=== PATIENT | female | born 1945 | race Caucasian/White ===

== ENCOUNTER → 2020-02-29 13:24 | Outpatient (BNV) | payer MEDICARE, SELFPAY | PROVIDERS: PCP Internal Medicine; Visit Provider Internal Medicine | DX: D64.9 Anemia, unspecified (principal); C50.411 Malignant neoplasm of upper-outer quadrant of right female breast; R79.89 Other specified abnormal findings of blood chemistry | CPT/HCPCS: 99212; 99213; 99214; 99215; 99442; G2211 ==

== ENCOUNTER 2020-03-08 16:06 | Outpatient (REF) | payer MEDICARE, SELFPAY ==
--- NOTE | 2020-03-08 | MM_ITS ---
EXAMINATION: MM SCREENING DIGITAL BREAST TOMOSYNTHESIS, BILATERAL CLINICAL INFORMATION: Screening. Asymptomatic. The lifetime risk of breast cancer based on the Tyrer-Cuzick Model is 6%. COMPARISON: Mammography: 01/09/2019, 01/07/2018, 12/25/2016, 07/01/2014 TECHNIQUE: Digital breast tomosynthesis is performed in both the craniocaudal and mediolateral oblique views along with computer-aided detection (CAD). Synthesized 2D images are generated from the tomosynthesis. FINDINGS: There are scattered areas of fibroglandular density (ACR BI-RADS breast composition Category b). Parenchymal pattern is similar to prior studies. There is no interval mass or architectural abnormality. Right retroareolar duct ectasia is stable from prior studies. There is no developing density. Scattered benign round predominantly dermal calcifications are again noted. The axilla and skin contours are unremarkable. MM/MM tomosynthesis screening BI IMPRESSION: No significant changes from prior studies. ASSESSMENT: BI-RADS 2: Benign RECOMMENDATION: Routine annual mammography screening. This patient's information was entered into a reminder system with a target due date for their next mammogram.
== END 2020-03-08 16:07 | disposition home or self-care (01) ==
LOC: HO.MAMMO 16:06
PROVIDERS: Visit Provider Internal Medicine
DX: Z12.31 Encounter for screening mammogram for malignant neoplasm of breast (principal)
CPT/HCPCS: 77063; 77067

== ENCOUNTER → 2020-04-12 13:32 | Outpatient (BNVA) | payer MEDICARE, SELFPAY | PROVIDERS: PCP Internal Medicine; Visit Provider Orthopaedic Surgery | DX: M75.42 Impingement syndrome of left shoulder (principal) | CPT/HCPCS: 20610; 99212; J1040 ==

== ENCOUNTER → 2020-04-26 13:09 | Outpatient (BNVA) | payer MEDICARE, SELFPAY | PROVIDERS: Visit Provider Orthopaedic Surgery | DX: M70.61 Trochanteric bursitis, right hip (principal) | CPT/HCPCS: 99212 ==

== ENCOUNTER 2020-05-26 15:00 | Outpatient (RCR) | payer MEDICARE, SELFPAY ==
--- NOTE | 2020-05-05 14:44 | MHC.PT.EP ---
[facility] [place] Office [place] Office [place] Office [address] Ute Lemons [address] [phone] F: [phone] F: [phone] F: [phone] F: [phone] Physical Therapy Plan of Care Date of Evaluation: 05/05/20 Date of Surgery: Diagnosis: This is a 74 yo female presenting to skilled PT with a script for trochanteric bursitis R hip. Assessment: This is a 74 yo female presenting to skilled PT with a script for trochanteric bursitis R hip. This patient is being seen [place] [facility] [place] for about 6 months. She has had R sided hip pain that travels down the lateral aspect of the leg into the lateral aspect of the calf on occasion. Pain is worse in the AM/getting out of the bed, lying on the R side, and transfers out of sitting after extended periods of time. Her pain is described as constant and achy. The patient reports that the MD dx'd her with bursitis and would like PT to try iontophoresis. If pain does not resolve they will try an injection. She is I in ADLs but has to use a straight cane now for ambulation and stability. Assessment reveals pain that ranges 2-6/10 with prolonged positioning. She demos slight impairments in lumbar ROM, decreased hip MMT (not due to pain), very tender along ITB and demos tight tissue at lateral hip. She is functionally limited with normal ambulation, transfers and lying on the R. She is a good candidate for skilled PT 2x/wk for 5wks. Frequency and Duration: The patient will be seen 2x/wk for 5wks Short Term Goals: I in HEP Patient's symptoms will centralize Will report/tolerate lying on her R side without pain at night Prison Goals: Demo WFL hip ROM and strength without pain Demo proper squatting techniques Report no pain with functional tasks including walking and stairs Improve LEFs by 10 points Will be able to ambulate without relying on cane Treatment Plan: Modalities to reduce pain, spasms and effusion. Manual therapy to restore motion and function. Therapeutic exercise to improve strength and flexibility. Neuromuscular re-education for posture and balance. Therapeutic activities to return to functional activities of daily living. Electronically signed by: Doreen Villasenor PT Please sign and return to therapist. Thank you for your referral.
--- NOTE | 2020-10-17 12:27 | MHC.PT.DC ---
[facility] [place] Office [place] Office [place] Office [address] Ute Lemons [address] [phone] F: [phone] F: [phone] F: [phone] F: [phone] Physical Therapy Discharge Report Diagnosis: This is a 74 yo female presenting to skilled PT with a script for trochanteric bursitis R hip. Date of Surgery: Date of Evaluation: 05/05/20 Date of Discharge: 10/17/20 Treatments to Date: 6 Cancellations to Date: 0 No Shows to Date: 0 Discharge Status: Improved Function Independent with HEP Patient Elected to Stop Recommend MD Follow-up Discharge Summary: We discussed how therapy has been helping and how she is feeling in general. She feels about 25% better but continues to have similar symptoms at times based on last tx note. I educated her that we will trial 2 more sessions and then refer back to MD for further evaluation and she is in agreement however patient did not return for further tx. DC to HEP Electronically signed by: Doreen Villasenor PT Please sign and return to therapist. Thank you for your referral.
== END 2020-10-17 12:28 | disposition home or self-care (01) ==
LOC: HO.PTCHIC 15:00
PROVIDERS: PCP Internal Medicine; Visit Provider Orthopaedic Surgery
DX: M70.61 Trochanteric bursitis, right hip (principal)
CPT/HCPCS: 97033; 97110; 97140; 97162

== ENCOUNTER → 2020-09-29 14:36 | Outpatient (BNVA) | payer MEDICARE, SELFPAY | PROVIDERS: PCP Internal Medicine; Visit Provider Internal Medicine Cardiovascular Disease | DX: R06.02 Shortness of breath (principal); I50.20 Unspecified systolic (congestive) heart failure; I42.9 Cardiomyopathy, unspecified; I10 Essential (primary) hypertension; Z79.899 Other long term (current) drug therapy | CPT/HCPCS: 93005; 99212 ==

== ENCOUNTER → 2020-10-11 12:52 | Outpatient (REF) | payer MEDICARE, SELFPAY ==
--- NOTE | 2020-10-11 12:55 | CA_ITS ---
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 The visually estimated ejection fraction is between 55-60%. - No obvious valvular pathology seen on this study. - Small pericardial effusion seen, most prominent posterior to the left ventricle. Findings Left Ventricle Normal left ventricular cavity size. There is normal left ventricular wall thickness. The left ventricular systolic function is normal. The visually estimated ejection fraction is between 55-60%. E/E prime ratio is >15, consistent with elevated filling pressures. Evidence suggests grade I (mild) diastolic dysfunction. Right Ventricle Normal right ventricular cavity size and systolic function. Atria Both atria are normal in size. Aortic Valve There is a normal trileaflet aortic valve. There is mild calcification of the aortic valve. There is no aortic valve stenosis. There is mild aortic valve regurgitation. Mitral Valve The mitral valve appears normal. There is trace mitral valve regurgitation. There is no mitral valve stenosis. Pulmonic Valve The pulmonic valve was not well visualized. Tricuspid Valve Normal tricuspid valve structure. There is trace tricuspid valve regurgitation. The pulmonary artery systolic pressure is normal. Great Vessels The asc aorta and aortic arch are normal in size. Venous The inferior vena cava is normal in size and collapses greater than 50% with inspiration. Pericardium/Pleural There are no definitive echocardiographic findings of tamponade physiology. Small pericardial effusion seen, most prominent posterior to the left ventricle. Prior Study Comparison Changes noted compared to prior study dated: 03/03/2019. LVEF improved. Pericardial effusion not previously described. Recommendations, Care & Conclusions No obvious valvular pathology seen on this study. Measurements M-Mode Liner Measurements Normals - Women/Men AOV Cusps: 1.70 1.5-2.6 cm/m2 2D Linear Measurements IVSd: 0.89 0.6-0.9/0.6-1.0 cm LVIDd: 5.12 3.9-5.3/4.2-5.9 cm LVIDd Index: 3.26 2.4-3.2/2.2-3.1 cm/m2 LVIDs: 4.18 2.0-3.6 cm LVPWd: 0.69 0.7-1.1 cm Ao Root: 3.40 2.1-3.5 cm LA Diam: 3.50 2.7-3.8/3.0-4.0 cm LAIDs Index: 2.23 1.5-2.3 cm/m2 LV Mass: 173.49 67-162/88-224 g LV Mass Index: 110.50 43-95/49-115 g/m2 LVOT Diam: 2.00 3.0+(-)1.3 cm 2D Systolic Function EF 4C: 56.80 >55% EF 2C: 57.40 >55% Mitral Valve MV Pk E: 0.63 MV PK A: 0.95 MV Decel Time: 336.00 E/A: 0.70 E'Lateral: 4.35 E'Medial: 3.92 E/E' Med: 16.10 E/E' Lat: 14.50 PHT: 99.00 MVA PHT: 2.22 Decel Kimble: 1.87 Aortic Valve AoV Pk Dex: 1.89 AoV Mn Dex: 1.39 AoV VTI: 0.42 AoV Pk Grad: 14.00 Aov Mn Grad: 8.00 LUCAS Cont.VTI: 1.34 AI Pk Dex: 4.85 AI Kimble: 2.32 LVOT LVOT Pk Dex: 0.87 LVOT Mn Dex: 0.58 LVOT VTI: 0.18 LVOT Pk Grad: 3.00 LVOT Mn Grad: 2.00 LVOT Diam: 2.00 LVOT Area: 3.14 Diastolic Function MV Pk E: 0.63 MV Pk A: 0.95 E/A: 0.70 E'Medial: 3.92 E/E' Med: 16.10 E' Laterial: 4.35 E/E' Lat: 14.50 Tricuspid Valve RA Press: 3.00 Great Vessels Aorta Ao Root-2D: 3.40 2.0-3.7 cm Ao Asc: 3.70 2.1-3.4 cm Ao Arch: 2.70 Pulmonary Valve PV Pk Dex: 1.06 Peak PV Grad: 4.00 Updated in Other Vendor System with Status of Final Alexander Matias MD electronically signed on 10/12/2020 8:15:42 AM with status of Final
== END ==
LOC: HO.CARD 12:52
PROVIDERS: Visit Provider Nurse Practitioner Family
DX: I42.9 Cardiomyopathy, unspecified (principal); R06.02 Shortness of breath
CPT/HCPCS: 93306

== ENCOUNTER → 2020-10-12 10:48 | Outpatient (BNVA) | payer MEDICARE, SELFPAY | PROVIDERS: Visit Provider Orthopaedic Surgery | DX: M70.61 Trochanteric bursitis, right hip (principal); M25.551 Pain in right hip; I11.0 Hypertensive heart disease with heart failure; I50.20 Unspecified systolic (congestive) heart failure; E11.65 Type 2 diabetes mellitus with hyperglycemia; E20.9 Hypoparathyroidism, unspecified; E89.0 Postprocedural hypothyroidism; Z90.49 Acquired absence of other specified parts of digestive tract; Z88.8 Allergy status to other drugs, medicaments and biological substances | CPT/HCPCS: 20610; 99212; J1040 ==

== ENCOUNTER → 2020-10-18 13:45 | Outpatient (BNVA) | payer MEDICARE, SELFPAY | PROVIDERS: PCP Internal Medicine; Visit Provider Nurse Practitioner Family | DX: Z13.89 Encounter for screening for other disorder (principal) | CPT/HCPCS: Q3014 ==

== ENCOUNTER 2021-01-24 15:33 | Emergency (ER) | payer MEDICARE, SELFPAY ==
--- NOTE | 2021-01-24 09:07 | ECG_ITS ---
Test Reason : WEAKNESS Blood Pressure : / mmHG Vent. Rate : 085 BPM Atrial Rate : 085 BPM P-R Int : 168 ms QRS Dur : 100 ms QT Int : 408 ms P-R-T Axes : -03 -18 124 degrees QTc Int : 485 ms Normal sinus rhythm Cannot rule out Anterior infarct , age undetermined ST & T wave abnormality, consider lateral ischemia Abnormal ECG When compared with ECG of 24-SEP-2017 11:31, Minimal criteria for Anterior infarct are now Present T wave inversion more evident in Lateral leads Referred By: Ysabel Tobias Electronically Signed By:NIRALI MO
[2021-01-24 15:55] VITALS: BP 124/52; PULSE 86; RESP 22; TEMP 37.5; O2SAT 94; BMI 24.5
[2021-01-24 16:06] VITALS: BP 124/52; PULSE 86; RESP 22; TEMP 37.5; O2SAT 93
--- NOTE | 2021-01-24 16:07 | ED_ITS ---
HPI - General Adult General Chief complaint: General Medical Stated complaint: fever Time Seen by Provider: 01/24/21 15:55 Source: patient Mode of arrival: ambulatory Limitations: no limitations History of Present Illness HPI narrative: 75-year-old female with history of hereditary spherocytosis and anemia requiring blood transfusion, cardiomyopathy with heart failure with reduced EF, hypertension who presents to the ER from Heme-Onc office with nausea vomiting and fever after she was transfused a unit of packed red blood cells. She reports that her lifetime she has gotten about 15 units of blood. The last unit of blood she got was back in April 2020. She never had an adverse reaction to transfusion in the past. She was getting ready to be discharged when she suddenly felt nauseous and vomited. She was noted to have a fever 101.5. She felt unwell and daughter reports she was pale. Tylenol and brought to the emergency room for further evaluation.. On arrival to the ER patient is feeling much better. Her temperature is 99 degrees. She is asking to eat and drink. She denies shortness of breath or chest pains. No rash or facial swelling. MD complaint: Vomiting and fever after blood transfusion. Onset (ago): minute(s) Radiation: non-radiation Severity: moderate Pain Consistency: intermittent Relieving factors: medication Exacerbating factors: none Associated symptoms: denies other symptoms Treatments prior to arrival: other (tylenol) Related Data Home Medications Medication Instructions Recorded Confirmed aspirin 81 mg tablet,delayed 81 mg PO DAILY 02/29/20 01/17/21 release cholecalciferol (vitamin D3) 50 50 mcg PO DAILY 02/29/20 01/17/21 mcg (2,000 unit) tablet (Vitamin D3) cyanocobalamin (vitamin B-12) 5,000 mcg PO BEDTIME 02/29/20 01/17/21 5,000 mcg disintegrating tablet folic acid 1 mg tablet 1 mg PO DAILY 02/29/20 01/17/21 levothyroxine 100 mcg tablet 100 mcg PO DAILY 02/29/20 01/17/21 vitamin E 400 unit tablet 450 mg PO DAILY 02/29/20 01/17/21 allopurinol 300 mg tablet 300 mg PO DAILY 09/29/20 01/17/21 carvedilol 6.25 mg tablet 6.25 mg PO BID 09/29/20 01/17/21 furosemide 20 mg tablet 20 mg PO DAILY tab 09/29/20 01/17/21 gabapentin 100 mg capsule 100 mg PO BID 09/29/20 01/17/21 lisinopril 10 mg tablet 10 mg PO DAILY 09/29/20 01/17/21 metformin 500 mg tablet 500 mg PO BID 09/29/20 01/17/21 rosuvastatin 20 mg tablet 20 mg PO BEDTIME 09/29/20 01/17/21 Allergies Allergy/AdvReac Type Severity Reaction Status Date / Time esomeprazole [From NEXIUM] Allergy Intermediate CHEST PAIN Verified 01/17/21 11:25 omeprazole [From PRILOSEC] Allergy Intermediate CHEST PAIN Verified 01/17/21 11:25 Review of Systems Review of Systems: Constitutional: + Fever, No Chills ENT/Mouth: No sore throat, No Rhinorrhea, No Swallowing Difficulty Cardiovascular: No Chest Pain, No SOB, No Orthopnea, No Edema Respiratory: No Cough, No Sputum, No Wheezing, No dyspnea Gastrointestinal: + Nausea, + Vomiting, No Diarrhea, No abdominal Pain, No Hematochezia, No Melena Genitourinary: No Dysuria, No Urinary Frequency, No Hematuria Musculoskeletal: No joint pain, No Myalgias Skin: No Skin Lesions, No rash Neuro: No Weakness, No Numbness, No Dizziness, No Headache Psych: No Anxiety/Panic, No Depression Heme/Lymph: No Bruising, No Lymphadenopathy PMFSH Past Medical History Medical History Cardiomyopathy Chronic anemia Diverticulosis GERD (gastroesophageal reflux disease) HFrEF (heart failure with reduced ejection fraction) HTN (hypertension) Hyperglycemia Hypoparathyroidism Irritable bowel syndrome Nephrolithiasis Normal colonoscopy Papillary thyroid carcinoma Polymyalgia rheumatica Pulmonary emboli Type 2 diabetes mellitus Surgical History H/O endoscopy H/O total thyroidectomy History of cholecystectomy Family History Family History Sister CHF (congestive heart failure) Daughter Breast cancer Son Kidney stones Social History Social History Alcohol intake: former Patient Tobacco Use Status: Former Tobacco user Cigarette Packs Per Day: 1 Advance Directives: No Advance Directives Information Provided: No Current occupation: Right Handed Physical Exam Vital Signs: Vital Signs: Last Vital Signs Temp 99.5 F 01/24/21 16:06 Pulse 86 01/24/21 16:06 Resp 22 H 01/24/21 16:06 BP 124/52 L 01/24/21 16:06 Pulse Ox 93 01/24/21 16:06 Body Mass Index 24.5 Appearance: Alert. Oriented X3. No acute distress. Eyes: Pupils equal, round and reactive to light. ENT: Pharynx normal. Neck: Normal inspection. Neck supple. CVS: Normal heart rate and rhythm. Pulses normal. Respiratory: No respiratory distress. Breath sounds normal. Abdomen: Soft and nontender. +BS x4 Skin: Skin warm and dry. Normal skin color. Normal skin turgor. No rashes. Extremities: No lower extremity edema. Neuro: Oriented X 3. No motor deficit. No sensory deficit. Course Course Course Narrative: 75-year-old female patient of Dr. Tse's with history of hereditary spherocytosis requiring intermittent blood transfusion who presents to the ER today with a transfusion reaction. She developed fever, nausea, vomi ting after her transfusion. She was treated with Tylenol. She is feeling much better. Will check basic lab workup and monitor. She is eating ice chips at this time and feels much better. Reevaluation(s) Reevaluation #1: H&H trended upward slightly after her blood transfusion. Her potassium level was noted to be low at 2.7 she has no U-waves are bradycardia on EKG. She has no further vomiting. Will replace with 60 mEq of oral potassium. 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 She was informed of the results and will follow-up with him tomorrow. They may want a repeat blood work tomorrow orat some point this week. Stable for discharge home. Case discussed with Dr. Yao. Medical Decision Making Lab Data Result diagrams: 01/24/21 16:27 01/24/21 16:27 Labs: Lab Results 01/24/21 01/24/21 01/24/21 Range/Units 16:19 16:27 16:27 WBC 5.1 (4.8-10.8) X10*3/uL RBC 2.62 L (4.20-5.50) X10*6/uL Hgb 9.1 L (12.0-16.0) g/dl Hct 25.9 L (37-47) % MCV 98.9 H (80-98) fL MCH 34.7 H (27.0-33.0) pg MCHC 35.1 H (31.0-35.0) g/dl RDW 13.5 (11.0-16.0) % Plt Count 130 L D (160-400) X10*3/uL MPV 8.9 L (9.4-12.3) fL Immature Gran % (Auto) 0.4 (0.0-0.4) % Neut % (Auto) 89.4 H (45-73) % Lymph % (Auto) 4.7 L (20-40) % [place] % (Auto) 4.1 (2-11) % Eos % (Auto) 1.4 (0-4) % Baso % (Auto) 0.0 (0-2) % Lymph # (Auto) 0.2 L (1.2-4.9) X10*3/uL [place] # (Auto) 0.2 (0.1-1.2) X10*3/uL Eos # (Auto) 0.1 (0.0-0.4) X10*3/uL Baso # (Auto) 0.0 (0.0-0.2) X10*3/uL Abs Immat Gran (auto) 0.02 (0.00-0.03) X10*3/uL Absolute Neuts (auto) 4.6 (2.0-8.3) X10*3/uL Absolute Nucleated RBC 0.000 (0.0-0.012) X10*3/uL Nucleated RBC % (auto) 0.0 (0.0-0.2) /100WBC Sodium 143 (135-145) mmol/L Potassium 2.7 L D (3.3-5.1) mmol/L Chloride 103 (96-108) mmol/L Carbon Dioxide 29 (22-29) mmol/L Anion Gap 14 (12-20) BUN 28 H (9-16) mg/dL Creatinine 1.39 (0.5-1.4) mg/dL Estim Creat Clear Calc 29.2 Estimated GFR 37 Random Glucose 184 H (60-115) mg/dL Calcium 9.2 (8.4-10.2) mg/dL Magnesium 1.6 (1.6-2.6) mg/dL Total Bilirubin 4.2 H (0.0-1.0) mg/dL Direct Bilirubin 0.6 H (0.0-0.5) mg/dL AST 17 (5-31) U/L ALT 14 (0-31) U/L Alkaline Phosphatase 45 (39-117) U/L Total Protein 6.3 L (6.5-8.0) g/dL Albumin 4.0 (3.5-5.0) g/dL COVID-19 (AD) Negative (Negative) COVID-19 Clin Com See Note Discharge Plan Discharge Clinical Impression: Acute hypokalemia Transfusion reaction Qualifiers: Encounter type: initial encounter Qualified Code(s): T80.92XA - Unspecified transfusion reaction, initial encounter Patient Disposition: Home, Self-Care Instructions: Hypokalemia (ED), Blood Transfusion Reactions (ED) Additional Instructions: Your potassium level was low at 2.7 today. You were given 60 mEq potassium replacement today which should bring your level back up to normal. Share this information with your Pattern Chain Builder tomorrow, they may want to repeat your electrolytes. If you develop recurrent vomiting, fevers, abdominal pain or any other concerning symptom come back to the ER for further evaluation. Prescriptions: No Action aspirin [Aspir-81] 81 mg Tablet,Delayed Release (Dr/Ec) 81 mg PO DAILY RF: 0 levothyroxine 100 mcg tablet 100 mcg PO DAILY RF: 0 vitamin E 400 unit Tablet 450 mg PO DAILY RF: 0 folic acid 1 mg Tablet 1 mg PO DAILY RF: 0 cholecalciferol (vitamin D3) [Vitamin D3] 50 mcg (2,000 unit) Tablet 50 mcg PO DAILY RF: 0 cyanocobalamin (vitamin B-12) 5,000 mcg Tablet,Disintegrating 5,000 mcg PO BEDTIME RF: 0 carvedilol 6.25 mg tablet 6.25 mg PO BID RF: 0 rosuvastatin 20 mg tablet 20 mg PO BEDTIME RF: 0 metformin 500 mg tablet 500 mg PO BID RF: 0 lisinopril 10 mg tablet 10 mg PO DAILY RF: 0 gabapentin 100 mg capsule 100 mg PO BID RF: 0 allopurinol 300 mg tablet 300 mg PO DAILY RF: 0 furosemide 20 mg tablet 20 mg PO DAILY RF: 0
[2021-01-24 16:31] LABS: MANUAL DIFF FLAG NO
[2021-01-24 16:34] LABS: Eosinophils Absolute Auto 0.1 X10*3/uL (0.0-0.4); Eosinophils Percent Auto 1.4 % (0-4); Hematocrit 25.9 % (37-47); Hemoglobin 9.1 g/dl (12.0-16.0); Imm Gran Abs Auto 0.02 X10*3/uL (0.00-0.03); Imm Gran Pct Auto 0.4 % (0.0-0.4); Lymphocytes Absolute Auto 0.2 X10*3/uL (1.2-4.9); Lymphocytes Percent Auto 4.7 % (20-40); Mean Corpuscular HGB Conc 35.1 g/dl (31.0-35.0); Mean Corpuscular Hemoglobin 34.7 pg (27.0-33.0); Mean Corpuscular Volume 98.9 fL (80-98); Mean Platelet Volume 8.9 fL (9.4-12.3); Monocytes Absolute Auto 0.2 X10*3/uL (0.1-1.2); Monocytes Percent Auto 4.1 % (2-11); Neutrophils Absolute Auto 4.6 X10*3/uL (2.0-8.3); Neutrophils Percent Auto 89.4 % (45-73); Platelet Count 130 X10*3/uL (160-400); Red Blood Count 2.62 X10*6/uL (4.20-5.50); Red Cell Distribution Width 13.5 % (11.0-16.0); White Blood Count 5.1 X10*3/uL (4.8-10.8)
[2021-01-24 16:51] LABS: COVID-19 Test Negative (Negative)
[2021-01-24 17:07] LABS: Alanine Aminotransferase 14 U/L (0-31); Alkaline Phosphatase 45 U/L (39-117); Anion Gap 14 (12-20); Aspartate Amino Transferase 17 U/L (5-31); Bilirubin Direct 0.6 mg/dL (0.0-0.5); Bilirubin Total 4.2 mg/dL (0.0-1.0); Blood Urea Nitrogen 28 mg/dL (9-16); Calcium 9.2 mg/dL (8.4-10.2); Carbon Dioxide 29 mmol/L (22-29); Chloride 103 mmol/L (96-108); Creatinine Clr Calc Pharmacy 29.2; Estimated Glomerular Filt Rate 37; Glucose Random 184 mg/dL (60-115); Magnesium 1.6 mg/dL (1.6-2.6); Potassium 2.7 mmol/L (3.3-5.1); Sodium 143 mmol/L (135-145); Total Protein 6.3 g/dL (6.5-8.0)
[2021-01-24] MEDS: Potassium Chloride ER 20 MEQ TAB.ER.PRT 60 MEQ PO (17:31)
== END 2021-01-24 17:44 | disposition home or self-care (01) ==
PROVIDERS: Physician Assistant; Emergency Provider Emergency Medicine
DX: E23.2 Diabetes insipidus (principal); R50.9 Fever, unspecified; R07.9 Chest pain, unspecified; R11.10 Vomiting, unspecified; Z20.822 Contact with and (suspected) exposure to COVID-19; Z79.899 Other long term (current) drug therapy; Z87.891 Personal history of nicotine dependence
CPT/HCPCS: 36415; 80048; 80076; 83735; 85025; 87635; 93005; 99283

== ENCOUNTER → 2021-01-25 10:49 | Outpatient (BNVA) | payer MEDICARE, SELFPAY | PROVIDERS: PCP Internal Medicine; Visit Provider Nurse Practitioner Family | DX: I50.20 Unspecified systolic (congestive) heart failure (principal); I42.9 Cardiomyopathy, unspecified; I10 Essential (primary) hypertension; R06.02 Shortness of breath | CPT/HCPCS: 99212 ==

== ENCOUNTER 2021-02-07 10:48 | Outpatient (REF) | payer MEDICARE, SELFPAY ==
[2021-02-07 12:06] LABS: Estimated Average Glucose 123 mg/dL; Hemoglobin A1c % 5.9 %
[2021-02-07 12:13] LABS: Anion Gap 14 (12-20); Blood Urea Nitrogen 23 mg/dL (9-16); Calcium 9.6 mg/dL (8.4-10.2); Carbon Dioxide 27 mmol/L (22-29); Chloride 104 mmol/L (96-108); Estimated Glomerular Filt Rate 34; Glucose Random 111 mg/dL (60-115); Sodium 141 mmol/L (135-145)
[2021-02-07 12:14] LABS: Alanine Aminotransferase 29 U/L (0-31); Albumin Level 4.2 g/dL (3.5-5.0); Alkaline Phosphatase 51 U/L (39-117); Anion Gap 14 (12-20); Aspartate Amino Transferase 23 U/L (5-31); Bilirubin Total 1.4 mg/dL (0.0-1.0); Blood Urea Nitrogen 23 mg/dL (9-16); Calcium 9.6 mg/dL (8.4-10.2); Carbon Dioxide 28 mmol/L (22-29); Chloride 104 mmol/L (96-108); Cholesterol 109 mg/dL; Estimated Glomerular Filt Rate 34; Glucose Fasting 110 mg/dL (60-99); HDL Cholesterol 27 mg/dL; Iron 113 mcg/dL (30-160); LDL Cholesterol Calculated 22 mg/dl; Percent Iron Saturation 36 % (15-50); Potassium 3.8 mmol/L (3.3-5.1); Sodium 142 mmol/L (135-145); Total Iron Binding Capacity 315 mcg/dL (228-428); Total Protein 6.8 g/dL (6.5-8.0); Triglycerides 300 mg/dL; Unsaturated Iron Binding 202 ug/dL; Uric Acid 4.2 mg/dL (2.4-5.7)
[2021-02-07 12:16] LABS: B Type Natriuretic Peptide 102 pg/mL (<100)
[2021-02-07 12:36] LABS: Ferritin 685 ng/mL (10-250); Thyroid Stimulating Hormone 0.67 uIU/mL (0.32-4.0); Vitamin D 25-OH Total 40.5 ng/mL (>30)
[2021-02-07 12:50] LABS: Folate > 20.0 ng/mL (> or = 4.0); Vitamin B12 1480 pg/mL (200-900)
[2021-02-07 14:14] LABS: Appearance Urine CLOUDY; Color Urine YELLOW; Glucose Urine UA NEG (NEG); Leukocyte Esterase Urine 2+ (NEG); Nitrite Urine NEG (NEG); Urine Blood 1+ (NEG); Urine Ketones NEG (NEG); Urine Protein 2+ MG/DL (NEG-TRACE)
[2021-02-07 14:23] LABS: WBC Urine TNTC /HPF (0-4)
[2021-02-07 14:24] LABS: Bacteria Urine 3+ /LPF; Squamous Epithelial Cell Urine 3+ /LPF
[2021-02-07 14:35] LABS: Creatinine Urine 116.91 mg/dL; Microalbum/Creatinine Ratio Ur 419.9 ug/mg cr
== END 2021-02-07 10:49 | disposition home or self-care (01) ==
LOC: HO.HMGCLDS 10:48
PROVIDERS: PCP Internal Medicine; Visit Provider Nurse Practitioner Family
DX: E11.29 Type 2 diabetes mellitus with other diabetic kidney complication (principal); D50.0 Iron deficiency anemia secondary to blood loss (chronic); E89.0 Postprocedural hypothyroidism; I11.0 Hypertensive heart disease with heart failure; I50.22 Chronic systolic (congestive) heart failure; I25.10 Atherosclerotic heart disease of native coronary artery without angina pectoris; M10.072 Idiopathic gout, left ankle and foot
CPT/HCPCS: 36415; 80048; 80053; 80061; 81001; 82043; 82306; 82607; 82728; 82746; 83036; 83540; 83880; 84443; 84550

== ENCOUNTER 2021-04-27 11:49 | Outpatient (REF) | payer MEDICARE, SELFPAY ==
--- NOTE | ~2021-04-27 | MM_ITS ---
EXAMINATION: MM SCREENING DIGITAL BREAST TOMOSYNTHESIS, BILATERAL CLINICAL INFORMATION: Screening. Asymptomatic. The lifetime risk of breast cancer based on the Tyrer-Cuzick Model is 5.6%. COMPARISON: Mammography: March 08, 2020 and studies going back to June 10, 2013 TECHNIQUE: Digital breast tomosynthesis is performed in both the craniocaudal and mediolateral oblique views along with computer-aided detection (CAD). Synthesized 2D images are generated from the tomosynthesis. FINDINGS: There are scattered areas of fibroglandular density (ACR BI-RADS breast composition Category b). There are no significant masses, abnormal calcifications, or other abnormalities. MM/MM tomosynthesis screening BI IMPRESSION: There are no significant changes from prior study. ASSESSMENT: BI-RADS 1: Negative RECOMMENDATION: Routine annual mammography screening. This patient's information was entered into a reminder system with a target due date for their next mammogram.
== END 2021-04-27 11:50 | disposition home or self-care (01) ==
LOC: HO.MAMMO 11:49
PROVIDERS: Visit Provider Internal Medicine
DX: Z12.31 Encounter for screening mammogram for malignant neoplasm of breast (principal)
CPT/HCPCS: 77063; 77067

== ENCOUNTER → 2021-05-09 12:19 | Outpatient (BNVA) | payer MEDICARE, SELFPAY | PROVIDERS: PCP Internal Medicine; Visit Provider Internal Medicine Cardiovascular Disease | DX: I50.20 Unspecified systolic (congestive) heart failure (principal); Z79.899 Other long term (current) drug therapy; Z86.79 Personal history of other diseases of the circulatory system | CPT/HCPCS: 99212 ==

== ENCOUNTER 2021-10-05 11:59 | Outpatient (REF) | payer MEDICARE, SELFPAY ==
[2021-10-05 13:44] LABS: MANUAL DIFF FLAG NO
[2021-10-05 14:03] LABS: Basophils Percent Auto 0.8 % (0-2); Eosinophils Absolute Auto 0.3 X10*3/uL (0.0-0.4); Eosinophils Percent Auto 5.9 % (0-4); Hematocrit 24.1 % (37.0-47.0); Hemoglobin 7.9 g/dl (12.0-16.0); Imm Gran Abs Auto 0.01 X10*3/uL (0.00-0.03); Imm Gran Pct Auto 0.2 % (0.0-0.4); Lymphocytes Absolute Auto 1.5 X10*3/uL (1.2-4.9); Lymphocytes Percent Auto 29.3 % (20-40); Mean Corpuscular HGB Conc 32.8 g/dl (31.0-35.0); Mean Corpuscular Hemoglobin 34.6 pg (27.0-33.0); Mean Corpuscular Volume 105.7 fL (80.0-98.0); Mean Platelet Volume 9.4 fL (9.4-12.3); Monocytes Absolute Auto 0.7 X10*3/uL (0.1-1.2); Monocytes Percent Auto 12.5 % (2-11); Neutrophils Absolute Auto 2.7 x10*3/uL (2.0-8.3); Neutrophils Percent Auto 51.3 % (45-73); Platelet Count 211 X10*3/uL (160-400); Red Blood Count 2.28 X10*6/uL (4.20-5.50); Red Cell Distribution Width 13.3 % (11.0-16.0); White Blood Count 5.2 X10*3/uL (4.8-10.8)
[2021-10-05 14:08] LABS: Estimated Average Glucose 131 mg/dL; Hemoglobin A1c % 6.2 %
[2021-10-05 14:17] LABS: Alanine Aminotransferase 19 U/L (0-31); Albumin Level 4.1 g/dL (3.5-5.0); Alkaline Phosphatase 47 U/L (39-117); Anion Gap 15 (12-20); Aspartate Amino Transferase 17 U/L (5-31); Blood Urea Nitrogen 24 mg/dL (9-16); Calcium 9.4 mg/dL (8.4-10.2); Carbon Dioxide 29 mmol/L (22-29); Chloride 102 mmol/L (96-108); Estimated Glomerular Filt Rate 39; Glucose Fasting 109 mg/dL (60-99); Sodium 142 mmol/L (135-145); Total Protein 6.8 g/dL (6.5-8.0)
[2021-10-05 14:37] LABS: Thyroid Stimulating Hormone 0.31 uIU/mL (0.32-4.0)
== END 2021-10-05 12:00 | disposition home or self-care (01) ==
LOC: HO.HMGCLDS 11:59
PROVIDERS: PCP Internal Medicine; Visit Provider Internal Medicine
DX: E11.29 Type 2 diabetes mellitus with other diabetic kidney complication (principal); D50.0 Iron deficiency anemia secondary to blood loss (chronic); E89.0 Postprocedural hypothyroidism; I25.10 Atherosclerotic heart disease of native coronary artery without angina pectoris; I50.22 Chronic systolic (congestive) heart failure; M10.072 Idiopathic gout, left ankle and foot
CPT/HCPCS: 36415; 80053; 83036; 84443; 85025

== ENCOUNTER → 2021-11-09 12:33 | Outpatient (BNVA) | payer MEDICARE, SELFPAY | PROVIDERS: PCP Internal Medicine; Referring Provider Internal Medicine; Visit Provider Nurse Practitioner Family | DX: I11.0 Hypertensive heart disease with heart failure (principal); I50.20 Unspecified systolic (congestive) heart failure; D64.9 Anemia, unspecified; Z86.79 Personal history of other diseases of the circulatory system | CPT/HCPCS: 99212 ==

== ENCOUNTER 2022-05-03 11:48 | Outpatient (REF) | payer MEDICARE, SELFPAY ==
--- NOTE | ~2022-05-03 | MM_ITS ---
EXAMINATION: MM SCREENING DIGITAL BREAST TOMOSYNTHESIS, BILATERAL CLINICAL INFORMATION: Screening. Asymptomatic. The lifetime risk of breast cancer based on the Tyrer-Cuzick Model is 5.2%. COMPARISON: Mammography: April 27, 2021 and studies dating back to July 01, 2014 TECHNIQUE: Digital breast tomosynthesis is performed in both the craniocaudal and mediolateral oblique views along with computer-aided detection (CAD). Synthesized 2D images are generated from the tomosynthesis. FINDINGS: There are scattered areas of fibroglandular density (ACR BI-RADS breast composition Category b). There are no significant masses, abnormal calcifications, or other abnormalities. MM/MM tomosynthesis screening BI IMPRESSION: No significant changes ASSESSMENT: BI-RADS 1: Negative RECOMMENDATION: Routine annual mammography screening. This patient's information was entered into a reminder system with a target due date for their next mammogram.
== END 2022-05-03 11:49 | disposition home or self-care (01) ==
LOC: HO.MAMMO 11:48
PROVIDERS: PCP Internal Medicine; Visit Provider Internal Medicine
DX: Z12.31 Encounter for screening mammogram for malignant neoplasm of breast (principal)
CPT/HCPCS: 77063; 77067

== ENCOUNTER → 2022-05-23 11:25 | Outpatient (BNVA) | payer MEDICARE, SELFPAY | PROVIDERS: PCP Internal Medicine; Referring Provider Internal Medicine; Visit Provider Internal Medicine Cardiovascular Disease | DX: R06.02 Shortness of breath (principal); I50.20 Unspecified systolic (congestive) heart failure | CPT/HCPCS: 93005; 99212 ==

== ENCOUNTER → 2022-06-12 12:52 | Outpatient (REF) | payer MEDICARE, SELFPAY ==
--- NOTE | 2022-06-12 12:55 | CA_ITS ---
Transthoracic Echocardiogram Patient (Last, First, Middle): Tonia Hernandez, Gender: Female Date of : 1945 Age: 76 Procedure Date: 06/12/2022 Procedure Type: Transthoracic Echocardiogram Location: OP Height: 154.94 cm Weight: 58.06 kg BSA: 1.56 m2 Heart Rate: 62 bpm BP: 106 / 54 mmHg Predatory Animal Exterminator: SB Referring MD: Helio Comer MD Symptoms: I50.20 - Unspecified systolic (congestive) heart failure Study Quality: Adequate ECG Rhythm: Sinus Conclusions: - The left ventricular systolic function is mildly decreased. The calculated ejection fraction is 43% by biplane method. - There is mild calcification of the aortic valve. - There is a small loculated pericardial effusion overlying the left ventricle. Findings Left Ventricle Normal left ventricular cavity size. The left ventricular systolic function is mildly decreased. The calculated ejection fraction is 43% by biplane method. There is mild global hypokinesis. E/E prime ratio is between 8 and 15 consistent with indeterminate filling pressures. Evidence suggests grade I (mild) diastolic dysfunction. There is mild septal asymmetric hypertrophy. LV peak GLS -9.9%. Right Ventricle Normal right ventricular cavity size. There is mildly decreased right ventricular systolic function. Atria The left atrium is moderately dilated. The right atrium is normal in size. Aortic Valve There is a normal trileaflet aortic valve. There is mild calcification of the aortic valve. There is no aortic valve stenosis. There is mild aortic valve regurgitation. Mitral Valve There is no mitral valve regurgitation. There is no mitral valve stenosis. Mild thickening/calcification of leaflets. Pulmonic Valve There is trace pulmonic valve regurgitation. Tricuspid Valve There is trace tricuspid valve regurgitation. There is no evidence of pulmonary hypertension. Great Vessels The asc aorta is normal in size. Venous The inferior vena cava is normal in size and collapses greater than 50% with inspiration. Pericardium/Pleural There is a small loculated pericardial effusion overlying the left ventricle. Prior Study Comparison Changes noted compared to prior study dated: 10/11/2020. Decrease in LVEF, but similar to older studies. Measurements 2D Linear Measurements IVSd: 1.07 0.6-0.9/0.6-1.0 cm LVIDd: 4.91 3.9-5.3/4.2-5.9 cm LVIDd Index: 3.15 2.4-3.2/2.2-3.1 cm/m2 LVIDs: 4.06 2.0-3.6 cm LVPWd: 0.77 0.7-1.1 cm LA Diam: 4.50 2.7-3.8/3.0-4.0 cm LAIDs Index: 2.88 1.5-2.3 cm/m2 LV Mass: 196.32 67-162/88-224 g LV Mass Index: 125.84 43-95/49-115 g/m2 LVOT Diam: 2.20 3.0+(-)1.3 cm 2D Systolic Function EF 4C: 43.70 >55% EF 2C: 39.30 >55% EF BiP: 42.60 >55% Mitral Valve MV Pk E: 0.51 MV PK A: 0.81 MV Decel Time: 240.00 E/A: 0.60 E'Lateral: 5.00 E'Medial: 3.26 E/E' Med: 15.60 E/E' Lat: 10.20 PHT: 70.00 MVA PHT: 3.14 Decel [place]: 2.12 Aortic Valve AoV Pk Dex: 1.48 AoV Mn Dex: 1.00 AoV VTI: 0.27 AoV Pk Grad: 9.00 Aov Mn Grad: 5.00 LUCAS Cont.VTI: 2.34 AI Pk Dex: 4.15 AI [place]: 1.63 LVOT LVOT Pk Dex: 0.81 LVOT Mn Dex: 0.56 LVOT VTI: 0.17 LVOT Pk Grad: 3.00 LVOT Mn Grad: 2.00 LVOT Diam: 2.20 LVOT Area: 3.80 Diastolic Function MV Pk E: 0.51 MV Pk A: 0.81 E/A: 0.60 E'Medial: 3.26 E/E' Med: 15.60 E' Laterial: 5.00 E/E' Lat: 10.20 Right Ventricle TAPSE (mm): 15.10 TVS' Dex: 9.00 Tricuspid Valve TR Pk Dex: 1.81 TR Pk Grad: 13.00 RA Press: 3.00 RVSP: 16.00 Great Vessels Aorta Sinus of Valsalva: 3.50 2.0-3.5 cm Ao Asc: 3.90 2.1-3.4 cm Ao Arch: 2.70 Ao Desc: 2.30 Pulmonary Valve PV Pk Dex: 0.97 Peak PV Grad: 4.00 Updated in Other Vendor System with Status of Final Alexander Matias MD electronically signed on 06/13/2022 12:05:15 PM with status of Final
== END ==
LOC: HO.CARD 12:52
PROVIDERS: PCP Internal Medicine; Visit Provider Internal Medicine Cardiovascular Disease
DX: I50.20 Unspecified systolic (congestive) heart failure (principal)
CPT/HCPCS: 93306; 93356

== ENCOUNTER → 2022-06-14 09:51 | Outpatient (REF) | payer MEDICARE, SELFPAY ==
--- NOTE | ~2022-06-14 | NM_ITS ---
Lexiscan Myocardial perfusion study Indication: Congestive heart failure, assess for coronary disease and ischemia Technique: The patient was brought in for a Lexiscan perfusion study on 06/14/2022 and was injected 0.4 mg of Lexiscan intravenously. Within a minute of this injection 25 mCi of sestamibi was given intravenously. Images were obtained using the SPECT gamma camera interlaced with the gating device. Images were obtained in supine position. Resting perfusion study was performed on 06/20/2022. Patient was administered 25 mCi of sestamibi intravenously at rest. Images were then obtained in supine position. Total DLP 100mGy-cm. Images were processed with the software and compared side to side in short axis, horizontal long axis and vertical long axis views. Findings: Raw acquisition reviewed. Both arms by the patient's side during stress. The stress perfusion study showed there is diminished tracer uptake in the apical anterior wall, adjacent apex, apical inferolateral wall, apical septum. There is some improvement with CT attenuation correction but the defects don't resolve completely. The gated study shows normal LV systolic function with calculated LVEF of 58%. LV cavity is normal in size. The gated study shows normal wall thickening and contraction of segments. Resting study shows minimally reduced tracer uptake in the distal part of anterior wall. There is slight worsening with CT attenuation correction and hence most likely artifactual. Gating at rest reveals normal wall motion with ejection fraction at 55%. The findings are consistent with mild to moderate reversible defects in the apical part of anterior septum, anterior wall, apex, adjacent lateral/inferolateral wall. NM/NM michael perf SPECT rest & str Impression: 1. Myocardial perfusion imaging study shows mild to moderate intensity reversible defects in the apical part of anterior septum, anterior wall, apex, adjacent lateral/inferolateral wall. Could be related to ischemia. Less likely artifactual. 2. Gated LVEF is 58% during stress and 55% during rest. 3. Transient ischemic dilatation not present. EKG component of the test reported separately.
--- NOTE | 2022-06-14 09:54 | CA_ITS ---
Acquisition Time: 2022-06-14 10:13:38 Total Exercise Time: 00:02:00 Test Indications: SOB Medications: Protocol: LEXISCAN Max HR: 075 BPM 51% of Pred: 145 BPM Max BP: 100/046 mmHG Max Work Load: 1.0 METS Pharmacological stress test using Lexiscan,while sitting. Aminophyline 50 mg used to reverse sx of weakness, dizziness,. Pt's BP went down to 78 systoloc Fluids IV given BP up to 98/44. Occ. isolated PVC's, Nuclear images to follow. Test reviewed with Dr. Comer Referred By: Helio Comer Overread By: Hilda Caro NP
== END ==
LOC: HO.CARD 09:51
PROVIDERS: PCP Internal Medicine; Visit Provider Internal Medicine Cardiovascular Disease
DX: R06.02 Shortness of breath (principal)
CPT/HCPCS: 78452; 93017; A9500; J0280; J2785

== ENCOUNTER 2022-06-26 14:00 | Outpatient (RCR) | payer MEDICARE, SELFPAY ==
[2022-05-02 15:05] VITALS: BP 105/75
--- NOTE | 2022-05-02 16:20 | MHC.PT.EP ---
[facility] [place] Office [place] Office [place] Office [address] Ute Lemons [address] [phone] F: [phone] F: [phone] F: [phone] F: [phone] Physical Therapy Plan of Care Date of Evaluation: Date of Surgery: Diagnosis: B LE Peripheral Neuropathy Assessment: Pt is a 76 y/o female referred to PT for eval ant treat of B peripheral neuropathy resulting in decreased tolerance for walking, standing, negotiating stairs and curbs, performing HH chores and squatting activities secondary to decreased B LE strength, moderate increased B LE tissue tension, gait abnormality, neuropathy of B LEs and pain. Pt is deemed an appropriate candidate to receive skilled PT services to address their physical impairments in order to improve their functional ability. Frequency and Duration: The patient will be seen 2 x/ wk x 5 wks. Short Term Goals: Initiate HEP. Improve baseline pain to 1-5/10, initial 2-8/10. Clean Up Worker Goals: I with home program. Improve B knee extension MMT by at least 1/2 MMT grade: initial: R 4+/5, L 4/5 Improve Dynamic gait index assessment by at least 3 points in order to demonstrate improvement in ambulatory safety. Pt will be able to maintain staggered stance balance unsupported x 20 sec; initial: unable to maintain. Treatment Plan: Modalities to reduce pain, spasms and effusion. Manual therapy to restore motion and function. Therapeutic exercise to improve strength and flexibility. Neuromuscular re-education for posture and balance. Therapeutic activities to return to functional activities of daily living. Electronically signed by: Yair Kaiser PT Please sign and return to therapist. Thank you for your referral.
--- NOTE | 2022-06-26 19:07 | MHC.PT.DC ---
[facility] [place] [facility] [place] [facility] [place] [facility] [address] [place]te Lemons [address] [phone] F: [phone] F: [phone] F: [phone] F: [phone] Physical Therapy Discharge Report Diagnosis: B LE Peripheral Neuropathy Date of Surgery: Date of Evaluation: 05/02/22 Date of Discharge: 06/26/22 Treatments to Date: 9 Cancellations to Date: No Shows to Date: Discharge Status: Improved Function Independent with HEP Discharge Summary: Tonia has been an active participant in her therapy in the clinic with inconsistent home program compliance. She is I with her program and is improved of her LE strength and balance though her neuropathy continues to provide a challenge for her balance. Electronically signed by: Yair Kaiser PT. Please sign and return to therapist. Thank you for your referral.
== END 2022-06-26 19:08 | disposition home or self-care (01) ==
LOC: HO.PTCHIC 14:00
PROVIDERS: PCP Internal Medicine; Visit Provider Psychiatry & Neurology Neurology
DX: G62.9 Polyneuropathy, unspecified (principal)
CPT/HCPCS: 97110; 97112; 97162; 97530

== ENCOUNTER 2022-09-20 12:16 | Outpatient (REF) | payer MEDICARE, SELFPAY ==
--- NOTE | ~2022-09-20 | XR_ITS ---
EXAMINATION: XR PELVIS CLINICAL INFORMATION: Hip pain COMPARISON: None available. TECHNIQUE: AP view of the pelvis. FINDINGS: There is normal symmetry of bilateral hip joints without any bony erosive changes, loose bodies are seen enthesophytes. The SI joints are stable. There is mild tilting of the pelvis of the left fifth likely dextroscoliosis of lumbar spine. No fracture or subluxation seen. XR/XR pelvis 1-2V IMPRESSION: 1. Unremarkable AP pelvis exam. 2. There is mild tilting of the pelvis to left side with likely dextroscoliosis of lumbar spine.
== END 2022-09-20 12:17 | disposition home or self-care (01) ==
LOC: HO.HOSX 12:16
PROVIDERS: Visit Provider Orthopaedic Surgery
DX: M70.61 Trochanteric bursitis, right hip (principal); M47.816 Spondylosis without myelopathy or radiculopathy, lumbar region; M70.62 Trochanteric bursitis, left hip; E11.9 Type 2 diabetes mellitus without complications
CPT/HCPCS: 20610; 72170; 99212; J1100

== ENCOUNTER 2022-09-26 14:09 | Outpatient (REF) | payer MEDICARE, SELFPAY ==
[2022-09-26 16:33] LABS: MANUAL DIFF FLAG NO
[2022-09-26 17:48] LABS: Basophils Percent Auto 0.4 % (0-2); Eosinophils Absolute Auto 0.3 X10*3/uL (0.0-0.4); Eosinophils Percent Auto 3.7 % (0-4); Hematocrit 22.2 % (37.0-47.0); Hemoglobin 7.4 g/dl (12.0-16.0); Imm Gran Abs Auto 0.03 X10*3/uL (0.00-0.03); Imm Gran Pct Auto 0.4 % (0.0-0.4); Lymphocytes Absolute Auto 1.4 X10*3/uL (1.2-4.9); Lymphocytes Percent Auto 19.6 % (20-40); Mean Corpuscular HGB Conc 33.3 g/dl (31.0-35.0); Mean Corpuscular Hemoglobin 36.3 pg (27.0-33.0); Mean Corpuscular Volume 108.8 fL (80.0-98.0); Mean Platelet Volume 9.8 fL (9.4-12.3); Monocytes Absolute Auto 0.8 X10*3/uL (0.1-1.2); Monocytes Percent Auto 10.9 % (2-11); Neutrophils Absolute Auto 4.8 x10*3/uL (2.0-8.3); Platelet Count 207 X10*3/uL (160-400); Red Blood Count 2.04 X10*6/uL (4.20-5.50); Red Cell Distribution Width 13.6 % (11.0-16.0); White Blood Count 7.3 X10*3/uL (4.8-10.8)
[2022-09-26 17:50] LABS: Appearance Urine Cloudy; Color Urine Yellow; Glucose Urine UA Negative (Negative); Leukocyte Esterase Urine Moderate (2+) (Negative); Nitrite Urine Negative (Negative); PH 5.5 (5.0-9.0); UMIC TRIGGER UA YES; Urine Blood Trace (Negative); Urine Ketones Negative (Negative); Urine Protein 100 (2+) mg/dL (Neg-Trace)
[2022-09-26 17:57] LABS: Microalbum/Creatinine Ratio Ur 236.6 ug/mg cr
[2022-09-26 18:01] LABS: Bacteria Urine 4+ (None Seen); RBC Urine 0-2 /HPF (0-2); Squamous Epithelial Cell Urine 0-2 /HPF (0-2); WBC Urine >50 /HPF (0-5)
[2022-09-26 18:33] LABS: Alanine Aminotransferase 37 U/L (0-31); Albumin Level 4.1 g/dL (3.5-5.0); Alkaline Phosphatase 46 U/L (39-117); Anion Gap 15 (12-20); Aspartate Amino Transferase 22 U/L (5-31); Bilirubin Total 1.1 mg/dL (0.0-1.0); Blood Urea Nitrogen 30 mg/dL (9-16); Calcium 9.5 mg/dL (8.4-10.2); Carbon Dioxide 28 mmol/L (22-29); Chloride 104 mmol/L (96-108); Estimated Glomerular Filt Rate 24; Glucose Random 186 mg/dL (60-115); Potassium 3.6 mmol/L (3.3-5.1); Sodium 143 mmol/L (135-145); Thyroid Stimulating Hormone 2.82 uIU/mL (0.32-4.0); Total Protein 6.8 g/dL (6.5-8.0)
[2022-09-26 18:53] LABS: Uric Acid 3.6 mg/dL (2.4-5.7)
[2022-09-27 05:19] LABS: Estimated Average Glucose 128 mg/dL; Hemoglobin A1c % 6.1 %
== END 2022-09-26 14:10 | disposition home or self-care (01) ==
LOC: HO.HMGCLDS 14:09
PROVIDERS: PCP Internal Medicine; Visit Provider Internal Medicine
DX: E11.29 Type 2 diabetes mellitus with other diabetic kidney complication (principal); D50.0 Iron deficiency anemia secondary to blood loss (chronic); E89.0 Postprocedural hypothyroidism; M10.072 Idiopathic gout, left ankle and foot; I25.10 Atherosclerotic heart disease of native coronary artery without angina pectoris; I50.22 Chronic systolic (congestive) heart failure; N28.9 Disorder of kidney and ureter, unspecified
CPT/HCPCS: 36415; 80053; 81001; 82043; 83036; 84443; 84550; 85025; 87086; 87088; 87186

== ENCOUNTER → 2022-10-11 12:22 | Outpatient (BNVA) | payer MEDICARE, SELFPAY | PROVIDERS: PCP Internal Medicine; Visit Provider Orthopaedic Surgery | DX: M70.72 Other bursitis of hip, left hip (principal); M70.71 Other bursitis of hip, right hip; M35.3 Polymyalgia rheumatica; E11.9 Type 2 diabetes mellitus without complications | CPT/HCPCS: 20610; 99212; J1100 ==

== ENCOUNTER 2022-11-20 13:26 | Outpatient (AMB) | payer MEDICARE, SELFPAY ==
[2022-11-20 13:28] VITALS: BP 102/66; PULSE 69; BMI 26.0
--- NOTE | 2022-11-20 13:28 | MHC.OFFVIS ---
Intake Vital Signs 11/20/22 13:28 Height 5 ft 1 in Weight 137 lb 9.095 oz BMI 26.0 BP 102/66 Blood Pressure Location Lt brachial Position Sitting Pulse 69 Pulse Source Pulse Oximeter Intake Visit Reasons: 6 mth f/ up after testing Intake Note: 6 month follow up after testing. Degreaser Required: No Accompanied by: Self / Same As Patient Allergies esomeprazole [From NEXIUM] Allergy (Intermediate, Verified 11/20/22 13:30) CHEST PAIN omeprazole [From PRILOSEC] Allergy (Intermediate, Verified 11/20/22 13:30) CHEST PAIN Medication List - Last Reconciled 11/20/22 by Helio Comer MD allopurinol 300 mg PO DAILY aspirin 81 mg PO DAILY carvedilol 6.25 mg PO BID cholecalciferol (vitamin D3) (Vitamin D3) 50 mcg PO DAILY cranberry 500 mg PO DAILY cyanocobalamin (vitamin B-12) 5,000 mcg PO BEDTIME d-mannose (AZO D-Mannose) 500 mg PO DAILY folic acid 1 mg PO DAILY furosemide 20 mg PO DAILY gabapentin 100 mg PO DAILY isosorbide mononitrate ER 30 mg PO DAILY levothyroxine 100 mcg PO DAILY lisinopril (Zestril) 5 mg PO DAILY metformin 500 mg PO BID rosuvastatin 20 mg PO BEDTIME vitamin E 450 mg PO DAILY HPI HPI Comments History of Present Illness Details Tonia comes for follow-up. She has been doing well. She continues to remain active and denies any worsening symptoms of heart failure. Denies any worsening shortness of breath, orthopnea, PND, leg edema. Patient takes a diuretic regimen on a daily basis. Renal function is improved. No lightheadedness, syncope. No exertional chest pain. [facility] Medical History Cardiomyopathy Chronic anemia Diverticulosis GERD (gastroesophageal reflux disease) HFrEF (heart failure with reduced ejection fraction) HTN (hypertension) Hyperglycemia Hypoparathyroidism Irritable bowel syndrome Nephrolithiasis Normal colonoscopy Papillary thyroid carcinoma Polymyalgia rheumatica Pulmonary emboli Type 2 diabetes mellitus Surgical History H/O endoscopy H/O total thyroidectomy History of cholecystectomy Family History Sister CHF (congestive heart failure) Daughter Breast cancer Son Kidney stones Social History Household Members: Family Housing: House Alcohol intake: never Patient Tobacco Use Status: Former Tobacco user Quit Date: 1979 Years Smoked: 30 +/- Current occupational status: retired Current occupation: Right Handed Review of Systems Const Denies weakness ENT Denies dizziness Card Denies chest pain, Denies chest pain with activity, Denies syncope, Denies rapid heart rate, Denies pedal edema, Denies edema, Denies leg edema, Denies lightheadedness, Denies palpitations, Denies dyspnea, Denies dyspnea on exertion and Denies orthopnea Resp Denies cough, Denies dyspnea and Denies dyspnea on exertion GI Denies hematochezia and Denies change in stool character Musc Denies abnormal gait, Denies muscle cramps, Denies muscle weakness, Denies numbness, Denies radiating pain into limb and Denies tingling Neuro Denies abnormal gait, Denies dizziness, Denies syncope, Denies numbness, Denies tingling and Denies weakness Endo Denies palpitations Physical Exam Vital Signs: Last Vital Signs Pulse 69 11/20/22 13:28 BP 102/66 11/20/22 13:28 BMI result Body Mass Index 26.0 Const General: cooperative, healthy appearing, comfortable and no acute distress Orientation/consciousness: patient oriented x3 Neck Neck: Yes normal visual inspection and Yes no JVD Resp Effort & Inspection: normal respiratory effort Auscultation: clear to auscultation bilaterally, no crackles, no rales, no rhonchi and no wheezes Cardio Rate: regular rate Rhythm: regular rhythm Heart sounds: S1 normal heart sound present, S2 normal heart sound present, no gallops, no murmurs and no rubs Neuro General: patient oriented x3 Extrem General: Yes normal to inspection, No no pedal edema and No calf tenderness Psych Appearance: grossly normal Mental Status: mental status grossly normal Speech and movement: Normal speech and movement present Assessment & Plan Assessment & Plan (1) HFrEF (heart failure with reduced ejection fraction): Code(s): I50.20 - Unspecified systolic (congestive) heart failure Plan: Heart failure with reduced ejection fraction, clinically euvolemic and well compensated. Continue current low-dose Lasix therapy. Given her reduced LV ejection fraction with transition her from lisinopril to Entresto therapy although will require in between valsartan therapy. Will start on valsartan 40 mg b.i.d.. Advised to monitor blood pressure at home. Follow-up blood work in 1 month's time. If blood pressure is above 100 systolic and renal function stable will switch her to Entresto therapy. Continue carvedilol therapy. Management of heart failure were discussed. Daily weight monitoring avoidance of salt loading was discussed. Continue current Lasix therapy. Will follow up in the clinic in 6 months time, sooner p.r.n.. Thank you for allowing me to partake in her care Orders: Orders Basic Metabolic Panel 1 Month I50.20 - Unspecified systolic (congestive) heart failure B Type Natriuretic Peptide 1 Month I50.20 - Unspecified systolic (congestive) heart failure Medications: New valsartan 40 mg PO BID 60 tabs 2RF Coding Level of Care Code Est Pt Level 4 (37655) Diagnoses HFrEF (heart failure with reduced ejection fraction) I50.20
== END 2022-11-20 13:47 | disposition home or self-care (01) ==
PROVIDERS: Visit Provider Internal Medicine Cardiovascular Disease
DX: I50.20 Unspecified systolic (congestive) heart failure (principal)
CPT/HCPCS: 99214

== ENCOUNTER → 2022-11-20 13:26 | Outpatient (BNVA) | payer MEDICARE, SELFPAY | PROVIDERS: Visit Provider Internal Medicine Cardiovascular Disease | DX: I50.20 Unspecified systolic (congestive) heart failure (principal) | CPT/HCPCS: 99212 ==

== ENCOUNTER 2023-05-09 11:54 | Outpatient (REF) | payer MEDICARE, SELFPAY ==
--- NOTE | ~2023-05-09 | MM_ITS ---
EXAMINATION: MM SCREENING DIGITAL BREAST TOMOSYNTHESIS, BILATERAL CLINICAL INFORMATION: Screening. Asymptomatic. COMPARISON: Mammography: This study is compared with prior exams dating back to 2017. TECHNIQUE: Digital breast tomosynthesis is performed in both the craniocaudal and mediolateral oblique views along with computer-aided detection (CAD). Synthesized 2D images are generated from the tomosynthesis. FINDINGS: There are scattered areas of fibroglandular density (ACR BI-RADS breast composition Category b). There is a focal asymmetry in the upper outer quadrant of the right breast. There is centrally located, fine calcifications within it. Additional mammographic and targeted sonographic evaluation is advised. In the left breast, no are no significant masses, abnormal calcifications, or other abnormalities. MM/MM tomosynthesis screening BI IMPRESSION: Right breast asymmetry with associated calcifications warrant additional mammographic and targeted sonographic evaluation. This should include diagnostic spot compression imaging as well as 2 separate magnification images. No mammographic signs of malignancy left breast. ASSESSMENT: BI-RADS BI-RADS 0 - Incomplete: Needs additional Imaging. RECOMMENDATION: 1. Additional views of the right breast 2. Targeted ultrasound if warranted after review of the additional views. 3. Radiology department staff will contact the patient for additional imaging. Additional Imaging required This examination should not preclude the clinical evaluation of a suspicious palpable abnormality. This patient's information was entered into a reminder system with a target due date for their next mammogram.
== END 2023-05-09 11:55 | disposition home or self-care (01) ==
LOC: HO.MAMMO 11:54
PROVIDERS: PCP Internal Medicine; Visit Provider Internal Medicine
DX: Z12.31 Encounter for screening mammogram for malignant neoplasm of breast (principal)
CPT/HCPCS: 77063; 77067

== ENCOUNTER → 2023-05-09 12:00 | Outpatient (BNV) | payer MEDICARE, SELFPAY | PROVIDERS: PCP Internal Medicine; Visit Provider Radiology Diagnostic Radiology | DX: Z12.31 Encounter for screening mammogram for malignant neoplasm of breast (principal) | CPT/HCPCS: 77063; 77067 ==

== ENCOUNTER 2023-05-23 12:47 | Outpatient (AMB) | payer MEDICARE, SELFPAY ==
[2023-05-23 12:58] VITALS: BP 114/62; PULSE 68; BMI 25.0
--- NOTE | 2023-05-23 12:58 | MHC.OFFVIS ---
Intake Vital Signs 05/23/23 12:58 Height 5 ft 1 in Weight 132 lb 4.438 oz BMI 25.0 BP 114/62 Blood Pressure Location Lt brachial Position Sitting Pulse 68 Pulse Source Pulse Oximeter Intake Visit Reasons: 6 mth Transformer Assembly Supervisor Required: No Allergies esomeprazole [From NEXIUM] Allergy (Intermediate, Verified 05/23/23 13:01) CHEST PAIN omeprazole [From PRILOSEC] Allergy (Intermediate, Verified 05/23/23 13:01) CHEST PAIN Medication List - Last Reconciled 05/23/23 by Lia Doshi, ACOUSTIC WARFARE ANALYST-C allopurinol 300 mg PO DAILY aspirin 81 mg PO DAILY carvedilol 6.25 mg PO BID cholecalciferol (vitamin D3) (Vitamin D3) 50 mcg PO DAILY cranberry 500 mg PO DAILY cyanocobalamin (vitamin B-12) 5,000 mcg PO BEDTIME d-mannose (AZO D-Mannose) 500 mg PO DAILY folic acid 1 mg PO DAILY furosemide 20 mg PO DAILY gabapentin 100 mg PO DAILY isosorbide mononitrate ER 30 mg PO DAILY levothyroxine 100 mcg PO DAILY metformin 500 mg PO BID rosuvastatin 20 mg PO BEDTIME valsartan 40 mg PO BID 90 days vitamin E 450 mg PO DAILY HPI 6 mth HPI Details Tonia is a 77-year-old female past medical history of hypertension, diabetes, chronic kidney disease, heart failure with reduced EF, nonischemic cardiomyopathy who presents for follow-up. Today she reports she had surgery in February for prolapsed cervix. She tells me her recovery lasted at least 10 weeks. She still has some residual weakness. She did have syncope event and anemia with hemoglobin as low as 6 and received blood transfusions. She does follow with hematology for her is chronic anemia. She had no known cardiac complications during her surgery. She denies any chest discomfort at rest or with activity. She ambulates slowly with a walker. No shortness of breath, palpitations, lightheadedness, presyncope, syncope, falls, PND, orthopnea or edema. Taking meds as directed. [facility] Medical History History of blood transfusion (~02/01/23) HFrEF (heart failure with reduced ejection fraction) Cardiomyopathy Normal colonoscopy Type 2 diabetes mellitus Diverticulosis Irritable bowel syndrome Pulmonary emboli GERD (gastroesophageal reflux disease) Nephrolithiasis Hypoparathyroidism Papillary thyroid carcinoma HTN (hypertension) Polymyalgia rheumatica Hyperglycemia Chronic anemia Surgical History H/O endoscopy History of cholecystectomy H/O total thyroidectomy Family History Sister CHF (congestive heart failure) Daughter Breast cancer Son Kidney stones Social History Household Members: Family Housing: House Alcohol intake: never Patient Tobacco Use Status: Former Tobacco user Quit Date: 1979 Smoked: 30 +/- Current occupational status: retired Current occupation: Right Handed Review of Systems Const All systems reviewed & are unremarkable except as noted in HPI and below Reports fatigue Card Denies chest pain, Denies chest pain at rest, Denies chest pain with activity, Denies dyspnea, Denies dyspnea on exertion and Denies orthopnea Resp Denies dyspnea and Denies dyspnea on exertion Musc Details: general weakness Neuro Reports no additional complaints Endo Reports fatigue Physical Exam Vital Signs: Last Vital Signs Pulse 68 05/23/23 12:58 BP 114/62 05/23/23 12:58 BMI result Body Mass Index 25.0 Const General: cooperative, healthy appearing, comfortable and no acute distress Orientation/consciousness: patient oriented x3 Neck Neck: Yes normal visual inspection and Yes no JVD Resp Effort & Inspection: normal respiratory effort Auscultation: clear to auscultation bilaterally, no crackles, no rales, no rhonchi and no wheezes Cardio Jugular venous distension: no JVD Rate: regular rate Rhythm: regular rhythm Heart sounds: S1 normal heart sound present, S2 normal heart sound present, no gallops, no murmurs and no rubs Peripheral pulses: Peripheral pulses 2+ throughout GI Inspection: Yes normal to inspection Skin General skin exam: no rashes or lesions noted Neuro General: patient oriented x3 Extrem General: Yes normal to inspection, No no pedal edema and No calf tenderness Psych Appearance: grossly normal Mental Status: mental status grossly normal Speech and movement: Normal speech and movement present Assessment & Plan Assessment & Plan (1) HFrEF (heart failure with reduced ejection fraction): Code(s): I50.20 - Unspecified systolic (congestive) heart failure Plan: History of heart failure with reduced EF. Last echocardiogram in our system 06/12/2022 showing EF 43%, mild calcification of the aortic valve, small effusion over the LV. She has had no recent hospitalizations for decompensated heart failure. She did have varnish blender surgery in February without any reported cardiac complications. She does not recall having any issues with breathing or fluid buildup. She does have known chronic kidney disease with last creatinine 1.5 to. She continues on Lasix 20 mg daily. Signs and symptoms of heart failure reviewed with her. Low-salt diet discussed. Labs and system for updated CBC and CMP. Cardiology follow-up 6 months, sooner if needed. (2) History of cardiomyopathy: Code(s): Z86.79 - Personal history of other diseases of the circulatory system Plan: Nonischemic cardiomyopathy. Last EF 43% 1 year ago. A nuclear stress test done 06/20/2022 showed [id number] reversible defect in the apical part of the anterior septum, anterior wall, apex, adjacent lateral and inferior lateral wall, which could be related to ischemia, less likely artifact. At that time isosorbide was added. No reports of anginal sounding symptoms. No signs of fluid all overload on examination. Will continue on current med management including valsartan and carvedilol for neurohormonal modulation. Continue isosorbide for possible ischemia. Continue Lasix. She is also on aspirin and statin. Updating lipids. Will update echo prior to her next visit. (3) HTN (hypertension): Code(s): I10 - Essential (primary) hypertension Plan: Well controlled at present. No med change made (4) Anemia: Code(s): D64.9 - Anemia, unspecified Plan: Follows with Dr. Tse. Last labs in our system 03/06/2023 with hematocrit 21.8. She denies any known active bleeding. Repeat labs are pending Plan Time spent on chart review, documentation, interview and assessment Orders: Orders Lipid Panel 05/23/23 E78.5 - Hyperlipidemia, unspecified Comprehensive Met. Panel 05/23/23 I50.20 - Unspecified systolic (congestive) heart failure CA echo transthoracic complete 5 Months Z86.79 - Personal history of other diseases of the circulatory system Coding Level of Care Code Est Pt Level 4 (56190) Diagnoses HFrEF (heart failure with reduced ejection fraction) I50.20 History of cardiomyopathy Z86.79 HTN (hypertension) I10 Anemia D64.9 Time Spent (min) 28
== END 2023-05-23 13:23 | disposition home or self-care (01) ==
PROVIDERS: PCP Internal Medicine; Visit Provider Internal Medicine Cardiovascular Disease
DX: I50.20 Unspecified systolic (congestive) heart failure (principal); Z86.79 Personal history of other diseases of the circulatory system; I10 Essential (primary) hypertension; D64.9 Anemia, unspecified
CPT/HCPCS: 99214

== ENCOUNTER → 2023-05-23 12:47 | Outpatient (BNVA) | payer MEDICARE, SELFPAY | PROVIDERS: PCP Internal Medicine; Visit Provider Internal Medicine Cardiovascular Disease | DX: I11.0 Hypertensive heart disease with heart failure (principal); I50.20 Unspecified systolic (congestive) heart failure; D64.9 Anemia, unspecified; Z86.79 Personal history of other diseases of the circulatory system | CPT/HCPCS: 99212 ==

== ENCOUNTER 2023-05-29 14:18 | Outpatient (REF) | payer MEDICARE, SELFPAY ==
--- NOTE | ~2023-05-29 | MM_ITS ---
EXAMINATION: MM DIAGNOSTIC DIGITAL BREAST TOMOSYNTHESIS, RIGHT US BREAST LIMITED, RIGHT MAMMOGRAPHY: CLINICAL INFORMATION: Diagnostic exam for focal asymmetry upper outer quadrant right breast seen on screening exam, with possible internal calcifications. COMPARISON: Mammography: 05/09/2023, 05/03/2022, 04/27/2021, 03/08/2020, 01/09/2019, and dating back to 2013. TECHNIQUE: Digital right breast tomosynthesis is performed in the following views: 2-D spot magnification right CC and ML views, 3-D spot compression right CC and MLO views, and targeted ultrasound to follow. FINDINGS: There are scattered areas of fibroglandular density (ACR BI-RADS breast composition Category b). Spot compression and magnification views demonstrate a mildly spiculated irregular mass in the upper outer right breast, middle one third, with internal fine calcifications. This measures approximately 1.3 cm. This finding is suspicious and will be evaluated with ultrasound. There is a stable oval density abutting the lateral right nipple, known to represent duct ectasia. This is benign and unchanged. ULTRASOUND: CLINICAL INFORMATION: Evaluate slightly irregular spiculated mass upper outer quadrant right breast middle one third. COMPARISON: None TECHNIQUE: Targeted sonographic evaluation was performed using a high frequency linear transducer. The upper outer quadrant of the right breast was targeted. Selected archived documentation. FINDINGS: RIGHT BREAST: Ultrasound demonstrates an irregular mass in the 10:00 axis of the right breast, 4 cm from the nipple, with microlobulated contours, internal color Doppler flow, and no definite posterior features. There are internal fine specular calcifications within this mass. The abnormality measures approximately 1.3 x 0.9 x 0.8 cm, and abuts the pectoralis fascia without definite invasion. No definite abnormal right axillary lymph nodes were evident. No additional abnormal findings within the right breast. MM/MM tomosynthesis added views R IMPRESSION: Suspicious 1.3 cm microlobulated mass with internal fine calcifications at the 10:00 axis of the right breast. Recommend ultrasound-guided biopsy for further characterization. Findings and recommendations were discussed with the patient in detail. No evidence of abnormal right axillary lymph nodes. OVERALL ASSESSMENT: Mammography: BI-RADS 4 - Suspicious finding Ultrasound: BI-RADS 4 - Suspicious finding RECOMMENDATION: Biopsy recommended
== END 2023-05-29 14:19 | disposition home or self-care (01) ==
LOC: HO.MAMMO 14:18
PROVIDERS: PCP Internal Medicine; Visit Provider Internal Medicine
DX: R92.1 Mammographic calcification found on diagnostic imaging of breast (principal); N64.89 Other specified disorders of breast
CPT/HCPCS: 76642; 77061; 77065

== ENCOUNTER → 2023-05-29 14:30 | Outpatient (BNV) | payer MEDICARE, SELFPAY | PROVIDERS: PCP Internal Medicine; Visit Provider Radiology Diagnostic Radiology | DX: R92.8 Other abnormal and inconclusive findings on diagnostic imaging of breast (principal) | CPT/HCPCS: 76642; 77065; G0279 ==

== ENCOUNTER 2023-06-17 | Outpatient (REF) | payer MEDICARE, SELFPAY | END 2023-06-17 00:01 | disposition home or self-care (01) | LOC: HO.MAMMO | PROVIDERS: PCP Internal Medicine; Visit Provider Surgery | DX: N63.10 Unspecified lump in the right breast, unspecified quadrant (principal); Z79.899 Other long term (current) drug therapy | CPT/HCPCS: 19100; 99202 ==

== ENCOUNTER 2023-06-17 08:16 | Outpatient (AMB) | payer MEDICARE, SELFPAY ==
--- NOTE | 2023-06-17 08:28 | MHC.OFFVIS ---
Intake Intake Visit Reasons: U/S bx RT brst 10 o'clock mass Intake Note: Patient referred by PCP Dr. Avina for US guided Rt breast @ 10 o'clock. Patient c/o: lump painful on and off. Denies itch, oozing. Patient bx cancelled as doctor diagnosed w/covid. 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 Required: No Accompanied by: Daughter Allergies esomeprazole [From NEXIUM] Allergy (Intermediate, Verified 06/17/23 08:29) CHEST PAIN omeprazole [From PRILOSEC] Allergy (Intermediate, Verified 06/17/23 08:29) CHEST PAIN Medication List - Last Reconciled 06/17/23 by Jose Carvalho MD allopurinol 300 mg PO DAILY aspirin 81 mg PO DAILY carvedilol 6.25 mg PO BID cholecalciferol (vitamin D3) (Vitamin D3) 50 mcg PO DAILY cranberry 500 mg PO DAILY cyanocobalamin (vitamin B-12) 5,000 mcg PO BEDTIME d-mannose (AZO D-Mannose) 500 mg PO DAILY folic acid 1 mg PO DAILY furosemide 20 mg PO DAILY gabapentin 100 mg PO DAILY isosorbide mononitrate ER 30 mg PO DAILY levothyroxine 100 mcg PO DAILY metformin 500 mg PO BID rosuvastatin 20 mg PO BEDTIME valsartan 40 mg PO BID 90 days vitamin E 450 mg PO DAILY HPI HPI Comments History of Present Illness Details Patient presents with her daughter. Approximate 2 weeks ago she noticed a right upper outer quadrant breast mass. She has never had such pathology before. She does do occasional self-breast exams. She denies any other breast symptoms. No discharge, no other skin changes. Contralateral left breast asymptomatic. Family history noncontributory. Patient's weight, energy, appetite are all stable. Chart was reviewed patient evaluated [facility] Medical History (Updated 06/17/23 @ 08:32 by HIPOLITO Hogue) Cervix prolapsed into vagina History of blood transfusion (~02/01/23) HFrEF (heart failure with reduced ejection fraction) Cardiomyopathy Normal colonoscopy Type 2 diabetes mellitus Diverticulosis Irritable bowel syndrome Pulmonary emboli GERD (gastroesophageal reflux disease) Nephrolithiasis Hypoparathyroidism Papillary thyroid carcinoma HTN (hypertension) Polymyalgia rheumatica Hyperglycemia Chronic anemia Surgical History (Updated 06/17/23 @ 09:10 by Jose Carvalho MD) Breast mass, right H/O endoscopy History of cholecystectomy H/O total thyroidectomy Family History Sister CHF (congestive heart failure) Daughter Breast cancer Son Kidney stones Social History Household Members: Family Housing: House Alcohol intake: never Patient Tobacco Use Status: Former Tobacco user Quit Date: 1979 Years Smoked: 30 +/- Current occupational status: retired Current occupation: Right Handed Physical Exam Neck Other: Patient had no cervical periclavicular or axillary adenopathy bilaterally. Chest Other: Left breast no obvious mass, discharge, adenopathy, or skin changes. Right breast upper outer quadrant approximately 2 x 2 cm mass, firm, mildly tender. No overlying skin changes. No breast discharge. GI Other: Abdomen soft, benign. Right subcostal scar from years ago open gallbladder surgery Office Procedures Biopsy- Core needle Risks, benefits, alternatives of procedure reviewed the patient included but not limited to bleeding, infection, non diagnosis, numbness, pain, scarring the patient was to proceed. After appropriate positioning, patient underwent Betadine prep uneventful core biopsy of several passes with 18 gauge needle. Good tissue sampling was obtained and sent to pathology and appropriate receptacle. Patient tolerated procedure well. Assessment & Plan Assessment & Plan (1) Breast mass, right: Code(s): N63.10 - Unspecified lump in the right breast, unspecified quadrant Plan Patient was originally scheduled to have ultrasound-guided core biopsy. Unfortunately the radiologist is home with [facility] and is unclear when he will return. Because patient was very anxious at this biopsy, patient underwent core biopsy in the office with good tissue samples obtained. Patient and daughter have been given local instructions, and will see me as directed or p.r.n.. This included avoiding strenuous activities, ice to wound, Motrin analgesia and no strenuous activities. Orders: Orders Biopsy - Core needle Today N63.10 - Unspecified lump in the right breast, unspecified quadrant Coding Level of Care Code New Pt Level 5 (54604) Diagnoses Breast mass, right N63.10
== END 2023-06-17 09:07 | disposition home or self-care (01) ==
PROVIDERS: PCP Internal Medicine; Visit Provider Surgery
DX: N63.10 Unspecified lump in the right breast, unspecified quadrant (principal)
CPT/HCPCS: 19100; 99204

== ENCOUNTER 2023-06-17 08:45 | Outpatient (REF) | payer MEDICARE, SELFPAY | END 2023-06-17 08:46 | disposition home or self-care (01) | LOC: HO.LNP 08:45 | PROVIDERS: Visit Provider Surgery | DX: N63.10 Unspecified lump in the right breast, unspecified quadrant (principal) | CPT/HCPCS: 88305; 88341; 88342; 88360 ==

== ENCOUNTER 2023-06-26 11:35 | Outpatient (AMB) | payer MEDICARE, SELFPAY ==
[2023-06-26 11:40] VITALS: BP 150/66; PULSE 72
--- NOTE | 2023-06-26 11:40 | MHC.OFFVIS ---
Intake Vital Signs 06/26/23 11:40 Weight 133 lb BP 150/66 H Blood Pressure Location Rt brachial Position Sitting Pulse 72 Intake Visit Reasons: RT brst mass, s/p core biopsy results Intake Note: Patient here to discuss Rt breast core bx on 06-17-23. Patient c/o: pain, tenderness. Bit Gatherer Required: No Accompanied by: Daughter Allergies esomeprazole [From NEXIUM] Allergy (Intermediate, Verified 06/26/23 11:40) CHEST PAIN omeprazole [From PRILOSEC] Allergy (Intermediate, Verified 06/26/23 11:40) CHEST PAIN HPI HPI Comments History of Present Illness Details Patient presents with her daughter for follow-up. Core biopsy is consistent with a breast cancer. Furthe studies including hormone and HER2 were unavailable from specimen. Exam is status quo. [facility] Medical History Cervix prolapsed into vagina History of blood transfusion (~02/01/23) HFrEF (heart failure with reduced ejection fraction) Cardiomyopathy Normal colonoscopy Type 2 diabetes mellitus Diverticulosis Irritable bowel syndrome Pulmonary emboli GERD (gastroesophageal reflux disease) Nephrolithiasis Hypoparathyroidism Papillary thyroid carcinoma HTN (hypertension) Polymyalgia rheumatica Hyperglycemia Chronic anemia Surgical History Breast mass, right H/O endoscopy History of cholecystectomy H/O total thyroidectomy Family History Sister CHF (congestive heart failure) Daughter Breast cancer Son Kidney stones Social History Household Members: Family Housing: House Alcohol intake: never Patient Tobacco Use Status: Former Tobacco user Quit Date: 1979 Smoked: 30 +/- Current occupational status: retired Current occupation: Right Handed Physical Exam Vital Signs: Last Vital Signs Pulse 72 06/26/23 11:40 BP 150/66 H 06/26/23 11:40 Chest Other: Chest breath sounds bilaterally, HS 1 and 2. 10 o'clock position right breast approximate 1.2 cm mass. No periclavicular, axillary or cervical adenopathy demonstrated Contralateral left side negative. Assessment & Plan Assessment & Plan (1) Breast mass, right: Code(s): N63.10 - Unspecified lump in the right breast, unspecified quadrant (2) Breast cancer, right: Code(s): C50.911 - Malignant neoplasm of unspecified site of right female breast Plan I had a lengthy discussion with the patient her daughter regarding further interventions. Because the patient has a small/T1 lesion (1.3 cm), she is an ideal candidate for lumpectomy. She does not require any kind of neoadjuvant therapy before surgery. Mastectomy would be overkill for her surgery unless the patient strongly wished to have this, which she does not. The reason she had the in office fine-needle biopsy was because the radiologist was on vacation and then subsequently became ill and was not available for the next few weeks time. At the same sitting, patient will undergo sentinel lymph node sampling. With the final specimen taken, further pathologic staging including homeless status and HER2 status along with other immunohistochemical workup along with nose would be evaluated for a final diagnosis. Having a repeat biopsy , which the patient does not want, would not change her therapy regarding hormone or HER2 status surgically. The information can be obtained as noted above postoperatively and direct further therapy. Also we discussed the patient will require post lumpectomy radiation therapy once her incision was fully healed. Patient has a history of anemia which is treated with periodic transfusion secondary to her myeloma. Risks, benefits, alternatives of the procedure were extensively reviewed with the patient her daughter , which include but not limited to bleeding, infection, numbness, pain, scarring and they wished to proceed with lumpectomy and sentinel lymph node biopsy. We will obtain baseline pre-admission labs to see if she requires any transfusion ,which the patient states she received periodically. Patient also would like to undergo MAC anesthesia because she has a reaction to general anesthesia. I think her situation is good for MAC as well. In the interim, I spoke with Dr. Andrea as well as with Dr. Tse. Addendum to plan above is patient is to have a core biopsy by breast radiology and plan is then otherwise as noted above. Coding Level of Care Code Est Pt Level 5 (14259) Diagnoses Breast mass, right N63.10 Breast cancer, right C50.911
== END 2023-06-26 12:20 | disposition home or self-care (01) ==
PROVIDERS: PCP Internal Medicine; Visit Provider Surgery
DX: C50.411 Malignant neoplasm of upper-outer quadrant of right female breast (principal)
CPT/HCPCS: 99215

== ENCOUNTER → 2023-06-26 11:35 | Outpatient (BNVA) | payer MEDICARE, SELFPAY | PROVIDERS: PCP Internal Medicine; Visit Provider Surgery | DX: C50.411 Malignant neoplasm of upper-outer quadrant of right female breast (principal) | CPT/HCPCS: 99212 ==

== ENCOUNTER 2023-07-01 09:53 | Outpatient (REF) | payer MEDICARE, SELFPAY ==
--- NOTE | ~2023-07-01 | MM_ITS ---
PROCEDURE: US GUIDED BREAST BIOPSY, RIGHT CLINICAL INFORMATION: 10:00 axis irregular hypoechoic mass right breast, recommended for biopsy. Recent blind attempt in surgeon's office essentially nondiagnostic. Repeat biopsy with image guidance. COMPARISON: 05/29/2023, and 05/09/2023. PROCEDURAL DETAILS: The details of the procedure, as well as the risks, benefits, and alternatives to the procedure were explained to the patient in detail and all of her questions were answered, after which written informed consent was obtained. Site and side were confirmed. Prior to the procedure, sonography revealed a mixed echogenicity predominantly hypoechoic irregular mass in the 10:00 axis of the right breast, 5 cm from the nipple, with internal vascularity, measuring approximately 1.3 x 0.9 x 0.8 cm. A time-out was performed, the lesion intended for biopsy was targeted, and the skin of the right breast was then marked, prepped and draped in the usual sterile fashion. Using sonographic guidance, sterile technique, and 1% lidocaine without epinephrine for local anesthesia, 3 core biopsies were obtained through the targeted area with a 14G spring loaded [employer] core biopsy device. There was real-time confirmation of appropriate needle passage. Sampling was documented. At the completion of tissue sampling, a single open coil metallic clip was deposited at the biopsy site. There was no evidence of immediate complication. No abnormal right axillary lymph nodes were noted on prior ultrasound. SPECIMEN: 3 well formed core samples were obtained. DIGITAL POST-PROCEDURE MAMMOGRAPHY: Breast density: The tissue contains scattered areas of fibroglandular density. BI-RADS version 5, category B. There are no new mammographic findings demonstrated. The postprocedure 2-view direct digital mammogram reveals satisfactory and accurate positioning of the biopsy clip. No hematoma present. The patient tolerated the procedure well and, after assuring adequate hemostasis, was discharged in good condition after reviewing postbiopsy breast care instructions. Final pathology results are pending. MM/MM tomosynthesis diagnostic RT IMPRESSION: 1. No immediate complication from ultrasound-guided percutaneous biopsy right breast 10:00 mass. 2. Ultrasound was used to localize and guide marker clip placement. 3. The 2-view direct digital postprocedure mammogram reveals accurate and satisfactory positioning of the biopsy clip. 4. Although the mass abuts the pectoralis fascia, no definite invasion was seen, and on biopsy, lidocaine infiltration underneath the mass encountered no resistance in lifting it from the pectoralis fascia. 5. Final pathology results are pending. A separate report with final recommendations will be issued once these results are made available.
[2023-07-01] MEDS: Lidocaine HCl 1 % 20 ML VIAL 5 ML SUBCUT (11:10)
[2023-07-01] MEDS: Sodium Bicarbonate 8.4% 50 MEQ/50 ML VIAL SUBCUT (11:11)
== END 2023-07-01 09:54 | disposition home or self-care (01) ==
LOC: HO.MAMMO 09:53
PROVIDERS: Absent Provider Surgery; PCP Internal Medicine; Visit Provider Internal Medicine
DX: N63.11 Unspecified lump in the right breast, upper outer quadrant (principal); N64.59 Other signs and symptoms in breast
CPT/HCPCS: 19083; 77061; 77065; 88305; 88341; 88342; 88360; A4648; C1894

== ENCOUNTER → 2023-07-01 10:00 | Outpatient (BNV) | payer MEDICARE, SELFPAY | PROVIDERS: Absent Provider Surgery; PCP Internal Medicine; Visit Provider Radiology Diagnostic Radiology | DX: D05.11 Intraductal carcinoma in situ of right breast (principal) | CPT/HCPCS: 19083; 77065 ==

== ENCOUNTER 2023-08-09 10:29 | Inpatient (IN) | payer MEDICARE, SELFPAY ==
[2023-08-09] VITALS (9 sets, daily range): BP systolic 96–146; BP diastolic 59–95; PULSE 65–89; RESP 14–26; TEMP 36.6–36.8; O2SAT 88–97; BMI 24.2
--- NOTE | ~2023-08-09 | XR_ITS ---
EXAMINATION: XR CHEST CLINICAL INFORMATION: Difficulty breathing since last night. COMPARISON: 09/23/2017 TECHNIQUE: 2 views of the chest were obtained. FINDINGS: Cardiac silhouette remains enlarged. Aorta is calcified. Central vasculature appears prominent and there is visualization of the right minor fissure. Left costophrenic angle blunting. Basilar atelectasis. No consolidations. Bones are demineralized. XR/XR chest 2V IMPRESSION: Suspect mild central vascular congestion and tiny left pleural effusion. Basilar atelectasis.
--- NOTE | 2023-08-09 07:00 | CA_ITS ---
Transthoracic Echocardiogram Patient (Last, First, Middle): Tonia Hernandez Ray Gender: Female Date of : 1945 Age: 77 Procedure Date: 08/09/2023 Procedure Type: Transthoracic Echocardiogram Location: [facility] [place] Height: 154.94 cm Weight: 58.06 kg BSA: 1.56 m2 Heart Rate: bpm BP: 146 / 76 mmHg Manager Benefit: Referring MD: Carmine NOEL Symptoms: CHF Study Quality: Good ECG Rhythm: Sinus with extra beats Conclusions: - The left ventricular systolic function is severely decreased. The calculated ejection fraction is 30% by biplane method. - Evidence suggests grade III (severe) diastolic dysfunction. - The basal inferior and basal inferolateral segments are akinetic. - The left atrium is severely dilated. - There is severe mitral valve regurgitation. - There is mild aortic valve regurgitation. - Mild pulmonary hypertension is present. Findings Left Ventricle Normal left ventricular cavity size. There is mildly increased left ventricular wall thickness. The left ventricular systolic function is severely decreased. The calculated ejection fraction is 30% by biplane method. There is severe global hypokinesis. Evidence suggests grade III (severe) diastolic dysfunction. Wall Motion Rest Echo Findings The basal inferior and basal inferolateral segments are akinetic. Atria The left atrium is severely dilated. The right atrium is normal in size. Aortic Valve The aortic valve was not well visualized. There is a normal trileaflet aortic valve. There is mild calcification of the aortic valve. There is no aortic valve stenosis. There is mild aortic valve regurgitation. Mitral Valve The posterior mitral leaflet has restricted mobility. There is severe mitral valve regurgitation. There is no mitral valve stenosis. Pulmonic Valve The pulmonic valve is likely normal. Tricuspid Valve There is trace tricuspid valve regurgitation. Mild pulmonary hypertension is present. Great Vessels The asc aorta is normal in size. Venous The inferior vena cava is normal in size and collapses greater than 50% with inspiration. Pericardium/Pleural There is a small loculated pericardial effusion overlying the left ventricle. Prior Study Comparison Changes noted compared to prior study dated: 06/12/2022. LVEF lower; see comments on mitral regurgitation. Measurements 2D Linear Measurements IVSd: 1.14 0.6-0.9/0.6-1.0 cm LVIDd: 5.41 3.9-5.3/4.2-5.9 cm LVIDd Index: 3.47 2.4-3.2/2.2-3.1 cm/m2 LVIDs: 4.68 2.0-3.6 cm LVPWd: 1.03 0.7-1.1 cm Ao Root: 3.50 2.1-3.5 cm LA Diam: 5.00 2.7-3.8/3.0-4.0 cm LAIDs Index: 3.21 1.5-2.3 cm/m2 LV Mass: 288.27 67-162/88-224 g LV Mass Index: 184.79 43-95/49-115 g/m2 LVOT Diam: 2.10 3.0+(-)1.3 cm 2D Systolic Function EF 4C: 27.80 >55% EF 2C: 37.30 >55% EF BiP: 30.40 >55% Mitral Valve MV Pk E: 1.29 MV PK A: 0.57 MV Decel Time: 173.00 E/A: 2.30 E'Lateral: 7.62 E'Medial: 5.87 E/E' Med: 22.00 E/E' Lat: 16.90 PHT: 51.00 MVA PHT: 4.31 Decel Hamilton: 7.44 MR Vol - PW Dopp: 48.98 MR VTI: 1.58 MR ERO: 31.00 MR Alias Dex: 0.33 MR RAD: 0.90 Aortic Valve AoV Pk Dex: 1.70 AoV Mn Dex: 1.17 AoV VTI: 0.32 AoV Pk Grad: 12.00 Aov Mn Grad: 6.00 LUCAS Cont.VTI: 1.66 AI Pk Dex: 4.45 AI Hamilton: 4.47 LVOT LVOT Pk Dex: 0.85 LVOT Mn Dex: 0.59 LVOT VTI: 0.15 LVOT Pk Grad: 3.00 LVOT Mn Grad: 2.00 LVOT Diam: 2.10 LVOT Area: 3.46 Diastolic Function MV Pk E: 1.29 MV Pk A: 0.57 E/A: 2.30 E'Medial: 5.87 E/E' Med: 22.00 E' Laterial: 7.62 E/E' Lat: 16.90 Right Ventricle TAPSE (mm): 21.00 TVS' Dex: 11.00 Tricuspid Valve TR Pk Dex: 2.98 TR Pk Grad: 36.00 RA Press: 3.00 RVSP: 39.00 Great Vessels Aorta Ao Root-2D: 3.50 2.0-3.7 cm Ao Asc: 3.80 2.1-3.4 cm Pulmonary Valve PV Pk Dex: 0.99 Peak PV Grad: 4.00 Updated in Other Vendor System with Status of Final Alexander Matias MD electronically signed on 08/10/2023 2:02:01 PM with status of Final
--- NOTE | 2023-08-09 10:51 | ECG_ITS ---
Test Reason : sob Blood Pressure : / mmHG Vent. Rate : 081 BPM Atrial Rate : 081 BPM P-R Int : 172 ms QRS Dur : 096 ms QT Int : 420 ms P-R-T Axes : 097 -17 049 degrees QTc Int : 488 ms Normal sinus rhythm slight QTc prolongation Nonspecific ST and T wave abnormality When compared with ECG of 24-JAN-2021 16:07, No significant changes seen Referred By: Narcisa Patricia Electronically Signed By:CATARINO GÓMEZ
--- NOTE | 2023-08-09 10:52 | ED_ITS ---
HPI - SOB/Dyspnea General Chief Complaint: Upper Respiratory Symptoms Stated Complaint: Diff Breathing Time Seen by Provider: 08/09/23 10:40 Source: patient and family Mode of arrival: wheelchair Limitations: no limitations History of Present Illness HPI Narrative: 77 yo female with history of breast cancer s/p resection, hypothyroidism, nonischemic cardiomyopathy with last EF 43% with no history of hospitalization for CHF on lasix 20mg, DM, HLD, HTN,CKD, anemia here with complaints of SOB since yesterday. Has chronic cough. Not productive. No fevers, chills, weight gain, leg swelling or pain, abdominal pain, vomiting, diarrhea, chest pain. No recent travel or sick contact Related Data Home Medications ?Medication ?Instructions ?Recorded ?Confirmed aspirin 81 mg tablet,delayed 81 mg PO DAILY 02/29/20 08/09/23 release cholecalciferol (vitamin D3) 50 50 mcg PO DAILY 02/29/20 08/09/23 mcg (2,000 unit) tablet (Vitamin D3) cyanocobalamin (vitamin B-12) 5,000 mcg PO BEDTIME 02/29/20 08/09/23 5,000 mcg disintegrating tablet folic acid 1 mg tablet 1 mg PO DAILY 02/29/20 08/09/23 levothyroxine 100 mcg tablet 100 mcg PO DAILY 02/29/20 08/09/23 vitamin E 400 unit tablet 450 mg PO DAILY 02/29/20 08/09/23 allopurinol 300 mg tablet 300 mg PO DAILY 09/29/20 08/09/23 carvedilol 6.25 mg tablet 6.25 mg PO BID 09/29/20 08/09/23 furosemide 20 mg tablet 20 mg PO DAILY 09/29/20 08/09/23 metformin 500 mg tablet 500 mg PO BID 09/29/20 08/09/23 rosuvastatin 20 mg tablet 20 mg PO BEDTIME 09/29/20 08/09/23 gabapentin 100 mg capsule 100 mg PO BID 05/23/22 08/09/23 cranberry 500 mg capsule 500 mg PO DAILY 11/20/22 08/09/23 d-mannose 500 mg capsule (AZO 500 mg PO DAILY 11/20/22 08/09/23 D-Mannose) Previous Rx's ?Medication ?Instructions ?Recorded isosorbide mononitrate 30 mg 30 mg PO DAILY 90 days #90 tabs 06/20/23 tablet,extended release 24 hr valsartan 40 mg tablet 40 mg PO BID 90 days #180 tabs 06/20/23 Allergies Allergy/AdvReac Type Severity Reaction Status Date / Time esomeprazole [From NEXIUM] Allergy Intermediate CHEST PAIN Verified 08/09/23 10:33 omeprazole [From PRILOSEC] Allergy Intermediate CHEST PAIN Verified 08/09/23 10:33 Review of Systems 2 Review of Systems: Yes all other systems are reviewed and are negative Constitutional: Constitutional: Reports no additional constitutional complaints, Denies body ache(s), Denies chills, Denies fever(s), Denies headache(s) and Denies weakness Eyes: Eyes: Reports no additional eye complaints and Denies change in vision ENT: Reports system reviewed and no additional complaints, except as documented, Denies dizziness, Denies headache(s), Denies nasal congestion, Denies nasal discharge and Denies neck pain Cardiovascular: Cardiovascular: Reports no additional cardiovascular complaints, Denies chest pain, Denies leg edema and Reports dyspnea Respiratory: Respiratory: Reports no additional respiratory complaints, Denies cough and Reports dyspnea Gastrointestinal: Gastrointestinal: Reports no additional gastrointestinal complaints, Denies abdominal pain, Denies diarrhea, Denies nausea and Denies vomiting Genitourinary: Genitourinary: Reports no additional female genitourinary complaints and Denies urinary incontinence Musculoskeletal: Musculoskeletal: Reports no additional musculoskeletal complaints, Denies back pain, Denies arthralgias, Denies joint swelling, Denies neck pain, Denies numbness and Denies tingling Integumentary/Breasts: Skin/Breast: Reports system reviewed and no additional complaints, except as docu and Denies rash Neurologic: Reports system reviewed and no additional complaints, except as documented, Denies Abnormal speech present, Denies dizziness, Denies headache(s), Denies numbness, Denies tingling and Denies weakness [facility] Past Medical History Attestation statement: The following information was validated with the patient. Source: old records reviewed and nursing notes reviewed Medical History Cervix prolapsed into vagina History of blood transfusion (~02/01/23) HFrEF (heart failure with reduced ejection fraction) Cardiomyopathy Normal colonoscopy Type 2 diabetes mellitus Diverticulosis Irritable bowel syndrome Pulmonary emboli GERD (gastroesophageal reflux disease) Nephrolithiasis Hypoparathyroidism Papillary thyroid carcinoma HTN (hypertension) Polymyalgia rheumatica Hyperglycemia Chronic anemia Surgical History Breast mass, right H/O endoscopy History of cholecystectomy H/O total thyroidectomy Family History Family History Sister CHF (congestive heart failure) Daughter Breast cancer Son Kidney stones Social History Social History Household Members: Family Housing: House Alcohol intake: never Patient Tobacco Use Status: Former Tobacco user Quit Date: 1979 Smoked: 30 +/- Smoked in Last 30 Days: No Use of substances other than those prescribed or required for medical reasons: No Advance Directives: No Advance Directives Information Provided: Yes Current occupational status: retired Current occupation: Right Handed Physical Exam 2 Vital Signs: Vital Signs: Last Vital Signs Temp 98.2 F 08/09/23 13:41 Pulse 80 08/09/23 13:41 Resp 14 08/09/23 13:41 BP 146/76 H 08/09/23 13:41 Pulse Ox 97 08/09/23 13:41 O2 Del Method Room Air 08/09/23 13:41 Oxygen Flow Rate 2 08/09/23 11:53 BMI result Body Mass Index 24.2 Const: General: cooperative, healthy appearing, comfortable and no acute distress Orientation/consciousness: patient oriented x3 Limitations: no limitations HEENT: Head: Yes normal to inspection Ears: hearing grossly normal bilaterally General nose exam: Normal external nose present Face and sinus: Yes normal facial exam Mouth: Normal oral and palatal mucosa present Throat: Yes posterior oropharynx normal Eyes: General: appearance normal, both eyes and all related structures P upils: Equal, round and reactive pupils present Neck: Neck: Yes normal visual inspection Chest: Chest palpation & inspection: normal inspection of the chest Resp: Other: Tachypnea Auscultation: clear to auscultation bilaterally Cardio: Rate: regular rate Rhythm: regular rhythm Peripheral pulses: P eripheral pulses 2+ throughout GI: Inspection: Yes normal to inspection Palpation (GI): Soft to palpation and nontender Auscultation: normal bowel sounds Back/Spine/Pelvis: Thoracic/Lumbar Spine: thoracic and lumbar spine normal to inspection Skin: General skin exam: no rashes or lesions noted Neuro: General: patient oriented x3, no focal motor deficits and normal sensation to monofilament Cranial nerves: Yes Equal, round and reactive pupils present Cognition (Neuro): normal cognition Speech: No Abnormal speech present Gait exam (Neuro): Normal gait present Motor exam (neuro): 5/5 motor strength present throughout Extrem: General: Yes normal to inspection, Yes no pedal edema and Yes no calf tenderness Course Course Course Narrative: 1215-room air saturation 88%. BNP is 1926. Baseline around 100. Patient will receive 40 mg of IV Lasix and will be admitted to the hospitalist service. Medications Administered Discontinued Medications Generic Name Dose Route Start Last Admin Trade Name Freq PRN Reason Stop Dose Admin Furosemide 40 mg 08/09/23 11:57 08/09/23 12:31 Furosemide 40 Mg/4 Ml Vial IVPUSH 08/09/23 11:58 40 mg STAT STA Administration Protocol Medical Decision Making Medical Decision Making [facility] Narrative: 77 yo female with history of breast cancer s/p resection, hypothyroidism, nonischemic cardiomyopathy with last EF 43% with no history of hospitalization for CHF on lasix 20mg, DM, HLD, HTN,CKD, anemia here with complaints of SOB since yesterday. Has chronic cough. Not productive. No fevers, chills, weight gain, leg swelling or pain, abdominal pain, vomiting, diarrhea, chest pain. No recent travel or sick contact On exam patient has tachypnea with clear lung sounds. Her vitals are stable with room air saturation around 92-93%. Will need labs, EKG, chest x-ray, viral testing. Differential Diagnosis Differential Diagnoses: The differential diagnosis associated with the presentation includes PE, URI, CHF, ACS Admission/Observation Consideration of admission/observation: Escalation of care including admission/observation considered Hypoxia with elevated BNP in the setting of history of CHF. Will need admission for further management Consult Healthcare Provider Management of the patient was discussed with: Hospitalist Lab Data [facility] Lab Attestation statement: I reviewed the patient's lab results. 08/09/23 11:13 08/09/23 11:13 Labs: Lab Results 08/09/23 08/09/23 Range/Units 11:13 11:14 WBC 11.6 H (4.8-10.8) X10*3/uL RBC 2.55 L (4.20-5.50) X10*6/uL Hgb 8.8 L (12.0-16.0) g/dl Hct 25.8 L (37.0-47.0) % MCV 101.2 H (80.0-98.0) fL MCH 34.5 H (27.0-33.0) pg MCHC 34.1 (31.0-35.0) g/dl RDW 16.2 H (11.0-16.0) % Plt Count 165 (160-400) X10*3/uL MPV 9.3 L (9.4-12.3) fL Immature Gran % (Auto) 0.3 (0.0-0.4) % Neut % (Auto) 80.6 H (45-73) % Lymph % (Auto) 8.7 L (20-40) % [place] % (Auto) 9.0 (2-11) % Eos % (Auto) 1.1 (0-4) % Baso % (Auto) 0.3 (0-2) % Lymph # (Auto) 1.0 L (1.2-4.9) X10*3/uL [place] # (Auto) 1.1 (0.1-1.2) X10*3/uL Eos # (Auto) 0.1 (0.0-0.4) X10*3/uL Baso # (Auto) 0.0 (0.0-0.2) X10*3/uL Abs Immat Gran (auto) 0.04 H (0.00-0.03) X10*3/uL Absolute Neuts (auto) 9.4 H (2.0-8.3) x10*3/uL Absolute Nucleated RBC 0.000 (0.0-0.012) X10*3/uL Nucleated RBC % (auto) 0.0 (0.0-0.2) /100WBC PT 13.4 H (11.1-13.3) SEC INR 1.1 (0.9-1.1) Sodium 144 (135-145) mmol/L Potassium 3.4 D (3.3-5.1) mmol/L Chloride 107 (96-108) mmol/L Carbon Dioxide 29 (22-29) mmol/L Anion Gap 11 L (12-20) BUN 22 H (9-16) mg/dL Creatinine 1.41 H (0.5-1.4) mg/dL Estim Creat Clear Calc 27.8 Estimated GFR 36 Random Glucose 147 H (60-115) mg/dL Lactic Acid 1.4 (0.5-2.0) mmol/L Calcium 9.2 (8.4-10.2) mg/dL Total Bilirubin 1.6 H (0.0-1.0) mg/dL Direct Bilirubin 0.5 (0.0-0.5) mg/dL AST 19 (5-31) U/L ALT 41 H (0-31) U/L Alkaline Phosphatase 60 (39-117) U/L Troponin I High Sens 24.5 H (<3.5-17.0) ng/L B-Natriuretic Peptide 1926 H (<100) pg/mL Total Protein 7.0 (6.5-8.0) g/dL Albumin 3.9 (3.5-5.0) g/dL Influenza Type A (PCR) NEGATIVE (Negative) Influenza Type B (PCR) NEGATIVE (Negative) RSV RNA Qual (PCR) NEGATIVE (Negative) SARS-CoV-2 RNA (RT-PCR) NEGATIVE (Negative) Independent Interpretation I performed an independent interpretation of an: EKG and Plain X-Ray Interpretation: I independently reviewed the chest x-ray and agree with the radiology report I independently reviewed the EKG which shows normal sinus rhythm with a rate 81, normal KS, normal QRS, normal QT Radiology Impression Discussion of test interpretation with radiology: I have reviewed the radiologist's reading. Radiologist Impression: [place] [id number] XRay Report Signed Patient: Tonia Hernandez MR#: [id number] : 1945 Acct:[id number] Age/Sex: 77 / F ADM Date: 08/09/23 Loc: .ED Attending Dr: Ordering Physician: Narcisa Swift NP Date of Service: 08/09/23 Procedure(s): XR chest 2V Accession Number(s): [id number] cc: John Avina DO; Narcisa Swift NP~ EXAMINATION: XR CHEST CLINICAL INFORMATION: Difficulty breathing since last night. COMPARISON: 09/23/2017 TECHNIQUE: 2 views of the chest were obtained. FINDINGS: Cardiac silhouette remains enlarged. Aorta is calcified. Central vasculature appears prominent and there is visualization of the right minor fissure. Left costophrenic angle blunting. Basilar atelectasis. No consolidations. Bones are demineralized. XR/XR chest 2V IMPRESSION: Suspect mild central vascular congestion and tiny left pleural effusion. Basilar atelectasis. Independent Historian Clinical information obtained from an independent historian. History obtained from or confirmed by: Friend Critical Care Time Critical Care Time Critical Care Time: Yes Total Critical Care Time: 60 Attestation: Acute decompensated congestive heart failure with hypoxia requiring admission with hospitalist consultation Discharge Plan Discharge Clinical Impression: CHF (congestive heart failure), Hypoxia Patient Disposition: Admitted As Inpatient
[2023-08-09 11:22] LABS: MANUAL DIFF FLAG NO
[2023-08-09 11:30] LABS: Basophils Percent Auto 0.3 % (0-2); Eosinophils Absolute Auto 0.1 X10*3/uL (0.0-0.4); Eosinophils Percent Auto 1.1 % (0-4); Hematocrit 25.8 % (37.0-47.0); Hemoglobin 8.8 g/dl (12.0-16.0); Imm Gran Abs Auto 0.04 X10*3/uL (0.00-0.03); Imm Gran Pct Auto 0.3 % (0.0-0.4); Lymphocytes Percent Auto 8.7 % (20-40); Mean Corpuscular HGB Conc 34.1 g/dl (31.0-35.0); Mean Corpuscular Hemoglobin 34.5 pg (27.0-33.0); Mean Corpuscular Volume 101.2 fL (80.0-98.0); Mean Platelet Volume 9.3 fL (9.4-12.3); Monocytes Absolute Auto 1.1 X10*3/uL (0.1-1.2); Neutrophils Absolute Auto 9.4 x10*3/uL (2.0-8.3); Neutrophils Percent Auto 80.6 % (45-73); Platelet Count 165 X10*3/uL (160-400); Red Blood Count 2.55 X10*6/uL (4.20-5.50); Red Cell Distribution Width 16.2 % (11.0-16.0); White Blood Count 11.6 X10*3/uL (4.8-10.8)
[2023-08-09 11:38] LABS: INTERNATIONAL NORM RATIO 1.1 (0.9-1.1); Prothrombin Time 13.4 SEC (11.1-13.3)
[2023-08-09 11:41] LABS: Lactic Acid 1.4 mmol/L (0.5-2.0)
[2023-08-09 11:47] LABS: Alanine Aminotransferase 41 U/L (0-31); Albumin Level 3.9 g/dL (3.5-5.0); Alkaline Phosphatase 60 U/L (39-117); Anion Gap 11 (12-20); Aspartate Amino Transferase 19 U/L (5-31); Bilirubin Direct 0.5 mg/dL (0.0-0.5); Bilirubin Total 1.6 mg/dL (0.0-1.0); Blood Urea Nitrogen 22 mg/dL (9-16); Calcium 9.2 mg/dL (8.4-10.2); Carbon Dioxide 29 mmol/L (22-29); Chloride 107 mmol/L (96-108); Creatinine Clr Calc Pharmacy 27.8; Estimated Glomerular Filt Rate 36; Glucose Random 147 mg/dL (60-115); Potassium 3.4 mmol/L (3.3-5.1); Sodium 144 mmol/L (135-145)
[2023-08-09 11:51] LABS: B Type Natriuretic Peptide 1926 pg/mL (<100)
[2023-08-09 11:54] LABS: Troponin-I High Sensitivity 24.5 ng/L (<3.5-17.0)
[2023-08-09 12:06] LABS: Influenza A PCR NEGATIVE (Negative); Influenza B PCR NEGATIVE (Negative); Resp Syncy Virus RNA Qual PCR NEGATIVE (Negative); SARS COV2 PCR INHOUSE NEGATIVE (Negative)
--- NOTE | 2023-08-09 12:29 | P.HPHOSP_ITS ---
History of Present Illness Date of Service: 08/09/23 Attending physician on admission: Elton Cleveland Chief Complaint: SOB Pt is a 77-year-old female with a PMH significant for HFrEF (LV 43% on 06/12/22),?HTN, HLD, chronic macrocytic anemia (diagnosed at 21 years of age), right breast cancer s/p lumpectomy, hfc-suwyfvl-nocghzpia diabetes type 2, CKD 3, and gout who presents to the ED for evaluation of SOB, WIGGINS, and nonproductive cough. Patient states she is experienced some shortness of breath for the past 1-2 weeks, however symptoms increased dramatically after lunch yesterday. Patient initially thought that her breathing would improve, but symptoms persisted today so she came to the ED for further evaluation. Denies fever, chills, nausea, vomiting, abdominal pain. No lower leg edema. Denies chest pain/pressure or palpitations. Patient reports he has been compliant with her home Lasix and states she has not been hospitalized for a CHF exacerbation before. Denies ever experiencing similar symptoms 4. No history of COPD, asthma, or home O2 use. In the ED pt was afebrile, with BP initially elevated at 140 5/95, but then soft at 96/59, and hypoxic at 88% on RA. Labs were significant for leukocytosis of 11.6, H&H 8.8/25.8, creatinine 1.41, bilirubin 1.6, ALT 41, initial troponin 24.5, and BNP 1926. CXR showed mild central vascular congestion and left pleural effusion with bibasilar atelectasis. EKG demonstrated normal sinus rhythm without evidence of significant ST elevations or depressions. Pt was treated with furosemide 40 mg IV. Pt will be admitted to the hospital for treatment further evaluation of acute hypoxic respiratory failure in the setting of CHF exacerbation. Review of Systems 2 Review of Systems: SOB, WIGGINS Nonproductive cough Denies lower leg edema No chest pain/pressure, palpitations Denies fever, chills, nausea, vomiting, abdominal pain [facility] Medical History Cervix prolapsed into vagina History of blood transfusion (~02/01/23) HFrEF (heart failure with reduced ejection fraction) Cardiomyopathy Normal colonoscopy Type 2 diabetes mellitus Diverticulosis Irritable bowel syndrome Pulmonary emboli GERD (gastroesophageal reflux disease) Nephrolithiasis Hypoparathyroidism Papillary thyroid carcinoma HTN (hypertension) Polymyalgia rheumatica Hyperglycemia Chronic anemia Family History Sister CHF (congestive heart failure) Daughter Breast cancer Son Kidney stones Surgical History Breast mass, right H/O endoscopy History of cholecystectomy H/O total thyroidectomy Social History Household Members: Family Housing: House Alcohol intake: never Patient Tobacco Use Status: Former Tobacco user Quit Date: 1979 Smoked: 30 +/- Smoked in Last 30 Days: No Use of substances other than those prescribed or required for medical reasons: No Advance Directives: No Advance Directives Information Provided: Yes Current occupational status: retired 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 Allergies Allergy/AdvReac Type Severity Reaction Status Date / Time esomeprazole [From NEXIUM] Allergy Intermediate CHEST PAIN Verified 08/09/23 10:33 omeprazole [From PRILOSEC] Allergy Intermediate CHEST PAIN Verified 08/09/23 10:33 Home Medications ?Medication ?Instructions ?Recorded ?Confirmed ?Last Taken ?Type aspirin 81 mg tablet,delayed 81 mg PO DAILY 02/29/20 08/09/23 08/08/23 History release cholecalciferol (vitamin D3) 50 50 mcg PO DAILY 02/29/20 08/09/23 08/08/23 History mcg (2,000 unit) tablet (Vitamin D3) cyanocobalamin (vitamin B-12) 5,000 mcg PO BEDTIME 02/29/20 08/09/23 08/08/23 History 5,000 mcg disintegrating tablet folic acid 1 mg tablet 1 mg PO DAILY 02/29/20 08/09/23 08/08/23 History levothyroxine 100 mcg tablet 100 mcg PO DAILY 02/29/20 08/09/23 08/08/23 History vitamin E 400 unit tablet 450 mg PO DAILY 02/29/20 08/09/23 08/08/23 History allopurinol 300 mg tablet 300 mg PO DAILY 09/29/20 08/09/23 08/08/23 History carvedilol 6.25 mg tablet 6.25 mg PO BID 09/29/20 08/09/2324 History furosemide 20 mg tablet 20 mg PO DAILY 09/29/20 08/09/23 08/08/23 History metformin 500 mg tablet 500 mg PO BID 09/29/20 08/09/23 08/08/23 History rosuvastatin 20 mg tablet 20 mg PO BEDTIME 09/29/20 08/09/23 08/08/23 History gabapentin 100 mg capsule 100 mg PO BID 05/23/22 08/09/23 08/08/23 History cranberry 500 mg capsule 500 mg PO DAILY 11/20/22 08/09/23 08/08/23 History d-mannose 500 mg capsule (AZO 500 mg PO DAILY 11/20/22 08/09/23 08/08/23 History D-Mannose) Physical Exam 2 Vital Signs and Narrative: Vital Signs: Last Vital Signs Temp 98 F 08/09/23 10:31 Pulse 65 08/09/23 12:08 Resp 16 08/09/23 12:08 BP 96/59 L 08/09/23 12:08 Pulse Ox 88 L 08/09/23 12:10 O2 Del Method Room Air 08/09/23 12:10 Oxygen Flow Rate 2 08/09/23 11:53 BMI result Body Mass Index 24.2 Constitutional: Alert, in no acute distress. Mental Status: Oriented to person, place and time. Eyes: Pupils are equal, round, and reactive to light. Ear, Nose, and Throat: Oropharynx clear, mucous membranes moist. Ears and nose without deformities. Trachea midline. Respiratory: Clear to auscultation bilaterally. No wheezing, rales, or rhonchi. Cardiovascular: S1, S2 regular. No murmurs, rubs, or gallops. Gastrointestinal: Abdomen soft, non-tender, non-distended. Normal bowel sounds. Neurologic: Cranial nerves II-XII are grossly intact bilaterally. No focal neurological deficits. Moves all extremities spontaneously. Skin: Warm, dry. Extremities: No edema. Psychiatric: Normal mood and affect. Results Labs 08/09/23 11:13 08/09/23 11:13 Labs: Laboratory Results - last 24 hr 08/09/23 08/09/23 11:13 11:14 MCV 101.2 H MCH 34.5 H MCHC 34.1 RDW 16.2 H Plt Count 165 MPV 9.3 L Immature Gran % (Auto) 0.3 Neut % (Auto) 80.6 H Lymph % (Auto) 8.7 L [place] % (Auto) 9.0 Eos % (Auto) 1.1 Baso % (Auto) 0.3 Lymph # (Auto) 1.0 L [place] # (Auto) 1.1 Eos # (Auto) 0.1 Baso # (Auto) 0.0 Abs Immat Gran (auto) 0.04 H Absolute Neuts (auto) 9.4 H Absolute Nucleated RBC 0.000 Nucleated RBC % (auto) 0.0 PT 13.4 H INR 1.1 Anion Gap 11 L Estim Creat Clear Calc 27.8 Estimated GFR 36 Random Glucose 147 H Lactic Acid 1.4 Calcium 9.2 Total Bilirubin 1.6 H Direct Bilirubin 0.5 AST 19 ALT 41 H Alkaline Phosphatase 60 Troponin I High Sens 24.5 H B-Natriuretic Peptide 1926 H Total Protein 7.0 Albumin 3.9 Influenza Type A (PCR) NEGATIVE Influenza Type B (PCR) NEGATIVE RSV RNA Qual (PCR) NEGATIVE SARS-CoV-2 RNA (RT-PCR) NEGATIVE Imaging Radiologist's Impressions: Impressions Chest X-Ray 08/09/23 11:47 IMPRESSION: Suspect mild central vascular congestion and tiny left pleural effusion. Basilar atelectasis. Assessment and Plan (1) Hypoxia: Status: Acute (2) CHF (congestive heart failure): Status: Acute Plan Pt is a 77-year-old female with a PMH significant for HFrEF (LV 43% on 06/12/22),?HTN, HLD, chronic macrocytic anemia (diagnosed at 21 years of age), right breast cancer s/p lumpectomy, nsa-praiqbp-zefnlhnni diabetes type 2, CKD 3, and gout who presents to the ED for evaluation of SOB, WIGGINS, and nonproductive cough. Pt will be admitted to the hospital for treatment further evaluation of acute hypoxic respiratory failure in the setting of CHF exacerbation. Acute hypoxic respiratory in the setting of acute decompensated HFrEF exacerbation Patient with increased SOB, dyspnea, CXR with evidence of vascular congestion and pleural effusions, elevated BNP; no edema Unclear etiology: pt states compliant with home meds, no hx of alcohol or drug use, no recent illness, no known arrhythmia Patient given 40 mg Lasix IV in ED Will treat with Lasix 40 mg IV b.i.d. s Continue carvedilol and isosorbide mononitrate, hold home furosemide Follow lytes, mag, I/O Low-salt diet Will get echocardiogram Cardiology consult Monitor on telemetry Elevated troponin Initial troponin elevated 24.5 Patient asymptomatic; EKG without ischemic changes Likely type 2 in the setting of increased demand Check repeat troponin Tim-bykvtfv-kuuoyftcr type 2 diabetes with neuropathy Hold metformin Sliding-scale insulin, diabetic diet Continue gabapentin Hypothyroidism Continue levothyroxine HTN Continue home meds HLD Continue statin Gout Continue allopurinol Full Code Attending:?Dr. Cleveland DVT Prophylaxis: Lovenox Pt will require a hospitalization of at least two nights for treatment of?acute hypoxic respiratory failure in the setting of CHF exacerbation. Patient will require hospitalization for administration of IV diuretics and supplemental oxygen, close monitoring electrolytes and cardiac function, and specialist consultation with Cardiology. Quality Stroke Does the patient have a stroke diagnosis?: No VTE Prior VTE?: No VTE Risk Level:: Medical - moderate - high VTE Device Contraindication: Treatment Not Indicated VTE Drug Contraindication: N/A - Med Ordered
[2023-08-09] MEDS: Furosemide 40 MG/4 ML VIAL IVPUSH (12:31)
--- NOTE | 2023-08-09 13:07 | PHA.MEDREC ---
Addendum entered by Shavonne Stahl RPh 08/09/23 16:24: Patient now reporting only taking gabapentin 1 tablet at bedtime instead of BID Original Note: Pharmacy Consult ? Medication Reconciliation Pharmacy has completed the medication reconciliation.
--- NOTE | 2023-08-09 15:17 | PC.NURSE ---
PT HAD BEDSIDE ECHOCCARDIOGRAM DONE.
[2023-08-09] MEDS: Enoxaparin Sodium 30 MG/0.3 ML SYRINGE SUBCUT (16:18)
[2023-08-09] MEDS: Isosorbide Mononitrate 30 MG TAB.ER.24H PO (16:19)
[2023-08-09 18:36] LABS: Glucose, Whole Blood 116 mg/dL (60-115)
[2023-08-09] MEDS: Furosemide 40 MG TABLET PO (18:41)
[2023-08-09 20:37] LABS: Glucose, Whole Blood 215 mg/dL (60-115)
[2023-08-09] MEDS: Insulin Lispro 100 UNIT/ML 3 ML VIAL SUBCUT (20:49)
[2023-08-09] MEDS: Cyanocobalamin (Vitamin B-12) 1,000 MCG TABLET 5000 MCG PO (20:49)
[2023-08-09] MEDS: Atorvastatin Calcium 80 MG TABLET PO (20:49)
[2023-08-09] MEDS: Valsartan 40 MG TABLET PO (20:51)
[2023-08-09] MEDS: carvediloL 6.25 MG TABLET PO (20:51)
[2023-08-09] MEDS: Gabapentin 100 MG CAPSULE PO (20:52)
--- NOTE | 2023-08-09 22:20 | PC.NURSE ---
Pt up to bedside commode with 1 assist
--- NOTE | 2023-08-09 22:25 | MHC.CM.PN ---
IMM 08/08. Given original and copy to medical records. CM met with admitted patient with bed assignment pending. HCP reviewed, completed and signed. Copies given. Uploaded into [employer] and [facility]. HCP/daughter Katy Bethea ([phone]). Son lives with patient. Has a cane. No services. PCP and address verified. [employer] assessment completed. Pt has fuel assistance. Gets monthly additional food from [employer] (community food assistance). Pt has no other [employer] needs. Pt continues to drive. D/C plan: Home without services. Family will transport home. CM to follow for any discharge needs.
[2023-08-10] VITALS (10 sets, daily range): BP systolic 105–158; BP diastolic 51–75; PULSE 62–73; RESP 14–21; TEMP 36.2–36.8; O2SAT 92–98
[2023-08-10] MEDS: 0.9 % Sodium Chloride Flush 3 ML SYRINGE IVFLUSH ×4 (00:45→20:32)
[2023-08-10 05:43] LABS: Hematocrit 24.9 % (37.0-47.0); Hemoglobin 8.3 g/dl (12.0-16.0); Mean Corpuscular HGB Conc 33.3 g/dl (31.0-35.0); Mean Corpuscular Hemoglobin 34.7 pg (27.0-33.0); Mean Corpuscular Volume 104.2 fL (80.0-98.0); Mean Platelet Volume 9.6 fL (9.4-12.3); Platelet Count 145 X10*3/uL (160-400); Red Blood Count 2.39 X10*6/uL (4.20-5.50); Red Cell Distribution Width 16.3 % (11.0-16.0); White Blood Count 8.1 X10*3/uL (4.8-10.8)
[2023-08-10] MEDS: Levothyroxine Sodium 100 MCG TABLET PO (05:59)
[2023-08-10 06:00] LABS: Anion Gap 12 (12-20); Blood Urea Nitrogen 24 mg/dL (9-16); Calcium 8.9 mg/dL (8.4-10.2); Carbon Dioxide 31 mmol/L (22-29); Chloride 104 mmol/L (96-108); Creatinine Clr Calc Pharmacy 26.9; Estimated Glomerular Filt Rate 35; Glucose Random 122 mg/dL (60-115); Potassium 3.4 mmol/L (3.3-5.1); Sodium 144 mmol/L (135-145)
[2023-08-10 07:58] LABS: Glucose, Whole Blood 115 mg/dL (60-115)
[2023-08-10] MEDS: Isosorbide Mononitrate 30 MG TAB.ER.24H PO (08:12)
[2023-08-10] MEDS: Folic Acid 1 MG TABLET PO (08:13)
[2023-08-10] MEDS: Valsartan 40 MG TABLET PO ×2 (08:13→20:32)
[2023-08-10] MEDS: carvediloL 6.25 MG TABLET PO ×2 (08:13→20:31)
[2023-08-10] MEDS: Cholecalciferol (Vitamin D3) 25 MCG TABLET 50 MCG PO (08:13)
[2023-08-10] MEDS: allopurinoL 300 MG TABLET PO (08:13)
[2023-08-10] MEDS: Furosemide 40 MG TABLET PO (08:13)
[2023-08-10] MEDS: Aspirin Enteric Coated 81 MG TABLET.DR PO (08:14)
--- NOTE | 2023-08-10 10:27 | PM.CNCAR ---
History of Present Illness History of Present Illness Date of Service: 08/10/23 Chief complaint: CHF exacerbation Narrative: This is a cardiology consultation regarding congestive heart failure. Patient is generally seen by Dr. Comer. Last appointment was on November of last year. At that time, diagnosed with heart failure with reduced ejection fraction. She was euvolemic/compensated. She is on reasonable guideline based medical therapy including carvedilol, valsartan among others. She states that for the last few days, she has been feeling short of breath. However, it increased over the last day or so and then led to the hospitalization. Currently, receiving IV diuretics. She states that she is somewhat better but mainly in bed and hence she can not say for sure if she truly improved or not. No other complaints like chest pains. Review of Systems Review of Systems: Yes all other systems are reviewed and are negative Constitutional: Constitutional: Reports as per HPI and Reports no additional constitutional complaints Eyes: Eyes: Reports as per HPI and Denies no additional eye complaints ENT: Denies system reviewed and no additional complaints, except as documented and Reports as per HPI Cardiovascular: Cardiovascular: Reports as per HPI, Reports no additional cardiovascular complaints, Denies acrocyanosis, Denies cool extremities, Denies chest pain, Denies leg edema, Denies lightheadedness, Denies palpitations and Reports dyspnea Respiratory: Respiratory: Reports as per HPI, Denies no additional respiratory complaints and Reports dyspnea Gastrointestinal: Gastrointestinal: Reports as per HPI and Denies no additional gastrointestinal complaints Genitourinary: Genitourinary: Reports as per HPI Musculoskeletal: Musculoskeletal: Reports no additional musculoskeletal complaints and Reports as per HPI Integumentary/Breasts: Skin/Breast: Reports system reviewed and no additional complaints, except as docu Neurologic: Reports system reviewed and no additional complaints, except as documented and Reports as per HPI Psychiatric: Psychiatric: Reports no additional psychiatric complaints and Reports as per HPI Endocrine: Endocrine: Reports no additional endocrine complaints, Reports as per HPI and Denies palpitations Hematologic/Lymphatic: Hematologic/Lymphatic: Reports no additional hematologic/lymphatic complaints and Reports as per HPI Allergic/Immunologic: Allergic/Immunologic: Reports no additional allergic/immunologic complaints and Reports as per HPI PMFSH Past Medical History Medical History Cervix prolapsed into vagina History of blood transfusion (~02/01/23) HFrEF (heart failure with reduced ejection fraction) Cardiomyopathy Normal colonoscopy Type 2 diabetes mellitus Diverticulosis Irritable bowel syndrome Pulmonary emboli GERD (gastroesophageal reflux disease) Nephrolithiasis Hypoparathyroidism Papillary thyroid carcinoma HTN (hypertension) Polymyalgia rheumatica Hyperglycemia Chronic anemia Family History Family History Sister CHF (congestive heart failure) Daughter Breast cancer Son Kidney stones Surgical History Surgical History Breast mass, right H/O endoscopy History of cholecystectomy H/O total thyroidectomy Social History Social History Household Members: Children Household Members Other:: son Housing: House Do you presently have visiting nurse or other home services: No Alcohol intake: never Patient Tobacco Use Status: Former Tobacco user Quit Date: 1979 Smoked: 30 +/- Smoked in Last 30 Days: No Use of substances other than those prescribed or required for medical reasons: No Have you been hit, kicked, punched, or otherwise hurt by someone within the past year? 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 Allergies Allergy/AdvReac Type Severity Reaction Status Date / Time esomeprazole [From NEXIUM] Allergy Intermediate CHEST PAIN Verified 08/09/23 10:33 omeprazole [From PRILOSEC] Allergy Intermediate CHEST PAIN Verified 08/09/23 10:33 Active Medications: Current Medications Acetaminophen (Acetaminophen 325 Mg Tablet) 650 mg PO Q6H PRN PRN Reason: Pain, Mild (Pain Scale 1-3) Allopurinol (Allopurinol 300 Mg Tablet) 300 mg PO DAILY [place] Last Admin: 08/10/23 08:13 Dose: 300 mg Aspirin (Aspirin Enteric Coated 81 Mg Tablet.Dr) 81 mg PO DAILY [place] Last Admin: 08/10/23 08:14 Dose: 81 mg Atorvastatin Calcium (Atorvastatin Calcium 80 Mg Tablet) 80 mg PO BEDTIME [facility] Last Admin: 08/09/23 20:49 Dose: 80 mg Benzonatate (Benzonatate 100 Mg Capsule) 100 mg PO TID PRN PRN Reason: Cough Carvedilol (Carvedilol 6.25 Mg Tablet) 6.25 mg PO BID [facility]; Protocol Last Admin: 08/10/23 08:13 Dose: 6.25 mg Cyanocobalamin (Cyanocobalamin (Vitamin B-12) 1,000 Mcg Tablet) 5,000 mcg PO BEDTIME [facility] Last Admin: 08/09/23 20:49 Dose: 5,000 mcg Docusate Sodium (Docusate Sodium 100 Mg Capsule) 100 mg PO DAILY PRN PRN Reason: Constipation Enoxaparin Sodium (Enoxaparin Sodium 30 Mg/0.3 Ml Syringe) 30 mg SUBCUT Q24H [facility] Last Admin: 08/09/23 16:18 Dose: 30 mg Folic Acid (Folic Acid 1 Mg Tablet) 1 mg PO DAILY [facility] Last Admin: 08/10/23 08:13 Dose: 1 mg Furosemide (Furosemide 40 Mg Tablet) 40 mg PO BID@0900,1800 [facility]; Protocol Last Admin: 08/10/23 08:13 Dose: 40 mg Gabapentin (Gabapentin 100 Mg Capsule) 100 mg PO BEDTIME [facility] Last Admin: 08/09/23 20:52 Dose: 100 mg Glucose (Glucose Gel 15 Gm Gel..Gram.) 15 gm PO Q15M PRN; Protocol PRN Reason: per Hypoglycemia Standing Ord. Dextrose (D10) 250 mls @ 750 mls/hr IV Q15M PRN; Protocol PRN Reason: per Hypoglycemia Standing Ord. Insulin Human Lispro (Insulin Lispro 100 Unit/Ml 3 Ml Vial) 0 unit SUBCUT QIDACHS [facility]; Protocol Last Admin: 08/10/23 08:05 Dose: Not Given Isosorbide Mononitrate (Isosorbide Mononitrate 30 Mg Tab.Er.24h) 30 mg PO DAILY [facility]; Protocol Last Admin: 08/10/23 08:12 Dose: 30 mg Levothyroxine Sodium (Levothyroxine Sodium 100 Mcg Tablet) 100 mcg PO DAILY@0600 [facility] Last Admin: 08/10/23 05:59 Dose: 100 mcg Melatonin (Melatonin 3 Mg Tablet) 6 mg PO BEDTIME PRN PRN Reason: Insomnia Ondansetron HCl (Ondansetron Hcl 4 Mg/2 Ml Vial) 4 mg IVPUSH Q8H PRN PRN Reason: Nausea and Vomiting Sodium Chloride (0.9 % Sodium Chloride Flush 3 Ml Syringe) 3 ml IVFLUSH QSHIFT [facility] Last Admin: 08/10/23 08:16 Dose: 3 ml Valsartan (Valsartan 40 Mg Tablet) 40 mg PO BID [facility]; Protocol Last Admin: 08/10/23 08:13 Dose: 40 mg Vitamin D (Cholecalciferol (Vitamin D3) 25 Mcg Tablet) 50 mcg PO DAILY [facility] Last Admin: 08/10/23 08:13 Dose: 50 mcg Home Medications ?Medication ?Instructions ?Recorded ?Confirmed ?Last Taken ?Type aspirin 81 mg tablet,delayed 81 mg PO DAILY 02/29/20 08/09/23 08/08/23 History release cholecalciferol (vitamin D3) 50 50 mcg PO DAILY 02/29/20 08/09/23 08/08/23 History mcg (2,000 unit) tablet (Vitamin D3) cyanocobalamin (vitamin B-12) 5,000 mcg PO BEDTIME 02/29/20 08/09/23 08/08/23 History 5,000 mcg disintegrating tablet folic acid 1 mg tablet 1 mg PO DAILY 02/29/20 08/09/23 08/08/23 History levothyroxine 100 mcg tablet 100 mcg PO DAILY 02/29/20 08/09/23 08/08/23 History vitamin E 400 unit tablet 450 mg PO DAILY 02/29/20 08/09/23 08/08/23 History allopurinol 300 mg tablet 300 mg PO DAILY 09/29/20 08/09/23 08/08/23 History carvedilol 6.25 mg tablet 6.25 mg PO BID 09/29/20 08/09/23 08/08/23 History furosemide 20 mg tablet 20 mg PO DAILY 09/29/20 08/09/23 08/08/23 History metformin 500 mg tablet 500 mg PO BID 09/29/20 08/09/23 08/08/23 History rosuvastatin 20 mg tablet 20 mg PO BEDTIME 09/29/20 08/09/23 08/08/23 History gabapentin 100 mg capsule 100 mg PO BID 05/23/22 08/09/23 08/08/23 History cranberry 500 mg capsule 500 mg PO DAILY 11/20/22 08/09/23 08/08/23 History d-mannose 500 mg capsule (AZO 500 mg PO DAILY 11/20/22 08/09/23 08/08/23 History D-Mannose) Physical Exam Vital Signs: Vital Signs: Last Vital Signs Temp 97.6 F 08/10/23 07:53 Pulse 67 08/10/23 07:53 Resp 20 08/10/23 07:53 BP 120/58 L 08/10/23 08:13 Pulse Ox 97 08/10/23 07:53 O2 Del Method Nasal Cannula 08/10/23 07:53 O2 Flow Rate 3 08/10/23 07:53 Oxygen Flow Rate 2 08/09/23 11:53 BMI result Body Mass Index 24.2 Const: General: comfortable and no acute distress Orientation/consciousness: patient oriented x3 HEENT: Other: Unremarkable Head: Yes normal to inspection Neck: Neck: Yes normal visual inspection Chest: Chest palpation & inspection: normal inspection of the chest Resp: Auscultation: clear to auscultation bilaterally Cardio: Palpation: normal PMI Heart sounds: S1 normal heart sound present, S2 normal heart sound present, no gallops, no murmurs and no rubs GI: Palpation (GI): Soft to palpation Back/Spine/Pelvis: Other: unremarkable Skin: General skin exam: no rashes or lesions noted Neuro: General: patient oriented x3 Extrem: General: Yes normal to inspection Psych: Mental Status: mental status grossly normal Objective Labs and Meds 08/10/23 05:23 08/10/23 05:23 Lab results: Laboratory Results - last 24 hr 08/09/23 08/09/23 08/09/23 11:13 11:14 15:20 WBC 11.6 H RBC 2.55 L Hgb 8.8 L Hct 25.8 L MCV 101.2 H MCH 34.5 H MCHC 34.1 RDW 16.2 H Plt Count 165 MPV 9.3 L Immature Gran % (Auto) 0.3 Neut % (Auto) 80.6 H Lymph % (Auto) 8.7 L [place] % (Auto) 9.0 Eos % (Auto) 1.1 Baso % (Auto) 0.3 Lymph # (Auto) 1.0 L [place] # (Auto) 1.1 Eos # (Auto) 0.1 Baso # (Auto) 0.0 Abs Immat Gran (auto) 0.04 H Absolute Neuts (auto) 9.4 H Absolute Nucleated RBC 0.000 Nucleated RBC % (auto) 0.0 PT 13.4 H INR 1.1 Sodium 144 Potassium 3.4 D Chloride 107 Carbon Dioxide 29 Anion Gap 11 L BUN 22 H Creatinine 1.41 H Estim Creat Clear Calc 27.8 Estimated GFR 36 POC Glucose Random Glucose 147 H Lactic Acid 1.4 Calcium 9.2 Magnesium Total Bilirubin 1.6 H Direct Bilirubin 0.5 AST 19 ALT 41 H Alkaline Phosphatase 60 Troponin I High Sens 24.5 H 31.0 H B-Natriuretic Peptide 1926 H Total Protein 7.0 Albumin 3.9 Influenza Type A (PCR) NEGATIVE Influenza Type B (PCR) NEGATIVE RSV RNA Qual (PCR) NEGATIVE SARS-CoV-2 RNA (RT-PCR) NEGATIVE 08/09/23 08/09/23 08/10/23 18:32 20:34 05:23 WBC 8.1 RBC 2.39 L Hgb 8.3 L Hct 24.9 L MCV 104.2 H MCH 34.7 H MCHC 33.3 RDW 16.3 H Plt Count 145 L MPV 9.6 Immature Gran % (Auto) Neut % (Auto) Lymph % (Auto) [place] % (Auto) Eos % (Auto) Baso % (Auto) Lymph # (Auto) [place] # (Auto) Eos # (Auto) Baso # (Auto) Abs Immat Gran (auto) Absolute Neuts (auto) Absolute Nucleated RBC 0.000 Nucleated RBC % (auto) 0.0 PT INR Sodium 144 Potassium 3.4 Chloride 104 Carbon Dioxide 31 H Anion Gap 12 BUN 24 H Creatinine 1.46 H Estim Creat Clear Calc 26.9 Estimated GFR 35 POC Glucose 116 H 215 H Random Glucose 122 H Lactic Acid Calcium 8.9 Magnesium 2.0 Total Bilirubin Direct Bilirubin AST ALT Alkaline Phosphatase Troponin I High Sens B-Natriuretic Peptide Total Protein Albumin Influenza Type A (PCR) Influenza Type B (PCR) RSV RNA Qual (PCR) SARS-CoV-2 RNA (RT-PCR) 08/10/23 07:49 WBC RBC Hgb Hct MCV MCH MCHC RDW Plt Count MPV Immature Gran % (Auto) Neut % (Auto) Lymph % (Auto) [place] % (Auto) Eos % (Auto) Baso % (Auto) Lymph # (Auto) [place] # (Auto) Eos # (Auto) Baso # (Auto) Abs Immat Gran (auto) Absolute Neuts (auto) Absolute Nucleated RBC Nucleated RBC % (auto) PT INR Sodium Potassium Chloride Carbon Dioxide Anion Gap BUN Creatinine Estim Creat Clear Calc Estimated GFR POC Glucose 115 Random Glucose Lactic Acid Calcium Magnesium Total Bilirubin Direct Bilirubin AST ALT Alkaline Phosphatase Troponin I High Sens B-Natriuretic Peptide Total Protein Albumin Influenza Type A (PCR) Influenza Type B (PCR) RSV RNA Qual (PCR) SARS-CoV-2 RNA (RT-PCR) ECG Interpretation: EKG shows underlying sinus rhythm at 81/Min; nonspecific ST-T changes and slight prolongation of corrected QT at 480 milliseconds. Imaging Radiologist's impression: Impressions Chest X-Ray 08/09/23 11:47 IMPRESSION: Suspect mild central vascular congestion and tiny left pleural effusion. Basilar atelectasis. Assessment and Plan (1) Acute on chronic systolic and diastolic heart failure, NYHA class 3: Status: Acute Plan Last echocardiogram 2022 with LVEF of 43%. Mild diastolic dysfunction. Peak global longitudinal strain was diminished at that time at -9.9%. Mild aortic valve calcification with a small pericardial effusion over the left ventricle. Repeat echocardiogram performed this admission will need to be reviewed. Clinically, she does not seem to be overly volume overloaded but she might have been when she 1st presented. With regard to labs, cardiac BNP is 1926. Previous cardiac BNP we have on record from 2020 that shows BNP of 102. Hence there is a big change from a last reading although that was many years ago. Borderline troponins. Slight renal insufficiency but it is chronic. Also with chronic anemia. Chest x-ray with mild central vascular congestion/tiny left pleural effusion. Basilar atelectasis. Input output data does not seem to be accurate. Overall, suspect acute on chronic congestive heart failure. May continue IV diuretics for another day or so. We will review the echocardiogram. If insurance approves and affordable, then probably use Entresto instead of valsartan. Add Jardiance. Continue carvedilol. Her anemia might have also been a contributing factor but that seems chronic and she goes to Hematology for that. Will follow-up with you. Procedures Date of Service Date of Service: 08/10/23
[2023-08-10 11:20] LABS: Glucose, Whole Blood 183 mg/dL (60-115)
[2023-08-10] MEDS: Insulin Lispro 100 UNIT/ML 3 ML VIAL SUBCUT ×2 (11:34→20:32)
[2023-08-10] MEDS: Enoxaparin Sodium 30 MG/0.3 ML SYRINGE SUBCUT (14:34)
--- NOTE | 2023-08-10 14:44 | P.PNIM_ITS ---
Subjective Subjective Date of Service: 08/10/23 Interval History: Breathing markedly improved since admission. Still with O2 requirement Review of Systems Denies chest pain Admit to shortness of breath with movement Denies nausea vomiting diarrhea Denies fever chills Physical Exam 2 Vital Signs: Vital Signs: Last Vital Signs Temp 97.1 F 08/10/23 11:03 Pulse 62 08/10/23 11:03 Resp 20 08/10/23 11:03 BP 105/51 L 08/10/23 11:03 Pulse Ox 97 08/10/23 11:03 O2 Del Method Nasal Cannula 08/10/23 11:03 O2 Flow Rate 3 08/10/23 11:03 Oxygen Flow Rate 2 08/09/23 11:53 BMI result Body Mass Index 24.2 Const: Other: Awake alert no acute issues Resp: Other: Diminished at bases with faint crackles Cardio: Other: No S4; positive S1-S2; no S3 murmurs rubs or gallops GI: Other: Soft nontender nondistended normoactive bowel sounds Extrem: Other: No edema bilaterally Objective Data Active Medications Acetaminophen (Acetaminophen 325 Mg Tablet) 650 mg PO Q6H PRN PRN Reason: Pain, Mild (Pain Scale 1-3) Allopurinol (Allopurinol 300 Mg Tablet) 300 mg PO DAILY [facility] Last Admin: 08/10/23 08:13 Dose: 300 mg Documented By: CHERRY Aspirin (Aspirin Enteric Coated 81 Mg Tablet.) 81 mg PO DAILY [facility] Last Admin: 08/10/23 08:14 Dose: 81 mg Documented By: CHERRY Atorvastatin Calcium (Atorvastatin Calcium 80 Mg Tablet) 80 mg PO BEDTIME [facility] Last Admin: 08/09/23 20:49 Dose: 80 mg Documented By: BRYAN Benzonatate (Benzonatate 100 Mg Capsule) 100 mg PO TID PRN PRN Reason: Cough Carvedilol (Carvedilol 6.25 Mg Tablet) 6.25 mg PO BID [facility]; Protocol Last Admin: 08/10/23 08:13 Dose: 6.25 mg Documented By: CHERRY Cyanocobalamin (Cyanocobalamin (Vitamin B-12) 1,000 Mcg Tablet) 5,000 mcg PO BEDTIME [facility] Last Admin: 08/09/23 20:49 Dose: 5,000 mcg Documented By: BRYAN Docusate Sodium (Docusate Sodium 100 Mg Capsule) 100 mg PO DAILY PRN PRN Reason: Constipation Empagliflozin (Empagliflozin 10 Mg Tablet) 10 mg PO DAILY [facility] Enoxaparin Sodium (Enoxaparin Sodium 30 Mg/0.3 Ml Syringe) 30 mg SUBCUT Q24H [facility] Last Admin: 08/10/23 14:34 Dose: 30 mg Documented By: CHERRY Folic Acid (Folic Acid 1 Mg Tablet) 1 mg PO DAILY [facility] Last Admin: 08/10/23 08:13 Dose: 1 mg Documented By: CHERRY Furosemide (Furosemide 40 Mg/4 Ml Vial) 40 mg IVPUSH BID@0900,1800 [facility]; Protocol Gabapentin (Gabapentin 100 Mg Capsule) 100 mg PO BEDTIME [facility] Last Admin: 08/09/23 20:52 Dose: 100 mg Documented By: BRYAN Glucose (Glucose Gel 15 Gm Gel..Gram.) 15 gm PO Q15M PRN; Protocol PRN Reason: per Hypoglycemia Standing Ord. Dextrose (D10) 250 mls @ 750 mls/hr IV Q15M PRN; Protocol PRN Reason: per Hypoglycemia Standing Ord. Insulin Human Lispro (Insulin Lispro 100 Unit/Ml 3 Ml Vial) 0 unit SUBCUT QIDACHS [facility]; Protocol Last Admin: 08/10/23 11:34 Dose: 2 unit Documented By: CHERRY Isosorbide Mononitrate (Isosorbide Mononitrate 30 Mg Tab.Er.24h) 30 mg PO DAILY [facility]; Protocol Last Admin: 08/10/23 08:12 Dose: 30 mg Documented By: CHERRY Levothyroxine Sodium (Levothyroxine Sodium 100 Mcg Tablet) 100 mcg PO DAILY@0600 [facility] Last Admin: 08/10/23 05:59 Dose: 100 mcg Documented By: ANTOIC Melatonin (Melatonin 3 Mg Tablet) 6 mg PO BEDTIME PRN PRN Reason: Insomnia Ondansetron HCl (Ondansetron Hcl 4 Mg/2 Ml Vial) 4 mg IVPUSH Q8H PRN PRN Reason: Nausea and Vomiting Sodium Chloride (0.9 % Sodium Chloride Flush 3 Ml Syringe) 3 ml IVFLUSH QSHIFT [facility] Last Admin: 08/10/23 14:36 Dose: 3 ml Documented By: CHERRY Valsartan (Valsartan 40 Mg Tablet) 40 mg PO BID [facility]; Protocol Last Admin: 08/10/23 08:13 Dose: 40 mg Documented By: CHERRY Vitamin D (Cholecalciferol (Vitamin D3) 25 Mcg Tablet) 50 mcg PO DAILY [facility] Last Admin: 08/10/23 08:13 Dose: 50 mcg Documented By: CHERRY Labs 08/10/23 05:23 08/10/23 05:23 Labs: Laboratory Results - last 24 hr 08/09/23 08/09/23 08/09/23 15:20 18:32 20:34 MCV MCH MCHC RDW Plt Count MPV Absolute Nucleated RBC Nucleated RBC % (auto) Anion Gap Estim Creat Clear Calc Estimated GFR POC Glucose 116 H 215 H Random Glucose Calcium Magnesium Troponin I High Sens 31.0 H 08/10/23 08/10/23 08/10/23 05:23 07:49 11:16 MCV 104.2 H MCH 34.7 H MCHC 33.3 RDW 16.3 H Plt Count 145 L MPV 9.6 Absolute Nucleated RBC 0.000 Nucleated RBC % (auto) 0.0 Anion Gap 12 Estim Creat Clear Calc 26.9 Estimated GFR 35 POC Glucose 115 183 H Random Glucose 122 H Calcium 8.9 Magnesium 2.0 Troponin I High Sens Microbiology Microbiology Results: Microbiology 08/09/23 11:59 Blood Culture - Preliminary Blood - Venous No growth after 24 hours. 08/09/23 11:14 Blood Culture - Preliminary Blood - Venous No growth after 24 hours. Assessment and Plan (1) Acute on chronic systolic and diastolic heart failure, NYHA class 3: Status: Acute (2) Diabetes mellitus: Status: Acute Plan Pt is a 77-year-old female with a PMH significant for HFrEF (LV 43% on 06/12/22),?HTN, HLD, chronic macrocytic anemia (diagnosed at 21 years of age), right breast cancer s/p lumpectomy, [id number] diabetes type 2, CKD 3, and gout who presents to the ED for evaluation of SOB, WIGGINS, and nonproductive cough. Pt will be admitted to the hospital for treatment further evaluation of acute hypoxic respiratory failure in the setting of CHF exacerbation. 1.Acute hypoxic respiratory in the setting of acute decompensated HFrEF exacerbation -40 mg IV BID -add Jardiance 10 mg daily -continue carvedilol/isosorbide mononitrate, -follow renal and divalents -cardiology following 2.[id number] type 2 diabetes with neuropathy -acceptable control current therapies -lispro correctional scale -adjust as indicated 3.Hypothyroidism -continue levothyroxine 4.HTN -acceptable control on current therapies -adjust as indicated Continue home meds Full Code Lovenox Patient will require ongoing hospitalization for IV diuresis to treat acute heart failure Quality Stroke Does the patient have a stroke diagnosis?: No VTE Prior VTE?: No VTE Risk Level:: Medical - moderate - high VTE Device Contraindication: Treatment Not Indicated VTE Drug Contraindication: N/A - Med Ordered
[2023-08-10 15:55] LABS: Glucose, Whole Blood 94 mg/dL (60-115)
[2023-08-10] MEDS: metFORMIN HCl 500 MG TABLET PO (16:47)
[2023-08-10] MEDS: Furosemide 40 MG/4 ML VIAL IVPUSH (16:47)
[2023-08-10 20:05] LABS: Glucose, Whole Blood 196 mg/dL (60-115)
[2023-08-10] MEDS: Atorvastatin Calcium 80 MG TABLET PO (20:31)
[2023-08-10] MEDS: Gabapentin 100 MG CAPSULE PO (20:31)
[2023-08-10] MEDS: Cyanocobalamin (Vitamin B-12) 1,000 MCG TABLET 5000 MCG PO (20:31)
[2023-08-11] VITALS: BP 119/57; PULSE 61; RESP 16; TEMP 37.1; O2SAT 98
[2023-08-11 03:56] VITALS: BP 122/58; PULSE 56; RESP 16; TEMP 36.2; O2SAT 99
[2023-08-11] MEDS: Levothyroxine Sodium 100 MCG TABLET PO (05:43)
[2023-08-11 07:05] LABS: MANUAL DIFF FLAG NO
[2023-08-11 07:07] VITALS: BP 117/56; PULSE 60; RESP 20; TEMP 36.8; O2SAT 99
[2023-08-11 07:12] LABS: Basophils Percent Auto 0.3 % (0-2); Eosinophils Absolute Auto 0.2 X10*3/uL (0.0-0.4); Eosinophils Percent Auto 3.6 % (0-4); Hematocrit 23.9 % (37.0-47.0); Imm Gran Abs Auto 0.03 X10*3/uL (0.00-0.03); Imm Gran Pct Auto 0.5 % (0.0-0.4); Lymphocytes Absolute Auto 1.7 X10*3/uL (1.2-4.9); Lymphocytes Percent Auto 26.9 % (20-40); Mean Corpuscular HGB Conc 33.5 g/dl (31.0-35.0); Mean Corpuscular Hemoglobin 34.2 pg (27.0-33.0); Mean Corpuscular Volume 102.1 fL (80.0-98.0); Mean Platelet Volume 9.5 fL (9.4-12.3); Monocytes Absolute Auto 0.7 X10*3/uL (0.1-1.2); Monocytes Percent Auto 11.4 % (2-11); Neutrophils Absolute Auto 3.7 x10*3/uL (2.0-8.3); Neutrophils Percent Auto 57.3 % (45-73); Platelet Count 148 X10*3/uL (160-400); Red Blood Count 2.34 X10*6/uL (4.20-5.50); Red Cell Distribution Width 16.3 % (11.0-16.0); White Blood Count 6.5 X10*3/uL (4.8-10.8)
[2023-08-11 07:29] LABS: Glucose, Whole Blood 120 mg/dL (60-115)
[2023-08-11 07:35] LABS: Anion Gap 13 (12-20); Blood Urea Nitrogen 34 mg/dL (9-16); Calcium 8.8 mg/dL (8.4-10.2); Carbon Dioxide 27 mmol/L (22-29); Chloride 105 mmol/L (96-108); Estimated Glomerular Filt Rate 29; Glucose Random 117 mg/dL (60-115); Magnesium 2.2 mg/dL (1.6-2.6); Potassium 3.2 mmol/L (3.3-5.1); Sodium 142 mmol/L (135-145)
[2023-08-11] MEDS: Furosemide 40 MG/4 ML VIAL IVPUSH (07:35)
[2023-08-11] MEDS: Folic Acid 1 MG TABLET PO (07:35)
[2023-08-11] MEDS: Cholecalciferol (Vitamin D3) 25 MCG TABLET 50 MCG PO (07:35)
[2023-08-11] MEDS: Aspirin Enteric Coated 81 MG TABLET.DR PO (07:36)
[2023-08-11] MEDS: allopurinoL 300 MG TABLET PO (07:36)
[2023-08-11] MEDS: Isosorbide Mononitrate 30 MG TAB.ER.24H PO (07:36)
[2023-08-11] MEDS: Valsartan 40 MG TABLET PO (07:36)
[2023-08-11] MEDS: carvediloL 6.25 MG TABLET PO (07:36)
[2023-08-11] MEDS: metFORMIN HCl 500 MG TABLET PO (07:36)
[2023-08-11] MEDS: 0.9 % Sodium Chloride Flush 3 ML SYRINGE IVFLUSH (07:36)
--- NOTE | 2023-08-11 10:00 | PM.PNCARD ---
Subjective Subjective Date of Service: 08/11/23 Interval history: She states she feels fine. No more short of breath. Would like to get discharged. Review of Systems Review of Systems Yes all other systems are reviewed and are negative Constitutional: Reports as per HPI and Reports no additional constitutional complaints Eyes: Reports as per HPI and Denies no additional eye complaints Denies system reviewed and no additional complaints, except as documented and Reports as per HPI Cardiovascular: Reports as per HPI, Reports no additional cardiovascular complaints, Denies acrocyanosis, Denies cool extremities, Denies chest pain, Denies leg edema, Denies lightheadedness, Denies palpitations and Denies dyspnea Respiratory: Reports as per HPI, Denies no additional respiratory complaints and Denies dyspnea Gastrointestinal: Reports as per HPI and Denies no additional gastrointestinal complaints Genitourinary: Reports as per HPI Musculoskeletal: Reports no additional musculoskeletal complaints and Reports as per HPI Skin/Breast: Reports system reviewed and no additional complaints, except as docu Reports system reviewed and no additional complaints, except as documented and Reports as per HPI Psychiatric: Reports no additional psychiatric complaints and Reports as per HPI Endocrine: Reports no additional endocrine complaints, Reports as per HPI and Denies palpitations Hematologic/Lymphatic: Reports no additional hematologic/lymphatic complaints and Reports as per HPI Allergic/Immunologic: Reports no additional allergic/immunologic complaints and Reports as per HPI Physical Exam Vital Signs: Last Vital Signs Temp 98.3 F 08/11/23 07:07 Pulse 60 08/11/23 07:07 Resp 20 08/11/23 07:07 BP 117/56 L 08/11/23 07:07 Pulse Ox 99 08/11/23 07:07 O2 Del Method Nasal Cannula 08/11/23 07:07 O2 Flow Rate 3 08/11/23 07:07 Oxygen Flow Rate 2 08/09/23 11:53 BMI result Body Mass Index 24.2 Const General: comfortable and no acute distress Orientation/consciousness: patient oriented x3 HEENT Other: Unremarkable Head: Yes normal to inspection Neck Neck: Yes normal visual inspection Chest Chest palpation & inspection: normal inspection of the chest Resp Auscultation: clear to auscultation bilaterally Cardio Palpation: normal PMI Heart sounds: S1 normal heart sound present, S2 normal heart sound present, no gallops, no murmurs and no rubs GI Palpation (GI): Soft to palpation Back/Spine/Pelvis Other: unremarkable Skin General skin exam: no rashes or lesions noted Neuro General: patient oriented x3 Extrem General: Yes normal to inspection Psych Mental Status: mental status grossly normal Objective Labs and Meds 08/11/23 06:35 08/11/23 06:35 Lab results: Laboratory Results - last 24 hr 08/10/23 08/10/23 08/10/23 11:16 15:38 20:01 WBC RBC Hgb Hct MCV MCH MCHC RDW Plt Count MPV Immature Gran % (Auto) Neut % (Auto) Lymph % (Auto) Robertson % (Auto) Eos % (Auto) Baso % (Auto) Lymph # (Auto) Robertson # (Auto) Eos # (Auto) Baso # (Auto) Abs Immat Gran (auto) Absolute Neuts (auto) Absolute Nucleated RBC Nucleated RBC % (auto) Sodium Potassium Chloride Carbon Dioxide Anion Gap BUN Creatinine Estim Creat Clear Calc Estimated GFR POC Glucose 183 H 94 196 H Random Glucose Calcium Magnesium 08/11/23 08/11/23 06:35 07:11 WBC 6.5 RBC 2.34 L Hgb 8.0 L Hct 23.9 L MCV 102.1 H MCH 34.2 H MCHC 33.5 RDW 16.3 H Plt Count 148 L MPV 9.5 Immature Gran % (Auto) 0.5 H Neut % (Auto) 57.3 Lymph % (Auto) 26.9 Robertson % (Auto) 11.4 H Eos % (Auto) 3.6 Baso % (Auto) 0.3 Lymph # (Auto) 1.7 Robertson # (Auto) 0.7 Eos # (Auto) 0.2 Baso # (Auto) 0.0 Abs Immat Gran (auto) 0.03 Absolute Neuts (auto) 3.7 Absolute Nucleated RBC 0.000 Nucleated RBC % (auto) 0.0 Sodium 142 Potassium 3.2 L Chloride 105 Carbon Dioxide 27 Anion Gap 13 BUN 34 H Creatinine 1.70 H Estim Creat Clear Calc 23.0 Estimated GFR 29 POC Glucose 120 H Random Glucose 117 H Calcium 8.8 Magnesium 2.2 Progress Note: A&P Assessment and plan (1) Acute on chronic systolic and diastolic heart failure, NYHA class 3: Status: Acute Plan Last echocardiogram 2022 with LVEF of 43%. Mild diastolic dysfunction. Peak global longitudinal strain was diminished at that time at -9.9%. Mild aortic valve calcification with a small pericardial effusion over the left ventricle. In the repeat echocardiogram this admission, LVEF is 30% with advanced diastolic dysfunction. Basal inferior/inferolateral ortiz appear akinetic. Left atrium severely dilated. There was also severe mitral regurgitation. With regard to labs, cardiac BNP is 1926. Previous cardiac BNP we have on record from 2020 that shows BNP of 102. Hence there is a big change from a last reading although that was many years ago. Borderline troponins. Slight renal insufficiency but it is chronic. Also with chronic anemia. Chest x-ray with mild central vascular congestion/tiny left pleural effusion. Basilar atelectasis. Overall, suspected acute on chronic systolic and diastolic congestive heart failure. Mitral regurgitation is also new. Clinically, she seems euvolemic. Per Dr. Enriquez, patient/family would like to leave meds without much of changes. Advised Jardiance but they prefer not to have it. Otherwise, oral diuretics. Patient states that she feels fine and would like to go home. Will arrange follow-up as an outpatient for further care. Discussed with Dr. Enriquez. Time Spent With Patient Time: Total time managing care of this patient today ____ minutes. Progress Note: Quality Stroke Does the patient have a stroke diagnosis?: No Procedures Date of Service Date of Service: 08/11/23
--- NOTE | 2023-08-11 11:19 | P.DS_ITS ---
DS: Providers Provider Date of Service: 08/11/23 Date of admission: 08/09/23 13:35 Date of discharge: 08/11/23 Primary care physician: John Avina DO Consults: 08/09/23 13:40 Consult to Cardiology Routine Consulting Provider: [facility] Cardiovascular Services Reason for consultation: CHF exacerbation DS: Diagnosis Discharge Diagnosis (1) Acute on chronic systolic and diastolic heart failure, NYHA class 3: Status: Acute (2) Diabetes mellitus: Status: Acute (3) HTN (hypertension): Status: Acute DS: Summary Hospital Course Hospital Course: 77-year-old female with a PMH significant for HFrEF (LV 43% on 06/12/22),?HTN, HLD, chronic macrocytic anemia (diagnosed at 21 years of age), right breast cancer s/p lumpectomy, [id number] diabetes type 2, CKD 3, and gout who presents to the ED for evaluation of SOB, WIGGINS, and nonproductive cough. Patient states she is experienced some shortness of breath for the past 1-2 weeks, however symptoms increased dramatically after lunch yesterday. Patient initially thought that her breathing would improve, but symptoms persisted today so she came to the ED for further evaluation. Denies fever, chills, nausea, vomiting, abdominal pain. No lower leg edema. Denies chest pain/pressure or palpitations. Patient reports he has been compliant with her home Lasix and states she has not been hospitalized for a CHF exacerbation before. Denies ever experiencing similar symptoms 4. No history of COPD, asthma, or home O2 use. In the ED pt was afebrile, with BP initially elevated at 140 5/95, but then soft at 96/59, and hypoxic at 88% on RA. Labs were significant for leukocytosis of 11.6, H&H 8.8/25.8, creatinine 1.41, bilirubin 1.6, ALT 41, initial troponin 24.5, and BNP 1926. CXR showed mild central vascular congestion and left pleural effusion with bibasilar atelectasis. EKG demonstrated normal sinus rhythm without evidence of significant ST elevations or depressions. Pt was treated with furosemide 40 mg IV. Pt will be admitted to the hospital for treatment further evaluation of acute hypoxic respiratory failure in the setting of CHF exacerbation. Hospital Course Patient admitted to telemetry where monitor failed to demonstrate any tachyarrhythmias. She was seen in consultation by Cardiology; repeat 2D echo revealed an left ventricular ejection fraction of 30% at this time. She was aggressively diuresed with IV Lasix twice daily and responded well to therapies. Her metformin was ultimately held given her worsening creatinine in the backdrop of aggressive diuresis. Cardiology recommended Jardiance however both patient and daughter have reservations about starting this medicine without talking to PCP. At this point in time she is medically acceptable to returned to home on all her previous medicines with the exception of metformin. This can be restarted at Dr. Bryson Wood's discretion based on forthcoming labs and his experience with the patient. She be discharged home and will ask VNA services to follow her in the immediate post hospitalization. Time Attestation Discharge Coordination Time (in mins): 35 Quality: Safe Use of Opioids Does Pt have an Active Cancer Diagnosis on the Problem List?: No Quality: Stroke Does the patient have a stroke diagnosis?: No Physical Exam Vital Signs: Vital Signs: Last Vital Signs Temp 98.3 F 08/11/23 07:07 Pulse 60 08/11/23 07:07 Resp 20 08/11/23 07:07 BP 117/56 L 08/11/23 07:07 Pulse Ox 99 08/11/23 07:07 O2 Del Method Nasal Cannula 08/11/23 07:07 O2 Flow Rate 3 08/11/23 07:07 Oxygen Flow Rate 2 08/09/23 11:53 BMI result Body Mass Index 24.2 Const: Other: Awake alert no acute issues Resp: Other: Diminished at bases with faint crackles Cardio: Other: No S4; positive S1-S2; no S3 murmurs rubs or gallops GI: Other: Soft nontender nondistended normoactive bowel sounds Extrem: Other: No edema bilaterally DS: Data Data Completed and Pending Labs on day of discharge: Laboratory Results - last 24 hr 08/10/23 08/10/23 08/10/23 11:16 15:38 20:01 WBC RBC Hgb Hct MCV MCH MCHC RDW Plt Count MPV Immature Gran % (Auto) Neut % (Auto) Lymph % (Auto) [place] % (Auto) Eos % (Auto) Baso % (Auto) Lymph # (Auto) [place] # (Auto) Eos # (Auto) Baso # (Auto) Abs Immat Gran (auto) Absolute Neuts (auto) Absolute Nucleated RBC Nucleated RBC % (auto) Sodium Potassium Chloride Carbon Dioxide Anion Gap BUN Creatinine Estim Creat Clear Calc Estimated GFR POC Glucose 183 H 94 196 H Random Glucose Calcium Magnesium 08/11/23 08/11/23 06:35 07:11 WBC 6.5 RBC 2.34 L Hgb 8.0 L Hct 23.9 L MCV 102.1 H MCH 34.2 H MCHC 33.5 RDW 16.3 H Plt Count 148 L MPV 9.5 Immature Gran % (Auto) 0.5 H Neut % (Auto) 57.3 Lymph % (Auto) 26.9 Clinton % (Auto) 11.4 H Eos % (Auto) 3.6 Baso % (Auto) 0.3 Lymph # (Auto) 1.7 [place] # (Auto) 0.7 Eos # (Auto) 0.2 Baso # (Auto) 0.0 Abs Immat Gran (auto) 0.03 Absolute Neuts (auto) 3.7 Absolute Nucleated RBC 0.000 Nucleated RBC % (auto) 0.0 Sodium 142 Potassium 3.2 L Chloride 105 Carbon Dioxide 27 Anion Gap 13 BUN 34 H Creatinine 1.70 H Estim Creat Clear Calc 23.0 Estimated GFR 29 POC Glucose 120 H Random Glucose 117 H Calcium 8.8 Magnesium 2.2 Preliminary micro results at discharge 08/09/23 11:59 Blood Culture - Preliminary Blood - Venous No growth after 24 hours. 08/09/23 11:14 Blood Culture - Preliminary Blood - Venous No growth after 24 hours. Discharge Plan Discharge Anticipated Discharge Date/Time: 08/11/23 11:15 Patient Disposition: Home Health Service Discharge Diagnosis: Acute on chronic diastolic CHF Referrals: John Avina DO [Primary Care Provider] - 1 Week Discharge Medications: Continued isosorbide mononitrate 30 mg tablet extended release 24 hr 30 mg PO DAILY 90 Days Qty: 90 3RF valsartan 40 mg tablet 40 mg PO BID 90 Days Qty: 180 3RF aspirin 81 mg Tablet,Delayed Release (Dr/Ec) 81 mg PO DAILY levothyroxine 100 mcg tablet 100 mcg PO DAILY vitamin E 400 unit Tablet 450 mg PO DAILY folic acid 1 mg Tablet 1 mg PO DAILY cholecalciferol (vitamin D3) [Vitamin D3] 50 mcg (2,000 unit) Tablet 50 mcg PO DAILY cyanocobalamin (vitamin B-12) 5,000 mcg Tablet,Disintegrating 5,000 mcg PO BEDTIME carvedilol 6.25 mg tablet 6.25 mg PO BID rosuvastatin 20 mg tablet 20 mg PO BEDTIME allopurinol 300 mg tablet 300 mg PO DAILY furosemide 20 mg tablet 20 mg PO DAILY gabapentin 100 mg capsule 100 mg PO BID AZO D-Mannose 500 mg capsule 500 mg PO DAILY cranberry 500 mg capsule 500 mg PO DAILY Rx Instructions: administer with meals Discontinued metformin 500 mg tablet 500 mg PO BID Discharge Orders: Discharge Order (Routine); Ordered 08/11/23 Ordered By: Garry Enriquez Diet: Advance to usual diet Activity on Discharge: As tolerated Stand Alone Forms: Patient Portal Discharge page Print Language: [place] Care Plan Goals: Resume all medicines as taken prior to the hospital with the exception of metformin. Follow-up with Dr. Avina and he can decide when to restart metformin based on your labs Health Concerns: Follow-up with Dr. Comer in office. They will call you to book a follow-up Plan of Treatment: Cardiology recommended Jardiance however you can discuss this with Dr. Avina based on co-pay and side effects as we discussed Assessment: See discharge summary
[2023-08-11 11:21] VITALS: BP 135/63; PULSE 66; RESP 20; TEMP 36.2; O2SAT 95
--- NOTE | 2023-08-11 11:24 | W.MHC.F2F ---
Service Date Service Date: 08/11/23 Encounter Date of encounter: 08/11/23 Encounter: Acute hospitalization Reasons for Services Signs and symptoms assessed: Signs and symptoms of congestive heart failure including lung sounds and respiratory rate and sats Reason for intermediate: medication management, teach disease management and other (Monitoring lung sounds in O2 saturation) Homebound: Leaving the home is medically contraindicated at this time without the asist of a device and/or another person due th the listed conditions above and below. Reason homebound: unsteady gait / fall risk and unable to drive Certification: Based on the above findings, I certify that this patient is confined to the home and needs intermittent intermediate care, physical therapy and/or speech therapy, or continues to need occupational therapy. The patient is under my care, and I have initiated the establishment of the plan of care. The patient will be followed by a physician who will periodically review the plan of care. Time Spent With Patient Time: Total time managing care of this patient today ____ minutes.
--- NOTE | 2023-08-11 11:27 | MHC.CM.PN ---
Patient has been medically cleared for dc to home/with services.A referral was made to [facility], who has been made aware of today's dc. Last IMM addressed on 08/09/2023.
[2023-08-11 11:40] LABS: Glucose, Whole Blood 151 mg/dL (60-115)
== END 2023-08-11 12:11 | disposition home or self-care (01) | DRG 291 ==
LOC: HO.ED 12:18 → HO.EDOVER 13:46 → HO.IMC 17:07 → HO.EDOVER 17:35 → HO.IMC 08-10 05:18
PROVIDERS: Family Medicine; Nurse Practitioner Family; Admitting Provider Student in an Organized Health Care Education/Training Program; Emergency Provider Emergency Medicine; PCP Internal Medicine; Visit Provider Hospitalist
DX: I13.0 Hypertensive heart and chronic kidney disease with heart failure and stage 1 through stage 4 chronic kidney disease, or unspecified chronic kidney disease (principal); I50.33 Acute on chronic diastolic (congestive) heart failure; J96.01 Acute respiratory failure with hypoxia; I70.0 Atherosclerosis of aorta; I34.0 Nonrheumatic mitral (valve) insufficiency; N18.30 Chronic kidney disease, stage 3 unspecified; E89.0 Postprocedural hypothyroidism; D63.1 Anemia in chronic kidney disease; E11.40 Type 2 diabetes mellitus with diabetic neuropathy, unspecified; E11.22 Type 2 diabetes mellitus with diabetic chronic kidney disease; M35.3 Polymyalgia rheumatica; Z20.822 Contact with and (suspected) exposure to COVID-19; Z85.850 Personal history of malignant neoplasm of thyroid; Z87.891 Personal history of nicotine dependence; Z79.82 Long term (current) use of aspirin; Z79.890 Hormone replacement therapy; Z79.899 Other long term (current) drug therapy
CPT/HCPCS: 0241U; 36415; 71046; 80048; 80076; 82947; 83605; 83735; 83880; 84484; 85025; 85027; 85610; 87040; 93005; 93306; 99285; J1650; J1940; Q9957

== ENCOUNTER → 2023-08-09 10:51 | Outpatient (BNV) | payer MEDICARE, SELFPAY | PROVIDERS: Admitting Provider Student in an Organized Health Care Education/Training Program; Emergency Provider Emergency Medicine; PCP Internal Medicine; Visit Provider Internal Medicine | DX: R06.02 Shortness of breath (principal) | CPT/HCPCS: 93010; 93306 ==

== ENCOUNTER → 2023-08-09 13:35 | Outpatient (BNV) | payer MEDICARE, SELFPAY | PROVIDERS: Admitting Provider Student in an Organized Health Care Education/Training Program; Emergency Provider Emergency Medicine; PCP Internal Medicine; Visit Provider Internal Medicine | DX: I50.43 Acute on chronic combined systolic (congestive) and diastolic (congestive) heart failure (principal) | CPT/HCPCS: 99223; 99233 ==

== ENCOUNTER → 2023-08-09 13:35 | Outpatient (BNV) | payer MEDICARE, SELFPAY | PROVIDERS: Admitting Provider Student in an Organized Health Care Education/Training Program; Emergency Provider Emergency Medicine; PCP Internal Medicine; Visit Provider Hospitalist | DX: I50.9 Heart failure, unspecified (principal); J96.01 Acute respiratory failure with hypoxia | CPT/HCPCS: 99223; 99232; 99239; G0180 ==

== ENCOUNTER 2023-08-15 11:21 | Outpatient (REF) | payer MEDICARE, SELFPAY ==
[2023-08-15 13:30] LABS: MANUAL DIFF FLAG NO
[2023-08-15 13:52] LABS: Basophils Percent Auto 0.5 % (0-2); Eosinophils Absolute Auto 0.2 X10*3/uL (0.0-0.4); Eosinophils Percent Auto 3.9 % (0-4); Hematocrit 27.1 % (37.0-47.0); Hemoglobin 8.8 g/dl (12.0-16.0); Imm Gran Abs Auto 0.02 X10*3/uL (0.00-0.03); Imm Gran Pct Auto 0.4 % (0.0-0.4); Lymphocytes Absolute Auto 1.1 X10*3/uL (1.2-4.9); Lymphocytes Percent Auto 19.9 % (20-40); Mean Corpuscular HGB Conc 32.5 g/dl (31.0-35.0); Mean Corpuscular Hemoglobin 34.5 pg (27.0-33.0); Mean Corpuscular Volume 106.3 fL (80.0-98.0); Mean Platelet Volume 9.6 fL (9.4-12.3); Monocytes Absolute Auto 0.6 X10*3/uL (0.1-1.2); Monocytes Percent Auto 10.7 % (2-11); Neutrophils Absolute Auto 3.6 x10*3/uL (2.0-8.3); Neutrophils Percent Auto 64.6 % (45-73); Platelet Count 190 X10*3/uL (160-400); Red Blood Count 2.55 X10*6/uL (4.20-5.50); Red Cell Distribution Width 15.9 % (11.0-16.0); White Blood Count 5.6 X10*3/uL (4.8-10.8)
[2023-08-15 13:59] LABS: Appearance Urine Cloudy; Color Urine Yellow; Glucose Urine UA Negative (Negative); Leukocyte Esterase Urine Moderate (2+) (Negative); Nitrite Urine Positive (Negative); PH 5.5 (5.0-9.0); UMIC TRIGGER UA YES; Urine Blood Negative (Negative); Urine Ketones Negative (Negative); Urine Protein 30 (1+) mg/dL (Neg-Trace)
[2023-08-15 14:00] LABS: Alanine Aminotransferase 37 U/L (0-31); Albumin Level 3.9 g/dL (3.5-5.0); Alkaline Phosphatase 59 U/L (39-117); Anion Gap 13 (12-20); Aspartate Amino Transferase 25 U/L (5-31); Bilirubin Direct 0.3 mg/dL (0.0-0.5); Bilirubin Total 0.6 mg/dL (0.0-1.0); Blood Urea Nitrogen 26 mg/dL (9-16); Calcium 9.1 mg/dL (8.4-10.2); Carbon Dioxide 29 mmol/L (22-29); Chloride 106 mmol/L (96-108); Estimated Glomerular Filt Rate 36; Glucose Random 174 mg/dL (60-115); Potassium 3.6 mmol/L (3.3-5.1); Sodium 144 mmol/L (135-145); Total Protein 7.2 g/dL (6.5-8.0)
[2023-08-15 14:01] LABS: Bacteria Urine 4+ (None Seen); RBC Urine 0-2 /HPF (0-2); WBC Urine >50 /HPF (0-5)
[2023-08-15 14:09] LABS: B Type Natriuretic Peptide 765 pg/mL (<100)
[2023-08-15 14:20] LABS: TSH reflex Free T4 3.45 uIU/mL (0.32-4.0)
== END 2023-08-15 11:22 | disposition home or self-care (01) ==
LOC: HO.HMGCLDS 11:21
PROVIDERS: PCP Internal Medicine; Visit Provider Internal Medicine
DX: I50.22 Chronic systolic (congestive) heart failure (principal); I25.10 Atherosclerotic heart disease of native coronary artery without angina pectoris; E89.0 Postprocedural hypothyroidism; E11.29 Type 2 diabetes mellitus with other diabetic kidney complication; D50.0 Iron deficiency anemia secondary to blood loss (chronic); N28.9 Disorder of kidney and ureter, unspecified; M10.072 Idiopathic gout, left ankle and foot
CPT/HCPCS: 36415; 80048; 80076; 81001; 83880; 84443; 85025

== ENCOUNTER 2023-08-20 12:58 | Outpatient (AMB) | payer MEDICARE, SELFPAY ==
[2023-08-20 13:01] VITALS: BP 120/72; PULSE 61; BMI 25.6
--- NOTE | 2023-08-20 13:01 | A.OFFVIS_ITS ---
Vital Signs 08/20/23 13:01 Height 5 ft 1 in Weight 135 lb 5.821 oz BMI 25.6 BP 120/72 Blood Pressure Location Lt brachial Position Sitting Pulse 61 Pulse Source Pulse Oximeter Intake Visit Reasons: follow-up [facility] [place] [facility] [employer] Supervisor Required: No Allergies esomeprazole [From NEXIUM] Allergy (Intermediate, Verified 08/20/23 13:03) CHEST PAIN omeprazole [From PRILOSEC] Allergy (Intermediate, Verified 08/20/23 13:03) CHEST PAIN Medication List - Last Reconciled 08/20/23 by Lia Doshi NP-C allopurinol 300 mg PO DAILY aspirin 81 mg PO DAILY carvedilol 6.25 mg PO BID cholecalciferol (vitamin D3) (Vitamin D3) 50 mcg PO DAILY cranberry 500 mg PO DAILY cyanocobalamin (vitamin B-12) 5,000 mcg PO BEDTIME d-mannose (AZO D-Mannose) 500 mg PO DAILY folic acid 1 mg PO DAILY furosemide 20 mg PO DAILY gabapentin 100 mg PO BID isosorbide mononitrate ER 30 mg PO DAILY 90 days levothyroxine 100 mcg PO DAILY rosuvastatin 20 mg PO BEDTIME valsartan 40 mg PO BID 90 days vitamin E 450 mg PO DAILY HPI HPI follow-up [facility] [place] : Details: Tonia is a 77-year-old female past medical history of hypertension, diabetes, chronic kidney disease, heart failure with reduced EF, nonischemic cardiomyopathy who was recently admitted to [facility] with decompensated heart failure. She was treated with IV Lasix and sent home on her usual dose of Lasix 20 mg daily. She was found to have a further reduction in her EF and severe mitral regurgitation. Today she presents for follow-up. Today she reports she has been doing okay since her hospital discharge. She states her breathing is back to its baseline. She sleeps with 2 pillows which is her norm. She has not having any cough, PND, edema. No chest discomfort at rest or with activity. No heart palpitations, lightheadedness, presyncope, syncope, falls. She has known chronic anemia but denies any signs of. She follows with hematology. She recently underwent a breast lumpectomy and tells me that the results came out good. [facility] Medical History CHF (congestive heart failure) Diabetes mellitus Cervix prolapsed into vagina History of blood transfusion (~02/01/23) HFrEF (heart failure with reduced ejection fraction) Cardiomyopathy Normal colonoscopy Type 2 diabetes mellitus Diverticulosis Irritable bowel syndrome Pulmonary emboli GERD (gastroesophageal reflux disease) Nephrolithiasis Hypoparathyroidism Papillary thyroid carcinoma HTN (hypertension) Polymyalgia rheumatica Hyperglycemia Chronic anemia Surgical History Breast mass, right H/O endoscopy History of cholecystectomy H/O total thyroidectomy Family History Sister CHF (congestive heart failure) Daughter Breast cancer Son Kidney stones Social History Household Members: Children Household Members Other:: son Housing: House Do you presently have visiting nurse or other home services: No Alcohol intake: never Patient Tobacco Use Status: Former Tobacco user Quit Date: 1979 Smoked: 30 +/- Current occupational status: retired Current occupation: Right Handed Review of Systems Const All systems reviewed & are unremarkable except as noted in HPI and below ENT Denies dizziness Card Denies chest pain, Denies chest pain at rest, Denies chest pain with activity, Denies rapid heart rate, Denies pedal edema, Denies edema, Denies leg edema, Denies lightheadedness, Denies palpitations, Reports dyspnea, Reports dyspnea on exertion and Denies orthopnea Resp Denies cough, Reports dyspnea and Reports dyspnea on exertion GI Denies hematochezia and Denies change in stool character Musc Denies abnormal gait, Denies limited range of motion, Denies muscle cramps, Denies muscle weakness, Denies numbness, Denies radiating pain into limb, Denies stiffness and Denies tingling Neuro Denies abnormal gait, Denies dizziness, Denies numbness and Denies tingling Endo Denies palpitations Physical Exam Vital Signs: Last Vital Signs Pulse 61 08/20/23 13:01 BP 120/72 08/20/23 13:01 BMI result Body Mass Index 25.6 Const General: cooperative, healthy appearing, comfortable and no acute distress Orientation/consciousness: patient oriented x3 Neck Neck: Yes normal visual inspection and Yes no JVD Resp Effort & Inspection: normal respiratory effort Auscultation: clear to auscultation bilaterally, no rales, no rhonchi and no wheezes Cardio Jugular venous distension: no JVD Rate: regular rate Rhythm: regular rhythm Heart sounds: S1 normal heart sound present, S2 normal heart sound present and no rubs Neuro General: patient oriented x3 Extrem General: Yes normal to inspection and No no pedal edema Psych Appearance: grossly normal Mental Status: mental status grossly normal Speech and movement: Normal speech and movement present Assessment & Plan Assessment & Plan (1) HFrEF (heart failure with reduced ejection fraction): Code(s): I50.20 - Unspecified systolic (congestive) heart failure Category: Medical Plan: History of heart failure with reduced EF. Last echocardiogram in our system 06/12/2022 showing EF 43%, mild calcification of the aortic valve, small effusion over the LV, mild thickening/calcification of the mitral valve leaflets, no regurgitation. She had been on Lasix 20 mg daily. She was admitted to [facility] recently with shortness of breath. She had findings consistent with decompensated heart failure. Echocardiogram showed EF 30%, grade 3 diastolic dysfunction, basal inferior and basal inferior lateral segments akinetic, left atrium severely dilated, severe mitral valve regurgitation, mild AR. She was diuresed and sent home on her usual Lasix 20 mg daily. Audience was recommended however patient declined. Previously Entresto was ordered however she was not able to afford the co-pay. She has been on valsartan and carvedilol. Reviewed with Dr. Comer. Will plan for diagnostic cardiac catheterization, PCI if warranted. Reason for the procedure, potential findings and risks including bleeding, infection, CHRISTIANO, [place], stroke reviewed with her in detail. She is agreeable to proceed. She plans to discuss with her daughter as well. Will order preprocedure labs including CBC, BMP, PT/INR. Cardiology follow-up 2 weeks post cath. On follow-up will need to discuss plan for mitral regurgitation evaluation. LUCI has been recommended. Patient informed that if her breathing worsens she is to increase her Lasix to 40 mg daily. Signs and symptoms of heart failure reviewed with her. Emergency care if needed for symptoms. (2) History of cardiomyopathy: Code(s): Z86.79 - Personal history of other diseases of the circulatory system Category: Medical Plan: History cardiomyopathy, previously thought to be nonischemic. Last EF 43% 1 year ago. A nuclear stress test done 06/20/2022 showed [id number] reversible defect in the apical part of the anterior septum, anterior wall, ape x, adjacent lateral and inferior lateral wall, which could be related to ischemia, less likely artifact. At that time isosorbide was added. No reports of anginal sounding symptoms. Echocardiogram done on recent heart failure admission as above with further reduction in EF and regional wall motion abnormality. Will need cardiac catheterization for further evaluation. Today she appears euvolemic. Will continue on current med management including valsartan and carvedilol for neurohormonal modulation. Continue isosorbide for possible ischemia. Jardiance was recommended and she declined. Continue Lasix. She is also on aspirin and statin. (3) HTN (hypertension): Code(s): I10 - Essential (primary) hypertension Category: Medical Plan: Well controlled at present. No med change made (4) Anemia: Code(s): D64.9 - Anemia, unspecified Category: Medical Plan: Follows with Dr. Tse. Last labs in our system 08/15/2023 shows hematocrit 27.1 She denies any known active bleeding. Will be updating labs prior to her cardiac catheterization Plan Time spent on chart review, documentation, interview and assessment Orders: Orders Basic Metabolic Panel Today I50.20 - Unspecified systolic (congestive) heart failure, Z86.79 - Personal history of other diseases of the circulatory system Prothrombin Time INR Today I50.20 - Unspecified systolic (congestive) heart failure Cardiac Cath LT w PCI Today I50.20 - Unspecified systolic (congestive) heart failure, R06.02 - Shortness of breath, Z86.79 - Personal history of other diseases of the circulatory system Complete Blood Count Auto Diff Today I50.20 - Unspecified systolic (congestive) heart failure Coding Level of Care Code Est Pt Level 4 (14598) Diagnoses HFrEF (heart failure with reduced ejection fraction) I50.20 History of cardiomyopathy Z86.79 HTN (hypertension) I10 Anemia D64.9 Time Spent (min) 36
== END 2023-08-20 13:44 | disposition home or self-care (01) ==
PROVIDERS: PCP Internal Medicine; Visit Provider Nurse Practitioner Family
DX: I50.20 Unspecified systolic (congestive) heart failure (principal); Z86.79 Personal history of other diseases of the circulatory system; I10 Essential (primary) hypertension; D64.9 Anemia, unspecified
CPT/HCPCS: 99214

== ENCOUNTER → 2023-08-20 12:58 | Outpatient (BNVA) | payer MEDICARE, SELFPAY | PROVIDERS: PCP Internal Medicine; Visit Provider Nurse Practitioner Family | DX: I11.0 Hypertensive heart disease with heart failure (principal); I50.20 Unspecified systolic (congestive) heart failure; D64.9 Anemia, unspecified; Z86.79 Personal history of other diseases of the circulatory system | CPT/HCPCS: 99212 ==

== ENCOUNTER 2023-08-29 13:20 | Outpatient (REF) | payer MEDICARE, SELFPAY ==
--- NOTE | ~2023-08-29 | MM_ITS ---
EXAMINATION: BONE DENSITOMETRY CLINICAL INDICATION: Postmenopausal bone loss. COMPARISON: Baseline BD dated 08/06/2013. TECHNIQUE: Using a [employer] DXA System (software version: 13.1) manufactured by [employer], dual-energy x-ray absorptiometry was performed of the lumbar spine and left hip. The images are of good technical quality. Summary results are attached. FINDINGS: LEFT FEMUR, NECK: Current: BMD 0.666 g/cm2, Z-score -0.5, T-score -2.7, osteoporosis. Baseline: BMD 0.798 g/cm2. LEFT FEMUR, TOTAL: Current: BMD 0.726 g/cm2, Z-score -0.3, T-score -2.2, osteopenia, 19.1% decrease from baseline (<5% change is not significant). Baseline: BMD 0.897 g/cm2. AP SPINE L1-L2 (excluding L3 and L4): The data of L1-L4 has been changed to exclude the L3 and L4 vertebral bodies, because degenerative sclerosis at these levels may cause overestimation of lumbar spine density. Current: BMD 1.319 g/cm2, Z-score 3.3, T-score 1.3, normal, 2.4% increase from baseline (<5% change is not significant). Baseline: BMD 1.288 g/cm2. IDENTIFIED RISK FACTORS: Menopause, renal, rheumatoid arthritis. HISTORY OF FRACTURE: None listed. MEDICATIONS: Calcium, vitamin D. MM/XR DEXA axial skeleton IMPRESSION: 1. DIAGNOSIS: Osteoporosis based on the lowest T-score value of -2.7 in the femoral neck applying World Health Organization criteria. 2. 10-YEAR FRACTURE RISK PREDICTION, FRAX: According to the guidelines, FRAX calculation should only be performed on patients in the osteopenia bone density category. Therefore, FRAX was not performed on this patient.? 3. Treatment Recommendations: NOF guidelines recommend consideration for treatment in postmenopausal women and men age 50 and older presenting with the following: -A hip or vertebral (clinical or morphometric) fracture. -T-score less than or equal to -2.5 at the femoral neck or spine after appropriate evaluation to exclude secondary causes. -Low bone mass at the hip or spine and a 10-year fracture probability by FRAX of greater than or equal to 3% for hip fracture or greater than or equal to 20% for major osteoporotic fracture based on the [place] adapted WHO algorithm. 4. Other Recommendations: All treatment decisions require clinical judgment and consideration of individual patient factors, including patient preferences, comorbidities, previous drug use, risk factors not captured in the FRAX model (e.g. frailty, falls, vitamin D deficiency, increased bone turnover, interval significant decline in bone density) and possible under or overestimation of fracture risk by FRAX. Additional medical evaluation for secondary cause of low bone mineral density may be appropriate. FUTURE SCAN RECOMMENDATION: People with diagnosed cases of osteoporosis or at high risk for fracture should have regular bone mineral density tests. For patients eligible for Medicare, routine testing is allowed once every 2 years. The testing frequency can be increased to one year for patients who have rapidly progressing disease, those who are receiving or discontinuing medical therapy to restore bone mass, or have additional risk factors.
== END 2023-08-29 13:21 | disposition home or self-care (01) ==
LOC: HO.MAMMO 13:20
PROVIDERS: PCP Internal Medicine; Visit Provider Internal Medicine
DX: Z13.820 Encounter for screening for osteoporosis (principal); Z78.0 Asymptomatic menopausal state; C50.911 Malignant neoplasm of unspecified site of right female breast
CPT/HCPCS: 77080

== ENCOUNTER 2023-09-11 12:45 | Outpatient (REF) | payer MEDICARE, SELFPAY ==
[2023-09-11 13:04] LABS: MANUAL DIFF FLAG NO
[2023-09-11 14:02] LABS: Basophils Percent Auto 0.4 % (0-2); Eosinophils Absolute Auto 0.2 X10*3/uL (0.0-0.4); Eosinophils Percent Auto 3.8 % (0-4); Hematocrit 21.7 % (37.0-47.0); Hemoglobin 7.3 g/dl (12.0-16.0); Imm Gran Abs Auto 0.01 X10*3/uL (0.00-0.03); Imm Gran Pct Auto 0.2 % (0.0-0.4); Lymphocytes Absolute Auto 1.1 X10*3/uL (1.2-4.9); Lymphocytes Percent Auto 21.2 % (20-40); Mean Corpuscular HGB Conc 33.6 g/dl (31.0-35.0); Mean Corpuscular Hemoglobin 35.8 pg (27.0-33.0); Mean Corpuscular Volume 106.4 fL (80.0-98.0); Mean Platelet Volume 10.1 fL (9.4-12.3); Monocytes Absolute Auto 0.5 X10*3/uL (0.1-1.2); Monocytes Percent Auto 10.2 % (2-11); Neutrophils Absolute Auto 3.2 x10*3/uL (2.0-8.3); Neutrophils Percent Auto 64.2 % (45-73); Platelet Count 158 X10*3/uL (160-400); Red Blood Count 2.04 X10*6/uL (4.20-5.50); Red Cell Distribution Width 14.6 % (11.0-16.0)
[2023-09-11 14:37] LABS: Anion Gap 15 (12-20); Blood Urea Nitrogen 37 mg/dL (9-16); Calcium 9.4 mg/dL (8.4-10.2); Carbon Dioxide 22 mmol/L (22-29); Chloride 111 mmol/L (96-108); Estimated Glomerular Filt Rate 30; Glucose Random 167 mg/dL (60-115); Potassium 3.8 mmol/L (3.3-5.1); Sodium 144 mmol/L (135-145)
== END 2023-09-11 12:46 | disposition home or self-care (01) ==
LOC: HO.LAB 12:45
PROVIDERS: PCP Internal Medicine; Visit Provider Nurse Practitioner Family
DX: I50.20 Unspecified systolic (congestive) heart failure (principal); Z86.79 Personal history of other diseases of the circulatory system
CPT/HCPCS: 36415; 80048; 85025; 85610

== ENCOUNTER → 2023-09-19 23:59 | Outpatient (BNV) | payer MEDICARE, SELFPAY | PROVIDERS: PCP Internal Medicine; Visit Provider Internal Medicine Cardiovascular Disease | DX: I42.9 Cardiomyopathy, unspecified (principal); I50.20 Unspecified systolic (congestive) heart failure; I25.10 Atherosclerotic heart disease of native coronary artery without angina pectoris | CPT/HCPCS: 92928; 93458; 99152 ==

== ENCOUNTER 2023-09-22 15:11 | Inpatient (IN) | payer MEDICARE, SELFPAY ==
[2023-09-22] VITALS (7 sets, daily range): BP systolic 82–129; BP diastolic 46–68; PULSE 60–80; RESP 16–18; TEMP 36.6–36.9; O2SAT 94–96; BMI 26.2
--- NOTE | ~2023-09-22 | XR_ITS ---
EXAMINATION: XR CHEST CLINICAL INFORMATION: Dizziness and weakness. COMPARISON: Chest radiographs dated 08/09/2023. TECHNIQUE: Frontal and lateral views of the chest were obtained. FINDINGS: There is stable cardiomegaly. There is atherosclerotic calcification of the aortic knob. Lung volumes are diminished, with crowding of bronchovascular and pulmonary parenchymal markings. No infiltrate, effusion or pneumothorax is seen. There is no acute osseous abnormality. There is multi-level thoracic and upper lumbar spondylosis. XR/XR chest 2V IMPRESSION: Lung volumes are diminished. No focal infiltrate or congestive heart failure is seen. There is stable cardiomegaly.
--- NOTE | 2023-09-22 15:49 | PC.NURSE ---
pt is alert and oriented, skin pwd, respirations even and unlabored, ls clear, pt reports having a bowel movement at [facility] and started to feel extremely weak/lightheaded/ unable to pick her own head up which is all resolved at this point, denies pain/dizziness, ns on the monitor
--- NOTE | 2023-09-22 15:50 | ECG_ITS ---
Test Reason : weak, dizzy Blood Pressure : / mmHG Vent. Rate : 059 BPM Atrial Rate : 059 BPM P-R Int : 176 ms QRS Dur : 094 ms QT Int : 448 ms P-R-T Axes : -12 -21 016 degrees QTc Int : 443 ms Sinus bradycardia with sinus arrhythmia Nonspecific ST and T wave abnormality Abnormal ECG When compared with ECG of 09-AUG-2023 10:57, QT has shortened Referred By: Rachael Cleary Electronically Signed By:LINDSAY TAVAREZ MD
--- NOTE | 2023-09-22 15:51 | ED_ITS ---
HPI - General Adult General Chief complaint: Weakness Stated complaint: WEAK,DIZZY,RECENT HEART SURGERY SATURDAY PER EMS Time Seen by Provider: 09/22/23 15:49 Source: patient, EMS and RN notes reviewed Mode of arrival: EMS Limitations: no limitations History of Present Illness ED Provider: Kim Cleary NP HPI narrative: Patient is a 78-year-old female with history of T2DM, CHFrEF, nonischemia cardiomyopathy, PE, HTN, chronic macrocytic anemia, recent cardiac cath on 09/18 with stent placed to RCA presenting to the emergency department after episode of weakness and near syncope prior to arrival. States that her son stopped at [employer] to get an ice cream cone and she went in to use the bathroom. By the time she walked from the car to the door she became weak and lightheaded. Son assisted her to the bathroom where she states she sat on the toilet for some time, at one point was too weak to lift her head. Reports that her blood pressure was low for EMS. She does note that at her recent cath, she had significant bleeding from right groin for which significant pressure was required in order to stop. Denies any hematochezia or melena. Denies any recent nausea or vomiting. Denies any cough or dyspnea. Denies fevers. Denies any urinary symptoms. MD complaint: Weakness, lightheaded Onset (ago): hour(s) Associated symptoms: diaphoresis Treatments prior to arrival: none Related Data Home Medications ?Medication ?Instructions ?Recorded ?Confirmed aspirin 81 mg tablet,delayed 81 mg PO DAILY 02/29/20 08/21/23 release cholecalciferol (vitamin D3) 50 50 mcg PO DAILY 02/29/20 08/21/23 mcg (2,000 unit) tablet (Vitamin D3) cyanocobalamin (vitamin B-12) 5,000 mcg PO BEDTIME 02/29/20 08/21/23 5,000 mcg disintegrating tablet folic acid 1 mg tablet 1 mg PO DAILY 02/29/20 08/21/23 levothyroxine 100 mcg tablet 100 mcg PO DAILY 02/29/20 08/21/23 vitamin E 400 unit tablet 450 mg PO DAILY 02/29/20 08/21/23 allopurinol 300 mg tablet 300 mg PO DAILY 09/29/20 08/21/23 carvedilol 6.25 mg tablet 6.25 mg PO BID 09/29/20 08/21/23 furosemide 20 mg tablet 20 mg PO DAILY 09/29/20 08/21/23 rosuvastatin 20 mg tablet 20 mg PO BEDTIME 09/29/20 08/21/23 gabapentin 100 mg capsule 100 mg PO BID 05/23/22 08/21/23 cranberry 500 mg capsule 500 mg PO DAILY 11/20/22 08/21/23 d-mannose 500 mg capsule (AZO 500 mg PO DAILY 11/20/22 08/21/23 D-Mannose) Previous Rx's ?Medication ?Instructions ?Recorded isosorbide mononitrate 30 mg 30 mg PO DAILY 90 days #90 tabs 06/20/23 tablet,extended release 24 hr valsartan 40 mg tablet 40 mg PO BID 90 days #180 tabs 06/20/23 exemestane 25 mg tablet 25 mg PO DAILY #90 tabs 09/13/23 Allergies Allergy/AdvReac Type Severity Reaction Status Date / Time esomeprazole [From NEXIUM] Allergy Intermediate CHEST PAIN Verified 09/22/23 15:46 omeprazole [From PRILOSEC] Allergy Intermediate CHEST PAIN Verified 09/22/23 15:46 diphenhydramine Allergy Dizziness Verified 09/22/23 15:46 [From Benadryl] Review of Systems 2 Review of Systems: As per HPI. Yes all other systems are reviewed and are negative Constitutional: Constitutional: Reports as per HPI [facility] Past Medical History Medical History CHF (congestive heart failure) Diabetes mellitus Cervix prolapsed into vagina History of blood transfusion (~02/01/23) HFrEF (heart failure with reduced ejection fraction) Cardiomyopathy Normal colonoscopy Type 2 diabetes mellitus Diverticulosis Irritable bowel syndrome Pulmonary emboli GERD (gastroesophageal reflux disease) Nephrolithiasis Hypoparathyroidism Papillary thyroid carcinoma HTN (hypertension) Polymyalgia rheumatica Hyperglycemia Chronic anemia Surgical History Breast mass, right H/O endoscopy History of cholecystectomy H/O total thyroidectomy Family History Family History Sister CHF (congestive heart failure) Daughter Breast cancer Son Kidney stones Social History Social History Household Members: Children Household Members Other:: son Housing: House Do you presently have visiting nurse or other home services: No Alcohol intake: never Patient Tobacco Use Status: Former Tobacco user Years Smoked: 30 +/- Smoked in Last 30 Days: No Use of substances other than those prescribed or required for medical reasons: No Advance Directives: No Advance Directives Information Provided: No Do you have a plan to hurt others: No Plan Current occupational status: retired Current occupation: Right Handed Physical Exam ED Vital Signs: Vital Signs - 24 hr 09/22/23 15:44 09/22/23 17:20 09/22/23 19:36 Temperature 98 F 97.9 F 97.9 F Pulse Rate 66 74 78 Respiratory Rate 18 18 18 Blood Pressure 105/46 L 125/56 L 125/64 Pulse Oximetry 95 96 Oxygen Delivery Method Room Air Room Air 09/22/23 19:51 Temperature 98.0 F Pulse Rate 80 Respiratory Rate Blood Pressure 129/61 Pulse Oximetry Oxygen Delivery Method BMI result Body Mass Index 26.2 Vital signs have been reviewed and appear to be correct. Blood pressure low. Heart rate normal. Respiratory rate normal. Temperature normal. Oxygen saturation normal. Const General: cooperative, healthy appearing and no acute distress Orientation/consciousness: oriented to person, oriented to place, oriented to time and patient oriented x3 Limitations: no limitations HENMT Head: Yes normocephalic and Yes atraumatic Ears: external ears normal General nose exam: Normal external nose present Face and sinus: Yes face symmetric Mouth: oropharynx normal and moist mucous membranes Throat: Yes uvula midline Eyes Pupils: Equal, round and reactive pupils present Neck Neck: Yes normal visual inspection and Yes supple Resp Effort & Inspection: normal respiratory effort and able to speak in complete sentences Auscultation: clear to auscultation bilaterally Cardio Rate: regular rate Rhythm: regular rhythm Heart sounds: S1 normal heart sound present and S2 normal heart sound present GI Palpation (GI): Soft to palpation and nontender Auscultation: normoactive bowel sounds General: Yes no CVA tenderness Back/Spine/Pelvis Back: no CVA tenderness Skin General skin exam: elasticity normal, turgor normal and pallor Full body images: 2 1. healing ecchymosis, no fluctuance Neuro General: oriented to person, oriented to place, oriented to time, patient oriented x3, moves all extremities, no focal motor deficits and CN's II-XI intact bilaterally Cranial nerves: Yes Equal, round and reactive pupils present Cognition (Neuro): normal cognition Extrem General: Yes full ROM, Yes no pedal edema and Yes no calf tenderness Psych Mental Status: mental status grossly normal Affect: normal affect Thought process: Normal thought process present Medical Decision Making Medical Decision Making [facility] Narrative: Patient is a 78-year-old female with history of T2DM, CHFrEF, nonischemia cardiomyopathy, PE, HTN, chronic macrocytic anemia, recent cardiac cath on 09/18 with stent placed to RCA presenting to the emergency department after episode of weakness and near syncope prior to arrival. On exam patient is awake, A+Ox3, BP slightly low, VS otherwise WNL, afebrile, normal neurological exam without focal deficits, physical exam findings as above. Given reported symptoms and physical exam findings, initial differential includes ACS, anemia, electrolyte abnormality. Labs notable for H&H of 6.4/19.1, troponin of 425.7, elevated BUN/cr. Discussed case with Dr. Hackett who recommends holding off on IV fluids at this time given history of CHF. X-ray notable for stable cardiomegaly, no infiltrates or CHF. My interpretation is in agreement with the radiologist's interpretation. Spoke with Dr. Matias who recommends admission, does not want any of her regular medications adjusted at this time. Agrees with treatment of 2 units [address]BCs. Discussed with Dr. De Leon who accepts admission to medicine. Differential Diagnosis Differential Diagnoses: The differential diagnosis associated with the presentation includes As per [facility] Admission/Observation Consideration of admission/observation: Escalation of care including admission/observation considered Consult Healthcare Provider Management of the patient was discussed with: Hospitalist and [employer] Engineer (Dr. Matias) Lab Data [facility] Lab Attestation statement: I reviewed the patient's lab results. as per [facility] 09/22/23 16:23 09/22/23 16:23 Labs: Lab Results 09/22/23 09/22/23 09/22/23 Range/Units 16:23 16:25 17:27 WBC 7.6 (4.8-10.8) X10*3/uL RBC 1.80 L (4.20-5.50) X10*6/uL Hgb 6.4 L* (12.0-16.0) g/dl Hct 19.1 L* (37.0-47.0) % MCV 106.1 H (80.0-98.0) fL MCH 35.6 H (27.0-33.0) pg MCHC 33.5 (31.0-35.0) g/dl RDW 14.2 (11.0-16.0) % Plt Count 144 L (160-400) X10*3/uL MPV 9.4 (9.4-12.3) fL Immature Gran % (Auto) 0.3 (0.0-0.4) % Neut % (Auto) 76.2 H (45-73) % Lymph % (Auto) 11.8 L (20-40) % [place] % (Auto) 9.0 (2-11) % Eos % (Auto) 2.4 (0-4) % Baso % (Auto) 0.3 (0-2) % Lymph # (Auto) 0.9 L (1.2-4.9) X10*3/uL [place] # (Auto) 0.7 (0.1-1.2) X10*3/uL Eos # (Auto) 0.2 (0.0-0.4) X10*3/uL Baso # (Auto) 0.0 (0.0-0.2) X10*3/uL Abs Immat Gran (auto) 0.02 (0.00-0.03) X10*3/uL Absolute Neuts (auto) 5.8 (2.0-8.3) x10*3/uL Absolute Nucleated RBC 0.000 (0.0-0.012) X10*3/uL Nucleated RBC % (auto) 0.0 (0.0-0.2) /100WBC PT 12.6 (11.1-13.3) SEC INR 1.0 (0.9-1.1) Sodium 141 (135-145) mmol/L Potassium 4.0 (3.3-5.1) mmol/L Chloride 105 (96-108) mmol/L Carbon Dioxide 21 L (22-29) mmol/L Anion Gap 19 (12-20) BUN 55 H (9-16) mg/dL Creatinine 2.85 H (0.5-1.4) mg/dL Estim Creat Clear Calc 14.0 Estimated GFR 16 Random Glucose 172 H (60-115) mg/dL Calcium 8.7 D (8.4-10.2) mg/dL Magnesium 2.2 (1.6-2.6) mg/dL Total Bilirubin 0.8 (0.0-1.0) mg/dL AST 17 (5-31) U/L ALT 17 (0-31) U/L Alkaline Phosphatase 58 (39-117) U/L Troponin I High Sens 425.7 H* D (<3.5-17.0) ng/L B-Natriuretic Peptide 770 H (<100) pg/mL Total Protein 6.6 (6.5-8.0) g/dL Albumin 3.7 (3.5-5.0) g/dL Urine Color Urine Appearance Urine pH (5.0-9.0) Ur Specific [place] (1.005-1.025) Urine Protein (Neg-Trace) mg/dL Urine Glucose (UA) (Negative) mg/dL Urine Ketones (Negative) mg/dL Urine Blood (Negative) Urine Nitrite (Negative) Ur Leukocyte Esterase (Negative) Urine RBC (0-2) /HPF Urine WBC (0-5) /HPF Ur Squamous Epith Cells (0-2) /HPF Urine Bacteria (None Seen) Hyaline Casts (0-2) /LPF Influenza Type A (PCR) NEGATIVE (Negative) Influenza Type B (PCR) NEGATIVE (Negative) RSV RNA Qual (PCR) NEGATIVE (Negative) SARS-CoV-2 RNA (RT-PCR) NEGATIVE (Negative) Blood Type B Positive Antibody Screen NEGATIVE Crossmatch See Detail 09/22/23 Range/Units 18:17 WBC (4.8-10.8) X10*3/uL RBC (4.20-5.50) X10*6/uL Hgb (12.0-16.0) g/dl Hct (37.0-47.0) % MCV (80.0-98.0) fL MCH (27.0-33.0) pg MCHC (31.0-35.0) g/dl RDW (11.0-16.0) % Plt Count (160-400) X10*3/uL MPV (9.4-12.3) fL Immature Gran % (Auto) (0.0-0.4) % Neut % (Auto) (45-73) % Lymph % (Auto) (20-40) % [place] % (Auto) (2-11) % Eos % (Auto) (0-4) % Baso % (Auto) (0-2) % Lymph # (Auto) (1.2-4.9) X10*3/uL [place] # (Auto) (0.1-1.2) X10*3/uL Eos # (Auto) (0.0-0.4) X10*3/uL Baso # (Auto) (0.0-0.2) X10*3/uL Abs Immat Gran (auto) (0.00-0.03) X10*3/uL Absolute Neuts (auto) (2.0-8.3) x10*3/uL Absolute Nucleated RBC (0.0-0.012) X10*3/uL Nucleated RBC % (auto) (0.0-0.2) /100WBC PT (11.1-13.3) SEC INR (0.9-1.1) Sodium (135-145) mmol/L Potassium (3.3-5.1) mmol/L Chloride (96-108) mmol/L Carbon Dioxide (22-29) mmol/L Anion Gap (12-20) BUN (9-16) mg/dL Creatinine (0.5-1.4) mg/dL Estim Creat Clear Calc Estimated GFR Random Glucose (60-115) mg/dL Calcium (8.4-10.2) mg/dL Magnesium (1.6-2.6) mg/dL Total Bilirubin (0.0-1.0) mg/dL AST (5-31) U/L ALT (0-31) U/L Alkaline Phosphatase (39-117) U/L Troponin I High Sens (<3.5-17.0) ng/L B-Natriuretic Peptide (<100) pg/mL Total Protein (6.5-8.0) g/dL Albumin (3.5-5.0) g/dL Urine Color Yellow Urine Appearance Cloudy Urine pH 5.5 (5.0-9.0) Ur Specific [place] 1.010 (1.005-1.025) Urine Protein 30 (1+) H (Neg-Trace) mg/dL Urine Glucose (UA) Negative (Negative) mg/dL Urine Ketones Negative (Negative) mg/dL Urine Blood Negative (Negative) Urine Nitrite Negative (Negative) Ur Leukocyte Esterase Large (3+) H (Negative) Urine RBC 0-2 (0-2) /HPF Urine WBC >50 H (0-5) /HPF Ur Squamous Epith Cells 3-5 (0-2) /HPF Urine Bacteria 4+ (None Seen) Hyaline Casts 6-10 (0-2) /LPF Influenza Type A (PCR) (Negative) Influenza Type B (PCR) (Negative) RSV RNA Qual (PCR) (Negative) SARS-CoV-2 RNA (RT-PCR) (Negative) Blood Type Antibody Screen Crossmatch Independent Interpretation I performed an independent interpretation of an: EKG (sinus bradycardia with sinus arrhythmia, rate 59bpm, normal [place] interval and QTc) and Plain X-Ray Interpretation: No infiltrates or CHF noted on CXR, stable cardiomegaly. Radiology Impression Discussion of test interpretation with radiology: I have reviewed the radiologist's reading. Radiologist Impression: XR/XR chest 2V IMPRESSION: Lung volumes are diminished. No focal infiltrate or congestive heart failure is seen. There is stable cardiomegaly. External Record Review External record reviewed: Inpatient record, Office record and Outpatient record Critical Care Time Critical Care Time Critical Care Time: Yes Total Critical Care Time: 49 Attestation: I have personally provided critical care time exclusive of time spent on separately billable procedures. Time includes review of lab data, radiology results, discussion with consultants, and monitoring for potential decompensation. Intervention performed as documented. Discharge Plan Discharge Clinical Impression: Anemia, Elevated troponin, Near syncope Patient Disposition: Admitted As Inpatient Print Language: Persian
[2023-09-22 16:32] LABS: MANUAL DIFF FLAG NO
[2023-09-22 16:33] LABS: Basophils Percent Auto 0.3 % (0-2); Eosinophils Absolute Auto 0.2 X10*3/uL (0.0-0.4); Eosinophils Percent Auto 2.4 % (0-4); Imm Gran Abs Auto 0.02 X10*3/uL (0.00-0.03); Imm Gran Pct Auto 0.3 % (0.0-0.4); Lymphocytes Absolute Auto 0.9 X10*3/uL (1.2-4.9); Lymphocytes Percent Auto 11.8 % (20-40); Mean Corpuscular HGB Conc 33.5 g/dl (31.0-35.0); Mean Corpuscular Hemoglobin 35.6 pg (27.0-33.0); Mean Corpuscular Volume 106.1 fL (80.0-98.0); Mean Platelet Volume 9.4 fL (9.4-12.3); Monocytes Absolute Auto 0.7 X10*3/uL (0.1-1.2); Neutrophils Absolute Auto 5.8 x10*3/uL (2.0-8.3); Neutrophils Percent Auto 76.2 % (45-73); Platelet Count 144 X10*3/uL (160-400); Red Cell Distribution Width 14.2 % (11.0-16.0); White Blood Count 7.6 X10*3/uL (4.8-10.8)
[2023-09-22 16:37] LABS: Hematocrit 19.1 % (37.0-47.0)
[2023-09-22 16:39] LABS: Hemoglobin 6.4 g/dl (12.0-16.0)
[2023-09-22 16:43] LABS: Prothrombin Time 12.6 SEC (11.1-13.3)
[2023-09-22 17:10] LABS: Alanine Aminotransferase 17 U/L (0-31); Albumin Level 3.7 g/dL (3.5-5.0); Alkaline Phosphatase 58 U/L (39-117); Anion Gap 19 (12-20); Aspartate Amino Transferase 17 U/L (5-31); Bilirubin Total 0.8 mg/dL (0.0-1.0); Blood Urea Nitrogen 55 mg/dL (9-16); Calcium 8.7 mg/dL (8.4-10.2); Carbon Dioxide 21 mmol/L (22-29); Chloride 105 mmol/L (96-108); Estimated Glomerular Filt Rate 16; Glucose Random 172 mg/dL (60-115); Magnesium 2.2 mg/dL (1.6-2.6); Sodium 141 mmol/L (135-145); Total Protein 6.6 g/dL (6.5-8.0)
[2023-09-22 17:16] LABS: B Type Natriuretic Peptide 770 pg/mL (<100)
--- NOTE | 2023-09-22 17:25 | PC.NURSE ---
pt reports that she needs lasix before her blood transfusion because of her heart, provider aware of this and consent signed and in the chart pt is resting comfortably and vs stable
[2023-09-22 17:43] LABS: Influenza A PCR NEGATIVE (Negative); Influenza B PCR NEGATIVE (Negative); Resp Syncy Virus RNA Qual PCR NEGATIVE (Negative); SARS COV2 PCR INHOUSE NEGATIVE (Negative)
[2023-09-22 18:27] LABS: Appearance Urine Cloudy; Color Urine Yellow; Glucose Urine UA Negative (Negative); Leukocyte Esterase Urine Large (3+) (Negative); Nitrite Urine Negative (Negative); PH 5.5 (5.0-9.0); UMIC TRIGGER UACC YES; Urine Blood Negative (Negative); Urine Ketones Negative (Negative); Urine Protein 30 (1+) mg/dL (Neg-Trace)
[2023-09-22 18:45] LABS: Bacteria Urine 4+ (None Seen); RBC Urine 0-2 /HPF (0-2); UACC Culture Trigger YES; WBC Urine >50 /HPF (0-5)
--- NOTE | 2023-09-22 18:45 | PC.NURSE ---
pt does have some old bruising on the right inner arm
--- NOTE | 2023-09-22 19:20 | PC.NURSE ---
Assumed care of pt. Pt lying on stretcher no acute distress. preparing for RBC administration, noting pt is TACO risk
--- NOTE | 2023-09-22 19:47 | PC.NURSE ---
Initial RBC started at 1936, pt asymptomatic. Continuing to monitor.
[2023-09-22 20:13] LABS: Troponin-I High Sensitivity 425.7 ng/L (<3.5-17.0)
[2023-09-22 22:07] LABS: Troponin-I High Sensitivity 344.6 ng/L (<3.5-17.0)
--- NOTE | 2023-09-22 22:47 | P.HPHOSP_ITS ---
History of Present Illness Date of Service: 09/22/23 Attending physician on admission: Viktoria Pereira Chief Complaint: Dizziness Tonia Hernandez is a 78 years old woman with past medical history significant for sideroblastic anemia followed by Hematology wiring no transfusions, systolic and diastolic congestive heart failure, type 2 diabetes mellitus papillary thyroid CA status post surgery and radioactive treatment, essential hypertension, polymyalgia rheumatica and GERD was brought to the emergency department via EMS after she had sudden onset of dizziness, sweating and generalized weakness upon sitting down to use the toilet while she was in [facility]. She denied any associated headache, palpitations, shortness of breath, chest pain, abdominal pain, nausea, vomiting or diarrhea. She denied black or bloody stools. In the ED, she was found stable vital signs. Blood workup was remarkable for significant anemia, hemoglobin 6.4 and hematocrit 19.1 (on 09/11/23 it was 7.3 and 21.7, respectively). Creatinine is elevated at 2.85 (prior 1.67). There are no significant electrolyte imbalances. Viral testing is negative for COVID- 19, RSV and influenza. CXR showed no evidence of infiltrate or congestive heart failure. ED tx: Two units of PRBCs ordered (first unit was just started). Review of Systems 2 Review of Systems: All 12 systems were reviewed and normal except as noted in HPI. [facility] Medical History CHF (congestive heart failure) Diabetes mellitus Cervix prolapsed into vagina History of blood transfusion (~02/01/23) HFrEF (heart failure with reduced ejection fraction) Cardiomyopathy Normal colonoscopy Type 2 diabetes mellitus Diverticulosis Irritable bowel syndrome Pulmonary emboli GERD (gastroesophageal reflux disease) Nephrolithiasis Hypoparathyroidism Papillary thyroid carcinoma HTN (hypertension) Polymyalgia rheumatica Hyperglycemia Chronic anemia Family History Sister CHF (congestive heart failure) Daughter Breast cancer Son Kidney stones Surgical History Breast mass, right H/O endoscopy History of cholecystectomy H/O total thyroidectomy Social History Household Members: Children Household Members Other:: son Housing: House Do you presently have visiting nurse or other home services: No Alcohol intake: never Patient Tobacco Use Status: Former Tobacco user Years Smoked: 30 +/- Smoked in Last 30 Days: No Use of substances other than those prescribed or required for medical reasons: No Advance Directives: No Advance Directives Information Provided: No Do you have a plan to hurt others: No Plan Current occupational status: retired 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 Allergies Allergy/AdvReac Type Severity Reaction Status Date / Time esomeprazole [From NEXIUM] Allergy Intermediate CHEST PAIN Verified 09/22/23 15:46 omeprazole [From PRILOSEC] Allergy Intermediate CHEST PAIN Verified 09/22/23 15:46 diphenhydramine Allergy Dizziness Verified 09/22/23 15:46 [From Benadryl] Active Medications: Current Medications Acetaminophen (Acetaminophen 325 Mg Tablet) 975 mg PO Q6H PRN PRN Reason: mild pain, headache or fever Pantoprazole Sodium (Pantoprazole Sodium 40 Mg/10 Ml Vial) 40 mg IVPUSH Q24H [facility] Sodium Chloride (0.9 % Sodium Chloride Flush 3 Ml Syringe) 3 ml IVFLUSH QSHIFT [facility] Home Medications ?Medication ?Instructions ?Recorded ?Confirmed ?Last Taken ?Type aspirin 81 mg tablet,delayed 81 mg PO DAILY 02/29/20 08/21/23 08/08/23 History release cholecalciferol (vitamin D3) 50 50 mcg PO DAILY 02/29/20 08/21/23 08/08/23 History mcg (2,000 unit) tablet (Vitamin D3) cyanocobalamin (vitamin B-12) 5,000 mcg PO BEDTIME 02/29/20 08/21/23 08/08/23 History 5,000 mcg disintegrating tablet folic acid 1 mg tablet 1 mg PO DAILY 02/29/20 08/21/23 08/08/23 History levothyroxine 100 mcg tablet 100 mcg PO DAILY 02/29/20 08/21/23 08/08/23 History vitamin E 400 unit tablet 450 mg PO DAILY 02/29/20 08/21/23 08/08/23 History allopurinol 300 mg tablet 300 mg PO DAILY 09/29/20 08/21/23 08/08/23 History carvedilol 6.25 mg tablet 6.25 mg PO BID 09/29/20 08/21/23 08/08/23 History furosemide 20 mg tablet 20 mg PO DAILY 09/29/20 08/21/23 08/08/23 History rosuvastatin 20 mg tablet 20 mg PO BEDTIME 09/29/20 08/21/23 08/08/23 History gabapentin 100 mg capsule 100 mg PO BID 05/23/22 08/21/23 08/08/23 History cranberry 500 mg capsule 500 mg PO DAILY 11/20/22 08/21/23 08/08/23 History d-mannose 500 mg capsule (AZO 500 mg PO DAILY 11/20/22 08/21/23 08/08/23 History D-Mannose) Physical Exam 2 Vital Signs and Narrative: Vital Signs: Last Vital Signs Temp 98.0 F 09/22/23 19:51 Pulse 80 09/22/23 19:51 Resp 18 09/22/23 19:36 BP 129/61 09/22/23 19:51 Pulse Ox 96 09/22/23 17:20 O2 Del Method Room Air 09/22/23 17:20 BMI result Body Mass Index 26.2 Constitutional - Awake and Alert, No apparent distress HEENT - Pupils equally round. Heart - S1S2, RRR, No edema Respiratory - Normal lung expansion, Normal respiratory effort, No respiratory distress, CTA bilaterally Gastrointestinal - NT / ND; +BS; No rebound or guarding. No flank or periumbilical hematomas noted. - No CVA tenderness. Right groin and vulvar region with ecchymosis. No vaginal bleeding noted. Extremities - no calf tenderness bilaterally, no swelling Musculoskeletal - Normal inspection, normal ROM. Skin - Warm/Dry. Pallor. Neurological - Alert & oriented x3. No focal weakness grossly noted. Psychological - Appropriate affect Results Labs 09/22/23 16:23 09/22/23 16:23 Labs: Laboratory Results - last 24 hr 09/22/23 09/22/23 09/22/23 16:23 16:25 17:27 MCV 106.1 H MCH 35.6 H MCHC 33.5 RDW 14.2 Plt Count 144 L MPV 9.4 Immature Gran % (Auto) 0.3 Neut % (Auto) 76.2 H Lymph % (Auto) 11.8 L [place] % (Auto) 9.0 Eos % (Auto) 2.4 Baso % (Auto) 0.3 Lymph # (Auto) 0.9 L [place] # (Auto) 0.7 Eos # (Auto) 0.2 Baso # (Auto) 0.0 Abs Immat Gran (auto) 0.02 Absolute Neuts (auto) 5.8 Absolute Nucleated RBC 0.000 Nucleated RBC % (auto) 0.0 PT 12.6 INR 1.0 Anion Gap 19 Estim Creat Clear Calc 14.0 Estimated GFR 16 Random Glucose 172 H Calcium 8.7 D Magnesium 2.2 Total Bilirubin 0.8 AST 17 ALT 17 Alkaline Phosphatase 58 Troponin I High Sens 425.7 H* D B-Natriuretic Peptide 770 H Total Protein 6.6 Albumin 3.7 Urine Color Urine Appearance Urine pH Ur Specific [place] Urine Protein Urine Glucose (UA) Urine Ketones Urine Blood Urine Nitrite Ur Leukocyte Esterase Urine RBC Urine WBC Ur Squamous Epith Cells Urine Bacteria Hyaline Casts Influenza Type A (PCR) NEGATIVE Influenza Type B (PCR) NEGATIVE RSV RNA Qual (PCR) NEGATIVE SARS-CoV-2 RNA (RT-PCR) NEGATIVE Blood Type B Positive Antibody Screen NEGATIVE Crossmatch See Detail 09/22/23 09/22/23 18:17 21:15 MCV MCH MCHC RDW Plt Count MPV Immature Gran % (Auto) Neut % (Auto) Lymph % (Auto) [place] % (Auto) Eos % (Auto) Baso % (Auto) Lymph # (Auto) [place] # (Auto) Eos # (Auto) Baso # (Auto) Abs Immat Gran (auto) Absolute Neuts (auto) Absolute Nucleated RBC Nucleated RBC % (auto) PT INR Anion Gap Estim Creat Clear Calc Estimated GFR Random Glucose Calcium Magnesium Total Bilirubin AST ALT Alkaline Phosphatase Troponin I High Sens 344.6 H* B-Natriuretic Peptide Total Protein Albumin Urine Color Yellow Urine Appearance Cloudy Urine pH 5.5 Ur Specific [place] 1.010 Urine Protein 30 (1+) H Urine Glucose (UA) Negative Urine Ketones Negative Urine Blood Negative Urine Nitrite Negative Ur Leukocyte Esterase Large (3+) H Urine RBC 0-2 Urine WBC >50 H Ur Squamous Epith Cells 3-5 Urine Bacteria 4+ Hyaline Casts 6-10 Influenza Type A (PCR) Influenza Type B (PCR) RSV RNA Qual (PCR) SARS-CoV-2 RNA (RT-PCR) Blood Type Antibody Screen Crossmatch Imaging Radiologist's Impressions: Impressions Chest X-Ray 09/22/23 16:14 IMPRESSION: Lung volumes are diminished. No focal infiltrate or congestive heart failure is seen. There is stable cardiomegaly. Assessment and Plan (1) Acute blood loss anemia: Status: Acute (2) TED (acute kidney injury): Status: Acute (3) Elevated troponin: Status: Acute Plan Tonia Hernandez is a 78 y/o woman admitted with: * Acute on chronic anemia, symptomatc. Likely secondary to recent procedure s/p cardiac cath (July 19). Admit to hospitalist service. PRBC transfusion to keep Hgb > 8.0 (underlying cardiac disease). * Dizziness likely secondary to above. Fall precautions. * Acute on chronic kidney disease. Secondary to acute blood loss anemia/hypoperfusion. Less likely contrast-induced. * Chronic systolic and diastolic congestive heart failure. Not in acute exacerbation. * Urinary tract infection. Start therapy with ceftriaxone 1 g IV daily. UC obtained -will follow results. * Coronary artery disease. Recent cardiac catheterization showed mid RCA 95% stenosis, proximal to mid circumflex has 70% stenosis without significant LAD disease. s/p GREG mid RCA and medical tx for circumflex stenosis. She was recommended to take BP has been 81 mg p.o. indefinitely and to continue Brilinta 90 mg p.o. b.i.d. (she got a prescription for Plavix on July 19) for at least 12 months. * Elevated troponin, trending down. 425.5 --> 344.6. [employer] on-call, Dr. Matias, contacted by ED, recommended no adjustment of any of her regular medications and agrees with PRBC transfusions. * Elevated BNP. At baseline. No symptoms congestive heart failure. CXR negative. * Essential hypertension. Hold carvedilol and isosorbide for now. Patient possibly have orthostatic hypotension due to blood loss. * Hyperlipidemia. Continue statin. * Gout. Continue allopurinol. * Type 2 diabetes mellitus. Hold metformin due to CKD. BG checks before meals and bedtime. Insulin sliding scale. Diabetic diet. * Neuropathy. Hold gabapentin due to acute on chronic anemia. * History of papillary thyroid CA s/p surgery radioactive iodine therapy. On levothyroxine? * GERD. PPI. Med reconciliation by pharmacy is still pending. Code status: Full DVT prophylaxis: SCDs Patient will need hospitalization for at least 2 midnights for acute anemia treatment with blood transfusions and continue vital signs monitoring. Quality Stroke Does the patient have a stroke diagnosis?: No VTE Prior VTE?: No VTE Risk Level:: Medical - moderate - high VTE Device Contraindication: N/A - Device Ordered VTE Drug Contraindication: Treatment Not Indicated
[2023-09-23] VITALS (9 sets, daily range): BP systolic 129–160; BP diastolic 58–82; PULSE 67–79; RESP 16–24; TEMP 36.4–36.8; O2SAT 92–96
--- NOTE | 2023-09-23 00:52 | PC.NURSE ---
Second unit RBC started at 0033 with initial vitals recorded, repeat vitals documented at 0049. D/T TAR lock issue, transfusion initiated appears as 004, initial start was 0033.
--- NOTE | 2023-09-23 03:44 | PC.NURSE ---
Transfusions running at 75/hr due to TACO risk, running for full 4 hours.
[2023-09-23] MEDS: cefTRIAXone sodium 1 GM in 0.9 % Sodium Chloride 50 ML IV (05:11)
[2023-09-23] MEDS: Pantoprazole Sodium 40 MG/10 ML VIAL IVPUSH (05:11)
[2023-09-23 05:14] LABS: Alanine Aminotransferase 16 U/L (0-31); Albumin Level 3.6 g/dL (3.5-5.0); Alkaline Phosphatase 55 U/L (39-117); Anion Gap 21 (12-20); Aspartate Amino Transferase 19 U/L (5-31); Bilirubin Total 1.2 mg/dL (0.0-1.0); Blood Urea Nitrogen 53 mg/dL (9-16); Calcium 8.6 mg/dL (8.4-10.2); Carbon Dioxide 19 mmol/L (22-29); Chloride 106 mmol/L (96-108); Creatinine Clr Calc Pharmacy 13.3; Estimated Glomerular Filt Rate 15; Glucose Random 106 mg/dL (60-115); Potassium 3.8 mmol/L (3.3-5.1); Sodium 142 mmol/L (135-145); Total Protein 6.6 g/dL (6.5-8.0)
--- NOTE | 2023-09-23 05:15 | PC.NURSE ---
Abx initial dosing changed d/t RBC administration in process at time of initial dose. Pantoprozole given after RBC as well.
[2023-09-23 07:10] LABS: Glucose, Whole Blood 120 mg/dL (60-115)
[2023-09-23 09:26] LABS: Hematocrit 27.4 % (37.0-47.0); Hemoglobin 9.7 g/dl (12.0-16.0); Mean Corpuscular HGB Conc 35.4 g/dl (31.0-35.0); Mean Corpuscular Volume 98.9 fL (80.0-98.0); Mean Platelet Volume 9.4 fL (9.4-12.3); Platelet Count 153 X10*3/uL (160-400); Red Blood Count 2.77 X10*6/uL (4.20-5.50); Red Cell Distribution Width 16.4 % (11.0-16.0); White Blood Count 7.8 X10*3/uL (4.8-10.8)
[2023-09-23] MEDS: 0.9 % Sodium Chloride Flush 3 ML SYRINGE IVFLUSH ×2 (09:41→18:26)
--- NOTE | 2023-09-23 11:32 | PHA.MEDREC ---
Pharmacy Consult ? Medication Reconciliation Pharmacy has completed the medication reconciliation. spoke with patient to confirm medications, she had a medication list from home. She only takes 1 gabapentin cap at bedtime, she takes levothyroxine everyday except for sundays and wednesdays (she did not have today), she takes 2 tablets of the metformin at once and she confirmed they are now the extended release tablets. She reports she did not start Aromasin yet (instructed to start after her procedure). She reports she last took her medications yesterday morning.
--- NOTE | 2023-09-23 12:02 | MHC.CM.PN ---
PT REPORTS SHE LIVES WITH HER SON AND IS INDEPENDENT WITH CARE SHE HAS A CANE FOR DME AND NO SERVICES HCP ON FILE NAMING HER DAUGHTER, KOJO, HER AGENT, PT CONFIRMS THIS IS ACCURATE PCP: NIRALI WARREN IMM DELIVERED DCP: HOME NO SERVICES VIA PRIVATE TRANSPORT
--- NOTE | 2023-09-23 12:45 | HO.PM.IMPN ---
Subjective Subjective Date of Service: 09/23/23 Physical Exam Vital Signs: Vital Signs: Last Vital Signs Temp 98.1 F 09/23/23 10:52 Pulse 75 09/23/23 10:52 Resp 18 09/23/23 10:52 BP 150/67 H 09/23/23 10:52 Pulse Ox 92 09/23/23 10:52 O2 Del Method Room Air 09/23/23 10:52 BMI result Body Mass Index 26.2 Objective Data Active Medications Acetaminophen (Acetaminophen 325 Mg Tablet) 975 mg PO Q6H PRN PRN Reason: mild pain, headache or fever Glucose (Glucose Gel 15 Gm Gel..Gram.) 15 gm PO Q15M PRN; Protocol PRN Reason: per Hypoglycemia Standing Ord. Dextrose (D10) 250 mls @ 750 mls/hr IV Q15M PRN; Protocol PRN Reason: per Hypoglycemia Standing Ord. Ceftriaxone Sodium 1 gm/ (Sodium Chloride) 50 mls @ 100 mls/hr IV Q24H [facility] Last Infusion: 09/23/23 05:44 Dose: Infused Documented By: CAROLINA Insulin Human Lispro (Insulin Lispro 100 Unit/Ml 3 Ml Vial) 0 unit SUBCUT QIDACHS [facility]; Protocol Last Admin: 09/23/23 08:02 Dose: Not Given Documented By: JUNIOR Non-Admin Reason: No Insulin Coverage Pantoprazole Sodium (Pantoprazole Sodium 40 Mg/10 Ml Vial) 40 mg IVPUSH Q24H [facility] Last Admin: 09/23/23 05:11 Dose: 40 mg Documented By: CAROLINA Sodium Chloride (0.9 % Sodium Chloride Flush 3 Ml Syringe) 3 ml IVFLUSH QSHIFT [facility] Last Admin: 09/23/23 09:41 Dose: 3 ml Documented By: JUNIOR Labs 09/23/23 09:08 09/23/23 04:51 Labs: Laboratory Results - last 24 hr 09/22/23 09/22/23 09/22/23 16:23 16:25 17:27 MCV 106.1 H MCH 35.6 H MCHC 33.5 RDW 14.2 Plt Count 144 L MPV 9.4 Immature Gran % (Auto) 0.3 Neut % (Auto) 76.2 H Lymph % (Auto) 11.8 L [place] % (Auto) 9.0 Eos % (Auto) 2.4 Baso % (Auto) 0.3 Lymph # (Auto) 0.9 L [place] # (Auto) 0.7 Eos # (Auto) 0.2 Baso # (Auto) 0.0 Abs Immat Gran (auto) 0.02 Absolute Neuts (auto) 5.8 Absolute Nucleated RBC 0.000 Nucleated RBC % (auto) 0.0 PT 12.6 INR 1.0 Anion Gap 19 Estim Creat Clear Calc 14.0 Estimated GFR 16 POC Glucose Random Glucose 172 H Calcium 8.7 D Magnesium 2.2 Total Bilirubin 0.8 AST 17 ALT 17 Alkaline Phosphatase 58 Troponin I High Sens 425.7 H* D B-Natriuretic Peptide 770 H Total Protein 6.6 Albumin 3.7 Urine Color Urine Appearance Urine pH Ur Specific [place] Urine Protein Urine Glucose (UA) Urine Ketones Urine Blood Urine Nitrite Ur Leukocyte Esterase Urine RBC Urine WBC Ur Squamous Epith Cells Urine Bacteria Hyaline Casts Influenza Type A (PCR) NEGATIVE Influenza Type B (PCR) NEGATIVE RSV RNA Qual (PCR) NEGATIVE SARS-CoV-2 RNA (RT-PCR) NEGATIVE Blood Type B Positive Antibody Screen NEGATIVE Crossmatch See Detail 09/22/23 09/22/23 09/23/23 18:17 21:15 04:51 MCV MCH MCHC RDW Plt Count MPV Immature Gran % (Auto) Neut % (Auto) Lymph % (Auto) [place] % (Auto) Eos % (Auto) Baso % (Auto) Lymph # (Auto) [place] # (Auto) Eos # (Auto) Baso # (Auto) Abs Immat Gran (auto) Absolute Neuts (auto) Absolute Nucleated RBC Nucleated RBC % (auto) PT INR Anion Gap 21 H Estim Creat Clear Calc 13.3 Estimated GFR 15 POC Glucose Random Glucose 106 Calcium 8.6 Magnesium Total Bilirubin 1.2 H AST 19 ALT 16 Alkaline Phosphatase 55 Troponin I High Sens 344.6 H* B-Natriuretic Peptide Total Protein 6.6 Albumin 3.6 Urine Color Yellow Urine Appearance Cloudy Urine pH 5.5 Ur Specific [place] 1.010 Urine Protein 30 (1+) H Urine Glucose (UA) Negative Urine Ketones Negative Urine Blood Negative Urine Nitrite Negative Ur Leukocyte Esterase Large (3+) H Urine RBC 0-2 Urine WBC >50 H Ur Squamous Epith Cells 3-5 Urine Bacteria 4+ Hyaline Casts 6-10 Influenza Type A (PCR) Influenza Type B (PCR) RSV RNA Qual (PCR) SARS-CoV-2 RNA (RT-PCR) Blood Type Antibody Screen Crossmatch 09/23/23 09/23/23 07:07 09:08 MCV 98.9 H D MCH 35.0 H MCHC 35.4 H RDW 16.4 H Plt Count 153 L MPV 9.4 Immature Gran % (Auto) Neut % (Auto) Lymph % (Auto) [place] % (Auto) Eos % (Auto) Baso % (Auto) Lymph # (Auto) [place] # (Auto) Eos # (Auto) Baso # (Auto) Abs Immat Gran (auto) Absolute Neuts (auto) Absolute Nucleated RBC 0.000 Nucleated RBC % (auto) 0.0 PT INR Anion Gap Estim Creat Clear Calc Estimated GFR POC Glucose 120 H Random Glucose Calcium Magnesium Total Bilirubin AST ALT Alkaline Phosphatase Troponin I High Sens B-Natriuretic Peptide Total Protein Albumin Urine Color Urine Appearance Urine pH Ur Specific [place] Urine Protein Urine Glucose (UA) Urine Ketones Urine Blood Urine Nitrite Ur Leukocyte Esterase Urine RBC Urine WBC Ur Squamous Epith Cells Urine Bacteria Hyaline Casts Influenza Type A (PCR) Influenza Type B (PCR) RSV RNA Qual (PCR) SARS-CoV-2 RNA (RT-PCR) Blood Type Antibody Screen Crossmatch Microbiology Microbiology Results: Microbiology 09/22/23 18:17 Urine Culture - Preliminary Urine clean catch - Urine trimble top Culture in progress. Assessment and Plan (1) TED (acute kidney injury): Status: Acute (2) Acute blood loss anemia: Status: Acute Plan Tonia Hernandez is a 78 y/o woman admitted with: Acute on chronic anemia, symptomatic with weakness and dizziness Likely secondary to recent procedure s/p cardiac cath (July 19). s/p 2 units of PRBC transfusion to keep Hgb > 8.0, now stable GI consult pending Dizziness likely secondary to above. Fall precautions. Acute on chronic kidney disease. Secondary to acute blood loss anemia/hypoperfusion. Less likely contrast-induced. Chronic systolic and diastolic congestive heart failure. Not in acute exacerbation. continue lasix Urinary tract infection. Start therapy with ceftriaxone 1 g IV daily. UC obtained -will follow results. Coronary artery disease. Recent cardiac catheterization showed mid RCA 95% stenosis, proximal to mid circumflex has 70% stenosis without significant LAD disease. s/p GREG mid RCA and medical tx for circumflex stenosis. hold Brilinta 90 mg p.o. b.i.d, asa (she got a prescription for Plavix on July 19) for at least 12 months. Elevated troponin trending down. 425.5 --> 344.6. Dr. Matias, contacted by ED, recommended no adjustment of any of her regular medications and agrees with PRBC transfusions. Elevated BNP. At baseline. No symptoms congestive heart failure. CXR negative. Essential hypertension. Hold carvedilol and isosorbide for now. Patient possibly have orthostatic hypotension due to blood loss. Hyperlipidemia. Continue statin. Gout. Continue allopurinol. Type 2 diabetes mellitus. Hold metformin due to CKD. BG checks before meals and bedtime. Insulin sliding scale. Diabetic diet. Neuropathy. Hold gabapentin due to acute on chronic anemia. History of papillary thyroid CA s/p surgery radioactive iodine therapy. levothyroxine GERD. PPI. Code status: Full Attending Dr. [place] DVT prophylaxis: SCDs continue hospital stay for acute anemia treatment with blood transfusions and continue vital signs monitoring. Quality Stroke Does the patient have a stroke diagnosis?: No VTE Prior VTE?: No VTE Risk Level:: Medical - moderate - high VTE Device Contraindication: N/A - Device Ordered VTE Drug Contraindication: Treatment Not Indicated
[2023-09-23] MEDS: Furosemide 20 MG TABLET PO (13:03)
[2023-09-23] MEDS: Isosorbide Mononitrate 30 MG TAB.ER.24H PO (13:03)
[2023-09-23 13:42] LABS: Glucose, Whole Blood 138 mg/dL (60-115)
[2023-09-23] MEDS: Valsartan 40 MG TABLET PO ×2 (15:56→22:58)
--- NOTE | 2023-09-23 17:50 | PM.EVENT ---
Event Note Date of Service: 09/23/23 Event Note: GI Consult-History from patient and her daughter, as well as from her RN and EMR. Imp: 78 yo female with chronic anemia and renal insufficiency presenting with increased weakness and SOB due to a worsening anemia from her baseline after a cardiac cath on 09/19/2023. She reports a Hgb of 7.3 at that time on 09/18. She has been on chronic aspirin but Plavix was added to her regimen after the cath. She does not use any chronic NSAIDs. She denies any new nor significant GI symptoms, and does not have any evidence nor any obvious signs of GI bleeding. She has been noted to have worsening renal insufficiency as of this admission.She did have negative colonoscopies with me in 2007 and 2018. She denies any significant family history of GI malignancy. She does feel better after her transfusions here. Diff dx: Acute on chronic anemia in association with her baseline hematologic disorder, renal insufficiency, and recent cardiac cath procedure. I do not think she has any active GI bleeding nor GI process. Rec: Supportive care. Transfuse as needed. Diet as tolerated. I will add a daily H2-wolf given her need for aspirin and Plavix, and her reported allergy to Prilosec/omeprazole. I do not think she needs any type of GI w/u at this time given her clinical history. She will need Renal and Cardiology follow up, as well as her usual Hematology follow up. D/W patient and daughter in detail. They are comfortable with this plan. Please call me if I can be of any further assistance. Thanks Time Spent With Patient Time: Total time managing care of this patient today ____ minutes.
[2023-09-23 18:13] LABS: Glucose, Whole Blood 180 mg/dL (60-115)
[2023-09-23] MEDS: Insulin Lispro 100 UNIT/ML 3 ML VIAL SUBCUT (18:27)
[2023-09-23 22:02] LABS: Glucose, Whole Blood 130 mg/dL (60-115)
[2023-09-23] MEDS: Famotidine 20 MG TABLET 40 MG PO (22:19)
[2023-09-23] MEDS: Cyanocobalamin (Vitamin B-12) 1,000 MCG TABLET 5000 MCG PO (22:19)
[2023-09-23] MEDS: Gabapentin 100 MG CAPSULE PO (22:20)
[2023-09-23] MEDS: allopurinoL 300 MG TABLET PO (22:58)
[2023-09-24] MEDS: 0.9 % Sodium Chloride Flush 3 ML SYRINGE IVFLUSH ×2 (00:18→08:42)
[2023-09-24 01:10] VITALS: BMI 25.1
[2023-09-24 01:36] VITALS: BP 151/66; PULSE 67; RESP 20; TEMP 36.5; O2SAT 95
[2023-09-24 04:00] VITALS: BP 115/56; PULSE 64; RESP 18; TEMP 36.4; O2SAT 95
--- NOTE | 2023-09-24 04:08 | CONS_ITS ---
DATE OF SERVICE: 09/23/2023 REASON FOR CONSULTATION: Anemia. HISTORY OF PRESENT ILLNESS: This has been obtained from the patient, her daughter, and the medical record. The patient is a 78-year-old female admitted to the hospital with progressive weakness and short of breath with an associated hemoglobin of 6.4. She has had a longstanding history of anemia in relation to a hematologic disorder followed by Dr. Tse. She had a hemoglobin of 7.3 on September 10, and 8.3 on August 20. She describes that she does receive intermittent transfusions. Up until recently, she had been on 81 mg aspirin daily. However on September 18, she underwent a cardiac catheterization with the placement of at least 1 coronary artery stent. Subsequent to that, she has been on Plavix for the past few days. She does not use any NSAIDs, tobacco, nor significant alcohol. She describes that she had a hemoglobin of 7.3 either on the day of her catheterization on September 18 or the day afterwards before being discharged. Over the past 3 or 4 days at home, she describes progressive weakness and finally coming to the ER where she was found to have a hemoglobin down to 6.4. She denies any new GI symptoms and specifically denies any history of heartburn, dysphagia, anorexia, nausea, vomiting, change in bowel habits, melena, nor hematochezia. She does have fairly chronic loose bowel movements each morning, but this responded well to Imodium. She had a colonoscopy with ca in 2018 that was negative for any underlying inflammatory bowel disease, microscopic colitis, or polyps. She also had a negative colonoscopy in 2007. Since admission here, she did receive 2 units of blood and definitely feels much better. Her hemoglobin was up to 9.7 this morning. She has been tolerating her diet. She has not had any new GI symptoms here and again there has been no evidence of any GI bleeding. MEDICATIONS: At home included allopurinol, ascorbic acid, aspirin calcium carbonate, carvedilol, vitamin D, clopidogrel, vitamin B12, folic acid, furosemide, gabapentin, isosorbide, levothyroxine, metformin, rosuvastatin, valsartan. Her medications here in the hospital include acetaminophen, vitamin C, calcium carbonate, IV ceftriaxone, clopidogrel, folic acid, furosemide, gabapentin, insulin, isosorbide, levothyroxine, IV pantoprazole, and valsartan. PAST MEDICAL HISTORY: History of breast cancer with recent lumpectomy and biopsy. Recent placement of coronary artery stent on September 18. She has diabetes, thyroid cancer status post surgery; congestive heart failure, polymyalgia rheumatica, hypertension, gastroesophageal reflux, chronic anemia followed by Dr. Tse and requiring transfusions periodically; history of pulmonary embolus, kidney stones. She denies any history of CO or stroke. SOCIAL HISTORY: She lives with her son. She does not smoke or drink. FAMILY HISTORY: Noncontributory for any first-degree relatives with GI malignancy. She describes a grandmother having had colon cancer. REVIEW OF SYSTEMS: CONSTITUTIONAL: She has been feeling weak at home. However, her appetite has been good. SKIN: No rash. No pruritus. CARDIAC: No chest pain. PULMONARY: No coughing nor hemoptysis. GI: As above. URINARY: No dysuria. No hematuria. PHYSICAL EXAMINATION: GENERAL: The patient is a pleasant, pale, alert female, in no distress. SKIN: Warm and dry. Anicteric sclerae. NECK: Supple. CHEST: Clear. CARDIAC: Normal S1, S2. ABDOMEN: Soft, nondistended, nontender. EXTREMITIES: Without edema. IMPRESSION: The patient appears to have a significant chronic anemia in relation to her hematologic disorder. She has been receiving periodic transfusions on that basis alone. She now presents with more of a significant drop in her hemoglobin on a relatively acute basis, but without any reported nor clinical evidence of gastrointestinal bleeding. She is not having any new nor chronic GI complaints. I suspect her anemia currently is in relation to her chronic hematologic disorder as well as some renal insufficiency. The somewhat worsening anemia could be in relation to the recent cardiac cath procedure and initiation of Plavix. Again, I do not think she has any active gastrointestinal bleeding nor any GI process that would account for this. At this point, I would continue supportive care and transfuse her as needed. I would allow her to have her diet as tolerated. I do not think she needs any type of endoscopic workup at this time given the clinical history. I shall add a daily H2 wolf given her need for daily aspirin and Plavix, her anemia, and chronic renal failure all of which can predispose an increased risk of gastritis and blood loss. I will have her stop her PPI given her reported allergy and otherwise lack of symptoms that would require that at this time. We did review that she will need Renal and Cardiology followup, as well as Hematology followup. However, at this point, I explained to her and her daughter that I do not think she needs any endoscopic workup from my standpoint. This has all been discussed with the patient and her daughter in detail. They are comfortable with the plan. Thank you for the consultation. MD MARIO Campbell/BARBARA / [phone] [email or web address]
[2023-09-24] MEDS: Levothyroxine Sodium 100 MCG TABLET PO (05:27)
[2023-09-24] MEDS: cefTRIAXone sodium 1 GM in 0.9 % Sodium Chloride 50 ML IV (05:27)
[2023-09-24 07:31] LABS: Hematocrit 27.9 % (37.0-47.0); Hemoglobin 9.6 g/dl (12.0-16.0); Mean Corpuscular HGB Conc 34.4 g/dl (31.0-35.0); Mean Corpuscular Hemoglobin 33.6 pg (27.0-33.0); Mean Corpuscular Volume 97.6 fL (80.0-98.0); Mean Platelet Volume 9.1 fL (9.4-12.3); Platelet Count 146 X10*3/uL (160-400); Red Blood Count 2.86 X10*6/uL (4.20-5.50); White Blood Count 7.1 X10*3/uL (4.8-10.8)
[2023-09-24 07:40] LABS: Glucose, Whole Blood 111 mg/dL (60-115)
[2023-09-24 07:49] VITALS: BP 149/71; PULSE 68; RESP 20; TEMP 36.5; O2SAT 92
[2023-09-24 07:49] LABS: Anion Gap 17 (12-20); Blood Urea Nitrogen 52 mg/dL (9-16); Calcium 9.3 mg/dL (8.4-10.2); Carbon Dioxide 22 mmol/L (22-29); Chloride 108 mmol/L (96-108); Creatinine Clr Calc Pharmacy 15.5; Estimated Glomerular Filt Rate 18; Glucose Fasting 111 mg/dL (60-99); Potassium 3.4 mmol/L (3.3-5.1); Sodium 144 mmol/L (135-145)
[2023-09-24 08:41] VITALS: BP 149/71
[2023-09-24] MEDS: Valsartan 40 MG TABLET PO (08:41)
[2023-09-24] MEDS: Furosemide 20 MG TABLET PO (08:41)
[2023-09-24] MEDS: Folic Acid 1 MG TABLET PO (08:41)
[2023-09-24 08:42] VITALS: BP 149/71
[2023-09-24] MEDS: Clopidogrel Bisulfate 75 MG TABLET PO (08:42)
[2023-09-24] MEDS: Ascorbic Acid 500 MG TABLET PO (08:42)
[2023-09-24] MEDS: Isosorbide Mononitrate 30 MG TAB.ER.24H PO (08:42)
[2023-09-24] MEDS: Cholecalciferol (Vitamin D3) 25 MCG TABLET 50 MCG PO (08:42)
--- NOTE | 2023-09-24 09:44 | P.CDIM_ITS ---
PROVIDER RESPONSE TEXT: To clarify, the appropriate diagnosis supported by the clinical indicators: Acute renal failure (with type, appropriate) on Chronic Kidney Disease (CKD): 3 QUERY TEXT: PHYSICIAN'S DOCUMENTATION REQUEST Date of Query: 09/24/2023 07:56 AM EDT Patient Name: Tonia Hernandez Admit Date: 09/23/2023 Dear Kimberly Dalton, A review of the medical record indicates additional documentation may be needed. Please review below and update the documentation accordingly. Clinical Indicators: Progress note: Acute on chronic kidney disease Secondary to acute blood loss anemia/hypoperfusion Less likely contrast-induced Please clarify which of the following accurately represents the specifics to the noted CKD: Acute renal failure (with type, appropriate) on Chronic Kidney Disease (CKD) Stage 1, 2, 3a, 3b, 4 CKD, please provide stage Other (explain) Clinically unable to determine (explain) Thank you, Belle Lund, CCS, CDIS Use of terms such as suspected, likely, concern for, or probable (associated with a specific diagnosi s that is being evaluated, monitored, or treated as if it exists) are acceptable and can be coded in the inpatient se tting, when documented at the time of discharge. Please use your independent medical judgment in providing your response. THIS QUERY IS PART OF THE PERMANENT MEDICAL RECORD
--- NOTE | 2023-09-24 10:17 | P.DS_ITS ---
DS: Providers Provider Date of Service: 09/24/23 Date of admission: 09/22/23 22:41 Primary care physician: John Avina DO Consults: 09/23/23 12:54 Consult to Gastroenterology Routine Consulting Provider: John Solomon Reason for consultation: anemia. GI bleed 09/24/23 07:17 Consult to Cardiology Routine Consulting Provider: [facility] Reason for consultation: GI bleed, recent cath 09/24/23 09:59 Consult to Nephrology Routine Consulting Provider: [facility] Reason for consultation: ted in ckd DS: Diagnosis Discharge Diagnosis (1) TED (acute kidney injury): Status: Acute (2) Acute blood loss anemia: Status: Acute DS: Summary Hospital Course Hospital Course: HP as per admitting provider. 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. She denied any associated headache, palpitations, shortness of breath, chest pain, abdominal pain, nausea, vomiting or diarrhea. She denied black or bloody stools. In the ED, she was found stable vital signs. Blood workup was remarkable for significant anemia, hemoglobin 6.4 and hematocrit 19.1 (on 09/11/23 it was 7.3 and 21.7, respectively). Creatinine is elevated at 2.85 (prior 1.67). There are no significant electrolyte imbalances. Viral testing is negative for COVID-19, RSV and influenza. CXR showed no evidence of infiltrate or congestive heart failure. ED tx: Two units of PRBCs ordered (first unit was just started). 78-year-old woman treated for acute on chronic anemia. She was symptomatic with weakness and dizziness. She received a total of 2 units of packed red blood cells. She was seen and evaluated by Gastroenterology who thinks that this acute anemia and secondary to her chronic anemia, kidney disease and possibly some correlation with a cardiac catheterization as patient was started on Plavix. She did not require an endoscopy or colonoscopy and she can follow up with Gastroenterology outpatient if needed. Her dizziness and weakness did resolved with a stabilization in her H&H. Her acute on chronic kidney disease with likely secondary to acute blood loss and hypoperfusion, less likely contrast induced from the cardiac catheterization. She was noted to have a urinary tract infection, previous E coli. Patient treated with IV ceftriaxone, will continue Ceftin outpatient. History of heart failure with reduced ejection fraction. No exacerbation during hospitalization. Continue Lasix History of coronary artery disease with recent cardiac catheterization. Status post drug-eluting stent to RCA and medical treatment for circumflex stenosis. The patient is to continue aspirin and Plavix she reports she is not taking the Brilinta. Isosorbide and valsartan have also been stopped as per Cardiology Noted elevated troponin. Likely secondary to recent cardiac catheterization Hypertension. Continue home medications Hyperlipidemia. Continue statin Gout. Continue allopurinol Diabetes mellitus type 2. Continue home medications Neuropathy. Continue gabapentin GERD. PPI stopped by GI, started on famotidine Time Attestation Discharge Coordination Time (in mins): 40 Quality: Safe Use of Opioids Does Pt have an Active Cancer Diagnosis on the Problem List?: No Quality: Stroke Does the patient have a stroke diagnosis?: No Physical Exam Vital Signs: Vital Signs: Last Vital Signs Temp 97.7 F 09/24/23 07:49 Pulse 68 09/24/23 07:49 Resp 20 09/24/23 07:49 BP 149/71 H 09/24/23 08:42 Pulse Ox 92 09/24/23 07:49 O2 Del Method Room Air 09/24/23 07:49 BMI result Body Mass Index 25.1 Appearing in no acute distress head is normocephalic atraumatic eyes pupils are PERRLA sclera is anicteric mouth throat mucous membranes are intact and moist neck is supple no lymphadenopathy, no JVD noted lung sounds are clear to auscultation heart regular rate rhythm, clear S1, S2 positive bowel sounds, abdomen is soft, nontender neuro patient is alert x3, no focal deficits DS: Data Data Completed and Pending Labs on day of discharge: Laboratory Results - last 24 hr 09/23/23 09/23/23 09/23/23 13:38 18:09 21:59 WBC RBC Hgb Hct MCV MCH MCHC RDW Plt Count MPV Absolute Nucleated RBC Nucleated RBC % (auto) Sodium Potassium Chloride Carbon Dioxide Anion Gap BUN Creatinine Estim Creat Clear Calc Estimated GFR POC Glucose 138 H 180 H 130 H Fasting Glucose Calcium 09/24/23 09/24/23 07:24 07:29 WBC 7.1 RBC 2.86 L Hgb 9.6 L Hct 27.9 L MCV 97.6 MCH 33.6 H MCHC 34.4 RDW 16.0 Plt Count 146 L MPV 9.1 L Absolute Nucleated RBC 0.000 Nucleated RBC % (auto) 0.0 Sodium 144 Potassium 3.4 Chloride 108 Carbon Dioxide 22 Anion Gap 17 BUN 52 H Creatinine 2.53 H Estim Creat Clear Calc 15.5 Estimated GFR 18 POC Glucose 111 Fasting Glucose 111 H Calcium 9.3 D Preliminary micro results at discharge 09/22/23 18:17 Urine Culture - Preliminary Urine clean catch - Urine trimble top Gram negative leo Discharge Plan Discharge Anticipated Discharge Date/Time: 09/24/23 09:59 Patient Disposition: Home, Self-Care Discharge Diagnosis: Acute on chronic anemia Dizziness Acute on chronic kidney disease Referrals: John Avina DO [Primary Care Provider] - 1 Week Discharge Medications: Continued aspirin 81 mg Tablet,Delayed Release (Dr/Ec) 81 mg PO DAILY [facility] 100 [facility]cg tablet [facility]: skips sundays and wednesdays vitamin E 400 unit Tablet 450 mg PO DAILY folic acid 1 mg Tablet 1 mg PO DAILY cholecalciferol (vitamin D3) [Vitamin D3] 50 mcg (2,000 unit) Tablet 50 mcg PO DAILY cyanocobalamin (vitamin B-12) 5,000 mcg Tablet,Disintegrating 5,000 mcg PO BEDTIME carvedilol 6.25 mg tablet 6.25 mg PO BID rosuvastatin 20 mg tablet 20 mg PO BEDTIME allopurinol 300 mg tablet 300 mg PO DAILY furosemide 20 mg tablet 20 mg PO DAILY gabapentin 100 mg capsule 100 mg PO BEDTIME clopidogrel 75 mg tablet 75 mg PO DAILY calcium carbonate [Calcium 600] 600 mg calcium (1,500 mg) Tablet 600 mg PO 3XW ascorbic acid (vitamin C) [Vitamin C] 500 mg Tablet 500 mg PO DAILY metformin 500 mg tablet extended release 24 hr 1,000 mg PO DAILY AZO D-Mannose 500 mg capsule 500 mg PO DAILY cranberry 500 mg capsule 500 mg PO DAILY Rx Instructions: administer with meals Discontinued isosorbide mononitrate 30 mg tablet extended release 24 hr 30 mg PO DAILY 90 Days Qty: 90 3RF valsartan 40 mg tablet 40 mg PO BID 90 Days Qty: 180 3RF Discharge Orders: Discharge Order (Routine); Ordered 09/24/23 Ordered By: Kimberly Dalton Diet: Advance to usual diet Activity on Discharge: As tolerated Stand Alone Forms: Patient Portal Discharge page Print Language: Djiboutian Other Ambulatory Orders: Basic Metabolic Panel (Routine) Timeframe: 3 Days Facility: [facility] - Location: Laboratory Ordered By: Kimberly Dalton Care Plan Goals: Monitor for any further signs of bleeding or increased weakness or fatigue isosorbide and valsartan have been stopped Health Concerns: Acute on chronic anemia Dizziness Acute on chronic kidney disease Plan of Treatment: Follow-up with primary care provider as needed Assessment: See discharge summary
--- NOTE | 2023-09-24 10:52 | P.CONCA_ITS ---
History of Present Illness History of Present Illness Date of Service: 09/24/23 Requesting physician: Kimberly Dalton Consult reason: troponin elevation and other (Anemia, recent PCI) Chief complaint: Acute on chronic anemia Narrative: I was consulted to see Tonia as she came in with lightheadedness and dizziness and low blood pressure. She was noted to have severe anemia with hemoglobin in the 6 and was subsequently transfused 2 units and hemoglobin is up to 9. She is feeling well. She denies any bleeding issues. Was noted to have acute kidney injury. She on September 18 underwent a cardiac catheterization due to declining LV EF and congestive heart failure at which time she was noted to have severe RCA stenosis for which she underwent drug-eluting stent. She also has moderately severe circumflex lesion at 70% which was left to be treated medically. She is on dual antiplatelet therapy with Plavix and aspirin. She was admitted because of severe anemia and low blood pressure with near-syncope and acute kidney injury. Noted to have elevated troponins which are flat. She denies any chest pain. She wants to go home. She denies any heart failure symptoms. Denies any chest pain. Today the blood pressure is on the higher side. Review of Systems 2 Constitutional: Constitutional: Reports fatigue Eyes: Eyes: Reports no additional eye complaints Cardiovascular: Cardiovascular: Denies chest pain, Denies leg edema, Reports lightheadedness, Denies Loss of Consciousness, Denies dyspnea and Denies dyspnea on exertion Respiratory: Respiratory: Reports no additional respiratory complaints, Denies dyspnea and Denies dyspnea on exertion Gastrointestinal: Gastrointestinal: Reports no additional gastrointestinal complaints Musculoskeletal: Musculoskeletal: Reports no additional musculoskeletal complaints Neurologic: Reports system reviewed and no additional complaints, except as documented Psychiatric: Psychiatric: Reports no additional psychiatric complaints Endocrine: Endocrine: Reports fatigue Hematologic/Lymphatic: Hematologic/Lymphatic: Reports no additional hematologic/lymphatic complaints [facility] Past Medical History Medical History (Updated 09/24/23 @ 11:02 by Helio Comer MD) CAD (coronary artery disease) CHF (congestive heart failure) Diabetes mellitus Cervix prolapsed into vagina History of blood transfusion (~02/01/23) HFrEF (heart failure with reduced ejection fraction) Cardiomyopathy Normal colonoscopy Type 2 diabetes mellitus Diverticulosis Irritable bowel syndrome Pulmonary emboli GERD (gastroesophageal reflux disease) Nephrolithiasis Hypoparathyroidism Papillary thyroid carcinoma HTN (hypertension) Polymyalgia rheumatica Hyperglycemia Chronic anemia Family History Family History Sister CHF (congestive heart failure) Daughter Breast cancer Son Kidney stones Surgical History Surgical History (Updated 09/24/23 @ 11:02 by Helio Comer MD) Stented coronary artery Breast mass, right H/O endoscopy History of cholecystectomy H/O total thyroidectomy Social History Social History Household Members: Children Household Members Other:: son Housing: House Do you presently have visiting nurse or other home services: No Alcohol intake: never Patient Tobacco Use Status: Former Tobacco user Years Smoked: 30 +/- service: No Current occupational status: retired 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 Allergies Allergy/AdvReac Type Severity Reaction Status Date / Time esomeprazole [From NEXIUM] Allergy Intermediate CHEST PAIN Verified 09/22/23 15:46 omeprazole [From PRILOSEC] Allergy Intermediate CHEST PAIN Verified 09/22/23 15:46 diphenhydramine Allergy Dizziness Verified 09/22/23 15:46 [From Benadryl] Active Medications: Current Medications Acetaminophen (Acetaminophen 325 Mg Tablet) 975 mg PO Q6H PRN PRN Reason: mild pain, headache or fever Ascorbic Acid (Ascorbic Acid 500 Mg Tablet) 500 mg PO DAILY COUNTS INCLUDE 234 BEDS AT THE [facility] Last Admin: 09/24/23 08:42 Dose: 500 mg Calcium Carbonate (Calcium Carbonate 500 Mg Tablet) 500 mg PO MoWeFr COUNTS INCLUDE 234 BEDS AT THE [facility] Last Admin: 09/23/23 15:56 Dose: 500 mg Clopidogrel Bisulfate (Clopidogrel Bisulfate 75 Mg Tablet) 75 mg PO DAILY COUNTS INCLUDE 234 BEDS AT THE [facility] Last Admin: 09/24/23 08:42 Dose: 75 mg Cyanocobalamin (Cyanocobalamin (Vitamin B-12) 1,000 Mcg Tablet) 5,000 mcg PO BEDTIME [place] Last Admin: 09/23/23 22:19 Dose: 5,000 mcg Famotidine (Famotidine 20 Mg Tablet) 40 mg PO BEDTIME [place] Last Admin: 09/23/23 22:19 Dose: 40 mg Folic Acid (Folic Acid 1 Mg Tablet) 1 mg PO DAILY [place] Last Admin: 09/24/23 08:41 Dose: 1 mg Furosemide (Furosemide 20 Mg Tablet) 20 mg PO DAILY COUNTS INCLUDE 234 BEDS AT THE [facility]; Protocol Last Admin: 09/24/23 08:41 Dose: 20 mg Gabapentin (Gabapentin 100 Mg Capsule) 100 mg PO BEDTIME COUNTS INCLUDE 234 BEDS AT THE [facility] Last Admin: 09/23/23 22:20 Dose: 100 mg Glucose (Glucose Gel 15 Gm Gel..Gram.) 15 gm PO Q15M PRN; Protocol PRN Reason: per Hypoglycemia Standing Ord. Dextrose (D10) 250 mls @ 750 mls/hr IV Q15M PRN; Protocol PRN Reason: per Hypoglycemia Standing Ord. Ceftriaxone Sodium 1 gm/ (Sodium Chloride) 50 mls @ 100 mls/hr IV Q24H COUNTS INCLUDE 234 BEDS AT THE [facility] Last Infusion: 09/24/23 06:05 Dose: Infused Insulin Human Lispro (Insulin Lispro 100 Unit/Ml 3 Ml Vial) 0 unit SUBCUT QIDACHS COUNTS INCLUDE 234 BEDS AT THE [facility]; Protocol Last Admin: 09/24/23 08:00 Dose: Not Given Isosorbide Mononitrate (Isosorbide Mononitrate 30 Mg Tab.Er.24h) 30 mg PO DAILY COUNTS INCLUDE 234 BEDS AT THE [facility]; Protocol Last Admin: 09/24/23 08:42 Dose: 30 mg Levothyroxine Sodium (Levothyroxine Sodium 100 Mcg Tablet) 100 mcg PO MoTuThFrSa@0600 COUNTS INCLUDE 234 BEDS AT THE [facility] Last Admin: 09/24/23 05:27 Dose: 100 mcg Sodium Chloride (0.9 % Sodium Chloride Flush 3 Ml Syringe) 3 ml IVFLUSH QSHIFT COUNTS INCLUDE 234 BEDS AT THE [facility] Last Admin: 09/24/23 08:42 Dose: 3 ml Valsartan (Valsartan 40 Mg Tablet) 40 mg PO BID COUNTS INCLUDE 234 BEDS AT THE [facility]; Protocol Last Admin: 09/24/23 08:41 Dose: 40 mg Vitamin D (Cholecalciferol (Vitamin D3) 25 Mcg Tablet) 50 mcg PO DAILY COUNTS INCLUDE 234 BEDS AT THE [facility] Last Admin: 09/24/23 08:42 Dose: 50 mcg Home Medications ?Medication ?Instructions ?Recorded ?Confirmed ?Last Taken ?Type aspirin 81 mg tablet,delayed 81 mg PO DAILY 02/29/20 09/23/23 08/08/23 History release cholecalciferol (vitamin D3) 50 50 mcg PO DAILY 02/29/20 09/23/23 08/08/23 History mcg (2,000 unit) tablet (Vitamin D3) cyanocobalamin (vitamin B-12) 5,000 mcg PO BEDTIME 02/29/20 09/23/23 08/08/23 History 5,000 mcg disintegrating tablet folic acid 1 mg tablet 1 mg PO DAILY 02/29/20 09/23/23 08/08/23 History levothyroxine 100 mcg tablet 100 mcg PO MOTUTHFRSA 02/29/20 09/23/23 08/08/23 History vitamin E 400 unit tablet 450 mg PO DAILY 02/29/20 09/23/23 08/08/23 History allopurinol 300 mg tablet 300 mg PO DAILY 09/29/20 09/23/23 08/08/23 History carvedilol 6.25 mg tablet 6.25 mg PO BID 09/29/20 09/23/23 08/08/23 History furosemide 20 mg tablet 20 mg PO DAILY 09/29/20 09/23/23 08/08/23 History rosuvastatin 20 mg tablet 20 mg PO BEDTIME 09/29/20 09/23/23 08/08/23 History gabapentin 100 mg capsule 100 mg PO BEDTIME 05/23/22 09/23/23 08/08/23 History cranberry 500 mg capsule 500 mg PO DAILY 11/20/22 09/23/23 08/08/23 History d-mannose 500 mg capsule (AZO 500 mg PO DAILY 11/20/22 09/23/23 08/08/23 History D-Mannose) ascorbic acid (vitamin C) 500 mg 500 mg PO DAILY 09/23/23 09/23/23 Unknown History tablet (Vitamin C) calcium carbonate (Calcium 600) 600 mg PO 3XW 09/23/23 09/23/23 Unknown History clopidogrel 75 mg tablet 75 mg PO DAILY 09/23/23 09/23/23 Unknown History metformin 500 mg tablet,extended 1,000 mg PO DAILY 09/23/23 09/23/23 Unknown History release 24 hr Physical Exam 2 Vital Signs: Vital Signs: Last Vital Signs Temp 97.7 F 09/24/23 07:49 Pulse 68 09/24/23 07:49 Resp 20 09/24/23 07:49 BP 149/71 H 09/24/23 08:42 Pulse Ox 92 09/24/23 07:49 O2 Del Method Room Air 09/24/23 07:49 BMI result Body Mass Index 25.1 Const: General: cooperative, comfortable, no acute distress, alert, awake and Physically active Nutritional Appearance: average body habitus O rientation/consciousness: patient oriented x3 HEENT: Head: Yes normocephalic and Yes atraumatic Neck: Neck: Yes trachea midline, Yes supple and Yes no JVD Resp: Effort & Inspection: normal respiratory effort Auscultation: clear to auscultation bilaterally Cardio: Jugular venous distension: no JVD Rate: regular rate Rhythm: r egular rhythm Heart sounds: S1 normal heart sound present, S2 normal heart sound present, no click, no gallops and Murmur heart sound present systolic GI: Auscultation: normal bowel sounds Skin: General skin exam: no rashes or lesions noted Neuro: General: patient oriented x3 and no focal motor deficits Extrem: General: Yes no clubbing, cyanosis or edema Psych: Appearance: grossly normal Objective Labs and Meds 09/24/23 07:24 09/24/23 07:24 Lab results: Laboratory Results - last 24 hr 09/23/23 09/23/23 09/23/23 13:38 18:09 21:59 WBC RBC Hgb Hct MCV MCH MCHC RDW Plt Count MPV Absolute Nucleated RBC Nucleated RBC % (auto) Sodium Potassium Chloride Carbon Dioxide Anion Gap BUN Creatinine Estim Creat Clear Calc Estimated GFR POC Glucose 138 H 180 H 130 H Fasting Glucose Calcium 09/24/23 09/24/23 07:24 07:29 WBC 7.1 RBC 2.86 L Hgb 9.6 L Hct 27.9 L MCV 97.6 MCH 33.6 H MCHC 34.4 RDW 16.0 Plt Count 146 L MPV 9.1 L Absolute Nucleated RBC 0.000 Nucleated RBC % (auto) 0.0 Sodium 144 Potassium 3.4 Chloride 108 Carbon Dioxide 22 Anion Gap 17 BUN 52 H Creatinine 2.53 H Estim Creat Clear Calc 15.5 Estimated GFR 18 POC Glucose 111 Fasting Glucose 111 H Calcium 9.3 D Assessment and Plan (1) CAD (coronary artery disease): Status: Acute CAD with recent PCI to the RCA territory without any obvious signs of acute bleeding. She has had prior history of chronic anemia requiring blood transfusion. This is going to be clinically difficult scenario and was discussed with her. Will need to closely watch her hematocrit and workup in etiology. For now as there is no active bleeding would restart her dual antiplatelet therapy. Continue high-intensity statin therapy. Continue carvedilol therapy for blood pressure control. Would hold off on valsartan, see below as well as isosorbide. (2) HFrEF (heart failure with reduced ejection fraction): Status: Acute Heart failure with reduced ejection fraction with last LV ejection fraction of 30% with inferior wall motion abnormality. She recently underwent coronary revascularization expect her LV systolic function to improve. Will follow-up echocardiogram in 6 weeks time. Also hope that she has improvement in her mitral regurgitation. Will continue to monitor clinically. No signs of heart failure today. Given her acute kidney injury hold off on valsartan. Resume carvedilol therapy. Also hold off on Lasix therapy for today but resume starting in a day or 2. Heart failure management discussed. Daily weight monitoring avoidance of salt loading. Follow-up renal function in 1 week along with CBC and if her renal function has trended to baseline will resume valsartan therapy. Will follow up in the clinic after echocardiogram. Thank you for allowing me to partake in her care Procedures Date of Service Date of Service: 09/24/23
[2023-09-24 11:41] LABS: Glucose, Whole Blood 172 mg/dL (60-115)
[2023-09-24 11:46] VITALS: BP 152/72; PULSE 59; RESP 20; TEMP 36.4; O2SAT 94
--- NOTE | 2023-09-24 12:35 | MHC.CM.PN ---
Patient has been medically cleared for dc to home today, self care. Last IMM was addressed yesterday.
== END 2023-09-24 12:59 | disposition home or self-care (01) | DRG 812 ==
LOC: HO.ED 20:42 → HO.EDOVER 23:00 → HO.IMC 09-23 23:45
PROVIDERS: Internal Medicine; Registered Nurse Emergency; Admitting Provider Internal Medicine; Emergency Provider Emergency Medicine; PCP Internal Medicine; Visit Provider Nurse Practitioner Acute Care
DX: D62 Acute posthemorrhagic anemia (principal); I50.42 Chronic combined systolic (congestive) and diastolic (congestive) heart failure; N17.9 Acute kidney failure, unspecified; I13.0 Hypertensive heart and chronic kidney disease with heart failure and stage 1 through stage 4 chronic kidney disease, or unspecified chronic kidney disease; I25.10 Atherosclerotic heart disease of native coronary artery without angina pectoris; M35.3 Polymyalgia rheumatica; N18.30 Chronic kidney disease, stage 3 unspecified; E11.22 Type 2 diabetes mellitus with diabetic chronic kidney disease; B96.1 Klebsiella pneumoniae [K. pneumoniae] as the cause of diseases classified elsewhere; E78.5 Hyperlipidemia, unspecified; I34.0 Nonrheumatic mitral (valve) insufficiency; M10.9 Gout, unspecified; K21.9 Gastro-esophageal reflux disease without esophagitis; D64.3 Other sideroblastic anemias; E11.40 Type 2 diabetes mellitus with diabetic neuropathy, unspecified; E89.0 Postprocedural hypothyroidism; Z20.822 Contact with and (suspected) exposure to COVID-19; Z87.891 Personal history of nicotine dependence; Z85.850 Personal history of malignant neoplasm of thyroid; Z79.02 Long term (current) use of antithrombotics/antiplatelets; Z79.82 Long term (current) use of aspirin; Z79.84 Long term (current) use of oral hypoglycemic drugs; Z79.890 Hormone replacement therapy; Z79.899 Other long term (current) drug therapy
CPT/HCPCS: 0241U; 36415; 71046; 80048; 80053; 81001; 82947; 83735; 83880; 84484; 85025; 85027; 85610; 86850; 86900; 86901; 86923; 87086; 87088; 87186; 93005; 99285; C9113; J0696; P9016

== ENCOUNTER → 2023-09-22 15:50 | Outpatient (BNV) | payer MEDICARE, SELFPAY | PROVIDERS: Admitting Provider Internal Medicine; Emergency Provider Emergency Medicine; PCP Internal Medicine; Visit Provider Internal Medicine Cardiovascular Disease | DX: R00.1 Bradycardia, unspecified (principal); R94.31 Abnormal electrocardiogram [ECG] [EKG] | CPT/HCPCS: 93010 ==

== ENCOUNTER → 2023-09-22 22:41 | Outpatient (BNV) | payer MEDICARE, SELFPAY | PROVIDERS: Admitting Provider Internal Medicine; Emergency Provider Emergency Medicine; PCP Internal Medicine; Visit Provider Internal Medicine Cardiovascular Disease | DX: I25.10 Atherosclerotic heart disease of native coronary artery without angina pectoris (principal); I50.20 Unspecified systolic (congestive) heart failure | CPT/HCPCS: 99222 ==

== ENCOUNTER → 2023-09-22 22:41 | Outpatient (BNV) | payer MEDICARE, SELFPAY | PROVIDERS: Admitting Provider Internal Medicine; Emergency Provider Emergency Medicine; PCP Internal Medicine; Visit Provider Internal Medicine | DX: N17.9 Acute kidney failure, unspecified (principal); D62 Acute posthemorrhagic anemia | CPT/HCPCS: 99223; 99232; 99239 ==

== ENCOUNTER 2023-09-30 14:24 | Outpatient (REF) | payer MEDICARE, SELFPAY ==
[2023-09-30 16:13] LABS: Hematocrit 28.9 % (37.0-47.0); Hemoglobin 9.9 g/dl (12.0-16.0); Mean Corpuscular HGB Conc 34.3 g/dl (31.0-35.0); Mean Corpuscular Hemoglobin 34.3 pg (27.0-33.0); Mean Platelet Volume 9.4 fL (9.4-12.3); Platelet Count 205 X10*3/uL (160-400); Red Blood Count 2.89 X10*6/uL (4.20-5.50); Red Cell Distribution Width 16.7 % (11.0-16.0)
[2023-09-30 16:15] LABS: Anion Gap 12 (12-20); Blood Urea Nitrogen 27 mg/dL (9-16); Calcium 9.9 mg/dL (8.4-10.2); Carbon Dioxide 28 mmol/L (22-29); Chloride 104 mmol/L (96-108); Estimated Glomerular Filt Rate 28; Glucose Random 221 mg/dL (60-115); Sodium 140 mmol/L (135-145)
== END 2023-09-30 14:25 | disposition home or self-care (01) ==
LOC: HO.HMGCLDS 14:24
PROVIDERS: Nurse Practitioner Acute Care; PCP Internal Medicine; Visit Provider Internal Medicine Cardiovascular Disease
DX: N17.9 Acute kidney failure, unspecified (principal); I25.10 Atherosclerotic heart disease of native coronary artery without angina pectoris; R55 Syncope and collapse; E78.5 Hyperlipidemia, unspecified
CPT/HCPCS: 36415; 80048; 85027

== ENCOUNTER 2023-10-03 14:52 | Outpatient (AMB) | payer MEDICARE, SELFPAY ==
[2023-10-03 14:54] VITALS: BP 132/70; PULSE 69; BMI 24.5
--- NOTE | 2023-10-03 14:54 | A.OFFVIS_ITS ---
Vital Signs 10/03/23 14:54 Height 5 ft 1 in Weight 129 lb 10.109 oz BMI 24.5 BP 132/70 Blood Pressure Location Lt brachial Position Sitting Pulse 69 Pulse Source Pulse Oximeter Intake Visit Reasons: Follow up post cardiac cath Dry Chain Worker Required: No Allergies esomeprazole [From NEXIUM] Allergy (Intermediate, Verified 10/03/23 14:57) CHEST PAIN omeprazole [From PRILOSEC] Allergy (Intermediate, Verified 10/03/23 14:57) CHEST PAIN diphenhydramine [From Benadryl] Allergy (Verified 10/03/23 14:57) Dizziness Medication List - Last Reconciled 10/03/23 by JIMMY Correa allopurinol 300 mg PO DAILY ascorbic acid (vitamin C) (Vitamin C) 500 mg PO DAILY aspirin 81 mg PO DAILY calcium carbonate (Calcium 600) 600 mg PO 3XW carvedilol 6.25 mg PO BID cholecalciferol (vitamin D3) (Vitamin D3) 50 mcg PO DAILY clopidogrel 75 mg PO DAILY cranberry 500 mg PO DAILY cyanocobalamin (vitamin B-12) 5,000 mcg PO BEDTIME d-mannose (AZO D-Mannose) 500 mg PO DAILY exemestane 25 mg PO DAILY folic acid 1 mg PO DAILY furosemide 20 mg PO DAILY gabapentin 100 mg PO BEDTIME levothyroxine 100 mcg PO MOTUTHFRSA metformin ER 1,000 mg PO DAILY rosuvastatin 20 mg PO BEDTIME vitamin E 450 mg PO DAILY HPI HPI Follow up post cardiac cath: Details: Tonia is a 78-year-old female past medical history of hypertension, diabetes, chronic kidney disease, heart failure with reduced EF, nonischemic cardiomyopathy who was recently admitted to [facility] with decompensated heart failure. She was treated with IV Lasix and sent home on her usual dose of Lasix 20 mg daily. She was found to have a further reduction in her EF and severe mitral regurgitation. She then underwent cardiac catheterization and now presents for follow-up.. Today she reports that her shortness of breath has improved since recent cardiac catheterization and coronary stenting. She sleeps with 2 pillows which is her norm. She has not having any cough, PND, edema. No chest discomfort at rest or with activity. No heart palpitations, lightheadedness, presyncope, syncope, falls. She has known chronic anemia but denies any signs of bleeding. She follows with hematology. Right femoral catheterization site feeling good. Does only light physical activities. [facility] Medical History CAD (coronary artery disease) CHF (congestive heart failure) Cervix prolapsed into vagina History of blood transfusion (~02/01/23) Diabetes mellitus HFrEF (heart failure with reduced ejection fraction) Cardiomyopathy Normal colonoscopy Type 2 diabetes mellitus Diverticulosis Irritable bowel syndrome Pulmonary emboli GERD (gastroesophageal reflux disease) Nephrolithiasis Hypoparathyroidism Papillary thyroid carcinoma HTN (hypertension) Polymyalgia rheumatica Hyperglycemia Chronic anemia Anemia Surgical History (Updated 10/03/23 @ 17:45 by Lia Doshi NP-C) Stented coronary artery Breast mass, right H/O endoscopy History of cholecystectomy H/O total thyroidectomy Family History Sister CHF (congestive heart failure) Daughter Breast cancer Son Kidney stones Social History Household Members: Children Household Members Other:: son Housing: House Do you presently have visiting nurse or other home services: No Alcohol intake: never Patient Tobacco Use Status: Former Tobacco user Years Smoked: 30 +/- service: No Current occupational status: retired Current occupation: Right Handed Review of Systems Const All systems reviewed & are unremarkable except as noted in HPI and below ENT Denies dizziness Card Denies chest pain, Denies chest pain at rest, Denies chest pain with activity, Denies rapid heart rate, Denies pedal edema, Denies edema, Denies leg edema, Denies lightheadedness, Denies palpitations, Reports dyspnea, Reports dyspnea on exertion and Denies orthopnea Resp Denies cough, Reports dyspnea and Reports dyspnea on exertion GI Denies hematochezia and Denies change in stool character Musc Denies abnormal gait, Denies limited range of motion, Denies muscle cramps, Denies muscle weakness, Denies numbness, Denies radiating pain into limb, Denies stiffness and Denies tingling Neuro Denies abnormal gait, Denies dizziness, Denies numbness and Denies tingling Endo Denies palpitations Physical Exam Vital Signs: Last Vital Signs Pulse 69 10/03/23 14:54 BP 132/70 10/03/23 14:54 BMI result Body Mass Index 24.5 Const General: cooperative, healthy appearing, comfortable and no acute distress Orientation/consciousness: patient oriented x3 Neck Neck: Yes normal visual inspection and Yes no JVD Resp Effort & Inspection: normal respiratory effort Auscultation: clear to auscultation bilaterally, no rales, no rhonchi and no wheezes Cardio Jugular venous distension: no JVD Rate: regular rate Rhythm: regular rhythm Heart sounds: S1 normal heart sound present, S2 normal heart sound present, no murmurs and no rubs Neuro General: patient oriented x3 Extrem General: Yes normal to inspection, No no pedal edema and No calf tenderness Psych Appearance: grossly normal Mental Status: mental status grossly normal Speech and movement: Normal speech and movement present Assessment & Plan Assessment & Plan (1) HFrEF (heart failure with reduced ejection fraction): Code(s): I50.20 - Unspecified systolic (congestive) heart failure Category: Medical Plan: History of heart failure with reduced EF. She was admitted to [facility] recently with shortness of breath, decompensated heart failure. Echocardiogram showed EF 30%, grade 3 diastolic dysfunction, basal inferior and basal inferior lateral segments akinetic, left atrium severely dilated, severe mitral valve regurgitation, mild AR. She was diuresed and sent home on her usual Lasix 20 mg daily. She underwent a cardiac catheterization to further evaluate reduced EF. Catheterization showed mid RCA 95% stenosis, GREG placed. Also residual disease in the mid left circumflex and mild in the mid LAD. She had been feeling some shortness of breath with activity prior to the procedure but tells me now that her breathing is better. She has no chest discomfort, PND, orthopnea or edema. She does not appear fluid overloaded on exam. Will have her continue on Lasix. Previously Entresto was ordered however she was not able to afford the co-pay. She has been on valsartan and carvedilol. Valsartan recently stopped, likely due to TED/ CKD. Continue meds for CAD including aspirin indefinitely, Plavix uninterrupted for at least 1 year. Continue rosuvastatin. Signs and symptoms of heart failure and angina reviewed with her. She has an upcoming echocardiogram. This will evaluate her mitral valve. LUCI is being considered as well for further evaluation. Cardiology follow-up in 1 month, sooner if needed. (2) History of cardiomyopathy: Code(s): Z86.79 - Personal history of other diseases of the circulatory system Category: Medical Plan: History cardiomyopathy, previously thought to be nonischemic. EF 43% 1 year ago. A nuclear stress test done 06/20/2022 showed [id number] reversible defect in the apical part of the anterior septum, anterior wall, apex, adjacent lateral and inferior lateral wall, which could be related to ischemia, less likely artifact. At that time isosorbide was added. No reports of anginal sounding symptoms. Echocardiogram done on recent heart failure admission as above with further reduction in EF and regional wall motion abnormality. Cardiac catheterization as above. Repeat echo is pending. (3) HTN (hypertension): Code(s): I10 - Essential (primary) hypertension Category: Medical Plan: Well controlled at present. No med change made. She is currently off valsartan. Her creatinine had been recently elevated as high as 3. Plan to recheck blood pressure next visit. May need further med titration versus alternate antihypertensive. (4) Anemia: Code(s): D64.9 - Anemia, unspecified Category: Medical Plan: Follows with Dr. Tse. Last labs in our system 08/15/2023 shows hematocrit 27.1 She denies any known active bleeding. (5) Stented coronary artery: Comment: 09/19/2023, drug-eluting stent to critical RCA stenosis at 95% for ischemic cardiomyopathy Code(s): Z95.5 - Presence of coronary angioplasty implant and graft Category: Medical Plan: Right femoral catheterization site well healed, easily palpable femoral pulse. (6) CAD (coronary artery disease): Comment: Cardiac catheterization, August 2023 showed critical RCA stenosis 95%, status post drug-eluting stent, 70% circumflex stenosis Code(s): I25.10 - Atherosclerotic heart disease of [place] coronary artery without angina pectoris Category: Medical Plan: Recent cardiac catheterization showing significant RCA stenosis, GREG was placed, residual mid left circumflex 70% stenosis and mid LAD 30-40% stenosis. No reports of anginal sounding symptoms. Will start in cardiac rehab. Continue aspirin indefinitely. Continue Plavix uninterrupted for 1 year. Continue carvedilol. Plan Time spent on chart review, documentation, interview and assessment Orders: Orders Cardiac Rehab 10/03/23 Z95.5 - Presence of coronary angioplasty implant and gr aft Coding Level of Care Code Est Pt Level 4 (65599) Diagnoses HFrEF (heart failure with reduced ejection fraction) I50.20 History of cardiomyopathy Z86.79 HTN (hypertension) I10 Anemia D64.9 Stented coronary artery Z95.5 CAD (coronary artery disease) I25.10 Time Spent (min) 30
== END 2023-10-03 15:43 | disposition home or self-care (01) ==
PROVIDERS: PCP Internal Medicine; Visit Provider Nurse Practitioner Family
DX: I50.20 Unspecified systolic (congestive) heart failure (principal); Z86.79 Personal history of other diseases of the circulatory system; I10 Essential (primary) hypertension; D64.9 Anemia, unspecified; Z95.5 Presence of coronary angioplasty implant and graft; I25.10 Atherosclerotic heart disease of native coronary artery without angina pectoris
CPT/HCPCS: 99214

== ENCOUNTER → 2023-10-03 14:52 | Outpatient (BNVA) | payer MEDICARE, SELFPAY | PROVIDERS: PCP Internal Medicine; Visit Provider Nurse Practitioner Family | DX: I11.0 Hypertensive heart disease with heart failure (principal); I50.20 Unspecified systolic (congestive) heart failure; I25.10 Atherosclerotic heart disease of native coronary artery without angina pectoris; D64.9 Anemia, unspecified; Z95.5 Presence of coronary angioplasty implant and graft; Z86.79 Personal history of other diseases of the circulatory system | CPT/HCPCS: 99212 ==

== ENCOUNTER → 2023-10-22 12:47 | Outpatient (REF) | payer MEDICARE, SELFPAY ==
--- NOTE | 2023-10-22 12:50 | CA_ITS ---
Transthoracic Echocardiogram Patient (Last, First, Middle): Tonia Hernandez Ray Gender: Female Date of : 1945 Age: 78 Procedure Date: 10/22/2023 Procedure Type: Transthoracic Echocardiogram Location: OP Height: 154.94 cm Weight: 57.61 kg BSA: 1.56 m2 Heart Rate: bpm BP: 102 / 58 mmHg Break And Load Operator: TO Referring MD: Lia Doshi GRINDER MACHINE SETTERMaikel Symptoms: Z86.79 - Personal history of other diseases of the circulatory system Study Quality: Fair ECG Rhythm: Sinus Conclusions: - The left ventricular systolic function is moderately decreased. The calculated ejection fraction is 40% by biplane method. - The basal inferior, mid inferior, basal inferoseptal, and basal inferolateral segments are akinetic. - There is mild mitral valve regurgitation. Findings Procedure Information The study quality is limited by the patients inability to tolerate the test. Left Ventricle Normal left ventricular cavity size. There is normal left ventricular wall thickness. The left ventricular systolic function is moderately decreased. The calculated ejection fraction is 40% by biplane method. There is evidence of regional wall motion abnormalities. Evidence suggests grade I (mild) diastolic dysfunction. Wall Motion Rest Echo Findings The basal inferior, mid inferior, basal inferoseptal, and basal inferolateral segments are akinetic. Right Ventricle Normal right ventricular cavity size. There is mildly decreased right ventricular systolic function. Atria The left atrium is moderately dilated. The right atrium is normal in size. Aortic Valve There is a normal trileaflet aortic valve. There is mild calcification of the aortic valve. There is no aortic valve stenosis. There is mild aortic valve regurgitation. Mitral Valve The mitral valve appears normal. There is mild mitral valve regurgitation. There is no mitral valve stenosis. Pulmonic Valve There is trace pulmonic valve regurgitation. Tricuspid Valve Normal tricuspid valve structure. There is trace tricuspid valve regurgitation. There is no evidence of pulmonary hypertension. Great Vessels There is mild dilatation of the ascending aorta measuring 3.90 cm. Venous The inferior vena cava is normal in size and collapses greater than 50% with inspiration. Pericardium/Pleural There is a small loculated pericardial effusion overlying the left ventricle. Prior Study Comparison Changes noted compared to prior study dated: 08/09/2023. Improved LVEF, diastolic function, mitral regurgitation. Measurements 2D Linear Measurements IVSd: 0.89 0.6-0.9/0.6-1.0 cm LVIDd: 5.32 3.9-5.3/4.2-5.9 cm LVIDd Index: 3.41 2.4-3.2/2.2-3.1 cm/m2 LVIDs: 4.60 2.0-3.6 cm LVPWd: 0.88 0.7-1.1 cm LA Diam: 4.20 2.7-3.8/3.0-4.0 cm LAIDs Index: 2.69 1.5-2.3 cm/m2 LV Mass: 214.07 67-162/88-224 g LV Mass Index: 137.22 43-95/49-115 g/m2 LVOT Diam: 2.10 3.0+(-)1.3 cm 2D Systolic Function EF 4C: 36.20 >55% EF 2C: 39.60 >55% EF BiP: 39.60 >55% Mitral Valve MV Pk E: 0.38 MV PK A: 0.66 MV Decel Time: 288.00 E/A: 0.60 E'Lateral: 4.13 E'Medial: 2.39 E/E' Med: 15.90 E/E' Lat: 9.20 PHT: 84.00 MVA PHT: 2.62 Decel Fajardo: 1.33 Aortic Valve AoV Pk Dex: 1.64 AoV Mn Dex: 1.17 AoV VTI: 0.31 AoV Pk Grad: 11.00 Aov Mn Grad: 6.00 LUCAS Cont.VTI: 2.01 AI Pk Dex: 4.48 AI Fajardo: 2.17 LVOT LVOT Pk Dex: 0.88 LVOT Mn Dex: 0.61 LVOT VTI: 0.18 LVOT Pk Grad: 3.00 LVOT Mn Grad: 2.00 LVOT Diam: 2.10 LVOT Area: 3.46 Diastolic Function MV Pk E: 0.38 MV Pk A: 0.66 E/A: 0.60 E'Medial: 2.39 E/E' Med: 15.90 E' Laterial: 4.13 E/E' Lat: 9.20 Right Ventricle TAPSE (mm): 15.70 TVS' Dex: 7.62 Tricuspid Valve RA Press: 3.00 Great Vessels Aorta Sinus of Valsalva: 3.87 2.0-3.[address] [place]: 2.86 1.7-3.4 cm Ao Asc: 3.90 2.1-3.4 cm Ao Arch: 3.00 Updated in Other Vendor System with Status of Final Alexander Matias MD electronically signed on 10/24/2023 11:54:50 AM with status of Final
== END ==
LOC: HO.CARD 12:47
PROVIDERS: PCP Internal Medicine; Visit Provider Nurse Practitioner Family
DX: Z86.79 Personal history of other diseases of the circulatory system (principal)
CPT/HCPCS: 93306

== ENCOUNTER → 2023-10-22 12:50 | Outpatient (BNV) | payer MEDICARE, SELFPAY | PROVIDERS: PCP Internal Medicine; Visit Provider Internal Medicine | DX: I34.0 Nonrheumatic mitral (valve) insufficiency (principal); I35.1 Nonrheumatic aortic (valve) insufficiency | CPT/HCPCS: 93306 ==

== ENCOUNTER 2023-11-12 14:40 | Outpatient (AMB) | payer MEDICARE, SELFPAY ==
--- NOTE | 2023-11-12 14:42 | MHC.OFFVIS ---
Vital Signs 11/12/23 14:43 Height 5 ft 1 in Weight 130 lb 15.273 oz BMI 24.7 BP 134/70 Blood Pressure Location Lt brachial Position Sitting Pulse 60 Pulse Source Pulse Oximeter Intake Visit Reasons: 1m follow up Triage Assistant Required: No Allergies esomeprazole [From NEXIUM] Allergy (Intermediate, Verified 11/12/23 14:45) CHEST PAIN omeprazole [From PRILOSEC] Allergy (Intermediate, Verified 11/12/23 14:45) CHEST PAIN diphenhydramine [From Benadryl] Allergy (Verified 11/12/23 14:45) Dizziness Medication List - Last Reconciled 11/12/23 by JIMMY Correa allopurinol 300 mg PO DAILY ascorbic acid (vitamin C) (Vitamin C) 500 mg PO DAILY aspirin 81 mg PO DAILY calcium carbonate (Calcium 600) 600 mg PO 3XW carvedilol 6.25 mg PO BID cholecalciferol (vitamin D3) (Vitamin D3) 50 mcg PO DAILY clopidogrel 75 mg PO DAILY cranberry 500 mg PO DAILY cyanocobalamin (vitamin B-12) 5,000 mcg PO BEDTIME d-mannose (AZO D-Mannose) 500 mg PO DAILY exemestane 25 mg PO DAILY folic acid 1 mg PO DAILY furosemide 20 mg PO DAILY gabapentin 100 mg PO BEDTIME levothyroxine 100 mcg PO MOTUTHFRSA metformin ER 1,000 mg PO DAILY rosuvastatin 20 mg PO BEDTIME vitamin E 450 mg PO DAILY HPI HPI 1m follow up: Details: Tonia is a 78-year-old female past medical history of hypertension, diabetes, chronic kidney disease, heart failure with reduced EF, nonischemic cardiomyopathy who was recently admitted to [facility] with decompensated heart failure. She was treated with IV Lasix and sent home on her usual dose of Lasix 20 mg daily. She was found to have a further reduction in her EF and severe mitral regurgitation. She underwent outpatient cardiac catheterization, was found to have RCA stenosis and a stent was placed. She then underwent a repeat echocardiogram and now presents for follow-up. Today she reports that she continues to have some shortness of breath at times. She was woken during the night last night with feeling short of breath. She is having no cough, or sign of illness. She sleeps with 2 pillows which is her norm. She has not had any recent edema. No chest discomfort at rest or with activity. No heart palpitations, lightheadedness, presyncope, syncope, falls. She has known chronic anemia but denies any signs of bleeding. She follows with hematology. Does only light physical activities. Has not been called yet by cardiac rehab. [facility] Medical History CAD (coronary artery disease) CHF (congestive heart failure) Cervix prolapsed into vagina History of blood transfusion (~02/01/23) Diabetes mellitus HFrEF (heart failure with reduced ejection fraction) Cardiomyopathy Normal colonoscopy Type 2 diabetes mellitus Diverticulosis Irritable bowel syndrome Pulmonary emboli GERD (gastroesophageal reflux disease) Nephrolithiasis Hypoparathyroidism Papillary thyroid carcinoma HTN (hypertension) Polymyalgia rheumatica Hyperglycemia Chronic anemia Anemia Surgical History Stented coronary artery Breast mass, right H/O endoscopy History of cholecystectomy H/O total thyroidectomy Family History Sister CHF (congestive heart failure) Daughter Breast cancer Son Kidney stones Social History Household Members: Children Household Members Other:: son Housing: House Do you presently have visiting nurse or other home services: No Alcohol intake: never Patient Tobacco Use Status: Former Tobacco user Years Smoked: 30 +/- service: No Current occupational status: retired Current occupation: Right Handed Review of Systems Const All systems reviewed & are unremarkable except as noted in HPI and below ENT Denies dizziness Card Denies chest pain, Denies chest pain at rest, Denies chest pain with activity, Denies rapid heart rate, Denies pedal edema, Denies edema, Denies leg edema, Denies lightheadedness, Denies palpitations, Reports dyspnea, Denies dyspnea on exertion and Denies orthopnea Resp Denies cough, Reports dyspnea and Denies dyspnea on exertion GI Denies hematochezia and Denies change in stool character Musc Denies abnormal gait, Denies limited range of motion, Denies muscle cramps, Denies muscle weakness, Denies numbness, Denies radiating pain into limb, Denies stiffness and Denies tingling Neuro Denies abnormal gait, Denies dizziness, Denies numbness and Denies tingling Endo Denies palpitations Physical Exam Vital Signs: Last Vital Signs Pulse 60 11/12/23 14:43 BP 134/70 11/12/23 14:43 BMI result Body Mass Index 24.7 Const General: cooperative, healthy appearing, comfortable and no acute distress Orientation/consciousness: patient oriented x3 Neck Neck: Yes normal visual inspection and Yes no JVD Resp Effort & Inspection: normal respiratory effort Auscultation: clear to auscultation bilaterally, no crackles, no rales, no rhonchi and no wheezes Cardio Jugular venous distension: no JVD Rate: regular rate Rhythm: regular rhythm Heart sounds: S1 normal heart sound present, S2 normal heart sound present, no murmurs and no rubs Neuro General: patient oriented x3 Extrem General: Yes normal to inspection and No no pedal edema Psych Appearance: grossly normal Mental Status: mental status grossly normal Speech and movement: Normal speech and movement present Assessment & Plan Assessment & Plan (1) HFrEF (heart failure with reduced ejection fraction): Code(s): I50.20 - Unspecified systolic (congestive) heart failure Category: Medical Plan: History of heart failure with reduced EF. She was admitted to [facility] recently with shortness of breath, decompensated heart failure. Echocardiogram showed EF 30%, grade 3 diastolic dysfunction, basal inferior and basal inferior lateral segments akinetic, left atrium severely dilated, severe mitral valve regurgitation, mild AR. ( prior EF was 43%). She was diuresed and sent home on her usual Lasix 20 mg daily. She underwent a cardiac catheterization to further evaluate reduced EF. Catheterization showed mid RCA 95% stenosis, GREG placed. Also residual disease in the mid left circumflex and mild in the mid LAD. Echocardiogram done 10/22/2023 showed EF 40%, grade 1 diastolic dysfunction and mild MR, same wall motion abnormality. Since her catheterization procedure she has had some shortness of breath at times. She describes shortness of breath that woke her from sleep during the night. On exam today she does not appear fluid overloaded. No rales noted on exam, no edema. Her weight has been stable. Signs and symptoms of heart failure reviewed with her. Instructed to take an additional dose of Lasix as needed for increased shortness of breath. Continue carvedilol for neurohormonal modulation. She had been on valsartan which was previously stopped due to TED/ CKD. Labs done on 10/30/2023 showed creatinine 2.05 which is similar to prior. (2) History of cardiomyopathy: Code(s): Z86.79 - Personal history of other diseases of the circulatory system Category: Medical Plan: History cardiomyopathy, previously thought to be nonischemic. EF 43% 1 year ago. A nuclear stress test done 06/20/2022 showed [id number] reversible defect in the apical part of the anterior septum, anterior wall, apex, adjacent lateral and inferior lateral wall, which could be related to ischemia, less likely artifact. Echocardiogram done on recent heart failure admission as above with further reduction in EF and regional wall motion abnormality. Cardiac catheterization as above. (3) HTN (hypertension): Code(s): I10 - Essential (primary) hypertension Category: Medical Plan: Well controlled at present. No med change made. She is currently off valsartan. Her creatinine had been recently elevated as high as 3, now down to 2.05. With her CKD will keep her off Tunde/Arb. Will continue to monitor blood pressure and if further medications are needed will consider hydralazine. (4) Anemia: Code(s): D64.9 - Anemia, unspecified Category: Medical Plan: Follows with Dr. Tse. Last labs in our system 10/30/2023 shows hematocrit 24.3 She denies any known active bleeding. (5) Stented coronary artery: Comment: 09/19/2023, drug-eluting stent to critical RCA stenosis at 95% for ischemic cardiomyopathy Code(s): Z95.5 - Presence of coronary angioplasty implant and graft Category: Medical Plan: As above (6) CAD (coronary artery disease): Comment: Cardiac catheterization, August 2023 showed critical RCA stenosis 95%, status post drug-eluting stent, 70% circumflex stenosis Code(s): I25.10 - Atherosclerotic heart disease of [place] coronary artery without angina pectoris Category: Medical Plan: Recent cardiac catheterization showing significant RCA stenosis, GREG was placed, residual mid left circumflex 70% stenosis and mid LAD 30-40% stenosis. No reports of anginal sounding symptoms. Cardiac rehab ordered last visit. She tells me she has not been called by them as of yet. Will send a message to our lining stamper. Continue aspirin indefinitely. Continue Plavix uninterrupted for 1 year. Continue carvedilol. (7) Mitral regurgitation: Code(s): I34.0 - Nonrheumatic mitral (valve) insufficiency Category: Medical Plan: Echocardiogram done 08/09/2023 showed severe mitral regurgitation. A repeat echocardiogram done 10/22/2023 shows mild mitral regurgitation. No plan for LUCI at this time. Plan Time spent on chart review, documentation, interview and assessment Coding Level of Care Code Est Pt Level 4 (81621) Diagnoses HFrEF (heart failure with reduced ejection fraction) I50.20 History of cardiomyopathy Z86.79 HTN (hypertension) I10 Anemia D64.9 Stented coronary artery Z95.5 CAD (coronary artery disease) I25.10 Mitral regurgitation I34.0 Time Spent (min) 28
[2023-11-12 14:43] VITALS: BP 134/70; PULSE 60; BMI 24.7
== END 2023-11-12 15:30 | disposition home or self-care (01) ==
PROVIDERS: PCP Internal Medicine; Visit Provider Nurse Practitioner Family
DX: I50.20 Unspecified systolic (congestive) heart failure (principal); Z86.79 Personal history of other diseases of the circulatory system; I10 Essential (primary) hypertension; D64.9 Anemia, unspecified; Z95.5 Presence of coronary angioplasty implant and graft; I25.10 Atherosclerotic heart disease of native coronary artery without angina pectoris; I34.0 Nonrheumatic mitral (valve) insufficiency
CPT/HCPCS: 99214

== ENCOUNTER → 2023-11-12 14:40 | Outpatient (BNVA) | payer MEDICARE, SELFPAY | PROVIDERS: PCP Internal Medicine; Visit Provider Nurse Practitioner Family | DX: I11.0 Hypertensive heart disease with heart failure (principal); I50.20 Unspecified systolic (congestive) heart failure; D64.9 Anemia, unspecified; I25.10 Atherosclerotic heart disease of native coronary artery without angina pectoris; I34.0 Nonrheumatic mitral (valve) insufficiency; Z86.79 Personal history of other diseases of the circulatory system; Z79.02 Long term (current) use of antithrombotics/antiplatelets; Z79.82 Long term (current) use of aspirin; Z79.899 Other long term (current) drug therapy; Z95.5 Presence of coronary angioplasty implant and graft | CPT/HCPCS: 99212 ==

== ENCOUNTER 2023-11-19 10:53 | Day surgery (SDC) | payer MEDICARE, SELFPAY ==
--- NOTE | ~2023-11-19 | CT_ITS ---
History: Anemia Procedures performed: 1. CT-guided bone marrow aspiration and core biopsy sample of ileum Physician: Emily Alfredo MD Anesthesia: IV moderate sedation with intravenous fentanyl and Versed was administered under my supervision with continuous physiologic monitoring for a total of 30 minutes. 8 mL of 1% lidocaine was administered for local anesthesia. Specimen: Single core specimen of left ilium; 20 mL bone marrow aspirate. Drain: None Estimated blood loss: Minimal Complications: None Procedure in detail: Informed and written consent was obtained. Patient was positioned prone on the CT examination table. Preliminary CT scan showed an appropriate site for access to the left ilium. The overlying skin was prepped and draped. 1% lidocaine was injected subcutaneously and extended to the periosteum. A small incision was made in the skin with a #11 blade. The 13-gauge needle of the ModiFace device was drilled beyond the proximal cortex into the left ilium. A 20 mL aspirate of marrow was then obtained. Further drilling was then performed deeper into the left ilium and the needle was subsequently removed. A core was placed in formalin and determined to be adequate. A sterile dressing was applied. Summary: Successful CT-guided bone marrow aspiration and core biopsy sample of the ileum.
[2023-11-19 11:44] VITALS: BMI 24.6
[2023-11-19 12:07] VITALS: BP 142/51; PULSE 65; RESP 18; TEMP 36.7; O2SAT 96
[2023-11-19 12:09] LABS: Glucose, Whole Blood 104 mg/dL (60-115)
--- NOTE | 2023-11-19 12:24 | PC.NURSE ---
report given to mart rivear rn at this time.
--- NOTE | 2023-11-19 12:52 | MHC.SHP ---
Pre-Procedural Eval Section A - 24 Hr Update-Section A only Date of Service: 11/19/23 Section B - Complete if H&P > 30 days Chief Complaint: BONE MARROW, ANEMIA Details of Present Illness: 78 y/o female with anemia. Hematology requests a bone marrow biopsy Relevant Family History (Specify if Yes): No Relevant Social History: None Present Medications: see Short Stay Collaborative assessment Medical History: Significant History History of Previous Operations: Relevant previous surgery/procedure and date(s) (prior bone marrow biopsies) Allergies: Allergies Allergy/AdvReac Type Severity Reaction Status Date / Time esomeprazole [From NEXIUM] Allergy Intermediate CHEST PAIN Verified 11/19/23 11:34 omeprazole [From PRILOSEC] Allergy Intermediate CHEST PAIN Verified 11/19/23 11:34 diphenhydramine Allergy Dizziness Verified 11/19/23 11:34 [From Benadryl] Review of Systems Sugical H&P ROS: Negative: Constitution, Cardiovascular and Respiratory Exam Surgical H&P Exam: Normal: Heart, Normal: Lungs, Normal: Skin and Normal: Neurological Plan 78 y/o female with anemia. Bone marrow biopsy Time Spent With Patient Time: Total time managing care of this patient today ____ minutes.
[2023-11-19 14:00] VITALS: BP 121/63; PULSE 62; RESP 18; TEMP 36.1; O2SAT 96
[2023-11-19 14:15] VITALS: BP 123/61; PULSE 65; RESP 16; O2SAT 97
[2023-11-19 14:15] LABS: Bone Marrow SEE SEPARATE REPORT
[2023-11-19 14:30] VITALS: BP 134/68; PULSE 64; RESP 18; O2SAT 98
[2023-11-19 14:45] VITALS: BP 141/51; PULSE 69; RESP 16; O2SAT 97
[2023-11-19 15:00] VITALS: BP 136/60; PULSE 73; RESP 16; TEMP 36.1; O2SAT 97
== END 2023-11-19 15:09 | disposition home or self-care (01) ==
PROVIDERS: Pathology Anatomic Pathology & Clinical Pathology; Radiology Vascular & Interventional Radiology; PCP Internal Medicine; Visit Provider Internal Medicine
PROC: (CPT 38221; principal; 2023-11-19 13:00)
DX: D64.9 Anemia, unspecified (principal)
CPT/HCPCS: 36415; 38222; 81455; 82947; 88184; 88185; 88237; 88264; 88305; 88311; 88313; 99152; J0665; J2250; J2310; J3010

== ENCOUNTER → 2023-11-19 12:08 | Outpatient (BNV) | payer MEDICARE, SELFPAY | PROVIDERS: PCP Internal Medicine; Visit Provider Radiology Vascular & Interventional Radiology | DX: D64.9 Anemia, unspecified (principal) | CPT/HCPCS: 38222; 77012; 99152 ==

== ENCOUNTER 2023-11-22 12:22 | Outpatient (REF) | payer MEDICARE, SELFPAY ==
[2023-11-22 13:00] LABS: MANUAL DIFF FLAG NO
[2023-11-22 13:03] LABS: Basophils Percent Auto 0.2 % (0-2); Eosinophils Absolute Auto 0.1 X10*3/uL (0.0-0.4); Eosinophils Percent Auto 1.1 % (0-4); Hematocrit 21.5 % (37.0-47.0); Hemoglobin 7.4 g/dl (12.0-16.0); Imm Gran Abs Auto 0.04 X10*3/uL (0.00-0.03); Imm Gran Pct Auto 0.4 % (0.0-0.4); Lymphocytes Absolute Auto 0.9 X10*3/uL (1.2-4.9); Mean Corpuscular HGB Conc 34.4 g/dl (31.0-35.0); Mean Corpuscular Hemoglobin 36.5 pg (27.0-33.0); Mean Corpuscular Volume 105.9 fL (80.0-98.0); Monocytes Absolute Auto 1.3 X10*3/uL (0.1-1.2); Monocytes Percent Auto 12.5 % (2-11); Neutrophils Percent Auto 76.8 % (45-73); Platelet Count 162 X10*3/uL (160-400); Red Blood Count 2.03 X10*6/uL (4.20-5.50); Red Cell Distribution Width 14.7 % (11.0-16.0); White Blood Count 10.4 X10*3/uL (4.8-10.8)
[2023-11-22 13:17] LABS: Alanine Aminotransferase 53 U/L (0-31); Alkaline Phosphatase 62 U/L (39-117); Anion Gap 13 (12-20); Aspartate Amino Transferase 29 U/L (5-31); Blood Urea Nitrogen 29 mg/dL (9-16); Calcium 9.6 mg/dL (8.4-10.2); Carbon Dioxide 27 mmol/L (22-29); Chloride 106 mmol/L (96-108); Estimated Glomerular Filt Rate 31; Glucose Random 133 mg/dL (60-115); Potassium 3.7 mmol/L (3.3-5.1); Sodium 142 mmol/L (135-145); Total Protein 7.2 g/dL (6.5-8.0)
== END 2023-11-22 12:23 | disposition home or self-care (01) ==
LOC: HO.LAB 12:22
PROVIDERS: PCP Internal Medicine; Visit Provider Internal Medicine
DX: C50.911 Malignant neoplasm of unspecified site of right female breast (principal)
CPT/HCPCS: 36415; 80053; 85025

== ENCOUNTER 2023-12-13 09:42 | Inpatient (IN) | payer MEDICARE, SELFPAY ==
--- NOTE | ~2023-12-13 | XR_ITS ---
EXAMINATION: XR CHEST CLINICAL INFORMATION: Shortness of breath COMPARISON: None available. TECHNIQUE: PA and lateral views of the chest were obtained. FINDINGS: No significant abnormality is noted involving the heart, lungs, mediastinum, bony thorax or soft tissues. FINDINGS: HEART & VASCULARITY: There are mild cardiomegaly and normal pulmonary vascularity. LUNGS: Horizontal linear atelectasis is seen in the right lower lobe just beneath the right minor fissure. Patchy and hazy infiltrates are seen in bilateral lower lobes with peribronchial distribution, most prominent in bilateral posterior basal segments. No pneumothorax is seen. BONES: Bony skeleton is intact. XR/XR chest 2V IMPRESSION: 1. Interval development of Bilateral lower lobe infiltrates, compatible with pneumonia. 2. Unchanged Mild cardiomegaly without radiographic signs of congestive heart failure. Electronically signed by: Ilene Buchanan MD 12/13/2023 12:09 PM EDT
--- NOTE | ~2023-12-13 | CT_ITS ---
EXAMINATION: CT ANGIOGRAM OF THE CHEST WITH AND WITHOUT CONTRAST (CT PULMONARY ANGIOGRAM FOR PE) CLINICAL INFORMATION: SOB, hx breast CA, PEs COMPARISON: None available. TECHNIQUE: Prior to contrast administration, noncontrast localization images were obtained. Subsequently, multidetector volumetric imaging was performed from the thoracic inlet to below the diaphragms following the administration of 65 mL Omnipaque 350 intravenous contrast. No contrast reaction reported Sagittal, coronal, and MIP oblique sagittal reformatted images were obtained on the CT workstation, uploaded to PACS, and reviewed. This CT examination was performed using dose optimization techniques as appropriate, variously including the following: *Automated exposure control *Adjustment of mA and/or kV according to patient size (this includes techniques or standardized protocols for targeted exams where dose is matched to indication/reason for exam; i.e. extremities or head) *Use of iterative reconstruction technique Total exam dose-length product 238 mGy-cm FINDINGS: QUALITY OF STUDY/CONTRAST BOLUS: Satisfactory. PULMONARY ARTERIES: No pulmonary emboli. THORACIC AORTA: No aneurysm. Scattered atherosclerotic wall calcifications are present. LUNG: No focal consolidation, nodules or masses. PLEURA: Trace bilateral pleural effusions MEDIASTINUM: Heart is mildly enlarged with dilation of the left atrium and left ventricle. No pericardial effusion. No hilar or mediastinal lymphadenopathy. No evidence of septal bowing or right heart strain. CORONARY ARTERY CALCIFICATION: Moderate CHEST WALL/AXILLA: No axillary or internal mammary lymphadenopathy. OSSEOUS STRUCTURES: No acute or suspicious osseous abnormality. UPPER ABDOMEN: Unremarkable. No reflux of contrast into the hepatic veins to suggest elevated right heart pressures. CT/CT angio chest PE protocol IMPRESSION: 1. No evidence of pulmonary embolism. 2. Trace bilateral pleural effusions. 3. Mild cardiomegaly with dilation of the left atrium and left ventricle. VTE: negative. Electronically signed by: Luis Foster MD 12/13/2023 04:05 PM EDT
[2023-12-13 09:52] VITALS: BP 157/94; PULSE 82; RESP 20; TEMP 36.6; O2SAT 96; BMI 24.0
[2023-12-13 10:07] LABS: MANUAL DIFF FLAG NO
[2023-12-13 10:09] LABS: Basophils Percent Auto 0.3 % (0-2); Eosinophils Absolute Auto 0.1 X10*3/uL (0.0-0.4); Eosinophils Percent Auto 1.5 % (0-4); Hematocrit 28.6 % (37.0-47.0); Hemoglobin 9.9 g/dl (12.0-16.0); Imm Gran Abs Auto 0.03 X10*3/uL (0.00-0.03); Imm Gran Pct Auto 0.3 % (0.0-0.4); Lymphocytes Absolute Auto 0.8 X10*3/uL (1.2-4.9); Lymphocytes Percent Auto 8.6 % (20-40); Mean Corpuscular HGB Conc 34.6 g/dl (31.0-35.0); Mean Corpuscular Hemoglobin 35.5 pg (27.0-33.0); Mean Corpuscular Volume 102.5 fL (80.0-98.0); Mean Platelet Volume 8.8 fL (9.4-12.3); Monocytes Absolute Auto 1.1 X10*3/uL (0.1-1.2); Monocytes Percent Auto 11.8 % (2-11); Neutrophils Percent Auto 77.5 % (45-73); Platelet Count 150 X10*3/uL (160-400); Red Blood Count 2.79 X10*6/uL (4.20-5.50); Red Cell Distribution Width 15.1 % (11.0-16.0); White Blood Count 9.1 X10*3/uL (4.8-10.8)
[2023-12-13 10:24] LABS: Alanine Aminotransferase 40 U/L (0-31); Albumin Level 4.2 g/dL (3.5-5.0); Alkaline Phosphatase 66 U/L (39-117); Anion Gap 15 (12-20); Aspartate Amino Transferase 18 U/L (5-31); Bilirubin Total 1.8 mg/dL (0.0-1.0); Blood Urea Nitrogen 21 mg/dL (9-16); Calcium 9.6 mg/dL (8.4-10.2); Carbon Dioxide 28 mmol/L (22-29); Chloride 106 mmol/L (96-108); Creatinine Clr Calc Pharmacy 24.3; Estimated Glomerular Filt Rate 32; Glucose Random 134 mg/dL (60-115); Potassium 3.8 mmol/L (3.3-5.1); Sodium 145 mmol/L (135-145); Total Protein 7.5 g/dL (6.5-8.0)
[2023-12-13 12:20] LABS: Influenza A PCR NEGATIVE (Negative); Influenza B PCR NEGATIVE (Negative); Resp Syncy Virus RNA Qual PCR NEGATIVE (Negative); SARS COV2 PCR INHOUSE NEGATIVE (Negative)
--- NOTE | 2023-12-13 12:40 | ECG_ITS ---
Test Reason : SOB Blood Pressure : / mmHG Vent. Rate : 085 BPM Atrial Rate : 085 BPM P-R Int : 170 ms QRS Dur : 096 ms QT Int : 404 ms P-R-T Axes : -03 -15 066 degrees QTc Int : 480 ms Normal sinus rhythm Nonspecific ST and T wave abnormality Abnormal ECG When compared with ECG of 22-SEP-2023 15:59, No significant change was found Referred By: Beth Hackett Electronically Signed By:NIRALI MO
--- NOTE | 2023-12-13 12:48 | ED_ITS ---
HPI - SOB/Dyspnea General Chief Complaint: Dyspnea Stated Complaint: diff breathing sent in by Dr Hill Time Seen by Provider: 12/13/23 12:26 Source: patient Mode of arrival: ambulatory Limitations: no limitations History of Present Illness ED Provider: Dr. Beth Hackett HPI Narrative: patient comes to the emergency room complaining of shortness of breath for 3 days. Patient states that 3 days ago, she received on Epogen injection, yesterday she received a blood transfusion for her chronic anemia/hereditary spherocytosis. Patient states that for the last few days, she has been feeling very weak and short of breath. Patient denies any chest pain. Denies coughing, no fever chills to her knowledge. Related Data Home Medications ?Medication ?Instructions ?Recorded ?Confirmed aspirin 81 mg tablet,delayed 81 mg PO DAILY 02/29/20 11/19/23 release cholecalciferol (vitamin D3) 50 50 mcg PO DAILY 02/29/20 11/19/23 mcg (2,000 unit) tablet (Vitamin D3) cyanocobalamin (vitamin B-12) 5,000 mcg PO BEDTIME 02/29/20 11/19/23 5,000 mcg disintegrating tablet folic acid 1 mg tablet 1 mg PO DAILY 02/29/20 11/19/23 levothyroxine 100 mcg tablet 100 mcg PO MOTUTHFRSA 02/29/20 11/19/23 vitamin E 400 unit tablet 450 mg PO DAILY 02/29/20 11/19/23 allopurinol 300 mg tablet 300 mg PO DAILY 09/29/20 11/19/23 carvedilol 6.25 mg tablet 6.25 mg PO BID 09/29/20 11/19/23 furosemide 20 mg tablet 20 mg PO DAILY 09/29/20 11/19/23 rosuvastatin 20 mg tablet 20 mg PO BEDTIME 09/29/20 11/19/23 gabapentin 100 mg capsule 100 mg PO BEDTIME 05/23/22 11/19/23 cranberry 500 mg capsule 500 mg PO DAILY 11/20/22 11/19/23 d-mannose 500 mg capsule (AZO 500 mg PO DAILY 11/20/22 11/19/23 D-Mannose) ascorbic acid (vitamin C) 500 mg 500 mg PO DAILY 09/23/23 11/19/23 tablet (Vitamin C) calcium carbonate (Calcium 600) 600 mg PO 3XW 09/23/23 11/19/23 clopidogrel 75 mg tablet 75 mg PO DAILY 09/23/23 11/19/23 metformin 500 mg tablet,extended 1,000 mg PO DAILY 09/23/23 11/19/23 release 24 hr exemestane 25 mg tablet 25 mg PO DAILY 10/03/23 11/19/23 Allergies Allergy/AdvReac Type Severity Reaction Status Date / Time esomeprazole [From NEXIUM] Allergy Intermediate CHEST PAIN Verified 12/13/23 09:52 omeprazole [From PRILOSEC] Allergy Intermediate CHEST PAIN Verified 12/13/23 09:52 diphenhydramine Allergy Dizziness Verified 12/13/23 09:52 [From Benadryl] Review of Systems 2 Review of Systems: Constitutional : No Weight loss, No Fever, No Chills, No Night Sweats, No Fatigue, No Malaise ENT/Mouth : No Hearing loss, No Ear Pain, No Nasal Congestion, No Sinus Pain, No Hoarseness, No sore throat, No Rhinorrhea, No Swallowing Difficulty Eyes: No Eye Pain, No Swelling, No Redness, No Foreign Body, No Discharge, No Vision Changes Cardiovascular : No Chest Pain, complaining of shortness of breath with exertion and at rest, no lower extremity edema Respiratory : Denies cough or wheezing, complaining of shortness of breath which gets much worse with exertion Gastrointestinal : No Nausea, No Vomiting, No Diarrhea, No Constipation, No abdominal Pain, No Hematochezia, No Melena Genitourinary : no irregular bleeding, No Dysuria, No Urinary Frequency, No Hematuria, No Urinary Incontinence, No Urgency, No Flank Pain, No Urinary Flow Changes, No Hesitancy Musculoskeletal : No joint pain, No Myalgias, No Joint Swelling Skin : No Skin Lesions, No rash Neuro : No Weakness, No Numbness, No Paresthesias, No Loss of Consciousness, No Dizziness, No Headache Psych : No Anxiety/Panic, No Depression, No SI/HI/AH/VH, No Social Issues, Heme/Lymph: No Bruising, No Bleeding,No Lymphadenopathy Endocrine : No Polyuria, No Polydipsia, No Temperature Intolerance REPLACED BY [facility] Past Medical History Medical History CAD (coronary artery disease) CHF (congestive heart failure) Cervix prolapsed into vagina History of blood transfusion (~02/01/23) Diabetes mellitus HFrEF (heart failure with reduced ejection fraction) Cardiomyopathy Normal colonoscopy Type 2 diabetes mellitus Diverticulosis Irritable bowel syndrome Pulmonary emboli GERD (gastroesophageal reflux disease) Nephrolithiasis Hypoparathyroidism Papillary thyroid carcinoma HTN (hypertension) Polymyalgia rheumatica Hyperglycemia Chronic anemia Anemia Surgical History Stented coronary artery Breast mass, right H/O endoscopy History of cholecystectomy H/O total thyroidectomy Family History Family History Sister CHF (congestive heart failure) Daughter Breast cancer Son Kidney stones Social History Social History Household Members: Children Household Members Other:: son Housing: House Do you presently have visiting nurse or other home services: No Alcohol intake: never Patient Tobacco Use Status: Former Tobacco user Years Smoked: 30 +/- Smoked in Last 30 Days: No Use of substances other than those prescribed or required for medical reasons: No Advance Directives: No Advance Directives Information Provided: Yes Do you have a plan to hurt others: No Plan service: No Current occupational status: retired Current occupation: Right Handed Physical Exam 2 Vital Signs: Vital Signs: Last Vital Signs Temp 98.3 F 12/13/23 14:38 Pulse 100 12/13/23 14:38 Resp 16 12/13/23 14:38 BP 136/90 H 12/13/23 14:38 Pulse Ox 94 12/13/23 14:38 O2 Del Method Nasal Cannula 12/13/23 14:38 O2 Flow Rate 2 12/13/23 14:38 BMI result Body Mass Index 24.0 Const: Other: Appearance: Alert. Oriented X3. No acute distress. Eyes: Pupils equal, round and reactive to light. ENT: Pharynx normal. Neck: Normal inspection. Neck supple. No lymph nodes noted. No crepitus CVS: Normal heart rate and rhythm. Pulses normal. Normal S1 and S2 Respiratory: No respiratory distress. Breath sounds normal. No Wheezing. No rales . On room air, with minimal exertion such as sitting up from bed, patient becomes significantly tachypneic, oxygen saturation drops to the high 70s low 80s. When patient sits back down, her oxygen quickly improves to the low 90s. Abdomen: Soft and nontender. No rigidity. No distention. Skin: Skin warm and dry. Normal skin color. Normal skin turgor. Extremities: No lower extremity edema. No Lacerations. No Rash Neuro: Oriented X 3. No motor deficit. No sensory deficit. Moving all extremities. No slurred speech. CN 2 through 12 grossly intact Psych: calm, cooperative, normal affect Course Course Course Narrative: - of patient's labs and imaging pending Medications Administered Discontinued Medications Generic Name Dose Route Start Last Admin Trade Name Eli PRN Reason Stop Dose Admin Sodium Chloride 1,000 mls @ 999 mls/hr 12/13/23 12:46 12/13/23 15:17 Ns IVCONT 12/13/23 13:46 Infused .Q1H1M ONE Infusion Ceftriaxone Sodium 1 gm/ 50 mls @ 100 mls/hr 12/13/23 12:46 12/13/23 14:36 Sodium Chloride IV 12/13/23 13:15 Infused ONCE ONE Infusion Azithromycin 500 mg/ Sodium 250 mls @ 125 mls/hr 12/13/23 12:46 12/13/23 14:07 Chloride IV 12/13/23 14:45 125 mls/hr ONCE ONE Administration Iohexol 100 ml 12/13/23 13:51 12/13/23 13:51 Iohexol 350 Mg/Ml 100 Ml Infus..Btl IV 12/13/23 13:52 65 ml ONCE ONE Administration Medical Decision Making Medical Decision Making MDM Narrative: - physical exam, it was noted that the when patient sits up, patient's oxygen saturation significantly drops with minimal exertion to the high 70s. Patient is now on 2 L nasal cannula, saturating 94%. Patient states that with the nasal cannula she breathe more comfortably. Patient is not oxygen dependent. - My interpretation of x-rays, questionable bilateral lower infiltrates. Per Radiology report, bilateral lower lobe pneumonia - my interpretation of labs: Patient's white blood cell count 9.1, creatinine 1.58 which is at baseline for the patient. Serology for COVID, RSV and influenza negative. - patient had a blood transfusion yesterday. Patient's oxygen saturation does drop quite a bit. However, on chest x-ray there is no evidence of pulmonary edema. Patient does not have fever. At this time, PE and pneumonia suspected - CHF less likely, TRALI not suspected - Lactic acid pending, no episodes of hypotension, no fever, sepsis is not suspected - some of patient's labs and imaging pending. I discussed with the patient that once the workup is completed, she will need to be admitted. Patient agrees with plan my interpretation of CTA: No obvious pulmonary embolism, No signs of pneumonia - I discussed the patient with Dr. Espana, patient being admitted - I discussed the patient with Dr. Espana, patient being admitted by the hospitalist service Differential Diagnosis Differential Diagnoses: The differential diagnosis associated with the presentation includes ( as above) Admission/Observation Consideration of admission/observation: Escalation of care including admission/observation considered Consult Healthcare Provider Management of the patient was discussed with: Hospitalist Lab Data MDM Lab Attestation statement: I reviewed the patient's lab results. 12/13/23 10:02 12/13/23 10:02 Labs: Lab Results 12/13/23 12/13/23 12/13/23 Range/Units 10:02 13:09 13:15 WBC 9.1 (4.8-10.8) X10*3/uL RBC 2.79 L D (4.20-5.50) X10*6/uL Hgb 9.9 L D (12.0-16.0) g/dl Hct 28.6 L D (37.0-47.0) % MCV 102.5 H D (80.0-98.0) fL MCH 35.5 H (27.0-33.0) pg MCHC 34.6 (31.0-35.0) g/dl RDW 15.1 (11.0-16.0) % Plt Count 150 L (160-400) X10*3/uL MPV 8.8 L (9.4-12.3) fL Immature Gran % (Auto) 0.3 (0.0-0.4) % Neut % (Auto) 77.5 H (45-73) % Lymph % (Auto) 8.6 L (20-40) % Gulf % (Auto) 11.8 H (2-11) % Eos % (Auto) 1.5 (0-4) % Baso % (Auto) 0.3 (0-2) % Lymph # (Auto) 0.8 L (1.2-4.9) X10*3/uL Gulf # (Auto) 1.1 (0.1-1.2) X10*3/uL Eos # (Auto) 0.1 (0.0-0.4) X10*3/uL Baso # (Auto) 0.0 (0.0-0.2) X10*3/uL Abs Immat Gran (auto) 0.03 (0.00-0.03) X10*3/uL Absolute Neuts (auto) 7.0 (2.0-8.3) x10*3/uL Absolute Nucleated RBC 0.000 (0.0-0.012) X10*3/uL Nucleated RBC % (auto) 0.0 (0.0-0.2) /100WBC PT 12.8 (11.1-13.3) SEC INR 1.1 (0.9-1.1) APTT 30.0 (26.0-36.8) SEC VBG pH 7.48 H (7.32-7.43) VBG pCO2 35 mmHg VBG pO2 94 mmHg VBG HCO3 26 (22-26) mmol/L VBG O2 Saturation 99.0 % VBG Base Excess 3.2 mmol/L Sodium 145 (135-145) mmol/L Potassium 3.8 (3.3-5.1) mmol/L Chloride 106 (96-108) mmol/L Carbon Dioxide 28 (22-29) mmol/L Anion Gap 15 (12-20) BUN 21 H (9-16) mg/dL Creatinine 1.58 H (0.5-1.4) mg/dL Estim Creat Clear Calc 24.3 Estimated GFR 32 Random Glucose 134 H (60-115) mg/dL Lactic Acid 1.6 (0.5-2.0) mmol/L Calcium 9.6 (8.4-10.2) mg/dL Total Bilirubin 1.8 H (0.0-1.0) mg/dL AST 18 (5-31) U/L ALT 40 H (0-31) U/L Alkaline Phosphatase 66 (39-117) U/L Troponin I High Sens 32.7 H D (<3.5-17.0) ng/L Total Protein 7.5 (6.5-8.0) g/dL Albumin 4.2 (3.5-5.0) g/dL Influenza Type A (PCR) NEGATIVE (Negative) Influenza Type B (PCR) NEGATIVE (Negative) RSV RNA Qual (PCR) NEGATIVE (Negative) SARS-CoV-2 RNA (RT-PCR) NEGATIVE (Negative) Independent Interpretation I performed an independent interpretation of an: Plain X-Ray and CT Scan Radiology Impression Discussion of test interpretation with radiology: I have reviewed the radiologist's reading. Radiologist Impression: 1. Interval development of Bilateral lower lobe infiltrates, compatible with pneumonia. 2. Unchanged Mild cardiomegaly without radiographic signs of congestive heart failure. FINDINGS: QUALITY OF STUDY/CONTRAST BOLUS: Satisfactory. PULMONARY ARTERIES: No pulmonary emboli. THORACIC AORTA: No aneurysm. Scattered atherosclerotic wall calcifications are present. LUNG: No focal consolidation, nodules or masses. PLEURA: Trace bilateral pleural effusions MEDIASTINUM: Heart is mildly enlarged with dilation of the left atrium and left ventricle. No pericardial effusion. No hilar or mediastinal lymphadenopathy. No evidence of septal bowing or right heart strain. CORONARY ARTERY CALCIFICATION: Moderate CHEST WALL/AXILLA: No axillary or internal mammary lymphadenopathy. OSSEOUS STRUCTURES: No acute or suspicious osseous abnormality. UPPER ABDOMEN: Unremarkable. No reflux of contrast into the hepatic veins to suggest elevated right heart pressures. CT/CT angio chest PE protocol IMPRESSION: 1. No evidence of pulmonary embolism. 2. Trace bilateral pleural effusions. 3. Mild cardiomegaly with dilation of the left atrium and left ventricle. VTE: negative. Critical Care Time Critical Care Time Critical Care Time: Yes Total Critical Care Time: 75 Attestation: I have personally provided critical care time. Time includes review of lab data, radiology results, discussion with consultants, and monitoring for potential decompensation. Intervention performed as documented. Discharge Plan Discharge Clinical Impression: Pneumonia Patient Disposition: Admitted As Inpatient Prescriptions: No Action aspirin 81 mg Tablet,Delayed Release (Dr/Ec) 81 mg PO DAILY levothyroxine 100 mcg tablet [facility] Instructions: skips sundays and wednesdays vitamin E 400 unit Tablet 450 mg PO DAILY folic acid 1 mg Tablet 1 mg PO DAILY cholecalciferol (vitamin D3) [Vitamin D3] 50 mcg (2,000 unit) Tablet 50 mcg PO DAILY cyanocobalamin (vitamin B-12) 5,000 mcg Tablet,Disintegrating 5,000 mcg PO BEDTIME carvedilol 6.25 mg tablet 6.25 mg PO BID rosuvastatin 20 mg tablet 20 mg PO BEDTIME allopurinol 300 mg tablet 300 mg PO DAILY furosemide 20 mg tablet 20 mg PO DAILY gabapentin 100 mg capsule 100 mg PO BEDTIME clopidogrel 75 mg tablet 75 mg PO DAILY calcium carbonate [Calcium 600] 600 mg calcium (1,500 mg) Tablet 600 mg PO 3XW ascorbic acid (vitamin C) [Vitamin C] 500 mg Tablet 500 mg PO DAILY metformin 500 mg tablet extended release 24 hr 1,000 mg PO DAILY AZO D-Mannose 500 mg capsule 500 mg PO DAILY cranberry 500 mg capsule 500 mg PO DAILY Rx Instructions: administer with meals exemestane 25 mg tablet 25 mg PO DAILY Rx Instructions: must administer after a meal Print Language: Uzbek
[2023-12-13 13:22] LABS: VBG Base Excess 3.2 mmol/L; VBG HCO3 26 mmol/L (22-26); VBG pCO2 35 mmHg; VBG pH 7.48 (7.32-7.43); VBG pO2 94 mmHg
[2023-12-13 13:26] LABS: INTERNATIONAL NORM RATIO 1.1 (0.9-1.1); Prothrombin Time 12.8 SEC (11.1-13.3)
[2023-12-13 13:29] LABS: Lactic Acid 1.6 mmol/L (0.5-2.0)
[2023-12-13 13:40] LABS: Troponin-I High Sensitivity 32.7 ng/L (<3.5-17.0)
[2023-12-13] MEDS: iohexoL 350 MG/ML 100 ML INFUS..BTL IV (13:51)
[2023-12-13] MEDS: 0.9 % Sodium Chloride 1,000 ML 999 ML IVCONT (14:06)
[2023-12-13] MEDS: cefTRIAXone sodium 1 GM in 0.9 % Sodium Chloride 50 ML IV (14:07)
[2023-12-13] MEDS: Azithromycin 500 MG in 0.9 % Sodium Chloride 250 ML 125 MG IV (14:07)
[2023-12-13 14:21] LABS: Venous Blood Gas Refer to POC result
[2023-12-13 14:38] VITALS: BP 136/90; PULSE 100; RESP 16; TEMP 36.8; O2SAT 94
--- NOTE | 2023-12-13 17:11 | PHA.MEDREC ---
Addendum entered by Elvira Sandoval RPh 12/13/23 17:17: Reviewed by [facility] Original Note: Pharmacy Consult ? Medication Reconciliation Pharmacy has completed the medication reconciliation. Confirmed medications with patient. Patient confirmed her Levothyroxine 100mcg tab MOTUTHFRSA and she said she took it this morning 12/13/23. Patient also confirmed her Clopidogrel 75mg tab and she stated she takes it once daily and she took that along with the rest of her medications yesterday 12/12/23.
[2023-12-13 18:10] VITALS: BP 153/92; PULSE 102; RESP 16; TEMP 36.8; O2SAT 92
--- NOTE | 2023-12-13 20:08 | P.HPHOSP_ITS ---
History of Present Illness Date of Service: 12/13/23 Attending physician on admission: Andrés Beyer Chief Complaint: SOB Pt is a 78-year-old female with a PMH significant for?HFrEF (LV 40% on 10/22/23),?HTN, HLD, chronic macrocytic anemia (diagnosed at 21 years of age), right breast cancer s/p lumpectomy, seo-wvmoeiq-aaqjgskdd diabetes type 2, CKD 3, and gout who presents to the ED with?shortness of breath x3 days. Patient reports she received her 1st Epogen infection on Saturday of this week and since then has felt pain throughout her body. Reports her bones and muscles have been in ?excruciating pain. Also was transfused yesterday for chronic macrocytic anemia. Patient reports that for the past 3 days has been experiencing increased shortness of breath and dyspnea upon exertion. Denies fever, chills. No cough. This morning when she woke she could barely breathe and not get out of bed, which prompted her visit to the ED. is not on home O2 and reports she normally ambulates without assistance, though occasionally will use a cane. No chest pain/pressure. Denies nausea, vomiting, abdominal pain. No change to bowel or bladder habits. In the ED pt was tachycardic up to 102, hypertensive up to 153/92, and desatting into the 80s on RA, currently satting at 92% on 3L NC. Labs were significant for stable macrocytic anemia of 9.9/28.6 (around baseline), BUN 21, creatinine 1.58 (around baseline), bilirubin 1.8, ALT 40, and initial troponin 32.7. Tested negative for flu, RSV, COVID. CXR showed interval development of bilateral lower lobe infiltrates suggestive of pneumonia. Also showed unchanged mild cardiomegaly without radiographic signs of CHF. CTA of chest found no evidence of pulmonary embolism, but showed trace bilateral pleural effusions with mild cardiomegaly and dilation of left atrium and left ventricle. ?Did not find any focal consolidations within the lungs. EKG demonstrated normal sinus rhythm with nonspecific ST and T-wave abnormality. Pt was treated with IVF, ceftriaxone, and azithromycin. Pt will be admitted to the hospital for treatment and further evaluation of acute hypoxic respiratory failure in the setting of CHF exacerbation. Review of Systems 2 Review of Systems: Shortness of breath, WIGGINS Denies cough No fever, chills Denies chest pain/pressure, palpitations No abdominal pain [facility] Medical History CAD (coronary artery disease) CHF (congestive heart failure) Cervix prolapsed into vagina History of blood transfusion (~02/01/23) Diabetes mellitus HFrEF (heart failure with reduced ejection fraction) Cardiomyopathy Normal colonoscopy Type 2 diabetes mellitus Diverticulosis Irritable bowel syndrome Pulmonary emboli GERD (gastroesophageal reflux disease) Nephrolithiasis Hypoparathyroidism Papillary thyroid carcinoma HTN (hypertension) Polymyalgia rheumatica Hyperglycemia Chronic anemia Anemia Family History Sister CHF (congestive heart failure) Daughter Breast cancer Son Kidney stones Surgical History Stented coronary artery Breast mass, right H/O endoscopy History of cholecystectomy H/O total thyroidectomy Social History Household Members: Children Household Members Other:: son Housing: House Do you presently have visiting nurse or other home services: No Alcohol intake: never Patient Tobacco Use Status: Former Tobacco user Years Smoked: 30 +/- Smoked in Last 30 Days: No Use of substances other than those prescribed or required for medical reasons: No Advance Directives: No Advance Directives Information Provided: Yes Do you have a plan to hurt others: No Plan service: No Current occupational status: retired 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 Allergies Allergy/AdvReac Type Severity Reaction Status Date / Time esomeprazole [From NEXIUM] Allergy Intermediate CHEST PAIN Verified 12/13/23 09:52 omeprazole [From PRILOSEC] Allergy Intermediate CHEST PAIN Verified 12/13/23 09:52 diphenhydramine Allergy Dizziness Verified 12/13/23 09:52 [From Benadryl] Active Medications: Current Medications Acetaminophen (Acetaminophen 325 Mg Tablet) 650 mg PO Q6H PRN PRN Reason: Pain, Mild (Pain Scale 1-3), fever or headache Calcium Carbonate (Calcium Carbonate 750 Mg Tab.Chew) 750 mg PO Q4H PRN PRN Reason: Heartburn Enoxaparin Sodium (Enoxaparin Sodium 30 Mg/0.3 Ml Syringe) 30 mg SUBCUT Q24H [facility] Glucose (Glucose Gel 15 Gm Gel..Gram.) 15 gm PO Q15M PRN; Protocol PRN Reason: per Hypoglycemia Standing Ord. Dextrose (D10) 250 mls @ 750 mls/hr IV Q15M PRN; Protocol PRN Reason: per Hypoglycemia Standing Ord. Insulin Human Lispro (Insulin Lispro 100 Unit/Ml 3 Ml Vial) 0 unit SUBCUT QIDACHS [facility]; Protocol Magnesium Hydroxide (Milk Of Magnesia 30 Ml Oral.Susp) 30 ml PO DAILY PRN PRN Reason: Constipation Melatonin (Melatonin 3 Mg Tablet) 6 mg PO BEDTIME PRN PRN Reason: Insomnia Ondansetron HCl (Ondansetron Hcl 4 Mg/2 Ml Vial) 4 mg IVPUSH Q8H PRN PRN Reason: Nausea and Vomiting Sodium Chloride (0.9 % Sodium Chloride Flush 3 Ml Syringe) [facility] Medications ?Medication ?Instructions ?Recorded ?Confirmed ?Last Taken ?Type aspirin 81 mg tablet,delayed 81 mg PO DAILY 02/29/20 12/13/23 12/12/23 History release cholecalciferol (vitamin D3) 50 50 mcg PO DAILY 02/29/20 12/13/23 12/12/23 History mcg (2,000 unit) tablet (Vitamin D3) cyanocobalamin (vitamin B-12) 5,000 mcg PO DAILY 02/29/20 12/13/23 12/12/23 History 5,000 mcg disintegrating tablet folic acid 1 mg tablet 1 mg PO DAILY 02/29/20 12/13/23 12/12/23 History levothyroxine 100 mcg tablet 100 mcg PO MOTUTHFRSA@0600 02/29/20 12/13/23 12/13/23 History vitamin E 400 unit tablet 450 mg PO DAILY 02/29/20 12/13/23 12/12/23 History allopurinol 300 mg tablet 300 mg PO DAILY 09/29/20 12/13/23 12/12/23 History carvedilol 6.25 mg tablet 6.25 mg PO BID 09/29/20 12/13/23 12/12/23 History furosemide 20 mg tablet 20 mg PO DAILY 09/29/20 12/13/23 12/12/23 History rosuvastatin 20 mg tablet 20 mg PO DAILY 0612/13/23 12/12/23 History gabapentin 100 mg capsule 100 mg PO DAILY 05/23/22 12/13/23 12/12/23 History cranberry 500 mg capsule 500 mg PO DAILY 11/20/22 12/13/23 12/12/23 History d-mannose 500 mg capsule (AZO 500 mg PO DAILY 11/20/22 12/13/23 12/12/23 History D-Mannose) ascorbic acid (vitamin C) 500 mg 500 mg PO DAILY 09/23/23 12/13/23 12/12/23 History tablet (Vitamin C) calcium carbonate (Calcium 600) 600 mg PO DAILY 09/23/23 12/13/23 12/12/23 History clopidogrel 75 mg tablet 75 mg PO DAILY 09/23/23 12/13/23 12/12/23 History metformin 500 mg tablet,extended 1,000 mg PO DAILY 09/23/23 12/13/23 12/12/23 History release 24 hr exemestane 25 mg tablet 25 mg PO DAILY 10/03/23 12/13/23 12/12/23 History Physical Exam 2 Vital Signs and Narrative: Vital Signs: Last Vital Signs Temp 98.3 F 12/13/23 18:10 Pulse 102 H 12/13/23 18:10 Resp 16 12/13/23 18:10 BP 153/92 H 12/13/23 18:10 Pulse Ox 92 12/13/23 18:10 O2 Del Method Nasal Cannula 12/13/23 18:10 O2 Flow Rate 3 12/13/23 18:10 BMI result Body Mass Index 24.0 General: AOx4, no acute distress Resp: CTA bilaterally. No wheezes, rales, or rhonchi. CVS: S1, S2, regular rhythm, tachycardic GI: +BS, NT, no distention Skin: Warm, dry Neuro: Cranial nerves II-XII grossly intact bilaterally. Motor grossly intact bilaterally Extremities: No edema Psych: Appropriate affect Results Labs 12/13/23 10:02 12/13/23 10:02 Labs: Laboratory Results - last 24 hr 12/13/23 12/13/23 12/13/23 10:02 13:09 13:15 MCV 102.5 H D MCH 35.5 H MCHC 34.6 RDW 15.1 Plt Count 150 L MPV 8.8 L Immature Gran % (Auto) 0.3 Neut % (Auto) 77.5 H Lymph % (Auto) 8.6 L [place] % (Auto) 11.8 H Eos % (Auto) 1.5 Baso % (Auto) 0.3 Lymph # (Auto) 0.8 L [place] # (Auto) 1.1 Eos # (Auto) 0.1 Baso # (Auto) 0.0 Abs Immat Gran (auto) 0.03 Absolute Neuts (auto) 7.0 Absolute Nucleated RBC 0.000 Nucleated RBC % (auto) 0.0 PT 12.8 INR 1.1 APTT 30.0 VBG pH 7.48 H VBG pCO2 35 VBG pO2 94 VBG HCO3 26 VBG O2 Saturation 99.0 VBG Base Excess 3.2 Anion Gap 15 Estim Creat Clear Calc 24.3 Estimated GFR 32 Random Glucose 134 H Lactic Acid 1.6 Calcium 9.6 Total Bilirubin 1.8 H AST 18 ALT 40 H Alkaline Phosphatase 66 Troponin I High Sens 32.7 H D Total Protein 7.5 Albumin 4.2 Influenza Type A (PCR) NEGATIVE Influenza Type B (PCR) NEGATIVE RSV RNA Qual (PCR) NEGATIVE SARS-CoV-2 RNA (RT-PCR) NEGATIVE Imaging Radiologist's Impressions: Impressions Chest X-Ray 12/13/23 10:00 IMPRESSION: 1. Interval development of Bilateral lower lobe infiltrates, compatible with pneumonia. 2. Unchanged Mild cardiomegaly without radiographic signs of congestive heart failure. Electronically signed by: Ilene Buchanan MD 12/13/2023 12:09 PM EDT RP Chest CTA 12/13/23 12:45 IMPRESSION: 1. No evidence of pulmonary embolism. 2. Trace bilateral pleural effusions. 3. Mild cardiomegaly with dilation of the left atrium and left ventricle. VTE: negative. Electronically signed by: Luis Foster MD 12/13/2023 04:05 PM EDT RP Assessment and Plan (1) Acute exacerbation of CHF (congestive heart failure): Status: Acute Plan Pt is a 78-year-old female with a PMH significant for?HFrEF (LV 40% on 10/22/23),?HTN, HLD, chronic macrocytic anemia (diagnosed at 21 years of age), right breast cancer s/p lumpectomy, yow-zxnsivr-zxckepjny diabetes type 2, CKD 3, and gout who presents to the ED with?shortness of breath x3 days. Pt will be admitted to the hospital for treatment and further evaluation of acute hypoxic respiratory failure in the setting of CHF exacerbation. Acute hypoxic respiratory failure in the setting of acute HFrEF decompensation Patient with increased SOB, CTA showing bilateral pleural effusions No fever, cough, CTA with out evidence of focal consolidations Patient desatting into the 80s on RA, not on home O2, currently satting at 92% on 3L NC Will give Lasix 40mg IV x1 dose, then 20mg IV daily Follow lytes, Mag, I/O Daily weights, Titrate supplemental O2 with goal of 90-92, wean as tolerated CAD Recent cardiac catheterization showed mid RCA 95% stenosis, proximal to mid circumflex has 70% stenosis without significant LAD disease s/p GREG mid RCA and medical tx for circumflex stenosis Continue aspirin, Brilinta Elevated troponin Initial troponin 32.7, decreased from 344.6 on 09/22/2023 Likely type 2 in the setting of increased demand Will check 2nd troponin HTN Continue carvedilol HLD Continue statin Hx of breast cancer Continue exemestane Htu-quakgch-ifvnqufwb type 2 diabetes Hold metformin Sliding-scale insulin Gout Continue allopurinol Hx of papillary thyroid cancer S/P surgery radioactive iodine therapy Continue levothyroxine GERD Continue PPI Full Code Attending:?Dr. Beyer DVT Prophylaxis: Lovenox Pt will require a hospitalization of at least two nights for treatment of?acute hypoxic respiratory failure in the setting of acute CHF exacerbation that will require IV diuresing, close monitoring of labs and cardiac function, and administration of supplemental oxygen. Quality Stroke Does the patient have a stroke diagnosis?: No VTE Prior VTE?: No VTE Risk Level:: Medical - moderate - high VTE Device Contraindication: Treatment Not Indicated VTE Drug Contraindication: N/A - Med Ordered
[2023-12-13 21:44] LABS: Glucose, Whole Blood 220 mg/dL (60-115)
[2023-12-13] MEDS: Enoxaparin Sodium 30 MG/0.3 ML SYRINGE SUBCUT (21:51)
[2023-12-13] MEDS: Insulin Lispro 100 UNIT/ML 3 ML VIAL SUBCUT (21:51)
[2023-12-13] MEDS: Furosemide 40 MG/4 ML VIAL IVPUSH (21:51)
[2023-12-13] MEDS: carvediloL 6.25 MG TABLET PO (21:51)
[2023-12-13 21:52] LABS: B Type Natriuretic Peptide 3549 pg/mL (<100)
--- NOTE | 2023-12-13 22:12 | MHC.EDTECH ---
Patti put in place for Pt. Call cuenca within reach.
[2023-12-14] VITALS (9 sets, daily range): BP systolic 127–155; BP diastolic 68–80; PULSE 73–92; RESP 16–18; TEMP 36.4–36.9; O2SAT 93–98; BMI 26.0
--- NOTE | 2023-12-14 00:11 | MHC.EDTECH ---
Pt purewick initially not suctioning, so Pt was found to be wet. Pt up to commode to urinate, and given mesh underwear and pad. Pt able to get herself back into bed. Suction properly functioning at this time, and new purewick placed. Pt vital signs taken, call cuenca within reach.
[2023-12-14 05:11] LABS: MANUAL DIFF FLAG NO
[2023-12-14 05:19] LABS: Basophils Percent Auto 0.4 % (0-2); Eosinophils Absolute Auto 0.1 X10*3/uL (0.0-0.4); Eosinophils Percent Auto 0.8 % (0-4); Hematocrit 23.9 % (37.0-47.0); Hemoglobin 7.9 g/dl (12.0-16.0); Imm Gran Abs Auto 0.04 X10*3/uL (0.00-0.03); Imm Gran Pct Auto 0.5 % (0.0-0.4); Lymphocytes Absolute Auto 0.8 X10*3/uL (1.2-4.9); Lymphocytes Percent Auto 9.7 % (20-40); Mean Corpuscular HGB Conc 33.1 g/dl (31.0-35.0); Mean Corpuscular Hemoglobin 34.5 pg (27.0-33.0); Mean Corpuscular Volume 104.4 fL (80.0-98.0); Mean Platelet Volume 9.8 fL (9.4-12.3); Monocytes Percent Auto 11.2 % (2-11); Neutrophils Absolute Auto 6.6 x10*3/uL (2.0-8.3); Neutrophils Percent Auto 77.4 % (45-73); Platelet Count 132 X10*3/uL (160-400); Red Blood Count 2.29 X10*6/uL (4.20-5.50); White Blood Count 8.5 X10*3/uL (4.8-10.8)
[2023-12-14 05:39] LABS: Anion Gap 15 (12-20); Blood Urea Nitrogen 22 mg/dL (9-16); Calcium 8.9 mg/dL (8.4-10.2); Carbon Dioxide 26 mmol/L (22-29); Chloride 107 mmol/L (96-108); Creatinine Clr Calc Pharmacy 25.6; Estimated Glomerular Filt Rate 34; Glucose Random 136 mg/dL (60-115); Potassium 3.7 mmol/L (3.3-5.1); Sodium 144 mmol/L (135-145)
[2023-12-14] MEDS: Levothyroxine Sodium 100 MCG TABLET PO (06:21)
[2023-12-14 08:13] LABS: Glucose, Whole Blood 125 mg/dL (60-115)
[2023-12-14] MEDS: 0.9 % Sodium Chloride Flush 3 ML SYRINGE IVFLUSH ×3 (08:17→20:56)
[2023-12-14] MEDS: Cyanocobalamin (Vitamin B-12) 1,000 MCG TABLET 5000 MCG PO (08:18)
[2023-12-14] MEDS: carvediloL 6.25 MG TABLET PO ×2 (08:20→20:53)
[2023-12-14] MEDS: Folic Acid 1 MG TABLET PO (08:20)
[2023-12-14] MEDS: Clopidogrel Bisulfate 75 MG TABLET PO (08:21)
[2023-12-14] MEDS: allopurinoL 300 MG TABLET PO (08:21)
[2023-12-14] MEDS: Ascorbic Acid 500 MG TABLET PO (08:22)
[2023-12-14] MEDS: Furosemide 20 MG/2 ML VIAL IVPUSH (08:23)
[2023-12-14] MEDS: Atorvastatin Calcium 80 MG TABLET PO (08:34)
--- NOTE | 2023-12-14 09:32 | PC.NURSE ---
Pt refused Gabapentin and Aspirin, she states she takes them at bedtime. This RN reached out to MD Torres about if ok to retime meds to bedtime.
[2023-12-14 12:02] LABS: Glucose, Whole Blood 131 mg/dL (60-115)
--- NOTE | 2023-12-14 14:08 | P.PNIM_ITS ---
Subjective Subjective Date of Service: 12/14/23 Interval History: dyspnea improving no chest pain Review of Systems Review of Systems: Yes all other systems are reviewed and are negative Physical Exam 2 Vital Signs: Vital Signs: Last Vital Signs Temp 98.0 F 12/14/23 12:39 Pulse 79 12/14/23 12:39 Resp 18 12/14/23 12:39 BP 138/72 12/14/23 12:39 Pulse Ox 93 12/14/23 12:39 O2 Del Method Nasal Cannula 12/14/23 12:39 O2 Flow Rate 2 12/14/23 12:39 BMI result Body Mass Index 26.0 Gen: in no acute distress HEENT: sclera anicteric, moist mucus membranes Neck: supple, JVD present Lungs: diminished bilaterally Heart: regular rate and rhythm, no murmurs Abd: soft, non-tender, non-distended Ext: no edema Skin: warm/well-perfused Neuro: alert and oriented x3, no focal findings Psych: appropriate affect Objective Data Active Medications Acetaminophen (Acetaminophen 325 Mg Tablet) 650 mg PO Q6H PRN PRN Reason: Pain, Mild (Pain Scale 1-3), fever or headache Allopurinol (Allopurinol 300 Mg Tablet) 300 mg PO DAILY [facility] Last Admin: 12/14/23 08:21 Dose: 300 mg Documented By: GABRIEL Ascorbic Acid (Ascorbic Acid 500 Mg Tablet) 500 mg PO DAILY [facility] Last Admin: 12/14/23 08:22 Dose: 500 mg Documented By: GABRIEL Aspirin (Aspirin Enteric Coated 81 Mg Tablet.) 81 mg PO BEDTIME [facility] Atorvastatin Calcium (Atorvastatin Calcium 80 Mg Tablet) 80 mg PO DAILY [facility] Last Admin: 12/14/23 08:34 Dose: 80 mg Documented By: GABRIEL Calcium Carbonate (Calcium Carbonate 750 Mg Tab.Chew) 750 mg PO Q4H PRN PRN Reason: Heartburn Carvedilol (Carvedilol 6.25 Mg Tablet) 6.25 mg PO BID [facility]; Protocol Last Admin: 12/14/23 08:20 Dose: 6.25 mg Documented By: GABRIEL Clopidogrel Bisulfate (Clopidogrel Bisulfate 75 Mg Tablet) 75 mg PO DAILY [facility] Last Admin: 12/14/23 08:21 Dose: 75 mg Documented By: GABRIEL Cyanocobalamin (Cyanocobalamin (Vitamin B-12) 1,000 Mcg Tablet) 5,000 mcg PO DAILY [facility] Last Admin: 12/14/23 08:18 Dose: 5,000 mcg Documented By: GABRIEL Enoxaparin Sodium (Enoxaparin Sodium 30 Mg/0.3 Ml Syringe) 30 mg SUBCUT Q24H [facility] Last Admin: 12/13/23 21:51 Dose: 30 mg Documented By: ISHMAEL Folic Acid (Folic Acid 1 Mg Tablet) 1 mg PO DAILY [facility] Last Admin: 12/14/23 08:20 Dose: 1 mg Documented By: GABRIEL Furosemide (Furosemide 20 Mg/2 Ml Vial) 20 mg IVPUSH DAILY [facility]; Protocol Last Admin: 12/14/23 08:23 Dose: 20 mg Documented By: GABRIEL Gabapentin (Gabapentin 100 Mg Capsule) 100 mg PO BEDTIME [facility] Glucose (Glucose Gel 15 Gm Gel..Gram.) 15 gm PO Q15M PRN; Protocol PRN Reason: per Hypoglycemia Standing Ord. Dextrose (D10) 250 mls @ 750 mls/hr IV Q15M PRN; Protocol PRN Reason: per Hypoglycemia Standing Ord. Insulin Human Lispro (Insulin Lispro 100 Unit/Ml 3 Ml Vial) 0 unit SUBCUT QIDACHS [facility]; Protocol Last Admin: 12/14/23 12:08 Dose: Not Given Documented By: SILVIA Non-Admin Reason: No Insulin Coverage Levothyroxine Sodium (Levothyroxine Sodium 100 Mcg Tablet) 100 mcg PO MOTUTHFRSA@0600 [facility] Last Admin: 12/14/23 06:21 Dose: 100 mcg Documented By: ALLYSON Magnesium Hydroxide (Milk Of Magnesia 30 Ml Oral.Susp) 30 ml PO DAILY PRN PRN Reason: Constipation Melatonin (Melatonin 3 Mg Tablet) 6 mg PO BEDTIME PRN PRN Reason: Insomnia Non-Formulary Medication (Exemestane) 25 mg PO DAILY [facility] Ondansetron HCl (Ondansetron Hcl 4 Mg/2 Ml Vial) 4 mg IVPUSH Q8H PRN PRN Reason: Nausea and Vomiting Sodium Chloride (0.9 % Sodium Chloride Flush 3 Ml Syringe) 3 ml IVFLUSH QSHIFT [facility] Last Admin: 12/14/23 08:17 Dose: 3 ml Documented By: GABRIEL Labs 12/14/23 04:55 12/14/23 04:55 Labs: Laboratory Results - last 24 hr 12/13/23 12/13/23 12/14/23 21:27 21:38 04:55 MCV 104.4 H MCH 34.5 H MCHC 33.1 RDW 15.0 Plt Count 132 L MPV 9.8 Immature Gran % (Auto) 0.5 H Neut % (Auto) 77.4 H Lymph % (Auto) 9.7 L [place] % (Auto) 11.2 H Eos % (Auto) 0.8 Baso % (Auto) 0.4 Lymph # (Auto) 0.8 L [place] # (Auto) 1.0 Eos # (Auto) 0.1 Baso # (Auto) 0.0 Abs Immat Gran (auto) 0.04 H Absolute Neuts (auto) 6.6 Absolute Nucleated RBC 0.000 Nucleated RBC % (auto) 0.0 Anion Gap 15 Estim Creat Clear Calc 25.6 Estimated GFR 34 POC Glucose 220 H Random Glucose 136 H Calcium 8.9 D Troponin I High Sens 39.0 H B-Natriuretic Peptide 3549 H 12/14/23 12/14/23 08:08 11:55 MCV MCH MCHC RDW Plt Count MPV Immature Gran % (Auto) Neut % (Auto) Lymph % (Auto) [place] % (Auto) Eos % (Auto) Baso % (Auto) Lymph # (Auto) [place] # (Auto) Eos # (Auto) Baso # (Auto) Abs Immat Gran (auto) Absolute Neuts (auto) Absolute Nucleated RBC Nucleated RBC % (auto) Anion Gap Estim Creat Clear Calc Estimated GFR POC Glucose 125 H 131 H Random Glucose Calcium Troponin I High Sens B-Natriuretic Peptide Assessment and Plan (1) Acute exacerbation of CHF (congestive heart failure): Status: Acute Plan d2 78yo F with HFrEF [40% 10/22/23], HTN, HLD, chronic macrocytic anemia, R breast CA s/p lumpectomy, DM2, CKD3, gout presenting with dyspnea x 3d, found to be hypoxic from CHF exacerbation AHRF due to acute/chronic HFrEF - continue IV diuresis, monitor lytes/I+O/weight/BNP, wean off O2 - continue carvedilol CAD s/p GREG mid-RCA [also has LCX 70% stenosis] - continue DAPT [ASA + clopidogrel], atorvastatin, b-wolf as above chronic macrocytic anemia - continue B12, recheck H+H in AM, T+S hx breast CA - continue exemesante DM2 - hold MTF, give killian-dose lispro gout - allopurinol iatrogenic hypothyroidism s/p WARREN for papillary thyroid CA - LT4 GERD - PPI VTE ppx - LMWH dispo - TBD In my clinical judgment, the patient requires continued inpatient hospitalization for the following reasons: IV diuresis Total time managing care of this patient today: 35 minutes. Quality Stroke Does the patient have a stroke diagnosis?: No VTE Prior VTE?: No VTE Risk Level:: Medical - moderate - high VTE Device Contraindication: Treatment Not Indicated VTE Drug Contraindication: N/A - Med Ordered
[2023-12-14 16:05] LABS: Glucose, Whole Blood 222 mg/dL (60-115)
[2023-12-14] MEDS: Insulin Lispro 100 UNIT/ML 3 ML VIAL SUBCUT (16:27)
[2023-12-14 20:31] LABS: Glucose, Whole Blood 151 mg/dL (60-115)
[2023-12-14] MEDS: Gabapentin 100 MG CAPSULE PO (20:53)
[2023-12-14] MEDS: Enoxaparin Sodium 30 MG/0.3 ML SYRINGE SUBCUT (20:53)
[2023-12-14] MEDS: Aspirin Enteric Coated 81 MG TABLET.DR PO (20:53)
[2023-12-14] MEDS: Calcium Carbonate 750 MG TAB.CHEW PO (22:05)
[2023-12-15] MEDS: Calcium Carbonate 750 MG TAB.CHEW PO (03:57)
[2023-12-15 04:00] VITALS: BP 140/67; PULSE 75; RESP 18; TEMP 36.8; O2SAT 96
[2023-12-15 07:09] VITALS: BP 143/72; PULSE 79; RESP 14; TEMP 36.1; O2SAT 94
[2023-12-15 07:37] LABS: Anion Gap 16 (12-20); Blood Urea Nitrogen 30 mg/dL (9-16); Calcium 9.1 mg/dL (8.4-10.2); Carbon Dioxide 24 mmol/L (22-29); Chloride 106 mmol/L (96-108); Creatinine Clr Calc Pharmacy 21.5; Estimated Glomerular Filt Rate 26; Glucose Random 116 mg/dL (60-115); Magnesium 2.1 mg/dL (1.6-2.6); Potassium 3.4 mmol/L (3.3-5.1); Sodium 143 mmol/L (135-145)
[2023-12-15 07:42] LABS: Glucose, Whole Blood 109 mg/dL (60-115)
[2023-12-15 07:46] LABS: B Type Natriuretic Peptide 3311 pg/mL (<100)
[2023-12-15] MEDS: Furosemide 20 MG/2 ML VIAL IVPUSH ×2 (07:55→16:40)
[2023-12-15] MEDS: 0.9 % Sodium Chloride Flush 3 ML SYRINGE IVFLUSH ×2 (07:56→16:41)
[2023-12-15] MEDS: carvediloL 6.25 MG TABLET PO ×2 (07:56→20:05)
[2023-12-15] MEDS: Cyanocobalamin (Vitamin B-12) 1,000 MCG TABLET 5000 MCG PO (07:56)
[2023-12-15] MEDS: Clopidogrel Bisulfate 75 MG TABLET PO (07:56)
[2023-12-15] MEDS: allopurinoL 300 MG TABLET PO (07:56)
[2023-12-15] MEDS: Folic Acid 1 MG TABLET PO (07:56)
[2023-12-15] MEDS: Atorvastatin Calcium 80 MG TABLET PO (07:56)
[2023-12-15] MEDS: Ascorbic Acid 500 MG TABLET PO (07:56)
[2023-12-15 07:59] LABS: Hematocrit 23.2 % (37.0-47.0); Hemoglobin 7.8 g/dl (12.0-16.0); Mean Corpuscular HGB Conc 33.6 g/dl (31.0-35.0); Mean Corpuscular Hemoglobin 35.3 pg (27.0-33.0); Mean Platelet Volume 10.1 fL (9.4-12.3); Platelet Count 139 X10*3/uL (160-400); Red Blood Count 2.21 X10*6/uL (4.20-5.50); Red Cell Distribution Width 14.6 % (11.0-16.0); White Blood Count 7.1 X10*3/uL (4.8-10.8)
[2023-12-15 08:05] VITALS: O2SAT 93
--- NOTE | 2023-12-15 10:06 | MHC.CM.PN ---
pt lives with her son they have no servies she has her own ride home when dcd dc home home with family
--- NOTE | 2023-12-15 10:48 | P.PNIM_ITS ---
Subjective Subjective Date of Service: 12/15/23 Interval History: weaned off O2 but still a little tachypneic no chest pain overall improved Review of Systems Review of Systems: Yes all other systems are reviewed and are negative Physical Exam 2 Vital Signs: Vital Signs: Last Vital Signs Temp 97 F 12/15/23 07:09 Pulse 79 12/15/23 07:09 Resp 14 12/15/23 07:09 BP 143/72 H 12/15/23 07:09 Pulse Ox 93 12/15/23 08:05 O2 Del Method Room Air 12/15/23 08:05 O2 Flow Rate 1 12/15/23 07:09 BMI result Body Mass Index 26.0 Gen: in no acute distress HEENT: sclera anicteric, moist mucus membranes Neck: supple Lungs: diminished bilaterally Heart: regular rate and rhythm, no murmurs Abd: soft, non-tender, non-distended Ext: no edema Skin: warm/well-perfused Neuro: alert and oriented x3, no focal findings Psych: appropriate affect Objective Data Active Medications Acetaminophen (Acetaminophen 325 Mg Tablet) 650 mg PO Q6H PRN PRN Reason: Pain, Mild (Pain Scale 1-3), fever or headache Allopurinol (Allopurinol 300 Mg Tablet) 300 mg PO DAILY [facility] Last Admin: 12/15/23 07:56 Dose: 300 mg Documented By: SILVIA Ascorbic Acid (Ascorbic Acid 500 Mg Tablet) 500 mg PO DAILY [facility] Last Admin: 12/15/23 07:56 Dose: 500 mg Documented By: SILVIA Aspirin (Aspirin Enteric Coated 81 Mg Tablet.Dr) 81 mg PO BEDTIME [facility] Last Admin: 12/14/23 20:53 Dose: 81 mg Documented By: ELY Atorvastatin Calcium (Atorvastatin Calcium 80 Mg Tablet) 80 mg PO DAILY [facility] Last Admin: 12/15/23 07:56 Dose: 80 mg Documented By: SILVIA Calcium Carbonate (Calcium Carbonate 750 Mg Tab.Chew) 750 mg PO Q4H PRN PRN Reason: Heartburn Last Admin: 12/15/23 03:57 Dose: 750 mg Documented By: ELY Carvedilol (Carvedilol 6.25 Mg Tablet) 6.25 mg PO BID [facility]; Protocol Last Admin: 12/15/23 07:56 Dose: 6.25 mg Documented By: SILVIA Clopidogrel Bisulfate (Clopidogrel Bisulfate 75 Mg Tablet) 75 mg PO DAILY [facility] Last Admin: 12/15/23 07:56 Dose: 75 mg Documented By: SILVIA Cyanocobalamin (Cyanocobalamin (Vitamin B-12) 1,000 Mcg Tablet) 5,000 mcg PO DAILY [facility] Last Admin: 12/15/23 07:56 Dose: 5,000 mcg Documented By: SILVIA Enoxaparin Sodium (Enoxaparin Sodium 30 Mg/0.3 Ml Syringe) 30 mg SUBCUT Q24H [facility] Last Admin: 12/14/23 20:53 Dose: 30 mg Documented By: ELY Folic Acid (Folic Acid 1 Mg Tablet) 1 mg PO DAILY [facility] Last Admin: 12/15/23 07:56 Dose: 1 mg Documented By: SILVIA Furosemide (Furosemide 20 Mg/2 Ml Vial) 20 mg IVPUSH BID@0900,1800 [facility]; Protocol Last Admin: 12/15/23 08:36 Dose: Not Given Documented By: SILVIA Non-Admin Reason: Previously Administered Gabapentin (Gabapentin 100 Mg Capsule) 100 mg PO BEDTIME [facility] Last Admin: 12/14/23 20:53 Dose: 100 mg Documented By: ELY Glucose (Glucose Gel 15 Gm Gel..Gram.) 15 gm PO Q15M PRN; Protocol PRN Reason: per Hypoglycemia Standing Ord. Dextrose (D10) 250 mls @ 750 mls/hr IV Q15M PRN; Protocol PRN Reason: per Hypoglycemia Standing Ord. Insulin Human Lispro (Insulin Lispro 100 Unit/Ml 3 Ml Vial) 0 unit SUBCUT QIDACHS [facility]; Protocol Last Admin: 12/15/23 07:43 Dose: Not Given Documented By: SILVIA Non-Admin Reason: No Insulin Coverage Levothyroxine Sodium (Levothyroxine Sodium 100 Mcg Tablet) 100 mcg PO MOTUTHFRSA@0600 [facility] Last Admin: 12/14/23 06:21 Dose: 100 mcg Documented By: ALLYSON Magnesium Hydroxide (Milk Of Magnesia 30 Ml Oral.Susp) 30 ml PO DAILY PRN PRN Reason: Constipation Melatonin (Melatonin 3 Mg Tablet) 6 mg PO BEDTIME PRN PRN Reason: Insomnia Non-Formulary Medication (Exemestane) 25 mg PO DAILY [facility] Ondansetron HCl (Ondansetron Hcl 4 Mg/2 Ml Vial) 4 mg IVPUSH Q8H PRN PRN Reason: Nausea and Vomiting Sodium Chloride (0.9 % Sodium Chloride Flush 3 Ml Syringe) 3 ml IVFLUSH QSHIFT [facility] Last Admin: 12/15/23 07:56 Dose: 3 ml Documented By: SILVIA Labs 12/15/23 07:22 12/15/23 06:25 Labs: Laboratory Results - last 24 hr 12/14/23 12/14/23 12/14/23 11:55 15:59 20:21 MCV MCH MCHC RDW Plt Count MPV Absolute Nucleated RBC Nucleated RBC % (auto) Anion Gap Estim Creat Clear Calc Estimated GFR POC Glucose 131 H 222 H 151 H Random Glucose Calcium Magnesium B-Natriuretic Peptide Blood Type Antibody Screen 12/15/23 12/15/23 12/15/23 06:25 07:16 07:22 MCV 105.0 H MCH 35.3 H MCHC 33.6 RDW 14.6 Plt Count 139 L MPV 10.1 Absolute Nucleated RBC 0.000 Nucleated RBC % (auto) 0.0 Anion Gap 16 Estim Creat Clear Calc 21.5 Estimated GFR 26 POC Glucose 109 Random Glucose 116 H Calcium 9.1 Magnesium 2.1 B-Natriuretic Peptide 3311 H Blood Type B Positive Antibody Screen NEGATIVE Microbiology Microbiology Results: Microbiology 12/13/23 13:41 Blood Culture - Preliminary Blood - Venous No growth after 24 hours. 12/13/23 13:09 Blood Culture - Preliminary Blood - Venous No growth after 24 hours. Assessment and Plan (1) Acute exacerbation of CHF (congestive heart failure): Status: Acute Plan d3 78yo F with HFrEF [40% 10/22/23], HTN, HLD, chronic macrocytic anemia, R breast CA s/p lumpectomy, DM2, CKD3, gout presenting with dyspnea x 3d, found to be hypoxic from CHF exacerbation AHRF due to acute/chronic HFrEF - continue IV diuresis 20 mg furosemide bid for 1 more day, monitor lytes/I+O/weight/BNP; weaned off O2 - continue carvedilol CAD s/p GREG mid-RCA [also has LCX 70% stenosis] - continue DAPT [ASA + clopidogrel], atorvastatin, b-wolf as above chronic macrocytic anemia - continue B12, recheck H+H in AM [baseline around 7-8], T+S active hx breast CA - continue exemesante DM2 - hold MTF, give killian-dose lispro gout - allopurinol 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 Quality Stroke Does the patient have a stroke diagnosis?: No VTE Prior VTE?: No VTE Risk Level:: Medical - moderate - high VTE Device Contraindication: Treatment Not Indicated VTE Drug Contraindication: N/A - Med Ordered
[2023-12-15 11:25] LABS: Glucose, Whole Blood 144 mg/dL (60-115)
[2023-12-15 15:39] VITALS: BP 136/76; PULSE 70; RESP 18; TEMP 36.7; O2SAT 97
[2023-12-15 16:19] LABS: Glucose, Whole Blood 172 mg/dL (60-115)
[2023-12-15] MEDS: Insulin Lispro 100 UNIT/ML 3 ML VIAL SUBCUT ×2 (16:40→20:06)
[2023-12-15 18:15] VITALS: O2SAT 87
[2023-12-15 19:23] VITALS: BP 162/83; PULSE 95; RESP 18; TEMP 36.3; O2SAT 96
[2023-12-15 19:55] LABS: Glucose, Whole Blood 205 mg/dL (60-115)
[2023-12-15] MEDS: Gabapentin 100 MG CAPSULE PO (20:05)
[2023-12-15] MEDS: Aspirin Enteric Coated 81 MG TABLET.DR PO (20:06)
[2023-12-15] MEDS: Enoxaparin Sodium 30 MG/0.3 ML SYRINGE SUBCUT (20:07)
[2023-12-16] MEDS: 0.9 % Sodium Chloride Flush 3 ML SYRINGE IVFLUSH ×4 (00:44→20:23)
[2023-12-16 04:00] VITALS: BP 141/71; PULSE 71; RESP 20; TEMP 36.3; O2SAT 97
[2023-12-16] MEDS: Levothyroxine Sodium 100 MCG TABLET PO (05:29)
[2023-12-16 06:49] VITALS: BP 144/77; PULSE 79; RESP 17; TEMP 36.9; O2SAT 93
[2023-12-16 06:50] LABS: Hemoglobin 8.2 g/dl (12.0-16.0); Mean Corpuscular HGB Conc 34.2 g/dl (31.0-35.0); Mean Corpuscular Volume 105.3 fL (80.0-98.0); Mean Platelet Volume 10.4 fL (9.4-12.3); Platelet Count 147 X10*3/uL (160-400); Red Blood Count 2.28 X10*6/uL (4.20-5.50); Red Cell Distribution Width 14.5 % (11.0-16.0)
[2023-12-16 07:02] LABS: B Type Natriuretic Peptide 3595 pg/mL (<100)
[2023-12-16 07:05] LABS: Anion Gap 15 (12-20); Blood Urea Nitrogen 35 mg/dL (9-16); Calcium 8.9 mg/dL (8.4-10.2); Carbon Dioxide 25 mmol/L (22-29); Chloride 105 mmol/L (96-108); Creatinine Clr Calc Pharmacy 20.7; Estimated Glomerular Filt Rate 25; Glucose Random 110 mg/dL (60-115); Magnesium 2.3 mg/dL (1.6-2.6); Potassium 3.3 mmol/L (3.3-5.1); Sodium 142 mmol/L (135-145)
[2023-12-16 07:09] LABS: Glucose, Whole Blood 116 mg/dL (60-115)
[2023-12-16] MEDS: Cyanocobalamin (Vitamin B-12) 1,000 MCG TABLET 5000 MCG PO (08:00)
[2023-12-16] MEDS: Ascorbic Acid 500 MG TABLET PO (08:00)
[2023-12-16 08:01] VITALS: BP 144/77; PULSE 79
[2023-12-16] MEDS: carvediloL 6.25 MG TABLET PO ×2 (08:01→20:18)
[2023-12-16] MEDS: allopurinoL 300 MG TABLET PO (08:01)
[2023-12-16] MEDS: Atorvastatin Calcium 80 MG TABLET PO (08:01)
[2023-12-16] MEDS: Clopidogrel Bisulfate 75 MG TABLET PO (08:01)
[2023-12-16] MEDS: Folic Acid 1 MG TABLET PO (08:01)
[2023-12-16 11:18] LABS: Glucose, Whole Blood 210 mg/dL (60-115)
[2023-12-16] MEDS: Insulin Lispro 100 UNIT/ML 3 ML VIAL SUBCUT ×2 (11:44→16:54)
--- NOTE | 2023-12-16 12:17 | P.PNIM_ITS ---
Subjective Subjective Date of Service: 12/16/23 Interval History: seen and examined feels better than yesterday, but still sob Review of Systems Negative except HPI/interval history. Physical Exam 2 Vital Signs: Vital Signs: Last Vital Signs Temp 98.5 F 12/16/23 06:49 Pulse 79 12/16/23 08:01 Resp 17 12/16/23 06:49 BP 144/77 H 12/16/23 08:01 Pulse Ox 93 12/16/23 06:49 O2 Del Method Nasal Cannula 12/16/23 06:49 O2 Flow Rate 2 12/16/23 06:49 BMI result Body Mass Index 26.0 Const: Other: General - no acute distress, appears comfortable Cardiovascular - regular rate and rhythm, S1-S2 Lungs - rales R base > L base Abdomen - soft, nontender, no rebound or guarding Extremities - minimal edema Neuro - awake and alert, no focal deficits Objective Data Active Medications Acetaminophen (Acetaminophen 325 Mg Tablet) 650 mg PO Q6H PRN PRN Reason: Pain, Mild (Pain Scale 1-3), fever or headache Allopurinol (Allopurinol 300 Mg Tablet) 300 mg PO DAILY [facility] Last Admin: 12/16/23 08:01 Dose: 300 mg Documented By: KENIA Ascorbic Acid (Ascorbic Acid 500 Mg Tablet) 500 mg PO DAILY [facility] Last Admin: 12/16/23 08:00 Dose: 500 mg Documented By: KENIA Aspirin (Aspirin Enteric Coated 81 Mg Tablet.) 81 mg PO BEDTIME [facility] Last Admin: 12/15/23 20:06 Dose: 81 mg Documented By: SILVIA Atorvastatin Calcium (Atorvastatin Calcium 80 Mg Tablet) 80 mg PO DAILY [facility] Last Admin: 12/16/23 08:01 Dose: 80 mg Documented By: KENIA Calcium Carbonate (Calcium Carbonate 750 Mg Tab.Chew) 750 mg PO Q4H PRN PRN Reason: Heartburn Last Admin: 12/15/23 03:57 Dose: 750 mg Documented By: ELY Carvedilol (Carvedilol 6.25 Mg Tablet) 6.25 mg PO BID [facility]; Protocol Last Admin: 12/16/23 08:01 Dose: 6.25 mg Documented By: KENIA Clopidogrel Bisulfate (Clopidogrel Bisulfate 75 Mg Tablet) 75 mg PO DAILY [facility] Last Admin: 12/16/23 08:01 Dose: 75 mg Documented By: KENIA Cyanocobalamin (Cyanocobalamin (Vitamin B-12) 1,000 Mcg Tablet) 5,000 mcg PO DAILY [facility] Last Admin: 12/16/23 08:00 Dose: 5,000 mcg Documented By: KENIA Enoxaparin Sodium (Enoxaparin Sodium 30 Mg/0.3 Ml Syringe) 30 mg SUBCUT Q24H [facility] Last Admin: 12/15/23 20:07 Dose: 30 mg Documented By: SILVIA Folic Acid (Folic Acid 1 Mg Tablet) 1 mg PO DAILY [facility] Last Admin: 12/16/23 08:01 Dose: 1 mg Documented By: KENIA Furosemide (Furosemide 20 Mg/2 Ml Vial) 20 mg IVPUSH BID@0900,1800 [facility]; Protocol Last Admin: 12/15/23 16:40 Dose: 20 mg Documented By: SILVIA Gabapentin (Gabapentin 100 Mg Capsule) 100 mg PO BEDTIME [facility] Last Admin: 12/15/23 20:05 Dose: 100 mg Documented By: SILVIA Glucose (Glucose Gel 15 Gm Gel..Gram.) 15 gm PO Q15M PRN; Protocol PRN Reason: per Hypoglycemia Standing Ord. Dextrose (D10) 250 mls @ 750 mls/hr IV Q15M PRN; Protocol PRN Reason: per Hypoglycemia Standing Ord. Insulin Human Lispro (Insulin Lispro 100 Unit/Ml 3 Ml Vial) 0 unit SUBCUT QIDACHS [facility]; Protocol Last Admin: 12/16/23 11:44 Dose: 4 unit Documented By: KENIA Levothyroxine Sodium (Levothyroxine Sodium 100 Mcg Tablet) 100 mcg PO MOTUTHFRSA@0600 [facility] Last Admin: 12/16/23 05:29 Dose: 100 mcg Documented By: ODALIS Magnesium Hydroxide (Milk Of Magnesia 30 Ml Oral.Susp) 30 ml PO DAILY PRN PRN Reason: Constipation Melatonin (Melatonin 3 Mg Tablet) 6 mg PO BEDTIME PRN PRN Reason: Insomnia Non-Formulary Medication (Exemestane) 25 mg PO DAILY [facility] Ondansetron HCl (Ondansetron Hcl 4 Mg/2 Ml Vial) 4 mg IVPUSH Q8H PRN PRN Reason: Nausea and Vomiting Sodium Chloride (0.9 % Sodium Chloride Flush 3 Ml Syringe) 3 ml IVFLUSH QSHIFT [facility] Last Admin: 12/16/23 08:00 Dose: 3 ml Documented By: KENIA Labs 12/16/23 05:45 12/16/23 05:45 Labs: Laboratory Results - last 24 hr 12/15/23 12/15/23 12/16/23 16:14 19:50 05:45 MCV 105.3 H MCH 36.0 H MCHC 34.2 RDW 14.5 Plt Count 147 L MPV 10.4 Absolute Nucleated RBC 0.000 Nucleated RBC % (auto) 0.0 Anion Gap 15 Estim Creat Clear Calc 20.7 Estimated GFR 25 POC Glucose 172 H 205 H Random Glucose 110 Calcium 8.9 Magnesium 2.3 B-Natriuretic Peptide 3595 H 12/16/23 12/16/23 07:04 11:08 MCV MCH MCHC RDW Plt Count MPV Absolute Nucleated RBC Nucleated RBC % (auto) Anion Gap Estim Creat Clear Calc Estimated GFR POC Glucose 116 H 210 H Random Glucose Calcium Magnesium B-Natriuretic Peptide Microbiology Microbiology Results: Microbiology 12/13/23 13:41 Blood Culture - Preliminary Blood - Venous No growth after 48 hours. 12/13/23 13:09 Blood Culture - Preliminary Blood - Venous No growth after 48 hours. Assessment and Plan (1) Acute exacerbation of CHF (congestive heart failure): Status: Acute Plan d3 78yo F with HFrEF [40% 10/22/23], HTN, HLD, chronic macrocytic anemia, R breast CA s/p lumpectomy, DM2, CKD3, gout presenting with dyspnea x 3d, found to be hypoxic from CHF exacerbation AHRF due to acute/chronic HFrEF was on iv lasix 20mg bid since admit -- SCr now rising x 2 days in a row will hold off diuretics today (clincally still looks like some volume overload and bnp still significant overloaded) will ask cardiology for input CAD s/p GREG mid-RCA [also has LCX 70% stenosis] - continue DAPT [ASA + clopidogrel], atorvastatin, b-wolf as above chronic macrocytic anemia - continue B12, recheck H+H in AM [baseline around 7-8], T+S active hx breast CA - continue exemesante DM2 - hold MTF, give killian-dose lispro gout - allopurinol 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 Quality Stroke Does the patient have a stroke diagnosis?: No VTE Prior VTE?: No VTE Risk Level:: Medical - moderate - high VTE Device Contraindication: Treatment Not Indicated VTE Drug Contraindication: N/A - Med Ordered
[2023-12-16 12:42] VITALS: O2SAT 98
--- NOTE | 2023-12-16 13:57 | MHC.CM.PN ---
Per MD patient not medically cleared for dc. May require new VNA for SN medication/disease teaching. Referral sent to NA per request. CM will continue to follow.
[2023-12-16 15:36] VITALS: BP 137/82; PULSE 85; RESP 18; TEMP 36.2; O2SAT 94
[2023-12-16 16:07] LABS: Glucose, Whole Blood 242 mg/dL (60-115)
[2023-12-16 19:15] VITALS: BP 141/67; PULSE 91; RESP 20; TEMP 36.2; O2SAT 93
[2023-12-16 20:17] LABS: Glucose, Whole Blood 150 mg/dL (60-115)
[2023-12-16] MEDS: Aspirin Enteric Coated 81 MG TABLET.DR PO (20:18)
[2023-12-16] MEDS: Gabapentin 100 MG CAPSULE PO (20:18)
[2023-12-16] MEDS: Enoxaparin Sodium 30 MG/0.3 ML SYRINGE SUBCUT (20:19)
[2023-12-17] VITALS (11 sets, daily range): BP systolic 124–163; BP diastolic 60–83; PULSE 63–84; RESP 14–20; TEMP 36.1–37.5; O2SAT 94–97
[2023-12-17] MEDS: Levothyroxine Sodium 100 MCG TABLET PO (05:29)
[2023-12-17 06:53] LABS: Anion Gap 17 (12-20); Blood Urea Nitrogen 41 mg/dL (9-16); Carbon Dioxide 24 mmol/L (22-29); Chloride 105 mmol/L (96-108); Creatinine Clr Calc Pharmacy 20.1; Estimated Glomerular Filt Rate 24; Glucose Random 130 mg/dL (60-115); Potassium 3.6 mmol/L (3.3-5.1); Sodium 142 mmol/L (135-145)
--- NOTE | 2023-12-17 07:00 | CA_ITS ---
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 Mildly dilated left ventricle with severe LV systolic dysfunction LVEF of 20 25% with grade 3 diastolic dysfunction 2. At least moderately dilated left atrium 3. Moderate to severe mitral regurgitation due to annular dilatation as well as restricted posterior leaflet 4. Mildly dilated ascending aorta 5. Small pericardial effusion Findings Left Ventricle Mildly increased left ventricular cavity size. There is normal left ventricular wall thickness. The left ventricular systolic function is severely decreased. The visually estimated ejection fraction is between 20 25%. Spectral Doppler is indicative of a restrictive filling pattern. E/E prime ratio is >15, consistent with elevated filling pressures. Evidence suggests grade III (severe) diastolic dysfunction. Right Ventricle Mildly increased right ventricular cavity size. There is mildly decreased right ventricular systolic function. Atria The left atrium is moderately dilated. There is no evidence of interatrial shunt. The right atrium is likely dilated. Aortic Valve Normal aortic valve structure and function. There is no aortic valve stenosis. There is mild aortic valve regurgitation. Mitral Valve There is mild anterior and posterior mitral leaflet thickening. The posterior mitral leaflet has restricted mobility. There is moderate to severe mitral valve regurgitation. There is no mitral valve stenosis. Pulmonic Valve The pulmonic valve is likely normal. There is mild pulmonic valve regurgitation. Tricuspid Valve Normal tricuspid valve structure. Tricuspid regurgitation envelope is inadequate for calculation of right ventricular systolic pressure. Mildly elevated right atrial pressure. Great Vessels The pulmonary artery was not well visualized. There is mild dilatation of the ascending aorta measuring 3.80 cm. Venous The inferior vena cava is normal in size and collapses less than 50% with inspiration. Pericardium/Pleural There is a small circumferential pericardial effusion. Prior Study Comparison Significant changes compared to prior study dated: 12/17/2023. LV systolic function significantly reduced. Mitral regurgitation is worse. Measurements 2D Linear Measurements IVSd: 0.74 0.6-0.9/0.6-1.0 cm LVIDd: 5.60 3.9-5.3/4.2-5.9 cm LVIDd Index: 3.48 2.4-3.2/2.2-3.1 cm/m2 LVIDs: 5.05 2.0-3.6 cm LVPWd: 0.82 0.7-1.1 cm LA Diam: 5.00 2.7-3.8/3.0-4.0 cm LAIDs Index: 3.11 1.5-2.3 cm/m2 LV Mass: 199.42 67-162/88-224 g LV Mass Index: 123.87 43-95/49-115 g/m2 LVOT Diam: 2.20 3.0+(-)1.3 cm 2D Systolic Function EF 4C: 21.70 >55% EF 2C: 28.70 >55% EF BiP: 25.70 >55% Mitral Valve MV Pk E: 1.19 MV PK A: 0.42 MV Decel Time: 149.00 E/A: 2.80 PHT: 44.00 MVA PHT: 5.00 Decel Wake: 7.97 MR Vol - PW Dopp: 37.17 MR VTI: 1.77 MR ERO: 21.00 MR Alias Dex: 0.39 MR RAD: 0.70 Aortic Valve AoV Pk Dex: 1.10 AoV Pk Grad: 5.00 LUCAS: 2.19 AI Pk Dex: 4.47 AI Wake: 3.41 LVOT LVOT Pk Dex: 0.70 LVOT Mn Dex: 0.48 LVOT VTI: 0.12 LVOT Pk Grad: 2.00 LVOT Mn Grad: 1.00 LVOT Diam: 2.20 LVOT Area: 3.80 Diastolic Function MV Pk E: 1.19 MV Pk A: 0.42 E/A: 2.80 Right Ventricle TAPSE (mm): 15.80 TVS' Dex: 8.93 Tricuspid Valve RA Press: 8.00 Great Vessels Aorta Sinus of Valsalva: 3.30 2.0-3.5 cm Ao Asc: 3.80 2.1-3.4 cm Pulmonary Valve PV Pk Dex: 0.75 Peak PV Grad: 2.00 Updated in Other Vendor System with Status of Final Helio Comer MD electronically signed on 12/17/2023 2:40:36 PM with status of Final
[2023-12-17 07:13] LABS: Glucose, Whole Blood 146 mg/dL (60-115)
[2023-12-17] MEDS: Folic Acid 1 MG TABLET PO (08:38)
[2023-12-17] MEDS: Ascorbic Acid 500 MG TABLET PO (08:38)
[2023-12-17] MEDS: allopurinoL 300 MG TABLET PO (08:38)
[2023-12-17] MEDS: Clopidogrel Bisulfate 75 MG TABLET PO (08:38)
[2023-12-17] MEDS: Cyanocobalamin (Vitamin B-12) 1,000 MCG TABLET 5000 MCG PO (08:38)
[2023-12-17] MEDS: 0.9 % Sodium Chloride Flush 3 ML SYRINGE IVFLUSH ×2 (08:39→21:03)
[2023-12-17] MEDS: Atorvastatin Calcium 80 MG TABLET PO (08:39)
[2023-12-17] MEDS: carvediloL 6.25 MG TABLET PO ×2 (08:39→21:01)
[2023-12-17 09:37] LABS: Hematocrit 27.4 % (37.0-47.0); Hemoglobin 9.3 g/dl (12.0-16.0); Mean Corpuscular HGB Conc 33.9 g/dl (31.0-35.0); Mean Corpuscular Hemoglobin 35.6 pg (27.0-33.0); Mean Platelet Volume 9.8 fL (9.4-12.3); Platelet Count 195 X10*3/uL (160-400); Red Blood Count 2.61 X10*6/uL (4.20-5.50); Red Cell Distribution Width 14.6 % (11.0-16.0); White Blood Count 9.1 X10*3/uL (4.8-10.8)
--- NOTE | 2023-12-17 10:10 | PM.CNCAR ---
History of Present Illness History of Present Illness Date of Service: 12/17/23 Requesting physician: Elton Cleveland Consult reason: congestive heart failure Chief complaint: Dyspnea Narrative: I was consulted to see Tonia in cardiology consultation today for management of congestive heart failure. Patient 78 year female with prior history of CAD status post RCA stenting recently, cardiomyopathy initially nonischemic but has remained with now wall motion abnormality along with moderate LV systolic dysfunction with LVEF of 40% with in the past severe mitral regurgitation but after stenting has improved to mild mitral regurgitation. Patient present hospital after receiving a blood transfusion on Saturday not able to breathe. She was then started on diuretic therapy and seems to have not had good adequate response unless the output chart is not well chart it. Patient subsequently had rising creatinine was felt that she was over diuresed but remains significantly short of breath. Her admission BNP is 3595 which is significantly elevated compared to baseline BNP of about 700. Hematocrit has remained in the 24 range. Yesterday with diuretic was held because of elevated creatinine and this morning she says she was very short of breath. She says she was not able to lay in bed without using oxygen at nighttime. No significant leg swelling or abdominal distension. Denies chest pain. No arrhythmias. Creatinine up to 1.9 Review of Systems Constitutional: Constitutional: Reports weakness Eyes: Eyes: Reports no additional eye complaints Cardiovascular: Cardiovascular: Denies Abdominal Distension, Denies chest pain, Denies leg edema, Denies lightheadedness, Denies Loss of Consciousness, Denies palpitations, Reports dyspnea, Reports dyspnea on exertion and Reports orthopnea Respiratory: Respiratory: Denies cough, Reports dyspnea, Reports dyspnea on exertion and Denies wheezing Gastrointestinal: Gastrointestinal: Reports no additional gastrointestinal complaints Genitourinary: Genitourinary: Reports no additional female genitourinary complaints Neurologic: Reports system reviewed and no additional complaints, except as documented and Reports weakness Psychiatric: Psychiatric: Reports no additional psychiatric complaints Endocrine: Endocrine: Denies palpitations Allergic/Immunologic: Allergic/Immunologic: Denies wheezing [facility] Past Medical History Medical History CAD (coronary artery disease) CHF (congestive heart failure) Cervix prolapsed into vagina History of blood transfusion (~02/01/23) Diabetes mellitus HFrEF (heart failure with reduced ejection fraction) Cardiomyopathy Normal colonoscopy Type 2 diabetes mellitus Diverticulosis Irritable bowel syndrome Pulmonary emboli GERD (gastroesophageal reflux disease) Nephrolithiasis Hypoparathyroidism Papillary thyroid carcinoma HTN (hypertension) Polymyalgia rheumatica Hyperglycemia Chronic anemia Anemia Family History Family History Sister CHF (congestive heart failure) Daughter Breast cancer Son Kidney stones Surgical History Surgical History Stented coronary artery Breast mass, right H/O endoscopy History of cholecystectomy H/O total thyroidectomy Social History Social History Household Members: Family Household Members Other:: son Housing: House Do you presently have visiting nurse or other home services: No Alcohol intake: never Patient Tobacco Use Status: Never used Tobacco Years Smoked: 30 +/- e-Cigarette/Vaping Use: Never Used Second Hand Smoke Exposure: No service: No Current occupational status: retired 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 Allergies Allergy/AdvReac Type Severity Reaction Status Date / Time esomeprazole [From NEXIUM] Allergy Intermediate CHEST PAIN Verified 12/13/23 09:52 omeprazole [From PRILOSEC] Allergy Intermediate CHEST PAIN Verified 12/13/23 09:52 diphenhydramine Allergy Dizziness Verified 12/13/23 09:52 [From Benadryl] Active Medications: Current Medications Acetaminophen (Acetaminophen 325 Mg Tablet) 650 mg PO Q6H PRN PRN Reason: Pain, Mild (Pain Scale 1-3), fever or headache Allopurinol (Allopurinol 300 Mg Tablet) 300 mg PO DAILY [facility] Last Admin: 12/17/23 08:38 Dose: 300 mg Ascorbic Acid (Ascorbic Acid 500 Mg Tablet) 500 mg PO DAILY [facility] Last Admin: 12/17/23 08:38 Dose: 500 mg Aspirin (Aspirin Enteric Coated 81 Mg Tablet.Dr) 81 mg PO BEDTIME [facility] Last Admin: 12/16/23 20:18 Dose: 81 mg Atorvastatin Calcium (Atorvastatin Calcium 80 Mg Tablet) 80 mg PO DAILY [facility] Last Admin: 12/17/23 08:39 Dose: 80 mg Calcium Carbonate (Calcium Carbonate 750 Mg Tab.Chew) 750 mg PO Q4H PRN PRN Reason: Heartburn Last Admin: 12/15/23 03:57 Dose: 750 mg Carvedilol (Carvedilol 6.25 Mg Tablet) 6.25 mg PO BID [facility]; Protocol Last Admin: 12/17/23 08:39 Dose: 6.25 mg Clopidogrel Bisulfate (Clopidogrel Bisulfate 75 Mg Tablet) 75 mg PO DAILY [facility] Last Admin: 12/17/23 08:38 Dose: 75 mg Cyanocobalamin (Cyanocobalamin (Vitamin B-12) 1,000 Mcg Tablet) 5,000 mcg PO DAILY [facility] Last Admin: 12/17/23 08:38 Dose: 5,000 mcg Enoxaparin Sodium (Enoxaparin Sodium 30 Mg/0.3 Ml Syringe) 30 mg SUBCUT Q24H [facility] Last Admin: 12/16/23 20:19 Dose: 30 mg Folic Acid (Folic Acid 1 Mg Tablet) 1 mg PO DAILY [facility] Last Admin: 12/17/23 08:38 Dose: 1 mg Gabapentin (Gabapentin 100 Mg Capsule) 100 mg PO BEDTIME [facility] Last Admin: 12/16/23 20:18 Dose: 100 mg Glucose (Glucose Gel 15 Gm Gel..Gram.) 15 gm PO Q15M PRN; Protocol PRN Reason: per Hypoglycemia Standing Ord. Dextrose (D10) 250 mls @ 750 mls/hr IV Q15M PRN; Protocol PRN Reason: per Hypoglycemia Standing Ord. Furosemide 200 mg/ Sodium (Chloride) 100 mls @ 2.5 mls/hr IVCONT .Q24H [facility] Insulin Human Lispro (Insulin Lispro 100 Unit/Ml 3 Ml Vial) 0 unit SUBCUT QIDACHS [facility]; Protocol Last Admin: 12/17/23 07:14 Dose: Not Given Levothyroxine Sodium (Levothyroxine Sodium 100 Mcg Tablet) 100 mcg PO MOTUTHFRSA@0600 [facility] Last Admin: 12/17/23 05:29 Dose: 100 mcg Magnesium Hydroxide (Milk Of Magnesia 30 Ml Oral.Susp) 30 ml PO DAILY PRN PRN Reason: Constipation Melatonin (Melatonin 3 Mg Tablet) 6 mg PO BEDTIME PRN PRN Reason: Insomnia Non-Formulary Medication (Exemestane) 25 mg PO DAILY [facility] Ondansetron HCl (Ondansetron Hcl 4 Mg/2 Ml Vial) 4 mg IVPUSH Q8H PRN PRN Reason: Nausea and Vomiting Sodium Chloride (0.9 % Sodium Chloride Flush 3 Ml Syringe) 3 ml IVFLUSH QSHIFT [facility] Last Admin: 12/17/23 08:39 Dose: 3 ml Home Medications ?Medication ?Instructions ?Recorded ?Confirmed ?Last Taken ?Type aspirin 81 mg tablet,delayed 81 mg PO DAILY 02/29/20 12/13/23 12/12/23 History release cholecalciferol (vitamin D3) 50 50 mcg PO DAILY 02/29/20 12/13/23 12/12/23 History mcg (2,000 unit) tablet (Vitamin D3) cyanocobalamin (vitamin B-12) 5,000 mcg PO DAILY 02/29/20 12/13/23 12/12/23 History 5,000 mcg disintegrating tablet folic acid 1 mg tablet 1 mg PO DAILY 02/29/20 12/13/23 12/12/23 History levothyroxine 100 mcg tablet 100 mcg PO MOTUTHFRSA@0600 02/29/20 12/13/23 12/13/23 History vitamin E 400 unit tablet 450 mg PO DAILY 02/29/20 12/13/23 12/12/23 History allopurinol 300 mg tablet 300 mg PO DAILY 09/29/20 12/13/23 12/12/23 History carvedilol 6.25 mg tablet 6.25 mg PO BID 09/29/20 12/13/23 12/12/23 History furosemide 20 mg tablet 20 mg PO DAILY 09/29/20 12/13/23 12/12/23 History rosuvastatin 20 mg tablet 20 mg PO DAILY 09/29/20 12/13/23 12/12/23 History gabapentin 100 mg capsule 100 mg PO DAILY 05/23/22 12/13/23 12/12/23 History cranberry 500 mg capsule 500 mg PO DAILY 11/20/22 12/13/23 12/12/23 History d-mannose 500 mg capsule (AZO 500 mg PO DAILY 11/20/22 12/13/23 12/12/23 History D-Mannose) ascorbic acid (vitamin C) 500 mg 500 mg PO DAILY 09/23/23 12/13/23 12/12/23 History tablet (Vitamin C) calcium carbonate (Calcium 600) 600 mg PO DAILY 09/23/23 12/13/23 12/12/23 History clopidogrel 75 mg tablet 75 mg PO DAILY 09/23/23 12/13/23 12/12/23 History metformin 500 mg tablet,extended 1,000 mg PO DAILY 09/23/23 12/13/23 12/12/23 History release 24 hr exemestane 25 mg tablet 25 mg PO DAILY 10/03/23 12/13/23 12/12/23 History Physical Exam Vital Signs: Vital Signs: Last Vital Signs Temp 97.5 F 12/17/23 07:24 Pulse 84 12/17/23 08:39 Resp 16 12/17/23 07:24 BP 141/72 H 12/17/23 08:39 Pulse Ox 97 12/17/23 08:47 O2 Del Method Room Air 12/17/23 08:47 O2 Flow Rate 1.5 12/17/23 07:24 BMI result Body Mass Index 26.0 Const: General: cooperative, alert, awake and in distress mild and respiratory Nutritional Appearance: thin Orientation/consciousness: patient oriented x3 HEENT: Head: Yes normocephalic and Yes atraumatic Neck: Neck: Yes trachea midline, Yes supple and Yes JVD Resp: Effort & Inspection: normal respiratory effort Auscultation: crackles bilateral at the base Cardio: Jugular venous distension: JVD Palpation: normal PMI Rate: regular rate Rhythm: regular rhythm Heart sounds: S1 normal heart sound present, S2 normal heart sound present, no click, no gallops and no murmurs GI: Auscultation: normal bowel sounds Skin: General skin exam: no rashes or lesions noted and ecchymosis Neuro: General: patient oriented x3 and no focal motor deficits Extrem: General: Yes no clubbing, cyanosis or edema Objective Labs and Meds 12/17/23 09:24 12/17/23 05:33 Lab results: Laboratory Results - last 24 hr 12/16/23 12/16/23 12/16/23 11:08 15:58 20:11 WBC RBC Hgb Hct MCV MCH MCHC RDW Plt Count MPV Absolute Nucleated RBC Nucleated RBC % (auto) Sodium Potassium Chloride Carbon Dioxide Anion Gap BUN Creatinine Estim Creat Clear Calc Estimated GFR POC Glucose 210 H 242 H 150 H Random Glucose Calcium 12/17/23 12/17/23 12/17/23 05:33 07:07 09:24 WBC 9.1 RBC 2.61 L Hgb 9.3 L Hct 27.4 L MCV 105.0 H MCH 35.6 H MCHC 33.9 RDW 14.6 Plt Count 195 D MPV 9.8 Absolute Nucleated RBC 0.000 Nucleated RBC % (auto) 0.0 Sodium 142 Potassium 3.6 Chloride 105 Carbon Dioxide 24 Anion Gap 17 BUN 41 H Creatinine 1.98 H Estim Creat Clear Calc 20.1 Estimated GFR 24 POC Glucose 146 H Random Glucose 130 H Calcium 9.0 Assessment and Plan (1) Acute exacerbation of CHF (congestive heart failure): Status: Acute Acute congestive heart failure in this elderly woman of unclear etiology. She remains significantly short of breath. Question worsening mitral regurgitation. Will repeat another echocardiogram. Meanwhile creatinine is rising BNP significantly elevated all findings suggestive of worsening heart failure syndrome. I would start on diuretic therapy with Lasix drip at 5 mg an hour. Strict intake and output chart needs to be pursued. Add hydralazine 10 mg b.i.d. to her regimen for afterload reduction. Continue monitor renal function electrolytes closely. Continue carvedilol therapy. Continue aspirin and Plavix therapy. Further treatment based on the finding of echocardiogram as well as response to therapy. Would also transfuse her to hematocrit of 30. Will follow with you Procedures Date of Service Date of Service: 12/17/23
[2023-12-17 11:03] LABS: Glucose, Whole Blood 144 mg/dL (60-115)
[2023-12-17] MEDS: Furosemide 200 MG in 0.9 % Sodium Chloride 80 ML IVCONT (11:12)
--- NOTE | 2023-12-17 11:17 | HO.PM.IMPN ---
Subjective Subjective Date of Service: 12/17/23 Interval History: seen and examined still sob and unable to lay supine Review of Systems Negative except HPI/interval history. Physical Exam Vital Signs: Vital Signs: Last Vital Signs Temp 97.2 F 12/17/23 11:04 Pulse 81 12/17/23 11:04 Resp 16 12/17/23 11:04 BP 138/72 12/17/23 11:12 Pulse Ox 95 12/17/23 11:04 O2 Del Method Room Air 12/17/23 11:04 O2 Flow Rate 1.5 12/17/23 07:24 BMI result Body Mass Index 26.0 Const: Other: General - no acute distress, appears comfortable Cardiovascular - regular rate and rhythm, S1-S2; +JVD Lungs - rales R base > L base Abdomen - soft, nontender, no rebound or guarding Extremities - minimal edema Neuro - awake and alert, no focal deficits Objective Data Active Medications Acetaminophen (Acetaminophen 325 Mg Tablet) 650 mg PO Q6H PRN PRN Reason: Pain, Mild (Pain Scale 1-3), fever or headache Allopurinol (Allopurinol 300 Mg Tablet) 300 mg PO DAILY [facility] Last Admin: 12/17/23 08:38 Dose: 300 mg Documented By: KENIA Ascorbic Acid (Ascorbic Acid 500 Mg Tablet) 500 mg PO DAILY [facility] Last Admin: 12/17/23 08:38 Dose: 500 mg Documented By: KENIA Aspirin (Aspirin Enteric Coated 81 Mg Tablet.) 81 mg PO BEDTIME [facility] Last Admin: 12/16/23 20:18 Dose: 81 mg Documented By: DOMINGUEZ Atorvastatin Calcium (Atorvastatin Calcium 80 Mg Tablet) 80 mg PO DAILY [facility] Last Admin: 12/17/23 08:39 Dose: 80 mg Documented By: KENIA Calcium Carbonate (Calcium Carbonate 750 Mg Tab.Chew) 750 mg PO Q4H PRN PRN Reason: Heartburn Last Admin: 12/15/23 03:57 Dose: 750 mg Documented By: ELY Carvedilol (Carvedilol 6.25 Mg Tablet) 6.25 mg PO BID [facility]; Protocol Last Admin: 12/17/23 08:39 Dose: 6.25 mg Documented By: KENIA Clopidogrel Bisulfate (Clopidogrel Bisulfate 75 Mg Tablet) 75 mg PO DAILY [facility] Last Admin: 12/17/23 08:38 Dose: 75 mg Documented By: KENIA Cyanocobalamin (Cyanocobalamin (Vitamin B-12) 1,000 Mcg Tablet) 5,000 mcg PO DAILY [facility] Last Admin: 12/17/23 08:38 Dose: 5,000 mcg Documented By: KENIA Enoxaparin Sodium (Enoxaparin Sodium 30 Mg/0.3 Ml Syringe) 30 mg SUBCUT Q24H [facility] Last Admin: 12/16/23 20:19 Dose: 30 mg Documented By: DOMINGUEZ Folic Acid (Folic Acid 1 Mg Tablet) 1 mg PO DAILY [facility] Last Admin: 12/17/23 08:38 Dose: 1 mg Documented By: KENIA Gabapentin (Gabapentin 100 Mg Capsule) 100 mg PO BEDTIME [facility] Last Admin: 12/16/23 20:18 Dose: 100 mg Documented By: DOMINGUEZ Glucose (Glucose Gel 15 Gm Gel..Gram.) 15 gm PO Q15M PRN; Protocol PRN Reason: per Hypoglycemia Standing Ord. Dextrose (D10) 250 mls @ 750 mls/hr IV Q15M PRN; Protocol PRN Reason: per Hypoglycemia Standing Ord. Furosemide 200 mg/ Sodium (Chloride) 100 mls @ 2.5 mls/hr IVCONT .Q24H [facility] Last Admin: 12/17/23 11:12 Dose: 5 mg/hr, 2.5 mls/hr Documented By: KENIA Insulin Human Lispro (Insulin Lispro 100 Unit/Ml 3 Ml Vial) 0 unit SUBCUT QIDACHS [facility]; Protocol Last Admin: 12/17/23 11:04 Dose: Not Given Documented By: KENIA Non-Admin Reason: No Insulin Coverage Levothyroxine Sodium (Levothyroxine Sodium 100 Mcg Tablet) 100 mcg PO MOTUTHFRSA@0600 [facility] Last Admin: 12/17/23 05:29 Dose: 100 mcg Documented By: DOMINGUEZ Magnesium Hydroxide (Milk Of Magnesia 30 Ml Oral.Susp) 30 ml PO DAILY PRN PRN Reason: Constipation Melatonin (Melatonin 3 Mg Tablet) 6 mg PO BEDTIME PRN PRN Reason: Insomnia Non-Formulary Medication (Exemestane) 25 mg PO DAILY [facility] Ondansetron HCl (Ondansetron Hcl 4 Mg/2 Ml Vial) 4 mg IVPUSH Q8H PRN PRN Reason: Nausea and Vomiting Sodium Chloride (0.9 % Sodium Chloride Flush 3 Ml Syringe) 3 ml IVFLUSH QSHIFT [facility] Last Admin: 12/17/23 08:39 Dose: 3 ml Documented By: KENIA Labs 12/17/23 09:24 12/17/23 05:33 Labs: Laboratory Results - last 24 hr 12/16/23 12/16/23 12/16/23 11:08 15:58 20:11 MCV MCH MCHC RDW Plt Count MPV Absolute Nucleated RBC Nucleated RBC % (auto) Anion Gap Estim Creat Clear Calc Estimated GFR POC Glucose 210 H 242 H 150 H Random Glucose Calcium 12/17/23 12/17/23 12/17/23 05:33 07:07 09:24 MCV 105.0 H MCH 35.6 H MCHC 33.9 RDW 14.6 Plt Count 195 D MPV 9.8 Absolute Nucleated RBC 0.000 Nucleated RBC % (auto) 0.0 Anion Gap 17 Estim Creat Clear Calc 20.1 Estimated GFR 24 POC Glucose 146 H Random Glucose 130 H Calcium 9.0 12/17/23 10:54 MCV MCH MCHC RDW Plt Count MPV Absolute Nucleated RBC Nucleated RBC % (auto) Anion Gap Estim Creat Clear Calc Estimated GFR POC Glucose 144 H Random Glucose Calcium Assessment and Plan (1) Acute exacerbation of CHF (congestive heart failure): Status: Acute Plan d3 78yo F with HFrEF [40% 10/22/23], HTN, HLD, chronic macrocytic anemia, R breast CA s/p lumpectomy, DM2, CKD3, gout presenting with dyspnea x 3d, found to be hypoxic from CHF exacerbation AHRF due to acute/chronic HFrEF was on iv lasix 20mg bid since admit -- SCr now rising x 3 days cardiology consulted -- recs appreciated: will commence IV lasix (K 3.6 but suspect will drop on IV lasix drip, will give 20mg po), move to telemetry, hydralazine 10mg BID added; Crit improved from 24 to 27 today, wlll hold off prbc today and check h/h daily CAD s/p GREG mid-RCA [also has LCX 70% stenosis] - continue DAPT [ASA + clopidogrel], atorvastatin, coreg chronic macrocytic anemia h/h stable, slight improvement hx breast CA - continue exemesante (if pt able to bring from home) DM2 - hold MTF, give killian-dose lispro gout - allopurinol iatrogenic hypothyroidism s/p WARREN for papillary thyroid CA - LT4 GERD - PPI VTE ppx - LMWH dispo - PT eval done -- outpatient PT; may need repeat eval prior to d/c In my clinical judgment, the patient requires continued inpatient hospitalization for the following reasons: CHF/TED; IV lasix drip initiated Total time managing care of this patient today: 35 minutes. Quality Stroke Does the patient have a stroke diagnosis?: No VTE Prior VTE?: No VTE Risk Level:: Medical - moderate - high VTE Device Contraindication: Treatment Not Indicated VTE Drug Contraindication: N/A - Med Ordered
[2023-12-17] MEDS: hydrALAZINE HCl 10 MG TABLET PO ×2 (11:48→21:01)
[2023-12-17 16:21] LABS: Glucose, Whole Blood 202 mg/dL (60-115)
[2023-12-17] MEDS: Insulin Lispro 100 UNIT/ML 3 ML VIAL SUBCUT ×2 (17:16→21:03)
[2023-12-17 20:40] LABS: Glucose, Whole Blood 179 mg/dL (60-115)
[2023-12-17] MEDS: Aspirin Enteric Coated 81 MG TABLET.DR PO (21:01)
[2023-12-17] MEDS: Enoxaparin Sodium 30 MG/0.3 ML SYRINGE SUBCUT (21:02)
[2023-12-17] MEDS: Gabapentin 100 MG CAPSULE PO (21:03)
[2023-12-18] VITALS (9 sets, daily range): BP systolic 115–145; BP diastolic 58–85; PULSE 63–80; RESP 14–20; TEMP 36.4–37.1; O2SAT 94–99
[2023-12-18 07:19] LABS: Hematocrit 22.7 % (37.0-47.0); Hemoglobin 7.8 g/dl (12.0-16.0); Mean Corpuscular HGB Conc 34.4 g/dl (31.0-35.0); Mean Corpuscular Hemoglobin 35.3 pg (27.0-33.0); Mean Corpuscular Volume 102.7 fL (80.0-98.0); Mean Platelet Volume 10.1 fL (9.4-12.3); Platelet Count 169 X10*3/uL (160-400); Red Blood Count 2.21 X10*6/uL (4.20-5.50); Red Cell Distribution Width 14.5 % (11.0-16.0); White Blood Count 6.1 X10*3/uL (4.8-10.8)
[2023-12-18 07:23] LABS: Anion Gap 16 (12-20); Blood Urea Nitrogen 45 mg/dL (9-16); Calcium 8.8 mg/dL (8.4-10.2); Carbon Dioxide 26 mmol/L (22-29); Chloride 106 mmol/L (96-108); Creatinine Clr Calc Pharmacy 22.4; Estimated Glomerular Filt Rate 28; Glucose Random 102 mg/dL (60-115); Magnesium 2.3 mg/dL (1.6-2.6); Potassium 3.2 mmol/L (3.3-5.1); Sodium 145 mmol/L (135-145)
[2023-12-18 07:33] LABS: Glucose, Whole Blood 110 mg/dL (60-115)
[2023-12-18] MEDS: Furosemide 200 MG in 0.9 % Sodium Chloride 80 ML IVCONT (08:37)
[2023-12-18] MEDS: 0.9 % Sodium Chloride Flush 3 ML SYRINGE IVFLUSH ×2 (08:41→16:32)
[2023-12-18] MEDS: Atorvastatin Calcium 80 MG TABLET PO (08:42)
[2023-12-18] MEDS: carvediloL 6.25 MG TABLET PO ×2 (08:42→21:03)
[2023-12-18] MEDS: Folic Acid 1 MG TABLET PO (08:42)
[2023-12-18] MEDS: Cyanocobalamin (Vitamin B-12) 1,000 MCG TABLET 5000 MCG PO (08:42)
[2023-12-18] MEDS: Ascorbic Acid 500 MG TABLET PO (08:42)
[2023-12-18] MEDS: allopurinoL 300 MG TABLET PO (08:42)
[2023-12-18] MEDS: Clopidogrel Bisulfate 75 MG TABLET PO (08:42)
[2023-12-18] MEDS: hydrALAZINE HCl 10 MG TABLET PO (08:43)
[2023-12-18] MEDS: Potassium Chloride ER 20 MEQ TAB.ER.PRT PO (08:49)
--- NOTE | 2023-12-18 10:20 | MHC.CM.PN ---
Per ROUNDS discussion, Patient is not yet medically cleared for dc (Lasix Drip); PT is recommending Outpatient Services and CM will continue to follow.
--- NOTE | 2023-12-18 10:52 | PM.PNCARD ---
Subjective Subjective Date of Service: 12/18/23 Principal diagnosis: CHF Interval history: Patient says she is feeling better although she has only diuresed about-500 cc. She says she has much improved in terms of able to breathe better. She still has orthopnea. Still has significant shortness of breath. Echocardiogram shows worsening LV ejection fraction worsening mitral regurgitation. She denies any chest pain. Creatinine is improved marginally. Review of Systems Constitutional: Reports no additional constitutional complaints Cardiovascular: Denies Abdominal Distension, Denies chest pain, Denies leg edema, Denies lightheadedness, Denies Loss of Consciousness, Denies palpitations, Reports dyspnea on exertion and Reports orthopnea Respiratory: Reports no additional respiratory complaints and Reports dyspnea on exertion Reports system reviewed and no additional complaints, except as documented Endocrine: Denies palpitations Physical Exam Vital Signs: Last Vital Signs Temp 97.5 F 12/18/23 07:19 Pulse 76 12/18/23 07:19 Resp 16 12/18/23 07:19 BP 144/85 H 12/18/23 07:19 Pulse Ox 94 12/18/23 07:19 O2 Del Method Nasal Cannula 12/18/23 07:19 O2 Flow Rate 2 12/18/23 07:19 BMI result Body Mass Index 26.0 Const General: cooperative, alert, awake and in distress mild and respiratory Nutritional Appearance: thin Orientation/consciousness: patient oriented x3 HEENT Head: Yes normocephalic and Yes atraumatic Neck Neck: Yes trachea midline, Yes supple and Yes JVD Resp Effort & Inspection: normal respiratory effort Auscultation: crackles bilateral at the base Cardio Jugular venous distension: JVD Palpation: normal PMI Rate: regular rate Rhythm: regular rhythm Heart sounds: S1 normal heart sound present, S2 normal heart sound present, no click, no gallops and no murmurs GI Auscultation: normal bowel sounds Skin General skin exam: no rashes or lesions noted and ecchymosis Neuro General: patient oriented x3 and no focal motor deficits Extrem General: Yes no clubbing, cyanosis or edema Objective Labs and Meds 12/18/23 06:40 12/18/23 06:40 Lab results: Laboratory Results - last 24 hr 12/17/23 12/17/23 12/17/23 10:54 16:13 19:49 WBC RBC Hgb Hct MCV MCH MCHC RDW Plt Count MPV Absolute Nucleated RBC Nucleated RBC % (auto) Sodium Potassium Chloride Carbon Dioxide Anion Gap BUN Creatinine Estim Creat Clear Calc Estimated GFR POC Glucose 144 H 202 H 179 H Random Glucose Calcium Magnesium Blood Type Antibody Screen 12/18/23 12/18/23 12/18/23 06:40 07:25 08:41 WBC 6.1 RBC 2.21 L Hgb 7.8 L Hct 22.7 L MCV 102.7 H MCH 35.3 H MCHC 34.4 RDW 14.5 Plt Count 169 MPV 10.1 Absolute Nucleated RBC 0.000 Nucleated RBC % (auto) 0.0 Sodium 145 Potassium 3.2 L Chloride 106 Carbon Dioxide 26 Anion Gap 16 BUN 45 H Creatinine 1.78 H Estim Creat Clear Calc 22.4 Estimated GFR 28 POC Glucose 110 Random Glucose 102 Calcium 8.8 Magnesium 2.3 Blood Type B Positive Antibody Screen NEGATIVE Progress Note: A&P Assessment and plan (1) Acute exacerbation of CHF (congestive heart failure): Status: Acute Assessment and Plan: Acute decompensated congestive heart failure with worsening LV systolic function as well as worsening mitral regurgitation which is concerning. However she has responded diuretic therapy but diuresis is not robust. Her symptoms have improved and creatinine is going in the right direction. Will continue IV diuresis but boost with metolazone 2.5 mg daily. Strict intake and output chart needs to be pursued. Continue to monitor BNP and BNP tomorrow. Replace electrolytes as needed. Maximize hydralazine therapy to 25 mg b.i.d.. Add Jardiance 10 mg to her regimen. Will continue follow closely. Continue carvedilol therapy. May require cardiac catheterization again to evaluate for hemodynamics as well as progressive CAD which is less likely although will need to be ruled out. Would wait and do it as outpatient once her renal function has stabilized. May also benefit from CardioMEMS. Transfused to hematocrit to 30. Will follow with you Time Spent With Patient Time: Total time managing care of this patient today ____ minutes. Progress Note: Quality Stroke Does the patient have a stroke diagnosis?: No Procedures Date of Service Date of Service: 12/18/23
[2023-12-18 11:11] LABS: Glucose, Whole Blood 270 mg/dL (60-115)
--- NOTE | 2023-12-18 12:05 | MHC.CM.PN ---
Patient is active with [facility]. CM will follow.
[2023-12-18] MEDS: metOLazone 2.5 MG TABLET PO (12:08)
[2023-12-18] MEDS: Insulin Lispro 100 UNIT/ML 3 ML VIAL SUBCUT ×2 (12:09→21:05)
[2023-12-18] MEDS: diphenhydrAMINE HCL 25 MG CAPSULE PO (12:09)
[2023-12-18] MEDS: Acetaminophen 325 MG TABLET 650 MG PO (12:09)
--- NOTE | 2023-12-18 14:30 | HO.PM.IMPN ---
Subjective Subjective Date of Service: 12/18/23 Interval History: dyspnea improved but still has significant orthopnea; no chest pain and no edema Review of Systems Review of Systems: Yes all other systems are reviewed and are negative Physical Exam Vital Signs: Vital Signs: Last Vital Signs Temp 97.8 F 12/18/23 13:18 Pulse 80 12/18/23 13:18 Resp 18 12/18/23 13:18 BP 124/58 L 12/18/23 13:18 Pulse Ox 97 12/18/23 11:37 O2 Del Method Nasal Cannula 12/18/23 11:37 O2 Flow Rate 2 12/18/23 11:37 BMI result Body Mass Index 26.0 Gen: in no acute distress HEENT: sclera anicteric, moist mucus membranes Neck: supple, JVD present Lungs: bibasilar inspiratory crackles Heart: regular rate and rhythm, no murmurs Abd: soft, non-tender, non-distended Ext: no edema Skin: warm/well-perfused Neuro: alert and oriented x3, no focal findings Psych: appropriate affect Objective Data Active Medications Acetaminophen (Acetaminophen 325 Mg Tablet) 650 mg PO Q6H PRN PRN Reason: Pain, Mild (Pain Scale 1-3), fever or headache Last Admin: 12/18/23 12:09 Dose: 650 mg Documented By: ELENA Allopurinol (Allopurinol 300 Mg Tablet) 300 mg PO DAILY [facility] Last Admin: 12/18/23 08:42 Dose: 300 mg Documented By: ELENA Ascorbic Acid (Ascorbic Acid 500 Mg Tablet) 500 mg PO DAILY [facility] Last Admin: 12/18/23 08:42 Dose: 500 mg Documented By: ELENA Aspirin (Aspirin Enteric Coated 81 Mg Tablet.) 81 mg PO BEDTIME [facility] Last Admin: 12/17/23 21:01 Dose: 81 mg Documented By: NICOLA Atorvastatin Calcium (Atorvastatin Calcium 80 Mg Tablet) 80 mg PO DAILY [facility] Last Admin: 12/18/23 08:42 Dose: 80 mg Documented By: ELENA Calcium Carbonate (Calcium Carbonate 750 Mg Tab.Chew) 750 mg PO Q4H PRN PRN Reason: Heartburn Last Admin: 12/15/23 03:57 Dose: 750 mg Documented By: ELY Carvedilol (Carvedilol 6.25 Mg Tablet) 6.25 mg PO BID [facility]; Protocol Last Admin: 12/18/23 08:42 Dose: 6.25 mg Documented By: ELENA Clopidogrel Bisulfate (Clopidogrel Bisulfate 75 Mg Tablet) 75 mg PO DAILY [facility] Last Admin: 12/18/23 08:42 Dose: 75 mg Documented By: ELENA Cyanocobalamin (Cyanocobalamin (Vitamin B-12) 1,000 Mcg Tablet) 5,000 mcg PO DAILY [facility] Last Admin: 12/18/23 08:42 Dose: 5,000 mcg Documented By: ELENA Enoxaparin Sodium (Enoxaparin Sodium 30 Mg/0.3 Ml Syringe) 30 mg SUBCUT Q24H [facility] Last Admin: 12/17/23 21:02 Dose: 30 mg Documented By: NICOLA Folic Acid (Folic Acid 1 Mg Tablet) 1 mg PO DAILY [facility] Last Admin: 12/18/23 08:42 Dose: 1 mg Documented By: ELENA Gabapentin (Gabapentin 100 Mg Capsule) 100 mg PO BEDTIME [facility] Last Admin: 12/17/23 21:03 Dose: 100 mg Documented By: NICOLA Glucose (Glucose Gel 15 Gm Gel..Gram.) 15 gm PO Q15M PRN; Protocol PRN Reason: per Hypoglycemia Standing Ord. Hydralazine HCl (Hydralazine Hcl 25 Mg Tablet) 25 mg PO BID [facility]; Protocol Dextrose (D10) 250 mls @ 750 mls/hr IV Q15M PRN; Protocol PRN Reason: per Hypoglycemia Standing Ord. Furosemide 200 mg/ Sodium (Chloride) 100 mls @ 2.5 mls/hr IVCONT .Q24H [facility] Last Admin: 12/18/23 08:37 Dose: 5 mg/hr, 2.5 mls/hr Documented By: ELENA Insulin Human Lispro (Insulin Lispro 100 Unit/Ml 3 Ml Vial) 0 unit SUBCUT QIDACHS [facility]; Protocol Last Admin: 12/18/23 12:09 Dose: 6 unit Documented By: ELENA Levothyroxine Sodium (Levothyroxine Sodium 100 Mcg Tablet) 100 mcg PO MOTUTHFRSA@0600 [facility] Last Admin: 12/17/23 05:29 Dose: 100 mcg Documented By: DOMINGUEZ Magnesium Hydroxide (Milk Of Magnesia 30 Ml Oral.Susp) 30 ml PO DAILY PRN PRN Reason: Constipation Melatonin (Melatonin 3 Mg Tablet) 6 mg PO BEDTIME PRN PRN Reason: Insomnia Non-Formulary Medication (Exemestane) 25 mg PO DAILY [facility] Ondansetron HCl (Ondansetron Hcl 4 Mg/2 Ml Vial) 4 mg IVPUSH Q8H PRN PRN Reason: Nausea and Vomiting Potassium Chloride (Potassium Chloride Er 20 Meq Tab.Er.Prt) 20 meq PO DAILY [facility] Last Admin: 12/18/23 08:49 Dose: 20 meq Documented By: ELENA Sodium Chloride (0.9 % Sodium Chloride Flush 3 Ml Syringe) 3 ml IVFLUSH QSHIFT [facility] Last Admin: 12/18/23 08:41 Dose: 3 ml Documented By: ELENA Labs 12/18/23 06:40 12/18/23 06:40 Labs: Laboratory Results - last 24 hr 12/17/23 12/17/23 12/18/23 16:13 19:49 06:40 MCV 102.7 H MCH 35.3 H MCHC 34.4 RDW 14.5 Plt Count 169 MPV 10.1 Absolute Nucleated RBC 0.000 Nucleated RBC % (auto) 0.0 Anion Gap 16 Estim Creat Clear Calc 22.4 Estimated GFR 28 POC Glucose 202 H 179 H Random Glucose 102 Calcium 8.8 Magnesium 2.3 Blood Type Antibody Screen Crossmatch 12/18/23 12/18/23 12/18/23 07:25 08:41 11:01 MCV MCH MCHC RDW Plt Count MPV Absolute Nucleated RBC Nucleated RBC % (auto) Anion Gap Estim Creat Clear Calc Estimated GFR POC Glucose 110 270 H Random Glucose Calcium Magnesium Blood Type B Positive Antibody Screen NEGATIVE Crossmatch See Detail Assessment and Plan (1) Acute exacerbation of CHF (congestive heart failure): Status: Acute Plan d6 78yo F with HFrEF [40% 10/22/23], HTN, HLD, chronic macrocytic anemia, R breast CA s/p lumpectomy, DM2, CKD3, gout presenting with dyspnea x 3d, found to be hypoxic from CHF exacerbation with worsening EF + severe MR AHRF due to acute/chronic HFrEF severe MR - TTE 12/16: 1. Mildly dilated left ventricle with severe LV systolic dysfunction LVEF of 20 25% with grade 3 diastolic dysfunction 2. At least moderately dilated left atrium 3. Moderate to severe mitral regurgitation due to annular dilatation as well as restricted posterior leaflet 4. Mildly dilated ascending aorta 5. Small pericardial effusion - Cardiology following - continue furosemide drip and monitor BNP/lytes/I+O; give 1-time dose of metolazone 2.5 mg daily - add empagliflozin - continue carvedilol, increase hydralazine - outpt CardioMEMS and cardiac cath TED/CKD3 - improving with diuresis, suggestive of cardiorenal syndrome chronic macrocytic anemia - transfuse 1u pRBCs slowly, recheck H+H in am, continue B12 supplementation and check B12/folate levels + FOBT hypoK - PO repletion, recheck in AM CAD s/p GREG mid-RCA [also has LCX 70% stenosis] - continue DAPT [ASA + clopidogrel], atorvastatin, carvedilol HTN - carvedilol, increase hydralazine hx breast CA - continue exemesante (if pt able to bring from home) DM2 - hold MTF, give killian-dose lispro gout - allopurinol 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 Quality Stroke Does the patient have a stroke diagnosis?: No VTE Prior VTE?: No VTE Risk Level:: Medical - moderate - high VTE Device Contraindication: Treatment Not Indicated VTE Drug Contraindication: N/A - Med Ordered
[2023-12-18 16:21] LABS: Glucose, Whole Blood 146 mg/dL (60-115)
[2023-12-18] MEDS: Empagliflozin 10 MG TABLET PO (16:32)
[2023-12-18 20:50] LABS: Glucose, Whole Blood 184 mg/dL (60-115)
[2023-12-18] MEDS: hydrALAZINE HCl 25 MG TABLET PO (21:02)
[2023-12-18] MEDS: Enoxaparin Sodium 30 MG/0.3 ML SYRINGE SUBCUT (21:03)
[2023-12-18] MEDS: Aspirin Enteric Coated 81 MG TABLET.DR PO (21:03)
[2023-12-18] MEDS: Gabapentin 100 MG CAPSULE PO (21:04)
[2023-12-19] VITALS (10 sets, daily range): BP systolic 121–169; BP diastolic 65–89; PULSE 54–75; RESP 16–20; TEMP 36.1–36.9; O2SAT 92–99
[2023-12-19 06:14] LABS: Hematocrit 30.6 % (37.0-47.0); Hemoglobin 10.7 g/dl (12.0-16.0); Mean Corpuscular Hemoglobin 35.3 pg (27.0-33.0); Mean Platelet Volume 9.4 fL (9.4-12.3); Platelet Count 177 X10*3/uL (160-400); Red Blood Count 3.03 X10*6/uL (4.20-5.50); Red Cell Distribution Width 14.4 % (11.0-16.0); White Blood Count 7.3 X10*3/uL (4.8-10.8)
[2023-12-19] MEDS: Levothyroxine Sodium 100 MCG TABLET PO (06:20)
[2023-12-19 06:36] LABS: Anion Gap 19 (12-20); Blood Urea Nitrogen 50 mg/dL (9-16); Calcium 9.8 mg/dL (8.4-10.2); Carbon Dioxide 27 mmol/L (22-29); Chloride 101 mmol/L (96-108); Creatinine Clr Calc Pharmacy 19.9; Estimated Glomerular Filt Rate 24; Glucose Random 152 mg/dL (60-115); Magnesium 2.2 mg/dL (1.6-2.6); Potassium 3.2 mmol/L (3.3-5.1); Sodium 144 mmol/L (135-145)
[2023-12-19 07:11] LABS: Glucose, Whole Blood 138 mg/dL (60-115)
[2023-12-19 07:16] LABS: Folate 17.5 ng/mL (> or = 4.0); Vitamin B12 > 2000 pg/mL (200-900)
[2023-12-19] MEDS: Clopidogrel Bisulfate 75 MG TABLET PO (08:50)
[2023-12-19] MEDS: hydrALAZINE HCl 25 MG TABLET PO ×2 (08:50→20:32)
[2023-12-19] MEDS: Ascorbic Acid 500 MG TABLET PO (08:50)
[2023-12-19] MEDS: Atorvastatin Calcium 80 MG TABLET PO (08:50)
[2023-12-19] MEDS: Empagliflozin 10 MG TABLET PO (08:50)
[2023-12-19] MEDS: Potassium Chloride ER 20 MEQ TAB.ER.PRT 40 MEQ PO (08:50)
[2023-12-19] MEDS: carvediloL 6.25 MG TABLET PO ×2 (08:50→20:33)
[2023-12-19] MEDS: allopurinoL 300 MG TABLET PO (08:51)
[2023-12-19] MEDS: Folic Acid 1 MG TABLET PO (08:51)
[2023-12-19] MEDS: 0.9 % Sodium Chloride Flush 3 ML SYRINGE IVFLUSH ×3 (08:52→20:34)
--- NOTE | 2023-12-19 09:40 | P.PNCA_ITS ---
Subjective Subjective Date of Service: 12/19/23 Principal diagnosis: CHF Interval history: Patient feeling a lot better compared to 2 days ago. Did receive her metolazone. Overall I was 2800 cc although negative balance only recorded as- 500 cc. She says she has been diuresing a lot overnight. Her creatinine has bumped to 2. Denies any chest pain. Review of Systems Constitutional: Reports weakness Cardiovascular: Denies Abdominal Distension, Denies chest pain, Denies leg edema, Denies lightheadedness, Denies Loss of Consciousness and Reports dyspnea on exertion Respiratory: Reports dyspnea on exertion Genitourinary: Reports no additional female genitourinary complaints Reports system reviewed and no additional complaints, except as documented and Reports weakness Physical Exam Vital Signs: Last Vital Signs Temp 97.0 F 12/19/23 07:24 Pulse 54 12/19/23 07:24 Resp 18 12/19/23 07:24 BP 137/80 12/19/23 07:24 Pulse Ox 97 12/19/23 09:37 O2 Del Method Room Air 12/19/23 09:37 O2 Flow Rate 2 12/19/23 07:24 BMI result Body Mass Index 26.0 Const General: cooperative, comfortable, no acute distress, alert and awake Nutritional Appearance: thin Orientation/consciousness: patient oriented x3 Neck Neck: Yes trachea midline, Yes supple and Yes no JVD Resp Effort & Inspection: normal respiratory effort Auscultation: clear to auscultation bilaterally Cardio Palpation: abnormal PMI displaced PMI Rate: regular rate Rhythm: regular rhythm Heart sounds: S1 normal heart sound present, S2 normal heart sound present, no click, no gallops and Murmur heart sound present GI Auscultation: normal bowel sounds Skin General skin exam: no rashes or lesions noted Neuro General: patient oriented x3 and no focal motor deficits Objective Labs and Meds 12/19/23 06:02 12/19/23 06:02 Lab results: Laboratory Results - last 24 hr 12/18/23 12/18/23 12/18/23 08:41 11:01 16:15 WBC RBC Hgb Hct MCV MCH MCHC RDW Plt Count MPV Absolute Nucleated RBC Nucleated RBC % (auto) Sodium Potassium Chloride Carbon Dioxide Anion Gap BUN Creatinine Estim Creat Clear Calc Estimated GFR POC Glucose 270 H 146 H Random Glucose Calcium Magnesium Vitamin B12 Folate Blood Type B Positive Antibody Screen NEGATIVE Crossmatch See Detail 12/18/23 12/19/23 12/19/23 20:36 06:02 07:01 WBC 7.3 RBC 3.03 L D Hgb 10.7 L D Hct 30.6 L D MCV 101.0 H MCH 35.3 H MCHC 35.0 RDW 14.4 Plt Count 177 MPV 9.4 Absolute Nucleated RBC 0.000 Nucleated RBC % (auto) 0.0 Sodium 144 Potassium 3.2 L Chloride 101 Carbon Dioxide 27 Anion Gap 19 BUN 50 H Creatinine 2.00 H Estim Creat Clear Calc 19.9 Estimated GFR 24 POC Glucose 184 H 138 H Random Glucose 152 H Calcium 9.8 D Magnesium 2.2 Vitamin B12 > 2000 H Folate 17.5 Blood Type Antibody Screen Crossmatch Progress Note: A&P Assessment and plan (1) Acute exacerbation of CHF (congestive heart failure): Status: Acute Assessment and Plan: Acute congestive heart failure in this elderly woman with worsened LV ejection fraction by echocardiogram in worsening mitral regurgitation. Unclear etiology. Ischemic etiology is likely. Will need ischemic workup as an outpatient including hemodynamic evaluation although given her unstable renal function will hold off and performed as an outpatient. Meanwhile continue vasodilators therapy with hydralazine. Her creatinine has bumped up and clinically heart failure syndrome seems to have significantly improved. At this point time would switch her to p.o. Bumex 2 mg daily. Heart failure education was provided. Her hematocrit has improved with transfusion. Will need to closely monitor this as an outpatient and transfuse as needed. She was also started on Jardiance therapy although she says that this was very expensive for in the past, will have case management well. Oxygen desaturation study today and physical therapy consult to prepare for discharge for tomorrow. Check BNP today Will follow with you Time Spent With Patient Time: Total time managing care of this patient today ____ minutes. Progress Note: Quality Stroke Does the patient have a stroke diagnosis?: No Procedures Date of Service Date of Service: 12/19/23
[2023-12-19 11:14] LABS: Glucose, Whole Blood 165 mg/dL (60-115)
[2023-12-19] MEDS: Insulin Lispro 100 UNIT/ML 3 ML VIAL SUBCUT ×2 (12:02→16:59)
[2023-12-19] MEDS: Cyanocobalamin (Vitamin B-12) 1,000 MCG TABLET 5000 MCG PO (12:02)
[2023-12-19] MEDS: Furosemide 200 MG in 0.9 % Sodium Chloride 80 ML IVCONT (12:30)
--- NOTE | 2023-12-19 13:09 | P.PNIM_ITS ---
Subjective Subjective Date of Service: 12/19/23 Interval History: tolerated transfusion dyspnea/orthopnea much improved Review of Systems Review of Systems: Yes all other systems are reviewed and are negative Physical Exam 2 Vital Signs: Vital Signs: Last Vital Signs Temp 97.0 F 12/19/23 11:26 Pulse 75 12/19/23 11:26 Resp 20 12/19/23 11:26 BP 123/73 12/19/23 11:26 Pulse Ox 98 12/19/23 11:26 O2 Del Method Room Air 12/19/23 11:26 O2 Flow Rate 2 12/19/23 07:24 BMI result Body Mass Index 26.0 Gen: in no acute distress HEENT: sclera anicteric, moist mucus membranes Neck: supple, no JVD Lungs: diminished Heart: regular rate and rhythm, no murmurs Abd: soft, non-tender, non-distended Ext: no edema Skin: warm/well-perfused Neuro: alert and oriented x3, no focal findings Psych: appropriate affect Objective Data Active Medications Acetaminophen (Acetaminophen 325 Mg Tablet) 650 mg PO Q6H PRN PRN Reason: Pain, Mild (Pain Scale 1-3), fever or headache Last Admin: 12/18/23 12:09 Dose: 650 mg Documented By: ELENA Allopurinol (Allopurinol 300 Mg Tablet) 300 mg PO DAILY [facility] Last Admin: 12/19/23 08:51 Dose: 300 mg Documented By: ELENA Ascorbic Acid (Ascorbic Acid 500 Mg Tablet) 500 mg PO DAILY [facility] Last Admin: 12/19/23 08:50 Dose: 500 mg Documented By: ELENA Aspirin (Aspirin Enteric Coated 81 Mg Tablet.) 81 mg PO BEDTIME [facility] Last Admin: 12/18/23 21:03 Dose: 81 mg Documented By: JOAN Atorvastatin Calcium (Atorvastatin Calcium 80 Mg Tablet) 80 mg PO DAILY [facility] Last Admin: 12/19/23 08:50 Dose: 80 mg Documented By: ELENA Calcium Carbonate (Calcium Carbonate 750 Mg Tab.Chew) 750 mg PO Q4H PRN PRN Reason: Heartburn Last Admin: 12/15/23 03:57 Dose: 750 mg Documented By: ELY Carvedilol (Carvedilol 6.25 Mg Tablet) 6.25 mg PO BID [facility]; Protocol Last Admin: 12/19/23 08:50 Dose: 6.25 mg Documented By: ELENA Clopidogrel Bisulfate (Clopidogrel Bisulfate 75 Mg Tablet) 75 mg PO DAILY [facility] Last Admin: 12/19/23 08:50 Dose: 75 mg Documented By: ELENA Cyanocobalamin (Cyanocobalamin (Vitamin B-12) 1,000 Mcg Tablet) 5,000 mcg PO DAILY [facility] Last Admin: 12/19/23 12:02 Dose: 5,000 mcg Documented By: ELENA Empagliflozin (Empagliflozin 10 Mg Tablet) 10 mg PO DAILY [facility] Last Admin: 12/19/23 08:50 Dose: 10 mg Documented By: ELENA Enoxaparin Sodium (Enoxaparin Sodium 30 Mg/0.3 Ml Syringe) 30 mg SUBCUT Q24H [facility] Last Admin: 12/18/23 21:03 Dose: 30 mg Documented By: JOAN Folic Acid (Folic Acid 1 Mg Tablet) 1 mg PO DAILY [facility] Last Admin: 12/19/23 08:51 Dose: 1 mg Documented By: ELENA Gabapentin (Gabapentin 100 Mg Capsule) 100 mg PO BEDTIME [facility] Last Admin: 12/18/23 21:04 Dose: 100 mg Documented By: JOAN Glucose (Glucose Gel 15 Gm Gel..Gram.) 15 gm PO Q15M PRN; Protocol PRN Reason: per Hypoglycemia Standing Ord. Hydralazine HCl (Hydralazine Hcl 25 Mg Tablet) 25 mg PO BID [facility]; Protocol Last Admin: 12/19/23 08:50 Dose: 25 mg Documented By: ELENA Dextrose (D10) 250 mls @ 750 mls/hr IV Q15M PRN; Protocol PRN Reason: per Hypoglycemia Standing Ord. Furosemide 200 mg/ Sodium (Chloride) 100 mls @ 2.5 mls/hr IVCONT .Q24H [facility] Last Admin: 12/19/23 12:30 Dose: 5 mg/hr, 2.5 mls/hr Documented By: ELENA Insulin Human Lispro (Insulin Lispro 100 Unit/Ml 3 Ml Vial) 0 unit SUBCUT QIDACHS [facility]; Protocol Last Admin: 12/19/23 12:02 Dose: 2 unit Documented By: ELENA Levothyroxine Sodium (Levothyroxine Sodium 100 Mcg Tablet) 100 mcg PO MOTUTHFRSA@0600 [facility] Last Admin: 12/19/23 06:20 Dose: 100 mcg Documented By: JOAN Magnesium Hydroxide (Milk Of Magnesia 30 Ml Oral.Susp) 30 ml PO DAILY PRN PRN Reason: Constipation Melatonin (Melatonin 3 Mg Tablet) 6 mg PO BEDTIME PRN PRN Reason: Insomnia Pt Own (Exemestane (25 Mg Tablet)) 25 mg PO DAILY [facility] Last Admin: 12/19/23 09:00 Dose: 25 mg Documented By: ELENA Ondansetron HCl (Ondansetron Hcl 4 Mg/2 Ml Vial) 4 mg IVPUSH Q8H PRN PRN Reason: Nausea and Vomiting Potassium Chloride (Potassium Chloride Er 20 Meq Tab.Er.Prt) 40 meq PO DAILY [facility] Last Admin: 12/19/23 08:50 Dose: 40 meq Documented By: ELENA Sodium Chloride (0.9 % Sodium Chloride Flush 3 Ml Syringe) 3 ml IVFLUSH QSHIFT [facility] Last Admin: 12/19/23 08:52 Dose: 3 ml Documented By: ELENA Labs 12/19/23 06:02 12/19/23 06:02 Labs: Laboratory Results - last 24 hr 12/18/23 12/18/23 12/18/23 08:41 16:15 20:36 MCV MCH MCHC RDW Plt Count MPV Absolute Nucleated RBC Nucleated RBC % (auto) Anion Gap Estim Creat Clear Calc Estimated GFR POC Glucose 146 H 184 H Random Glucose Calcium Magnesium Vitamin B12 Folate Crossmatch See Detail 12/19/23 12/19/23 12/19/23 06:02 07:01 10:59 MCV 101.0 H MCH 35.3 H MCHC 35.0 RDW 14.4 Plt Count 177 MPV 9.4 Absolute Nucleated RBC 0.000 Nucleated RBC % (auto) 0.0 Anion Gap 19 Estim Creat Clear Calc 19.9 Estimated GFR 24 POC Glucose 138 H 165 H Random Glucose 152 H Calcium 9.8 D Magnesium 2.2 Vitamin B12 > 2000 H Folate 17.5 Crossmatch Microbiology Microbiology Results: Microbiology 12/13/23 13:41 Blood Culture - Final Blood - Venous No growth after 5 days. 12/13/23 13:09 Blood Culture - Final Blood - Venous No growth after 5 days. Assessment and Plan (1) Acute exacerbation of CHF (congestive heart failure): Status: Acute Plan d7 78yo F with HFrEF [40% 10/22/23], HTN, HLD, chronic macrocytic anemia, R breast CA s/p lumpectomy, DM2, CKD3, gout presenting with dyspnea x 3d, found to be hypoxic from CHF exacerbation with worsening EF + severe MR AHRF due to acute/chronic HFrEF severe MR - TTE 12/16: 1. Mildly dilated left ventricle with severe LV systolic dysfunction LVEF of 20 25% with grade 3 diastolic dysfunction 2. At least moderately dilated left atrium 3. Moderate to severe mitral regurgitation due to annular dilatation as well as restricted posterior leaflet 4. Mildly dilated ascending aorta 5. Small pericardial effusion - Cardiology following - appears euvolemic now; will stop furosemide drip [also got metolazone yesterday]; recheck lytes + BNP in AM - added empagliflozin, check cost - continue carvedilol, increased hydralazine - outpt CardioMEMS and cardiac cath TED/CKD3 - cardiorenal vs prerenal; recheck BMP in AM chronic macrocytic anemia - transfused 1u pRBCs 12/17 with appropriate response in H+H hypoK - increase PO maintenance dose CAD s/p GREG mid-RCA [also has LCX 70% stenosis] - continue DAPT [ASA + clopidogrel], atorvastatin, carvedilol HTN - carvedilol, increased hydralazine hx breast CA - continue exemestane DM2 - hold MTF, give killian-dose lispro gout - allopurinol 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 Quality Stroke Does the patient have a stroke diagnosis?: No VTE Prior VTE?: No VTE Risk Level:: Medical - moderate - high VTE Device Contraindication: Treatment Not Indicated VTE Drug Contraindication: N/A - Med Ordered
[2023-12-19] MEDS: Bumetanide 1 MG TABLET 2 MG PO (13:43)
[2023-12-19 15:55] LABS: Glucose, Whole Blood 260 mg/dL (60-115)
[2023-12-19] MEDS: Gabapentin 100 MG CAPSULE PO (20:32)
[2023-12-19] MEDS: Enoxaparin Sodium 30 MG/0.3 ML SYRINGE SUBCUT (20:33)
[2023-12-19] MEDS: Aspirin Enteric Coated 81 MG TABLET.DR PO (20:33)
[2023-12-19 20:39] LABS: Glucose, Whole Blood 151 mg/dL (60-115)
[2023-12-20] VITALS (7 sets, daily range): BP systolic 113–145; BP diastolic 65–90; PULSE 60–92; RESP 16–20; TEMP 36.3–37.1; O2SAT 92–97
[2023-12-20] MEDS: Levothyroxine Sodium 100 MCG TABLET PO (06:17)
[2023-12-20 07:29] LABS: Glucose, Whole Blood 159 mg/dL (60-115)
[2023-12-20 07:52] LABS: Anion Gap 20 (12-20); Blood Urea Nitrogen 60 mg/dL (9-16); Calcium 10.4 mg/dL (8.4-10.2); Carbon Dioxide 27 mmol/L (22-29); Chloride 98 mmol/L (96-108); Creatinine Clr Calc Pharmacy 17.5; Estimated Glomerular Filt Rate 21; Glucose Random 161 mg/dL (60-115); Magnesium 2.6 mg/dL (1.6-2.6); Potassium 3.5 mmol/L (3.3-5.1); Sodium 141 mmol/L (135-145)
[2023-12-20 07:57] LABS: B Type Natriuretic Peptide 1290 pg/mL (<100)
[2023-12-20] MEDS: Ascorbic Acid 500 MG TABLET PO (08:31)
[2023-12-20] MEDS: Cyanocobalamin (Vitamin B-12) 1,000 MCG TABLET 5000 MCG PO (08:31)
[2023-12-20] MEDS: hydrALAZINE HCl 25 MG TABLET PO ×2 (08:31→20:31)
[2023-12-20] MEDS: allopurinoL 300 MG TABLET PO (08:31)
[2023-12-20] MEDS: Empagliflozin 10 MG TABLET PO (08:31)
[2023-12-20] MEDS: Atorvastatin Calcium 80 MG TABLET PO (08:31)
[2023-12-20] MEDS: Folic Acid 1 MG TABLET PO (08:32)
[2023-12-20] MEDS: 0.9 % Sodium Chloride Flush 3 ML SYRINGE IVFLUSH ×2 (08:32→16:51)
[2023-12-20] MEDS: carvediloL 6.25 MG TABLET PO ×2 (08:32→20:31)
[2023-12-20] MEDS: Potassium Chloride ER 20 MEQ TAB.ER.PRT 40 MEQ PO (08:32)
[2023-12-20] MEDS: Clopidogrel Bisulfate 75 MG TABLET PO (08:32)
[2023-12-20] MEDS: Insulin Lispro 100 UNIT/ML 3 ML VIAL SUBCUT ×3 (08:33→16:50)
[2023-12-20 10:54] LABS: Glucose, Whole Blood 298 mg/dL (60-115)
--- NOTE | 2023-12-20 11:06 | PM.PNCARD ---
Subjective Subjective Date of Service: 12/20/23 Principal diagnosis: CHF Interval history: Patient is breathing a lot better but overnight was noted to have low oxygen was put on overnight oximetry. No worsening shortness of breath with exertion. Appears clinically much stable. Creatinine has gone up to 2.2. Bumex was held today. Getting all other medications. Blood pressure is stable. Review of Systems Constitutional: Reports weakness Cardiovascular: Reports no additional cardiovascular complaints Respiratory: Reports other (Low oxygen at nighttime) Reports system reviewed and no additional complaints, except as documented and Reports weakness Physical Exam Vital Signs: Last Vital Signs Temp 97.3 F 12/20/23 07:15 Pulse 67 12/20/23 07:15 Resp 20 12/20/23 07:15 BP 130/65 12/20/23 07:15 Pulse Ox 97 12/20/23 07:15 O2 Del Method Nasal Cannula 12/20/23 07:15 O2 Flow Rate 2 12/20/23 07:15 BMI result Body Mass Index 26.0 Const General: cooperative, comfortable, no acute distress, alert and awake Nutritional Appearance: thin Orientation/consciousness: patient oriented x3 Neck Neck: Yes trachea midline, Yes supple and Yes no JVD Resp Effort & Inspection: normal respiratory effort Auscultation: clear to auscultation bilaterally Cardio Palpation: abnormal PMI displaced PMI Rate: regular rate Rhythm: regular rhythm Heart sounds: S1 normal heart sound present, S2 normal heart sound present, no click, no gallops and Murmur heart sound present GI Auscultation: normal bowel sounds Skin General skin exam: no rashes or lesions noted Neuro General: patient oriented x3 and no focal motor deficits Objective Labs and Meds 12/19/23 06:02 12/20/23 07:03 Lab results: Laboratory Results - last 24 hr 12/19/23 12/19/23 12/19/23 10:59 15:46 20:34 Sodium Potassium Chloride Carbon Dioxide Anion Gap BUN Creatinine Estim Creat Clear Calc Estimated GFR POC Glucose 165 H 260 H 151 H Random Glucose Calcium Magnesium B-Natriuretic Peptide 12/20/23 12/20/23 12/20/23 07:03 07:21 10:50 Sodium 141 Potassium 3.5 Chloride 98 Carbon Dioxide 27 Anion Gap 20 BUN 60 H Creatinine 2.27 H Estim Creat Clear Calc 17.5 Estimated GFR 21 POC Glucose 159 H 298 H Random Glucose 161 H Calcium 10.4 H D Magnesium 2.6 B-Natriuretic Peptide 1290 H Progress Note: A&P Assessment and plan (1) Acute exacerbation of CHF (congestive heart failure): Status: Acute Assessment and Plan: Acute decompensated congestive heart failure with worsening LV systolic function of unclear etiology as well as worsening mitral regurgitation. Overall prognosis guarded. She has multiple comorbidities including myelodysplasia with recurrent anemia, chronic kidney disease, CAD as well as frailty that increase her risk for future morbidity mortality including recurrent hospitalization. For now continue neurohormonal modulation with carvedilol therapy. Can not use Entresto therapy given her worsening renal function. Continue hydralazine for afterload reduction. Continue Bumex can be held today but resumed tomorrow. Will follow-up lab work next week. Discussed with her about management of heart failure. Continue maintain hematocrit over 30 and this needs to be closely followed by Hematology. Blood pressure is well optimized. Heart failure management discussed. Overnight low oxygen level may suggest pulmonary insufficiency, unclear etiology. May need further workup as outpatient. Will follow-up as outpatient in 7-10 days. Thank you for allowing me to partake in his care Time Spent With Patient Time: Total time managing care of this patient today ____ minutes. Progress Note: Quality Stroke Does the patient have a stroke diagnosis?: No Procedures Date of Service Date of Service: 12/20/23
--- NOTE | 2023-12-20 11:47 | PC.RT ---
Rt completed home O2 eval. Pt SATs >92% on RA at rest and with ambulation. Pt stated that her O2 dropped last night and nursing had to put her on O2, this was confirmed with both nurse and tech. Provider notified that nocturnal O2 is a different test and diagnosis than current home O2 eval and pt will require further testing for a nocturnal O2 order.
--- NOTE | 2023-12-20 13:59 | P.PNIM_ITS ---
Subjective Subjective Date of Service: 12/20/23 Interval History: feels better though desaturated overnight SCr up Review of Systems Review of Systems: Yes all other systems are reviewed and are negative Physical Exam 2 Vital Signs: Vital Signs: Last Vital Signs Temp 98.0 F 12/20/23 11:13 Pulse 65 12/20/23 13:47 Resp 20 12/20/23 11:13 BP 145/70 H 12/20/23 13:47 Pulse Ox 93 12/20/23 13:47 O2 Del Method Nasal Cannula 12/20/23 11:13 O2 Flow Rate 2 12/20/23 11:13 BMI result Body Mass Index 26.0 Gen: in no acute distress HEENT: sclera anicteric, moist mucus membranes Neck: supple, no JVD Lungs: diminished Heart: regular rate and rhythm, no murmurs Abd: soft, non-tender, non-distended Ext: no edema Skin: warm/well-perfused Neuro: alert and oriented x3, no focal findings Psych: appropriate affect Objective Data Active Medications Acetaminophen (Acetaminophen 325 Mg Tablet) 650 mg PO Q6H PRN PRN Reason: Pain, Mild (Pain Scale 1-3), fever or headache Last Admin: 12/18/23 12:09 Dose: 650 mg Documented By: ELENA Allopurinol (Allopurinol 300 Mg Tablet) 300 mg PO DAILY [facility] Last Admin: 12/20/23 08:31 Dose: 300 mg Documented By: BENTLEY Ascorbic Acid (Ascorbic Acid 500 Mg Tablet) 500 mg PO DAILY [facility] Last Admin: 12/20/23 08:31 Dose: 500 mg Documented By: BENTLEY Aspirin (Aspirin Enteric Coated 81 Mg Tablet.) 81 mg PO BEDTIME [facility] Last Admin: 12/19/23 20:33 Dose: 81 mg Documented By: JOAN Atorvastatin Calcium (Atorvastatin Calcium 80 Mg Tablet) 80 mg PO DAILY [facility] Last Admin: 12/20/23 08:31 Dose: 80 mg Documented By: BENTLEY Bumetanide (Bumetanide 1 Mg Tablet) 2 mg PO DAILY [facility]; Protocol Last Admin: 12/19/23 13:43 Dose: 2 mg Documented By: ELENA Calcium Carbonate (Calcium Carbonate 750 Mg Tab.Chew) 750 mg PO Q4H PRN PRN Reason: Heartburn Last Admin: 12/15/23 03:57 Dose: 750 mg Documented By: ELY Carvedilol (Carvedilol 6.25 Mg Tablet) 6.25 mg PO BID [facility]; Protocol Last Admin: 12/20/23 08:32 Dose: 6.25 mg Documented By: BENTLEY Clopidogrel Bisulfate (Clopidogrel Bisulfate 75 Mg Tablet) 75 mg PO DAILY [facility] Last Admin: 12/20/23 08:32 Dose: 75 mg Documented By: BENTLEY Cyanocobalamin (Cyanocobalamin (Vitamin B-12) 1,000 Mcg Tablet) 5,000 mcg PO DAILY [facility] Last Admin: 12/20/23 08:31 Dose: 5,000 mcg Documented By: BENTLEY Empagliflozin (Empagliflozin 10 Mg Tablet) 10 mg PO DAILY [facility] Last Admin: 12/20/23 08:31 Dose: 10 mg Documented By: BENTLEY Enoxaparin Sodium (Enoxaparin Sodium 30 Mg/0.3 Ml Syringe) 30 mg SUBCUT Q24H [facility] Last Admin: 12/19/23 20:33 Dose: 30 mg Documented By: JOAN Folic Acid (Folic Acid 1 Mg Tablet) 1 mg PO DAILY [facility] Last Admin: 12/20/23 08:32 Dose: 1 mg Documented By: BENTLEY Gabapentin (Gabapentin 100 Mg Capsule) 100 mg PO BEDTIME [facility] Last Admin: 12/19/23 20:32 Dose: 100 mg Documented By: JOAN Glucose (Glucose Gel 15 Gm Gel..Gram.) 15 gm PO Q15M PRN; Protocol PRN Reason: per Hypoglycemia Standing Ord. Hydralazine HCl (Hydralazine Hcl 25 Mg Tablet) 25 mg PO BID [facility]; Protocol Last Admin: 12/20/23 08:31 Dose: 25 mg Documented By: BENTLEY Dextrose (D10) 250 mls @ 750 mls/hr IV Q15M PRN; Protocol PRN Reason: per Hypoglycemia Standing Ord. Insulin Human Lispro (Insulin Lispro 100 Unit/Ml 3 Ml Vial) 0 unit SUBCUT QIDACHS [facility]; Protocol Last Admin: 12/20/23 11:57 Dose: 6 unit Documented By: BENTLYE Levothyroxine Sodium (Levothyroxine Sodium 100 Mcg Tablet) 100 mcg PO MOTUTHFRSA@0600 [facility] Last Admin: 12/20/23 06:17 Dose: 100 mcg Documented By: JOAN Magnesium Hydroxide (Milk Of Magnesia 30 Ml Oral.Susp) 30 ml PO DAILY PRN PRN Reason: Constipation Melatonin (Melatonin 3 Mg Tablet) 6 mg PO BEDTIME PRN PRN Reason: Insomnia Pt Own (Exemestane (25 Mg Tablet)) 25 mg PO DAILY [facility] Last Admin: 12/20/23 08:34 Dose: 25 mg Documented By: BENTLEY Ondansetron HCl (Ondansetron Hcl 4 Mg/2 Ml Vial) 4 mg IVPUSH Q8H PRN PRN Reason: Nausea and Vomiting Potassium Chloride (Potassium Chloride Er 20 Meq Tab.Er.Prt) 40 meq PO DAILY [facility] Last Admin: 12/20/23 08:32 Dose: 40 meq Documented By: BENTLEY Sodium Chloride (0.9 % Sodium Chloride Flush 3 Ml Syringe) 3 ml IVFLUSH QSHIFT [facility] Last Admin: 12/20/23 08:32 Dose: 3 ml Documented By: BENTLEY Labs 12/19/23 06:02 12/20/23 07:03 Labs: Laboratory Results - last 24 hr 12/19/23 12/19/23 12/20/23 15:46 20:34 07:03 Anion Gap 20 Estim Creat Clear Calc 17.5 Estimated GFR 21 POC Glucose 260 H 151 H Random Glucose 161 H Calcium 10.4 H D Magnesium 2.6 B-Natriuretic Peptide 1290 H 12/20/23 12/20/23 07:21 10:50 Anion Gap Estim Creat Clear Calc Estimated GFR POC Glucose 159 H 298 H Random Glucose Calcium Magnesium B-Natriuretic Peptide Assessment and Plan (1) Acute exacerbation of CHF (congestive heart failure): Status: Acute Plan d8 78yo F with HFrEF [40% 10/22/23], HTN, HLD, chronic macrocytic anemia, R breast CA s/p lumpectomy, DM2, CKD3, gout presenting with dyspnea x 3d, found to be hypoxic from CHF exacerbation with worsening EF[now 20%] + severe MR AHRF due to acute/chronic HFrEF severe MR - TTE 12/16: 1. Mildly dilated left ventricle with severe LV systolic dysfunction LVEF of 20 25% with grade 3 diastolic dysfunction 2. At least moderately dilated left atrium 3. Moderate to severe mitral regurgitation due to annular dilatation as well as restricted posterior leaflet 4. Mildly dilated ascending aorta 5. Small pericardial effusion - Cardiology following and will follow as outpatient- needs ischemic workup and possibly CardioMEMS - transitioned from furosemide drip to PO bumetanide 2 mg daily yesterday; will hold today due to TED - added empagliflozin but will not be able to afford as outpt - continue carvedilol, increased hydralazine TED/CKD3 - likely prerenal now; will hold bumetanide and recheck BMP tomorrow and again on 12/24/23 as outpt nocturnal hypoxemia - overnight oximetry test chronic macrocytic anemia - transfused 1u pRBCs 12/17 with appropriate response in H+H hypoK - on PO maintenance CAD s/p GREG mid-RCA [also has LCX 70% stenosis] - continue DAPT [ASA + clopidogrel], atorvastatin, carvedilol HTN - carvedilol, increased hydralazine hx breast CA - continue exemestane DM2 - hold MTF, give killian-dose lispro gout - allopurinol 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 Quality Stroke Does the patient have a stroke diagnosis?: No VTE Prior VTE?: No VTE Risk Level:: Medical - moderate - high VTE Device Contraindication: Treatment Not Indicated VTE Drug Contraindication: N/A - Med Ordered
--- NOTE | 2023-12-20 14:23 | MHC.CM.PN ---
EMR REVIEWED, PT NOW W/NOCTURNAL HYPOXEMIA AND TED, NO PLAN FOR DC AT THIS TIME, [facility] REPORTING PT IS NOT ACTIVE HOWEVER ARE FOLLOWING, CM WILL CONT TO FOLLOW DC NEEDS.
[2023-12-20 16:29] LABS: Glucose, Whole Blood 304 mg/dL (60-115)
[2023-12-20 20:07] LABS: Glucose, Whole Blood 130 mg/dL (60-115)
[2023-12-20] MEDS: Enoxaparin Sodium 30 MG/0.3 ML SYRINGE SUBCUT (20:31)
[2023-12-20] MEDS: Aspirin Enteric Coated 81 MG TABLET.DR PO (20:32)
[2023-12-20] MEDS: Gabapentin 100 MG CAPSULE PO (20:32)
--- NOTE | 2023-12-20 23:10 | PC.RT ---
Addendum entered by Buck Dennis 12/21/23 04:44: Sleep study end @ 444 Original Note: Sleep study start @ 2310; pt on RA sat 91%. RN aware
[2023-12-21] VITALS: BP 100/57; PULSE 74; RESP 20; TEMP 36.3; O2SAT 97
[2023-12-21 04:00] VITALS: BP 105/61; PULSE 80; RESP 20; TEMP 36.1; O2SAT 97
[2023-12-21 05:12] LABS: ABG Base Excess 5.2 mmol/L; ABG HCO3 28 mmol/L (22-26); ABG pCO2 38 mmHg (32-45); ABG pH 7.48 (7.35-7.45); ABG pO2 58 mmHg (83-108)
[2023-12-21 05:14] LABS: ABG Refer to POC result
[2023-12-21] MEDS: Levothyroxine Sodium 100 MCG TABLET PO (06:18)
[2023-12-21 06:51] LABS: Anion Gap 19 (12-20); Blood Urea Nitrogen 70 mg/dL (9-16); Calcium 9.9 mg/dL (8.4-10.2); Carbon Dioxide 25 mmol/L (22-29); Chloride 99 mmol/L (96-108); Creatinine Clr Calc Pharmacy 16.1; Estimated Glomerular Filt Rate 19; Glucose Random 192 mg/dL (60-115); Potassium 3.9 mmol/L (3.3-5.1); Sodium 139 mmol/L (135-145)
[2023-12-21 07:55] VITALS: BP 117/69; PULSE 65; RESP 18; TEMP 36.7; O2SAT 98
[2023-12-21 08:13] LABS: Glucose, Whole Blood 170 mg/dL (60-115)
[2023-12-21] MEDS: Clopidogrel Bisulfate 75 MG TABLET PO (08:41)
[2023-12-21] MEDS: Potassium Chloride ER 20 MEQ TAB.ER.PRT 40 MEQ PO (08:41)
[2023-12-21] MEDS: Ascorbic Acid 500 MG TABLET PO (08:41)
[2023-12-21] MEDS: carvediloL 6.25 MG TABLET PO (08:41)
[2023-12-21] MEDS: Atorvastatin Calcium 80 MG TABLET PO (08:41)
[2023-12-21] MEDS: Cyanocobalamin (Vitamin B-12) 1,000 MCG TABLET 5000 MCG PO (08:41)
[2023-12-21] MEDS: 0.9 % Sodium Chloride Flush 3 ML SYRINGE IVFLUSH ×2 (08:42)
[2023-12-21] MEDS: hydrALAZINE HCl 25 MG TABLET PO (08:42)
[2023-12-21] MEDS: Empagliflozin 10 MG TABLET PO (08:42)
[2023-12-21] MEDS: Folic Acid 1 MG TABLET PO (08:42)
[2023-12-21] MEDS: allopurinoL 300 MG TABLET PO (08:42)
[2023-12-21] MEDS: Insulin Lispro 100 UNIT/ML 3 ML VIAL SUBCUT ×2 (08:42→11:29)
[2023-12-21 11:11] LABS: Glucose, Whole Blood 233 mg/dL (60-115)
[2023-12-21 11:32] VITALS: BP 110/61; PULSE 74; RESP 20; TEMP 36.5; O2SAT 96
--- NOTE | 2023-12-21 11:50 | P.DS_ITS ---
DS: Providers Provider Date of Service: 12/21/23 Date of admission: 12/13/23 19:33 Primary care physician: John Avina DO Consults: 12/16/23 12:17 Consult to Cardiology Routine Consulting Provider: [facility] Reason for consultation: CHF -- guidance on diuretic therapy DS: Diagnosis Discharge Diagnosis (1) Acute exacerbation of CHF (congestive heart failure): Status: Acute DS: Summary Hospital Course Hospital Course: History and physical as per admitting provider. Pt is a 78-year-old female with a PMH significant for?HFrEF (LV 40% on 10/22/23),?HTN, HLD, chronic macrocytic anemia (diagnosed at 21 years of age), right breast cancer s/p lumpectomy, [id number] diabetes type 2, CKD 3, and gout who presents to the ED with?shortness of breath x3 days. Patient reports she received her 1st Epogen infection on Saturday of this week and since then has felt pain throughout her body. Reports her bones and muscles have been in ?excruciating pain. Also was transfused yesterday for chronic macrocytic anemia. Patient reports that for the past 3 days has been experiencing increased shortness of breath and dyspnea upon exertion. Denies fever, chills. No cough. This morning when she woke she could barely breathe and not get out of bed, which prompted her visit to the ED. is not on home O2 and reports she normally ambulates without assistance, though occasionally will use a cane. No chest pain/pressure. Denies nausea, vomiting, abdominal pain. No change to bowel or bladder habits.In the ED pt was tachycardic up to 102, hypertensive up to 153/92, and desatting into the 80s on RA, currently satting at 92% on 3L NC. Labs were significant for stable macrocytic anemia of 9.9/28.6 (around baseline), BUN 21, creatinine 1.58 (around baseline), bilirubin 1.8, ALT 40, and initial troponin 32.7. Tested negative for flu, RSV, COVID. CXR showed interval development of bilateral lower lobe infiltrates suggestive of pneumonia. Also showed unchanged mild cardiomegaly without radiographic signs of CHF. CTA of chest found no evidence of pulmonary embolism, but showed trace bilateral pleural effusions with mild cardiomegaly and dilation of left atrium and left ventricle. ?Did not find any focal consolidations within the lungs. EKG demonstrated normal sinus rhythm with nonspecific ST and T-wave abnormality. Pt was treated with IVF, ceftriaxone, and azithromycin. Pt will be admitted to the hospital for treatment and further evaluation of acute hypoxic respiratory failure in the setting of CHF exacerbation. 78-year-old woman treated for acute hypoxic respiratory failure secondary to acute on chronic heart failure with reduced ejection fraction. Initially treated with IV Lasix drip for approximately 48 hours then transition to Bumex 2 mg daily however patient developed worsening TED and Bumex was held yesterday. Creatinine today 2.48, discussed with Nephrology, okay to discharge home for follow-up labs next week. Patient was also be seeing Cardiology next week for follow-up labs as well and ischemic workup and possibly CardioMEMS. At this time she should hold her Bumex until she gets the labs unless she feels short of breath. Jardiance was added however patient reports that she will not be able to afford it and this will be discontinued at discharge. She will continue carvedilol and hydralazine. Regarding the TED on CKD stage 3 this is likely prerenal secondary to diuretics and likely from contraction alkalosis. Diuretics on hold at this time until repeat labs done. She was also noted to have nocturnal hypoxemia and overnight oximetry test did show that she will require oxygen at nighttime, discussed with respiratory therapy who assistance setting this up. Chronic microcytic anemia. Transfuse 1 unit of packed red blood cells with appropriate rise in H&H Coronary artery disease history. Continue aspirin, Plavix, statin and beta- wolf Hypertension. Continue beta-wolf and hydralazine Diabetes mellitus type 2. Continue metformin Gout. Continue allopurinol Hypothyroidism. Continue levothyroxine GERD. Continue PPI Time Attestation Discharge Coordination Time (in mins): 35 Quality: Safe Use of Opioids Does Pt have an Active Cancer Diagnosis on the Problem List?: No Quality: Stroke Does the patient have a stroke diagnosis?: No Physical Exam Vital Signs: Vital Signs: Last Vital Signs Temp 97.7 F 12/21/23 11:32 Pulse 74 12/21/23 11:32 Resp 20 12/21/23 11:32 BP 110/61 12/21/23 11:32 Pulse Ox 96 12/21/23 11:32 O2 Del Method Room Air 12/21/23 11:32 O2 Flow Rate 2 08/30/24 11:13 BMI result Body Mass Index 26.0 Appearing in no acute distress head is normocephalic atraumatic eyes pupils are PERRLA sclera is anicteric mouth throat mucous membranes are intact and moist neck is supple no lymphadenopathy, no JVD noted lung sounds are clear to auscultation heart regular rate rhythm, clear S1, S2 positive bowel sounds, abdomen is soft, nontender neuro patient is alert x3, no focal deficits DS: Data Data Completed and Pending Completed studies during hospitalization [Text1]: Procedures Transfusion of Nonautologous Red Blood Cells into Peripheral Vein, Percutaneous Approach (09/22/23) Labs on day of discharge: Laboratory Results - last 24 hr 12/20/23 12/20/23 12/21/23 15:57 20:02 05:02 Hold Purple Top O2 Saturation 87.0 ABG pH at Pt Temp 7.48 H ABG pCO2 at Pt Temp 38 ABG pO2 at Pt Temp 58 L ABG HCO3 28 H ABG Base Excess (Actual) 5.2 Sodium Potassium Chloride Carbon Dioxide Anion Gap BUN Creatinine Estim Creat Clear Calc Estimated GFR POC Glucose 304 H 130 H Random Glucose Calcium 12/21/23 12/21/23 12/21/23 06:12 08:07 11:08 Hold Purple Top SEE NOTE O2 Saturation ABG pH at Pt Temp ABG pCO2 at Pt Temp ABG pO2 at Pt Temp ABG HCO3 ABG Base Excess (Actual) Sodium 139 Potassium 3.9 Chloride 99 Carbon Dioxide 25 Anion Gap 19 BUN 70 H Creatinine 2.48 H Estim Creat Clear Calc 16.1 Estimated GFR 19 POC Glucose 170 H 233 H Random Glucose 192 H Calcium 9.9 Discharge Plan Discharge Anticipated Discharge Date/Time: 12/21/23 11:46 Patient Disposition: Home Health Service Discharge Diagnosis: Heart failure with reduced ejection fraction TED on CKD stage 3 Nocturnal hypoxemia Referrals: Jan LEE [Outside] - 1 Week John Avina DO [Primary Care Provider] - 1 Week Discharge Medications: New hydralazine 25 mg Tablet 25 mg PO BID Qty: 60 0RF Protocol: Hold for SBP< HOLD for SBP < : 90 bumetanide 1 mg Tablet 2 mg PO DAILY Qty: 60 0RF Protocol: Hold for SBP< HOLD for SBP < : 90 Continued aspirin 81 mg Tablet,Delayed Release (Dr/Ec) 81 mg PO DAILY levothyroxine 100 mcg tablet 100 mcg PO MAYELA@0600 Rx Instructions: skips sundays and wednesdays vitamin E 400 unit Tablet 450 mg PO DAILY folic acid 1 mg Tablet 1 mg PO DAILY cholecalciferol (vitamin D3) [Vitamin D3] 50 mcg (2,000 unit) Tablet 50 mcg PO DAILY cyanocobalamin (vitamin B-12) 5,000 mcg Tablet,Disintegrating 5,000 mcg PO DAILY carvedilol 6.25 mg tablet 6.25 mg PO BID rosuvastatin 20 mg tablet 20 mg PO DAILY allopurinol 300 mg tablet 300 mg PO DAILY furosemide 20 mg tablet 20 mg PO DAILY gabapentin 100 mg capsule 100 mg PO DAILY clopidogrel 75 mg tablet 75 mg PO DAILY calcium carbonate [Calcium 600] 600 mg calcium (1,500 mg) Tablet 600 mg PO DAILY ascorbic acid (vitamin C) [Vitamin C] 500 mg Tablet 500 mg PO DAILY metformin 500 mg tablet extended release 24 hr 1,000 mg PO DAILY AZO D-Mannose 500 mg capsule 500 mg PO DAILY cranberry 500 mg capsule 500 mg PO DAILY Rx Instructions: administer with meals exemestane 25 mg tablet 25 mg PO DAILY Rx Instructions: must administer after a meal Discharge Orders: Discharge Order (Routine); Ordered 12/21/23 Ordered By: Kimberly Dalton Diet: Advance to usual diet Activity on Discharge: As tolerated Stand Alone Forms: Patient Portal Discharge page Print Language: Citizen Of [place] Care Plan Goals: Check labs on Saturday including BMP Hold Bumex until you check your labs on Saturday, unless you start to develop shortness of breath You will be started on oxygen for nighttime use Health Concerns: Heart failure with reduced ejection fraction TED on CKD stage 3 Nocturnal hypoxemia Plan of Treatment: Follow up with Cardiology for next scheduled appointment Follow up with Nephrology Take all medications as prescribed Assessment: See discharge summary Patient Instructions: Empagliflozin (By mouth), Heart Failure (GEN)
--- NOTE | 2023-12-21 11:58 | MHC.CM.PN ---
Patient has been medically cleared for dc to home today, with services. Patient is not active with [facility] and she has chosen [facility], who has been made aware of today's dc. IMM addressed with Patient at bedside; original was given to her and a copy has been placed on the chart.
--- NOTE | 2023-12-24 11:43 | P.F2F_ITS ---
Encounter Date of encounter: 12/21/23 Reasons for Services Signs and symptoms assessed: Heart failure with reduced ejection fraction TED Reason for shelter: CV/CP assess and/or care Homebound: Leaving the home is medically contraindicated at this time without the asist of a device and/or another person due th the listed conditions above and below. Reason homebound: unsteady gait / fall risk Certification: Based on the above findings, I certify that this patient is confined to the home and needs intermittent shelter care, physical therapy and/or speech therapy, or continues to need occupational therapy. The patient is under my care, and I have initiated the establishment of the plan of care. The patient will be followed by a physician who will periodically review the plan of care. Time Spent With Patient Time: Total time managing care of this patient today ____ minutes.
== END 2023-12-21 13:53 | disposition home health service (06) | DRG 291 ==
LOC: HO.ED 16:20 → HO.EDOVER 19:38 → HO.S3 12-14 10:24 → HO.IMC 12-17 12:45
PROVIDERS: Family Medicine; Student in an Organized Health Care Education/Training Program; Admitting Provider Student in an Organized Health Care Education/Training Program; Emergency Provider Emergency Medicine; PCP Internal Medicine; Visit Provider Nurse Practitioner Acute Care
DX: I13.0 Hypertensive heart and chronic kidney disease with heart failure and stage 1 through stage 4 chronic kidney disease, or unspecified chronic kidney disease (principal); I50.23 Acute on chronic systolic (congestive) heart failure; J96.01 Acute respiratory failure with hypoxia; N17.9 Acute kidney failure, unspecified; D58.0 Hereditary spherocytosis; D53.9 Nutritional anemia, unspecified; N18.30 Chronic kidney disease, stage 3 unspecified; C50.919 Malignant neoplasm of unspecified site of unspecified female breast; K21.9 Gastro-esophageal reflux disease without esophagitis; M10.9 Gout, unspecified; E11.22 Type 2 diabetes mellitus with diabetic chronic kidney disease; E89.0 Postprocedural hypothyroidism; E87.6 Hypokalemia; T50.2X5A Adverse effect of carbonic-anhydrase inhibitors, benzothiadiazides and other diuretics, initial encounter; I34.0 Nonrheumatic mitral (valve) insufficiency; M35.3 Polymyalgia rheumatica; I25.10 Atherosclerotic heart disease of native coronary artery without angina pectoris; Z20.822 Contact with and (suspected) exposure to COVID-19; Z95.5 Presence of coronary angioplasty implant and graft; Z85.850 Personal history of malignant neoplasm of thyroid; Z79.82 Long term (current) use of aspirin; Z79.84 Long term (current) use of oral hypoglycemic drugs; Z79.811 Long term (current) use of aromatase inhibitors; Z79.890 Hormone replacement therapy; Z79.899 Other long term (current) drug therapy
CPT/HCPCS: 0241U; 36415; 36600; 71046; 71275; 80048; 80053; 82607; 82746; 82803; 82947; 83605; 83735; 83880; 84484; 85025; 85027; 85610; 85730; 86850; 86900; 86901; 86923; 87040; 93005; 93306; 94762; 97161; 99285; J0456; J0696; J1650; J1940; P9016; Q9957; Q9967

== ENCOUNTER 2023-12-13 19:33 | Outpatient (BNV) | payer MEDICARE, SELFPAY | END 2023-12-17 07:00 | PROVIDERS: Admitting Provider Student in an Organized Health Care Education/Training Program; Emergency Provider Emergency Medicine; PCP Internal Medicine; Visit Provider Internal Medicine Cardiovascular Disease | DX: I50.30 Unspecified diastolic (congestive) heart failure (principal); I34.0 Nonrheumatic mitral (valve) insufficiency; I35.1 Nonrheumatic aortic (valve) insufficiency; I37.1 Nonrheumatic pulmonary valve insufficiency | CPT/HCPCS: 93306 ==

== ENCOUNTER → 2023-12-13 19:33 | Outpatient (BNV) | payer MEDICARE, SELFPAY | PROVIDERS: Admitting Provider Student in an Organized Health Care Education/Training Program; Emergency Provider Emergency Medicine; PCP Internal Medicine; Visit Provider Internal Medicine Cardiovascular Disease | DX: I50.9 Heart failure, unspecified (principal) | CPT/HCPCS: 99222; 99233 ==

== ENCOUNTER → 2023-12-13 19:33 | Outpatient (BNV) | payer MEDICARE, SELFPAY | PROVIDERS: Admitting Provider Student in an Organized Health Care Education/Training Program; Emergency Provider Emergency Medicine; PCP Internal Medicine; Visit Provider Student in an Organized Health Care Education/Training Program | DX: I50.9 Heart failure, unspecified (principal) | CPT/HCPCS: 99223; 99232; 99233; 99239; G0180 ==

== ENCOUNTER 2023-12-24 14:44 | Outpatient (REF) | payer MEDICARE, SELFPAY ==
[2023-12-24 16:26] LABS: B Type Natriuretic Peptide 325 pg/mL (<100)
[2023-12-24 17:06] LABS: Alanine Aminotransferase 77 U/L (0-31); Albumin Level 4.1 g/dL (3.5-5.0); Alkaline Phosphatase 81 U/L (39-117); Anion Gap 19 (12-20); Aspartate Amino Transferase 42 U/L (5-31); Bilirubin Total 0.7 mg/dL (0.0-1.0); Blood Urea Nitrogen 76 mg/dL (9-16); Calcium 10.2 mg/dL (8.4-10.2); Carbon Dioxide 25 mmol/L (22-29); Chloride 98 mmol/L (96-108); Cholesterol 86 mg/dL (<200); Estimated Glomerular Filt Rate 15; Glucose Random 228 mg/dL (60-115); HDL Cholesterol 27 mg/dL (>40); LDL Cholesterol Calculated 29 mg/dL (<100); Potassium 4.3 mmol/L (3.3-5.1); Sodium 138 mmol/L (135-145); Total Protein 7.9 g/dL (6.5-8.0); Triglycerides 154 mg/dL (<150)
== END 2023-12-24 14:45 | disposition home or self-care (01) ==
LOC: HO.LAB 14:44
PROVIDERS: Nurse Practitioner Family; PCP Internal Medicine; Visit Provider Internal Medicine Cardiovascular Disease
DX: I50.20 Unspecified systolic (congestive) heart failure (principal); E78.5 Hyperlipidemia, unspecified; I25.10 Atherosclerotic heart disease of native coronary artery without angina pectoris; Z95.5 Presence of coronary angioplasty implant and graft; I34.0 Nonrheumatic mitral (valve) insufficiency; I50.9 Heart failure, unspecified
CPT/HCPCS: 36415; 80053; 80061; 83880

== ENCOUNTER 2023-12-30 12:39 | Outpatient (REF) | payer MEDICARE, SELFPAY ==
[2023-12-30 14:18] LABS: B Type Natriuretic Peptide 538 pg/mL (<100)
[2023-12-30 14:26] LABS: Anion Gap 18 (12-20); Blood Urea Nitrogen 54 mg/dL (9-16); Calcium 10.6 mg/dL (8.4-10.2); Carbon Dioxide 28 mmol/L (22-29); Chloride 101 mmol/L (96-108); Estimated Glomerular Filt Rate 19; Glucose Random 151 mg/dL (60-115); Potassium 4.5 mmol/L (3.3-5.1); Sodium 142 mmol/L (135-145)
== END 2023-12-30 12:40 | disposition home or self-care (01) ==
LOC: HO.LAB 12:39
PROVIDERS: PCP Internal Medicine; Referring Provider Nurse Practitioner Family; Visit Provider Internal Medicine Cardiovascular Disease
DX: I50.9 Heart failure, unspecified (principal); I50.20 Unspecified systolic (congestive) heart failure; I25.10 Atherosclerotic heart disease of native coronary artery without angina pectoris; Z95.5 Presence of coronary angioplasty implant and graft; I34.0 Nonrheumatic mitral (valve) insufficiency
CPT/HCPCS: 36415; 80048; 83880

== ENCOUNTER 2024-01-14 14:24 | Outpatient (AMB) | payer MEDICARE, SELFPAY ==
--- NOTE | 2024-01-14 15:23 | MHC.OFFVIS ---
Vital Signs 01/14/24 15:24 Height 5 ft 1 in Weight 128 lb 4.944 oz BMI 24.2 BP 132/60 Blood Pressure Location Lt brachial Position Sitting Pulse 77 Pulse Source Pulse Oximeter Intake Visit Reasons: f/u Party Chief Required: No Allergies esomeprazole [From NEXIUM] Allergy (Intermediate, Verified 01/14/24 15:27) CHEST PAIN omeprazole [From PRILOSEC] Allergy (Intermediate, Verified 01/14/24 15:27) CHEST PAIN diphenhydramine [From Benadryl] Allergy (Verified 01/14/24 15:27) Dizziness Medication List - Last Reconciled 01/14/24 by JIMMY Correa allopurinol 300 mg PO DAILY ascorbic acid (vitamin C) (Vitamin C) 500 mg PO DAILY aspirin 81 mg PO DAILY bumetanide 2 mg See Protocol PO DAILY calcium carbonate (Calcium 600) 600 mg PO DAILY carvedilol 6.25 mg PO BID cholecalciferol (vitamin D3) (Vitamin D3) 50 mcg PO DAILY clopidogrel 75 mg PO DAILY cranberry 500 mg PO DAILY cyanocobalamin (vitamin B-12) 5,000 mcg PO DAILY d-mannose (AZO D-Mannose) 500 mg PO DAILY exemestane 25 mg PO DAILY folic acid 1 mg PO DAILY gabapentin 100 mg PO DAILY hydralazine 25 mg See Protocol PO BID levothyroxine 100 mcg PO MOTUTHFRSA@0600 metformin ER 1,000 mg PO DAILY rosuvastatin 20 mg PO DAILY vitamin E 450 mg PO DAILY HPI HPI f/u: Details: Tonia is a 78-year-old female past medical history of hypertension, diabetes, chronic kidney disease, heart failure with reduced EF, nonischemic cardiomyopathy, mitral regurgitation, CAD with newer RCA stent, who was recently admitted to [facility] with decompensated heart failure. She was treated with IV Lasix and sent home with Bumex. Today she reports that her breathing is back to baseline. She reports her breathing is comfortable with activity. No PND, orthopnea or edema. She sleeps with 2 pillows which is her norm. No chest discomfort at rest or with activity. No heart palpitations, lightheadedness, presyncope, syncope, falls. She has known chronic anemia but denies any signs of bleeding. She follows with hematology. Does only light physical activities. She has a visiting nurse at home and has been getting home physical therapy. FORMERLY [facility], [facility] Medical History CAD (coronary artery disease) CHF (congestive heart failure) Cervix prolapsed into vagina History of blood transfusion (~02/01/23) Diabetes mellitus HFrEF (heart failure with reduced ejection fraction) Cardiomyopathy Normal colonoscopy Type 2 diabetes mellitus Diverticulosis Irritable bowel syndrome Pulmonary emboli GERD (gastroesophageal reflux disease) Nephrolithiasis Hypoparathyroidism Papillary thyroid carcinoma HTN (hypertension) Polymyalgia rheumatica Hyperglycemia Chronic anemia Anemia Surgical History Stented coronary artery Breast mass, right H/O endoscopy History of cholecystectomy H/O total thyroidectomy Family History Sister CHF (congestive heart failure) Daughter Breast cancer Son Kidney stones Social History Household Members: Family Household Members Other:: son Housing: House Do you presently have visiting nurse or other home services: No Alcohol intake: never Comment: Pt refuses fall risk protocol/ precautions- ambulates with steady gait Patient Tobacco Use Status: Never used Tobacco Years Smoked: 30 +/- e-Cigarette/Vaping Use: Never Used Second Hand Smoke Exposure: No service: No Current occupational status: retired Current occupation: Right Handed Review of Systems Const All systems reviewed & are unremarkable except as noted in HPI and below ENT Denies dizziness Card Denies chest pain, Denies chest pain at rest, Denies chest pain with activity, Denies rapid heart rate, Denies pedal edema, Denies edema, Denies leg edema, Denies lightheadedness, Denies palpitations, Denies dyspnea, Denies dyspnea on exertion and Denies orthopnea Resp Denies cough, Denies dyspnea and Denies dyspnea on exertion GI Denies hematochezia and Denies change in stool character Musc Reports abnormal gait (ambulates slow with cane), Denies limited range of motion, Denies muscle cramps, Reports muscle weakness, Denies numbness, Denies radiating pain into limb, Denies stiffness and Denies tingling Neuro Reports abnormal gait (ambulates slow with cane), Denies dizziness, Denies numbness and Denies tingling Endo Denies palpitations Physical Exam Vital Signs: Last Vital Signs Pulse 77 01/14/24 15:24 BP 132/60 01/14/24 15:24 BMI result Body Mass Index 24.2 Const General: cooperative, healthy appearing, comfortable and no acute distress Orientation/consciousness: patient oriented x3 Neck Neck: Yes normal visual inspection Resp Effort & Inspection: normal respiratory effort Auscultation: clear to auscultation bilaterally, no rales, no rhonchi and no wheezes Cardio Jugular venous distension: no JVD Rate: regular rate Rhythm: regular rhythm Heart sounds: S1 normal heart sound present, S2 normal heart sound present, no murmurs and no rubs Neuro General: patient oriented x3 Extrem General: Yes normal to inspection and No no pedal edema Psych Appearance: grossly normal Mental Status: mental status grossly normal Speech and movement: Normal speech and movement present Assessment & Plan Assessment & Plan (1) HFrEF (heart failure with reduced ejection fraction): Code(s): I50.20 - Unspecified systolic (congestive) heart failure Category: Medical Plan: History of heart failure with reduced EF. She was admitted to [facility] recently in September and again in November with shortness of breath, decompensated heart failure. On her last admission she was diuresed with IV Lasix and discharged on Bumex. She was also started on hydralazine. Today she reports that her breathing is at its baseline. She does not appear fluid overloaded on examination. Signs and symptoms of heart failure reviewed with her. Instructed to take an additional dose of Bumex as needed for increased shortness of breath. Continue carvedilol for neurohormonal modulation. Continue hydralazine. Blood pressure currently controlled. She had been on valsartan which was previously stopped due to TED/ CKD. Labs done on 10/30/2023 showed creatinine 2.44 which is improved from a high of 3.03. She does have repeat lab orders in place. Reminded of this. (2) History of cardiomyopathy: Code(s): Z86.79 - Personal history of other diseases of the circulatory system Category: Medical Plan: History cardiomyopathy, previously thought to be nonischemic. EF 43% 1 year ago. A nuclear stress test done 06/20/2022 showed [id number] reversible defect in the apical part of the anterior septum, anterior wall, apex, adjacent lateral and inferior lateral wall, which could be related to ischemia, less likely artifact. Echocardiogram 08/09/2023 showed EF 30%, grade 3 diastolic dysfunction, basal inferior and basal inferior lateral segments akinetic, left atrium severely dilated, severe mitral valve regurgitation, mild AR. ( prior EF was 43%). In August, She underwent a cardiac catheterization to further evaluate reduced EF. Catheterization showed mid RCA 95% stenosis, GREG placed. Also residual disease in the mid left circumflex and mild in the mid LAD. Echocardiogram done 10/22/2023 showed EF 40%, grade 1 diastolic dysfunction and mild MR, same wall motion abnormality. Repeat echo 12/17/2023 showed EF 20-25%, moderate to severe MR. EF remains down inspite of revascularization. Hydralazine added recently. On carvedilol. Will check limited echo in 3 mo, to recheck EF and see if ICD is indicated. (3) HTN (hypertension): Code(s): I10 - Essential (primary) hypertension Category: Medical Plan: Well controlled at present. No med change made. Continue carvedilol and hydralazine. She is currently off valsartan. With her CKD will keep her off Tunde/Arb. Will continue to monitor blood pressure and if needed hydralazine dose can be further titrated. (4) Anemia: Code(s): D64.9 - Anemia, unspecified Category: Medical Plan: Follows with Dr. Tse. Last labs in our system 12/31/2023 shows hematocrit 33.3, which is very good for her. She denies any known active bleeding. (5) Stented coronary artery: Comment: 09/19/2023, drug-eluting stent to critical RCA stenosis at 95% for ischemic cardiomyopathy Code(s): Z95.5 - Presence of coronary angioplasty implant and graft Category: Surgical Plan: As above (6) CAD (coronary artery disease): Comment: Cardiac catheterization, August 2023 showed critical RCA stenosis 95%, status post drug-eluting stent, 70% circumflex stenosis Code(s): I25.10 - Atherosclerotic heart disease of [place] coronary artery without angina pectoris Category: Medical Plan: Recent cardiac catheterization showing significant RCA stenosis, GREG was placed, residual mid left circumflex 70% stenosis and mid LAD 30-40% stenosis. No reports of anginal sounding symptoms. She currently has a physical therapist at home and visiting nurse. Continue aspirin indefinitely. Continue Plavix uninterrupted for 1 year from stent placement. Continue carvedilol. (7) Mitral regurgitation: Code(s): I34.0 - Nonrheumatic mitral (valve) insufficiency Category: Medical Plan: Echocardiogram done 08/09/2023 showed severe mitral regurgitation. A repeat echocardiogram done 10/22/2023 shows mild mitral regurgitation. A repeat echo in November shows moderate to severe MR. No plan for LUCI at this time. (8) Hospital discharge follow-up: Code(s): Z09 - Encounter for follow-up examination after completed treatment for conditions other than malignant neoplasm Category: Medical Plan: As above Plan Time spent on chart review, documentation, interview and assessment Orders: Orders CA Echo Limited 04/07/24 I34.0 - Nonrheumatic mitral (valve) insufficiency, Z86.79 - Personal history of other diseases of the circulatory system Medications: Changed From hydralazine 25 mg See Protocol PO BID 60 tabs 0RF To hydralazine 25 mg See Protocol PO BID 90 days 180 tabs 3RF From bumetanide 2 mg See Protocol PO DAILY 60 tabs 0RF To bumetanide 2 mg See Protocol PO DAILY 90 days 180 tabs 3RF Coding Level of Care Code Est Pt Level 4 (68555) Diagnoses HFrEF (heart failure with reduced ejection fraction) I50.20 History of cardiomyopathy Z86.79 HTN (hypertension) I10 Anemia D64.9 Stented coronary artery Z95.5 CAD (coronary artery disease) I25.10 Mitral regurgitation I34.0 Hospital discharge follow-up Z09 Time Spent (min) 36
[2024-01-14 15:24] VITALS: BP 132/60; PULSE 77; BMI 24.2
== END 2024-01-14 16:07 | disposition home or self-care (01) ==
PROVIDERS: PCP Internal Medicine; Visit Provider Nurse Practitioner Family
DX: I50.20 Unspecified systolic (congestive) heart failure (principal); Z86.79 Personal history of other diseases of the circulatory system; I10 Essential (primary) hypertension; D64.9 Anemia, unspecified; Z95.5 Presence of coronary angioplasty implant and graft; I25.10 Atherosclerotic heart disease of native coronary artery without angina pectoris; I34.0 Nonrheumatic mitral (valve) insufficiency; Z09 Encounter for follow-up examination after completed treatment for conditions other than malignant neoplasm
CPT/HCPCS: 99214

== ENCOUNTER → 2024-01-14 14:24 | Outpatient (BNVA) | payer MEDICARE, SELFPAY | PROVIDERS: PCP Internal Medicine; Visit Provider Nurse Practitioner Family | DX: Z09 Encounter for follow-up examination after completed treatment for conditions other than malignant neoplasm (principal); I11.0 Hypertensive heart disease with heart failure; I50.20 Unspecified systolic (congestive) heart failure; I25.10 Atherosclerotic heart disease of native coronary artery without angina pectoris; I34.0 Nonrheumatic mitral (valve) insufficiency; D64.9 Anemia, unspecified; Z95.5 Presence of coronary angioplasty implant and graft; Z86.79 Personal history of other diseases of the circulatory system | CPT/HCPCS: 99212 ==

== ENCOUNTER 2024-01-29 10:10 | Outpatient (REF) | payer MEDICARE, SELFPAY ==
[2024-01-29 13:29] LABS: MANUAL DIFF FLAG NO
[2024-01-29 13:55] LABS: Basophils Percent Auto 0.6 % (0-2); Eosinophils Absolute Auto 0.2 X10*3/uL (0.0-0.4); Eosinophils Percent Auto 4.1 % (0-4); Hematocrit 27.9 % (37.0-47.0); Hemoglobin 8.9 g/dl (12.0-16.0); Imm Gran Abs Auto 0.02 X10*3/uL (0.00-0.03); Imm Gran Pct Auto 0.4 % (0.0-0.4); Lymphocytes Absolute Auto 1.2 X10*3/uL (1.2-4.9); Lymphocytes Percent Auto 22.8 % (20-40); Mean Corpuscular HGB Conc 31.9 g/dl (31.0-35.0); Mean Corpuscular Hemoglobin 34.6 pg (27.0-33.0); Mean Corpuscular Volume 108.6 fL (80.0-98.0); Mean Platelet Volume 9.9 fL (9.4-12.3); Monocytes Absolute Auto 0.5 X10*3/uL (0.1-1.2); Monocytes Percent Auto 9.5 % (2-11); Neutrophils Absolute Auto 3.4 x10*3/uL (2.0-8.3); Neutrophils Percent Auto 62.6 % (45-73); Platelet Count 198 X10*3/uL (160-400); Red Blood Count 2.57 X10*6/uL (4.20-5.50); Red Cell Distribution Width 13.9 % (11.0-16.0); White Blood Count 5.4 X10*3/uL (4.8-10.8)
[2024-01-29 14:10] LABS: B Type Natriuretic Peptide 1518 pg/mL (<100)
[2024-01-29 14:13] LABS: Anion Gap 12 (12-20); Blood Urea Nitrogen 27 mg/dL (9-16); Calcium 9.2 mg/dL (8.4-10.2); Carbon Dioxide 27 mmol/L (22-29); Chloride 110 mmol/L (96-108); Estimated Glomerular Filt Rate 30; Glucose Random 114 mg/dL (60-115); Potassium 3.7 mmol/L (3.3-5.1); Sodium 145 mmol/L (135-145)
== END 2024-01-29 10:11 | disposition home or self-care (01) ==
LOC: HO.HMGCLDS 10:10
PROVIDERS: PCP Internal Medicine; Visit Provider Internal Medicine
DX: I50.22 Chronic systolic (congestive) heart failure (principal); I25.10 Atherosclerotic heart disease of native coronary artery without angina pectoris; M10.072 Idiopathic gout, left ankle and foot; E89.0 Postprocedural hypothyroidism; N28.9 Disorder of kidney and ureter, unspecified; E11.29 Type 2 diabetes mellitus with other diabetic kidney complication; C50.911 Malignant neoplasm of unspecified site of right female breast; D50.0 Iron deficiency anemia secondary to blood loss (chronic)
CPT/HCPCS: 36415; 80048; 83880; 85025

== ENCOUNTER → 2024-04-07 12:48 | Outpatient (REF) | payer MEDICARE, SELFPAY ==
--- OUTSIDE RECORDS SUMMARY | 2024-04-07 12:51 | XMS_ITS ---
Author Organization John Avina DO, [facility] Address [address], [place] [id number] Care Team Providers Care Layout Mechanic Name Role Phone Fabrice John Primary Care Provider REASON FOR VISIT Refill and Message MEDICATIONS Medication SIG (Take, Route, Fr equency, Duration) Notes Start Date End Date Status FreeStyle Lancets - as directed Subcutan eous Once a day for 90 days 12/31/2023 Active Encounters Encounter Location Date Provider Diagnosis [facility] [address], [place] [id number] 02/28/2024 John Avina Type 2 diabetes mellitus with other diabetic kidney complication E11.29 ASSESSMENTS Encounter Date Diagnosis Assessment Notes Treatment Notes Treatment Clinical Notes 02/28/2024 Type 2 diabetes mellitus with other diabetic kidney complication (ICD-10 - E11.29) PLAN OF TREATMENT Medication Medication Name Sig Start Date Stop Date Notes FreeStyle Lancets - as directed Subcutan eous Once a day for 90 days 12/31/2023
--- OUTSIDE RECORDS SUMMARY | 2024-04-07 12:52 | XMS_ITS ---
[facility] Address [address] [place], [place] [id number] Care Team Providers Care Cellular Plastics Cutter Name Role Phone John Avina Primary Care Provider [phone] REASON FOR VISIT Message Encounters Encounter Location Date Provider Diagnosis John Avina DO, FACP [address] [place] [id number] 02/11/2024 John Avina PLAN OF TREATMENT No Information
--- OUTSIDE RECORDS SUMMARY | 2024-04-07 12:52 | XMS_ITS ---
Author Organization John Avina DO, [facility] Address [address], [place] [id number] Care Team Providers Care Avionics Systems Repairer Name Role Phone FabriceJohn Primary Care Provider [phone] REASON FOR VISIT Refill MEDICATIONS Medication SIG (Take, Route, Fr equency, Duration) Notes Start Date End Date Status FreeStyle Lancets - as directed Subcutan eous Once a day for 90 days 12/31/2023 Active Encounters Encounter Location Date Provider Diagnosis [facility] [address], [place] [phone] 02/14/2024 John Avina Type 2 diabetes mellitus with other diabetic kidney complication E11.29 ASSESSMENTS Encounter Date Diagnosis Assessment Notes Treatment Notes Treatment Clinical Notes 02/14/2024 Type 2 diabetes mellitus with other diabetic kidney complication (ICD-10 - E11.29) PLAN OF TREATMENT Medication Medication Name Sig Start Date Stop Date Notes FreeStyle Lancets - as directed Subcutan eous Once a day for 90 days 12/31/2023
--- OUTSIDE RECORDS SUMMARY | 2024-04-07 12:53 | XMS_ITS ---
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 Generated for Printi ng/Famalachig/eTransmitting on:?04/07/2024 12:52 PM EST
--- OUTSIDE RECORDS SUMMARY | 2024-04-07 12:53 | XMS_ITS ---
Author Organization [facility] symone [place] Address [address] [place] [address] Care Team Providers Care Phlebotomy Instructor Name Role Phone John Avina MD Primary Care Provider Unavail able Raf Pink Unavailable [phone] Allergies Allergen (clinical drug ingredient) Drug/Non Drug Allergy documented on EMR Reaction Allergy Type Onset Date Status esomeprazole Nexium Unknown Drug Allergy Acti ve PredniSONE Unknown Drug Allergy Active omeprazole Prilosec Unknown Drug Allergy Active REASON FOR VISIT Painful nail(s) aggrevated by shoes causing difficulty standing/walking, Painful Toe(s) Medications Medication SIG (Take, Route, Frequency, Duration) Notes Start Date End Date Status Vitamin E Unknown Lisinopril Unknown Klor-Con 10 Unknown Vitamin B-12 1000 MCG 1 tablet Orally Once a day Unknown Iron Unknown hydroCHLOROthiazide Unknown Levoxyl 50mcg Unknow n CeleBREX Unknown Folic Acid Not-Takin g Calcium Unknown Allopurinol 300 MG as directed Orally O nce a day Active Gemfibrozil Not-Taki ng metFORMIN HCl 500 MG 1 tablet with a niels l Orally Once a day for 30 day(s) Active Carvedilol 6.25 MG 1 tablet with food O rally Twice a day for 30 day(s) Active Gabapentin 300 MG 1 capsule Orally Onc e a day Active Furosemide Active Valsartan 40 MG as directed Orally T wice a day Active Rosuvastatin Calcium Active Social History Tobacco use other than smoking: Question Answer Notes Are you an other tobacco user? No Problems Problem Type SNOMED Code ICD Code Onset Dates Problem Status W/U Status Risk Notes Problem [id number] Tinea unguium (B35.1) Active confirmed Vital Signs Height 5 ft 1 in in 03/19/2023 Weight 126 lbs 03/19/2023 BMI 23.8 kg/m2 03/19/2023 Procedures Procedure Date Ordered Date Performed Result Body Sit e [id number]-LMIRRJK NAIL, 1-5 03/19/2023 N/A Encounters Encounter Location Date Provider Diagnosis [facility] [address] [place] [address] 03/19/2023 Raf Pink Tinea unguium B35.1 ; Pain in left toe(s) M79.675 ; Other hammer toe(s) (acquired), right foot M20.41 ; Arthritis of joint of lesser toe, right M19.071 ; Other hammer toe(s) (acquired), left foot M20.42 ; Arthritis of joint of lesser toe, left M19.072 and Subluxation of metatarsophalangeal joint of toe, initial encounter S93.149A Assessments Encounter Date Diagnosis (ICD Code) Assessment Notes Treatment Notes Treatment Clinical Notes Section Notes 03/19/2023 Tinea unguium (ICD-1 0 - B35.1) 03/19/2023 Pain in left toe(s) (ICD-10 - M79.675) 03/19/2023 Other hammer toe(s) (acquired), right foot (ICD-10 - M20.41) 03/19/2023 Arthritis of joint o f lesser toe, right (ICD-10 - M19.071) 03/19/2023 Other hammer toe(s) (acquired), left foot (ICD-10 - M20.42) 03/19/2023 Arthritis of joint o f lesser toe, left (ICD-10 - M19.072) 03/19/2023 Subluxation of metatarsophalangeal joint of toe, initial encounter (ICD-10 - S93.149A) Plan Of Treatment Pending Test Test Name Order Date 41205-[id number] NAIL, 1-5 03/19/2023 Next Appt Details Follow Up: prn, Reason: Procedure Notes * Category Sub-Category Detail Notes Debride Nails 1-5 Procedure: Nail debrideme nt performed extensively to reduce/remove overall nail length and girth, subungual debris, and necrotic tissue, by manual and electrical means with use of a nail nipper and/or dremel, to more viable healthy nail plate or bed tissue 1-5. Silver nitrate used for any petechial bleeding as necessary. Patient chooses, no pharmaceutical tx (01548) Progress Notes * Tonia HERNANDEZ RDOB:1945 (77 yo F)Acc No.[id number]:03/19/2023 Progress Notes Patient:?Tonia Hernandez R Provider:?Raf Pink DPM :1945???Age:77 Y???Sex:Female D ate:03/19/2023 Address:[address] [place] [address] [place], [id number] Pcp:John Avina MD Subjective: * Chief Complaints: * ???Painful nail(s) aggrevate d by shoes causing difficulty standing/walkingPainful Toe(s) * HPI: ???Painful Nails:?Pt States Last PCP Visit:?Date:?01/04/2022 ???Toe pain:?Nature:?tenderness.?Location:?B/L feet.?Duration:?several years.?Aggrevated by:?shoes, any pressure.?Treatments:?change in shoes , rest.? * ROS:?General/Constitutional:?Nausea?denies.?Vomiting?denies.?Hunger Thirst?denies.?Loss appetite?denies.?Chills?denies.?Fatigue?denies.?Fever?denies.?Night Sweats?denies.?Unexplained weight loss?denies.?Ophthalmologic:?Blurred vision?denies.?Red eye?denies.?HEENTM:?Dentures?denies.?Dizziness?denies.?Glasses/contacts?denies.?Retinopathy?de nies.?Blurred/double vision?denies.?TMJ?denies.?Discharge/drainage?denies.?Implants?denies.?Hard of hearing denies.?Difficulty chewing/swallowing/speaking?denies.?Nose bleeds?denies.?Sore mouth?denies.?Swollen glands?denies.?Respiratory:?On Oxygen?denies.?Pneumonia/pleurisy?denies.?Bronchitis?denies.?Emphysema?denies.?C oughing?denies.?Cough blood?denies.?Shortness of breath?denies.?Wheezing?denies.?Cardiovascular:?Pacemaker?denies.?MVP?denies.?WPW?denies.?CHF?denies.?Heart attack?denies.?Septal defect?denies.?Rapid beat?denies.?Chest pain ?denies.?Atrial Fib.?denies.?Murmur/Palpitations?denies.?Gastrointestinal:?Hemorrhoids?denies.?Stomach/Abdominal pain?denies.?Dark blood stool?denies.?Irritable bowel ?denies.?Constipation?denies.?Diarrhea?denies.?Vomiting?denies.?Hematology:?Swelling?denies.?Bruising?denies.?Bleeding problem?denies.?Genitourinary:?Blood urine?denies.?Frequent/Painfu/urination/bladder control?denies.?Kidney stones?denies.?Infection (UTI)?denies.?Nephropathy?denies.?Musculoskeletal:?Hammertoes?admits.?Bunions?denies.?Scoliosis/kyphosis?denies.?Muscle cramps / walking?denies.?Generalized aches and pains?denies.?Weakness?denies.?Integ.:?Ro?denies.?Scars?denies.?Corns/calluses?denies.?Ingrown nails?denies.?Painful nails?admits.?Rashes?denies.?Neurologic:?Difficulty sleeping?denies.?Bipolar?denies.?Brain disorder?denies.?Balance trouble?denies.?Confusion?denies.?Fainting/blackouts?denies.?Headache?denies.?Tr emors?denies.? * Medical History:? * Surgical History:?gall bladd er 1968kidney stones 1984thyroid 1970, 2006, 2007, 2008 * Hospitalization/Major Diagno stic Procedure:?Denies Past Hospitalization * Family History:?Mother: dece ased, arthritis, diagnosed with Family history of arthritis, Unspecified heart disease.?Father: , diagnosed with Diabetic - NIDDM, Other malignant neoplasm of unspecified site.?Maternal Grand Mother: diabetes, cancer.?Siblings: heart attack, high blood pressure, foot problems, stroke, diagnosed with Unspecified cerebral artery occlusion with cerebral infarction.?Paternal Grand Father: diagnosed with Diabetic - NIDDM.? * Social History:?Tobacco Use:?Tobacco Use/Smoking?Are you a:: former smoker , Additional Findings: Tobacco Non-User: Current non-smoker.?Tobacco use other than smoking?Are you an other tobacco user??No ???Drugs/Alcohol:?Drugs?Have you used drugs other than those for medical reasons in the past 12 months? No.?Alcohol Screen?Did you have a drink containing alcohol in the past year?: No, Points: 0, Interpretation: Negative.?Miscellaneous:?Caffeine: yes, 1-2 cups per day. ?Children: yes. ?Exercise: yes, gym. ?Marital status: . ?Occupation: retired. * Medications:?TakingFurosemid e Valsartan 40 MG Tablet as directed Orally Twice a dayRosuvastatin Calcium metFORMIN HCl 500 MG Tablet 1 tablet with a meal Orally Once a dayCarvedilol 6.25 MG Tablet 1 tablet with food Orally Twice a dayGabapentin 300 MG Capsule 1 capsule Orally Once a dayAllopurinol 300 MG Tablet as directed Orally Once a dayTaking Furosemide Taking Valsartan 40 MG Tablet as directed Orally Twice a dayTaking Rosuvastatin Calcium Taking metFORMIN HCl 500 MG Tablet 1 tablet with a meal Orally Once a dayTaking Carvedilol 6.25 MG Tablet 1 tablet with food Orally Twice a dayTaking Gabapentin 300 MG Capsule 1 capsule Orally Once a dayTaking Allopurinol 300 MG Tablet as directed Orally Once a dayNot-Taking/PRNGemfibrozil Folic Acid Not-Taking/PRN Gemfibrozil Not-Taking/PRN Folic Acid UnknownCalcium hydroCHLOROthiazide Levoxyl 50mcg CeleBREX Lisinopril Klor-Con 10 Vitamin B-12 1000 MCG Tablet 1 tablet Orally Once a dayIron Vitamin E Medication List reviewed and reconciled with the patientUnknown Calcium Unknown hydroCHLOROthiazide Unknown Levoxyl 50mcg Unknown CeleBREX Unknown Lisinopril Unknown Klor-Con 10 Unknown Vitamin B-12 1000 MCG Tablet 1 tablet Orally Once a dayUnknown Iron Unknown Vitamin E Medication List reviewed and reconciled with the patient * Allergies:?NexiumPrilosecPre dniSONEyrichard[Allergies Verified] Objective: * Vitals:?Ht: 5 ft 1 in, Wt:12 6, BMI: 23.8, Shoe size:6.5, BS:not taken, Wt-k.15 kg. * Examination: ???Nails: ?NAILS are:?Elongated, overgrown, dystrophic, lytic, greater than 3mm thick, discolored and friable with crumbly malodorous subungual debris, with pain on palpation , TA , T1 , T2.?Orthopedic: ?MUSCLE STRENGTH:?5/5 all groups in a symmetrical fashion , B/L.?DIGITAL DEFORMITIES:?Digital contracture, PIPJ, 2-5 B/L, incompl-reducible with WB, or to push-up test, no over, nor underlapping , MPJ Contracture/Dorsal subluxation , 2-5 B/L , incompl-reducible with WB or to push-up test.?FOOTWEAR:? shoe gear properties exacerbate patients foot/toe deformity.?Dermatologic: ?SKIN FINDINGS:?Skin exam reveals normal texture, elasticity, and turgor. There are no masses. The interspaces are clear.?Vascular: ?DP PULSES:?2/4, B/L.?PT PULSES:?2/4, B/L.?CAPILLARY FILL TIME:?immediate, all digits, B/L.?SKIN TEMPERTURE GRADIENT OF THE LOWER EXTERMITIES:?warm to cool, proximal to distal, B/L.?HAIR GROWTH/TEXTURE/ELASTICITY/TURGOR:?normal, B/L.?PIGMENTATION:?normal, B/L.?EDEMA:?absent, B/L.?Neurological: ?SENSORY:?Neurological exam reveals intact sensorium, pain sensation normal, vibration sensation intact, pinprick sensation is normal in the lower extremities, Pt denies, anesthesia, burning, paresthesia, tingling, B/L.?General Examination: ?GENERAL APPEARANCE:?Reveals a pleasant, alert, well-nourished, well- developed, well hydrated individual, who demonstrates proper attention to hygiene/body habitus, and is in no acute distress, Pt serves as own?historian for office visit today.?ORIENTED:?person, place, and time.? Assessment: * Assessment: 1.?Tinea unguium - B35.1?2.? Pain in left toe(s) - M79.675?3.?Other hammer toe(s) (acquired), right foot - M20.41?4.?Arthritis of joint of lesser toe, right - M19.071?5.?Other hammer toe(s) (acquired), left foot - M20.42?6.?Arthritis of joint of lesser toe, left - M19.072?7.?Subluxation of metatarsophalangeal joint of toe, initial encounter - S93.149A? Plan: * Treatment: * Procedures:?Debride Nails 1-5:?Procedure:?Nail debridement performed extensively to reduce/remove overall nail length and girth, subungual debris, and necrotic tissue, by manual and electrical means with use of a nail nipper and/or dremel, to more viable healthy nail plate or bed tissue 1-5. Silver nitrate used for any petechial bleeding as necessary. Patient chooses, no pharmaceutical tx ([id number]).? * Procedure Codes:?99433 WILL HALL, 1-5 * Preventive Medicine:? ??Counseling:?Discussion:?-03: Office or other outpatient visit for the evaluation and management of a new patient, which required a medically appropriate history and/or examination and LOW level of DECISION MAKING for: 1 STABLE ACUTE UNCOMPLICATED PROBLEM, 2 OR MORE MINOR PROBLEMS, OR 1 STABLE CHRONIC PROBLEM, THAT POSE(S) A LOW RISK FOR MORBIDITY/MORTALITY. The visit on the day of the encounter encompassed interpreting the data and educating the patient as to the nature of their condition, treatment options available according to their individual PMH, meds, allergies, and overall health/living conditions, as well as any potential risks or complications that may occur from a failure to adhere to, and participate in, the recommended course of therapy. The discussion included a complete verbal, and/or written explanation of the examination results, any x-rays taken, the proposed diagnosis, and outline of the treatment plan. A schedule for future care needs was also explained. The patient verbalized an understanding of the instructions at this time and agreed to be an active participant in their treatment. If the patient should think of any questions or concerns after the visit, I have encouraged the patient to call the office.?Digital Surgery:?Digital surgery was discussed with the patient, including the risks of surgery(below), vs not having surgery (persistent pain, deformity, risk for skin ulceration/infection, loss of toe), the potential surg complications, the anesthesia, and the usual post-op course. No guarentees were given. We discussed the potential procedure complications including, but not limited to: pain, swelling, bleeding, scarring, numbness, infection, delayed/non healing, floppy/unstable/shorthened toe, recurrence, failure of the procedure, overcorrection leading to plantarflexed/downward positioned toe, recurrence, need for further surgery, as well as the possibility for loss of the toe itself. We discussed the use of local anesthesia, and the usual post-op course for healing. No guarentees were given. The patient verbally indicated a full understanding of the above conversation, and any other of their questions were answered to their satisfaction. Alternatives to the procedure were also discussed, including conservative care. Pt defers any surgery.?Digital Treatment:?I explained to the patient the possible etiologies of Hammertoes, including genetics/foot type/shoegear/activity level/exercise routine and the risks/benefits of all the different treatment options for pain including: No treatment at all, Rest, Ice, New/supportive/wider/deeper Shoegear, Digital Padding/Strapping/Taping/Bracing/Gel protective sleeves, Foot/Ankle AFO Bracing, Stretching exercises, Deep Tissue Massage, Arch support/shoe inserts with splay metatarsal padding, and Custom orthoses. I insisted that any digital devices be removed daily and not worn overnight for safety. The patient is to carefully examine the toes daily for any skin irritation while using any splinting or padding device. The advantages and disadvantages of each option were discussed and the patients questions re: shoegear, padding, custom vs prefabricated inserts, activity level, and consistency in home treatment regimens for optimal success were answered to their verbally confirmed satisfaction.?Shoe Gear Counseling:?The patient and I reviewed the types of shoes they should be wearing. My recommendation included obtaining a well-fitted shoe with a good supportive, non-foldable nor twistable sole, plenty of toe/room for the forefoot, and proper arch support. Based on todays examination, I recommended the patient look for new shoes, by having their feet professionally measured. We discussed that generally the best time of the day for a shoe fitting is the afternoon. Different shoes types and brands to best match the patients occupation and vocation were discussed. Specific brand selection will be up to the patient, their individual foot condition/deformities, and fit. The patient and I reviewed the standard new shoe break in period by wearing them for a few hours a day while checking for redness or sores as wear time is increased. The patient verbally confirmed to understanding the information discussed.? * Follow Up:?prn * Images: * Sign off status: Completed true * Provider:?Raf Pink DPM Date:?2022 Generated for Med ballesteros/Caryl/Perfecto on:?04/07/2024 12:52 PM EST History and Physical Notes * HPI (History of Present Illness) Category Sub-Category Detail Notes Category Not es Toe pain Nature: tenderness Location: B/L feet Duration: several years Aggravated by: shoes, any pressure Treatments: change in shoes , re st Painful Nails Pt States Last PCP Visit: Date:: 01/04/2022 Examination Category Sub-Category Detail Notes Category Not es Neurological SENSORY: Neurological exa m reveals intact sensorium, pain sensation normal, vibration sensation intact, pinprick sensation is normal in the lower extremities, Pt denies, anesthesia, burning, paresthesia, tingling, B/L Dermatologic SKIN FINDINGS: Skin exam reveal s normal texture, elasticity, and turgor. There are no masses. The interspaces are clear Orthopedic FOOTWEAR: shoe gear proper ties exacerbate patients foot/toe deformity DIGITAL DEFORMITIES: Digital contracture , PIPJ, 2-5 B/L, incompl-reducible with WB, or to push-up test, no over, nor underlapping , MPJ Contracture/Dorsal subluxation , 2-5 B/L , incompl-reducible with WB or to push-up test MUSCLE STRENGTH: 5/5 all groups in a symmetrical fashion , B/L General Examination GENERAL APPEARANCE: Reveals a pleasant, alert, well- nourished, well-developed, well hydrated individual, who demonstrates proper attention to hygiene/body habitus, and is in no acute distress, Pt serves as own historian for office visit today ORIENTED: person, place, and t lore Vascular DP PULSES(B): 2/4, B/L PT PULSES(B): 2/4, B/L CAPILLARY FILL TIME: immediate, all digi ts, B/L TEMPERTURE GRADIENT(C): warm to cool, pr oximal to distal, B/L TROPHIC CONDITION-TEXTURE/ELASTICITY/TURGOR/HAIR GROWTH(B): normal, B/L EDEMA(C): absent, B/L PIGMENTATION: normal, B/L Nails NAILS are: Elongated, overg rown, dystrophic, lytic, greater than 3mm thick, discolored and friable with crumbly malodorous subungual debris, with pain on palpation , TA , T1 , T2
--- OUTSIDE RECORDS SUMMARY | 2024-04-07 12:53 | XMS_ITS | Patient Health Record ---
Author Organization John Avina DO, FACP Address [address], [place] [id number] Care Team Providers Care Technician Preventative Medicine Name Role Phone John Avina Primary Care Provider ALLERGIES Allergen (clinical drug ingredient) Drug/Non Drug Allergy documented on EMR Reaction Allergy Type Onset Date Status omeprazole Prilosec heart palpitations Drug Allergy Active esomeprazole Nexium heart palpitations Drug Allergy Active RESULTS Component Value Reference Range Notes MM tomosynthesis screening B I Reviewed date:05/21/2023 02:09:26 PM Interpretation:Incomplete Performing Lab: Notes/Report: [address] [place] [address] Mammography Report Signed Patient: Tonia Hernandez MR#: [id number] 227 : 1945 Acct:[id number] Age/Sex: 77 / F ADM Date: 05/09/23 Loc: HO.MAMMO Attending Dr: John Avina DO Ordering Physician: John Avina DO Results: 0Incom plete: Needs Additional Imaging Evaluation Date of Service: 05/09/23 Follow Up: Additional Imagi ng Procedure(s): MM tomosynthesis screening BI Accession Number(s): [id number] cc: John Avina DO EXAMINATION: MM SCREENING DIGITAL BREAST TOMOSYNTHESIS, BILATERAL CLINICAL INFORMATION: Screening. Asymptomatic. COMPARISON: Mammography: This study is compared with prior exams dating back to 2017. TECHNIQUE: Digital breast tomosynthesis is performed in both the craniocaudal and mediolateral oblique views along with computer-aided detection (CAD). Synthesized 2D images are generated from the tomosynthesis. FINDINGS: There are scattered areas of fibroglandular density (ACR BI-RADS breast composition Category b). There is a focal asymmetry in the upper outer quadrant of the right breast. There is centrally located, fine calcifications within it. Additional mammographic and targeted sonographic evaluation is advised. In the left breast, no are no significant masses, abnormal calcifications, or other abnormalities. MM/MM tomosynthesis screening BI IMPRESSION: Right breast asymmetry with associated calcifications warrant additional mammographic and targeted sonographic evaluation. This should include diagnostic spot compression imaging as well as 2 separate magnification images. No mammographic signs of malignancy left breast. ASSESSMENT: BI-RADS BI-RADS 0 - Incomplete: Needs additional Imaging. RECOMMENDATION: 1. Additional views of the right breast 2. Targeted ultrasound if warranted after review of the additional views. 3. Radiology department staff will contact the patient for additional imaging. Additional Imaging required This examination should not preclude the clinical evaluation of a suspicious palpable abnormality. This patient's information was entered into a reminder system with a target due date for their next mammogram. Dictated By: Leann Mclean MD Signed By: <Electronically signed by Leann Mclean MD in OV> 05/21/23 1244 DD/ 1230 TD/TT: Aeronautical Engineering Technologist: Complete Blood Count Auto Di ff Reviewed date:05/30/2023 12:31:43 PM Interpretation:Abnormal Performing Lab:[facility], [address] [place] [phone] Notes/Report: White Blood Count 6.1 4.8-10.8 X10*3/uL Red Blood Count 1.92 4.20-5.50 X10*6/uL Hemoglobin 7.0 12.0-16.0 g/dl Results of HGB called to and read back by MARY on 05/29/23 at 1702 by LISA. Hematocrit 20.9 37.0-47.0 % Results of HCT called to and read back by MARY on 05/29/23 at 1703 by LISA. Mean Corpuscular Volume 108.9 80.0-98.0 fL Mean Corpuscular Hemoglobin 36.5 27.0-33.0 pg Mean Corpuscular HGB Conc 33.5 31.0-35.0 g/dl Red Cell Distribution Width 13.8 11.0-16.0 % Platelet Count 175 160-400 X10*3/uL Mean Platelet Volume 9.7 9.4-12.3 fL Neutrophils Percent Auto 60.2 45-73 % Imm Gran Pct Auto 0.3 0.0-0.4 % Lymphocytes Percent Auto 25.3 20-40 % Monocytes Percent Auto 9.6 2-11 % Eosinophils Percent Auto 4.1 0-4 % Basophils Percent Auto 0.5 0-2 % NRBC Pct Auto 0.0 0.0-0.2 /100WBC Neutrophils Absolute Auto 3.7 2.0-8.3 x10*3/u L Imm Gran Abs Auto 0.02 0.00-0.03 X10*3/uL Lymphocytes Absolute Auto 1.6 1.2-4.9 X10*3/u L Monocytes Absolute Auto 0.6 0.1-1.2 X10*3/uL Eosinophils Absolute Auto 0.3 0.0-0.4 X10*3/u L Basophils Absolute Auto 0.0 0.0-0.2 X10*3/uL NRBC Abs Auto 0.000 0.0-0.012 X10*3/uL Pathologist Review - CBC Reviewed date:05/30/2023 12:31:43 PM Interpretation:See note Performing Lab:[facility], [address] [place] [phone] Notes/Report: Pathologist Review - CBC SEE NOTE Normochromic macrocytic anemia; scattered ovalocytes are seen. - Josse Howard M.D. Pathology Comprehensive Met. Panel Reviewed date:05/30/2023 12:31:43 PM Interpretation:Abnormal Performing Lab:[facility], [address] [place] [phone] Notes/Report: Sodium 144 135-145 mmol/L Potassium 4.3 3.3-5.1 mmol/L Chloride 106 96-108 mmol/L Carbon Dioxide 28 22-29 mmol/L Anion Gap 14 12-20 Blood Urea Nitrogen 24 9-16 mg/dL Creatinine 1.56 0.5-1.4 mg/dL Creatinine Clr Calc Pharmacy 25.7 Provided height and weight: 154.94 cm, 60.9 kg. eGFR (calculated from the MDRD study equation) and eCrCl (calculated from the Cockcroft-Gault equation) are based on different parameters and may not yield comparable results. If eCrCl result is absurd, please check patient's height/weight. Estimated Glomerular Filt Rate 32 NOTE: For -[place]inid[place] individuals, multiply the result by 1.210. Chronic Kidney Disease: Estimated GFR < 60 mL/min/1.73m2 Severe Kidney Disease: Estimated GFR < 15 mL/min/1.73m2 Glucose Random 96 60-115 mg/dL Calcium 9.6 8.4-10.2 mg/dL Bilirubin Total 0.8 0.0-1.0 mg/dL Aspartate Amino Transferase 16 5-31 U/L Alanine Aminotransferase 35 0-31 U/L Total Protein 7.2 6.5-8.0 g/dL Albumin Level 4.1 3.5-5.0 g/dL Alkaline Phosphatase 58 39-117 U/L Ferritin Reviewed date:05/30/2023 12:31:43 PM Interpretation:Abnormal Performing Lab:[address] [phone] Notes/Report: Ferritin 1469 10-250 ng/mL Lactate Dehydrogenase Reviewed date:05/30/2023 12:31:43 PM Interpretation:Normal Performing Lab:[address] [address] Notes/Report: Lactate Dehydrogenase 145 122-220 U/L Vitamin B12 and Folate Reviewed date:05/30/2023 12:31:43 PM Interpretation:Normal Performing Lab:[address] [address] Notes/Report: Vitamin B12 > 2000 200-900 pg/mL NORMAL 200-900 PG/ML INDETERMINATE 160-199 PG/ML DEFICIENT < 160 PG/ML Folate > 20.0 > or = 4.0 ng/mL Reference Values: > or = 4.0 ng/mL < 4.0 ng/mL suggests folate deficiency Methotrexate, aminopterin and folinic acid (leucovorin) are chemotherapeutic agents whose molecular structures are similar to folate; therefore, the Behavioral Intervention Specialist folate assay cannot be used for patients using these drugs. Type and Screen Reviewed date:05/30/2023 12:31:43 PM Interpretation:B Positive Performing Lab:[address], [place] [address] Notes/Report: Results at Issue Units as of 05/31/23 0956 ... Test View Group: Most Recent HGB HCT Results No results available. Results at Issue Units as of 05/31/23 1208 ... Test View Group: Most Recent HGB HCT Results No results available. Hgb 7-9 gm No Blood Type BP Antibody Screen NEGATIVE Red Blood Cells Reviewed date:05/31/2023 03:17:51 PM Interpretation:Transfused Performing Lab:[facility], [address] [place] [phone] Notes/Report: Red Blood Cells [id number] BN Red Blood Cells TRANSFUSED 05/31/23 0953 Red Blood Cells [id number] BP RC Red Blood Cells TRANSFUSED 05/31/23 1205 MM tomosynthesis added views R Reviewed date:05/30/2023 12:47:30 PM Interpretation:Suspicious finding Performing Lab: Notes/Report: [facility] [address] [place] [address] Mammography Report Signed Patient: Tonia Hernandez MR#: [id number] 227 : 1945 Acct:[id number] Age/Sex: 77 / F ADM Date: 05/29/23 Loc: BETTYO Attending Dr: John Avina DO Ordering Physician: John Avina DO Results: 4Suspi cious Finding Date of Service: 05/29/23 Follow Up: Biopsy Recommend ed Procedure(s): MM tomosynthesis added views R Accession Number(s): [id number] cc: John Avina DO EXAMINATION: MM DIAGNOSTIC DIGITAL BREAST TOMOSYNTHESIS, RIGHT US BREAST LIMITED, RIGHT MAMMOGRAPHY: CLINICAL INFORMATION: Diagnostic exam for focal asymmetry upper outer quadrant right breast seen on screening exam, with possible internal calcifications. COMPARISON: Mammography: 05/09/2023, 05/03/2022, 04/27/2021, 03/08/2020, 01/09/2019, and dating back to 2013. TECHNIQUE: Digital right breast tomosynthesis is performed in the following views: 2-D spot magnification right CC and ML views, 3-D spot compression right CC and MLO views, and targeted ultrasound to follow. FINDINGS: There are scattered areas of fibroglandular density (ACR BI-RADS breast composition Category b). Spot compression and magnification views demonstrate a mildly spiculated irregular mass in the upper outer right breast, middle one third, with internal fine calcifications. This measures approximately 1.3 cm. This finding is suspicious and will be evaluated with ultrasound. There is a stable oval density abutting the lateral right nipple, known to represent duct ectasia. This is benign and unchanged. ULTRASOUND: CLINICAL INFORMATION: Evaluate slightly irregular spiculated mass upper outer quadrant right breast middle one third. COMPARISON: None TECHNIQUE: Targeted sonographic evaluation was performed using a high frequency linear transducer. The upper outer quadrant of the right breast was targeted. Selected archived documentation. FINDINGS: RIGHT BREAST: Ultrasound demonstrates an irregular mass in the 10:00 axis of the right breast, 4 cm from the nipple, with microlobulated contours, internal color Doppler flow, and no definite posterior features. There are internal fine specular calcifications within this mass. The abnormality measures approximately 1.3 x 0.9 x 0.8 cm, and abuts the pectoralis fascia without definite invasion. No definite abnormal right axillary lymph nodes were evident. No additional abnormal findings within the right breast. MM/MM tomosynthesis added views R IMPRESSION: Suspicious 1.3 cm microlobulated mass with internal fine calcifications at the 10:00 axis of the right breast. Recommend ultrasound-guided biopsy for further characterization. Findings and recommendations were discussed with the patient in detail. No evidence of abnormal right axillary lymph nodes. OVERALL ASSESSMENT: Mammography: BI-RADS 4 - Suspicious finding Ultrasound: BI-RADS 4 - Suspicious finding RECOMMENDATION: Biopsy recommended Dictated By: Olivier Bains MD Signed By: <Electronically signed by Olivier Bains MD in OV> 05/29/23 1709 DD/ 1515 TD/TT: Aeronautical Engineering Technologist: US breast RT limited mamm on ly Reviewed date:05/30/2023 01:03:48 PM Interpretation:Suspicious finding Performing Lab: Notes/Report: [facility] [address] [place] [address] Ultrasound Report Signed Patient: Tonia Hernandez MR#: [id number] 227 : 1945 Acct:[id number] Age/Sex: 77 / F ADM Date: 05/29/23 Loc: HO.MAMMO Attending Dr: John Avina DO Ordering Physician: John Avina DO Date of Service: 05/29/23 Procedure(s): US breast RT limited mamm only Accession Number(s): [id number] cc: John Avina DO EXAMINATION: MM DIAGNOSTIC DIGITAL BREAST TOMOSYNTHESIS, RIGHT US BREAST LIMITED, RIGHT MAMMOGRAPHY: CLINICAL INFORMATION: Diagnostic exam for focal asymmetry upper outer quadrant right breast seen on screening exam, with possible internal calcifications. COMPARISON: Mammography: 05/09/2023, 05/03/2022, 04/27/2021, 03/08/2020, 01/09/2019, and dating back to 2013. TECHNIQUE: Digital right breast tomosynthesis is performed in the following views: 2-D spot magnification right CC and ML views, 3-D spot compression right CC and MLO views, and targeted ultrasound to follow. FINDINGS: There are scattered areas of fibroglandular density (ACR BI-RADS breast composition Category b). Spot compression and magnification views demonstrate a mildly spiculated irregular mass in the upper outer right breast, middle one third, with internal fine calcifications. This measures approximately 1.3 cm. This finding is suspicious and will be evaluated with ultrasound. There is a stable oval density abutting the lateral right nipple, known to represent duct ectasia. This is benign and unchanged. ULTRASOUND: CLINICAL INFORMATION: Evaluate slightly irregular spiculated mass upper outer quadrant right breast middle one third. COMPARISON: None TECHNIQUE: Targeted sonographic evaluation was performed using a high frequency linear transducer. The upper outer quadrant of the right breast was targeted. Selected archived documentation. FINDINGS: RIGHT BREAST: Ultrasound demonstrates an irregular mass in the 10:00 axis of the right breast, 4 cm from the nipple, with microlobulated contours, internal color Doppler flow, and no definite posterior features. There are internal fine specular calcifications within this mass. The abnormality measures approximately 1.3 x 0.9 x 0.8 cm, and abuts the pectoralis fascia without definite invasion. No definite abnormal right axillary lymph nodes were evident. No additional abnormal findings within the right breast. US/US breast RT limited mamm only IMPRESSION: Suspicious 1.3 cm microlobulated mass with internal fine calcifications at the 10:00 axis of the right breast. Recommend ultrasound-guided biopsy for further characterization. Findings and recommendations were discussed with the patient in detail. No evidence of abnormal right axillary lymph nodes. OVERALL ASSESSMENT: Mammography: BI-RADS 4 - Suspicious finding Ultrasound: BI-RADS 4 - Suspicious finding RECOMMENDATION: Biopsy recommended Dictated By: Olivier Bains MD Signed By: <Electronically signed by Olivier Bains MD in OV> 05/29/23 1709 DD/ 1515 TD/TT: Aeronautical Engineering Technologist: Pathology Reviewed date:07/04/2023 04:18:17 PM Interpretation:Abnormal Performing Lab:[facility], [address] [place] [phone] Notes/Report: MM tomosynthesis diagnostic RT Reviewed date:07/12/2023 11:59:47 AM Interpretation:Abnormal Performing Lab: Notes/Report: [facility] [address] [place] [address] Mammography Report Signed with Corey Patient: Tonia Hernandez MR#: [id number] 227 : 1945 Acct:[id number] Age/Sex: 77 / F ADM Date: 07/01/23 Loc: MONIQUE Attending Dr: Juliann Tse MD Ordering Physician: Juliann Tse MD Results: 1Negati ve Date of Service: 07/01/23 Follow Up: 1 Year From Orig inal Mammogram Procedure(s): MM tomosynthesis diagnostic RT Accession Number(s): [id number] cc: Juliann Tse MD; John Avina DO ADDENDUM ADDENDUM: Pathology results: Right breast 10:00 mass, ultrasound-guided biopsy: -Invasive cribriform carcinoma, grade 1, with perineural invasion and microcalcifications. -Tumor size: Largest linear diameter: 10 mm. -Estrogen receptor: Positive. -Progesterone receptor positive. -HER-2: Low -Ki-67: Low -Smooth muscle mild syncope 63 are negative, confirming invasive carcinoma. Please see pathology report for comprehensive information regarding the specimen. Pathology results are considered concordant with imaging expectations. Results are communicated to Dr. Bains and Dr. Tse by secure text via Dr. Chapa on 07/02/2023 at 12:04 PM RECOMMENDATIONS: Surgical and oncological management. Addendum Dictated By: Olivier Bains MD Addendum Signed By: <Electronically signed by Olivier Bains MD in OV> 07/12/23903 Addendum Cosigned By: DD/ /15/1108 TD/TT: / PROCEDURE: US GUIDED BREAST BIOPSY, RIGHT CLINICAL INFORMATION: 10:00 axis irregular hypoechoic mass right breast, recommended for biopsy. Recent blind attempt in surgeon's office essentially nondiagnostic. Repeat biopsy with image guidance. COMPARISON: 05/29/2023, and 05/09/2023. PROCEDURAL DETAILS: The details of the procedure, as well as the risks, benefits, and alternatives to the procedure were explained to the patient in detail and all of her questions were answered, after which written informed consent was obtained. Site and side were confirmed. Prior to the procedure, sonography revealed a mixed echogenicity predominantly hypoechoic irregular mass in the 10:00 axis of the right breast, 5 cm from the nipple, with internal vascularity, measuring approximately 1.3 x 0.9 x 0.8 cm. A time-out was performed, the lesion intended for biopsy was targeted, and the skin of the right breast was then marked, prepped and draped in the usual sterile fashion. Using sonographic guidance, sterile technique, and 1% lidocaine without epinephrine for local anesthesia, 3 core biopsies were obtained through the targeted area with a 14G spring loaded Monsciergeera core biopsy device. There was real-time confirmation of appropriate needle passage. Sampling was documented. At the completion of tissue sampling, a single open coil metallic clip was deposited at the biopsy site. There was no evidence of immediate complication. No abnormal right axillary lymph nodes were noted on prior ultrasound. SPECIMEN: 3 well formed core samples were obtained. DIGITAL POST-PROCEDURE MAMMOGRAPHY: Breast density: The tissue contains scattered areas of fibroglandular density. BI-RADS version 5, category B. There are no new mammographic findings demonstrated. The postprocedure 2-view direct digital mammogram reveals satisfactory and accurate positioning of the biopsy clip. No hematoma present. The patient tolerated the procedure well and, after assuring adequate hemostasis, was discharged in good condition after reviewing postbiopsy breast care instructions. Final pathology results are pending. MM/MM tomosynthesis diagnostic RT IMPRESSION: 1. No immediate complication from ultrasound-guided percutaneous biopsy right breast 10:00 mass. 2. Ultrasound was used to localize and guide marker clip placement. 3. The 2-view direct digital postprocedure mammogram reveals accurate and satisfactory positioning of the biopsy clip. 4. Although the mass abuts the pectoralis fascia, no definite invasion was seen, and on biopsy, lidocaine infiltration underneath the mass encountered no resistance in lifting it from the pectoralis fascia. 5. Final pathology results are pending. A separate report with final recommendations will be issued once these results are made available. Dictated By: Olivier Bains MD Signed By: <Electronically signed by Olivier Bains MD in OV> 07/01/23 1137 DD/ 1108 TD/TT: Aeronautical Engineering Technologist: US breast ndl core biopsy RT Reviewed date:07/12/2023 11:59:04 AM Interpretation:Abnormal Performing Lab: Notes/Report: [facility] [address] [place] [address] Ultrasound Report Signed with Corey Patient: Tonia Hernandez MR#: [id number] 227 : 1945 Acct:[id number] Age/Sex: 77 / F ADM Date: 07/01/23 Loc: HO.MAMMO Attending Dr: Juliann Tse MD Ordering Physician: Juliann Tse MD Date of Service: 07/01/23 Procedure(s): US breast ndl core biopsy RT Accession Number(s): [id number] cc: Juliann Tse MD; John Avina DO ADDENDUM ADDENDUM: Pathology results: Right breast 10:00 mass, ultrasound-guided biopsy: -Invasive cribriform carcinoma, grade 1, with perineural invasion and microcalcifications. -Tumor size: Largest linear diameter: 10 mm. -Estrogen receptor: Positive. -Progesterone receptor positive. -HER-2: Low -Ki-67: Low -Smooth muscle mild syncope 63 are negative, confirming invasive carcinoma. Please see pathology report for comprehensive information regarding the specimen. Pathology results are considered concordant with imaging expectations. Results are communicated to Dr. Bains and Dr. Tse by secure text via Dr. Chapa on 07/02/2023 at 12:04 PM RECOMMENDATIONS: Surgical and oncological management. Addendum Dictated By: Olivier Bains MD Addendum Signed By: <Electronically signed by Olivier Bains MD in OV> 07/12/23903 Addendum Cosigned By: DD/ /15/1000 TD/TT: / PROCEDURE: US GUIDED BREAST BIOPSY, RIGHT CLINICAL INFORMATION: 10:00 axis irregular hypoechoic mass right breast, recommended for biopsy. Recent blind attempt in surgeon's office essentially nondiagnostic. Repeat biopsy with image guidance. COMPARISON: 05/29/2023, and 05/09/2023. PROCEDURAL DETAILS: The details of the procedure, as well as the risks, benefits, and alternatives to the procedure were explained to the patient in detail and all of her questions were answered, after which written informed consent was obtained. Site and side were confirmed. Prior to the procedure, sonography revealed a mixed echogenicity predominantly hypoechoic irregular mass in the 10:00 axis of the right breast, 5 cm from the nipple, with internal vascularity, measuring approximately 1.3 x 0.9 x 0.8 cm. A time-out was performed, the lesion intended for biopsy was targeted, and the skin of the right breast was then marked, prepped and draped in the usual sterile fashion. Using sonographic guidance, sterile technique, and 1% lidocaine without epinephrine for local anesthesia, 3 core biopsies were obtained through the targeted area with a 14G spring loaded Monsciergeera core biopsy device. There was real-time confirmation of appropriate needle passage. Sampling was documented. At the completion of tissue sampling, a single open coil metallic clip was deposited at the biopsy site. There was no evidence of immediate complication. No abnormal right axillary lymph nodes were noted on prior ultrasound. SPECIMEN: 3 well formed core samples were obtained. DIGITAL POST-PROCEDURE MAMMOGRAPHY: Breast density: The tissue contains scattered areas of fibroglandular density. BI-RADS version 5, category B. There are no new mammographic findings demonstrated. The postprocedure 2-view direct digital mammogram reveals satisfactory and accurate positioning of the biopsy clip. No hematoma present. The patient tolerated the procedure well and, after assuring adequate hemostasis, was discharged in good condition after reviewing postbiopsy breast care instructions. Final pathology results are pending. US/US breast ndl core biopsy RT IMPRESSION: 1. No immediate complication from ultrasound-guided percutaneous biopsy right breast 10:00 mass. 2. Ultrasound was used to localize and guide marker clip placement. 3. The 2-view direct digital postprocedure mammogram reveals accurate and satisfactory positioning of the biopsy clip. 4. Although the mass abuts the pectoralis fascia, no definite invasion was seen, and on biopsy, lidocaine infiltration underneath the mass encountered no resistance in lifting it from the pectoralis fascia. 5. Final pathology results are pending. A separate report with final recommendations will be issued once these results are made available. Dictated By: Olivier Bains MD Signed By: <Electronically signed by Olivier Bains MD in OV> 07/01/23 1137 DD/ 1108 TD/TT: Aeronautical Engineering Technologist: Complete Blood Count Auto Di ff Reviewed date:07/23/2023 01:43:56 PM Interpretation:Abnormal Performing Lab:[facility], [address] [place] [phone] Notes/Report: White Blood Count 7.7 4.8-10.8 X10*3/uL Red Blood Count 2.34 4.20-5.50 X10*6/uL Hemoglobin 8.3 12.0-16.0 g/dl Hematocrit 24.3 37.0-47.0 % Mean Corpuscular Volume 103.8 80.0-98.0 fL Mean Corpuscular Hemoglobin 35.5 27.0-33.0 pg Mean Corpuscular HGB Conc 34.2 31.0-35.0 g/dl Red Cell Distribution Width 15.3 11.0-16.0 % Platelet Count 175 160-400 X10*3/uL Mean Platelet Volume 9.2 9.4-12.3 fL Neutrophils Percent Auto 63.4 45-73 % Imm Gran Pct Auto 0.4 0.0-0.4 % Lymphocytes Percent Auto 23.2 20-40 % Monocytes Percent Auto 9.9 2-11 % Eosinophils Percent Auto 2.6 0-4 % Basophils Percent Auto 0.5 0-2 % NRBC Pct Auto 0.0 0.0-0.2 /100WBC Neutrophils Absolute Auto 4.9 2.0-8.3 x10*3/u L Imm Gran Abs Auto 0.03 0.00-0.03 X10*3/uL Lymphocytes Absolute Auto 1.8 1.2-4.9 X10*3/u L Monocytes Absolute Auto 0.8 0.1-1.2 X10*3/uL Eosinophils Absolute Auto 0.2 0.0-0.4 X10*3/u L Basophils Absolute Auto 0.0 0.0-0.2 X10*3/uL NRBC Abs Auto 0.000 0.0-0.012 X10*3/uL Type and Screen Reviewed date:07/23/2023 02:51:16 PM Interpretation:B Positive Performing Lab:[facility], [address] [place] [phone] Notes/Report: WITNESSED BY ARELIS Results at Issue Units as of 07/24/23 1018 ... Test View Group: Most Recent HGB HCT Results LABORATORY Date Time Test Result Flag Normal Range 07/23/23 1309 HGB 8.3 L 12.0-16.0 g/dl 07/23/23 1309 HCT 24.3 L 37.0-47.0 % Results at Issue Units as of 07/24/23 1253 ... Test View Group: Most Recent HGB HCT Results LABORATORY Date Time Test Result Flag Normal Range 07/23/23 1309 HGB 8.3 L 12.0-16.0 g/dl 07/23/23 1309 HCT 24.3 L 37.0-47.0 % Hgb 7-9 gm No Blood Type BP Antibody Screen NEGATIVE Red Blood Cells Reviewed date:07/24/2023 01:10:16 PM Interpretation:Transfused Performing Lab:[facility], [address] [place] [phone] Notes/Report: Red Blood Cells [id number] BP RC Red Blood Cells TRANSFUSED 07/24/23 1018 Red Blood Cells [id number] BP RC Red Blood Cells TRANSFUSED 07/24/23 1252 Complete Blood Count Auto Di ff Reviewed date:08/09/2023 11:50:52 AM Interpretation:Abnormal Performing Lab:[facility], [address] [place] [phone] Notes/Report: White Blood Count 11.6 4.8-10.8 X10*3/uL Red Blood Count 2.55 4.20-5.50 X10*6/uL Hemoglobin 8.8 12.0-16.0 g/dl Hematocrit 25.8 37.0-47.0 % Mean Corpuscular Volume 101.2 80.0-98.0 fL Mean Corpuscular Hemoglobin 34.5 27.0-33.0 pg Mean Corpuscular HGB Conc 34.1 31.0-35.0 g/dl Red Cell Distribution Width 16.2 11.0-16.0 % Platelet Count 165 160-400 X10*3/uL Mean Platelet Volume 9.3 9.4-12.3 fL Neutrophils Percent Auto 80.6 45-73 % Imm Gran Pct Auto 0.3 0.0-0.4 % Lymphocytes Percent Auto 8.7 20-40 % Monocytes Percent Auto 9.0 2-11 % Eosinophils Percent Auto 1.1 0-4 % Basophils Percent Auto 0.3 0-2 % NRBC Pct Auto 0.0 0.0-0.2 /100WBC Neutrophils Absolute Auto 9.4 2.0-8.3 x10*3/u L Imm Gran Abs Auto 0.04 0.00-0.03 X10*3/uL Lymphocytes Absolute Auto 1.0 1.2-4.9 X10*3/u L Monocytes Absolute Auto 1.1 0.1-1.2 X10*3/uL Eosinophils Absolute Auto 0.1 0.0-0.4 X10*3/u L Basophils Absolute Auto 0.0 0.0-0.2 X10*3/uL NRBC Abs Auto 0.000 0.0-0.012 X10*3/uL Prothrombin Time INR Reviewed date:08/09/2023 11:50:52 AM Interpretation:Abnormal Performing Lab:[address] [phone] Notes/Report: Prothrombin Time 13.4 11.1-13.3 SEC INTERNATIONAL NORM RATIO 1.1 0.9-1.1 INTERNATIONAL NORMALIZED RATIO (INR) REFERENCE RANGES Reference Range For patients not on anticoagulant therapy: 0.9 - 1.1 INR ranges for oral anticoagulant therapy: For prevention and treatment of venous thrombosis and pulmonary embolism: 2.0 - 3.0 For acute myocardial infarction with aspirin therapy: 2.0 - 3.0 For acute myocardial infarction without aspirin therapy: 3.0 - 4.0 For patients with mechanical prosthetic heart valves: 2.5 - 3.5 Liver Panel Reviewed date:08/09/2023 11:51:59 AM Interpretation:Abnormal Performing Lab:[facility], [address] [place] [phone] Notes/Report: Bilirubin Total 1.6 0.0-1.0 mg/dL Bilirubin Direct 0.5 0.0-0.5 mg/dL Aspartate Amino Transferase 19 5-31 U/L Alanine Aminotransferase 41 0-31 U/L Total Protein 7.0 6.5-8.0 g/dL Albumin Level 3.9 3.5-5.0 g/dL Alkaline Phosphatase 60 39-117 U/L Basic Metabolic Panel Reviewed date:08/09/2023 11:51:59 AM Interpretation:Abnormal Performing Lab:[facility], [address] [place] [phone] Notes/Report: Sodium 144 135-145 mmol/L Potassium 3.4 3.3-5.1 mmol/L Chloride 107 96-108 mmol/L Carbon Dioxide 29 22-29 mmol/L Anion Gap 11 12-20 Blood Urea Nitrogen 22 9-16 mg/dL Creatinine 1.41 0.5-1.4 mg/dL Creatinine Clr Calc Pharmacy 27.8 Provided height and weight: 154.94 cm, 58.06 kg. eGFR (calculated from the MDRD study equation) and eCrCl (calculated from the Cockcroft-Gault equation) are based on different parameters and may not yield comparable results. If eCrCl result is absurd, please check patient's height/weight. Estimated Glomerular Filt Rate 36 NOTE: For -Trinidadian individuals, multiply the result by 1.210. Chronic Kidney Disease: Estimated GFR < 60 mL/min/1.73m2 Severe Kidney Disease: Estimated GFR < 15 mL/min/1.73m2 Glucose Random 147 60-115 mg/dL Calcium 9.2 8.4-10.2 mg/dL Lactic Acid Reviewed date:08/09/2023 11:50:52 AM Interpretation:Normal Performing Lab:[facility], [address] [place] [phone] Notes/Report: Lactic Acid 1.4 0.5-2.0 mmol/L Troponin-I High Sensitivity Reviewed date:08/09/2023 12:41:37 PM Interpretation:Abnormal Performing Lab:[facility], [address] [place] [phone] Notes/Report: Troponin-I High Sensitivity 24.5 <3.5-17.0 ng/L The Live high sensitivity Troponin-I results should be used in conjunction with other diagnostic information such as ECG, clinical observations and information, and patient symptoms to aid in the diagnosis of [place]. B Type Natriuretic Peptide Reviewed date:08/09/2023 12:43:19 PM Interpretation:Abnormal Performing Lab:[facility], [address] [place] [phone] Notes/Report: B Type Natriuretic Peptide 1926 <100 pg/mL For those patients who are being treated with Natrecor (nesiritide, recombinant BNP), BNP testing should be performed at least two hours post treatment in order to ensure that only endogenous levels of BNP are detected. Glucose, Whole Blood Reviewed date:08/10/2023 11:22:55 AM Interpretation:Abnormal Performing Lab:[facility], [address] [place] [phone] Notes/Report: Glucose, Whole Blood 116 60-115 mg/dL METER # : [id number] Blood Culture (First) Reviewed date:08/14/2023 01:39:00 PM Interpretation:Negative Performing Lab:[facility], [address] [place] [phone] Notes/Report: Blood Culture (First) No growth after 5 days. Blood Culture (Second) Reviewed date:08/14/2023 02:29:22 PM Interpretation:Negative Performing Lab:[facility], [address] [place] [phone] Notes/Report: Blood Culture (Second) No growth after 5 days. SARS-CoV2/FLU/RSV Reviewed date:08/09/2023 12:45:37 PM Interpretation:Negative Performing Lab:[facility], [address] [place] [phone] Notes/Report: Influenza A PCR NEGATIVE Negative Influenza B PCR NEGATIVE Negative Resp Syncy Virus RNA Qual PCR NEGATIVE Negative SARS COV2 PCR INHOUSE NEGATIVE Negative All test results must be correlated with clinical findings. Negative results do not preclude SARS-CoV2, influenza A virus, influenza B virus and/or RSV infection and should not be used as the sole basis for treatment or other patient management decisions. Negative results must be combined with clinical observations, patient history, and epidemiological information. This test has not been evaluated for monitoring treatment of infection. This test has been authorized by the FDA under an Emergency Use Authorization (EUA) for use by authorized laboratories. Testing performed on the [employer] GeneXpert utilizing real-time RT-PCR. All SARS CoV2 and positive influenza A/B results are reported to [facility]. XR chest 2V Reviewed date:08/09/2023 12:46:36 PM Interpretation:Abnormal Performing Lab: Notes/Report: [address] [place] [address] XRay Report Signed Patient: Tonia Hernandez MR#: [id number] : 1945 Acct:[id number] Age/Sex: 77 / F ADM Date: 08/09/23 Loc: HO.ED Attending Dr: Ordering Physician: Narcisa Swift NP Date of Service: 08/09/23 Procedure(s): XR chest 2V Accession Number(s): [id number] cc: John Avina DO; Narcisa Swift NP EXAMINATION: XR CHEST CLINICAL INFORMATION: Difficulty breathing since last night. COMPARISON: 09/23/2017 TECHNIQUE: 2 views of the chest were obtained. FINDINGS: Cardiac silhouette remains enlarged. Aorta is calcified. Central vasculature appears prominent and there is visualization of the right minor fissure. Left costophrenic angle blunting. Basilar atelectasis. No consolidations. Bones are demineralized. XR/XR chest 2V IMPRESSION: Suspect mild central vascular congestion and tiny left pleural effusion. Basilar atelectasis. Dictated By: Benita Ortiz MD Signed By: <Electronically signed by Benita Ortiz MD in OV> 08/09/23 1210 DD/ 1147 TD/TT: Aeronautical Engineering Technologist: Troponin-I High Sensitivity Reviewed date:08/10/2023 11:22:55 AM Interpretation:Abnormal Performing Lab:[facility], [address] [place] [phone] Notes/Report: Troponin-I High Sensitivity 31.0 <3.5-17.0 ng/L The Live high sensitivity Troponin-I results should be used in conjunction with other diagnostic information such as ECG, clinical observations and information, and patient symptoms to aid in the diagnosis of [place]. Glucose, Whole Blood Reviewed date:08/10/2023 11:22:55 AM Interpretation:Abnormal Performing Lab:[facility], [address] [place] [phone] Notes/Report: Glucose, Whole Blood 215 60-115 mg/dL METER # : [id number] Complete Blood Count no Diff Reviewed date:08/10/2023 11:22:55 AM Interpretation:Abnormal Performing Lab:[facility], [address] [place] [phone] Notes/Report: White Blood Count 8.1 4.8-10.8 X10*3/uL Red Blood Count 2.39 4.20-5.50 X10*6/uL Hemoglobin 8.3 12.0-16.0 g/dl Hematocrit 24.9 37.0-47.0 % Mean Corpuscular Volume 104.2 80.0-98.0 fL Mean Corpuscular Hemoglobin 34.7 27.0-33.0 pg Mean Corpuscular HGB Conc 33.3 31.0-35.0 g/dl Red Cell Distribution Width 16.3 11.0-16.0 % Platelet Count 145 160-400 X10*3/uL Mean Platelet Volume 9.6 9.4-12.3 fL NRBC Pct Auto 0.0 0.0-0.2 /100WBC NRBC Abs Auto 0.000 0.0-0.012 X10*3/uL Basic Metabolic Panel Reviewed date:08/10/2023 11:22:55 AM Interpretation:Abnormal Performing Lab:[facility], [address] [place] [phone] Notes/Report: Sodium 144 135-145 mmol/L Potassium 3.4 3.3-5.1 mmol/L Chloride 104 96-108 mmol/L Carbon Dioxide 31 22-29 mmol/L Anion Gap 12 12-20 Blood Urea Nitrogen 24 9-16 mg/dL Creatinine 1.46 0.5-1.4 mg/dL Creatinine Clr Calc Pharmacy 26.9 Provided height and weight: 154.94 cm, 58.06 kg. eGFR (calculated from the MDRD study equation) and eCrCl (calculated from the Cockcroft-Gault equation) are based on different parameters and may not yield comparable results. If eCrCl result is absurd, please check patient's height/weight. Estimated Glomerular Filt Rate 35 NOTE: For -Trinidadian individuals, multiply the result by 1.210. Chronic Kidney Disease: Estimated GFR < 60 mL/min/1.73m2 Severe Kidney Disease: Estimated GFR < 15 mL/min/1.73m2 Glucose Random 122 60-115 mg/dL Calcium 8.9 8.4-10.2 mg/dL Magnesium Reviewed date:08/10/2023 11:22:55 AM Interpretation:Normal Performing Lab:[facility], [address] [place] [phone] Notes/Report: Magnesium 2.0 1.6-2.6 mg/dL Glucose, Whole Blood Reviewed date:08/10/2023 11:22:55 AM Interpretation:Normal Performing Lab:[facility], [address] [place] [phone] Notes/Report: Glucose, Whole Blood 115 60-115 mg/dL METER # : [id number] Glucose, Whole Blood Reviewed date:08/10/2023 11:31:06 AM Interpretation:Abnormal Performing Lab:[facility], [address] [place] [phone] Notes/Report: Glucose, Whole Blood 183 60-115 mg/dL METER # : [id number] Glucose, Whole Blood Reviewed date:08/10/2023 04:15:52 PM Interpretation:Normal Performing Lab:[facility], [address] [place] [phone] Notes/Report: Glucose, Whole Blood 94 60-115 mg/dL METER # : [id number] Glucose, Whole Blood Reviewed date:08/11/2023 10:10:22 AM Interpretation:Abnormal Performing Lab:[facility], [address] [place] [phone] Notes/Report: Glucose, Whole Blood 196 60-115 mg/dL METER # : [id number] Complete Blood Count Auto Di ff Reviewed date:08/11/2023 10:10:22 AM Interpretation:Abnormal Performing Lab:[facility], [address] [place] [phone] Notes/Report: White Blood Count 6.5 4.8-10.8 X10*3/uL Red Blood Count 2.34 4.20-5.50 X10*6/uL Hemoglobin 8.0 12.0-16.0 g/dl Hematocrit 23.9 37.0-47.0 % Mean Corpuscular Volume 102.1 80.0-98.0 fL Mean Corpuscular Hemoglobin 34.2 27.0-33.0 pg Mean Corpuscular HGB Conc 33.5 31.0-35.0 g/dl Red Cell Distribution Width 16.3 11.0-16.0 % Platelet Count 148 160-400 X10*3/uL Mean Platelet Volume 9.5 9.4-12.3 fL Neutrophils Percent Auto 57.3 45-73 % Imm Gran Pct Auto 0.5 0.0-0.4 % Lymphocytes Percent Auto 26.9 20-40 % Monocytes Percent Auto 11.4 2-11 % Eosinophils Percent Auto 3.6 0-4 % Basophils Percent Auto 0.3 0-2 % NRBC Pct Auto 0.0 0.0-0.2 /100WBC Neutrophils Absolute Auto 3.7 2.0-8.3 x10*3/u L Imm Gran Abs Auto 0.03 0.00-0.03 X10*3/uL Lymphocytes Absolute Auto 1.7 1.2-4.9 X10*3/u L Monocytes Absolute Auto 0.7 0.1-1.2 X10*3/uL Eosinophils Absolute Auto 0.2 0.0-0.4 X10*3/u L Basophils Absolute Auto 0.0 0.0-0.2 X10*3/uL NRBC Abs Auto 0.000 0.0-0.012 X10*3/uL Basic Metabolic Panel Reviewed date:08/11/2023 10:10:22 AM Interpretation:Abnormal Performing Lab:[facility], [address] [place] [phone] Notes/Report: Sodium 142 135-145 mmol/L Potassium 3.2 3.3-5.1 mmol/L Chloride 105 96-108 mmol/L Carbon Dioxide 27 22-29 mmol/L Anion Gap 13 12-20 Blood Urea Nitrogen 34 9-16 mg/dL Creatinine 1.70 0.5-1.4 mg/dL Creatinine Clr Calc Pharmacy 23.0 Provided height and weight: 154.94 cm, 58.06 kg. eGFR (calculated from the MDRD study equation) and eCrCl (calculated from the Cockcroft-Gault equation) are based on different parameters and may not yield comparable results. If eCrCl result is absurd, please check patient's height/weight. Estimated Glomerular Filt Rate 29 NOTE: For -Trinidadian individuals, multiply the result by 1.210. Chronic Kidney Disease: Estimated GFR < 60 mL/min/1.73m2 Severe Kidney Disease: Estimated GFR < 15 mL/min/1.73m2 Glucose Random 117 60-115 mg/dL Calcium 8.8 8.4-10.2 mg/dL Magnesium Reviewed date:08/11/2023 10:10:22 AM Interpretation:Normal Performing Lab:[facility], [address] [place] [phone] Notes/Report: Magnesium 2.2 1.6-2.6 mg/dL Glucose, Whole Blood Reviewed date:08/11/2023 10:10:22 AM Interpretation:Abnormal Performing Lab:[facility], [address] [place] [phone] Notes/Report: Glucose, Whole Blood 120 60-115 mg/dL METER # : [id number] Glucose, Whole Blood Reviewed date:08/11/2023 04:07:23 PM Interpretation:Abnormal Performing Lab:[facility], [address] [place] [phone] Notes/Report: Glucose, Whole Blood 151 60-115 mg/dL METER # : [id number] Urinalysis and Microscopic Reviewed date:08/15/2023 08:56:05 PM Interpretation:Abnormal Performing Lab:[facility], [address] [place] [phone] Notes/Report: Color Urine Yellow Appearance Urine Cloudy PH 5.5 5.0-9.0 Glucose Urine UA Negative Negative mg/dL Urine Blood Negative Negative Specific [place] - Urine 1.010 1.005-1.025 Urine Protein 30 (1+) Neg-Trace mg/dL Urine Ketones Negative Negative mg/dL Nitrite Urine Positive Negative Leukocyte Esterase Urine Moderate (2+) Negative RBC Urine 0-2 0-2 /HPF WBC Urine >50 0-5 /HPF Squamous Epithelial Cell Urine 11-20 0-2 /HPF Bacteria Urine 4+ None Seen Hyaline Casts Urine 3-5 0-2 /LPF Liver Panel Reviewed date:08/15/2023 08:56:05 PM Interpretation:Abnormal Performing Lab:[facility], [address] [place] [phone] Notes/Report: Bilirubin Total 0.6 0.0-1.0 mg/dL Bilirubin Direct 0.3 0.0-0.5 mg/dL Aspartate Amino Transferase 25 5-31 U/L Alanine Aminotransferase 37 0-31 U/L Total Protein 7.2 6.5-8.0 g/dL Albumin Level 3.9 3.5-5.0 g/dL Alkaline Phosphatase 59 39-117 U/L Basic Metabolic Panel Reviewed date:08/15/2023 08:58:22 PM Interpretation:Abnormal Performing Lab:[facility], [address] [place] [phone] Notes/Report: Sodium 144 135-145 mmol/L Potassium 3.6 3.3-5.1 mmol/L Chloride 106 96-108 mmol/L Carbon Dioxide 29 22-29 mmol/L Anion Gap 13 12-20 Blood Urea Nitrogen 26 9-16 mg/dL Creatinine 1.42 0.5-1.4 mg/dL Estimated Glomerular Filt Rate 36 NOTE: For -Trinidadian individuals, multiply the result by 1.210. Chronic Kidney Disease: Estimated GFR < 60 mL/min/1.73m2 Severe Kidney Disease: Estimated GFR < 15 mL/min/1.73m2 Glucose Random 174 60-115 mg/dL Calcium 9.1 8.4-10.2 mg/dL TSH reflex Free T4 Reviewed date:08/15/2023 08:56:05 PM Interpretation:Normal Performing Lab:[facility], [address] [place] [phone] Notes/Report: TSH reflex Free T4 3.45 0.32-4.0 uIU/mL Complete Blood Count Auto Di ff Reviewed date:08/15/2023 08:56:05 PM Interpretation:Abnormal Performing Lab:[facility], [address] [place] [phone] Notes/Report: White Blood Count 5.6 4.8-10.8 X10*3/uL Red Blood Count 2.55 4.20-5.50 X10*6/uL Hemoglobin 8.8 12.0-16.0 g/dl Hematocrit 27.1 37.0-47.0 % Mean Corpuscular Volume 106.3 80.0-98.0 fL Mean Corpuscular Hemoglobin 34.5 27.0-33.0 pg Mean Corpuscular HGB Conc 32.5 31.0-35.0 g/dl Red Cell Distribution Width 15.9 11.0-16.0 % Platelet Count 190 160-400 X10*3/uL Mean Platelet Volume 9.6 9.4-12.3 fL Neutrophils Percent Auto 64.6 45-73 % Imm Gran Pct Auto 0.4 0.0-0.4 % Lymphocytes Percent Auto 19.9 20-40 % Monocytes Percent Auto 10.7 2-11 % Eosinophils Percent Auto 3.9 0-4 % Basophils Percent Auto 0.5 0-2 % NRBC Pct Auto 0.0 0.0-0.2 /100WBC Neutrophils Absolute Auto 3.6 2.0-8.3 x10*3/u L Imm Gran Abs Auto 0.02 0.00-0.03 X10*3/uL Lymphocytes Absolute Auto 1.1 1.2-4.9 X10*3/u L Monocytes Absolute Auto 0.6 0.1-1.2 X10*3/uL Eosinophils Absolute Auto 0.2 0.0-0.4 X10*3/u L Basophils Absolute Auto 0.0 0.0-0.2 X10*3/uL NRBC Abs Auto 0.000 0.0-0.012 X10*3/uL B Type Natriuretic Peptide Reviewed date:08/15/2023 08:56:19 PM Interpretation:Abnormal Performing Lab:[facility], [address] [place] [phone] Notes/Report: B Type Natriuretic Peptide 765 <100 pg/mL For those patients who are being treated with Natrecor (nesiritide, recombinant BNP), BNP testing should be performed at least two hours post treatment in order to ensure that only endogenous levels of BNP are detected. Complete Blood Count no Diff Reviewed date:08/21/2023 04:45:20 PM Interpretation:Abnormal Performing Lab:[facility], [address] [place] [phone] Notes/Report: White Blood Count 6.8 4.8-10.8 X10*3/uL Red Blood Count 2.33 4.20-5.50 X10*6/uL Hemoglobin 8.3 12.0-16.0 g/dl Hematocrit 24.6 37.0-47.0 % Mean Corpuscular Volume 105.6 80.0-98.0 fL Mean Corpuscular Hemoglobin 35.6 27.0-33.0 pg Mean Corpuscular HGB Conc 33.7 31.0-35.0 g/dl Red Cell Distribution Width 15.8 11.0-16.0 % Platelet Count 164 160-400 X10*3/uL Mean Platelet Volume 8.8 9.4-12.3 fL NRBC Pct Auto 0.0 0.0-0.2 /100WBC NRBC Abs Auto 0.000 0.0-0.012 X10*3/uL Type and Screen Reviewed date:08/21/2023 05:34:02 PM Interpretation:Negative Performing Lab:[facility], [address] [place] [phone] Notes/Report: Witnessed by [facility] Blood Type BP Antibody Screen NEGATIVE XR DEXA axial skeleton Reviewed date:08/31/2023 12:30:01 PM Interpretation:Abnormal Performing Lab: Notes/Report: [address] [place] [address] Mammography Report Signed Patient: Tonia Hernandez MR#: [id number] : 1945 Acct:[id number] Age/Sex: 77 / F ADM Date: 08/29/23 Loc: HO.MAMMO Attending Dr: Juliann Tse MD Ordering Physician: Juliann Tse MD Results: Date of Service: 08/29/23 Follow Up: Procedure(s): XR DEXA axial skeleton Accession Number(s): [id number] cc: Juliann Tse MD; John Avina DO EXAMINATION: BONE DENSITOMETRY CLINICAL INDICATION: Postmenopausal bone loss. COMPARISON: Baseline BD dated 08/06/2013. TECHNIQUE: Using a [employer] DXA System (software version: 13.1) manufactured by [employer], dual-energy x-ray absorptiometry was performed of the lumbar spine and left hip. The images are of good technical quality. Summary results are attached. FINDINGS: LEFT FEMUR, NECK: Current: BMD 0.666 g/cm2, Z-score -0.5, T-score -2.7, osteoporosis. Baseline: BMD 0.798 g/cm2. LEFT FEMUR, TOTAL: Current: BMD 0.726 g/cm2, Z-score -0.3, T-score -2.2, osteopenia, 19.1% decrease from baseline (<5% change is not significant). Baseline: BMD 0.897 g/cm2. AP SPINE L1-L2 (excluding L3 and L4): The data of L1-L4 has been changed to exclude the L3 and L4 vertebral bodies, because degenerative sclerosis at these levels may cause overestimation of lumbar spine density. Current: BMD 1.319 g/cm2, Z-score 3.3, T-score 1.3, normal, 2.4% increase from baseline (<5% change is not significant). Baseline: BMD 1.288 g/cm2. IDENTIFIED RISK FACTORS: Menopause, renal, rheumatoid arthritis. HISTORY OF FRACTURE: None listed. MEDICATIONS: Calcium, vitamin D. MM/XR DEXA axial skeleton IMPRESSION: 1. DIAGNOSIS: Osteoporosis based on the lowest T-score value of -2.7 in the femoral neck applying World Health Organization criteria. 2. 10-YEAR FRACTURE RISK PREDICTION, FRAX: According to the guidelines, FRAX calculation should only be performed on patients in the osteopenia bone density category. Therefore, FRAX was not performed on this patient.? 3. Treatment Recommendations: NOF guidelines recommend consideration for treatment in postmenopausal women and men age 50 and older presenting with the following: -A hip or vertebral (clinical or morphometric) fracture. -T-score less than or equal to -2.5 at the femoral neck or spine after appropriate evaluation to exclude secondary causes. -Low bone mass at the hip or spine and a 10-year fracture probability by FRAX of greater than or equal to 3% for hip fracture or greater than or equal to 20% for major osteoporotic fracture based on the [place] adapted WHO algorithm. 4. Other Recommendations: All treatment decisions require clinical judgment and consideration of individual patient factors, including patient preferences, comorbidities, previous drug use, risk factors not captured in the FRAX model (e.g. frailty, falls, vitamin D deficiency, increased bone turnover, interval significant decline in bone density) and possible under or overestimation of fracture risk by FRAX. Additional medical evaluation for secondary cause of low bone mineral density may be appropriate. FUTURE SCAN RECOMMENDATION: People with diagnosed cases of osteoporosis or at high risk for fracture should have regular bone mineral density tests. For patients eligible for Medicare, routine testing is allowed once every 2 years. The testing frequency can be increased to one year for patients who have rapidly progressing disease, those who are receiving or discontinuing medical therapy to restore bone mass, or have additional risk factors. Dictated By: Arnoldo Merino MD Signed By: <Electronically signed by Arnoldo Merino MD in OV> 08/30/23 0941 DD/ 1347 TD/TT: Aeronautical Engineering Technologist: MORENA Complete Blood Count Auto Di ff Reviewed date:09/11/2023 06:19:56 PM Interpretation:Abnormal Performing Lab:[facility], [address] [place] [phone] Notes/Report: White Blood Count 5.0 4.8-10.8 X10*3/uL Red Blood Count 2.04 4.20-5.50 X10*6/uL Hemoglobin 7.3 12.0-16.0 g/dl Hematocrit 21.7 37.0-47.0 % Mean Corpuscular Volume 106.4 80.0-98.0 fL Mean Corpuscular Hemoglobin 35.8 27.0-33.0 pg Mean Corpuscular HGB Conc 33.6 31.0-35.0 g/dl Red Cell Distribution Width 14.6 11.0-16.0 % Platelet Count 158 160-400 X10*3/uL Mean Platelet Volume 10.1 9.4-12.3 fL Neutrophils Percent Auto 64.2 45-73 % Imm Gran Pct Auto 0.2 0.0-0.4 % Lymphocytes Percent Auto 21.2 20-40 % Monocytes Percent Auto 10.2 2-11 % Eosinophils Percent Auto 3.8 0-4 % Basophils Percent Auto 0.4 0-2 % NRBC Pct Auto 0.0 0.0-0.2 /100WBC Neutrophils Absolute Auto 3.2 2.0-8.3 x10*3/u L Imm Gran Abs Auto 0.01 0.00-0.03 X10*3/uL Lymphocytes Absolute Auto 1.1 1.2-4.9 X10*3/u L Monocytes Absolute Auto 0.5 0.1-1.2 X10*3/uL Eosinophils Absolute Auto 0.2 0.0-0.4 X10*3/u L Basophils Absolute Auto 0.0 0.0-0.2 X10*3/uL NRBC Abs Auto 0.000 0.0-0.012 X10*3/uL Prothrombin Time INR Reviewed date:09/11/2023 06:19:56 PM Interpretation:Normal Performing Lab:[address] [phone] Notes/Report: Prothrombin Time 12.0 11.1-13.3 SEC INTERNATIONAL NORM RATIO 1.0 0.9-1.1 INTERNATIONAL NORMALIZED RATIO (INR) REFERENCE RANGES Reference Range For patients not on anticoagulant therapy: 0.9 - 1.1 INR ranges for oral anticoagulant therapy: For prevention and treatment of venous thrombosis and pulmonary embolism: 2.0 - 3.0 For acute myocardial infarction with aspirin therapy: 2.0 - 3.0 For acute myocardial infarction without aspirin therapy: 3.0 - 4.0 For patients with mechanical prosthetic heart valves: 2.5 - 3.5 Basic Metabolic Panel Reviewed date:09/11/2023 06:19:56 PM Interpretation:Abnormal Performing Lab:[address] [address] Notes/Report: Sodium 144 135-145 mmol/L Potassium 3.8 3.3-5.1 mmol/L Chloride 111 96-108 mmol/L Carbon Dioxide 22 22-29 mmol/L Anion Gap 15 12-20 Blood Urea Nitrogen 37 9-16 mg/dL Creatinine 1.67 0.5-1.4 mg/dL Estimated Glomerular Filt Rate 30 NOTE: For -Trinidadian individuals, multiply the result by 1.210. Chronic Kidney Disease: Estimated GFR < 60 mL/min/1.73m2 Severe Kidney Disease: Estimated GFR < 15 mL/min/1.73m2 Glucose Random 167 60-115 mg/dL Calcium 9.4 8.4-10.2 mg/dL Troponin-I High Sensitivity Reviewed date:09/23/2023 09:32:33 AM Interpretation:Abnormal Performing Lab:[address] [address] Notes/Report: Troponin-I High Sensitivity 344.6 <3.5-17.0 ng/L Critical value for test(TROP): Results called to and read back by: ROBYN Person calling: REGINA Date: 09/22/23 Time: 2206 The Live high sensitivity Troponin-I results should be used in conjunction with other diagnostic information such as ECG, clinical observations and information, and patient symptoms to aid in the diagnosis of [place]. Urine Culture Reviewed date:09/25/2023 09:50:47 AM Interpretation:Positive Performing Lab:[address] [address] Notes/Report: O:KLEPNE Klebsiella pneumoniae Urine Culture Quant Urine Culture > 100,000 cfu/mL Ampicillin >=32 Ceftriaxone <=0.25 Gentamicin <=1 Levofloxacin <=0.12 Nitrofurantoin 128 Trimethoprim/Sulfamethoxa zole <=20 UA ClnCatch+Micro w/rflx Cul t Reviewed date:09/23/2023 09:32:33 AM Interpretation:Abnormal Performing Lab:[address] [address] Notes/Report: [id number] Urine, Clean Catch Color Urine Yellow Appearance Urine Cloudy PH 5.5 5.0-9.0 Glucose Urine UA Negative Negative mg/dL Urine Blood Negative Negative Specific [place] - Urine 1.010 1.005-1.025 Urine Protein 30 (1+) Neg-Trace mg/dL Urine Ketones Negative Negative mg/dL Nitrite Urine Negative Negative Leukocyte Esterase Urine Large (3+) Negative RBC Urine 0-2 0-2 /HPF WBC Urine >50 0-5 /HPF Squamous Epithelial Cell Urine 3-5 0-2 /HPF Bacteria Urine 4+ None Seen Hyaline Casts Urine 6-10 0-2 /LPF Type and Screen Reviewed date:09/23/2023 09:32:33 AM Interpretation:Negative Performing Lab:[address] [address] Notes/Report: Results at Issue Units as of 09/22/23 1927 ... Test View Group: Most Recent HGB HCT Results LABORATORY Date Time Test Result Flag Normal Range 09/22/23 1623 HGB 6.4 *L 12.0-16.0 g/dl Results of called to and read back by GUSTAVO on 09/22/23 at 1638 by VICENTE. 09/22/23 1623 HCT 19.1 *L 37.0-47.0 % Results at Issue Units as of 09/23/23 0026 ... Test View Group: Most Recent HGB HCT Results LABORATORY Date Time Test Result Flag Normal Range 09/22/23 1623 HGB 6.4 *L 12.0-16.0 g/dl Results of HH called to and read back by GUSTAVO on 09/22/23 at 1638 by VICENTE. 09/22/23 1623 HCT 19.1 *L 37.0-47.0 % Hgb < 7 gm Yes Blood Type BP Antibody Screen NEGATIVE Red Blood Cells Reviewed date:09/23/2023 09:32:51 AM Interpretation:Transfused Performing Lab:[facility], [address] [place] [address] Notes/Report: Red Blood Cells [id number] BP RC Red Blood Cells TRANSFUSED 09/22/23 1922 Red Blood Cells [id number] BP RC Red Blood Cells TRANSFUSED 09/23/23 0023 XR chest 2V Reviewed date:09/23/2023 09:34:36 AM Interpretation:Abnormal Performing Lab: Notes/Report: [address] [address] XRay Report Signed Patient: Tonia Hernandez MR#: [id number] : 1945 Acct:[id number] Age/Sex: 78 / F ADM Date: 09/22/23 Loc: .ED Attending Dr: Ordering Physician: Rachael Cleary NP Date of Service: 09/22/23 Procedure(s): XR chest 2V Accession Number(s): [id number] cc: John Avina DO; Rachael Cleary NP EXAMINATION: XR CHEST CLINICAL INFORMATION: Dizziness and weakness. COMPARISON: Chest radiographs dated 08/09/2023. TECHNIQUE: Frontal and lateral views of the chest were obtained. FINDINGS: There is stable cardiomegaly. There is atherosclerotic calcification of the aortic knob. Lung volumes are diminished, with crowding of bronchovascular and pulmonary parenchymal markings. No infiltrate, effusion or pneumothorax is seen. There is no acute osseous abnormality. There is multi-level thoracic and upper lumbar spondylosis. XR/XR chest 2V IMPRESSION: Lung volumes are diminished. No focal infiltrate or congestive heart failure is seen. There is stable cardiomegaly. Dictated By: Glen Moreno MD Signed By: <Electronically signed by Glen Moreno MD in OV> 09/22/23 1703 DD/ 1614 TD/TT: Aeronautical Engineering Technologist: BRENDA Complete Blood Count no Diff Reviewed date:09/23/2023 09:32:33 AM Interpretation:Abnormal Performing Lab:[facility], [address] [place] [address] Notes/Report: White Blood Count 7.8 4.8-10.8 X10*3/uL Red Blood Count 2.77 4.20-5.50 X10*6/uL Hemoglobin 9.7 12.0-16.0 g/dl Hematocrit 27.4 37.0-47.0 % Mean Corpuscular Volume 98.9 80.0-98.0 fL Mean Corpuscular Hemoglobin 35.0 27.0-33.0 pg Mean Corpuscular HGB Conc 35.4 31.0-35.0 g/dl Red Cell Distribution Width 16.4 11.0-16.0 % Platelet Count 153 160-400 X10*3/uL Mean Platelet Volume 9.4 9.4-12.3 fL NRBC Pct Auto 0.0 0.0-0.2 /100WBC NRBC Abs Auto 0.000 0.0-0.012 X10*3/uL Comprehensive Met. Panel Reviewed date:09/23/2023 09:32:33 AM Interpretation:Abnormal Performing Lab:[address] [address] Notes/Report: Sodium 142 135-145 mmol/L Potassium 3.8 3.3-5.1 mmol/L Slight Hemoly sis Chloride 106 96-108 mmol/L Carbon Dioxide 19 22-29 mmol/L Anion Gap 21 12-20 Blood Urea Nitrogen 53 9-16 mg/dL Creatinine 3.01 0.5-1.4 mg/dL Creatinine Clr Calc Pharmacy 13.3 Provided height and weight: 154.94 cm, 63 kg. eGFR (calculated from the MDRD study equation) and eCrCl (calculated from the Cockcroft-Gault equation) are based on different parameters and may not yield comparable results. If eCrCl result is absurd, please check patient's height/weight. Estimated Glomerular Filt Rate 15 NOTE: For -Trinidadian individuals, multiply the result by 1.210. Chronic Kidney Disease: Estimated GFR < 60 mL/min/1.73m2 Severe Kidney Disease: Estimated GFR < 15 mL/min/1.73m2 Glucose Random 106 60-115 mg/dL Calcium 8.6 8.4-10.2 mg/dL Bilirubin Total 1.2 0.0-1.0 mg/dL Aspartate Amino Transferase 19 5-31 U/L Slight Hemolysis Alanine Aminotransferase 16 0-31 U/L Total Protein 6.6 6.5-8.0 g/dL Albumin Level 3.6 3.5-5.0 g/dL Alkaline Phosphatase 55 39-117 U/L Glucose, Whole Blood Reviewed date:09/23/2023 09:32:33 AM Interpretation:Abnormal Performing Lab:[address] [address] Notes/Report: Glucose, Whole Blood 120 60-115 mg/dL METER # : [id number] Glucose, Whole Blood Reviewed date:09/23/2023 07:28:16 PM Interpretation:Abnormal Performing Lab:[facility], [address] [place] [address] Notes/Report: Glucose, Whole Blood 138 60-115 mg/dL METER # : [id number] Glucose, Whole Blood Reviewed date:09/23/2023 07:29:16 PM Interpretation:Abnormal Performing Lab:[facility], [address] [place] [address] Notes/Report: Glucose, Whole Blood 180 60-115 mg/dL METER # : [id number] Glucose, Whole Blood Reviewed date:09/24/2023 10:33:14 AM Interpretation:Abnormal Performing Lab:[facility], [address] [place] [address] Notes/Report: Glucose, Whole Blood 130 60-115 mg/dL METER # : [id number] Complete Blood Count no Diff Reviewed date:09/24/2023 10:33:14 AM Interpretation:Abnormal Performing Lab:[facility], [address] [place] [address] Notes/Report: White Blood Count 7.1 4.8-10.8 X10*3/uL Red Blood Count 2.86 4.20-5.50 X10*6/uL Hemoglobin 9.6 12.0-16.0 g/dl Hematocrit 27.9 37.0-47.0 % Mean Corpuscular Volume 97.6 80.0-98.0 fL Mean Corpuscular Hemoglobin 33.6 27.0-33.0 pg Mean Corpuscular HGB Conc 34.4 31.0-35.0 g/dl Red Cell Distribution Width 16.0 11.0-16.0 % Platelet Count 146 160-400 X10*3/uL Mean Platelet Volume 9.1 9.4-12.3 fL NRBC Pct Auto 0.0 0.0-0.2 /100WBC NRBC Abs Auto 0.000 0.0-0.012 X10*3/uL Basic Metabolic Panel Fastin g Reviewed date:09/24/2023 10:33:14 AM Interpretation:Abnormal Performing Lab:[facility], [address] [place] [address] Notes/Report: Sodium 144 135-145 mmol/L Potassium 3.4 3.3-5.1 mmol/L Chloride 108 96-108 mmol/L Carbon Dioxide 22 22-29 mmol/L Anion Gap 17 12-20 Blood Urea Nitrogen 52 9-16 mg/dL Creatinine 2.53 0.5-1.4 mg/dL Creatinine Clr Calc Pharmacy 15.5 Provided height and weight: 154.94 cm, 60.2 kg. eGFR (calculated from the MDRD study equation) and eCrCl (calculated from the Cockcroft-Gault equation) are based on different parameters and may not yield comparable results. If eCrCl result is absurd, please check patient's height/weight. Estimated Glomerular Filt Rate 18 NOTE: For -Trinid[place] individuals, multiply the result by 1.210. Chronic Kidney Disease: Estimated GFR < 60 mL/min/1.73m2 Severe Kidney Disease: Estimated GFR < 15 mL/min/1.73m2 Glucose Fasting 111 60-99 mg/dL A fasting glucose from 100-125 mg/dl is considered impaired (pre-diabetes). Calcium 9.3 8.4-10.2 mg/dL Glucose, Whole Blood Reviewed date:09/24/2023 10:33:14 AM Interpretation:Normal Performing Lab:[facility], [address] [place] [address] Notes/Report: Glucose, Whole Blood 111 60-115 mg/dL METER # : [id number] Glucose, Whole Blood Reviewed date:09/24/2023 12:26:49 PM Interpretation:Abnormal Performing Lab:[facility], [address] [place] [address] Notes/Report: Glucose, Whole Blood 172 60-115 mg/dL METER # : [id number] Complete Blood Count no Diff Reviewed date:09/30/2023 04:55:56 PM Interpretation:Abnormal Performing Lab:[facility], [address] [place] [address] Notes/Report: White Blood Count 7.0 4.8-10.8 X10*3/uL Red Blood Count 2.89 4.20-5.50 X10*6/uL Hemoglobin 9.9 12.0-16.0 g/dl Hematocrit 28.9 37.0-47.0 % Mean Corpuscular Volume 100.0 80.0-98.0 fL Mean Corpuscular Hemoglobin 34.3 27.0-33.0 pg Mean Corpuscular HGB Conc 34.3 31.0-35.0 g/dl Red Cell Distribution Width 16.7 11.0-16.0 % Platelet Count 205 160-400 X10*3/uL Mean Platelet Volume 9.4 9.4-12.3 fL NRBC Pct Auto 0.0 0.0-0.2 /100WBC NRBC Abs Auto 0.000 0.0-0.012 X10*3/uL Basic Metabolic Panel Reviewed date:09/30/2023 04:56:15 PM Interpretation:Abnormal Performing Lab:[facility], [address] [place] [phone] Notes/Report: Sodium 140 135-145 mmol/L Potassium 4.0 3.3-5.1 mmol/L Chloride 104 96-108 mmol/L Carbon Dioxide 28 22-29 mmol/L Anion Gap 12 12-20 Blood Urea Nitrogen 27 9-16 mg/dL Creatinine 1.74 0.5-1.4 mg/dL Estimated Glomerular Filt Rate 28 NOTE: For -Trinidadian individuals, multiply the result by 1.210. Chronic Kidney Disease: Estimated GFR < 60 mL/min/1.73m2 Severe Kidney Disease: Estimated GFR < 15 mL/min/1.73m2 Glucose Random 221 60-115 mg/dL Calcium 9.9 8.4-10.2 mg/dL Complete Blood Count Auto Di ff Reviewed date:10/30/2023 03:16:20 PM Interpretation:Abnormal Performing Lab:[facility], [address] [place] [phone] Notes/Report: White Blood Count 6.7 4.8-10.8 X10*3/uL Red Blood Count 2.36 4.20-5.50 X10*6/uL Hemoglobin 8.2 12.0-16.0 g/dl Hematocrit 24.3 37.0-47.0 % Mean Corpuscular Volume 103.0 80.0-98.0 fL Mean Corpuscular Hemoglobin 34.7 27.0-33.0 pg Mean Corpuscular HGB Conc 33.7 31.0-35.0 g/dl Red Cell Distribution Width 16.2 11.0-16.0 % Platelet Count 162 160-400 X10*3/uL Mean Platelet Volume 8.9 9.4-12.3 fL Neutrophils Percent Auto 68.9 45-73 % Imm Gran Pct Auto 0.3 0.0-0.4 % Lymphocytes Percent Auto 16.7 20-40 % Monocytes Percent Auto 7.7 2-11 % Eosinophils Percent Auto 5.9 0-4 % Basophils Percent Auto 0.5 0-2 % NRBC Pct Auto 0.0 0.0-0.2 /100WBC Neutrophils Absolute Auto 4.6 2.0-8.3 x10*3/u L Imm Gran Abs Auto 0.02 0.00-0.03 X10*3/uL Lymphocytes Absolute Auto 1.1 1.2-4.9 X10*3/u L Monocytes Absolute Auto 0.5 0.1-1.2 X10*3/uL Eosinophils Absolute Auto 0.4 0.0-0.4 X10*3/u L Basophils Absolute Auto 0.0 0.0-0.2 X10*3/uL NRBC Abs Auto 0.000 0.0-0.012 X10*3/uL Comprehensive Met. Panel Reviewed date:10/30/2023 03:28:23 PM Interpretation:Abnormal Performing Lab:[facility], [address] [place] [address] Notes/Report: Sodium 145 135-145 mmol/L Potassium 4.2 3.3-5.1 mmol/L Chloride 106 96-108 mmol/L Carbon Dioxide 31 22-29 mmol/L Anion Gap 12 12-20 Blood Urea Nitrogen 24 9-16 mg/dL Creatinine 2.05 0.5-1.4 mg/dL Creatinine Clr Calc Pharmacy 19.0 Provided height and weight: 154.94 cm, 60 kg. eGFR (calculated from the MDRD study equation) and eCrCl (calculated from the Cockcroft-Gault equation) are based on different parameters and may not yield comparable results. If eCrCl result is absurd, please check patient's height/weight. Estimated Glomerular Filt Rate 23 NOTE: For -Trinid[place] individuals, multiply the result by 1.210. Chronic Kidney Disease: Estimated GFR < 60 mL/min/1.73m2 Severe Kidney Disease: Estimated GFR < 15 mL/min/1.73m2 Glucose Random 151 60-115 mg/dL Calcium 9.7 8.4-10.2 mg/dL Bilirubin Total 0.9 0.0-1.0 mg/dL Aspartate Amino Transferase 22 5-31 U/L Alanine Aminotransferase 31 0-31 U/L Total Protein 7.1 6.5-8.0 g/dL Albumin Level 4.1 3.5-5.0 g/dL Alkaline Phosphatase 64 39-117 U/L Vitamin D 25-OH Total Reviewed date:10/30/2023 04:02:48 PM Interpretation:Normal Performing Lab:[facility] [address] [address] Notes/Report: Vitamin D 25-OH Total 48.8 >30 ng/mL Health Based Reference Values* < 20 ng/mL Deficient 20-30 ng/mL Insufficient > 30 ng/mL Sufficient *Alvin VAZ. N Engl J Med. 2007;357:266-280 Care must be taken in interpreting Vitamin D results from different laboratories and methodologies. Published data demonstrated that results from patients undergoing hemodialysis may show a negative bias when tested with various automated 25-OH vitamin D assays when compared to LC-MS/MS. When testing samples from patients whose predominant form of Vitamin D is Vitamin D2, such as patients receiving Vitamin D2 supplementation, results that are subtherapeutic should be confirmed with another method such as LC-MS/MS. Leukemia/Lymph. [place]. Bone M ar Reviewed date:11/21/2023 01:03:36 PM Interpretation:See Note Performing Lab:[address] [address] Notes/Report: ANEMIA [id number] LEFT ILEUM LLE Interpretation See Note See repor t from [employer] in the EMR. Chromosome Anal. Bone Marrow Reviewed date:11/26/2023 09:20:46 AM Interpretation:See note Performing Lab:[facility], [address] [place] [phone] Notes/Report: LEFT ILEUM ANEMIA [id number] 1340 Chromosome Anal. Bone Marrow See note See report from [employer] in the EMR. Glucose, Whole Blood Reviewed date:11/19/2023 12:31:12 PM Interpretation:Normal Performing Lab:[facility], [address] [place] [phone] Notes/Report: Glucose, Whole Blood 104 60-115 mg/dL METER # : [id number] Pathology Reviewed date:01/31/2024 11:06:51 AM Interpretation:Abnormal Performing Lab:[address] [address] Notes/Report: [employer] Other Ref Reviewed date:11/28/2023 04:16:18 PM Interpretation:See note Performing Lab:[address] [address] Notes/Report: [employer]/NGS [facility] Myeloid Disorders [employer] Other Ref See Note See re port from [employer] in the EMR. CT biopsy aspirate bone maryellen ow Reviewed date:11/19/2023 02:57:54 PM Interpretation:Successful Performing Lab: Notes/Report: [address] [address] [address] Scan Report Signed Patient: Tonia Hernandez MR#: [id number] : 1945 Acct:[id number] Age/Sex: 78 / F ADM Date: 11/19/23 Loc: [facility] Attending Dr: Juliann Tse MD Ordering Physician: Juliann Tse MD Date of Service: 11/19/23 Procedure(s): CT biopsy asp core bone marrow Accession Number(s): [id number] cc: Juliann Tse MD; John Avina DO History: Anemia Procedures performed: 1. CT-guided bone marrow aspiration and core biopsy sample of ileum Physician: Emily Alfredo MD Anesthesia: IV moderate sedation with intravenous fentanyl and Versed was administered under my supervision with continuous physiologic monitoring for a total of 30 minutes. 8 mL of 1% lidocaine was administered for local anesthesia. Specimen: Single core specimen of left ilium; 20 mL bone marrow aspirate. Drain: None Estimated blood loss: Minimal Complications: None Procedure in detail: Informed and written consent was obtained. Patient was positioned prone on the CT examination table. Preliminary CT scan showed an appropriate site for access to the left ilium. The overlying skin was prepped and draped. 1% lidocaine was injected subcutaneously and extended to the periosteum. A small incision was made in the skin with a #11 blade. The 13-gauge needle of the [employer] device was drilled beyond the proximal cortex into the left ilium. A 20 mL aspirate of marrow was then obtained. Further drilling was then performed deeper into the left ilium and the needle was subsequently removed. A core was placed in formalin and determined to be adequate. A sterile dressing was applied. Summary: Successful CT-guided bone marrow aspiration and core biopsy sample of the ileum. Dictated By: Ortega Alfredo MD Signed By: <Electronically signed by Ortega Alfredo MD in OV> 11/19/23 1405 DD/ 1345 TD/TT: Aeronautical Engineering Technologist: Complete Blood Count Auto Di ff Reviewed date:11/22/2023 01:13:19 PM Interpretation:Abnormal Performing Lab:[facility], [address] [place] [address] Notes/Report: White Blood Count 10.4 4.8-10.8 X10*3/uL Red Blood Count 2.03 4.20-5.50 X10*6/uL Hemoglobin 7.4 12.0-16.0 g/dl Hematocrit 21.5 37.0-47.0 % Mean Corpuscular Volume 105.9 80.0-98.0 fL Mean Corpuscular Hemoglobin 36.5 27.0-33.0 pg Mean Corpuscular HGB Conc 34.4 31.0-35.0 g/dl Red Cell Distribution Width 14.7 11.0-16.0 % Platelet Count 162 160-400 X10*3/uL Mean Platelet Volume 9.0 9.4-12.3 fL Neutrophils Percent Auto 76.8 45-73 % Imm Gran Pct Auto 0.4 0.0-0.4 % Lymphocytes Percent Auto 9.0 20-40 % Monocytes Percent Auto 12.5 2-11 % Eosinophils Percent Auto 1.1 0-4 % Basophils Percent Auto 0.2 0-2 % NRBC Pct Auto 0.0 0.0-0.2 /100WBC Neutrophils Absolute Auto 8.0 2.0-8.3 x10*3/u L Imm Gran Abs Auto 0.04 0.00-0.03 X10*3/uL Lymphocytes Absolute Auto 0.9 1.2-4.9 X10*3/u L Monocytes Absolute Auto 1.3 0.1-1.2 X10*3/uL Eosinophils Absolute Auto 0.1 0.0-0.4 X10*3/u L Basophils Absolute Auto 0.0 0.0-0.2 X10*3/uL NRBC Abs Auto 0.000 0.0-0.012 X10*3/uL Comprehensive Met. Panel Reviewed date:11/22/2023 06:50:43 PM Interpretation:Abnormal Performing Lab:[facility], [address] [place] [phone] Notes/Report: Sodium 142 135-145 mmol/L Potassium 3.7 3.3-5.1 mmol/L Chloride 106 96-108 mmol/L Carbon Dioxide 27 22-29 mmol/L Anion Gap 13 12-20 Blood Urea Nitrogen 29 9-16 mg/dL Creatinine 1.63 0.5-1.4 mg/dL Estimated Glomerular Filt Rate 31 NOTE: For -Trinidadian individuals, multiply the result by 1.210. Chronic Kidney Disease: Estimated GFR < 60 mL/min/1.73m2 Severe Kidney Disease: Estimated GFR < 15 mL/min/1.73m2 Glucose Random 133 60-115 mg/dL Calcium 9.6 8.4-10.2 mg/dL Bilirubin Total 1.0 0.0-1.0 mg/dL Aspartate Amino Transferase 29 5-31 U/L Alanine Aminotransferase 53 0-31 U/L Total Protein 7.2 6.5-8.0 g/dL Albumin Level 4.0 3.5-5.0 g/dL Alkaline Phosphatase 62 39-117 U/L Type and Screen Reviewed date:11/22/2023 06:50:12 PM Interpretation:Negative Performing Lab:[facility], [address] [place] [address] Notes/Report: Witnessed by KAVIN Results at Issue Units as of 11/22/23 1425 ... Test View Group: Most Recent HGB HCT Results LABORATORY Date Time Test Result Flag Normal Range 11/22/23 1259 HGB 7.4 L 12.0-16.0 g/dl 11/22/23 1259 HCT 21.5 L 37.0-47.0 % Hgb 7-9 gm No Blood Type BP Antibody Screen NEGATIVE Red Blood Cells Reviewed date:11/22/2023 06:50:12 PM Interpretation:Transfused Performing Lab:[facility], [address] [place] [address] Notes/Report: Red Blood Cells [id number] BP RC Red Blood Cells TRANSFUSED 11/22/23 1424 Complete Blood Count Auto Di ff Reviewed date:12/04/2023 04:06:16 PM Interpretation:Abnormal Performing Lab:[facility], [address] [place] [address] Notes/Report: White Blood Count 6.7 4.8-10.8 X10*3/uL Red Blood Count 2.23 4.20-5.50 X10*6/uL Hemoglobin 8.0 12.0-16.0 g/dl Hematocrit 23.3 37.0-47.0 % Mean Corpuscular Volume 104.5 80.0-98.0 fL Mean Corpuscular Hemoglobin 35.9 27.0-33.0 pg Mean Corpuscular HGB Conc 34.3 31.0-35.0 g/dl Red Cell Distribution Width 14.9 11.0-16.0 % Platelet Count 193 160-400 X10*3/uL Mean Platelet Volume 9.2 9.4-12.3 fL Neutrophils Percent Auto 72.5 45-73 % Imm Gran Pct Auto 0.6 0.0-0.4 % Lymphocytes Percent Auto 16.5 20-40 % Monocytes Percent Auto 8.0 2-11 % Eosinophils Percent Auto 2.1 0-4 % Basophils Percent Auto 0.3 0-2 % NRBC Pct Auto 0.0 0.0-0.2 /100WBC Neutrophils Absolute Auto 4.9 2.0-8.3 x10*3/u L Imm Gran Abs Auto 0.04 0.00-0.03 X10*3/uL Lymphocytes Absolute Auto 1.1 1.2-4.9 X10*3/u L Monocytes Absolute Auto 0.5 0.1-1.2 X10*3/uL Eosinophils Absolute Auto 0.1 0.0-0.4 X10*3/u L Basophils Absolute Auto 0.0 0.0-0.2 X10*3/uL NRBC Abs Auto 0.000 0.0-0.012 X10*3/uL [employer] Other Ref Reviewed date:12/17/2023 09:40:11 AM Interpretation:See note Performing Lab:[facility], [address] [place] [address] Notes/Report: FAUSTINO COMPREHENSIVE - MYELOID DISORDERS [employer] Other Ref See Note See re port from [employer] in the EMR. Complete Blood Count Auto Di ff Reviewed date:12/10/2023 01:59:31 PM Interpretation:Abnormal Performing Lab:[facility], [address] [place] [address] Notes/Report: White Blood Count 5.8 4.8-10.8 X10*3/uL Red Blood Count 2.21 4.20-5.50 X10*6/uL Hemoglobin 7.7 12.0-16.0 g/dl Hematocrit 23.8 37.0-47.0 % Mean Corpuscular Volume 107.7 80.0-98.0 fL Mean Corpuscular Hemoglobin 34.8 27.0-33.0 pg Mean Corpuscular HGB Conc 32.4 31.0-35.0 g/dl Red Cell Distribution Width 14.9 11.0-16.0 % Platelet Count 152 160-400 X10*3/uL Mean Platelet Volume 9.2 9.4-12.3 fL Neutrophils Percent Auto 66.2 45-73 % Imm Gran Pct Auto 0.3 0.0-0.4 % Lymphocytes Percent Auto 20.0 20-40 % Monocytes Percent Auto 9.8 2-11 % Eosinophils Percent Auto 3.4 0-4 % Basophils Percent Auto 0.3 0-2 % NRBC Pct Auto 0.0 0.0-0.2 /100WBC Neutrophils Absolute Auto 3.9 2.0-8.3 x10*3/u L Imm Gran Abs Auto 0.02 0.00-0.03 X10*3/uL Lymphocytes Absolute Auto 1.2 1.2-4.9 X10*3/u L Monocytes Absolute Auto 0.6 0.1-1.2 X10*3/uL Eosinophils Absolute Auto 0.2 0.0-0.4 X10*3/u L Basophils Absolute Auto 0.0 0.0-0.2 X10*3/uL NRBC Abs Auto 0.000 0.0-0.012 X10*3/uL Comprehensive Met. Panel Reviewed date:12/10/2023 02:14:28 PM Interpretation:Abnormal Performing Lab:[facility], [address] [place] [phone] Notes/Report: Sodium 145 135-145 mmol/L Potassium 3.8 3.3-5.1 mmol/L Chloride 106 96-108 mmol/L Carbon Dioxide 29 22-29 mmol/L Anion Gap 14 12-20 Blood Urea Nitrogen 29 9-16 mg/dL Creatinine 1.74 0.5-1.4 mg/dL Creatinine Clr Calc Pharmacy 22.5 Provided height and weight: 154.94 cm, 60.2 kg. eGFR (calculated from the MDRD study equation) and eCrCl (calculated from the Cockcroft-Gault equation) are based on different parameters and may not yield comparable results. If eCrCl result is absurd, please check patient's height/weight. Estimated Glomerular Filt Rate 28 NOTE: For -[place] individuals, multiply the result by 1.210. Chronic Kidney Disease: Estimated GFR < 60 mL/min/1.73m2 Severe Kidney Disease: Estimated GFR < 15 mL/min/1.73m2 Glucose Random 199 60-115 mg/dL Calcium 9.6 8.4-10.2 mg/dL Bilirubin Total 0.9 0.0-1.0 mg/dL Aspartate Amino Transferase 41 5-31 U/L Alanine Aminotransferase 66 0-31 U/L Total Protein 6.9 6.5-8.0 g/dL Albumin Level 4.0 3.5-5.0 g/dL Alkaline Phosphatase 57 39-117 U/L Type and Screen Reviewed date:12/10/2023 02:27:13 PM Interpretation:Negative Performing Lab:[facility] [facility], [address] [place] [phone] Notes/Report: WITNESSED BY ASHER Results at Issue Units as of 12/12/23 1144 ... Test View Group: Most Recent HGB HCT Results No results available. Hgb 7-9 gm No Blood Type BP Antibody Screen NEGATIVE Red Blood Cells Reviewed date:12/12/2023 04:33:13 PM Interpretation:Transfused Performing Lab:[facility], [address] [place] [phone] Notes/Report: Red Blood Cells [id number] BP RC Red Blood Cells TRANSFUSED 12/12/23 1144 Complete Blood Count Auto Di ff Reviewed date:12/13/2023 11:58:29 AM Interpretation:Abnormal Performing Lab:[facility], [address] [place] [address] Notes/Report: White Blood Count 9.1 4.8-10.8 X10*3/uL Red Blood Count 2.79 4.20-5.50 X10*6/uL Hemoglobin 9.9 12.0-16.0 g/dl Hematocrit 28.6 37.0-47.0 % Mean Corpuscular Volume 102.5 80.0-98.0 fL Mean Corpuscular Hemoglobin 35.5 27.0-33.0 pg Mean Corpuscular HGB Conc 34.6 31.0-35.0 g/dl Red Cell Distribution Width 15.1 11.0-16.0 % Platelet Count 150 160-400 X10*3/uL Mean Platelet Volume 8.8 9.4-12.3 fL Neutrophils Percent Auto 77.5 45-73 % Imm Gran Pct Auto 0.3 0.0-0.4 % Lymphocytes Percent Auto 8.6 20-40 % Monocytes Percent Auto 11.8 2-11 % Eosinophils Percent Auto 1.5 0-4 % Basophils Percent Auto 0.3 0-2 % NRBC Pct Auto 0.0 0.0-0.2 /100WBC Neutrophils Absolute Auto 7.0 2.0-8.3 x10*3/u L Imm Gran Abs Auto 0.03 0.00-0.03 X10*3/uL Lymphocytes Absolute Auto 0.8 1.2-4.9 X10*3/u L Monocytes Absolute Auto 1.1 0.1-1.2 X10*3/uL Eosinophils Absolute Auto 0.1 0.0-0.4 X10*3/u L Basophils Absolute Auto 0.0 0.0-0.2 X10*3/uL NRBC Abs Auto 0.000 0.0-0.012 X10*3/uL Prothrombin Time INR Reviewed date:12/13/2023 04:15:42 PM Interpretation:Normal Performing Lab:[facility], [address] [place] [phone] Notes/Report: Prothrombin Time 12.8 11.1-13.3 SEC INTERNATIONAL NORM RATIO 1.1 0.9-1.1 INTERNATIONAL NORMALIZED RATIO (INR) REFERENCE RANGES Reference Range For patients not on anticoagulant therapy: 0.9 - 1.1 INR ranges for oral anticoagulant therapy: For prevention and treatment of venous thrombosis and pulmonary embolism: 2.0 - 3.0 For acute myocardial infarction with aspirin therapy: 2.0 - 3.0 For acute myocardial infarction without aspirin therapy: 3.0 - 4.0 For patients with mechanical prosthetic heart valves: 2.5 - 3.5 Partial Thromboplastin Time Reviewed date:12/13/2023 04:15:42 PM Interpretation:Normal Performing Lab:[facility], [address] [place] [phone] Notes/Report: Partial Thromboplastin Time 30.0 26.0-36.8 SEC For information regarding the monitoring of direct thrombin inhibitors, please refer to Pharmacy. Comprehensive Met. Panel Reviewed date:12/13/2023 12:00:00 PM Interpretation:Abnormal Performing Lab:[address] [address] Notes/Report: Sodium 145 135-145 mmol/L Potassium 3.8 3.3-5.1 mmol/L Chloride 106 96-108 mmol/L Carbon Dioxide 28 22-29 mmol/L Anion Gap 15 12-20 Blood Urea Nitrogen 21 9-16 mg/dL Creatinine 1.58 0.5-1.4 mg/dL Creatinine Clr Calc Pharmacy 24.3 Provided height and weight: 154.94 cm, 57.606 kg. eGFR (calculated from the MDRD study equation) and eCrCl (calculated from the Cockcroft-Gault equation) are based on different parameters and may not yield comparable results. If eCrCl result is absurd, please check patient's height/weight. Estimated Glomerular Filt Rate 32 NOTE: For -Trinidadian individuals, multiply the result by 1.210. Chronic Kidney Disease: Estimated GFR < 60 mL/min/1.73m2 Severe Kidney Disease: Estimated GFR < 15 mL/min/1.73m2 Glucose Random 134 60-115 mg/dL Calcium 9.6 8.4-10.2 mg/dL Bilirubin Total 1.8 0.0-1.0 mg/dL Aspartate Amino Transferase 18 5-31 U/L Alanine Aminotransferase 40 0-31 U/L Total Protein 7.5 6.5-8.0 g/dL Albumin Level 4.2 3.5-5.0 g/dL Alkaline Phosphatase 66 39-117 U/L Lactic Acid Reviewed date:12/13/2023 04:15:42 PM Interpretation:Normal Performing Lab:[facility], [address] [place] [phone] Notes/Report: Lactic Acid 1.6 0.5-2.0 mmol/L Troponin-I High Sensitivity Reviewed date:12/13/2023 04:15:42 PM Interpretation:Abnormal Performing Lab:[facility], [address] [place] [address] Notes/Report: Troponin-I High Sensitivity 32.7 <3.5-17.0 ng/L The Live high sensitivity Troponin-I results should be used in conjunction with other diagnostic information such as ECG, clinical observations and information, and patient symptoms to aid in the diagnosis of [place]. B Type Natriuretic Peptide Reviewed date:12/14/2023 01:25:35 PM Interpretation:Abnormal Performing Lab:[facility], [address] [place] [phone] Notes/Report: B Type Natriuretic Peptide 3549 <100 pg/mL For those patients who are being treated with Natrecor (nesiritide, recombinant BNP), BNP testing should be performed at least two hours post treatment in order to ensure that only endogenous levels of BNP are detected. Glucose, Whole Blood Reviewed date:12/14/2023 01:25:35 PM Interpretation:Abnormal Performing Lab:[facility], [address] [place] [phone] Notes/Report: Glucose, Whole Blood 220 60-115 mg/dL METER # : [id number] Blood Culture (First) Reviewed date:12/18/2023 03:26:49 PM Interpretation:Negative Performing Lab:[address] [address] Notes/Report: Blood Culture (First) No growth after 5 days. Blood Culture (Second) Reviewed date:12/18/2023 04:31:37 PM Interpretation:Negative Performing Lab:[address] [address] Notes/Report: Blood Culture (Second) No growth after 5 days. SARS-CoV2/FLU/RSV Reviewed date:12/13/2023 12:24:52 PM Interpretation:Negative Performing Lab:[address] [address] Notes/Report: Influenza A PCR NEGATIVE Negative Influenza B PCR NEGATIVE Negative Resp Syncy Virus RNA Qual PCR NEGATIVE Negative SARS COV2 PCR INHOUSE NEGATIVE Negative All test results must be correlated with clinical findings. Negative results do not preclude SARS-CoV2, influenza A virus, influenza B virus and/or RSV infection and should not be used as the sole basis for treatment or other patient management decisions. Negative results must be combined with clinical observations, patient history, and epidemiological information. This test has not been evaluated for monitoring treatment of infection. This test has been authorized by the FDA under an Emergency Use Authorization (EUA) for use by authorized laboratories. Testing performed on the [employer] GeneXpert utilizing real-time RT-PCR. All SARS CoV2 and positive influenza A/B results are reported to [facility]. Venous Blood Gases - POC Reviewed date:12/13/2023 04:15:42 PM Interpretation:Abnormal Performing Lab:[address] [address] Notes/Report: VBG pH 7.48 7.32-7.43 METER #: [id number] additional_comment: Cb touchel VBG pCO2 35 METER #: [id number] additional_comment: Cb touchel VBG pO2 94 METER #: [id number] additional_comment: Cb touchel VBG Base Excess 3.2 METER #: [id number] additional_comment: Cb touchel VBG HCO3 26 22-26 mmol/L METER #: [id number] additional_comment: Cb touchel VBG O2 % Saturation 99.0 METER #: [id number] additional_comment: Cb touchel CT angio chest PE protocol Reviewed date:12/14/2023 01:50:22 PM Interpretation:Abnormal Performing Lab: Notes/Report: [address] [address] [address] Scan Report Signed Patient: Tonia Hernandez MR#: [id number] 227 : 1945 Acct:[id number] Age/Sex: 78 / F ADM Date: 12/13/23 Loc: HO.ED Attending Dr: Ordering Physician: Beth Hackett MD Date of Service: 12/13/23 Procedure(s): CT angio chest PE protocol Accession Number(s): [id number] cc: John Avina DO; Beth Hackett MD EXAMINATION: CT ANGIOGRAM OF THE CHEST WITH AND WITHOUT CONTRAST (CT PULMONARY ANGIOGRAM FOR PE) CLINICAL INFORMATION: SOB, hx breast CA, PEs COMPARISON: None available. TECHNIQUE: Prior to contrast administration, noncontrast localization images were obtained. Subsequently, multidetector volumetric imaging was performed from the thoracic inlet to below the diaphragms following the administration of 65 mL Omnipaque 350 intravenous contrast. No contrast reaction reported Sagittal, coronal, and MIP oblique sagittal reformatted images were obtained on the CT workstation, uploaded to PACS, and reviewed. This CT examination was performed using dose optimization techniques as appropriate, variously including the following: *Automated exposure control *Adjustment of mA and/or kV according to patient size (this includes techniques or standardized protocols for targeted exams where dose is matched to indication/reason for exam; i.e. extremities or head) *Use of iterative reconstruction technique Total exam dose-length product 238 mGy-cm FINDINGS: QUALITY OF STUDY/CONTRAST BOLUS: Satisfactory. PULMONARY ARTERIES: No pulmonary emboli. THORACIC AORTA: No aneurysm. Scattered atherosclerotic wall calcifications are present. LUNG: No focal consolidation, nodules or masses. PLEURA: Trace bilateral pleural effusions MEDIASTINUM: Heart is mildly enlarged with dilation of the left atrium and left ventricle. No pericardial effusion. No hilar or mediastinal lymphadenopathy. No evidence of septal bowing or right heart strain. CORONARY ARTERY CALCIFICATION: Moderate CHEST WALL/AXILLA: No axillary or internal mammary lymphadenopathy. OSSEOUS STRUCTURES: No acute or suspicious osseous abnormality. UPPER ABDOMEN: Unremarkable. No reflux of contrast into the hepatic veins to suggest elevated right heart pressures. CT/CT angio chest PE protocol IMPRESSION: 1. No evidence of pulmonary embolism. 2. Trace bilateral pleural effusions. 3. Mild cardiomegaly with dilation of the left atrium and left ventricle. VTE: negative. Electronically signed by: Luis Foster MD 12/13/2023 04:05 PM EDT RP Dictated By: Luis Foster MD Signed By: <Electronically signed by Luis Foster MD in [place]> 12/13/23 1605 DD/ 1245 TD/TT: 12/13/23 1410 Aeronautical Engineering Technologist: XR chest 2V Reviewed date:12/13/2023 12:26:06 PM Interpretation:Abnormal Performing Lab: Notes/Report: [place] [address] XRay Report Signed Patient: Tonia Hernandez MR#: [id number] 227 : 1945 Acct:[id number] Age/Sex: 78 / F ADM Date: 12/13/23 Loc: .ED Attending Dr: Ordering Physician: Generic ED Physician Date of Service: 12/13/23 Procedure(s): XR chest 2V Accession Number(s): [id number] cc: John Avina DO; Generic ED Physician EXAMINATION: XR CHEST CLINICAL INFORMATION: Shortness of breath COMPARISON: None available. TECHNIQUE: PA and lateral views of the chest were obtained. FINDINGS: No significant abnormality is noted involving the heart, lungs, mediastinum, bony thorax or soft tissues. FINDINGS: HEART VASCULARITY: There are mild cardiomegaly and normal pulmonary vascularity. LUNGS: Horizontal linear atelectasis is seen in the right lower lobe just beneath the right minor fissure. Patchy and hazy infiltrates are seen in bilateral lower lobes with peribronchial distribution, most prominent in bilateral posterior basal segments. No pneumothorax is seen. BONES: Bony skeleton is intact. XR/XR chest 2V IMPRESSION: 1. Interval development of Bilateral lower lobe infiltrates, compatible with pneumonia. 2. Unchanged Mild cardiomegaly without radiographic signs of congestive heart failure. Electronically signed by: Ilene Buchanan MD 12/13/2023 12:09 PM EDT Dictated By: Ilene Buchanan Signed By: <Electronically signed by Ilene Buchanan in [place]> 12/13/23 1209 DD/ 1000 TD/TT: 12/13/23 1010 Aeronautical Engineering Technologist: Troponin-I High Sensitivity Reviewed date:12/14/2023 01:25:35 PM Interpretation:Abnormal Performing Lab:[facility], [address] [place] [phone] Notes/Report: Troponin-I High Sensitivity 39.0 <3.5-17.0 ng/L The Live high sensitivity Troponin-I results should be used in conjunction with other diagnostic information such as ECG, clinical observations and information, and patient symptoms to aid in the diagnosis of [place]. Complete Blood Count Auto Di ff Reviewed date:12/14/2023 01:25:35 PM Interpretation:Abnormal Performing Lab:[facility], [address] [place] [phone] Notes/Report: White Blood Count 8.5 4.8-10.8 X10*3/uL Red Blood Count 2.29 4.20-5.50 X10*6/uL Hemoglobin 7.9 12.0-16.0 g/dl Hematocrit 23.9 37.0-47.0 % Mean Corpuscular Volume 104.4 80.0-98.0 fL Mean Corpuscular Hemoglobin 34.5 27.0-33.0 pg Mean Corpuscular HGB Conc 33.1 31.0-35.0 g/dl Red Cell Distribution Width 15.0 11.0-16.0 % Platelet Count 132 160-400 X10*3/uL Mean Platelet Volume 9.8 9.4-12.3 fL Neutrophils Percent Auto 77.4 45-73 % Imm Gran Pct Auto 0.5 0.0-0.4 % Lymphocytes Percent Auto 9.7 20-40 % Monocytes Percent Auto 11.2 2-11 % Eosinophils Percent Auto 0.8 0-4 % Basophils Percent Auto 0.4 0-2 % NRBC Pct Auto 0.0 0.0-0.2 /100WBC Neutrophils Absolute Auto 6.6 2.0-8.3 x10*3/u L Imm Gran Abs Auto 0.04 0.00-0.03 X10*3/uL Lymphocytes Absolute Auto 0.8 1.2-4.9 X10*3/u L Monocytes Absolute Auto 1.0 0.1-1.2 X10*3/uL Eosinophils Absolute Auto 0.1 0.0-0.4 X10*3/u L Basophils Absolute Auto 0.0 0.0-0.2 X10*3/uL NRBC Abs Auto 0.000 0.0-0.012 X10*3/uL Basic Metabolic Panel Reviewed date:12/14/2023 01:25:35 PM Interpretation:Abnormal Performing Lab:[address] [address] Notes/Report: Sodium 144 135-145 mmol/L Potassium 3.7 3.3-5.1 mmol/L Chloride 107 96-108 mmol/L Carbon Dioxide 26 22-29 mmol/L Anion Gap 15 12-20 Blood Urea Nitrogen 22 9-16 mg/dL Creatinine 1.50 0.5-1.4 mg/dL Creatinine Clr Calc Pharmacy 25.6 Provided height and weight: 154.94 cm, 57.606 kg. eGFR (calculated from the MDRD study equation) and eCrCl (calculated from the Cockcroft-Gault equation) are based on different parameters and may not yield comparable results. If eCrCl result is absurd, please check patient's height/weight. Estimated Glomerular Filt Rate 34 NOTE: For -Trinidadian individuals, multiply the result by 1.210. Chronic Kidney Disease: Estimated GFR < 60 mL/min/1.73m2 Severe Kidney Disease: Estimated GFR < 15 mL/min/1.73m2 Glucose Random 136 60-115 mg/dL Calcium 8.9 8.4-10.2 mg/dL Glucose, Whole Blood Reviewed date:12/14/2023 01:25:35 PM Interpretation:Abnormal Performing Lab:[address] [address] Notes/Report: Glucose, Whole Blood 125 60-115 mg/dL METER # : [id number] Glucose, Whole Blood Reviewed date:12/14/2023 01:25:35 PM Interpretation:Abnormal Performing Lab:[facility], [address] [place] [phone] Notes/Report: Glucose, Whole Blood 131 60-115 mg/dL METER # : [id number] Glucose, Whole Blood Reviewed date:12/15/2023 03:07:30 PM Interpretation:Abnormal Performing Lab:[facility], [address] [place] [address] Notes/Report: Glucose, Whole Blood 222 60-115 mg/dL METER # : [id number] Glucose, Whole Blood Reviewed date:12/15/2023 03:07:30 PM Interpretation:Abnormal Performing Lab:[facility], [address] [place] [phone] Notes/Report: Glucose, Whole Blood 151 60-115 mg/dL METER # : [id number] Complete Blood Count no Diff Reviewed date:12/15/2023 03:07:47 PM Interpretation:Abnormal Performing Lab:[facility], [address] [place] [address] Notes/Report: White Blood Count 7.1 4.8-10.8 X10*3/uL Red Blood Count 2.21 4.20-5.50 X10*6/uL Hemoglobin 7.8 12.0-16.0 g/dl Hematocrit 23.2 37.0-47.0 % Mean Corpuscular Volume 105.0 80.0-98.0 fL Mean Corpuscular Hemoglobin 35.3 27.0-33.0 pg Mean Corpuscular HGB Conc 33.6 31.0-35.0 g/dl Red Cell Distribution Width 14.6 11.0-16.0 % Platelet Count 139 160-400 X10*3/uL Mean Platelet Volume 10.1 9.4-12.3 fL NRBC Pct Auto 0.0 0.0-0.2 /100WBC NRBC Abs Auto 0.000 0.0-0.012 X10*3/uL Basic Metabolic Panel Reviewed date:12/15/2023 03:07:30 PM Interpretation:Abnormal Performing Lab:[facility], [address] [place] [address] Notes/Report: Sodium 143 135-145 mmol/L Potassium 3.4 3.3-5.1 mmol/L Chloride 106 96-108 mmol/L Carbon Dioxide 24 22-29 mmol/L Anion Gap 16 12-20 Blood Urea Nitrogen 30 9-16 mg/dL Creatinine 1.85 0.5-1.4 mg/dL Creatinine Clr Calc Pharmacy 21.5 Provided height and weight: 154.94 cm, 62.4 kg. eGFR (calculated from the MDRD study equation) and eCrCl (calculated from the Cockcroft-Gault equation) are based on different parameters and may not yield comparable results. If eCrCl result is absurd, please check patient's height/weight. Estimated Glomerular Filt Rate 26 NOTE: For -Trinidadian individuals, multiply the result by 1.210. Chronic Kidney Disease: Estimated GFR < 60 mL/min/1.73m2 Severe Kidney Disease: Estimated GFR < 15 mL/min/1.73m2 Glucose Random 116 60-115 mg/dL Calcium 9.1 8.4-10.2 mg/dL Magnesium Reviewed date:12/15/2023 03:07:30 PM Interpretation:Normal Performing Lab:[address] [address] Notes/Report: Magnesium 2.1 1.6-2.6 mg/dL B Type Natriuretic Peptide Reviewed date:12/15/2023 03:08:01 PM Interpretation:Abnormal Performing Lab:[address] [address] Notes/Report: B Type Natriuretic Peptide 3311 <100 pg/mL For those patients who are being treated with Natrecor (nesiritide, recombinant BNP), BNP testing should be performed at least two hours post treatment in order to ensure that only endogenous levels of BNP are detected. Glucose, Whole Blood Reviewed date:12/15/2023 03:07:30 PM Interpretation:Normal Performing Lab:[address] [address] Notes/Report: Glucose, Whole Blood 109 60-115 mg/dL METER # : [id number] Type and Screen Reviewed date:12/15/2023 03:07:30 PM Interpretation:Negative Performing Lab:[address] [address] Notes/Report: To be recollected. Spec. scanning error. (tens) witnessed by MALU Blood Type BP Antibody Screen NEGATIVE Glucose, Whole Blood Reviewed date:12/15/2023 03:07:30 PM Interpretation:Abnormal Performing Lab:[facility], [address] [place] [address] Notes/Report: Glucose, Whole Blood 144 60-115 mg/dL METER # : [id number] Glucose, Whole Blood Reviewed date:12/15/2023 05:43:33 PM Interpretation:Abnormal Performing Lab:[facility], [address] [place] [address] Notes/Report: Glucose, Whole Blood 172 60-115 mg/dL METER # : [id number] Glucose, Whole Blood Reviewed date:12/15/2023 08:18:43 PM Interpretation:Abnormal Performing Lab:[facility], [address] [place] [address] Notes/Report: Glucose, Whole Blood 205 60-115 mg/dL METER # : [id number] Complete Blood Count no Diff Reviewed date:12/16/2023 01:57:55 PM Interpretation:Abnormal Performing Lab:[facility], [address] [place] [address] Notes/Report: White Blood Count 7.0 4.8-10.8 X10*3/uL Red Blood Count 2.28 4.20-5.50 X10*6/uL Hemoglobin 8.2 12.0-16.0 g/dl Hematocrit 24.0 37.0-47.0 % Mean Corpuscular Volume 105.3 80.0-98.0 fL Mean Corpuscular Hemoglobin 36.0 27.0-33.0 pg Mean Corpuscular HGB Conc 34.2 31.0-35.0 g/dl Red Cell Distribution Width 14.5 11.0-16.0 % Platelet Count 147 160-400 X10*3/uL Mean Platelet Volume 10.4 9.4-12.3 fL NRBC Pct Auto 0.0 0.0-0.2 /100WBC NRBC Abs Auto 0.000 0.0-0.012 X10*3/uL Basic Metabolic Panel Reviewed date:12/16/2023 01:57:55 PM Interpretation:Abnormal Performing Lab:[facility], [address] [place] [address] Notes/Report: Sodium 142 135-145 mmol/L Potassium 3.3 3.3-5.1 mmol/L Chloride 105 96-108 mmol/L Carbon Dioxide 25 22-29 mmol/L Anion Gap 15 12-20 Blood Urea Nitrogen 35 9-16 mg/dL Creatinine 1.93 0.5-1.4 mg/dL Creatinine Clr Calc Pharmacy 20.7 Provided height and weight: 154.94 cm, 62.4 kg. eGFR (calculated from the MDRD study equation) and eCrCl (calculated from the Cockcroft-Gault equation) are based on different parameters and may not yield comparable results. If eCrCl result is absurd, please check patient's height/weight. Estimated Glomerular Filt Rate 25 NOTE: For -Trinidadian individuals, multiply the result by 1.210. Chronic Kidney Disease: Estimated GFR < 60 mL/min/1.73m2 Severe Kidney Disease: Estimated GFR < 15 mL/min/1.73m2 Glucose Random 110 60-115 mg/dL Calcium 8.9 8.4-10.2 mg/dL Magnesium Reviewed date:12/16/2023 01:57:55 PM Interpretation:Normal Performing Lab:[facility], [address] [place] [phone] Notes/Report: Magnesium 2.3 1.6-2.6 mg/dL B Type Natriuretic Peptide Reviewed date:12/16/2023 01:57:55 PM Interpretation:Abnormal Performing Lab:[facility], [address] [place] [address] Notes/Report: B Type Natriuretic Peptide 3595 <100 pg/mL For those patients who are being treated with Natrecor (nesiritide, recombinant BNP), BNP testing should be performed at least two hours post treatment in order to ensure that only endogenous levels of BNP are detected. Glucose, Whole Blood Reviewed date:12/16/2023 01:57:55 PM Interpretation:Abnormal Performing Lab:[facility], [address] [place] [address] Notes/Report: Glucose, Whole Blood 116 60-115 mg/dL METER # : [id number] Glucose, Whole Blood Reviewed date:12/16/2023 01:57:55 PM Interpretation:Abnormal Performing Lab:[facility], [address] [place] [address] Notes/Report: Glucose, Whole Blood 210 60-115 mg/dL METER # : [id number] Glucose, Whole Blood Reviewed date:12/16/2023 04:51:03 PM Interpretation:Abnormal Performing Lab:[facility], [address] [place] [address] Notes/Report: Glucose, Whole Blood 242 60-115 mg/dL METER # : [id number] Glucose, Whole Blood Reviewed date:12/16/2023 10:52:45 PM Interpretation:Abnormal Performing Lab:[address] [address] Notes/Report: Glucose, Whole Blood 150 60-115 mg/dL METER # : [id number] Complete Blood Count no Diff Reviewed date:12/17/2023 10:02:19 AM Interpretation:Abnormal Performing Lab:[address] [address] Notes/Report: White Blood Count 9.1 4.8-10.8 X10*3/uL Red Blood Count 2.61 4.20-5.50 X10*6/uL Hemoglobin 9.3 12.0-16.0 g/dl Hematocrit 27.4 37.0-47.0 % Mean Corpuscular Volume 105.0 80.0-98.0 fL Mean Corpuscular Hemoglobin 35.6 27.0-33.0 pg Mean Corpuscular HGB Conc 33.9 31.0-35.0 g/dl Red Cell Distribution Width 14.6 11.0-16.0 % Platelet Count 195 160-400 X10*3/uL Mean Platelet Volume 9.8 9.4-12.3 fL NRBC Pct Auto 0.0 0.0-0.2 /100WBC NRBC Abs Auto 0.000 0.0-0.012 X10*3/uL Basic Metabolic Panel Reviewed date:12/17/2023 09:16:05 AM Interpretation:Abnormal Performing Lab:[facility], [address] [place] [address] Notes/Report: Sodium 142 135-145 mmol/L Potassium 3.6 3.3-5.1 mmol/L Chloride 105 96-108 mmol/L Carbon Dioxide 24 22-29 mmol/L Anion Gap 17 12-20 Blood Urea Nitrogen 41 9-16 mg/dL Creatinine 1.98 0.5-1.4 mg/dL Creatinine Clr Calc Pharmacy 20.1 Provided height and weight: 154.94 cm, 62.4 kg. eGFR (calculated from the MDRD study equation) and eCrCl (calculated from the Cockcroft-Gault equation) are based on different parameters and may not yield comparable results. If eCrCl result is absurd, please check patient's height/weight. Estimated Glomerular Filt Rate 24 NOTE: For -Trinidadian individuals, multiply the result by 1.210. Chronic Kidney Disease: Estimated GFR < 60 mL/min/1.73m2 Severe Kidney Disease: Estimated GFR < 15 mL/min/1.73m2 Glucose Random 130 60-115 mg/dL Calcium 9.0 8.4-10.2 mg/dL Glucose, Whole Blood Reviewed date:12/17/2023 09:15:22 AM Interpretation:Abnormal Performing Lab:[facility], [address] [place] [address] Notes/Report: Glucose, Whole Blood 146 60-115 mg/dL METER # : [id number] Glucose, Whole Blood Reviewed date:12/17/2023 11:28:41 AM Interpretation:Abnormal Performing Lab:[facility], [address] [place] [address] Notes/Report: Glucose, Whole Blood 144 60-115 mg/dL METER # : [id number] Glucose, Whole Blood Reviewed date:12/17/2023 04:25:49 PM Interpretation:Abnormal Performing Lab:[facility], [address] [place] [address] Notes/Report: Glucose, Whole Blood 202 60-115 mg/dL METER # : [id number] Glucose, Whole Blood Reviewed date:12/17/2023 10:28:13 PM Interpretation:Abnormal Performing Lab:[facility], [address] [place] [address] Notes/Report: Glucose, Whole Blood 179 60-115 mg/dL METER # : [id number] Complete Blood Count no Diff Reviewed date:12/18/2023 09:42:44 AM Interpretation:Abnormal Performing Lab:[address] [address] Notes/Report: White Blood Count 6.1 4.8-10.8 X10*3/uL Red Blood Count 2.21 4.20-5.50 X10*6/uL Hemoglobin 7.8 12.0-16.0 g/dl Hematocrit 22.7 37.0-47.0 % Mean Corpuscular Volume 102.7 80.0-98.0 fL Mean Corpuscular Hemoglobin 35.3 27.0-33.0 pg Mean Corpuscular HGB Conc 34.4 31.0-35.0 g/dl Red Cell Distribution Width 14.5 11.0-16.0 % Platelet Count 169 160-400 X10*3/uL Mean Platelet Volume 10.1 9.4-12.3 fL NRBC Pct Auto 0.0 0.0-0.2 /100WBC NRBC Abs Auto 0.000 0.0-0.012 X10*3/uL Basic Metabolic Panel Reviewed date:12/18/2023 09:42:44 AM Interpretation:Abnormal Performing Lab:[address] [address] Notes/Report: Sodium 145 135-145 mmol/L Potassium 3.2 3.3-5.1 mmol/L Chloride 106 96-108 mmol/L Carbon Dioxide 26 22-29 mmol/L Anion Gap 16 12-20 Blood Urea Nitrogen 45 9-16 mg/dL Creatinine 1.78 0.5-1.4 mg/dL Creatinine Clr Calc Pharmacy 22.4 Provided height and weight: 154.94 cm, 62.4 kg. eGFR (calculated from the MDRD study equation) and eCrCl (calculated from the Cockcroft-Gault equation) are based on different parameters and may not yield comparable results. If eCrCl result is absurd, please check patient's height/weight. Estimated Glomerular Filt Rate 28 NOTE: For -Trinidadian individuals, multiply the result by 1.210. Chronic Kidney Disease: Estimated GFR < 60 mL/min/1.73m2 Severe Kidney Disease: Estimated GFR < 15 mL/min/1.73m2 Glucose Random 102 60-115 mg/dL Calcium 8.8 8.4-10.2 mg/dL Magnesium Reviewed date:12/18/2023 09:42:44 AM Interpretation:Normal Performing Lab:[facility], [address] [place] [phone] Notes/Report: Magnesium 2.3 1.6-2.6 mg/dL Glucose, Whole Blood Reviewed date:12/18/2023 09:42:44 AM Interpretation:Normal Performing Lab:[facility], [address] [place] [phone] Notes/Report: Glucose, Whole Blood 110 60-115 mg/dL METER # : [id number] Type and Screen Reviewed date:12/18/2023 09:47:53 AM Interpretation:Negative Performing Lab:[facility], [address] [place] [phone] Notes/Report: Results at Issue Units as of 12/18/23 1250 ... Test View Group: Most Recent HGB HCT Results LABORATORY Date Time Test Result Flag Normal Range 12/18/23 0640 HGB 7.8 L 12.0-16.0 g/dl 12/18/23 0640 HCT 22.7 L 37.0-47.0 % Please give over 4 hours Hgb 7-9 gm Yes Blood Type BP Antibody Screen NEGATIVE Red Blood Cells Reviewed date:12/18/2023 01:30:07 PM Interpretation:Transfused Performing Lab:[facility], [address] [place] [phone] Notes/Report: Red Blood Cells [id number] RC Red Blood Cells TRANSFUSED 12/18/23 1249 Glucose, Whole Blood Reviewed date:12/18/2023 11:21:56 AM Interpretation:Abnormal Performing Lab:[address] [address] Notes/Report: Glucose, Whole Blood 270 60-115 mg/dL METER # : [id number] Glucose, Whole Blood Reviewed date:12/18/2023 04:31:16 PM Interpretation:Abnormal Performing Lab:[address] [address] Notes/Report: Glucose, Whole Blood 146 60-115 mg/dL METER # : [id number] Glucose, Whole Blood Reviewed date:12/19/2023 04:33:26 PM Interpretation:Abnormal Performing Lab:[address] [address] Notes/Report: Glucose, Whole Blood 184 60-115 mg/dL METER # : [id number] Complete Blood Count no Diff Reviewed date:12/19/2023 04:33:26 PM Interpretation:Abnormal Performing Lab:[address] [address] Notes/Report: White Blood Count 7.3 4.8-10.8 X10*3/uL Red Blood Count 3.03 4.20-5.50 X10*6/uL Hemoglobin 10.7 12.0-16.0 g/dl Hematocrit 30.6 37.0-47.0 % Mean Corpuscular Volume 101.0 80.0-98.0 fL Mean Corpuscular Hemoglobin 35.3 27.0-33.0 pg Mean Corpuscular HGB Conc 35.0 31.0-35.0 g/dl Red Cell Distribution Width 14.4 11.0-16.0 % Platelet Count 177 160-400 X10*3/uL Mean Platelet Volume 9.4 9.4-12.3 fL NRBC Pct Auto 0.0 0.0-0.2 /100WBC NRBC Abs Auto 0.000 0.0-0.012 X10*3/uL Basic Metabolic Panel Reviewed date:12/19/2023 04:33:26 PM Interpretation:Abnormal Performing Lab:[facility] [address] [address] Notes/Report: Sodium 144 135-145 mmol/L Potassium 3.2 3.3-5.1 mmol/L Chloride 101 96-108 mmol/L Carbon Dioxide 27 22-29 mmol/L Anion Gap 19 12-20 Blood Urea Nitrogen 50 9-16 mg/dL Creatinine 2.00 0.5-1.4 mg/dL Creatinine Clr Calc Pharmacy 19.9 Provided height and weight: 154.94 cm, 62.4 kg. eGFR (calculated from the MDRD study equation) and eCrCl (calculated from the Cockcroft-Gault equation) are based on different parameters and may not yield comparable results. If eCrCl result is absurd, please check patient's height/weight. Estimated Glomerular Filt Rate 24 NOTE: For -Trinidadian individuals, multiply the result by 1.210. Chronic Kidney Disease: Estimated GFR < 60 mL/min/1.73m2 Severe Kidney Disease: Estimated GFR < 15 mL/min/1.73m2 Glucose Random 152 60-115 mg/dL Calcium 9.8 8.4-10.2 mg/dL Magnesium Reviewed date:12/19/2023 04:33:26 PM Interpretation:Normal Performing Lab:[address] [address] Notes/Report: Magnesium 2.2 1.6-2.6 mg/dL Vitamin B12 and Folate Reviewed date:12/19/2023 04:33:26 PM Interpretation:Normal Performing Lab:[address] [address] Notes/Report: Vitamin B12 > 2000 200-900 pg/mL NORMAL 200-900 PG/ML INDETERMINATE 160-199 PG/ML DEFICIENT < 160 PG/ML Folate 17.5 > or = 4.0 ng/mL Reference Values: > or = 4.0 ng/mL < 4.0 ng/mL suggests folate deficiency Methotrexate, aminopterin and folinic acid (leucovorin) are chemotherapeutic agents whose molecular structures are similar to folate; therefore, the [facility] folate assay cannot be used for patients using these drugs. Glucose, Whole Blood Reviewed date:12/19/2023 04:33:26 PM Interpretation:Abnormal Performing Lab:[address] [address] Notes/Report: Glucose, Whole Blood 138 60-115 mg/dL METER # : [id number] Glucose, Whole Blood Reviewed date:12/19/2023 04:33:26 PM Interpretation:Abnormal Performing Lab:[facility], [address] [place] [phone] Notes/Report: Glucose, Whole Blood 165 60-115 mg/dL METER # : [id number] Glucose, Whole Blood Reviewed date:12/19/2023 04:33:26 PM Interpretation:Abnormal Performing Lab:[facility], [address] [place] [phone] Notes/Report: Glucose, Whole Blood 260 60-115 mg/dL METER # : [id number] Glucose, Whole Blood Reviewed date:12/19/2023 09:52:44 PM Interpretation:Abnormal Performing Lab:[facility], [address] [place] [phone] Notes/Report: Glucose, Whole Blood 151 60-115 mg/dL METER # : [id number] Basic Metabolic Panel Reviewed date:12/20/2023 09:04:56 AM Interpretation:Abnormal Performing Lab:[facility], [address] [place] [phone] Notes/Report: Sodium 141 135-145 mmol/L Potassium 3.5 3.3-5.1 mmol/L Chloride 98 96-108 mmol/L Carbon Dioxide 27 22-29 mmol/L Anion Gap 20 12-20 Blood Urea Nitrogen 60 9-16 mg/dL Creatinine 2.27 0.5-1.4 mg/dL Creatinine Clr Calc Pharmacy 17.5 Provided height and weight: 154.94 cm, 62.4 kg. eGFR (calculated from the MDRD study equation) and eCrCl (calculated from the Cockcroft-Gault equation) are based on different parameters and may not yield comparable results. If eCrCl result is absurd, please check patient's height/weight. Estimated Glomerular Filt Rate 21 NOTE: For -Trinid[place] individuals, multiply the result by 1.210. Chronic Kidney Disease: Estimated GFR < 60 mL/min/1.73m2 Severe Kidney Disease: Estimated GFR < 15 mL/min/1.73m2 Glucose Random 161 60-115 mg/dL Calcium 10.4 8.4-10.2 mg/dL Magnesium Reviewed date:12/20/2023 09:04:56 AM Interpretation:Normal Performing Lab:[facility], [address] [place] [address] Notes/Report: Magnesium 2.6 1.6-2.6 mg/dL B Type Natriuretic Peptide Reviewed date:12/20/2023 09:04:56 AM Interpretation:Abnormal Performing Lab:[facility], [address] [place] [phone] Notes/Report: B Type Natriuretic Peptide 1290 <100 pg/mL For those patients who are being treated with Natrecor (nesiritide, recombinant BNP), BNP testing should be performed at least two hours post treatment in order to ensure that only endogenous levels of BNP are detected. Glucose, Whole Blood Reviewed date:12/20/2023 09:04:56 AM Interpretation:Abnormal Performing Lab:[facility], [address] [place] [phone] Notes/Report: Glucose, Whole Blood 159 60-115 mg/dL METER # : [id number] Glucose, Whole Blood Reviewed date:12/20/2023 10:58:56 AM Interpretation:Abnormal Performing Lab:[facility], [address] [place] [phone] Notes/Report: Glucose, Whole Blood 298 60-115 mg/dL METER # : [id number] Glucose, Whole Blood Reviewed date:12/20/2023 04:34:24 PM Interpretation:Abnormal Performing Lab:[facility], [address] [place] [phone] Notes/Report: Glucose, Whole Blood 304 60-115 mg/dL METER # : [id number] Glucose, Whole Blood Reviewed date:12/21/2023 10:03:58 AM Interpretation:Abnormal Performing Lab:[facility], [address] [place] [phone] Notes/Report: Glucose, Whole Blood 130 60-115 mg/dL METER # : [id number] Hold Lav - Possible Hematolo gy Reviewed date:12/21/2023 10:04:37 AM Interpretation:Hold Performing Lab:[facility], [address] [place] [phone] Notes/Report: Hold Lav - Possible Hematology SEE NOTE Specimen will be held untested for 8 hours. Call Hematology if testing is desired. Basic Metabolic Panel Reviewed date:12/21/2023 10:03:58 AM Interpretation:Abnormal Performing Lab:[facility], [address] [place] [phone] Notes/Report: Sodium 139 135-145 mmol/L Potassium 3.9 3.3-5.1 mmol/L Chloride 99 96-108 mmol/L Carbon Dioxide 25 22-29 mmol/L Anion Gap 19 12-20 Blood Urea Nitrogen 70 9-16 mg/dL Creatinine 2.48 0.5-1.4 mg/dL Creatinine Clr Calc Pharmacy 16.1 Provided height and weight: 154.94 cm, 62.4 kg. eGFR (calculated from the MDRD study equation) and eCrCl (calculated from the Cockcroft-Gault equation) are based on different parameters and may not yield comparable results. If eCrCl result is absurd, please check patient's height/weight. Estimated Glomerular Filt Rate 19 NOTE: For -Trinidadian individuals, multiply the result by 1.210. Chronic Kidney Disease: Estimated GFR < 60 mL/min/1.73m2 Severe Kidney Disease: Estimated GFR < 15 mL/min/1.73m2 Glucose Random 192 60-115 mg/dL Calcium 9.9 8.4-10.2 mg/dL Glucose, Whole Blood Reviewed date:12/21/2023 10:03:58 AM Interpretation:Abnormal Performing Lab:[facility], [address] [place] [phone] Notes/Report: Glucose, Whole Blood 170 60-115 mg/dL METER # : [id number] Arterial Blood Gases - POC Reviewed date:12/21/2023 10:03:58 AM Interpretation:Abnormal Performing Lab:[facility], [address] [place] [phone] Notes/Report: ABG pH 7.48 7.35-7.45 METER #: [id number] additional_comment: Payam wan ctrbb byunj ABG pCO2 38 32-45 mmHg METER #: [id number] additional_comment: Payam womatildetaashley ctrbb byunj ABG pO2 58 83-108 mmHg METER #: [id number] additional_comment: Payam whitaker ABG Base Excess 5.2 METER #: [id number] additional_comment: Payam whitaker ABG HCO3 28 22-26 mmol/L METER #: [id number] additional_comment: Payam whitaker ABG O2 % Saturation 87.0 METER #: [id number] additional_comment: Payam whitaker Glucose, Whole Blood Reviewed date:12/22/2023 09:28:28 AM Interpretation:Abnormal Performing Lab:[facility], [address] [place] [phone] Notes/Report: Glucose, Whole Blood 233 60-115 mg/dL METER # : [id number] Comprehensive Met. Panel Reviewed date:12/24/2023 05:12:42 PM Interpretation:Abnormal Performing Lab:[facility], [address] [place] [phone] Notes/Report: Sodium 138 135-145 mmol/L Potassium 4.3 3.3-5.1 mmol/L Slight Hemoly sis Chloride 98 96-108 mmol/L Carbon Dioxide 25 22-29 mmol/L Anion Gap 19 12-20 Blood Urea Nitrogen 76 9-16 mg/dL Creatinine 3.03 0.5-1.4 mg/dL Estimated Glomerular Filt Rate 15 NOTE: For -Trinidadian individuals, multiply the result by 1.210. Chronic Kidney Disease: Estimated GFR < 60 mL/min/1.73m2 Severe Kidney Disease: Estimated GFR < 15 mL/min/1.73m2 Glucose Random 228 60-115 mg/dL Calcium 10.2 8.4-10.2 mg/dL Bilirubin Total 0.7 0.0-1.0 mg/dL Aspartate Amino Transferase 42 5-31 U/L Slight Hemolysis Alanine Aminotransferase 77 0-31 U/L Total Protein 7.9 6.5-8.0 g/dL Albumin Level 4.1 3.5-5.0 g/dL Alkaline Phosphatase 81 39-117 U/L B Type Natriuretic Peptide Reviewed date:12/24/2023 04:54:23 PM Interpretation:Abnormal Performing Lab:[facility], [address] [place] [phone] Notes/Report: B Type Natriuretic Peptide 325 <100 pg/mL For those patients who are being treated with Natrecor (nesiritide, recombinant BNP), BNP testing should be performed at least two hours post treatment in order to ensure that only endogenous levels of BNP are detected. Lipid Panel Reviewed date:12/24/2023 05:12:42 PM Interpretation:Abnormal Performing Lab:[address] [phone] Notes/Report: Triglycerides 154 <150 mg/dL Desirable Triglyceride: less than 150 mg/dL Borderline High Triglyceride 150-199 mg/dL High Triglyceride: 200-499 mg/dL Very High Triglyceride: greater than or equal to 5OO mg/dL Cholesterol 86 <200 mg/dL Desirable Cholesterol: less than 200 mg/dL Borderline High Cholesterol: 200-239 mg/dL High Cholesterol: greater than 239 mg/dL LDL Cholesterol Calculated 29 <100 mg/dL Desirable LDL: less than 100 mg/dL Near Optimal/Above Optimal LDL: 110-129 mg/dL Borderline High LDL: 130-159 mg/dL High LDL: 160-189 mg/dL Very High LDL: greater than or equal to 190 mg/dL HDL Cholesterol 27 >40 mg/dL Desirable HDL: greater than 40 mg/dL Note: This HDL assay may give artificially low results in patients with liver disease. Basic Metabolic Panel Reviewed date:12/30/2023 02:36:23 PM Interpretation:Abnormal Performing Lab:[address] [address] Notes/Report: Sodium 142 135-145 mmol/L Potassium 4.5 3.3-5.1 mmol/L Chloride 101 96-108 mmol/L Carbon Dioxide 28 22-29 mmol/L Anion Gap 18 12-20 Blood Urea Nitrogen 54 9-16 mg/dL Creatinine 2.44 0.5-1.4 mg/dL Estimated Glomerular Filt Rate 19 NOTE: For -Trinid[place] individuals, multiply the result by 1.210. Chronic Kidney Disease: Estimated GFR < 60 mL/min/1.73m2 Severe Kidney Disease: Estimated GFR < 15 mL/min/1.73m2 Glucose Random 151 60-115 mg/dL Calcium 10.6 8.4-10.2 mg/dL B Type Natriuretic Peptide Reviewed date:12/30/2023 02:24:35 PM Interpretation:Abnormal Performing Lab:[facility], [address] [place] [phone] Notes/Report: B Type Natriuretic Peptide 538 <100 pg/mL For those patients who are being treated with Natrecor (nesiritide, recombinant BNP), BNP testing should be performed at least two hours post treatment in order to ensure that only endogenous levels of BNP are detected. Complete Blood Count Auto Di ff Reviewed date:12/31/2023 02:25:25 PM Interpretation:Abnormal Performing Lab:[facility], [address] [place] [phone] Notes/Report: White Blood Count 7.9 4.8-10.8 X10*3/uL Red Blood Count 3.10 4.20-5.50 X10*6/uL Hemoglobin 11.2 12.0-16.0 g/dl Hematocrit 33.3 37.0-47.0 % Mean Corpuscular Volume 107.4 80.0-98.0 fL Mean Corpuscular Hemoglobin 36.1 27.0-33.0 pg Mean Corpuscular HGB Conc 33.6 31.0-35.0 g/dl Red Cell Distribution Width 14.6 11.0-16.0 % Platelet Count 211 160-400 X10*3/uL Mean Platelet Volume 9.4 9.4-12.3 fL Neutrophils Percent Auto 74.8 45-73 % Imm Gran Pct Auto 0.9 0.0-0.4 % Lymphocytes Percent Auto 12.9 20-40 % Monocytes Percent Auto 8.1 2-11 % Eosinophils Percent Auto 2.8 0-4 % Basophils Percent Auto 0.5 0-2 % NRBC Pct Auto 0.0 0.0-0.2 /100WBC Neutrophils Absolute Auto 5.9 2.0-8.3 x10*3/u L Imm Gran Abs Auto 0.07 0.00-0.03 X10*3/uL Lymphocytes Absolute Auto 1.0 1.2-4.9 X10*3/u L Monocytes Absolute Auto 0.6 0.1-1.2 X10*3/uL Eosinophils Absolute Auto 0.2 0.0-0.4 X10*3/u L Basophils Absolute Auto 0.0 0.0-0.2 X10*3/uL NRBC Abs Auto 0.000 0.0-0.012 X10*3/uL Type and Screen Reviewed date:12/31/2023 02:56:59 PM Interpretation:Negative Performing Lab:[facility], [address] [place] [address] Notes/Report: Witnessed by MIRIR Blood Type BP Antibody Screen NEGATIVE Complete Blood Count Auto Di ff Reviewed date:01/21/2024 01:59:16 PM Interpretation:Abnormal Performing Lab:[facility], [address] [place] [address] Notes/Report: White Blood Count 6.1 4.8-10.8 X10*3/uL Red Blood Count 2.59 4.20-5.50 X10*6/uL Hemoglobin 9.3 12.0-16.0 g/dl Hematocrit 27.5 37.0-47.0 % Mean Corpuscular Volume 106.2 80.0-98.0 fL Mean Corpuscular Hemoglobin 35.9 27.0-33.0 pg Mean Corpuscular HGB Conc 33.8 31.0-35.0 g/dl Red Cell Distribution Width 13.9 11.0-16.0 % Platelet Count 169 160-400 X10*3/uL Mean Platelet Volume 9.3 9.4-12.3 fL Neutrophils Percent Auto 73.7 45-73 % Imm Gran Pct Auto 0.3 0.0-0.4 % Lymphocytes Percent Auto 13.6 20-40 % Monocytes Percent Auto 7.9 2-11 % Eosinophils Percent Auto 3.8 0-4 % Basophils Percent Auto 0.7 0-2 % NRBC Pct Auto 0.0 0.0-0.2 /100WBC Neutrophils Absolute Auto 4.5 2.0-8.3 x10*3/u L Imm Gran Abs Auto 0.02 0.00-0.03 X10*3/uL Lymphocytes Absolute Auto 0.8 1.2-4.9 X10*3/u L Monocytes Absolute Auto 0.5 0.1-1.2 X10*3/uL Eosinophils Absolute Auto 0.2 0.0-0.4 X10*3/u L Basophils Absolute Auto 0.0 0.0-0.2 X10*3/uL NRBC Abs Auto 0.000 0.0-0.012 X10*3/uL Complete Blood Count Auto Di ff Reviewed date:01/29/2024 02:11:27 PM Interpretation:Abnormal Performing Lab:[address] [address] Notes/Report: White Blood Count 5.4 4.8-10.8 X10*3/uL Red Blood Count 2.57 4.20-5.50 X10*6/uL Hemoglobin 8.9 12.0-16.0 g/dl Hematocrit 27.9 37.0-47.0 % Mean Corpuscular Volume 108.6 80.0-98.0 fL Mean Corpuscular Hemoglobin 34.6 27.0-33.0 pg Mean Corpuscular HGB Conc 31.9 31.0-35.0 g/dl Red Cell Distribution Width 13.9 11.0-16.0 % Platelet Count 198 160-400 X10*3/uL Mean Platelet Volume 9.9 9.4-12.3 fL Neutrophils Percent Auto 62.6 45-73 % Imm Gran Pct Auto 0.4 0.0-0.4 % Lymphocytes Percent Auto 22.8 20-40 % Monocytes Percent Auto 9.5 2-11 % Eosinophils Percent Auto 4.1 0-4 % Basophils Percent Auto 0.6 0-2 % NRBC Pct Auto 0.0 0.0-0.2 /100WBC Neutrophils Absolute Auto 3.4 2.0-8.3 x10*3/u L Imm Gran Abs Auto 0.02 0.00-0.03 X10*3/uL Lymphocytes Absolute Auto 1.2 1.2-4.9 X10*3/u L Monocytes Absolute Auto 0.5 0.1-1.2 X10*3/uL Eosinophils Absolute Auto 0.2 0.0-0.4 X10*3/u L Basophils Absolute Auto 0.0 0.0-0.2 X10*3/uL NRBC Abs Auto 0.000 0.0-0.012 X10*3/uL Basic Metabolic Panel Reviewed date:01/29/2024 03:05:32 PM Interpretation:Abnormal Performing Lab:[facility], [address] [place] [phone] Notes/Report: Sodium 145 135-145 mmol/L Potassium 3.7 3.3-5.1 mmol/L Chloride 110 96-108 mmol/L Carbon Dioxide 27 22-29 mmol/L Anion Gap 12 12-20 Blood Urea Nitrogen 27 9-16 mg/dL Creatinine 1.65 0.5-1.4 mg/dL Estimated Glomerular Filt Rate 30 NOTE: For -Trinidadian individuals, multiply the result by 1.210. Chronic Kidney Disease: Estimated GFR < 60 mL/min/1.73m2 Severe Kidney Disease: Estimated GFR < 15 mL/min/1.73m2 Glucose Random 114 60-115 mg/dL Calcium 9.2 8.4-10.2 mg/dL B Type Natriuretic Peptide Reviewed date:01/29/2024 03:01:00 PM Interpretation:Abnormal Performing Lab:[facility], [address] [place] [phone] Notes/Report: B Type Natriuretic Peptide 1518 <100 pg/mL For those patients who are being treated with Natrecor (nesiritide, recombinant BNP), BNP testing should be performed at least two hours post treatment in order to ensure that only endogenous levels of BNP are detected. Complete Blood Count Auto Di ff Reviewed date:02/11/2024 02:28:10 PM Interpretation:Abnormal Performing Lab:[facility], [address] [place] [address] Notes/Report: White Blood Count 6.5 4.8-10.8 X10*3/uL Red Blood Count 2.12 4.20-5.50 X10*6/uL Hemoglobin 7.5 12.0-16.0 g/dl Hematocrit 23.1 37.0-47.0 % Mean Corpuscular Volume 109.0 80.0-98.0 fL Mean Corpuscular Hemoglobin 35.4 27.0-33.0 pg Mean Corpuscular HGB Conc 32.5 31.0-35.0 g/dl Red Cell Distribution Width 13.7 11.0-16.0 % Platelet Count 166 160-400 X10*3/uL Mean Platelet Volume 9.1 9.4-12.3 fL Neutrophils Percent Auto 73.1 45-73 % Imm Gran Pct Auto 0.3 0.0-0.4 % Lymphocytes Percent Auto 15.3 20-40 % Monocytes Percent Auto 9.0 2-11 % Eosinophils Percent Auto 1.8 0-4 % Basophils Percent Auto 0.5 0-2 % NRBC Pct Auto 0.0 0.0-0.2 /100WBC Neutrophils Absolute Auto 4.8 2.0-8.3 x10*3/u L Imm Gran Abs Auto 0.02 0.00-0.03 X10*3/uL Lymphocytes Absolute Auto 1.0 1.2-4.9 X10*3/u L Monocytes Absolute Auto 0.6 0.1-1.2 X10*3/uL Eosinophils Absolute Auto 0.1 0.0-0.4 X10*3/u L Basophils Absolute Auto 0.0 0.0-0.2 X10*3/uL NRBC Abs Auto 0.000 0.0-0.012 X10*3/uL Comprehensive Met. Panel Reviewed date:02/11/2024 03:31:41 PM Interpretation:Abnormal Performing Lab:[facility], [address] [place] [phone] Notes/Report: Sodium 143 135-145 mmol/L Potassium 4.0 3.3-5.1 mmol/L Chloride 103 96-108 mmol/L Carbon Dioxide 32 22-29 mmol/L Anion Gap 12 12-20 Blood Urea Nitrogen 36 9-16 mg/dL Creatinine 1.88 0.5-1.4 mg/dL Creatinine Clr Calc Pharmacy 20.8 Provided height and weight: 154.94 cm, 60.4 kg. eGFR (calculated from the MDRD study equation) and eCrCl (calculated from the Cockcroft-Gault equation) are based on different parameters and may not yield comparable results. If eCrCl result is absurd, please check patient's height/weight. Estimated Glomerular Filt Rate 26 NOTE: For -Trinidadian individuals, multiply the result by 1.210. Chronic Kidney Disease: Estimated GFR < 60 mL/min/1.73m2 Severe Kidney Disease: Estimated GFR < 15 mL/min/1.73m2 Glucose Random 192 60-115 mg/dL Calcium 9.3 8.4-10.2 mg/dL Bilirubin Total 0.7 0.0-1.0 mg/dL Aspartate Amino Transferase 28 5-31 U/L Alanine Aminotransferase 78 0-31 U/L Total Protein 6.7 6.5-8.0 g/dL Albumin Level 3.9 3.5-5.0 g/dL Alkaline Phosphatase 77 39-117 U/L Type and Screen Reviewed date:02/11/2024 03:31:41 PM Interpretation:Positive Performing Lab:[facility], [address] [place] [phone] Notes/Report: WITNESSED BY MIRIR Results at Issue Units as of 02/13/24 1026 ... Test View Group: Most Recent HGB HCT Results No results available. Hgb 7-9 gm No Blood Type BP Antibody Screen POSITIVE Red Blood Cells Reviewed date:02/13/2024 12:28:30 PM Interpretation:Transfused Performing Lab:[facility], [address] [place] [phone] Notes/Report: Red Blood Cells [id number] BP RC Red Blood Cells TRANSFUSED 02/13/24 1025 Antibody Identification Reviewed date:02/11/2024 04:06:27 PM Interpretation:Negative Performing Lab:[facility], [address] [place] [phone] Notes/Report: Antibody Identification NEG Complete Blood Count Auto Di ff Reviewed date:03/04/2024 03:31:03 PM Interpretation:Abnormal Performing Lab:[facility], [address] [place] [id number] Notes/Report: White Blood Count 6.5 4.8-10.8 X10*3/uL Red Blood Count 2.45 4.20-5.50 X10*6/uL Hemoglobin 8.7 12.0-16.0 g/dl Hematocrit 26.6 37.0-47.0 % Mean Corpuscular Volume 108.6 80.0-98.0 fL Mean Corpuscular Hemoglobin 35.5 27.0-33.0 pg Mean Corpuscular HGB Conc 32.7 31.0-35.0 g/dl Red Cell Distribution Width 14.7 11.0-16.0 % Platelet Count 163 160-400 X10*3/uL Mean Platelet Volume 9.5 9.4-12.3 fL Neutrophils Percent Auto 74.2 45-73 % Imm Gran Pct Auto 0.3 0.0-0.4 % Lymphocytes Percent Auto 13.7 20-40 % Monocytes Percent Auto 8.6 2-11 % Eosinophils Percent Auto 2.9 0-4 % Basophils Percent Auto 0.3 0-2 % NRBC Pct Auto 0.0 0.0-0.2 /100WBC Neutrophils Absolute Auto 4.8 2.0-8.3 x10*3/u L Imm Gran Abs Auto 0.02 0.00-0.03 X10*3/uL Lymphocytes Absolute Auto 0.9 1.2-4.9 X10*3/u L Monocytes Absolute Auto 0.6 0.1-1.2 X10*3/uL Eosinophils Absolute Auto 0.2 0.0-0.4 X10*3/u L Basophils Absolute Auto 0.0 0.0-0.2 X10*3/uL NRBC Abs Auto 0.000 0.0-0.012 X10*3/uL Comprehensive Met. Panel Reviewed date:03/04/2024 03:31:38 PM Interpretation:Abnormal Performing Lab:[facility], [address] [place] [id number] Notes/Report: Sodium 142 135-145 mmol/L Potassium 4.3 3.3-5.1 mmol/L Chloride 101 96-108 mmol/L Carbon Dioxide 30 22-29 mmol/L Anion Gap 15 12-20 Blood Urea Nitrogen 42 9-16 mg/dL Creatinine 2.13 0.5-1.4 mg/dL Creatinine Clr Calc Pharmacy 18.3 Provided height and weight: 154.94 cm, 59.6 kg. eGFR (calculated from the MDRD study equation) and eCrCl (calculated from the Cockcroft-Gault equation) are based on different parameters and may not yield comparable results. If eCrCl result is absurd, please check patient's height/weight. Estimated Glomerular Filt Rate 22 Chronic Kidney Disease: Estimated GFR < 60 mL/min/1.73m2 Severe Kidney Disease: Estimated GFR < 15 mL/min/1.73m2 Glucose Random 186 60-115 mg/dL Calcium 9.4 8.4-10.2 mg/dL Bilirubin Total 0.7 0.0-1.0 mg/dL Aspartate Amino Transferase 48 5-31 U/L Alanine Aminotransferase 159 0-31 U/L Total Protein 7.0 6.5-8.0 g/dL Albumin Level 3.9 3.5-5.0 g/dL Alkaline Phosphatase 83 39-117 U/L Type and Screen Reviewed date:03/04/2024 05:19:32 PM Interpretation:Negative Performing Lab:[facility], [address] [place] [phone] Notes/Report: Witnessed by TANESHA Blood Type BP Antibody Screen NEGATIVE Complete Blood Count Auto Di ff Reviewed date:03/25/2024 03:15:42 PM Interpretation:Abnormal Performing Lab:[facility], [address] [place] [phone] Notes/Report: White Blood Count 5.9 4.8-10.8 X10*3/uL Red Blood Count 2.33 4.20-5.50 X10*6/uL Hemoglobin 8.5 12.0-16.0 g/dl Hematocrit 25.4 37.0-47.0 % Mean Corpuscular Volume 109.0 80.0-98.0 fL Mean Corpuscular Hemoglobin 36.5 27.0-33.0 pg Mean Corpuscular HGB Conc 33.5 31.0-35.0 g/dl Red Cell Distribution Width 13.8 11.0-16.0 % Platelet Count 162 160-400 X10*3/uL Mean Platelet Volume 9.0 9.4-12.3 fL Neutrophils Percent Auto 67.8 45-73 % Imm Gran Pct Auto 0.2 0.0-0.4 % Lymphocytes Percent Auto 18.9 20-40 % Monocytes Percent Auto 10.6 2-11 % Eosinophils Percent Auto 2.2 0-4 % Basophils Percent Auto 0.3 0-2 % NRBC Pct Auto 0.0 0.0-0.2 /100WBC Neutrophils Absolute Auto 4.0 2.0-8.3 x10*3/u L Imm Gran Abs Auto 0.01 0.00-0.03 X10*3/uL Lymphocytes Absolute Auto 1.1 1.2-4.9 X10*3/u L Monocytes Absolute Auto 0.6 0.1-1.2 X10*3/uL Eosinophils Absolute Auto 0.1 0.0-0.4 X10*3/u L Basophils Absolute Auto 0.0 0.0-0.2 X10*3/uL NRBC Abs Auto 0.000 0.0-0.012 X10*3/uL Type and Screen Reviewed date:03/25/2024 03:47:47 PM Interpretation:Negative Performing Lab:[facility], [address] [place] [phone] Notes/Report: Witnessed by LATHANE Blood Type BP Antibody Screen NEGATIVE REASON FOR REFERRAL Reason Impaired renal funct ion Diagnosis 1 Disorder of kidney a nd ureter, unspecified (N28.9) Referral Organization John Martinez FACP Referring Provider First Name John Referring Provider Last Name Fabrice Referring Provider Speciality Internal edicine Referred Provider Mejia Soler Referred Provider Specialty Nephrology General Notes Rema Chapman 4 02:43:38 PM EDT > Referral faxed prior to scheduling Referral Priority Routine Referral Appointment Date 12/19/2023 Reason Neck pain Diagnosis 1 Neck pain (M54.2) Referral Organization John Martinez FACP Referring Provider First Name John Referring Provider Bebeto Name Fabrice Referring Provider Speciality Internal edicine Referred Provider Randolph Larios Referred Provider Specialty Physical Med icine and Rehabilitation General Notes Rema Chapman 4 10:07:38 AM EDT > Referral faxed prior to scheduling. Referral Priority Routine Referral Appointment Date 12/10/2023 Reason Right lower leg sore Diagnosis 1 Wound of right lower extremity, subsequent encounter (S81.801D) Referral Organization John Martinez FACP Referring Provider First Name John Referring Provider Bebeto Name Fabrice Ref[facility] Referred Provider [facility] Referred Provider Specialty Hyperbaric M edicine General Notes PageRema 4 10:36:29 AM EDT > Referral faxed and patient is aware they will contact her., Vivi Gupta 02/14/2024 09:50:16 AM EDT > patient anxious to be scheduled at the clinic. [facility] for clinic to call this office. Referral Priority Routine MEDICATIONS Medication SIG (Take, Route, Frequency, Duration) Notes Start Date End Date Status Levothyroxine Sodium 100 MCG 1 tablet in the morning on an empty stomach, 5 days a week Orally Once a day Active FreeStyle Lite Test - as directed In Vit ro Once a day Dx: E11.29 Active Rosuvastatin Calcium 20 MG 1 tablet Orally Once a day 08/13/2023 Active Allopurinol 300 MG 1 tablet Orally Once a day Active Exemestane 25 MG 1 tablet with a meal Orally Once a day Active Gabapentin 100 MG 2 capsules at bedtim e Orally Once a day Active Aspirin Adult Low Strength 81 MG 1 tablet Orally Once a day Active Vitamin B-12 5000 MCG 1 tablet Orally On ce a day Active hydrALAZINE HCl 25 MG 1 tablet with food Orally Twice a day Active Folic Acid 1 MG 1 tablet Orally Once a day Active Carvedilol 6.25 MG 1 tablet with food Orally Twice a day Active Vitamin D3 2000 UNIT 1 capsule Orally On ce a day Active FreeStyle Lancets - as directed Subcutaneous Once a day for 90 days 12/31/2023 Active Clopidogrel Bisulfate 75 MG 1 tablet Orally Once a day Active Vitamin E 450 MG (1000 UT) 1 capsule Orally Once a day Active Vitamin C 1000 MG 1 tablet Orally Once a day Active Imodium A-D 2 MG 1 tablet as needed Orally Once a day Active D-Mannose 500 MG 1 capsule Orally Onc e a day Active Cranberry 400 MG 1 capsule Orally Onc e a day Active Bumetanide 1 MG 1 tablet Orally Once a day for 30 day(s) 02/10/2024 Active IMMUNIZATIONS Vaccine Route Administration Date Status Comme nts Influenza High Dose IM Intramuscular 01/23/2019 Administer ed Influenza High Dose IM Intramuscular 02/09/2021 Administer ed COVID-19 Pfizer BioNTech Unknown 07/16/2020 Administere d COVID-19 Pfizer BioNTech Unknown 08/08/2020 Administere d Influenza High Dose Unknown 02/05/2018 Administered PPSV23 Unknown 02/16/2016 Administered Flu-aIIV4 Unknown 04/04/2022 Administered Influenza High Dose IM Intramuscular 01/08/2023 Administer ed SOCIAL HISTORY Tobacco Use: Social History Observation Description Date Details (start date - stop date) Former Smoker NA - NA Sex Assigned At : Social History Observation Description Sex Assigned At Unknown Tobacco Use/Smoking Question Answer Notes Patient is a former smoker How long has it been since y ou last smoked? > 10 years Additional Findings: Tobacco Non-User Fo rmer smoker, currently using no form of tobacco Alcohol Screen Question Answer Notes Did you have a drink containing alcohol in the p ast year? 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) Active confirmed 0489179924020 Problem Idiopathic gout involving toe of left foot, unspecified chronicity (M10.072) Active confirmed 69995714 Problem Postoperative hypothyroidism (E89.0) Active confirmed 06517140 Problem Constipation, unspecified constipation type (K59.00) Active confirmed Constipation (84986484) Problem Hyperglycemia (R73.9) Active confirmed 63887870 Problem Renal insufficiency (N28.9) Active confirmed 719103976 Problem Iron deficiency anemia due to chronic blood loss (D50.0) Active confirmed 766704210 Problem Type 2 diabetes mellitus with other diabetic kidney complication (E11.29) Active confirmed 97521000 Problem Cataract of left eye, unspecified cataract type (H26.9) Active confirmed 179534951 Problem Loss of balance (R26.89) Active confirmed 242647728 Problem Pessary maintenance (Z46.89) Active confirmed 124387333 Problem Malignant neoplasm of unspecified site of right female breast (C50.911) Active confirmed 656735373 Problem Estrogen receptor positive status [ER+] (Z17.0) Active confirmed 438997137 Problem Paresthesia of skin (R20.2) Active confirmed 83154432 Problem Hypoxemia (R09.02) Active confirmed Hyp oxemia (680261471) VITAL SIGNS Blood pressure diastolic 60 mm Hg 01/15/2024 Height 59.25 in 02/10/2024 Blood pressure systolic 104 mm Hg 01/15/2024 Weight 129 lbs 01/15/2024 BMI 25.83 kg/m2 01/15/2024 Encounters Encounter Location Date Provider Diagnosis John Avina DO, [facility] [address] [place], [place] [id number] 07/10/2023 John Avina Type 2 diabetes mellitus with other diabetic kidney complication E11.29 ; Chronic systolic congestive heart failure I50.22 ; Coronary artery disease involving creek coronary artery of creek heart without angina pectoris I25.10 ; Postoperative hypothyroidism E89.0 ; Idiopathic gout involving toe of left foot, unspecified chronicity M10.072 ; Iron deficiency anemia due to chronic blood loss D50.0 ; Malignant neoplasm of unspecified site of right female breast C50.911 and Estrogen receptor positive status [ER+] Z17.0 John Avina DO, [facility] [address] [place], [place] [id number] 01/07/2024 John Avina DO, [facility] [address] [place], [place] [id number] 09/17/2023 John Avina Coronary artery dise ase involving creek coronary artery of creek heart without angina pectoris I25.10 ; Chronic systolic congestive heart failure I50.22 ; Postoperative hypothyroidism E89.0 ; Idiopathic gout involving toe of left foot, unspecified chronicity M10.072 ; Type 2 diabetes mellitus with other diabetic kidney complication E11.29 and Iron deficiency anemia due to chronic blood loss D50.0 John Avina DO, [facility] [address] [place], [place] [id number] 11/19/2023 John Avina DO, [facility] [address] [place], [place] [id number] 10/01/2023 John Avina Coronary artery dise ase involving creek coronary artery of creek heart without angina pectoris I25.10 ; Chronic systolic congestive heart failure I50.22 ; Type 2 diabetes mellitus with other diabetic kidney complication E11.29 ; Iron deficiency anemia due to chronic blood loss D50.0 ; Postoperative hypothyroidism E89.0 and Idiopathic gout involving toe of left foot, unspecified chronicity M10.072 John Avina DO, [facility] [address] [place], [place] [id number] 10/29/2023 John Avina Coronary artery dise ase involving creek coronary artery of creek heart without angina pectoris I25.10 ; Chronic systolic congestive heart failure I50.22 ; Postoperative hypothyroidism E89.0 ; Type 2 diabetes mellitus with other diabetic kidney complication E11.29 ; Iron deficiency anemia due to chronic blood loss D50.0 and Idiopathic gout involving toe of left foot, unspecified chronicity M10.072 John Avina DO, [facility] [address] [place], [place] [id number] 01/15/2024 John Avina Chronic systolic congestive heart failure I50.22 ; Coronary artery disease involving creek coronary artery of creek heart without angina pectoris I25.10 ; Idiopathic gout involving toe of left foot, unspecified chronicity M10.072 ; Postoperative hypothyroidism E89.0 ; Renal insufficiency N28.9 ; Type 2 diabetes mellitus with other diabetic kidney complication E11.29 ; Malignant neoplasm of unspecified site of right female breast C50.911 and Iron deficiency anemia due to chronic blood loss D50.0 John Avina DO, [address] [id number] 05/21/2023 John Avina DO, [address] [id number] 05/30/2023 John Avina DO, [address] [id number] 07/15/2023 John Avina Chronic systolic congestive heart failure I50.22 and Type 2 diabetes mellitus with other diabetic kidney complication E11.29 John Avina DO, [address] [id number] 07/16/2023 John Avina Anesthesia of skin R20.0 and Paresthesia of skin R20.2 John Avina DO, [facility] [address] [place], [place] [id number] 08/12/2023 John Avina DO, [address] [id number] 08/13/2023 John Avina DO, [address] [id number] 08/14/2023 John Avina DO, [facility] [address] [place], [place] [id number] 08/20/2023 John Avina DO, [address] [id number] 08/20/2023 John Avina DO, [address] [id number] 08/21/2023 John Avina DO, FACP [address] [place], [place] [id number] 08/21/2023 John Avina DO, [facility] [address] [place], [place] [id number] 09/25/2023 John Avina DO, [facility] [address] [place], [place] [id number] 10/11/2023 John Avina DO, [facility] [address] [place], [place] [id number] 10/29/2023 John Avina Coronary artery dise ase involving creek coronary artery of creek heart without angina pectoris I25.10 John Avina DO, [facility] [address] [place], [place] [id number] 11/12/2023 John Avina Type 2 diabetes mellitus with other diabetic kidney complication E11.29 John Avina DO, [facility] [address] [place], [place] [id number] 11/18/2023 John Avina Type 2 diabetes mellitus with other diabetic kidney complication E11.29 John Avina DO, [facility] [address] [place], [place] [id number] 11/20/2023 John Avina DO, [facility] [address] [place], [place] [id number] 12/20/2023 John Avina DO, [facility] [address] [place], [place] [id number] 12/31/2023 John Avina DO, [facility] [address] [place], [place] [id number] 02/11/2024 John Avina DO, [address] [id number] 02/14/2024 John Avina Type 2 diabetes mellitus with other diabetic kidney complication E11.29 John Avina DO, [facility] [address] [place], [place] [id number] 02/28/2024 John Avina Type 2 diabetes mellitus with other diabetic kidney complication E11.29 John Avina DO, [facility] [address] [place], [place] [id number] 08/13/2023 John Avina Chronic systolic congestive heart failure I50.22 ; Coronary artery disease involving creek coronary artery of creek heart without angina pectoris I25.10 ; Postoperative hypothyroidism E89.0 ; Type 2 diabetes mellitus with other diabetic kidney complication E11.29 ; Iron deficiency anemia due to chronic blood loss D50.0 ; Renal insufficiency N28.9 and Idiopathic gout involving toe of left foot, unspecified chronicity M10.072 John Avina DO, [address] [id number] 02/10/2024 John Avina Chronic systolic congestive heart failure I50.22 ; Coronary artery disease involving creek coronary artery of creek heart without angina pectoris I25.10 ; Idiopathic gout involving toe of left foot, unspecified chronicity M10.072 ; Postoperative hypothyroidism E89.0 ; Type 2 diabetes mellitus with other diabetic kidney complication E11.29 ; Renal insufficiency N28.9 ; Iron deficiency anemia due to chronic blood loss D50.0 ; Malignant neoplasm of unspecified site of right female breast C50.911 ; Estrogen receptor positive status [ER+] Z17.0 and Housing insecurity Z59.819 ASSESSMENTS Encounter Date Diagnosis Assessment Notes Treatment Notes Treatment Clinical Notes 07/10/2023 Type 2 diabetes mellitus with other diabetic kidney complication (ICD-10 - E11.29) 07/10/2023 Chronic systolic congestive heart failure (ICD-10 - I50.22) Continue Rosuvastatin, 20 mg daily. Follow up with Cardiology 09/17/2023 Chronic systolic congestive heart failure (ICD-10 - I50.22) 09/17/2023 Coronary artery disease involving creek coronary artery of creek heart without angina pectoris (ICD-10 - I25.10) Cardiac catheterization is planned to be performed in 2 days 10/01/2023 Chronic systolic congestive heart failure (ICD-10 - I50.22) Follow up with Cardiology. Is seeing them in 2 days 10/01/2023 Coronary artery disease involving creek coronary artery of creek heart without angina pectoris (ICD-10 - I25.10) Follow up with Cardiology. Is seeing them in 2 days 10/29/2023 Chronic systolic congestive heart failure (ICD-10 - I50.22) 10/29/2023 Coronary artery disease involving creek coronary artery of creek heart without angina pectoris (ICD-10 - I25.10) 01/15/2024 Chronic systolic congestive heart failure (ICD-10 - I50.22) 01/15/2024 Coronary artery disease involving creek coronary artery of creek heart without angina pectoris (ICD-10 - I25.10) 07/15/2023 Chronic systolic congestive heart failure (ICD-10 - I50.22) 07/16/2023 Anesthesia of skin (ICD-10 - R20.0) 07/16/2023 Paresthesia of skin (ICD-10 - R20.2) 10/29/2023 Coronary artery disease involving creek coronary artery of creek heart without angina pectoris (ICD-10 - I25.10) 11/12/2023 Type 2 diabetes mellitus with other diabetic kidney complication (ICD-10 - E11.29) 11/18/2023 Type 2 diabetes mellitus with other diabetic kidney complication (ICD-10 - E11.29) 02/14/2024 Type 2 diabetes mellitus with other diabetic kidney complication (ICD-10 - E11.29) 02/28/2024 Type 2 diabetes mellitus with other diabetic kidney complication (ICD-10 - E11.29) 08/13/2023 Chronic systolic congestive heart failure (ICD-10 - I50.22) 08/13/2023 Coronary artery disease involving creek coronary artery of creek heart without angina pectoris (ICD-10 - I25.10) 02/10/2024 Chronic systolic congestive heart failure (ICD-10 - I50.22) 02/10/2024 Coronary artery disease involving creek coronary artery of creek heart without angina pectoris (ICD-10 - I25.10) 07/10/2023 Coronary artery disease involving creek coronary artery of creek heart without angina pectoris (ICD-10 - I25.10) Follow up with Cardiology 09/17/2023 Postoperative hypothyroidism (ICD-10 - E89.0) 10/01/2023 Type 2 diabetes mellitus with other diabetic kidney complication (ICD-10 - E11.29) 10/29/2023 Postoperative hypothyroidism (ICD-10 - E89.0) 01/15/2024 Idiopathic gout involving toe of left foot, unspecified chronicity (ICD-10 - M10.072) 07/15/2023 Type 2 diabetes mellitus with other diabetic kidney complication (ICD-10 - E11.29) 08/13/2023 Postoperative hypothyroidism (ICD-10 - E89.0) 02/10/2024 Idiopathic gout involving toe of left foot, unspecified chronicity (ICD-10 - M10.072) 07/10/2023 Postoperative hypothyroidism (ICD-10 - E89.0) 09/17/2023 Idiopathic gout involving toe of left foot, unspecified chronicity (ICD-10 - M10.072) 10/01/2023 Iron deficiency anemia due to chronic blood loss (ICD-10 - D50.0) 10/29/2023 Type 2 diabetes mellitus with other diabetic kidney complication (ICD-10 - E11.29) 01/15/2024 Postoperative hypothyroidism (ICD-10 - E89.0) 08/13/2023 Type 2 diabetes mellitus with other diabetic kidney complication (ICD-10 - E11.29) 02/10/2024 Postoperative hypothyroidism (ICD-10 - E89.0) 07/10/2023 Idiopathic gout involving toe of left foot, unspecified chronicity (ICD-10 - M10.072) 09/17/2023 Type 2 diabetes mellitus with other diabetic kidney complication (ICD-10 - E11.29) 10/01/2023 Postoperative hypothyroidism (ICD-10 - E89.0) 10/29/2023 Iron deficiency anemia due to chronic blood loss (ICD-10 - D50.0) 01/15/2024 Renal insufficiency (ICD-10 - N28.9) 08/13/2023 Iron deficiency anemia due to chronic blood loss (ICD-10 - D50.0) 02/10/2024 Type 2 diabetes mellitus with other diabetic kidney complication (ICD-10 - E11.29) 07/10/2023 Iron deficiency anemia due to chronic blood loss (ICD-10 - D50.0) Follow up with Hematology/Oncology 09/17/2023 Iron deficiency anemia due to chronic blood loss (ICD-10 - D50.0) 10/01/2023 Idiopathic gout involving toe of left foot, unspecified chronicity (ICD-10 - M10.072) 10/29/2023 Idiopathic gout involving toe of left foot, unspecified chronicity (ICD-10 - M10.072) 01/15/2024 Type 2 diabetes mellitus with other diabetic kidney complication (ICD-10 - E11.29) 08/13/2023 Renal insufficiency (ICD-10 - N28.9) 02/10/2024 Renal insufficiency (ICD-10 - N28.9) 07/10/2023 Malignant neoplasm of unspecified site of right female breast (ICD-10 - C50.911) To undergo lumpectomy. Will see Hematology/Oncology and Cardiology preoperatively 01/15/2024 Malignant neoplasm of unspecified site of right female breast (ICD-10 - C50.911) 08/13/2023 Idiopathic gout involving toe of left foot, unspecified chronicity (ICD-10 - M10.072) 02/10/2024 Iron deficiency anemia due to chronic blood loss (ICD-10 - D50.0) Follow up with Hematology; Dr. Tse 07/10/2023 Estrogen receptor positive status [ER+] (ICD-10 - Z17.0) To undergo lumpectomy. Will see Hematology/Oncology and Cardiology preoperatively 01/15/2024 Iron deficiency anemia due to chronic blood loss (ICD-10 - D50.0) 02/10/2024 Malignant neoplasm of unspecified site of right female breast (ICD-10 - C50.911) Continue Exemestane 02/10/2024 Estrogen receptor positive status [ER+] (ICD-10 - Z17.0) Continue vitamin D 02/10/2024 Housing insecurity (ICD-10 - Z59.819) Have NN reach out to Tonia to help with community based resources PLAN OF TREATMENT Pending Test Test Name Order Date BRAIN NATRIURETIC PEPTIDE (BNP) 02/10/20 CBC w DIFF 02/10/2024 CBC w DIFF 10/29/2023 LIPOPROTEIN FRACTIONATION (LIPID PANEL) 10/29/2023 LIPOPROTEIN FRACTIONATION (LIPID PANEL) 02/10/2024 PROFILE, FASTING 02/10/2024 PROFILE, FASTING 10/29/2023 TSH (THYROID STIMULATING HORMONE) 2023 TSH (THYROID STIMULATING HORMONE) 2023 VITAMIN D 25-OH TOTAL 02/10/2024 VITAMIN D 25-OH TOTAL 10/29/2023 Nerve Conduction Study 07/16/2023 Microalbumin, Random 07/10/2023 Hemoglobin A1c 07/10/2023 Hemoglobin A1c 02/10/2024 Insurance Providers Payer Name Payer Address Payer Phone Subscriber Number Group Number Insured Name Patient Relationship to Insured Coverage Start Date Coverage End Date MEDICARE [address] [place] [phone] [id number] Tonia Hernandez Self - patient is the insured MEDEX [address] [place] [address] [id number] Tonia Hernandez Self - patient is the insured MEDICAL (GENERAL) HISTORY Medical History History ICD Code thyroid cancer s/p thyroidectomy, with s econdary hypothyroidism cholelithiasis choledocholithiasis multiple myeloma anemia congestive heart failure cardiomyopathy coronary artery disease gout renal lithiasis neuropathy Hyperglycemia R73.9 Chronic systolic congestive heart failur e I50.22 Coronary artery disease invo lving creek coronary artery of creek heart without angina pectoris I25.10 Idiopathic gout involving toe of left fo ot, unspecified chronicity M10.072 Postoperative hypothyroidism E89.0 Renal insufficiency N28.9 Iron deficiency anemia due to chronic bl ood loss D50.0 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
--- OUTSIDE RECORDS SUMMARY | 2024-04-07 12:53 | XMS_ITS | Patient Health Record ---
Author Organization [facility] Address [address] [facility] [place] [address] Care Team Providers Care Field Sales Executive Name Role Phone John Avina MD Primary Care Provider Unavail able Raf Pink Unavailable [phone] Allergies Allergen (clinical drug ingredient) Drug/Non Drug Allergy documented on EMR Reaction Allergy Type Onset Date Status esomeprazole Nexium Unknown Drug Allergy Acti ve PredniSONE Unknown Drug Allergy Active omeprazole Prilosec Unknown Drug Allergy Active Reason For Referral No Information Medications Medication SIG (Take, Route, Frequency, Duration) Notes Start Date End Date Status hydroCHLOROthiazide Unknown Furosemide Active Levoxyl 50mcg Unknow n Valsartan 40 MG as directed Orally T wice a day Active CeleBREX Unknown Allopurinol 300 MG as directed Orally O nce a day Active Vitamin E Unknown Gemfibrozil Not-Taki ng Folic Acid Not-Takin g Calcium Unknown Rosuvastatin Calcium Active Lisinopril Unknown metFORMIN HCl 500 MG 1 tablet with a niels l Orally Once a day for 30 day(s) Active Klor-Con 10 Unknown Carvedilol 6.25 MG 1 tablet with food O rally Twice a day for 30 day(s) Active Vitamin B-12 1000 MCG 1 tablet Orally Once a day Unknown Gabapentin 300 MG 1 capsule Orally Onc e a day Active Iron Unknown Social History Tobacco use other than smoking: Question Answer Notes Are you an other tobacco user? No Problems Problem Type SNOMED Code ICD Code Onset Dates Problem Status W/U Status Risk Notes Problem 239143420 Tinea unguium (B35.1) Active confirmed Plan Of Treatment Pending Test Test Name Order Date X ray : Foot, left 3V 06/16/2012 [id number] NAIL, 1-5 07/28/2012 [id number] NAIL, 1-5 10/15/2012 [id number] NAIL, 1-5 06/16/2012 [id number] NAIL, 1-5 03/19/2023 [id number] Plate 03/09/2015 32373-Lspvlokj Plate 06/30/2015 43576-Mznbpyac Plate 09/29/2015 [id number] Plate 01/23/2016 [id number] Plate 04/26/2016 37161-Lbdfthqf Plate Each Additional Insurance Providers Payer Name Payer Address Payer Phone Subscriber Number Group Number Insured Name Patient Relationship to Insured Coverage Start Date Coverage End Date Medicare National Govt [employer] [address] [place] [address] [id number] Tonia Hernandez Self - patient is the insured [employer] Blue Shield [address] [place] [address] [id number] Tonia Hernandez Self - patient is the insured Medical (General) History Medical History History ICD Code anemia Arthritis broken bones cancer diverticulosis gall bladder problems high blood pressure poor circulation sciatica thyroid disorder measles chicken pox transfusions Numbness Gout Diabetic Heart disease covid-19 Surgical History Surgery Date(Month/Year) gall bladder 1968 kidney stones 1984 thyroid 1970, 2006, 2007, 20 08
--- OUTSIDE RECORDS SUMMARY | 2024-04-07 12:53 | XMS_ITS ---
Author Organization [facility] Address [address] [place] [address] Care Team Providers Care Photocopier Technician Name Role Phone Fabrice ALVAREZ, John Primary Care Provider Unavail able Raf Pink Unavailable [phone] Eyal Choe Unavailable [phone] REASON FOR VISIT misbooked Encounters Encounter Location Date Provider Diagnosis [facility] [address] [place] [address] 02/07/2023 Eyal Choe Plan Of Treatment No Information Progress Notes * Tonia HERNANDEZ RDOB:1945 (78 yo F)Acc No.[id number]:02/07/2023 Progress Notes Patient:Tonia KAPOOR Provider:?Eyal Choe DPM :1945???Age:77 Y???Sex:Female D ate:02/07/2023 Address:[address] [place] [phone] Pcp:John Avina MD Subjective: * Chief Complaints: * ???1. Misbooked. * Medical History:? Objective: * Vitals:? Assessment: Plan: * Treatment: * Images: * The named appointment provid er may or may not be the originator of this progress note, and it is not deemed complete until electronically signed by the appointment provider. Sign off status: Pending * Provider:?Eyal Choe DPM Date:? 023 Generated for Med ballesteros/Caryl/Hajasmitting on:?04/07/2024 12:52 PM EST
--- NOTE | 2024-04-07 14:44 | CA_ITS ---
Transthoracic Echocardiogram Patient (Last, First, Middle): Tonia Hernandez, Gender: Female Date of : 1945 Age: 78 Procedure Date: 04/07/2024 Procedure Type: Transthoracic Echocardiogram Location: OP Height: 154.94 cm Weight: 58.97 kg BSA: 1.57 m2 Heart Rate: 60 bpm BP: 108 / 68 mmHg Ethyl Blender: SB Referring MD: Lia Doshi CLINICAL REVIEW SPECIALISTMaikel Symptoms: Z86.79 - Personal history of other diseases of the circulatory system Study Quality: Adequate ECG Rhythm: Sinus Conclusions: - The left ventricular systolic function is moderately decreased. The visually estimated ejection fraction is between 35-40%. - The basal inferior and basal anterolateral segments are akinetic. - Evidence suggests grade II (moderate) diastolic dysfunction. - There is mild to moderate mitral valve regurgitation. Findings Left Ventricle Normal left ventricular cavity size. The left ventricular systolic function is moderately decreased. The visually estimated ejection fraction is between 35-40%. Evidence suggests grade II (moderate) diastolic dysfunction. There is mild septal asymmetric hypertrophy. Wall Motion Rest Echo Findings The basal inferior and basal anterolateral segments are akinetic. Right Ventricle Normal right ventricular cavity size. There is moderately decreased right ventricular systolic function. Atria The left atrium is severely dilated. The right atrium is normal in size. Aortic Valve There is a normal trileaflet aortic valve. There is mild calcification of the aortic valve. There is no aortic valve stenosis. There is mild aortic valve regurgitation. Mitral Valve The posterior mitral leaflet has restricted mobility. There is mild mitral annular calcification. There is mild to moderate mitral valve regurgitation. There is no mitral valve stenosis. Pulmonic Valve The pulmonic valve is likely normal. Tricuspid Valve There is no tricuspid valve regurgitation. Tricuspid regurgitation envelope is inadequate for calculation of right ventricular systolic pressure. Great Vessels The asc aorta and aortic arch are normal in size. Venous The inferior vena cava is normal in size and collapses greater than 50% with inspiration. Pericardium/Pleural There is a small loculated pericardial effusion overlying the left ventricle. Prior Study Comparison Changes noted compared to prior study dated: 12/17/2023. Mitral regurgitation less prominent. Measurements 2D Linear Measurements IVSd: 1.17 0.6-0.9/0.6-1.0 cm LVIDd: 5.38 3.9-5.3/4.2-5.9 cm LVIDd Index: 3.43 2.4-3.2/2.2-3.1 cm/m2 LVIDs: 5.09 2.0-3.6 cm LVPWd: 0.87 0.7-1.1 cm LA Diam: 4.60 2.7-3.8/3.0-4.0 cm LAIDs Index: 2.93 1.5-2.3 cm/m2 LV Mass: 263.08 67-162/88-224 g LV Mass Index: 167.57 43-95/49-115 g/m2 LVOT Diam: 2.00 3.0+(-)1.3 cm 2D Systolic Function EF 4C: 37.70 >55% EF 2C: 34.30 >55% EF BiP: 36.20 >55% Mitral Valve MV Pk E: 0.75 MV PK A: 0.67 MV Decel Time: 201.00 E/A: 1.10 E'Lateral: 3.26 E'Medial: 3.37 E/E' Med: 22.30 E/E' Lat: 23.00 PHT: 59.00 MVA PHT: 3.73 Decel Millard: 3.74 Aortic Valve AoV Pk Dex: 1.47 AoV Mn Dex: 1.13 AoV VTI: 0.32 AoV Pk Grad: 9.00 Aov Mn Grad: 6.00 LUCAS Cont.VTI: 1.82 AI Pk Dex: 4.56 AI VTI: 2.84 AI Millard: 2.48 AI Alias Dex: 0.40 AI RV - PISA: 14.00 ERO - PISA: 5.00 LVOT LVOT Pk Dex: 0.81 LVOT Mn Dex: 0.61 LVOT VTI: 0.19 LVOT Pk Grad: 3.00 LVOT Mn Grad: 2.00 LVOT Diam: 2.00 LVOT Area: 3.14 Diastolic Function MV Pk E: 0.75 MV Pk A: 0.67 E/A: 1.10 E'Medial: 3.37 E/E' Med: 22.30 E' Laterial: 3.26 E/E' Lat: 23.00 Right Ventricle TAPSE (mm): 10.70 TVS' Dex: 8.16 Tricuspid Valve RA Press: 3.00 Great Vessels Aorta Sinus of Valsalva: 3.30 2.0-3.5 cm Ao Asc: 3.70 2.1-3.4 cm Ao Arch: 2.80 Pulmonary Valve PV Pk Dex: 0.77 Peak PV Grad: 2.00 Updated in Other Vendor System with Status of Final Alexander Matias MD electronically signed on 04/08/2024 4:41:36 PM with status of Final
== END ==
LOC: HO.CARD 12:48
PROVIDERS: PCP Internal Medicine; Visit Provider Nurse Practitioner Family
DX: I25.10 Atherosclerotic heart disease of native coronary artery without angina pectoris (principal); Z95.5 Presence of coronary angioplasty implant and graft; Z86.79 Personal history of other diseases of the circulatory system
CPT/HCPCS: 93306

== ENCOUNTER → 2024-04-07 14:44 | Outpatient (BNV) | payer MEDICARE, SELFPAY | PROVIDERS: PCP Internal Medicine; Visit Provider Internal Medicine | DX: I35.1 Nonrheumatic aortic (valve) insufficiency (principal); I34.0 Nonrheumatic mitral (valve) insufficiency; I34.81 Nonrheumatic mitral (valve) annulus calcification; I42.2 Other hypertrophic cardiomyopathy; I35.8 Other nonrheumatic aortic valve disorders | CPT/HCPCS: 93306 ==

== ENCOUNTER 2024-04-23 13:28 | Outpatient (AMB) | payer MEDICARE, SELFPAY ==
--- NOTE | 2024-04-23 13:36 | MHC.OFFVIS ---
Vital Signs 04/23/24 13:37 Height 5 ft 1 in Weight 133 lb 2.547 oz BMI 25.2 BP 128/50 L Blood Pressure Location Lt brachial Position Sitting Pulse 59 Pulse Source Pulse Oximeter Intake Visit Reasons: 3 mth f/up Legal Transcriptionist Required: No Accompanied by: Self / Same As Patient Allergies esomeprazole [From NEXIUM] Allergy (Intermediate, Verified 02/11/24 13:56) CHEST PAIN omeprazole [From PRILOSEC] Allergy (Intermediate, Verified 02/11/24 13:56) CHEST PAIN diphenhydramine [From Benadryl] Allergy (Verified 02/11/24 13:56) Dizziness Medication List - Last Reconciled 04/23/24 by Helio Comer MD allopurinol 300 mg PO DAILY ascorbic acid (vitamin C) (Vitamin C) 500 mg PO DAILY aspirin 81 mg PO DAILY biotin 5 mg PO DAILY bumetanide 2 mg See Protocol PO DAILY 90 days calcium carbonate (Calcium 600) 600 mg PO DAILY carvedilol 6.25 mg PO BID cholecalciferol (vitamin D3) (Vitamin D3) 50 mcg PO DAILY clopidogrel 75 mg PO DAILY cranberry 500 mg PO DAILY cyanocobalamin (vitamin B-12) 5,000 mcg PO DAILY d-mannose (AZO D-Mannose) 500 mg PO DAILY exemestane 25 mg PO DAILY folic acid 1 mg PO DAILY gabapentin 100 mg PO DAILY hydralazine 25 mg See Protocol PO BID 90 days levothyroxine 100 mcg PO MOTUTHFRSA@0600 metformin ER 500 mg PO DAILY rosuvastatin 20 mg PO DAILY vitamin E 450 mg PO DAILY HPI Comments Details: Tonia comes for follow-up. Unfortunately she had an accidental fall 2 weeks ago and fell on her left side. Complaining of pain in the left thoracic lateral area along with the left upper posterior thoracic area. She said pain is worse with deep breathing. She has not had any x-ray done and says that it is not going to be much helpful. Denies any spine pain. Denies any heart failure symptoms. Denies any orthopnea, PND, leg edema. Weight has remained stable. Blood pressures remained stable. Denies any chest pain. Received blood transfusion last week for severe anemia. Her creatinine remains elevated in the 2 range. [facility] Medical History CAD (coronary artery disease) CHF (congestive heart failure) Cervix prolapsed into vagina History of blood transfusion (~02/01/23) Diabetes mellitus HFrEF (heart failure with reduced ejection fraction) Cardiomyopathy Normal colonoscopy Type 2 diabetes mellitus Diverticulosis Irritable bowel syndrome Pulmonary emboli GERD (gastroesophageal reflux disease) Nephrolithiasis Hypoparathyroidism Papillary thyroid carcinoma HTN (hypertension) Polymyalgia rheumatica Hyperglycemia Chronic anemia Anemia Surgical History (Updated 04/23/24 @ 14:03 by Helio Comer MD) Stented coronary artery Breast mass, right H/O endoscopy History of cholecystectomy H/O total thyroidectomy Family History Sister CHF (congestive heart failure) Daughter Breast cancer Son Kidney stones Social History Household Members: Family Household Members Other:: son Housing: House Do you presently have visiting nurse or other home services: No Alcohol intake: never Comment: Pt refuses fall risk protocol/ precautions- ambulates with steady gait Patient Tobacco Use Status: Never used Tobacco Years Smoked: 30 +/- e-Cigarette/Vaping Use: Never Used Second Hand Smoke Exposure: No service: No Current occupational status: retired Current occupation: Right Handed Review of Systems Const Denies chills, Denies fatigue, Denies fever(s), Denies weight gain and Denies weight loss ENT Denies dizziness Card Denies chest pain, Denies leg edema, Denies lightheadedness, Denies palpitations, Denies dyspnea on exertion, Denies orthopnea and Denies other Resp Denies cough and Denies dyspnea on exertion GI Denies hematochezia and Denies change in stool character Musc Denies abnormal gait, Denies muscle weakness, Denies numbness, Denies radiating pain into limb and Denies tingling Neuro Denies abnormal gait, Denies dizziness, Denies numbness and Denies tingling Endo Denies fatigue and Denies palpitations Physical Exam Vital Signs: Last Vital Signs Pulse 59 04/23/24 13:37 BP 128/50 L 04/23/24 13:37 BMI result Body Mass Index 25.2 Const General: cooperative, healthy appearing, comfortable and no acute distress Orientation/consciousness: patient oriented x3 Neck Neck: Yes normal visual inspection Resp Effort & Inspection: normal respiratory effort Auscultation: clear to auscultation bilaterally, no rales, no rhonchi and no wheezes Cardio Jugular venous distension: no JVD Rate: regular rate Rhythm: regular rhythm Heart sounds: S1 normal heart sound present, S2 normal heart sound present, no murmurs and no rubs Neuro General: patient oriented x3 Extrem General: Yes normal to inspection and No no pedal edema Psych Appearance: grossly normal Mental Status: mental status grossly normal Speech and movement: Normal speech and movement present Assessment & Plan Assessment & Plan (1) HFrEF (heart failure with reduced ejection fraction): Code(s): I50.20 - Unspecified systolic (congestive) heart failure Category: Medical Plan: Heart failure with reduced ejection fraction with moderate LV systolic dysfunction with LVEF of 35-40% with mild to moderate mitral regurgitation. This has improved. LV ejection fraction has improved. Clinically appears to be euvolemic and well compensated. She has multiple comorbidities including frailty, severe anemia related to myelodysplastic syndrome as well as chronic kidney disease and underlying coronary artery disease. She remains at risk for development of heart failure syndrome but has done well on current diuretic regimen. We discussed about heart failure management again. Daily weight monitoring avoidance of salt loading was discussed. She understands agrees. Additional diuretics as need be. Continue afterload reduction with Isordil as well as continue carvedilol for neurohormonal modulation. Continue to manage her anemia aggressively as per Hematology in require transfusion as need be. Please administer IV diuretics after he has transfusion. No indication for ICD therapy as her LV ejection fraction has improved. Will continue monitor annually by echocardiogram. (2) CAD (coronary artery disease): Comment: Cardiac catheterization, August 2023 showed critical RCA stenosis 95%, status post drug-eluting stent, 70% circumflex stenosis Code(s): I25.10 - Atherosclerotic heart disease of [place] coronary artery without angina pectoris Category: Medical Plan: CAD status post drug-eluting stent to RCA in August of 2023. Continue dual antiplatelet therapy for total of 1 year unless she develops a bleeding complication. Lifelong aspirin therapy beyond that. Continue aggressive risk factor modification. Blood pressure is currently well optimized. Continue high-intensity statin therapy. Target goal LDL less than 70 mg/dL. Consider discontinue metformin therapy and choosing an alternative given her renal dysfunction. Will follow up in the clinic in 3 months time, sooner p.r.n.. Thank you for allowing me to partake in his care Coding Level of Care Code Est Pt Level 4 (69428) Complex EM visit Add On G2211 Diagnoses HFrEF (heart failure with reduced ejection fraction) I50.20 CAD (coronary artery disease) I25.10
[2024-04-23 13:37] VITALS: BP 128/50; PULSE 59; BMI 25.2
--- OUTSIDE RECORDS SUMMARY | 2024-04-23 14:40 | XMS_ITS ---
Author Organization John Avina DO, [facility] Address [address] [place], [place] [id number] Care Team Providers Care Purse Framer Name Role Phone Fabrice John Primary Care Provider REASON FOR VISIT Refill MEDICATIONS Medication SIG (Take, Route, Fr equency, Duration) Notes Start Date End Date Status FreeStyle Lancets - as directed Subcutan eous Once a day for 90 days 12/31/2023 Active Encounters Encounter Location Date Provider Diagnosis [facility] [address] [place], [place] [phone] 02/14/2024 John Avina Type 2 diabetes mellitus [...]
--- OUTSIDE RECORDS SUMMARY | 2024-04-23 14:40 | XMS_ITS ---
Author Organization John Avina DO, [facility] Address [address] [place], [place] [id number] Care Team Providers Care Equal Opportunity Counselor Name Role Phone Fabrice John Primary Care Provider [phone] REASON FOR VISIT Refill and Message MEDICATIONS Medication SIG (Take, Route, Fr equency, Duration) Notes Start Date End Date Status FreeStyle Lancets - as directed Subcutan eous Once a day for 90 days 12/31/2023 Active Encounters Encounter Location Date Provider Diagnosis [facility] [address] [place], [place] [id number] 02/28/2024 John Avina Type 2 diabetes mellitus [...]
--- OUTSIDE RECORDS SUMMARY | 2024-04-23 14:41 | XMS_ITS ---
Author Organization [facility]ina DO, [facility] Address [address] [place], [place] [id number] Care Team Providers Care Tanker Truck Driver Name Role Phone John Avina Primary Care Provider [phone] REASON FOR VISIT Message Encounters Encounter Location Date Provider Diagnosis John Avina DO, F[facility] [address] [place] [phone] 02/11/2024 John Avina PLAN OF TREATMENT No Information
--- OUTSIDE RECORDS SUMMARY | 2024-04-23 14:42 | XMS_ITS ---
Author Organization [facility] Address [address] [place] [address] Care Team Providers Care County Tax Assessor Name Role Phone Fabrice ALVAREZ, Jhon Primary Care Provider Unavail able Raf Pink Unavailable [phone] Eyal Choe Unavailable [phone] REASON FOR VISIT misbooked Encounters Encounter Location Date Provider [facility] [address] [place] [address] 02/07/2023 Eyal Choe Plan Of Treatment No Information Progress Notes * Tonia HERNANDEZ RDOB:1945 (78 yo F)Acc No.[id number]:02/07/2023 Progress Notes Patient:Tonia KAPOOR Provider:?Eyal Choe DPM :1945???Age:77 Y???Sex:Female D ate:02/07/2023 Address:[address] [place] [phone] Pcp:John Avina MD Subjective: * Chief Complaints: [...] Choe DPM Date:? 023 Generated for Med ballesteros/Caryl/Deniseitting on:?04/23/2024 02:41 PM EST
--- OUTSIDE RECORDS SUMMARY | 2024-04-23 14:42 | XMS_ITS | Patient Health Record ---
Author Organization [facility] Address [address] [place] [address] Care Team Providers Care Jewelry Casting Model Maker Name Role Phone John Avina MD Primary Care Provider Unavail able Raf Pink Unavailable [phone] Allergies Allergen (clinical drug ingredient) Drug/Non Drug [...] Problem Status W/U Status Risk Notes Problem [id number] Tinea unguium (B35.1) Active confirmed Plan Of Treatment Pending Test Test Name Order Date X ray : Foot, left 3V 06/16/2012 [id number] NAIL, 1-5 07/28/2012 [id number] NAIL, 1-5 10/15/2012 [id number] NAIL, 1-5 06/16/2012 [id number] NAIL, 1-5 03/19/2023 [id number]-Yrmhxupv Plate 03/09/2015 46975-Jorebyfc Plate 06/30/2015 28550-Rjrwvflm Plate 09/29/2015 09356-Diyabvgk Plate 01/23/2016 23375-Mjzpyfgq Plate 04/26/2016 23130-Vkojbocj Plate Each Additional Insurance Providers Payer Name Payer Address Payer Phone Subscriber Number Group Number Insured Name Patient Relationship to Insured Coverage Start Date Coverage End Date Medicare National Govt [employer] [address] [facility] [place] [address] [id number] Tonia Hernandez Self - patient is the insured [employer] [address] [place] [address] [id number] Tonia Hernandez Self - patient is the [...]
--- OUTSIDE RECORDS SUMMARY | 2024-04-23 14:42 | XMS_ITS ---
Author Organization [facility] Address [address] [place] [address] Care Team Providers Care Tire Mounter Name Role Phone John Avina MD Primary Care Provider Unavail able Raf Pink Unavailable [phone] Allergies Allergen (clinical drug ingredient) Drug/Non Drug [...] Problem Status W/U Status Risk Notes Problem [id number] Tinea unguium (B35.1) Active confirmed Vital Signs Height 5 ft 1 in in 03/19/2023 Weight 126 lbs 03/19/2023 BMI 23.8 kg/m2 03/19/2023 Procedures Procedure Date Ordered Date Performed Result Body Sit e [id number] NAIL, 1-5 03/19/2023 N/A Encounters Encounter Location Date Provider Diagnosis [facility] [place] [address] [place] [address] 03/19/2023 Raf Pink Tinea unguium B35.1 ; [...] Treatment Pending Test Test Name Order Date [id number] NAIL, 1-5 03/19/2023 Next Appt Details Follow [...] as necessary. Patient chooses, no pharmaceutical tx (30984) Progress Notes * Tonia HERNANDEZ RDOB:1945 (77 yo F)Acc No.[id number]:03/19/2023 Progress Notes Patient:?Tonia Hernandez R Provider:?Raf Pink DPM :1945???Age:77 Y???Sex:Female D ate:03/19/2023 Address:[address] [place] [address] [place], [phone] Pcp:John Avina MD Subjective: * Chief Complaints: [...] as necessary. Patient chooses, no pharmaceutical tx (56312).? * Procedure Codes:?08657 WILL HALL, 1-5 * Preventive Medicine:? ??Counseling:?Discussion:?-03: [...] Pink DPM Date:?2022 Generated for Med ballesteros/Caryl/Perfecto on:?04/23/2024 09:02 AM EST History and Physical Notes * HPI [...] person, place, and t lore Vascular DP PULSES (B): 2/4, B/L PT PULSES (B): 2/4, B/L CAPILLARY FILL TIME: immediate, all digi ts, B/L TEMPERTURE GRADIENT (C): warm to cool, p roximal to distal, B/L TROPHIC CONDITION-TEXTURE/ELASTICITY/TURGOR/HAIR GROWTH (B): normal, B/L EDEMA (C): absent, B/L PIGMENTATION: normal, B/L Nails NAILS are: Elongated, overg rown, dystrophic, lytic, greater than 3mm thick, discolored and friable with crumbly malodorous subungual debris, with pain on palpation , TA , T1 , T2
--- OUTSIDE RECORDS SUMMARY | 2024-04-23 14:42 | XMS_ITS | Patient Health Record ---
Author Organization John Avina DO, FACP Address [address], [place] [id number] Care Team Providers Care Legislative Correspondent Name Role Phone John Avina Primary Care Provider [phone] ALLERGIES Allergen (clinical drug ingredient) Drug/Non Drug Allergy documented on EMR Reaction Allergy Type Onset Date Status omeprazole Prilosec heart palpitations Drug Allergy Active esomeprazole Nexium heart palpitations Drug Allergy Active RESULTS Component Value Reference Range Notes MM tomosynthesis screening B I Reviewed date:05/21/2023 02:09:26 PM Interpretation:Incomplete Performing Lab: Notes/Report: [address] [place] [address] Mammography Report Signed Patient: Tonia Hernandez MR#: [id number] 227 : 1945 Acct:[id number] Age/Sex: 77 / F ADM Date: 05/09/23 Loc: HO.MAMMO Attending Dr: John Avina DO Ordering Physician: John Avina DO Results: 0Incom plete: Needs Additional Imaging Evaluation Date of Service: 05/09/23 Follow Up: Additional Imagi ng Procedure(s): MM tomosynthesis screening BI Accession Number(s): [id number] cc: John Avina DO EXAMINATION: MM SCREENING [...] in OV> 05/21/23 1244 DD/ 1230 TD/TT: Auditor Medical Claims: Complete Blood Count Auto Di ff Reviewed date:05/30/2023 12:31:43 PM Interpretation:Abnormal Performing Lab:[facility], [address] [place] [phone] Notes/Report: White Blood Count 6.1 4.8-10.8 X10*3/uL [...] Reviewed date:05/30/2023 12:31:43 PM Interpretation:See note Performing Lab:[facility], [address] [place] [phone] Notes/Report: Pathologist Review - CBC SEE NOTE Normochromic macrocytic anemia; scattered ovalocytes are seen. - Joses Howard M.D. Pathology Comprehensive Met. Panel Reviewed date:05/30/2023 12:31:43 PM Interpretation:Abnormal Performing Lab:[facility], [address] [place] [phone] Notes/Report: Sodium 144 135-145 mmol/L Potassium 4.3 [...] Estimated Glomerular Filt Rate 32 NOTE: For -Libyan individuals, multiply the result by 1.210. Chronic [...] Ferritin Reviewed date:05/30/2023 12:31:43 PM Interpretation:Abnormal Performing Lab:[address] [address] Notes/Report: Ferritin 1469 10-250 ng/mL Lactate Dehydrogenase Reviewed date:05/30/2023 12:31:43 PM Interpretation:Normal Performing Lab:[address] [address] Notes/Report: Lactate Dehydrogenase 145 122-220 U/L Vitamin B12 and Folate Reviewed date:05/30/2023 12:31:43 PM Interpretation:Normal Performing Lab:[address] [address] Notes/Report: Vitamin B12 > 2000 200-900 pg/mL NORMAL 200-900 PG/ML INDETERMINATE 160-199 PG/ML DEFICIENT < 160 PG/ML Folate > 20.0 > or = 4.0 ng/mL Reference Values: > or = 4.0 ng/mL < 4.0 ng/mL suggests folate deficiency Methotrexate, aminopterin and folinic acid (leucovorin) are chemotherapeutic agents whose molecular structures are similar to folate; therefore, the [employer] folate assay cannot be used for patients using these drugs. Type and Screen Reviewed date:05/30/2023 12:31:43 PM Interpretation:B Positive Performing Lab:[address], [place] [address] Notes/Report: Results at Issue Units as of 05/31/23 0956 ... Test View Group: Most Recent HGB HCT Results No results available. Results at Issue Units as of 05/31/23 1208 ... Test View Group: Most Recent HGB HCT Results No results available. Hgb 7-9 gm No Blood Type BP Antibody Screen NEGATIVE Red Blood Cells Reviewed date:05/31/2023 03:17:51 PM Interpretation:Transfused Performing Lab:[facility], [address] [place] [phone] Notes/Report: Red Blood Cells [id number] BN Red Blood Cells TRANSFUSED 05/31/23 0953 Red Blood Cells [id number] BP RC Red Blood Cells TRANSFUSED 05/31/23 1205 MM tomosynthesis added views R Reviewed date:05/30/2023 12:47:30 PM Interpretation:Suspicious finding Performing Lab: Notes/Report: [facility] [address] [place] [address] Mammography Report Signed Patient: Tonia Hernandez MR#: [id number] 227 : 1945 Acct:[id number] Age/Sex: 77 / F ADM Date: 05/29/23 Loc: BETTYO Attending Dr: John Avina DO Ordering Physician: John Avina DO Results: 4Suspi cious Finding Date of Service: 05/29/23 Follow Up: Biopsy Recommend ed Procedure(s): MM tomosynthesis added views R Accession Number(s): [id number] cc: John Avina DO EXAMINATION: MM DIAGNOSTIC [...] in OV> 05/29/23 1709 DD/ 1515 TD/TT: Auditor Medical Claims: US breast RT limited mamm on ly Reviewed date:05/30/2023 01:03:48 PM Interpretation:Suspicious finding Performing Lab: Notes/Report: [facility] [address] [place] [address] Ultrasound Report Signed Patient: Tonia Hernandez MR#: [id number] 227 : 1945 Acct:[id number] Age/Sex: 77 / F ADM Date: 05/29/23 Loc: HO.MAMMO Attending Dr: John Avina DO Ordering Physician: John Avina DO Date of Service: 05/29/23 Procedure(s): US breast RT limited mamm only Accession Number(s): [id number] cc: John Avina DO EXAMINATION: MM DIAGNOSTIC [...] in OV> 05/29/23 1709 DD/ 1515 TD/TT: Auditor Medical Claims: Pathology Reviewed date:07/04/2023 04:18:17 PM Interpretation:Abnormal Performing Lab:[facility], [address] [place] [phone] Notes/Report: MM tomosynthesis diagnostic RT Reviewed date:07/12/2023 11:59:47 AM Interpretation:Abnormal Performing Lab: Notes/Report: [facility] [address] [place] [address] Mammography Report Signed with Corey Patient: Tonia Hernandez MR#: [id number] 227 : 1945 Acct:[id number] Age/Sex: 77 / F ADM Date: 07/01/23 Loc: MONIQUE Attending Dr: Juliann Tse MD Ordering Physician: Juliann Tse MD Results: 1Negati ve Date of Service: 07/01/23 Follow Up: 1 Year From Orig inal Mammogram Procedure(s): MM tomosynthesis diagnostic RT Accession Number(s): [id number] cc: Juliann Tse MD; John Avina DO [...] targeted area with a 14G spring loaded [employer] core biopsy device. There was real-time confirmation [...] in OV> 07/01/23 1137 DD/ 1108 TD/TT: Auditor Medical Claims: US breast ndl core biopsy RT Reviewed date:07/12/2023 11:59:04 AM Interpretation:Abnormal Performing Lab: Notes/Report: [facility] [address] [place] [address] Ultrasound Report Signed with Corey Patient: Tonia Hernandez MR#: [id number] 227 : 1945 Acct:[id number] Age/Sex: 77 / F ADM Date: 07/01/23 Loc: HO.MAMMO Attending Dr: Juliann Tse MD Ordering Physician: Juliann Tse MD Date of Service: 07/01/23 Procedure(s): US breast ndl core biopsy RT Accession Number(s): [id number] cc: Juliann Tse MD; John Avina DO [...] MD Addendum Signed By: <Electronically signed by Olviier Bains MD in OV> 07/12/23903 Addendum Cosigned [...] targeted area with a 14G spring loaded [employer] core biopsy device. There was real-time confirmation [...] in OV> 07/01/23 1137 DD/ 1108 TD/TT: Auditor Medical Claims: Complete Blood Count Auto Di ff Reviewed date:07/23/2023 01:43:56 PM Interpretation:Abnormal Performing Lab:[facility], [address] [place] [phone] Notes/Report: White Blood Count 7.7 4.8-10.8 X10*3/uL [...] Reviewed date:07/23/2023 02:51:16 PM Interpretation:B Positive Performing Lab:[facility], [address] [place] [phone] Notes/Report: WITNESSED BY ARELIS Results at Issue [...] Cells Reviewed date:07/24/2023 01:10:16 PM Interpretation:Transfused Performing Lab:[facility], [address] [place] [phone] Notes/Report: Red Blood Cells [id number] BP RC Red Blood Cells TRANSFUSED 07/24/23 1018 Red Blood Cells [id number] BP RC Red Blood Cells TRANSFUSED 07/24/23 1252 Complete Blood Count Auto Di ff Reviewed date:08/09/2023 11:50:52 AM Interpretation:Abnormal Performing Lab:[facility], [address] [place] [phone] Notes/Report: White Blood Count 11.6 4.8-10.8 X10*3/uL [...] INR Reviewed date:08/09/2023 11:50:52 AM Interpretation:Abnormal Performing Lab:[address] [address] Notes/Report: Prothrombin Time 13.4 11.1-13.3 SEC INTERNATIONAL [...] Panel Reviewed date:08/09/2023 11:51:59 AM Interpretation:Abnormal Performing Lab:[facility], [address] [place] [phone] Notes/Report: Bilirubin Total 1.6 0.0-1.0 mg/dL Bilirubin Direct 0.5 0.0-0.5 mg/dL Aspartate Amino Transferase 19 5-31 U/L Alanine Aminotransferase 41 0-31 U/L Total Protein 7.0 6.5-8.0 g/dL Albumin Level 3.9 3.5-5.0 g/dL Alkaline Phosphatase 60 39-117 U/L Basic Metabolic Panel Reviewed date:08/09/2023 11:51:59 AM Interpretation:Abnormal Performing Lab:[facility], [address] [place] [phone] Notes/Report: Sodium 144 135-145 mmol/L Potassium 3.4 [...] Estimated Glomerular Filt Rate 36 NOTE: For -Libyan individuals, multiply the result by 1.210. Chronic Kidney Disease: Estimated GFR < 60 mL/min/1.73m2 Severe Kidney Disease: Estimated GFR < 15 mL/min/1.73m2 Glucose Random 147 60-115 mg/dL Calcium 9.2 8.4-10.2 mg/dL Lactic Acid Reviewed date:08/09/2023 11:50:52 AM Interpretation:Normal Performing Lab:[facility], [address] [place] [phone] Notes/Report: Lactic Acid 1.4 0.5-2.0 mmol/L Troponin-I High Sensitivity Reviewed date:08/09/2023 12:41:37 PM Interpretation:Abnormal Performing Lab:[facility], [address] [place] [phone] Notes/Report: Troponin-I High Sensitivity 24.5 <3.5-17.0 ng/L The Live high sensitivity Troponin-I results should be used in conjunction with other diagnostic information such as ECG, clinical observations and information, and patient symptoms to aid in the diagnosis of ND. B Type Natriuretic Peptide Reviewed date:08/09/2023 12:43:19 PM Interpretation:Abnormal Performing Lab:[facility], [address] [place] [phone] Notes/Report: B Type Natriuretic Peptide 1926 <100 pg/mL For those patients who are being treated with Natrecor (nesiritide, recombinant BNP), BNP testing should be performed at least two hours post treatment in order to ensure that only endogenous levels of BNP are detected. Glucose, Whole Blood Reviewed date:08/10/2023 11:22:55 AM Interpretation:Abnormal Performing Lab:[facility], [address] [place] [phone] Notes/Report: Glucose, Whole Blood 116 60-115 mg/dL METER # : [id number] Blood Culture (First) Reviewed date:08/14/2023 01:39:00 PM Interpretation:Negative Performing Lab:[facility], [address] [place] [phone] Notes/Report: Blood Culture (First) No growth after 5 days. Blood Culture (Second) Reviewed date:08/14/2023 02:29:22 PM Interpretation:Negative Performing Lab:[facility], [address] [place] [phone] Notes/Report: Blood Culture (Second) No growth after 5 days. SARS-CoV2/FLU/RSV Reviewed date:08/09/2023 12:45:37 PM Interpretation:Negative Performing Lab:[facility], [address] [place] [phone] Notes/Report: Influenza A PCR NEGATIVE Negative Influenza [...] by authorized laboratories. Testing performed on the [employer] GeneXpert utilizing real-time RT-PCR. All SARS CoV2 and positive influenza A/B results are reported to [facility]. XR chest 2V Reviewed date:08/09/2023 12:46:36 PM Interpretation:Abnormal Performing Lab: Notes/Report: [address] [place] [address] XRay Report Signed Patient: Tonia Hernandez MR#: [id number] : 1945 Acct:[id number] Age/Sex: 77 / F ADM Date: 08/09/23 Loc: HO.ED Attending Dr: Ordering Physician: Narcisa Swift NP Date of Service: 08/09/23 Procedure(s): XR chest 2V Accession Number(s): [id number] cc: John Avina DO; Narcisa Swift NP [...] in OV> 08/09/23 1210 DD/ 1147 TD/TT: Auditor Medical Claims: Troponin-I High Sensitivity Reviewed date:08/10/2023 11:22:55 AM Interpretation:Abnormal Performing Lab:[facility], [address] [place] [phone] Notes/Report: Troponin-I High Sensitivity 31.0 <3.5-17.0 ng/L The Live high sensitivity Troponin-I results should be used in conjunction with other diagnostic information such as ECG, clinical observations and information, and patient symptoms to aid in the diagnosis of ND. Glucose, Whole Blood Reviewed date:08/10/2023 11:22:55 AM Interpretation:Abnormal Performing Lab:[facility], [address] [place] [phone] Notes/Report: Glucose, Whole Blood 215 60-115 mg/dL METER # : [id number] Complete Blood Count no Diff Reviewed date:08/10/2023 11:22:55 AM Interpretation:Abnormal Performing Lab:[facility], [address] [place] [phone] Notes/Report: White Blood Count 8.1 4.8-10.8 X10*3/uL [...] Panel Reviewed date:08/10/2023 11:22:55 AM Interpretation:Abnormal Performing Lab:[facility], [address] [place] [phone] Notes/Report: Sodium 144 135-145 mmol/L Potassium 3.4 [...] Estimated Glomerular Filt Rate 35 NOTE: For -Libyan individuals, multiply the result by 1.210. Chronic Kidney Disease: Estimated GFR < 60 mL/min/1.73m2 Severe Kidney Disease: Estimated GFR < 15 mL/min/1.73m2 Glucose Random 122 60-115 mg/dL Calcium 8.9 8.4-10.2 mg/dL Magnesium Reviewed date:08/10/2023 11:22:55 AM Interpretation:Normal Performing Lab:[facility], [address] [place] [phone] Notes/Report: Magnesium 2.0 1.6-2.6 mg/dL Glucose, Whole Blood Reviewed date:08/10/2023 11:22:55 AM Interpretation:Normal Performing Lab:[facility], [address] [place] [phone] Notes/Report: Glucose, Whole Blood 115 60-115 mg/dL METER # : [id number] Glucose, Whole Blood Reviewed date:08/10/2023 11:31:06 AM Interpretation:Abnormal Performing Lab:[facility], [address] [place] [phone] Notes/Report: Glucose, Whole Blood 183 60-115 mg/dL METER # : [id number] Glucose, Whole Blood Reviewed date:08/10/2023 04:15:52 PM Interpretation:Normal Performing Lab:[facility], [address] [place] [phone] Notes/Report: Glucose, Whole Blood 94 60-115 mg/dL METER # : [id number] Glucose, Whole Blood Reviewed date:08/11/2023 10:10:22 AM Interpretation:Abnormal Performing Lab:[facility], [address] [place] [phone] Notes/Report: Glucose, Whole Blood 196 60-115 mg/dL METER # : [id number] Complete Blood Count Auto Di ff Reviewed date:08/11/2023 10:10:22 AM Interpretation:Abnormal Performing Lab:[facility], [address] [place] [phone] Notes/Report: White Blood Count 6.5 4.8-10.8 X10*3/uL [...] Panel Reviewed date:08/11/2023 10:10:22 AM Interpretation:Abnormal Performing Lab:[facility], [address] [place] [phone] Notes/Report: Sodium 142 135-145 mmol/L Potassium 3.2 [...] Estimated Glomerular Filt Rate 29 NOTE: For -Libyan individuals, multiply the result by 1.210. Chronic Kidney Disease: Estimated GFR < 60 mL/min/1.73m2 Severe Kidney Disease: Estimated GFR < 15 mL/min/1.73m2 Glucose Random 117 60-115 mg/dL Calcium 8.8 8.4-10.2 mg/dL Magnesium Reviewed date:08/11/2023 10:10:22 AM Interpretation:Normal Performing Lab:[facility], [address] [place] [phone] Notes/Report: Magnesium 2.2 1.6-2.6 mg/dL Glucose, Whole Blood Reviewed date:08/11/2023 10:10:22 AM Interpretation:Abnormal Performing Lab:[facility], [address] [place] [phone] Notes/Report: Glucose, Whole Blood 120 60-115 mg/dL METER # : [id number] Glucose, Whole Blood Reviewed date:08/11/2023 04:07:23 PM Interpretation:Abnormal Performing Lab:[facility], [address] [place] [phone] Notes/Report: Glucose, Whole Blood 151 60-115 mg/dL METER # : [id number] Urinalysis and Microscopic Reviewed date:08/15/2023 08:56:05 PM Interpretation:Abnormal Performing Lab:[facility], [address] [place] [phone] Notes/Report: Color Urine Yellow Appearance Urine Cloudy PH 5.5 5.0-9.0 Glucose Urine UA Negative Negative mg/dL Urine Blood Negative Negative Specific [place] - Urine 1.010 1.005-1.025 Urine Protein 30 (1+) Neg-Trace mg/dL Urine Ketones Negative Negative mg/dL Nitrite Urine Positive Negative Leukocyte Esterase Urine Moderate (2+) Negative RBC Urine 0-2 0-2 /HPF WBC Urine >50 0-5 /HPF Squamous Epithelial Cell Urine 11-20 0-2 /HPF Bacteria Urine 4+ None Seen Hyaline Casts Urine 3-5 0-2 /LPF Liver Panel Reviewed date:08/15/2023 08:56:05 PM Interpretation:Abnormal Performing Lab:[facility], [address] [place] [phone] Notes/Report: Bilirubin Total 0.6 0.0-1.0 mg/dL Bilirubin Direct 0.3 0.0-0.5 mg/dL Aspartate Amino Transferase 25 5-31 U/L Alanine Aminotransferase 37 0-31 U/L Total Protein 7.2 6.5-8.0 g/dL Albumin Level 3.9 3.5-5.0 g/dL Alkaline Phosphatase 59 39-117 U/L Basic Metabolic Panel Reviewed date:08/15/2023 08:58:22 PM Interpretation:Abnormal Performing Lab:[facility], [address] [place] [phone] Notes/Report: Sodium 144 135-145 mmol/L Potassium 3.6 3.3-5.1 mmol/L Chloride 106 96-108 mmol/L Carbon Dioxide 29 22-29 mmol/L Anion Gap 13 12-20 Blood Urea Nitrogen 26 9-16 mg/dL Creatinine 1.42 0.5-1.4 mg/dL Estimated Glomerular Filt Rate 36 NOTE: For -Libyan individuals, multiply the result by 1.210. Chronic Kidney Disease: Estimated GFR < 60 mL/min/1.73m2 Severe Kidney Disease: Estimated GFR < 15 mL/min/1.73m2 Glucose Random 174 60-115 mg/dL Calcium 9.1 8.4-10.2 mg/dL TSH reflex Free T4 Reviewed date:08/15/2023 08:56:05 PM Interpretation:Normal Performing Lab:[facility], [address] [place] [phone] Notes/Report: TSH reflex Free T4 3.45 0.32-4.0 uIU/mL Complete Blood Count Auto Di ff Reviewed date:08/15/2023 08:56:05 PM Interpretation:Abnormal Performing Lab:[facility], [address] [place] [phone] Notes/Report: White Blood Count 5.6 4.8-10.8 X10*3/uL [...] Peptide Reviewed date:08/15/2023 08:56:19 PM Interpretation:Abnormal Performing Lab:[facility], [address] [place] [phone] Notes/Report: B Type Natriuretic Peptide 765 <100 pg/mL For those patients who are being treated with Natrecor (nesiritide, recombinant BNP), BNP testing should be performed at least two hours post treatment in order to ensure that only endogenous levels of BNP are detected. Complete Blood Count no Diff Reviewed date:08/21/2023 04:45:20 PM Interpretation:Abnormal Performing Lab:[facility], [address] [place] [phone] Notes/Report: White Blood Count 6.8 4.8-10.8 X10*3/uL [...] Screen Reviewed date:08/21/2023 05:34:02 PM Interpretation:Negative Performing Lab:[facility], [address] [place] [phone] Notes/Report: Witnessed by [facility] Blood Type BP Antibody Screen NEGATIVE XR DEXA axial skeleton Reviewed date:08/31/2023 12:30:01 PM Interpretation:Abnormal Performing Lab: Notes/Report: [address] [place] [address] Mammography Report Signed Patient: Tonia Hernandez MR#: [id number] : 1945 Acct:[id number] Age/Sex: 77 / F ADM Date: 08/29/23 Loc: HO.MAMMO Attending Dr: Juliann Tse MD Ordering Physician: Juliann Tse MD Results: Date of Service: 08/29/23 Follow Up: Procedure(s): XR DEXA axial skeleton Accession Number(s): [id number] cc: Juliann Tse MD; John Avina DO EXAMINATION: BONE DENSITOMETRY CLINICAL INDICATION: Postmenopausal bone loss. COMPARISON: Baseline BD dated 08/06/2013. TECHNIQUE: Using a [employer] DXA System (software version: 13.1) manufactured by [employer], dual-energy x-ray absorptiometry was performed of the [...] in OV> 08/30/23 0941 DD/ 1347 TD/TT: Auditor Medical Claims: MORENA Complete Blood Count Auto Di ff Reviewed date:09/11/2023 06:19:56 PM Interpretation:Abnormal Performing Lab:[facility], [address] [place] [phone] Notes/Report: White Blood Count 5.0 4.8-10.8 X10*3/uL [...] INR Reviewed date:09/11/2023 06:19:56 PM Interpretation:Normal Performing Lab:[address] [address] Notes/Report: Prothrombin Time 12.0 11.1-13.3 SEC INTERNATIONAL [...] Panel Reviewed date:09/11/2023 06:19:56 PM Interpretation:Abnormal Performing Lab:[address] [address] Notes/Report: Sodium 144 135-145 mmol/L Potassium 3.8 3.3-5.1 mmol/L Chloride 111 96-108 mmol/L Carbon Dioxide 22 22-29 mmol/L Anion Gap 15 12-20 Blood Urea Nitrogen 37 9-16 mg/dL Creatinine 1.67 0.5-1.4 mg/dL Estimated Glomerular Filt Rate 30 NOTE: For -Libyan individuals, multiply the result by 1.210. Chronic Kidney Disease: Estimated GFR < 60 mL/min/1.73m2 Severe Kidney Disease: Estimated GFR < 15 mL/min/1.73m2 Glucose Random 167 60-115 mg/dL Calcium 9.4 8.4-10.2 mg/dL Troponin-I High Sensitivity Reviewed date:09/23/2023 09:32:33 AM Interpretation:Abnormal Performing Lab:[address] [address] Notes/Report: Troponin-I High Sensitivity 344.6 <3.5-17.0 ng/L Critical value for test(TROP): Results called to and read back by: ROBYN Person calling: REGINA Date: 09/22/23 Time: 2206 The Ilve high sensitivity Troponin-I results should be used in conjunction with other diagnostic information such as ECG, clinical observations and information, and patient symptoms to aid in the diagnosis of ND. Urine Culture Reviewed date:09/25/2023 09:50:47 AM Interpretation:Positive Performing Lab:[address] [address] Notes/Report: O:KLEPNE Klebsiella pneumoniae Urine Culture Quant Urine Culture > 100,000 cfu/mL Ampicillin >=32 Ceftriaxone <=0.25 Gentamicin <=1 Levofloxacin <=0.12 Nitrofurantoin 128 Trimethoprim/Sulfamethoxa zole <=20 UA ClnCatch+Micro w/rflx Cul t Reviewed date:09/23/2023 09:32:33 AM Interpretation:Abnormal Performing Lab:[address] [address] Notes/Report: [id number] Urine, Clean Catch Color Urine Yellow Appearance Urine Cloudy PH 5.5 5.0-9.0 Glucose Urine UA Negative Negative mg/dL Urine Blood Negative Negative Specific [place] - Urine 1.010 1.005-1.025 Urine Protein 30 (1+) Neg-Trace mg/dL Urine Ketones Negative Negative mg/dL Nitrite Urine Negative Negative Leukocyte Esterase Urine Large (3+) Negative RBC Urine 0-2 0-2 /HPF WBC Urine >50 0-5 /HPF Squamous Epithelial Cell Urine 3-5 0-2 /HPF Bacteria Urine 4+ None Seen Hyaline Casts Urine 6-10 0-2 /LPF Type and Screen Reviewed date:09/23/2023 09:32:33 AM Interpretation:Negative Performing Lab:[address] [address] Notes/Report: Results at Issue Units as of [...] Cells Reviewed date:09/23/2023 09:32:51 AM Interpretation:Transfused Performing Lab:[facility], [address] [place] [phone] Notes/Report: Red Blood Cells [id number] BP RC Red Blood Cells TRANSFUSED 09/22/23 1922 Red Blood Cells [id number] BP RC Red Blood Cells TRANSFUSED 09/23/23 0023 XR chest 2V Reviewed date:09/23/2023 09:34:36 AM Interpretation:Abnormal Performing Lab: Notes/Report: [address] [address] XRay Report Signed Patient: Tonia Hernandez MR#: [id number] : 1945 Acct:[id number] Age/Sex: 78 / F ADM Date: 09/22/23 Loc: .ED Attending Dr: Ordering Physician: Rachael Cleary NP Date of Service: 09/22/23 Procedure(s): XR chest 2V Accession Number(s): [id number] cc: John Avina DO; Rachael Cleary NP [...] in OV> 09/22/23 1703 DD/ 1614 TD/TT: Auditor Medical Claims: BRENDA Complete Blood Count no Diff Reviewed date:09/23/2023 09:32:33 AM Interpretation:Abnormal Performing Lab:[facility], [address] [place] [phone] Notes/Report: White Blood Count 7.8 4.8-10.8 X10*3/uL [...] Panel Reviewed date:09/23/2023 09:32:33 AM Interpretation:Abnormal Performing Lab:[address] [address] Notes/Report: Sodium 142 135-145 mmol/L Potassium 3.8 [...] Estimated Glomerular Filt Rate 15 NOTE: For -Libyan individuals, multiply the result by 1.210. Chronic [...] Blood Reviewed date:09/23/2023 09:32:33 AM Interpretation:Abnormal Performing Lab:[address] [address] Notes/Report: Glucose, Whole Blood 120 60-115 mg/dL METER # : [id number] Glucose, Whole Blood Reviewed date:09/23/2023 07:28:16 PM Interpretation:Abnormal Performing Lab:[facility], [address] [place] [phone] Notes/Report: Glucose, Whole Blood 138 60-115 mg/dL METER # : [id number] Glucose, Whole Blood Reviewed date:09/23/2023 07:29:16 PM Interpretation:Abnormal Performing Lab:[facility], [address] [place] [address] Notes/Report: Glucose, Whole Blood 180 60-115 mg/dL METER # : [id number] Glucose, Whole Blood Reviewed date:09/24/2023 10:33:14 AM Interpretation:Abnormal Performing Lab:[facility], [address] [place] [address] Notes/Report: Glucose, Whole Blood 130 60-115 mg/dL METER # : [id number] Complete Blood Count no Diff Reviewed date:09/24/2023 10:33:14 AM Interpretation:Abnormal Performing Lab:[facility], [address] [place] [phone] Notes/Report: White Blood Count 7.1 4.8-10.8 X10*3/uL [...] g Reviewed date:09/24/2023 10:33:14 AM Interpretation:Abnormal Performing Lab:[facility], [address] [place] [phone] Notes/Report: Sodium 144 135-145 mmol/L Potassium 3.4 [...] Estimated Glomerular Filt Rate 18 NOTE: For -Libyan individuals, multiply the result by 1.210. Chronic Kidney Disease: Estimated GFR < 60 mL/min/1.73m2 Severe Kidney Disease: Estimated GFR < 15 mL/min/1.73m2 Glucose Fasting 111 60-99 mg/dL A fasting glucose from 100-125 mg/dl is considered impaired (pre-diabetes). Calcium 9.3 8.4-10.2 mg/dL Glucose, Whole Blood Reviewed date:09/24/2023 10:33:14 AM Interpretation:Normal Performing Lab:[facility], [address] [place] [phone] Notes/Report: Glucose, Whole Blood 111 60-115 mg/dL METER # : [id number] Glucose, Whole Blood Reviewed date:09/24/2023 12:26:49 PM Interpretation:Abnormal Performing Lab:[facility], [address] [place] [address] Notes/Report: Glucose, Whole Blood 172 60-115 mg/dL METER # : [id number] Complete Blood Count no Diff Reviewed date:09/30/2023 04:55:56 PM Interpretation:Abnormal Performing Lab:[facility], [address] [place] [phone] Notes/Report: White Blood Count 7.0 4.8-10.8 X10*3/uL [...] Panel Reviewed date:09/30/2023 04:56:15 PM Interpretation:Abnormal Performing Lab:[facility], [address] [place] [address] Notes/Report: Sodium 140 135-145 mmol/L Potassium 4.0 3.3-5.1 mmol/L Chloride 104 96-108 mmol/L Carbon Dioxide 28 22-29 mmol/L Anion Gap 12 12-20 Blood Urea Nitrogen 27 9-16 mg/dL Creatinine 1.74 0.5-1.4 mg/dL Estimated Glomerular Filt Rate 28 NOTE: For -Libyan individuals, multiply the result by 1.210. Chronic Kidney Disease: Estimated GFR < 60 mL/min/1.73m2 Severe Kidney Disease: Estimated GFR < 15 mL/min/1.73m2 Glucose Random 221 60-115 mg/dL Calcium 9.9 8.4-10.2 mg/dL Complete Blood Count Auto Di ff Reviewed date:10/30/2023 03:16:20 PM Interpretation:Abnormal Performing Lab:[facility], [address] [place] [phone] Notes/Report: White Blood Count 6.7 4.8-10.8 X10*3/uL [...] Panel Reviewed date:10/30/2023 03:28:23 PM Interpretation:Abnormal Performing Lab:[facility], [address] [place] [address] Notes/Report: Sodium 145 135-145 mmol/L Potassium 4.2 [...] Estimated Glomerular Filt Rate 23 NOTE: For -Libyan individuals, multiply the result by 1.210. Chronic [...] Reviewed date:10/30/2023 04:02:48 PM Interpretation:Normal Performing Lab:[place] [address] [address] Notes/Report: Vitamin D 25-OH Total 48.8 >30 [...] Reviewed date:11/21/2023 01:03:36 PM Interpretation:See Note Performing Lab:[address] [address] Notes/Report: ANEMIA [id number] LEFT ILEUM LLE Interpretation See Note See repor t from NPS in the EMR. Chromosome Anal. Bone Marrow Reviewed date:11/26/2023 09:20:46 AM Interpretation:See note Performing Lab:[facility], [address] [place] [phone] Notes/Report: LEFT ILEUM ANEMIA [id number] Chromosome Anal. Bone Marrow See note See report from NPS in the EMR. Glucose, Whole Blood Reviewed date:11/19/2023 12:31:12 PM Interpretation:Normal Performing Lab:[facility], [address] [place] [phone] Notes/Report: Glucose, Whole Blood 104 60-115 mg/dL METER # : [id number] Pathology Reviewed date:01/31/2024 11:06:51 AM Interpretation:Abnormal Performing Lab:[address] [address] Notes/Report: [employer] Other Ref Reviewed date:11/28/2023 04:16:18 PM Interpretation:See note Performing Lab:[address] [address] Notes/Report: NeoTYPE/NGS NeoComprehensive Myeloid Disorders [employer] Other Ref See Note See re port from [employer] in the EMR. CT biopsy aspirate bone maryellen ow Reviewed date:11/19/2023 02:57:54 PM Interpretation:Successful Performing Lab: Notes/Report: [address] [address] [address] Scan Report Signed Patient: Tonia Hernandez MR#: [id number] 227 : 1945 Acct:[id number] Age/Sex: 78 / F ADM Date: 11/19/23 Loc: [facility] Attending Dr: Juliann Tse MD Ordering Physician: Juliann Tse MD Date of Service: 11/19/23 Procedure(s): CT biopsy asp core bone marrow Accession Number(s): [id number] cc: Juliann Tse MD; John Avina DO History: Anemia Procedures performed: 1. CT-guided bone marrow aspiration and core biopsy sample of ileum Physician: Emily Alrfedo MD Anesthesia: IV moderate sedation with intravenous [...] #11 blade. The 13-gauge needle of the Quipper device was drilled beyond the proximal cortex [...] in OV> 11/19/23 1405 DD/ 1345 TD/TT: Auditor Medical Claims: Complete Blood Count Auto Di ff Reviewed date:11/22/2023 01:13:19 PM Interpretation:Abnormal Performing Lab:[facility], [address] [place] [phone] Notes/Report: White Blood Count 10.4 4.8-10.8 X10*3/uL [...] Panel Reviewed date:11/22/2023 06:50:43 PM Interpretation:Abnormal Performing Lab:[facility], [address] [place] [address] Notes/Report: Sodium 142 135-145 mmol/L Potassium 3.7 3.3-5.1 mmol/L Chloride 106 96-108 mmol/L Carbon Dioxide 27 22-29 mmol/L Anion Gap 13 12-20 Blood Urea Nitrogen 29 9-16 mg/dL Creatinine 1.63 0.5-1.4 mg/dL Estimated Glomerular Filt Rate 31 NOTE: For -Libyan individuals, multiply the result by 1.210. Chronic [...] Screen Reviewed date:11/22/2023 06:50:12 PM Interpretation:Negative Performing Lab:[facility], [address] [place] [address] Notes/Report: Witnessed by KAVIN Results at Issue Units as of 11/22/23 1425 ... Test View Group: Most Recent HGB HCT Results LABORATORY Date Time Test Result Flag Normal Range 11/22/23 1259 HGB 7.4 L 12.0-16.0 g/dl 11/22/23 1259 HCT 21.5 L 37.0-47.0 % Hgb 7-9 gm No Blood Type BP Antibody Screen NEGATIVE Red Blood Cells Reviewed date:11/22/2023 06:50:12 PM Interpretation:Transfused Performing Lab:[facility], [address] [place] [phone] Notes/Report: Red Blood Cells [id number] BP RC Red Blood Cells TRANSFUSED 11/22/23 1424 Complete Blood Count Auto Di ff Reviewed date:12/04/2023 04:06:16 PM Interpretation:Abnormal Performing Lab:[facility], [address] [place] [address] Notes/Report: White Blood Count 6.7 4.8-10.8 X10*3/uL [...] Reviewed date:12/17/2023 09:40:11 AM Interpretation:See note Performing Lab:[facility], [address] [place] [address] Notes/Report: FAUSTINO COMPREHENSIVE - MYELOID DISORDERS [employer] Other Ref See Note See re port from [employer] in the EMR. Complete Blood Count Auto Di ff Reviewed date:12/10/2023 01:59:31 PM Interpretation:Abnormal Performing Lab:[facility], [address] [place] [address] Notes/Report: White Blood Count 5.8 4.8-10.8 X10*3/uL [...] Panel Reviewed date:12/10/2023 02:14:28 PM Interpretation:Abnormal Performing Lab:[facility], [address] [place] [address] Notes/Report: Sodium 145 135-145 mmol/L Potassium 3.8 [...] Estimated Glomerular Filt Rate 28 NOTE: For -Libyan individuals, multiply the result by 1.210. Chronic [...] Screen Reviewed date:12/10/2023 02:27:13 PM Interpretation:Negative Performing Lab:[facility], [address] [place] [phone] Notes/Report: WITNESSED BY ASHER Results at Issue Units as of 12/12/23 1144 ... Test View Group: Most Recent HGB HCT Results No results available. Hgb 7-9 gm No Blood Type BP Antibody Screen NEGATIVE Red Blood Cells Reviewed date:12/12/2023 04:33:13 PM Interpretation:Transfused Performing Lab:[facility], [address] [place] [address] Notes/Report: Red Blood Cells [id number] BP RC Red Blood Cells TRANSFUSED 12/12/23 1144 Complete Blood Count Auto Di ff Reviewed date:12/13/2023 11:58:29 AM Interpretation:Abnormal Performing Lab:[facility], [address] [place] [address] Notes/Report: White Blood Count 9.1 4.8-10.8 X10*3/uL [...] INR Reviewed date:12/13/2023 04:15:42 PM Interpretation:Normal Performing Lab:[facility], [address] [place] [address] Notes/Report: Prothrombin Time 12.8 11.1-13.3 SEC [employer] [...] Time Reviewed date:12/13/2023 04:15:42 PM Interpretation:Normal Performing Lab:[facility], [address] [place] [address] Notes/Report: Partial Thromboplastin Time 30.0 26.0-36.8 SEC For information regarding the monitoring of direct thrombin inhibitors, please refer to Pharmacy. Comprehensive Met. Panel Reviewed date:12/13/2023 12:00:00 PM Interpretation:Abnormal Performing Lab:[address] [address] Notes/Report: Sodium 145 135-145 mmol/L Potassium 3.8 [...] Estimated Glomerular Filt Rate 32 NOTE: For -Libyan individuals, multiply the result by 1.210. Chronic [...] Acid Reviewed date:12/13/2023 04:15:42 PM Interpretation:Normal Performing Lab:[facility], [address] [place] [phone] Notes/Report: Lactic Acid 1.6 0.5-2.0 mmol/L Troponin-I High Sensitivity Reviewed date:12/13/2023 04:15:42 PM Interpretation:Abnormal Performing Lab:[facility], [address] [place] [address] Notes/Report: Troponin-I High Sensitivity 32.7 <3.5-17.0 ng/L The Live high sensitivity Troponin-I results should be used in conjunction with other diagnostic information such as ECG, clinical observations and information, and patient symptoms to aid in the diagnosis of ND. B Type Natriuretic Peptide Reviewed date:12/14/2023 01:25:35 PM Interpretation:Abnormal Performing Lab:[facility], [address] [place] [address] Notes/Report: B Type Natriuretic Peptide 3549 <100 pg/mL For those patients who are being treated with Natrecor (nesiritide, recombinant BNP), BNP testing should be performed at least two hours post treatment in order to ensure that only endogenous levels of BNP are detected. Glucose, Whole Blood Reviewed date:12/14/2023 01:25:35 PM Interpretation:Abnormal Performing Lab:[facility], [address] [place] [address] Notes/Report: Glucose, Whole Blood 220 60-115 mg/dL METER # : [id number] Blood Culture (First) Reviewed date:12/18/2023 03:26:49 PM Interpretation:Negative Performing Lab:[address] [address] Notes/Report: Blood Culture (First) No growth after 5 days. Blood Culture (Second) Reviewed date:12/18/2023 04:31:37 PM Interpretation:Negative Performing Lab:[address] [address] Notes/Report: Blood Culture (Second) No growth after 5 days. SARS-CoV2/FLU/RSV Reviewed date:12/13/2023 12:24:52 PM Interpretation:Negative Performing Lab:[address] [address] Notes/Report: Influenza A PCR NEGATIVE Negative Influenza [...] by authorized laboratories. Testing performed on the [employer] GeneXpert utilizing real-time RT-PCR. All SARS CoV2 and positive influenza A/B results are reported to [facility]. Venous Blood Gases - POC Reviewed date:12/13/2023 04:15:42 PM Interpretation:Abnormal Performing Lab:[address] [address] Notes/Report: VBG pH 7.48 7.32-7.43 METER #: [id number] additional_comment: Cb touchel VBG pCO2 35 METER #: [id number] additional_comment: Cb touchel VBG pO2 94 METER #: [id number] additional_comment: Cb touchel VBG Base Excess 3.2 METER #: [id number] additional_comment: Cb touchel VBG HCO3 26 22-26 mmol/L METER #: [id number] additional_comment: Cb touchel VBG O2 % Saturation 99.0 METER #: [id number] additional_comment: Cb touchel CT angio chest PE protocol Reviewed date:12/14/2023 01:50:22 PM Interpretation:Abnormal Performing Lab: Notes/Report: [address] [address] [address] Scan Report Signed Patient: Tonia Hernandez MR#: [id number] 227 : 1945 Acct:[id number] Age/Sex: 78 / F ADM Date: 12/13/23 Loc: [facility] Attending Dr: Ordering Physician: Beth Hackett MD Date of Service: 12/13/23 Procedure(s): CT angio chest PE protocol Accession Number(s): [id number] cc: John Avina DO; Beth Hackett MD [...] 12/13/23 1605 DD/ 1245 TD/TT: 12/13/23 1410 Auditor Medical Claims: XR chest 2V Reviewed date:12/13/2023 12:26:06 PM Interpretation:Abnormal Performing Lab: Notes/Report: [place] [address] XRay Report Signed Patient: Tonia Hernandez MR#: [id number] 227 : 1945 Acct:[id number] Age/Sex: 78 / F ADM Date: 12/13/23 Loc: .ED Attending Dr: Ordering Physician: Generic ED Physician Date of Service: 12/13/23 Procedure(s): XR chest 2V Accession Number(s): [id number] cc: John Avina DO; Generic ED Physician [...] 12/13/23 1209 DD/ 1000 TD/TT: 12/13/23 1010 Auditor Medical Claims: Troponin-I High Sensitivity Reviewed date:12/14/2023 01:25:35 PM Interpretation:Abnormal Performing Lab:[facility], [address] [place] [phone] Notes/Report: Troponin-I High Sensitivity 39.0 <3.5-17.0 ng/L The Live high sensitivity Troponin-I results should be used in conjunction with other diagnostic information such as ECG, clinical observations and information, and patient symptoms to aid in the diagnosis of ND. Complete Blood Count Auto Di ff Reviewed date:12/14/2023 01:25:35 PM Interpretation:Abnormal Performing Lab:[facility], [address] [place] [address] Notes/Report: White Blood Count 8.5 4.8-10.8 X10*3/uL [...] Panel Reviewed date:12/14/2023 01:25:35 PM Interpretation:Abnormal Performing Lab:[address] [address] Notes/Report: Sodium 144 135-145 mmol/L Potassium 3.7 [...] Estimated Glomerular Filt Rate 34 NOTE: For -Libyan individuals, multiply the result by 1.210. Chronic Kidney Disease: Estimated GFR < 60 mL/min/1.73m2 Severe Kidney Disease: Estimated GFR < 15 mL/min/1.73m2 Glucose Random 136 60-115 mg/dL Calcium 8.9 8.4-10.2 mg/dL Glucose, Whole Blood Reviewed date:12/14/2023 01:25:35 PM Interpretation:Abnormal Performing Lab:[address] [address] Notes/Report: Glucose, Whole Blood 125 60-115 mg/dL METER # : [id number] Glucose, Whole Blood Reviewed date:12/14/2023 01:25:35 PM Interpretation:Abnormal Performing Lab:[facility], [address] [place] [address] Notes/Report: Glucose, Whole Blood 131 60-115 mg/dL METER # : [id number] Glucose, Whole Blood Reviewed date:12/15/2023 03:07:30 PM Interpretation:Abnormal Performing Lab:[facility], [address] [place] [phone] Notes/Report: Glucose, Whole Blood 222 60-115 mg/dL METER # : [id number] Glucose, Whole Blood Reviewed date:12/15/2023 03:07:30 PM Interpretation:Abnormal Performing Lab:[facility], [address] [place] [address] Notes/Report: Glucose, Whole Blood 151 60-115 mg/dL METER # : [id number] Complete Blood Count no Diff Reviewed date:12/15/2023 03:07:47 PM Interpretation:Abnormal Performing Lab:[facility], [address] [place] [address] Notes/Report: White Blood Count 7.1 4.8-10.8 X10*3/uL [...] Panel Reviewed date:12/15/2023 03:07:30 PM Interpretation:Abnormal Performing Lab:[facility], [address] [place] [address] Notes/Report: Sodium 143 135-145 mmol/L Potassium 3.4 [...] Estimated Glomerular Filt Rate 26 NOTE: For -Libyan individuals, multiply the result by 1.210. Chronic Kidney Disease: Estimated GFR < 60 mL/min/1.73m2 Severe Kidney Disease: Estimated GFR < 15 mL/min/1.73m2 Glucose Random 116 60-115 mg/dL Calcium 9.1 8.4-10.2 mg/dL Magnesium Reviewed date:12/15/2023 03:07:30 PM Interpretation:Normal Performing Lab:[address] [address] Notes/Report: Magnesium 2.1 1.6-2.6 mg/dL B Type Natriuretic Peptide Reviewed date:12/15/2023 03:08:01 PM Interpretation:Abnormal Performing Lab:[address] [address] Notes/Report: B Type Natriuretic Peptide 3311 <100 pg/mL For those patients who are being treated with Natrecor (nesiritide, recombinant BNP), BNP testing should be performed at least two hours post treatment in order to ensure that only endogenous levels of BNP are detected. Glucose, Whole Blood Reviewed date:12/15/2023 03:07:30 PM Interpretation:Normal Performing Lab:[address] [address] Notes/Report: Glucose, Whole Blood 109 60-115 mg/dL METER # : [id number] Type and Screen Reviewed date:12/15/2023 03:07:30 PM Interpretation:Negative Performing Lab:[address] [address] Notes/Report: To be recollected. Spec. scanning error. (tens) witnessed by MALU Blood Type BP Antibody Screen NEGATIVE Glucose, Whole Blood Reviewed date:12/15/2023 03:07:30 PM Interpretation:Abnormal Performing Lab:[facility], [address] [place] [address] Notes/Report: Glucose, Whole Blood 144 60-115 mg/dL METER # : [id number] Glucose, Whole Blood Reviewed date:12/15/2023 05:43:33 PM Interpretation:Abnormal Performing Lab:[facility], [address] [place] [address] Notes/Report: Glucose, Whole Blood 172 60-115 mg/dL METER # : [id number] Glucose, Whole Blood Reviewed date:12/15/2023 08:18:43 PM Interpretation:Abnormal Performing Lab:[facility], [address] [place] [address] Notes/Report: Glucose, Whole Blood 205 60-115 mg/dL METER # : [id number] Complete Blood Count no Diff Reviewed date:12/16/2023 01:57:55 PM Interpretation:Abnormal Performing Lab:[facility], [address] [place] [address] Notes/Report: White Blood Count 7.0 4.8-10.8 X10*3/uL [...] Panel Reviewed date:12/16/2023 01:57:55 PM Interpretation:Abnormal Performing Lab:[facility], [address] [place] [address] Notes/Report: Sodium 142 135-145 mmol/L Potassium 3.3 [...] Estimated Glomerular Filt Rate 25 NOTE: For -Libyan individuals, multiply the result by 1.210. Chronic Kidney Disease: Estimated GFR < 60 mL/min/1.73m2 Severe Kidney Disease: Estimated GFR < 15 mL/min/1.73m2 Glucose Random 110 60-115 mg/dL Calcium 8.9 8.4-10.2 mg/dL Magnesium Reviewed date:12/16/2023 01:57:55 PM Interpretation:Normal Performing Lab:[facility], [address] [place] [address] Notes/Report: Magnesium 2.3 1.6-2.6 mg/dL B Type Natriuretic Peptide Reviewed date:12/16/2023 01:57:55 PM Interpretation:Abnormal Performing Lab:[facility], [address] [place] [address] Notes/Report: B Type Natriuretic Peptide 3595 <100 pg/mL For those patients who are being treated with Natrecor (nesiritide, recombinant BNP), BNP testing should be performed at least two hours post treatment in order to ensure that only endogenous levels of BNP are detected. Glucose, Whole Blood Reviewed date:12/16/2023 01:57:55 PM Interpretation:Abnormal Performing Lab:[facility], [address] [place] [address] Notes/Report: Glucose, Whole Blood 116 60-115 mg/dL METER # : [id number] Glucose, Whole Blood Reviewed date:12/16/2023 01:57:55 PM Interpretation:Abnormal Performing Lab:[facility], [address] [place] [address] Notes/Report: Glucose, Whole Blood 210 60-115 mg/dL METER # : [id number] Glucose, Whole Blood Reviewed date:12/16/2023 04:51:03 PM Interpretation:Abnormal Performing Lab:[facility], [address] [place] [address] Notes/Report: Glucose, Whole Blood 242 60-115 mg/dL METER # : [id number] Glucose, Whole Blood Reviewed date:12/16/2023 10:52:45 PM Interpretation:Abnormal Performing Lab:[address] [address] Notes/Report: Glucose, Whole Blood 150 60-115 mg/dL METER # : [id number] Complete Blood Count no Diff Reviewed date:12/17/2023 10:02:19 AM Interpretation:Abnormal Performing Lab:[address] [address] Notes/Report: White Blood Count 9.1 4.8-10.8 X10*3/uL [...] Panel Reviewed date:12/17/2023 09:16:05 AM Interpretation:Abnormal Performing Lab:[facility], [address] [place] [address] Notes/Report: Sodium 142 135-145 mmol/L Potassium 3.6 [...] Estimated Glomerular Filt Rate 24 NOTE: For -Libyan individuals, multiply the result by 1.210. Chronic Kidney Disease: Estimated GFR < 60 mL/min/1.73m2 Severe Kidney Disease: Estimated GFR < 15 mL/min/1.73m2 Glucose Random 130 60-115 mg/dL Calcium 9.0 8.4-10.2 mg/dL Glucose, Whole Blood Reviewed date:12/17/2023 09:15:22 AM Interpretation:Abnormal Performing Lab:[facility], [address] [place] [address] Notes/Report: Glucose, Whole Blood 146 60-115 mg/dL METER # : [id number] Glucose, Whole Blood Reviewed date:12/17/2023 11:28:41 AM Interpretation:Abnormal Performing Lab:[facility], [address] [place] [address] Notes/Report: Glucose, Whole Blood 144 60-115 mg/dL METER # : [id number] Glucose, Whole Blood Reviewed date:12/17/2023 04:25:49 PM Interpretation:Abnormal Performing Lab:[facility], [address] [place] [address] Notes/Report: Glucose, Whole Blood 202 60-115 mg/dL METER # : [id number] Glucose, Whole Blood Reviewed date:12/17/2023 10:28:13 PM Interpretation:Abnormal Performing Lab:[facility], [address] [place] [address] Notes/Report: Glucose, Whole Blood 179 60-115 mg/dL METER # : [id number] Complete Blood Count no Diff Reviewed date:12/18/2023 09:42:44 AM Interpretation:Abnormal Performing Lab:[address] [address] Notes/Report: White Blood Count 6.1 4.8-10.8 X10*3/uL [...] Panel Reviewed date:12/18/2023 09:42:44 AM Interpretation:Abnormal Performing Lab:[address] [address] Notes/Report: Sodium 145 135-145 mmol/L Potassium 3.2 [...] Estimated Glomerular Filt Rate 28 NOTE: For -Libyan individuals, multiply the result by 1.210. Chronic Kidney Disease: Estimated GFR < 60 mL/min/1.73m2 Severe Kidney Disease: Estimated GFR < 15 mL/min/1.73m2 Glucose Random 102 60-115 mg/dL Calcium 8.8 8.4-10.2 mg/dL Magnesium Reviewed date:12/18/2023 09:42:44 AM Interpretation:Normal Performing Lab:[facility], [address] [place] [address] Notes/Report: Magnesium 2.3 1.6-2.6 mg/dL Glucose, Whole Blood Reviewed date:12/18/2023 09:42:44 AM Interpretation:Normal Performing Lab:[facility], [address] [place] [address] Notes/Report: Glucose, Whole Blood 110 60-115 mg/dL METER # : [id number] Type and Screen Reviewed date:12/18/2023 09:47:53 AM Interpretation:Negative Performing Lab:[facility], [address] [place] [address] Notes/Report: Results at Issue Units as of [...] Cells Reviewed date:12/18/2023 01:30:07 PM Interpretation:Transfused Performing Lab:[facility], [address] [place] [address] Notes/Report: Red Blood Cells [id number] BN RC Red Blood Cells TRANSFUSED 12/18/23 1249 Glucose, Whole Blood Reviewed date:12/18/2023 11:21:56 AM Interpretation:Abnormal Performing Lab:[address] [address] Notes/Report: Glucose, Whole Blood 270 60-115 mg/dL METER # : [id number] Glucose, Whole Blood Reviewed date:12/18/2023 04:31:16 PM Interpretation:Abnormal Performing Lab:[address] [address] Notes/Report: Glucose, Whole Blood 146 60-115 mg/dL METER # : [id number] Glucose, Whole Blood Reviewed date:12/19/2023 04:33:26 PM Interpretation:Abnormal Performing Lab:[address] [address] Notes/Report: Glucose, Whole Blood 184 60-115 mg/dL METER # : [id number] Complete Blood Count no Diff Reviewed date:12/19/2023 04:33:26 PM Interpretation:Abnormal Performing Lab:[address] [address] Notes/Report: White Blood Count 7.3 4.8-10.8 X10*3/uL [...] date:12/19/2023 04:33:26 PM Interpretation:Abnormal Performing Lab:[facility] [address] [address] Notes/Report: Sodium 144 135-145 mmol/L Potassium 3.2 [...] Estimated Glomerular Filt Rate 24 NOTE: For -Libyan individuals, multiply the result by 1.210. Chronic Kidney Disease: Estimated GFR < 60 mL/min/1.73m2 Severe Kidney Disease: Estimated GFR < 15 mL/min/1.73m2 Glucose Random 152 60-115 mg/dL Calcium 9.8 8.4-10.2 mg/dL Magnesium Reviewed date:12/19/2023 04:33:26 PM Interpretation:Normal Performing Lab:[address] [address] Notes/Report: Magnesium 2.2 1.6-2.6 mg/dL Vitamin B12 and Folate Reviewed date:12/19/2023 04:33:26 PM Interpretation:Normal Performing Lab:[address] [address] Notes/Report: Vitamin B12 > 2000 200-900 pg/mL NORMAL 200-900 PG/ML INDETERMINATE 160-199 PG/ML DEFICIENT < 160 PG/ML Folate 17.5 > or = 4.0 ng/mL Reference Values: > or = 4.0 ng/mL < 4.0 ng/mL suggests folate deficiency Methotrexate, aminopterin and folinic acid (leucovorin) are chemotherapeutic agents whose molecular structures are similar to folate; therefore, the [employer] folate assay cannot be used for patients using these drugs. Glucose, Whole Blood Reviewed date:12/19/2023 04:33:26 PM Interpretation:Abnormal Performing Lab:[address] [address] Notes/Report: Glucose, Whole Blood 138 60-115 mg/dL METER # : [id number] Glucose, Whole Blood Reviewed date:12/19/2023 04:33:26 PM Interpretation:Abnormal Performing Lab:[facility], [address] [place] [phone] Notes/Report: Glucose, Whole Blood 165 60-115 mg/dL METER # : [id number] Glucose, Whole Blood Reviewed date:12/19/2023 04:33:26 PM Interpretation:Abnormal Performing Lab:[facility], [address] [place] [phone] Notes/Report: Glucose, Whole Blood 260 60-115 mg/dL METER # : [id number] Glucose, Whole Blood Reviewed date:12/19/2023 09:52:44 PM Interpretation:Abnormal Performing Lab:[facility], [address] [place] [phone] Notes/Report: Glucose, Whole Blood 151 60-115 mg/dL METER # : [id number] Basic Metabolic Panel Reviewed date:12/20/2023 09:04:56 AM Interpretation:Abnormal Performing Lab:[facility], [address] [place] [phone] Notes/Report: Sodium 141 135-145 mmol/L Potassium 3.5 [...] Estimated Glomerular Filt Rate 21 NOTE: For -Libyan individuals, multiply the result by 1.210. Chronic Kidney Disease: Estimated GFR < 60 mL/min/1.73m2 Severe Kidney Disease: Estimated GFR < 15 mL/min/1.73m2 Glucose Random 161 60-115 mg/dL Calcium 10.4 8.4-10.2 mg/dL Magnesium Reviewed date:12/20/2023 09:04:56 AM Interpretation:Normal Performing Lab:[facility], [address] [place] [phone] Notes/Report: Magnesium 2.6 1.6-2.6 mg/dL B Type Natriuretic Peptide Reviewed date:12/20/2023 09:04:56 AM Interpretation:Abnormal Performing Lab:[facility], [address] [place] [phone] Notes/Report: B Type Natriuretic Peptide 1290 <100 pg/mL For those patients who are being treated with Natrecor (nesiritide, recombinant BNP), BNP testing should be performed at least two hours post treatment in order to ensure that only endogenous levels of BNP are detected. Glucose, Whole Blood Reviewed date:12/20/2023 09:04:56 AM Interpretation:Abnormal Performing Lab:[facility], [address] [place] [phone] Notes/Report: Glucose, Whole Blood 159 60-115 mg/dL METER # : [id number] Glucose, Whole Blood Reviewed date:12/20/2023 10:58:56 AM Interpretation:Abnormal Performing Lab:[facility], [address] [place] [phone] Notes/Report: Glucose, Whole Blood 298 60-115 mg/dL METER # : [id number] Glucose, Whole Blood Reviewed date:12/20/2023 04:34:24 PM Interpretation:Abnormal Performing Lab:[facility], [address] [place] [phone] Notes/Report: Glucose, Whole Blood 304 60-115 mg/dL METER # : [id number] Glucose, Whole Blood Reviewed date:12/21/2023 10:03:58 AM Interpretation:Abnormal Performing Lab:[facility], [address] [place] [phone] Notes/Report: Glucose, Whole Blood 130 60-115 mg/dL METER # : [id number] Hold Lav - Possible Hematolo gy Reviewed date:12/21/2023 10:04:37 AM Interpretation:Hold Performing Lab:[facility], [address] [place] [phone] Notes/Report: Hold Lav - Possible Hematology SEE NOTE Specimen will be held untested for 8 hours. Call Hematology if testing is desired. Basic Metabolic Panel Reviewed date:12/21/2023 10:03:58 AM Interpretation:Abnormal Performing Lab:[facility], [address] [place] [phone] Notes/Report: Sodium 139 135-145 mmol/L Potassium 3.9 [...] Estimated Glomerular Filt Rate 19 NOTE: For -Libyan individuals, multiply the result by 1.210. Chronic Kidney Disease: Estimated GFR < 60 mL/min/1.73m2 Severe Kidney Disease: Estimated GFR < 15 mL/min/1.73m2 Glucose Random 192 60-115 mg/dL Calcium 9.9 8.4-10.2 mg/dL Glucose, Whole Blood Reviewed date:12/21/2023 10:03:58 AM Interpretation:Abnormal Performing Lab:[facility], [address] [place] [address] Notes/Report: Glucose, Whole Blood 170 60-115 mg/dL METER # : [id number] Arterial Blood Gases - POC Reviewed date:12/21/2023 10:03:58 AM Interpretation:Abnormal Performing Lab:[facility], [address] [place] [phone] Notes/Report: ABG pH 7.48 7.35-7.45 METER #: [id number] additional_comment: Payam wan ctrbb byunj ABG pCO2 38 32-45 mmHg METER #: [id number] additional_comment: Payam womatildetaashley ctrbb byunj ABG pO2 58 83-108 mmHg METER #: [id number] additional_comment: Payam whitaker ABG Base Excess 5.2 METER #: [id number] additional_comment: Payam whitaker ABG HCO3 28 22-26 mmol/L METER #: [id number] additional_comment: Payam whitaker ABG O2 % Saturation 87.0 METER #: [id number] additional_comment: Payam whitaker Glucose, Whole Blood Reviewed date:12/22/2023 09:28:28 AM Interpretation:Abnormal Performing Lab:[facility], [address] [place] [phone] Notes/Report: Glucose, Whole Blood 233 60-115 mg/dL METER # : [id number] Comprehensive Met. Panel Reviewed date:12/24/2023 05:12:42 PM Interpretation:Abnormal Performing Lab:[facility], [address] [place] [phone] Notes/Report: Sodium 138 135-145 mmol/L Potassium 4.3 3.3-5.1 mmol/L Slight Hemoly sis Chloride 98 96-108 mmol/L Carbon Dioxide 25 22-29 mmol/L Anion Gap 19 12-20 Blood Urea Nitrogen 76 9-16 mg/dL Creatinine 3.03 0.5-1.4 mg/dL Estimated Glomerular Filt Rate 15 NOTE: For -Libyan individuals, multiply the result by 1.210. Chronic [...] Peptide Reviewed date:12/24/2023 04:54:23 PM Interpretation:Abnormal Performing Lab:[facility], [address] [place] [phone] Notes/Report: B Type Natriuretic Peptide 325 <100 pg/mL For those patients who are being treated with Natrecor (nesiritide, recombinant BNP), BNP testing should be performed at least two hours post treatment in order to ensure that only endogenous levels of BNP are detected. Lipid Panel Reviewed date:12/24/2023 05:12:42 PM Interpretation:Abnormal Performing Lab:[address] [address] Notes/Report: Triglycerides 154 <150 mg/dL Desirable Triglyceride: [...] Panel Reviewed date:12/30/2023 02:36:23 PM Interpretation:Abnormal Performing Lab:[address] [address] Notes/Report: Sodium 142 135-145 mmol/L Potassium 4.5 3.3-5.1 mmol/L Chloride 101 96-108 mmol/L Carbon Dioxide 28 22-29 mmol/L Anion Gap 18 12-20 Blood Urea Nitrogen 54 9-16 mg/dL Creatinine 2.44 0.5-1.4 mg/dL Estimated Glomerular Filt Rate 19 NOTE: For -Libyan individuals, multiply the result by 1.210. Chronic Kidney Disease: Estimated GFR < 60 mL/min/1.73m2 Severe Kidney Disease: Estimated GFR < 15 mL/min/1.73m2 Glucose Random 151 60-115 mg/dL Calcium 10.6 8.4-10.2 mg/dL B Type Natriuretic Peptide Reviewed date:12/30/2023 02:24:35 PM Interpretation:Abnormal Performing Lab:[facility], [address] [place] [phone] Notes/Report: B Type Natriuretic Peptide 538 <100 pg/mL For those patients who are being treated with Natrecor (nesiritide, recombinant BNP), BNP testing should be performed at least two hours post treatment in order to ensure that only endogenous levels of BNP are detected. Complete Blood Count Auto Di ff Reviewed date:12/31/2023 02:25:25 PM Interpretation:Abnormal Performing Lab:[facility], [address] [place] [phone] Notes/Report: White Blood Count 7.9 4.8-10.8 X10*3/uL [...] Screen Reviewed date:12/31/2023 02:56:59 PM Interpretation:Negative Performing Lab:[facility], [address] [place] [address] Notes/Report: Witnessed by MIRIR Blood Type BP Antibody Screen NEGATIVE Complete Blood Count Auto Di ff Reviewed date:01/21/2024 01:59:16 PM Interpretation:Abnormal Performing Lab:[facility], [address] [place] [address] Notes/Report: White Blood Count 6.1 4.8-10.8 X10*3/uL [...] ff Reviewed date:01/29/2024 02:11:27 PM Interpretation:Abnormal Performing Lab:[address] [address] Notes/Report: White Blood Count 5.4 4.8-10.8 X10*3/uL [...] Panel Reviewed date:01/29/2024 03:05:32 PM Interpretation:Abnormal Performing Lab:[facility], [address] [place] [phone] Notes/Report: Sodium 145 135-145 mmol/L Potassium 3.7 3.3-5.1 mmol/L Chloride 110 96-108 mmol/L Carbon Dioxide 27 22-29 mmol/L Anion Gap 12 12-20 Blood Urea Nitrogen 27 9-16 mg/dL Creatinine 1.65 0.5-1.4 mg/dL Estimated Glomerular Filt Rate 30 NOTE: For -Libyan individuals, multiply the result by 1.210. Chronic Kidney Disease: Estimated GFR < 60 mL/min/1.73m2 Severe Kidney Disease: Estimated GFR < 15 mL/min/1.73m2 Glucose Random 114 60-115 mg/dL Calcium 9.2 8.4-10.2 mg/dL B Type Natriuretic Peptide Reviewed date:01/29/2024 03:01:00 PM Interpretation:Abnormal Performing Lab:[facility], [address] [place] [phone] Notes/Report: B Type Natriuretic Peptide 1518 <100 pg/mL For those patients who are being treated with Natrecor (nesiritide, recombinant BNP), BNP testing should be performed at least two hours post treatment in order to ensure that only endogenous levels of BNP are detected. Complete Blood Count Auto Di ff Reviewed date:02/11/2024 02:28:10 PM Interpretation:Abnormal Performing Lab:[facility], [address] [place] [phone] Notes/Report: White Blood Count 6.5 4.8-10.8 X10*3/uL [...] Panel Reviewed date:02/11/2024 03:31:41 PM Interpretation:Abnormal Performing Lab:[facility], [address] [place] [phone] Notes/Report: Sodium 143 135-145 mmol/L Potassium 4.0 [...] Estimated Glomerular Filt Rate 26 NOTE: For -Libyan individuals, multiply the result by 1.210. Chronic [...] Screen Reviewed date:02/11/2024 03:31:41 PM Interpretation:Positive Performing Lab:[facility], [address] [place] [phone] Notes/Report: WITNESSED BY MIRIR Results at Issue Units as of 02/13/24 1026 ... Test View Group: Most Recent HGB HCT Results No results available. Hgb 7-9 gm No Blood Type BP Antibody Screen POSITIVE Red Blood Cells Reviewed date:02/13/2024 12:28:30 PM Interpretation:Transfused Performing Lab:[facility], [address] [place] [phone] Notes/Report: Red Blood Cells [id number] BP RC Red Blood Cells TRANSFUSED 02/13/24 1025 Antibody Identification Reviewed date:02/11/2024 04:06:27 PM Interpretation:Negative Performing Lab:[facility], [address] [place] [phone] Notes/Report: Antibody Identification NEG Complete Blood Count Auto Di ff Reviewed date:03/04/2024 03:31:03 PM Interpretation:Abnormal Performing Lab:[facility], [address] [place] [phone] Notes/Report: White Blood Count 6.5 4.8-10.8 X10*3/uL [...] Panel Reviewed date:03/04/2024 03:31:38 PM Interpretation:Abnormal Performing Lab:[facility], [address] [place] [phone] Notes/Report: Sodium 142 135-145 mmol/L Potassium 4.3 [...] Screen Reviewed date:03/04/2024 05:19:32 PM Interpretation:Negative Performing Lab:[facility], [address] [place] [phone] Notes/Report: Witnessed by TANESHA Blood Type BP Antibody Screen NEGATIVE Complete Blood Count Auto Di ff Reviewed date:03/25/2024 03:15:42 PM Interpretation:Abnormal Performing Lab:[facility], [address] [place] [phone] Notes/Report: White Blood Count 5.9 4.8-10.8 X10*3/uL [...] Screen Reviewed date:03/25/2024 03:47:47 PM Interpretation:Negative Performing Lab:[facility], [address] [place] [phone] Notes/Report: Witnessed by LATHANE Blood Type BP Antibody Screen NEGATIVE Complete Blood Count Auto Di ff Reviewed date:04/13/2024 02:43:26 PM Interpretation:Abnormal Performing Lab:[facility], [address] [place] [phone] Notes/Report: White Blood Count 5.9 4.8-10.8 X10*3/uL Red Blood Count 2.24 4.20-5.50 X10*6/uL Hemoglobin 8.1 12.0-16.0 g/dl Hematocrit 23.9 37.0-47.0 % Mean Corpuscular Volume 106.7 80.0-98.0 fL Mean Corpuscular Hemoglobin 36.2 27.0-33.0 pg Mean Corpuscular HGB Conc 33.9 31.0-35.0 g/dl Red Cell Distribution Width 13.3 11.0-16.0 % Platelet Count 156 160-400 X10*3/uL Mean Platelet Volume 9.4 9.4-12.3 fL Neutrophils Percent Auto 69.3 45-73 % Imm Gran Pct Auto 0.5 0.0-0.4 % Lymphocytes Percent Auto 16.3 20-40 % Monocytes Percent Auto 10.7 2-11 % Eosinophils Percent Auto 2.5 0-4 % Basophils Percent Auto 0.7 0-2 % NRBC Pct Auto 0.0 0.0-0.2 /100WBC Neutrophils Absolute Auto 4.1 2.0-8.3 x10*3/u L Imm Gran Abs Auto 0.03 0.00-0.03 X10*3/uL Lymphocytes Absolute Auto 1.0 1.2-4.9 X10*3/u L Monocytes Absolute Auto 0.6 0.1-1.2 X10*3/uL Eosinophils Absolute Auto 0.2 0.0-0.4 X10*3/u L Basophils Absolute Auto 0.0 0.0-0.2 X10*3/uL NRBC Abs Auto 0.000 0.0-0.012 X10*3/uL Complete Blood Count Man Dif Reviewed date:04/13/2024 02:43:26 PM Interpretation:Abnormal Performing Lab:[facility], [address] [place] [phone] Notes/Report: Neutrophils Percent Manual 72 45-73 % Band Neutrophils Percent 0 3-5 % Lymphocytes Percent Manual 17 20-40 % Monocytes Percent Manual 4 2-11 % Eosinophils Percent Manual 4 0-4 % Basophils Percent Manual 3 0-2 % Neutrophils Absolute Manual 4.2 2.0-8.3 X10*3/uL Lymphocytes Absolute Manual 1.0 1.2-4.9 X10*3/uL Monocytes Absolute Manual 0.2 0.1-1.2 X10*3/u L Eosinophils Absolute Manual 0.2 0.0-0.4 X10*3/uL Basophils Abs Manual 0.2 0.0-0.2 X10*3/uL Platelet Estimate SLIGHTLY DECREASED NORMAL Platelet Morphology Comment NORM RBC Morphology NOTED Hypochromasia 1+ (5-14) Macrocytosis 2+ (15-30) Comprehensive Met. Panel Reviewed date:04/13/2024 02:43:47 PM Interpretation:Abnormal Performing Lab:[address] [phone] Notes/Report: Sodium 143 135-145 mmol/L Potassium 3.5 3.3-5.1 mmol/L Chloride 103 96-108 mmol/L Carbon Dioxide 30 22-29 mmol/L Anion Gap 14 12-20 Blood Urea Nitrogen 47 9-16 mg/dL Creatinine 2.08 0.5-1.4 mg/dL Creatinine Clr Calc Pharmacy 18.7 Provided height and weight: 154.94 cm, 59.6 kg. eGFR (calculated from the MDRD study equation) and eCrCl (calculated from the Cockcroft-Gault equation) are based on different parameters and may not yield comparable results. If eCrCl result is absurd, please check patient's height/weight. Estimated Glomerular Filt Rate 23 Chronic Kidney Disease: Estimated GFR < 60 mL/min/1.73m2 Severe Kidney Disease: Estimated GFR < 15 mL/min/1.73m2 Glucose Random 151 60-115 mg/dL Calcium 8.8 8.4-10.2 mg/dL Bilirubin Total 0.7 0.0-1.0 mg/dL Aspartate Amino Transferase 151 5-31 U/L Alanine Aminotransferase 232 0-31 U/L Total Protein 7.3 6.5-8.0 g/dL Albumin Level 4.2 3.5-5.0 g/dL Alkaline Phosphatase 85 39-117 U/L Type and Screen Reviewed date:04/13/2024 02:43:26 PM Interpretation:Negative Performing Lab:[address] [phone] Notes/Report: Blood Type BP Antibody Screen NEGATIVE Complete Blood Count Auto Di ff Reviewed date:04/20/2024 10:12:41 AM Interpretation:Abnormal Performing Lab:[address] [address] Notes/Report: White Blood Count 4.9 4.8-10.8 X10*3/uL Red Blood Count 2.13 4.20-5.50 X10*6/uL Hemoglobin 7.8 12.0-16.0 g/dl Hematocrit 23.1 37.0-47.0 % Mean Corpuscular Volume 108.5 80.0-98.0 fL Mean Corpuscular Hemoglobin 36.6 27.0-33.0 pg Mean Corpuscular HGB Conc 33.8 31.0-35.0 g/dl Red Cell Distribution Width 13.4 11.0-16.0 % Platelet Count 148 160-400 X10*3/uL Mean Platelet Volume 9.4 9.4-12.3 fL Neutrophils Percent Auto 65.3 45-73 % Imm Gran Pct Auto 0.4 0.0-0.4 % Lymphocytes Percent Auto 20.4 20-40 % Monocytes Percent Auto 10.2 2-11 % Eosinophils Percent Auto 3.3 0-4 % Basophils Percent Auto 0.4 0-2 % NRBC Pct Auto 0.0 0.0-0.2 /100WBC Neutrophils Absolute Auto 3.2 2.0-8.3 x10*3/u L Imm Gran Abs Auto 0.02 0.00-0.03 X10*3/uL Lymphocytes Absolute Auto 1.0 1.2-4.9 X10*3/u L Monocytes Absolute Auto 0.5 0.1-1.2 X10*3/uL Eosinophils Absolute Auto 0.2 0.0-0.4 X10*3/u L Basophils Absolute Auto 0.0 0.0-0.2 X10*3/uL NRBC Abs Auto 0.000 0.0-0.012 X10*3/uL Comprehensive Met. Panel Reviewed date:04/20/2024 10:12:09 AM Interpretation:Abnormal Performing Lab:[facility], [address] [place] [phone] Notes/Report: Sodium 144 135-145 mmol/L Potassium 3.9 3.3-5.1 mmol/L Chloride 106 96-108 mmol/L Carbon Dioxide 28 22-29 mmol/L Anion Gap 14 12-20 Blood Urea Nitrogen 45 9-16 mg/dL Creatinine 2.06 0.5-1.4 mg/dL Creatinine Clr Calc Pharmacy 19.1 Provided height and weight: 154.94 cm, 60.8 kg. eGFR (calculated from the MDRD study equation) and eCrCl (calculated from the Cockcroft-Gault equation) are based on different parameters and may not yield comparable results. If eCrCl result is absurd, please check patient's height/weight. Estimated Glomerular Filt Rate 23 Chronic Kidney Disease: Estimated GFR < 60 mL/min/1.73m2 Severe Kidney Disease: Estimated GFR < 15 mL/min/1.73m2 Glucose Random 124 60-115 mg/dL Calcium 8.7 8.4-10.2 mg/dL Bilirubin Total 0.7 0.0-1.0 mg/dL Aspartate Amino Transferase 113 5-31 U/L Alanine Aminotransferase 196 0-31 U/L Total Protein 7.1 6.5-8.0 g/dL Albumin Level 4.0 3.5-5.0 g/dL Alkaline Phosphatase 88 39-117 U/L Type and Screen Reviewed date:04/20/2024 11:44:28 AM Interpretation:Negative Performing Lab:[facility], [address] [place] [phone] Notes/Report: WITNESSED BY MIRIR Results at Issue Units as of 04/20/24 1111 ... Test View Group: Most Recent HGB HCT Results LABORATORY Date Time Test Result Flag Normal Range 04/20/2418 HGB 7.8 L 12.0-16.0 g/dl 04/20/24 0918 HCT 23.1 L 37.0-47.0 % Hgb 7-9 gm No Blood Type BP Antibody Screen NEGATIVE Red Blood Cells Reviewed date:04/20/2024 11:45:53 AM Interpretation:Transfused Performing Lab:[facility], [address] [place] [phone] Notes/Report: Red Blood Cells [id number] BP RC Red Blood Cells TRANSFUSED 04/20/24 1110 REASON FOR REFERRAL Reason Impaired renal funct ion Diagnosis 1 Disorder of kidney a nd ureter, unspecified (N28.9) Referral Organization John Martinez FACP Referring Provider First Name John Referring Provider Last Name Fabrice Referring Provider Speciality Internal M edicine Referred Provider Mejia Soler Referred Provider Specialty Nephrology General Notes Rema Chapman 4 02:43:38 PM EDT > Referral faxed prior to scheduling Referral Priority Routine Referral Appointment Date 12/19/2023 Reason Neck pain Diagnosis 1 Neck pain (M54.2) Referral Organization John Martinez FACP Referring Provider First Name John Referring Provider Last Name Fabrice Referring Provider Speciality Internal M edicine Referred Provider Randolph Larios Referred Provider Specialty Physical Med icine and Rehabilitation General Notes Page,Rema 4 10:07:38 AM EDT > Referral faxed prior to scheduling. Referral Priority Routine Referral Appointment Date 12/10/2023 Reason Right lower leg sore Diagnosis 1 Wound of right lower extremity, subsequent encounter (S81.801D) Referral Organization John Stephenson O, FACP Referring Provider First Name John Referring Provider Last Name Fabrice Referring Provider Speciality Internal M edicine Referred Provider C Wound Care, Clin ic Referred Provider Specialty Hyperbaric M edicine General Notes Page,Rema 4 10:36:29 AM EDT > Referral faxed and patient is aware they will contact her., Vivi Gupta 02/14/2024 09:50:16 AM EDT > patient anxious to be scheduled at the clinic. [facility] for clinic to call this office. 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) Active confirmed 62110168 Problem Postoperative hypothyroidism (E89.0) Active confirmed 51101702 Problem Constipation, unspecified constipation type (K59.00) Active confirmed Constipation (84754597) Problem Hyperglycemia (R73.9) Active confirmed 06865140 Problem Renal insufficiency (N28.9) Active confirmed 528144931 Problem Iron deficiency anemia due to chronic blood loss (D50.0) Active confirmed 652949591 Problem Type 2 diabetes mellitus with other diabetic kidney complication (E11.29) Active confirmed 27130434 Problem Cataract of left eye, unspecified cataract type (H26.9) Active confirmed 353440600 Problem Loss of balance (R26.89) Active confirmed 925757727 Problem Pessary maintenance (Z46.89) Active confirmed 610765810 Problem Malignant neoplasm of unspecified site of right female breast (C50.911) Active confirmed 437983922 Problem Estrogen receptor positive status [ER+] (Z17.0) Active confirmed 683437263 Problem Paresthesia of skin (R20.2) Active confirmed 45714121 Problem Hypoxemia (R09.02) Active confirmed Hyp oxemia (741585734) VITAL SIGNS Blood pressure diastolic 60 mm Hg 01/15/2024 Height 59.25 in 02/10/2024 Blood pressure systolic 104 mm Hg 01/15/2024 Weight 129 lbs 01/15/2024 BMI 25.83 kg/m2 01/15/2024 Encounters Encounter Location Date Provider Diagnosis John Avina DO, [facility] [address], [place] [phone] 07/10/2023 John Avina Type 2 diabetes mellitus with other diabetic kidney complication E11.29 ; Chronic systolic congestive heart failure I50.22 ; 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 I25.10 ; Postoperative hypothyroidism E89.0 ; Idiopathic gout involving toe of left foot, unspecified chronicity M10.072 ; Iron deficiency anemia due to chronic blood loss D50.0 ; Malignant neoplasm of unspecified site of right female breast C50.911 and Estrogen receptor positive status [ER+] Z17.0 John Avina DO, [facility] [address] [place] [phone] 01/07/2024 John Avina DO, [facility] [address], [place] [phone] 09/17/2023 John Avina Coronary artery dise ase involving iliamna coronary artery of iliamna heart without angina pectoris I25.10 ; Chronic systolic congestive heart failure I50.22 ; Postoperative hypothyroidism E89.0 ; Idiopathic gout involving toe of left foot, unspecified chronicity M10.072 ; Type 2 diabetes mellitus with other diabetic kidney complication E11.29 and Iron deficiency anemia due to chronic blood loss D50.0 John Avina DO, [facility] [address], [place] [id number] 11/19/2023 John Avina DO, [facility] [address], [place] [id number] 10/01/2023 John Avina Coronary artery dise ase involving iliamna coronary artery of iliamna heart without angina pectoris I25.10 ; Chronic systolic congestive heart failure I50.22 ; Type 2 diabetes mellitus with other diabetic kidney complication E11.29 ; Iron deficiency anemia due to chronic blood loss D50.0 ; Postoperative hypothyroidism E89.0 and Idiopathic gout involving toe of left foot, unspecified chronicity M10.072 John Avina DO, [facility] [address], [place] [id number] 10/29/2023 John Avina Coronary artery dise ase involving iliamna coronary artery of iliamna heart without angina pectoris I25.10 ; Chronic systolic congestive heart failure I50.22 ; Postoperative hypothyroidism E89.0 ; Type 2 diabetes mellitus with other diabetic kidney complication E11.29 ; Iron deficiency anemia due to chronic blood loss D50.0 and Idiopathic gout involving toe of left foot, unspecified chronicity M10.072 John Avina DO, [facility] [address], [place] [id number] 01/15/2024 John Avina Chronic systolic congestive heart failure I50.22 ; 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 I25.10 ; Idiopathic gout involving toe of left foot, unspecified chronicity M10.072 ; Postoperative hypothyroidism E89.0 ; Renal insufficiency N28.9 ; Type 2 diabetes mellitus with other diabetic kidney complication E11.29 ; Malignant neoplasm of unspecified site of right female breast C50.911 and Iron deficiency anemia due to chronic blood loss D50.0 John Avina DO, [facility] [address], [place] [id number] 05/21/2023 John Avina DO, [facility] [address], [place] [id number] 05/30/2023 John Avina DO, [facility] [address], [place] [id number] 07/15/2023 John Avina Chronic systolic congestive heart failure I50.22 and Type 2 diabetes mellitus with other diabetic kidney complication E11.29 John Avina DO, [facility] [address], [place] [id number] 07/16/2023 John Avina Anesthesia of skin R20.0 and Paresthesia of skin R20.2 John Avina DO [facility] [address], [place] [id number] 08/12/2023 John Avina DO, [facility] [address], [place] [id number] 08/13/2023 John Avina DO, [facility] [address], [place] [id number] 08/14/2023 John Avina DO, [facility] [address], [place] [id number] 08/20/2023 John Avina DO, [facility] [address], [place] [id number] 08/20/2023 John Avina DO, [facility] [address], [place] [id number] 08/21/2023 John Avnia DO, [address] [id number] 08/21/2023 John Avina DO, [address] [id number] 09/25/2023 John Avina DO, [address] [id number] 10/11/2023 John Avina DO, [address] [id number] 10/29/2023 John Avina Coronary artery dise ase involving iliamna coronary artery of iliamna heart without angina pectoris I25.10 John Avina DO, [facility] [address], [place] [id number] 11/12/2023 John Avina Type 2 diabetes mellitus with other diabetic kidney complication E11.29 John Avina DO, [facility] [address], [place] [id number] 11/18/2023 John Avina Type 2 diabetes mellitus with other diabetic kidney complication E11.29 John Avina DO, [facility] [address], [place] [id number] 11/20/2023 John Avina DO, [facility] [address], [place] [id number] 12/20/2023 John Avina DO, [address] [id number] 12/31/2023 John Avina DO, [facility] [address], [place] [id number] 02/11/2024 John Avina DO, [address] [id number] 02/14/2024 John Avina Type 2 diabetes mellitus with other diabetic kidney complication E11.29 John Avina DO, [facility] [address], [place] [id number] 02/28/2024 John Avina Type 2 diabetes mellitus with other diabetic kidney complication E11.29 John Avina DO, [facility] [address], [place] [id number] 08/13/2023 John Avina Chronic systolic congestive heart failure I50.22 ; 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 I25.10 ; Postoperative hypothyroidism E89.0 ; Type 2 diabetes mellitus with other diabetic kidney complication E11.29 ; Iron deficiency anemia due to chronic blood loss D50.0 ; Renal insufficiency N28.9 and Idiopathic gout involving toe of left foot, unspecified chronicity M10.072 John Avina DO, [facility] [address], [place] [id number] 02/10/2024 John Avina Chronic systolic congestive heart failure I50.22 ; 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 I25.10 ; Idiopathic [...] - I50.22) 09/17/2023 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 (ICD-10 - I25.10) Cardiac catheterization is planned to be performed in 2 days 10/01/2023 Chronic systolic congestive heart failure (ICD-10 - I50.22) Follow up with Cardiology. Is seeing them in 2 days 10/01/2023 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 (ICD-10 - I25.10) Follow up with Cardiology. Is seeing them in 2 days 10/29/2023 Chronic systolic congestive heart failure (ICD-10 - I50.22) 10/29/2023 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 (ICD-10 - I25.10) 01/15/2024 Chronic systolic congestive heart failure (ICD-10 - I50.22) 01/15/2024 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 (ICD-10 - I25.10) 07/15/2023 Chronic systolic congestive heart failure (ICD-10 - I50.22) 07/16/2023 Anesthesia of skin (ICD-10 - R20.0) 07/16/2023 Paresthesia of skin (ICD-10 - R20.2) 10/29/2023 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 (ICD-10 - I25.10) [...] - I50.22) 08/13/2023 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 (ICD-10 - I25.10) 02/10/2024 Chronic systolic congestive heart failure (ICD-10 - I50.22) 02/10/2024 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 (ICD-10 - I25.10) 07/10/2023 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 (ICD-10 - I25.10) [...] Date MEDICARE [address] [place] [phone] [id number] MaryTonia boston Self - patient is the insured MEDEX [address] [place] [address] [id number] Tonia Hernandez Self - patient is the insured MEDICAL (GENERAL) HISTORY Medical History History ICD Code thyroid cancer s/p thyroidectomy, with s econdary hypothyroidism cholelithiasis choledocholithiasis multiple myeloma anemia congestive heart failure cardiomyopathy coronary artery disease gout renal lithiasis neuropathy Hyperglycemia R73.9 Chronic systolic congestive heart failur e I50.22 Coronary artery disease invo lving iliamna coronary artery of iliamna heart without angina pectoris I25.10 Idiopathic gout involving toe of left fo ot, unspecified chronicity M10.072 Postoperative hypothyroidism E89.0 Renal insufficiency N28.9 Iron deficiency anemia due to chronic bl ood loss D50.0 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
--- OUTSIDE RECORDS SUMMARY | 2024-04-23 14:42 | XMS_ITS ---
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 Generated for Printi favian/Caryl/eTransmitting on:?04/23/2024 02:41 PM EST
== END 2024-04-23 14:01 | disposition home or self-care (01) ==
PROVIDERS: PCP Internal Medicine; Visit Provider Internal Medicine Cardiovascular Disease
DX: I50.20 Unspecified systolic (congestive) heart failure (principal); I25.10 Atherosclerotic heart disease of native coronary artery without angina pectoris
CPT/HCPCS: 99214; G2211

== ENCOUNTER → 2024-04-23 13:28 | Outpatient (BNVA) | payer MEDICARE, SELFPAY | PROVIDERS: PCP Internal Medicine; Visit Provider Internal Medicine Cardiovascular Disease | DX: I50.20 Unspecified systolic (congestive) heart failure (principal); I25.10 Atherosclerotic heart disease of native coronary artery without angina pectoris | CPT/HCPCS: 99212 ==

== ENCOUNTER 2024-05-05 12:57 | Outpatient (AMB) | payer MEDICARE, SELFPAY ==
--- NOTE | 2024-05-05 13:03 | A.OFFPC_ITS ---
Vital Signs 05/05/24 13:05 Height 5 ft 1 in Weight 133 lb BMI 25.1 BP 138/62 Blood Pressure Location Rt brachial Pulse 62 Pulse Oximetry (%) 99 Intake Visit Reasons: 3 month follow up Intake Note: Tonia is here for a 3 month follow up. Allergies esomeprazole [From NEXIUM] Allergy (Intermediate, Verified 05/05/24 13:31) CHEST PAIN omeprazole [From PRILOSEC] Allergy (Intermediate, Verified 05/05/24 13:31) CHEST PAIN diphenhydramine [From Benadryl] Allergy (Verified 05/05/24 13:31) Dizziness Medication List - Last Reconciled 05/05/24 by Paul Dickinson MD allopurinol 300 mg PO DAILY ascorbic acid (vitamin C) (Vitamin C) 500 mg PO DAILY aspirin 81 mg PO DAILY bumetanide 2 mg See Protocol PO DAILY 90 days calcium carbonate (Calcium 600) 600 mg PO DAILY carvedilol 6.25 mg PO BID cholecalciferol (vitamin D3) (Vitamin D3) 50 mcg PO DAILY clopidogrel 75 mg PO DAILY cranberry 500 mg PO DAILY cyanocobalamin (vitamin B-12) 5,000 mcg PO DAILY exemestane 25 mg PO DAILY folic acid 1 mg PO DAILY gabapentin 100 mg PO DAILY hydralazine 25 mg See Protocol PO BID 90 days levothyroxine 100 mcg PO MOTUTHFRSA@0600 rosuvastatin 20 mg PO DAILY vitamin E 450 mg PO DAILY [facility] Medical History CAD (coronary artery disease) CHF (congestive heart failure) Cervix prolapsed into vagina History of blood transfusion (~02/01/23) Diabetes mellitus HFrEF (heart failure with reduced ejection fraction) Cardiomyopathy Normal colonoscopy Type 2 diabetes mellitus Diverticulosis Irritable bowel syndrome Pulmonary emboli GERD (gastroesophageal reflux disease) Nephrolithiasis Hypoparathyroidism Papillary thyroid carcinoma HTN (hypertension) Polymyalgia rheumatica Hyperglycemia Chronic anemia Anemia Surgical History Stented coronary artery Breast mass, right H/O endoscopy History of cholecystectomy H/O total thyroidectomy Family History Sister CHF (congestive heart failure) Daughter Breast cancer Son Kidney stones Social History Household Members: Family Household Members Other:: son Housing: House Do you presently have visiting nurse or other home services: No Alcohol intake: never Comment: Pt refuses fall risk protocol/ precautions- ambulates with steady gait Patient Tobacco Use Status: Never used Tobacco Years Smoked: 30 +/- e-Cigarette/Vaping Use: Never Used Second Hand Smoke Exposure: No service: No Current occupational status: retired Current occupation: Right Handed Questionnaire Thrive Questionnaire Date Thrive assessed: 12/15/23 Physical exam (Primary Care) Vital Signs: Last Vital Signs Pulse 62 05/05/24 13:05 Pulse Ox 99 05/05/24 13:05 BMI result Body Mass Index 25.1 Tobacco/Smoking Status: Tobacco use Status Patient Tobacco Use Status Never used Tobacco 05/05/24 13:14 Tobacco use type 08/15/23 17:11 e-Cigarette/Vaping Use Never Used 05/05/24 13:14 Thrive Assessment: Date of Thrive Assessment Date Thrive assessed 12/15/23 05/05/24 13:14 Coding Level of Care Code New Pt Level 4 (81005) Complex EM visit Add On G2211 Diagnoses HTN (hypertension) I10 HFrEF (heart failure with reduced ejection fraction) I50.20 Mitral regurgitation I34.0 Myelodysplasia (myelodysplastic syndrome) D46.9 Breast cancer, right C50.911 Assessment & Plan Assessment & Plan (1) HTN (hypertension): Code(s): I10 - Essential (primary) hypertension Category: Medical Plan: BP is stable. Continue current medications. (2) HFrEF (heart failure with reduced ejection fraction): Code(s): I50.20 - Unspecified systolic (congestive) heart failure Category: Medical Plan: Patient sees Dr Ocasio. Note reviewed. Continue current medications. (3) Mitral regurgitation: Code(s): I34.0 - Nonrheumatic mitral (valve) insufficiency Category: Medical Plan: Condition is stable. (4) Myelodysplasia (myelodysplastic syndrome): Code(s): D46.9 - Myelodysplastic syndrome, unspecified Category: Medical Plan: Sees Dr Tse. Hgb is stable/ (5) Breast cancer, right: Code(s): C50.911 - Malignant neoplasm of unspecified site of right female breast Category: Medical Plan: Condition is stable. Plan History of Present Illness The patient is a 78-year-old female presenting for a six-month follow-up visit to evaluate her ongoing medical conditions. She has been diagnosed with myelodysplastic syndromes, which is currently stable, with her hemoglobin level at 9 g/dL as per the recent lab work conducted on April 20. She has a history of chronic kidney disease, with a creatinine level of 2 mg/dL, indicating some degree of renal impairment. Additionally, she reports persistent urinary incontinence requiring the continuous use of pads. There is no significant change in her liver enzyme levels, although they remain slightly elevated. She denies any significant concerns today and does not require medication refills, as her prescriptions have been managed. Social History - The patient resides in [place], living with her son. - She participates in activities such as cooking and grocery shopping. - She drives during the daytime but avoids night driving due to diminished eyesight. 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 Review of Systems - Genitourinary: Reports urinary incontinence, described as frequent leakage requiring constant pad use. Physical Exam General: Cooperative and healthy appearing Nutritional Appearance: Well nourished Orientation/consciousness: Patient oriented x3 Limitations: No limitations Head: Normal to inspection General: Appearance normal, both eyes and all related structures Neck: Normal visual inspection Chest: Normal palpation of entire chest wall Respiratory: Normal respiratory effort Neurology: Patient oriented x3 Results - Labs: Hemoglobin 9 g/dL, Creatinine 2 mg/dL, Slightly elevated liver enzymes. Plan - Monitor the stability of myelodysplastic syndrome and continue to assess hemoglobin levels regularly. - Manage chronic kidney disease with regular monitoring of creatinine levels and consider lifestyle modifications as needed. - Address urinary incontinence and consider discussing potential interventions or specialist referral in the future. - Monitor liver function tests and advise on any new symptoms that may arise. Patient was informed and verbally consented to the use of an ambient scribe for clinic note documentation during this visit. Discussion Notes During the visit, I reviewed the patient's stable myelodysplastic syndrome and the current lab findings indicating chronic kidney disease and slightly elevated liver enzymes. I explained the importance of regular monitoring and maintaining her current management plan. We discussed her urinary incontinence and acknowledged the necessity for constant pad use. There were no immediate concerns or new symptoms reported. Follow-up was planned for three months to reassess her conditions and ensure stability. Patient Instructions - Continue current medication regimen as prescribed. - Engage in safe driving habits, avoiding nighttime driving. - Maintain regular follow-up appointments as scheduled. - Report any new or worsening symptoms, especially concerning urinary incontinence, kidney function, or general well-being.
[2024-05-05 13:05] VITALS: BP 138/62; PULSE 62; O2SAT 99; BMI 25.1
--- OUTSIDE RECORDS SUMMARY | 2024-05-05 15:13 | XMS_ITS ---
Author Organization John Avina DO, FACP Address [address], [place] [id number] Care Team Providers Care Associate Entertainment Editor Name Role Phone John Avina Primary Care Provider REASON FOR VISIT 3 month f/u Encounters Encounter Location Date Provider Diagnosis John Avina DO, FACP [address] [place] [phone] 05/05/2024 John Avina PLAN OF TREATMENT No Information
--- OUTSIDE RECORDS SUMMARY | 2024-05-05 15:13 | XMS_ITS ---
Author Organization John Avina DO, [facility] Address [address] [place], [place] [id number] Care Team Providers Care Embedded Linux Developer Name Role Phone Fabrice John Primary Care Provider REASON FOR VISIT Refill and Message MEDICATIONS Medication SIG (Take, Route, Fr equency, Duration) Notes Start Date End Date Status FreeStyle Lancets - as directed Subcutan eous Once a day for 90 days 12/31/2023 Active Encounters Encounter Location Date Provider Diagnosis [facility] DO, [facility] [address] [place], [place] [phone] 02/28/2024 John Avina Type 2 diabetes mellitus [...]
--- OUTSIDE RECORDS SUMMARY | 2024-05-05 15:13 | XMS_ITS ---
Author Organization John Avina DO, [facility] Address [address] [place], [place] [id number] Care Team Providers Care Dinkey Driver Name Role Phone FabriceJohn Primary Care Provider REASON FOR VISIT Refill MEDICATIONS Medication SIG (Take, Route, Fr equency, Duration) Notes Start Date End Date Status FreeStyle Lancets - as directed Subcutan eous Once a day for 90 days 12/31/2023 Active Encounters Encounter Location Date Provider Diagnosis [facility], [facility] [address] [place], [place] [phone] 02/14/2024 John Avina Type 2 diabetes mellitus [...]
--- OUTSIDE RECORDS SUMMARY | 2024-05-05 15:15 | XMS_ITS ---
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 Generated for Printi favian/Famalachig/eTransmitting on:?05/05/2024 03:14 PM EST
--- OUTSIDE RECORDS SUMMARY | 2024-05-05 15:15 | XMS_ITS | Patient Health Record ---
Author Organization John Avina DO, FACP Address [address], [place] [id number] Care Team Providers Care Orchid Superintendent Name Role Phone John Avina Primary Care Provider ALLERGIES Allergen (clinical drug ingredient) Drug/Non Drug Allergy documented on EMR Reaction Allergy Type Onset Date Status omeprazole Prilosec heart palpitations Drug Allergy Active esomeprazole Nexium heart palpitations Drug Allergy Active RESULTS Component Value Reference Range Notes MM tomosynthesis screening B I Reviewed date:05/21/2023 02:09:26 PM Interpretation:Incomplete Performing Lab: Notes/Report: [address] [place] [address] Mammography Report Signed Patient: Tonia Hernandez MR#: [id number] 227 : 1945 Acct:[id number] Age/Sex: 77 / F ADM Date: 05/09/23 Loc: HO.MAMMO Attending Dr: John Avina DO Ordering Physician: John Avina DO Results: 0Incom plete: Needs Additional Imaging Evaluation Date of Service: 05/09/23 Follow Up: Additional Imagi ng Procedure(s): MM tomosynthesis screening BI Accession Number(s): [id number] cc: John Avina DO EXAMINATION: MM SCREENING [...] in OV> 05/21/23 1244 DD/ 1230 TD/TT: Diesel Engine Pipe Fitter: Complete Blood Count Auto Di ff Reviewed date:05/30/2023 12:31:43 PM Interpretation:Abnormal Performing Lab:[facility], [address] [place] [phone] Notes/Report: White Blood Count 6.1 4.8-10.8 X10*3/uL [...] Reviewed date:05/30/2023 12:31:43 PM Interpretation:See note Performing Lab:[facility], [address] [place] [phone] Notes/Report: Pathologist Review - CBC SEE NOTE Normochromic macrocytic anemia; scattered ovalocytes are seen. - Josse Howard M.D. Pathology Comprehensive Met. Panel Reviewed date:05/30/2023 12:31:43 PM Interpretation:Abnormal Performing Lab:[facility], [address] [place] [phone] Notes/Report: Sodium 144 135-145 mmol/L Potassium 4.3 [...] Estimated Glomerular Filt Rate 32 NOTE: For -[place] individuals, multiply the result by 1.210. Chronic [...] Ferritin Reviewed date:05/30/2023 12:31:43 PM Interpretation:Abnormal Performing Lab:[address] [address] Notes/Report: Ferritin 1469 10-250 ng/mL Lactate Dehydrogenase Reviewed date:05/30/2023 12:31:43 PM Interpretation:Normal Performing Lab:[address] [address] Notes/Report: Lactate Dehydrogenase 145 122-220 U/L Vitamin B12 and Folate Reviewed date:05/30/2023 12:31:43 PM Interpretation:Normal Performing Lab:[address] [address] Notes/Report: Vitamin B12 > 2000 200-900 pg/mL NORMAL 200-900 PG/ML INDETERMINATE 160-199 PG/ML DEFICIENT < 160 PG/ML Folate > 20.0 > or = 4.0 ng/mL Reference Values: > or = 4.0 ng/mL < 4.0 ng/mL suggests folate deficiency Methotrexate, aminopterin and folinic acid (leucovorin) are chemotherapeutic agents whose molecular structures are similar to folate; therefore, the Accounting Officer folate assay cannot be used for patients using these drugs. Type and Screen Reviewed date:05/30/2023 12:31:43 PM Interpretation:B Positive Performing Lab:[address], [place] [address] Notes/Report: Results at Issue Units as of 05/31/23 0956 ... Test View Group: Most Recent HGB HCT Results No results available. Results at Issue Units as of 05/31/23 1208 ... Test View Group: Most Recent HGB HCT Results No results available. Hgb 7-9 gm No Blood Type BP Antibody Screen NEGATIVE Red Blood Cells Reviewed date:05/31/2023 03:17:51 PM Interpretation:Transfused Performing Lab:[facility], [address] [place] [phone] Notes/Report: Red Blood Cells [id number] BN Red Blood Cells TRANSFUSED 05/31/23 0953 Red Blood Cells [id number] BP RC Red Blood Cells TRANSFUSED 05/31/23 1205 MM tomosynthesis added views R Reviewed date:05/30/2023 12:47:30 PM Interpretation:Suspicious finding Performing Lab: Notes/Report: [facility] [address] [place] [address] Mammography Report Signed Patient: Tonia Hernandez MR#: [id number] 227 : 1945 Acct:[id number] Age/Sex: 77 / F ADM Date: 05/29/23 Loc: BETTYO Attending Dr: John Avina DO Ordering Physician: John Avina DO Results: 4Suspi cious Finding Date of Service: 05/29/23 Follow Up: Biopsy Recommend ed Procedure(s): MM tomosynthesis added views R Accession Number(s): [id number] cc: John Avina DO EXAMINATION: MM DIAGNOSTIC [...] in OV> 05/29/23 1709 DD/ 1515 TD/TT: Diesel Engine Pipe Fitter: US breast RT limited mamm on ly Reviewed date:05/30/2023 01:03:48 PM Interpretation:Suspicious finding Performing Lab: Notes/Report: [facility] [address] [place] [address] Ultrasound Report Signed Patient: Tonia Hernandez MR#: [id number] 227 : 1945 Acct:[id number] Age/Sex: 77 / F ADM Date: 05/29/23 Loc: HO.MAMMO Attending Dr: John Avina DO Ordering Physician: John Avina DO Date of Service: 05/29/23 Procedure(s): US breast RT limited mamm only Accession Number(s): [id number] cc: John Avian DO EXAMINATION: MM DIAGNOSTIC DIGITAL BREAST TOMOSYNTHESIS, [...] in OV> 05/29/23 1709 DD/ 1515 TD/TT: Diesel Engine Pipe Fitter: Pathology Reviewed date:07/04/2023 04:18:17 PM Interpretation:Abnormal Performing Lab:[facility], [address] [place] [phone] Notes/Report: MM tomosynthesis diagnostic RT Reviewed date:07/12/2023 11:59:47 AM Interpretation:Abnormal Performing Lab: Notes/Report: [facility] [address] [place] [address] Mammography Report Signed with Corey Patient: Tonia Hernandez MR#: [id number] 227 : 1945 Acct:[id number] Age/Sex: 77 / F ADM Date: 07/01/23 Loc: MONIQUE Attending Dr: Juliann Tse MD Ordering Physician: Juliann Tse MD Results: 1Negati ve Date of Service: 07/01/23 Follow Up: 1 Year From Orig inal Mammogram Procedure(s): MM tomosynthesis diagnostic RT Accession Number(s): [id number] cc: Juliann Tse MD; John Avina DO [...] targeted area with a 14G spring loaded [place] [employer] core biopsy device. There was real-time confirmation [...] in OV> 07/01/23 1137 DD/ 1108 TD/TT: Diesel Engine Pipe Fitter: US breast ndl core biopsy RT Reviewed date:07/12/2023 11:59:04 AM Interpretation:Abnormal Performing Lab: Notes/Report: [facility] [address] [place] [address] Ultrasound Report Signed with Corey Patient: Tonia Hernandez MR#: [id number] 227 : 1945 Acct:[id number] Age/Sex: 77 / F ADM Date: 07/01/23 Loc: HO.MAMMO Attending Dr: Juliann Tse MD Ordering Physician: Juliann Tse MD Date of Service: 07/01/23 Procedure(s): US breast ndl core biopsy RT Accession Number(s): [id number] cc: Juliann Tse MD; John Avina DO [...] targeted area with a 14G spring loaded [place] [employer] core biopsy device. There was real-time confirmation [...] in OV> 07/01/23 1137 DD/ 1108 TD/TT: Diesel Engine Pipe Fitter: Complete Blood Count Auto Di ff Reviewed date:07/23/2023 01:43:56 PM Interpretation:Abnormal Performing Lab:[facility], [address] [place] [phone] Notes/Report: White Blood Count 7.7 4.8-10.8 X10*3/uL [...] Reviewed date:07/23/2023 02:51:16 PM Interpretation:B Positive Performing Lab:[facility], [address] [place] [phone] Notes/Report: WITNESSED BY ARELIS Results at Issue [...] Cells Reviewed date:07/24/2023 01:10:16 PM Interpretation:Transfused Performing Lab:[facility], [address] [place] [phone] Notes/Report: Red Blood Cells [id number] BP RC Red Blood Cells TRANSFUSED 07/24/23 1018 Red Blood Cells [id number] BP RC Red Blood Cells TRANSFUSED 07/24/23 1252 Complete Blood Count Auto Di ff Reviewed date:08/09/2023 11:50:52 AM Interpretation:Abnormal Performing Lab:[facility], [address] [place] [phone] Notes/Report: White Blood Count 11.6 4.8-10.8 X10*3/uL [...] INR Reviewed date:08/09/2023 11:50:52 AM Interpretation:Abnormal Performing Lab:[address] [phone] Notes/Report: Prothrombin Time 13.4 11.1-13.3 SEC INTERNATIONAL [...] Panel Reviewed date:08/09/2023 11:51:59 AM Interpretation:Abnormal Performing Lab:[facility], [address] [place] [phone] Notes/Report: Bilirubin Total 1.6 0.0-1.0 mg/dL Bilirubin Direct 0.5 0.0-0.5 mg/dL Aspartate Amino Transferase 19 5-31 U/L Alanine Aminotransferase 41 0-31 U/L Total Protein 7.0 6.5-8.0 g/dL Albumin Level 3.9 3.5-5.0 g/dL Alkaline Phosphatase 60 39-117 U/L Basic Metabolic Panel Reviewed date:08/09/2023 11:51:59 AM Interpretation:Abnormal Performing Lab:[facility], [address] [place] [phone] Notes/Report: Sodium 144 135-145 mmol/L Potassium 3.4 [...] Estimated Glomerular Filt Rate 36 NOTE: For -[place]anaian individuals, multiply the result by 1.210. Chronic Kidney Disease: Estimated GFR < 60 mL/min/1.73m2 Severe Kidney Disease: Estimated GFR < 15 mL/min/1.73m2 Glucose Random 147 60-115 mg/dL Calcium 9.2 8.4-10.2 mg/dL Lactic Acid Reviewed date:08/09/2023 11:50:52 AM Interpretation:Normal Performing Lab:[facility], [address] [place] [phone] Notes/Report: Lactic Acid 1.4 0.5-2.0 mmol/L Troponin-I High Sensitivity Reviewed date:08/09/2023 12:41:37 PM Interpretation:Abnormal Performing Lab:[facility], [address] [place] [phone] Notes/Report: Troponin-I High Sensitivity 24.5 <3.5-17.0 ng/L The Live high sensitivity Troponin-I results should be used in conjunction with other diagnostic information such as ECG, clinical observations and information, and patient symptoms to aid in the diagnosis of [place]. B Type Natriuretic Peptide Reviewed date:08/09/2023 12:43:19 PM Interpretation:Abnormal Performing Lab:[facility], [address] [place] [phone] Notes/Report: B Type Natriuretic Peptide 1926 <100 pg/mL For those patients who are being treated with Natrecor (nesiritide, recombinant BNP), BNP testing should be performed at least two hours post treatment in order to ensure that only endogenous levels of BNP are detected. Glucose, Whole Blood Reviewed date:08/10/2023 11:22:55 AM Interpretation:Abnormal Performing Lab:[facility], [address] [place] [phone] Notes/Report: Glucose, Whole Blood 116 60-115 mg/dL METER # : [id number] Blood Culture (First) Reviewed date:08/14/2023 01:39:00 PM Interpretation:Negative Performing Lab:[facility], [address] [place] [phone] Notes/Report: Blood Culture (First) No growth after 5 days. Blood Culture (Second) Reviewed date:08/14/2023 02:29:22 PM Interpretation:Negative Performing Lab:[facility], [address] [place] [phone] Notes/Report: Blood Culture (Second) No growth after 5 days. SARS-CoV2/FLU/RSV Reviewed date:08/09/2023 12:45:37 PM Interpretation:Negative Performing Lab:[facility], [address] [place] [phone] Notes/Report: Influenza A PCR NEGATIVE Negative Influenza [...] by authorized laboratories. Testing performed on the [employer] GeneXpert utilizing real-time RT-PCR. All SARS CoV2 and positive influenza A/B results are reported to [facility]. XR chest 2V Reviewed date:08/09/2023 12:46:36 PM Interpretation:Abnormal Performing Lab: Notes/Report: [address] [place] [address] XRay Report Signed Patient: Tonia Hernandez MR#: [id number] : 1945 Acct:[id number] Age/Sex: 77 / F ADM Date: 08/09/23 Loc: HO.ED Attending Dr: Ordering Physician: Narcisa Swift NP Date of Service: 08/09/23 Procedure(s): XR chest 2V Accession Number(s): [id number] cc: John Avina DO; Narcisa Swift NP [...] in OV> 08/09/23 1210 DD/ 1147 TD/TT: Diesel Engine Pipe Fitter: Troponin-I High Sensitivity Reviewed date:08/10/2023 11:22:55 AM Interpretation:Abnormal Performing Lab:[facility], [address] [place] [phone] Notes/Report: Troponin-I High Sensitivity 31.0 <3.5-17.0 ng/L The Live high sensitivity Troponin-I results should be used in conjunction with other diagnostic information such as ECG, clinical observations and information, and patient symptoms to aid in the diagnosis of [place]. Glucose, Whole Blood Reviewed date:08/10/2023 11:22:55 AM Interpretation:Abnormal Performing Lab:[facility], [address] [place] [phone] Notes/Report: Glucose, Whole Blood 215 60-115 mg/dL METER # : [id number] Complete Blood Count no Diff Reviewed date:08/10/2023 11:22:55 AM Interpretation:Abnormal Performing Lab:[facility], [address] [place] [phone] Notes/Report: White Blood Count 8.1 4.8-10.8 X10*3/uL [...] Panel Reviewed date:08/10/2023 11:22:55 AM Interpretation:Abnormal Performing Lab:[facility], [address] [place] [phone] Notes/Report: Sodium 144 135-145 mmol/L Potassium 3.4 [...] Estimated Glomerular Filt Rate 35 NOTE: For -Ghanaian individuals, multiply the result by 1.210. Chronic Kidney Disease: Estimated GFR < 60 mL/min/1.73m2 Severe Kidney Disease: Estimated GFR < 15 mL/min/1.73m2 Glucose Random 122 60-115 mg/dL Calcium 8.9 8.4-10.2 mg/dL Magnesium Reviewed date:08/10/2023 11:22:55 AM Interpretation:Normal Performing Lab:[facility], [address] [place] [phone] Notes/Report: Magnesium 2.0 1.6-2.6 mg/dL Glucose, Whole Blood Reviewed date:08/10/2023 11:22:55 AM Interpretation:Normal Performing Lab:[facility], [address] [place] [phone] Notes/Report: Glucose, Whole Blood 115 60-115 mg/dL METER # : [id number] Glucose, Whole Blood Reviewed date:08/10/2023 11:31:06 AM Interpretation:Abnormal Performing Lab:[facility], [address] [place] [phone] Notes/Report: Glucose, Whole Blood 183 60-115 mg/dL METER # : [id number] Glucose, Whole Blood Reviewed date:08/10/2023 04:15:52 PM Interpretation:Normal Performing Lab:[facility], [address] [place] [phone] Notes/Report: Glucose, Whole Blood 94 60-115 mg/dL METER # : [id number] Glucose, Whole Blood Reviewed date:08/11/2023 10:10:22 AM Interpretation:Abnormal Performing Lab:[facility], [address] [place] [phone] Notes/Report: Glucose, Whole Blood 196 60-115 mg/dL METER # : [id number] Complete Blood Count Auto Di ff Reviewed date:08/11/2023 10:10:22 AM Interpretation:Abnormal Performing Lab:[facility], [address] [place] [phone] Notes/Report: White Blood Count 6.5 4.8-10.8 X10*3/uL [...] Panel Reviewed date:08/11/2023 10:10:22 AM Interpretation:Abnormal Performing Lab:[facility], [address] [place] [phone] Notes/Report: Sodium 142 135-145 mmol/L Potassium 3.2 [...] Estimated Glomerular Filt Rate 29 NOTE: For -Ghanaian individuals, multiply the result by 1.210. Chronic Kidney Disease: Estimated GFR < 60 mL/min/1.73m2 Severe Kidney Disease: Estimated GFR < 15 mL/min/1.73m2 Glucose Random 117 60-115 mg/dL Calcium 8.8 8.4-10.2 mg/dL Magnesium Reviewed date:08/11/2023 10:10:22 AM Interpretation:Normal Performing Lab:[facility], [address] [place] [phone] Notes/Report: Magnesium 2.2 1.6-2.6 mg/dL Glucose, Whole Blood Reviewed date:08/11/2023 10:10:22 AM Interpretation:Abnormal Performing Lab:[facility], [address] [place] [phone] Notes/Report: Glucose, Whole Blood 120 60-115 mg/dL METER # : [id number] Glucose, Whole Blood Reviewed date:08/11/2023 04:07:23 PM Interpretation:Abnormal Performing Lab:[facility], [address] [place] [phone] Notes/Report: Glucose, Whole Blood 151 60-115 mg/dL METER # : [id number] Urinalysis and Microscopic Reviewed date:08/15/2023 08:56:05 PM Interpretation:Abnormal Performing Lab:[facility], [address] [place] [phone] Notes/Report: Color Urine Yellow Appearance Urine Cloudy PH 5.5 5.0-9.0 Glucose Urine UA Negative Negative mg/dL Urine Blood Negative Negative Specific [place] - Urine 1.010 1.005-1.025 Urine Protein 30 (1+) Neg-Trace mg/dL Urine Ketones Negative Negative mg/dL Nitrite Urine Positive Negative Leukocyte Esterase Urine Moderate (2+) Negative RBC Urine 0-2 0-2 /HPF WBC Urine >50 0-5 /HPF Squamous Epithelial Cell Urine 11-20 0-2 /HPF Bacteria Urine 4+ None Seen Hyaline Casts Urine 3-5 0-2 /LPF Liver Panel Reviewed date:08/15/2023 08:56:05 PM Interpretation:Abnormal Performing Lab:[facility], [address] [place] [phone] Notes/Report: Bilirubin Total 0.6 0.0-1.0 mg/dL Bilirubin Direct 0.3 0.0-0.5 mg/dL Aspartate Amino Transferase 25 5-31 U/L Alanine Aminotransferase 37 0-31 U/L Total Protein 7.2 6.5-8.0 g/dL Albumin Level 3.9 3.5-5.0 g/dL Alkaline Phosphatase 59 39-117 U/L Basic Metabolic Panel Reviewed date:08/15/2023 08:58:22 PM Interpretation:Abnormal Performing Lab:[facility], [address] [place] [phone] Notes/Report: Sodium 144 135-145 mmol/L Potassium 3.6 3.3-5.1 mmol/L Chloride 106 96-108 mmol/L Carbon Dioxide 29 22-29 mmol/L Anion Gap 13 12-20 Blood Urea Nitrogen 26 9-16 mg/dL Creatinine 1.42 0.5-1.4 mg/dL Estimated Glomerular Filt Rate 36 NOTE: For -[place]anaian individuals, multiply the result by 1.210. Chronic Kidney Disease: Estimated GFR < 60 mL/min/1.73m2 Severe Kidney Disease: Estimated GFR < 15 mL/min/1.73m2 Glucose Random 174 60-115 mg/dL Calcium 9.1 8.4-10.2 mg/dL TSH reflex Free T4 Reviewed date:08/15/2023 08:56:05 PM Interpretation:Normal Performing Lab:[facility], [address] [place] [phone] Notes/Report: TSH reflex Free T4 3.45 0.32-4.0 uIU/mL Complete Blood Count Auto Di ff Reviewed date:08/15/2023 08:56:05 PM Interpretation:Abnormal Performing Lab:[facility], [address] [place] [phone] Notes/Report: White Blood Count 5.6 4.8-10.8 X10*3/uL [...] Peptide Reviewed date:08/15/2023 08:56:19 PM Interpretation:Abnormal Performing Lab:[facility], [address] [place] [phone] Notes/Report: B Type Natriuretic Peptide 765 <100 pg/mL For those patients who are being treated with Natrecor (nesiritide, recombinant BNP), BNP testing should be performed at least two hours post treatment in order to ensure that only endogenous levels of BNP are detected. Complete Blood Count no Diff Reviewed date:08/21/2023 04:45:20 PM Interpretation:Abnormal Performing Lab:[facility], [address] [place] [phone] Notes/Report: White Blood Count 6.8 4.8-10.8 X10*3/uL [...] Screen Reviewed date:08/21/2023 05:34:02 PM Interpretation:Negative Performing Lab:[facility], [address] [place] [phone] Notes/Report: Witnessed by [facility] Blood Type BP Antibody Screen NEGATIVE XR DEXA axial skeleton Reviewed date:08/31/2023 12:30:01 PM Interpretation:Abnormal Performing Lab: Notes/Report: [address] [place] [address] Mammography Report Signed Patient: Tonia Hernandez MR#: [id number] : 1945 Acct:[id number] Age/Sex: 77 / F ADM Date: 08/29/23 Loc: HO.MAMMO Attending Dr: Juliann Tse MD Ordering Physician: Juliann Tse MD Results: Date of Service: 08/29/23 Follow Up: Procedure(s): XR DEXA axial skeleton Accession Number(s): [id number] cc: Juliann Tse MD; John Avina DO EXAMINATION: BONE DENSITOMETRY CLINICAL INDICATION: Postmenopausal bone loss. COMPARISON: Baseline BD dated 08/06/2013. TECHNIQUE: Using a tritrue DXA System (software version: 13.1) manufactured by [employer], dual-energy x-ray absorptiometry was performed of the [...] in OV> 08/30/23 0941 DD/ 1347 TD/TT: Diesel Engine Pipe Fitter: MORENA Complete Blood Count Auto Di ff Reviewed date:09/11/2023 06:19:56 PM Interpretation:Abnormal Performing Lab:[facility], [address] [place] [phone] Notes/Report: White Blood Count 5.0 4.8-10.8 X10*3/uL [...] INR Reviewed date:09/11/2023 06:19:56 PM Interpretation:Normal Performing Lab:[address] [phone] Notes/Report: Prothrombin Time 12.0 11.1-13.3 SEC INTERNATIONAL [...] Panel Reviewed date:09/11/2023 06:19:56 PM Interpretation:Abnormal Performing Lab:[address] [address] Notes/Report: Sodium 144 135-145 mmol/L Potassium 3.8 3.3-5.1 mmol/L Chloride 111 96-108 mmol/L Carbon Dioxide 22 22-29 mmol/L Anion Gap 15 12-20 Blood Urea Nitrogen 37 9-16 mg/dL Creatinine 1.67 0.5-1.4 mg/dL Estimated Glomerular Filt Rate 30 NOTE: For -[place]anaian individuals, multiply the result by 1.210. Chronic Kidney Disease: Estimated GFR < 60 mL/min/1.73m2 Severe Kidney Disease: Estimated GFR < 15 mL/min/1.73m2 Glucose Random 167 60-115 mg/dL Calcium 9.4 8.4-10.2 mg/dL Troponin-I High Sensitivity Reviewed date:09/23/2023 09:32:33 AM Interpretation:Abnormal Performing Lab:[address] [phone] Notes/Report: Troponin-I High Sensitivity 344.6 <3.5-17.0 ng/L Critical value for test(TROP): Results called to and read back by: ROBYN Person calling: REGINA Date: 09/22/23 Time: 2206 The Live high sensitivity Troponin-I results should be used in conjunction with other diagnostic information such as ECG, clinical observations and information, and patient symptoms to aid in the diagnosis of [place]. Urine Culture Reviewed date:09/25/2023 09:50:47 AM Interpretation:Positive Performing Lab:[address] [phone] Notes/Report: O:KLEPNE Klebsiella pneumoniae Urine Culture Quant Urine Culture > 100,000 cfu/mL Ampicillin >=32 Ceftriaxone <=0.25 Gentamicin <=1 Levofloxacin <=0.12 Nitrofurantoin 128 Trimethoprim/Sulfamethoxa zole <=20 UA ClnCatch+Micro w/rflx Cul t Reviewed date:09/23/2023 09:32:33 AM Interpretation:Abnormal Performing Lab:[address] [address] Notes/Report: [id number] Urine, Clean Catch Color Urine Yellow Appearance Urine Cloudy PH 5.5 5.0-9.0 Glucose Urine UA Negative Negative mg/dL Urine Blood Negative Negative Specific [place] - Urine 1.010 1.005-1.025 Urine Protein 30 (1+) Neg-Trace mg/dL Urine Ketones Negative Negative mg/dL Nitrite Urine Negative Negative Leukocyte Esterase Urine Large (3+) Negative RBC Urine 0-2 0-2 /HPF WBC Urine >50 0-5 /HPF Squamous Epithelial Cell Urine 3-5 0-2 /HPF Bacteria Urine 4+ None Seen Hyaline Casts Urine 6-10 0-2 /LPF Type and Screen Reviewed date:09/23/2023 09:32:33 AM Interpretation:Negative Performing Lab:[address] [phone] Notes/Report: Results at Issue Units as of [...] Cells Reviewed date:09/23/2023 09:32:51 AM Interpretation:Transfused Performing Lab:[facility], [address] [place] [phone] Notes/Report: Red Blood Cells [id number] BP RC Red Blood Cells TRANSFUSED 09/22/23 1922 Red Blood Cells [id number] BP RC Red Blood Cells TRANSFUSED 09/23/23 0023 XR chest 2V Reviewed date:09/23/2023 09:34:36 AM Interpretation:Abnormal Performing Lab: Notes/Report: [address] [address] XRay Report Signed Patient: Tonia Hernandez MR#: [id number] : 1945 Acct:[id number] Age/Sex: 78 / F ADM Date: 09/22/23 Loc: .ED Attending Dr: Ordering Physician: Rachael Cleary NP Date of Service: 09/22/23 Procedure(s): XR chest 2V Accession Number(s): [id number] cc: John Avina DO; Rachael Cleary NP [...] in OV> 09/22/23 1703 DD/ 1614 TD/TT: Diesel Engine Pipe Fitter: BRENDA Complete Blood Count no Diff Reviewed date:09/23/2023 09:32:33 AM Interpretation:Abnormal Performing Lab:[facility], [address] [place] [phone] Notes/Report: White Blood Count 7.8 4.8-10.8 X10*3/uL [...] Panel Reviewed date:09/23/2023 09:32:33 AM Interpretation:Abnormal Performing Lab:[address] [address] Notes/Report: Sodium 142 135-145 mmol/L Potassium 3.8 [...] Estimated Glomerular Filt Rate 15 NOTE: For -[place]ian individuals, multiply the result by 1.210. Chronic [...] Blood Reviewed date:09/23/2023 09:32:33 AM Interpretation:Abnormal Performing Lab:[address] [phone] Notes/Report: Glucose, Whole Blood 120 60-115 mg/dL METER # : [id number] Glucose, Whole Blood Reviewed date:09/23/2023 07:28:16 PM Interpretation:Abnormal Performing Lab:[facility], [address] [place] [phone] Notes/Report: Glucose, Whole Blood 138 60-115 mg/dL METER # : [id number] Glucose, Whole Blood Reviewed date:09/23/2023 07:29:16 PM Interpretation:Abnormal Performing Lab:[facility], [address] [place] [phone] Notes/Report: Glucose, Whole Blood 180 60-115 mg/dL METER # : [id number] Glucose, Whole Blood Reviewed date:09/24/2023 10:33:14 AM Interpretation:Abnormal Performing Lab:[facility], [address] [place] [phone] Notes/Report: Glucose, Whole Blood 130 60-115 mg/dL METER # : [id number] Complete Blood Count no Diff Reviewed date:09/24/2023 10:33:14 AM Interpretation:Abnormal Performing Lab:[facility], [address] [place] [phone] Notes/Report: White Blood Count 7.1 4.8-10.8 X10*3/uL [...] g Reviewed date:09/24/2023 10:33:14 AM Interpretation:Abnormal Performing Lab:[facility], [address] [place] [phone] Notes/Report: Sodium 144 135-145 mmol/L Potassium 3.4 [...] Estimated Glomerular Filt Rate 18 NOTE: For -[place] individuals, multiply the result by 1.210. Chronic Kidney Disease: Estimated GFR < 60 mL/min/1.73m2 Severe Kidney Disease: Estimated GFR < 15 mL/min/1.73m2 Glucose Fasting 111 60-99 mg/dL A fasting glucose from 100-125 mg/dl is considered impaired (pre-diabetes). Calcium 9.3 8.4-10.2 mg/dL Glucose, Whole Blood Reviewed date:09/24/2023 10:33:14 AM Interpretation:Normal Performing Lab:[facility], [address] [place] [phone] Notes/Report: Glucose, Whole Blood 111 60-115 mg/dL METER # : [id number] Glucose, Whole Blood Reviewed date:09/24/2023 12:26:49 PM Interpretation:Abnormal Performing Lab:[facility], [address] [place] [phone] Notes/Report: Glucose, Whole Blood 172 60-115 mg/dL METER # : [id number] Complete Blood Count no Diff Reviewed date:09/30/2023 04:55:56 PM Interpretation:Abnormal Performing Lab:[facility], [address] [place] [phone] Notes/Report: White Blood Count 7.0 4.8-10.8 X10*3/uL [...] Panel Reviewed date:09/30/2023 04:56:15 PM Interpretation:Abnormal Performing Lab:[facility], [address] [place] [phone] Notes/Report: Sodium 140 135-145 mmol/L Potassium 4.0 3.3-5.1 mmol/L Chloride 104 96-108 mmol/L Carbon Dioxide 28 22-29 mmol/L Anion Gap 12 12-20 Blood Urea Nitrogen 27 9-16 mg/dL Creatinine 1.74 0.5-1.4 mg/dL Estimated Glomerular Filt Rate 28 NOTE: For -[place] individuals, multiply the result by 1.210. Chronic Kidney Disease: Estimated GFR < 60 mL/min/1.73m2 Severe Kidney Disease: Estimated GFR < 15 mL/min/1.73m2 Glucose Random 221 60-115 mg/dL Calcium 9.9 8.4-10.2 mg/dL Complete Blood Count Auto Di ff Reviewed date:10/30/2023 03:16:20 PM Interpretation:Abnormal Performing Lab:[facility], [address] [place] [phone] Notes/Report: White Blood Count 6.7 4.8-10.8 X10*3/uL [...] Panel Reviewed date:10/30/2023 03:28:23 PM Interpretation:Abnormal Performing Lab:[facility], [address] [place] [address] Notes/Report: Sodium 145 135-145 mmol/L Potassium 4.2 [...] Estimated Glomerular Filt Rate 23 NOTE: For -[place] individuals, multiply the result by 1.210. Chronic [...] Reviewed date:10/30/2023 04:02:48 PM Interpretation:Normal Performing Lab:[facility] [address] [address] Notes/Report: Vitamin D 25-OH Total 48.8 >30 [...] Reviewed date:11/21/2023 01:03:36 PM Interpretation:See Note Performing Lab:[address] [address] Notes/Report: ANEMIA [id number] LEFT ILEUM LLE Interpretation See Note See repor t from [employer] in the EMR. Chromosome Anal. Bone Marrow Reviewed date:11/26/2023 09:20:46 AM Interpretation:See note Performing Lab:[facility], [address] [place] [phone] Notes/Report: LEFT ILEUM ANEMIA [id number] Chromosome Anal. Bone Marrow See note See report from [employer] in the EMR. Glucose, Whole Blood Reviewed date:11/19/2023 12:31:12 PM Interpretation:Normal Performing Lab:[facility], [address] [place] [phone] Notes/Report: Glucose, Whole Blood 104 60-115 mg/dL METER # : [id number] Pathology Reviewed date:01/31/2024 11:06:51 AM Interpretation:Abnormal Performing Lab:[address] [address] Notes/Report: [employer] Other Ref Reviewed date:11/28/2023 04:16:18 PM Interpretation:See note Performing Lab:[address] [address] Notes/Report: NeoTYPE/NGS Neo[facility]prehensive Myeloid Disorders [employer] Other Ref See Note See re port from [employer] in the EMR. CT biopsy aspirate bone maryellen ow Reviewed date:11/19/2023 02:57:54 PM Interpretation:Successful Performing Lab: Notes/Report: [address] [address] [address] Scan Report Signed Patient: Tonia Hernandez MR#: [id number] 227 : 1945 Acct:[id number] Age/Sex: 78 / F ADM Date: 11/19/23 Loc: [facility] Attending Dr: Juliann Tse MD Ordering Physician: Juliann Tse MD Date of Service: 11/19/23 Procedure(s): CT biopsy asp core bone marrow Accession Number(s): [id number] cc: Juliann Tse MD; John Avina DO [...] #11 blade. The 13-gauge needle of the Semanticator device was drilled beyond the proximal cortex [...] in OV> 11/19/23 1405 DD/ 1345 TD/TT: Diesel Engine Pipe Fitter: Complete Blood Count Auto Di ff Reviewed date:11/22/2023 01:13:19 PM Interpretation:Abnormal Performing Lab:[facility], [address] [place] [phone] Notes/Report: White Blood Count 10.4 4.8-10.8 X10*3/uL [...] Panel Reviewed date:11/22/2023 06:50:43 PM Interpretation:Abnormal Performing Lab:[facility], [address] [place] [phone] Notes/Report: Sodium 142 135-145 mmol/L Potassium 3.7 3.3-5.1 mmol/L Chloride 106 96-108 mmol/L Carbon Dioxide 27 22-29 mmol/L Anion Gap 13 12-20 Blood Urea Nitrogen 29 9-16 mg/dL Creatinine 1.63 0.5-1.4 mg/dL Estimated Glomerular Filt Rate 31 NOTE: For -[place]ian individuals, multiply the result by 1.210. Chronic [...] Screen Reviewed date:11/22/2023 06:50:12 PM Interpretation:Negative Performing Lab:[facility], [address] [place] [phone] Notes/Report: Witnessed by KAVIN Results at Issue Units as of 11/22/23 1425 ... Test View Group: Most Recent HGB HCT Results LABORATORY Date Time Test Result Flag Normal Range 11/22/23 1259 HGB 7.4 L 12.0-16.0 g/dl 11/22/23 1259 HCT 21.5 L 37.0-47.0 % Hgb 7-9 gm No Blood Type BP Antibody Screen NEGATIVE Red Blood Cells Reviewed date:11/22/2023 06:50:12 PM Interpretation:Transfused Performing Lab:[facility], [address] [place] [phone] Notes/Report: Red Blood Cells [id number] BP RC Red Blood Cells TRANSFUSED 11/22/23 1424 Complete Blood Count Auto Di ff Reviewed date:12/04/2023 04:06:16 PM Interpretation:Abnormal Performing Lab:[facility], [address] [place] [phone] Notes/Report: White Blood Count 6.7 4.8-10.8 X10*3/uL [...] Reviewed date:12/17/2023 09:40:11 AM Interpretation:See note Performing Lab:[facility], [address] [place] [address] Notes/Report: FAUSTINO COMPREHENSIVE - MYELOID DISORDERS [employer] Other Ref See Note See re port from [employer] in the EMR. Complete Blood Count Auto Di ff Reviewed date:12/10/2023 01:59:31 PM Interpretation:Abnormal Performing Lab:[facility], [address] [place] [address] Notes/Report: White Blood Count 5.8 4.8-10.8 X10*3/uL [...] Panel Reviewed date:12/10/2023 02:14:28 PM Interpretation:Abnormal Performing Lab:[facility], [address] [place] [phone] Notes/Report: Sodium 145 135-145 mmol/L Potassium 3.8 [...] Estimated Glomerular Filt Rate 28 NOTE: For -[place] individuals, multiply the result by 1.210. Chronic [...] Screen Reviewed date:12/10/2023 02:27:13 PM Interpretation:Negative Performing Lab:[facility], [address] [place] [phone] Notes/Report: WITNESSED BY ASHER Results at Issue Units as of 12/12/23 1144 ... Test View Group: Most Recent HGB HCT Results No results available. Hgb 7-9 gm No Blood Type BP Antibody Screen NEGATIVE Red Blood Cells Reviewed date:12/12/2023 04:33:13 PM Interpretation:Transfused Performing Lab:[facility], [address] [place] [phone] Notes/Report: Red Blood Cells [id number] BP RC Red Blood Cells TRANSFUSED 12/12/23 1144 Complete Blood Count Auto Di ff Reviewed date:12/13/2023 11:58:29 AM Interpretation:Abnormal Performing Lab:[facility], [address] [place] [phone] Notes/Report: White Blood Count 9.1 4.8-10.8 X10*3/uL [...] INR Reviewed date:12/13/2023 04:15:42 PM Interpretation:Normal Performing Lab:[facility], [address] [place] [phone] Notes/Report: Prothrombin Time 12.8 11.1-13.3 SEC [employer] [...] Time Reviewed date:12/13/2023 04:15:42 PM Interpretation:Normal Performing Lab:[facility], [address] [place] [phone] Notes/Report: Partial Thromboplastin Time 30.0 26.0-36.8 SEC For information regarding the monitoring of direct thrombin inhibitors, please refer to Pharmacy. Comprehensive Met. Panel Reviewed date:12/13/2023 12:00:00 PM Interpretation:Abnormal Performing Lab:[address] [address] Notes/Report: Sodium 145 135-145 mmol/L Potassium 3.8 [...] Estimated Glomerular Filt Rate 32 NOTE: For -[place] individuals, multiply the result by 1.210. Chronic [...] Acid Reviewed date:12/13/2023 04:15:42 PM Interpretation:Normal Performing Lab:[facility], [address] [place] [phone] Notes/Report: Lactic Acid 1.6 0.5-2.0 mmol/L Troponin-I High Sensitivity Reviewed date:12/13/2023 04:15:42 PM Interpretation:Abnormal Performing Lab:[facility], [address] [place] [phone] Notes/Report: Troponin-I High Sensitivity 32.7 <3.5-17.0 ng/L The Live high sensitivity Troponin-I results should be used in conjunction with other diagnostic information such as ECG, clinical observations and information, and patient symptoms to aid in the diagnosis of [place]. B Type Natriuretic Peptide Reviewed date:12/14/2023 01:25:35 PM Interpretation:Abnormal Performing Lab:[facility], [address] [place] [phone] Notes/Report: B Type Natriuretic Peptide 3549 <100 pg/mL For those patients who are being treated with Natrecor (nesiritide, recombinant BNP), BNP testing should be performed at least two hours post treatment in order to ensure that only endogenous levels of BNP are detected. Glucose, Whole Blood Reviewed date:12/14/2023 01:25:35 PM Interpretation:Abnormal Performing Lab:[facility], [address] [place] [phone] Notes/Report: Glucose, Whole Blood 220 60-115 mg/dL METER # : [id number] Blood Culture (First) Reviewed date:12/18/2023 03:26:49 PM Interpretation:Negative Performing Lab:[address] [address] Notes/Report: Blood Culture (First) No growth after 5 days. Blood Culture (Second) Reviewed date:12/18/2023 04:31:37 PM Interpretation:Negative Performing Lab:[address] [address] Notes/Report: Blood Culture (Second) No growth after 5 days. SARS-CoV2/FLU/RSV Reviewed date:12/13/2023 12:24:52 PM Interpretation:Negative Performing Lab:[address] [address] Notes/Report: Influenza A PCR NEGATIVE Negative Influenza [...] by authorized laboratories. Testing performed on the [employer] GeneXpert utilizing real-time RT-PCR. All SARS CoV2 and positive influenza A/B results are reported to [facility]. Venous Blood Gases - POC Reviewed date:12/13/2023 04:15:42 PM Interpretation:Abnormal Performing Lab:[address] [address] Notes/Report: VBG pH 7.48 7.32-7.43 METER #: [id number] additional_comment: Cb touchel VBG pCO2 35 METER #: [id number] additional_comment: Cb touchel VBG pO2 94 METER #: [id number] additional_comment: Cb touchel VBG Base Excess 3.2 METER #: [id number] additional_comment: Cb touchel VBG HCO3 26 22-26 mmol/L METER #: [id number] additional_comment: Cb touchel VBG O2 % Saturation 99.0 METER #: [id number] additional_comment: Cb touchel CT angio chest PE protocol Reviewed date:12/14/2023 01:50:22 PM Interpretation:Abnormal Performing Lab: Notes/Report: [address] [address] [address] Scan Report Signed Patient: Tonia Hernandez MR#: [id number] 227 : 1945 Acct:[id number] Age/Sex: 78 / F ADM Date: 12/13/23 Loc: [facility] Attending Dr: Ordering Physician: Beth Hackett MD Date of Service: 12/13/23 Procedure(s): CT angio chest PE protocol Accession Number(s): [id number] cc: John Avina DO; Beth Hackett MD [...] 12/13/23 1605 DD/ 1245 TD/TT: 12/13/23 1410 Diesel Engine Pipe Fitter: XR chest 2V Reviewed date:12/13/2023 12:26:06 PM Interpretation:Abnormal Performing Lab: Notes/Report: [place] [address] XRay Report Signed Patient: Tonia Hernandez MR#: [id number] 227 : 1945 Acct:[id number] Age/Sex: 78 / F ADM Date: 12/13/23 Loc: .ED Attending Dr: Ordering Physician: Generic ED Physician Date of Service: 12/13/23 Procedure(s): XR chest 2V Accession Number(s): [id number] cc: John Avina DO; Generic ED Physician [...] 12/13/23 1209 DD/ 1000 TD/TT: 12/13/23 1010 Diesel Engine Pipe Fitter: Troponin-I High Sensitivity Reviewed date:12/14/2023 01:25:35 PM Interpretation:Abnormal Performing Lab:[facility], [address] [place] [phone] Notes/Report: Troponin-I High Sensitivity 39.0 <3.5-17.0 ng/L The Live high sensitivity Troponin-I results should be used in conjunction with other diagnostic information such as ECG, clinical observations and information, and patient symptoms to aid in the diagnosis of KS. Complete Blood Count Auto Di ff Reviewed date:12/14/2023 01:25:35 PM Interpretation:Abnormal Performing Lab:[facility], [address] [place] [phone] Notes/Report: White Blood Count 8.5 4.8-10.8 X10*3/uL [...] Panel Reviewed date:12/14/2023 01:25:35 PM Interpretation:Abnormal Performing Lab:[address] [address] Notes/Report: Sodium 144 135-145 mmol/L Potassium 3.7 [...] Estimated Glomerular Filt Rate 34 NOTE: For -[place]ian individuals, multiply the result by 1.210. Chronic Kidney Disease: Estimated GFR < 60 mL/min/1.73m2 Severe Kidney Disease: Estimated GFR < 15 mL/min/1.73m2 Glucose Random 136 60-115 mg/dL Calcium 8.9 8.4-10.2 mg/dL Glucose, Whole Blood Reviewed date:12/14/2023 01:25:35 PM Interpretation:Abnormal Performing Lab:[address] [address] Notes/Report: Glucose, Whole Blood 125 60-115 mg/dL METER # : [id number] Glucose, Whole Blood Reviewed date:12/14/2023 01:25:35 PM Interpretation:Abnormal Performing Lab:[facility], [address] [place] [phone] Notes/Report: Glucose, Whole Blood 131 60-115 mg/dL METER # : [id number] Glucose, Whole Blood Reviewed date:12/15/2023 03:07:30 PM Interpretation:Abnormal Performing Lab:[facility], [address] [place] [phone] Notes/Report: Glucose, Whole Blood 222 60-115 mg/dL METER # : [id number] Glucose, Whole Blood Reviewed date:12/15/2023 03:07:30 PM Interpretation:Abnormal Performing Lab:[facility], [address] [place] [phone] Notes/Report: Glucose, Whole Blood 151 60-115 mg/dL METER # : [id number] Complete Blood Count no Diff Reviewed date:12/15/2023 03:07:47 PM Interpretation:Abnormal Performing Lab:[facility], [address] [place] [phone] Notes/Report: White Blood Count 7.1 4.8-10.8 X10*3/uL [...] Panel Reviewed date:12/15/2023 03:07:30 PM Interpretation:Abnormal Performing Lab:[facility], [address] [place] [address] Notes/Report: Sodium 143 135-145 mmol/L Potassium 3.4 [...] Estimated Glomerular Filt Rate 26 NOTE: For -[place]anaian individuals, multiply the result by 1.210. Chronic Kidney Disease: Estimated GFR < 60 mL/min/1.73m2 Severe Kidney Disease: Estimated GFR < 15 mL/min/1.73m2 Glucose Random 116 60-115 mg/dL Calcium 9.1 8.4-10.2 mg/dL Magnesium Reviewed date:12/15/2023 03:07:30 PM Interpretation:Normal Performing Lab:[address] [address] Notes/Report: Magnesium 2.1 1.6-2.6 mg/dL B Type Natriuretic Peptide Reviewed date:12/15/2023 03:08:01 PM Interpretation:Abnormal Performing Lab:[address] [address] Notes/Report: B Type Natriuretic Peptide 3311 <100 pg/mL For those patients who are being treated with Natrecor (nesiritide, recombinant BNP), BNP testing should be performed at least two hours post treatment in order to ensure that only endogenous levels of BNP are detected. Glucose, Whole Blood Reviewed date:12/15/2023 03:07:30 PM Interpretation:Normal Performing Lab:[address] [address] Notes/Report: Glucose, Whole Blood 109 60-115 mg/dL METER # : [id number] Type and Screen Reviewed date:12/15/2023 03:07:30 PM Interpretation:Negative Performing Lab:[address] [address] Notes/Report: To be recollected. Spec. scanning error. (tens) witnessed by MALU Blood Type BP Antibody Screen NEGATIVE Glucose, Whole Blood Reviewed date:12/15/2023 03:07:30 PM Interpretation:Abnormal Performing Lab:[facility], [address] [place] [address] Notes/Report: Glucose, Whole Blood 144 60-115 mg/dL METER # : [id number] Glucose, Whole Blood Reviewed date:12/15/2023 05:43:33 PM Interpretation:Abnormal Performing Lab:[facility], [address] [place] [phone] Notes/Report: Glucose, Whole Blood 172 60-115 mg/dL METER # : [id number] Glucose, Whole Blood Reviewed date:12/15/2023 08:18:43 PM Interpretation:Abnormal Performing Lab:[facility], [address] [place] [phone] Notes/Report: Glucose, Whole Blood 205 60-115 mg/dL METER # : [id number] Complete Blood Count no Diff Reviewed date:12/16/2023 01:57:55 PM Interpretation:Abnormal Performing Lab:[facility], [address] [place] [phone] Notes/Report: White Blood Count 7.0 4.8-10.8 X10*3/uL [...] Panel Reviewed date:12/16/2023 01:57:55 PM Interpretation:Abnormal Performing Lab:[facility], [address] [place] [phone] Notes/Report: Sodium 142 135-145 mmol/L Potassium 3.3 [...] Estimated Glomerular Filt Rate 25 NOTE: For -[place] individuals, multiply the result by 1.210. Chronic Kidney Disease: Estimated GFR < 60 mL/min/1.73m2 Severe Kidney Disease: Estimated GFR < 15 mL/min/1.73m2 Glucose Random 110 60-115 mg/dL Calcium 8.9 8.4-10.2 mg/dL Magnesium Reviewed date:12/16/2023 01:57:55 PM Interpretation:Normal Performing Lab:[facility], [address] [place] [phone] Notes/Report: Magnesium 2.3 1.6-2.6 mg/dL B Type Natriuretic Peptide Reviewed date:12/16/2023 01:57:55 PM Interpretation:Abnormal Performing Lab:[facility], [address] [place] [phone] Notes/Report: B Type Natriuretic Peptide 3595 <100 pg/mL For those patients who are being treated with Natrecor (nesiritide, recombinant BNP), BNP testing should be performed at least two hours post treatment in order to ensure that only endogenous levels of BNP are detected. Glucose, Whole Blood Reviewed date:12/16/2023 01:57:55 PM Interpretation:Abnormal Performing Lab:[facility], [address] [place] [phone] Notes/Report: Glucose, Whole Blood 116 60-115 mg/dL METER # : [id number] Glucose, Whole Blood Reviewed date:12/16/2023 01:57:55 PM Interpretation:Abnormal Performing Lab:[facility], [address] [place] [phone] Notes/Report: Glucose, Whole Blood 210 60-115 mg/dL METER # : [id number] Glucose, Whole Blood Reviewed date:12/16/2023 04:51:03 PM Interpretation:Abnormal Performing Lab:[facility], [address] [place] [phone] Notes/Report: Glucose, Whole Blood 242 60-115 mg/dL METER # : [id number] Glucose, Whole Blood Reviewed date:12/16/2023 10:52:45 PM Interpretation:Abnormal Performing Lab:[address] [address] Notes/Report: Glucose, Whole Blood 150 60-115 mg/dL METER # : [id number] Complete Blood Count no Diff Reviewed date:12/17/2023 10:02:19 AM Interpretation:Abnormal Performing Lab:[address] [address] Notes/Report: White Blood Count 9.1 4.8-10.8 X10*3/uL [...] Panel Reviewed date:12/17/2023 09:16:05 AM Interpretation:Abnormal Performing Lab:[facility], [address] [place] [phone] Notes/Report: Sodium 142 135-145 mmol/L Potassium 3.6 [...] Estimated Glomerular Filt Rate 24 NOTE: For -[place]ian individuals, multiply the result by 1.210. Chronic Kidney Disease: Estimated GFR < 60 mL/min/1.73m2 Severe Kidney Disease: Estimated GFR < 15 mL/min/1.73m2 Glucose Random 130 60-115 mg/dL Calcium 9.0 8.4-10.2 mg/dL Glucose, Whole Blood Reviewed date:12/17/2023 09:15:22 AM Interpretation:Abnormal Performing Lab:[facility], [address] [place] [phone] Notes/Report: Glucose, Whole Blood 146 60-115 mg/dL METER # : [id number] Glucose, Whole Blood Reviewed date:12/17/2023 11:28:41 AM Interpretation:Abnormal Performing Lab:[facility], [address] [place] [phone] Notes/Report: Glucose, Whole Blood 144 60-115 mg/dL METER # : [id number] Glucose, Whole Blood Reviewed date:12/17/2023 04:25:49 PM Interpretation:Abnormal Performing Lab:[facility], [address] [place] [phone] Notes/Report: Glucose, Whole Blood 202 60-115 mg/dL METER # : [id number] Glucose, Whole Blood Reviewed date:12/17/2023 10:28:13 PM Interpretation:Abnormal Performing Lab:[facility], [address] [place] [phone] Notes/Report: Glucose, Whole Blood 179 60-115 mg/dL METER # : [id number] Complete Blood Count no Diff Reviewed date:12/18/2023 09:42:44 AM Interpretation:Abnormal Performing Lab:[address] [address] Notes/Report: White Blood Count 6.1 4.8-10.8 X10*3/uL [...] Panel Reviewed date:12/18/2023 09:42:44 AM Interpretation:Abnormal Performing Lab:[address] [address] Notes/Report: Sodium 145 135-145 mmol/L Potassium 3.2 [...] Estimated Glomerular Filt Rate 28 NOTE: For -[place]ian individuals, multiply the result by 1.210. Chronic Kidney Disease: Estimated GFR < 60 mL/min/1.73m2 Severe Kidney Disease: Estimated GFR < 15 mL/min/1.73m2 Glucose Random 102 60-115 mg/dL Calcium 8.8 8.4-10.2 mg/dL Magnesium Reviewed date:12/18/2023 09:42:44 AM Interpretation:Normal Performing Lab:[facility], [address] [place] [phone] Notes/Report: Magnesium 2.3 1.6-2.6 mg/dL Glucose, Whole Blood Reviewed date:12/18/2023 09:42:44 AM Interpretation:Normal Performing Lab:[facility], [address] [place] [phone] Notes/Report: Glucose, Whole Blood 110 60-115 mg/dL METER # : [id number] Type and Screen Reviewed date:12/18/2023 09:47:53 AM Interpretation:Negative Performing Lab:[facility], [address] [place] [phone] Notes/Report: Results at Issue Units as of [...] Cells Reviewed date:12/18/2023 01:30:07 PM Interpretation:Transfused Performing Lab:[facility], [address] [place] [phone] Notes/Report: Red Blood Cells [id number] BN RC Red Blood Cells TRANSFUSED 12/18/23 1249 Glucose, Whole Blood Reviewed date:12/18/2023 11:21:56 AM Interpretation:Abnormal Performing Lab:[address] [address] Notes/Report: Glucose, Whole Blood 270 60-115 mg/dL METER # : [id number] Glucose, Whole Blood Reviewed date:12/18/2023 04:31:16 PM Interpretation:Abnormal Performing Lab:[address] [address] Notes/Report: Glucose, Whole Blood 146 60-115 mg/dL METER # : [id number] Glucose, Whole Blood Reviewed date:12/19/2023 04:33:26 PM Interpretation:Abnormal Performing Lab:[address] [address] Notes/Report: Glucose, Whole Blood 184 60-115 mg/dL METER # : [id number] Complete Blood Count no Diff Reviewed date:12/19/2023 04:33:26 PM Interpretation:Abnormal Performing Lab:[address] [address] Notes/Report: White Blood Count 7.3 4.8-10.8 X10*3/uL [...] 04:33:26 PM Interpretation:Abnormal Performing Lab:[facility] [address] [address] Notes/Report: Sodium 144 135-145 mmol/L Potassium 3.2 [...] Estimated Glomerular Filt Rate 24 NOTE: For -[place] individuals, multiply the result by 1.210. Chronic Kidney Disease: Estimated GFR < 60 mL/min/1.73m2 Severe Kidney Disease: Estimated GFR < 15 mL/min/1.73m2 Glucose Random 152 60-115 mg/dL Calcium 9.8 8.4-10.2 mg/dL Magnesium Reviewed date:12/19/2023 04:33:26 PM Interpretation:Normal Performing Lab:[address] [address] Notes/Report: Magnesium 2.2 1.6-2.6 mg/dL Vitamin B12 and Folate Reviewed date:12/19/2023 04:33:26 PM Interpretation:Normal Performing Lab:[address] [address] Notes/Report: Vitamin B12 > 2000 200-900 pg/mL NORMAL 200-900 PG/ML INDETERMINATE 160-199 PG/ML DEFICIENT < 160 PG/ML Folate 17.5 > or = 4.0 ng/mL Reference Values: > or = 4.0 ng/mL < 4.0 ng/mL suggests folate deficiency Methotrexate, aminopterin and folinic acid (leucovorin) are chemotherapeutic agents whose molecular structures are similar to folate; therefore, the Accounting Officer folate assay cannot be used for patients using these drugs. Glucose, Whole Blood Reviewed date:12/19/2023 04:33:26 PM Interpretation:Abnormal Performing Lab:[address] [address] Notes/Report: Glucose, Whole Blood 138 60-115 mg/dL METER # : [id number] Glucose, Whole Blood Reviewed date:12/19/2023 04:33:26 PM Interpretation:Abnormal Performing Lab:[facility], [address] [place] [phone] Notes/Report: Glucose, Whole Blood 165 60-115 mg/dL METER # : [id number] Glucose, Whole Blood Reviewed date:12/19/2023 04:33:26 PM Interpretation:Abnormal Performing Lab:[facility], [address] [place] [phone] Notes/Report: Glucose, Whole Blood 260 60-115 mg/dL METER # : [id number] Glucose, Whole Blood Reviewed date:12/19/2023 09:52:44 PM Interpretation:Abnormal Performing Lab:[facility], [address] [place] [phone] Notes/Report: Glucose, Whole Blood 151 60-115 mg/dL METER # : [id number] Basic Metabolic Panel Reviewed date:12/20/2023 09:04:56 AM Interpretation:Abnormal Performing Lab:[facility], [address] [place] [phone] Notes/Report: Sodium 141 135-145 mmol/L Potassium 3.5 [...] Estimated Glomerular Filt Rate 21 NOTE: For -[place] individuals, multiply the result by 1.210. Chronic Kidney Disease: Estimated GFR < 60 mL/min/1.73m2 Severe Kidney Disease: Estimated GFR < 15 mL/min/1.73m2 Glucose Random 161 60-115 mg/dL Calcium 10.4 8.4-10.2 mg/dL Magnesium Reviewed date:12/20/2023 09:04:56 AM Interpretation:Normal Performing Lab:[facility], [address] [place] [phone] Notes/Report: Magnesium 2.6 1.6-2.6 mg/dL B Type Natriuretic Peptide Reviewed date:12/20/2023 09:04:56 AM Interpretation:Abnormal Performing Lab:[facility], [address] [place] [phone] Notes/Report: B Type Natriuretic Peptide 1290 <100 pg/mL For those patients who are being treated with Natrecor (nesiritide, recombinant BNP), BNP testing should be performed at least two hours post treatment in order to ensure that only endogenous levels of BNP are detected. Glucose, Whole Blood Reviewed date:12/20/2023 09:04:56 AM Interpretation:Abnormal Performing Lab:[facility], [address] [place] [phone] Notes/Report: Glucose, Whole Blood 159 60-115 mg/dL METER # : [id number] Glucose, Whole Blood Reviewed date:12/20/2023 10:58:56 AM Interpretation:Abnormal Performing Lab:[facility], [address] [place] [phone] Notes/Report: Glucose, Whole Blood 298 60-115 mg/dL METER # : [id number] Glucose, Whole Blood Reviewed date:12/20/2023 04:34:24 PM Interpretation:Abnormal Performing Lab:[facility], [address] [place] [phone] Notes/Report: Glucose, Whole Blood 304 60-115 mg/dL METER # : [id number] Glucose, Whole Blood Reviewed date:12/21/2023 10:03:58 AM Interpretation:Abnormal Performing Lab:[facility], [address] [place] [phone] Notes/Report: Glucose, Whole Blood 130 60-115 mg/dL METER # : [id number] Hold Lav - Possible Hematolo gy Reviewed date:12/21/2023 10:04:37 AM Interpretation:Hold Performing Lab:[facility], [address] [place] [phone] Notes/Report: Hold Lav - Possible Hematology SEE NOTE Specimen will be held untested for 8 hours. Call Hematology if testing is desired. Basic Metabolic Panel Reviewed date:12/21/2023 10:03:58 AM Interpretation:Abnormal Performing Lab:[facility], [address] [place] [phone] Notes/Report: Sodium 139 135-145 mmol/L Potassium 3.9 [...] Estimated Glomerular Filt Rate 19 NOTE: For -[place] individuals, multiply the result by 1.210. Chronic Kidney Disease: Estimated GFR < 60 mL/min/1.73m2 Severe Kidney Disease: Estimated GFR < 15 mL/min/1.73m2 Glucose Random 192 60-115 mg/dL Calcium 9.9 8.4-10.2 mg/dL Glucose, Whole Blood Reviewed date:12/21/2023 10:03:58 AM Interpretation:Abnormal Performing Lab:[facility], [address] [place] [phone] Notes/Report: Glucose, Whole Blood 170 60-115 mg/dL METER # : [id number] Arterial Blood Gases - POC Reviewed date:12/21/2023 10:03:58 AM Interpretation:Abnormal Performing Lab:[facility], [address] [place] [phone] Notes/Report: ABG pH 7.48 7.35-7.45 METER #: [id number] additional_comment: Payam wan ctrbb byunj ABG pCO2 38 32-45 mmHg METER #: [id number] additional_comment: Payam womatildetaashley ctrbb byunj ABG pO2 58 83-108 mmHg METER #: [id number] additional_comment: Payam whitaker ABG Base Excess 5.2 METER #: [id number] additional_comment: Payam whitaker ABG HCO3 28 22-26 mmol/L METER #: [id number] additional_comment: Payam hwitaker ABG O2 % Saturation 87.0 METER #: [id number] additional_comment: Payam whitaker Glucose, Whole Blood Reviewed date:12/22/2023 09:28:28 AM Interpretation:Abnormal Performing Lab:[facility], [address] [place] [phone] Notes/Report: Glucose, Whole Blood 233 60-115 mg/dL METER # : [id number] Comprehensive Met. Panel Reviewed date:12/24/2023 05:12:42 PM Interpretation:Abnormal Performing Lab:[facility], [address] [place] [phone] Notes/Report: Sodium 138 135-145 mmol/L Potassium 4.3 3.3-5.1 mmol/L Slight Hemoly sis Chloride 98 96-108 mmol/L Carbon Dioxide 25 22-29 mmol/L Anion Gap 19 12-20 Blood Urea Nitrogen 76 9-16 mg/dL Creatinine 3.03 0.5-1.4 mg/dL Estimated Glomerular Filt Rate 15 NOTE: For -[place] individuals, multiply the result by 1.210. Chronic [...] Peptide Reviewed date:12/24/2023 04:54:23 PM Interpretation:Abnormal Performing Lab:[facility], [address] [place] [phone] Notes/Report: B Type Natriuretic Peptide 325 <100 pg/mL For those patients who are being treated with Natrecor (nesiritide, recombinant BNP), BNP testing should be performed at least two hours post treatment in order to ensure that only endogenous levels of BNP are detected. Lipid Panel Reviewed date:12/24/2023 05:12:42 PM Interpretation:Abnormal Performing Lab:[address] [phone] Notes/Report: Triglycerides 154 <150 mg/dL Desirable Triglyceride: [...] Panel Reviewed date:12/30/2023 02:36:23 PM Interpretation:Abnormal Performing Lab:[address] [phone] Notes/Report: Sodium 142 135-145 mmol/L Potassium 4.5 3.3-5.1 mmol/L Chloride 101 96-108 mmol/L Carbon Dioxide 28 22-29 mmol/L Anion Gap 18 12-20 Blood Urea Nitrogen 54 9-16 mg/dL Creatinine 2.44 0.5-1.4 mg/dL Estimated Glomerular Filt Rate 19 NOTE: For -[place] individuals, multiply the result by 1.210. Chronic Kidney Disease: Estimated GFR < 60 mL/min/1.73m2 Severe Kidney Disease: Estimated GFR < 15 mL/min/1.73m2 Glucose Random 151 60-115 mg/dL Calcium 10.6 8.4-10.2 mg/dL B Type Natriuretic Peptide Reviewed date:12/30/2023 02:24:35 PM Interpretation:Abnormal Performing Lab:[facility], [address] [place] [phone] Notes/Report: B Type Natriuretic Peptide 538 <100 pg/mL For those patients who are being treated with Natrecor (nesiritide, recombinant BNP), BNP testing should be performed at least two hours post treatment in order to ensure that only endogenous levels of BNP are detected. Complete Blood Count Auto Di ff Reviewed date:12/31/2023 02:25:25 PM Interpretation:Abnormal Performing Lab:[facility], [address] [place] [phone] Notes/Report: White Blood Count 7.9 4.8-10.8 X10*3/uL [...] Screen Reviewed date:12/31/2023 02:56:59 PM Interpretation:Negative Performing Lab:[facility], [address] [place] [address] Notes/Report: Witnessed by MIRIR Blood Type BP Antibody Screen NEGATIVE Complete Blood Count Auto Di ff Reviewed date:01/21/2024 01:59:16 PM Interpretation:Abnormal Performing Lab:[facility], [address] [place] [address] Notes/Report: White Blood Count 6.1 4.8-10.8 X10*3/uL [...] ff Reviewed date:01/29/2024 02:11:27 PM Interpretation:Abnormal Performing Lab:[address] [phone] Notes/Report: White Blood Count 5.4 4.8-10.8 X10*3/uL [...] Panel Reviewed date:01/29/2024 03:05:32 PM Interpretation:Abnormal Performing Lab:[facility], [address] [place] [phone] Notes/Report: Sodium 145 135-145 mmol/L Potassium 3.7 3.3-5.1 mmol/L Chloride 110 96-108 mmol/L Carbon Dioxide 27 22-29 mmol/L Anion Gap 12 12-20 Blood Urea Nitrogen 27 9-16 mg/dL Creatinine 1.65 0.5-1.4 mg/dL Estimated Glomerular Filt Rate 30 NOTE: For -[place] individuals, multiply the result by 1.210. Chronic Kidney Disease: Estimated GFR < 60 mL/min/1.73m2 Severe Kidney Disease: Estimated GFR < 15 mL/min/1.73m2 Glucose Random 114 60-115 mg/dL Calcium 9.2 8.4-10.2 mg/dL B Type Natriuretic Peptide Reviewed date:01/29/2024 03:01:00 PM Interpretation:Abnormal Performing Lab:[facility], [address] [place] [phone] Notes/Report: B Type Natriuretic Peptide 1518 <100 pg/mL For those patients who are being treated with Natrecor (nesiritide, recombinant BNP), BNP testing should be performed at least two hours post treatment in order to ensure that only endogenous levels of BNP are detected. Complete Blood Count Auto Di ff Reviewed date:02/11/2024 02:28:10 PM Interpretation:Abnormal Performing Lab:[facility], [address] [place] [phone] Notes/Report: White Blood Count 6.5 4.8-10.8 X10*3/uL [...] Panel Reviewed date:02/11/2024 03:31:41 PM Interpretation:Abnormal Performing Lab:[facility], [address] [place] [phone] Notes/Report: Sodium 143 135-145 mmol/L Potassium 4.0 [...] Estimated Glomerular Filt Rate 26 NOTE: For -[place] individuals, multiply the result by 1.210. Chronic [...] Screen Reviewed date:02/11/2024 03:31:41 PM Interpretation:Positive Performing Lab:[facility], [address] [place] [phone] Notes/Report: WITNESSED BY MIRIR Results at Issue Units as of 02/13/24 1026 ... Test View Group: Most Recent HGB HCT Results No results available. Hgb 7-9 gm No Blood Type BP Antibody Screen POSITIVE Red Blood Cells Reviewed date:02/13/2024 12:28:30 PM Interpretation:Transfused Performing Lab:[facility], [address] [place] [phone] Notes/Report: Red Blood Cells [id number] BP RC Red Blood Cells TRANSFUSED 02/13/24 1025 Antibody Identification Reviewed date:02/11/2024 04:06:27 PM Interpretation:Negative Performing Lab:[facility], [address] [place] [phone] Notes/Report: Antibody Identification NEG Complete Blood Count Auto Di ff Reviewed date:03/04/2024 03:31:03 PM Interpretation:Abnormal Performing Lab:[facility], [address] [place] [phone] Notes/Report: White Blood Count 6.5 4.8-10.8 X10*3/uL [...] Panel Reviewed date:03/04/2024 03:31:38 PM Interpretation:Abnormal Performing Lab:[facility], [address] [place] [phone] Notes/Report: Sodium 142 135-145 mmol/L Potassium 4.3 [...] Screen Reviewed date:03/04/2024 05:19:32 PM Interpretation:Negative Performing Lab:[facility], [address] [place] [phone] Notes/Report: Witnessed by TANESHA Blood Type BP Antibody Screen NEGATIVE Complete Blood Count Auto Di ff Reviewed date:03/25/2024 03:15:42 PM Interpretation:Abnormal Performing Lab:[facility], [address] [place] [phone] Notes/Report: White Blood Count 5.9 4.8-10.8 X10*3/uL [...] Screen Reviewed date:03/25/2024 03:47:47 PM Interpretation:Negative Performing Lab:[facility], [address] [place] [phone] Notes/Report: Witnessed by LATHANE Blood Type BP Antibody Screen NEGATIVE Complete Blood Count Auto Di ff Reviewed date:04/13/2024 02:43:26 PM Interpretation:Abnormal Performing Lab:[facility], [address] [place] [phone] Notes/Report: White Blood Count 5.9 4.8-10.8 X10*3/uL [...] Dif Reviewed date:04/13/2024 02:43:26 PM Interpretation:Abnormal Performing Lab:[facility], [address] [place] [phone] Notes/Report: Neutrophils Percent Manual 72 45-73 % [...] Panel Reviewed date:04/13/2024 02:43:47 PM Interpretation:Abnormal Performing Lab:[address] [phone] Notes/Report: Sodium 143 135-145 mmol/L Potassium 3.5 [...] Screen Reviewed date:04/13/2024 02:43:26 PM Interpretation:Negative Performing Lab:[address] [phone] Notes/Report: Blood Type BP Antibody Screen NEGATIVE Complete Blood Count Auto Di ff Reviewed date:04/20/2024 10:12:41 AM Interpretation:Abnormal Performing Lab:[address] [phone] Notes/Report: White Blood Count 4.9 4.8-10.8 X10*3/uL [...] Panel Reviewed date:04/20/2024 10:12:09 AM Interpretation:Abnormal Performing Lab:[facility], [address] [place] [phone] Notes/Report: Sodium 144 135-145 mmol/L Potassium 3.9 [...] Screen Reviewed date:04/20/2024 11:44:28 AM Interpretation:Negative Performing Lab:[facility], [address] [place] [phone] Notes/Report: WITNESSED BY MIRIR Results at Issue Units as of 04/20/24 1111 ... Test View Group: Most Recent HGB HCT Results LABORATORY Date Time Test Result Flag Normal Range 04/20/2418 HGB 7.8 L 12.0-16.0 g/dl 04/20/24 0918 HCT 23.1 L 37.0-47.0 % Hgb 7-9 gm No Blood Type BP Antibody Screen NEGATIVE Red Blood Cells Reviewed date:04/20/2024 11:45:53 AM Interpretation:Transfused Performing Lab:[facility], [address] [place] [phone] Notes/Report: Red Blood Cells [id number] BP RC Red Blood Cells TRANSFUSED 04/20/24 [...] anxious to be scheduled at the clinic. [facility] for clinic to call this office. 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) Active confirmed 2494329052995 Problem Idiopathic gout involving toe of left foot, unspecified chronicity (M10.072) Active confirmed 59732416 Problem Postoperative hypothyroidism (E89.0) Active confirmed 63269515 Problem Constipation, unspecified constipation type (K59.00) Active confirmed Constipation (03381348) Problem Hyperglycemia (R73.9) Active confirmed 58299431 Problem Renal insufficiency (N28.9) Active confirmed 682885078 Problem Iron deficiency anemia due to chronic blood loss (D50.0) Active confirmed 529072315 Problem Type 2 diabetes mellitus with other diabetic kidney complication (E11.29) Active confirmed 60978122 Problem Cataract of left eye, unspecified cataract type (H26.9) Active confirmed 805593641 Problem Loss of balance (R26.89) Active confirmed 691100649 Problem Pessary maintenance (Z46.89) Active confirmed 710902178 Problem Malignant neoplasm of unspecified site of right female breast (C50.911) Active confirmed 035218957 Problem Estrogen receptor positive status [ER+] (Z17.0) Active confirmed 421519340 Problem Paresthesia of skin (R20.2) Active confirmed 31641555 Problem Hypoxemia (R09.02) Active confirmed Hyp oxemia (762323464) VITAL SIGNS Blood pressure diastolic 60 mm Hg 01/15/2024 Height 59.25 in 02/10/2024 Blood pressure systolic 104 mm Hg 01/15/2024 Weight 129 lbs 01/15/2024 BMI 25.83 kg/m2 01/15/2024 Encounters Encounter Location Date Provider Diagnosis John Avina DO, [facility] [address], [place] [id number] 07/10/2023 John Avina Type 2 diabetes mellitus with other diabetic kidney complication E11.29 ; Chronic systolic congestive heart failure I50.22 ; Coronary artery disease involving stockbridge coronary artery of stockbridge heart without angina pectoris I25.10 ; Postoperative hypothyroidism E89.0 ; Idiopathic gout involving toe of left foot, unspecified chronicity M10.072 ; Iron deficiency anemia due to chronic blood loss D50.0 ; Malignant neoplasm of unspecified site of right female breast C50.911 and Estrogen receptor positive status [ER+] Z17.0 John Avina DO, [facility] [address], [place] [id number] 01/07/2024 John Avina DO, [facility] [address], [place] [id number] 09/17/2023 John Avina Coronary artery dise ase involving stockbridge coronary artery of stockbridge heart without angina pectoris I25.10 ; Chronic systolic congestive heart failure I50.22 ; Postoperative hypothyroidism E89.0 ; Idiopathic gout involving toe of left foot, unspecified chronicity M10.072 ; Type 2 diabetes mellitus with other diabetic kidney complication E11.29 and Iron deficiency anemia due to chronic blood loss D50.0 John Avina DO, [facility] [address], [place] [id number] 11/19/2023 John Avina DO, [facility] [address], [place] [id number] 10/01/2023 John Avina Coronary artery dise ase involving stockbridge coronary artery of stockbridge heart without angina pectoris I25.10 ; Chronic systolic congestive heart failure I50.22 ; Type 2 diabetes mellitus with other diabetic kidney complication E11.29 ; Iron deficiency anemia due to chronic blood loss D50.0 ; Postoperative hypothyroidism E89.0 and Idiopathic gout involving toe of left foot, unspecified chronicity M10.072 John Avina DO, [facility] [address], [place] [id number] 10/29/2023 John Avina Coronary artery dise ase involving stockbridge coronary artery of stockbridge heart without angina pectoris I25.10 ; Chronic systolic congestive heart failure I50.22 ; Postoperative hypothyroidism E89.0 ; Type 2 diabetes mellitus with other diabetic kidney complication E11.29 ; Iron deficiency anemia due to chronic blood loss D50.0 and Idiopathic gout involving toe of left foot, unspecified chronicity M10.072 John Avina DO, [facility] [address], [place] [id number] 01/15/2024 John Avina Chronic systolic congestive heart failure I50.22 ; Coronary artery disease involving stockbridge coronary artery of stockbridge heart without angina pectoris I25.10 ; Idiopathic gout involving toe of left foot, unspecified chronicity M10.072 ; Postoperative hypothyroidism E89.0 ; Renal insufficiency N28.9 ; Type 2 diabetes mellitus with other diabetic kidney complication E11.29 ; Malignant neoplasm of unspecified site of right female breast C50.911 and Iron deficiency anemia due to chronic blood loss D50.0 John Avina DO, [facility] [address], [place] [id number] 05/05/2024 John Avina DO, [facility] [address], [place] [id number] 05/21/2023 John Avina DO, [facility] [address], [place] [id number] 05/30/2023 John Avina DO, [facility] [address], [place] [id number] 07/15/2023 John Avina Chronic systolic congestive heart failure I50.22 and Type 2 diabetes mellitus with other diabetic kidney complication E11.29 John Avina DO, [facility] [address], [place] [id number] 07/16/2023 John Avina Anesthesia of skin R20.0 and Paresthesia of skin R20.2 John Avina DO, FACP [address], [place] [id number] 08/12/2023 John Avina DO, [facility] [address], [place] [id number] 08/13/2023 John Avina DO, [facility] [address], [place] [id number] 08/14/2023 John Avina DO, [facility] [address], [place] [id number] 08/20/2023 John Avina DO, [facility] [address], [place] [id number] 08/20/2023 John Avina DO, [facility] [address], [place] [id number] 08/21/2023 John Avina DO, [facility] [address], [place] [id number] 08/21/2023 John Avina DO, [address] [id number] 09/25/2023 John Avina DO, [facility] [address], [place] [id number] 10/11/2023 John Avina DO, [facility] [address], [place] [id number] 10/29/2023 John Avina Coronary artery dise ase involving stockbridge coronary artery of stockbridge heart without angina pectoris I25.10 John Avina DO, [facility] [address], [place] [id number] 11/12/2023 John Avina Type 2 diabetes mellitus with other diabetic kidney complication E11.29 John Avina DO, [facility] [address], [place] [id number] 11/18/2023 John Avina Type 2 diabetes mellitus with other diabetic kidney complication E11.29 John Avina DO, [facility] [address], [place] [id number] 11/20/2023 John Avina DO, [facility] [address], [place] [id number] 12/20/2023 John Avina DO, [facility] [address], [place] [id number] 12/31/2023 John Avina DO, [facility] [address], [place] [id number] 02/11/2024 John Avina DO, [facility] [address], [place] [id number] 02/14/2024 John Avina Type 2 diabetes mellitus with other diabetic kidney complication E11.29 John Avina DO, [facility] [address], [place] [id number] 02/28/2024 John Avina Type 2 diabetes mellitus with other diabetic kidney complication E11.29 John Avina DO, [facility] [address], [place] [id number] 08/13/2023 John Avina Chronic systolic congestive heart failure I50.22 ; Coronary artery disease involving stockbridge coronary artery of stockbridge heart without angina pectoris I25.10 ; Postoperative hypothyroidism E89.0 ; Type 2 diabetes mellitus with other diabetic kidney complication E11.29 ; Iron deficiency anemia due to chronic blood loss D50.0 ; Renal insufficiency N28.9 and Idiopathic gout involving toe of left foot, unspecified chronicity M10.072 John Avina DO, [facility] [address], [place] [id number] 02/10/2024 John Avina Chronic systolic congestive heart failure I50.22 ; Coronary artery disease involving stockbridge coronary artery of stockbridge heart without angina pectoris I25.10 ; Idiopathic [...] - I50.22) 09/17/2023 Coronary artery disease involving stockbridge coronary artery of stockbridge heart without angina pectoris (ICD-10 - I25.10) Cardiac catheterization is planned to be performed in 2 days 10/01/2023 Chronic systolic congestive heart failure (ICD-10 - I50.22) Follow up with Cardiology. Is seeing them in 2 days 10/01/2023 Coronary artery disease involving stockbridge coronary artery of stockbridge heart without angina pectoris (ICD-10 - I25.10) Follow up with Cardiology. Is seeing them in 2 days 10/29/2023 Chronic systolic congestive heart failure (ICD-10 - I50.22) 10/29/2023 Coronary artery disease involving stockbridge coronary artery of stockbridge heart without angina pectoris (ICD-10 - I25.10) 01/15/2024 Chronic systolic congestive heart failure (ICD-10 - I50.22) 01/15/2024 Coronary artery disease involving stockbridge coronary artery of stockbridge heart without angina pectoris (ICD-10 - I25.10) 07/15/2023 Chronic systolic congestive heart failure (ICD-10 - I50.22) 07/16/2023 Anesthesia of skin (ICD-10 - R20.0) 07/16/2023 Paresthesia of skin (ICD-10 - R20.2) 10/29/2023 Coronary artery disease involving stockbridge coronary artery of stockbridge heart without angina pectoris (ICD-10 - I25.10) [...] - I50.22) 08/13/2023 Coronary artery disease involving stockbridge coronary artery of stockbridge heart without angina pectoris (ICD-10 - I25.10) 02/10/2024 Chronic systolic congestive heart failure (ICD-10 - I50.22) 02/10/2024 Coronary artery disease involving stockbridge coronary artery of stockbridge heart without angina pectoris (ICD-10 - I25.10) 07/10/2023 Coronary artery disease involving stockbridge coronary artery of stockbridge heart without angina pectoris (ICD-10 - I25.10) [...] Date MEDICARE [address] [place] [phone] [id number] Tonia Hernandez Self - patient is the insured [employer] [address] [place] [address] [phone] [id number] Tonia Hernandez Self - patient is the insured MEDICAL (GENERAL) HISTORY Medical History History ICD Code thyroid cancer s/p thyroidectomy, with s econdary hypothyroidism cholelithiasis choledocholithiasis multiple myeloma anemia congestive heart failure cardiomyopathy coronary artery disease gout renal lithiasis neuropathy Hyperglycemia R73.9 Chronic systolic congestive heart failur e I50.22 Coronary artery disease invo lving stockbridge coronary artery of stockbridge heart without angina pectoris I25.10 Idiopathic gout involving toe of left fo ot, unspecified chronicity M10.072 Postoperative hypothyroidism E89.0 Renal insufficiency N28.9 Iron deficiency anemia due to chronic bl ood loss D50.0 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
--- OUTSIDE RECORDS SUMMARY | 2024-05-05 15:15 | XMS_ITS ---
Author Organization [facility] Address [address] [place] [address] Care Team Providers Care Brand Communications Manager Name Role Phone Fabrice ALVAREZ, John Primary Care Provider Unavail able Raf Pink Unavailable [phone] Eyal Choe Unavailable [phone] REASON FOR VISIT misbooked Encounters Encounter Location Date Provider Diagnosis [facility] [address] [place] [address] 02/07/2023 Eyal Choe Plan Of Treatment No Information Progress Notes * Tonia HERNANDEZ RDOB:1945 (78 yo F)Acc No.[id number]:02/07/2023 Progress Notes Patient:Tonia KAPOOR Provider:?Eyal Choe DPM :1945???Age:77 Y???Sex:Female D ate:02/07/2023 Address:[address] [place] [id number] Pcp:John Avina MD Subjective: * Chief Complaints: [...] DPM Date:? 023 Generated for Med ballesteros/Caryl/Deniseitting on:?05/05/2024 03:14 PM EST
--- OUTSIDE RECORDS SUMMARY | 2024-05-05 15:15 | XMS_ITS ---
Author Organization [facility] Address [address] [place] [address] Care Team Providers Care Plane Tableman Name Role Phone John Avina MD Primary Care Provider Unavail able Raf Pink Unavailable [phone] Allergies Allergen (clinical drug ingredient) Drug/Non Drug [...] Problem Status W/U Status Risk Notes Problem 215554221 Tinea unguium (B35.1) Active confirmed Vital Signs Height 5 ft 1 in in 03/19/2023 Weight 126 lbs 03/19/2023 BMI 23.8 kg/m2 03/19/2023 Procedures Procedure Date Ordered Date Performed Result Body Sit e [id number]-WHZHQLH NAIL, 1-5 03/19/2023 N/A Encounters Encounter Location Date Provider Diagnosis [facility] [address] [place] [address] 03/19/2023 Raf Pink Tinea unguium B35.1 ; [...] Treatment Pending Test Test Name Order Date [id number] NAIL, 1-5 03/19/2023 Next Appt Details Follow [...] as necessary. Patient chooses, no pharmaceutical tx (93311) Progress Notes * Tonia HERNANDEZ RDOB:1945 (77 yo F)Acc No.[id number]:03/19/2023 Progress Notes Patient:?Tonia Hernandez R Provider:?Raf Pink DPM :1945???Age:77 Y???Sex:Female D ate:03/19/2023 Address:[address] [place] [address] [place], [id number] Pcp:John Avina MD Subjective: * Chief Complaints: [...] as necessary. Patient chooses, no pharmaceutical tx (34814).? * Procedure Codes:?04408 WILL HALL, 1-5 * Preventive Medicine:? ??Counseling:?Discussion:?-03: [...] Pink DPM Date:?2022 Generated for Med ballesteros/Caryl/Perfecto on:?05/05/2024 03:14 PM EST History and Physical Notes * [...]
--- OUTSIDE RECORDS SUMMARY | 2024-05-05 15:15 | XMS_ITS | Patient Health Record ---
Author Organization [facility] Address [address] [facility] [place] [address] Care Team Providers Care Maintainability Engineer Name Role Phone John Avina MD Primary Care Provider Unavail able Raf Pink Unavailable [phone] Allergies Allergen (clinical drug ingredient) Drug/Non Drug [...] Problem Status W/U Status Risk Notes Problem [id number] Tinea unguium (B35.1) Active confirmed Plan Of Treatment Pending Test Test Name Order Date X ray : Foot, left 3V 06/16/2012 [id number] NAIL, 1-5 07/28/2012 34894-IYSOMHE NAIL, 1-5 10/15/2012 [id number] NAIL, 1-5 06/16/2012 31216-DCRHIBF NAIL, 1-5 03/19/2023 [id number]-Pqmflxmm Plate 03/09/2015 [id number]-Wxlcdyro Plate 06/30/2015 14114-Hxjvfsey Plate 09/29/2015 84092-Ypsuqxvj Plate 01/23/2016 00477-Dutbverc Plate 04/26/2016 29121-Bdkwtnpw Plate Each Additional Insurance Providers Payer Name Payer Address Payer Phone Subscriber Number Group Number Insured Name Patient Relationship to Insured Coverage Start Date Coverage End Date Medicare National Govt [employer] [address] [facility] [place] [address] [id number] Tonia Hernandez Self - patient is the insured [employer] [address] [place] [address] [id number] Tonia Hernandez Self - patient is the [...]
== END 2024-05-05 13:35 | disposition home or self-care (01) ==
LOC: HO.HMCSH 12:57
PROVIDERS: PCP Internal Medicine; Visit Provider Internal Medicine
DX: I10 Essential (primary) hypertension (principal); I50.20 Unspecified systolic (congestive) heart failure; I34.0 Nonrheumatic mitral (valve) insufficiency; D46.9 Myelodysplastic syndrome, unspecified; C50.911 Malignant neoplasm of unspecified site of right female breast

== ENCOUNTER → 2024-05-05 12:57 | Outpatient (BNVA) | payer MEDICARE, SELFPAY | PROVIDERS: PCP Internal Medicine; Visit Provider Internal Medicine | DX: I11.0 Hypertensive heart disease with heart failure (principal); I50.20 Unspecified systolic (congestive) heart failure; I34.0 Nonrheumatic mitral (valve) insufficiency; D46.9 Myelodysplastic syndrome, unspecified; C50.911 Malignant neoplasm of unspecified site of right female breast | CPT/HCPCS: 99202 ==

== ENCOUNTER 2024-06-26 12:42 | Inpatient (IN) | payer MEDICARE, SELFPAY ==
[2024-06-26] VITALS (7 sets, daily range): BP systolic 77–145; BP diastolic 43–76; PULSE 51–76; RESP 14–16; TEMP 36.4–37.2; O2SAT 93–97; BMI 22.7
--- NOTE | 2024-06-26 | ECG_ITS ---
Test Reason : near syncope Blood Pressure : */* mmHG Vent. Rate : 57 BPM Atrial Rate : 57 BPM P-R Int : 212 ms QRS Dur : 104 ms QT Int : 552 ms P-R-T Axes : 68 -22 5 degrees QTcB Int : 537 ms Sinus bradycardia with 1st degree A-V block Cannot rule out Anterior infarct (cited on or before 26-Jun-2024) Prolonged QT Abnormal ECG When compared with ECG of 26-Jun-2024 13:57, No significant change was found Referred By: Zaira Waddell Electronically Signed By: LINDSAY TAVAREZ MD
--- NOTE | ~2024-06-26 | CT_ITS ---
EXAMINATION: CT ABDOMEN AND PELVIS WITH CONTRAST CLINICAL INFORMATION: Abdominal pain COMPARISON: PET CT 02/09/2016 TECHNIQUE: Multidetector volumetric images were obtained from the superior aspect of the liver through the pubic symphysis following administration 85 mL of Omnipaque 350 intravenous contrast. Sagittal and coronal reformatted images were obtained on the technologist's workstation. Oral contrast: No This CT examination was performed using dose optimization techniques as appropriate, variously including the following: *Automated exposure control *Adjustment of mA and/or kV according to patient size (this includes techniques or standardized protocols for targeted exams where dose is matched to indication/reason for exam; i.e. extremities or head) *Use of iterative reconstruction technique DLP: 515 mGy/cm. FINDINGS: LUNG BASES: There is mild left basilar atelectatic changes. The heart size is normal. There is a small pericardial effusion seen. LIVER, GALLBLADDER, AND BILIARY TREE: The liver is normal in size, shape, and attenuation. No focal hepatic lesion or biliary ductal dilatation is present. The gallbladder is nonvisualized common hepatic duct measures 1.7 cm and common bile duct measures 8 mm. PANCREAS: There is a 1.1 cm cyst in the body of pancreas measuring 5 Hounsfield units. Rest the pancreas is unremarkable. The peripancreatic fat borders are preserved. SPLEEN: Unremarkable. ADRENAL GLANDS: Unremarkable. KIDNEYS AND URETERS: The kidneys are normal in size, shape, and attenuation. There is diffuse thinning of kidney cortical cysts from age. There is a large complex calcified wall cyst measuring 6.0 x 5.15 cm with adjacent smaller daughter cyst measuring 2 cm. No radiopaque calculi seen. There is bilateral perinephric stranding. No hydronephrosis seen. BLADDER: Unremarkable. GASTROINTESTINAL TRACT: There is moderate stool, gas and diverticuli seen throughout the entire colon consistent constipation. There is proximal ascending and colon dilation and pericolic fat stranding and fluid collection suggestive of colitis. Diverticulitis is considered less likely. The small bowel loops are normal caliber. Appendix is normal caliber. No free air or free fluid. ABDOMINAL WALL: No significant hernia is appreciated. LYMPH NODES: No abnormal size retroperitoneal lymph nodes seen. VASCULAR: Mild atherosclerotic changes of the abdominal aorta without aneurysmal dilatation. PELVIC VISCERA: The uterus is anteverted and appears unremarkable. OSSEOUS STRUCTURES: There is loss of disc height with vacuum disc phenomena and ventral spondylosis from L1-2 through L5-S1 disc levels. No visible acute fracture or lytic process seen. CT/CT abdomen pelvis w IV con IMPRESSION: Moderate to significant constipation with diffuse diverticulosis. There is fat stranding and pericolic fluid along the descending and sigmoid colon suggestive of colitis. Diverticulitis is considered less likely. No free air visualized.. No evidence of abscess. Bilateral renal cysts with a complex large 6 cm cyst mid to lower pole right kidney. No radiopaque calculi or hydronephrosis seen. 1.1 cm pancreatic cyst, new since last PET/CT skull exam 02/09/2016. Consider 6 month follow-up Fleischner guidelines were followed. Electronically signed by: Azam Hanley MD 06/26/2024 05:03 PM [facility]
--- NOTE | ~2024-06-26 | XR_ITS ---
EXAMINATION: XR CHEST CLINICAL INFORMATION: Near syncope COMPARISON: CT angiogram chest 12/13/2023 TECHNIQUE: 2 views of the chest were obtained. FINDINGS: The lungs are hypoexpanded but clear. Heart size enlarged. Pulmonary vascularity is normal. No gross bony abnormality seen. XR/XR chest 2V IMPRESSION: Hypoexpanded lungs without acute process. Electronically signed by: Azam Hanley MD 06/26/2024 03:50 PM [facility] [place]
--- NOTE | 2024-06-26 13:06 | ED.GENADULT ---
HPI - General Adult General Chief complaint: Syncope Stated complaint: WEAKNESS, HX OF ANEMIA PER EMS History of Present Illness ED Provider: Dr. Waddell HPI narrative: 78 y/o F patient; PMH chronic anemia/hereditary spherocytosis, hypothyroidism, CAD, HLD, HTN, HFrEF, T2DM, right breast cancer s/p lumpectomy, CKD presents from home reporting increased fatigue and generalized weakness. She states today she was straining to have a bowel movement when she had an episode of near loss of consciousness. She did not fall or have head strike. She endorses approx 3 days of constipation that significantly worsened today. She denies: chest pain, SOB, cough/congestion, nausea/vomiting, fever or chills. Global Mobility Specialist: Dr. Tse While in the emergency department she did have one episode of NBNB nausea/vomiting while straining to have bowel movement. She also declined to use bed snyder and continued to try to use commode having a second near loss of consciousness while in the emergency department. Related Data Home Medications ?Medication ?Instructions ?Recorded ?Confirmed aspirin 81 mg tablet,delayed 81 mg PO DAILY 02/29/20 05/05/24 release cholecalciferol (vitamin D3) 50 50 mcg PO DAILY 02/29/20 05/05/24 mcg (2,000 unit) tablet (Vitamin D3) cyanocobalamin (vitamin B-12) 5,000 mcg PO DAILY 02/29/20 05/05/24 5,000 mcg disintegrating tablet folic acid 1 mg tablet 1 mg PO DAILY 02/29/20 05/05/24 vitamin E 400 unit tablet 450 mg PO DAILY 02/29/20 05/05/24 cranberry 500 mg capsule 500 mg PO DAILY 11/20/22 05/05/24 ascorbic acid (vitamin C) 500 mg 500 mg PO DAILY 09/23/23 05/05/24 tablet (Vitamin C) calcium carbonate (Calcium 600) 600 mg PO DAILY 09/23/23 05/05/24 Previous Rx's ?Medication ?Instructions ?Recorded bumetanide 1 mg tablet 2 mg PO DAILY 90 days #180 tabs 01/14/24 hydralazine 25 mg tablet 25 mg PO BID 90 days #180 tabs 01/14/24 allopurinol 300 mg tablet 300 mg PO DAILY #90 tabs 04/28/24 clopidogrel 75 mg tablet 75 mg PO DAILY 90 days #90 tabs 05/05/24 carvedilol 6.25 mg tablet 6.25 mg PO BID 90 days #180 tabs 05/06/24 levothyroxine 100 mcg tablet 100 mcg PO DORISSA@0600 90 days 05/06/24 #65 tabs rosuvastatin 20 mg tablet 20 mg PO DAILY 90 days #90 tabs 05/06/24 Allergies Allergy/AdvReac Type Severity Reaction Status Date / Time esomeprazole [From NEXIUM] Allergy Intermediate CHEST PAIN Verified 06/26/24 13:25 omeprazole [From PRILOSEC] Allergy Intermediate CHEST PAIN Verified 06/26/24 13:25 diphenhydramine Allergy Dizziness Verified 06/26/24 13:25 [From Benadryl] Review of Systems Review of Systems: Yes all other systems are reviewed and are negative [facility] Past Medical History Attestation statement: The following information was validated with the patient. Source: old records reviewed Medical History CAD (coronary artery disease) CHF (congestive heart failure) Cervix prolapsed into vagina History of blood transfusion (~02/01/23) Diabetes mellitus HFrEF (heart failure with reduced ejection fraction) Cardiomyopathy Normal colonoscopy Type 2 diabetes mellitus Diverticulosis Irritable bowel syndrome Pulmonary emboli GERD (gastroesophageal reflux disease) Nephrolithiasis Hypoparathyroidism Papillary thyroid carcinoma HTN (hypertension) Polymyalgia rheumatica Hyperglycemia Chronic anemia Anemia Surgical History Stented coronary artery Breast mass, right H/O endoscopy History of cholecystectomy H/O total thyroidectomy Family History Family History Sister CHF (congestive heart failure) Daughter Breast cancer Son Kidney stones Social History Social History Household Members: Family Household Members Other:: son Housing: House Do you presently have visiting nurse or other home services: No Alcohol intake: never Comment: Pt refuses fall risk protocol/ precautions- ambulates with steady gait Patient Tobacco Use Status: Never used Tobacco Years Smoked: 30 +/- e-Cigarette/Vaping Use: Never Used Second Hand Smoke Exposure: No Advance Directives: Yes Advance Directives Information Provided: No Advance Directives on File: No Do you have a plan to hurt others: No Plan service: No Current occupational status: retired Current occupation: Right Handed Physical Exam ED Vital Signs: Vital Signs - 24 hr 06/26/24 13:38 06/26/24 14:16 06/26/24 15:15 Temperature 97.5 F 97.7 F Pulse Rate 65 51 53 Respiratory Rate 16 16 16 Blood Pressure 100/54 L 77/43 L 137/63 Pulse Oximetry 96 93 95 Oxygen Delivery Method Room Air Room Air Room Air BMI result Body Mass Index 22.7 Patient is afebrile and hemodynamically stable Const General: cooperative HENMT Head: Yes normal to inspection and Yes atraumatic Eyes General: appearance normal, both eyes and all related structures Pupils: Equal, round and reactive pupils present EOM: EOMs intact bilaterally Neck Neck: Yes normal visual inspection, Yes full ROM, Yes supple and No tender Chest Chest palpation & inspection: normal inspection of the chest and normal palpation of entire chest wall Resp Effort & Inspection: normal respiratory effort, able to speak in complete sentences, no cough and no respiratory distress Auscultation: clear to auscultation bilaterally Cardio Rate: regular rate Rhythm: regular rhythm Peripheral pulses: Peripheral pulses 2+ throughout GI Other: LLQ abdominal tenderness without rebound or guarding Auscultation: normal bowel sounds Back/Spine/Pelvis Back: No back tenderness Neuro Cranial nerves: Yes Equal, round and reactive pupils present Course Course Course Narrative: Patient is afebrile and hemodynamically stable. EKG obtained on patient's arrival and again following near syncopal episode in the emergency department. Initial EKG: NSR 60BPM with QTc 516 Repeat EKG: NSR 57BPM with IA 212, QTc 537 I provided empiric magnesium 2g IV and calcium gluconate 1g IV. Provided 500cc IVF, limited IVF due to known HFrEF. Patient taken emergently to the CT scanner. Labs reviewed. Leukocytosis 11.9 with left shift. Hgb 8.1, baseline. Cr 1.83. Troponin 15.4. Repeat ordered. BNP 1299 CXR with hypo-expanded lungs without focal consolidation. Reevaluation(s) Reevaluation #1: CT Abdomen/Pelvis with moderate to significant constipation with diffuse diverticuliosis. Fat stranding and pericolic fluid along the descending and sigmoid colon. Will start with Lactulose 20mg, Miralax, and Glycerin enema. 2nd troponin 13.5. I do think patient needs admission for extensive bowel regimen given the fact that she vasovagals when she uses the bathroom. Prior to receiving the bowel regimen medications, the patient started to have multiple episodes of diarrhea. Constipation medications were cancelled. Plan: Admit to hospitalist Condition: Stable Medications Administered Discontinued Medications Generic Name Dose Route Start Last Admin Trade Name Freq PRN Reason Stop Dose Admin Glycerin 1 supp 06/26/24 17:09 06/26/24 17:46 Glycerin Adult Supp.Rect IA 06/26/24 17:10 Not Given ONCE ONE Magnesium Sulfate 2 gm in 50 mls @ 150 mls/hr 06/26/24 14:26 06/26/24 14:56 Magnesium Sulfate/H2o IV 06/26/24 14:45 Infused ONCE ONE Infusion Calcium Gluconate 1 gm in 50 mls @ 200 mls/hr 06/26/24 14:26 06/26/24 14:56 Calcium Gluconate IV 06/26/24 14:40 Infused ONCE ONE Infusion Iohexol 100 ml 06/26/24 15:43 06/26/24 15:44 Iohexol 350 Mg/Ml 100 Ml Infus..Btl IV 06/26/24 15:44 85 ml ONCE ONE Administration Lactulose 20 gm 06/26/24 17:09 06/26/24 17:46 Lactulose 20 Gm/30 Ml Solution PO 06/26/24 17:10 Not Given ONCE ONE Polyethylene Glycol 17 gm 06/26/24 17:09 06/26/24 17:46 Polyethylene Glycol 3350 17 Gm Powd.Pack PO 06/26/24 17:10 Not Given ONCE ONE Medical Decision Making Lab Data 06/26/24 13:58 06/26/24 13:58 Labs: Lab Results 06/26/24 06/26/24 Range/Units 13:58 16:56 WBC 11.9 H (4.8-10.8) X10*3/uL RBC 2.21 L (4.20-5.50) X10*6/uL Hgb 8.1 L (12.0-16.0) g/dl Hct 24.0 L (37.0-47.0) % MCV 108.6 H (80.0-98.0) fL MCH 36.7 H (27.0-33.0) pg MCHC 33.8 (31.0-35.0) g/dl RDW 13.5 (11.0-16.0) % Plt Count 170 (160-400) X10*3/uL MPV 9.0 L (9.4-12.3) fL Immature Gran % (Auto) 0.6 H (0.0-0.4) % Neut % (Auto) 81.6 H (45-73) % Lymph % (Auto) 9.2 L (20-40) % [place] % (Auto) 6.3 (2-11) % Eos % (Auto) 1.9 (0-4) % Baso % (Auto) 0.4 (0-2) % Lymph # (Auto) 1.1 L (1.2-4.9) X10*3/uL [place] # (Auto) 0.8 (0.1-1.2) X10*3/uL Eos # (Auto) 0.2 (0.0-0.4) X10*3/uL Baso # (Auto) 0.1 (0.0-0.2) X10*3/uL Abs Immat Gran (auto) 0.07 H (0.00-0.03) X10*3/uL Absolute Neuts (auto) 9.7 H (2.0-8.3) x10*3/uL Absolute Nucleated RBC 0.000 (0.0-0.012) X10*3/uL Nucleated RBC % (auto) 0.0 (0.0-0.2) /100WBC Sodium 142 (135-145) mmol/L Potassium 3.8 (3.3-5.1) mmol/L Chloride 106 (96-108) mmol/L Carbon Dioxide 26 (22-29) mmol/L Anion Gap 14 (12-20) BUN 38 H (9-16) mg/dL Creatinine 1.83 H (0.5-1.4) mg/dL Estim Creat Clear Calc 19.4 Estimated GFR 27 Random Glucose 214 H (60-115) mg/dL Calcium 9.1 (8.4-10.2) mg/dL Total Bilirubin 0.7 (0.0-1.0) mg/dL Direct Bilirubin 0.2 (0.0-0.5) mg/dL AST 19 (5-31) U/L ALT 10 (0-31) U/L Alkaline Phosphatase 95 (39-117) U/L Troponin I High Sens 15.4 D 13.7 (<3.5-17.0) ng/L B-Natriuretic Peptide 1299 H (<100) pg/mL Total Protein 7.0 (6.5-8.0) g/dL Albumin 3.7 (3.5-5.0) g/dL Lipase 43 (8-78) U/L Influenza Type A (PCR) NEGATIVE (Negative) Influenza Type B (PCR) NEGATIVE (Negative) RSV RNA Qual (PCR) NEGATIVE (Negative) SARS-CoV-2 RNA (RT-PCR) NEGATIVE (Negative) Independent Interpretation I performed an independent interpretation of an: EKG Interpretation: NSR 60BPM without ischemic changes Radiology Impression Discussion of test interpretation with radiology: I have reviewed the radiologist's reading. Radiologist Impression: EXAMINATION: XR CHEST CLINICAL INFORMATION: Near syncope COMPARISON: CT angiogram chest 12/13/2023 TECHNIQUE: 2 views of the chest were obtained. FINDINGS: The lungs are hypoexpanded but clear. Heart size enlarged. Pulmonary vascularity is normal. No gross bony abnormality seen. XR/XR chest 2V IMPRESSION: Hypoexpanded lungs without acute process. Electronically signed by: Azam Hanley MD 06/26/2024 03:50 PM [facility] Report Number: [id number]: Total DLP = 515.00 mGy-cm EXAMINATION: CT ABDOMEN AND PELVIS WITH CONTRAST CLINICAL INFORMATION: Abdominal pain COMPARISON: PET CT 02/09/2016 TECHNIQUE: Multidetector volumetric images were obtained from the superior aspect of the liver through the pubic symphysis following administration 85 mL of Omnipaque 350 intravenous contrast. Sagittal and coronal reformatted images were obtained on the technologist's workstation. Oral contrast: No This CT examination was performed using dose optimization techniques as appropriate, variously including the following: *Automated exposure control *Adjustment of mA and/or kV according to patient size (this includes techniques or standardized protocols for targeted exams where dose is matched to indication/reason for exam; i.e. extremities or head) *Use of iterative reconstruction technique DLP: 515 mGy/cm. FINDINGS: LUNG BASES: There is mild left basilar atelectatic changes. The heart size is normal. There is a small pericardial effusion seen. LIVER, GALLBLADDER, AND BILIARY TREE: The liver is normal in size, shape, and attenuation. No focal hepatic lesion or biliary ductal dilatation is present. The gallbladder is nonvisualized common hepatic duct measures 1.7 cm and common bile duct measures 8 mm. PANCREAS: There is a 1.1 cm cyst in the body of pancreas measuring 5 Hounsfield units. Rest the pancreas is unremarkable. The peripancreatic fat borders are preserved. SPLEEN: Unremarkable. ADRENAL GLANDS: Unremarkable. KIDNEYS AND URETERS: The kidneys are normal in size, shape, and attenuation. There is diffuse thinning of kidney cortical cysts from age. There is a large complex calcified wall cyst measuring 6.0 x 5.15 cm with adjacent smaller daughter cyst measuring 2 cm. No radiopaque calculi seen. There is bilateral perinephric stranding. No hydronephrosis seen. BLADDER: Unremarkable. GASTROINTESTINAL TRACT: There is moderate stool, gas and diverticuli seen throughout the entire colon consistent constipation. There is proximal ascending and colon dilation and pericolic fat stranding and fluid collection suggestive of colitis. Diverticulitis is considered less likely. The small bowel loops are normal caliber. Appendix is normal caliber. No free air or free fluid. ABDOMINAL WALL: No significant hernia is appreciated. LYMPH NODES: No abnormal size retroperitoneal lymph nodes seen. VASCULAR: Mild atherosclerotic changes of the abdominal aorta without aneurysmal dilatation. PELVIC VISCERA: The uterus is anteverted and appears unremarkable. OSSEOUS STRUCTURES: There is loss of disc height with vacuum disc phenomena and ventral spondylosis from L1-2 through L5-S1 disc levels. No visible acute fracture or lytic process seen. CT/CT abdomen pelvis w IV con IMPRESSION: Moderate to significant constipation with diffuse diverticulosis. There is fat stranding and pericolic fluid along the descending and sigmoid colon suggestive of colitis. Diverticulitis is considered less likely. No free air visualized.. No evidence of abscess. Bilateral renal cysts with a complex large 6 cm cyst mid to lower pole right kidney. No radiopaque calculi or hydronephrosis seen. 1.1 cm pancreatic cyst, new since last PET/CT skull exam 02/09/2016. Consider 6 month follow-up Fleischner guidelines were followed. Electronically signed by: Azam Hanley MD 06/26/2024 05:03 PM EST Discharge Plan Discharge Clinical Impression: Constipation, Syncope Patient Disposition: Admitted As Inpatient Print Language: Faroese
--- NOTE | 2024-06-26 13:11 | ECG_ITS ---
Test Reason : screening Blood Pressure : */* mmHG Vent. Rate : 60 BPM Atrial Rate : 60 BPM P-R Int : 194 ms QRS Dur : 96 ms QT Int : 516 ms P-R-T Axes : 44 -22 10 degrees QTcB Int : 516 ms Normal sinus rhythm Cannot rule out Anterior infarct , age undetermined Abnormal ECG When compared with ECG of 13-Dec-2023 12:45, Nonspecific T wave abnormality now evident in Inferior leads Nonspecific T wave abnormality no longer evident in Lateral leads Referred By: Zaira Waddell Electronically Signed By: LINDSAY TAVAREZ MD
--- NOTE | 2024-06-26 14:00 | PC.NURSE ---
biba from home c/o near syncopal episode while trying to have a BM. pt reports being constipated x saturday. denies n/v/abd pain/fever/chills. family reports decreased responsiveness/diaphoretic upon arrival to house. hx anemia - follows w/ dr. mathis. upon ED arrival - a&ox4. vss and up to date. delay in care d/t pt continuously going to the bathroom/attempting to have a BM. unsuccessful x 5 times. pt eventually transitioned to 22H to bed 1. nsr on the line cleaner. 20gIV in the left AC via EMS - patent/intact. labs/ekg obtained by tech. pt currently reporting generalized nonradiating abd pain w/ associated nausea/vomiting. nonbloody. pt reports constipation x saturday. abd distention noted. commode placed bedside for assistance. pt currently on RA w/o difficulty. no sob/wob noted. respirations even/unlabored. plan of care ongoing.
[2024-06-26 14:03] LABS: MANUAL DIFF FLAG NO
[2024-06-26 14:06] LABS: Basophils Absolute Auto 0.1 X10*3/uL (0.0-0.2); Basophils Percent Auto 0.4 % (0-2); Eosinophils Absolute Auto 0.2 X10*3/uL (0.0-0.4); Eosinophils Percent Auto 1.9 % (0-4); Hemoglobin 8.1 g/dl (12.0-16.0); Imm Gran Abs Auto 0.07 X10*3/uL (0.00-0.03); Imm Gran Pct Auto 0.6 % (0.0-0.4); Lymphocytes Absolute Auto 1.1 X10*3/uL (1.2-4.9); Lymphocytes Percent Auto 9.2 % (20-40); Mean Corpuscular HGB Conc 33.8 g/dl (31.0-35.0); Mean Corpuscular Hemoglobin 36.7 pg (27.0-33.0); Mean Corpuscular Volume 108.6 fL (80.0-98.0); Monocytes Absolute Auto 0.8 X10*3/uL (0.1-1.2); Monocytes Percent Auto 6.3 % (2-11); Neutrophils Absolute Auto 9.7 x10*3/uL (2.0-8.3); Neutrophils Percent Auto 81.6 % (45-73); Platelet Count 170 X10*3/uL (160-400); Red Blood Count 2.21 X10*6/uL (4.20-5.50); Red Cell Distribution Width 13.5 % (11.0-16.0); White Blood Count 11.9 X10*3/uL (4.8-10.8)
[2024-06-26 14:19] LABS: Lipase 43 U/L (8-78)
[2024-06-26 14:22] LABS: Alanine Aminotransferase 10 U/L (0-31); Albumin Level 3.7 g/dL (3.5-5.0); Alkaline Phosphatase 95 U/L (39-117); Anion Gap 14 (12-20); Aspartate Amino Transferase 19 U/L (5-31); Bilirubin Direct 0.2 mg/dL (0.0-0.5); Bilirubin Total 0.7 mg/dL (0.0-1.0); Blood Urea Nitrogen 38 mg/dL (9-16); Calcium 9.1 mg/dL (8.4-10.2); Carbon Dioxide 26 mmol/L (22-29); Chloride 106 mmol/L (96-108); Creatinine Clr Calc Pharmacy 19.4; Estimated Glomerular Filt Rate 27; Glucose Random 214 mg/dL (60-115); Potassium 3.8 mmol/L (3.3-5.1); Sodium 142 mmol/L (135-145)
[2024-06-26 14:29] LABS: Troponin-I High Sensitivity 15.4 ng/L (<3.5-17.0)
[2024-06-26] MEDS: Magnesium Sulfate/H2O 2 GM/50 ML PIGGYBACK IV (14:34)
[2024-06-26] MEDS: Calcium Gluconate/NaCl,Iso-Osm 1 GM/50 ML PLAST..BAG IV (14:34)
--- NOTE | 2024-06-26 14:34 | PC.NURSE ---
this RN called to the room for assistance by family member. upon entering the room, pt noted to be on the commode seemingly lethargic. pt responsive to verbal stimuli. speaking w/ eyes closed. reporting feeling dizzy/lightheaded. pt noted to be bradycardic/hypotensive. pt assisted back into bed. repeat ekg obtained provided to . additional 20gIV in the right wrist - IVF/medication administered per provider order. effectiveness pending. pt remains on RA w/o difficulty. no sob/wob noted. respirations even/unlabored. daughter remains bedside. plan of care ongoing. call cuenca placed within reach.
[2024-06-26 14:40] LABS: B Type Natriuretic Peptide 1299 pg/mL (<100)
[2024-06-26 14:51] LABS: Influenza A PCR NEGATIVE (Negative); Influenza B PCR NEGATIVE (Negative); Resp Syncy Virus RNA Qual PCR NEGATIVE (Negative); SARS COV2 PCR INHOUSE NEGATIVE (Negative)
[2024-06-26] MEDS: iohexoL 350 MG/ML 100 ML INFUS..BTL IV (15:44)
--- OUTSIDE RECORDS SUMMARY | 2024-06-26 16:29 | XMS_ITS | Encounter Summary ---
Author Organization [facility] Address [address] [address] Phone Care Team Providers Care Manager Of School Name Role Phone John Avina DO Primary Care Provider Encounter Details Date Type Department Care Team (Late st Contact Info) Description 04/23/2024 Office Communication [facility] [address] [address] Mejia Soler MD [address] [address] Social History Tobacco Use Types Packs/Day Years Used Date Smoking Tobacco: Never Assessed Comments Unknown Sex and Gender Information Value Date Recorded Sex Assigned at Not on file Legal Sex Female 4:53 PM EST Gender Identity Not on file Sexual Orientation Not on file documented as of this encounter Miscellaneous Notes * Telephone Encounter - Mejia Soler MD - 04/23/2024 6:14 PM EST Be sure to fax muy note to Her PCP Fabrice Tse at [facility] --Heme/Onc And PVU Ask PVU fpr there last office notes and prior U/S and CT of kidneys documented in this encounter Plan of Treatment Upcoming Encounters Date Type Department Care Team (Late st Contact Info) Description 07/16/2024 2:15 PM EDT Office Visit [facility] [address] [place] [address] Mejia Soler MD [address] [address] documented as of this encounter Visit Diagnoses Not on filedocumented in this encounter Care Teams Manager Of School Relationship Specialty Start Date End Date John Avina DO [address] [place] [address] PCP - General Internal Medicine 10/23/23 documented as of this encounter
--- OUTSIDE RECORDS SUMMARY | 2024-06-26 16:29 | XMS_ITS | Encounter Summary ---
Author Organization [facility] Address [address] [place] [address] Care Team Providers Care Personnel Worker Name Role Phone John Avina DO Primary Care Provider [phone] Encounter Details Date Type Department Care Team (Late st Contact Info) Description 06/10/2024 Lab Requisition [facility] - Main Lab [address] [facility] [place] [address] Arianna Iraheta PA [address] [place], [place] [id number] Dysuria Social History Tobacco Use Types Packs/Day Years Used Date Smoking Tobacco: Never Assessed Comments Unknown Sex and Gender Information Value Date Recorded Sex Assigned at Not on file Legal Sex Female 6:11 PM EST Gender Identity Not on file Sexual Orientation Not on file documented as of this encounter Plan of Treatment Not on file documented as of this encounter Procedures Procedure Name Priority Date/Time Associated Diagnosis Comments CULTURE URINE Routine 06/10/2024 12:00 AM EST Dysuria documented in this encounter Results * (ABNORMAL) Culture urine (06/10/2024 12:00 AM EST) Culture, Urine >100,000 CFU/mL Klebsiella pneumoniae ssp pneumoniae(A) RIC 06/12/2024 11:01 AM EST [facility] Comment: This is an edited result. Previous organism was Gram negative bacilli on 06/11/2024 at 1338 EST. Urine Urine specimen obtained by clean catch procedure / Unknown 06/10/2024 06/10/2024 6:22 PM EST Narrative Organism Antibiotic Method Susceptibility Klebsiella pneumoniae ssp pneumoniae Amoxicillin/Clavulanate RIC <=2 ug/ml: Susceptible Klebsiella pneumoniae ssp pneumoniae Ampicillin/Sulbactam RIC 4 ug/ml: Susceptible Klebsiella pneumoniae ssp pneumoniae Piperacillin/Tazobactam RIC <=4 ug/ml: Susceptible Klebsiella pneumoniae ssp pneumoniae Cefazolin (Urine) RIC 2 ug/ml: Susceptible Klebsiella pneumoniae ssp pneumoniae Cefoxitin RIC <=4 ug/ml: Susceptible Klebsiella pneumoniae ssp pneumoniae Ceftazidime RIC <=0.5 ug/ml: Susceptible Klebsiella pneumoniae ssp pneumoniae Ceftriaxone RIC <=0.25 ug/ml: Susceptible Klebsiella pneumoniae ssp pneumoniae Cefepime RIC <=0.12 ug/ml: Susceptible Klebsiella pneumoniae ssp pneumoniae Meropenem RIC <=0.25 ug/ml: Susceptible Klebsiella pneumoniae ssp pneumoniae Amikacin RIC <=1 ug/ml: Susceptible Klebsiella pneumoniae ssp pneumoniae Gentamicin RIC <=1 ug/ml: Susceptible Klebsiella pneumoniae ssp pneumoniae Ciprofloxacin RIC <=0.06 ug/ml: Susceptible Klebsiella pneumoniae ssp pneumoniae Levofloxacin RIC <=0.12 ug/ml: Susceptible Klebsiella pneumoniae ssp pneumoniae Nitrofurantoin RIC 64 ug/ml: Intermediate Klebsiella pneumoniae ssp pneumoniae Trimethoprim/Sulfamethoxazo le RIC <=20 ug/ml: Susceptible us Arianna [facility] MICROBIOLOGY - GENERAL ORD ERABLES Final Result [facility] [address] [place] [address], documented in this encounter Visit Diagnoses Diagnosis Dysuria documented in this encounter Care Teams Personnel Worker Relationship Specialty Start Date End Date John Avina DO [address] [place] [phone] PCP - General Internal Medicine 06/10/24 documented as of this encounter
--- OUTSIDE RECORDS SUMMARY | 2024-06-26 16:29 | XMS_ITS ---
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 Generated for Printi favian/Vernong/eTransmitting on:?06/26/2024 04:29 PM EST
--- OUTSIDE RECORDS SUMMARY | 2024-06-26 16:29 | XMS_ITS | Patient Health Record ---
Author Organization [facility] Address [address] [place] [address] Care Team Providers Care Tool Operator Name Role Phone John Avina MD Primary Care Provider Unavail able Raf Pink Unavailable [phone] Allergies Allergen (clinical drug ingredient) Drug/Non Drug [...] Problem Status W/U Status Risk Notes Problem [id number] Tinea unguium (B35.1) Active confirmed Plan Of Treatment Pending Test Test Name Order Date X ray : Foot, left 3V 06/16/2012 [id number] NAIL, 1-5 07/28/2012 [id number] NAIL, 1-5 10/15/2012 [id number] NAIL, 1-5 06/16/2012 [id number] NAIL, 1-5 03/19/2023 [id number] Plate 03/09/2015 [id number] Plate 06/30/2015 [id number] Plate 09/29/2015 [id number] Plate 01/23/2016 [id number] Plate 04/26/2016 [id number] Plate Each Additional Insurance Providers Payer Name Payer Address Payer Phone Subscriber Number Group Number Insured Name Patient Relationship to Insured Coverage Start Date Coverage End Date Medicare National Govt [employer] [address] [facility] [address] [id number] Tonia Hernandez Self - patient is the insured [employer] [address] [place] [address] [id number] Tonia Hrenandez Self - patient is the insured Medical [...]
--- OUTSIDE RECORDS SUMMARY | 2024-06-26 16:30 | XMS_ITS ---
Author Organization [facility] Address [address] [place] [address] Care Team Providers Care Network Field Engineer Name Role Phone Fabrice ALVAREZ, John Primary Care Provider Unavail able Raf Pink Unavailable [phone] Eyal Choe Unavailable [phone] REASON FOR VISIT misbooked Encounters Encounter Location Date Provider Diagnosis [facility] [address] [place] [address] 02/07/2023 Eyal Choe Plan Of Treatment No Information Progress Notes * Tonia HERNANDEZ RDOB:1945 (78 yo F)Acc No.[id number]:02/07/2023 Progress Notes Patient:?Tonia HERNANDEZ Provider:?Eyal Choe DPM :1945???Age:77 Y???Sex:Female D ate:02/07/2023 Address:[address] [place] [id number] Pcp:John Avina MD Subjective: * Chief Complaints: [...] DPM Date:? 023 Generated for Med ballesteros/Caryl/Deniseitting on:?06/26/2024 04:30 PM EST
--- OUTSIDE RECORDS SUMMARY | 2024-06-26 16:30 | XMS_ITS | Continuity of Care Document ---
Author Organization [facility] Address [address] [facility] [place] [address]- Care Team Providers Care Manager Of Hospital Name Role Phone John Avina DO Primary Care Physician [phone] Encounter 06/10/24 - 06/17/24 [facility] [address], [address] [place], [place] [address] Attending Physician: Arianna Panchal Admitting Physician: Arianna Panchal Referring Physician: Arianna Panchal Encounter Type: OutPatient One Time Allergies, Adverse Reactions, Alerts Substance Criticality Severity Reaction Reaction Severity Status Benadryl 1 Active NexIUM heart palpitations A ctive PriLOSEC heart palpitations A ctive 1IV benadryl causes significant delirium. PO tablet okay per patient Medications allopurinol 300 mg oral tablet 300 mg, 1, tablet, By Mouth, Daily before lunch, # 30 tablet, Refills 0, Maintenance, 12/17/17 2:42:18 PM EDT Start Date: 12/17/17 Status: Ordered Quantity: 30.0 Unit: tablet Repeat number: 1 aspirin 81 mg oral tablet 1 tablet = 81 mg, By Mouth, Daily, # 30 tablet, 0 Refills, Maintenance, 04/17/18 2:46:07 PM EST, Tablet Start Date: 04/17/18 Status: Ordered Quantity: 30.0 Unit: tablet Repeat number: 1 Bumetanide Daily, 0 Refills, Maintenance, 01/31/24 11:45:00 AM EDT, Partial fill upon patient request if the prescription is for a schedule II opioid drug. Start Date: 01/31/24 Status: Ordered Repeat number: 1 Bumetanide Daily, 0 Refills, Maintenance, 01/31/24 11:46:00 AM EDT, Partial fill upon patient request if the prescription is for a schedule II opioid drug. Start Date: 01/31/24 Status: Ordered Repeat number: 1 calcium carbonate 600 mg oral tablet 1 tablet = 600 mg, By Mouth, Daily, 0 Refills, Maintenance, 01/20/18 6:43:30 AM EDT Start Date: 01/20/18 Status: Ordered Repeat number: 1 carvedilol 3.125 mg oral tablet 6.25 mg, 2, tablet, By Mouth, 2 times a day, # 60 tablet, Refills 0, Maintenance, 12/17/17 2:43:32 PM EDT Start Date: 12/17/17 Status: Ordered Quantity: 60.0 Unit: tablet Repeat number: 1 clopidogrel 75 mg oral tablet 75 mg, By Mouth, Daily, # 90 tablet, Refills 3, Tot. Refills 3, Maintenance, 09/19/23 4:28:00 PM EDT, Route to Pharmacy Electronically, [facility], Partial fill upon patient request if the prescription is for a schedule II opioid drug., 154, cm, 09/19/23 14:14:00 EDT, Height, 60.4, kg,09/19/23 14:14:00 EDT, Dry Weight Start Date: 09/19/23 Stop Date: 09/13/24 Status: Ordered Quantity: 90.0 Unit: tablet Repeat number: 4 Cranberry 0 Refills, Maintenance, 01/18/23 10:47:00 AM EDT, Partial fill upon patient request if the prescription is for a schedule II opioid drug. Start Date: 01/18/23 Status: Ordered Repeat number: 1 Crestor 20 mg oral tablet 1 tablet = 20 mg, By Mouth, Daily before lunch, # 30 tablet, 0 Refills, Maintenance, 08/14/18 1:09:58 PM EDT, Tablet Start Date: 08/14/18 Status: Ordered Quantity: 30.0 Unit: tablet Repeat number: 1 D-Manouse D-Manouse, 0 Refills, Maintenance, for uti prevention, 07/09/23 11:01:00 AM EDT Start Date: 07/09/23 Status: Ordered Repeat number: 1 folic acid 1 mg oral tablet 1 mg, 1, tablet, By Mouth, Daily, # 30 tablet, Refills 0, Maintenance, 12/17/17 2:43:56 PM EDT Start Date: 12/17/17 Status: Ordered Quantity: 30.0 Unit: tablet Repeat number: 1 furosemide 20 mg oral tablet 20 mg, 1, tablet, By Mouth, Daily in AM, Refills 0, Maintenance, 12/17/17 2:43:16 PM EDT Start Date: 12/17/17 Status: Ordered Repeat number: 1 gabapentin 300 mg oral capsule 300 mg, 1, capsule, By Mouth, Daily at bedtime, Refills 0, Maintenance, 03/26/18 8:49:45 AM EST Start Date: 03/26/18 Status: Ordered Repeat number: 1 hydrALAZINE 0 Refills, Maintenance, 01/31/24 11:46:00 AM EDT, Partial fill upon patient request if the prescription is for a schedule II opioid drug. Start Date: 01/31/24 Status: Ordered Repeat number: 1 Levoxyl 0.1 mg oral tablet 0.1 mg, 1, tablet, By Mouth, Daily, # 90 each, 2 Refills, Soft Stop Start Date: 09/02/08 Stop Date: 10/02/08 Status: Ordered Quantity: 90.0 Unit: each Repeat number: 3 Metformin = 500 mg, By Mouth, 2 times a day, 0 Refills, Maintenance, 01/18/23 10:46:00 AM EDT, Partial fill upon patient request if the prescription is for a schedule II opioid drug. Start Date: 01/18/23 Status: Ordered Repeat number: 1 ondansetron 4 mg oral tablet 1 tablet = 4 mg, By Mouth, Every 8 hours, PRN Nausea & Vomiting, # 10 tablet, 0 Refills, Maintenance, 02/08/23 1:27:00 PM EDT, Tablet, [facility]/pharm[facility] #[id number], Partial fill upon patient request if theprescription is for a schedule II opioid drug., 155, cm, 01/31/23 19:46:00 EDT, Height, 60.9, kg, 01/31/23 10:53:00 EDT, Dry Weight Start Date: 02/08/23 Status: Ordered Quantity: 10.0 Unit: tablet Repeat number: 1 oxyCODONE 5 mg oral tablet 5 mg, 1, tablet, By Mouth, Every 6 hours, PRN, # 10 tablet, Refills 0, Tot. Refills 0, Maintenance,as needed for pain, 02/15/23 1:25:00 PM EDT, Route to Pharmacy Electronically, [facility]/pharmacy #[id number], Partial fill upon patient request if the prescription is for a schedule II opioid drug., 155, cm, 01/31/23 19:46:00 EDT, Height, 60.9, kg, 01/31/23 10:53:00 EDT, Dry Weight Start Date: 02/15/23 Status: Ordered Quantity: 10.0 Unit: tablet Repeat number: 1 Plavix By Mouth, 0 Refills, Maintenance, 01/31/24 11:42:00 AM EDT, Partial fill upon patient request if the prescription is for a schedule II opioid drug. Start Date: 01/31/24 Status: Ordered Repeat number: 1 valsartan 40 mg oral tablet 40 mg, 1, tablet, By Mouth, 2 times a day, # 180 tablet, Refills 0, Maintenance, 01/30/23 9:33:00 AM EDT, Partial fill upon patient request if the prescription is for a schedule II opioid drug. Start Date: 01/30/23 Status: Ordered Quantity: 180.0 Unit: tablet Repeat number: 1 Vitamin B12 0 Refills, Maintenance, 02/04/23 7:41:00 PM EDT, Partial fill upon patient request if the prescription is for a schedule II opioid drug. Start Date: 02/04/23 Status: Ordered Repeat number: 1 Vitamin C By Mouth, Daily, 0 Refills, Maintenance, 01/18/23 10:47:00 AM EDT, Partial fill upon patient requestif the prescription is for a schedule II opioid drug. Start Date: 01/18/23 Status: Ordered Repeat number: 1 Vitamin D3 oral tablet 2 tablet = 800 International_Units, By Mouth, Daily, 0 Refills, Maintenance, 01/20/18 6:41:13 AM EDT Start Date: 01/20/18 Status: Ordered Repeat number: 1 vitamin E 100 iu oral capsule 1 capsule = 100 International_Units, By Mouth, Daily, # 100 capsule, 0 Refills, Maintenance, 01/31/23 10:50:00 AM EDT, Capsule, Partial fill upon patient request if the prescription is for a scheduleII opioid drug. Start Date: 01/31/23 Status: Ordered Quantity: 100.0 Unit: capsule Repeat number: 1 Problem List Condition Confirmation Course Effective Dates Status H ealth Status Informant Chronic anemia Confirmed Active CHF (congestive heart failure) Confirmed Active HTN (hypertension) Confirmed Active Hypothyroid Confirmed Active Nephrolithiasis Confirmed Active Breast cancer, right Confirmed 2023 Active Multiple myeloma Confirmed Active Results Radiology Reports * Exam Date Time Procedure Performing Provider Status 06/10/24 3:18 PM Kast Ramón Noonan my; Auth (Verified) Notes: (Kast) Reason For Exam: Calculus of kidney RESULT: [facility] [address] [place] [address], [id number]. INDICATION / CLINICAL QUESTION: Calculus of kidney Patient Age 78 years COMPARISON: None. FINDINGS: There are a few bilateral cysts and probable cysts the largest partially exophytic off the lower pole the right kidney measuring just over 5 cm in maximal dimension. Right kidney: 10.7 cm in length. No hydronephrosis, stone, scarring or mass. Normal parenchymal thickness and echotexture. Left kidney: 10.0 cm in length containing 3 under 5 mm bright reflectors questionable for tiny calculi. No hydronephrosis, scarring or mass. Normal parenchymal thickness and echotexture. IMPRESSION: There are a few small probable left-sided renal calculi not visualized on previous CT scan. WSN: [id number] Ordering Physician: Arianna Iraheta Dictated By: Kelvin Gauthier MD Dictated Date/Time: 06/10/24 3:26 pm Reviewed By: Kelvin Gauthier MD Signed By: Kelvin Gauthier MD Signed Date/Time: 06/10/24 3:26 pm Transcribed By: GABRIEL Transcribed Date/Time: 06/10/24 3:24 pm Social History Social History Type Response Smoking Status Former smoker entered on: 01/10/17 Sex Sex Representation Female (finding) Patient Care team information Care Team Personnel Name: Meredith Hammond Position: [facility] Onco RN Member Role: Primary Care Nurse Name: Taya Doshi RN Position: [facility] Rad RN Member Role: Primary Care Nurse Name: John Avina DO Position: Reference Physician Member Role: PCP Address: [address] [place] [address] [place] [address]- Telecom: Name: Kenyatta Be RN Position: S RN Member Role: Primary Care Nurse Name: Juliana Campos RN Position: [facility] Onco RN Member Role: Primary Care Nurse Name: Rachelle Woods RN Position: [facility] RN Member Role: Primary Care Nurse Name: Rema Jeffers RN Position: [facility] Onco RN Member Role: Primary Care Nurse Care Team Related Persons Name: KOJO KAPLAN Name: KOJO DODGE Name: JW LIU Insurance Providers Guarantor name: SAVANNAH [facility] [employer] [facility] Plan Information #: 2 Payer: MEDEX Member Number: [id number] Policy Number: NA Group Number: NA Health Plan Information #: 1 Payer: MEDICARE PART B OUTPT Member Number: [id number] Policy Number: NA Group Number: NA
--- OUTSIDE RECORDS SUMMARY | 2024-06-26 16:30 | XMS_ITS | Clinical Summary ---
Author Organization [facility] Address [address] [place] [address] Phone Care Team Providers Care Cuff Presser Name Role Phone John Avina DO Primary Care Provider [phone] Encounters Date Type Department Care Team Description 06/10/2024 Lab Requisition [facility] - Main Lab [address] [facility] [place] [address] Arianna Iraheta PA Dysuria from Last 3 Months Social History Tobacco Use Types Packs/Day Years Used Date Smoking Tobacco: Never Assessed Comments Unknown Sex and Gender Information Value Date Recorded Sex Assigned at Not on file Legal Sex Female 6:11 PM EST Gender Identity Not on file Sexual Orientation Not on file Plan of Treatment Health Maintenance Due Date Last Done Comments DTaP,Tdap,and Td Vaccines (1 - Tdap) 1965 Pneumococcal Vaccine: 50+ Ye ars (1 of 1 - PCV) 1996 Zoster Vaccines (1 of 2) 1996 RSV Immunization Patients 60 + Years Old (1 - 1-dose 75+ series) 2021 COVID-19 Vaccine ( - 2023-2 5 season) 2023 Influenza Vaccine (#1) 2023 Depression Screening 06/11/2024 Falls Risk Assessment 06/11/2024 Hepatitis C Screening 06/11/2024 Medicare Annual Wellness Visit 06/11/2024 Osteoporosis Screening (Bone Density Screening) 06/11/2024 Social Influencers of Health Screening 06/11/2024 HIB Vaccines Aged Out No longer eligi ble based on patient's age to complete this topic HPV Vaccines Aged Out No longer eligi ble based on patient's age to complete this topic Hepatitis A Vaccines Aged Out No long er eligible based on patient's age to complete this topic Hepatitis B Vaccines Aged Out No long er eligible based on patient's age to complete this topic IPV Vaccines Aged Out No longer eligi ble based on patient's age to complete this topic MMR Vaccines Aged Out No longer eligi ble based on patient's age to complete this topic Meningococcal ACWY Vaccine Aged Out N o longer eligible based on patient's age to complete this topic Meningococcal B Vacine Aged Out No lo nger eligible based on patient's age to complete this topic RSV Immunization Patients Un maggie 20 months Aged Out No longer eligible b ased on patient's age to complete this topic Varicella Vaccines Aged Out No longer eligible based on patient's age to complete this topic Procedures Procedure Name Priority Date/Time Associated Diagnosis Comments CULTURE URINE Routine 06/10/2024 12:00 AM EST Dysuria from Last 3 Months Results * (ABNORMAL) Culture urine (06/10/2024 12:00 AM EST) Culture, Urine >100,000 CFU/mL Klebsiella pneumoniae ssp pneumoniae(A) RIC 06/12/2024 11:01 AM EST [facility] Comment: This is an edited [...] MICROBIOLOGY - GENERAL ORD ERABLES Final Result [facility] [address] [place] [address], from Last 3 Months Insurance MEDICARE [facility] Care Teams Cuff Presser Relationship Specialty Start Date End Date John Avina DO [address] [place] [phone] PCP - General Internal Medicine 06/10/24
--- OUTSIDE RECORDS SUMMARY | 2024-06-26 16:30 | XMS_ITS | Clinical Summary ---
Author Organization [facility] Address [address] [place] [address] Phone Care Team Providers Care Cognos Developer Name Role Phone FabriceJohn solares Primary Care Provider Allergies Active Allergy Reactions Criticality Noted Date Comments Diphenhydramine 04/23/2024 IV benadryl causes significant delirium. PO tablet okay per patient Esomeprazole Other (see comments),Palpitations Low 05/25/2016 Other Reaction(s): heart palpitations Chest pain Omeprazole Other (see comments),Palpitations Low 05/25/2016 Other Reaction(s): heart palpitations Chest pain Prednisone Other (see comments) 05/25/2016 Listed in past medical records as an existing allergy, but patient reported 05/28/16 she believes she was administered Decadron recently without issue. Clarification/confirmati on needed re: same. Medications allopurinol (ZYLOPRIM) 300 MG tablet 1 (one) time each day 8 Active aspirin 81 MG chewable tablet Chew 81 mg in the morning. Active bumetanide (BUMEX) 1 MG tablet 4 Active carvedilol (COREG) 3.125 MG tablet Take 6.25 mg by mouth 8 Active carvedilol (COREG) 6.25 MG tablet 2 (two) times a day Active ciprofloxacin (CIPRO) 500 MG tablet Take 500 mg by mouth in the morning and 500 mg in the evening. TWICE A DAY FOR 7 DAYS. 4 Active clopidogrel (PLAVIX) 75 MG tablet Take 75 mg by mouth 4 09/14/19 25 Active folic acid (FOLVITE) 1 MG tablet Take 1 mg by mouth 8 Active gabapentin (NEURONTIN) 300 MG capsule 1 capsule 1 (one) time each day 8 Active hydrALAZINE 25 MG tablet 4 Active levothyroxine (SYNTHROID, LEVOTHROID) 75 MCG tablet Take 75 mcg by mouth every morning Active metFORMIN (GLUCOPHAGE) 500 MG tablet 1 (one) time each day Active Vitamin E 45 MG (100 UNIT) capsule Take 100 Int'l Units by mouth 3 Active rosuvastatin (CRESTOR) 20 MG tablet Rosuvastatin Calcium Active Active Problems Problem Noted Date Diagnosed Date Hypothyroidism 04/23/2024 Chronic kidney disease, stage 4 (severe) 025 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/23/2024 Myeloma kidney 04/23/2024 Hypertension 06/04/2016 Encounters Date Type Department Care Team Description 05/14/2024 Orders Only [facility] [address] [place] [address] Mejia Soler MD Chronic kidney disease, stage 4 (severe) (HCC); Type 2 diabetes mellitus with diabetic chronic kidney disease (HCC); Myeloma kidney (HCC) 04/23/2024 3:30 PM EST Office Visit [facility] [address] [place] [address] Mejia Soler MD Chronic kidney disease, stage 4 (severe) (HCC) (Primary Dx); Type 2 diabetes mellitus with diabetic chronic kidney disease (HCC); Myeloma kidney (HCC) 04/23/2024 Office Communication [facility] [address] [id number] Mejia Soler MD from Last 3 Months Social History Tobacco Use Types Packs/Day Years Used Date Smoking Tobacco: Never Assessed Comments Unknown Sex and Gender Information Value Date Recorded Sex Assigned at Not on file Legal Sex Female 4:53 PM EST Gender Identity Not on file Sexual Orientation Not on file Last Filed Vital Signs Vital Sign Reading Time Taken Comments Blood Pressure 120/70 04/23/2024 3:17 PM EST Pulse 65 04/23/2024 3:17 PM EST Temperature - - Respiratory Rate - - Oxygen Saturation 97% 04/23/2024 3:17 PM EST Inhaled Oxygen Concentration - - Weight 60.7 kg (133 lb 12.8 oz) 04/23/2024 3:17 PM EST Height - - Body Mass Index - - Plan of Treatment Upcoming Encounters Date Type Department Care Team (Late st Contact Info) Description 07/16/2024 2:15 PM EDT Office Visit [facility] [address] [place] [address] Mejia Soler MD [address] [facility] [address] [place] [address] Health Maintenance Due Date Last Done Comments Pneumococcal Vaccine: 65+ Ye ars (1 of 2 - PCV) 1952 Influenza Vaccine (#1) 2023 Diabetes: Hemoglobin A1C 04/23/2024 Diabetes: Ophthalmology Exam 04/23/2024 Diabetes: Pedal Pulse Checked 04/23/2024 Diabetes: Sensory Foot Exam 04/23/2024 Diabetes: Visual Foot Exam 04/23/2024 Hepatitis B Vaccine Aged Out No longe r eligible based on patient's age to complete this topic Insurance MEDICARE [facility] MEDICARE [facility] Care Teams Cognos Developer Relationship Specialty Start Date End Date John Avina DO [address] [place] [address] PCP - General Internal Medicine 10/23/23
[2024-06-26 17:26] LABS: Troponin-I High Sensitivity 13.7 ng/L (<3.5-17.0)
--- NOTE | 2024-06-26 17:51 | PM.IMHP ---
History of Present Illness Date of Service: 06/26/24 Attending physician on admission: Francisco Javier Lafleur Chief Complaint: Near syncope Pt is a 78-year-old female with a PMH significant for?microcytic anemia of unclear etiology, HFreEF 35-40%, CAD s/p stenting of RCA, breast cancer s/p lumpectomy 07/01/2023 on maintenance chemotherapy, hypothyroidism, HTN, and osteoporosis who presents to the ED for evaluation of presyncopal episode at home while on the toilet having a bowel movement. Pt with long hx of chronic diarrhea, has instead been constipated for the past few days with last bowel movement 2 days ago. Constipation significantly worsening today. Has had intermittent lower abdominal cramping and pain since last week. Pt lives with her son who found her on the?toilet this morning minimally responsive, confused, and diaphoretic after straining to have a bowel movement. Reports felt dizzy, lightheaded, and weak with no fall or head strike. Initially family thought presyncopal episode secondary to anemia, as pt has had similar symptoms in the past where she has required blood transfusions. Pt had a 2nd episode of syncope while on the commode in the ED. Nursing report found her unresponsive and slumped over on the commode. No fall or head strike. Vital signs at that time indicated hypotension of 77/43. A short time later pt began having significant episodes of diarrhea on her own without any medical or pharmacologic intervention. Had 1 episode of nausea and vomiting while in the ED today. No SOB or difficulty breathing. Denies chest pain/pressure, palpitations. Denies fever or chills. In the ED pt was hypotensive as low as 77/43 after syncopal episode, otherwise vitals stable and WNL. Labs were significant for leukocytosis of 11.9, otherwise grossly unremarkable and around baseline for pt. Stable macrocytic anemia of 8.1/24.0. No significant electrolyte abnormalities. Creatinine 1.83, around baseline. Renal function baseline. Troponins WNL and flat at 15.4 and 13.7. BNP chronically elevated around baseline. CXR showed no acute cardiopulmonary process. CT?of abdomen and pelvis with moderate to significant constipation with diffuse diverticulosis. 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 EKG demonstrated normal sinus rhythm of [address] elevations or depressions. Pt was treated with Mag sulfate and calcium gluconate. Pt will be admitted to the hospital under observation for treatment and further evaluation of syncopal episodes likely secondary to vasovagal syncope in the setting of acute colitis. Review of Systems Review of Systems: Negative except for that which is stated in the [facility] Medical History CAD (coronary artery disease) CHF (congestive heart failure) Cervix prolapsed into vagina History of blood transfusion (~02/01/23) Diabetes mellitus HFrEF (heart failure with reduced ejection fraction) Cardiomyopathy Normal colonoscopy Type 2 diabetes mellitus Diverticulosis Irritable bowel syndrome Pulmonary emboli GERD (gastroesophageal reflux disease) Nephrolithiasis Hypoparathyroidism Papillary thyroid carcinoma HTN (hypertension) Polymyalgia rheumatica Hyperglycemia Chronic anemia Anemia Family History Sister CHF (congestive heart failure) Daughter Breast cancer Son Kidney stones Surgical History Stented coronary artery Breast mass, right H/O endoscopy History of cholecystectomy H/O total thyroidectomy Social History Household Members: Family Household Members Other:: son Housing: House Do you presently have visiting nurse or other home services: No Alcohol intake: never Comment: Pt refuses fall risk protocol/ precautions- ambulates with steady gait Patient Tobacco Use Status: Never used Tobacco Years Smoked: 30 +/- Smoked in Last 30 Days: No e-Cigarette/Vaping Use: Never Used Second Hand Smoke Exposure: No Use of substances other than those prescribed or required for medical reasons: No Advance Directives: Yes Advance Directives Information Provided: No Advance Directives on File: No Do you have a plan to hurt others: No Plan service: No Current occupational status: retired 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 Allergies Allergy/AdvReac Type Severity Reaction Status Date / Time esomeprazole [From NEXIUM] Allergy Intermediate CHEST PAIN Verified 06/26/24 13:25 omeprazole [From PRILOSEC] Allergy Intermediate CHEST PAIN Verified 06/26/24 13:25 diphenhydramine Allergy Dizziness Verified 06/26/24 13:25 [From Benadryl] Home Medications ?Medication ?Instructions ?Recorded ?Confirmed ?Last Taken ?Type aspirin 81 mg tablet,delayed 81 mg PO DAILY 02/29/20 06/26/24 06/26/24 History release cholecalciferol (vitamin D3) 50 50 mcg PO DAILY 02/29/20 06/26/24 06/26/24 History mcg (2,000 unit) tablet (Vitamin D3) cyanocobalamin (vitamin B-12) 5,000 mcg PO DAILY 02/29/20 06/26/24 06/26/24 History 5,000 mcg disintegrating tablet folic acid 1 mg tablet 1 mg PO DAILY 02/29/20 06/26/24 06/26/24 History cranberry 500 mg capsule 500 mg PO DAILY 11/20/22 06/26/24 06/26/24 History ascorbic acid (vitamin C) 500 mg 500 mg PO DAILY 09/23/23 06/26/24 06/26/24 History tablet (Vitamin C) biotin 1 mg tablet 1 mg PO DAILY 06/26/24 06/26/24 06/26/24 History calcium carbonate (Calcium 600) 600 mg PO DAILY 06/26/24 06/26/24 06/26/24 History d-mannose 500 mg capsule (AZO 1,000 mg PO DAILY 06/26/24 06/26/24 06/26/24 History D-Mannose) exemestane 25 mg tablet 25 mg PO DAILY 06/26/24 06/26/24 Unknown History famotidine 20 mg tablet (Pepcid) 20 mg PO DAILY@0630 06/26/24 06/26/24 06/26/24 History gabapentin 100 mg capsule 100 mg PO BEDTIME 06/26/24 06/26/24 06/25/24 History hydralazine 25 mg tablet 25 mg PO BEDTIME 06/26/24 06/26/24 06/25/24 History vitamin E (dl, acetate) 450 mg 450 mg PO DAILY 06/26/24 06/26/24 06/26/24 History (1,000 unit) capsule Physical Exam Vital Signs and Narrative: Vital Signs: Last Vital Signs Temp 97.7 F 06/26/24 15:15 Pulse 53 06/26/24 15:15 Resp 16 06/26/24 15:15 BP 137/63 06/26/24 15:15 Pulse Ox 95 03/07/25 15:15 O2 Del Method Room Air 06/26/24 15:15 BMI result Body Mass Index 22.7 General: AOx3, no acute distress Resp: CTA bilaterally CVS: S1, S2, RRR GI: +BS, NT, no distention Skin: Warm, dry Neuro: Cranial nerves II-XII grossly intact bilaterally. Motor grossly intact bilaterally Extremities: No edema Psych: Appropriate affect Results Labs 06/27/24 05:51 06/27/24 05:51 Labs: Laboratory Results - last 24 hr 06/26/24 13:58 MCV 108.6 H MCH 36.7 H MCHC 33.8 RDW 13.5 Plt Count 170 MPV 9.0 L Immature Gran % (Auto) 0.6 H Neut % (Auto) 81.6 H Lymph % (Auto) 9.2 L [place] % (Auto) 6.3 Eos % (Auto) 1.9 Baso % (Auto) 0.4 Lymph # (Auto) 1.1 L [place] # (Auto) 0.8 Eos # (Auto) 0.2 Baso # (Auto) 0.1 Abs Immat Gran (auto) 0.07 H Absolute Neuts (auto) 9.7 H Absolute Nucleated RBC 0.000 Nucleated RBC % (auto) 0.0 Anion Gap 14 Estim Creat Clear Calc 19.4 Estimated GFR 27 Random Glucose 214 H Calcium 9.1 Total Bilirubin 0.7 Direct Bilirubin 0.2 AST 19 ALT 10 Alkaline Phosphatase 95 B-Natriuretic Peptide 1299 H Total Protein 7.0 Albumin 3.7 Lipase 43 Influenza Type A (PCR) NEGATIVE Influenza Type B (PCR) NEGATIVE RSV RNA Qual (PCR) NEGATIVE SARS-CoV-2 RNA (RT-PCR) NEGATIVE Imaging Radiologist's Impressions: Impressions Chest X-Ray 06/26/24 15:20 IMPRESSION: Hypoexpanded lungs without acute process. Electronically signed by: Azam Hanley MD 06/26/2024 03:50 PM [facility] [place] Abdomen/Pelvis CT 06/26/24 15:36 IMPRESSION: Moderate to significant constipation with diffuse diverticulosis. There is fat stranding and pericolic fluid along the descending and sigmoid colon suggestive of colitis. Diverticulitis is considered less likely. No free air visualized.. No evidence of abscess. Bilateral renal cysts with a complex large 6 cm cyst mid to lower pole right kidney. No radiopaque calculi or hydronephrosis seen. 1.1 cm pancreatic cyst, new since last PET/CT skull exam 02/09/2016. Consider 6 month follow-up Fleischner guidelines were followed. Electronically signed by: Azam Hanley MD 06/26/2024 05:03 PM EST Assessment and Plan (1) Syncope: Status: Acute Plan Pt is a 78-year-old female with a PMH significant for?microcytic anemia of unclear etiology, HFrEF 35-40%, CAD s/p stenting of RCA, breast cancer s/p lumpectomy 07/01/2023 on maintenance chemotherapy, hypothyroidism, HTN, and osteoporosis who presents to the ED for evaluation of presyncopal episode at home while on the toilet having a bowel movement. Pt will be admitted to the hospital under observation for treatment and further evaluation of syncopal episodes likely secondary to vasovagal syncope in the setting of acute colitis. Syncopal episodes Pt with two witnessed syncopal episodes while straining on the toilet Likely vasovagal; pt with recent constipation Will check orthostatics Monitor on telemetry Question of colitis Pt with multiple episodes of diarrhea while in the ED, some abd pain/cramping, N/V x1 CT with evidence of fat stranding and pericolic fluid suggestive of colitis Will empirically treat with ceftriaxone and metronidazole, started 06/26/2024 No sepsis: Negative for tachycardia, tachypnea, fever, and leukocytosis Will check C diff, stool studies Diet as tolerated Pancreatic cyst CT found new 1.1 cm pancreatic cyst Follow up in 6 months for repeat imaging CAD Continue aspirin, statin, Plavix HFrEF Not in acute exacerbation Continue carvedilol, bumetanide Hypothyroidism Continue levothyroxine Full Code Attending:?Dr. Lafleur DVT Prophylaxis: Lovenox Pt will be admitted to the hospital under observation for treatment and further evaluation of likely vasovagal syncope as well as acute colitis. Pt will require hospital level care for close monitoring of cardiac function as well as empiric IV antibiotics. Quality Stroke Does the patient have a stroke diagnosis?: No VTE Prior VTE?: No VTE Risk Level:: Medical - moderate - high VTE Device Contraindication: Treatment Not Indicated VTE Drug Contraindication: N/A - Med Ordered
[2024-06-26] MEDS: metroNIDAZOLE/NS 500 MG/100 ML PIGGYBACK 100 MG IV (19:40)
[2024-06-26] MEDS: Heparin Sodium,Porcine 5,000 UNIT/ML VIAL 5000 UNIT SUBCUT (19:41)
[2024-06-26] MEDS: cefTRIAXone sodium 1 GM VIAL IVPUSH (19:41)
--- NOTE | 2024-06-26 20:27 | PHA.MEDREC ---
Addendum entered by Roger Larios 06/26/24 20:47: reviewed Original Note: Pharmacy Consult ? Medication Reconciliation Pharmacy has completed the medication reconciliation. Spoke with patients family at bedside and they had a list the patient made from home. The patient had Exemestane 25mg tabs on her list but no claims and when I asked the patient she was able to confirm she gets it mail ordered from [facility]. The patient also confirmed she takes only 1 capsule of the Gabapentin 100mg caps at bedtime. The family confirmed the patient took her medications this morning.
[2024-06-26] MEDS: hydrALAZINE HCl 25 MG TABLET PO (21:30)
[2024-06-26] MEDS: Gabapentin 100 MG CAPSULE PO (21:31)
[2024-06-26 21:56] LABS: CDiff Gene PCR NEGATIVE (Negative)
[2024-06-27] VITALS (15 sets, daily range): BP systolic 81–152; BP diastolic 37–71; PULSE 68–85; RESP 16–18; TEMP 36.6–38.8; O2SAT 95–100
[2024-06-27] MEDS: 0.9 % Sodium Chloride Flush 3 ML SYRINGE IVFLUSH ×3 (03:48→16:27)
[2024-06-27] MEDS: metroNIDAZOLE/NS 500 MG/100 ML PIGGYBACK 100 MG IV ×3 (03:49→19:36)
[2024-06-27 06:11] LABS: Hematocrit 21.9 % (37.0-47.0); Hemoglobin 7.6 g/dl (12.0-16.0); Mean Corpuscular HGB Conc 34.7 g/dl (31.0-35.0); Mean Corpuscular Hemoglobin 37.1 pg (27.0-33.0); Mean Corpuscular Volume 106.8 fL (80.0-98.0); Mean Platelet Volume 9.1 fL (9.4-12.3); Platelet Count 147 X10*3/uL (160-400); Red Blood Count 2.05 X10*6/uL (4.20-5.50); Red Cell Distribution Width 13.4 % (11.0-16.0); White Blood Count 16.7 X10*3/uL (4.8-10.8)
[2024-06-27] MEDS: Heparin Sodium,Porcine 5,000 UNIT/ML VIAL 5000 UNIT SUBCUT (06:20)
[2024-06-27] MEDS: Levothyroxine Sodium 100 MCG TABLET PO (06:20)
[2024-06-27] MEDS: Famotidine 20 MG TABLET PO (06:20)
[2024-06-27 06:22] LABS: Anion Gap 14 (12-20); Blood Urea Nitrogen 43 mg/dL (9-16); Calcium 8.9 mg/dL (8.4-10.2); Carbon Dioxide 24 mmol/L (22-29); Chloride 107 mmol/L (96-108); Creatinine Clr Calc Pharmacy 18.3; Estimated Glomerular Filt Rate 25; Glucose Random 151 mg/dL (60-115); Potassium 3.4 mmol/L (3.3-5.1); Sodium 142 mmol/L (135-145)
[2024-06-27] MEDS: Aspirin Enteric Coated 81 MG TABLET.DR PO (07:53)
[2024-06-27] MEDS: Cyanocobalamin (Vitamin B-12) 1,000 MCG TABLET 5000 MCG PO (07:53)
[2024-06-27] MEDS: Bumetanide 1 MG TABLET 2 MG PO (07:54)
[2024-06-27] MEDS: Clopidogrel Bisulfate 75 MG TABLET PO (07:54)
[2024-06-27] MEDS: Ascorbic Acid 500 MG TABLET PO (07:54)
[2024-06-27] MEDS: Atorvastatin Calcium 80 MG TABLET PO (07:55)
[2024-06-27] MEDS: Folic Acid 1 MG TABLET PO (07:55)
[2024-06-27] MEDS: carvediloL 6.25 MG TABLET PO (07:55)
--- NOTE | 2024-06-27 09:11 | PC.NURSE ---
This Rn noted low BP, went into room to assess, pt is curled up in a ball in bed sleeping, this RN woke pt and she stated she is not dizzy just tired at this time. Cuff removed and repositioned, BP rechecked, remains lower than previous BP. Primary nurse alerted at this time.
[2024-06-27] MEDS: Vitamin E (Dl,Tocopheryl Acet) 180 MG (400 UNIT) CAPSULE 360 MG PO (09:12)
[2024-06-27] MEDS: Cholecalciferol (Vitamin D3) 25 MCG TABLET 50 MCG PO (09:12)
[2024-06-27] MEDS: allopurinoL 300 MG TABLET PO (09:12)
[2024-06-27 10:40] LABS: Adenovirus F 40/41 Not Detected (Not Detect.); Astrovirus Not Detected (Not Detect.); Campylobacter Not Detected (Not Detect.); Cryptosporidium Not Detected (Not Detect.); Cyclospora cayetanensis Not Detected (Not Detect.); E. coli EAEC Not Detected (Not Detect.); E. coli EPEC Not Detected (Not Detect.); E. coli ETEC Not Detected (Not Detect.); E. coli STEC Not Detected (Not Detect.); Entamoeba histolytica Not Detected (Not Detect.); Giardia lamblia Not Detected (Not Detect.); Norovirus GI/GII Not Detected (Not Detect.); Plesiomonas shigelloides Not Detected (Not Detect.); Rotavirus A Not Detected (Not Detect.); Salmonella Not Detected (Not Detect.); Sapovirus Not Detected (Not Detect.); Shigella sp./EIEC Not Detected (Not Detect.); Vibrio Not Detected (Not Detect.); Vibrio Cholerae Not Detected (Not Detect.); Yersinia enterocolitica Not Detected (Not Detect.)
--- NOTE | 2024-06-27 14:00 | P.PNIM_ITS ---
Subjective Subjective Date of Service: 06/27/24 Interval History: generalised weak Review of Systems Denies any abdominal pain or diarrhea or fever Feels generalized weak. Physical Exam 2 Vital Signs: Vital Signs: Last Vital Signs Temp 99.5 F 06/27/24 06:10 Pulse 80 06/27/24 11:24 Resp 16 06/27/24 09:16 BP 112/55 L 06/27/24 11:24 Pulse Ox 100 06/27/24 07:45 O2 Del Method Nasal Cannula 06/27/24 07:45 O2 Flow Rate 2 06/27/24 07:45 BMI result Body Mass Index 22.7 Appearance: Alert.? Oriented X3.? cvs: rrr, [id number]. res: clear to auscultation. abd: soft ,nt, bs present. ext pulses present , no cyanosis . neuro: axo3 , nonfocal. Objective Data Active Medications Acetaminophen (Acetaminophen 325 Mg Tablet) 650 mg PO Q6H PRN PRN Reason: Pain, Mild 1-3,fever,headache Allopurinol (Allopurinol 300 Mg Tablet) 300 mg PO DAILY [facility] Last Admin: 06/27/24 09:12 Dose: 300 mg Documented By: NI Ascorbic Acid (Ascorbic Acid 500 Mg Tablet) 500 mg PO DAILY [facility] Last Admin: 06/27/24 07:54 Dose: 500 mg Documented By: NI Aspirin (Aspirin Enteric Coated 81 Mg Tablet.) 81 mg PO DAILY [facility] Last Admin: 06/27/24 07:53 Dose: 81 mg Documented By: NI Atorvastatin Calcium (Atorvastatin Calcium 80 Mg Tablet) 80 mg PO DAILY [facility] Last Admin: 06/27/24 07:55 Dose: 80 mg Documented By: NI Calcium Carbonate (Calcium Carbonate 750 Mg Tab.Chew) 750 mg PO Q4H PRN PRN Reason: Heartburn Last Admin: 06/27/24 09:12 Dose: 750 mg Documented By: NI Carvedilol (Carvedilol 6.25 Mg Tablet) 6.25 mg PO BID [facility]; Protocol Last Admin: 06/27/24 07:55 Dose: 6.25 mg Documented By: NI Ceftriaxone Sodium (Ceftriaxone Sodium 1 Gm Vial) 1 gm IVPUSH Q24H [facility] Last Admin: 06/26/24 19:41 Dose: 1 gm Documented By: SHARAD Clopidogrel Bisulfate (Clopidogrel Bisulfate 75 Mg Tablet) 75 mg PO DAILY [facility] Last Admin: 06/27/24 07:54 Dose: 75 mg Documented By: NI Cyanocobalamin (Cyanocobalamin (Vitamin B-12) 1,000 Mcg Tablet) 5,000 mcg PO DAILY [facility] Last Admin: 06/27/24 07:53 Dose: 5,000 mcg Documented By: NI Famotidine (Famotidine 20 Mg Tablet) 20 mg PO DAILY@0630 [facility] Last Admin: 06/27/24 06:20 Dose: 20 mg Documented By: DEANDRE Folic Acid (Folic Acid 1 Mg Tablet) 1 mg PO DAILY [facility] Last Admin: 06/27/24 07:55 Dose: 1 mg Documented By: NI Gabapentin (Gabapentin 100 Mg Capsule) 100 mg PO BEDTIME [facility] Last Admin: 06/26/24 21:31 Dose: 100 mg Documented By: SHARAD Heparin Sodium (Porcine) (Heparin Sodium,Porcine 5,000 Unit/Ml Vial) 5,000 unit SUBCUT Q12H [facility] Last Admin: 06/27/24 06:20 Dose: 5,000 unit Documented By: DEANDRE Hydralazine HCl (Hydralazine Hcl 25 Mg Tablet) 25 mg PO BEDTIME [facility]; Protocol Last Admin: 06/26/24 21:30 Dose: 25 mg Documented By: SHARAD Metronidazole (Flagyl) 500 mg in 100 mls @ 100 mls/hr IV Q8H [facility] Last Infusion: 06/27/24 13:43 Dose: Infused Documented By: NI Levothyroxine Sodium (Levothyroxine Sodium 100 Mcg Tablet) 100 mcg PO MOTUTHFRSA@0600 [facility] Last Admin: 06/27/24 06:20 Dose: 100 mcg Documented By: DEANDRE Magnesium Hydroxide (Milk Of Magnesia 30 Ml Oral.Susp) 30 ml PO DAILY PRN PRN Reason: Constipation Melatonin (Melatonin 3 Mg Tablet) 6 mg PO BEDTIME PRN PRN Reason: Insomnia Non-Formulary Medication (Calcium Carbonate [Calcium 600]) 600 mg PO DAILY [facility] Last Admin: 06/27/24 09:23 Dose: 600 mg Documented By: NI Non-Formulary Medication (Exemestane) 25 mg PO DAILY [facility] Ondansetron HCl (Ondansetron Hcl 4 Mg/2 Ml Vial) 4 mg IVPUSH Q8H PRN PRN Reason: Nausea and Vomiting Sodium Chloride (0.9 % Sodium Chloride Flush 3 Ml Syringe) 3 ml IVFLUSH QSHIFT [facility] Last Admin: 06/27/24 07:58 Dose: 3 ml Documented By: NI Vitamin D (Cholecalciferol (Vitamin D3) 25 Mcg Tablet) 50 mcg PO DAILY [facility] Last Admin: 06/27/24 09:12 Dose: 50 mcg Documented By: NI Vitamin E (Vitamin E (Dl,Tocopheryl Acet) 180 Mg (400 Unit) Capsule) 360 mg PO DAILY [facility] Last Admin: 06/27/24 09:12 Dose: 360 mg Documented By: NI Labs 06/27/24 05:51 06/27/24 05:51 Labs: Laboratory Results - last 24 hr 06/26/24 06/26/24 06/27/24 13:58 20:48 05:51 MCV 108.6 H 106.8 H MCH 36.7 H 37.1 H MCHC 33.8 34.7 RDW 13.5 13.4 Plt Count 170 147 L MPV 9.0 L 9.1 L Immature Gran % (Auto) 0.6 H Neut % (Auto) 81.6 H Lymph % (Auto) 9.2 L [place] % (Auto) 6.3 Eos % (Auto) 1.9 Baso % (Auto) 0.4 Lymph # (Auto) 1.1 L [place] # (Auto) 0.8 Eos # (Auto) 0.2 Baso # (Auto) 0.1 Abs Immat Gran (auto) 0.07 H Absolute Neuts (auto) 9.7 H Absolute Nucleated RBC 0.000 0.000 Nucleated RBC % (auto) 0.0 0.0 Anion Gap 14 14 Estim Creat Clear Calc 19.4 18.3 Estimated GFR 27 25 Random Glucose 214 H 151 H Calcium 9.1 8.9 Total Bilirubin 0.7 Direct Bilirubin 0.2 AST 19 ALT 10 Alkaline Phosphatase 95 B-Natriuretic Peptide 1299 H Total Protein 7.0 Albumin 3.7 Lipase 43 Stl C. cayetanensis PCR Not Detected Stool Rotavirus A PCR Not Detected Stl Adenov F 40/41 PCR Not Detected Stool Astrovirus (PCR) Not Detected Stool Campylobacter PCR Not Detected Stool Cryptosporidium PCR Not Detected Stl Sh Tox Pr E STEC PCR Not Detected Stool E coli O157 PCR Not applicable Stl Enterotoxigenic E PCR Not Detected Stool EPEC (PCR) Not Detected Stool EAEC (PCR) Not Detected Stl E. histolytica PCR Not Detected Stool Giardia Lamblia PCR Not Detected Stl P. shigelloides PCR Not Detected Stool Salmonella PCR Not Detected Stool Sapovirus (PCR) Not Detected Stl Shigella/EIEC PCR Not Detected St Y.enterocolitica PCR Not Detected Stool Vibrio (PCR) Not Detected Stl Vibrio cholerae PCR Not Detected Stl Norovirus GI/GII PCR Not Detected C. difficile Tox B Gene NEGATIVE Influenza Type A (PCR) NEGATIVE Influenza Type B (PCR) NEGATIVE RSV RNA Qual (PCR) NEGATIVE SARS-CoV-2 RNA (RT-PCR) NEGATIVE Assessment and Plan (1) Syncope: Status: Acute Assessment and Plan: 78-year-old female with a PMH significant for?microcytic anemia of unclear etiology, HFrEF 35-40%, CAD s/p stenting of RCA, breast cancer s/p lumpectomy 07/01/2023 on maintenance chemotherapy, hypothyroidism, HTN, and osteoporosis who presents to the ED for evaluation of presyncopal episode at home while on the toilet having a bowel movement. Pt will be admitted to the hospital under observation for treatment and further evaluation of syncopal episodes likely secondary to vasovagal syncope in the setting of acute colitis. Syncopal episodes Pt with two witnessed syncopal episodes while straining on the toilet Likely vasovagal with pt with recent constipation,ekg seems similar orthostatics negative, telemetry seems fine still generlaised weak . colitis: Pt with multiple episodes of diarrhea while in the ED, some abd pain/cramping, N/V x1 CT with evidence of fat stranding and pericolic fluid suggestive of colitis Will empirically treat with ceftriaxone and metronidazole, started 06/26/2024 No sepsis: Negative for tachycardia, tachypnea, fever, and leukocytosis C diff, stool studies-negative Diet as tolerated Pancreatic cyst CT found new 1.1 cm pancreatic cyst Follow up in 6 months for repeat imaging CAD Continue aspirin, statin, Plavix HFrEF Not in acute exacerbation hold carvedilol, bumetanide due to bodelrine bp. Hypothyroidism Continue levothyroxine. ch microcytic anemia of unclear etiology: h/h somewhat down from baseline gets prn transfusion type and screen transfuse 1 prbc. generlaised weak .:added pt eval Full Code DVT Prophylaxis:hold heparin due to anemia. ongoing need -multiple issue -anemia , colitis ,generalised weak : need iv antibiotics Quality Stroke Does the patient have a stroke diagnosis?: No VTE Prior VTE?: No VTE Risk Level:: Medical - moderate - high VTE Device Contraindication: Treatment Not Indicated VTE Drug Contraindication: N/A - Med Ordered
--- NOTE | 2024-06-27 15:16 | MHC.CM.PN ---
PT REPORTS SHE LIVES AT HOME WITH HER SON AND IS INDEPENDENT WITH CARE SHE HAS A WALKER FOR DME AND NO HOME SERVICES COPY OF HCP REQUESTED PCP: ASHER LUICA OBSERVATION NOTICE DELIVERED DCP: HOME ? [facility]SP[facility]
[2024-06-27 17:27] LABS: VBG Base Excess 5.1 mmol/L; VBG HCO3 29 mmol/L (22-26); VBG pCO2 41 mmHg; VBG pH 7.45 (7.32-7.43); VBG pO2 144 mmHg
[2024-06-27 17:28] LABS: Venous Blood Gas Refer to POC result
--- NOTE | 2024-06-27 18:27 | PC.NURSE ---
Pt receiving one unit of blood at this time. Per Dr. Lafleur, Blood transfusion to be given over the course of 4 hours. Once transfusion complete, Lasix to be administered.
[2024-06-27] MEDS: cefTRIAXone sodium 1 GM VIAL IVPUSH (19:18)
--- NOTE | 2024-06-27 19:39 | PC.NURSE ---
assumed car for pt at this time.. pt alert and oriented to self place and time. son is bedside. pt has blood running at 100 ml/hr. changed pts bedsheets, armando pad, and gown. pt noted to have rectal temp of 101.9, provider Ana María aware, waiting new orders.
[2024-06-27] MEDS: Acetaminophen 1,000 MG/100 ML PIGGYBACK 400 MG IV (19:45)
--- NOTE | 2024-06-27 20:44 | P.EN_ITS ---
Event Note Date of Service: 06/27/24 Event Note: Notified by nursing that pt spiked a rectal fever of 101.9. Pt seen and evaluated where she had no acute medical complaints. Reported that she felt much better than earlier in the day. Denied shortness a, difficulty breathing, cough. No nausea, vomiting. No episodes of diarrhea today. Denied abdominal pain. However, it was noted pt was receiving blood transfusion at the time. Will stop blood transfusion and send blood for transfusion reaction workup. W ill also recheck COVID/flu/RSV. Time Spent With Patient Time: Total time managing care of this patient today ____ minutes.
[2024-06-27] MEDS: Furosemide 20 MG/2 ML VIAL IVPUSH (20:55)
[2024-06-27 22:49] LABS: Influenza A PCR NEGATIVE (Negative); Influenza B PCR NEGATIVE (Negative); Resp Syncy Virus RNA Qual PCR NEGATIVE (Negative); SARS COV2 PCR INHOUSE NEGATIVE (Negative)
[2024-06-28] MEDS: metroNIDAZOLE/NS 500 MG/100 ML PIGGYBACK 100 MG IV ×3 (01:20→18:30)
[2024-06-28 03:37] VITALS: BP 158/84; PULSE 74; RESP 18; TEMP 36.8; O2SAT 96
[2024-06-28] MEDS: Famotidine 20 MG TABLET PO (05:20)
[2024-06-28 07:10] VITALS: BP 152/74; PULSE 73; RESP 18; TEMP 37.3; O2SAT 97
[2024-06-28 08:59] LABS: Hematocrit 21.3 % (37.0-47.0); Hemoglobin 7.3 g/dl (12.0-16.0); Mean Corpuscular HGB Conc 34.3 g/dl (31.0-35.0); Mean Corpuscular Hemoglobin 35.1 pg (27.0-33.0); Mean Corpuscular Volume 102.4 fL (80.0-98.0); Mean Platelet Volume 9.7 fL (9.4-12.3); Platelet Count 121 X10*3/uL (160-400); Red Blood Count 2.08 X10*6/uL (4.20-5.50); Red Cell Distribution Width 16.7 % (11.0-16.0); White Blood Count 12.8 X10*3/uL (4.8-10.8)
[2024-06-28 09:21] LABS: Anion Gap 15 (12-20); Blood Urea Nitrogen 49 mg/dL (9-16); Calcium 7.8 mg/dL (8.4-10.2); Carbon Dioxide 24 mmol/L (22-29); Chloride 104 mmol/L (96-108); Estimated Glomerular Filt Rate 21; Glucose Random 93 mg/dL (60-115); Potassium 3.4 mmol/L (3.3-5.1); Sodium 140 mmol/L (135-145)
[2024-06-28] MEDS: Cholecalciferol (Vitamin D3) 25 MCG TABLET 50 MCG PO (10:07)
[2024-06-28] MEDS: Vitamin E (Dl,Tocopheryl Acet) 180 MG (400 UNIT) CAPSULE 360 MG PO (10:07)
[2024-06-28] MEDS: Clopidogrel Bisulfate 75 MG TABLET PO (10:07)
[2024-06-28] MEDS: 0.9 % Sodium Chloride Flush 3 ML SYRINGE IVFLUSH ×3 (10:07→21:23)
[2024-06-28] MEDS: Folic Acid 1 MG TABLET PO (10:08)
[2024-06-28] MEDS: Aspirin Enteric Coated 81 MG TABLET.DR PO (10:08)
[2024-06-28] MEDS: Atorvastatin Calcium 80 MG TABLET PO (10:08)
[2024-06-28] MEDS: allopurinoL 300 MG TABLET PO (10:08)
[2024-06-28] MEDS: Ascorbic Acid 500 MG TABLET PO (10:08)
[2024-06-28] MEDS: Cyanocobalamin (Vitamin B-12) 1,000 MCG TABLET 5000 MCG PO (10:17)
[2024-06-28 11:22] VITALS: BP 136/64; PULSE 79; RESP 18; TEMP 37.4; O2SAT 97
[2024-06-28 12:20] LABS: Urine Hemoglobin Negative
--- NOTE | 2024-06-28 15:14 | HO.PM.IMPN ---
Subjective Subjective Date of Service: 06/28/24 Interval History: anemia colitis Review of Systems abd pain improving no fevers Physical Exam Vital Signs: Vital Signs: Last Vital Signs Temp 99.4 F 06/28/24 11:22 Pulse 79 06/28/24 11:22 Resp 18 06/28/24 11:22 BP 136/64 06/28/24 11:22 Pulse Ox 97 06/28/24 11:22 O2 Del Method Nasal Cannula 06/28/24 11:22 O2 Flow Rate 2 06/28/24 11:22 BMI result Body Mass Index 22.7 Appearance: Alert.? Oriented X3.? cvs: rrr, [id number]. res: clear to auscultation. abd: soft ,minimum abd soarness, bs present. ext pulses present , no cyanosis . neuro: axo3 , nonfocal. Objective Data Active Medications Acetaminophen (Acetaminophen 325 Mg Tablet) 650 mg PO Q6H PRN PRN Reason: Pain, Mild 1-3,fever,headache Allopurinol (Allopurinol 300 Mg Tablet) 300 mg PO DAILY [facility] Last Admin: 06/28/24 10:08 Dose: 300 mg Documented By: TANIKA Ascorbic Acid (Ascorbic Acid 500 Mg Tablet) 500 mg PO DAILY [facility] Last Admin: 06/28/24 10:08 Dose: 500 mg Documented By: TANIKA Aspirin (Aspirin Enteric Coated 81 Mg Tablet.) 81 mg PO DAILY [facility] Last Admin: 06/28/24 10:08 Dose: 81 mg Documented By: TANIKA Atorvastatin Calcium (Atorvastatin Calcium 80 Mg Tablet) 80 mg PO DAILY [facility] Last Admin: 06/28/24 10:08 Dose: 80 mg Documented By: TANIKA Calcium Carbonate (Calcium Carbonate 750 Mg Tab.Chew) 750 mg PO Q4H PRN PRN Reason: Heartburn Carvedilol (Carvedilol 6.25 Mg Tablet) 6.25 mg PO BID [facility]; Protocol Last Admin: 06/27/24 07:55 Dose: 6.25 mg Documented By: NI Ceftriaxone Sodium (Ceftriaxone Sodium 1 Gm Vial) 1 gm IVPUSH Q24H [facility] Last Admin: 06/27/24 19:18 Dose: 1 gm Documented By: NIHARIKA Clopidogrel Bisulfate (Clopidogrel Bisulfate 75 Mg Tablet) 75 mg PO DAILY [facility] Last Admin: 06/28/24 10:07 Dose: 75 mg Documented By: TANIKA Cyanocobalamin (Cyanocobalamin (Vitamin B-12) 1,000 Mcg Tablet) 5,000 mcg PO DAILY [facility] Last Admin: 06/28/24 10:17 Dose: 5,000 mcg Documented By: TANIKA Famotidine (Famotidine 20 Mg Tablet) 20 mg PO DAILY@0630 [facility] Last Admin: 06/28/24 05:20 Dose: 20 mg Documented By: WANDER Folic Acid (Folic Acid 1 Mg Tablet) 1 mg PO DAILY [facility] Last Admin: 06/28/24 10:08 Dose: 1 mg Documented By: TANIKA Gabapentin (Gabapentin 100 Mg Capsule) 100 mg PO BEDTIME [facility] Last Admin: 06/26/24 21:31 Dose: 100 mg Documented By: SAHRAD Heparin Sodium (Porcine) (Heparin Sodium,Porcine 5,000 Unit/Ml Vial) 5,000 unit SUBCUT Q12H [facility] Last Admin: 06/27/24 06:20 Dose: 5,000 unit Documented By: DEANDRE Hydralazine HCl (Hydralazine Hcl 25 Mg Tablet) 25 mg PO BEDTIME [facility]; Protocol Last Admin: 06/27/24 21:56 Dose: Not Given Documented By: WANDER Non-Admin Reason: per PA Metronidazole (Flagyl) 500 mg in 100 mls @ 100 mls/hr IV Q8H [facility] Last Infusion: 06/28/24 11:24 Dose: Infused Documented By: TANIKA Levothyroxine Sodium (Levothyroxine Sodium 100 Mcg Tablet) 100 mcg PO MOTUTHFRSA@0600 [facility] Last Admin: 06/27/24 06:20 Dose: 100 mcg Documented By: DEANDRE Magnesium Hydroxide (Milk Of Magnesia 30 Ml Oral.Susp) 30 ml PO DAILY PRN PRN Reason: Constipation Melatonin (Melatonin 3 Mg Tablet) 6 mg PO BEDTIME PRN PRN Reason: Insomnia Non-Formulary Medication (Calcium Carbonate [Calcium 600]) 600 mg PO DAILY [facility] Last Admin: 06/27/24 09:23 Dose: 600 mg Documented By: NI Non-Formulary Medication (Exemestane) 25 mg PO DAILY [facility] Ondansetron HCl (Ondansetron Hcl 4 Mg/2 Ml Vial) 4 mg IVPUSH Q8H PRN PRN Reason: Nausea and Vomiting Sodium Chloride (0.9 % Sodium Chloride Flush 3 Ml Syringe) 3 ml IVFLUSH QSHIFT [facility] Last Admin: 06/28/24 10:07 Dose: 3 ml Documented By: TANIKA Vitamin D (Cholecalciferol (Vitamin D3) 25 Mcg Tablet) 50 mcg PO DAILY [facility] Last Admin: 06/28/24 10:07 Dose: 50 mcg Documented By: TANIKA Vitamin E (Vitamin E (Dl,Tocopheryl Acet) 180 Mg (400 Unit) Capsule) 360 mg PO DAILY [facility] Last Admin: 06/28/24 10:07 Dose: 360 mg Documented By: TANIKA Labs 06/28/24 08:25 06/28/24 08:26 Labs: Laboratory Results - last 24 hr 06/27/24 06/27/24 06/27/24 16:01 17:10 21:07 MCV MCH MCHC RDW Plt Count MPV Absolute Nucleated RBC Nucleated RBC % (auto) VBG pH 7.45 H VBG pCO2 41 VBG pO2 144 VBG HCO3 29 H VBG O2 Saturation TNP VBG Base Excess 5.1 Anion Gap Estim Creat Clear Calc Estimated GFR Random Glucose Calcium Urine Hemoglobin Influenza Type A (PCR) Influenza Type B (PCR) RSV RNA Qual (PCR) SARS-CoV-2 RNA (RT-PCR) Blood Type B Positive Antibody Screen NEGATIVE Crossmatch (AHG) See Detail Clerical Work Check No Error Found Hemolysis Bld Bag Check None in Pre and Post Icterus Blood Bag Check None in Pre and Post Pre-Trans Blood Type B POSITIVE Post-Trans Blood Type B Positive Post-Trans MICHAEL Poly NEGATIVE Post-Trans Add Testing No Post-Tx Rxn MICHAEL Result Not Reportable Pathologist Comment BBK 06/27/24 06/28/24 06/28/24 22:02 08:25 08:26 MCV 102.4 H MCH 35.1 H MCHC 34.3 RDW 16.7 H Plt Count 121 L MPV 9.7 Absolute Nucleated RBC 0.000 Nucleated RBC % (auto) 0.0 VBG pH VBG pCO2 VBG pO2 VBG HCO3 VBG O2 Saturation VBG Base Excess Anion Gap 15 Estim Creat Clear Calc 16.0 Estimated GFR 21 Random Glucose 93 Calcium 7.8 L D Urine Hemoglobin Influenza Type A (PCR) NEGATIVE Influenza Type B (PCR) NEGATIVE RSV RNA Qual (PCR) NEGATIVE SARS-CoV-2 RNA (RT-PCR) NEGATIVE Blood Type Antibody Screen Crossmatch (AHG) Clerical Work Check Hemolysis Bld Bag Check Icterus Blood Bag Check Pre-Trans Blood Type Post-Trans Blood Type Post-Trans MICHAEL Poly Post-Trans Add Testing Post-Tx Rxn MICHAEL Result Pathologist Comment KRISTEN 06/28/24 11:19 MCV MCH MCHC RDW Plt Count MPV Absolute Nucleated RBC Nucleated RBC % (auto) VBG pH VBG pCO2 VBG pO2 VBG HCO3 VBG O2 Saturation VBG Base Excess Anion Gap Estim Creat Clear Calc Estimated GFR Random Glucose Calcium Urine Hemoglobin Negative Influenza Type A (PCR) Influenza Type B (PCR) RSV RNA Qual (PCR) SARS-CoV-2 RNA (RT-PCR) Blood Type Antibody Screen Crossmatch (AHG) Clerical Work Check Hemolysis Bld Bag Check Icterus Blood Bag Check Pre-Trans Blood Type Post-Trans Blood Type Post-Trans MICHAEL Poly Post-Trans Add Testing Post-Tx Rxn MICHAEL Result Pathologist Comment KRISTEN Assessment and Plan (1) Syncope: Status: Acute Assessment and Plan: 78-year-old female with a PMH significant for?microcytic anemia of unclear etiology, HFrEF 35-40%, CAD s/p stenting of RCA, breast cancer s/p lumpectomy 07/01/2023 on maintenance chemotherapy, hypothyroidism, HTN, and osteoporosis who presents to the ED for evaluation of presyncopal episode at home while on the toilet having a bowel movement. Pt will be admitted to the hospital under observation for treatment and further evaluation of syncopal episodes likely secondary to vasovagal syncope in the setting of acute colitis. Syncopal episodes Pt with two witnessed syncopal episodes while straining on the toilet Likely vasovagal with pt with recent constipation,ekg seems similar orthostatics negative, telemetry seems fine still generlaised weak . 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 HFrEF:Not in acute exacerbation. hold carvedilol, bumetanide due to bodelrine bp. Hypothyroidism:Continue levothyroxine. ch microcytic anemia of unclear etiology: h/hslightly down ,mostly h/h is between 7-8 range hold asa/plavix h/h somewhat down from baseline tried 1 prbc :had febrile reaction,Notified by pathology that pt has a hx of febrile reactions to transfusions and that pt is okay to receive transfusions as necessary. No additional workup for transfusion reaction necessary. generlaised weak .: pt eval Full Code DVT Prophylaxis:hold heparin due to anemia.scd. ongoing need -multiple issue -anemia , colitis ,generalised weak : need iv antibiotics Quality Stroke Does the patient have a stroke diagnosis?: No VTE Prior VTE?: No VTE Risk Level:: Medical - moderate - high VTE Device Contraindication: Treatment Not Indicated VTE Drug Contraindication: N/A - Med Ordered
[2024-06-28 15:19] VITALS: BP 146/63; PULSE 73; RESP 18; TEMP 36.6; O2SAT 92
[2024-06-28] MEDS: cefTRIAXone sodium 1 GM VIAL IVPUSH (18:30)
[2024-06-28 19:59] VITALS: BP 167/74; PULSE 78; RESP 16; TEMP 37.1; O2SAT 95
[2024-06-28 21:22] VITALS: BP 154/65; PULSE 81
[2024-06-28] MEDS: hydrALAZINE HCl 25 MG TABLET PO (21:23)
[2024-06-28] MEDS: Acetaminophen 325 MG TABLET 650 MG PO (21:24)
[2024-06-29] VITALS (10 sets, daily range): BP systolic 129–162; BP diastolic 56–74; PULSE 63–91; RESP 16–20; TEMP 35.8–37.6; O2SAT 90–96
[2024-06-29] MEDS: metroNIDAZOLE/NS 500 MG/100 ML PIGGYBACK 100 MG IV ×3 (02:46→20:31)
[2024-06-29 06:06] LABS: Hemoglobin 7.2 g/dl (12.0-16.0)
[2024-06-29 06:11] LABS: Hematocrit 20.9 % (37.0-47.0)
[2024-06-29 06:19] LABS: Anion Gap 14 (12-20); Blood Urea Nitrogen 48 mg/dL (9-16); Calcium 7.9 mg/dL (8.4-10.2); Carbon Dioxide 24 mmol/L (22-29); Chloride 106 mmol/L (96-108); Creatinine Clr Calc Pharmacy 14.4; Estimated Glomerular Filt Rate 19; Glucose Random 101 mg/dL (60-115); Sodium 141 mmol/L (135-145)
[2024-06-29] MEDS: Famotidine 20 MG TABLET PO (06:21)
[2024-06-29] MEDS: Levothyroxine Sodium 100 MCG TABLET PO (06:21)
[2024-06-29] MEDS: allopurinoL 300 MG TABLET PO (07:50)
[2024-06-29] MEDS: Atorvastatin Calcium 80 MG TABLET PO (07:50)
[2024-06-29] MEDS: Cyanocobalamin (Vitamin B-12) 1,000 MCG TABLET 5000 MCG PO (07:50)
[2024-06-29] MEDS: Folic Acid 1 MG TABLET PO (07:50)
[2024-06-29] MEDS: Potassium Chloride Packet 20 MEQ PACKET PO (07:50)
[2024-06-29] MEDS: Ascorbic Acid 500 MG TABLET PO (07:50)
[2024-06-29] MEDS: Cholecalciferol (Vitamin D3) 25 MCG TABLET 50 MCG PO (07:50)
[2024-06-29] MEDS: Vitamin E (Dl,Tocopheryl Acet) 180 MG (400 UNIT) CAPSULE 360 MG PO (07:51)
[2024-06-29] MEDS: 0.9 % Sodium Chloride Flush 3 ML SYRINGE IVFLUSH ×2 (07:51→17:45)
--- NOTE | 2024-06-29 08:21 | P.CNHO_ITS ---
Subjective - Subjective Chief complaint: Near-syncope Patient: known to practice within the last 3 years Consult date: 06/29/24 Primary Care Provider: Paul Dickinson MD Manager Marketing Communications Utilized?: No - Slovenian Speaking HPI - Consult Narrative Reason for consult: Syncope/anemia Narrative: Tonia Hernandez is a 78 year old female well known to hematology service for longstanding anemia who has been admitted to the hospital for syncope, probably related to vasovagal episode. 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 She is currently receiving Luspatercept. Patient also was diagnosed with right-sided breast cancer in 07/10/2023 and she is on aromatase inhibitor therapy. Patient states that about 3 days prior to admission she developed some diarrhea. However on the day of admission she could not move her bowels and she was straining at stool when she experienced dizziness and lightheadedness. She experienced similar symptoms while on the commode in the ED. vital signs indicated hypotension with blood pressure of 77/43. Stable macrocytic anemia of 8.1/24.0. No significant electrolyte abnormalities. Creatinine 1.83, around baseline. Renal function baseline. Troponins WNL and flat at 15.4 and 13.7. BNP chronically elevated around baseline. CXR showed no acute cardiopulmonary process. CT?of abdomen and pelvis with moderate to significant constipation with diffuse diverticulosis. Also found fat stranding and pericolic fluid suggestive of colitis, as well as new 1.1 cm pancreatic cyst with recommendation for six- month follow up. EKG demonstrated normal sinus rhythm of [address] elevations or depressions. Pt was treated with Mag sulfate and calcium gluconate. She continues to feel tired. She denies any chest pain or shortness of breath. Her was at bedside. Review of Systems - Constitutional Reports fatigue, Reports lack of energy, Reports malaise [facility] Medical History: Medical History (Last Reviewed 06/26/24 @ 23:11 by BERT Lynch) Anemia CAD (coronary artery disease) Cardiomyopathy Cervix prolapsed into vagina CHF (congestive heart failure) Chronic anemia Diabetes mellitus Diverticulosis GERD (gastroesophageal reflux disease) HFrEF (heart failure with reduced ejection fraction) History of blood transfusion Onset Date: ~02/01/23 HTN (hypertension) Hyperglycemia Hypoparathyroidism Irritable bowel syndrome Nephrolithiasis Normal colonoscopy Papillary thyroid carcinoma Polymyalgia rheumatica Pulmonary emboli Type 2 diabetes mellitus Family History: Family History (Last Reviewed 06/26/24 @ 23:11 by BERT Lynch) Sister CHF (congestive heart failure) Daughter Breast cancer Son Kidney stones Surgical History: Surgical History (Last Reviewed 06/26/24 @ 23:11 by BERT Lynch) Breast mass, right H/O endoscopy H/O total thyroidectomy History of cholecystectomy Stented coronary artery Social History: Social History (Last Reviewed 06/26/24 @ 23:11 by BERT Lynch) Living Situation History: Household Members: Family Household Members Other:: son Housing: House Do you presently have visiting nurse or other home services: No Alcohol History Details: 1. How often do you have a drink containing alcohol?: a. Never AUDIT-C Alcohol total score: 0 Currently Displaying Signs/Symptoms of Alcohol Withdrawal: No Tobacco History: Patient Tobacco Use Status: Never used Tobacco Years Smoked: 30 +/- Smoked in Last 30 Days: No e-Cigarette/Vaping Use: Never Used Second Hand Smoke Exposure: No Substance Use History: Use of substances other than those prescribed or required for medical reasons : No Currently Displaying Signs/Symptoms of Drug Intoxication Withdrawal: No Domestic Abuse History: Have you been hit, kicked, punched, or otherwise hurt by someone within the past year? If so, by whom?: No Is there a partner from a previous relationship who is making you feel unsafe now?: No Are you made to feel afraid or neglected: No Advance Directives: Advance Directives: Yes Advance Directives Information Provided: No Advance Directives on File: No Advance Directives Date on File: 06/27/24 Homicidal Assessment: Do you have a plan to hurt others: No Plan Nutrition Assessment: Patient : No Occupation Assessmet: service: No Current occupational status: retired Current occupation: Right Handed Home Medications and Allergies Current Medications: Current Medications Acetaminophen (Acetaminophen 325 Mg Tablet) 650 mg PO Q6H PRN PRN Reason: Pain, Mild 1-3,fever,headache Last Admin: 06/28/24 21:24 Dose: 650 mg Allopurinol (Allopurinol 300 Mg Tablet) 300 mg PO DAILY [facility] Last Admin: 06/29/24 07:50 Dose: 300 mg Ascorbic Acid (Ascorbic Acid 500 Mg Tablet) 500 mg PO DAILY [facility] Last Admin: 06/29/24 07:50 Dose: 500 mg Aspirin (Aspirin Enteric Coated 81 Mg Tablet.) 81 mg PO DAILY [facility] Last Admin: 06/28/24 10:08 Dose: 81 mg Atorvastatin Calcium (Atorvastatin Calcium 80 Mg Tablet) 80 mg PO DAILY [facility] Last Admin: 06/29/24 07:50 Dose: 80 mg Calcium Carbonate (Calcium Carbonate 750 Mg Tab.Chew) 750 mg PO Q4H PRN PRN Reason: Heartburn Carvedilol (Carvedilol 6.25 Mg Tablet) 6.25 mg PO BID [facility]; Protocol Last Admin: 06/27/24 07:55 Dose: 6.25 mg Ceftriaxone Sodium (Ceftriaxone Sodium 1 Gm Vial) 1 gm IVPUSH Q24H [facility] Last Admin: 06/28/24 18:30 Dose: 1 gm Clopidogrel Bisulfate (Clopidogrel Bisulfate 75 Mg Tablet) 75 mg PO DAILY [facility] Last Admin: 06/28/24 10:07 Dose: 75 mg Cyanocobalamin (Cyanocobalamin (Vitamin B-12) 1,000 Mcg Tablet) 5,000 mcg PO DAILY [facility] Last Admin: 06/29/24 07:50 Dose: 5,000 mcg Famotidine (Famotidine 20 Mg Tablet) 20 mg PO DAILY@0630 [facility] Last Admin: 06/29/24 06:21 Dose: 20 mg Folic Acid (Folic Acid 1 Mg Tablet) 1 mg PO DAILY [facility] Last Admin: 06/29/24 07:50 Dose: 1 mg Gabapentin (Gabapentin 100 Mg Capsule) 100 mg PO BEDTIME [facility] Last Admin: 06/26/24 21:31 Dose: 100 mg Heparin Sodium (Porcine) (Heparin Sodium,Porcine 5,000 Unit/Ml Vial) 5,000 unit SUBCUT Q12H [facility] Last Admin: 06/27/24 06:20 Dose: 5,000 unit Hydralazine HCl (Hydralazine Hcl 25 Mg Tablet) 25 mg PO BEDTIME [facility]; Protocol Last Admin: 06/28/24 21:23 Dose: 25 mg Metronidazole (Flagyl) 500 mg in 100 mls @ 100 mls/hr IV Q8H [facility] Last Infusion: 06/29/24 03:46 Dose: Infused Levothyroxine Sodium (Levothyroxine Sodium 100 Mcg Tablet) 100 mcg PO MOTUTHFRSA@0600 [facility] Last Admin: 06/29/24 06:21 Dose: 100 mcg Magnesium Hydroxide (Milk Of Magnesia 30 Ml Oral.Susp) 30 ml PO DAILY PRN PRN Reason: Constipation Melatonin (Melatonin 3 Mg Tablet) 6 mg PO BEDTIME PRN PRN Reason: Insomnia Non-Formulary Medication (Calcium Carbonate [Calcium 600]) 600 mg PO DAILY [facility] Last Admin: 06/29/24 07:52 Dose: Not Given Non-Formulary Medication (Exemestane) 25 mg PO DAILY [facility] Ondansetron HCl (Ondansetron Hcl 4 Mg/2 Ml Vial) 4 mg IVPUSH Q8H PRN PRN Reason: Nausea and Vomiting Sodium Chloride (0.9 % Sodium Chloride Flush 3 Ml Syringe) 3 ml IVFLUSH QSHIFT [facility] Last Admin: 06/29/24 07:51 Dose: 3 ml Vitamin D (Cholecalciferol (Vitamin D3) 25 Mcg Tablet) 50 mcg PO DAILY [facility] Last Admin: 06/29/24 07:50 Dose: 50 mcg Vitamin E (Vitamin E (Dl,Tocopheryl Acet) 180 Mg (400 Unit) Capsule) 360 mg PO DAILY [facility] Last Admin: 06/29/24 07:51 Dose: 360 mg Home Medications ?Medication ?Instructions ?Recorded ?Confirmed ?Type aspirin 81 mg tablet,delayed 81 mg PO DAILY 02/29/20 06/26/24 History release cholecalciferol (vitamin D3) 50 50 mcg PO DAILY 02/29/20 06/26/24 History mcg (2,000 unit) tablet (Vitamin D3) cyanocobalamin (vitamin B-12) 5,000 mcg PO DAILY 02/29/20 06/26/24 History 5,000 mcg disintegrating tablet folic acid 1 mg tablet 1 mg PO DAILY 02/29/20 06/26/24 History cranberry 500 mg capsule 500 mg PO DAILY 11/20/22 06/26/24 History ascorbic acid (vitamin C) 500 mg 500 mg PO DAILY 09/23/23 06/26/24 History tablet (Vitamin C) biotin 1 mg tablet 1 mg PO DAILY 06/26/24 06/26/24 History calcium carbonate (Calcium 600) 600 mg PO DAILY 06/26/24 06/26/24 History d-mannose 500 mg capsule (AZO 1,000 mg PO DAILY 06/26/24 06/26/24 History D-Mannose) exemestane 25 mg tablet 25 mg PO DAILY 06/26/24 06/26/24 History famotidine 20 mg tablet (Pepcid) 20 mg PO DAILY@0630 06/26/24 06/26/24 History gabapentin 100 mg capsule 100 mg PO BEDTIME 06/26/24 06/26/24 History hydralazine 25 mg tablet 25 mg PO BEDTIME 06/26/24 06/26/24 History vitamin E (dl, acetate) 450 mg 450 mg PO DAILY 06/26/24 06/26/24 History (1,000 unit) capsule Allergies Allergy/AdvReac Type Severity Reaction Status Date / Time esomeprazole [From NEXIUM] Allergy Intermediate CHEST PAIN Verified 06/26/24 13:25 omeprazole [From PRILOSEC] Allergy Intermediate CHEST PAIN Verified 06/26/24 13:25 diphenhydramine Allergy Dizziness Verified 06/26/24 13:25 [From Benadryl] Physical Exam Vital signs: Vital Signs Temp 96.5 F L 06/29/24 08:00 Pulse 79 06/29/24 08:00 Resp 18 06/29/24 08:00 BP 131/59 L 06/29/24 08:00 Pulse Ox 94 06/29/24 08:00 O2 Del Method Nasal Cannula 06/29/24 04:00 O2 Flow Rate 2 06/29/24 04:00 Intake & Output 06/28/24 06/29/24 06/29/24 18:59 06:59 18:59 Intake Total 460 / 860 400 / 860 Output Total 500 / 700 200 / 700 Balance -40 / 160 200 / 160 Urine Output (Average ml/kg/hr) 0.77 0.31 Intake: Intake, Oral Amount 360 / 560 200 / 560 Intake, IV Amount 100 / 300 200 / 300 metroNIDAZOLE/NS 500 mg In 100 100 / 300 200 / 300 ml @ 100 mls/hr IV Q8H [facility] Rx#: [id number] Output: Output, Urine Amount 500 / 700 200 / 700 Other: Number of Unmeasured Voids 1 Number of Bowel Movements 2 Urine purewick Bedside Commode Urine Color Yellow Yellow Stool Bedside Commode Stool Amount Large Stool Color Brown Stool Consistency Loose Weight 54.431 kg - Constitutional Present: no acute distress, chronically ill appearing - Routine HEENT Exam Head: Present: normal inspection Eye: Present: conjunctivae pale - Routine Neck Exam Present: supple. Absent: lymphadenopathy - Routine Respiratory Exam Present: CTAB. Absent: accessory muscle use - Routine Cardiovascular Exam Cardiovascular: Present: RRR, S1, S2 - Routine Abdominal Exam Present: soft - Routine Extremities Exam Present: pulses intact - Routine Skin Exam Present: intact Hem/Onc Consult Result - Labs CBC & Chem 7: 06/29/24 06:00 06/29/24 06:00 Labs: Short CBC 06/28/24 06/29/24 Range/Units 08:25 06:00 WBC 12.8 H (4.8-10.8) X10*3/uL Hgb 7.3 L 7.2 L (12.0-16.0) g/dl Hct 21.3 L 20.9 L* (37.0-47.0) % Plt Count 121 L (160-400) X10*3/uL BMP 06/28/24 06/29/24 08:26 06:00 Sodium 140 141 Potassium 3.4 3.0 L Chloride 104 106 Carbon Dioxide 24 24 BUN 49 H 48 H Creatinine 2.22 H 2.47 H Calcium 7.8 L D 7.9 L Assessment and Plan Patient Active problem list reviewed?: Yes (1) Anemia Status: Chronic Assessment and plan: 1. This is a 78-year-old woman with macrocytic anemia diagnosed in 2017. She is currently admitted for near-syncope, probable vasovagal episode. She is being treated empirically for colitis based on findings on imaging and her symptoms. She has longstanding transfusion-dependent macrocytic anemia. Most recent bone marrow biopsy performed 11/19/2023-erythroid dominant marrow with this erythropoietic maturation. No increase in blasts. Increased storage iron. Findings raise possibility of MDS. Concurrent flow cytometry was negative. NGS profile was sent to [facility], test could not be performed because of insufficient nucleic acid in specimen. NGS panel for myeloid neoplasm Center [facility] on blood sample showed no alterations in CALR, FLT3, IDH1, IDH2, JAK2, MPL, NPM1 and TP53 mutations. She was started on Luspatercept on 12/10/2023. She receives intermittent blood transfusions. She did have a febrile reaction to blood transfusion 2 years ago, transfusion associated hemolytic workup was negative. She gets Tylenol and Benadryl as premedications and tolerates blood transfusions without any problems. It would be prudent to transfuse at least 1 unit PRBC today. She has had some worsening of her kidney function. This could be related to dehydration from ongoing diarrhea. Thank you for the consult, will follow with you. - Time Spent With Patient Time Spent with Patient (in minutes): 20
[2024-06-29 08:22] LABS: Magnesium 2.3 mg/dL (1.6-2.6)
--- NOTE | 2024-06-29 09:27 | MHC.CM.PN ---
Per UR/RN CM, Patient is being changed from OBSERVATION to INPATIENT; CM met with Patient at bedside and addressed IMM with her (original wads given to Patient and a copy has been placed on the chart).
--- NOTE | 2024-06-29 10:23 | MHC.CM.PN ---
Per ROUNDS discussion, Patient is not yet medically cleared for dc (Anemia/may require a transfusion, worsening Kidney function); Patient may benefit from a PT Eval to assist with disposition. CM will continue to follow.
--- NOTE | 2024-06-29 12:29 | PM.CNNEP ---
History of Present Illness Reason for Consult Consult date: 06/29/24 Chief Complaint Chief complaint: Syncope History of Present Illness Narrative: 78-year-old female with a history of CKD followed by Dr Soler admitted with acute colitis found to have worsening kidney function. The patient who has HFrEF 35-40% presents to the ED for evaluation of presyncopal episode at home while on the toilet having a bowel movement. She complains of diarrhea for 3 days and had 1 episode of vomiting. Review of Systems Review of Systems 10 points TOS negative except for pertinent in [facility] Past Medical History Medical History CAD (coronary artery disease) CHF (congestive heart failure) Cervix prolapsed into vagina History of blood transfusion (~02/01/23) Diabetes mellitus HFrEF (heart failure with reduced ejection fraction) Cardiomyopathy Normal colonoscopy Type 2 diabetes mellitus Diverticulosis Irritable bowel syndrome Pulmonary emboli GERD (gastroesophageal reflux disease) Nephrolithiasis Hypoparathyroidism Papillary thyroid carcinoma HTN (hypertension) Polymyalgia rheumatica Hyperglycemia Chronic anemia Anemia Family History Family History Sister CHF (congestive heart failure) Daughter Breast cancer Son Kidney stones Surgical History Surgical History Stented coronary artery Breast mass, right H/O endoscopy History of cholecystectomy H/O total thyroidectomy Social History Social History Household Members: Family Household Members Other:: son Housing: House Do you presently have visiting nurse or other home services: No Alcohol intake: never Comment: Pt refuses fall risk protocol/ precautions- ambulates with steady gait Patient Tobacco Use Status: Never used Tobacco Years Smoked: 30 +/- Smoked in Last 30 Days: No e-Cigarette/Vaping Use: Never Used Second Hand Smoke Exposure: No Use of substances other than those prescribed or required for medical reasons: No Currently Displaying Signs/Symptoms of Drug Intoxication Withdrawal: No Have you been hit, kicked, punched, or otherwise hurt by someone within the past year? 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 Allergies Allergy/AdvReac Type Severity Reaction Status Date / Time esomeprazole [From NEXIUM] Allergy Intermediate CHEST PAIN Verified 06/26/24 13:25 omeprazole [From PRILOSEC] Allergy Intermediate CHEST PAIN Verified 06/26/24 13:25 diphenhydramine Allergy Dizziness Verified 06/26/24 13:25 [From Benadryl] Active Medications: Current Medications Acetaminophen (Acetaminophen 325 Mg Tablet) 650 mg PO Q6H PRN PRN Reason: Pain, Mild 1-3,fever,headache Last Admin: 06/28/24 21:24 Dose: 650 mg Allopurinol (Allopurinol 300 Mg Tablet) 300 mg PO DAILY [facility] Last Admin: 06/29/24 07:50 Dose: 300 mg Ascorbic Acid (Ascorbic Acid 500 Mg Tablet) 500 mg PO DAILY [facility] Last Admin: 06/29/24 07:50 Dose: 500 mg Aspirin (Aspirin Enteric Coated 81 Mg Tablet.Dr) 81 mg PO DAILY [facility] Last Admin: 06/28/24 10:08 Dose: 81 mg Atorvastatin Calcium (Atorvastatin Calcium 80 Mg Tablet) 80 mg PO DAILY [facility] Last Admin: 06/29/24 07:50 Dose: 80 mg Calcium Carbonate (Calcium Carbonate 750 Mg Tab.Chew) 750 mg PO Q4H PRN PRN Reason: Heartburn Carvedilol (Carvedilol 6.25 Mg Tablet) 6.25 mg PO BID [facility]; Protocol Last Admin: 06/27/24 07:55 Dose: 6.25 mg Ceftriaxone Sodium (Ceftriaxone Sodium 1 Gm Vial) 1 gm IVPUSH Q24H [facility] Last Admin: 06/28/24 18:30 Dose: 1 gm Clopidogrel Bisulfate (Clopidogrel Bisulfate 75 Mg Tablet) 75 mg PO DAILY [facility] Last Admin: 06/28/24 10:07 Dose: 75 mg Cyanocobalamin (Cyanocobalamin (Vitamin B-12) 1,000 Mcg Tablet) 5,000 mcg PO DAILY [facility] Last Admin: 06/29/24 07:50 Dose: 5,000 mcg Famotidine (Famotidine 20 Mg Tablet) 20 mg PO DAILY@0630 [facility] Last Admin: 06/29/24 06:21 Dose: 20 mg Folic Acid (Folic Acid 1 Mg Tablet) 1 mg PO DAILY [facility] Last Admin: 06/29/24 07:50 Dose: 1 mg Gabapentin (Gabapentin 100 Mg Capsule) 100 mg PO BEDTIME [facility] Last Admin: 06/26/24 21:31 Dose: 100 mg Heparin Sodium (Porcine) (Heparin Sodium,Porcine 5,000 Unit/Ml Vial) 5,000 unit SUBCUT Q12H [facility] Last Admin: 06/27/24 06:20 Dose: 5,000 unit Hydralazine HCl (Hydralazine Hcl 25 Mg Tablet) 25 mg PO BEDTIME [facility]; Protocol Last Admin: 06/28/24 21:23 Dose: 25 mg Metronidazole (Flagyl) 500 mg in 100 mls @ 100 mls/hr IV Q8H [facility] Last Admin: 06/29/24 11:31 Dose: 100 mls/hr Levothyroxine Sodium (Levothyroxine Sodium 100 Mcg Tablet) 100 mcg PO MOTUTHFRSA@0600 [facility] Last Admin: 06/29/24 06:21 Dose: 100 mcg Magnesium Hydroxide (Milk Of Magnesia 30 Ml Oral.Susp) 30 ml PO DAILY PRN PRN Reason: Constipation Melatonin (Melatonin 3 Mg Tablet) 6 mg PO BEDTIME PRN PRN Reason: Insomnia Non-Formulary Medication (Exemestane) 25 mg PO DAILY [facility] Ondansetron HCl (Ondansetron Hcl 4 Mg/2 Ml Vial) 4 mg IVPUSH Q8H PRN PRN Reason: Nausea and Vomiting Sodium Chloride (0.9 % Sodium Chloride Flush 3 Ml Syringe) 3 ml IVFLUSH QSHIFT [facility] Last Admin: 06/29/24 07:51 Dose: 3 ml Vitamin D (Cholecalciferol (Vitamin D3) 25 Mcg Tablet) 50 mcg PO DAILY [facility] Last Admin: 06/29/24 07:50 Dose: 50 mcg Vitamin E (Vitamin E (Dl,Tocopheryl Acet) 180 Mg (400 Unit) Capsule) 360 mg PO DAILY [facility] Last Admin: 06/29/24 07:51 Dose: 360 mg Home Medications ?Medication ?Instructions ?Recorded ?Confirmed ?Last Taken ?Type aspirin 81 mg tablet,delayed 81 mg PO DAILY 02/29/20 06/26/24 06/26/24 History release cholecalciferol (vitamin D3) 50 50 mcg PO DAILY 02/29/20 06/26/24 06/26/24 History mcg (2,000 unit) tablet (Vitamin D3) cyanocobalamin (vitamin B-12) 5,000 mcg PO DAILY 02/29/20 06/26/24 06/26/24 History 5,000 mcg disintegrating tablet folic acid 1 mg tablet 1 mg PO DAILY 02/29/20 06/26/24 06/26/24 History cranberry 500 mg capsule 500 mg PO DAILY 11/20/22 06/26/24 06/26/24 History ascorbic acid (vitamin C) 500 mg 500 mg PO DAILY 09/23/23 06/26/24 06/26/24 History tablet (Vitamin C) biotin 1 mg tablet 1 mg PO DAILY 06/26/24 06/26/24 06/26/24 History calcium carbonate (Calcium 600) 600 mg PO DAILY 06/26/24 06/26/24 06/26/24 History d-mannose 500 mg capsule (AZO 1,000 mg PO DAILY 06/26/24 06/26/24 06/26/24 History D-Mannose) exemestane 25 mg tablet 25 mg PO DAILY 06/26/24 06/26/24 Unknown History famotidine 20 mg tablet (Pepcid) 20 mg PO DAILY@0630 06/26/24 06/26/24 06/26/24 History gabapentin 100 mg capsule 100 mg PO BEDTIME 06/26/24 06/26/24 06/25/24 History hydralazine 25 mg tablet 25 mg PO BEDTIME 06/26/24 06/26/24 06/25/24 History vitamin E (dl, acetate) 450 mg 450 mg PO DAILY 06/26/24 06/26/24 06/26/24 History (1,000 unit) capsule Physical Exam Vital Signs: Last Vital Signs Temp 96.5 F L 06/29/24 08:00 Pulse 79 06/29/24 08:00 Resp 18 06/29/24 08:00 BP 131/59 L 06/29/24 08:00 Pulse Ox 94 06/29/24 08:00 O2 Del Method Nasal Cannula 06/29/24 04:00 O2 Flow Rate 2 06/29/24 04:00 BMI result Body Mass Index 22.7 Const General: alert and awake HEENT Head: Yes normocephalic Neck Neck: Yes supple Resp Auscultation: clear to auscultation bilaterally Cardio Heart sounds: S1 normal heart sound present and S2 normal heart sound present GI Palpation (GI): Soft to palpation and nontender Extrem Right upper extremity: no edema Results Lab Results 06/29/24 06:00 06/29/24 06:00 Lab results: Chemistry 06/26/24 06/27/24 06/28/24 13:58 05:51 08:26 Sodium 142 142 140 Potassium 3.8 3.4 3.4 Carbon Dioxide 26 24 24 BUN 38 H 43 H 49 H Creatinine 1.83 H 1.94 H 2.22 H Calcium 9.1 8.9 7.8 L D 06/29/24 06:00 Sodium 141 Potassium 3.0 L Carbon Dioxide 24 BUN 48 H Creatinine 2.47 H Calcium 7.9 L Hematology 06/26/24 06/27/24 06/28/24 13:58 05:51 08:25 WBC 11.9 H 16.7 H 12.8 H Hgb 8.1 L 7.6 L 7.3 L Plt Count 170 147 L 121 L 06/29/24 06:00 WBC Hgb 7.2 L Plt Count Assessment and Plan (1) TED (acute kidney injury): Status: Resolved (2) Hypokalemia: Status: Acute (3) HFrEF (heart failure with reduced ejection fraction): Status: Acute (4) CKD (chronic kidney disease) stage 3, GFR 30-59 ml/min: Status: Acute Plan TED due to renal hypoperfusion at risk for acute tubular injury CT scan negative for obstruction known CKD baseline Scr ~ 1.5-2 mg/dl followed by Dr Soler h/o HFrEF LVEF 35-40% at dry weight REC [place] [facility]A no need for IVF for now replace K follow kidney function and electrolytes Procedures Date of Service Date of Service: 06/29/24
[2024-06-29 12:32] LABS: Iron 63 mcg/dL (30-160); Percent Iron Saturation 40 % (15-50); Total Iron Binding Capacity 156 mcg/dL (228-428); Unsaturated Iron Binding 93 ug/dL
[2024-06-29 13:39] LABS: Ferritin 3320 ng/mL (10-250)
[2024-06-29] MEDS: Acetaminophen 325 MG TABLET 650 MG PO ×2 (15:08→22:30)
[2024-06-29] MEDS: diphenhydrAMINE HCL 25 MG CAPSULE PO (15:08)
--- NOTE | 2024-06-29 16:37 | P.PNIM_ITS ---
Subjective Subjective Date of Service: 06/29/24 Interval History: anemia Review of Systems denies any new c/o -no chest pain or sob Physical Exam 2 Vital Signs: Vital Signs: Last Vital Signs Temp 99.0 F 06/29/24 14:18 Pulse 85 06/29/24 14:18 Resp 16 06/29/24 14:18 BP 138/58 L 06/29/24 14:18 Pulse Ox 90 L 06/29/24 12:00 O2 Del Method Nasal Cannula 06/29/24 12:00 O2 Flow Rate 2 06/29/24 12:00 BMI result Body Mass Index 22.7 Appearance: Alert.? Oriented .? cvs: rrr, [id number]. res: clear to auscultation. abd: soft ,nt, bs present. ext pulses present , no cyanosis . neuro: nonfocal. Objective Data Active Medications Acetaminophen (Acetaminophen 325 Mg Tablet) 650 mg PO Q6H PRN PRN Reason: Pain, Mild 1-3,fever,headache Last Admin: 06/28/24 21:24 Dose: 650 mg Documented By: JOHN Allopurinol (Allopurinol 300 Mg Tablet) 300 mg PO DAILY [facility] Last Admin: 06/29/24 07:50 Dose: 300 mg Documented By: CLARY Ascorbic Acid (Ascorbic Acid 500 Mg Tablet) 500 mg PO DAILY [facility] Last Admin: 06/29/24 07:50 Dose: 500 mg Documented By: CLARY Aspirin (Aspirin Enteric Coated 81 Mg Tablet.) 81 mg PO DAILY [facility] Last Admin: 06/28/24 10:08 Dose: 81 mg Documented By: TANIKA Atorvastatin Calcium (Atorvastatin Calcium 80 Mg Tablet) 80 mg PO DAILY [facility] Last Admin: 06/29/24 07:50 Dose: 80 mg Documented By: CLARY Calcium Carbonate (Calcium Carbonate 750 Mg Tab.Chew) 750 mg PO Q4H PRN PRN Reason: Heartburn Carvedilol (Carvedilol 6.25 Mg Tablet) 6.25 mg PO BID [facility]; Protocol Last Admin: 06/27/24 07:55 Dose: 6.25 mg Documented By: NI Ceftriaxone Sodium (Ceftriaxone Sodium 1 Gm Vial) 1 gm IVPUSH Q24H [facility] Last Admin: 06/28/24 18:30 Dose: 1 gm Documented By: TANIKA Clopidogrel Bisulfate (Clopidogrel Bisulfate 75 Mg Tablet) 75 mg PO DAILY [facility] Last Admin: 06/28/24 10:07 Dose: 75 mg Documented By: TANIKA Cyanocobalamin (Cyanocobalamin (Vitamin B-12) 1,000 Mcg Tablet) 5,000 mcg PO DAILY [facility] Last Admin: 06/29/24 07:50 Dose: 5,000 mcg Documented By: CLARY Famotidine (Famotidine 20 Mg Tablet) 20 mg PO DAILY@0630 [facility] Last Admin: 06/29/24 06:21 Dose: 20 mg Documented By: JOHN Folic Acid (Folic Acid 1 Mg Tablet) 1 mg PO DAILY [facility] Last Admin: 06/29/24 07:50 Dose: 1 mg Documented By: CLARY Gabapentin (Gabapentin 100 Mg Capsule) 100 mg PO BEDTIME [facility] Last Admin: 06/26/24 21:31 Dose: 100 mg Documented By: SHARAD Heparin Sodium (Porcine) (Heparin Sodium,Porcine 5,000 Unit/Ml Vial) 5,000 unit SUBCUT Q12H [facility] Last Admin: 06/27/24 06:20 Dose: 5,000 unit Documented By: DEANDRE Hydralazine HCl (Hydralazine Hcl 25 Mg Tablet) 25 mg PO BEDTIME [facility]; Protocol Last Admin: 06/28/24 21:23 Dose: 25 mg Documented By: JOHN Metronidazole (Flagyl) 500 mg in 100 mls @ 100 mls/hr IV Q8H [facility] Last Infusion: 06/29/24 12:37 Dose: Infused Documented By: CLARY Levothyroxine Sodium (Levothyroxine Sodium 100 Mcg Tablet) 100 mcg PO MOTUTHFRSA@0600 [facility] Last Admin: 06/29/24 06:21 Dose: 100 mcg Documented By: JOHN Magnesium Hydroxide (Milk Of Magnesia 30 Ml Oral.Susp) 30 ml PO DAILY PRN PRN Reason: Constipation Melatonin (Melatonin 3 Mg Tablet) 6 mg PO BEDTIME PRN PRN Reason: Insomnia Non-Formulary Medication (Exemestane) 25 mg PO DAILY [facility] Ondansetron HCl (Ondansetron Hcl 4 Mg/2 Ml Vial) 4 mg IVPUSH Q8H PRN PRN Reason: Nausea and Vomiting Sodium Chloride (0.9 % Sodium Chloride Flush 3 Ml Syringe) 3 ml IVFLUSH QSHIFT [facility] Last Admin: 06/29/24 07:51 Dose: 3 ml Documented By: CLARY Vitamin D (Cholecalciferol (Vitamin D3) 25 Mcg Tablet) 50 mcg PO DAILY [facility] Last Admin: 06/29/24 07:50 Dose: 50 mcg Documented By: CLARY Vitamin E (Vitamin E (Dl,Tocopheryl Acet) 180 Mg (400 Unit) Capsule) 360 mg PO DAILY [facility] Last Admin: 06/29/24 07:51 Dose: 360 mg Documented By: CLARY Labs 06/29/24 06:00 06/29/24 06:00 Labs: Laboratory Results - last 24 hr 06/27/24 06/29/24 16:01 06:00 Anion Gap 14 Estim Creat Clear Calc 14.4 Estimated GFR 19 Random Glucose 101 Calcium 7.9 L Magnesium 2.3 Iron 63 TIBC 156 L % Saturation 40 Unsat Iron Binding 93 Ferritin 3320 H Blood Type B Positive Antibody Screen NEGATIVE Crossmatch (AHG) See Detail Assessment and Plan (1) Syncope: Status: Acute Assessment and Plan: 78-year-old female with a PMH significant for?microcytic anemia of unclear etiology, HFrEF 35-40%, CAD s/p stenting of RCA, breast cancer s/p lumpectomy 07/01/2023 on maintenance chemotherapy, hypothyroidism, HTN, and osteoporosis who presents to the ED for evaluation of presyncopal episode at home while on the toilet having a bowel movement. Pt will be admitted to the hospital under observation for treatment and further evaluation of syncopal episodes likely secondary to vasovagal syncope in the setting of acute colitis. Syncopal episodes Pt with two witnessed syncopal episodes while straining on the toilet Likely vasovagal with pt with recent constipation,ekg seems similar orthostatics negative, telemetry seems fine cardiology eval for syncope and dapt . 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 HFrEF:Not in acute exacerbation. hold carvedilol, bumetanide due to bodelrine bp. Hypothyroidism:Continue levothyroxine. ch microcytic anemia of unclear etiology: h/h trending down to 7.2 hold asa/plavix h/h somewhat down from baseline tried 1 prbc on 06/27/24 :had febrile reaction,Notified by pathology that pt has a hx of febrile reactions to transfusions and that pt is okay to receive transfusions as necessary. No additional workup for transfusion reaction necessary. haem/oncology-added 1 prbc d/w cardiology-her troponin this admission negative, no cardiac symptoms, EKG seems similar to prior, hold antiplatelets for today. generlaised weak .: pt eval Full Code DVT Prophylaxis:hold heparin due to anemia.scd. ongoing need -multiple issue -anemia , colitis ,generalised weak : need iv antibiotics Quality Stroke Does the patient have a stroke diagnosis?: No VTE Prior VTE?: No VTE Risk Level:: Medical - moderate - high VTE Device Contraindication: Treatment Not Indicated VTE Drug Contraindication: N/A - Med Ordered
[2024-06-29] MEDS: cefTRIAXone sodium 1 GM VIAL IVPUSH (20:31)
[2024-06-29] MEDS: hydrALAZINE HCl 25 MG TABLET PO (22:29)
[2024-06-30] VITALS (7 sets, daily range): BP systolic 138–167; BP diastolic 63–87; PULSE 68–87; RESP 16–20; TEMP 36.4–37.2; O2SAT 92–97
--- NOTE | 2024-06-30 | ECG_ITS ---
Test Reason : qt check Blood Pressure : */* mmHG Vent. Rate : 86 BPM Atrial Rate : 86 BPM P-R Int : 222 ms QRS Dur : 104 ms QT Int : 408 ms P-R-T Axes : 106 -30 66 degrees QTcB Int : 488 ms Sinus rhythm with 1st degree A-V block with occasional Premature ventricular complexes Left axis deviation Nonspecific T wave abnormality Prolonged QT Abnormal ECG When compared with ECG of 26-Jun-2024 14:20, Premature ventricular complexes are now Present Vent. rate has increased by 29 bpm QT has shortened Referred By: Francisco Javier Lafleur Electronically Signed By: CATARINO GÓMEZ
[2024-06-30] MEDS: metroNIDAZOLE/NS 500 MG/100 ML PIGGYBACK 100 MG IV ×2 (04:00→09:46)
[2024-06-30] MEDS: Acetaminophen 325 MG TABLET 650 MG PO (05:16)
[2024-06-30] MEDS: Levothyroxine Sodium 100 MCG TABLET PO (05:18)
[2024-06-30] MEDS: Famotidine 20 MG TABLET PO (05:19)
[2024-06-30 05:32] LABS: OBS Int Ctl Valid YES; OBS1 POSITIVE (NEGATIVE)
[2024-06-30 06:24] LABS: Hematocrit 27.5 % (37.0-47.0); Hemoglobin 9.4 g/dl (12.0-16.0); Mean Corpuscular HGB Conc 34.2 g/dl (31.0-35.0); Mean Corpuscular Hemoglobin 34.4 pg (27.0-33.0); Mean Corpuscular Volume 100.7 fL (80.0-98.0); Mean Platelet Volume 10.3 fL (9.4-12.3); Platelet Count 154 X10*3/uL (160-400); Red Blood Count 2.73 X10*6/uL (4.20-5.50); White Blood Count 11.9 X10*3/uL (4.8-10.8)
--- NOTE | 2024-06-30 08:51 | PM.CNCAR ---
History of Present Illness History of Present Illness Date of Service: 06/30/24 Chief complaint: Syncope Narrative: This is a cardiology consultation regarding use of antiplatelet drugs. Per discussion with Dr. Lafleur, there is question of myelodysplasia and apparently patient has been anemic and requiring blood transfusions. In this setting, we have been asked to comment on requirement for dual antiplatelet therapy. Recent hemoglobin levels have been in the 7-8 range. Most recently 9.4. Currently, she is denying any cardiac symptoms like angina. At the time of admission, it seems that she had a presyncopal episode while on the toilet and having a bowel movement. Review of Systems Review of Systems: Yes all other systems are reviewed and are negative Constitutional: Constitutional: Reports as per HPI and Reports no additional constitutional complaints Eyes: Eyes: Reports as per HPI and Denies no additional eye complaints ENT: Denies system reviewed and no additional complaints, except as documented and Reports as per HPI Cardiovascular: Cardiovascular: Reports as per HPI, Reports no additional cardiovascular complaints, Denies acrocyanosis, Denies cool extremities, Denies chest pain, Denies leg edema, Denies lightheadedness, Denies palpitations and Denies dyspnea Respiratory: Respiratory: Reports as per HPI, Denies no additional respiratory complaints and Denies dyspnea Gastrointestinal: Gastrointestinal: Reports as per HPI and Denies no additional gastrointestinal complaints Genitourinary: Genitourinary: Reports as per HPI Musculoskeletal: Musculoskeletal: Reports no additional musculoskeletal complaints and Reports as per HPI Integumentary/Breasts: Skin/Breast: Reports system reviewed and no additional complaints, except as docu Neurologic: Reports system reviewed and no additional complaints, except as documented and Reports as per HPI Psychiatric: Psychiatric: Reports no additional psychiatric complaints and Reports as per HPI Endocrine: Endocrine: Reports no additional endocrine complaints, Reports as per HPI and Denies palpitations Hematologic/Lymphatic: Hematologic/Lymphatic: Reports no additional hematologic/lymphatic complaints and Reports as per HPI Allergic/Immunologic: Allergic/Immunologic: Reports no additional allergic/immunologic complaints and Reports as per HPI [facility], [facility] Past Medical History Medical History CAD (coronary artery disease) CHF (congestive heart failure) Cervix prolapsed into vagina History of blood transfusion (~02/01/23) Diabetes mellitus HFrEF (heart failure with reduced ejection fraction) Cardiomyopathy Normal colonoscopy Type 2 diabetes mellitus Diverticulosis Irritable bowel syndrome Pulmonary emboli GERD (gastroesophageal reflux disease) Nephrolithiasis Hypoparathyroidism Papillary thyroid carcinoma HTN (hypertension) Polymyalgia rheumatica Hyperglycemia Chronic anemia Anemia Family History Family History Sister CHF (congestive heart failure) Daughter Breast cancer Son Kidney stones Surgical History Surgical History Stented coronary artery Breast mass, right H/O endoscopy History of cholecystectomy H/O total thyroidectomy Social History Social History Household Members: Family Household Members Other:: son Housing: House Do you presently have visiting nurse or other home services: No Alcohol intake: never Comment: Pt refuses fall risk protocol/ precautions- ambulates with steady gait Patient Tobacco Use Status: Never used Tobacco Years Smoked: 30 +/- Smoked in Last 30 Days: No e-Cigarette/Vaping Use: Never Used Second Hand Smoke Exposure: No Use of substances other than those prescribed or required for medical reasons: No Currently Displaying Signs/Symptoms of Drug Intoxication Withdrawal: No Have you been hit, kicked, punched, or otherwise hurt by someone within the past year? 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 Allergies Allergy/AdvReac Type Severity Reaction Status Date / Time esomeprazole [From NEXIUM] Allergy Intermediate CHEST PAIN Verified 06/26/24 13:25 omeprazole [From PRILOSEC] Allergy Intermediate CHEST PAIN Verified 06/26/24 13:25 diphenhydramine Allergy Dizziness Verified 06/26/24 13:25 [From Benadryl] Active Medications: Current Medications Acetaminophen (Acetaminophen 325 Mg Tablet) 650 mg PO Q6H PRN PRN Reason: Pain, Mild 1-3,fever,headache Last Admin: 06/30/24 05:16 Dose: 650 mg Allopurinol (Allopurinol 300 Mg Tablet) 300 mg PO DAILY [facility] Last Admin: 06/29/24 07:50 Dose: 300 mg Ascorbic Acid (Ascorbic Acid 500 Mg Tablet) 500 mg PO DAILY [facility] Last Admin: 06/29/24 07:50 Dose: 500 mg Aspirin (Aspirin Enteric Coated 81 Mg Tablet.Dr) 81 mg PO DAILY [facility] Last Admin: 06/28/24 10:08 Dose: 81 mg Atorvastatin Calcium (Atorvastatin Calcium 80 Mg Tablet) 80 mg PO DAILY [facility] Last Admin: 06/29/24 07:50 Dose: 80 mg Calcium Carbonate (Calcium Carbonate 750 Mg Tab.Chew) 750 mg PO Q4H PRN PRN Reason: Heartburn Carvedilol (Carvedilol 6.25 Mg Tablet) 6.25 mg PO BID [facility]; Protocol Last Admin: 06/27/24 07:55 Dose: 6.25 mg Ceftriaxone Sodium (Ceftriaxone Sodium 1 Gm Vial) 1 gm IVPUSH Q24H [facility] Last Admin: 06/29/24 20:31 Dose: 1 gm Clopidogrel Bisulfate (Clopidogrel Bisulfate 75 Mg Tablet) 75 mg PO DAILY [facility] Last Admin: 06/28/24 10:07 Dose: 75 mg Cyanocobalamin (Cyanocobalamin (Vitamin B-12) 1,000 Mcg Tablet) 5,000 mcg PO DAILY [facility] Last Admin: 06/29/24 07:50 Dose: 5,000 mcg Famotidine (Famotidine 20 Mg Tablet) 20 mg PO DAILY@0630 [facility] Last Admin: 06/30/24 05:19 Dose: 20 mg Folic Acid (Folic Acid 1 Mg Tablet) 1 mg PO DAILY [facility] Last Admin: 06/29/24 07:50 Dose: 1 mg Gabapentin (Gabapentin 100 Mg Capsule) 100 mg PO BEDTIME [facility] Last Admin: 06/26/24 21:31 Dose: 100 mg Heparin Sodium (Porcine) (Heparin Sodium,Porcine 5,000 Unit/Ml Vial) 5,000 unit SUBCUT Q12H [facility] Last Admin: 06/27/24 06:20 Dose: 5,000 unit Hydralazine HCl (Hydralazine Hcl 25 Mg Tablet) 25 mg PO BEDTIME [facility]; Protocol Last Admin: 06/29/24 22:29 Dose: 25 mg Metronidazole (Flagyl) 500 mg in 100 mls @ 100 mls/hr IV Q8H [facility] Last Infusion: 06/30/24 05:00 Dose: Infused Levothyroxine Sodium (Levothyroxine Sodium 100 Mcg Tablet) 100 mcg PO MOTUTHFRSA@0600 [facility] Last Admin: 06/30/24 05:18 Dose: 100 mcg Magnesium Hydroxide (Milk Of Magnesia 30 Ml Oral.Susp) 30 ml PO DAILY PRN PRN Reason: Constipation Melatonin (Melatonin 3 Mg Tablet) 6 mg PO BEDTIME PRN PRN Reason: Insomnia Non-Formulary Medication (Exemestane) 25 mg PO DAILY [facility] Ondansetron HCl (Ondansetron Hcl 4 Mg/2 Ml Vial) 4 mg IVPUSH Q8H PRN PRN Reason: Nausea and Vomiting Sodium Chloride (0.9 % Sodium Chloride Flush 3 Ml Syringe) 3 ml IVFLUSH QSHIFT [facility] Last Admin: 06/30/24 00:00 Dose: 3 ml Vitamin D (Cholecalciferol (Vitamin D3) 25 Mcg Tablet) 50 mcg PO DAILY [facility] Last Admin: 06/29/24 07:50 Dose: 50 mcg Vitamin E (Vitamin E (Dl,Tocopheryl Acet) 180 Mg (400 Unit) Capsule) 360 mg PO DAILY [facility] Last Admin: 06/29/24 07:51 Dose: 360 mg Home Medications ?Medication ?Instructions ?Recorded ?Confirmed ?Last Taken ?Type aspirin 81 mg tablet,delayed 81 mg PO DAILY 02/29/20 06/26/24 06/26/24 History release cholecalciferol (vitamin D3) 50 50 mcg PO DAILY 02/29/20 06/26/24 06/26/24 History mcg (2,000 unit) tablet (Vitamin D3) cyanocobalamin (vitamin B-12) 5,000 mcg PO DAILY 02/29/20 06/26/24 06/26/24 History 5,000 mcg disintegrating tablet folic acid 1 mg tablet 1 mg PO DAILY 02/29/20 06/26/24 06/26/24 History cranberry 500 mg capsule 500 mg PO DAILY 11/20/22 06/26/24 06/26/24 History ascorbic acid (vitamin C) 500 mg 500 mg PO DAILY 09/23/23 06/26/24 06/26/24 History tablet (Vitamin C) biotin 1 mg tablet 1 mg PO DAILY 06/26/24 06/26/24 06/26/24 History calcium carbonate (Calcium 600) 600 mg PO DAILY 03/11/1306/26/24 06/26/24 History d-mannose 500 mg capsule (AZO 1,000 mg PO DAILY 06/26/24 06/26/24 06/26/24 History D-Mannose) exemestane 25 mg tablet 25 mg PO DAILY 06/26/24 06/26/24 Unknown History famotidine 20 mg tablet (Pepcid) 20 mg PO DAILY@0630 06/26/24 06/26/24 06/26/24 History gabapentin 100 mg capsule 100 mg PO BEDTIME 06/26/24 06/26/24 06/25/24 History hydralazine 25 mg tablet 25 mg PO BEDTIME 06/26/24 06/26/24 06/25/24 History vitamin E (dl, acetate) 450 mg 450 mg PO DAILY 06/26/24 06/26/24 06/26/24 History (1,000 unit) capsule Physical Exam Vital Signs: Vital Signs: Last Vital Signs Temp 98.2 F 06/30/24 07:11 Pulse 78 06/30/24 07:11 Resp 20 06/30/24 07:11 BP 138/71 06/30/24 07:11 Pulse Ox 92 06/30/24 07:11 O2 Del Method Room Air 06/30/24 07:11 O2 Flow Rate 2 06/30/24 03:50 BMI result Body Mass Index 22.7 Const: General: comfortable and no acute distress Orientation/consciousness: patient oriented x3 HEENT: Other: Unremarkable Head: Yes normal to inspection Neck: Neck: Yes normal visual inspection Chest: Chest palpation & inspection: normal inspection of the chest Resp: Auscultation: clear to auscultation bilaterally Cardio: Palpation: normal PMI Heart sounds: S1 normal heart sound present, S2 normal heart sound present, no gallops, no murmurs and no rubs GI: Palpation (GI): Soft to palpation Back/Spine/Pelvis: Other: unremarkable Skin: General skin exam: no rashes or lesions noted Neuro: General: patient oriented x3 Extrem: General: Yes normal to inspection Psych: Mental Status: mental status grossly normal Objective Labs and Meds 06/30/24 05:47 06/29/24 06:00 Lab results: Laboratory Results - last 24 hr 06/27/24 06/29/24 06/30/24 16:01 06:00 05:01 WBC RBC Hgb Hct MCV MCH MCHC RDW Plt Count MPV Absolute Nucleated RBC Nucleated RBC % (auto) Iron 63 TIBC 156 L % Saturation 40 Unsat Iron Binding 93 Ferritin 3320 H Stool Occult Blood POSITIVE Blood Type B Positive Antibody Screen NEGATIVE Crossmatch (AHG) See Detail 06/30/24 05:47 WBC 11.9 H RBC 2.73 L D Hgb 9.4 L D Hct 27.5 L D MCV 100.7 H MCH 34.4 H MCHC 34.2 RDW 18.0 H Plt Count 154 L D MPV 10.3 Absolute Nucleated RBC 0.000 Nucleated RBC % (auto) 0.0 Iron TIBC % Saturation Unsat Iron Binding Ferritin Stool Occult Blood Blood Type Antibody Screen Crossmatch (AHG) ECG Interpretation: EKG with sinus bradycardia at 57/Min; LA prolongation to 212 milliseconds; cannot exclude old anterior infarct; suggestion of QT prolongation Assessment and Plan (1) Anemia: Status: Chronic Cardiac catheterization data reviewed from 09/09/2023. At that time, drug-eluting stent to mid RCA. 70% residual circumflex stenosis, managed medically. On aspirin/Plavix. Due to concern for anemia, we can just stop one of the above. Either is acceptable. (2) Syncope: Status: Acute This happened in setting of straining for bowel movement. Per ER documentation as well as CT scan, constipation might be the etiology for this. No specific implications from cardiac. (3) Prolonged QT interval: Status: Acute QT prolongation in the initial EKG. Procedures Date of Service Date of Service: 06/30/24
[2024-06-30 09:08] LABS: Anion Gap 13 (12-20); Blood Urea Nitrogen 36 mg/dL (9-16); Calcium 7.5 mg/dL (8.4-10.2); Carbon Dioxide 22 mmol/L (22-29); Chloride 109 mmol/L (96-108); Creatinine Clr Calc Pharmacy 16.2; Estimated Glomerular Filt Rate 22; Glucose Random 111 mg/dL (60-115); Sodium 141 mmol/L (135-145)
[2024-06-30 09:12] LABS: Potassium 2.9 mmol/L (3.3-5.1)
[2024-06-30 09:34] LABS: Magnesium 2.3 mg/dL (1.6-2.6)
[2024-06-30 09:38] LABS: Folate 16.3 ng/mL (> or = 4.0); Vitamin B12 > 2000 pg/mL (200-900)
[2024-06-30] MEDS: Cholecalciferol (Vitamin D3) 25 MCG TABLET 50 MCG PO (09:45)
[2024-06-30] MEDS: allopurinoL 300 MG TABLET PO (09:45)
[2024-06-30] MEDS: 0.9 % Sodium Chloride Flush 3 ML SYRINGE IVFLUSH ×3 (09:45→16:45)
[2024-06-30] MEDS: Folic Acid 1 MG TABLET PO (09:46)
[2024-06-30] MEDS: Cyanocobalamin (Vitamin B-12) 1,000 MCG TABLET 5000 MCG PO (09:46)
[2024-06-30] MEDS: Potassium Chloride/H20 10 MEQ/100 ML PIGGYBACK 100 MEQ IV (09:46)
[2024-06-30] MEDS: Ascorbic Acid 500 MG TABLET PO (09:46)
[2024-06-30] MEDS: Atorvastatin Calcium 80 MG TABLET PO (09:46)
[2024-06-30] MEDS: Potassium Chloride ER 20 MEQ TAB.ER.PRT 40 MEQ PO (09:46)
--- NOTE | 2024-06-30 12:17 | HO.PM.IMPN ---
Subjective Subjective Date of Service: 06/30/24 Interval History: hypokalemia Review of Systems Abdominal pain improved Had 1 loose bowel movement Denies any chest pain or shortness of breath or any blood in the stool Physical Exam Vital Signs: Vital Signs: Last Vital Signs Temp 97.9 F 06/30/24 10:54 Pulse 73 06/30/24 10:54 Resp 20 06/30/24 10:54 BP 152/73 H 06/30/24 10:54 Pulse Ox 93 06/30/24 10:54 O2 Del Method Room Air 06/30/24 10:54 O2 Flow Rate 2 06/30/24 03:50 BMI result Body Mass Index 22.7 Appearance: Alert.? Oriented .? cvs: rrr, [id number]. res: clear to auscultation. abd: soft ,nt, bs present. ext pulses present , no cyanosis . neuro: nonfocal. Objective Data Active Medications Acetaminophen (Acetaminophen 325 Mg Tablet) 650 mg PO Q6H PRN PRN Reason: Pain, Mild 1-3,fever,headache Last Admin: 06/30/24 05:16 Dose: 650 mg Documented By: JOHN Allopurinol (Allopurinol 300 Mg Tablet) 300 mg PO DAILY [facility] Last Admin: 06/30/24 09:45 Dose: 300 mg Documented By: RENY Amoxicillin/Clavulanate Potassium (Amoxicillin/Potassium Clav 4,000 Mg/50 Ml Susp.Recon) 250 mg PO BID [facility] Ascorbic Acid (Ascorbic Acid 500 Mg Tablet) 500 mg PO DAILY [facility] Last Admin: 06/30/24 09:46 Dose: 500 mg Documented By: RENY Aspirin (Aspirin Enteric Coated 81 Mg Tablet.Dr) 81 mg PO DAILY [facility] Last Admin: 06/28/24 10:08 Dose: 81 mg Documented By: TANIKA Atorvastatin Calcium (Atorvastatin Calcium 80 Mg Tablet) 80 mg PO DAILY [facility] Last Admin: 06/30/24 09:46 Dose: 80 mg Documented By: RENY Calcium Carbonate (Calcium Carbonate 750 Mg Tab.Chew) 750 mg PO Q4H PRN PRN Reason: Heartburn Carvedilol (Carvedilol 6.25 Mg Tablet) 6.25 mg PO BID [facility]; Protocol Last Admin: 06/27/24 07:55 Dose: 6.25 mg Documented By: NI Clopidogrel Bisulfate (Clopidogrel Bisulfate 75 Mg Tablet) 75 mg PO DAILY [facility] Last Admin: 06/28/24 10:07 Dose: 75 mg Documented By: TANIKA Clopidogrel Bisulfate (Clopidogrel Bisulfate 75 Mg Tablet) 75 mg PO ONCE ONE Stop: 06/30/24 12:16 Cyanocobalamin (Cyanocobalamin (Vitamin B-12) 1,000 Mcg Tablet) 5,000 mcg PO DAILY [facility] Last Admin: 06/30/24 09:46 Dose: 5,000 mcg Documented By: RENY Famotidine (Famotidine 20 Mg Tablet) 20 mg PO DAILY@0630 [facility] Last Admin: 06/30/24 05:19 Dose: 20 mg Documented By: JOHN Folic Acid (Folic Acid 1 Mg Tablet) 1 mg PO DAILY [facility] Last Admin: 06/30/24 09:46 Dose: 1 mg Documented By: RENY Gabapentin (Gabapentin 100 Mg Capsule) 100 mg PO BEDTIME [facility] Last Admin: 06/26/24 21:31 Dose: 100 mg Documented By: SHARAD Heparin Sodium (Porcine) (Heparin Sodium,Porcine 5,000 Unit/Ml Vial) 5,000 unit SUBCUT Q12H [facility] Last Admin: 06/27/24 06:20 Dose: 5,000 unit Documented By: DEANDRE Hydralazine HCl (Hydralazine Hcl 25 Mg Tablet) 25 mg PO BEDTIME [facility]; Protocol Last Admin: 06/29/24 22:29 Dose: 25 mg Documented By: JOHN Levothyroxine Sodium (Levothyroxine Sodium 100 Mcg Tablet) 100 mcg PO MOTUTHFRSA@0600 [facility] Last Admin: 06/30/24 05:18 Dose: 100 mcg Documented By: JOHN Magnesium Hydroxide (Milk Of Magnesia 30 Ml Oral.Susp) 30 ml PO DAILY PRN PRN Reason: Constipation Melatonin (Melatonin 3 Mg Tablet) 6 mg PO BEDTIME PRN PRN Reason: Insomnia Non-Formulary Medication (Exemestane) 25 mg PO DAILY [facility] Ondansetron HCl (Ondansetron Hcl 4 Mg/2 Ml Vial) 4 mg IVPUSH Q8H PRN PRN Reason: Nausea and Vomiting Sodium Chloride (0.9 % Sodium Chloride Flush 3 Ml Syringe) 3 ml IVFLUSH QSHIFT [facility] Last Admin: 06/30/24 09:45 Dose: 3 ml Documented By: RENY Vitamin D (Cholecalciferol (Vitamin D3) 25 Mcg Tablet) 50 mcg PO DAILY [facility] Last Admin: 06/30/24 09:45 Dose: 50 mcg Documented By: RENY Vitamin E (Vitamin E (Dl,Tocopheryl Acet) 180 Mg (400 Unit) Capsule) 360 mg PO DAILY [facility] Last Admin: 06/30/24 10:15 Dose: Not Given Documented By: RENY Non-Admin Reason: Patient Refused Labs 06/30/24 05:47 06/30/24 08:12 Labs: Laboratory Results - last 24 hr 06/27/24 06/29/24 06/30/24 16:01 06:00 05:01 MCV MCH MCHC RDW Plt Count MPV Absolute Nucleated RBC Nucleated RBC % (auto) Anion Gap Estim Creat Clear Calc Estimated GFR Random Glucose Calcium Magnesium Iron 63 TIBC 156 L % Saturation 40 Unsat Iron Binding 93 Ferritin 3320 H Vitamin B12 Folate Stool Occult Blood POSITIVE Blood Type B Positive Antibody Screen NEGATIVE Crossmatch (AHG) See Detail 06/30/24 06/30/24 05:47 08:12 MCV 100.7 H MCH 34.4 H MCHC 34.2 RDW 18.0 H Plt Count 154 L D MPV 10.3 Absolute Nucleated RBC 0.000 Nucleated RBC % (auto) 0.0 Anion Gap 13 Estim Creat Clear Calc 16.2 Estimated GFR 22 Random Glucose 111 Calcium 7.5 L Magnesium 2.3 Iron TIBC % Saturation Unsat Iron Binding Ferritin Vitamin B12 > 2000 H Folate 16.3 Stool Occult Blood Blood Type Antibody Screen Crossmatch (AHG) Assessment and Plan (1) Prolonged QT interval: Status: Acute (2) CKD (chronic kidney disease) stage 3, GFR 30-59 ml/min: Status: Acute (3) Hypokalemia: Status: Acute Plan 78-year-old female with a PMH significant for?microcytic anemia of unclear etiology, HFrEF 35-40%, CAD s/p stenting of RCA, breast cancer s/p lumpectomy 07/01/2023 on maintenance chemotherapy, hypothyroidism, HTN, and osteoporosis who presents to the ED for evaluation of presyncopal episode at home while on the toilet having a bowel movement. Pt will be admitted to the hospital under observation for treatment and further evaluation of syncopal episodes likely secondary to vasovagal syncope in the setting of acute colitis. Syncopal episodes Pt with two witnessed syncopal episodes while straining on the toilet Likely vasovagal with pt with recent constipation,ekg seems similar orthostatics negative, telemetry seems fine cardiology eval for syncope and dapt - ekg qtc improvin ,also recaomended to continue plavix. colitis: Pt with multiple episodes of diarrhea while in the ED, some abd pain/cramping, N/V x1 CT with evidence of fat stranding and pericolic fluid suggestive of colitis treated ceftriaxone and metronidazole, started 06/26/2024, now swtched to po augmentin C diff, stool studies-negative Diet as tolerated. cristela on ckd: improving acute hypokalemia : added po potassium/iv potassium moniter bmp closely magnesium normal. Fluctuating fingersticks: Will check hemoglobin A1c. Continue cardiac diet until then. ch microcytic anemia of unclear etiology: s/p 1 prbc -h/h 9.4/27.5 tried 1 prbc on 06/27/24 :had febrile reaction,Notified by pathology that pt has a hx of febrile reactions to transfusions and that pt is okay to receive transfusions as necessary. No additional workup for transfusion reaction necessary. 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 HFrEF:Not in acute exacerbation. hold carvedilol, bumetanide due to bodelrine bp. Hypothyroidism:Continue levothyroxine. generlaised weak .: pt eval Full Code DVT Prophylaxis:hold heparin due to anemia.scd. ongoing need -multiple issue -anemia , colitis ,generalised weak : need iv antibiotics Quality Stroke Does the patient have a stroke diagnosis?: No VTE Prior VTE?: No VTE Risk Level:: Medical - moderate - high VTE Device Contraindication: Treatment Not Indicated VTE Drug Contraindication: N/A - Med Ordered
[2024-06-30 12:49] LABS: Estimated Average Glucose 108 mg/dL; Hemoglobin A1C 91.4073 umol/L; Hemoglobin A1c % 5.4 % (<6.0)
--- NOTE | 2024-06-30 13:07 | PM.HEMONCPN ---
Medical Summary - Medical Summary Date of Service: 06/30/24 Chief complaint: Diarrhea, fatigue Primary Care Provider: Paul Dickinson MD [employer] Utilized?: No - [facility] Speaking Interval History Interval history: Tonia Hernandez is a 78 year old female well known to hematology service for longstanding anemia who has been admitted to the hospital for syncope, probably related to vasovagal episode. 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 She is currently receiving Luspatercept. Patient also was diagnosed with right-sided breast cancer in 07/10/2023 and she is on aromatase inhibitor therapy. Patient states that about 3 days prior to admission she developed some diarrhea. However on the day of admission she could not move her bowels and she was straining at stool when she experienced dizziness and lightheadedness. She experienced similar symptoms while on the commode in the ED. vital signs indicated hypotension with blood pressure of 77/43. Stable macrocytic anemia of 8.1/24.0. No significant electrolyte abnormalities. Creatinine 1.83, around baseline. Renal function baseline. Troponins WNL and flat at 15.4 and 13.7. BNP chronically elevated around baseline. CXR showed no acute cardiopulmonary process. CT?of abdomen and pelvis with moderate to significant constipation with diffuse diverticulosis. 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 EKG demonstrated normal sinus rhythm of [address] elevations or depressions. Pt was treated with Mag sulfate and calcium gluconate. She continues to feel tired. She denies any chest pain or shortness of breath. She reports diarrhea and some crampy feeling in her lower abdomen. She thinks antibiotics are causing these symptoms. Review of Systems - Neurologic Reports no additional neurologic complaints, Reports as per [facility] Medical History: Medical History (Last Reviewed 06/26/24 @ 23:11 by BERT Lynch) Anemia CAD (coronary artery disease) Cardiomyopathy Cervix prolapsed into vagina CHF (congestive heart failure) Chronic anemia Diabetes mellitus Diverticulosis GERD (gastroesophageal reflux disease) HFrEF (heart failure with reduced ejection fraction) History of blood transfusion Onset Date: ~02/01/23 HTN (hypertension) Hyperglycemia Hypoparathyroidism Irritable bowel syndrome Nephrolithiasis Normal colonoscopy Papillary thyroid carcinoma Polymyalgia rheumatica Pulmonary emboli Type 2 diabetes mellitus Family History: Family History (Last Reviewed 06/26/24 @ 23:11 by BERT Lynch) Sister CHF (congestive heart failure) Daughter Breast cancer Son Kidney stones Surgical History: Surgical History (Last Reviewed 06/26/24 @ 23:11 by BERT Lynch) Breast mass, right H/O endoscopy H/O total thyroidectomy History of cholecystectomy Stented coronary artery Social History: Social History (Last Reviewed 06/26/24 @ 23:11 by BERT Lynch) Living Situation History: Household Members: Family Household Members Other:: son Housing: House Do you presently have visiting nurse or other home services: No Alcohol History Details: 1. How often do you have a drink containing alcohol?: a. Never AUDIT-C Alcohol total score: 0 Currently Displaying Signs/Symptoms of Alcohol Withdrawal: No Tobacco History: Patient Tobacco Use Status: Never used Tobacco Years Smoked: 30 +/- Smoked in Last 30 Days: No e-Cigarette/Vaping Use: Never Used Second Hand Smoke Exposure: No Substance Use History: Use of substances other than those prescribed or required for medical reasons: No Currently Displaying Signs/Symptoms of Drug Intoxication Withdrawal: No Domestic Abuse History: Have you been hit, kicked, punched, or otherwise hurt by someone within the past year? If so, by whom?: No Is there a partner from a previous relationship who is making you feel unsafe now?: No Are you made to feel afraid or neglected: No Advance Directives: Advance Directives: Yes Advance Directives Information Provided: No Advance Directives on File: No Advance Directives Date on File: 06/27/24 Homicidal Assessment: Do you have a plan to hurt others: No Plan Nutrition Assessment: Patient : No Occupation Assessmet: service: No Current occupational status: retired Current occupation: Right Handed Home Medications and Allergies Current Medications: Current Medications Acetaminophen (Acetaminophen 325 Mg Tablet) 650 mg PO Q6H PRN PRN Reason: Pain, Mild 1-3,fever,headache Last Admin: 06/30/24 05:16 Dose: 650 mg Allopurinol (Allopurinol 300 Mg Tablet) 300 mg PO DAILY [facility] Last Admin: 06/30/24 09:45 Dose: 300 mg Amoxicillin/Clavulanate Potassium (Amoxicillin/Potassium Clav 4,000 Mg/50 Ml Susp.Recon) 250 mg PO BID [facility] Ascorbic Acid (Ascorbic Acid 500 Mg Tablet) 500 mg PO DAILY [facility] Last Admin: 06/30/24 09:46 Dose: 500 mg Aspirin (Aspirin Enteric Coated 81 Mg Tablet.Dr) 81 mg PO DAILY [facility] Last Admin: 06/28/24 10:08 Dose: 81 mg Atorvastatin Calcium (Atorvastatin Calcium 80 Mg Tablet) 80 mg PO DAILY [facility] [place] Last Admin: 06/30/24 09:46 Dose: 80 mg Calcium Carbonate (Calcium Carbonate 750 Mg Tab.Chew) 750 mg PO Q4H PRN PRN Reason: Heartburn Carvedilol (Carvedilol 6.25 Mg Tablet) 6.25 mg PO BID [facility]; Protocol Last Admin: 06/27/24 07:55 Dose: 6.25 mg Clopidogrel Bisulfate (Clopidogrel Bisulfate 75 Mg Tablet) 75 mg PO DAILY [facility] [place] Last Admin: 06/28/24 10:07 Dose: 75 mg Cyanocobalamin (Cyanocobalamin (Vitamin B-12) 1,000 Mcg Tablet) 5,000 mcg PO DAILY [facility] [place] Last Admin: 06/30/24 09:46 Dose: 5,000 mcg Famotidine (Famotidine 20 Mg Tablet) 20 mg PO DAILY@0630 [facility] Last Admin: 06/30/24 05:19 Dose: 20 mg Folic Acid (Folic Acid 1 Mg Tablet) 1 mg PO DAILY [facility] Last Admin: 06/30/24 09:46 Dose: 1 mg Gabapentin (Gabapentin 100 Mg Capsule) 100 mg PO BEDTIME [facility] Last Admin: 06/26/24 21:31 Dose: 100 mg Heparin Sodium (Porcine) (Heparin Sodium,Porcine 5,000 Unit/Ml Vial) 5,000 unit SUBCUT Q12H [facility] Last Admin: 06/27/24 06:20 Dose: 5,000 unit Hydralazine HCl (Hydralazine Hcl 25 Mg Tablet) 25 mg PO BEDTIME [facility]; Protocol Last Admin: 06/29/24 22:29 Dose: 25 mg Levothyroxine Sodium (Levothyroxine Sodium 100 Mcg Tablet) 100 mcg PO MOTUTHFRSA@0600 [facility] Last Admin: 06/30/24 05:18 Dose: 100 mcg Magnesium Hydroxide (Milk Of Magnesia 30 Ml Oral.Susp) 30 ml PO DAILY PRN PRN Reason: Constipation Melatonin (Melatonin 3 Mg Tablet) 6 mg PO BEDTIME PRN PRN Reason: Insomnia Non-Formulary Medication (Exemestane) 25 mg PO DAILY [facility] [place] Ondansetron HCl (Ondansetron Hcl 4 Mg/2 Ml Vial) 4 mg IVPUSH Q8H PRN PRN Reason: Nausea and Vomiting Sodium Chloride (0.9 % Sodium Chloride Flush 3 Ml Syringe) 3 ml IVFLUSH QSHIFT [facility] [place] Last Admin: 06/30/24 09:45 Dose: 3 ml Vitamin D (Cholecalciferol (Vitamin D3) 25 Mcg Tablet) 50 mcg PO DAILY [facility] [place] Last Admin: 06/30/24 09:45 Dose: 50 mcg Vitamin E (Vitamin E (Dl,Tocopheryl Acet) 180 Mg (400 Unit) Capsule) 360 mg PO DAILY [facility] [place] Last Admin: 06/30/24 10:15 Dose: Not Given Home Medications ?Medication ?Instructions ?Recorded ?Confirmed ?Type aspirin 81 mg tablet,delayed 81 mg PO DAILY 02/29/20 06/26/24 History release cholecalciferol (vitamin D3) 50 50 mcg PO DAILY 02/29/20 06/26/24 History mcg (2,000 unit) tablet (Vitamin D3) cyanocobalamin (vitamin B-12) 5,000 mcg PO DAILY 02/29/20 06/26/24 History 5,000 mcg disintegrating tablet folic acid 1 mg tablet 1 mg PO DAILY 02/29/20 06/26/24 History cranberry 500 mg capsule 500 mg PO DAILY 11/20/22 06/26/24 History ascorbic acid (vitamin C) 500 mg 500 mg PO DAILY 09/23/23 06/26/24 History tablet (Vitamin C) biotin 1 mg tablet 1 mg PO DAILY 06/26/24 06/26/24 History calcium carbonate (Calcium 600) 600 mg PO DAILY 06/26/24 06/26/24 History d-mannose 500 mg capsule (AZO 1,000 mg PO DAILY 06/26/24 06/26/24 History D-Mannose) exemestane 25 mg tablet 25 mg PO DAILY 06/26/24 06/26/24 History famotidine 20 mg tablet (Pepcid) 20 mg PO DAILY@0630 06/26/24 06/26/24 History gabapentin 100 mg capsule 100 mg PO BEDTIME 06/26/24 06/26/24 History hydralazine 25 mg tablet 25 mg PO BEDTIME 06/26/24 06/26/24 History vitamin E (dl, acetate) 450 mg 450 mg PO DAILY 06/26/24 06/26/24 History (1,000 unit) capsule Allergies Allergy/AdvReac Type Severity Reaction Status Date / Time esomeprazole [From NEXIUM] Allergy Intermediate CHEST PAIN Verified 06/26/24 13:25 omeprazole [From PRILOSEC] Allergy Intermediate CHEST PAIN Verified 06/26/24 13:25 diphenhydramine Allergy Dizziness Verified 06/26/24 13:25 [From Benadryl] Exam Vital signs: Vital Signs Temp 97.9 F 06/30/24 10:54 Pulse 73 06/30/24 10:54 Resp 20 06/30/24 10:54 BP 152/73 H 06/30/24 10:54 Pulse Ox 93 06/30/24 10:54 O2 Del Method Room Air 06/30/24 10:54 O2 Flow Rate 2 06/30/24 03:50 Intake & Output 06/29/24 06/30/24 06/30/24 18:59 06:59 18:59 Intake Total 920 / 1120 200 / 1120 121.667 / 121.667 Output Total 200 / 500 300 / 500 Balance 720 / 620 -100 / 620 121.667 / 121.667 Urine Output (Average ml/kg/hr) 0.31 0.46 0.46 Intake: Intake, Oral Amount 540 / 540 Intake (Blood Product) Amount 280 / 280 Red Blood Cells (E0336) Unit 0 / 0 [id number] Red Blood Cells (E0336) Unit 280 / 280 [id number] Intake, IV Amount 100 / 300 200 / 300 121.667 / 121.667 Potassium Chloride/H20 10 meq 100 / 100 In 100 ml @ 100 mls/hr IV Q1H [facility] Rx#:[id number] metroNIDAZOLE/NS 500 mg In 100 100 / 300 200 / 300 21.667 / 21.667 ml @ 100 mls/hr IV Q8H [facility] Rx#: [id number] Output: Output, Urine Amount 200 / 500 300 / 500 Other: Breakfast % Eaten 50% Lunch % Eaten 50% Dinner % Eaten 50% Number of Incontinent Voids 1 Number of Unmeasured Voids 0 1 Number of Bowel Movements 0 1 Urine Bathroom Urine Color Tea Last Bowel Movement 06/29/24 06/30/24 Stool Incontinent Stool Amount Moderate Stool Color Brown Stool Consistency Mushy Weight 54.431 kg BMI result Body Mass Index 22.7 - Constitutional Present: no acute distress, chronically ill appearing - Routine HEENT Exam Head: Present: normal inspection - Routine Respiratory Exam Present: CTAB. Absent: accessory muscle use - Routine Cardiovascular Exam Cardiovascular: Present: RRR, S1, S2 - Routine Abdominal Exam Present: soft - Routine Extremities Exam Present: pulses intact - Routine Skin Exam Present: intact - Detailed Neurological Exam: Coma Scale Eye Opening: Spontaneous (4) Data - Labs CBC & Chem 7: 06/30/24 05:47 06/30/24 08:12 Labs: Laboratory Last Values WBC 11.9 X10*3/uL (4.8-10.8) H 06/30/24 05:47 RBC 2.73 X10*6/uL (4.20-5.50) L D 06/30/24 05:47 Hgb 9.4 g/dl (12.0-16.0) L D 06/30/24 05:47 Hct 27.5 % (37.0-47.0) L D 06/30/24 05:47 MCV 100.7 fL (80.0-98.0) H 06/30/24 05:47 MCH 34.4 pg (27.0-33.0) H 06/30/24 05:47 MCHC 34.2 g/dl (31.0-35.0) 06/30/24 05:47 RDW 18.0 % (11.0-16.0) H 06/30/24 05:47 Plt Count 154 X10*3/uL (160-400) L D 06/30/24 05:47 MPV 10.3 fL (9.4-12.3) 06/30/24 05:47 Immature Gran % (Auto) 0.6 % (0.0-0.4) H 06/26/24 13:58 Neut % (Auto) 81.6 % (45-73) H 06/26/24 13:58 Lymph % (Auto) 9.2 % (20-40) L 06/26/24 13:58 Taylor % (Auto) 6.3 % (2-11) 06/26/24 13:58 Eos % (Auto) 1.9 % (0-4) 06/26/24 13:58 Baso % (Auto) 0.4 % (0-2) 06/26/24 13:58 Lymph # (Auto) 1.1 X10*3/uL (1.2-4.9) L 06/26/24 13:58 Taylor # (Auto) 0.8 X10*3/uL (0.1-1.2) 06/26/24 13:58 Eos # (Auto) 0.2 X10*3/uL (0.0-0.4) 06/26/24 13:58 Baso # (Auto) 0.1 X10*3/uL (0.0-0.2) 06/26/24 13:58 Abs Immat Gran (auto) 0.07 X10*3/uL (0.00-0.03) H 06/26/24 13:58 Absolute Neuts (auto) 9.7 x10*3/uL (2.0-8.3) H 06/26/24 13:58 Absolute Nucleated RBC 0.000 X10*3/uL (0.0-0.012) 06/30/24 05:47 Nucleated RBC % (auto) 0.0 /100WBC (0.0-0.2) 06/30/24 05:47 VBG pH 7.45 (7.32-7.43) H 06/27/24 17:10 VBG pCO2 41 mmHg 06/27/24 17:10 VBG pO2 144 mmHg 06/27/24 17:10 VBG HCO3 29 mmol/L (22-26) H 06/27/24 17:10 VBG O2 Saturation TNP 06/27/24 17:10 VBG Base Excess 5.1 mmol/L 06/27/24 17:10 Sodium 141 mmol/L (135-145) 06/30/24 08:12 Potassium 2.9 mmol/L (3.3-5.1) L* 06/30/24 08:12 Chloride 109 mmol/L (96-108) H 06/30/24 08:12 Carbon Dioxide 22 mmol/L (22-29) 06/30/24 08:12 Anion Gap 13 (12-20) 06/30/24 08:12 BUN 36 mg/dL (9-16) H 06/30/24 08:12 Creatinine 2.19 mg/dL (0.5-1.4) H 06/30/24 08:12 Estim Creat Clear Calc 16.2 06/30/24 08:12 Estimated GFR 22 06/30/24 08:12 Random Glucose 111 mg/dL (60-115) 06/30/24 08:12 Estimat Average Glucose 108 mg/dL 06/30/24 05:47 Hemoglobin A1c % 5.4 % (<6.0) 06/30/24 05:47 Calcium 7.5 mg/dL (8.4-10.2) L 06/30/24 08:12 Magnesium 2.3 mg/dL (1.6-2.6) 06/30/24 08:12 Iron 63 mcg/dL (30-160) 06/29/24 06:00 TIBC 156 mcg/dL (228-428) L 06/29/24 06:00 % Saturation 40 % (15-50) 06/29/24 06:00 Unsat Iron Binding 93 ug/dL 06/29/24 06:00 Ferritin 3320 ng/mL (10-250) H 06/29/24 06:00 Total Bilirubin 0.7 mg/dL (0.0-1.0) 06/26/24 13:58 Direct Bilirubin 0.2 mg/dL (0.0-0.5) 06/26/24 13:58 AST 19 U/L (5-31) 06/26/24 13:58 ALT 10 U/L (0-31) 06/26/24 13:58 Alkaline Phosphatase 95 U/L (39-117) 06/26/24 13:58 Troponin I High Sens 13.7 ng/L (<3.5-17.0) 06/26/24 16:56 B-Natriuretic Peptide 1299 pg/mL (<100) H 06/26/24 13:58 Total Protein 7.0 g/dL (6.5-8.0) 06/26/24 13:58 Albumin 3.7 g/dL (3.5-5.0) 06/26/24 13:58 Lipase 43 U/L (8-78) 06/26/24 13:58 Vitamin B12 > 2000 pg/mL (200-900) H 06/30/24 08:12 Folate 16.3 ng/mL (> or = 4.0) 06/30/24 08:12 Urine Hemoglobin Negative 06/28/24 11:19 Stool Occult Blood POSITIVE (NEGATIVE) 06/30/24 05:01 Stl C. cayetanensis PCR Not Detected (Not Detect.) 06/26/24 20:48 Stool Rotavirus A PCR Not Detected (Not Detect.) 06/26/24 20:48 Stl Adenov F 40/41 PCR Not Detected (Not Detect.) 06/26/24 20:48 Stool Astrovirus (PCR) Not Detected (Not Detect.) 06/26/24 20:48 Stool Campylobacter PCR Not Detected (Not Detect.) 06/26/24 20:48 Stool Cryptosporidium PCR Not Detected (Not Detect.) 06/26/24 20:48 Stl Sh Tox Pr E STEC PCR Not Detected (Not Detect.) 06/26/24 20:48 Stool E coli O157 PCR Not applicable (Not Detect.) 06/26/24 20:48 Stl Enterotoxigenic E PCR Not Detected (Not Detect.) 06/26/24 20:48 Stool EPEC (PCR) Not Detected (Not Detect.) 06/26/24 20:48 Stool EAEC (PCR) Not Detected (Not Detect.) 06/26/24 20:48 Stl E. histolytica PCR Not Detected (Not Detect.) 06/26/24 20:48 Stool Giardia Lamblia PCR Not Detected (Not Detect.) 06/26/24 20:48 Stl P. shigelloides PCR Not Detected (Not Detect.) 06/26/24 20:48 Stool Salmonella PCR Not Detected (Not Detect.) 06/26/24 20:48 Stool Sapovirus (PCR) Not Detected (Not Detect.) 06/26/24 20:48 Stl Shigella/EIEC PCR Not Detected (Not Detect.) 06/26/24 20:48 St Y.enterocolitica PCR Not Detected (Not Detect.) 06/26/24 20:48 Stool Vibrio (PCR) Not Detected (Not Detect.) 06/26/24 20:48 Stl Vibrio cholerae PCR Not Detected (Not Detect.) 06/26/24 20:48 Stl Norovirus GI/GII PCR Not Detected (Not Detect.) 06/26/24 20:48 C. difficile Tox B Gene NEGATIVE (Negative) 06/26/24 20:48 Influenza Type A (PCR) NEGATIVE (Negative) 06/27/24 22:02 Influenza Type B (PCR) NEGATIVE (Negative) 06/27/24 22:02 RSV RNA Qual (PCR) NEGATIVE (Negative) 06/27/24 22:02 SARS-CoV-2 RNA (RT-PCR) NEGATIVE (Negative) 06/27/24 22:02 Blood Type B Positive 06/27/24 16:01 Antibody Screen NEGATIVE 06/27/24 16:01 Crossmatch (AHG) See Detail 06/27/24 16:01 Clerical Work Check No Error Found 06/27/24 21:07 Hemolysis Bld Bag Check None in Pre and Post 06/27/24 21:07 Icterus Blood Bag Check None in Pre and Post 06/27/24 21:07 Pre-Trans Blood Type B POSITIVE 06/27/24 21:07 Post-Trans Blood Type B Positive 06/27/24 21:07 Post-Trans MICHAEL Poly NEGATIVE 06/27/24 21:07 Post-Trans Add Testing No 06/27/24 21:07 Post-Tx Rxn MICHAEL Result Not Reportable 06/27/24 21:07 Pathologist Comment BBK 06/27/24 21:07 - Imaging Radiologist's impression: ITS Impressions Chest X-Ray 06/26/24 15:20 IMPRESSION: Hypoexpanded lungs without acute process. Electronically signed by: Azam Hanley MD 06/26/2024 03:50 PM EST RP Abdomen/Pelvis CT 06/26/24 15:36 IMPRESSION: Moderate to significant constipation with diffuse diverticulosis. There is fat stranding and pericolic fluid along the descending and sigmoid colon suggestive of colitis. Diverticulitis is considered less likely. No free air visualized.. No evidence of abscess. Bilateral renal cysts with a complex large 6 cm cyst mid to lower pole right kidney. No radiopaque calculi or hydronephrosis seen. 1.1 cm pancreatic cyst, new since last PET/CT skull exam 02/09/2016. Consider 6 month follow-up Fleischner guidelines were followed. Electronically signed by: Azam Hanley MD 06/26/2024 05:03 PM EST RP Assessment and Plan Patient Active problem list reviewed?: Yes (1) Anemia Status: Chronic Assessment and plan: 1. This is a 78-year-old woman with macrocytic anemia diagnosed in 2017. She is currently admitted for near-syncope, probable vasovagal episode. She is being treated empirically for colitis based on findings on imaging and her symptoms. She has longstanding transfusion-dependent macrocytic anemia. Most recent bone marrow biopsy performed 11/19/2023-erythroid dominant marrow with this erythropoietic maturation. No increase in blasts. Increased storage iron. Findings raise possibility of MDS. Concurrent flow cytometry was negative. NGS profile was sent to [facility], test could not be performed because of insufficient nucleic acid in specimen. NGS panel for myeloid neoplasm [facility] on blood sample showed no alterations in CALR, FLT3, IDH1, IDH2, JAK2, MPL, NPM1 and TP53 mutations. She was started on Luspatercept on 12/10/2023. She receives intermittent blood transfusions. She did have a febrile reaction to blood transfusion 2 years ago, transfusion associated hemolytic workup was negative. She gets Tylenol and Benadryl as premedications and tolerates blood transfusions without any problems. She thinks her diarrhea and abdominal symptoms have worsened with antibiotics. She was developed hypokalemia and renal insufficiency from ongoing fluid losses from diarrhea. Anemia has improved with blood transfusion. - Time Spent With Patient Time Spent with Patient (in minutes): 15
[2024-06-30] MEDS: Clopidogrel Bisulfate 75 MG TABLET PO (14:07)
[2024-06-30] MEDS: Dicyclomine HCl 10 MG CAPSULE PO (14:11)
[2024-06-30] MEDS: carvediloL 6.25 MG TABLET PO (20:10)
[2024-06-30] MEDS: hydrALAZINE HCl 25 MG TABLET PO (20:10)
--- NOTE | 2024-06-30 22:23 | CONS_ITS ---
DATE OF SERVICE: 06/30/2024 REFERRING PHYSICIAN: Dr. Lafleur REASON FOR CONSULTATION: Abdominal pain, anemia, and Hemoccult-positive stools. HISTORY OF PRESENT ILLNESS: The patient is a pleasant 78-year-old woman, who was admitted to the hospital after presenting to the emergency room on June 26 with near syncope at home while straining to have bowel movement. She was evaluated with laboratory studies and imaging and was found to be anemic with Hemoccult-positive stools. She has a history of chronic anemia and does require blood transfusions periodically. She has also been treated with aromatase inhibitor for breast cancer. In the emergency department, she was diagnosed with colitis after CT scan was obtained. Stool specimens have been negative for C diff and a GI panel was also negative. She did require transfusion of 1 unit of packed red blood cells for a hematocrit of 20.9, but has had no obvious GI bleeding. Because of her colitis, she was initially treated with antibiotics, although these have been discontinued. Her major complaint now is crampy lower abdominal pain. PAST MEDICAL HISTORY: 1. Coronary artery disease with history of stent placement and cardiomyopathy. 2. Congestive heart failure. 3. Longstanding anemia, possible myelodysplastic syndrome, treated with Luspatercept. 4. Hyperparathyroidism. 5. Irritable bowel syndrome. 6. Colonoscopy/negative for colitis including biopsies. 7. Diabetes mellitus type 2. 8. Nephrolithiasis. 9. Gastroesophageal reflux disease. CURRENT MEDICATIONS: Her current medication is extensive and is reviewed. ALLERGIES: MULTIPLE MEDICATION ALLERGIES ARE REVIEWED. FAMILY HISTORY: This is reviewed with the patient and is noncontributory. SOCIAL HISTORY: There is no current tobacco, alcohol, substance abuse. REVIEW OF SYSTEMS: SKIN: No pruritus. HEENT: Negative. CARDIOPULMONARY: She denies shortness of breath or chest pain. GASTROINTESTINAL: As above. GENITOURINARY: Negative. NEUROPSYCHIATRIC: Negative. PHYSICAL EXAMINATION: GENERAL: Shows a pleasant female, lying comfortably in bed, watching television. VITAL SIGNS: Stable. SKIN: Anicteric. HEENT: Shows no scleral icterus. NECK: Without lymphadenopathy or thyromegaly. LUNGS: Clear. HEART: Shows a regular rate and rhythm. S1, S2. No murmur. ABDOMEN: Soft without focal masses or tenderness. Bowel sounds are present. No organomegaly is noted. There is some mild discomfort to deep palpation over both lower quadrants. EXTREMITIES: Without edema. LABORATORY DATA AND IMAGING STUDIES: Reviewed. IMPRESSION: Severe abdominal pain. At this time, her stool testing has been negative for any etiology and her colitis may be related to having recently been on antibiotics for her urinary infection prior to admission. C diff testing has been negative and I think her antibiotics can be discontinued. I would recommend a trial of dicyclomine 10 mg 2 to 4 times daily for crampy abdominal pain and she should follow up as an outpatient for consideration of possible colonoscopy for evaluation of her Hemoccult-positive stools once her colitis has resolved. Thanks for asking me to see her. I will follow her in the hospital with you. MD MEY Nix/BARBARA / [id number] MTDD
[2024-07-01 03:22] VITALS: BP 136/63; PULSE 71; RESP 16; TEMP 36.7; O2SAT 97
[2024-07-01] MEDS: Famotidine 20 MG TABLET PO (06:37)
[2024-07-01 07:02] LABS: Anion Gap 11 (12-20); Blood Urea Nitrogen 28 mg/dL (9-16); Carbon Dioxide 23 mmol/L (22-29); Chloride 111 mmol/L (96-108); Creatinine Clr Calc Pharmacy 19.6; Estimated Glomerular Filt Rate 27; Glucose Random 93 mg/dL (60-115); Potassium 3.4 mmol/L (3.3-5.1); Sodium 142 mmol/L (135-145)
[2024-07-01 07:12] LABS: Hematocrit 26.6 % (37.0-47.0); Mean Corpuscular HGB Conc 33.8 g/dl (31.0-35.0); Mean Corpuscular Hemoglobin 34.2 pg (27.0-33.0); Mean Corpuscular Volume 101.1 fL (80.0-98.0); Mean Platelet Volume 10.2 fL (9.4-12.3); Platelet Count 158 X10*3/uL (160-400); Red Blood Count 2.63 X10*6/uL (4.20-5.50); Red Cell Distribution Width 17.5 % (11.0-16.0); White Blood Count 10.3 X10*3/uL (4.8-10.8)
[2024-07-01 07:13] VITALS: BP 152/74; PULSE 69; RESP 20; TEMP 37.1; O2SAT 98
[2024-07-01] MEDS: 0.9 % Sodium Chloride Flush 3 ML SYRINGE IVFLUSH ×2 (08:02)
[2024-07-01] MEDS: Cyanocobalamin (Vitamin B-12) 1,000 MCG TABLET 5000 MCG PO (08:02)
[2024-07-01] MEDS: Cholecalciferol (Vitamin D3) 25 MCG TABLET 50 MCG PO (08:02)
[2024-07-01] MEDS: carvediloL 6.25 MG TABLET PO (08:02)
[2024-07-01] MEDS: allopurinoL 300 MG TABLET PO (08:03)
[2024-07-01] MEDS: Folic Acid 1 MG TABLET PO (08:03)
[2024-07-01] MEDS: Ascorbic Acid 500 MG TABLET PO (08:03)
[2024-07-01] MEDS: Vitamin E (Dl,Tocopheryl Acet) 180 MG (400 UNIT) CAPSULE 360 MG PO (08:03)
[2024-07-01] MEDS: Clopidogrel Bisulfate 75 MG TABLET PO (08:03)
[2024-07-01] MEDS: Atorvastatin Calcium 80 MG TABLET PO (08:03)
[2024-07-01 11:04] VITALS: BP 153/74; PULSE 66; RESP 18; TEMP 37; O2SAT 92
--- NOTE | 2024-07-01 11:13 | PM.DS ---
DS: Providers Provider Date of Service: 07/01/24 Date of admission: 06/29/24 08:45 Date of discharge: 07/01/24 Primary care physician: Paul Dickinson MD Consults: 06/28/24 15:19 Consult to Hematology / Oncology Routine Consulting Provider: [facility]Hematology Reason for consultation: anemia Has provider been notified: No 06/29/24 08:13 Consult to Nephrology Routine Consulting Provider: [facility] Reason for consultation: TED on ckd,anemia Has provider been notified: No 06/29/24 12:51 Consult to Cardiology Routine Consulting Provider: [facility] Reason for consultation: syncope ,also cad with anemia -need for 2 antiplatelets Has provider been notified: No 06/30/24 07:29 Consult to Gastroenterology Routine Consulting Provider: John Solomon Reason for consultation: anemia macrocytic /fobt positive Has provider been notified: No DS: Diagnosis Discharge Diagnosis (1) Anemia: Status: Chronic DS: Summary Hospital Course Hospital Course: from initial hpi: 78-year-old female with a PMH significant for?microcytic anemia of unclear etiology, HFreEF 35-40%, CAD s/p stenting of RCA, breast cancer s/p lumpectomy 07/01/2023 on maintenance chemotherapy, hypothyroidism, HTN, and osteoporosis who presents to the ED for evaluation of presyncopal episode at home while on the toilet having a bowel movement. Pt with long hx of chronic diarrhea, has instead been constipated for the past few days with last bowel movement 2 days ago. Constipation significantly worsening today. Has had intermittent lower abdominal cramping and pain since last week. Pt lives with her son who found her on the?toilet this morning minimally responsive, confused, and diaphoretic after straining to have a bowel movement. Reports felt dizzy, lightheaded, and weak with no fall or head strike. Initially family thought presyncopal episode secondary to anemia, as pt has had similar symptoms in the past where she has required blood transfusions. Pt had a 2nd episode of syncope while on the commode in the ED. Nursing report found her unresponsive and slumped over on the commode. No fall or head strike. Vital signs at that time indicated hypotension of 77/43. A short time later pt began having significant episodes of diarrhea on her own without any medical or pharmacologic intervention. Had 1 episode of nausea and vomiting while in the ED today. No SOB or difficulty breathing. Denies chest pain/pressure, palpitations. Denies fever or chills. In the ED pt was hypotensive as low as 77/43 after syncopal episode, otherwise vitals stable and WNL. Labs were significant for leukocytosis of 11.9, otherwise grossly unremarkable and around baseline for pt. Stable macrocytic anemia of 8.1/24.0. No significant electrolyte abnormalities. Creatinine 1.83, around baseline. Renal function baseline. Troponins WNL and flat at 15.4 and 13.7. BNP chronically elevated around baseline. CXR showed no acute cardiopulmonary process. CT?of abdomen and pelvis with moderate to significant constipation with diffuse diverticulosis. 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 EKG demonstrated normal sinus rhythm of [address] elevations or depressions. Pt was treated with Mag sulfate and calcium gluconate. Pt will be admitted to the hospital under observation for treatment and further evaluation of syncopal episodes likely secondary to vasovagal syncope in the setting of acute colitis. hospital course: Patient was admitted for syncope. Likely this was related to vasovagal due to constipation as well as element of dehydration on Bumex. Telemetry was unremarkable. Orthostatics were negative. Patient had no further events. Initially treated for colitis, however was seen by Gastroenterology who felt this was unlikely colitis and recommended discontinuing antibiotics. Course was complicated by post constipation diarrhea which has since resolved. Stool studies were negative. For acute kidney injury on CKD 4 creatinine returned to baseline, was seen by Nephrology who recommended outpatient follow up, Bumex held for diarrhea and dehydration and can be restarted in a couple of days on discharge. 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 Noted to have pancreatic cyst 1.1 cm recommendations were for follow up imaging in 6 months. For coronary artery disease was seen by Cardiology recommended continuing Plavix and holding aspirin, continued on statin. For chronic systolic CHF will continue Bumex as mentioned, restart Coreg on discharge. For hypothyroid continue levothyroxine. For deconditioning was seen by physical therapy and patient ambulated well and will be discharged home. Time Attestation Discharge Coordination Time (in mins): 32 Quality: Safe Use of Opioids Does Pt have an Active Cancer Diagnosis on the Problem List?: No Quality: Stroke Does the patient have a stroke diagnosis?: No Physical Exam Vital Signs: Vital Signs: Last Vital Signs Temp 98.6 F 07/01/24 11:04 Pulse 66 07/01/24 11:04 Resp 18 07/01/24 11:04 BP 153/74 H 07/01/24 11:04 Pulse Ox 92 07/01/24 11:04 O2 Del Method Room Air 07/01/24 11:04 O2 Flow Rate 2 07/01/24 07:13 BMI result Body Mass Index 22.7 Appearance: Alert.? Oriented .? cvs: rrr, [id number]. res: clear to auscultation. abd: soft ,nt, bs present. ext pulses present , no cyanosis . neuro: nonfocal. DS: Data Data Completed and Pending Completed studies during hospitalization [Text1]: Procedures Transfusion of Nonautologous Red Blood Cells into Peripheral Vein, Percutaneous Approach (12/13/23) Labs on day of discharge: Laboratory Results - last 24 hr 06/30/24 07/01/24 05:47 05:56 WBC 10.3 RBC 2.63 L Hgb 9.0 L Hct 26.6 L MCV 101.1 H MCH 34.2 H MCHC 33.8 RDW 17.5 H Plt Count 158 L MPV 10.2 Absolute Nucleated RBC 0.000 Nucleated RBC % (auto) 0.0 Sodium 142 Potassium 3.4 Chloride 111 H Carbon Dioxide 23 Anion Gap 11 L BUN 28 H Creatinine 1.81 H Estim Creat Clear Calc 19.6 Estimated GFR 27 Random Glucose 93 Estimat Average Glucose 108 Hemoglobin A1c % 5.4 Calcium 8.0 L D Discharge Plan Discharge Anticipated Discharge Date/Time: 07/01/24 11:09 Patient Disposition: Home, Self-Care Discharge Diagnosis: anemia, syncope (presumed vasovagal) Referrals: Paul Dickinson MD [Primary Care Provider] - 1 Week Discharge Medications: New dicyclomine 10 mg Capsule 10 mg PO TIDAC PRN (Reason: Diarrhea) Qty: 30 0RF Continued allopurinol 300 mg tablet 300 mg PO DAILY Qty: 90 1RF clopidogrel 75 mg tablet 75 mg PO DAILY 90 Days Qty: 90 1RF carvedilol 6.25 mg tablet 6.25 mg PO BID 90 Days Qty: 180 1RF rosuvastatin 20 mg tablet 20 mg PO DAILY 90 Days Qty: 90 1RF levothyroxine 100 mcg tablet 100 mcg PO MOTUTHFRSA@0600 90 Days Qty: 65 1RF Rx Instructions: skips sundays and wednesdays folic acid 1 mg Tablet 1 mg PO DAILY cholecalciferol (vitamin D3) [Vitamin D3] 50 mcg (2,000 unit) Tablet 50 mcg PO DAILY cyanocobalamin (vitamin B-12) 5,000 mcg Tablet,Disintegrating 5,000 mcg PO DAILY ascorbic acid (vitamin C) [Vitamin C] 500 mg Tablet 500 mg PO DAILY calcium carbonate [Calcium 600] 600 mg calcium (1,500 mg) Tablet 600 mg PO DAILY famotidine [Pepcid] 20 mg Tablet 20 mg PO DAILY@0630 exemestane 25 mg Tablet 25 mg PO DAILY Rx Instructions: must administer after a meal biotin 1 mg Tablet 1 mg PO DAILY vitamin E (dl, acetate) 450 mg (1,000 unit) Capsule 450 mg PO DAILY AZO D-Mannose 500 mg Capsule 1,000 mg PO DAILY hydralazine 25 mg tablet 25 mg PO BEDTIME Protocol: Hold for SBP< HOLD for SBP < : 90 cranberry 500 mg capsule 500 mg PO DAILY Rx Instructions: administer with meals Held bumetanide 1 mg tablet 2 mg PO DAILY 90 Days Qty: 180 3RF Hold Instructions: Resume on 07/03/24. Protocol: Hold for SBP< HOLD for SBP < : 90 Discontinued aspirin 81 mg Tablet,Delayed Release (Dr/Ec) 81 mg PO DAILY gabapentin 100 mg capsule 100 mg PO BEDTIME Discharge Orders: Discharge Order (Routine); Ordered 07/01/24 Ordered By: Pranav Tolbert Diet: Advance to usual diet Activity on Discharge: As tolerated Stand Alone Forms: Patient Portal Discharge page Print Language: Hungarian Care Plan Goals: Recovery Health Concerns: Anemia, syncope Plan of Treatment: Stop aspirin, continue Plavix, follow up with Hematology, can restart Bumex in a couple of days Assessment: See above
--- NOTE | 2024-07-01 11:18 | MHC.CM.PN ---
Patient has been medically cleared for dc to home today, self care. Last IMM addressed on 06/29/2024.
== END 2024-07-01 13:06 | disposition home or self-care (01) | DRG 812 ==
LOC: HO.ED 17:33 → HO.EDOVER 18:54 → HO.IMC 06-27 19:35
PROVIDERS: Internal Medicine; Admitting Provider Student in an Organized Health Care Education/Training Program; Emergency Provider Emergency Medicine; PCP Internal Medicine; Visit Provider Internal Medicine
DX: D46.9 Myelodysplastic syndrome, unspecified (principal); K86.2 Cyst of pancreas; I50.22 Chronic systolic (congestive) heart failure; N17.9 Acute kidney failure, unspecified; N18.4 Chronic kidney disease, stage 4 (severe); I25.10 Atherosclerotic heart disease of native coronary artery without angina pectoris; K52.9 Noninfective gastroenteritis and colitis, unspecified; E89.2 Postprocedural hypoparathyroidism; D63.1 Anemia in chronic kidney disease; E86.0 Dehydration; C50.911 Malignant neoplasm of unspecified site of right female breast; D50.9 Iron deficiency anemia, unspecified; R55 Syncope and collapse; E87.6 Hypokalemia; Z95.5 Presence of coronary angioplasty implant and graft; Z20.822 Contact with and (suspected) exposure to COVID-19; Z79.02 Long term (current) use of antithrombotics/antiplatelets; Z79.811 Long term (current) use of aromatase inhibitors; Z79.890 Hormone replacement therapy; Z79.899 Other long term (current) drug therapy
CPT/HCPCS: 0241U; 36415; 71046; 74177; 80048; 80076; 82272; 82607; 82728; 82746; 82803; 83036; 83540; 83690; 83735; 83880; 84484; 85014; 85018; 85025; 85027; 86078; 86850; 86900; 86901; 86920; 86922; 87493; 87507; 93005; 97161; 99222; 99285; J0131; J0613; J0696; J1644; J1836; J1940; J3475; J3480; P9016; Q9967

== ENCOUNTER → 2024-06-26 13:11 | Outpatient (BNV) | payer MEDICARE, SELFPAY | PROVIDERS: Emergency Provider Emergency Medicine; PCP Internal Medicine; Visit Provider Internal Medicine Cardiovascular Disease | DX: R94.31 Abnormal electrocardiogram [ECG] [EKG] (principal); Z13.6 Encounter for screening for cardiovascular disorders; I44.0 Atrioventricular block, first degree; R00.1 Bradycardia, unspecified | CPT/HCPCS: 93010 ==

== ENCOUNTER → 2024-06-26 13:17 | Outpatient (BNV) | payer MEDICARE, SELFPAY | PROVIDERS: Emergency Provider Emergency Medicine; PCP Internal Medicine; Visit Provider Radiology Diagnostic Radiology | DX: K57.90 Diverticulosis of intestine, part unspecified, without perforation or abscess without bleeding (principal); N28.1 Cyst of kidney, acquired; J98.4 Other disorders of lung; K86.2 Cyst of pancreas; K59.09 Other constipation | CPT/HCPCS: 71046; 74177 ==

== ENCOUNTER → 2024-06-26 18:40 | Outpatient (BNV) | payer MEDICARE, SELFPAY | PROVIDERS: Admitting Provider Student in an Organized Health Care Education/Training Program; Emergency Provider Emergency Medicine; PCP Internal Medicine; Visit Provider Student in an Organized Health Care Education/Training Program | DX: R55 Syncope and collapse (principal) | CPT/HCPCS: 99222; 99231; 99232; 99239; 99499 ==

== ENCOUNTER 2024-06-29 08:45 | Outpatient (BNV) | payer MEDICARE, SELFPAY | END 2024-06-30 09:40 | PROVIDERS: Admitting Provider Student in an Organized Health Care Education/Training Program; Emergency Provider Emergency Medicine; PCP Internal Medicine; Visit Provider Internal Medicine | DX: I44.0 Atrioventricular block, first degree (principal); I49.3 Ventricular premature depolarization | CPT/HCPCS: 93010 ==

== ENCOUNTER → 2024-06-29 08:45 | Outpatient (BNV) | payer MEDICARE, SELFPAY | PROVIDERS: Admitting Provider Student in an Organized Health Care Education/Training Program; Emergency Provider Emergency Medicine; PCP Internal Medicine; Visit Provider Internal Medicine | DX: D64.9 Anemia, unspecified (principal) | CPT/HCPCS: 99222; 99231 ==

== ENCOUNTER → 2024-06-29 08:45 | Outpatient (BNV) | payer MEDICARE, SELFPAY | PROVIDERS: Admitting Provider Student in an Organized Health Care Education/Training Program; Emergency Provider Emergency Medicine; PCP Internal Medicine; Visit Provider Internal Medicine | DX: D64.9 Anemia, unspecified (principal); R55 Syncope and collapse; R94.31 Abnormal electrocardiogram [ECG] [EKG] | CPT/HCPCS: 99223 ==

== ENCOUNTER 2024-07-07 11:11 | Outpatient (AMB) | payer MEDICARE, SELFPAY ==
--- NOTE | 2024-07-07 11:28 | MHC.PC.OV ---
Vital Signs 07/07/24 11:42 Weight 134 lb BP 148/82 H Respiration 14 Pulse 88 Pulse Source Pulse Oximeter Temp 97.6 F Temp Source Temporal Artery Scan Pulse Oximetry (%) 96 Oxygen Delivery Method Room Air Intake Visit Reasons: f/u anemia Customer Account Coordinator Required: No Accompanied by: Self / Same As Patient Allergies esomeprazole [From NEXIUM] Allergy (Intermediate, Verified 07/14/24 06:26) CHEST PAIN omeprazole [From PRILOSEC] Allergy (Intermediate, Verified 07/14/24 06:26) CHEST PAIN diphenhydramine [From Benadryl] Allergy (Verified 07/14/24 06:26) Dizziness Medication List - Last Reconciled 07/14/24 by Paul Dickinson MD allopurinol 300 mg PO DAILY amoxicillin-pot clavulanate 875-125 mg 1 tab PO BID 10 days ascorbic acid (vitamin C) (Vitamin C) 500 mg PO DAILY biotin 1 mg PO DAILY bumetanide 2 mg See Protocol PO DAILY 90 days calcium carbonate (Calcium 600) 600 mg PO DAILY carvedilol 6.25 mg PO BID 90 days cholecalciferol (vitamin D3) (Vitamin D3) 50 mcg PO DAILY clopidogrel 75 mg PO DAILY 90 days cranberry 500 mg PO DAILY cyanocobalamin (vitamin B-12) 5,000 mcg PO DAILY d-mannose (AZO D-Mannose) 1,000 mg PO DAILY dicyclomine 10 mg PO TIDAC PRN diphenoxylate-atropine 2.5-0.025 mg (Lomotil) 1 tab PO BID PRN exemestane 25 mg PO DAILY folic acid 1 mg PO DAILY hydralazine 25 mg See Protocol PO BEDTIME levothyroxine 100 mcg PO MOTUTHFRSA@0600 90 days vitamin E (dl, acetate) 450 mg PO DAILY Tobacco use date assessed: 07/07/24 Fall risk assessment: No Falls in past year Last assessed Fall Risk: 07/07/24 Dental Screening Dental Screen Date: 07/07/24 Did you have a dental visit in the last 12 months?: Yes Did you have a dental problem in the last 6 months where you did not have access to dental care?: No HPI f/u anemia HPI Details 78 yr old female presents for a follow up visit. Tolerating the BP meds well. BP has been reasonably well controlled. Reporting no side effects and able to do all ADL's [facility] Medical History CAD (coronary artery disease) CHF (congestive heart failure) Cervix prolapsed into vagina History of blood transfusion (~02/01/23) Diabetes mellitus HFrEF (heart failure with reduced ejection fraction) Cardiomyopathy Normal colonoscopy Type 2 diabetes mellitus Diverticulosis Irritable bowel syndrome Pulmonary emboli GERD (gastroesophageal reflux disease) Nephrolithiasis Hypoparathyroidism Papillary thyroid carcinoma HTN (hypertension) Polymyalgia rheumatica Hyperglycemia Chronic anemia Anemia Surgical History Stented coronary artery Breast mass, right H/O endoscopy History of cholecystectomy H/O total thyroidectomy Family History Sister CHF (congestive heart failure) Daughter Breast cancer Son Kidney stones Social History Household Members: Family Household Members Other:: son Housing: House Do you presently have visiting nurse or other home services: No Alcohol intake: never Comment: Pt refuses fall risk protocol/ precautions- ambulates with steady gait Patient Tobacco Use Status: Never used Tobacco Years Smoked: 30 +/- e-Cigarette/Vaping Use: Never Used Second Hand Smoke Exposure: No Advance Directives Date on File: 06/27/24 service: No Current occupational status: retired Current occupation: Right Handed Cognitive needs: Yes (cane) Hearing needs: No Vision needs: Yes (reading glasses) Questionnaire PHQ-9 Over the last 2 weeks, how often have you been bothered by any of the following problems? 1. Little interest or pleasure in doing things: not at all 2. Feeling down, depressed, or hopeless: not at all 3. Trouble falling or staying asleep, or sleeping too much: not at all 4. Feeling tired or having little energy: not at all 5. Poor appetite or overeating: not at all 6. Feeling bad about yourself - or that you are a failure or have let yourself or your family down: not at all 7. Trouble concentrating on things, such as reading the newspaper or watching television: not at all 8. Moving or speaking so slowly that other people could have noticed. Or the opposite - being so fidgety or restless that you have been moving around a lot more than usual: not at all 9. Thoughts that you would be better off or of hurting yourself in some way: not at all Total score: 0 Source: Developed by Drs. John Torres, Park Emanuel, Tu Mccain and colleagues, with an educational ridge from [employer]. Thrive Questionnaire Date Thrive assessed: 07/07/24 I am a: Patient What is your living situation today?: I have a steady place to live Within the past 12 months, did the food you bought not last and you didn't have the money to get more?: Never true Within the past 12 months, did you worry whether your food would run out before you got money to buy more?: Never true Do you have trouble paying for medicines?: No Do you have trouble getting transportation to medical appointments?: No Do you have trouble paying your heating and electricity bill?: No Do you have trouble taking care of your child, family member or friend?: No Do you have trouble with day-to-day activities such as bathing, preparing meals, shopping, managing finances, etc.?: No Are you currently unemployed and looking for a job?: No Are you interested in more education?: No Please select the resources that you would like help with: None THRIVE Score: 0 AUDIT C Alcohol Use Questionnaire (AUDIT-C) 1. How often do you have a drink containing alcohol?: Never 3. How often do you have six or more drinks on one occasion?: Never Total Score: 0 RASHAUN-7 AMB Questionnaire RASHAUN-7 Date RASHAUN - 7 assessed: 07/07/24 Feeling nervous, anxious, or on edge: 0 = Not at all Not being able to stop or control worryin = Not at all Worrying too much about different things: 0 = Not at all Trouble relaxin = Not at all Being so restless that it is hard to sit still: 0 = Not at all Becoming easily annoyed or irritable: 0 = Not at all Feeling afraid as if something awful might happen: 0 = Not at all Total RASHAUN-7 score (0-4 normal; 5-9 mild; 10-14 moderate; 15-21 severe): 0 Source: Developed by Drs. John Torres, Park Emanuel, Tu Mccain and colleagues, with an educational ridge from [employer]. Physical exam (Primary Care) Vital Signs: Last Vital Signs Temp 97.6 F 07/07/24 11:42 Pulse 88 07/07/24 11:42 Resp 14 07/07/24 11:42 BP 148/82 H 07/07/24 11:42 Pulse Ox 96 07/07/24 11:42 Oxygen Delivery Method Room Air 07/07/24 11:42 Tobacco/Smoking Status: Tobacco use Status Tobacco use date assessed 07/07/24 07/07/24 11:30 Patient Tobacco Use Status Never used Tobacco 07/07/24 11:30 Tobacco use type 08/15/23 17:11 e-Cigarette/Vaping Use Never Used 07/07/24 11:30 PHQ-9: PHQ-9 Score PHQ-9: Total score 0 07/07/24 13:06 Thrive Assessment: Date of Thrive Assessment Date Thrive assessed 07/07/24 07/07/24 11:30 Const General: cooperative and healthy appearing Nutritional Appearance: well nourished Orientation/consciousness: patient oriented x3 Limitations: no limitations HENMT Head: Yes normal to inspection Eyes General: appearance normal, both eyes and all related structures Neck Neck: Yes normal visual inspection Chest Chest palpation & inspection: normal palpation of entire chest wall Resp Effort & Inspection: normal respiratory effort Neuro General: patient oriented x3 Coding Level of Care Code Est Pt Level 3 (97175) Complex EM visit Add On G2211 Diagnoses HTN (hypertension) I10 Assessment & Plan Assessment & Plan (1) HTN (hypertension): Code(s): I10 - Essential (primary) hypertension Category: Medical Plan: Continue hydralazine for BP control. Medications: New diphenoxylate-atropine 2.5-0.025 mg (Lomotil) 1 tab PO BID PRN 10 tabs 0RF diarrhea
[2024-07-07 11:42] VITALS: BP 148/82; PULSE 88; RESP 14; TEMP 36.4; O2SAT 96
== END 2024-07-07 12:04 | disposition home or self-care (01) ==
LOC: HO.HMCSH 11:11
PROVIDERS: PCP Internal Medicine; Visit Provider Internal Medicine
DX: I10 Essential (primary) hypertension (principal)

== ENCOUNTER → 2024-07-07 11:11 | Outpatient (BNVA) | payer MEDICARE, SELFPAY | PROVIDERS: PCP Internal Medicine; Visit Provider Internal Medicine | DX: I10 Essential (primary) hypertension (principal) | CPT/HCPCS: 99212 ==

== ENCOUNTER 2024-08-04 14:59 | Outpatient (REF) | payer MEDICARE, SELFPAY ==
--- NOTE | ~2024-08-04 | XR_ITS ---
EXAMINATION: XR HIP 1 VIEW LEFT WITH PELVIS HISTORY: S70.00XA - Contusion of unspecified hip, initial encounter COMPARISON: Correlation is made with a plain films of the pelvis dated 09/20/2022. FINDINGS: A single AP view of the pelvis and two views of the left hip are submitted. Osseous mineralization is normal. There is a band of sclerosis about the subcapital region of the femoral neck which is new from the prior study. There is also a subtle step-off laterally. Findings are suspicious for a nondisplaced subcapital fracture. The joint space is maintained. There is severe degenerative change of the lower lumbar spine. The soft tissues are unremarkable. XR/XR hip LT w PEL1V IMPRESSION: Findings suspicious for a nondisplaced subcapital fracture of the left femur as described. Confirmation with CT is recommended. Orthopedic consult is also recommended. Findings were conveyed to Dr. Paul Dickinson on 08/05/2024 at 11:57 AM by secure text message, and acknowledged at 11:57 AM. Electronically signed by: John Pollock MD 08/05/2024 11:59 AM EDT
--- OUTSIDE RECORDS SUMMARY | 2024-08-04 18:16 | XMS_ITS | Clinical Summary ---
Author Organization [facility] Address [address] [place] [address] Phone Care Team Providers Care Higher Level Teaching Assistant Name Role Phone FabriceJohn solares Primary Care [...] 1 (one) time each day 8 Active bumetanide (BUMEX) 1 MG tablet 4 Active carvedilol (COREG) 3.125 MG tablet Take 6.25 mg by mouth 8 Active carvedilol (COREG) 6.25 MG tablet 2 (two) times a day Active clopidogrel (PLAVIX) 75 MG tablet Take 75 mg by mouth 4 025 Active folic acid (FOLVITE) 1 MG tablet Take 1 mg by mouth 8 Active gabapentin (NEURONTIN) 300 MG capsule 1 capsule 1 (one) time each day 8 Active hydrALAZINE 25 MG tablet 4 Active levothyroxine (SYNTHROID, LEVOTHROID) 75 MCG tablet Take 75 mcg by mouth every morning Active rosuvastatin (CRESTOR) 20 MG tablet Rosuvastatin Calcium Active aspirin 81 MG chewable tablet Chew 81 mg in the morning. 025 Discontin ued(Alter joey therapy) ciprofloxacin (CIPRO) 500 MG tablet Take 500 mg by mouth in the morning and 500 mg in the evening. TWICE A DAY FOR 7 DAYS. 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 Hypertension 06/04/2016 Encounters Date Type Department Care Team Description 07/16/2024 2:15 PM EDT Office Visit [facility] [address] [place] [address] Mejia Soler MD Chronic kidney disease, stage 4 (severe) (HCC) (Primary Dx) 05/14/2024 Orders Only [facility] [address] [place] [address] Mejia Soler MD Chronic kidney disease, stage 4 (severe) (HCC); Type 2 diabetes mellitus with diabetic chronic kidney disease (HCC); Myeloma kidney (HCC) from Last 3 Months Social History Tobacco Use Types Packs/Day Years Used Date Smoking Tobacco: Never Assessed Comments Unknown Sex and Gender Information Value Date Recorded Sex Assigned at Not on file Legal Sex Female 4:53 PM EST Gender Identity Not on file Sexual Orientation Not on file Last Filed Vital Signs Vital Sign Reading Time Taken Comments Blood Pressure 110/70 07/16/2024 2:26 PM EDT Pulse 62 07/16/2024 2:26 PM EDT Temperature - - Respiratory Rate - - Oxygen Saturation 94% 07/16/2024 2:26 PM EDT Inhaled Oxygen Concentration - - Weight 58.6 kg (129 lb 3.2 oz) 07/16/2024 2:26 P M EDT Height - - Body Mass Index - - Plan of Treatment Upcoming Encounters Date Type Department Care Team (Late st Contact Info) Description 10/12/2024 3:00 PM EDT Office Visit [facility] [address] [place] [address] Mejia Soler MD [address] [facility] [address] [place] [address] Health Maintenance Due Date Last Done Comments Pneumococcal Vaccine: 50+ Ye ars (1 of 2 - PCV) 1964 Diabetes: Hemoglobin A1C 04/23/2024 Diabetes: Ophthalmology Exam 04/23/2024 Diabetes: Pedal Pulse Checked 04/23/2024 Diabetes: Sensory Foot Exam 04/23/2024 Diabetes: Visual Foot Exam 04/23/2024 Influenza Vaccine (Season Ended) 2024 Hepatitis B Vaccine Aged Out No longe r eligible based on patient's age to complete this topic Procedures Procedure Name Priority Date/Time Associated Diagnosis Comments COMPREHENSIVE METABOLIC PANEL (CMP) (EXTERNAL LAB ENTRY) Routine 07/15/2024 ALT EXT LABS Routine 07/01/2024 ALT EXT LABS Routine 06/30/2024 ALT EXT LABS Routine 06/30/2024 from Last 3 Months Results * Comprehensive Metabolic Panel (CMP) (07/15/2024) Glucose 120 mg/dL BUN 26 mg/dL Creatinine 23.8 mg/dL Sodium 144 mEq/L Potassium 3.8 mEq/L Chloride 106 Carbon Dioxide 29 mmol/L Calcium 9.4 mg/dL Albumin (Blood) 3.6 g/dL AST (SGOT) 17 U/L ALT (SGPT) 9 U/L Alkaline Phosphatase 72 U/L Total Bilirubin 0.40 MG/DL eGFR 30 Total Protein, Serum 6.8 Anion Gap 13 Blood 07/15/2024 Historical Provider LAB BLOOD ORDERABLES Sarah l Result * (ABNORMAL) ALT EXT LABS (07/01/2024) Only the most recent of3 resultswithin the time period is included. WBC 10.3(A) 3.3 - 10.0 10*3/ML Red Blood Cell Count 2.63 Hemoglobin 9.0(A) 12.0 - 16.0 Hematocrit 26.6(A) 36.0 - 46.0 Platelets 158 150 - 399 10*3/UL 07/01/2024 Historical Provider LAB BLOOD ORDERABLES Sarah l Result from Last 3 Months Insurance Medicare [facility] Medicare [facility] Care Teams Higher Level Teaching Assistant Relationship Specialty Start Date End Date John Avina DO [address] [place] [address] PCP - General Internal Medicine 10/23/23
--- OUTSIDE RECORDS SUMMARY | 2024-08-04 18:16 | XMS_ITS | Clinical Summary ---
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-4/UNSP CHR KDNY Active 04-22 00:00: 00 CHRONIC SYSTOLIC (CONGESTIVE) HEART FAILURE Active 04-22 00:00: 00 TYPE 2 DIABETES MELLITUS W DIABETIC CHRONIC KIDNEY DISEASE Active 04-22 00:00: 00 CHRONIC KIDNEY DISEASE, STAGE 4 (SEVERE) Active 04-22 00:00: 00 ANEMIA IN CHRONIC KIDNEY DISEASE Active 04-22 00:00: 00 MALIGNANT NEOPLASM OF UNSP SITE OF RIGHT FEMALE BREAST Active 04-22 00:00: 00 ATHSCL HEART DISEASE OF [place] CORONARY ARTERY W/O ANG PCTRS Active 04-22 00:00: 00 AGE-RELATED 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 Active 04-22 00:00: 00 HYPOTHYROIDI SM, UNSPECIFIED Active 04-22 00:00: 00 CYST OF KIDNEY, ACQUIRED Active 04-22 00:00: 00 CYST OF PANCREAS Active 04-22 00:00: 00 HYPERLIPIDEM IA, UNSPECIFIED Active 04-22 00:00: 00 DVTRCLI OF INTEST, PART UNSP, W/O PERF OR ABSCESS W/O BLEED Active 04-22 00:00: 00 Irritable bowel syndrome, unspecified Active 04-22 00:00: 00 PERSONAL HISTORY OF PULMONARY EMBOLISM Active 04-22 00:00: 00 PRESENCE OF CORONARY ANGIOPLASTY IMPLANT AND GRAFT Active 04-22 00:00: 00 ACQUIRED ABSENCE OF OTHER SPECIFIED PARTS OF DIGESTIVE TRACT Active 04-22 00:00: 00 INSULATION HELPER (CURRENT) USE OF ANTITHROMBOT ICS/ANTIPLAT ELETS Active 04-22 00:00: 00 Allergies, Adverse Reactions, Alerts Allergy Name Allergy Type Status Severity Reaction(s) Onset Date Inactive Date Treating Clinician Comments NEXIUM Propensity to adverse reactions Active 2024-06 19:20:3 6 PRILOSEC Propensity to adverse reactions Active 2024-06 19:20:4 7 BENADRYL Propensity to adverse reactions Active 2024-06 19:21:1 1 Medications Ordered Medication Name Filled Medication Name Start Date Stop Date Current Medication? Ordering Clinician Indication Dosage Frequency Signature (SIG) Comments Components bumetanide 1 mg tablet 06-25 00:00: 00 07-02 00:00 :00 No [id number] Per instruc tions Per instructio ns (route: oral) Med Classific ation: Cardiovas cular Therapy Agents hydralazine 25 mg tablet 2- 00:00: 00 07-02 00:00 :00 No [id number] Per instruc tions Per instructio ns (route: oral) Med Classific ation: Cardiovas cular Therapy Agents allopurinol 300 mg tablet 07-02 00:00: 00 Yes [id number] 1 tablet DAILY 1 tablet DAILY (route: oral) Med Classific ation: Gout and Hyperuric emia Therapy AZO D-Mannose 500 mg capsule 07-02 00:00: 00 Yes [id number] 1 capsule DAILY 1 capsule DAILY (route: oral) Med Classific ation: Alternati ve Therapy bumetanide 1 mg tablet 07-02 00:00: 00 Yes [id number] 1 tablet DAILY 1 tablet DAILY (route: oral) Med Classific ation: Cardiovas cular Therapy Agents Calcium 600 + D(3) 600 mg-10 mcg (400 unit) tablet 07-02 00:00: 00 Yes [id number] 1 tablet DAILY 1 tablet DAILY (route: oral) Med Classific ation: Electroly te Balance-N utritiona l Products Coreg 6.25 mg tablet 07-02 00:00: 00 Yes [id number] 1 tablet 2 TIMES DAILY 1 tablet 2 TIMES DAILY (route: oral) Med Classific ation: Cardiovas cular Therapy Agents cranberry 450 mg tablet 07-02 00:00: 00 Yes [id number] 2 tablet DAILY 2 tablet DAILY (route: oral) Med Classific ation: Alternati ve Therapy dicyclomine 10 mg capsule 07-02 00:00: 00 07-13 23:59 :00 No [id number] 1 mg DAILY 1 mg DAILY (route: oral) Med Classific ation: Gastroint estinal Therapy Agents exemestane 25 mg tablet 07-02 00:00: 00 Yes [id number] 1 tablet DAILY 1 tablet DAILY (route: oral) Med Classific ation: Antineopl astics folic acid 1 mg tablet 07-02 00:00: 00 Yes [id number] 1 tablet DAILY 1 tablet DAILY (route: oral) Med Classific ation: Electroly te Balance-N utritiona l Products hydralazine 25 mg tablet 07-02 00:00: 00 Yes [id number] 1 tablet 2 TIMES DAILY 1 tablet 2 TIMES DAILY (route: oral) Med Classific ation: Cardiovas cular Therapy Agents magnesium 250 mg (as magnesium oxide) tablet 07-02 00:00: 00 Yes [id number] 1 tablet DAILY 1 tablet DAILY (route: oral) Med Classific ation: Electroly te Balance-N utritiona l Products mecobalamin (vitamin B12) 1,000 mcg chewable tablet 07-02 00:00: 00 Yes [id number] 1 tablet DAILY 1 tablet DAILY (route: oral) Med Classific ation: Electroly te Balance-N utritiona l Products Plavix 75 mg tablet 07-02 00:00: 00 Yes [id number] 1 tablet DAILY 1 tablet DAILY (route: oral) Med Classific ation: Hematolog ical Agents potassium gluconate 600 mg (99 mg) tablet 07-02 00:00: 00 Yes [id number] 1 tablet DAILY 1 tablet DAILY (route: oral) Med Classific ation: Electroly te Balance-N utritiona l Products Synthroid 100 mcg tablet 07-02 00:00: 00 Yes [id number] 1 tablet DAILY 1 tablet DAILY (route: oral) Med Classific ation: Endocrine Vitamin C 1,000 mg tablet 07-02 00:00: 00 Yes [id number] 1 tablet DAILY 1 tablet DAILY (route: oral) Med Classific ation: Electroly te Balance-N utritiona l Products vitamin E (dl, acetate) 180 mg (400 unit) capsule 07-02 00:00: 00 Yes [id number] 1 capsule DAILY 1 capsule DAILY (route: oral) Med Classific ation: Electroly te Balance-N utritiona l Products Immunizations Ordered Immunization Name Filled Immunization Name Date Status Comments Refusal Reason INFLUENZA, TIV (INACTIVATED) 2024-01-22 00:00:00 Vital Signs Vital Name Observation Time Observation Value Commen ts Temperature 2024-07-28 10:06:00.000 97 [degF] Temperature 2024-07-20 10:42:00.000 97.7 [degF] Temperature 2024-07-13 12:33:00.000 98.2 [degF] Temperature 2024-07-06 11:01:00.000 98 [degF] Temperature 2024-07-02 10:38:00.000 97.5 [degF] BMI (%) 2024-07-02 10:38:00.000 24 kg/m2 Height 2024-07-02 10:38:00.000 61 [in_us] Pulse 2024-07-28 10:06:00.000 78 /min Pulse 2024-07-20 10:42:00.000 70 /min Pulse 2024-07-13 12:33:00.000 68 /min Pulse 2024-07-06 11:01:00.000 72 /min Pulse 2024-07-02 10:38:00.000 67 /min O2 Saturation (%) 2024-07-28 10:06:00.000 97 % O2 Saturation (%) 2024-07-20 10:42:00.000 98 % O2 Saturation (%) 2024-07-13 12:33:00.000 96 % O2 Saturation (%) 2024-07-06 11:01:00.000 99 % O2 Saturation (%) 2024-07-02 10:38:00.000 98 % Respirations 2024-07-28 10:06:00.000 18 /min Respirations 2024-07-20 10:42:00.000 18 /min Respirations 2024-07-13 12:33:00.000 18 /min Respirations 2024-07-06 11:01:00.000 18 /min Respirations 2024-07-02 10:38:00.000 18 /min Weight (lbs) 2024-07-28 10:06:00.000 127 [lb_av] Weight (lbs) 2024-07-20 10:52:00.000 127 [lb_av] Weight (lbs) 2024-07-02 10:38:00.000 130 [lb_av] Systolic Blood Pressure 2024-07-28 10:06:00.000 134 mm [Hg] Systolic Blood Pressure 2024-07-20 10:42:00.000 128 mm [Hg] Systolic Blood Pressure 2024-07-13 12:33:00.000 110 mm [Hg] Systolic Blood Pressure 2024-07-06 11:01:00.000 132 mm [Hg] Systolic Blood Pressure 2024-07-02 10:38:00.000 148 mm [Hg] Diastolic Blood Pressure 2024-07-28 10:06:00.000 70 mm [Hg] Diastolic Blood Pressure 2024-07-20 10:42:00.000 82 mm [Hg] Diastolic Blood Pressure 2024-07-13 12:33:00.000 78 mm [Hg] Diastolic Blood Pressure 2024-07-06 11:01:00.000 82 mm [Hg] Diastolic Blood Pressure 2024-07-02 10:38:00.000 80 mm [Hg] Plan of Treatment Planned Activity Planned Date Details Comments Future Scheduled Test SKILLED NU RSE TO EVALUATE PATIENT, IDENTIFY PRIMARY AND CO-MORBID CONDITIONS CODED PER CODING GUIDELINES, AND DEVELOP PATIENT SPECIFIC PLAN OF CARE THAT INCLUDES PATIENT GOAL FOR HOME HEALTH. [code = SKILLED NURSE TO EVALUATE PATIENT, IDENTIFY PRIMARY AND CO-MORBID CONDITIONS CODED PER CODING GUIDELINES, AND DEVELOP PATIENT SPECIFIC PLAN OF CARE THAT INCLUDES PATIENT GOAL FOR HOME HEALTH.] Future Scheduled Test SKILLED NU RSE TO PROVIDE TEACHING/REINFORCEMENT RELATED TO URINARY INCONTINENCE. [code = SKILLED NURSE TO PROVIDE TEACHING/REINFORCEMENT RELATED TO URINARY INCONTINENCE.] Future Scheduled Test OXYGEN VIA N/C @ 2 LITERS PRN. SKILLED NURSE FOR O/A AND SKILLED TEACHING OF SAFE OXYGEN USE IN THE HOME. [code = OXYGEN VIA N/C @ 2 LITERS PRN. SKILLED NURSE FOR O/A AND SKILLED TEACHING OF SAFE OXYGEN USE IN THE HOME.] Future Scheduled Test SKILLED NU RSE FOR O/A AND TEACHING RELATED TO BREAST CANCER INCLUDING SIGNS AND SYMPTOMS OF DISEASE PROGRESSION, TREATMENT, AND MANAGEMENT OF POTENTIAL SIDE EFFECTS. [code = SKILLED NURSE FOR O/A AND TEACHING RELATED TO BREAST CANCER INCLUDING SIGNS AND SYMPTOMS OF DISEASE PROGRESSION, TREATMENT, AND MANAGEMENT OF POTENTIAL SIDE EFFECTS.] Future Scheduled Test SKILLED NU RSE FOR O/A, TEACHING, AND MANAGEMENT OF CAD, CARDIOMYOPATHY. [code = SKILLED NURSE FOR O/A, TEACHING, AND MANAGEMENT OF CAD, CARDIOMYOPATHY.] Future Scheduled Test SKILLED NU RSE FOR O/A, TEACHING RELATED TO COLITIS, DIVERTICULITIS, GERD, IBS FOR EARLY IDENTIFICATION OF EXACERBATION OF DISEASE PROCESS. [code = SKILLED NURSE FOR O/A, TEACHING RELATED TO COLITIS, DIVERTICULITIS, GERD, IBS FOR EARLY IDENTIFICATION OF EXACERBATION OF DISEASE PROCESS.] Future Scheduled Test SKILLED NU RSE FOR O/A, TEACHING AND MANAGEMENT OF CKD FOR EARLY IDENTIFICATION OF EXACERBATION OF DISEASE PROCESS [code = SKILLED NURSE FOR O/A, TEACHING AND MANAGEMENT OF CKD FOR EARLY IDENTIFICATION OF EXACERBATION OF DISEASE PROCESS] Future Scheduled Test SKILLED NU RSE FOR O/A AND TEACHING OF ENDOCRINE SYSTEM TO IDENTIFY CHANGES ASSOCIATED WITH EXACERBATION OF HYPOTHYROIDISM FOR EARLY INTERVENTION OF COMPLICATIONS. [code = SKILLED NURSE FOR O/A AND TEACHING OF ENDOCRINE SYSTEM TO IDENTIFY CHANGES ASSOCIATED WITH EXACERBATION OF HYPOTHYROIDISM FOR EARLY INTERVENTION OF COMPLICATIONS.] Future Scheduled Test SKILLED NU RSE FOR O/A AND SKILLED TEACHING IN MANAGEMENT OF PE DISEASE. [code = SKILLED NURSE FOR O/A AND SKILLED TEACHING IN MANAGEMENT OF PE DISEASE.] Future Scheduled Test SKILLED NU RSE TO PROVIDE TEACHING ON SIGNS AND SYMPTOMS AND MANAGEMENT OF HYPERTENSION. [code = SKILLED NURSE TO PROVIDE TEACHING ON SIGNS AND SYMPTOMS AND MANAGEMENT OF HYPERTENSION.] Future Scheduled Test SKILLED NU RSE FOR O/A, TEACHING AND SELF-MANAGEMENT RELATED TO HEART FAILURE. INSTRUCT PATIENT/CAREGIVER ON SIGNS AND SYMPTOMS OF EXACERBATION TO REPORT AND IMPORTANCE OF OBTAINING AND RECORDING DAILY WEIGHT AND/OR MEASUREMENTS. SN OR TRAINED PATIENT/CAREGIVER TO OBTAIN WEIGHT DAILY AND WEIGHT GAIN OF 2 LBS OVERNIGHT OR 5 LBS IN 1 WEEK TO BE REPORTED TO PHYSICIAN/PROVIDER. IF UNABLE TO WEIGH PATIENT, SN OR TRAINED PATIENT/CAREGIVER TO OBTAIN MEASUREMENT OF L CALF IN CM DAILY AND REPORT AN INCREASE OF 2 CM TO PHYSICIAN/PROVIDER. [code = SKILLED NURSE FOR O/A, TEACHING AND SELF-MANAGEMENT RELATED TO HEART FAILURE. INSTRUCT PATIENT/CAREGIVER ON SIGNS AND SYMPTOMS OF EXACERBATION TO REPORT AND IMPORTANCE OF OBTAINING AND RECORDING DAILY WEIGHT AND/OR MEASUREMENTS. SN OR TRAINED PATIENT/CAREGIVER TO OBTAIN WEIGHT DAILY AND WEIGHT GAIN OF 2 LBS OVERNIGHT OR 5 LBS IN 1 WEEK TO BE REPORTED TO PHYSICIAN/PROVIDER. IF UNABLE TO WEIGH PATIENT, SN OR TRAINED PATIENT/CAREGIVER TO OBTAIN MEASUREMENT OF L CALF IN CM DAILY AND REPORT AN INCREASE OF 2 CM TO PHYSICIAN/PROVIDER.] Future Scheduled Test SKILLED NU RSE FOR O/A AND SKILLED TEACHING RELATED TO SIGNS AND SYMPTOMS AND MANAGEMENT OF IRON DEFICIENCY ANEMIA. [code = SKILLED NURSE FOR O/A AND SKILLED TEACHING RELATED TO SIGNS AND SYMPTOMS AND MANAGEMENT OF IRON DEFICIENCY ANEMIA.] Future Scheduled Test SKILLED NU RSE FOR O/A AND TEACHING OF DIABETIC MANAGEMENT INCLUDING BLOOD SUGAR MONITORING/USE OF GLUCOMETER, DIABETIC DIET, LOWER EXTREMITY SKIN INSPECTION, PROPER SKIN/FOOT CARE, AND SIGNS AND SYMPTOMS HYPO/HYPERGLYCEMIA TO REPORT. [code = SKILLED NURSE FOR O/A AND TEACHING OF DIABETIC MANAGEMENT INCLUDING BLOOD SUGAR MONITORING/USE OF GLUCOMETER, DIABETIC DIET, LOWER EXTREMITY SKIN INSPECTION, PROPER SKIN/FOOT CARE, AND SIGNS AND SYMPTOMS HYPO/HYPERGLYCEMIA TO REPORT.] Future Scheduled Test SKILLED NU RSE FOR O/A, TEACHING RELATED TO PANCREATIC CYST FOR EARLY IDENTIFICATION OF EXACERBATION OF DISEASE PROCESS. [code = SKILLED NURSE FOR O/A, TEACHING RELATED TO PANCREATIC CYST FOR EARLY IDENTIFICATION OF EXACERBATION OF DISEASE PROCESS.] Future Scheduled Test SKILLED NU RSE FOR O/A AND SKILLED TEACHING RELATED TO SIGNS AND SYMPTOMS AND MANAGEMENT OF OSTEOPOROSIS. [code = SKILLED NURSE FOR O/A AND SKILLED TEACHING RELATED TO SIGNS AND SYMPTOMS AND MANAGEMENT OF OSTEOPOROSIS.] Future Scheduled Test SKILLED NU RSE FOR O/A AND SKILLED TEACHING RELATED TO SIGNS AND SYMPTOMS AND MANAGEMENT OF POLYMUALGIA RHEUMATICA.. [code = SKILLED NURSE FOR O/A AND SKILLED TEACHING RELATED TO SIGNS AND SYMPTOMS AND MANAGEMENT OF POLYMUALGIA RHEUMATICA..] Future Scheduled Test VIRTUAL SIT FREQUENCY: 6 PRN VIRTUAL VISITS MAY BE PERFORMED UTILIZING TELECOMMUNICATIONS SYSTEM TO OPTIMIZE SKILLED SERVICES FURNISHED ON THE PLAN OF CARE. SKILLED NURSE TO ESTABLISH SUPPORT MEASURES TO MINIMIZE RISK OF REHOSPITALIZATION, AND INSTRUCT PATIENT/CAREGIVER ON METHODS TO REDUCE AVOIDABLE HOSPITALIZATION. [code = VIRTUAL VISIT FREQUENCY: 6 PRN VIRTUAL VISITS MAY BE PERFORMED UTILIZING TELECOMMUNICATIONS SYSTEM TO OPTIMIZE SKILLED SERVICES FURNISHED ON THE PLAN OF CARE. SKILLED NURSE TO ESTABLISH SUPPORT MEASURES TO MINIMIZE RISK OF REHOSPITALIZATION, AND INSTRUCT PATIENT/CAREGIVER ON METHODS TO REDUCE AVOIDABLE HOSPITALIZATION.] Future Scheduled Test PATIENT DENNY S A RISK OF HOSPITALIZATION AND ED USE. SKILLED NURSE TO ESTABLISH SUPPORT MEASURES TO MINIMIZE RISK OF HOSPITALIZATION AND ED USE, AND INSTRUCT PATIENT/CAREGIVER ON METHODS TO REDUCE AVOIDABLE HOSPITALIZATION AND ED USE. [code = PATIENT HAS A RISK OF HOSPITALIZATION AND ED USE. SKILLED NURSE TO ESTABLISH SUPPORT MEASURES TO MINIMIZE RISK OF HOSPITALIZATION AND ED USE, AND INSTRUCT PATIENT/CAREGIVER ON METHODS TO REDUCE AVOIDABLE HOSPITALIZATION AND ED USE.] Future Scheduled Test SKILLED NU RSE TO PROVIDE INSTRUCTION TO PATIENT/CAREGIVER RELATED TO DISCHARGE PLANNING. [code = SKILLED NURSE TO PROVIDE INSTRUCTION TO PATIENT/CAREGIVER RELATED TO DISCHARGE PLANNING.] Future Scheduled Test SKILLED NU RSE TO PERFORM ENVIRONMENTAL SAFETY RISK ASSESSMENT AND FALL RISK ASSESSMENT AND PROVIDE INSTRUCTION TO IMPLEMENT ENVIRONMENTAL SAFETY AND FALL PREVENTION STRATEGIES THROUGHOUT THE CERTIFICATION PERIOD. SKILLED NURSE WILL MAINTAIN SITUATIONAL AWARENESS AND WILL NOTIFY CLINICAL COSMETIC ACCOUNT COORDINATOR AND PHYSICIAN/PROVIDER WITH ANY CHANGE IN CONDITION. [code = SKILLED NURSE TO PERFORM ENVIRONMENTAL SAFETY RISK ASSESSMENT AND FALL RISK ASSESSMENT AND PROVIDE INSTRUCTION TO IMPLEMENT ENVIRONMENTAL SAFETY AND FALL PREVENTION STRATEGIES THROUGHOUT THE CERTIFICATION PERIOD. SKILLED NURSE WILL MAINTAIN SITUATIONAL AWARENESS AND WILL NOTIFY CLINICAL COSMETIC ACCOUNT COORDINATOR AND PHYSICIAN/PROVIDER WITH ANY CHANGE IN CONDITION.] Future Scheduled Test SKILLED NU RSE FOR OBSERVATION AND ASSESSMENT OF PATIENTS PAIN LEVEL AND EFFECTIVENESS OF PAIN MANAGEMENT REGIMEN. SKILLED NURSE TO INSTRUCT PATIENT/CAREGIVER REGARDING PHARMACOLOGIC AND NON-PHARMACOLOGIC PAIN CONTROL MEASURES. SKILLED NURSE TO REPORT TO PHYSICIAN IF PAIN IS UNCONTROLLED WITH CURRENT PAIN MANAGEMENT REGIMEN. [code = SKILLED NURSE FOR OBSERVATION AND ASSESSMENT OF PATIENTS PAIN LEVEL AND EFFECTIVENESS OF PAIN MANAGEMENT REGIMEN. SKILLED NURSE TO INSTRUCT PATIENT/CAREGIVER REGARDING PHARMACOLOGIC AND NON-PHARMACOLOGIC PAIN CONTROL MEASURES. SKILLED NURSE TO REPORT TO PHYSICIAN IF PAIN IS UNCONTROLLED WITH CURRENT PAIN MANAGEMENT REGIMEN.] Future Scheduled Test SKILLED NU RSE TO ASSESS PATIENT'S SKIN INTEGRITY AND INSTRUCT PATIENT/CAREGIVER ON MEASURES TO PREVENT PRESSURE ULCERS. [code = SKILLED NURSE TO ASSESS PATIENT'S SKIN INTEGRITY AND INSTRUCT PATIENT/CAREGIVER ON MEASURES TO PREVENT PRESSURE ULCERS.] Goal Patient Goal - GET STRONGER Goal Provider Goal - A PLAN OF CARE WILL BE ESTABLISHED THAT MEETS PATIENT'S [facility] NEEDS AND INCLUDES PATIENT GOAL FOR HOME HEALTH. Goal Provider Goal - PATIENT / CAREGIVER WILL VERBALIZE UNDERSTANDING OF EFFECTS OF URINARY INCONTINENCE BY THE END OF THE CERTIFICATION PERIOD. Goal Provider Goal - PATIENT/CAREGIVER WILL VERBALIZE/DEMONSTRATE UNDERSTANDING OF SAFE OXYGEN USE IN THE HOME THROUGHOUT THE EPISODE. Goal Provider Goal - PATIENT/CAREGIVER WILL VERBALIZE/DEMONSTRATE MANAGEMENT OF BREAST CANCER/NEOPLASM DISEASE AND THE SIDE EFFECTS OF TREATMENTS DURING THIS EPISODE. Goal Provider Goal - PATIENT/CAREGIVER WILL VERBALIZE/DEMONSTRATE MANAGEMENT OF CARDIAC DISEASE PROCESS AND EXACERBATIONS WILL BE IDENTIFIED AND PROMPTLY REPORTED THROUGHOUT THE CERTIFICATION PERIOD. Goal Provider Goal - EXACERBATIONS OF GASTROINTESTINAL DISEASE WILL BE PROMPTLY IDENTIFIED AND INTERVENTIONS IMPLEMENTED TO MINIMIZE RISKS TO PATIENT BY END OF EPISODE. Goal Provider Goal - PATIENT/CAREGIVER WILL VERBALIZE UNDERSTANDING OF GENITOURINARY DISEASE PROCESS, AND EXACERBATIONS OF GENITOURINARY DISEASE WILL BE PROMPTLY IDENTIFIED FOR EARLY INTERVENTION THROUGHOUT THE CERTIFICATION PERIOD. Goal Provider Goal - PATIENT/CAREGIVER WILL VERBALIZE SIGNS AND SYMPTOMS OF EXACERBATION OF ENDOCRINE DIAGNOSIS TO REPORT TO NURSE/PHYSICIAN THROUGHOUT THE CERTIFICATION PERIOD. Goal Provider Goal - PATIENT/CAREGIVER WILL VERBALIZE/DEMONSTRATE THE ABILITY TO MANAGE CIRCULATORY DISEASE PROCESS AND EXACERBATIONS WILL BE IDENTIFIED FOR EARLY INTERVENTION THROUGHOUT THE CERTIFICATION PERIOD. Goal Provider Goal - PATIENT/CAREGIVER WILL VERBALIZE SIGNS AND SYMPTOMS OF HYPERTENSION AND WILL BE ABLE TO DEMONSTRATE ABILITY TO MANAGE EXACERBATION BY END OF THE EPISODE. Goal Provider Goal - PATIENT/CAREGIVER WILL VERBALIZE/DEMONSTRATE KNOWLEDGE AND MANAGEMENT OF HEART FAILURE DISEASE PROCESS BY END OF EPISODE. Goal Provider Goal - PATIENT/CARGIVER WILL VERBALIZE UNDERSTANDING OF IRON DEFICIENCY ANEMIA INCLUDING SIGNS AND SYMPTOMS, MANAGEMENT OF COMPLICATIONS, AND PRESCRIBED TREATMENT REGIMEN BY END OF EPISODE. Goal Provider Goal - PATIENT/CAREGIVER WILL VERBALIZE/DEMONSTRATE KNOWLEDGE OF DIABETIC MANAGEMENT. CHANGES IN DIABETIC STATUS WILL BE IDENTIFIED AND REPORTED TO PHYSICIAN FOR PROMPT INTERVENTION THROUGHOUT THE CERTIFICATION PERIOD. Goal Provider Goal - EXACERBATIONS OF PANCREATIC DISEASE WILL BE PROMPTLY IDENTIFIED AND INTERVENTIONS IMPLEMENTED TO MINIZMIZE RISKS TO PATIENT BY END OF THE EPISODE. Goal Provider Goal - PATIENT/CAREGIVER WILL VERBALIZE UNDERSTANDING OF MUSCULOSKELETAL DISEASE INCLUDING SIGNS AND SYMPTOMS, MANAGEMENT, AND PRESCRIBED TREATMENT REGIMEN BY END OF EPISODE. Goal Provider Goal - PATIENT/CAREGIVER WILL VERBALIZE UNDERSTANDING OF AUTOIMMUNE DISEASE INCLUDING SIGNS AND SYMPTOMS, MANAGEMENT OF COMPLICATIONS, AND PRESCRIBED TREATMENT REGIMEN BY END OF EPISODE. Goal Provider Goal - PATIENT/CAREGIVER WILL UTILIZE VIRTUAL VISITS TO ACHIEVE GOALS OUTLINED ON THE PLAN OF CARE. PATIENT WILL HAVE SUPPORT MEASURES ESTABLISHED TO PREVENT HOSPITALIZATION AND PATIENT/CAREGIVER WILL VERBALIZE/DEMONSTRATE METHODS TO REDUCE AVOIDABLE HOSPITALIZATION THROUGHOUT THE CERTIFICATION PERIOD. Goal Provider Goal - PATIENT WILL HAVE SUPPORT MEASURES ESTABLISHED TO PREVENT HOSPITALIZATION AND ED USE AND PATIENT/CAREGIVER WILL VERBALIZE/DEMONSTRATE METHODS TO REDUCE AVOIDABLE HOSPITALIZATION AND ED USE BY END OF EPISODE. Goal Provider Goal - PATIENT/CAREGIVER WILL VERBALIZE UNDERSTANDING OF DISCHARGE PLANNING INSTRUCTIONS BY DATE OF DISCHARGE. Goal Provider Goal - PATIENT/CAREGIVER WILL VERBALIZE/DEMONSTRATE EFFECTIVE ENVIRONMENTAL SAFETY AND FALL PREVENTION STRATEGIES, WILL REMAIN SAFE IN THE COMMUNITY, AND WILL BE FREE OF DANGER TO SELF AND OTHERS THROUGHOUT THE CERTIFICATION PERIOD. Goal Provider Goal - PATIENT/CAREGIVER WILL DEMONSTRATE UNDERSTANDING OF PHARMACOLOGIC AND NONPHARMACOLOGIC PAIN CONTROL MEASURES AND PATIENT WILL HAVE IMPROVEMENT IN PAIN INTERFERING WITH ACTIVITY EVIDENCED BY PAIN CONTROLLED AT LEVEL OF 7 OR LESS BY END OF CERTIFICATION PERIOD. Goal Provider Goal - PATIENT/CAREGIVER WILL VERBALIZE UNDERSTANDING OF PRESSURE ULCER PREVENTION BY END OF THE EPISODE. Encounters Start Date/Time End Date/Time Encounter Type Admission Type Attending [facility] Care Department Encounter ID Discharge Date Discharge Status Discharge Condition Discharge Reason Percent Goals Met 2024-07-02 00:00:00 2024-08-30 00:00:00 Outpatient NEW ADMISSION JONAH MARTINO [facility] [id number] 33.33
--- OUTSIDE RECORDS SUMMARY | 2024-08-04 18:16 | XMS_ITS | Encounter Summary ---
Author Organization [facility] Address [address] [place] [address] Care Team Providers Care Lockmaker Name Role Phone John Avina DO Primary Care Provider [phone] Encounter Details Date Type Department Care Team (Late st Contact Info) Description 06/10/2024 Lab Requisition [facility] - Main Lab [address] [facility] [place] [address] Arianna Iraheta PA [address] [place], [place] [id number] Dysuria Social History Tobacco Use Types Packs/Day [...] ssp pneumoniae(A) RIC 06/12/2024 11:01 AM EST [facility] Comment: This is an edited result. [...] MICROBIOLOGY - GENERAL ORD ERABLES Final Result [facility] LAB [address] [place] [address], documented in this encounter Visit Diagnoses Diagnosis Dysuria documented in this encounter Care Teams Lockmaker Relationship Specialty Start Date End Date John Avina DO [address] [place] [phone] PCP - General Internal Medicine 06/10/24 documented as of this encounter
--- OUTSIDE RECORDS SUMMARY | 2024-08-04 18:16 | XMS_ITS | Clinical Summary ---
Author Organization [address] [facility] Address [address] [place] [address] Phone Care Team Providers Care Industrial Hygiene Manager Name Role Phone John Avina DO Primary Care Provider [phone] Encounters Date Type Department Care Team Description 06/10/2024 Lab Requisition [facility] - Main Lab [address] [facility] [place] [address] Arianna Iraheta PA Dysuria from [...] Vaccines (1 of 2) 1996 RSV Immunization Adult Patie nts (1 - 1-dose 75+ series) 2021 COVID-19 Vaccine ( - 2023-2 5 season) 2023 Depression Screening 06/11/2024 Falls Risk Assessment 06/11/2024 Hepatitis C Screening 06/11/2024 Medicare Annual Wellness Visit 06/11/2024 Osteoporosis Screening (Bone Density Screening) 06/11/2024 Social Influencers of Health Screening 06/11/2024 Influenza Vaccine (Season Ended) 2024 HIB Vaccines Aged Out No longer eligi [...] age to complete this topic Meningococcal B Vaccine Aged Out No l onger eligible based on patient's age to complete [...] ssp pneumoniae(A) RIC 06/12/2024 11:01 AM EST [facility] Comment: This is an edited [...] MICROBIOLOGY - GENERAL ORD ERABLES Final Result [facility] H[facility] LAB [address] [place] [address], from Last 3 Months Insurance MEDICARE [facility] Care Teams Industrial Hygiene Manager Relationship Specialty Start Date End Date John Avina DO [address] [place] [phone] PCP - General Internal Medicine 06/10/24
== END 2024-08-04 15:00 | disposition home or self-care (01) ==
LOC: HO.HMGCX 14:59
PROVIDERS: PCP Internal Medicine; Visit Provider Internal Medicine
DX: S70.00XA Contusion of unspecified hip, initial encounter (principal)
CPT/HCPCS: 73502

== ENCOUNTER → 2024-08-04 15:03 | Outpatient (BNV) | payer MEDICARE, SELFPAY | PROVIDERS: PCP Internal Medicine; Visit Provider Radiology Diagnostic Radiology | DX: S72.002A Fracture of unspecified part of neck of left femur, initial encounter for closed fracture (principal) | CPT/HCPCS: 73502 ==

== ENCOUNTER 2024-09-23 14:52 | Outpatient (AMB) | payer MEDICARE, SELFPAY ==
--- OUTSIDE RECORDS SUMMARY | 2024-09-23 14:58 | XMS_ITS | Encounter Summary ---
Author Organization [facility] Address [address] [place] [address] Care Team Providers Care Elementary Assistant Principal Name Role Phone John Avina DO Primary Care Provider [phone] Encounter Details Date Type Department Care Team (Late st Contact Info) Description 06/10/2024 Lab Requisition [facility] - Main Lab [address] [facility] [place] [address] Arianna Iraheta PA [address] [place], [place] [id number] Dysuria Social History Tobacco Use Types Packs/Day [...] ssp pneumoniae(A) RIC 06/12/2024 11:01 AM EST [facility] Comment: This is an edited [...] MICROBIOLOGY - GENERAL ORD ERABLES Final Result [facility] [address] [place] [address], documented in this encounter Visit Diagnoses Diagnosis Dysuria documented in this encounter Care Teams Elementary Assistant Principal Relationship Specialty Start Date End Date John Avina DO [address] [place] [id number] PCP - General Internal Medicine 06/10/24 documented as of this encounter
--- NOTE | 2024-09-23 15:02 | A.OFFPC_ITS ---
Vital Signs 09/23/24 15:03 Height 5 ft 1 in Weight 127 lb BMI 24.0 BP 129/57 L Respiration 14 Pulse 78 Pulse Source Pulse Oximeter Temp 97.6 F Temp Source Temporal Artery Scan Pulse Oximetry (%) 99 Oxygen Delivery Method Room Air Intake Visit Reasons: Discharge follow up Intake Note: Visit Reason: TCM Intake Note: Patient is here for hospital discharge follow up. Patient was discharged from Sulfonation Equipment Operator Required: No Drapery Seamstress: Not Required per policy Accompanied by: Self / Same As Patient Allergies esomeprazole [From NEXIUM] Allergy (Intermediate, Verified 09/23/24 15:24) CHEST PAIN omeprazole [From PRILOSEC] Allergy (Intermediate, Verified 09/23/24 15:24) CHEST PAIN diphenhydramine [From Benadryl] Allergy (Verified 09/23/24 15:24) Dizziness Medication List - Last Reconciled 09/23/24 by Mimi Calderón PA-C allopurinol 300 mg PO DAILY ascorbic acid (vitamin C) (Vitamin C) 500 mg PO DAILY biotin 1 mg PO DAILY bumetanide 2 mg See Protocol PO DAILY 90 days calcium carbonate (Calcium 600) 600 mg PO DAILY carvedilol 6.25 mg PO BID 90 days cholecalciferol (vitamin D3) (Vitamin D3) 50 mcg PO DAILY clopidogrel 75 mg PO DAILY 90 days cranberry 500 mg PO DAILY cyanocobalamin (vitamin B-12) 5,000 mcg PO DAILY dicyclomine 10 mg PO TIDAC PRN diphenoxylate-atropine 2.5-0.025 mg (Lomotil) 1 tab PO BID PRN exemestane 25 mg PO DAILY folic acid 1 mg PO DAILY hydralazine 25 mg See Protocol PO BEDTIME levothyroxine 100 mcg PO MOTUTHFRSA@0600 90 days vitamin E (dl, acetate) 450 mg PO DAILY Tobacco use date assessed: 07/07/24 Dental Screening Dental Screen Date: 07/07/24 HPI HPI Comments History of Present Illness Details Patient presents to the office for a TCM visit. Date of admission: Patient was admitted at [facility] on August 04, discharged on August 09 to [facility]. Patient was admitted at rehab [facility] from August 09 until September 17 when she was discharged home. This is a Follow-up from admission at [facility] for left hip fracture status post surgery and [facility] rehab HPI: The patient is a 79-year-old female presenting with a follow-up after discharge from a rehabilitation facility post-left hip fracture repair. The patient sustained a left hip fracture on August 04 from a fall in her garage and was treated at [facility]. Surgical intervention included the plac ement of three screws. Post-surgery, the patient spent a period from August 09 to September 17 in rehabilitation at [facility]. Presently, she experiences back pain suspected to be due to a possible kidney stone, with symptoms alternating on the right and left sides of the back, awaiting further evaluation from [facility]. Additionally, she reports occasional soreness in the surgical site of the hip. She has a longstanding history of anemia requiring transfusions, with a recent concern regarding the possibility of evolving leukemia, necessitating ongoing hematological evaluations including a recommended CT bone biopsy. Hospital course/discharge summary This is a 78-year-old female with a past medical history of hypertension, hyperlipidemia, CM, CKD, CAD, HFrEF, chronic anemia who is being followed by Hematology who presented to [facility] on August 04 after she had a mechanical fall at home on her garage and was diagnosed with a possible hip fracture by an urgent care at [facility]. She had repeat imaging and was found to have closed subcapital fracture of the left femoral bone. She was seen by orthopedic surgery and is status post left hip pinning on 08/08/2024. She did not require transfusion during hospitalization but does carry diagnosis of chronic anemia unclear etiology requiring frequent transfusions. She requires pretreatment with Benadryl and Tylenol due to history non hemolytic transfusion reaction, she was transferred to [facility] for rehabilitation. Discharged to/Current Location: Home Lives with: Son age 48 Diagnosis: Hip fracture status post pinning Procedures performed: Hip fracture status post pinning New medications: No new medications were started Discontinued medications: No medications were discontinued Change medications/dosing: There was no changes in medications or dosing Pending labs: There are no pending lab Pending diagnostic test: There are no pending diagnostic test Any Follow-up Labs required? There are no follow-up labs required Any Follow-up Diagnostic test required? There are no diagnostic test required How are you feeling? Pain in back ? Kidney Stone; had UA today and has f/u tomorrow possibly with PVU. Are you in any pain or discomfort? Yes right and left side back pain. Left hip sore. Do you have any questions about your condition or discharge instructions? No Were you able to get your medications filled? Yes Do you have any questions about your medications? No Any referrals required? None at this time Were you able to schedule your follow-up appointment? Patient was able to make all her follow-up appointment If home health was ordered, have they contact you? Patient reports she has a [employer] which is her son already in place Any outpatient services, if so, are you scheduled? Outpatient services are already scheduled and contacted patient which include VNA services, PT and OT Are there any additional resources like transportation you might need during her recovery? Not at this time - VNA? Patient just had a visiting nurs e at the beginning of the week and they went over everything. They will be come in for the next 6 weeks. - PT- was this morning already in place - OT- scheduled already in place - FRESH MEAT GRADER? Patient not interested at this t lore - Meals on wheels? Patient not interest ed at this time Educational need/resources: Patient needs more hours from [employer] the company she is currently receiving services from and her son is taking care of her through [employer] What support system do you have? Son is the caregiver and he will need more our [facility] Medical History Closed left hip fracture CAD (coronary artery disease) CHF (congestive heart failure) Cervix prolapsed into vagina History of blood transfusion (~02/01/23) Diabetes mellitus HFrEF (heart failure with reduced ejection fraction) Cardiomyopathy Normal colonoscopy Type 2 diabetes mellitus Diverticulosis Irritable bowel syndrome Pulmonary emboli GERD (gastroesophageal reflux disease) Nephrolithiasis Hypoparathyroidism Papillary thyroid carcinoma HTN (hypertension) Polymyalgia rheumatica Hyperglycemia Chronic anemia Anemia Surgical History Status post hip surgery (~08/04/23) History of colonoscopy (~07/30/18) Stented coronary artery Breast mass, right H/O endoscopy History of cholecystectomy H/O total thyroidectomy Family History Sister CHF (congestive heart failure) Daughter Breast cancer Son Kidney stones Social History Household Members: Family Household Members Other:: son Housing: House Do you presently have visiting nurse or other home services: No Alcohol intake: never Comment: Pt refuses fall risk protocol/ precautions- ambulates with steady gait Patient Tobacco Use Status: Never used Tobacco Years Smoked: 30 +/- e-Cigarette/Vaping Use: Never Used Second Hand Smoke Exposure: No Advance Directives Date on File: 06/27/24 service: No Current occupational status: retired Current occupation: Right Handed Cognitive needs: Yes (cane) Hearing needs: No Vision needs: Yes (reading glasses) Questionnaire PHQ-9 Over the last 2 weeks, how often have you been bothered by any of the following problems? 1. Little interest or pleasure in doing things: not at all 2. Feeling down, depressed, or hopeless: not at all 3. Trouble falling or staying asleep, or sleeping too much: not at all 4. Feeling tired or having little energy: not at all 5. Poor appetite or overeating: not at all 6. Feeling bad about yourself - or that you are a failure or have let yourself or your family down: not at all 7. Trouble concentrating on things, such as reading the newspaper or watching television: not at all 8. Moving or speaking so slowly that other people could have noticed. Or the opposite - being so fidgety or restless that you have been moving around a lot more than usual: not at all 9. Thoughts that you would be better off or of hurting yourself in some way: not at all Total score: 0 Depression Screening Interpretation: Negative Depression Screening Done: Yes 01056 - PHQ-9 Billing: Yes Source: Developed by Drs. John Torres, Park Emanuel, Tu Mccain and colleagues, with an educational ridge from [employer]. Thrive Questionnaire Date Thrive assessed: 07/07/24 I am a: Patient What is your living situation today?: I have a steady place to live Within the past 12 months, did the food you bought not last and you didn't have the money to get more?: Never true Within the past 12 months, did you worry whether your food would run out before you got money to buy more?: Never true Do you have trouble paying for medicines?: No Do you have trouble getting transportation to medical appointments?: No Do you have trouble paying your heating and electricity bill?: No Do you have trouble taking care of your child, family member or friend?: No Do you have trouble with day-to-day activities such as bathing, preparing meals, shopping, managing finances, etc.?: No Are you currently unemployed and looking for a job?: No Are you interested in more education?: No Please select the resources that you would like help with: None THRIVE Score: 0 AUDIT C Alcohol Use Questionnaire (AUDIT-C) 1. How often do you have a drink containing alcohol?: Never 3. How often do you have six or more drinks on one occasion?: Never Total Score: 0 Score Reviewed/Action Taken: No RASHAUN-7 AMB Questionnaire ARSHAUN-7 Date RASHAUN - 7 assessed: 07/07/24 Feeling nervous, anxious, or on edge: 0 = Not at all Not being able to stop or control worryin = Not at all Worrying too much about different things: 0 = Not at all Trouble relaxin = Not at all Being so restless that it is hard to sit still: 0 = Not at all Becoming easily annoyed or irritable: 0 = Not at all Feeling afraid as if something awful might happen: 0 = Not at all Total RASHAUN-7 score (0-4 normal; 5-9 mild; 10-14 moderate; 15-21 severe): 0 Source: Developed by Drs. John Torres, Park Emanuel, Tu Mccain and colleagues, with an educational ridge from [employer]. RASHAUN-7 Assessment Billing RASHAUN-7 Assessment Tool: RASHAUN-7 Assessment 23409 Review of Systems Const Details: - Musculoskeletal: Reports back pain bilaterally, intermittent aching in the left hip - Genitourinary: Reports back pain with suspicion of a kidney stone, awaiting follow-up - Hematologic: Reports a history of anemia, recently monitored for possible leukemia - General: Denies any recent falls, reports the occasional soreness at the surgical site - Metabolic/Endocrine: Reports history of diabetes, previously on Metformin, but not currently managed with medication Physical exam (Primary Care) Vital Signs: Last Vital Signs Temp 97.6 F 09/23/24 15:03 Pulse 78 09/23/24 15:03 Resp 14 09/23/24 15:03 BP 129/57 L 09/23/24 15:03 Pulse Ox 99 09/23/24 15:03 Oxygen Delivery Method Room Air 09/23/24 15:03 Vitals signs have been reviewed. Care Plan Goal for BP management: <140/90 at Goal BMI result Body Mass Index 24.0 normal bmi Tobacco/Smoking Status: Tobacco use Status Tobacco use date assessed 07/07/24 09/23/24 15:08 Patient Tobacco Use Status Never used Tobacco 09/23/24 15:08 Tobacco use type 08/15/23 17:11 e-Cigarette/Vaping Use Never Used 09/23/24 15:08 PHQ-9: PHQ-9 Score PHQ-9: Total score 0 09/23/24 15:08 Depression Screening Interpretation: Negative Thrive Assessment: Date of Thrive Assessment Date Thrive assessed 07/07/24 09/23/24 15:08 Const Other: Appearance: Alert. Oriented X3. No acute distress. Head: Normal external exam. Normocephalic. Atraumatic. Eyes: Pupils are equal, round, and reactive to light. Extraocular movements intact. Conjunctiva and sclera normal. Eyelids normal. Ears: External auditory canal normal. Tympanic membranes normal. Throat: Pharynx normal. Uvula midline. Moist mucous membranes. Neck: Normal inspection. Neck supple. Full range of motion. Cardiovascular: Normal heart rate and rhythm. Respiratory: No respiratory distress. Painless inspiration. Back: Full range of motion noted. Reports pain in the back, both right and left sides. Skin: Skin warm and dry. Normal skin color. Normal skin turgor. No rashes/lesions/lacerations noted. Incision site on the left hip appears good, no swelling noted. Extremities: No lower extremity edema. Surgical site within normal limits no signs of infection. Otherwise all other extremities exhibit normal range of motion nontender. Neuro: Oriented X 3. No motor deficit. No sensory deficit. Reflexes normal. Patient has a normal steady gait with walker. Results Reviewed Results Reviewed: - Labs: Anemia with hemoglobin levels monitored; past A1c at 5.4 indicating non-diabetic status - Diagnostic Test: Urinalysis pending for potential kidney stone evaluation - Diagnostic Test: Order for CT bone biopsy pending coordination for hematological evaluation Coding Level of Care Code TCM High MDM <= 14 days Complex EM visit Add On G2211 Diagnoses Closed left hip fracture S72.002A Additional Codes PHQ-9 - 79861 - PHQ-9 Billing: Yes ([id number]) RASHAUN-7 Assessment Billing - RASHAUN-7 Assessment Tool: RASHAUN-7 Assessment 49914 ([id number]) Assessment & Plan Assessment & Plan (1) Closed left hip fracture: Code(s): S72.002A - Fracture of unspecified part of neck of left femur, initial encounter for closed fracture Category: Medical Plan: Follow-up after surgical repair remains consistent with no complications. Continuing weekly nursing visits and physical therapy to aid recovery. Condition is chronic improved after surgery and stable will continue to monitor. Plan Plan Patient was informed and verbally consented to the use of an ambient scribe for clinic note documentation during this visit. 1. Left Hip Fracture Follow-up after surgical repair remains consistent with no complications. Continuing weekly nursing visits and physical therapy to aid recovery. 2. Anemia With Monitoring For Leukemia Ongoing management with last sorter to monitor suspected leukemia development. Pending CT bone biopsy for further evaluation. 3. Possible Kidney Stone Awaiting results from urinalysis to confirm diagnosis. Referral to [facility] for further management is in place. I discussed the management and follow-up plan with the patient, emphasizing monitoring her anemia and potential leukemia with her last sorter. The importance of ongoing transfusions was reiterated, and she was advised to await the CT bone biopsy scheduling. Regarding her possible kidney stone, I advised awaiting the results of her urinalysis, with further coordination with [facility] for necessary investigations. I explained the benefits and potential outcomes of these evaluations. We reviewed her current care plan and physical therapy routine to optimize her recovery post-hip fracture. I assured her the pending diagnostic procedures were necessary for comprehensive care. Patient Instructions: - Continue following up with your last sorter for anemia management. - Monitor symptoms and await call from [facility] regarding possible kidney stones. - Stay consistent with prescribed physical therapy exercises. - Look out for any signs of worsening symptoms and reach out if urgent care is needed. - Attend scheduled appointments, including upcoming evaluations and follow-ups.
[2024-09-23 15:03] VITALS: BP 129/57; PULSE 78; RESP 14; TEMP 36.4; O2SAT 99; BMI 24.0
== END 2024-09-23 15:36 | disposition home or self-care (01) ==
LOC: HO.HMCSH 14:52
PROVIDERS: PCP Internal Medicine; Visit Provider Physician Assistant Medical
DX: S72.002A Fracture of unspecified part of neck of left femur, initial encounter for closed fracture (principal)

== ENCOUNTER → 2024-09-23 14:52 | Outpatient (BNVA) | payer MEDICARE, SELFPAY | PROVIDERS: PCP Internal Medicine; Visit Provider Physician Assistant Medical | DX: S72.002D Fracture of unspecified part of neck of left femur, subsequent encounter for closed fracture with routine healing (principal) | CPT/HCPCS: 96127; 99212 ==

== ENCOUNTER 2024-10-05 13:35 | Outpatient (AMB) | payer MEDICARE, SELFPAY ==
[2024-10-05 13:42] VITALS: BP 114/72; PULSE 71; BMI 24.2
--- NOTE | 2024-10-05 13:42 | A.OFFVIS_ITS ---
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 Allergies esomeprazole [From NEXIUM] Allergy (Intermediate, Verified 10/05/24 13:44) CHEST PAIN omeprazole [From PRILOSEC] Allergy (Intermediate, Verified 10/05/24 13:44) CHEST PAIN diphenhydramine [From Benadryl] Allergy (Verified 10/05/24 13:44) Dizziness Medication List - Last Reconciled 10/05/24 by JIMMY Correa allopurinol 300 mg PO DAILY ascorbic acid (vitamin C) (Vitamin C) 500 mg PO DAILY biotin 1 mg PO DAILY bumetanide 2 mg See Protocol PO DAILY 90 days calcium carbonate (Calcium 600) 600 mg PO DAILY carvedilol 6.25 mg PO BID 90 days cholecalciferol (vitamin D3) (Vitamin D3) 50 mcg PO DAILY clopidogrel 75 mg PO DAILY 90 days cranberry 500 mg PO DAILY cyanocobalamin (vitamin B-12) 5,000 mcg PO DAILY dicyclomine 10 mg PO TIDAC PRN diphenoxylate-atropine 2.5-0.025 mg (Lomotil) 1 tab PO BID PRN exemestane 25 mg PO DAILY folic acid 1 mg PO DAILY hydralazine 25 mg See Protocol PO BEDTIME levothyroxine 100 mcg PO MOTUTHFRSA@0600 90 days vitamin E (dl, acetate) 450 mg PO DAILY HPI HPI r/s 3 month f/u just out of rehab: Details: Tonia is a 79-year-old female past medical history of hypertension, diabetes, chronic kidney disease, chronic anemia, heart failure with reduced EF, nonischemic cardiomyopathy, mitral regurgitation, CAD with RCA stent, who had mechanical fall July 2024 which resulted in fractured left hip. She underwent ORIF and then went to rehab. She is now doing well and ambulates with a walker. She tells me she was taken off rosuvastatin but is unclear why. Today she reports that her left hip is healing well. She no longer has pain in that area but has been experiencing low back pain. She is currently undergoing testing for further evaluation. She has not had any chest discomfort at rest or with activity. She denies shortness of breath with activity, PND, orthopnea or edema. She sleeps with 2 pillows and has been noticing some shortness of breath in the nighttime. No heart palpitations, lightheadedness, presyncope, syncope, falls. She has known chronic anemia but denies any signs of bleeding. She follows with hematology. Does only light physical activities. Compliant with all meds. [facility] Medical History Closed left hip fracture CAD (coronary artery disease) CHF (congestive heart failure) Cervix prolapsed into vagina History of blood transfusion (~02/01/23) Diabetes mellitus HFrEF (heart failure with reduced ejection fraction) Cardiomyopathy Normal colonoscopy Type 2 diabetes mellitus Diverticulosis Irritable bowel syndrome Pulmonary emboli GERD (gastroesophageal reflux disease) Nephrolithiasis Hypoparathyroidism Papillary thyroid carcinoma HTN (hypertension) Polymyalgia rheumatica Hyperglycemia Chronic anemia Anemia Surgical History Status post hip surgery (~08/04/23) History of colonoscopy (~07/30/18) Stented coronary artery Breast mass, right H/O endoscopy History of cholecystectomy H/O total thyroidectomy Family History Sister CHF (congestive heart failure) Daughter Breast cancer Son Kidney stones Social History Household Members: Family Household Members Other:: son Housing: House Do you presently have visiting nurse or other home services: No Alcohol intake: never Comment: Pt refuses fall risk protocol/ precautions- ambulates with steady gait Patient Tobacco Use Status: Never used Tobacco Years Smoked: 30 +/- e-Cigarette/Vaping Use: Never Used Second Hand Smoke Exposure: No Advance Directives Date on File: 06/27/24 service: No Current occupational status: retired Current occupation: Right Handed Cognitive needs: Yes (cane) Hearing needs: No Vision needs: Yes (reading glasses) Review of Systems Const All systems reviewed & are unremarkable except as noted in HPI and below ENT Denies dizziness Card Denies chest pain, Denies chest pain at rest, Denies chest pain with activity, Denies rapid heart rate, Denies pedal edema, Denies edema, Denies leg edema, Denies lightheadedness, Denies palpitations, Denies dyspnea, Denies dyspnea on exertion and Denies orthopnea Resp Denies cough, Denies dyspnea and Denies dyspnea on exertion GI Denies hematochezia and Denies change in stool character Musc Details: back pain Reports abnormal gait (using walker), Denies limited range of motion, Denies muscle cramps, Denies muscle weakness, Denies numbness, Denies radiating pain i nto limb, Denies stiffness and Denies tingling Neuro Reports abnormal gait (using walker), Denies dizziness, Denies numbness and Denies tingling Endo Denies palpitations Physical Exam Vital Signs: Last Vital Signs Pulse 71 10/05/24 13:42 BP 114/72 10/05/24 13:42 BMI result Body Mass Index 24.2 Const General: cooperative, healthy appearing, comfortable and no acute distress Orientation/consciousness: patient oriented x3 Neck Neck: Yes normal visual inspection and Yes no JVD Resp Effort & Inspection: normal respiratory effort Auscultation: clear to auscultation bilaterally, no crackles, no rales, no rhonchi and no wheezes Cardio Rate: regular rate Rhythm: regular rhythm Heart sounds: S1 normal heart sound present, S2 normal heart sound present, no gallops, no murmurs and no rubs Neuro General: patient oriented x3 Extrem General: Yes normal to inspection, No no pedal edema and No calf tenderness Psych Appearance: grossly normal Mental Status: mental status grossly normal Speech and movement: Normal speech and movement present Assessment & Plan Assessment & Plan (1) HFrEF (heart failure with reduced ejection fraction): Code(s): I50.20 - Unspecified systolic (congestive) heart failure Category: Medical Plan: History of heart failure with reduced EF that is currently stable. She is on Bumex 2 mg daily. Last echocardiogram 04/07/2024 shows EF 35-40%, basal inferior and basal anterior lateral akinetic grade 2 diastolic dysfunction, [id number] MR. She does not appear fluid overloaded on examination. Continue carvedilol for neurohormonal modulation. Continue hydralazine. She is not on Tunde/Arb due to TED/ CKD. Labs done 09/18/2024 shows creatinine 1.74 which is similar to prior. Signs and symptoms of heart failure reviewed with her. (2) History of cardiomyopathy: Code(s): Z86.79 - Personal history of other diseases of the circulatory system Category: Medical Plan: History of cardiomyopathy, previously thought to be nonischemic. Echocardiogram 08/09/2023 showed EF 30%, which was further reduce, grade 3 diastolic dysfu nction, basal inferior and basal inferior lateral segments akinetic, left atrium severely dilated, severe mitral valve regurgitation, mild AR. ( prior EF was 43%). She underwent a cardiac catheterization 09/19/2023 showing mid RCA 95% stenosis, GREG placed. Also residual disease in the mid left circumflex and mild in the mid LAD. Her EF remained down in spite of revascularization. Most recent EF 35-40%. She has been on carvedilol and hydralazine for neurohormonal modulation. Will plan for repeat echocardiogram prior to her next visit. (3) HTN (hypertension): Code(s): I10 - Essential (primary) hypertension Category: Medical Plan: Blood pressure goal less than 130/80. Well controlled at present. No med change made. Continue carvedilol and hydralazine. (4) Anemia: Code(s): D64.9 - Anemia, unspecified Category: Medical Plan: Follows with Dr. Tse. Last labs in our system 09/18/2024 shows hematocrit 26.3, which is good for her. She denies any known active bleeding. (5) CAD (coronary artery disease): Comment: Cardiac catheterization, August 2023 showed critical RCA stenosis 95%, status post drug-eluting stent, 70% circumflex stenosis Code(s): I25.10 - Atherosclerotic heart disease of [place] coronary artery without angina pectoris Category: Medical Plan: Cardiac catheterization showing significant RCA stenosis, GREG was placed, residual mid left circumflex 70% stenosis and mid LAD 30-40% stenosis. No reports of anginal sounding symptoms. She was recently taken off aspirin. She continues on Plavix 75 mg daily as single antiplatelet agent. Continue carvedilol. She tells me rosuvastatin was recently stopped for unclear reason. Her LFTs in our system are normal. Will restart rosuvastatin. (6) Stented coronary artery: Comment: 09/19/2023, drug-eluting stent to critical RCA stenosis at 95% for ischemic cardiomyopathy Code(s): Z95.5 - Presence of coronary angioplasty implant and graft Category: Surgical Plan: As above (7) Mitral regurgitation: Code(s): I34.0 - Nonrheumatic mitral (valve) insufficiency Category: Medical Plan: Echocardiogram done 08/09/2023 showed severe mitral regurgitation. A repeat echocardiogram done 10/22/2023 shows mild mitral regurgitation. Last echo 04/07/2024 shows [id number] mitral regurgitation. Plan We discussed the management of her coronary artery disease, particularly with regards to medication choices like resuming rosuvastatin due to its benefits in plaque stabilization and cardiovascular protection. We also covered diuretic therapy with Bumex and the necessity of continuing carvedilol and hydralazine. We addressed the patient's regimen post-stenting and reiterated the plan to continue Plavix only. I explained risks and benefits associated with these pharmacologic strategies, emphasizing monitoring renal function given recent creatinine levels. We also discussed coordination with Dr. Tse regarding ongoing management of her anemia. I highlighted symptoms of concern, pointing out particular attention on nocturnal breathing difficulties. We reviewed the action steps the patient should take if these worsen, and she was advised the definition of when urgent evaluation would be warranted. Medications: New rosuvastatin 20 mg PO DAILY 90 tabs 3RF Patient Instructions: - Continue taking Bumex, carvedilol, hydralazine, and Plavix as prescribed - Resume rosuvastatin unless liver function tests indicate otherwise - Monitor and report any increase in breathing difficulties, especially at night - Follow Dr. Tse's guidance regarding anemia and transfusion needs - Attend the planned follow-up and report any new or worsening cardiac symptoms - Avoid falling; use a walker as previously instructed for mobility assistance Patient was informed and verbally consented to the use of an ambient scribe for clinic note documentation during this visit. Visit time spent on chart review, interview, assessment, orders, documentation. Coding Level of Care Code Est Pt Level 4 (46705) Complex EM visit Add On G2211 Diagnoses HFrEF (heart failure with reduced ejection fraction) I50.20 History of cardiomyopathy Z86.79 HTN (hypertension) I10 Anemia D64.9 CAD (coronary artery disease) I25.10 Stented coronary artery Z95.5 Mitral regurgitation I34.0 Time Spent (min) 32
--- OUTSIDE RECORDS SUMMARY | 2024-10-05 15:08 | XMS_ITS | Encounter Summary ---
Author Organization [facility] Address [address] [place] [address] Care Team Providers Care Disability Attorney Name Role Phone John Avina DO Primary Care Provider [phone] Encounter Details Date Type Department Care Team (Late st Contact Info) Description 06/10/2024 Lab Requisition [facility] - Main Lab [address] [facility] [place] [address] Arianna Iraheta PA [address] [place], [place] [id number] Dysuria Social History Tobacco Use Types Packs/Day [...] ssp pneumoniae(A) RIC 06/12/2024 11:01 AM EST [facility] Comment: This is an edited [...] MICROBIOLOGY - GENERAL ORD ERABLES Final Result [facility] H[facility]PITAL LAB [address] [place] [address], documented in this encounter Visit Diagnoses Diagnosis Dysuria documented in this encounter Care Teams Disability Attorney Relationship Specialty Start Date End Date John Avina DO [address] [place] [id number] PCP - General Internal Medicine 06/10/24 documented as of this encounter
== END 2024-10-05 14:25 | disposition home or self-care (01) ==
LOC: HO.HCS 13:36
PROVIDERS: PCP Internal Medicine; Visit Provider Nurse Practitioner Family
DX: I50.20 Unspecified systolic (congestive) heart failure (principal); Z86.79 Personal history of other diseases of the circulatory system; I10 Essential (primary) hypertension; D64.9 Anemia, unspecified; I25.10 Atherosclerotic heart disease of native coronary artery without angina pectoris; Z95.5 Presence of coronary angioplasty implant and graft; I34.0 Nonrheumatic mitral (valve) insufficiency
CPT/HCPCS: 99214; G2211

== ENCOUNTER → 2024-10-05 13:35 | Outpatient (BNVA) | payer MEDICARE, SELFPAY | PROVIDERS: PCP Internal Medicine; Visit Provider Nurse Practitioner Family | DX: D64.9 Anemia, unspecified (principal); I25.10 Atherosclerotic heart disease of native coronary artery without angina pectoris; I34.0 Nonrheumatic mitral (valve) insufficiency; Z95.5 Presence of coronary angioplasty implant and graft | CPT/HCPCS: 99212 ==

== ENCOUNTER 2024-10-12 11:54 | Inpatient (IN) | payer MEDICARE, SELFPAY ==
--- NOTE | ~2024-10-12 | XR_ITS ---
EXAMINATION: XR CHEST 2 VIEWS HISTORY: CP/SOB COMPARISON: Comparison is made with the prior examination dated 06/26/2024. FINDINGS: PA and lateral views of the chest are submitted. The lungs are expanded and clear. There is no pleural effusion, pneumothorax, or pulmonary vascular congestion. The heart remains enlarged. The aorta is calcified. There is degenerative disc disease of the spine. XR/XR chest 2V IMPRESSION: Cardiomegaly. No acute cardiopulmonary abnormality. Electronically signed by: John Pollock MD 10/12/2024 12:44 PM EDT
--- NOTE | 2024-10-12 11:56 | ECG_ITS ---
Test Reason : cp Blood Pressure : */* mmHG Vent. Rate : 76 BPM Atrial Rate : 76 BPM P-R Int : 164 ms QRS Dur : 104 ms QT Int : 418 ms P-R-T Axes : -5 -20 67 degrees QTcB Int : 470 ms Sinus rhythm with Premature supraventricular complexes and with frequent Premature ventricular complexes Minimal voltage criteria for LVH, may be normal variant ( Juan Miguel product ) Nonspecific T wave abnormality Prolonged QT Abnormal ECG When compared with ECG of 30-Jun-2024 09:40, Premature supraventricular complexes are now Present [place] interval has decreased Referred By: Luly Barnard Electronically Signed By: CATARINO GÓMEZ
[2024-10-12 12:01] VITALS: BP 156/83; PULSE 77; RESP 16; TEMP 36.7; O2SAT 98; BMI 23.9
--- NOTE | 2024-10-12 12:01 | ED.CHESTPAIN ---
HPI - Chest Pain General Chief Complaint: Chest Pain Stated Complaint: Chest Pain L Shoulder Pain Time Seen by Provider: 10/12/24 14:24 Source: patient and family (Son) Mode of arrival: ambulatory Limitations: no limitations History of Present Illness ED Provider: DR. Yao HPI narrative: 79-year-old female PMH significant for anemia, HFrEF 34%, CAD/P RCA stent, breast cancer s/p lumpectomy and chemotherapy, hypothyroidism, HTN presented with left-sided chest pain, patient also been having shortness of breath with any exertion, notice increased swelling to bilateral lower extremities, sleep on 2 pillows with oxygen at night no PND. No fever, no chills, no recent travel, no coughing. Patient takes Bumex at home. Related Data Home Medications ?Medication ?Instructions ?Recorded ?Confirmed cholecalciferol (vitamin D3) 50 50 mcg PO DAILY 02/29/20 10/05/24 mcg (2,000 unit) tablet (Vitamin D3) cyanocobalamin (vitamin B-12) 5,000 mcg PO DAILY 02/29/20 10/05/24 5,000 mcg disintegrating tablet folic acid 1 mg tablet 1 mg PO DAILY 02/29/20 10/05/24 cranberry 500 mg capsule 500 mg PO DAILY 11/20/22 10/05/24 ascorbic acid (vitamin C) 500 mg 500 mg PO DAILY 09/23/23 10/05/24 tablet (Vitamin C) biotin 1 mg tablet 1 mg PO DAILY 06/26/24 10/05/24 calcium carbonate (Calcium 600) 600 mg PO DAILY 06/26/24 10/05/24 exemestane 25 mg tablet 25 mg PO DAILY 06/26/24 10/05/24 hydralazine 25 mg tablet 25 mg PO BEDTIME 06/26/24 10/05/24 vitamin E (dl, acetate) 450 mg 450 mg PO DAILY 06/26/24 10/05/24 (1,000 unit) capsule Previous Rx's ?Medication ?Instructions ?Recorded bumetanide 1 mg tablet 2 mg PO DAILY 90 days #180 tabs 01/14/24 Held on 07/01/24. Instructions: Resume on 07/03/24. allopurinol 300 mg tablet 300 mg PO DAILY #90 tabs 04/28/24 clopidogrel 75 mg tablet 75 mg PO DAILY 90 days #90 tabs 05/05/24 carvedilol 6.25 mg tablet 6.25 mg PO BID 90 days #180 tabs 05/06/24 levothyroxine 100 mcg tablet 100 mcg PO MOTUTHFRSA@0600 90 days 05/06/24 #65 tabs dicyclomine 10 mg capsule 10 mg PO TIDAC PRN Diarrhea #30 07/01/24 caps diphenoxylate-atropine 2.5 1 tab PO BID PRN diarrhea #10 tabs 07/07/24 mg-0.025 mg tablet (Lomotil) rosuvastatin 20 mg tablet 20 mg PO DAILY #90 tabs 10/05/24 Allergies Allergy/AdvReac Type Severity Reaction Status Date / Time esomeprazole (From NEXIUM) Allergy Intermediate CHEST PAIN Verified 10/12/24 12:03 omeprazole (From PRILOSEC) Allergy Intermediate CHEST PAIN Verified 10/12/24 12:03 diphenhydramine (From Allergy Dizziness Verified 10/12/24 12:03 Benadryl) Review of Systems Review of Systems: All other systems are reviewed and are negative Constitutional: Reports as per HPI and Reports no additional constitutional complaints Eyes: Reports as per HPI and Reports no additional eye complaints Reports system reviewed and no additional complaints, except as documented Cardiovascular: Reports as per HPI and Reports no additional cardiovascular complaints Respiratory: Reports as per HPI and Reports no additional respiratory complaints Gastrointestinal: Reports as per HPI and Reports no additional gastrointestinal complaints Genitourinary: Reports no additional female genitourinary complaints Musculoskeletal: Reports no additional musculoskeletal complaints Skin/Breast: Reports system reviewed and no additional complaints, except as docu Psychiatric: Reports no additional psychiatric complaints Endocrine: Reports no additional endocrine complaints Hematologic/Lymphatic: Reports no additional hematologic/lymphatic complaints Allergic/Immunologic: Reports no additional allergic/immunologic complaints Reports system reviewed and no additional complaints, except as documented and Reports Abnormal speech present [facility] Past Medical History Medical History Closed left hip fracture CAD (coronary artery disease) CHF (congestive heart failure) Cervix prolapsed into vagina History of blood transfusion (~02/01/23) Diabetes mellitus HFrEF (heart failure with reduced ejection fraction) Cardiomyopathy Normal colonoscopy Type 2 diabetes mellitus Diverticulosis Irritable bowel syndrome Pulmonary emboli GERD (gastroesophageal reflux disease) Nephrolithiasis Hypoparathyroidism Papillary thyroid carcinoma HTN (hypertension) Polymyalgia rheumatica Hyperglycemia Chronic anemia Anemia Surgical History Status post hip surgery (~08/04/23) History of colonoscopy (~07/30/18) Stented coronary artery Breast mass, right H/O endoscopy History of cholecystectomy H/O total thyroidectomy Family History Family History Sister CHF (congestive heart failure) Daughter Breast cancer Son Kidney stones Social History Social History Household Members: Family Household Members Other:: son Housing: House Do you presently have visiting nurse or other home services: No Alcohol intake: never Comment: Pt refuses fall risk protocol/ precautions- ambulates with steady gait Patient Tobacco Use Status: Never used Tobacco Years Smoked: 30 +/- Smoked in Last 30 Days: No e-Cigarette/Vaping Use: Never Used Second Hand Smoke Exposure: No Use of substances other than those prescribed or required for medical reasons: No Advance Directives: Yes Advance Directives on File: Yes Advance Directives Date on File: 06/27/24 service: No Current occupational status: retired Current occupation: Right Handed Cognitive needs: Yes (cane) Hearing needs: No Vision needs: Yes (reading glasses) Physical Exam Vital Signs: Vital Signs: Last Vital Signs Temp 97.7 F 10/12/24 16:57 Pulse 75 10/12/24 16:57 Resp 20 10/12/24 16:57 BP 148/83 H 10/12/24 16:57 Pulse Ox 95 10/12/24 16:57 O2 Del Method Room Air 10/12/24 16:57 BMI result Body Mass Index 23.9 Vital signs have been reviewed and appear to be correct. Blood pressure elevated. Heart rate normal. Respiratory rate normal. Temperature normal. Oxygen saturation normal. Appearance: Alert. Oriented X3. No acute distress. Head: Normal external exam. Normocephalic. Atraumatic. No Anders signs noted. No raccoon eyes noted Eyes: PERRLA. EOMI. Conjunctiva and sclera normal. Eyelids normal. ENT: TM's Normal. Pharynx normal. Uvula midline. Moist mucous membranes. No trismus noted. No drooling noted. No muffled voice noted. Neck: Normal inspection. Neck supple. FROM. No adenopathy. Thyroid Normal. No meningeal signs. No neck mass noted. CVS: Normal heart rate and rhythm. Heart sound normal. No murmurs noted. Pulses normal throughout. Respiratory: No respiratory distress. Painless inspiration. Breath sounds normal. Bilateral rales to the lower 1/3 of lung fitzgerald bilaterally. Chest nontender. No accessory muscle usage noted or decreased air movement noted. Abdomen: Soft and nontender. Bowel sounds normal in all 4 quadrants. No distention noted. No organomegaly noted. No visible injury noted. Back: No CVA tenderness. Full range of motion noted. Skin: Skin warm and dry. Normal skin color. Normal skin turgor. No rashes/lesions/lacerations noted. Extremities: +1 bilateral lower extremity edema. Extremities exhibit normal range of motion. Extremities nontender. Neuro: Oriented X 3. Cranial nerve exam: II-XII are grossly intact No motor deficit. No sensory deficit. Reflexes normal. Course Course Course Narrative: This is an RME: Additional HPI, ROS, PE not included below will be deferred to primary provider. RME assessment and note performed by: Luly Barnard PA-C This is a 79 year old female, with a hx of microcytic anemia of unclear etiology, HFreEF 35-40%, CAD s/p stenting of RCA, breast cancer s/p lumpectomy 07/01/2023 on maintenance chemotherapy, hypothyroidism, HTN, and osteoporosis here with complaints of left sided chest pain and left shoulder pain for the last several days. Pain is waxing and waning in severity - constant. Endorsing shortness of breath. No dizziness. Plan: Labs, EKG, CXR, further ER eval needed. Reevaluation(s) Reevaluation #1: 79-year-old female came in for evaluation of CP/exertional SOB. Elevated troponin with no EKG changes and currently patient has no chest pain reviewed with jeff Rosen for the patient to be admitted to medical floor. Continue with diuresis using Bumex. Time: 17:46 Medications Administered Discontinued Medications Generic Name Dose Route Start Last Admin Trade Name Freq PRN Reason Stop Dose Admin Aspirin 325 mg 10/12/24 14:31 10/12/24 15:04 Aspirin Enteric Coated 325 Mg Tablet.Dr SNELL 10/12/24 14:32 325 mg ONCE ONE Administration Bumetanide 1 mg 10/12/24 14:58 10/12/24 15:04 Bumetanide 1 Mg/4 Ml Vial IVPUSH 10/12/24 14:59 1 mg ONCE ONE Administration Protocol Medical Decision Making Differential Diagnosis Differential Diagnoses: The differential diagnosis associated with the presentation includes (CHF, ACS, pneumonia, pneumothorax, pleural effusion, severe anemia, electrolyte derangement.) Admission/Observation Consideration of admission/observation: Escalation of care including admission/observation considered Consult Healthcare Provider Management of the patient was discussed with: Hospitalist (Dr. Espana) and Nurseryman Assistant (Dr. Matias) Lab Data MDM Lab Attestation statement: I reviewed the patient's lab results. 10/12/24 12:53 10/12/24 12:53 Labs: Lab Results 10/12/24 10/12/24 Range/Units 12:53 16:42 WBC 7.4 (4.8-10.8) X10*3/uL RBC 2.58 L (4.20-5.50) X10*6/uL Hgb 9.1 L (12.0-16.0) g/dl Hct 26.3 L (37.0-47.0) % MCV 101.9 H D (80.0-98.0) fL MCH 35.3 H (27.0-33.0) pg MCHC 34.6 (31.0-35.0) g/dl RDW 17.8 H (11.0-16.0) % Plt Count 169 (160-400) X10*3/uL MPV 9.1 L (9.4-12.3) fL Immature Gran % (Auto) 0.4 (0.0-0.4) % Neut % (Auto) 72.2 (45-73) % Lymph % (Auto) 15.9 L (20-40) % Ulster % (Auto) 9.6 (2-11) % Eos % (Auto) 1.5 (0-4) % Baso % (Auto) 0.4 (0-2) % Lymph # (Auto) 1.2 (1.2-4.9) X10*3/uL Ulster # (Auto) 0.7 (0.1-1.2) X10*3/uL Eos # (Auto) 0.1 (0.0-0.4) X10*3/uL Baso # (Auto) 0.0 (0.0-0.2) X10*3/uL Abs Immat Gran (auto) 0.03 (0.00-0.03) X10*3/uL Absolute Neuts (auto) 5.3 (2.0-8.3) x10*3/uL Absolute Nucleated RBC 0.000 (0.0-0.012) X10*3/uL Nucleated RBC % (auto) 0.0 (0.0-0.2) /100WBC Sodium 143 (135-145) mmol/L Potassium 3.7 (3.3-5.1) mmol/L Chloride 109 H (96-108) mmol/L Carbon Dioxide 23 (22-29) mmol/L Anion Gap 15 (12-20) BUN 24 H (9-16) mg/dL Creatinine 1.77 H (0.5-1.4) mg/dL Estim Creat Clear Calc 21.3 Estimated GFR 28 Random Glucose 115 (60-115) mg/dL Calcium 9.0 D (8.4-10.2) mg/dL Magnesium 2.2 (1.6-2.6) mg/dL Total Bilirubin 0.7 (0.0-1.0) mg/dL Direct Bilirubin 0.2 (0.0-0.5) mg/dL AST 16 (5-31) U/L ALT 11 (0-31) U/L Alkaline Phosphatase 61 (39-117) U/L Troponin I High Sens 24.9 H D 36.3 H (<3.5-17.0) ng/L B-Natriuretic Peptide 2629 H (<100) pg/mL Total Protein 7.0 (6.5-8.0) g/dL Albumin 4.1 (3.5-5.0) g/dL Influenza Type A (PCR) NEGATIVE (Negative) Influenza Type B (PCR) NEGATIVE (Negative) RSV RNA Qual (PCR) NEGATIVE (Negative) SARS-CoV-2 RNA (RT-PCR) NEGATIVE (Negative) Independent Interpretation I performed an independent interpretation of an: Plain X-Ray (Chest: Cardiomegaly no acute cardiopulmonary abnormality.) Radiology Impression Discussion of test interpretation with radiology: I have reviewed the radiologist's reading. Critical Care Time Critical Care Time Critical Care Time: Yes Total Critical Care Time: 60 Attestation: The patient was critically ill with a high probability of imminent or life-threatening deterioration. I spent greater than 30 minutes of discontinuous time evaluating the patient, delivering critical care at the bedside, discussing evaluating data with consultants. Critical care time does not include time spent performing separately billable procedures or teaching. Time spent performing critical care was 60 minutes. Discharge Plan Discharge Clinical Impression: Chest pain, CHF (congestive heart failure) Patient Disposition: Admitted As Inpatient Print Language: Irish
[2024-10-12 13:00] LABS: MANUAL DIFF FLAG NO
[2024-10-12 13:01] LABS: Basophils Percent Auto 0.4 % (0-2); Eosinophils Absolute Auto 0.1 X10*3/uL (0.0-0.4); Eosinophils Percent Auto 1.5 % (0-4); Hematocrit 26.3 % (37.0-47.0); Hemoglobin 9.1 g/dl (12.0-16.0); Imm Gran Abs Auto 0.03 X10*3/uL (0.00-0.03); Imm Gran Pct Auto 0.4 % (0.0-0.4); Lymphocytes Absolute Auto 1.2 X10*3/uL (1.2-4.9); Lymphocytes Percent Auto 15.9 % (20-40); Mean Corpuscular HGB Conc 34.6 g/dl (31.0-35.0); Mean Corpuscular Hemoglobin 35.3 pg (27.0-33.0); Mean Corpuscular Volume 101.9 fL (80.0-98.0); Mean Platelet Volume 9.1 fL (9.4-12.3); Monocytes Absolute Auto 0.7 X10*3/uL (0.1-1.2); Monocytes Percent Auto 9.6 % (2-11); Neutrophils Absolute Auto 5.3 x10*3/uL (2.0-8.3); Neutrophils Percent Auto 72.2 % (45-73); Platelet Count 169 X10*3/uL (160-400); Red Blood Count 2.58 X10*6/uL (4.20-5.50); Red Cell Distribution Width 17.8 % (11.0-16.0); White Blood Count 7.4 X10*3/uL (4.8-10.8)
[2024-10-12 13:15] LABS: Alanine Aminotransferase 11 U/L (0-31); Albumin Level 4.1 g/dL (3.5-5.0); Alkaline Phosphatase 61 U/L (39-117); Anion Gap 15 (12-20); Aspartate Amino Transferase 16 U/L (5-31); Bilirubin Direct 0.2 mg/dL (0.0-0.5); Bilirubin Total 0.7 mg/dL (0.0-1.0); Blood Urea Nitrogen 24 mg/dL (9-16); Carbon Dioxide 23 mmol/L (22-29); Chloride 109 mmol/L (96-108); Creatinine Clr Calc Pharmacy 21.3; Estimated Glomerular Filt Rate 28; Glucose Random 115 mg/dL (60-115); Magnesium 2.2 mg/dL (1.6-2.6); Potassium 3.7 mmol/L (3.3-5.1); Sodium 143 mmol/L (135-145)
[2024-10-12 13:20] LABS: B Type Natriuretic Peptide 2629 pg/mL (<100)
[2024-10-12 13:22] LABS: Troponin-I High Sensitivity 24.9 ng/L (<3.5-17.0)
[2024-10-12 13:39] LABS: Influenza A PCR NEGATIVE (Negative); Influenza B PCR NEGATIVE (Negative); Resp Syncy Virus RNA Qual PCR NEGATIVE (Negative); SARS COV2 PCR INHOUSE NEGATIVE (Negative)
[2024-10-12] MEDS: Aspirin Enteric Coated 325 MG TABLET.DR PO (15:04)
[2024-10-12] MEDS: Bumetanide 1 MG/4 ML VIAL IVPUSH (15:04)
--- OUTSIDE RECORDS SUMMARY | 2024-10-12 16:06 | XMS_ITS | Encounter Summary ---
Author Organization [facility] Address [address] [place] [address] Care Team Providers Care Technical Buyer Name Role Phone John Avina DO Primary Care Provider [phone] Encounter Details Date Type Department Care Team (Late st Contact Info) Description 06/10/2024 Lab Requisition [facility] - Main Lab [address] [facility] [place] [address] Arianna Iraheta PA [address] [place], [place] [id number] Dysuria Social History Tobacco Use Types Packs/Day [...] ssp pneumoniae(A) RIC 06/12/2024 11:01 AM EST [facility] Comment: This is an edited [...] MICROBIOLOGY - GENERAL ORD ERABLES Final Result [facility] [address] [place] [address], documented in this encounter Visit Diagnoses Diagnosis Dysuria documented in this encounter Care Teams Technical Buyer Relationship Specialty Start Date End Date John Avina DO [address] [place] [id number] PCP - General Internal Medicine 06/10/24 documented as of this encounter
[2024-10-12 16:57] VITALS: BP 148/83; PULSE 75; RESP 20; TEMP 36.5; O2SAT 95
[2024-10-12 17:09] LABS: Troponin-I High Sensitivity 36.3 ng/L (<3.5-17.0)
[2024-10-12] MEDS: Enoxaparin Sodium 30 MG/0.3 ML SYRINGE SUBCUT (20:04)
--- NOTE | 2024-10-12 20:56 | PM.IMHP ---
History of Present Illness Date of Service: 10/12/24 Attending physician on admission: Andrés Beyer Chief Complaint: chest pain,shoulder pain Patient is a 79-year-old female currently living with her son with past medical history of hfRef 35-40% with no home O2, RECENT LEFT HIP FRACTURE WITH SURGERY AND REHAB, chronic kidney disease stage 3, multiple myeloma (per pt) underwent chemotherapy, chronic anemia with history of frequent transfusions, coronary artery disease, history of breast cancer with right lumpectomy, hyperlipidemia, osteoarthritis including impingement syndrome of left shoulder, hypertension, gout and vitamin-D deficiency presents to the emergency department after being driven in by her son with complaints of indigestion, chest pressure and left shoulder pain. Patient's symptoms started over the weekend and because patient has been in and out of the hospital often for previous issues, patient has severe reluctance about returning to the emergency department. Upon prompting from patient's son, patient agreed to be seen. BNP was found to be elevated. EKG with pre mature supraventricular complexes and frequent PVCs with nonspecific T-wave abnormality. Troponins 24.9 and 36.3. Magnesium 2.2. Upon clinical assessment patient states she is no longer having any chest pressure or indigestion. Patient did have a large BM this morning and denies any current diarrhea or abdominal pain. Patient denies any fever or chills or night sweats. Patient denies any travel or eating out recently. Patient also states that the chest pressure and chest sensation is resolved. Patient has no lower extremity edema. Chest x-ray noted for cardiomegaly with no acute cardiopulmonary abnormality otherwise. Patient is agreeable to admission but hopes to return home tomorrow. Patient understands that Cardiology is being consulted. Echocardiogram is also being resulted as last 1 was 03/2024 to ensure that patient's EF has not been reduced further. Patient did receive 1 mg of Bumex IV with good effect. Patient remains on telemetry. Patient was not aware that she has a history of impingement syndrome in the left shoulder, the current shoulder that is causing her some discomfort. Patient does have full range of motion both actively and passively. There is no click or abnormal sounds with passive range of motion. Patient advised to follow with Orthopedics via referral from PCP as an outpatient. Tylenol PRN. Review of Systems Review of Systems: Patient currently denies any chest pain, chest pressure, left shoulder pain or abdominal pain. Patient is not having any shortness of breath and is not currently on oxygen and does not use oxygen at home. Patient states her indigestion has resolved. Patient denies any diarrhea or constipation issues. Yes all other systems are reviewed and are negative [facility] Medical History Closed left hip fracture CAD (coronary artery disease) CHF (congestive heart failure) Cervix prolapsed into vagina History of blood transfusion (~02/01/23) Diabetes mellitus HFrEF (heart failure with reduced ejection fraction) Cardiomyopathy Normal colonoscopy Type 2 diabetes mellitus Diverticulosis Irritable bowel syndrome Pulmonary emboli GERD (gastroesophageal reflux disease) Nephrolithiasis Hypoparathyroidism Papillary thyroid carcinoma HTN (hypertension) Polymyalgia rheumatica Hyperglycemia Chronic anemia Anemia Cognitive capacity: Alert and orientated x3 Functional capacity: independent ambulation Patient : No Family History Sister CHF (congestive heart failure) Daughter Breast cancer Son Kidney stones Surgical History Status post hip surgery (~08/04/23) History of colonoscopy (~07/30/18) Stented coronary artery Breast mass, right H/O endoscopy History of cholecystectomy H/O total thyroidectomy Social History Household Members: Family Household Members Other:: son Housing: House Do you presently have visiting nurse or other home services: No Alcohol intake: never Comment: Pt refuses fall risk protocol/ precautions- ambulates with steady gait Patient Tobacco Use Status: Never used Tobacco Years Smoked: 30 +/- Smoked in Last 30 Days: No e-Cigarette/Vaping Use: Never Used Second Hand Smoke Exposure: No Use of substances other than those prescribed or required for medical reasons: No Advance Directives: Yes Advance Directives on File: Yes Advance Directives Date on File: 06/27/24 Patient : No service: No Current occupational status: retired Current occupation: Right Handed Cognitive needs: Yes (cane) Hearing needs: No Vision needs: Yes (reading glasses) Ebola Risk: Travel/Contact With Anyone From Affected Area/s: No Has Patient Experienced Ebola Symptoms: No Meds Allergies Allergy/AdvReac Type Severity Reaction Status Date / Time esomeprazole (From NEXIUM) Allergy Intermediate CHEST PAIN Verified 10/12/24 12:03 omeprazole (From PRILOSEC) Allergy Intermediate CHEST PAIN Verified 10/12/24 12:03 diphenhydramine (From Allergy Dizziness Verified 10/12/24 12:03 Benadryl) Active Medications: Current Medications Acetaminophen (Acetaminophen 325 Mg Tablet) 650 mg PO Q6H PRN PRN Reason: Pain, Mild 1-3,fever,headache Calcium Carbonate (Calcium Carbonate 750 Mg Tab.Chew) 750 mg PO Q4H PRN PRN Reason: Heartburn Enoxaparin Sodium (Enoxaparin Sodium 30 Mg/0.3 Ml Syringe) 30 mg SUBCUT Q24H [facility] Last Admin: 10/12/24 20:04 Dose: 30 mg Magnesium Hydroxide (Milk Of Magnesia 30 Ml Oral.Susp) 30 ml PO DAILY PRN PRN Reason: Constipation Melatonin (Melatonin 3 Mg Tablet) 6 mg PO BEDTIME PRN PRN Reason: Insomnia Ondansetron HCl (Ondansetron Hcl 4 Mg/2 Ml Vial) 4 mg IVPUSH Q8H PRN PRN Reason: Nausea and Vomiting Polyethylene Glycol (Polyethylene Glycol 3350 17 Gm Powd.Pack) 17 gm PO DAILY PRN PRN Reason: Constipation Sodium Chloride (0.9 % Sodium Chloride Flush 3 Ml Syringe) 3 ml IVFLUSH QSHIFT [facility] Home Medications ?Medication ?Instructions ?Recorded ?Confirmed ?Last Taken ?Type cholecalciferol (vitamin D3) 50 50 mcg PO DAILY 02/29/20 10/12/24 10/11/24 History mcg (2,000 unit) tablet (Vitamin D3) cyanocobalamin (vitamin B-12) 5,000 mcg PO DAILY 02/29/20 10/12/24 10/11/24 History 5,000 mcg disintegrating tablet folic acid 1 mg tablet 1 mg PO DAILY 02/29/20 10/12/24 10/11/24 History cranberry 500 mg capsule 500 mg PO DAILY 11/20/22 10/12/24 10/11/24 History ascorbic acid (vitamin C) 500 mg 500 mg PO DAILY 09/23/23 10/12/24 10/11/24 History tablet (Vitamin C) biotin 1 mg tablet 1 mg PO DAILY 06/26/24 10/12/24 10/11/24 History calcium carbonate (Calcium 600) 600 mg PO DAILY 06/26/24 10/12/24 10/11/24 History exemestane 25 mg tablet 25 mg PO DAILY 06/26/24 10/12/24 10/11/24 History hydralazine 25 mg tablet 25 mg PO BEDTIME 06/26/24 10/12/24 10/11/24 History vitamin E (dl, acetate) 450 mg 450 mg PO DAILY 06/26/24 10/12/24 10/11/24 History (1,000 unit) capsule Physical Exam Vital Signs and Narrative: Vital Signs: Last Vital Signs Temp 97.7 F 10/12/24 16:57 Pulse 75 10/12/24 16:57 Resp 20 10/12/24 16:57 BP 148/83 H 10/12/24 16:57 Pulse Ox 95 10/12/24 16:57 O2 Del Method Room Air 10/12/24 16:57 BMI result Body Mass Index 23.9 Alert and orientated X3, able to give good history. Neuro: CN II-X11 intact, no deficits, visual acuity intact EYES: PERRLA, EOM intact, sclerae nonicteric ENT: hearing intact, no issues with swallowing, uvula midline, lips moist, nares patent no epistaxis Cardiac: S1 S2 RRR, no murmur, no JVD, no edema in Lower ext Pulmonary: lungs diminished bilaterally Abdominal: BS active in all 4 quadrants, no guarding, tenderness, rebounding MSK: strength 5/5 upper and lower extremities, patient does have full range of motion left lower extremity from previous hip replacement and is able to bear weight : no CVA tenderness no bladder distension Extremities: no edema in lower extremities, PT and DP pulses palpable +2 Psych: mood stable, judgement and insight good Skin: Intact Results Labs 10/12/24 12:53 10/12/24 12:53 Labs: Laboratory Results - last 24 hr 10/12/24 10/12/24 12:53 16:42 MCV 101.9 H D MCH 35.3 H MCHC 34.6 RDW 17.8 H Plt Count 169 MPV 9.1 L Immature Gran % (Auto) 0.4 Neut % (Auto) 72.2 Lymph % (Auto) 15.9 L [place] % (Auto) 9.6 Eos % (Auto) 1.5 Baso % (Auto) 0.4 Lymph # (Auto) 1.2 [place] # (Auto) 0.7 Eos # (Auto) 0.1 Baso # (Auto) 0.0 Abs Immat Gran (auto) 0.03 Absolute Neuts (auto) 5.3 Absolute Nucleated RBC 0.000 Nucleated RBC % (auto) 0.0 Anion Gap 15 Estim Creat Clear Calc 21.3 Estimated GFR 28 Random Glucose 115 Calcium 9.0 D Magnesium 2.2 Total Bilirubin 0.7 Direct Bilirubin 0.2 AST 16 ALT 11 Alkaline Phosphatase 61 Troponin I High Sens 24.9 H D 36.3 H B-Natriuretic Peptide 2629 H Total Protein 7.0 Albumin 4.1 Influenza Type A (PCR) NEGATIVE Influenza Type B (PCR) NEGATIVE RSV RNA Qual (PCR) NEGATIVE SARS-CoV-2 RNA (RT-PCR) NEGATIVE ECG Attestation: I personally reviewed and interpreted this ECG as follows: (Sinus rhythm with PVCs QTC 470) Prior ECG tracings: available for review Imaging Radiologist's Impressions: Impressions Chest X-Ray 10/12/24 12:20 IMPRESSION: Cardiomegaly. No acute cardiopulmonary abnormality. Electronically signed by: John Pollock MD 10/12/2024 12:44 PM EDT RP Assessment and Plan (1) Chest pain: Qualifiers: Chest pain type: other chest pain Qualified Code(s): R07.89 - Other chest pain Status: Acute (2) HFrEF (heart failure with reduced ejection fraction): Status: Acute Plan Patient is a 79-year-old female currently living with her son with past medical history of hfRef 35-40% with no home O2, RECENT LEFT HIP FRACTURE WITH SURGERY AND REHAB, chronic kidney disease stage 3, multiple myeloma (per pt) underwent chemotherapy, chronic anemia with history of frequent transfusions, coronary artery disease, history of breast cancer with right lumpectomy, hyperlipidemia, osteoarthritis including impingement syndrome of left shoulder, hypertension, gout and vitamin-D deficiency is being admitted with evidence of exacerbation of heart failure. Patient currently on room air with no evidence of hypoxia. CHF exacerbation, HFrEF -Cardiology consulted -Elevated troponin likely secondary to ischemic demand, trending down -EKG negative for ischemic changes -Fluid restriction 1500 -Measure intake and output -Daily weights -Echo reordered, last echo 03/2024 -Bumex IV affected -Continue Coreg, p.o. Bumex once med rec completed Indigestion -Currently resolved -Milk of Mag p.r.n. 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 -Continue levothyroxine -Checking TSH, free T4 Chronic anemia with myelodysplastic syndrome -H&H currently stable -No indication for transfusion Hyperlipidemia -Continue statin Chronic kidney disease stage IIIA -Renal function at baseline, no indication for TED -Avoid hypotension -Avoid nephrotoxic medications -Checking UA with reflex -BMP in AM DVT prophylaxis: Lovenox Ppi prophylaxis: Omeprazole Med rec pending Full Code status Quality Stroke Does the patient have a stroke diagnosis?: No Reason for No Anti-thrombotic by Day Two: N/A - Med Ordered VTE Prior VTE?: No VTE Risk Level:: Medical - moderate - high VTE Device Contraindication: Treatment Not Indicated VTE Drug Contraindication: N/A - Med Ordered
--- NOTE | 2024-10-12 21:07 | PHA.MEDREC ---
Pharmacy Consult ? Medication Reconciliation Pharmacy has completed the medication reconciliation. Spoke to patient to confirm medication list. Patient has a written list of medications that she takes (fills rx at [facility]). Per patient, she does not take anything for diabetes nor diarrhea anymore. She does NOT take levothyroxine on Saturday nor Saturday. Last dose of medications was yesterday 10/11/24.
[2024-10-12 22:03] LABS: Free T4 (Free Thyroxine) 1.07 ng/dL (0.71-1.85); Thyroid Stimulating Hormone 21.13 uIU/mL (0.32-4.0)
[2024-10-12 23:14] VITALS: BP 141/66; PULSE 72; RESP 19; TEMP 36.6; O2SAT 97
[2024-10-13 04:18] LABS: Hematocrit 24.4 % (37.0-47.0); Hemoglobin 8.3 g/dl (12.0-16.0); Mean Corpuscular Hemoglobin 34.7 pg (27.0-33.0); Mean Corpuscular Volume 102.1 fL (80.0-98.0); Mean Platelet Volume 9.5 fL (9.4-12.3); Platelet Count 146 X10*3/uL (160-400); Red Blood Count 2.39 X10*6/uL (4.20-5.50); Red Cell Distribution Width 17.6 % (11.0-16.0); White Blood Count 6.3 X10*3/uL (4.8-10.8)
[2024-10-13] MEDS: 0.9 % Sodium Chloride Flush 3 ML SYRINGE IVFLUSH ×2 (04:28→07:24)
[2024-10-13 04:33] LABS: Alanine Aminotransferase 7 U/L (0-31); Albumin Level 3.5 g/dL (3.5-5.0); Alkaline Phosphatase 54 U/L (39-117); Anion Gap 14 (12-20); Aspartate Amino Transferase 13 U/L (5-31); Bilirubin Total 0.5 mg/dL (0.0-1.0); Blood Urea Nitrogen 29 mg/dL (9-16); Calcium 8.7 mg/dL (8.4-10.2); Carbon Dioxide 25 mmol/L (22-29); Chloride 109 mmol/L (96-108); Creatinine Clr Calc Pharmacy 20.8; Estimated Glomerular Filt Rate 27; Glucose Random 81 mg/dL (60-115); Potassium 3.6 mmol/L (3.3-5.1); Sodium 144 mmol/L (135-145); Total Protein 6.2 g/dL (6.5-8.0)
[2024-10-13 05:44] VITALS: BP 116/65; PULSE 60; RESP 12; TEMP 36.6; O2SAT 99
[2024-10-13] MEDS: Omeprazole 20 MG CAPSULE.DR PO (05:50)
--- NOTE | 2024-10-13 06:24 | PC.NURSE ---
Pt medicated per MAR.
--- NOTE | 2024-10-13 07:39 | PC.NURSE ---
patient a&ox3, oob with stby assist to commode, pt normally ambulates with wheeled walker at baseline, rr equal/non labored- lungs diminished throughout speaking in full sentences, pt angry because she has been admitted and feels she is just taking up space wanting to discharge back home as she now feels 100% better. Notified Dr. Lafleur of patients wishes, he will come evaluate the patient later this morning. binitrotoluene operator intact, call cuenca within reach, plan of care ongoing
--- NOTE | 2024-10-13 08:17 | PC.NURSE ---
floor nurse came to do the patients admission, pt refusing to do admissions with her.
--- NOTE | 2024-10-13 08:49 | HO.PM.IMPN ---
Subjective Subjective Date of Service: 10/13/24 Interval History: chf Physical Exam Vital Signs: Vital Signs: Last Vital Signs Temp 97.8 F 10/13/24 05:44 Pulse 60 10/13/24 05:44 Resp 12 10/13/24 05:44 BP 116/65 10/13/24 05:44 Pulse Ox 99 10/13/24 05:44 O2 Del Method Nasal Cannula 10/13/24 05:44 O2 Flow Rate 2 10/13/24 05:44 BMI result Body Mass Index 23.9 Objective Data Active Medications Acetaminophen (Acetaminophen 325 Mg Tablet) 650 mg PO Q6H PRN PRN Reason: Pain, Mild 1-3,fever,headache Calcium Carbonate (Calcium Carbonate 750 Mg Tab.Chew) 750 mg PO Q4H PRN PRN Reason: Heartburn Enoxaparin Sodium (Enoxaparin Sodium 30 Mg/0.3 Ml Syringe) 30 mg SUBCUT Q24H [facility] Last Admin: 10/12/24 20:04 Dose: 30 mg Documented By: AMY Magnesium Hydroxide (Milk Of Magnesia 30 Ml Oral.Susp) 30 ml PO DAILY PRN PRN Reason: Constipation Melatonin (Melatonin 3 Mg Tablet) 6 mg PO BEDTIME PRN PRN Reason: Insomnia Omeprazole (Omeprazole 20 Mg Capsule.Dr) 20 mg PO DAILY@0630 [facility] Last Admin: 10/13/24 05:50 Dose: 20 mg Documented By: SHARAD Ondansetron HCl (Ondansetron Hcl 4 Mg/2 Ml Vial) 4 mg IVPUSH Q8H PRN PRN Reason: Nausea and Vomiting Polyethylene Glycol (Polyethylene Glycol 3350 17 Gm Powd.Pack) 17 gm PO DAILY PRN PRN Reason: Constipation Sodium Chloride (0.9 % Sodium Chloride Flush 3 Ml Syringe) 3 ml IVFLUSH QSHIFT [facility] Last Admin: 10/13/24 07:24 Dose: 3 ml Documented By: HEATHER Labs 10/13/24 04:12 10/13/24 04:12 Labs: Laboratory Results - last 24 hr 10/12/24 10/12/24 10/13/24 12:53 16:42 04:12 MCV 101.9 H D 102.1 H MCH 35.3 H 34.7 H MCHC 34.6 34.0 RDW 17.8 H 17.6 H Plt Count 169 146 L MPV 9.1 L 9.5 Immature Gran % (Auto) 0.4 Neut % (Auto) 72.2 Lymph % (Auto) 15.9 L [place] % (Auto) 9.6 Eos % (Auto) 1.5 Baso % (Auto) 0.4 Lymph # (Auto) 1.2 [place] # (Auto) 0.7 Eos # (Auto) 0.1 Baso # (Auto) 0.0 Abs Immat Gran (auto) 0.03 Absolute Neuts (auto) 5.3 Absolute Nucleated RBC 0.000 0.000 Nucleated RBC % (auto) 0.0 0.0 Anion Gap 15 14 Estim Creat Clear Calc 21.3 20.8 Estimated GFR 28 27 Random Glucose 115 81 Calcium 9.0 D 8.7 Magnesium 2.2 Total Bilirubin 0.7 0.5 Direct Bilirubin 0.2 AST 16 13 ALT 11 7 Alkaline Phosphatase 61 54 Troponin I High Sens 24.9 H D 36.3 H B-Natriuretic Peptide 2629 H Total Protein 7.0 6.2 L Albumin 4.1 3.5 TSH 21.13 H Free T4 1.07 Influenza Type A (PCR) NEGATIVE Influenza Type B (PCR) NEGATIVE RSV RNA Qual (PCR) NEGATIVE SARS-CoV-2 RNA (RT-PCR) NEGATIVE Assessment and Plan Plan 79-year-old female currently living with her son with past medical history of hfRef 35-40% with no home O2, RECENT LEFT HIP FRACTURE WITH SURGERY AND REHAB, chronic kidney disease stage 3, multiple myeloma (per pt) underwent chemotherapy, chronic anemia with history of frequent transfusions, coronary artery disease, history of breast cancer with right lumpectomy, hyperlipidemia, osteoarthritis including impingement syndrome of left shoulder, hypertension, gout and vitamin-D deficiency is being admitted with evidence of exacerbation of heart failure. Patient currently on room air with no evidence of hypoxia. CHF exacerbation, HFrEF -Cardiology consulted -Elevated troponin likely secondary to ischemic demand, trending down -EKG negative for ischemic changes -Fluid restriction 1500 -Measure intake and output -Daily weights -Echo reordered, last echo 03/2024 -Bumex IV affected -Continue Coreg, p.o. Bumex once med rec completed Indigestion -Currently resolved -Milk of Mag p.r.n. 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 -Continue levothyroxine -Checking TSH, free T4 Chronic anemia with myelodysplastic syndrome -H&H currently stable -No indication for transfusion Hyperlipidemia -Continue statin Chronic kidney disease stage IIIA -Renal function at baseline, no indication for TED -Avoid hypotension -Avoid nephrotoxic medications -Checking UA with reflex -BMP in AM DVT prophylaxis: Lovenox Ppi prophylaxis: Omeprazole Quality Stroke Does the patient have a stroke diagnosis?: No Reason for No Anti-thrombotic by Day Two: N/A - Med Ordered VTE Prior VTE?: No VTE Risk Level:: Medical - moderate - high VTE Device Contraindication: Treatment Not Indicated VTE Drug Contraindication: N/A - Med Ordered
--- NOTE | 2024-10-13 09:27 | P.CONCA_ITS ---
History of Present Illness History of Present Illness Date of Service: 10/13/24 Chief complaint: CHF Narrative: This is a cardiology consultation regarding question of congestive heart failure. She has generally seen by Lia Doshi and Dr. Comer in our clinic. She was seen within the last few days actually. Per notes, she has got a history of cardiomyopathy/congestive heart failure, coronary artery disease, hypertension, anemia among others. Apparently, she had a hip fracture and she was at [facility] and then she got discharged to rehab and then she is finally home for the last couple of weeks. She has been admitted as congestive heart failure. However, on evaluation of symptoms, somewhat atypical. Per ER physician, she apparently had mentioned about shortness of breath, leg swelling and left-sided chest pain. However, to me she is somewhat vague and she states she rather just had shoulder pain than any shortness of breath. Any case, she was admitted as heart failure and got Bumex. Currently, she states she is feeling much better. She is insisting that she wants to get discharged now. She denies any clear-cut anginal-type symptoms. Review of Systems 2 Review of Systems: Yes all other systems are reviewed and are negative Constitutional: Constitutional: Reports as per HPI and Reports no additional constitutional complaints Eyes: Eyes: Reports as per HPI and Denies no additional eye complaints ENT: Denies system reviewed and no additional complaints, except as documented and Reports as per HPI Cardiovascular: Cardiovascular: Reports as per HPI, Reports no additional cardiovascular complaints, Denies acrocyanosis, Denies cool extremities, Denies chest pain, Denies leg edema, Denies lightheadedness, Denies palpitations and Reports dyspnea Respiratory: Respiratory: Reports as per HPI, Denies no additional respiratory complaints and Reports dyspnea Gastrointestinal: Gastrointestinal: Reports as per HPI and Denies no additional gastrointestinal complaints Genitourinary: Genitourinary: Reports as per HPI Musculoskeletal: Musculoskeletal: Reports no additional musculoskeletal complaints and Reports as per HPI Integumentary/Breasts: Skin/Breast: Reports system reviewed and no additional complaints, except as docu Neurologic: Reports system reviewed and no additional complaints, except as documented and Reports as per HPI Psychiatric: Psychiatric: Reports no additional psychiatric complaints and Reports as per HPI Endocrine: Endocrine: Reports no additional endocrine complaints, Reports as per HPI and Denies palpitations Hematologic/Lymphatic: Hematologic/Lymphatic: Reports no additional hematologic/lymphatic complaints and Reports as per HPI Allergic/Immunologic: Allergic/Immunologic: Reports no additional allergic/immunologic complaints and Reports as per HPI [facility] Past Medical History Medical History Closed left hip fracture CAD (coronary artery disease) CHF (congestive heart failure) Cervix prolapsed into vagina History of blood transfusion (~02/01/23) Diabetes mellitus HFrEF (heart failure with reduced ejection fraction) Cardiomyopathy Normal colonoscopy Type 2 diabetes mellitus Diverticulosis Irritable bowel syndrome Pulmonary emboli GERD (gastroesophageal reflux disease) Nephrolithiasis Hypoparathyroidism Papillary thyroid carcinoma HTN (hypertension) Polymyalgia rheumatica Hyperglycemia Chronic anemia Anemia Family History Family History Sister CHF (congestive heart failure) Daughter Breast cancer Son Kidney stones Surgical History Surgical History Status post hip surgery (~08/04/23) History of colonoscopy (~07/30/18) Stented coronary artery Breast mass, right H/O endoscopy History of cholecystectomy H/O total thyroidectomy Social History Social History Household Members: Family Household Members Other:: son Housing: House Do you presently have visiting nurse or other home services: No Alcohol intake: never Comment: Pt refuses fall risk protocol/ precautions- ambulates with steady gait Patient Tobacco Use Status: Never used Tobacco Years Smoked: 30 +/- Smoked in Last 30 Days: No e-Cigarette/Vaping Use: Never Used Second Hand Smoke Exposure: No Use of substances other than those prescribed or required for medical reasons: No Advance Directives: Yes Advance Directives on File: Yes Advance Directives Date on File: 06/27/24 Nutrition Risks: No Nutritional Risk Patient : No service: No Current occupational status: retired Current occupation: Right Handed Cognitive needs: Yes (cane) Hearing needs: No Vision needs: Yes (reading glasses) Travel History Ebola Risk: Travel/Contact With Anyone From Affected Area/s: No Has Patient Experienced Ebola Symptoms: No Meds Allergies Allergy/AdvReac Type Severity Reaction Status Date / Time esomeprazole (From NEXIUM) Allergy Intermediate CHEST PAIN Verified 10/12/24 12:03 omeprazole (From PRILOSEC) Allergy Intermediate CHEST PAIN Verified 10/12/24 12:03 diphenhydramine (From Allergy Dizziness Verified 10/12/24 12:03 Benadryl) Active Medications: Current Medications Acetaminophen (Acetaminophen 325 Mg Tablet) 650 mg PO Q6H PRN PRN Reason: Pain, Mild 1-3,fever,headache Allopurinol (Allopurinol 300 Mg Tablet) 300 mg PO DAILY [facility] Ascorbic Acid (Ascorbic Acid 500 Mg Tablet) 500 mg PO DAILY [facility] Atorvastatin Calcium (Atorvastatin Calcium 40 Mg Tablet) 40 mg PO DAILY [facility] Calcium Carbonate (Calcium Carbonate 750 Mg Tab.Chew) 750 mg PO Q4H PRN PRN Reason: Heartburn Calcium Carbonate (Calcium Carbonate 750 Mg Tab.Chew) 750 mg PO DAILY [facility] Carvedilol (Carvedilol 6.25 Mg Tablet) 6.25 mg PO BID [facility]; Protocol Clopidogrel Bisulfate (Clopidogrel Bisulfate 75 Mg Tablet) 75 mg PO DAILY [facility] Cyanocobalamin (Cyanocobalamin (Vitamin B-12) 1,000 Mcg Tablet) 5,000 mcg PO DAILY [facility] Enoxaparin Sodium (Enoxaparin Sodium 30 Mg/0.3 Ml Syringe) 30 mg SUBCUT Q24H [facility] Last Admin: 10/12/24 20:04 Dose: 30 mg Folic Acid (Folic Acid 1 Mg Tablet) 1 mg PO DAILY [facility] Hydralazine HCl (Hydralazine Hcl 25 Mg Tablet) 25 mg PO BEDTIME [facility]; Protocol Levothyroxine Sodium (Levothyroxine Sodium 100 Mcg Tablet) 100 mcg PO MOTUTHFRSA@0600 [facility] Magnesium Hydroxide (Milk Of Magnesia 30 Ml Oral.Susp) 30 ml PO DAILY PRN PRN Reason: Constipation Melatonin (Melatonin 3 Mg Tablet) 6 mg PO BEDTIME PRN PRN Reason: Insomnia Non-Formulary Medication (Exemestane) 25 mg PO DAILY [facility] Omeprazole (Omeprazole 20 Mg Capsule.Dr) 20 mg PO DAILY@0630 [facility] Last Admin: 10/13/24 05:50 Dose: 20 mg Ondansetron HCl (Ondansetron Hcl 4 Mg/2 Ml Vial) 4 mg IVPUSH Q8H PRN PRN Reason: Nausea and Vomiting Polyethylene Glycol (Polyethylene Glycol 3350 17 Gm Powd.Pack) 17 gm PO DAILY PRN PRN Reason: Constipation Sodium Chloride (0.9 % Sodium Chloride Flush 3 Ml Syringe) 3 ml IVFLUSH QSHIFT [facility] Last Admin: 10/13/24 07:24 Dose: 3 ml Vitamin D (Cholecalciferol (Vitamin D3) 25 Mcg Tablet) 50 mcg PO DAILY [facility] Vitamin E (Vitamin E (Dl,Tocopheryl Acet) 180 Mg (400 Unit) Capsule) 180 mg PO DAILY [facility] Home Medications ?Medication ?Instructions ?Recorded ?Confirmed ?Last Taken ?Type cholecalciferol (vitamin D3) 50 50 mcg PO DAILY 10/12/24 10/11/24 History mcg (2,000 unit) tablet (Vitamin D3) cyanocobalamin (vitamin B-12) 5,000 mcg PO DAILY 02/2810/12/24 10/11/24 History 5,000 mcg disintegrating tablet folic acid 1 mg tablet 1 mg PO DAILY 02/29/2010/1210/11/24 History cranberry 500 mg capsule 500 mg PO DAILY 11/20/2210/11/24 History ascorbic acid (vitamin C) 500 mg 500 mg PO DAILY 09/2210/12/24 10/11/24 History tablet (Vitamin C) biotin 1 mg tablet 1 mg PO DAILY 06/26/2410/1210/11/24 History calcium carbonate (Calcium 600) 600 mg PO DAILY 10/12/24 10/11/24 History exemestane 25 mg tablet 25 mg PO DAILY 06/26/2409/2110/11/24 History hydralazine 25 mg tablet 25 mg PO BEDTIME 06/26/2410/11/24 History vitamin E (dl, acetate) 450 mg 450 mg PO DAILY 5 10/12/24 10/11/24 History (1,000 unit) capsule Physical Exam 2 Vital Signs: Vital Signs: Last Vital Signs Temp 97.8 F 10/13/24 05:44 Pulse 60 10/13/24 05:44 Resp 12 10/13/24 05:44 BP 116/65 10/13/24 05:44 Pulse Ox 99 10/13/24 05:44 O2 Del Method Nasal Cannula 10/13/24 05:44 O2 Flow Rate 2 10/13/24 05:44 BMI result Body Mass Index 23.9 Const: General: comfortable and no acute distress O rientation/consciousness: patient oriented x3 HEENT: Other: Unremarkable Head: Yes normal to inspection Neck: Neck: Yes normal visual inspection Chest: Chest palpation & inspection: normal inspection of the chest Resp: Other: Minimal crackles at the bases Cardio: Palpation: normal PMI Heart sounds: S1 normal heart sound present, S2 normal heart sound present, no gallops, Murmur heart sound present systolic II/ and no rubs GI: Palpation (GI): Soft to palpation Back/Spine/Pelvis: Other: unremarkable Skin: General skin exam: no rashes or lesions noted Neuro: General: patient oriented x3 Extrem: General: Yes normal to inspection Psych: Mental Status: mental status grossly normal Objective Labs and Meds 10/13/24 04:12 10/13/24 04:12 Lab results: Laboratory Results - last 24 hr 10/12/24 10/12/24 10/13/24 12:53 16:42 04:12 WBC 7.4 6.3 RBC 2.58 L 2.39 L Hgb 9.1 L 8.3 L Hct 26.3 L 24.4 L MCV 101.9 H D 102.1 H MCH 35.3 H 34.7 H MCHC 34.6 34.0 RDW 17.8 H 17.6 H Plt Count 169 146 L MPV 9.1 L 9.5 Immature Gran % (Auto) 0.4 Neut % (Auto) 72.2 Lymph % (Auto) 15.9 L [place] % (Auto) 9.6 Eos % (Auto) 1.5 Baso % (Auto) 0.4 Lymph # (Auto) 1.2 [place] # (Auto) 0.7 Eos # (Auto) 0.1 Baso # (Auto) 0.0 Abs Immat Gran (auto) 0.03 Absolute Neuts (auto) 5.3 Absolute Nucleated RBC 0.000 0.000 Nucleated RBC % (auto) 0.0 0.0 Sodium 143 144 Potassium 3.7 3.6 Chloride 109 H 109 H Carbon Dioxide 23 25 Anion Gap 15 14 BUN 24 H 29 H Creatinine 1.77 H 1.81 H Estim Creat Clear Calc 21.3 20.8 Estimated GFR 28 27 Random Glucose 115 81 Calcium 9.0 D 8.7 Magnesium 2.2 Total Bilirubin 0.7 0.5 Direct Bilirubin 0.2 AST 16 13 ALT 11 7 Alkaline Phosphatase 61 54 Troponin I High Sens 24.9 H D 36.3 H B-Natriuretic Peptide 2629 H Total Protein 7.0 6.2 L Albumin 4.1 3.5 TSH 21.13 H Free T4 1.07 Influenza Type A (PCR) NEGATIVE Influenza Type B (PCR) NEGATIVE RSV RNA Qual (PCR) NEGATIVE SARS-CoV-2 RNA (RT-PCR) NEGATIVE ECG Interpretation: EKG with underlying sinus rhythm at 76/Min; premature ventricular complexes; minimal criteria for LVH; nonspecific ST-T changes. Imaging Radiologist's impression: Impressions Chest X-Ray 10/12/24 12:20 IMPRESSION: Cardiomegaly. No acute cardiopulmonary abnormality. Electronically signed by: John Pollock MD 10/12/2024 12:44 PM EDT RP Assessment and Plan (1) Acute on chronic combined systolic and diastolic CHF (congestive heart failure): Status: Acute (2) CAD (coronary artery disease): Status: Acute Plan Cardiac data reviewed. Echocardiogram from March shows LVEF of 35-40% with basal inferior/anterolateral akinesis. Moderate diastolic dysfunction. [id number] mitral regurgitation. Cardiac BNP is 2629. In June, it was 1299. She has been as low as 325 in the past. Creatinine is 1.8. BUN is 29. Close to her baseline. Low-grade troponin leaks. Abnormal TSH but normal T4. Overall, treat as acute on chronic congestive heart failure. Received IV Bumex and symptomatically much better. Home dose of Bumex listed as 2 mg daily. She can take an extra 1 mg dose as needed. Otherwise, possibly add Jardiance or Farxiga as an outpatient. Not clear if this was tried in the past. On Coreg. Due to CKD, not on KAMILA inhibitors or ARB or Entresto. With regard to CAD, status post GREG to RCA but she has some residual disease in the circumflex/LAD. No clear acute issues at this time. She is insisting on going home and hence follow-up can be arranged. Procedures Date of Service Date of Service: 10/13/24
[2024-10-13] MEDS: Folic Acid 1 MG TABLET PO (10:28)
[2024-10-13] MEDS: Cyanocobalamin (Vitamin B-12) 1,000 MCG TABLET 5000 MCG PO (10:28)
[2024-10-13] MEDS: Clopidogrel Bisulfate 75 MG TABLET PO (10:28)
[2024-10-13] MEDS: Ascorbic Acid 500 MG TABLET PO (10:28)
[2024-10-13 10:29] VITALS: BP 122/65; PULSE 71
[2024-10-13] MEDS: carvediloL 6.25 MG TABLET PO (10:29)
[2024-10-13] MEDS: Cholecalciferol (Vitamin D3) 25 MCG TABLET 50 MCG PO (10:30)
[2024-10-13] MEDS: allopurinoL 300 MG TABLET PO (10:30)
[2024-10-13] MEDS: Levothyroxine Sodium 100 MCG TABLET PO (10:30)
[2024-10-13 10:43] VITALS: BP 131/76
[2024-10-13] MEDS: Bumetanide 1 MG/4 ML VIAL IVPUSH (10:43)
--- NOTE | 2024-10-13 10:47 | MHC.CM.PN ---
CM met with Patient at bedside, in the ED, and addressed IMM with her, providing Patient with the original and a copy will be placed on the chart. Patient lives in a house with her Son, who will transport to home at time of dc. Patient has night time O2 from [employer] and home/resume said services is the goal. CM has initiated and will follow for dc planning. PCP is Dr. Dickinson and Daughter/Katy is the HCP.
--- NOTE | 2024-10-13 10:51 | PC.NURSE ---
pt medicated per order
--- NOTE | 2024-10-13 14:06 | MHC.CM.PN ---
Patient has been medically cleared for dc to home today, self care.
--- NOTE | 2024-10-13 14:10 | PM.DS ---
DS: Providers Provider Date of Service: 10/13/24 Date of admission: 10/12/24 18:06 Date of discharge: 10/13/24 Primary care physician: Paul Dickinson MD Consults: 10/12/24 18:54 Consult to Cardiology Routine Consulting Provider: [facility] Reason for consultation: heart failure Has provider been notified: No Attending physician on discharge: Francisco Javier Lafleur Discharging clinician: Francisco Javier Lafleur DS: Diagnosis Discharge Diagnosis (1) Acute on chronic combined systolic and diastolic CHF (congestive heart failure): Status: Acute (2) CAD (coronary artery disease): Status: Acute DS: Summary Hospital Course Hospital Course: HPI: 79-year-old female currently living with her son with past medical history of hfRef 35-40% with no home O2, RECENT LEFT HIP FRACTURE WITH SURGERY AND REHAB, chronic kidney disease stage 3, multiple myeloma (per pt) underwent chemotherapy, chronic anemia with history of frequent transfusions, coronary artery disease, history of breast cancer with right lumpectomy, hyperlipidemia, osteoarthritis including impingement syndrome of left shoulder, hypertension, gout and vitamin-D deficiency presents to the emergency department after being driven in by her son with complaints of indigestion, chest pressure and left shoulder pain. Patient's symptoms started over the weekend and because patient has been in and out of the hospital often for previous issues, patient has severe reluctance about returning to the emergency department. Upon prompting from patient's son, patient agreed to be seen. BNP was found to be elevated. EKG with pre mature supraventricular complexes and frequent PVCs with nonspecific T-wave abnormality. Troponins 24.9 and 36.3. Magnesium 2.2. Upon clinical assessment patient states she is no longer having any chest pressure or indigestion. Patient did have a large BM this morning and denies any current diarrhea or abdominal pain. Patient denies any fever or chills or night sweats. Patient denies any travel or eating out recently. Patient also states that the chest pressure and chest sensation is resolved. Patient has no lower extremity edema. Chest x-ray noted for cardiomegaly with no acute cardiopulmonary abnormality otherwise. Patient is agreeable to admission but hopes to return home tomorrow. Patient understands that Cardiology is being consulted. Echocardiogram is also being resulted as last 1 was 03/2024 to ensure that patient's EF has not been reduced further. Patient did receive 1 mg of Bumex IV with good effect. Patient remains on telemetry. Patient was not aware that she has a history of impingement syndrome in the left shoulder, the current shoulder that is causing her some discomfort. Patient does have full range of motion both actively and passively. There is no click or abnormal sounds with passive range of motion. Patient advised to follow with Orthopedics via referral from PCP as an outpatient. Tylenol PRN. Hospital course:79-year-old female currently living with her son with past medical history of hfRef 35-40% with no home O2, RECENT LEFT HIP FRACTURE WITH SURGERY AND REHAB, chronic kidney disease stage 3, multiple myeloma (per pt) underwent chemotherapy, chronic anemia with history of frequent transfusions, coronary artery disease, history of breast cancer with right lumpectomy, hyperlipidemia, osteoarthritis including impingement syndrome of left shoulder, hypertension, gout and vitamin-D deficiency is being admitted with evidence of exacerbation of heart failure. Patient currently on room air with no evidence of hypoxia. Patient was admitted for CHF exacerbation: Patient will be on IV Bumex, patient diuresed well as per patient, shortness of breaths improved to baseline. Currently asymptomatic no hypoxia. Discussed with the Cardiology currently recommended to adjust Bumex: Add 1 mg p.o. Bumex extra as needed outpatient. Monitor BMP and BnP outpatient. Hypothyroidism secondary to thyroidectomy due to thyroid cancer: elevated tsh,normal t4 :she says she takes her levothyroxine regularly : moniter tsh in 1week. Further management out patiently with PCP, cardiology may arrange their own appointment. Left shoulder pain-History of impingement syndrome, patient not aware of this diagnosis No abnormal findings indicating need for XRAY pain is much better with tylenol prn,moving her arm much better,even walked with walker. Recommend that patient has seek orthopedic consultation as an outpatient. Chronic anemia with myelodysplastic syndrome H&H currently stable Monitor CBC outpatient. Further management out patiently as per PCP. Plan: Extra Bumex 1 mg added as-needed basis-CHF education given-if gains weight 2 lb or more in a week or sob-will need outpatient extra bumex as ordered. moniter bmp and bnp . elevated tsh,normal t4 :she says she takes her levothyroxine regularly : moniter tsh in 1week. Further management out patiently with PCP, cardiology may arrange their own appointment. Above management discussed with the patient in detail length she understand and in agreement with the above plan, time spent 40 minute, all question answered. Nursing staff was present during conversation. Time Attestation Total time managing care of this patient today: 40 mintues. Discharge Coordination Time (in mins): 40 minute Quality: Safe Use of Opioids Does Pt have an Active Cancer Diagnosis on the Problem List?: No Quality: Stroke Does the patient have a stroke diagnosis?: No Physical Exam Vital Signs: Vital Signs: Last Vital Signs Temp 97.8 F 10/13/24 05:44 Pulse 71 10/13/24 10:29 Resp 12 10/13/24 05:44 BP 131/76 10/13/24 10:43 Pulse Ox 99 10/13/24 05:44 O2 Del Method Nasal Cannula 10/13/24 05:44 O2 Flow Rate 2 10/13/24 05:44 BMI result Body Mass Index 23.9 Appearance: Alert.? Oriented X3.? not in distress. cvs: rrr, [id number] . res: clear to auscultation ,no rales or wheezing abd: no rebound or guarding ,nt, bs present. ext pulses present , no cyanosis . neuro: axo3 , nonfocal. DS: Data Data Completed and Pending Completed studies during hospitalization [Text1]: Procedures Transfusion of Nonautologous Red Blood Cells into Peripheral Vein, Percutaneous Approach (06/29/24) Labs on day of discharge: Laboratory Results - last 24 hr 10/12/24 10/12/24 10/13/24 12:53 16:42 04:12 WBC 6.3 RBC 2.39 L Hgb 8.3 L Hct 24.4 L MCV 102.1 H MCH 34.7 H MCHC 34.0 RDW 17.6 H Plt Count 146 L MPV 9.5 Absolute Nucleated RBC 0.000 Nucleated RBC % (auto) 0.0 Sodium 144 Potassium 3.6 Chloride 109 H Carbon Dioxide 25 Anion Gap 14 BUN 29 H Creatinine 1.81 H Estim Creat Clear Calc 20.8 Estimated GFR 27 Random Glucose 81 Calcium 8.7 Total Bilirubin 0.5 AST 13 ALT 7 Alkaline Phosphatase 54 Troponin I High Sens 36.3 H Total Protein 6.2 L Albumin 3.5 TSH 21.13 H Free T4 1.07 Imaging Chest x-ray: Radiologist's impression: ITS Impressions Chest X-Ray 10/12/24 12:20 IMPRESSION: Cardiomegaly. No acute cardiopulmonary abnormality. Discharge Plan Discharge Anticipated Discharge Date/Time: 10/13/24 13:59 Patient Disposition: Home, Self-Care Discharge Diagnosis: chf exeerebation Referrals: Paul Dickinson MD [Primary Care Provider, Internal Medicine] - 1 Week Discharge Medications: New bumetanide 1 mg tablet 1 mg PO DAILY Qty: 30 0RF Rx Instructions: CHF education given-if gains weight 2 lb or more in a week or sob-will need outpatient bumex as above. Continued allopurinol 300 mg tablet 300 mg PO DAILY Qty: 90 1RF clopidogrel 75 mg tablet 75 mg PO DAILY 90 Days Qty: 90 1RF carvedilol 6.25 mg tablet 6.25 mg PO BID 90 Days Qty: 180 1RF folic acid 1 mg Tablet 1 mg PO DAILY cholecalciferol (vitamin D3) [Vitamin D3] 50 mcg (2,000 unit) Tablet 50 mcg PO DAILY cyanocobalamin (vitamin B-12) 5,000 mcg Tablet,Disintegrating 5,000 mcg PO DAILY ascorbic acid (vitamin C) [Vitamin C] 500 mg Tablet 500 mg PO DAILY calcium carbonate [Calcium 600] 600 mg calcium (1,500 mg) Tablet 600 mg PO DAILY exemestane 25 mg Tablet 25 mg PO DAILY Rx Instructions: must administer after a meal biotin 1 mg Tablet 1 mg PO DAILY vitamin E (dl, acetate) 450 mg (1,000 unit) Capsule 450 mg PO DAILY hydralazine 25 mg tablet 25 mg PO BEDTIME Protocol: Hold for SBP< HOLD for SBP < : 90 cranberry 500 mg capsule 500 mg PO DAILY Rx Instructions: administer with meals rosuvastatin 20 mg tablet 20 mg PO DAILY Qty: 90 3RF bumetanide 1 mg tablet 2 mg PO DAILY 90 Days Qty: 180 3RF Protocol: Hold for SBP< HOLD for SBP < : 90 Changed levothyroxine 100 mcg tablet 112 mcg PO MOTUTHFRSA@0600 90 Days Qty: 65 1RF Rx Instructions: skips sundays and wednesdays Discharge Orders: Discharge Order (Routine); Ordered 10/13/24 Ordered By: Francisco Javier Lafleur Diet: Advance to usual diet Activity on Discharge: As tolerated Stand Alone Forms: Patient Portal Discharge page Print Language: Martiniquais Other Ambulatory Orders: Basic Metabolic Panel (Routine) Timeframe: 1 Week Facility: [facility] - Location: Laboratory Ordered By: Francisco Javier Lafleur B Type Natriuretic Peptide (Routine) Timeframe: 1 Week Facility: [facility] - Location: Laboratory Ordered By: Francisco Javier Lafleur Complete Blood Count no Diff (Routine) Timeframe: 1 Week Facility: [facility] - Location: Laboratory Ordered By: Francisco Javier Lafleur Care Plan Goals: as below. Health Concerns: as below. Plan of Treatment: Extra Bumex 1 mg added as-needed basis-CHF education given-if gains weight 2 lb or more in a week or sob-will need outpatient extra bumex as ordered. elevated tsh,normal t4 :she says she takes her levothyroxine regularly : moniter tsh in 1week. Further management out patiently with PCP, cardiology may arrange their own appointment. Assessment: As above. Patient Instructions: Heart Failure (DC) Discharge Date/Time: 10/13/24 15:05
[2024-10-13 15:02] VITALS: BP 157/83; PULSE 82; RESP 18; TEMP 36.9; O2SAT 97
[2024-10-13 15:06] VITALS: BP 157/83; PULSE 82; RESP 18; TEMP 36.9; O2SAT 97
== END 2024-10-13 15:05 | disposition home or self-care (01) | DRG 291 ==
LOC: HO.ED 17:49 → HO.EDOVER 18:17
PROVIDERS: Nurse Practitioner Family; Physician Assistant Medical; Admitting Provider Internal Medicine; Emergency Provider Emergency Medicine; PCP Internal Medicine; Visit Provider Internal Medicine
DX: I13.0 Hypertensive heart and chronic kidney disease with heart failure and stage 1 through stage 4 chronic kidney disease, or unspecified chronic kidney disease (principal); I50.23 Acute on chronic systolic (congestive) heart failure; N18.31 Chronic kidney disease, stage 3a; E11.22 Type 2 diabetes mellitus with diabetic chronic kidney disease; E78.5 Hyperlipidemia, unspecified; I25.10 Atherosclerotic heart disease of native coronary artery without angina pectoris; E89.0 Postprocedural hypothyroidism; M75.42 Impingement syndrome of left shoulder; K30 Functional dyspepsia; D46.9 Myelodysplastic syndrome, unspecified; D63.0 Anemia in neoplastic disease; Z20.822 Contact with and (suspected) exposure to COVID-19; Z95.5 Presence of coronary angioplasty implant and graft; Z87.891 Personal history of nicotine dependence; Z85.850 Personal history of malignant neoplasm of thyroid; Z79.02 Long term (current) use of antithrombotics/antiplatelets; Z79.890 Hormone replacement therapy; Z79.899 Other long term (current) drug therapy
CPT/HCPCS: 0241U; 36415; 71046; 80048; 80053; 80076; 83735; 83880; 84439; 84443; 84484; 85025; 85027; 93005; 99285; J1650; J1939; Q9957

== ENCOUNTER → 2024-10-12 11:56 | Outpatient (BNV) | payer MEDICARE, SELFPAY | PROVIDERS: Admitting Provider Internal Medicine; Emergency Provider Emergency Medicine; PCP Internal Medicine; Visit Provider Internal Medicine | DX: I49.1 Atrial premature depolarization (principal); I49.3 Ventricular premature depolarization | CPT/HCPCS: 93010 ==

== ENCOUNTER → 2024-10-12 12:04 | Outpatient (BNV) | payer MEDICARE, SELFPAY | PROVIDERS: PCP Internal Medicine; Visit Provider Radiology Diagnostic Radiology | DX: R06.02 Shortness of breath (principal); R07.9 Chest pain, unspecified; I51.7 Cardiomegaly | CPT/HCPCS: 71046 ==

== ENCOUNTER → 2024-10-12 18:06 | Outpatient (BNV) | payer MEDICARE, SELFPAY | PROVIDERS: Admitting Provider Internal Medicine; Emergency Provider Emergency Medicine; PCP Internal Medicine; Visit Provider Internal Medicine | DX: I50.43 Acute on chronic combined systolic (congestive) and diastolic (congestive) heart failure (principal); I25.10 Atherosclerotic heart disease of native coronary artery without angina pectoris | CPT/HCPCS: 99223 ==

== ENCOUNTER → 2024-10-12 18:06 | Outpatient (BNV) | payer MEDICARE, SELFPAY | PROVIDERS: Admitting Provider Internal Medicine; Emergency Provider Emergency Medicine; PCP Internal Medicine; Visit Provider Nurse Practitioner Family | DX: I50.43 Acute on chronic combined systolic (congestive) and diastolic (congestive) heart failure (principal); I25.10 Atherosclerotic heart disease of native coronary artery without angina pectoris | CPT/HCPCS: 99223; 99239 ==

== ENCOUNTER 2024-10-22 12:26 | Outpatient (REF) | payer MEDICARE, SELFPAY ==
--- OUTSIDE RECORDS SUMMARY | 2024-10-22 12:43 | XMS_ITS | Encounter Summary ---
Author Organization [facility] Address [address] [place] [address] Care Team Providers Care Tavern Operator Name Role Phone John Avina DO Primary Care Provider [phone] Encounter Details Date Type Department Care Team (Late st Contact Info) Description 06/10/2024 Lab Requisition [facility] - Main Lab [address] [facility] [place] [address] Arianna Iraheta PA [address] [place], [place] [id number] Dysuria Social History Tobacco Use Types Packs/Day [...] ssp pneumoniae(A) RIC 06/12/2024 11:01 AM EST [facility] ([facility]) [facility] Comment: This is an [...] MICROBIOLOGY - GENERAL ORD ERABLES Final Result [facility] ([facility]) HOSPITAL LAB [address] [place] [address], documented in this encounter Visit Diagnoses Diagnosis Dysuria documented in this encounter Care Teams Tavern Operator Relationship Specialty Start Date End Date John Avina DO [address] [place] [id number] PCP - General Internal Medicine 06/10/24 documented as of this encounter
--- OUTSIDE RECORDS SUMMARY | 2024-10-22 12:43 | XMS_ITS | Clinical Summary ---
Author Organization [facility] Address [address] [place] [address] Phone Care Team Providers Care Computer Help Desk Representative Name Role Phone FabriceJohn solares Primary Care [...] tablet 2 (two) times a day Active folic acid (FOLVITE) 1 MG tablet [...] Encounters Date Type Department Care Team Description 09/15/2024 Orders Only [facility] [address] [place] [address] Mejia Soler MD Chronic kidney disease, stage 4 (severe) ([facility]) from Last 3 Months Social History Tobacco [...] Care Team (Late st Contact Info) Description 11/09/2024 3:30 PM EDT Office Visit [facility] [address] [place] [address] Mejia Soler MD [address] [facility] [address] [place] [address] Health Maintenance Due Date Last [...] patient's age to complete this topic Insurance Medicare [facility] Medicare [facility] Care Teams Computer Help Desk Representative Relationship Specialty Start Date End Date John Avina DO [address] [place] [address] PCP - General Internal Medicine 10/23/23
[2024-10-22 13:27] LABS: B Type Natriuretic Peptide 2165 pg/mL (<100)
[2024-10-22 16:20] LABS: Hematocrit 24.9 % (37.0-47.0); Hemoglobin 8.4 g/dl (12.0-16.0); Mean Corpuscular HGB Conc 33.7 g/dl (31.0-35.0); Mean Corpuscular Hemoglobin 35.3 pg (27.0-33.0); Mean Corpuscular Volume 104.6 fL (80.0-98.0); NRBC Abs Auto 0.000 X10*3/uL (0.0-0.012); NRBC Pct Auto 0.0 /100WBC (0.0-0.2); Platelet Count 199 X10*3/uL (160-400); Red Blood Count 2.38 X10*6/uL (4.20-5.50); White Blood Count 7.8 X10*3/uL (4.8-10.8)
[2024-10-22 16:33] LABS: Anion Gap 14 (12-20); Blood Urea Nitrogen 38 mg/dL (9-16); Calcium 9.2 mg/dL (8.4-10.2); Carbon Dioxide 30 mmol/L (22-29); Chloride 104 mmol/L (96-108); Estimated Glomerular Filt Rate 27; Potassium 3.4 mmol/L (3.3-5.1); Sodium 145 mmol/L (135-145)
--- OUTSIDE RECORDS SUMMARY | 2024-11-16 20:00 | XMS_ITS | Clinical Summary ---
Author Organization Unknown Care Team Providers Care Yoga Coordinator Name Role Phone KHARI ALVAREZ, ASHER Unavailable Unavailab ekaterina MARTINO RN, JONAH Unavailable Unavailable Payers Payer Name Policy Type Policy Number Effective Date Expira tion Date MEDICARE - NGS [place] - PD [id number] Problems Condition Name Condition Details Condition Category [...] 04-22 00:00: 00 ATHSCL HEART DISEASE OF [place] CORONARY ARTERY W/O ANG PCTRS Active 04-22 [...] OF DIGESTIVE TRACT Active 04-22 00:00: 00 CARTOONIST SPECIAL EFFECTS (CURRENT) USE OF ANTITHROMBOT ICS/ANTIPLAT ELETS Active [...] 06-25 00:00: 00 07-02 00:00 :00 No [id number] Per instruc tions Per instructio ns (route: oral) Med Classific ation: Cardiovas cular Therapy Agents hydralazine 25 mg tablet 2-28 00:00: 00 07-02 00:00 :00 No [id number] Per instruc tions Per instructio ns (route: oral) Med Classific ation: Cardiovas cular Therapy Agents allopurinol 300 mg tablet 07-02 00:00: 00 09-14 23:59 :00 No [id number] 1 tablet DAILY 1 tablet DAILY (route: oral) Med Classific ation: Gout and Hyperuric emia Therapy AZO D-Mannose 500 mg capsule 07-02 00:00: 00 09-14 23:59 :00 No [id number] 1 capsule DAILY 1 capsule DAILY (route: oral) Med Classific ation: Alternati ve Therapy bumetanide 1 mg tablet 07-02 00:00: 00 09-14 23:59 :00 No [id number] 1 tablet DAILY 1 tablet DAILY (route: oral) Med Classific ation: Cardiovas cular Therapy Agents Calcium 600 + D(3) 600 mg-10 mcg (400 unit) tablet 07-02 00:00: 00 09-14 23:59 :00 No [id number] 1 tablet DAILY 1 tablet DAILY (route: oral) Med Classific ation: Electroly te Balance-N utritiona l Products Coreg 6.25 mg tablet 07-02 00:00: 00 09-14 23:59 :00 No [id number] 1 tablet 2 TIMES DAILY 1 tablet 2 TIMES DAILY (route: oral) Med Classific ation: Cardiovas cular Therapy Agents cranberry 450 mg tablet 07-02 00:00: 00 09-14 23:59 :00 No [id number] 2 tablet DAILY 2 tablet DAILY (route: oral) Med Classific ation: Alternati ve Therapy dicyclomine 10 mg capsule 07-02 00:00: 00 07-13 23:59 :00 No [id number] 1 mg DAILY 1 mg DAILY (route: oral) Med Classific ation: Gastroint estinal Therapy Agents exemestane 25 mg tablet 07-02 00:00: 00 09-14 23:59 :00 No [id number] 1 tablet DAILY 1 tablet DAILY (route: oral) Med Classific ation: Antineopl astics folic acid 1 mg tablet 07-02 00:00: 00 09-14 23:59 :00 No [id number] 1 tablet DAILY 1 tablet DAILY (route: oral) Med Classific ation: Electroly te Balance-N utritiona l Products hydralazine 25 mg tablet 07-02 00:00: 00 09-14 23:59 :00 No [id number] 1 tablet 2 TIMES DAILY 1 tablet 2 TIMES DAILY (route: oral) Med Classific ation: Cardiovas cular Therapy Agents magnesium 250 mg (as magnesium oxide) tablet 07-02 00:00: 00 09-14 23:59 :00 No [id number] 1 tablet DAILY 1 tablet DAILY (route: oral) Med Classific ation: Electroly te Balance-N utritiona l Products mecobalamin (vitamin B12) 1,000 mcg chewable tablet 07-02 00:00: 00 09-14 23:59 :00 No [id number] 1 tablet DAILY 1 tablet DAILY (route: oral) Med Classific ation: Electroly te Balance-N utritiona l Products Plavix 75 mg tablet 07-02 00:00: 00 09-14 23:59 :00 No [id number] 1 tablet DAILY 1 tablet DAILY (route: oral) Med Classific ation: Hematolog ical Agents potassium gluconate 600 mg (99 mg) tablet 07-02 00:00: 00 09-14 23:59 :00 No [id number] 1 tablet DAILY 1 tablet DAILY (route: oral) Med Classific ation: Electroly te Balance-N utritiona l Products Synthroid 100 mcg tablet 07-02 00:00: 00 09-14 23:59 :00 No [id number] 1 tablet DAILY 1 tablet DAILY (route: oral) Med Classific ation: Endocrine Vitamin C 1,000 mg tablet 07-02 00:00: 00 09-14 23:59 :00 No [id number] 1 tablet DAILY 1 tablet DAILY (route: oral) Med Classific ation: Electroly te Balance-N utritiona l Products vitamin E (dl, acetate) 180 mg (400 unit) capsule 07-02 00:00: 00 09-14 23:59 :00 No [id number] 1 capsule DAILY 1 capsule DAILY (route: oral) Med Classific ation: Electroly te Balance-N utritiona l Products acetaminoph en 325 mg tablet 5-31 00:00: 00 Yes [id number] Per instruc tions NEEDED Per instructio ns NEEDED (route: oral) Med Classific ation: Analgesic , Anti-infl ammatory or Antipyret ic allopurinol 300 mg tablet 09-19 00:00: 00 Yes [id number] 1 tablet DAILY 1 tablet DAILY (route: oral) Med Classific ation: Gout and Hyperuric emia Therapy AZO D-Mannose 500 mg capsule 09-19 00:00: 00 Yes [id number] 1 capsule DAILY 1 capsule DAILY (route: oral) Med Classific ation: Alternati ve Therapy bumetanide 1 mg tablet 09-19 00:00: 00 Yes [id number] 2 tablet DAILY 2 tablet DAILY (route: oral) Med Classific ation: Cardiovas cular Therapy Agents carvedilol 6.25 mg tablet 09-19 00:00: 00 Yes [id number] 1 tablet 2 TIMES DAILY 1 tablet 2 TIMES DAILY (route: oral) Med Classific ation: Cardiovas cular Therapy Agents clopidogrel 75 mg tablet 09-19 00:00: 00 Yes [id number] 1 tablet DAILY 1 tablet DAILY (route: oral) Med Classific ation: Hematolog ical Agents cyanocobala min (vit B-12) 1,000 mcg tablet 09-19 00:00: 00 Yes [id number] 1 tablet DAILY 1 tablet DAILY (route: oral) Med Classific ation: Electroly te Balance-N utritiona l Products exemestane 25 mg tablet 09-19 00:00: 00 Yes [id number] 1 tablet DAILY 1 tablet DAILY (route: oral) Med Classific ation: Antineopl astics hydralazine 25 mg tablet 09-19 00:00: 00 Yes [id number] 1 tablet 2 TIMES DAILY 1 tablet 2 TIMES DAILY (route: oral) Med Classific ation: Cardiovas cular Therapy Agents levothyroxi ne 100 mcg tablet 09-19 00:00: 00 Yes [id number] 1 tablet DAILY 1 tablet DAILY (route: oral) Med Classific ation: Endocrine magnesium 250 mg (as magnesium oxide) tablet 09-19 00:00: 00 Yes [id number] 1 tablet DAILY 1 tablet DAILY (route: oral) Med Classific ation: Electroly te Balance-N utritiona l Products ondansetron 4 mg disintegrat ing tablet 09-19 00:00: 00 Yes [id number] 1 tablet O2 - PRN 1 tablet O2 - PRN (route: oral) Med Classific ation: Gastroint estinal Therapy Agents potassium gluconate 600 mg (99 mg) tablet 09-19 00:00: 00 Yes [id number] 1 tablet DAILY 1 tablet DAILY (route: oral) Med Classific ation: Electroly te Balance-N utritiona l Products Vitamin C 1,000 mg tablet 09-19 00:00: 00 Yes [id number] 1 tablet DAILY 1 tablet DAILY (route: oral) Med Classific ation: Electroly te Balance-N utritiona l Products Vitamin D3 25 mcg (1,000 unit) capsule 09-19 00:00: 00 Yes [id number] 1 capsule DAILY 1 capsule DAILY (route: oral) Med Classific ation: Electroly te Balance-N utritiona l Products Vital Signs Vital Name Observation Time Observation Value Commen ts Temperature 2024-10-20 11:20:00.000 98.3 [degF] Temperature 2024-10-12 11:02:00.000 96.5 [degF] Temperature 2024-10-06 17:18:00.000 97 [degF] Temperature 2024-10-05 11:29:00.000 96.9 [degF] Temperature 2024-10-01 11:04:00.000 96.9 [degF] Temperature 2024-09-29 11:49:00.000 97.5 [degF] Temperature 2024-09-25 10:58:00.000 97.9 [degF] Temperature 2024-09-23 09:46:00.000 96.7 [degF] Temperature 2024-09-22 10:29:00.000 98 [degF] Temperature 2024-09-19 11:07:00.000 97.8 [degF] BMI (%) 2024-09-19 11:07:00.000 23 kg/m2 Height 2024-09-19 11:07:00.000 61 [in_us] Pulse 2024-10-20 11:20:00.000 74 /min Pulse 2024-10-12 11:02:00.000 70 /min Pulse 2024-10-06 17:18:00.000 74 /min Pulse 2024-10-05 11:29:00.000 74 /min Pulse 2024-10-01 11:04:00.000 62 /min Pulse 2024-09-29 11:49:00.000 77 /min Pulse 2024-09-25 10:58:00.000 69 /min Pulse 2024-09-24 10:11:00.000 78 /min Pulse 2024-09-23 09:46:00.000 60 /min Pulse 2024-09-22 10:29:00.000 60 /min Pulse 2024-09-19 11:07:00.000 60 /min O2 Saturation (%) 2024-10-20 11:20:00.000 98 % [...] Saturation (%) 2024-09-19 11:07:00.000 97 % Respirations 2024-10-20 11:20:00.000 18 /min Respirations 2024-10-12 11:02:00.000 18 /min Respirations 2024-10-06 17:18:00.000 18 /min Respirations 2024-10-05 11:29:00.000 18 /min Respirations 2024-10-01 11:04:00.000 18 /min Respirations 2024-09-29 11:49:00.000 18 /min Respirations 2024-09-25 10:58:00.000 18 /min Respirations 2024-09-23 09:46:00.000 18 /min Respirations 2024-09-22 10:29:00.000 18 /min Respirations 2024-09-19 11:07:00.000 18 /min Weight (lbs) 2024-10-20 11:20:00.000 122.5 [lb_av] Weight (lbs) 2024-10-06 17:19:00.000 124 [lb_av] Weight (lbs) 2024-10-05 11:38:00.000 125 [lb_av] Weight (lbs) 2024-09-29 11:53:00.000 124 [lb_av] Weight (lbs) 2024-09-19 11:07:00.000 123 [lb_av] Systolic Blood Pressure 2024-10-20 11:20:00.000 120 mm [...] 11:07:00.000 126 mm [Hg] Diastolic Blood Pressure 2024-10-20 11:20:00.000 [...] FOR NEED FOR COMMUNITY RESOURCES [code = FACILITY SERVICE ASSOCIATE TO EVALUATE PATIENT FOR NEED FOR COMMUNITY [...] MAINTAIN SITUATIONAL AWARENESS AND WILL NOTIFY CLINICAL CONTROL SYSTEMS DESIGNER AND PHYSICIAN/PROVIDER WITH ANY CHANGE IN CONDITION. [code = SKILLED NURSE TO PERFORM ENVIRONMENTAL SAFETY RISK ASSESSMENT AND FALL RISK ASSESSMENT AND PROVIDE INSTRUCTION TO IMPLEMENT ENVIRONMENTAL SAFETY AND FALL PREVENTION STRATEGIES THROUGHOUT THE CERTIFICATION PERIOD. SKILLED NURSE WILL MAINTAIN SITUATIONAL AWARENESS AND WILL NOTIFY CLINICAL CONTROL SYSTEMS DESIGNER AND PHYSICIAN/PROVIDER WITH ANY CHANGE IN CONDITION.] [...] PHYSICAL THERAPY EVALUATION (09/23/24) PATIENT IS A [place] 78 YO FEMALE WITH PHYSICAL THERAPY REFERRAL AFTER HOSPITALIZATION AND SNF STAY (OSMEL BENAVIDEZ 08/11-09/17/24) MD DIAGNOSIS LEFT CLOSED SUBCAPITAL FEMUR FRACTURE WITH MD IZAGUIRRE OF [facility] PERFORMING ORIF 08/08/24. PAST MEDICAL HISTORY: HYPERTENSION, [...] FRAME OVER TOILET, GRAB BARS, SHOWER CHAIR, DATE NIGHT CAREGIVER, STEP, COMMODE, PEDDLAR, IN PROCESS OF HANDICAP [...] ANTALGIC WITH LEFT STANCE PHASE. TINETTI = 14/, FALL RISK. CG REPORTED CLOSE FALL WHEN [...] PHYSICAL THERAPY EVALUATION (09/23/24) PATIENT IS A [place] 78 YO FEMALE WITH PHYSICAL THERAPY REFERRAL AFTER HOSPITALIZATION AND SNF STAY (OSMEL BENAVIDEZ 08/11-09/17/24) MD DIAGNOSIS LEFT CLOSED SUBCAPITAL FEMUR FRACTURE WITH MD IZAGUIRRE OF [facility] PERFORMING ORIF 08/08/24. PAST MEDICAL HISTORY: HYPERTENSION, [...] FRAME OVER TOILET, GRAB BARS, SHOWER CHAIR, DATE NIGHT CAREGIVER, STEP, COMMODE, PEDDLAR, IN PROCESS OF HANDICAP [...] CARE WILL BE ESTABLISHED THAT MEETS PATIENT'S CORRECTION NEEDS AND INCLUDES PATIENT GOAL FOR HOME [...] THE PHYSICIANS SIGNATURE. Goal Provider Goal - FACILITY SERVICE ASSOCIATE TO COMPLETE EVALUATION TO ADDRESS THE PATIENTS [...] Notes Progress Notes <paragraph>[Visit Date: 2024 by SUKH BANKS LPN]:</paragraph><paragraph>SNV [...] NV. VSS, LS CLEAR, NO EDEMA, LBP 4/10 TAKING APAP PRN, DISCUSED ALT HEAT/COLD. PATIENT PARTICIPATED IN CONVERSATION,HAS CLEAR UNDERSTANDING OF ALL DISCUSSION TOPICS. EDUCATION: REVIEWED SIGNS AND SYMPTOMS OF CHF EXACERBATION THAT WOULD WARRANT IMMEDIATE MEDICAL ATTENTION, DAILY AM WEIGHTS, ALTERNATING HEAT/COLD FOR PAIN RELIEF INTERVENTIONS NEEDED AT NEXT VISIT: ASSESSMENT TEACHING COMMUNICATION WITH MD: Susanne NEXT MD APPOINTMENT: 10/22 PCP PT AND CAREGIVER INSTRUCTED TO CALL [facility] WITH ANY QUESTIONS OR CONCERNS AND/OR CHANGES IN CONDITION.</paragraph> Encounters Start Date/Time End Date/Time Encounter Type Admission Type Attending [facility] [place] Care Department Encounter ID Discharge Date Discharge Status Discharge Condition Discharge Reason Percent Goals Met 2024-09-19 00:00:00 2024-11-17 00:00:00 Outpatient JONAH JUÁREZ [facility] [id number] 48.94
== END 2024-10-22 12:27 | disposition home or self-care (01) ==
LOC: HO.HMGCLDS 12:26
PROVIDERS: Internal Medicine; PCP Internal Medicine; Visit Provider Internal Medicine Rheumatology
DX: Z09 Encounter for follow-up examination after completed treatment for conditions other than malignant neoplasm (principal); I50.20 Unspecified systolic (congestive) heart failure; I25.10 Atherosclerotic heart disease of native coronary artery without angina pectoris; D64.9 Anemia, unspecified; E11.22 Type 2 diabetes mellitus with diabetic chronic kidney disease; N18.30 Chronic kidney disease, stage 3 unspecified; C90.00 Multiple myeloma not having achieved remission; E03.9 Hypothyroidism, unspecified; M19.90 Unspecified osteoarthritis, unspecified site; R60.0 Localized edema; M25.512 Pain in left shoulder; M75.40 Impingement syndrome of unspecified shoulder; Z13.31 Encounter for screening for depression
CPT/HCPCS: 36415; 80048; 83880; 85027; 96127; 99212

== ENCOUNTER 2024-10-22 13:04 | Outpatient (AMB) | payer MEDICARE, SELFPAY ==
--- NOTE | 2024-10-22 13:08 | A.OFFPC_ITS ---
Vital Signs 10/22/24 13:17 Height 4 ft 11.25 in Weight 127 lb 2 oz BMI 25.5 BP 120/60 Blood Pressure Location Lt brachial Position Sitting Respiration 16 Pulse 76 Pulse Source Pulse Oximeter Temp 97.3 F Temp Source Temporal Artery Scan Pulse Oximetry (%) 97 Oxygen Delivery Method Room Air Intake Visit Reasons: discharged from [facility] Intake Note: Visit Reason: TCM Intake Note: Patient is here for hospital discharge follow up. Patient was discharged from Retail Representative Required: No Work Study Student: Not Required per policy Accompanied by: Self / Same As Patient Allergies esomeprazole (From NEXIUM) Allergy (Intermediate, Verified 10/22/24 14:45) CHEST PAIN omeprazole (From PRILOSEC) Allergy (Intermediate, Verified 10/22/24 14:45) CHEST PAIN diphenhydramine (From Benadryl) Allergy (Verified 10/22/24 14:45) Dizziness Medication List - Last Reconciled 10/22/24 by Mimi Calderón PA-C allopurinol 300 mg PO DAILY ascorbic acid (vitamin C) (Vitamin C) 500 mg PO DAILY biotin 1 mg PO DAILY bumetanide 1 mg PO DAILY bumetanide 2 mg See Protocol PO DAILY 90 days calcium carbonate (Calcium 600) 600 mg PO DAILY carvedilol 6.25 mg PO BID 90 days cholecalciferol (vitamin D3) (Vitamin D3) 50 mcg PO DAILY clopidogrel 75 mg PO DAILY 90 days cranberry 500 mg PO DAILY cyanocobalamin (vitamin B-12) 5,000 mcg PO DAILY d-mannose mg PO exemestane 25 mg PO DAILY folic acid 1 mg PO DAILY hydralazine 25 mg See Protocol PO BEDTIME levothyroxine 112 mcg (1.12 x 100 mcg) PO MOTUTHFRSA@0600 90 days rosuvastatin 20 mg PO DAILY vitamin E (dl, acetate) 450 mg PO DAILY Tobacco use date assessed: 07/07/24 Fall risk assessment: 2 + Falls in past year Last assessed Fall Risk: 10/22/24 Dental Screening Dental Screen Date: 10/22/24 Did you have a dental visit in the last 12 months?: Yes Did you have a dental problem in the last 6 months where you did not have access to dental care?: No Was dental information given to patient?: Patient has dentist HPI HPI Comments History of Present Illness Details Patient presents to the office for a TCM visit. Date of admission: 10/12/2024 Date of discharge: 10/13/2024 This is a Follow-up from admission at [facility]. HPI/Hospital Course/Discharge Summary: The patient is a 79-year-old female presenting for hospital discharge follow-up after being admitted for acute on chronic combined systolic and diastolic congestive heart failure and coronary artery disease. She was admitted to [facility] on 10/12/2024 and discharged on 10/13/2024. Her past medical history includes heart failure with reduced ejection fraction of 30 to 40%, chronic kidney disease stage 3, multiple myeloma, chronic anemia, coronary artery disease, and a history of breast cancer with right lumpectomy. The patient presented to the emergency department with complaints of indigestion, chest pressure, and left shoulder pain, which started over the weekend. She was reluctant to return to the emergency department due to frequent hospital visits but was prompted by her son to seek care. During her hospital stay, her BMP was elevated, and EKG showed premature supraventricular complexes and frequent PVCs. Her troponin levels were elevated, and she received 1 g of Bumex IV with good effect. The patient denied any chest pain or indigestion upon discharge and reported a large bowel movement during admission. She denied any fevers, chills, night sweats, recent travel, or eating out recently. Her chest X-ray showed cardiomegaly with no acute cardiopulmonary abnormalities. Cardiology was consulted, and an echocardiogram was reviewed to ensure her ejection fraction had not reduced further. The patient has a history of left shoulder impingement syndrome, which she was not aware of, but she has full range of motion without any abnormal signs. She was advised to follow up with orthopedics for her shoulder pain. The patient also has hypothyroidism secondary to thyroidectomy due to thyroid cancer, with elevated TSH and normal T4 levels. She takes levothyroxine regularly and was advised to monitor TSH in one week. Discharged to/Current Location: Home Lives with: Son age 48 Diagnosis: Acute on chronic combined systolic and diastolic congestive heart failure; CAD Procedures performed: Patient had chest x-ray New medications: No new medications were added although patient was instructed to take additional 1 mg Bumex as needed Discontinued medications: No medications were discontinued Change medications/dosing: Patient was instructed to increase her 1 mg Bumex to 2 mg as needed Pending labs: BNP was ordered by the hospitalist and patient had BNP performed today which revealed BNP of 2165 which has decreased from 2629. Pending diagnostic test: No diagnostic tests are pending at this time. Any Follow-up Labs required? CBC, basic metabolic panel, BNP all ordered at this time Any Follow-up Diagnostic test required? Chest x-ray ordered at this time How are you feeling? Patient reports she is feeling better Are you in any pain or discomfort? Patient reports she is less short of breath and is feeling better. She has also noticed her legs are not as swollen as they were before Do you have any questions about your condition or discharge instructions? Patient does not have any questions about her discharge condition or discharge instructions Were you able to get your medications filled? Patient was able to feel all her medications as prescribed Do you have any questions about your medications? Patient does not have any any questions about her medications at this time Any referrals required? No referrals required at this time Were you able to schedule your follow-up appointment? Patient has cardiology appointment on 11/17/2024 If home health was ordered, have they contact you? Patient has VNA services. Patient not interested in any other or additional home health services at this time. Any outpatient services, if so, are you scheduled? None at this time other than her VNA services that were already in place due to her prior hip fracture. Are there any additional resources like transportation you might need during her recovery? Patient does not need any transportation resources. - VNA? Patient has a visiting nurse in place at this time from her prior hospitalization for her hip fracture - FRONT DESK REPRESENTATIVE? Patient not interested at this t lore - Meals on wheels? Patient not interest ed at this time Educational need/resources: What support system do you have? Son is caregiver and he will continue to care for her and patient also has a daughter ON LICENSE OF [facility] Medical History (Updated 10/22/24 @ 16:15 by Mimi Calderón PA-C) CAD (coronary atherosclerotic disease) Osteoarthritis Hypothyroidism Multiple myeloma CKD stage 3 due to type 2 diabetes mellitus Impingement syndrome, shoulder Left shoulder pain CHF (congestive heart failure) Closed left hip fracture CAD (coronary artery disease) CHF (congestive heart failure) Cervix prolapsed into vagina History of blood transfusion (~02/01/23) Diabetes mellitus HFrEF (heart failure with reduced ejection fraction) Cardiomyopathy Normal colonoscopy Type 2 diabetes mellitus Diverticulosis Irritable bowel syndrome Pulmonary emboli GERD (gastroesophageal reflux disease) Nephrolithiasis Hypoparathyroidism Papillary thyroid carcinoma HTN (hypertension) Polymyalgia rheumatica Hyperglycemia Chronic anemia Anemia Surgical History Status post hip surgery (~08/04/23) History of colonoscopy (~07/30/18) Stented coronary artery Breast mass, right H/O endoscopy History of cholecystectomy H/O total thyroidectomy Family History Sister CHF (congestive heart failure) Daughter Breast cancer Son Kidney stones Social History Household Members: Family Household Members Other:: son Housing: House Do you presently have visiting nurse or other home services: No Alcohol intake: current Alcohol intake frequency: does not drink Patient Tobacco Use Status: Former Tobacco user e-Cigarette/Vaping Use: Never Used Second Hand Smoke Exposure: No Advance Directives Date on File: 06/27/24 service: No Current occupational status: retired Current occupation: Right Handed Cognitive needs: Yes (cane) Hearing needs: No Vision needs: Yes (reading glasses) Questionnaire PHQ-9 Over the last 2 weeks, how often have you been bothered by any of the following problems? 1. Little interest or pleasure in doing things: not at all 2. Feeling down, depressed, or hopeless: not at all 3. Trouble falling or staying asleep, or sleeping too much: several days 4. Feeling tired or having little energy: nearly every day 5. Poor appetite or overeating: not at all 6. Feeling bad about yourself - or that you are a failure or have let yourself or your family down: not at all 7. Trouble concentrating on things, such as reading the newspaper or watching television: not at all 8. Moving or speaking so slowly that other people could have noticed. Or the opposite - being so fidgety or restless that you have been moving around a lot more than usual: not at all 9. Thoughts that you would be better off or of hurting yourself in some way: not at all Total score: 4 Depression Screening Interpretation: Negative Depression Screening Done: Yes 80805 - PHQ-9 Billing: Yes Source: Developed by Drs. John Torres, Tu Ro and colleagues, with an educational ridge from [employer]. Thrive Questionnaire Date Thrive assessed: 10/13/24 I am a: Patient What is your living situation today?: I have a steady place to live Within the past 12 months, did the food you bought not last and you didn't have the money to get more?: Often true Within the past 12 months, did you worry whether your food would run out before you got money to buy more?: Sometimes True Do you have trouble paying for medicines?: No Do you have trouble getting transportation to medical appointments?: No Do you have trouble paying your heating and electricity bill?: Yes Do you have trouble taking care of your child, family member or friend?: No Do you have trouble with day-to-day activities such as bathing, preparing meals, shopping, managing finances, etc.?: Yes Are you currently unemployed and looking for a job?: No Are you interested in more education?: No Please select the resources that you would like help with: Food, Paying for medicine and Utilities THRIVE Score: 3 AUDIT C Alcohol Use Questionnaire (AUDIT-C) 1. How often do you have a drink containing alcohol?: Never 3. How often do you have six or more drinks on one occasion?: Never Total Score: 0 Score Reviewed/Action Taken: No RASHAUN-7 AMB Questionnaire RASHAUN-7 Date RASHAUN - 7 assessed: 07/07/24 Feeling nervous, anxious, or on edge: 0 = Not at all Not being able to stop or control worryin = Not at all Worrying too much about different things: 0 = Not at all Trouble relaxin = Several days Being so restless that it is hard to sit still: 0 = Not at all Becoming easily annoyed or irritable: 0 = Not at all Feeling afraid as if something awful might happen: 0 = Not at all Total RASHAUN-7 score (0-4 normal; 5-9 mild; 10-14 moderate; 15-21 severe): 1 Source: Developed by Park Singh Kurt Kroenke and colleagues, with an educational ridge from [employer]. RASHAUN-7 Assessment Billing RASHAUN-7 Assessment Tool: RASHAUN-7 Assessment 05981 Review of Systems Const Details: - Cardiovascular: Demies CP. - Gastrointestinal: Denies indigestion, denies abdominal pain, constipation, diarrhea. - Musculoskeletal: Reports chronic left shoulder pain, denies any abnormal signs with passive range of motion. - General: Denies fevers, chills, night sweats, recent travel, or eating out recently. All systems reviewed & are unremarkable except as noted in HPI and below Physical exam (Primary Care) Vital Signs: Last Vital Signs Temp 97.3 F 10/22/24 13:17 Pulse 76 10/22/24 13:17 Resp 16 10/22/24 13:17 BP 120/60 10/22/24 13:17 Pulse Ox 97 10/22/24 13:17 Oxygen Delivery Method Room Air 10/22/24 13:17 Vitals signs have been reviewed. Care Plan Goal for BP management: <140/90 at Goal BMI result Body Mass Index 25.5 BMI Assessment/Plan discussion: High BMI High, discussed plan: lifestyle, weight reduction, dietary, physical activity and alcohol moderation Tobacco/Smoking Status: Tobacco use Status Tobacco use date assessed 07/07/24 10/22/24 13:09 Patient Tobacco Use Status Former Tobacco user 10/22/24 13:32 Tobacco use type 08/15/23 17:11 e-Cigarette/Vaping Use Never Used 10/22/24 13:32 PHQ-9: PHQ-9 Score PHQ-9: Total score 4 10/22/24 13:32 Depression Screening Interpretation: Negative Thrive Assessment: Date of Thrive Assessment Date Thrive assessed 10/13/24 10/22/24 13:09 Const Other: Appearance: Alert. Oriented X3. No acute distress. Head: Normal external exam. Normocephalic. Atraumatic. Eyes: Pupils are equal, round, and reactive to light. Extraocular movements intact. Conjunctiva and sclera normal. Eyelids normal. Ears: External auditory canal normal. Tympanic membranes normal. Throat: Pharynx normal. Uvula midline. Moist mucous membranes. Neck: Normal inspection. Neck supple. Full range of motion. JVD present. Cardiovascular: Normal heart rate and rhythm. Distant Heart sounds. Pulses normal throughout. Respiratory: No respiratory distress. Painless inspiration. Breath sounds with rales. No wheezes/rhonchi noted. Chest nontender. No accessory muscle usage noted or decreased air movement noted. Abdomen: Soft and nontender. Back: No costovertebral angle tenderness. Full range of motion noted. Skin: Skin warm and dry. Normal skin color. Normal skin turgor. No rashes/lesions/lacerations noted. Extremities: No lower extremity edema. Extremities exhibit normal range of motion. Extremities nontender. Neuro: Oriented X 3. No motor deficit. No sensory deficit. Reflexes normal. Results Reviewed Results Reviewed: - Labs: Elevated BMP, elevated troponin levels, elevated TSH, normal T4. - Imaging: Chest X-ray showed cardiomegaly with no acute cardiopulmonary abnormalities. - Tests: EKG showed premature supraventricular complexes and frequent PVCs. Coding Level of Care Code TCM High MDM <= 14 days Complex EM visit Add On G2211 Diagnoses Hospital discharge follow-up Z09 HFrEF (heart failure with reduced ejection fraction) I50.20 Impingement syndrome, shoulder M75.40 Anemia D64.9 CKD stage 3 due to type 2 diabetes mellitus E11.22; N18.30 Multiple myeloma C90.00 Hypothyroidism E03.9 Osteoarthritis M19.90 CAD (coronary atherosclerotic disease) I25.10 Additional Codes RASHAUN-7 Assessment Billing - RASHAUN-7 Assessment Tool: RASHAUN-7 Assessment 63190 ([id number]) PHQ-9 - 89453 - PHQ-9 Billing: Yes ([id number]) Time Spent (min) 60 Assessment & Plan Assessment & Plan (1) Hospital discharge follow-up: Code(s): Z09 - Encounter for follow-up examination after completed treatment for conditions other than malignant neoplasm Category: Medical (2) HFrEF (heart failure with reduced ejection fraction): Code(s): I50.20 - Unspecified systolic (congestive) heart failure Category: Medical Plan: The patient was admitted for exacerbation of congestive heart failure with reduced ejection fraction and received 1 g of Bumex IV with good effect. She was advised to take Bumex 2 mg daily with an additional 1 mg PRN if needed. Outpatient monitoring of BMP and BNP was recommended. (3) Impingement syndrome, shoulder: Code(s): M75.40 - Impingement syndrome of unspecified shoulder Category: Medical (4) Anemia: Code(s): D64.9 - Anemia, unspecified Category: Medical Plan: The patient has chronic anemia with a history of frequent transfusions. Her H&H is currently stable, and CBC monitoring was recommended. Condition is chronic and stable will continue to monitor. (5) CKD stage 3 due to type 2 diabetes mellitus: Code(s): E11.22 - Type 2 diabetes mellitus with diabetic chronic kidney disease; N18.30 - Chronic kidney disease, stage 3 unspecified Category: Medical Plan: The patient's chronic kidney disease stage 3 was noted, and BMP monitoring was recommended as part of her heart failure management. Condition is chronic and stable will continue to monitor. (6) Multiple myeloma: Code(s): C90.00 - Multiple myeloma not having achieved remission Category: Medical Plan: The patient has a history of multiple myeloma and has undergone chemotherapy. Condition is chronic and stable continue to monitor. (7) Hypothyroidism: Code(s): E03.9 - Hypothyroidism, unspecified Category: Medical Plan: The patient has hypothyroidism secondary to thyroidectomy due to thyroid cancer, with elevated TSH and normal T4 levels. She takes levothyroxine regularly and was advised to monitor TSH in one week. Condition is chronic and stable will continue to monitor. (8) Osteoarthritis: Code(s): M19.90 - Unspecified osteoarthritis, unspecified site Category: Medical Plan: The patient has a history of left shoulder impingement syndrome with full range of motion and no abnormal signs. She was advised to follow up with orthopedics for further management. Condition is chronic and stable continue to monitor. (9) CAD (coronary atherosclerotic disease): Code(s): I25.10 - Atherosclerotic heart disease of [place] coronary artery without angina pectoris Category: Medical Plan: The patient presented with chest pressure and indigestion, which resolved during her hospital stay. Cardiology was consulted, and an echocardiogram was reviewed to ensure no further reduction in ejection fraction. Condition is chronic and stable will continue to monitor. Plan Plan Patient was informed and verbally consented to the use of an ambient scribe for clinic note documentation during this visit. 1. Congestive Heart Failure With Reduced Ejection Fraction The patient was admitted for exacerbation of congestive heart failure with reduced ejection fraction and received 1 g of Bumex IV with good effect. She was advised to take Bumex 2 mg daily with an additional 1 mg PRN if needed. Outpatient monitoring of BMP and BNP was recommended. 2. Coronary Artery Disease The patient presented with chest pressure and indigestion, which resolved during her hospital stay. Cardiology was consulted, and an echocardiogram was reviewed to ensure no further reduction in ejection fraction. 3. Chronic Kidney Disease Stage 3 The patient's chronic kidney disease stage 3 was noted, and BMP monitoring was recommended as part of her heart failure management. 4. Multiple Myeloma The patient has a history of multiple myeloma and has undergone chemotherapy. 5. Chronic Anemia The patient has chronic anemia with a history of frequent transfusions. Her H&H is currently stable, and CBC monitoring was recommended. 6. Hypothyroidism Secondary To Thyroidectomy The patient has hypothyroidism secondary to thyroidectomy due to thyroid cancer, with elevated TSH and normal T4 levels. She takes levothyroxine regularly and was advised to monitor TSH in one week. 7. Osteoarthritis With Left Shoulder Impingement Syndrome The patient has a history of left shoulder impingement syndrome with full range of motion and no abnormal signs. She was advised to follow up with orthopedics for further management. I discussed with the patient the importance of managing her fluid intake and adhering to her Bumex regimen to control her congestive heart failure symptoms. We reviewed her recent lab results, noting the improvement in her BNP levels, and emphasized the need for ongoing monitoring of her kidney function and electrolytes. I also explained the referral to orthopedics for her shoulder impingement and the continuation of physical therapy. We agreed on a follow-up plan, including blood work and a cardiology appointment, to ensure comprehensive management of her conditions. 60 minutes were spent on this encounter which included history, physical, coordination of care, counseling, documentation and reviewing hospital notes. Orders: Orders Complete Blood Count Auto Diff Today Z00.00 - Encounter for general adult medical examination without abnormal findings TSH reflex Free T4 Today Z00.00 - Encounter for general adult medical examination without abnormal findings B Type Natriuretic Peptide Today R60.0 - Localized edema XR chest 2V Today I34.0 - Nonrheumatic mitral (valve) insufficiency, I50.20 - Unspecified systolic (congestive) heart failure, I50.43 - Acute on chronic combined systolic (congestive) and diastolic (congestive) heart failure, Z86.79 - Personal history of other diseases of the circulatory system Comprehensive Met. Panel Today Z00.00 - Encounter for general adult medical examination without abnormal findings Referrals Orthopedics Referral M25.512 - Pain in left shoulder, M75.40 - Impingement syndrome of unspecified shoulder Patient Instructions: - Continue taking Bumex 1 mg daily, with an additional 1 mg dose as needed for swelling. - Monitor fluid intake and avoid excessive water consumption. - Follow up with blood work to monitor kidney function, potassium, and BNP levels. - Attend orthopedic referral for shoulder impingement evaluation. - Continue home physical therapy for shoulder mobility and pain management. - Schedule follow-up appointments with [facility].
[2024-10-22 13:17] VITALS: BP 120/60; PULSE 76; RESP 16; TEMP 36.3; O2SAT 97; BMI 25.5
== END 2024-10-22 14:01 | disposition home or self-care (01) ==
LOC: HO.HMCSH 13:04
PROVIDERS: PCP Internal Medicine; Visit Provider Physician Assistant Medical
DX: I50.20 Unspecified systolic (congestive) heart failure (principal); E11.22 Type 2 diabetes mellitus with diabetic chronic kidney disease; N18.30 Chronic kidney disease, stage 3 unspecified; C90.00 Multiple myeloma not having achieved remission; Z09 Encounter for follow-up examination after completed treatment for conditions other than malignant neoplasm; M75.40 Impingement syndrome of unspecified shoulder; D64.9 Anemia, unspecified; E03.9 Hypothyroidism, unspecified; M19.90 Unspecified osteoarthritis, unspecified site; I25.10 Atherosclerotic heart disease of native coronary artery without angina pectoris

== ENCOUNTER 2024-10-26 15:02 | Outpatient (REF) | payer MEDICARE, SELFPAY ==
--- OUTSIDE RECORDS SUMMARY | 2024-10-25 23:59 | XMS_ITS | Continuity of Care Document ---
Author Organization [facility] Address [address] [place] [address]- Care Team Providers Care Dispatch Coordinator Name Role Phone Teena ALVAREZ, Paul Shelton Primary Care Physician [id number] Date(s): 09/25/24 - 10/25/24 [facility] [address] [place] [id number] Attending Physician: Lamont Saleh Admitting Physician: AdmtrLamont Referring Physician: Admtr [id number] Encounter Type: Triage Allergies, Adverse Reactions, Alerts Substance Criticality Severity [...] Quantity: 30.0 Unit: tablet Repeat number: 1 ascorbic acid 250 mg oral tablet = 250 mg, By Mouth, 2 times a day with meals, 0 Refills, Maintenance, 08/11/24 2:31:00 PM EDT, Tablet, Partial fill upon patient request if the prescription is for a schedule II opioid drug. Start Date: 08/11/24 Status: Ordered Repeat number: 1 aspirin 81 mg oral tablet 1 tablet = 81 mg, By Mouth, Daily, # 30 tablet, 0 Refills, Maintenance, 04/17/18 2:46:07 PM EST, Tablet Start Date: 04/17/18 Status: Ordered Quantity: 30.0 Unit: tablet Repeat number: 1 Bumetanide = 1 mg, By Mouth, Daily, Hold for few days on discharge, before resumption, 0 Refills, Maintenance,01/31/24 11:46:00 AM EDT, Partial fill upon patient request if the prescription is for a schedule II opioid drug. Start Date: 01/31/24 Status: Ordered Repeat number: 1 calcium carbonate 600 mg oral tablet 1 tablet = 600 mg, By Mouth, Daily, 0 Refills, Maintenance, 01/20/18 6:43:30 AM EDT Start Date: 01/20/18 Status: Ordered Repeat number: 1 carvedilol 12.5 mg oral tablet 12.5 mg, By Mouth, 2 times a day, Refills 0, Maintenance, 08/11/24 1:48:00 PM EDT, Partial fill uponpatient request if the prescription is for a schedule II opioid drug. Start Date: 08/11/24 Status: Ordered Repeat number: 1 cholecalciferol 1000 intl units oral tablet By Mouth, Daily, 0 Refills, Maintenance, 08/11/24 1:49:00 PM EDT, Tablet, Partial fill upon patient request if the prescription is for a schedule II opioid drug. Start Date: 08/11/24 Status: Ordered Repeat number: 1 clopidogrel 75 mg oral tablet 75 mg, By Mouth, Daily, # 90 tablet, Refills 3, Tot. Refills 3, Maintenance, 09/19/23 4:28:00 PM EDT, Route to Pharmacy Electronically, [facility], Partial fill upon patient request if the prescription is for a schedule II opioid drug., 154, cm, 09/19/23 14:14:00 EDT, Height, 60.4, kg,09/19/23 14:14:00 EDT, Dry Weight Start Date: 09/19/23 Stop Date: 09/13/24 Status: Ordered Quantity: 90.0 Unit: tablet Repeat number: 4 Crestor 20 mg oral tablet 1 tablet [...] Quantity: 30.0 Unit: tablet Repeat number: 1 gabapentin 300 mg oral capsule 300 mg, 1, capsule, By Mouth, Daily at bedtime, Refills 0, Maintenance, 03/26/18 8:49:45 AM EST Start Date: 03/26/18 Status: Ordered Repeat number: 1 Heparin 1 mL = 5,000 units, Subcutaneous Injection, 3 times a day, 0 Refills, Maintenance, 08/11/24 1:50:00 PM EDT, Injection, Partial fill upon patient request if the prescription is for a schedule II opioiddrug. Start Date: 08/11/24 Status: Ordered Repeat number: 1 hydrALAZINE 25 mg oral tablet 25 mg, By Mouth, 2 times a day, # 60 tablet, Refills 0, Tot. Refills 0, Maintenance, 08/11/24 1:49:00 PM EDT, Do Not Route, Partial fill upon patient request if the prescription is for a schedule II opioid drug. Start Date: 08/11/24 Stop Date: 09/10/24 Status: Ordered Quantity: 60.0 Unit: tablet Repeat number: 1 Levoxyl 0.1 mg oral tablet 0.1 mg, 1, tablet, By Mouth, Daily, # 90 each, 2 Refills, Soft Stop Start Date: 09/02/08 Stop Date: 10/02/08 Status: Ordered Quantity: 90.0 Unit: each Repeat number: 3 Multivitamin Tablet 1 tablet, By Mouth, Daily, 0 Refills, Maintenance, 08/11/24 1:51:00 PM EDT, Tablet, Partial fill upon patient request if the prescription is for a schedule II opioid drug. Start Date: 08/11/24 Status: Ordered Repeat number: 1 ondansetron 4 mg oral tablet 1 tablet = 4 mg, By Mouth, Every 8 hours, PRN Nausea & Vomiting, # 10 tablet, 0 Refills, Maintenance, 02/08/23 1:27:00 PM EDT, Tablet, [id number], Partial fill upon patient request if theprescription is for a schedule II opioid drug., 155, cm, 01/31/23 19:46:00 EDT, Height, 60.9, kg, 01/31/23 10:53:00 EDT, Dry Weight Start Date: 02/08/23 Status: Ordered Quantity: 10.0 Unit: tablet Repeat number: 1 vitamin E 100 iu [...] Confirmed 2023 Active Multiple myeloma Confirmed Active Social History Social History Type Response Smoking Status Former smoker entered on: 01/10/17 Sex Sex Representation Female (finding) Laboratory * Event Display: Non BH Lab Results Authored Date: * Event Display: Non Lab Results Authored Date: * Event Display: Non Lab Results Authored Date: Patient Care team information Care Team Personnel Name: Meredith Hammond Position: [facility] Onco RN Member Role: Primary Care Nurse Name: Taya Doshi RN Position: [facility] Rad RN Member Role: Primary Care Nurse Name: Brissa Turner RN Position: S RN Member Role: Primary Care Nurse Name: Kenyatta Be RN Position: S RN Member Role: Primary Care Nurse Name: Juliana Campos RN Position: [facility] Onco RN Member Role: Primary Care Nurse Name: Delores Soni RN Position: S RN Member Role: Primary Care Nurse Name: Rachelle Woods RN Position: S RN Member Role: Primary Care Nurse Name: Deanne Mccauley RN Position: S RN Member Role: Primary Care Nurse Name: Dominique Sosa RN Position: S RN Member Role: Primary Care Nurse Name: Paul Dickinson MD Position: Reference Physician Member Role: PCP Address: [address] [place] [address]- Telecom: Name: Rema Jeffers RN Position: S Onco RN Member Role: Primary Care Nurse Care Team Related Persons Name: KOJO KAPLAN Name: KOJO DODGE Name: JW LIU Insurance Providers Guarantor name: SAVANNAH WASHINGTON [employer] Information #: 1 Payer: MEDICARE B Payer Identifier: Member Number: [id number] Group Number: Subscriber Identifier: [id number] Relationship to Subscriber: self Coverage Type: NA Coverage Verification Date: NA Telecom: NA Address: Health Plan Information #: 2 Payer: MEDEX SECONDARY ONLY Payer Identifier: Member Number: [id number] Group Number: Subscriber Identifier: [id number] Relationship to Subscriber: self Coverage Type: Medicare Other Coverage Verification Date: NA Telecom: NA Address:
--- NOTE | ~2024-10-26 | XR_ITS ---
EXAMINATION: XR CHEST 2 VIEWS HISTORY: I50.20 - Unspecified systolic (congestive) heart failure COMPARISON: Comparison is made with the prior examination dated 10/12/2024. FINDINGS: PA and lateral views of the chest are submitted. The lungs are expanded and clear. There is no pleural effusion, pneumothorax, or pulmonary vascular congestion. The heart remains enlarged. The aorta is calcified. There is degenerative disc disease of the spine. XR/XR chest 2V IMPRESSION: Cardiomegaly. No acute cardiopulmonary abnormality. Electronically signed by: John Pollock MD 10/26/2024 03:42 PM EDT
--- OUTSIDE RECORDS SUMMARY | 2024-10-26 15:30 | XMS_ITS | Encounter Summary ---
Author Organization [facility] Address [address] [place] [address] Care Team Providers Care Software Packaging Engineer Name Role Phone John Avina DO Primary Care Provider [phone] Encounter Details Date Type Department Care Team (Late st Contact Info) Description 06/10/2024 Lab Requisition [facility] - Main Lab [address] [facility] [place] [address] Arianna Iraheta PA [address] [place], [place] [id number] Dysuria Social History Tobacco Use Types Packs/Day [...] pneumoniae(A) RIC 06/12/2024 11:01 AM EST [facility] Comment: This is an edited result. [...] - GENERAL ORD ERABLES Final Result [facility] [address] [place] [address], documented in this encounter Visit Diagnoses Diagnosis Dysuria documented in this encounter Care Teams Software Packaging Engineer Relationship Specialty Start Date End Date John Avina DO [address] [place] [id number] PCP - General Internal Medicine 06/10/24 documented as of this encounter
--- OUTSIDE RECORDS SUMMARY | 2024-10-26 15:31 | XMS_ITS | Clinical Summary ---
Author Organization [facility] Address [address] [place] [address] Phone Care Team Providers Care Automated Manufacturing Instructor Name Role Phone FabriceJohn solares Primary Care [...] Orders Only [facility] [address] [place] [address] Mejia Soler MD Chronic kidney disease, stage 4 (severe) ([facility]) from Last 3 Months Social History Tobacco [...] Visit [facility] [address] [place] [address] Mejia Soler MD [address] [facility] [address] [place] [address] Health Maintenance Due Date Last Done Comments Pneumococcal Vaccine: 50+ Ye ars (1 of 2 - PCV) 1964 Diabetes: Hemoglobin A1C 04/23/2024 Diabetes: Ophthalmology Exam 04/23/2024 Diabetes: Pedal Pulse Checked 04/23/2024 Diabetes: Sensory Foot Exam 04/23/2024 Diabetes: Visual Foot Exam 04/23/2024 Influenza Vaccine (#1) 2024 Hepatitis B Vaccine Aged Out No longe r eligible based on patient's age to complete this topic Insurance Medicare [facility] Medicare [facility] Care Teams Automated Manufacturing Instructor Relationship Specialty Start Date End Date John Avina DO [address] [place] [address] PCP - General Internal Medicine 10/23/23
[2024-10-26 16:28] LABS: B Type Natriuretic Peptide 2135 pg/mL (<100)
[2024-10-26 16:51] LABS: MANUAL DIFF FLAG NO
[2024-10-26 17:06] LABS: Hematocrit 24.4 % (37.0-47.0); Hemoglobin 8.1 g/dl (12.0-16.0); Imm Gran Abs Auto 0.02 X10*3/uL (0.00-0.03); Imm Gran Pct Auto 0.3 % (0.0-0.4); Lymphocytes Absolute Auto 1.2 X10*3/uL (1.2-4.9); Mean Corpuscular HGB Conc 33.2 g/dl (31.0-35.0); Mean Corpuscular Hemoglobin 35.2 pg (27.0-33.0); Mean Corpuscular Volume 106.1 fL (80.0-98.0); NRBC Abs Auto 0.000 X10*3/uL (0.0-0.012); NRBC Pct Auto 0.0 /100WBC (0.0-0.2); Platelet Count 186 X10*3/uL (160-400); Red Blood Count 2.30 X10*6/uL (4.20-5.50); White Blood Count 7.5 X10*3/uL (4.8-10.8)
[2024-10-26 17:52] LABS: Alanine Aminotransferase 26 U/L (0-31); Albumin Level 4.1 g/dL (3.5-5.0); Alkaline Phosphatase 56 U/L (39-117); Anion Gap 14 (12-20); Aspartate Amino Transferase 23 U/L (5-31); Blood Urea Nitrogen 49 mg/dL (9-16); Calcium 9.0 mg/dL (8.4-10.2); Carbon Dioxide 31 mmol/L (22-29); Chloride 105 mmol/L (96-108); Estimated Glomerular Filt Rate 24; Potassium 3.8 mmol/L (3.3-5.1); Sodium 146 mmol/L (135-145); Total Protein 7.2 g/dL (6.5-8.0)
[2024-10-26 18:43] LABS: Free T4 (Free Thyroxine) 1.55 ng/dL (0.71-1.85)
--- OUTSIDE RECORDS SUMMARY | 2024-11-16 20:00 | XMS_ITS | Clinical Summary ---
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) USE OF ANTITHROMBOT ICS/ANTIPLAT ELETS Active [...] 06-25 00:00: 00 07-02 00:00 :00 No [id number] Per instruc tions Per instructio ns (route: oral) Med Classific ation: Cardiovas cular Therapy Agents hydralazine 25 mg tablet 2-28 00:00: 00 07-02 00:00 :00 No [id number] Per instruc tions Per instructio ns (route: oral) Med Classific ation: Cardiovas cular Therapy Agents allopurinol 300 mg tablet 07-02 00:00: 00 09-14 23:59 :00 No [id number] 1 tablet DAILY 1 tablet DAILY (route: oral) Med Classific ation: Gout and Hyperuric emia Therapy AZO D-Mannose 500 mg capsule 07-02 00:00: 00 09-14 23:59 :00 No [id number] 1 capsule DAILY 1 capsule DAILY (route: oral) Med Classific ation: Alternati ve Therapy bumetanide 1 mg tablet 07-02 00:00: 00 09-14 23:59 :00 No [id number] 1 tablet DAILY 1 tablet DAILY (route: oral) Med Classific ation: Cardiovas cular Therapy Agents Calcium 600 + D(3) 600 mg-10 mcg (400 unit) tablet 07-02 00:00: 00 09-14 23:59 :00 No [id number] 1 tablet DAILY 1 tablet DAILY (route: oral) Med Classific ation: Electroly te Balance-N utritiona l Products Coreg 6.25 mg tablet 07-02 00:00: 00 09-14 23:59 :00 No [id number] 1 tablet 2 TIMES DAILY 1 tablet 2 TIMES DAILY (route: oral) Med Classific ation: Cardiovas cular Therapy Agents cranberry 450 mg tablet 07-02 00:00: 00 09-14 23:59 :00 No [id number] 2 tablet DAILY 2 tablet DAILY (route: oral) Med Classific ation: Alternati ve Therapy dicyclomine 10 mg capsule 07-02 00:00: 00 07-13 23:59 :00 No [id number] 1 mg DAILY 1 mg DAILY (route: oral) Med Classific ation: Gastroint estinal Therapy Agents exemestane 25 mg tablet 07-02 00:00: 00 09-14 23:59 :00 No [id number] 1 tablet DAILY 1 tablet DAILY (route: oral) Med Classific ation: Antineopl astics folic acid 1 mg tablet 07-02 00:00: 00 09-14 23:59 :00 No [id number] 1 tablet DAILY 1 tablet DAILY (route: oral) Med Classific ation: Electroly te Balance-N utritiona l Products hydralazine 25 mg tablet 07-02 00:00: 00 09-14 23:59 :00 No [id number] 1 tablet 2 TIMES DAILY 1 tablet 2 TIMES DAILY (route: oral) Med Classific ation: Cardiovas cular Therapy Agents magnesium 250 mg (as magnesium oxide) tablet 07-02 00:00: 00 09-14 23:59 :00 No [id number] 1 tablet DAILY 1 tablet DAILY (route: oral) Med Classific ation: Electroly te Balance-N utritiona l Products mecobalamin (vitamin B12) 1,000 mcg chewable tablet 07-02 00:00: 00 09-14 23:59 :00 No [id number] 1 tablet DAILY 1 tablet DAILY (route: oral) Med Classific ation: Electroly te Balance-N utritiona l Products Plavix 75 mg tablet 07-02 00:00: 00 09-14 23:59 :00 No [id number] 1 tablet DAILY 1 tablet DAILY (route: oral) Med Classific ation: Hematolog ical Agents potassium gluconate 600 mg (99 mg) tablet 07-02 00:00: 00 09-14 23:59 :00 No [id number] 1 tablet DAILY 1 tablet DAILY (route: oral) Med Classific ation: Electroly te Balance-N utritiona l Products Synthroid 100 mcg tablet 07-02 00:00: 00 09-14 23:59 :00 No [id number] 1 tablet DAILY 1 tablet DAILY (route: oral) Med Classific ation: Endocrine Vitamin C 1,000 mg tablet 07-02 00:00: 00 09-14 23:59 :00 No [id number] 1 tablet DAILY 1 tablet DAILY (route: oral) Med Classific ation: Electroly te Balance-N utritiona l Products vitamin E (dl, acetate) 180 mg (400 unit) capsule 07-02 00:00: 00 09-14 23:59 :00 No [id number] 1 capsule DAILY 1 capsule DAILY (route: oral) Med Classific ation: Electroly te Balance-N utritiona l Products acetaminoph en 325 mg tablet 5-31 00:00: 00 Yes [id number] Per instruc tions NEEDED Per instructio ns NEEDED (route: oral) Med Classific ation: Analgesic , Anti-infl ammatory or Antipyret ic allopurinol 300 mg tablet 09-19 00:00: 00 Yes [id number] 1 tablet DAILY 1 tablet DAILY (route: oral) Med Classific ation: Gout and Hyperuric emia Therapy AZO D-Mannose 500 mg capsule 09-19 00:00: 00 Yes [id number] 1 capsule DAILY 1 capsule DAILY (route: oral) Med Classific ation: Alternati ve Therapy bumetanide 1 mg tablet 09-19 00:00: 00 Yes [id number] 2 tablet DAILY 2 tablet DAILY (route: oral) Med Classific ation: Cardiovas cular Therapy Agents carvedilol 6.25 mg tablet 09-19 00:00: 00 Yes [id number] 1 tablet 2 TIMES DAILY 1 tablet 2 TIMES DAILY (route: oral) Med Classific ation: Cardiovas cular Therapy Agents clopidogrel 75 mg tablet 09-19 00:00: 00 Yes [id number] 1 tablet DAILY 1 tablet DAILY (route: oral) Med Classific ation: Hematolog ical Agents cyanocobala min (vit B-12) 1,000 mcg tablet 09-19 00:00: 00 Yes [id number] 1 tablet DAILY 1 tablet DAILY (route: oral) Med Classific ation: Electroly te Balance-N utritiona l Products exemestane 25 mg tablet 09-19 00:00: 00 Yes [id number] 1 tablet DAILY 1 tablet DAILY (route: oral) Med Classific ation: Antineopl astics hydralazine 25 mg tablet 09-19 00:00: 00 Yes [id number] 1 tablet 2 TIMES DAILY 1 tablet 2 TIMES DAILY (route: oral) Med Classific ation: Cardiovas cular Therapy Agents levothyroxi ne 100 mcg tablet 09-19 00:00: 00 Yes [id number] 1 tablet DAILY 1 tablet DAILY (route: oral) Med Classific ation: Endocrine magnesium 250 mg (as magnesium oxide) tablet 09-19 00:00: 00 Yes [id number] 1 tablet DAILY 1 tablet DAILY (route: oral) Med Classific ation: Electroly te Balance-N utritiona l Products ondansetron 4 mg disintegrat ing tablet 09-19 00:00: 00 Yes [id number] 1 tablet O2 - PRN 1 tablet O2 - PRN (route: oral) Med Classific ation: Gastroint estinal Therapy Agents potassium gluconate 600 mg (99 mg) tablet 09-19 00:00: 00 Yes [id number] 1 tablet DAILY 1 tablet DAILY (route: oral) Med Classific ation: Electroly te Balance-N utritiona l Products Vitamin C 1,000 mg tablet 09-19 00:00: 00 Yes [id number] 1 tablet DAILY 1 tablet DAILY (route: oral) Med Classific ation: Electroly te Balance-N utritiona l Products Vitamin D3 25 mcg (1,000 unit) capsule 09-19 00:00: 00 Yes [id number] 1 capsule DAILY 1 capsule DAILY (route: oral) Med Classific ation: Electroly te Balance-N utritiona l Products Vital Signs Vital Name Observation Time Observation Value Commen ts Temperature 2024-10-22 14:32:00.000 97.2 [degF] Temperature 2024-10-20 [...] kg/m2 Height 2024-09-19 11:07:00.000 61 [in_us] Pulse 2024-10-22 14:32:00.000 72 /min Pulse 2024-10-20 11:20:00.000 74 /min Pulse 2024-10-12 11:02:00.000 70 /min Pulse 2024-10-06 17:18:00.000 74 /min Pulse 2024-10-05 11:29:00.000 74 /min Pulse 2024-10-01 11:04:00.000 62 /min Pulse 2024-09-29 11:49:00.000 77 /min Pulse 2024-09-25 10:58:00.000 69 /min Pulse 2024-09-24 10:11:00.000 78 /min Pulse 2024-09-23 09:46:00.000 60 /min Pulse 2024-09-22 10:29:00.000 60 /min Pulse 2024-09-19 11:07:00.000 60 /min O2 Saturation (%) 2024-10-22 14:32:00.000 96 % [...] Saturation (%) 2024-09-19 11:07:00.000 97 % Respirations 2024-10-22 14:32:00.000 18 /min Respirations 2024-10-20 11:20:00.000 18 /min Respirations 2024-10-12 11:02:00.000 18 /min Respirations 2024-10-06 17:18:00.000 18 /min Respirations 2024-10-05 11:29:00.000 18 /min Respirations 2024-10-01 11:04:00.000 18 /min Respirations 2024-09-29 11:49:00.000 18 /min Respirations 2024-09-25 10:58:00.000 18 /min Respirations 2024-09-23 09:46:00.000 18 /min Respirations 2024-09-22 10:29:00.000 18 /min Respirations 2024-09-19 11:07:00.000 18 /min Weight (lbs) 2024-10-22 14:39:00.000 124 [lb_av] Weight (lbs) 2024-10-20 11:20:00.000 122.5 [lb_av] Weight (lbs) 2024-10-06 17:19:00.000 124 [lb_av] Weight (lbs) 2024-10-05 11:38:00.000 125 [lb_av] Weight (lbs) 2024-09-29 11:53:00.000 124 [lb_av] Weight (lbs) 2024-09-19 11:07:00.000 123 [lb_av] Systolic Blood Pressure 2024-10-22 14:32:00.000 114 mm [...] 11:07:00.000 126 mm [Hg] Diastolic Blood Pressure 2024-10-22 14:32:00.000 [...] FOR NEED FOR COMMUNITY RESOURCES [code = SAMPLING THEORY TEACHER TO EVALUATE PATIENT FOR NEED FOR COMMUNITY [...] MAINTAIN SITUATIONAL AWARENESS AND WILL NOTIFY CLINICAL RAILCAR SWITCHMAN AND PHYSICIAN/PROVIDER WITH ANY CHANGE IN CONDITION. [code = SKILLED NURSE TO PERFORM ENVIRONMENTAL SAFETY RISK ASSESSMENT AND FALL RISK ASSESSMENT AND PROVIDE INSTRUCTION TO IMPLEMENT ENVIRONMENTAL SAFETY AND FALL PREVENTION STRATEGIES THROUGHOUT THE CERTIFICATION PERIOD. SKILLED NURSE WILL MAINTAIN SITUATIONAL AWARENESS AND WILL NOTIFY CLINICAL RAILCAR SWITCHMAN AND PHYSICIAN/PROVIDER WITH ANY CHANGE IN CONDITION.] [...] PHYSICAL THERAPY EVALUATION (09/23/24) PATIENT IS A [place] 78 YO FEMALE WITH PHYSICAL THERAPY REFERRAL AFTER HOSPITALIZATION AND SNF STAY ([facility] 08/11-09/17/24) MD DIAGNOSIS LEFT CLOSED SUBCAPITAL FEMUR FRACTURE [facility]08/24. PAST MEDICAL HISTORY: HYPERTENSION, [...] FRAME OVER TOILET, GRAB BARS, SHOWER CHAIR, INSPECTOR AGRICULTURAL COMMODITIES, STEP, COMMODE, PEDDLAR, IN PROCESS OF HANDICAP [...] ANTALGIC WITH LEFT STANCE PHASE. TINETTI = , FALL RISK. CG REPORTED CLOSE FALL WHEN [...] PHYSICAL THERAPY EVALUATION (09/23/24) PATIENT IS A [place] 78 YO FEMALE WITH PHYSICAL THERAPY REFERRAL AFTER HOSPITALIZATION AND SNF STAY ([facility] 08/11-09/17/24) MD DIAGNOSIS LEFT CLOSED SUBCAPITAL FEMUR FRACTURE WITH MD [facility] OF [facility] PERFORMING ORIF 08/08/24. PAST MEDICAL HISTORY: HYPERTENSION, HYPERLIPIDEMIA, LEFT BREAST CANCER ON CHEMOTHERAPY, CHRONIC KIDNEY DISEASE, CAD HEART FAILURE, CHRONIC ANEMIA, UTI, COLITIS FROM ANTIBIOTICS. O2 2L NASAL CANNULA AT NIGHT ONLY. PATIENT APPTS: PCP 10/13/24, SURGEON 10/06/24, ONCOLOGIST 10/07/24. PATIENT LIVES WITH SON IBJU IN SINGLE FAMILY HOME, 3 STAIRS WITH RAIL TO NEGOTIATE. 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 FALL HISTORY: FALL DOWN STAIRS WHEN CARRYING OUT TRASH. PLOF: USE OF CANE, DROVE CLOF: DME: FWW, ROLLATOR, SBQC, VERSA FRAME OVER TOILET, GRAB BARS, SHOWER CHAIR, INSPECTOR AGRICULTURAL COMMODITIES, STEP, COMMODE, PEDDLAR, IN PROCESS OF HANDICAP [...] CARE WILL BE ESTABLISHED THAT MEETS PATIENT'S LONG TERM NEEDS AND INCLUDES PATIENT GOAL FOR HOME [...] THE PHYSICIANS SIGNATURE. Goal Provider Goal - SAMPLING THEORY TEACHER TO COMPLETE EVALUATION TO ADDRESS THE PATIENTS [...] Notes Progress Notes <paragraph>[Visit Date: 2024 by LE JUAREZ PT]:</paragraph><paragraph>PHYSICAL THERAPY REASSESSMENT (10/22/24) PATIENT PARTICIPATED IN 5 [facility]ILLED [facility] TREATMENT SESSIONS AND HAS MADE PROGRESS TOWARDS ALL GOALS, HOWEVER NOT ALL GOALS MET. PATIENT REQUIRES CONTINUED PHYSICAL THERAPY PER PLAN OF CARE TO MAX SAFETY AND FUNCTIONAL LEVEL IN HOME ENVIRONMENT, WITH POSSIBLE REASSESSMENT NEXT VISIT INSTEAD OF DISCHARGE DUE TO RECENT PATIENT REHOSPITALIZATION. R HIP FLEX STRENGTH IMPROVED TO 4/5 (SOC: 3+/5). PROGRESS BUT GOAL NOT MET. PATIENT ABLE TO COMPLETE SIT->STAND MOD I WITH FWW (SOC: SUPERVISION). GOAL MET. PATIENT ABLE TO AMB 60' WITH FWW MOD I (SOC: 0' WITH FWW AND SUPERVISION). GOAL MET. TINETTI IMPROVED TO 17/28 (SOC: ). PROGRESS BUT GOAL NOT MET. PATIENT ABLE TO COMPLETE BILAT LE HEP WITH SUPERVISON (SOC: UNABLE). PROGRESS BUT GOAL NOT MET.</paragraph> <paragraph>[Visit Date: 2024 by SUKH BANKS LPN]:</paragraph><paragraph>SNV 10/20 ABNORMAL VITALS: WT 122.5 FALLS: NO FALLS P, USES WALKER MEDICATION CHANGES: NONE OBSERVATION AND ASSESSMENT PROVIDED: PT A/OX4, COOPERATIVE DURING VISIT. PATIENT WAS SEEN IN THE ED LAST WEEK FOR COMPLAINTS OF CHEST PAIN. PATIENT RECEIVED IV LASIX DURING VISIT AND PLACED UNDER OBSERVATION BEFORE BEING DISCHARGED. NO MEDICATION CHANGES MADE. PATIENT HAS AN APPOINTMENT SCHEDULED WITH PCP IN 2 DAYS, DUE FOR LABS TODAY AFTER NV. VSS, LS CLEAR, NO EDEMA, LBP /10 TAKING APAP PRN, DISCUSED ALT HEAT/COLD. PATIENT PARTICIPATED IN CONVERSATION,HAS CLEAR UNDERSTANDING OF ALL DISCUSSION TOPICS. EDUCATION: REVIEWED SIGNS AND SYMPTOMS OF CHF EXACERBATION THAT WOULD WARRANT IMMEDIATE MEDICAL ATTENTION, DAILY AM WEIGHTS, ALTERNATING HEAT/COLD FOR PAIN RELIEF INTERVENTIONS NEEDED AT NEXT VISIT: ASSESSMENT TEACHING COMMUNICATION WITH MD: Susanne NYE MD APPOINTMENT: 10/22 PCP PT AND CAREGIVER INSTRUCTED TO CALL [facility] WITH ANY QUESTIONS OR CONCERNS AND/OR CHANGES IN CONDITION.</paragraph> Encounters Start Date/Time End Date/Time Encounter Type Admission Type Attending [facility] Care Facility Care Department Encounter ID Discharge Date Discharge Status Discharge Condition Discharge Reason Percent Goals Met 2024-09-19 00:00:00 2024-11-17 00:00:00 Outpatient JONAH JUÁREZ [facility] [id number] 51.06
== END 2024-10-26 15:03 | disposition home or self-care (01) ==
LOC: HO.HMGCX 15:02
PROVIDERS: PCP Internal Medicine; Visit Provider Physician Assistant Medical
DX: Z00.00 Encounter for general adult medical examination without abnormal findings (principal); I50.43 Acute on chronic combined systolic (congestive) and diastolic (congestive) heart failure; I34.0 Nonrheumatic mitral (valve) insufficiency; R60.0 Localized edema; Z86.79 Personal history of other diseases of the circulatory system
CPT/HCPCS: 36415; 71046; 80053; 83880; 84439; 84443; 85025

== ENCOUNTER → 2024-10-26 15:26 | Outpatient (BNV) | payer MEDICARE, SELFPAY | PROVIDERS: PCP Internal Medicine; Visit Provider Radiology Diagnostic Radiology | DX: I51.7 Cardiomegaly (principal) | CPT/HCPCS: 71046 ==

== ENCOUNTER → 2024-10-27 12:19 | Outpatient (BNV) | payer MEDICARE, SELFPAY | PROVIDERS: PCP Internal Medicine; Visit Provider Internal Medicine | DX: I50.20 Unspecified systolic (congestive) heart failure (principal) | CPT/HCPCS: 99223; 99239; 99499 ==

== ENCOUNTER → 2024-10-27 16:18 | Outpatient (BNV) | payer MEDICARE, SELFPAY | PROVIDERS: PCP Internal Medicine; Visit Provider Radiology Diagnostic Radiology | DX: D64.9 Anemia, unspecified (principal) | CPT/HCPCS: 36561; 76937; 77001; 99152 ==

== ENCOUNTER 2024-10-27 17:28 | Observation (INO) | payer MEDICARE, SELFPAY ==
--- OUTSIDE RECORDS SUMMARY | 2024-10-09 10:57 | XMS_ITS | Encounter Summary ---
Author Organization [facility] Address [address] [place] [address] Care Team Providers Care Card Decorator Name Role Phone John Avina DO Primary Care Provider [phone] Encounter Details Date Type Department Care Team (Late st Contact Info) Description 06/10/[address] [facility] - Main Lab [address] [facility] [place] [address] Arianna Iraheta PA [address] [place], [place] [phone] Dysuria Social History Tobacco Use Types Packs/Day [...] ssp pneumoniae(A) RIC 06/12/2024 11:01 AM EST [facility] ([facility] Comment: This is an edited result. [...] MICROBIOLOGY - GENERAL ORD ERABLES Final Result [facility] ([facility] HOSPITAL LAB [address] [place] [address], documented in this encounter Visit Diagnoses Diagnosis Dysuria documented in this encounter Care Teams Card Decorator Relationship Specialty Start Date End Date John Avina DO [address] [place] [phone] PCP - General Internal Medicine 06/10/24 documented as of this encounter
[2024-10-27] VITALS (26 sets, daily range): BP systolic 120–160; BP diastolic 45–88; PULSE 67–95; RESP 9–19; TEMP 35.9–37.2; O2SAT 89–100; BMI 24.0; BMI 24.2
--- NOTE | ~2024-10-27 | XR_ITS ---
EXAMINATION: XR CHEST CLINICAL INFORMATION: r sided mid to upper pleuritic pain COMPARISON: 1 day ago TECHNIQUE: Frontal view of the chest was obtained. FINDINGS: There is a left-sided anastasia catheter. Catheter descends along the left mediastinum and crosses midline to the region of the superior vena cava. There is cardiomegaly. There is linear atelectasis in the mid third right lung zone There is increasing density in the left lung base XR/XR chest 1V IMPRESSION: Increasing density in the left lung base could represent pneumonia or atelectasis. [place]-A-Cath terminates in the superior vena cava. Increasing linear atelectasis radiating from the right hilum. Cardiomegaly. Electronically signed by: Carter Dia MD 10/27/2024 05:40 PM EDT
--- NOTE | ~2024-10-27 | CT_ITS ---
CLINICAL HISTORY: rule out mediastinal bleed CT chest with contrast Comparison: CT/SR - CT ANGIO CHEST PE PROTOCOL - 12/13/23 13:33 EDT Findings: Motion and streak artifact limit evaluation. Cardiomegaly without significant pericardial effusion. Coronary artery calcifications. No central or large proximal pulmonary emboli. Remaining pulmonary arteries are poorly opacified, not well evaluated. No active contrast extravasation specifically in the mediastinum. Left chest port with scattered air around the left anterior chest wall, question recent placement, should be correlated clinically. No discrete collections. Scattered clips in the right breast with soft tissue nodularity. This may be further evaluated with mammogram/ultrasound if indicated. Atelectasis with small right and trace left bilateral effusions. Cystic focus in the mid pancreatic body measuring 1.1 cm. Differentials include pancreatic cysts, pseudocysts, mucinous/cystic neoplasms or IPMN. Follow-up dynamic pancreas MRI protocol may be helpful. Exophytic solid-appearing mass lesion in the right kidney measuring 2.8 cm partially evaluated. Findings concerning for renal cell carcinoma. Recommend dynamic renal MRI protocol. Osteopenia with diffuse multilevel spondylosis. Diffuse atheromatous plaque disease throughout the aorta and branch vessels, without aneurysmal dilatation. IMPRESSION: 1. No central or large proximal pulmonary emboli. Remaining pulmonary arteries are poorly opacified, not well evaluated. 2. Atelectasis with small right and trace left bilateral effusions. 3. Additional findings described, please see above. This document has been electronically signed by: Edwardo Martinez MD on 10/27/2024 18:49:48
--- NOTE | ~2024-10-27 | IR_ITS ---
CLINICAL HISTORY: Anemia. The patient presents to interventional radiology for placement of a port for long-term intravenous access. PROCEDURES: 1. Real-time ultrasound-guided access into the left internal jugular vein after documentation of selected vessel patency, and permanent image storing in the patient records. 2. Placement of a 6.6 Samoan single-lumen port. CLINICIAN: Juanito Chun NP MEDICATIONS: - Versed , Fentanyl , Lidocaine 1% SQ -Antibiotics: Ancef 2g -For additional details, please see nursing flowsheet. Complications: None. Estimated blood loss: <5 ml Specimens: None. Contrast: None. Fluoroscopy time: 3.6 min MODERATE SEDATION TIME: 44 min PROCEDURE NOTE: The procedure, risks, benefits, and alternatives were carefully explained to the patient and written informed consent was obtained. The patient was placed supine on the fluoroscopy table. A timeout was performed. The left neck and chest was prepped and draped in usual sterile fashion. Maximum barrier technique was utilized. Local anesthesia was administered to the access site with 1% lidocaine. Under ultrasound guidance, the right internal jugular vein was accessed with a 5 fr micropuncture set. A 0.035 in wire was advanced into the IVC. A peel-away sheath was advanced over the wire and into the SVC, and the wire was removed. Next, subcutaneous lidocaine was administered to the chest. The port pocket was created after the skin incision, utilizing blunt dissection. Using blunt dissection, a subcutaneous tunnel was created that connects from the port pocket to the venotomy site. Through the peel-away sheath, the 6.6 Samoan port catheter was placed. Please see nursing flowsheet for tending the patient's airway.Due to the patient's vascular anatomy, we had to pull back the catheter and use a stiff guidewire to traverse into the inferior vena cava. A new peel-away sheath was introduced over the wire and the catheter was again placed with success. The catheter position was verified with fluoroscopy to be at the superior vena cava/right atrial junction. The port was connected to the catheter and was placed in the pocket. The port incision site was closed with interrupted 3-0 Vicryl subcutaneous sutures and surgical glue. Prior to closing the skin, 1 g of Ancef solution was placed in the pocket. The port was tested, flushed, and packed with heparin per routine protocol. The patient tolerated the procedure well. The patient was stable after the procedure and was transferred to the PACU. The procedure was performed under moderate sedation and with a dedicated nurse with continuous monitoring of vital signs. A permanent image of the ultrasound the neck and fluoroscopic image of the chest was saved and sent to PACS. FINDINGS: 1. Patent left internal jugular vein 2. Placement of a 6.6 Samoan single lumen port. 3. Port flushes and aspirates very well with a 10 mL syringe. No pneumothorax. IR/IR cvc insert tunnel w prt/director of hospitality IMPRESSION: Placement of a 6.6 Samoan single-lumen port. PLAN: - The patient will be discharged home when stable by sedation protocol. - Port may be used immediately. This procedure was performed by Juanito Chun NP and directly supervised by Bienvenido Long M.D. Electronically signed by: Bienvenido Long MD 10/29/2024 04:57 PM EDT
[2024-10-27 13:05] LABS: MANUAL DIFF FLAG NO
[2024-10-27 13:08] LABS: Hematocrit 24.6 % (37.0-47.0); Hemoglobin 8.2 g/dl (12.0-16.0); Imm Gran Abs Auto 0.04 X10*3/uL (0.00-0.03); Imm Gran Pct Auto 0.5 % (0.0-0.4); Lymphocytes Absolute Auto 1.4 X10*3/uL (1.2-4.9); Mean Corpuscular HGB Conc 33.3 g/dl (31.0-35.0); Mean Corpuscular Hemoglobin 35.0 pg (27.0-33.0); Mean Corpuscular Volume 105.1 fL (80.0-98.0); NRBC Abs Auto 0.000 X10*3/uL (0.0-0.012); NRBC Pct Auto 0.0 /100WBC (0.0-0.2); Platelet Count 183 X10*3/uL (160-400); Red Blood Count 2.34 X10*6/uL (4.20-5.50); White Blood Count 8.7 X10*3/uL (4.8-10.8)
[2024-10-27 13:13] LABS: INTERNATIONAL NORM RATIO 1.0 (0.9-1.1); Prothrombin Time 11.3 SEC (10.9-12.4)
[2024-10-27 13:16] LABS: Partial Thromboplastin Time 31.0 SEC (26.0-36.8)
[2024-10-27 13:29] LABS: Glucose, Whole Blood 98 mg/dL (60-115)
--- NOTE | 2024-10-27 14:08 | PC.NURSE ---
Report given to Darline Carreon RN.
--- NOTE | 2024-10-27 17:03 | PC.NURSE ---
BERT Solomon at bedside - CXR order placed.
--- NOTE | 2024-10-27 17:18 | PC.NURSE ---
Radiology at bedside for stat cxr
--- NOTE | 2024-10-27 17:39 | P.HPHOSP_ITS ---
History of Present Illness Date of Service: 10/27/24 Chief Complaint: possible svc perforation 79F PMH chronic systolic CHF with EF of 35-40%, CKD 3, multiple myeloma, chronic anemia with frequent transfusions, coronary artery disease, history of breast cancer status post right lumpectomy, hyperlipidemia, osteoarthritis, hypertension, gout presenting from pacu after concern for possible venous preparation during port placement which was being placed for frequent transfusions. Postoperatively patient denies any chest pain no shortness a breath. Review of Systems 2 Review of Systems: Yes all other systems are reviewed and are negative [facility] Medical History CAD (coronary atherosclerotic disease) Osteoarthritis Hypothyroidism Multiple myeloma CKD stage 3 due to type 2 diabetes mellitus Impingement syndrome, shoulder Left shoulder pain CHF (congestive heart failure) Closed left hip fracture CAD (coronary artery disease) CHF (congestive heart failure) Cervix prolapsed into vagina History of blood transfusion (~02/01/23) Diabetes mellitus HFrEF (heart failure with reduced ejection fraction) Cardiomyopathy Normal colonoscopy Type 2 diabetes mellitus Diverticulosis Irritable bowel syndrome Pulmonary emboli GERD (gastroesophageal reflux disease) Nephrolithiasis Hypoparathyroidism Papillary thyroid carcinoma HTN (hypertension) Polymyalgia rheumatica Hyperglycemia Chronic anemia Anemia Family History Sister CHF (congestive heart failure) Daughter Breast cancer Son Kidney stones Surgical History Status post hip surgery (~08/04/23) History of colonoscopy (~07/30/18) Stented coronary artery Breast mass, right H/O endoscopy History of cholecystectomy H/O total thyroidectomy Social History Household Members: Family Household Members Other:: son Housing: House Do you presently have visiting nurse or other home services: No Alcohol intake: current Alcohol intake frequency: does not drink Patient Tobacco Use Status: Former Tobacco user e-Cigarette/Vaping Use: Never Used Second Hand Smoke Exposure: No Advance Directives: No Advance Directives Information Provided: Yes Advance Directives Date on File: 06/27/24 service: No Current occupational status: retired Current occupation: Right Handed Cognitive needs: Yes (cane) Hearing needs: No Vision needs: Yes (reading glasses) Meds Allergies Allergy/AdvReac Type Severity Reaction Status Date / Time diphenhydramine (From Allergy Intermediate Dizziness Verified 10/27/24 12:54 Benadryl) esomeprazole (From NEXIUM) Allergy Intermediate CHEST PAIN Verified 10/27/24 12:54 omeprazole (From PRILOSEC) Allergy Intermediate CHEST PAIN Verified 10/27/24 12:54 Active Medications: Current Medications Acetaminophen (Acetaminophen 325 Mg Tablet) 650 mg PO Q6H PRN PRN Reason: Pain, Mild 1-3,fever,headache Allopurinol (Allopurinol 300 Mg Tablet) 300 mg PO DAILY [facility] Ascorbic Acid (Ascorbic Acid 500 Mg Tablet) 500 mg PO DAILY [facility] Bumetanide (Bumetanide 1 Mg Tablet) 1 mg PO BID [facility]; Protocol Calcium Carbonate (Calcium Carbonate 750 Mg Tab.Chew) 750 mg PO Q4H PRN PRN Reason: Heartburn Carvedilol (Carvedilol 6.25 Mg Tablet) 6.25 mg PO BID [facility]; Protocol Cyanocobalamin (Cyanocobalamin (Vitamin B-12) 1,000 Mcg Tablet) 5,000 mcg PO DAILY [facility] Folic Acid (Folic Acid 1 Mg Tablet) 1 mg PO DAILY [facility] Hydralazine HCl (Hydralazine Hcl 25 Mg Tablet) 25 mg PO BID [facility]; Protocol Levothyroxine Sodium (Levothyroxine Sodium 112 Mcg Tablet) 112 mcg PO MOTUTHFRSA@0600 [facility] Magnesium Hydroxide (Milk Of Magnesia 30 Ml Oral.Susp) 30 ml PO DAILY PRN PRN Reason: Constipation Melatonin (Melatonin 3 Mg Tablet) 6 mg PO BEDTIME PRN PRN Reason: Insomnia Naloxone HCl (Naloxone Hcl 0.4 Mg/Ml Vial) 0.4 mg IVPUSH ONCE PRN PRN Reason: RESP DISTRESS Stop: 10/27/24 21:00 Non-Formulary Medication (Biotin) 1 mg PO DAILY [facility] Non-Formulary Medication (Cranberry) 500 mg PO DAILY [facility] Non-Formulary Medication (Rosuvastatin) 20 mg PO DAILY [facility] Non-Formulary Medication (Vitamin E (Dl, Acetate)) 450 mg PO DAILY [facility] Sodium Chloride (0.9 % Sodium Chloride Flush 3 Ml Syringe) 3 ml IVFLUSH QSHIFT [facility] Vitamin D (Cholecalciferol (Vitamin D3) 25 Mcg Tablet) 50 mcg PO DAILY [facility] Home Medications ?Medication ?Instructions ?Recorded ?Confirmed ?Last Taken ?Type cholecalciferol (vitamin D3) 50 50 mcg PO DAILY 10/27/24 10/11/24 History mcg (2,000 unit) tablet (Vitamin D3) cyanocobalamin (vitamin B-12) 5,000 mcg PO DAILY 02/2810/27/24 10/11/24 History 5,000 mcg disintegrating tablet folic acid 1 mg tablet 1 mg PO DAILY 02/29/2010/2710/26/24 History cranberry 500 mg capsule 500 mg PO DAILY 11/20/2212/1410/11/24 History ascorbic acid (vitamin C) 500 mg 500 mg PO DAILY 09/2210/27/24 10/11/24 History tablet (Vitamin C) biotin 1 mg tablet 1 mg PO DAILY 06/26/2410/2710/11/24 History calcium carbonate (Calcium 600) 600 mg PO DAILY 10/27/24 10/11/24 History exemestane 25 mg tablet 25 mg PO DAILY 06/26/2412/1410/11/24 History hydralazine 25 mg tablet 25 mg PO BID 06/26/2410/26/24 History vitamin E (dl, acetate) 450 mg 450 mg PO DAILY 5 10/27/24 10/11/24 History (1,000 unit) capsule d-mannose 500 mg capsule 500 mg PO DAILY 10/22/2412/14 Unknown History acetaminophen 1,000 mg PO DAILY PRN Pain 0 10/27/24 10/27/24 10/27/24 History bumetanide 1 mg tablet 1 mg PO BID 10/27/24 10/27/24 History Physical Exam 2 Vital Signs and Narrative: Vital Signs: Last Vital Signs Temp 97 F 10/27/24 16:40 Pulse 67 10/27/24 17:20 Resp 16 10/27/24 17:20 BP 127/70 10/27/24 17:20 Pulse Ox 94 10/27/24 17:20 O2 Del Method Nasal Cannula wit h Capnography 10/27/24 17:20 O2 Flow Rate 2 10/27/24 17:20 FiO2 44 10/27/24 17:05 BMI result Body Mass Index 24.0 General: AO X 3, no acute distress Resp: CTA bilateral, no accessory muscles used CVS: S1,S2,RRR GI: soft, non tender, non distended Neuro: motor grossly intact, alert Psych: appropriate affect, appropriate insight Results Labs 10/27/24 13:01 Labs: Laboratory Results - last 24 hr 10/27/24 10/27/24 13:01 13:23 MCV 105.1 H MCH 35.0 H MCHC 33.3 RDW 17.3 H Plt Count 183 MPV 9.4 Immature Gran % (Auto) 0.5 H Neut % (Auto) 71.1 Lymph % (Auto) 16.5 L Ripley % (Auto) 9.4 Eos % (Auto) 2.0 Baso % (Auto) 0.5 Lymph # (Auto) 1.4 Ripley # (Auto) 0.8 Eos # (Auto) 0.2 Baso # (Auto) 0.0 Abs Immat Gran (auto) 0.04 H Absolute Neuts (auto) 6.2 Absolute Nucleated RBC 0.000 Nucleated RBC % (auto) 0.0 PT 11.3 INR 1.0 APTT 31.0 POC Glucose 98 Assessment and Plan (1) HFrEF (heart failure with reduced ejection fraction): Status: Acute Plan 79F PMH chronic systolic CHF with EF of 35-40%, CKD 3, multiple myeloma, chronic anemia with frequent transfusions, coronary artery disease, history of breast cancer status post right lumpectomy, hyperlipidemia, osteoarthritis, hypertension, gout presenting from pacu after concern for possible venous preparation during port placement Possible SVC perforatoration Check CT chest with contrast Monitor, interventional radiology follow up Chronic systolic CHF Continue Bumex, carvedilol CKD 3 Monitor closely after contrast CAD Hold Plavix for now DVT prophylaxis-mechanical due to possible perforation full code Quality Stroke Does the patient have a stroke diagnosis?: No VTE Prior VTE?: No VTE Risk Level:: Medical - moderate - high VTE Device Contraindication: N/A - Device Ordered VTE Drug Contraindication: Treatment Not Tolerated
[2024-10-27] MEDS: iohexoL 350 MG/ML 100 ML INFUS..BTL 65 ML IV (18:27)
--- NOTE | 2024-10-27 19:06 | PC.NURSE ---
YOVANA Solomon updated family regarding patient remaining inpatient and status
--- NOTE | 2024-10-27 22:02 | PHA.MEDREC ---
Pharmacy Consult ? Medication Reconciliation Rn has completed the medication reconciliation, pharmacy reviewed. Patient had list with her but was somewhat outdated. Went up and spoke with patient who knew all medications and how often she takes them. Does not take levothyroxine on wed and sun.
[2024-10-28] VITALS (13 sets, daily range): BP systolic 107–130; BP diastolic 56–68; PULSE 67–81; RESP 16–19; TEMP 36.2–37.1; O2SAT 95–100
[2024-10-28] MEDS: 0.9 % Sodium Chloride Flush 3 ML SYRINGE IVFLUSH ×2 (00:40→08:22)
[2024-10-28 07:22] LABS: Mean Corpuscular HGB Conc 33.5 g/dl (31.0-35.0); Mean Corpuscular Hemoglobin 35.6 pg (27.0-33.0); Mean Corpuscular Volume 106.4 fL (80.0-98.0); NRBC Abs Auto 0.000 X10*3/uL (0.0-0.012); NRBC Pct Auto 0.0 /100WBC (0.0-0.2); Platelet Count 146 X10*3/uL (160-400); Red Blood Count 1.88 X10*6/uL (4.20-5.50); White Blood Count 7.5 X10*3/uL (4.8-10.8)
[2024-10-28 07:33] LABS: Anion Gap 15 (12-20); Blood Urea Nitrogen 44 mg/dL (9-16); Calcium 8.3 mg/dL (8.4-10.2); Carbon Dioxide 27 mmol/L (22-29); Chloride 103 mmol/L (96-108); Creatinine Clr Calc Pharmacy 18.2; Estimated Glomerular Filt Rate 23; Magnesium 2.3 mg/dL (1.6-2.6); Potassium 3.3 mmol/L (3.3-5.1); Sodium 142 mmol/L (135-145)
[2024-10-28 07:35] LABS: Hematocrit 20.0 % (37.0-47.0); Hemoglobin 6.7 g/dl (12.0-16.0)
[2024-10-28] MEDS: Vitamin E (Dl,Tocopheryl Acet) 180 MG (400 UNIT) CAPSULE 360 MG PO (08:20)
--- NOTE | 2024-10-28 09:49 | P.PNIM_ITS ---
Subjective Subjective Date of Service: 10/28/24 Interval History: no complaints Physical Exam 2 Vital Signs: Vital Signs: Last Vital Signs Temp 97.5 F 10/28/24 07:17 Pulse 67 10/28/24 07:17 Resp 16 10/28/24 07:17 BP 130/66 10/28/24 07:17 Pulse Ox 99 10/28/24 07:17 O2 Del Method Nasal Cannula 10/28/24 07:17 O2 Flow Rate 3 10/28/24 07:17 FiO2 44 10/27/24 17:05 BMI result Body Mass Index 24.2 Appearance: Alert.? Oriented X3.? not in distress. cvs: rrr, [id number] . res: clear to auscultation ,no rales or wheezing abd: no rebound or guarding ,nt, bs present. ext pulses present , no cyanosis . neuro: axo3 , nonfocal. Objective Data Active Medications Acetaminophen (Acetaminophen 325 Mg Tablet) 650 mg PO Q6H PRN PRN Reason: Pain, Mild 1-3,fever,headache Allopurinol (Allopurinol 300 Mg Tablet) 300 mg PO DAILY [facility] Last Admin: 10/28/24 08:22 Dose: 300 mg Documented By: ANJUM Ascorbic Acid (Ascorbic Acid 500 Mg Tablet) 500 mg PO DAILY [facility] Last Admin: 10/28/24 08:19 Dose: 500 mg Documented By: ANJUM Atorvastatin Calcium (Atorvastatin Calcium 80 Mg Tablet) 80 mg PO DAILY [facility] Last Admin: 10/28/24 08:19 Dose: 80 mg Documented By: ANJUM Bumetanide (Bumetanide 1 Mg Tablet) 1 mg PO BID [facility]; Protocol Last Admin: 10/28/24 08:19 Dose: 1 mg Documented By: ANJUM Calcium Carbonate (Calcium Carbonate 750 Mg Tab.Chew) 750 mg PO Q4H PRN PRN Reason: Heartburn Carvedilol (Carvedilol 6.25 Mg Tablet) 6.25 mg PO BID [facility]; Protocol Last Admin: 10/28/24 08:20 Dose: 6.25 mg Documented By: ANJUM Cyanocobalamin (Cyanocobalamin (Vitamin B-12) 1,000 Mcg Tablet) 5,000 mcg PO DAILY [facility] Last Admin: 10/28/24 08:20 Dose: 5,000 mcg Documented By: ANJUM Diphenhydramine HCl (Diphenhydramine Hcl 50 Mg/Ml Vial) 25 mg IVPUSH Q6H PRN PRN Reason: transfusion Folic Acid (Folic Acid 1 Mg Tablet) 1 mg PO DAILY [facility] Last Admin: 10/28/24 08:19 Dose: 1 mg Documented By: ANJUM Hydralazine HCl (Hydralazine Hcl 25 Mg Tablet) 25 mg PO BID [facility]; Protocol Last Admin: 10/28/24 08:19 Dose: 25 mg Documented By: ANJUM Levothyroxine Sodium (Levothyroxine Sodium 112 Mcg Tablet) 112 mcg PO MOTUTHFRSA@0600 [facility] Magnesium Hydroxide (Milk Of Magnesia 30 Ml Oral.Susp) 30 ml PO DAILY PRN PRN Reason: Constipation Melatonin (Melatonin 3 Mg Tablet) 6 mg PO BEDTIME PRN PRN Reason: Insomnia Sodium Chloride (0.9 % Sodium Chloride Flush 3 Ml Syringe) 3 ml IVFLUSH QSHIFT [facility] Last Admin: 10/28/24 08:22 Dose: 3 ml Documented By: ANJUM Vitamin D (Cholecalciferol (Vitamin D3) 25 Mcg Tablet) 50 mcg PO DAILY [facility] Last Admin: 10/28/24 08:20 Dose: 50 mcg Documented By: ANJUM Vitamin E (Vitamin E (Dl,Tocopheryl Acet) 180 Mg (400 Unit) Capsule) 360 mg PO DAILY [facility] Last Admin: 10/28/24 08:20 Dose: 360 mg Documented By: ANJUM Labs 10/28/24 06:41 10/28/24 06:41 Labs: Laboratory Results - last 24 hr 10/27/24 10/27/24 10/28/24 13:01 13:23 06:41 MCV 105.1 H 106.4 H MCH 35.0 H 35.6 H MCHC 33.3 33.5 RDW 17.3 H 17.2 H Plt Count 183 146 L MPV 9.4 9.8 Immature Gran % (Auto) 0.5 H Neut % (Auto) 71.1 Lymph % (Auto) 16.5 L Teller % (Auto) 9.4 Eos % (Auto) 2.0 Baso % (Auto) 0.5 Lymph # (Auto) 1.4 Teller # (Auto) 0.8 Eos # (Auto) 0.2 Baso # (Auto) 0.0 Abs Immat Gran (auto) 0.04 H Absolute Neuts (auto) 6.2 Absolute Nucleated RBC 0.000 0.000 Nucleated RBC % (auto) 0.0 0.0 PT 11.3 INR 1.0 APTT 31.0 Anion Gap 15 Estim Creat Clear Calc 18.2 Estimated GFR 23 POC Glucose 98 Random Glucose 120 H Calcium 8.3 L D Magnesium 2.3 Blood Type Antibody Screen Crossmatch ([facility]) 10/28/24 08:37 MCV MCH MCHC RDW Plt Count MPV Immature Gran % (Auto) Neut % (Auto) Lymph % (Auto) Teller % (Auto) Eos % (Auto) Baso % (Auto) Lymph # (Auto) Teller # (Auto) Eos # (Auto) Baso # (Auto) Abs Immat Gran (auto) Absolute Neuts (auto) Absolute Nucleated RBC Nucleated RBC % (auto) PT INR APTT Anion Gap Estim Creat Clear Calc Estimated GFR POC Glucose Random Glucose Calcium Magnesium Blood Type B Positive Antibody Screen NEGATIVE Crossmatch ([facility]) See Detail Assessment and Plan (1) HFrEF (heart failure with reduced ejection fraction): Status: Acute Plan 79F PMH chronic systolic CHF with EF of 35-40%, CKD 3, multiple myeloma, chronic anemia with frequent transfusions, coronary artery disease, history of breast cancer status post right lumpectomy, hyperlipidemia, osteoarthritis, hypertension, gout presenting from pacu after concern for possible venous preparation during port placement Possible SVC perforatoration CT chest without extravasation Monitor, interventional radiology follow up acute on chronic anemia multifactorial d/w hematology, will transfuse 2 units prbc extra diuretic with transfusion Chronic systolic CHF Continue Bumex, carvedilol CKD 3 Monitor closely after contrast CAD Hold Plavix for now DVT prophylaxis-mechanical due to possible perforation full code reason for continued hospitalization:transfusing Quality Stroke Does the patient have a stroke diagnosis?: No VTE Prior VTE?: No VTE Risk Level:: Medical - moderate - high VTE Device Contraindication: N/A - Device Ordered VTE Drug Contraindication: Treatment Not Tolerated
--- NOTE | 2024-10-28 09:53 | P.DS_ITS ---
DS: Providers Provider Date of Service: 10/28/24 Date of admission: 10/27/24 17:28 Date of discharge: 10/28/24 Primary care physician: John Avina DO DS: Diagnosis Discharge Diagnosis (1) HFrEF (heart failure with reduced ejection fraction): Status: Acute DS: Summary Hospital Course Hospital Course: from initial hpi: 79F PMH chronic systolic CHF with EF of 35-40%, CKD 3, multiple myeloma, chronic anemia with frequent transfusions, coronary artery disease, history of breast cancer status post right lumpectomy, hyperlipidemia, osteoarthritis, hypertension, gout presenting from pacu after concern for possible venous preparation during port placement which was being placed for frequent transfusions. Postoperatively patient denies any chest pain no shortness a breath. hospital course: Patient was observed overnight for possible SVC perforation, CT chest did not show any evidence of extravasation. Was seen by interventional radiology. For acute on chronic anemia which is multifactorial case was discussed with Hematology recommended transfusing 2 units PRBC. Patient will follow up outpatient with Hematology. For chronic systolic CHF was continued on Bumex and carvedilol. For CKD 3 creatinine remained about 2. For coronary artery disease Plavix initially held postprocedure will be restarted on discharge. Time Attestation Discharge Coordination Time (in mins): 34 Quality: Safe Use of Opioids Does Pt have an Active Cancer Diagnosis on the Problem List?: No Quality: Stroke Does the patient have a stroke diagnosis?: No Physical Exam Vital Signs: Vital Signs: Last Vital Signs Temp 97.5 F 10/28/24 07:17 Pulse 67 10/28/24 07:17 Resp 16 10/28/24 07:17 BP 130/66 10/28/24 07:17 Pulse Ox 99 10/28/24 07:17 O2 Del Method Nasal Cannula 10/28/24 07:17 O2 Flow Rate 3 10/28/24 07:17 FiO2 44 10/27/24 17:05 BMI result Body Mass Index 24.2 Appearance: Alert.? Oriented X3.? not in distress. cvs: rrr, [id number] . res: clear to auscultation ,no rales or wheezing abd: no rebound or guarding ,nt, bs present. ext pulses present , no cyanosis . neuro: axo3 , nonfocal. DS: Data Data Completed and Pending Completed studies during hospitalization [Text1]: Procedures Transfusion of Nonautologous Red Blood Cells into Peripheral Vein, Percutaneous Approach (06/29/24) Labs on day of discharge: Laboratory Results - last 24 hr 10/27/24 10/27/24 10/28/24 13:01 13:23 06:41 WBC 8.7 7.5 RBC 2.34 L 1.88 L Hgb 8.2 L 6.7 L* Hct 24.6 L 20.0 L* MCV 105.1 H 106.4 H MCH 35.0 H 35.6 H MCHC 33.3 33.5 RDW 17.3 H 17.2 H Plt Count 183 146 L MPV 9.4 9.8 Immature Gran % (Auto) 0.5 H Neut % (Auto) 71.1 Lymph % (Auto) 16.5 L [place] % (Auto) 9.4 Eos % (Auto) 2.0 Baso % (Auto) 0.5 Lymph # (Auto) 1.4 [place] # (Auto) 0.8 Eos # (Auto) 0.2 Baso # (Auto) 0.0 Abs Immat Gran (auto) 0.04 H Absolute Neuts (auto) 6.2 Absolute Nucleated RBC 0.000 0.000 Nucleated RBC % (auto) 0.0 0.0 PT 11.3 INR 1.0 APTT 31.0 Sodium 142 Potassium 3.3 Chloride 103 Carbon Dioxide 27 Anion Gap 15 BUN 44 H Creatinine 2.08 H Estim Creat Clear Calc 18.2 Estimated GFR 23 POC Glucose 98 Random Glucose 120 H Calcium 8.3 L D Magnesium 2.3 Blood Type Antibody Screen Crossmatch ([facility]) 10/28/24 08:37 WBC RBC Hgb Hct MCV MCH MCHC RDW Plt Count MPV Immature Gran % (Auto) Neut % (Auto) Lymph % (Auto) [place] % (Auto) Eos % (Auto) Baso % (Auto) Lymph # (Auto) [place] # (Auto) Eos # (Auto) Baso # (Auto) Abs Immat Gran (auto) Absolute Neuts (auto) Absolute Nucleated RBC Nucleated RBC % (auto) PT INR APTT Sodium Potassium Chloride Carbon Dioxide Anion Gap BUN Creatinine Estim Creat Clear Calc Estimated GFR POC Glucose Random Glucose Calcium Magnesium Blood Type B Positive Antibody Screen NEGATIVE Crossmatch ([facility]) See Detail Discharge Plan Discharge Anticipated Discharge Date/Time: 10/28/24 09:51 Patient Disposition: Home, Self-Care Discharge Diagnosis: anemia Referrals: Juliann Tse MD [Physician, Hematology & Oncology] - 1 Week John Avina DO [Primary Care Provider, Medical] - 1 Week Discharge Medications: Continued clopidogrel 75 mg tablet 75 mg PO DAILY 90 Days Qty: 90 1RF carvedilol 6.25 mg tablet 6.25 mg PO BID 90 Days Qty: 180 1RF allopurinol 300 mg tablet 300 mg PO DAILY Qty: 90 3RF folic acid 1 mg Tablet 1 mg PO DAILY cholecalciferol (vitamin D3) [Vitamin D3] 50 mcg (2,000 unit) Tablet 50 mcg PO DAILY cyanocobalamin (vitamin B-12) 5,000 mcg Tablet,Disintegrating 5,000 mcg PO DAILY ascorbic acid (vitamin C) [Vitamin C] 500 mg Tablet 500 mg PO DAILY calcium carbonate [Calcium 600] 600 mg calcium (1,500 mg) Tablet 600 mg PO DAILY exemestane 25 mg Tablet 25 mg PO DAILY Rx Instructions: must administer after a meal biotin 1 mg Tablet 1 mg PO DAILY vitamin E (dl, acetate) 450 mg (1,000 unit) Capsule 450 mg PO DAILY hydralazine 25 mg tablet 25 mg PO BID Protocol: Hold for SBP< HOLD for SBP < : 90 bumetanide 1 mg tablet 1 mg PO BID Rx Instructions: CHF education given-if gains weight 2 lb or more in a week or sob-will need outpatient bumex as above. acetaminophen 500 mg 1,000 mg PO DAILY PRN (Reason: Pain) bumetanide 1 mg Tablet 1 mg PO DAILY PRN (Reason: Weight Gain) levothyroxine 100 mcg tablet 112 mcg PO MOTUTHFRSA@0600 90 Days Qty: 65 1RF Rx Instructions: skips sundays and wednesdays cranberry 500 mg capsule 500 mg PO DAILY Rx Instructions: administer with meals rosuvastatin 20 mg tablet 20 mg PO DAILY Qty: 90 3RF d-mannose 500 mg capsule 500 mg PO DAILY Discharge Orders: Discharge Order (Routine); Ordered 10/28/24 Ordered By: Pranav Tolbert Diet: Advance to usual diet Activity on Discharge: As tolerated Stand Alone Forms: Patient Portal Discharge page Print Language: Luxembourger Care Plan Goals: recovery Health Concerns: anemia Plan of Treatment: follow up with hematology Assessment: see above
[2024-10-28] MEDS: Bumetanide 1 MG/4 ML VIAL 0.5 MG IVPUSH (14:36)
--- NOTE | 2024-10-28 15:46 | MHC.CM.PN ---
BO 10/28/24, EMR REVIEWED, CM MET W/PT WHO REPORTS HER SON LIVES W/HER, SHE HAS A CANE, WALKER, WC, SHOWER CHAIR, GRAB BARS IN BR, ALL THE THINGS SHE NEEDS AT HOME, PT ALSO REPORTS SHE HAS A VNA HOWEVER DOES NOT RECALL NAME, PT'S GOAL IS FOR DC TODAY. PCP VERIFIED DR. LUCIA AND HCP IS TIMOTHY DODGE [phone], COPY REQUESTED PT WILL DC HOME TODAY AFTER TRANSFUSION, PT'S SON FOR TRANSPORT
== END 2024-10-28 19:10 | disposition home health service (06) ==
LOC: HO.IMC 18:50
PROVIDERS: Internal Medicine; Radiology Diagnostic Radiology; Absent Provider Internal Medicine; Admitting Provider Internal Medicine; PCP Internal Medicine; Visit Provider Internal Medicine
DX: I13.0 Hypertensive heart and chronic kidney disease with heart failure and stage 1 through stage 4 chronic kidney disease, or unspecified chronic kidney disease (principal); D63.1 Anemia in chronic kidney disease; N18.30 Chronic kidney disease, stage 3 unspecified; I50.20 Unspecified systolic (congestive) heart failure; E03.9 Hypothyroidism, unspecified; E11.22 Type 2 diabetes mellitus with diabetic chronic kidney disease; C50.911 Malignant neoplasm of unspecified site of right female breast; C90.00 Multiple myeloma not having achieved remission; I25.10 Atherosclerotic heart disease of native coronary artery without angina pectoris; E78.5 Hyperlipidemia, unspecified; Z79.899 Other long term (current) drug therapy
CPT/HCPCS: 36415; 36561; 71045; 71260; 76937; 80048; 82947; 83735; 85025; 85027; 85610; 85730; 86850; 86900; 86901; 86920; 86922; 99152; 99153; 99222; C1769; C1788; J0690; J1200; J1642; J1644; J1939; J2003; J2250; J2312; J2405; J3010; P9016

== ENCOUNTER 2024-11-09 14:59 | Outpatient (REF) | payer MEDICARE, SELFPAY ==
--- OUTSIDE RECORDS SUMMARY | 2024-11-04 23:59 | XMS_ITS | Continuity of Care Document ---
Author Organization [facility] Address [address] [place] [address]- Care Team Providers Care Loading Shovel Oiler Name Role Phone Teena ALVAREZ, Paul Shelton Primary Care Physician [place] [facility] [place]): [place] 11/04/24 [facility] [address] [place] [address]- Attending Physician: Ye SIMPSON, Saira Admitting Physician: Saira Belcher NP Referring Physician: Not on Staff, Referring MD Encounter Type: Pre-OutPatient One Time Allergies, Adverse Reactions, Alerts Substance Criticality Severity Reaction Reaction Severity Status Benadryl 1 Active PriLOSEC heart palpitations A ctive NexIUM heart palpitations A ctive 1IV benadryl causes [...] 4:28:00 PM EDT, Route to Pharmacy Electronically, [facility], Partial fill upon patient request [...] Care Team Personnel Name: Meredith Hammond Position: [facility] Onco RN Member Role: Primary Care Nurse Name: Taya Doshi RN Position: [facility] Hao RN Member Role: Primary Care Nurse Name: Brissa Turner RN Position: S RN Member Role: Primary Care Nurse Name: Kenyatta Be RN Position: S RN Member Role: Primary Care Nurse Name: Juliana Campos RN Position: [facility] Onco RN Member Role: Primary Care Nurse [...] Reference Physician Member Role: PCP Address: [address] [place] [address]- Telecom: Name: Rema Jeffers RN Position: S Onco RN Member Role: Primary Care Nurse Care Team Related Persons Name: KOJO KAPLAN Name: KOJO DODGE Name: JW LIU Insurance Providers Guarantor name: SAVANNAH WASHINGTON [facility] Information #: 1 Payer: MEDICARE B Payer Identifier: Member Number: [id number] Group Number: Subscriber Identifier: [id number] Relationship to Subscriber: self Coverage Type: NA Coverage Verification Date: NA Telecom: NA Address: [facility] Information #: 2 Payer: MEDEX SECONDARY ONLY Payer Identifier: Member Number: [id number] Group Number: Subscriber Identifier: [id number] Relationship to Subscriber: self Coverage Type: Medicare Other Coverage Verification Date: NA Telecom: NA Address:
--- OUTSIDE RECORDS SUMMARY | 2024-11-09 15:30 | XMS_ITS | Encounter Summary ---
Author Organization [facility] Address [address] [phone] Phone Care Team Providers Care Public Service Director Name Role Phone John Avina DO Primary Care Provider [phone] Encounter Details Date Type Department Care Team ([facility] st Contact Info) Description 11/09/2024 3:30 PM EDT Office Visit [facility] [address] [place] [phone] Mejia Soler MD [address] [address] Arrived Social History Tobacco Use Types Packs/Day Years Used Date Smoking Tobacco: Never Assessed Comments Unknown Sex and Gender Information Value Date Recorded Sex Assigned at Not on file Legal Sex Female 4:53 PM EST Gender Identity Not on file Sexual Orientation Not on file documented as of this encounter Last Filed Vital Signs Vital Sign Reading Time Taken Comments Blood Pressure 118/72 11/09/2024 3:24 PM EDT Pulse 88 11/09/2024 3:24 PM EDT Temperature - - Respiratory Rate - - Oxygen Saturation 97% 11/09/2024 3:24 PM EDT Inhaled Oxygen Concentration - - Weight 56.4 kg (124 lb 6.4 oz) 11/09/2024 3:24 P M EDT Height - - Body Mass Index - - documented in this encounter Plan of Treatment Not on file documented as of this encounter Visit Diagnoses Not on filedocumented in this encounter Care Teams Public Service Director Relationship Specialty Start Date End Date John Avina DO [address] [place] [address] PCP - General Internal Medicine 10/23/23 documented as of this encounter
--- OUTSIDE RECORDS SUMMARY | 2024-11-09 15:43 | XMS_ITS | Encounter Summary ---
Author Organization [facility] Address [address] [place] [address] Care Team Providers Care Athletic Scout Name Role Phone John Avina DO Primary Care Provider [phone] Encounter Details Date Type Department Care Team (Late st Contact Info) Description 06/10/2024 Lab Requisition [facility] - Main Lab [address] [facility] [place] [address] Arianna Iraheta PA [address] [place], [place] [id number] Dysuria Social History Tobacco Use Types Packs/Day [...] ssp pneumoniae(A) RIC 06/12/2024 11:01 AM EST [facility] Comment: This is an edited [...] MICROBIOLOGY - GENERAL ORD ERABLES Final Result [facility] H[facility] [address] [place] [address], documented in this encounter Visit Diagnoses Diagnosis Dysuria documented in this encounter Care Teams Athletic Scout Relationship Specialty Start Date End Date John Avina DO [address] [place] [phone] PCP - General Internal Medicine 06/10/24 documented as of this encounter
--- OUTSIDE RECORDS SUMMARY | 2024-11-09 15:43 | XMS_ITS | Clinical Summary ---
Author Organization [facility] Address [address] [facility] [address] [place] [id number] Phone Care Team Providers Care Ultrasound Tester Name Role Phone Aniceto Emery MD Primary Care Provider [phone] Juliann Tse MD Unavailable [phone] Henrry Espino MD Unavailable Allergies Active Allergy Reactions Criticality Noted Date Comments Nexium (Esomeprazole Magnesium) Palpitations,Other (See Comments) Low 05/25/2016 Chest pain Prednisone Unknown 05/25/2016 Listed in past medical records as an existing allergy, but patient reported 05/28/16 she believes she was administered Decadron recently without issue. Clarification/confirma tion needed re: same. Prilosec (Omeprazole) Palpitations,Other (See Comments) Low 05/25/2016 Chest pain Medications levothyroxine (SYNTHROID, LEVOTHROID) 75 MCG tablet Take 75 mcg by mouth every morning. Active allopurinol (ZYLOPRIM) 300 MG tablet Take 300 mg by mouth daily. Active aspirin 81 mg chewable tablet Take 81 mg by mouth daily. Active lisinopril (PRINIVIL,ZESTR IL) 10 MG tablet Take 10 mg by mouth daily. Active oxyCODONE-aceta minophen (PERCOCET) 5-325 mg per tablet Take 2 tablets by mouth daily as needed for pain (specific location in comments). Active GABAPENTIN ORAL Take by mouth as directed. Gabapentin 200mg by mouth QAM and 300mg by mouth QPM Active Active Problems Problem Noted Date Diagnosed Date Hypertension 06/04/2016 Multiple myeloma 05/25/2016 Family History Medical History Relation Comments Breast cancer Daughter Anemia Father Prostate cancer Father Heart disease Mother Heart failure Sister Nephrolithiasis Son Relation Status Comments Daughter Father Mother Sister Son Social History Tobacco Use Types Packs/Day Years Used Date Smoking Tobacco: Former Cigarettes 1 23 1 [phone] Education Answer Date Recorded Are you interested in more education? Not on shelley e 08/17/2022 Are you concerned about learning? Not on file 08/17/2022 No 08/17/2022 No 08/17/2022 Digital Access Answer Date Recorded No 09/17/2022 No 09/17/2022 No 09/17/2022 Reliable internet access at home? Not on file 09/17/2022 Device with a working camera? Not on file Comments Unknown Sex and Gender Information Value Date Recorded Sex Assigned at Not on file Legal Sex Female 2:11 PM EST Gender Identity Not on file Sexual Orientation Not on file Last Filed Vital Signs Vital Sign Reading Time Taken Comments Blood Pressure 154/71 06/04/2016 4:45 PM EST Pulse 84 06/04/2016 4:45 PM EST Temperature 36.7 C (98 F) 06/04/2016 4:45 PM EST Respiratory Rate 16 06/04/2016 4:45 PM EST Oxygen Saturation 98% 06/04/2016 4:45 PM EST Inhaled Oxygen Concentration - - Weight 65.1 kg (143 lb 8.3 oz) 06/04/2016 4:45 P M EST Height 151.9 cm (4' 11.8 ) 06/04/2016 4:45 PM ES T Body Mass Index 28.21 06/04/2016 4:45 PM EST Plan of Treatment Health Maintenance Due Date Last Done Comments Adult Td,Tdap Booster 1945 BLOOD PRESSURE 1946 LIPID PANEL 1946 TSH LEVEL 1946 DEPRESSION SCREENING 1958 SMOKING Hx and SMOKELESS TOBACCO SCREENING 09/07/1959 HEPATITIS C SCREENING 1964 ZOSTER VACCINES (1 of 2) 1965 OSTEOPOROSIS SCREENING INITI AL (ONE-TIME) 09/07/2011 PNEUMOCOCCAL VACCINES (50+ years) (2 of 2 - PCV) 02/15/2017 02/16/2016 CREATININE LEVEL 06/04/2017 06/04/2016 POTASSIUM LEVEL 06/04/2017 06/04/2016 RSV VACCINE (1 - 1-dose 75+ series) 2021 COVID-19 VACCINE (3 - 4-2 5 season) 2023 08/08/2020, 07/16/2020 HEPATITIS A VACCINES Aged Out No long er eligible based on patient's age to complete this topic HIB VACCINES Aged Out No longer eligi ble based on patient's age to complete this topic MENINGOCOCCAL VACCINES (ACWY) Aged Out No longer eligible based on patient's age to complete this topic MENINGOCOCCAL VACCINES (B) Aged Out N o longer eligible based on patient's age to complete this topic Medical Devices Not on file Procedures Procedure Name Priority Date/Time Associated Diagnosis Comments COMPREHENSIVE METABOLIC PANEL Routine 06/04/2016 4:11 PM EST Multiple myeloma not having achieved remission from Last 3 Months or Most Recently Relevant to Health Maintenance Results * (ABNORMAL) Comprehensive metabolic panel (06/04/2016 4:11 PM EST) SODIUM 138 135 - 145 mmol/L [facility] LIC# [id number] POTASSIUM 3.8 3.5 - 5.0 mmol/L [facility] LIC# [id number] CHLORIDE 104 98 - 108 mmol/L [facility] LIC# [id number] CO2 27 23 - 32 mmol/L [facility] LIC# [id number] BUN 28(H) 9 - 25 mg/dL [facility] LIC# [id number] CREATININE 1.26 0.7 - 1.3 mg/dL [facility] LIC# [id number] GLUCOSE 143(H) 70 - 100 mg/dL [facility] LIC# [id number] ALBUMIN 4.3 3.7 - 5.4 g/dL [facility] LIC# [id number] TOTAL PROTEIN 7.4 6.0 - 8.0 g/dL [facility] LIC# [id number] CALCIUM 9.8 8.8 - 10.5 mg/dL [facility] LIC# [id number] ALKALINE PHOSPHATASE 82 36 - 118 U/L [facility] LIC# [id number] TOTAL BILIRUBIN 0.5 0.2 - 1.2 mg/dL [facility] LIC# [id number] AST 15 9 - 30 U/L [facility] LIC# [id number] ALT 16 7 - 52 U/L [facility] LIC# [id number] GLOBULIN 3.1 2.3 - 4.2 g/dL [facility] LIC# [id number] EGFR 42 mL/min/1.7 3m2 [facility] LIC# [id number] Comment:Abnormal if <60 mL/m in/1.73m2. If patient is -Lithuanian, multiply the result by 1.21. ANION GAP 7 5 - 17 mmol/L [facility] LIC# [id number] 06/04/2016 4:11 PM EST 06/04/2016 4:19 PM EST Henrry Espino MD LAB BLOOD ORDERABLES Final Result [facility] LIC# [id number] [address] [place] [address] from Last 3 Months or Most Recently Relevant to Health Maintenance Insurance PPO PPO [place] [address] [place] [address] [place] [address] [address] [place] [address] [place] [address] [place] [address] [place] [place] [address] PPO [facility] PPO Advance Directives For more information, please contact: [phone] (9AM - 5PM [facility], Saturday-Saturday) Documents on File Type Date Recorded Patient Supervisor Telephone Information Expl anation Healthcare Proxy 06/04/2016 3:21 PM HCP Care Teams Ultrasound Tester Relationship Specialty Start Date End Date Aniceto Emery MD PCP - General Internal Medicine 04/25/16 Henrry Espino MD [address] [place] [address] [email or web address] PCP - Hematology/Oncology Medical Oncology 06/06/16 Juliann Tse MD [address] [place] [email or web address] Referring Physician Hematology and Oncology 04/25/16 Additional Source Comments The information contained in this document represents components of the legal health record. It is not the complete legal health record[facility]
[2024-11-09 16:33] LABS: Anion Gap 15 (12-20); Blood Urea Nitrogen 52 mg/dL (9-16); Calcium 9.5 mg/dL (8.4-10.2); Carbon Dioxide 33 mmol/L (22-29); Chloride 104 mmol/L (96-108); Estimated Glomerular Filt Rate 22; Potassium 3.7 mmol/L (3.3-5.1); Sodium 148 mmol/L (135-145)
--- OUTSIDE RECORDS SUMMARY | 2024-11-16 20:00 | XMS_ITS | Clinical Summary ---
Author Organization Unknown Care Team Providers [facility] [employer] Cook Name Role Phone KHARI ALVAREZ, ASHER Unavailable Unavailab ekaterina MARTINO RN, JONAH Unavailable Unavailable Payers Payer Name Policy Type Policy Number Effective Date Expira tion Date MEDICARE - [place] - PD [id number] Problems Condition Name Condition Details Condition Category Status Onset Date Resolution Date Last Treatment Date Treating Clinician Comments UNSP INTRACAP FX LEFT FEMUR, SUBS FOR CLOS FX W ROUTN HEAL Active 04-22 00:00: 00 HYP HRT AND [...] RIGHT FEMALE BREAST Active 04-22 00:00: 00 ANEMIA IN NEOPLASTIC DISEASE Active 04-22 00:00: 00 ATHSCL HEART DISEASE OF [place] CORONARY ARTERY W/O ANG PCTRS Active 04-22 00:00: 00 IRON DEFICIENCY ANEMIA, UNSPECIFIED Active 04-22 00:00: 00 AGE-RELATED 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 Active 04-22 00:00: 00 HYPOTHYROIDI SM, UNSPECIFIED Active 04-22 00:00: 00 HYPERLIPIDEM IA, UNSPECIFIED Active 04-22 00:00: 00 CYST OF KIDNEY, ACQUIRED Active 04-22 00:00: 00 CONSTIPATION , UNSPECIFIED Active 04-22 00:00: 00 CYST OF PANCREAS Active 04-22 00:00: 00 DVTRCLI OF INTEST, PART UNSP, W/O PERF OR ABSCESS W/O BLEED Active 04-22 00:00: 00 Irritable bowel syndrome, unspecified Active 04-22 00:00: 00 PERSONAL HISTORY OF PULMONARY EMBOLISM Active 04-22 00:00: 00 PRESENCE OF CORONARY ANGIOPLASTY IMPLANT AND GRAFT Active 04-22 00:00: 00 ACQUIRED ABSENCE OF OTHER SPECIFIED PARTS OF DIGESTIVE TRACT Active 04-22 00:00: 00 NURSING HOME (CURRENT) USE OF ANTITHROMBOT ICS/ANTIPLAT ELETS Active 04-22 00:00: 00 Allergies, Adverse Reactions, Alerts Allergy Name Allergy Type Status Severity Reaction(s) Onset Date Inactive Date Treating Clinician Comments BENADRYL Propensity to adverse reactions Active 2024-08 20:39:4 9 NEXIUM Propensity to adverse reactions Active 2024-08 20:39:5 9 PRILOSEC Propensity to adverse reactions Active 2024-08 20:40:1 0 Medications Ordered Medication Name Filled Medication Name Start Date Stop Date Current Medication? Ordering Clinician Indication Dosage Frequency Signature (SIG) Comments Components bumetanide 1 mg tablet 06-25 00:00: 00 07-02 00:00 :00 No [id number] Per instruc tions Per instructio ns (route: oral) Med Classific ation: Cardiovas cular Therapy Agents hydralazine 25 mg tablet 2-28 00:00: 00 07-02 00:00 :00 No [id number] Per instruc tions Per instructio ns (route: oral) Med Classific ation: Cardiovas cular Therapy Agents allopurinol 300 mg tablet 07-02 00:00: 00 09-14 23:59 :00 No [id number] 1 tablet DAILY 1 tablet DAILY (route: oral) Med Classific ation: Gout and Hyperuric emia Therapy AZO D-Mannose 500 mg capsule 07-02 00:00: 00 09-14 23:59 :00 No [id number] 1 capsule DAILY 1 capsule DAILY (route: oral) Med Classific ation: Alternati ve Therapy bumetanide 1 mg tablet 07-02 00:00: 00 09-14 23:59 :00 No [id number] 1 tablet DAILY 1 tablet DAILY (route: oral) Med Classific ation: Cardiovas cular Therapy Agents Calcium 600 + D(3) 600 mg-10 mcg (400 unit) tablet 07-02 00:00: 00 09-14 23:59 :00 No [id number] 1 tablet DAILY 1 tablet DAILY (route: oral) Med Classific ation: Electroly te Balance-N utritiona l Products Coreg 6.25 mg tablet 07-02 00:00: 00 09-14 23:59 :00 No [id number] 1 tablet 2 TIMES DAILY 1 tablet 2 TIMES DAILY (route: oral) Med Classific ation: Cardiovas cular Therapy Agents cranberry 450 mg tablet 07-02 00:00: 00 09-14 23:59 :00 No [id number] 2 tablet DAILY 2 tablet DAILY (route: oral) Med Classific ation: Alternati ve Therapy dicyclomine 10 mg capsule 07-02 00:00: 00 07-13 23:59 :00 No [id number] 1 mg DAILY 1 mg DAILY (route: oral) Med Classific ation: Gastroint estinal Therapy Agents exemestane 25 mg tablet 07-02 00:00: 00 09-14 23:59 :00 No [id number] 1 tablet DAILY 1 tablet DAILY (route: oral) Med Classific ation: Antineopl astics folic acid 1 mg tablet 07-02 00:00: 00 09-14 23:59 :00 No [id number] 1 tablet DAILY 1 tablet DAILY (route: oral) Med Classific ation: Electroly te Balance-N utritiona l Products hydralazine 25 mg tablet 07-02 00:00: 00 09-14 23:59 :00 No [id number] 1 tablet 2 TIMES DAILY 1 tablet 2 TIMES DAILY (route: oral) Med Classific ation: Cardiovas cular Therapy Agents magnesium 250 mg (as magnesium oxide) tablet 07-02 00:00: 00 09-14 23:59 :00 No [id number] 1 tablet DAILY 1 tablet DAILY (route: oral) Med Classific ation: Electroly te Balance-N utritiona l Products mecobalamin (vitamin B12) 1,000 mcg chewable tablet 07-02 00:00: 00 09-14 23:59 :00 No [id number] 1 tablet DAILY 1 tablet DAILY (route: oral) Med Classific ation: Electroly te Balance-N utritiona l Products Plavix 75 mg tablet 07-02 00:00: 00 09-14 23:59 :00 No [id number] 1 tablet DAILY 1 tablet DAILY (route: oral) Med Classific ation: Hematolog ical Agents potassium gluconate 600 mg (99 mg) tablet 07-02 00:00: 00 09-14 23:59 :00 No [id number] 1 tablet DAILY 1 tablet DAILY (route: oral) Med Classific ation: Electroly te Balance-N utritiona l Products Synthroid 100 mcg tablet 07-02 00:00: 00 09-14 23:59 :00 No [id number] 1 tablet DAILY 1 tablet DAILY (route: oral) Med Classific ation: Endocrine Vitamin C 1,000 mg tablet 07-02 00:00: 00 09-14 23:59 :00 No [id number] 1 tablet DAILY 1 tablet DAILY (route: oral) Med Classific ation: Electroly te Balance-N utritiona l Products vitamin E (dl, acetate) 180 mg (400 unit) capsule 07-02 00:00: 00 09-14 23:59 :00 No [id number] 1 capsule DAILY 1 capsule DAILY (route: oral) Med Classific ation: Electroly te Balance-N utritiona l Products acetaminoph en 325 mg tablet 5-31 00:00: 00 Yes [id number] Per instruc tions NEEDED Per instructio ns NEEDED (route: oral) Med Classific ation: Analgesic , Anti-infl ammatory or Antipyret ic allopurinol 300 mg tablet 09-19 00:00: 00 Yes [id number] 1 tablet DAILY 1 tablet DAILY (route: oral) Med Classific ation: Gout and Hyperuric emia Therapy AZO D-Mannose 500 mg capsule 09-19 00:00: 00 Yes [id number] 1 capsule DAILY 1 capsule DAILY (route: oral) Med Classific ation: Alternati ve Therapy bumetanide 1 mg tablet 09-19 00:00: 00 Yes [id number] 2 tablet DAILY 2 tablet DAILY (route: oral) Med Classific ation: Cardiovas cular Therapy Agents carvedilol 6.25 mg tablet 09-19 00:00: 00 Yes [id number] 1 tablet 2 TIMES DAILY 1 tablet 2 TIMES DAILY (route: oral) Med Classific ation: Cardiovas cular Therapy Agents clopidogrel 75 mg tablet 09-19 00:00: 00 Yes [id number] 1 tablet DAILY 1 tablet DAILY (route: oral) Med Classific ation: Hematolog ical Agents cyanocobala min (vit B-12) 1,000 mcg tablet 09-19 00:00: 00 Yes [id number] 1 tablet DAILY 1 tablet DAILY (route: oral) Med Classific ation: Electroly te Balance-N utritiona l Products exemestane 25 mg tablet 09-19 00:00: 00 Yes [id number] 1 tablet DAILY 1 tablet DAILY (route: oral) Med Classific ation: Antineopl astics hydralazine 25 mg tablet 09-19 00:00: 00 Yes [id number] 1 tablet 2 TIMES DAILY 1 tablet 2 TIMES DAILY (route: oral) Med Classific ation: Cardiovas cular Therapy Agents levothyroxi ne 100 mcg tablet 09-19 00:00: 00 Yes [id number] 1 tablet DAILY 1 tablet DAILY (route: oral) Med Classific ation: Endocrine magnesium 250 mg (as magnesium oxide) tablet 09-19 00:00: 00 Yes [id number] 1 tablet DAILY 1 tablet DAILY (route: oral) Med Classific ation: Electroly te Balance-N utritiona l Products ondansetron 4 mg disintegrat ing tablet 09-19 00:00: 00 Yes [id number] 1 tablet O2 - PRN 1 tablet O2 - PRN (route: oral) Med Classific ation: Gastroint estinal Therapy Agents potassium gluconate 600 mg (99 mg) tablet 09-19 00:00: 00 Yes [id number] 1 tablet DAILY 1 tablet DAILY (route: oral) Med Classific ation: Electroly te Balance-N utritiona l Products Vitamin C 1,000 mg tablet 09-19 00:00: 00 Yes [id number] 1 tablet DAILY 1 tablet DAILY (route: oral) Med Classific ation: Electroly te Balance-N utritiona l Products Vitamin D3 25 mcg (1,000 unit) capsule 09-19 00:00: 00 Yes [id number] 1 capsule DAILY 1 capsule DAILY (route: oral) Med Classific ation: Electroly te Balance-N utritiona l Products Vital Signs Vital Name Observation Time Observation Value Commen ts Temperature 2024-11-03 13:55:00.000 97 [degF] Temperature 2024-10-27 16:41:00.000 98.1 [degF] Temperature 2024-10-22 14:32:00.000 97.2 [degF] Temperature 2024-10-20 11:20:00.000 98.3 [degF] Temperature 2024-10-12 11:02:00.000 96.5 [degF] Temperature 2024-10-06 17:18:00.000 97 [degF] Temperature 2024-10-05 11:29:00.000 96.9 [degF] Temperature 2024-10-01 11:04:00.000 96.9 [degF] Temperature 2024-09-29 11:49:00.000 97.5 [degF] Temperature 2024-09-25 10:58:00.000 97.9 [degF] Temperature 2024-09-23 09:46:00.000 96.7 [degF] Temperature 2024-09-22 10:29:00.000 98 [degF] Temperature 2024-09-19 11:07:00.000 97.8 [degF] BMI (%) 2024-09-19 11:07:00.000 23 kg/m2 Height 2024-09-19 11:07:00.000 61 [in_us] Pulse 2024-11-03 13:55:00.000 76 /min Pulse 2024-10-27 16:41:00.000 80 /min Pulse 2024-10-22 14:32:00.000 72 /min Pulse 2024-10-20 11:20:00.000 74 /min Pulse 2024-10-12 11:02:00.000 70 /min Pulse 2024-10-06 17:18:00.000 74 /min Pulse 2024-10-05 11:29:00.000 74 /min Pulse 2024-10-01 11:04:00.000 62 /min Pulse 2024-09-29 11:49:00.000 77 /min Pulse 2024-09-25 10:58:00.000 69 /min Pulse 2024-09-24 10:11:00.000 78 /min Pulse 2024-09-23 09:46:00.000 60 /min Pulse 2024-09-22 10:29:00.000 60 /min Pulse 2024-09-19 11:07:00.000 60 /min O2 Saturation (%) 2024-11-03 13:55:00.000 96 % O2 Saturation (%) 2024-10-27 16:41:00.000 98 % O2 Saturation (%) 2024-10-22 14:32:00.000 96 % O2 Saturation (%) 2024-10-20 11:20:00.000 98 % O2 Saturation (%) 2024-10-12 11:02:00.000 98 % O2 Saturation (%) 2024-10-06 17:18:00.000 97 % O2 Saturation (%) 2024-10-05 11:29:00.000 100 % O2 Saturation (%) 2024-10-01 11:04:00.000 95 % O2 Saturation (%) 2024-09-29 11:49:00.000 97 % O2 Saturation (%) 2024-09-25 10:58:00.000 97 % O2 Saturation (%) 2024-09-24 10:11:00.000 98 % O2 Saturation (%) 2024-09-23 09:46:00.000 97 % O2 Saturation (%) 2024-09-22 10:29:00.000 98 % O2 Saturation (%) 2024-09-19 11:07:00.000 97 % Respirations 2024-11-03 13:55:00.000 20 /min Respirations 2024-10-22 14:32:00.000 18 /min Respirations 2024-10-20 11:20:00.000 18 /min Respirations 2024-10-12 11:02:00.000 18 /min Respirations 2024-10-06 17:18:00.000 18 /min Respirations 2024-10-05 11:29:00.000 18 /min Respirations 2024-10-01 11:04:00.000 18 /min Respirations 2024-09-29 11:49:00.000 18 /min Respirations 2024-09-25 10:58:00.000 18 /min Respirations 2024-09-23 09:46:00.000 18 /min Respirations 2024-09-22 10:29:00.000 18 /min Respirations 2024-09-19 11:07:00.000 18 /min Weight (lbs) 2024-11-03 13:56:00.000 125 [lb_av] Weight (lbs) 2024-10-27 16:41:00.000 124 [lb_av] Weight (lbs) 2024-10-22 14:39:00.000 124 [lb_av] Weight (lbs) 2024-10-20 11:20:00.000 122.5 [lb_av] Weight (lbs) 2024-10-06 17:19:00.000 124 [lb_av] Weight (lbs) 2024-10-05 11:38:00.000 125 [lb_av] Weight (lbs) 2024-09-29 11:53:00.000 124 [lb_av] Weight (lbs) 2024-09-19 11:07:00.000 123 [lb_av] Systolic Blood Pressure 2024-11-03 13:55:00.000 126 mm [Hg] Systolic Blood Pressure 2024-10-27 16:41:00.000 130 mm [Hg] Systolic Blood Pressure 2024-10-22 14:32:00.000 114 mm [Hg] Systolic Blood Pressure 2024-10-20 11:20:00.000 120 mm [Hg] Systolic Blood Pressure 2024-10-12 11:02:00.000 110 mm [Hg] Systolic Blood Pressure 2024-10-06 17:18:00.000 128 mm [Hg] Systolic Blood Pressure 2024-10-05 11:45:00.000 116 mm [Hg] Systolic Blood Pressure 2024-10-01 11:04:00.000 114 mm [Hg] Systolic Blood Pressure 2024-09-29 11:49:00.000 114 mm [Hg] Systolic Blood Pressure 2024-09-25 10:58:00.000 120 mm [Hg] Systolic Blood Pressure 2024-09-24 10:11:00.000 128 mm [Hg] Systolic Blood Pressure 2024-09-23 09:46:00.000 114 mm [Hg] Systolic Blood Pressure 2024-09-22 10:29:00.000 110 mm [Hg] Systolic Blood Pressure 2024-09-19 11:07:00.000 126 mm [Hg] Diastolic Blood Pressure 2024-11-03 13:55:00.000 64 mm [Hg] Diastolic Blood Pressure 2024-10-27 16:41:00.000 76 mm [Hg] Diastolic Blood Pressure 2024-10-22 14:32:00.000 72 mm [Hg] Diastolic Blood Pressure 2024-10-20 11:20:00.000 62 mm [Hg] Diastolic Blood Pressure 2024-10-12 11:02:00.000 60 mm [Hg] Diastolic Blood Pressure 2024-10-06 17:18:00.000 70 mm [Hg] Diastolic Blood Pressure 2024-10-05 11:45:00.000 64 mm [Hg] Diastolic Blood Pressure 2024-10-01 11:04:00.000 80 mm [Hg] Diastolic Blood Pressure 2024-09-29 11:49:00.000 64 mm [Hg] Diastolic Blood Pressure 2024-09-25 10:58:00.000 68 mm [Hg] Diastolic Blood Pressure 2024-09-24 10:11:00.000 76 mm [Hg] Diastolic Blood Pressure 2024-09-23 09:46:00.000 64 mm [Hg] Diastolic Blood Pressure 2024-09-22 10:29:00.000 62 mm [Hg] Diastolic Blood Pressure 2024-09-19 11:07:00.000 72 mm [Hg] Plan of Treatment Planned Activity [...] HEALTH.] Future Scheduled Test SKILLED NU RSE FOR O/A AND TEACHING RELATED TO BREAST CANCER/NEOPLASM INCLUDING SIGNS AND SYMPTOMS OF DISEASE PROGRESSION, TREATMENT, AND MANAGEMENT OF POTENTIAL SIDE EFFECTS. [code = SKILLED NURSE FOR O/A AND TEACHING RELATED TO BREAST CANCER/NEOPLASM INCLUDING SIGNS AND SYMPTOMS OF DISEASE PROGRESSION, TREATMENT, AND MANAGEMENT OF POTENTIAL SIDE EFFECTS.] Future Scheduled Test SKILLED NU RSE FOR O/A, TEACHING, AND MANAGEMENT OF CAD, HLD. [code = SKILLED NURSE FOR O/A, TEACHING, AND MANAGEMENT OF CAD, HLD.] Future Scheduled Test SKILLED NU RSE FOR O/A, TEACHING RELATED TO IBS, DIVERTICULITIS, CONSTIPATION FOR EARLY IDENTIFICATION OF EXACERBATION OF DISEASE PROCESS. [code = SKILLED NURSE FOR O/A, TEACHING RELATED TO IBS, DIVERTICULITIS, CONSTIPATION FOR EARLY IDENTIFICATION OF EXACERBATION OF DISEASE PROCESS.] Future Scheduled Test SKILLED NU RSE FOR O/A, TEACHING AND MANAGEMENT OF CKD FOR EARLY IDENTIFICATION OF EXACERBATION OF DISEASE PROCESS [code = SKILLED NURSE FOR O/A, TEACHING AND MANAGEMENT OF CKD FOR EARLY IDENTIFICATION OF EXACERBATION OF DISEASE PROCESS] Future Scheduled Test OCCUPATION AL THERAPIST TO EVALUATE PATIENT FOR ADLS DEFICIT [code = OCCUPATIONAL THERAPIST TO EVALUATE PATIENT FOR ADLS DEFICIT] Future Scheduled Test MEDICAL SO CIAL WORKER TO EVALUATE PATIENT FOR NEED FOR COMMUNITY RESOURCES [code = OPERATIONS LABEL CLERK TO EVALUATE PATIENT FOR NEED FOR COMMUNITY RESOURCES] Future Scheduled Test SKILLED NU RSE FOR O/A OF MUSCULOSKELETAL STATUS AND TEACHING ON MEASURES TO MANAGE FEMUR FX AND TO MAINTAIN SAFETY WITH ACTIVITY [code = SKILLED NURSE FOR O/A OF MUSCULOSKELETAL STATUS AND TEACHING ON MEASURES TO MANAGE FEMUR FX AND TO MAINTAIN SAFETY WITH ACTIVITY] Future Scheduled Test SKILLED NU RSE FOR [...] MANAGEMENT OF PE DISEASE.] Future Scheduled Test PHYSICAL T HERAPIST TO EVALUATE PATIENT FOR ENDURANCE [code = PHYSICAL THERAPIST TO EVALUATE PATIENT FOR ENDURANCE] Future Scheduled Test SKILLED NU RSE TO [...] OR TRAINED PATIENT/CAREGIVER TO OBTAIN MEASUREMENT OF RIGHT CALF IN CM DAILY AND REPORT AN [...] OR TRAINED PATIENT/CAREGIVER TO OBTAIN MEASUREMENT OF RIGHT CALF IN CM DAILY AND REPORT AN [...] TO SIGNS AND SYMPTOMS AND MANAGEMENT OF AGE-REPATED OSTEOPOROSIS, GOUT. [code = SKILLED NURSE FOR O/A AND SKILLED TEACHING RELATED TO SIGNS AND SYMPTOMS AND MANAGEMENT OF AGE-REPATED OSTEOPOROSIS, GOUT.] Future Scheduled Test VIRTUAL SIT FREQUENCY: PRN VIRTUAL VISITS MAY BE PERFORMED UTILIZING TELECOMMUNICATIONS SYSTEM TO OPTIMIZE SKILLED SERVICES FURNISHED ON THE PLAN OF CARE. SKILLED NURSE TO ESTABLISH SUPPORT MEASURES TO MINIMIZE RISK OF REHOSPITALIZATION, AND INSTRUCT PATIENT/CAREGIVER ON METHODS TO REDUCE AVOIDABLE HOSPITALIZATION. [code = VIRTUAL VISIT FREQUENCY: PRN VIRTUAL VISITS MAY BE PERFORMED UTILIZING [...] MAINTAIN SITUATIONAL AWARENESS AND WILL NOTIFY CLINICAL TRAVERSE ROD ASSEMBLER AND PHYSICIAN/PROVIDER WITH ANY CHANGE IN CONDITION. [code = SKILLED NURSE TO PERFORM ENVIRONMENTAL SAFETY RISK ASSESSMENT AND FALL RISK ASSESSMENT AND PROVIDE INSTRUCTION TO IMPLEMENT ENVIRONMENTAL SAFETY AND FALL PREVENTION STRATEGIES THROUGHOUT THE CERTIFICATION PERIOD. SKILLED NURSE WILL MAINTAIN SITUATIONAL AWARENESS AND WILL NOTIFY CLINICAL TRAVERSE ROD ASSEMBLER AND PHYSICIAN/PROVIDER WITH ANY CHANGE IN CONDITION.] Future Scheduled Test SKILLED NU RSE FOR OBSERVATION AND ASSESSMENT OF PATIENTS PAIN LEVEL AND EFFECTIVENESS OF PAIN MANAGEMENT REGIMEN. SKILLED NURSE TO INSTRUCT PATIENT/CAREGIVER REGARDING PHARMACOLOGIC AND NON-PHARMACOLOGIC PAIN CONTROL MEASURES. SKILLED NURSE TO REPORT TO PHYSICIAN IF PAIN LEVEL IS OUTSIDE OF ESTABLISHED PARAMETERS. [code = SKILLED NURSE FOR OBSERVATION AND ASSESSMENT OF PATIENTS PAIN LEVEL AND EFFECTIVENESS OF PAIN MANAGEMENT REGIMEN. SKILLED NURSE TO INSTRUCT PATIENT/CAREGIVER REGARDING PHARMACOLOGIC AND NON-PHARMACOLOGIC PAIN CONTROL MEASURES. SKILLED NURSE TO REPORT TO PHYSICIAN IF PAIN LEVEL IS OUTSIDE OF ESTABLISHED PARAMETERS.] Future Scheduled Test SKILLED NU RSE TO ASSESS PATIENT'S SKIN INTEGRITY AND INSTRUCT PATIENT/CAREGIVER ON MEASURES TO PREVENT PRESSURE ULCERS. [code = SKILLED NURSE TO ASSESS PATIENT'S SKIN INTEGRITY AND INSTRUCT PATIENT/CAREGIVER ON MEASURES TO PREVENT PRESSURE ULCERS.] Future Scheduled Test SKILLED NU RSE TO REVIEW PATIENT MEDICATIONS (PRESCRIPTION/OTC). INSTRUCT PATIENT/CAREGIVER ON ALL MEDICATIONS INCLUDING PURPOSE, WHEN TO TAKE, IMPORTANCE OF MEDICATION ADHERENCE, MONITORING OF EFFECTIVENESS, ADVERSE DRUG REACTIONS, POSSIBLE SIDE EFFECTS, AND WHEN TO NOTIFY AGENCY OR PHYSICIAN/PROVIDER OF ANY CONCERNS. [code = SKILLED NURSE TO REVIEW PATIENT MEDICATIONS (PRESCRIPTION/OTC). INSTRUCT PATIENT/CAREGIVER ON ALL MEDICATIONS INCLUDING PURPOSE, WHEN TO TAKE, IMPORTANCE OF MEDICATION ADHERENCE, MONITORING OF EFFECTIVENESS, ADVERSE DRUG REACTIONS, POSSIBLE SIDE EFFECTS, AND WHEN TO NOTIFY AGENCY OR PHYSICIAN/PROVIDER OF ANY CONCERNS.] Future Scheduled Test OCCUPATION AL THERAPY TO EVALUATE AND TREAT. OCCUPATIONAL THERAPY EVALUATION COMPLETED. NO ADDITIONAL VISITS RECOMMENDED AT THIS TIME. [code = OCCUPATIONAL THERAPY TO EVALUATE AND TREAT. OCCUPATIONAL THERAPY EVALUATION COMPLETED. NO ADDITIONAL VISITS RECOMMENDED AT THIS TIME.] Future Scheduled Test PHYSICAL T HERAPIST TO EVALUATE PATIENT SECONDARY TO FUNCTIONAL DEFICITS/SAFETY CONCERNS. PHYSICAL THERAPIST TO ASSESS BEST PRACTICE INTERVENTIONS TO ASSIST PATIENTS TO IMPROVE OR STABILIZE MEDICAL STATUS AND PREVENT RE-HOSPITALIZATION. MEASURES INCLUDING REVIEW AND IDENTIFICATION OF CONCERNS FOR THE FOLLOWING AREAS: DRUG REGIMEN, ENVIRONMENTAL SAFETY ISSUES AND FALLS, PRESSURE ULCERS, PAIN, AND DISEASE MANAGEMENT. PHYSICAL THERAPY TO ESTABLISH /UPGRADE/DOWNGRADE THERAPEUTIC EXERCISE PROGRAM AND INSTRUCT PATIENT/CAREGIVER ON EXERCISE PRECAUTIONS WITH WRITTEN HOME PROGRAM. MAY INCLUDE PROM, AAROM, AROM, RROM APPROPRIATE TO IMPROVE FUNCTIONAL STRENGTH AND RANGE OF MOTION. PHYSICAL THERAPY TO INSTRUCT PATIENT/CAREGIVER ON SAFE TRANSFER TECHNIQUES USING PROPER BODY MECHANICS AND EQUIPMENT. PHYSICAL THERAPY TO INSTRUCT PATIENT/CAREGIVER ON GAIT TRAINING TECHNIQUES USING APPROPRIATE ASSISTIVE DEVICE, PROPER BODY MECHANICS TO IMPROVE MOBILITY, AND PREVENT INJURY OF PATIENT AND/OR CAREGIVER. PHYSICAL THERAPY TO ASSESS AND RECOMMEND HOME SAFETY ADAPTATIONS AND EDUCATE PATIENT /CAREGIVER ON FALL PREVENTION STRATEGIES. PHYSICAL THERAPY FOR OBSERVATION AND ASSESSMENT OF PAIN, EFFECTIVENESS OF PAIN MANAGEMENT REGIMEN AND SKILLED TEACHING RELATED TO PAIN MANAGEMENT. THERAPIST TO REPORT INCREASED PAIN LEVEL TO PHYSICIAN FOR PROMPT INTERVENTION. PHYSICAL THERAPY TO INSTRUCT PATIENT/CAREGIVER ON BALANCE AND BALANCE STRATEGIES TO IMPROVE SAFE MOBILITY AND REDUCE RISK FOR FALL AND INJURY SUMMARY OF THERAPY EVAL/ASSESSMENT FINDINGS AND REASON(S) SKILLS OF A THERAPIST ARE INDICATED: PHYSICAL THERAPY EVALUATION (09/23/24) PATIENT IS A [place] 78 YO FEMALE WITH PHYSICAL THERAPY REFERRAL AFTER HOSPITALIZATION AND SNF STAY ([facility] BENAVIDEZ 08/11-09/17/24) MD DIAGNOSIS LEFT CLOSED [facility]. PAST MEDICAL HISTORY: HYPERTENSION, HYPERLIPIDEMIA, LEFT BREAST CANCER ON CHEMOTHERAPY, CHRONIC KIDNEY DISEASE, CAD HEART FAILURE, CHRONIC ANEMIA, UTI, COLITIS FROM ANTIBIOTICS. O2 2L NASAL CANNULA AT NIGHT ONLY. PATIENT APPTS: PCP 10/13/24, SURGEON 10/06/24, ONCOLOGIST 10/07/24. PATIENT LIVES WITH TINO IVY IN SINGLE FAMILY HOME, 3 STAIRS WITH RAIL TO NEGOTIATE. 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 FALL HISTORY: FALL DOWN STAIRS WHEN CARRYING OUT TRASH. PLOF: USE OF CANE, DROVE CLOF: DME: FWW, ROLLATOR, SBQC, VERSA FRAME OVER TOILET, GRAB BARS, SHOWER CHAIR, RESOLUTION SPECIALIST, STEP, COMMODE, PEDDLAR, IN PROCESS OF HANDICAP PLACARD ACQUISITON. PATIENT WEIGHTBEARING LEFT LE. PATIENT REPORTS LEFT HIP PAIN 5/10, 5/10 BACK PAIN (PATIENT BELIEVES DUE TO KIDNEY ISSUE/UTI). BILAT LE ROM WFL, BILAT LE STRENGTH R:4 TO 4+/5, L:3+ TO 4-/5. TO INCREASE BILAT LE STRENGTH, PATIENT COMPLETED BILAT LE SEATED THER EXER X 10 WITH VERBAL CUES FOR FORM: ANKLE CIRCLES, PLANTAR/DORSIFLEX, HIP FLEX, KNEE EXT, DISPENSED HEP SHEETS. PATIENT ABLE TO ENTER-->EXIT BED WITH FWW AND STEP MOD I. PATIENT COMPLETED SIT-->STAND WITH FWW AND SUPERVISION, VERBAL CUES TO INCREASE COM OVER MARK. PATIENT AMB 40' WITH FWW AND SUPERVISION, DEMO FORWARD FLEXED, MIN FEET CLEARANCE, DIMINISHED STEP LENGTHS WITH R MORE DIMINISHED THAN LEFT, ANTALGIC WITH LEFT STANCE PHASE. TINETTI = 14/28, FALL RISK. CG REPORTED CLOSE FALL WHEN AMB OUTDOORS WITH FWW WITH 2 WHEELS FROM SIDEWALK CRACKS, DISPENSED ROLLATOR AND EDUC PATIENT AND CG BIJU ON USAGE INCLUDING FOR USE ONLY WITH CONTACT GUARD ASSIST OF MICHELL IVY, USAGE FOR OUTDOORS ON UNEVEN SURFACES, EDUC ON ACTIVATING BRAKES WHEN AMB TO MAX STABILITY, LOCKING OF BRAKES TO SIT ON ROLLATOR SEAT. PATIENT AMB 20' X 2 WITH ROLLATOR AND CONTACT GUARD ASSIST, VERBAL CUES TO APPLY ROLLATOR BRAKES TO SLOW DOWN VELOCITY. PATIENT PRESENTS WITH THE FOLLOWING DEFICITS: LEFT LE WEAKNESS AND PAIN, DECREASED ENDURANCE, RESULTING IN DIFFICUTLY WITH TRANSFERS, AMB AND STAIR NEGOTIATION. SKILLED [facility] FREQ 1X6WKS TO ADDRESS DEFICITS, MAX SAFETY AND FUNCTIONAL LEVEL IN HOME ENVIRONMENT WITH THER EXER, ESTABLISH HEP, TRANSFER AND GAIT TRAINING, STAIR NEGOTIATION, BALANCE ACTIVITIES. PATIENT INFORMED ABOUT PHYSICAL THERAPY POC INCLUDING FREQ, VERBALIZED ACCEPTANCE. MD NOTIFIED ABOUT PATIENT STATUS AND POC. CONTINUE GOALS FROM CURRENT POC WITH EXPECTED DATE OF COMPLETION SPECIFIED ON ORDER FREQUENCY AND DURATION. [code = PHYSICAL THERAPIST TO EVALUATE PATIENT SECONDARY TO FUNCTIONAL DEFICITS/SAFETY CONCERNS. PHYSICAL THERAPIST TO ASSESS BEST PRACTICE INTERVENTIONS TO ASSIST PATIENTS TO IMPROVE OR STABILIZE MEDICAL STATUS AND PREVENT RE-HOSPITALIZATION. MEASURES INCLUDING REVIEW AND IDENTIFICATION OF CONCERNS FOR THE FOLLOWING AREAS: DRUG REGIMEN, ENVIRONMENTAL SAFETY ISSUES AND FALLS, PRESSURE ULCERS, PAIN, AND DISEASE MANAGEMENT. PHYSICAL THERAPY TO ESTABLISH /UPGRADE/DOWNGRADE THERAPEUTIC EXERCISE PROGRAM AND INSTRUCT PATIENT/CAREGIVER ON EXERCISE PRECAUTIONS WITH WRITTEN HOME PROGRAM. MAY INCLUDE PROM, AAROM, AROM, RROM APPROPRIATE TO IMPROVE FUNCTIONAL STRENGTH AND RANGE OF MOTION. PHYSICAL THERAPY TO INSTRUCT PATIENT/CAREGIVER ON SAFE TRANSFER TECHNIQUES USING PROPER BODY MECHANICS AND EQUIPMENT. PHYSICAL THERAPY TO INSTRUCT PATIENT/CAREGIVER ON GAIT TRAINING TECHNIQUES USING APPROPRIATE ASSISTIVE DEVICE, PROPER BODY MECHANICS TO IMPROVE MOBILITY, AND PREVENT INJURY OF PATIENT AND/OR CAREGIVER. PHYSICAL THERAPY TO ASSESS AND RECOMMEND HOME SAFETY ADAPTATIONS AND EDUCATE PATIENT /CAREGIVER ON FALL PREVENTION STRATEGIES. PHYSICAL THERAPY FOR OBSERVATION AND ASSESSMENT OF PAIN, EFFECTIVENESS OF PAIN MANAGEMENT REGIMEN AND SKILLED TEACHING RELATED TO PAIN MANAGEMENT. THERAPIST TO REPORT INCREASED PAIN LEVEL TO PHYSICIAN FOR PROMPT INTERVENTION. PHYSICAL THERAPY TO INSTRUCT PATIENT/CAREGIVER ON BALANCE AND BALANCE STRATEGIES TO IMPROVE SAFE MOBILITY AND REDUCE RISK FOR FALL AND INJURY SUMMARY OF THERAPY EVAL/ASSESSMENT FINDINGS AND REASON(S) SKILLS OF A THERAPIST ARE INDICATED: PHYSICAL THERAPY EVALUATION (09/23/24) PATIENT IS A [place] 78 YO FEMALE WITH PHYSICAL THERAPY REFERRAL AFTER HOSPITALIZATION AND SNF STAY (OSM[facility] BENAVIDEZ 08/11-09/17/24) MD DIAGNOSIS LEFT CLOSED SUBCAPITAL FEMUR FRACTURE WITH MD IZAGUIRRE OF [place] PERFORMING ORIF 08/08/24. PAST MEDICAL HISTORY: HYPERTENSION, HYPERLIPIDEMIA, LEFT BREAST CANCER ON CHEMOTHERAPY, CHRONIC KIDNEY DISEASE, CAD HEART FAILURE, CHRONIC ANEMIA, UTI, COLITIS FROM ANTIBIOTICS. O2 2L NASAL CANNULA AT NIGHT ONLY. PATIENT APPTS: PCP 10/13/24, SURGEON 10/06/24, ONCOLOGIST 10/07/24. PATIENT LIVES WITH SON BIJU IN SINGLE FAMILY HOME, 3 STAIRS WITH RAIL TO NEGOTIATE. 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 FALL HISTORY: FALL DOWN STAIRS WHEN CARRYING OUT TRASH. PLOF: USE OF CANE, DROVE CLOF: DME: FWW, ROLLATOR, SBQC, VERSA FRAME OVER TOILET, GRAB BARS, SHOWER CHAIR, RESOLUTION SPECIALIST, STEP, COMMODE, PEDDLAR, IN PROCESS OF HANDICAP PLACARD ACQUISITON. PATIENT WEIGHTBEARING LEFT LE. PATIENT REPORTS LEFT HIP PAIN 5/10, 5/10 BACK PAIN (PATIENT BELIEVES DUE TO KIDNEY ISSUE/UTI). BILAT LE ROM WFL, BILAT LE STRENGTH R:4 TO 4+/5, L:3+ TO 4-/5. TO INCREASE BILAT LE STRENGTH, PATIENT COMPLETED BILAT LE SEATED THER EXER X 10 WITH VERBAL CUES FOR FORM: ANKLE CIRCLES, PLANTAR/DORSIFLEX, HIP FLEX, KNEE EXT, DISPENSED HEP SHEETS. PATIENT ABLE TO ENTER-->EXIT BED WITH FWW AND STEP MOD I. PATIENT COMPLETED SIT-->STAND WITH FWW AND SUPERVISION, VERBAL CUES TO INCREASE COM OVER MARK. PATIENT AMB 40' WITH FWW AND SUPERVISION, DEMO FORWARD FLEXED, MIN FEET CLEARANCE, DIMINISHED STEP LENGTHS WITH R MORE DIMINISHED THAN LEFT, ANTALGIC WITH LEFT STANCE PHASE. TINETTI = 14/28, FALL RISK. CG REPORTED CLOSE FALL WHEN AMB OUTDOORS WITH FWW WITH 2 WHEELS FROM SIDEWALK CRACKS, DISPENSED ROLLATOR AND EDUC PATIENT AND CG BIJU ON USAGE INCLUDING FOR USE ONLY WITH CONTACT GUARD ASSIST OF CG BIJU, USAGE FOR OUTDOORS ON UNEVEN SURFACES, EDUC ON ACTIVATING BRAKES WHEN AMB TO MAX STABILITY, LOCKING OF BRAKES TO SIT ON ROLLATOR SEAT. PATIENT AMB 20' X 2 WITH ROLLATOR AND CONTACT GUARD ASSIST, VERBAL CUES TO APPLY ROLLATOR BRAKES TO SLOW DOWN VELOCITY. PATIENT PRESENTS WITH THE FOLLOWING DEFICITS: LEFT LE WEAKNESS AND PAIN, DECREASED ENDURANCE, RESULTING IN DIFFICUTLY WITH TRANSFERS, AMB AND STAIR NEGOTIATION. SKILLED [facility] FREQ 1X6WKS TO ADDRESS DEFICITS, MAX SAFETY AND FUNCTIONAL LEVEL IN HOME ENVIRONMENT WITH THER EXER, ESTABLISH HEP, TRANSFER AND GAIT TRAINING, STAIR NEGOTIATION, BALANCE ACTIVITIES. PATIENT INFORMED ABOUT PHYSICAL THERAPY POC INCLUDING FREQ, VERBALIZED ACCEPTANCE. MD NOTIFIED ABOUT PATIENT STATUS AND POC. CONTINUE GOALS FROM CURRENT POC WITH EXPECTED DATE OF COMPLETION SPECIFIED ON ORDER FREQUENCY AND DURATION.] Goal Patient Goal - W ALK AND BE AT MY NORMAL SELF Goal Provider Goal - A PLAN OF CARE WILL BE ESTABLISHED THAT MEETS PATIENT'S [facility] NEEDS AND INCLUDES PATIENT GOAL FOR HOME HEALTH. Goal Provider Goal - PATIENT/CAREGIVER WILL VERBALIZE/DEMONSTRATE MANAGEMENT OF CANCER/NEOPLASM DISEASE AND THE SIDE EFFECTS OF [...] THE CERTIFICATION PERIOD. Goal Provider Goal - OCCUPATIONAL THERAPY EVALUATION TO BE COMPLETED WITH RECOMMENDATIONS AND WRITTEN PLAN OF TREATMENT ESTABLISHED FOR THE PHYSICIANS SIGNATURE. Goal Provider Goal - OPERATIONS LABEL CLERK TO COMPLETE EVALUATION TO ADDRESS THE PATIENTS SOCIAL AND EMOTIONAL FACTORS AND/OR WRITTEN PLAN OF TREATMENT ESTABLISHED FOR THE PHYSICIAN'S SIGNATURE. Goal Provider Goal - PATIENT/CAREGIVER WILL VERBALIZE/DEMONSTRATE ABILITY TO MANAGE FEMUR FX MUSCULOSKELETAL DISEASE WHILE MAINTAINING SAFETY THROUGHOUT THE EPISODE. Goal Provider Goal - PATIENT/CAREGIVER WILL VERBALIZE SIGNS AND SYMPTOMS OF EXACERBATION OF ENDOCRINE DIAGNOSIS TO REPORT TO NURSE/PHYSICIAN THROUGHOUT THE CERTIFICATION PERIOD. Goal Provider Goal - PATIENT/CAREGIVER WILL VERBALIZE/DEMONSTRATE THE ABILITY TO MANAGE CIRCULATORY DISEASE PROCESS AND EXACERBATIONS WILL BE IDENTIFIED FOR EARLY INTERVENTION THROUGHOUT THE CERTIFICATION PERIOD. Goal Provider Goal - A PHYSICAL THERAPY EVALUATION TO BE COMPLETED WITH RECOMMENDATIONS AND/OR WRITTEN PLAN OF TREATMENT ESTABLISHED FOR PHYSICIANS SIGNATURE. Goal Provider Goal - PATIENT/CAREGIVER WILL VERBALIZE [...] PAIN INTERFERING WITH ACTIVITY EVIDENCED BY PAIN AT A LEVEL THAT IS ACCEPTABLE TO THE PATIENT AND PAIN LEVEL WITHIN ESTABLISHED PARAMETERS BY END OF CERTIFICATION PERIOD. Goal Provider Goal - PATIENT/CAREGIVER WILL VERBALIZE UNDERSTANDING OF PRESSURE ULCER PREVENTION BY END OF THE EPISODE. Goal Provider Goal - PATIENT/CAREGIVER WILL VERBALIZE UNDERSTANDING OF EDUCATION PROVIDED ON MEDICATIONS BY THE END OF THE CERTIFICATION PERIOD. Goal Provider Goal - NONE Goal Provider Goal - PHYSICAL THERAPY EVALUATION TO BE COMPLETED WITH RECOMMENDATIONS AND/OR WRITTEN TREATMENT PLAN OF CARE ESTABLISHED FOR THE PHYSICIANS SIGNATURE PATIENT/CAREGIVER VERBALIZES UNDERSTANDING OF THE INITIAL BEST PRACTICE RECOMMENDATIONS. PHYSICIAN TO BE NOTIFIED APPROPRIATE FOR ANY CHANGES OR COMPLICATIONS THROUGHOUT THE CERTIFICATION PERIOD. PATIENT/CAREGIVER WILL PERFORM THERAPEUTIC EXERCISE/S AND DEMONSTRATE PARTICIPATION IN A HOME PROGRAM. PATIENT/CAREGIVER WILL DEMONSTRATE SAFE TRANSFERS USING APPROPRIATE ASSISTIVE DEVICE, BODY MECHANICS AND EQUIPMENT. PATIENT/CAREGIVER WILL DEMONSTRATE IMPROVED GAIT TECHNIQUES TO MINIMIZE RISK OF INJURY. PATIENT/CAREGIVER WILL DEMONSTRATE/VERBALIZE UNDERSTANDING OF RECOMMENDATIONS TO INCREASE SAFETY IN THE HOME AND FALL PREVENTION. INCREASED PAIN OR INEFFECTIVE PAIN CONTROL MEASURES WILL BE IDENTIFIED AND PROMPTLY REPORTED TO THE PHYSICIAN. PATIENT/CAREGIVER WILL DEMONSTRATE EFFECTIVE PAIN MANAGEMENT. PATIENT/CAREGIVER WILL DEMONSTRATE IMPROVED BALANCE AND REDUCE THE RISK OF FALLS AND INJURY. PHYSICAL THERAPY REASSESSMENT WILL BE COMPLETED WITH ESTABLISHMENT OF CONTINUED POC. Progress Notes Progress Notes <paragraph>[Visit Date: 2024 by JONAH MARTINO RN]:</paragraph><paragraph>SNV ABNORMAL VITALS: WNL WT STABLE FALLS: N PHYSICAL ASSESSMENT FINDINGS: PT AWAKE AND ALERT SOBOE RECOVERS WELL. PT REPORTS DAY TO DAY SOME DAYS I FEEL GREAT, OTHERS I DONT REPORTS SOB WORSE A TIMES. PT REPORTS SICK OF BEING IN THE HOSPITAL. PT REPORTS FOLLOWING NO SALT DIET. SHE HAS FOLLOW-UP WITH [facility] END OF THE MONTH. SN CALLED TO SEE IF THERE IS A CANCELATION LIST OR 8F EARLIER APPT AVAILABLE. AWAITING CALLBACK. PTS LUNGS CTA SPEAKING IN FULL SENTENCES AT REST. GAIT SLOW STEADY W ROLLING WALKER. PT EVAL PLACED FOR REVAL. SKIN CDINO OPEN AREAS NO RASHES. MEDICATION REGIME REVIEWED NO CHANGES. L CHEST PORT INCISON HEALED NO REDNESS NO OPEN AREA. MEDICATION CHANGES: N HANDS ON CARE: ASSESSMENT TEACHING ENERGY CONSERVING TECHNIQUES LOW SODIUM DIET CHOICES PATIENT/CAREGIVER TEACH BACK: VERBALIZED UNDERSTANDING NEXT APPOINTMENT: UPCOMING ONC [facility] NEW ORDERS: PLAN RECERT INSTRUCTED PATIENT AND CAREGIVER TO CALL [facility] WITH ANY QUESTIONS OR CHANGES IN CONDITION</paragraph> Encounters Start Date/Time End Date/Time Encounter Type Admission Type Attending Clinicians Care Facility Care Department Encounter ID Discharge Date Discharge Status Discharge Condition Discharge Reason Percent Goals Met 2024-09-19 00:00:00 2024-11-17 00:00:00 Outpatient JONAH JUÁREZ [facility] [id number] 60.42
== END 2024-11-09 15:00 | disposition home or self-care (01) ==
LOC: HO.HMGCLDS 14:59
PROVIDERS: PCP Internal Medicine; Visit Provider Nurse Practitioner Family
DX: I50.9 Heart failure, unspecified (principal)
CPT/HCPCS: 36415; 80048

== ENCOUNTER 2024-11-17 10:02 | Outpatient (AMB) | payer MEDICARE, SELFPAY ==
--- NOTE | 2024-11-17 10:13 | MHC.OFFVIS ---
Vital Signs 11/17/24 10:14 Height 5 ft 1 in Weight 124 lb 12.506 oz BMI 23.6 BP 124/62 Blood Pressure Location Rt brachial Position Sitting Pulse 70 Pulse Source Pulse Oximeter Intake Visit Reasons: 4 week f/up [facility] Vp Treasurer Required: No Allergies diphenhydramine (From Benadryl) Allergy (Intermediate, Verified 11/17/24 10:16) Dizziness esomeprazole (From NEXIUM) Allergy (Intermediate, Verified 11/17/24 10:16) CHEST PAIN omeprazole (From PRILOSEC) Allergy (Intermediate, Verified 11/17/24 10:16) CHEST PAIN Medication List - Last Reconciled 11/17/24 by CONSTANTINO CorreaC [acetaminophen 1,000 mg PO DAILY PRN] allopurinol 300 mg PO DAILY ascorbic acid (vitamin C) (Vitamin C) 500 mg PO DAILY biotin 1 mg PO DAILY bumetanide 1 mg PO DAILY PRN calcium carbonate (Calcium 600) 600 mg PO DAILY carvedilol 6.25 mg PO BID cholecalciferol (vitamin D3) (Vitamin D3) 50 mcg PO DAILY clopidogrel 75 mg PO DAILY cranberry 500 mg PO DAILY cyanocobalamin (vitamin B-12) 5,000 mcg PO DAILY d-mannose 500 mg PO DAILY exemestane 25 mg PO DAILY folic acid 1 mg PO DAILY hydralazine 25 mg See Protocol PO BID levothyroxine 100 mcg PO 4XW rosuvastatin 20 mg PO DAILY vitamin E (dl, acetate) 450 mg PO DAILY HPI HPI 4 week f/up [facility]: Details: Tonia is a 79-year-old female past medical history of hypertension, diabetes, chronic kidney disease, chronic anemia, heart failure with reduced EF, nonischemic cardiomyopathy, mitral regurgitation, CAD with RCA stent, who had mechanical fall July 2024 which resulted in fractured left hip. She underwent ORIF and then went to rehab. She had hospital admission for Congestive heart failure exacerbation September 2024. Then 10/28/2024 she had Port-A-Cath placement with significant anemia and concern for SVC perforation. She received 2 units of pack cells, condition was stable, no SVC perforation. She now presents for cardiology follow-up. Today she reports that she did have an episode where her breathing worsened and she increased her Bumex on her own. She tells me she does not want to go back to the hospital. She is doing her best to keep heart failure symptoms stable by following low-salt diet, avoiding the hot weather and watching closely for symptoms. She does have some shortness of breath when she walks distances. She has no chest discomfort at rest or with activity. No PND, orthopnea or edema. She sleeps with 2 pillows which is her norm. No heart palpitations, lightheadedness, presyncope, syncope, falls. Ambulates with a cane and uses a walker in her home. She follows with hematology for her anemia. No signs of bleeding reported.. Does only light physical activities. Compliant with all meds. [facility] Medical History CAD (coronary atherosclerotic disease) Osteoarthritis Hypothyroidism Multiple myeloma CKD stage 3 due to type 2 diabetes mellitus Impingement syndrome, shoulder Left shoulder pain CHF (congestive heart failure) Closed left hip fracture CAD (coronary artery disease) CHF (congestive heart failure) Cervix prolapsed into vagina History of blood transfusion (~02/01/23) Diabetes mellitus HFrEF (heart failure with reduced ejection fraction) Cardiomyopathy Normal colonoscopy Type 2 diabetes mellitus Diverticulosis Irritable bowel syndrome Pulmonary emboli GERD (gastroesophageal reflux disease) Nephrolithiasis Hypoparathyroidism Papillary thyroid carcinoma HTN (hypertension) Polymyalgia rheumatica Hyperglycemia Chronic anemia Anemia Surgical History Status post hip surgery (~08/04/23) History of colonoscopy (~07/30/18) Stented coronary artery Breast mass, right H/O endoscopy History of cholecystectomy H/O total thyroidectomy Family History Sister CHF (congestive heart failure) Daughter Breast cancer Son Kidney stones Social History Household Members: Other Household Members Other:: other Housing: House Do you presently have visiting nurse or other home services: Yes Alcohol intake: current Alcohol intake frequency: does not drink Patient Tobacco Use Status: Former Tobacco user e-Cigarette/Vaping Use: Never Used Second Hand Smoke Exposure: No Advance Directives Date on File: 06/27/24 service: No Current occupational status: retired Current occupation: Right Handed Cognitive needs: Yes (cane) Hearing needs: No Vision needs: Yes (reading glasses) Review of Systems Const All systems reviewed & are unremarkable except as noted in HPI and below ENT Denies dizziness Card Denies chest pain, Denies chest pain at rest, Denies chest pain with activity, Denies rapid heart rate, Denies pedal edema, Denies edema, Denies leg edema, Denies lightheadedness, Denies palpitations, Denies dyspnea, Reports dyspnea on exertion and Denies orthopnea Resp Denies cough, Denies dyspnea and Reports dyspnea on exertion GI Denies hematochezia and Denies change in stool character Musc Reports abnormal gait (chronic back pain. uses cane), Reports limited range of motion, Denies muscle cramps, Denies muscle weakness, Denies numbness, Denies radiating pain into limb, Denies stiffness and Denies tingling Neuro Reports abnormal gait (chronic back pain. uses cane), Denies dizziness, Denies numbness and Denies tingling Endo Denies palpitations Physical Exam Vital Signs: Last Vital Signs Pulse 70 11/17/24 10:14 BP 124/62 11/17/24 10:14 BMI result Body Mass Index 23.6 Const General: cooperative, healthy appearing, comfortable and no acute distress Orientation/consciousness: patient oriented x3 Neck Neck: Yes normal visual inspection and Yes no JVD Resp Effort & Inspection: normal respiratory effort Auscultation: clear to auscultation bilaterally, no crackles, no rales, no rhonchi and no wheezes Cardio Rate: regular rate Rhythm: regular rhythm Heart sounds: S1 normal heart sound present, S2 normal heart sound present, no gallops, no murmurs and no rubs Neuro General: patient oriented x3 Extrem General: Yes normal to inspection, No no pedal edema and No calf tenderness Psych Appearance: grossly normal Mental Status: mental status grossly normal Speech and movement: Normal speech and movement present Assessment & Plan Assessment & Plan (1) HFrEF (heart failure with reduced ejection fraction): Code(s): I50.20 - Unspecified systolic (congestive) heart failure Category: Medical Plan: History of heart failure with reduced EF, last admission 09/2024. She is on Bumex 1 mg daily and does not appear fluid overloaded on exam. Last echocardiogram 04/07/2024 shows EF 35-40%, basal inferior and basal anterior lateral akinetic grade 2 diastolic dysfunction, [id number] MR. Labs done 11/16/2024 shows creatinine 1.79 which is similar to prior. Continue carvedilol for neurohormonal modulation. Continue hydralazine. She is not on Tunde/Arb due to TED/ CKD. Informed her she can take additional dose of Bumex daily x3 days if she is noticing increased shortness of breath or weight gain greater than 3 lb. Reviewed low-salt diet, home weight monitoring. Signs and symptoms of heart failure reviewed with her. (2) History of cardiomyopathy: Code(s): Z86.79 - Personal history of other diseases of the circulatory system Category: Medical Plan: History of cardiomyopathy, previously thought to be nonischemic. Echocardiogram 08/09/2023 showed EF 30%, which was further reduce, grade 3 diastolic dysfunction, basal inferior and basal inferior lateral segments akinetic, left atrium severely dilated, severe mitral valve regurgitation, mild AR. ( prior EF was 43%). She underwent a cardiac catheterization 09/19/2023 showing mid RCA 95% stenosis, GREG placed. Also residual disease in the mid left circumflex and mild in the mid LAD. Her EF remained down in spite of revascularization. Most recent EF 35-40%. She has been on carvedilol and hydralazine for neurohormonal modulation. Will plan for repeat echocardiogram prior to her next visit. (3) HTN (hypertension): Code(s): I10 - Essential (primary) hypertension Category: Medical Plan: Blood pressure goal less than 130/80. Well controlled at present. No med change made. Continue carvedilol and hydralazine. (4) Anemia: Code(s): D64.9 - Anemia, unspecified Category: Medical Plan: Follows with Dr. Tse. Last 11/16/2024 shows hematocrit 27.4, which is good for her. She denies any known active bleeding. (5) CAD (coronary artery disease): Comment: Cardiac catheterization, August 2023 showed critical RCA stenosis 95%, status post drug-eluting stent, 70% circumflex stenosis Code(s): I25.10 - Atherosclerotic heart disease of [place] coronary artery without angina pectoris Category: Medical Plan: Cardiac catheterization showing significant RCA stenosis, GREG was placed, residual mid left circumflex 70% stenosis and mid LAD 30-40% stenosis. No reports of anginal sounding symptoms. She is off aspirin. She continues on Plavix 75 mg daily as single antiplatelet agent. Continue carvedilol. Continue rosuvastatin. (6) Stented coronary artery: Comment: 09/19/2023, drug-eluting stent to critical RCA stenosis at 95% for ischemic cardiomyopathy Code(s): Z95.5 - Presence of coronary angioplasty implant and graft Category: Surgical Plan: As above (7) Mitral regurgitation: Code(s): I34.0 - Nonrheumatic mitral (valve) insufficiency Category: Medical Plan: Echocardiogram done 08/09/2023 showed severe mitral regurgitation. A repeat echocardiogram done 10/22/2023 shows mild mitral regurgitation. Last echo 04/07/2024 shows [id number] mitral regurgitation. (8) Hospital discharge follow-up: Code(s): Z09 - Encounter for follow-up examination after completed treatment for conditions other than malignant neoplasm Category: Medical Plan: Discharge summaries from September and October 2024 admissions reviewed Plan Time spent on chart review, documentation, interview and assessment Orders: Orders CA echo transthoracic complete 02/01/25 I34.0 - Nonrheumatic mitral (valve) insufficiency, I50.20 - Unspecified systolic (congestive) heart failure Coding Level of Care Code Est Pt Level 4 (76662) Complex EM visit Add On G2211 Diagnoses HFrEF (heart failure with reduced ejection fraction) I50.20 History of cardiomyopathy Z86.79 HTN (hypertension) I10 Anemia D64.9 CAD (coronary artery disease) I25.10 Stented coronary artery Z95.5 Mitral regurgitation I34.0 Hospital discharge follow-up Z09 Time Spent (min) 30
[2024-11-17 10:14] VITALS: BP 124/62; PULSE 70; BMI 23.6
--- OUTSIDE RECORDS SUMMARY | 2024-11-17 10:47 | XMS_ITS | Clinical Summary ---
Author Organization [facility] Address [address] [place] [address] Phone Care Team Providers Care Police Judge Name Role Phone FabriceJohn solares Primary Care [...] Active Problems Problem Noted Date Diagnosed Date Anemia in chronic kidney disease 11/09/2024 Renal osteodystrophy 11/09/2024 Hypothyroidism 04/23/2024 Chronic kidney disease, stage 4 (severe) 025 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/23/2024 Myeloma kidney 04/23/2024 Hypertension 06/04/2016 Encounters Date Type Department Care Team Description 11/09/2024 3:30 PM EDT Office Visit [facility] [address] [place] [address] Mejia Soler MD Chronic kidney disease, stage 4 (severe) (HCC) (Primary Dx); Anemia in chronic kidney disease; Renal osteodystrophy 09/15/2024 Orders Only [facility] [address] [place] [address] Mejia Soler MD Chronic kidney disease, stage 4 (severe) (HCC) from Last 3 Months Social History [...] Care Team (Late st Contact Info) Description 02/15/2025 2:15 PM EDT Office Visit [facility] [address] [place] [address] Mejia Soler MD [address] [facility] [address] [place] [address] Health Maintenance Due Date Last [...] age to complete this topic Insurance Medicare [facility] Medicare [facility] Care Teams Police Judge Relationship Specialty Start Date End Date John Avina DO [address] [place] [address] PCP - General Internal Medicine 10/23/23
--- OUTSIDE RECORDS SUMMARY | 2024-11-17 10:47 | XMS_ITS | Encounter Summary ---
Author Organization [facility] Address [address] [place] [address] Care Team Providers Care Operations Dispatcher Name Role Phone John Avina DO Primary Care Provider [phone] Encounter Details Date Type Department Care Team (Late st Contact Info) Description 06/10/2024 Lab Requisition [facility] - Main Lab [address] [facility] [place] [address] Arianna Iraheta PA [address] [place], [place] [id number] Dysuria Social History Tobacco Use Types Packs/Day [...] ssp pneumoniae(A) RIC 06/12/2024 11:01 AM EST [facility] Comment: This is an edited result. [...] MICROBIOLOGY - GENERAL ORD ERABLES Final Result [facility] H[facility]PITAL LAB [address] [place] [address], documented in this encounter Visit Diagnoses Diagnosis Dysuria documented in this encounter Care Teams Operations Dispatcher Relationship Specialty Start Date End Date John Avina DO [address] [place] [id number] PCP - General Internal Medicine 06/10/24 documented as of this encounter
--- OUTSIDE RECORDS SUMMARY | 2024-11-17 10:47 | XMS_ITS | Clinical Summary ---
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 Flexographic Printing Machinist Name Role Phone Aniceto Emery MD Primary Care Provider [phone] Juliann Tse MD Unavailable [phone] Henrry Espino MD Unavailable Allergies Active [...] Smoking Tobacco: Former Cigarettes 1 23 1 209 - [phone] Education Answer Date Recorded Are you interested [...] EST) SODIUM 138 135 - 145 mmol/L [facility] LIC# [id number] POTASSIUM 3.8 3.5 - 5.0 mmol/L [facility] LIC# [id number] CHLORIDE 104 98 - 108 mmol/L [facility] LIC# [id number] CO2 27 23 - 32 mmol/L [facility] LIC# [id number] BUN 28(H) 9 - 25 mg/dL [facility] LIC# [id number] CREATININE 1.26 0.7 - 1.3 mg/dL [facility] LIC# [id number] GLUCOSE 143(H) 70 - 100 mg/dL [facility] LIC# [id number] ALBUMIN 4.3 3.7 - 5.4 g/dL [facility] LIC# [id number] TOTAL PROTEIN 7.4 6.0 - 8.0 g/dL [facility] LIC# [id number] CALCIUM 9.8 8.8 - 10.5 mg/dL [facility] LIC# [id number] ALKALINE PHOSPHATASE 82 36 - 118 U/L [facility] LIC# [id number] TOTAL BILIRUBIN 0.5 0.2 - 1.2 mg/dL [facility] LIC# [id number] AST 15 9 - 30 U/L [facility] LIC# [id number] ALT 16 7 - 52 U/L [facility] LIC# [id number] GLOBULIN 3.1 2.3 - 4.2 g/dL [facility] LIC# [id number] EGFR 42 mL/min/1.7 3m2 [facility] LIC# [id number] Comment:Abnormal if <60 mL/m in/1.73m2. If patient is -Tajik, multiply the result by 1.21. ANION GAP 7 5 - 17 mmol/L [facility] LIC# [id number] 06/04/2016 4:11 PM EST 06/04/2016 4:19 PM EST Henrry Espino MD LAB BLOOD ORDERABLES Final Result [facility] LIC# [id number] [address] [place] [address] from Last 3 Months or Most Recently Relevant to Health Maintenance Insurance PPO P[place] [address] [address] [place] [address] [place] [address] [place] [address] [place] [address] [address] PPO [facility] PPO Advance Directives For more information, please contact: [phone] (9AM - 5PM [facility], Saturday-Saturday) Documents on File Type Date Recorded Patient Orthotics Technician Expl anation Healthcare Proxy 06/04/2016 3:21 PM HCP Care Teams Flexographic Printing Machinist Relationship Specialty Start Date End Date Aniceto Emery MD PCP - General Internal Medicine 04/25/16 Henrry Espino MD [address] [place] [address] [email or web address] PCP - Hematology/Oncology Medical Oncology 06/06/16 Juliann Tse MD [address] [place] [phone] [email or web address] Referring Physician Hematology and Oncology 04/25/16 Additional Source Comments The information contained in this document represents components of the legal health record. It is not the complete legal health record.[facility]
== END 2024-11-17 10:46 | disposition home or self-care (01) ==
LOC: HO.HCS 10:03
PROVIDERS: PCP Internal Medicine; Visit Provider Nurse Practitioner Family
DX: I50.20 Unspecified systolic (congestive) heart failure (principal); Z86.79 Personal history of other diseases of the circulatory system; I10 Essential (primary) hypertension; D64.9 Anemia, unspecified; I25.10 Atherosclerotic heart disease of native coronary artery without angina pectoris; Z95.5 Presence of coronary angioplasty implant and graft; I34.0 Nonrheumatic mitral (valve) insufficiency; Z09 Encounter for follow-up examination after completed treatment for conditions other than malignant neoplasm
CPT/HCPCS: 99214; G2211

== ENCOUNTER → 2024-11-17 10:02 | Outpatient (BNVA) | payer MEDICARE, SELFPAY | PROVIDERS: PCP Internal Medicine; Visit Provider Nurse Practitioner Family | DX: Z09 Encounter for follow-up examination after completed treatment for conditions other than malignant neoplasm (principal); I11.0 Hypertensive heart disease with heart failure; I50.20 Unspecified systolic (congestive) heart failure; D64.9 Anemia, unspecified; I25.10 Atherosclerotic heart disease of native coronary artery without angina pectoris; I34.0 Nonrheumatic mitral (valve) insufficiency; Z95.5 Presence of coronary angioplasty implant and graft; Z86.79 Personal history of other diseases of the circulatory system | CPT/HCPCS: 99212 ==

== ENCOUNTER 2024-12-08 14:46 | Outpatient (AMB) | payer MEDICARE, SELFPAY ==
--- OUTSIDE RECORDS SUMMARY | 2024-12-04 23:59 | XMS_ITS | Continuity of Care Document ---
Author Organization [facility] Address [address] [place] [address]- Care Team Providers Care Building Maintenance Worker Name Role Phone Teena ALVAREZ, Paul Shelton Primary Care Physician Encounter 12/03/24 - 12/04/[address] [address]- Attending Physician: Not on Staff, Attending MD Referring Physician: Not on Staff, Referring MD Encounter Type: [facility] Allergies, Adverse Reactions, Alerts Substance Criticality Severity Reaction Reaction Severity Status NexIUM heart palpitations A ctive Benadryl 1 Active PriLOSEC heart palpitations A ctive 1IV benadryl [...] 4:28:00 PM EDT, Route to Pharmacy Electronically, [facility], Partial fill upon patient request [...] Quantity: 30.0 Unit: tablet Repeat number: 1 hydrALAZINE 25 mg oral [...] Quantity: 90.0 Unit: each Repeat number: 3 ondansetron 4 mg oral tablet 1 tablet = 4 mg, By Mouth, Every 8 hours, PRN Nausea & Vomiting, # 10 tablet, 0 Refills, Maintenance, 02/08/23 1:27:00 PM EDT, Tablet, [facility]/pharmacy #[id number], Partial fill upon patient request if [...] Exam Date Time Procedure Performing Provider Status 12/03/24 7:01 PM MRI Abdomen W+W/O Contrast Auth (Verified) Notes: (MRI Abdomen W+W/O Contrast) Reason For Exam: - Cyst Of Kidney, Acquired;- Cyst Of Kidney, Acquired RESULT: MRI Abdomen W+W/O Contrast [facility] VISIT NUMBER :[id number] Patient Name: Tonia Washington Date of : 1945 Date of Exam: 12-03-2024 Referring Physician: Delonte Goldstein [facility] [address] [place] [id number] Exam: MR Abdomen (C-/C+) CPT 31134 Room Description: Stas Silver 1.5 HISTORY: 79 years old Female with indeterminate 1.7 cm lesion in the LEFT kidney with attenuation higher than water on recent unenhanced exam. TECHNIQUE: Renal mass protocol utilized. 6 cc of Elucirem contrast given IV. COMPARISONS: Unenhanced CT abdomen and pelvis 10/01/2024, CT renal stone protocol January 19, 2018, MRI abdomen without and with IV contrast 07/07/2013. FINDINGS: Liver: Visualized portions of the liver show no evidence of focal lesions. No evidence of hepatic steatosis. Significant decrease in signal on in phase compared to out of phase gradient echo T1-weighted images consistent with iron deposition in the liver. Similar findings seen in the spleen. 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 The portal veins are normal. Gallbladder: Not seen and likely surgically absent although no surgical clips were noted on the recent CT. Bile ducts: Mild intrahepatic and extrahepatic biliary ductal dilatation again noted, common hepatic duct measuring up to 1 cm with distal tapering and no evidence of choledocholithiasis or compressing mass. Spleen: Normal in size and signal. Pancreas: Normal in size, signal and enhancement. 1.3 x 0.9 x 0.6 cm focal area of T2 hyperintensity without enhancement in the pancreatic body near the neck, communicating with the main pancreatic duct which is normal in diameter. This was possibly present in 2013 but only measured 0.2 cm. In 2013 there were approximately 5 small cystic lesions in the pancreatic tail measuring up to 0.3 cm, on the current exam I see approximately 3 cystic lesions in the pancreatic tail the largest measuring 0.5 cm. 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 No evidence of pancreas divisum or other congenital anomaly. No peripancreatic edema or fluid collections. Adrenal Glands: Unremarkable. Kidneys: Normal in size and location. Single renal arteries on each side. Retroaortic LEFT renal vein noted a normal variant. Both renal veins are patent. The lesion of interest in the lower pole of the LEFT kidney exhibits intermediate T1 and increased T2 signal without enhancement consistent with a minimally proteinaceous or hemorrhagic cyst, again noted to measure 1.7 cm. Approximately 10 focal areas of decreased T1 and increased T2 signal without enhancement in each kidney, the largest located in the RIGHT kidney measuring up to 6.1 cm also seen before by CT. A small number of subcentimeter cysts exhibit T1 hyperintensity without enhancement consistent with proteinaceous or hemorrhagic contents.. No perinephric collections. Mild dilatation of the renal pelvis bilaterally with normal caliber of the lateral ureters is suggestive of congenital UPJ obstruction. Mild perinephric edema bilaterally. Stomach and visualized bowel: No abnormal dilatation or definite wall thickening. Mesentery: Normal. Lymph nodes: No enlarged lymph nodes. Vascular structures: Abdominal aorta and Inferior vena cava are normal in caliber and contour with expected vascular flow-voids. Free fluid: No evidence of ascites. Abdominal wall: Unremarkable. Osseous structures: Mild to moderate dextroscoliosis. Moderate to severe degenerative template changes throughout the thoracic and lumbar spine. Vertebral body hemangioma exhibiting increased T1 and increased T2 signal within the T12 vertebral body measuring 2 cm. Lung bases: No pleural or pericardial effusions. IMPRESSION: 1. The lesion of concern in the lower pole of the LEFT kidney is unchanged in size measuring 1.7 cm and exhibits features consistent with a mildly hemorrhagic or proteinaceous cyst without enhancement. No need for follow-up. 2. At least 10 cysts some exhibiting hemorrhagic contents or proteinaceous in each kidney. 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 3. Cystic lesion in the pancreatic body communicating with the main pancreatic duct measuring up to 1.3 cm which measures 0.2 cm in 2014. Much smaller cystic lesions in the pancreatic tail also seen before and measuring up to 0.5 cm. Per the 2017 ACR white paper for management of incidental pancreatic cysts, recommend follow-up in 2 years. The follow-up examination can be performed only without IV contrast (to decreased cost and shorten the exam) or without and with IV contrast according to the preference of the referring physician. This assumes the follow up examination would be clinically indicated (i.e. patient agreeable to potential surgery and a surgical candidate). 4. 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 The most common etiology is frequent transfusions. 5. Unchanged chronic mild intra and extrahepatic biliary ductal dilatation with normal tapering likely due to prior cholecystectomy. There is no other obvious etiology. Thank you for allowing me to participate in the care of this patient. A Non-Emergent actionable finding will be communicated to the ordering physician, other responsible provider, or the provider's office staff by the medical records department. Receipt of this communication by the responsible or ordering provider will be documented in [employer] Actionable Findings. Electronically Signed By: Kenneth Linton MD Dictated By: Not on Staff , MICKEY ALVAREZ Dictated Date/Time: 12/04/24 5:09 pm Reviewed By: Not on Staff , MICKEY ALVAREZ Signed By: Not on Staff , MICKEY ALVAREZ Signed Date/Time: 12/04/24 5:09 pm Transcribed By: TS Transcribed Date/Time: 12/04/24 5:09 pm Social History Social History Type Response Smoking Status Former smoker entered on: 01/10/17 Sex Sex Representation Female (finding) Patient Care team information Care Team Personnel Name: Meredith Hammond Position: S Onco RN Member Role: Primary Care Nurse Name: Taya Doshi RN Position: [facility] Rad RN Member Role: Primary Care Nurse Name: Brissa Turner RN Position: S RN Member Role: Primary Care Nurse Name: Kenyatta Be RN Position: S RN Member Role: Primary Care Nurse Name: Juliana Campos RN Position: [facility] Onco RN Member Role: Primary [...] Position: Reference Physician Member Role: PCP Address: [address] [place] [address] [place] [address]- Telecom: Name: Rema Jeffers RN Position: [facility] Onco RN Member Role: Primary Care Nurse Care Team Related Persons Name: KOJO KAPLAN Name: KOJO DODGE Name: JW LIU Insurance Providers Guarantor name: [facility] [employer] [facility] Information #: 1 Payer: MEDICARE B Payer Identifier: NA Member Number: [id number] Group Number: NA Subscriber Identifier: [id number] Relationship to Subscriber: self Coverage Type: NA Coverage Verification Date: NA Telecom: NA Address: NA Health Plan Information #: 2 Payer: [employer] SECONDARY ONLY Payer Identifier: SAM Member Number: [id number] Group Number: SAM Subscriber Identifier: [id number] Relationship to Subscriber: self Coverage Type: Medicare Other Coverage Verification Date: NA Telecom: NA Address: NA
[2024-12-08 15:11] VITALS: BP 115/52; PULSE 66; RESP 16; TEMP 36.4; O2SAT 93; BMI 24.0
--- NOTE | 2024-12-08 15:11 | A.OFFPC_ITS ---
Vital Signs 12/08/24 15:11 Height 5 ft 1 in Weight 127 lb BMI 24.0 BP 115/52 L Blood Pressure Location Rt femoral Position Sitting Respiration 16 Pulse 66 Pulse Source Pulse Oximeter Temp 97.5 F Temp Source Temporal Artery Scan Pulse Oximetry (%) 93 Oxygen Delivery Method Room Air Intake Visit [place] [facility] [place] Intake Note: Visit Reason: TCM Intake Note: Patient is here for hospital discharge follow up. Patient was discharged from [facility] Assistant Front End Manager Required: No Machine Wiper: Not Required per policy Accompanied by: Self / Same As Patient Allergies diphenhydramine (From Benadryl) Allergy (Intermediate, Verified 12/08/24 15:57) Dizziness esomeprazole (From NEXIUM) Allergy (Intermediate, Verified 12/08/24 15:57) CHEST PAIN omeprazole (From PRILOSEC) Allergy (Intermediate, Verified 12/08/24 15:57) CHEST PAIN Medication List - Last Reconciled 12/08/24 by YOVANA MorenoC [acetaminophen 1,000 mg PO DAILY PRN] allopurinol 300 mg PO DAILY ascorbic acid (vitamin C) (Vitamin C) 500 mg PO DAILY biotin 1 mg PO DAILY bumetanide 1 mg PO DAILY 90 days calcium carbonate (Calcium 600) 600 mg PO DAILY carvedilol 6.25 mg PO BID cholecalciferol (vitamin D3) (Vitamin D3) 50 mcg PO DAILY clopidogrel 75 mg PO DAILY cranberry 500 mg PO DAILY cyanocobalamin (vitamin B-12) 5,000 mcg PO DAILY d-mannose 500 mg PO DAILY exemestane 25 mg PO DAILY folic acid 1 mg PO DAILY hydralazine 25 mg See Protocol PO BID levothyroxine 100 mcg PO 4XW rosuvastatin 20 mg PO DAILY vitamin E (dl, acetate) 450 mg PO DAILY Tobacco use date assessed: 07/07/24 Fall risk assessment: 2 + Falls in past year Last assessed Fall Risk: 10/22/24 Dental Screening Dental Screen Date: 10/22/24 Did you have a dental visit in the last 12 months?: Yes Did you have a dental problem in the last 6 months where you did not have access to dental care?: No Was dental information given to patient?: Patient has dentist HPI HPI Comments History of Present Illness Details Patient presents to the office for a TCM visit. Date of admission: 10/27/2024 Date of discharge: 10/28/2024 This is a Follow-up from admission at [facility]/hospital course/discharge summary: The patient is a 79-year-old female presenting with a transitional care management visit following hospital discharge. She was admitted from October 27 to October 28, 2024, for heart failure with reduced ejection fraction. Her past medical history includes chronic systolic congestive heart failure with an ejection fraction of 34 to 40%, chronic kidney disease stage 3, multiple myeloma, chronic anemia requiring frequent transfusions, coronary artery disease, and a history of breast cancer status post right lumpectomy. During her hospital stay, she was observed for possible superior vena cava perforation post port placement for transfusions. A CT scan of the chest showed no evidence of extravasation, and she was seen by an interventional radiologist and hematology for her anemia. She was transfused with two units of packed red blood cells and advised to follow up with hematology. For her chronic congestive heart failure, she continues on Bumetanide and Carvedilol. Her chronic kidney disease stage 3 is managed with monitoring of creatinine, which remained around 2 mg/dL during her hospital stay. For coronary artery disease, Plavix was initially held post-procedure but was restarted upon discharge. The patient reports significant fatigue, stating she feels tired all the time and can easily fall asleep while sitting. She denies shortness of breath but reports severe back pain and left hip pain, which have been persistent and worsening over time. She is scheduled to see orthopedics on December 30 for evaluation of her shoulder, lower back, and left hip pain. She also reports a blocked left ear with ringing, which has persisted for two weeks following a shower. She has difficulty hearing, which affects her ability to communicate with her son and requires her to increase the volume on the television. Discharged to/Current Location: Home Lives with: Son Diagnosis: Heart failure with reduced ejection fraction Procedures performed: Patient had CT scan of chest to ensure no evidence of extravasation after port placement for frequent transfusions New medications: No new medications were added Discontinued medications: No medications were discontinued Change medications/dosing: No medications were changed Pending labs: There are no pending labs Pending diagnostic test: There are no pending diagnostic test Any Follow-up Labs required? Patient follow-up with Hematology and had repeat blood work on 11/30/2024 Any Follow-up Diagnostic test required? No follow-up diagnostic test required How are you feeling? Tired very tired Are you in any pain or discomfort? no pain Do you have any questions about your condition or discharge instructions? Patient does not have any questions about her condition or discharge instruction Were you able to get your medications filled? Patient taking all her previously prescribed medications and was able to fill them Do you have any questions about your medications? Patient does not have any questions about her medications Any referrals required? None already seen hematology Were you able to schedule your follow-up appointment? yes If home health was ordered, have they contact you? Patient already has VNA in place along with [employer] and she is not interested in meals on wheels at this time. She reports the VNA comes once weekly. The [employer] will start coming by weekly. Educational need/resources: What support system do you have? Patient has her son who lives with her Social History - Lives with her son who assists with he r care. - Receives weekly visits from a visiting nurse for vital checks and general well-being assessment. - Has a geriatric personal care aide visiting twice a week. [facility] Medical History (Updated 12/08/24 @ 17:05 by Mimi Calderón PA-C) Impacted cerumen of left ear Lower back pain Left hip pain CAD (coronary atherosclerotic disease) Osteoarthritis Hypothyroidism Multiple myeloma CKD stage 3 due to type 2 diabetes mellitus Impingement syndrome, shoulder Left shoulder pain CHF (congestive heart failure) Closed left hip fracture CAD (coronary artery disease) CHF (congestive heart failure) Cervix prolapsed into vagina History of blood transfusion (~02/01/23) Diabetes mellitus HFrEF (heart failure with reduced ejection fraction) Cardiomyopathy Normal colonoscopy Type 2 diabetes mellitus Diverticulosis Irritable bowel syndrome Pulmonary emboli GERD (gastroesophageal reflux disease) Nephrolithiasis Hypoparathyroidism Papillary thyroid carcinoma HTN (hypertension) Polymyalgia rheumatica Hyperglycemia Chronic anemia Anemia Surgical History Status post hip surgery (~08/04/23) History of colonoscopy (~07/30/18) Stented coronary artery Breast mass, right H/O endoscopy History of cholecystectomy H/O total thyroidectomy Family History Sister CHF (congestive heart failure) Daughter Breast cancer Son Kidney stones Social History Household Members: Other Household Members Other:: other Housing: House Do you presently have visiting nurse or other home services: Yes Alcohol intake: current Alcohol intake frequency: does not drink Patient Tobacco Use Status: Former Tobacco user Years Smoked: 30 +/- e-Cigarette/Vaping Use: Never Used Second Hand Smoke Exposure: No Advance Directives Date on File: 06/27/24 service: No Current occupational status: retired Current occupation: Right Handed Cognitive needs: Yes (cane) Hearing needs: No Vision needs: Yes (reading glasses) Questionnaire PHQ-9 Over the last 2 weeks, how often have you been bothered by any of the following problems? 1. Little interest or pleasure in doing things: not at all 2. Feeling down, depressed, or hopeless: not at all 3. Trouble falling or staying asleep, or sleeping too much: several days 4. Feeling tired or having little energy: nearly every day 5. Poor appetite or overeating: not at all 6. Feeling bad about yourself - or that you are a failure or have let yourself or your family down: not at all 7. Trouble concentrating on things, such as reading the newspaper or watching television: not at all 8. Moving or speaking so slowly that other people could have noticed. Or the opposite - being so fidgety or restless that you have been moving around a lot more than usual: not at all 9. Thoughts that you would be better off or of hurting yourself in some way: not at all Total score: 4 Depression Screening Interpretation: Negative Depression Screening Done: Yes 78320 - PHQ-9 Billing: Yes Source: Developed by Drs. John Torres, Park Emanuel, Tu Mccain and colleagues, with an educational ridge from [employer]. Thrive Questionnaire Date Thrive assessed: 10/28/24 I am a: Patient What is your living situation today?: I have a steady place to live Within the past 12 months, did the food you bought not last and you didn't have the money to get more?: Never true Within the past 12 months, did you worry whether your food would run out before you got money to buy more?: Never true Do you have trouble paying for medicines?: No Do you have trouble getting transportation to medical appointments?: No Do you have trouble paying your heating and electricity bill?: No Do you have trouble taking care of your child, family member or friend?: No Do you have trouble with day-to-day activities such as bathing, preparing meals, shopping, managing finances, etc.?: No Are you currently unemployed and looking for a job?: No Are you interested in more education?: No Please select the resources that you would like help with: None Currently or been in a relationship where the following occur: No concerns reported THRIVE Score: 0 AUDIT C Alcohol Use Questionnaire (AUDIT-C) 1. How often do you have a drink containing alcohol?: Never 3. How often do you have six or more drinks on one occasion?: Never Total Score: 0 Score Reviewed/Action Taken: No RASHAUN-7 AMB Questionnaire RASHAUN-7 Date RASHAUN - 7 assessed: 07/07/24 Feeling nervous, anxious, or on edge: 0 = Not at all Not being able to stop or control worryin = Not at all Worrying too much about different things: 0 = Not at all Trouble relaxin = Several days Being so restless that it is hard to sit still: 0 = Not at all Becoming easily annoyed or irritable: 0 = Not at all Feeling afraid as if something awful might happen: 0 = Not at all Total RASHAUN-7 score (0-4 normal; 5-9 mild; 10-14 moderate; 15-21 severe): 1 Source: Developed by Drs. John Torres, Park Emanuel, Tu Mccain and colleagues, with an educational ridge from [employer]. RASHAUN-7 Assessment Billing RASHAUN-7 Assessment Tool: RASHAUN-7 Assessment 07668 Review of Systems Const Details: - General: Reports significant fatigue, denies pain except for back pain. - Cardiovascular: Denies chest pain. - Respiratory: Denies dyspnea. - Musculoskeletal: Reports severe back pain and left hip pain. - Ear, Nose, Throat: Reports blocked left ear with ringing. All systems reviewed & are unremarkable except as noted in HPI and below Physical exam (Primary Care) Vital Signs: Last Vital Signs Temp 97.5 F 12/08/24 15:11 Pulse 66 12/08/24 15:11 Resp 16 12/08/24 15:11 BP 115/52 L 12/08/24 15:11 Pulse Ox 93 12/08/24 15:11 Oxygen Delivery Method Room Air 12/08/24 15:11 Vitals signs have been reviewed. Care Plan Goal for BP management: <140/90 at Goal BMI result Body Mass Index 24.0 Normal BMI Tobacco/Smoking Status: Tobacco use Status Tobacco use date assessed 07/07/24 12/08/24 15:15 Patient Tobacco Use Status Former Tobacco user 12/08/24 15:15 Tobacco use type 08/15/23 17:11 e-Cigarette/Vaping Use Never Used 12/08/24 15:15 PHQ-9: PHQ-9 Score PHQ-9: Total score 4 12/08/24 15:15 Depression Screening Interpretation: Negative Thrive Assessment: Date of Thrive Assessment Date Thrive assessed 10/28/24 12/08/24 15:15 Currently or been in a relationship where the following occur: No concerns reported Const Other: Appearance: Alert. Oriented X3. No acute distress. Head: Normal external exam. Normocephalic. Atraumatic. Eyes: Pupils are equal, round, and reactive to light. Extraocular movements intact. Conjunctiva and sclera normal. Eyelids normal. Ears: Left ear blocked with cerumen, causing ringing and hearing difficulty. External auditory canal normal on the right. Tympanic membranes normal. Throat: Pharynx normal. Uvula midline. Moist mucous membranes. Neck: Normal inspection. Neck supple. Full range of motion. No adenopathy. Thyroid Normal. No meningeal signs. No neck mass noted. Cardiovascular: Normal heart rate and rhythm. Heart sound normal. No murmurs noted. Pulses normal throughout. Respiratory: No respiratory distress. Painless inspiration. Breath sounds normal. No wheezes/rales/rhonchi noted. Chest nontender. No accessory muscle usage noted or decreased air movement noted. Abdomen: Soft and nontender. No distention noted. No organomegaly noted. Back: Pain in the lower back reported. No costovertebral angle tenderness. Full range of motion noted. Skin: Skin warm and dry. Patient appears pallor. Normal skin turgor. No rashes/lesions/lacerations noted. Extremities: No lower extremity edema. Pain in the left hip reported. Extremities exhibit normal range of motion. Neuro: Oriented X 3. No motor deficit. No sensory deficit. Reflexes normal. Office Procedures Cerumen Removal From which ear canal was the cerumen removed: left Removal: irrigation Notes: patient tolerated procedure well, no complications and ear canal clear 03078-Lct Irrigation/Lavage Results Reviewed Results Reviewed: - CT chest: No evidence of extravasation post port placement. - X-ray left hip and pelvis: Nondisplaced fracture of the left femoral noted in July. Coding Level of Care Code TCM High MDM <= 14 days Complex EM visit Add On G2211 Diagnoses Hospital discharge follow-up Z09 HFrEF (heart failure with reduced ejection fraction) I50.20 CKD (chronic kidney disease) stage 3, GFR 30-59 ml/min N18.30 Chronic anemia D64.9 CAD (coronary artery disease) I25.10 Left hip pain M25.552 Lower back pain M54.50 Impacted cerumen of left ear H61.22 CPT Codes Office Procedure - CPT: 70775-Ihb Irrigation/Lavage ([id number]) Additional Codes RASHAUN-7 Assessment Billing - RASHAUN-7 Assessment Tool: RASHAUN-7 Assessment 54714 ([id number]) PHQ-9 - 22358 - PHQ-9 Billing: Yes ([id number]) Time Spent (min) 50 Assessment & Plan Assessment & Plan (1) Hospital discharge follow-up: Code(s): Z09 - Encounter for follow-up examination after completed treatment for conditions other than malignant neoplasm Category: Medical (2) HFrEF (heart failure with reduced ejection fraction): Code(s): I50.20 - Unspecified systolic (congestive) heart failure Category: Medical Plan: The patient will continue on Bumetanide and Carvedilol for management of heart failure with reduced ejection fraction. Condition is chronic and stable continue to monitor. (3) CKD (chronic kidney disease) stage 3, GFR 30-59 ml/min: Code(s): N18.30 - Chronic kidney disease, stage 3 unspecified Category: Medical Plan: Monitoring of creatinine levels will continue, with recent levels around 2 mg/dL. Condition is chronic and stable continue to monitor. (4) Chronic anemia: Code(s): D64.9 - Anemia, unspecified Category: Medical Plan: The patient will follow up with hematology for management of chronic anemia and has been transfused with two units of packed red blood cells. Condition is chronic and stable continue to monitor. (5) CAD (coronary artery disease): Comment: Cardiac catheterization, August 2023 showed critical RCA stenosis 95%, status post drug-eluting stent, 70% circumflex stenosis Code(s): I25.10 - Atherosclerotic heart disease of [place] coronary artery without angina pectoris Category: Medical Plan: Plavix was restarted post-procedure for coronary artery disease management. Condition is chronic and stable continue to monitor. (6) Left hip pain: Code(s): M25.552 - Pain in left hip Category: Medical Plan: The patient is scheduled for an orthopedic evaluation on December 30 for left hip pain and will have an x-ray ordered for further assessment. Condition is chronic and stable will continue to monitor. (7) Lower back pain: Code(s): M54.50 - Low back pain, unspecified Category: Medical Plan: The patient will have an x-ray of the lower back to assess the cause of persistent back pain. Condition is chronic and stable will continue to monitor. (8) Impacted cerumen of left ear: Code(s): H61.22 - Impacted cerumen, left ear Category: Medical Plan: The medical insurance biller will assist in removing cerumen from the left ear to alleviate blockage and improve hearing. Plan Plan Patient was informed and verbally consented to the use of an ambient scribe for clinic note documentation during this visit. 1. Heart Failure With Reduced Ejection Fraction The patient will continue on Bumetanide and Carvedilol for management of heart failure with reduced ejection fraction. 2. Chronic Kidney Disease Stage 3 Monitoring of creatinine levels will continue, with recent levels around 2 m g/dL. 3. Chronic Anemia The patient will follow up with hematology for management of chronic anemia and has been transfused with two units of packed red blood cells. 4. Coronary Artery Disease Plavix was restarted post-procedure for coronary artery disease management. 5. Left Hip Pain The patient is scheduled for an orthopedic evaluation on December 30 for left hip pain and will have an x-ray ordered for further assessment. 6. Back Pain The patient will have an x-ray of the lower back to assess the cause of persistent back pain. 7. Cerumen Impaction In Left Ear The medical insurance biller will assist in removing cerumen from the left ear to alleviate blockage and improve hearing. During the visit, we discussed the continuation of Bumetanide and Carvedilol for heart failure management. The patient will follow up with hematology for chronic anemia management and has been scheduled for an orthopedic evaluation for her hip and back pain. An x-ray has been ordered for further assessment. We also addressed the cerumen impaction in her left ear, and arrangements were made for its removal. Follow-up is planned in one month to ensure stability and address any further concerns. Orders: Orders XR hip LT w PEL1V Today M25.552 - Pain in left hip, M54.50 - Low back pain, unspecified XR lumbar spine 4V min Today M25.552 - Pain in left hip, M54.50 - Low back pain, unspecified Patient Instructions: - Continue taking Bumetanide and Carvedilol as prescribed. - Attend follow-up appointment with hematology on Saturday. - Go for x-rays of the lower back and left hip as ordered. - Follow up with orthopedics on December 30 for evaluation of hip and back pain. - Allow the medical insurance biller to assist with earwax removal today. - Return for follow-up in one month to monitor progress and address any new concerns.
--- OUTSIDE RECORDS SUMMARY | 2024-12-08 16:09 | XMS_ITS | Clinical Summary ---
Author Organization [facility] Address [address] [place] [address] Phone Care Team Providers Care Cold Saw Operator Name Role Phone FabriceJohn solares Primary Care [...] Visit [facility] [address] [place] [address] Mejia Soler MD Chronic kidney disease, stage 4 (severe) (HCC) (Primary Dx); Anemia in chronic kidney disease; Renal osteodystrophy 09/15/2024 Orders Only [facility] [address] [place] [address] Mejia Soler [...] Visit [facility] [address] [place] [address] Mejia Soler MD [address] [facility] [address] [place] [address] Health Maintenance Due Date Last [...] age to complete this topic Insurance Medicare [facility] Medicare [facility] Care Teams Cold Saw Operator Relationship Specialty Start Date End Date John Avina DO [address] [place] [address] PCP - General Internal Medicine 10/23/23
--- OUTSIDE RECORDS SUMMARY | 2024-12-08 16:09 | XMS_ITS | Encounter Summary ---
Author Organization [facility] Address [address] [place] [address] Care Team Providers Care Benefits Manager Name Role Phone John Avina DO Primary Care Provider [phone] Encounter Details Date Type Department Care Team (Late st Contact Info) Description 06/10/2024 Lab Requisition [facility] - Main Lab [address] [facility] [place] [address] Arianna Iraheta PA [address] [place], [place] [phone] Dysuria Social History Tobacco Use Types Packs/Day [...] ssp pneumoniae(A) RIC 06/12/2024 11:01 AM EST [facility] Comment: This is an edited [...] MICROBIOLOGY - GENERAL ORD ERABLES Final Result [facility] [address] [place] [address], documented in this encounter Visit Diagnoses Diagnosis Dysuria documented in this encounter Care Teams Benefits Manager Relationship Specialty Start Date End Date John Avina DO [address] [place] [phone] PCP - General Internal Medicine 06/10/24 documented as of this encounter
--- OUTSIDE RECORDS SUMMARY | 2024-12-08 16:09 | XMS_ITS | Clinical Summary ---
Author Organization [facility] Address [address] [place] [address] Phone Care Team Providers Care Leather Toggler Name Role Phone Aniceto Emery MD Primary Care Provider [phone] Juliann Tse MD Unavailable Henrry Espino MD Unavailable [phone] Allergies Active Allergy Reactions Criticality Noted Date [...] Smoking Tobacco: Former Cigarettes 1 23 1 [phone] - [phone] Education Answer Date Recorded Are you interested [...] EST) SODIUM 138 135 - 145 mmol/L [facility] LIC# [id number] POTASSIUM 3.8 3.5 - 5.0 mmol/L [facility] LIC# [id number] CHLORIDE 104 98 - 108 mmol/L [facility] LIC# [id number] CO2 27 23 - 32 mmol/L [facility] LIC# [id number] BUN 28(H) 9 - 25 mg/dL [facility] LIC# [id number] CREATININE 1.26 0.7 - 1.3 mg/dL [facility] LIC# [id number] GLUCOSE 143(H) 70 - 100 mg/dL [facility] LIC# [id number] ALBUMIN 4.3 3.7 - 5.4 g/dL [facility] LIC# [id number] TOTAL PROTEIN 7.4 6.0 - 8.0 g/dL [facility] LIC# [id number] CALCIUM 9.8 8.8 - 10.5 mg/dL [facility] LIC# [id number] ALKALINE PHOSPHATASE 82 36 - 118 U/L [facility] LIC# [id number] TOTAL BILIRUBIN 0.5 0.2 - 1.2 mg/dL [facility] LIC# [id number] AST 15 9 - 30 U/L [facility] LIC# [id number] ALT 16 7 - 52 U/L [facility] LIC# [id number] GLOBULIN 3.1 2.3 - 4.2 g/dL [facility] LIC# [id number] EGFR 42 mL/min/1.7 3m2 [facility] LIC# [id number] Comment:Abnormal if <60 mL/m in/1.73m2. If patient is -Portuguese, multiply the result by 1.21. ANION GAP 7 5 - 17 mmol/L [facility] LIC# [id number] 06/04/2016 4:11 PM EST 06/04/2016 4:19 PM EST Henrry Espino MD LAB BLOOD ORDERABLES Final Result [facility] LIC# [id number] [address] [place] [address] from Last 3 Months or Most Recently Relevant to Health Maintenance Insurance P[place] [address] [place] [address] [address] [place] [address] [place] [address] [place] [address] [place] [address] [place] [address] [place] [address] [place] [address] PPO [facility] PPO Advance Directives For more information, please contact: [phone] (9AM - 5PM [facility], Saturday-Saturday) Documents on File Type Date Recorded Patient Television Presenter Expl anation Healthcare Proxy 06/04/2016 3:21 PM HCP Care Teams Leather Toggler Relationship Specialty Start Date End Date Aniceto Emery MD PCP - General Internal Medicine 04/25/16 Henrry Espino MD [address] [place] [address] [email or web address] PCP - Hematology/Oncology Medical Oncology 06/06/16 Juliann Tse MD [address] [place] [phone] [email or web address] Referring Physician Hematology and Oncology 04/25/16 Additional Source Comments The information contained in this document represents components of the legal health record. It is not the complete legal health record.[facility]
== END 2024-12-08 16:14 | disposition home or self-care (01) ==
LOC: HO.HMCSH 14:46
PROVIDERS: PCP Internal Medicine; Visit Provider Physician Assistant Medical
DX: I50.20 Unspecified systolic (congestive) heart failure (principal); N18.30 Chronic kidney disease, stage 3 unspecified; Z09 Encounter for follow-up examination after completed treatment for conditions other than malignant neoplasm; D64.9 Anemia, unspecified; I25.10 Atherosclerotic heart disease of native coronary artery without angina pectoris; M25.552 Pain in left hip; M54.50 Low back pain, unspecified; H61.22 Impacted cerumen, left ear

== ENCOUNTER → 2024-12-08 14:46 | Outpatient (BNVA) | payer MEDICARE, SELFPAY | PROVIDERS: PCP Internal Medicine; Visit Provider Physician Assistant Medical | DX: Z09 Encounter for follow-up examination after completed treatment for conditions other than malignant neoplasm (principal); I13.0 Hypertensive heart and chronic kidney disease with heart failure and stage 1 through stage 4 chronic kidney disease, or unspecified chronic kidney disease; E11.22 Type 2 diabetes mellitus with diabetic chronic kidney disease; N18.30 Chronic kidney disease, stage 3 unspecified; I50.20 Unspecified systolic (congestive) heart failure; D64.9 Anemia, unspecified; I25.10 Atherosclerotic heart disease of native coronary artery without angina pectoris; M54.50 Low back pain, unspecified; H61.22 Impacted cerumen, left ear | CPT/HCPCS: 69209; 96127; 99495 ==

== ENCOUNTER 2024-12-09 14:42 | Outpatient (REF) | payer MEDICARE, SELFPAY ==
--- NOTE | ~2024-12-09 | XR_ITS ---
EXAMINATION: XR HIP, LEFT CLINICAL INFORMATION: M25.552 - Pain in left hip COMPARISON: August 04, 2024 TECHNIQUE: AP upright, AP supine, and frog-leg lateral views of the left hip. FINDINGS: Since prior examination, 2 cannulated screws have been placed across the left femoral head and neck, lateral approach fixing a subcapital fracture. There is no interval displacement or deformity. XR/XR hip LT w PEL1V IMPRESSION: ORIF left intracapsular hip fracture. Electronically signed by: Carter Dia MD 12/09/2024 03:40 PM EDT
--- NOTE | ~2024-12-09 | XR_ITS ---
EXAMINATION: XR LUMBOSACRAL SPINE WITH OBLIQUES CLINICAL INFORMATION: M25.552 - Pain in left hip COMPARISON: Correlated to CT abdomen and pelvis dated June 26, 2024. TECHNIQUE: AP oblique and lateral views FINDINGS: Multilevel syndesmophyte formation and marginal osteophyte formation throughout the axial skeleton. Dextroconvex curvature of the upper lumbar spine apex at L1 to and levoconvex curvature apex at L4-5. Multilevel vacuum phenomenon at L1 to, L2-3, L3-4 and L4-5 levels. Multilevel decreased intervertebral disc height subchondral cyst formation and sclerosis of the endplates. Grade 1 anterolisthesis L5-S1. No lytic or blastic lesions. Vascular calcifications, aorta and iliac arteries and mesenteric arteries. Metallic screws in the left femoral head neck no fully included in the [id number]. Sclerosis and the sacroiliac joints. XR/XR lumbar spine 4V min IMPRESSION: Multilevel moderate to severe thoracolumbar spondylosis and grade 1 anterolisthesis L5-S1. Scoliosis. Atherosclerosis disease. Electronically signed by: Harsha Mckeon MD 12/09/2024 03:55 PM EDT
--- OUTSIDE RECORDS SUMMARY | 2024-12-09 15:38 | XMS_ITS | Encounter Summary ---
Author Organization [facility] Address [address] [place] [address] Care Team Providers Care Chuck Tender Name Role Phone John Avina DO Primary Care Provider [phone] Encounter Details Date Type Department Care Team (Late st Contact Info) Description 06/10/2024 Lab Requisition [facility] - Main Lab [address] [facility] [place] [address] Arianna Iraheta PA [address] [place], [place] [id number] Dysuria Social History Tobacco Use Types Packs/Day [...] pneumoniae(A) RIC 06/12/2024 11:01 AM EST [facility] Comment: This is an edited [...] - GENERAL ORD ERABLES Final Result [facility] [address] [place] [address], documented in this encounter Visit Diagnoses Diagnosis Dysuria documented in this encounter Care Teams Chuck Tender Relationship Specialty Start Date End Date John Avina DO [address] [place] [phone] PCP - General Internal Medicine 06/10/24 documented as of this encounter
--- OUTSIDE RECORDS SUMMARY | 2024-12-09 15:39 | XMS_ITS | Clinical Summary ---
Author Organization [facility] Address [address] [facility] [address] [place] [address] Phone Care Team Providers Care Outpatient Facility Physical Therapist Name Role Phone Aniceto Emery MD Primary Care Provider [phone] Juliann Tse MD Unavailable [phone] Henrry Espino MD Unavailable [phone] Allergies Active Allergy Reactions Criticality Noted Date [...] Smoking Tobacco: Former Cigarettes 1 23 1 [phone] Education Answer Date Recorded Are you interested [...] EST) SODIUM 138 135 - 145 mmol/L [facility] LIC# [id number] POTASSIUM 3.8 3.5 - 5.0 mmol/L [facility] LIC# [id number] CHLORIDE 104 98 - 108 mmol/L [facility] LIC# [id number] CO2 27 23 - 32 mmol/L [facility] LIC# [id number] BUN 28(H) 9 - 25 mg/dL [facility] LIC# [id number] CREATININE 1.26 0.7 - 1.3 mg/dL [facility] LIC# [id number] GLUCOSE 143(H) 70 - 100 mg/dL [facility] LIC# [id number] ALBUMIN 4.3 3.7 - 5.4 g/dL [facility] LIC# [id number] TOTAL PROTEIN 7.4 6.0 - 8.0 g/dL [facility] LIC# [id number] CALCIUM 9.8 8.8 - 10.5 mg/dL [facility] LIC# [id number] ALKALINE PHOSPHATASE 82 36 - 118 U/L [facility] LIC# [id number] TOTAL BILIRUBIN 0.5 0.2 - 1.2 mg/dL [facility] LIC# [id number] AST 15 9 - 30 U/L [facility] LIC# [id number] ALT 16 7 - 52 U/L [facility] LIC# [id number] GLOBULIN 3.1 2.3 - 4.2 g/dL [facility] LIC# [id number] EGFR 42 mL/min/1.7 3m2 [facility] LIC# [id number] Comment:Abnormal if <60 mL/m in/1.73m2. If patient is -Samoan, multiply the result by 1.21. ANION GAP 7 5 - 17 mmol/L [facility] LIC# [id number] 06/04/2016 4:11 PM EST 06/04/2016 4:19 PM EST Henrry Espino MD LAB BLOOD ORDERABLES Final Result [facility] LIC# [id number] [address] [place] [address] from Last 3 Months or Most Recently Relevant to Health Maintenance Insurance PPO [place] [address] [address] [place] [address] [place] [place] [address] [place] [address] [place] [address] [place] [place] [address] [place] [address] [place] [address] PPO 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 PCP - Hematology/Oncology Medical Oncology 06/06/16 Juliann Tse MD [address] [place] [phone] [email or web address] Referring Physician Hematology and Oncology 04/25/16 Additional Source Comments The information contained in this document represents components of the legal health record. It is not the complete legal health record.[facility]
--- OUTSIDE RECORDS SUMMARY | 2024-12-09 15:40 | XMS_ITS | Clinical Summary ---
Author Organization [facility] Address [address] [place] [address] Phone Care Team Providers Care Education Professional Name Role Phone FabriceJohn solares Primary Care [...] Visit [facility] [address] [place] [address] Mejia Soler MD Chronic kidney disease, stage 4 (severe) (HCC) (Primary Dx); Anemia in chronic kidney disease; Renal osteodystrophy 09/15/2024 Orders Only [facility] [address] [place] [address] Mejia Soler [...] Visit [facility] [address] [place] [address] Mejia Soler MD [address] [facility] [address] [place] [address] Health Maintenance Due Date Last [...] age to complete this topic Insurance Medicare [facility] Medicare [facility] Care Teams Education Professional Relationship Specialty Start Date End Date John Avina DO [address] [place] [address] PCP - General Internal Medicine 10/23/23
== END 2024-12-09 14:43 | disposition home or self-care (01) ==
LOC: HO.HMGCX 14:42
PROVIDERS: PCP Internal Medicine; Visit Provider Physician Assistant Medical
DX: M25.552 Pain in left hip (principal); M54.50 Low back pain, unspecified
CPT/HCPCS: 72110; 73502

== ENCOUNTER → 2024-12-09 14:52 | Outpatient (BNV) | payer MEDICARE, SELFPAY | PROVIDERS: PCP Internal Medicine; Visit Provider Radiology Diagnostic Radiology | DX: M47.817 Spondylosis without myelopathy or radiculopathy, lumbosacral region (principal) | CPT/HCPCS: 72110 ==

== ENCOUNTER 2024-12-23 10:05 | Outpatient (REF) | payer MEDICARE, SELFPAY ==
--- NOTE | ~2024-12-23 | XR_ITS ---
EXAMINATION: XR SHOULDER, LEFT CLINICAL INFORMATION: M25.512 - Pain in left shoulder COMPARISON: November 04, 2018. TECHNIQUE: AP external rotation, Grashey, scapular Y, and axillary views of the left shoulder. FINDINGS: Degenerative changes in the acromioclavicular joint. No acute cortical disruption or gross malalignment. No lytic or blastic lesions. No soft tissue calcifications. There is a left-sided Port-A-Cath no fully included in the [id number]. XR/XR shoulder LT min 2V IMPRESSION: Degenerative changes without acute fracture or dislocation. Electronically signed by: Harsha Mckeon MD 12/23/2024 01:40 PM EDT
--- OUTSIDE RECORDS SUMMARY | 2024-12-23 11:34 | XMS_ITS | Encounter Summary ---
Author Organization [facility] Address [address] [place] [address] Care Team Providers Care Meter Attendant Name Role Phone John Avina DO Primary Care Provider [phone] Encounter Details Date Type Department Care Team (Late st Contact Info) Description 08/17/2024 Lab Requisition [facility] - Main Lab [address] [facility] [place] [address] Lincoln Crespo MD [address] [place] [address] Other ulcerative colitis with rectal bleeding (CMS/HCC V24, CMS/HCC V28); Anemia in chronic kidney disease (CODE) Social History Tobacco Use Types Packs/Day Years [...] Procedure Name Priority Date/Time Associated Diagnosis Comments COMPLETE BLOOD COUNT Routine 08/18/2024 4:57 AM EDT Other ulcerative colitis with rectal bleeding (CMS/HCC V24, CMS/HCC V28) Anemia in chronic kidney disease (CODE) documented in this encounter Results * (ABNORMAL) Complete blood count (08/18/2024 4:57 AM EDT) WBC 7.1 4.8 - 10.8 K/[facility] LAB HEMETOLOGY METHOD 08/18/2024 11:09 AM EDT [facility] RBC 2.80(L) 3.80 - 4.80 M/[facility] LAB HEMETOLOGY METHOD 08/18/2024 11:09 AM [facility] Hemoglobin 9.2(L) 11.5 - 16.0 g/dL LAB HEMETOLOGY METHOD 08/18/2024 11:09 AM [facility] Hematocrit 28.6(L) 35.0 - 47.0 % LAB HEMETOLOGY METHOD 08/18/2024 11:09 AM [facility] MCV 103.6(H) 79.0 - 98.0 FL LAB HEMETOLOGY METHOD 08/18/2024 11:09 AM [facility] MCH 33.3(H) 27.0 - 32.0 pcg LAB HEMETOLOGY METHOD 08/18/2024 11:09 AM [facility] MCHC 32.2 32.0 - 37.0 g/dL LAB HEMETOLOGY METHOD 08/18/2024 11:09 AM [facility] RDW 18.5(H) 11.0 - 15.0 % LAB HEMETOLOGY METHOD 08/18/2024 11:09 AM [facility] Platelets 216 130 - 400 K/mcL LAB HEMETOLOGY METHOD 08/18/2024 11:09 AM [facility] MPV 9.2 7.0 - 11.0 FL LAB HEMETOLOGY METHOD 08/18/2024 11:09 AM [facility] NRBC 0.0 <1.0 % LAB HEMETOLOGY METHOD 08/18/2024 11:09 AM [facility] NRBC Absolute 0.00 <0.10 K/mcL LAB HEMETOLOGY METHOD 08/18/2024 11:09 AM [facility] Blood Venous blood specimen / Unknown Venipuncture / Unknown 08/18/2024 4:57 AM EDT 08/18/2024 10:57 AM EDT Lincoln Crespo MD LAB BLOOD ORDERABLES Final Resu lt [facility] LAB [address] [place] [address], documented in this encounter Visit Diagnoses Diagnosis Other ulcerative colitis with rectal bleeding (CMS/HCC V24, CMS/HCC V28) Anemia in chronic kidney disease (CODE) documented in this encounter Care Teams Meter Attendant Relationship Specialty Start Date End Date John Avina DO [address] [place] [phone] PCP - General Internal Medicine 06/10/24 documented as of this encounter
--- OUTSIDE RECORDS SUMMARY | 2024-12-23 11:34 | XMS_ITS | Encounter Summary ---
Author Organization [facility] Address [address] [place] [address] Care Team Providers Care Picking Machine Operator Helper Name Role Phone John Avina DO Primary Care Provider [phone] Encounter Details Date Type Department Care Team (Late st Contact Info) Description 06/10/2024 Lab Requisition [facility] - Main Lab [address] [facility] [place] [address] Arianna Iraheta PA [address] [place], [place] [phone] Dysuria Social History Tobacco Use Types Packs/Day [...] pneumoniae(A) RIC 06/12/2024 11:01 AM EST [facility] Comment: This is an edited [...] - GENERAL ORD ERABLES Final Result [facility] LAB [address] [place] [address], documented in this encounter Visit Diagnoses Diagnosis Dysuria documented in this encounter Care Teams Picking Machine Operator Helper Relationship Specialty Start Date End Date John Avina DO [address] [place] [phone] PCP - General Internal Medicine 06/10/24 documented as of this encounter
--- OUTSIDE RECORDS SUMMARY | 2024-12-23 11:34 | XMS_ITS | Clinical Summary ---
Author Organization [address] Address [address] [place] [address] Phone Care Team Providers Care Physical Therapy Manager Name Role Phone FabriceJohn solares Primary Care Provider [phone] Social History Tobacco Use Types Packs/Day Years Used Date Smoking Tobacco: Never Assessed Comments Unknown Sex and Gender Information Value Date Recorded Sex Assigned at Not on file Legal Sex Female 6:11 PM EST Gender Identity Not on file Sexual Orientation Not on file Plan of Treatment Health Maintenance Due Date Last Done Comments COVID-19 Vaccine (#1) 09/07/1950 Diabetes: Annual Foot Exam 1956 Diabetes: Annual Retina Eye Exam 1955 DTaP,Tdap,and Td Vaccines (1 - Tdap) 1965 Pneumococcal Vaccine: 50+ Years (1 of 2 - PCV) 1965 Zoster Vaccines (1 of 2) 1965 RSV Immunization Adult Patients (1 - 1-dose 75+ series) 2021 Depression Screening 04/22/2024 Cholesterol Screening (Lipid Panel) 06/11/2024 Falls Risk Assessment 06/11/2024 Hepatitis C Screening 06/11/2024 Medicare Annual Wellness Visit 06/11/2024 Osteoporosis Screening (Bone Density Screening) 06/11/2024 Social Influencers of Health Screening 06/11/2024 Diabetes: Annual Urine Albumin-Creatinine Ratio (uACR) 08/13/2024 Diabetes: Blood Sugar Control Test (HGBA1C) 08/13/2024 Influenza Vaccine (#1) 2024 Diabetes: Annual GFR (Glomerular Filtration Rate) 09/17/2025 09/17/2024, 09/15/2024, 09/10/2024, Additional history exists Hypertension/CHF/CAD Annual BMP Blood Test 09/17/2025 09/17/2024, 09/15/2024, 09/10/2024, Additional history exists HIB Vaccines Aged Out No longer eligi [...] to complete this topic RSV Immunization Patients Under 20 months Aged Out No longer eligible based on patient's age to complete this topic Varicella Vaccines Aged Out No longer eligible based on patient's age to complete this topic Procedures Procedure Name Priority Date/Time Associated Diagnosis Comments BASIC METABOLIC PANEL Routine 09/17/2024 8:40 AM EDT Essential (primary) hypertension Atherosclerotic heart disease of [place] coronary artery without angina pectoris Anemia, unspecified Chronic kidney disease, unspecified from Last 3 Months or Most Recently Relevant to Health Maintenance Results * (ABNORMAL) Basic metabolic panel (09/17/2024 8:40 AM EDT) Sodium 141 133 - 145 mmol/L LAB CHEMISTRY METHOD 09/17/2024 11:11 AM [facility] Potassium 4.0 3.5 - 5.5 mmol/L LAB CHEMISTRY METHOD 09/17/2024 11:11 AM [facility] Chloride 109 96 - 110 mmol/L LAB CHEMISTRY METHOD 09/17/2024 11:11 AM [facility] CO2 24 21 - 32 mmol/L LAB CHEMISTRY METHOD 09/17/2024 11:11 AM [facility] Anion Gap 8 3 - 11 LAB CHEMISTRY METHOD 09/17/2024 11:11 AM [facility] Glucose 103(H) 70 - 100 mg/dL LAB CHEMISTRY METHOD 09/17/2024 11:11 AM EDT [facility] BUN 49(H) 5 - 25 mg/dL LAB CHEMISTRY METHOD 09/17/2024 11:11 AM EDT [facility] Creatinine 1.74(H) 0.50 - 1.10 mg/dL LAB CHEMISTRY METHOD 09/17/2024 11:11 AM EDT [facility] eGFR 30(L) >=60 mL/min/1. 73m2 LAB CHEMISTRY METHOD 09/17/2024 11:11 AM EDT [facility] Comment:Calculation based on the Chronic Kidney Disease Epidemiology Collaboration (CKD-EPI) equation refit without adjustment for race. BUN/Creatinine Ratio 28.2 LAB CHEMISTRY METHOD 09/17/2024 11:11 AM EDT [facility] Calcium 9.3 8.5 - 10.5 mg/dL LAB CHEMISTRY METHOD 09/17/2024 11:11 AM EDT [facility] Blood Venous blood specimen / Unknown Venipuncture / Unknown 09/17/2024 8:40 AM EDT 09/17/2024 10:05 AM EDT Lincoln Crespo MD LAB BLOOD ORDERABLES Final Resu lt [facility] [address] [place] [address], from Last 3 Months or Most Recently Relevant to Health Maintenance Insurance MEDICARE [facility] MEDICARE Care Teams Physical Therapy Manager Relationship Specialty Start Date End Date John Avina DO [address] [place] [phone] PCP - General Internal Medicine 06/10/24
--- OUTSIDE RECORDS SUMMARY | 2024-12-23 11:35 | XMS_ITS | Encounter Summary ---
Author Organization [facility] Address [address] [place] [address] Care Team Providers Care Loss Prevention Lead Name Role Phone John Avina DO Primary Care Provider [phone] Encounter Details Date Type Department Care Team (Late st Contact Info) Description 09/09/2024 Lab Requisition [facility] - Main Lab [address] [facility] [place] [address] Lincoln Crespo MD [address] [place] [address] Essential (primary) hypertension; Atherosclerotic heart disease of [place] coronary artery without angina pectoris; Anemia, unspecified; Chronic kidney disease, unspecified Social History Tobacco Use Types Packs/Day Years [...] Associated Diagnosis Comments COMPLETE BLOOD COUNT Routine 09/10/2024 6:12 AM EDT Essential (primary) hypertension Atherosclerotic heart disease of [place] coronary artery without angina pectoris Anemia, unspecified Chronic kidney disease, unspecified BASIC METABOLIC PANEL Routine 09/10/2024 6:12 AM EDT Essential (primary) hypertension Atherosclerotic heart disease of [place] coronary artery without angina pectoris Anemia, unspecified Chronic kidney disease, unspecified documented in this encounter Results * (ABNORMAL) Basic metabolic panel (09/10/2024 6:12 AM EDT) Sodium 146(H) 133 - 145 mmol/L LAB CHEMISTRY METHOD 09/10/2024 10:04 AM [facility] Potassium 4.0 3.5 - 5.5 mmol/L LAB CHEMISTRY METHOD 09/10/2024 10:04 AM [facility] Chloride 113(H) 96 - 110 mmol/L LAB CHEMISTRY METHOD 09/10/2024 10:04 AM [facility] CO2 26 21 - 32 mmol/L LAB CHEMISTRY METHOD 09/10/2024 10:04 AM [facility] Anion Gap 7 3 - 11 LAB CHEMISTRY METHOD 09/10/2024 10:04 AM [facility] Glucose 84 70 - 100 mg/dL LAB CHEMISTRY METHOD 09/10/2024 10:04 AM [facility] BUN 44(H) 5 - 25 mg/dL LAB CHEMISTRY METHOD 09/10/2024 10:04 AM [facility] Creatinine 2.03(H) 0.50 - 1.10 mg/dL LAB CHEMISTRY METHOD 09/10/2024 10:04 AM [facility] LAB eGFR 25(L) >=60 mL/min/1. 73m2 LAB CHEMISTRY METHOD 09/10/2024 10:04 AM [facility] Comment:Calculation based on the Chronic Kidney Disease Epidemiology Collaboration (CKD-EPI) equation refit without adjustment for race. BUN/Creatinine Ratio 21.7 LAB CHEMISTRY METHOD 09/10/2024 10:04 AM [facility] Calcium 8.8 8.5 - 10.5 mg/dL LAB CHEMISTRY METHOD 09/10/2024 10:04 AM [facility] Blood Venous blood specimen / Unknown Venipuncture / Unknown 09/10/2024 6:12 AM EDT 09/10/2024 9:16 AM EDT us Lincoln Crespo MD LAB BLOOD ORDERABLES Final Resu lt [facility] [address] [place] [address], * (ABNORMAL) Complete blood count (09/10/2024 6:12 AM EDT) [facility] WBC 5.2 4.8 - 10.8 K/mcL LAB HEMETOLOGY METHOD 09/10/2024 9:33 AM EDT [facility] RBC 2.50(L) 3.80 - 4.80 M/mcL LAB HEMETOLOGY METHOD 09/10/2024 9:33 AM EDT [facility] Hemoglobin 8.6(L) 11.5 - 16.0 g/dL LAB HEMETOLOGY METHOD 09/10/2024 9:33 AM EDT [facility] Hematocrit 26.4(L) 35.0 - 47.0 % LAB HEMETOLOGY METHOD 09/10/2024 9[facility] MCV 106.5(H) 79.0 - 98.0 FL LAB HEMETOLOGY METHOD 09/10/2024 9:33 AM EDT [facility] MCH 34.7(H) 27.0 - 32.0 pcg LAB HEMETOLOGY METHOD 09/10/2024 9[facility] MCHC 32.6 32.0 - 37.0 g/dL LAB HEMETOLOGY METHOD 09/10/2024 9:[facility] RDW 19.2(H) 11.0 - 15.0 % LAB HEMETOLOGY METHOD 09/10/2024 9:33 AM EDT [facility] Platelets 161 130 - 400 K/mcL LAB HEMETOLOGY METHOD 09/10/2024 9:33 AM EDT [facility] MPV 9.3 7.0 - 11.0 FL LAB HEMETOLOGY METHOD 09/10/2024 9:33 AM EDT [facility] NRBC 0.0 <1.0 % LAB HEMETOLOGY METHOD 09/10/2024 9:33 AM EDT [facility] NRBC Absolute 0.00 <0.10 K/mcL LAB HEMETOLOGY METHOD 09/10/2024 9:33 AM EDT [facility] Blood Venous blood specimen / Unknown Venipuncture / Unknown 09/10/2024 6:12 AM EDT 09/10/2024 9:16 AM EDT us Lincoln Crespo MD LAB BLOOD ORDERABLES Final Resu lt [facility] ([facility]) [facility] [address] [place] [address], documented in this encounter Visit Diagnoses Diagnosis Essential (primary) hypertension Unspecified essential hypertension Atherosclerotic heart disease of [place] coronary artery without angina pectoris Anemia, unspecified Chronic kidney disease, unspecified documented in this encounter Care Teams Loss Prevention Lead Relationship Specialty Start Date End Date John Avina DO [address] [place] [phone] PCP - General Internal Medicine 06/10/24 documented as of this encounter
--- OUTSIDE RECORDS SUMMARY | 2024-12-23 11:35 | XMS_ITS | Encounter Summary ---
Author Organization [employer] Address [address] [place] [address] Care Team Providers Care Beverage Manager Name Role Phone John Avina DO Primary Care Provider [phone] Encounter Details Date Type Department Care Team (Late st Contact Info) Description 08/26/2024 Lab Requisition [facility] - Main Lab 299 [facility] [place] [address] Lincoln Crespo MD [address] [place] [address] Essential (primary) hypertension; Atherosclerotic heart disease of [place] coronary artery without angina pectoris; Anemia, unspecified; [...] Associated Diagnosis Comments COMPLETE BLOOD COUNT Routine 08/27/2024 5:31 AM EDT Essential (primary) hypertension Atherosclerotic heart disease of [place] coronary artery without angina pectoris Anemia, unspecified Chronic kidney disease, unspecified BASIC METABOLIC PANEL Routine 08/27/2024 5:31 AM EDT Essential (primary) hypertension Atherosclerotic heart disease of [place] coronary artery without angina pectoris Anemia, unspecified Chronic kidney disease, unspecified documented in this encounter Results * (ABNORMAL) Basic metabolic panel (08/27/2024 5:31 AM EDT) Sodium 144 133 - 145 mmol/L LAB CHEMISTRY METHOD 08/27/2024 10:08 AM [facility] Potassium 4.1 3.5 - 5.5 mmol/L LAB CHEMISTRY METHOD 08/27/2024 10:08 AM [facility] Chloride 111(H) 96 - 110 mmol/L LAB CHEMISTRY METHOD 08/27/2024 10:08 AM [facility] CO2 26 21 - 32 mmol/L LAB CHEMISTRY METHOD 08/27/2024 10:08 AM [facility] Anion Gap 7 3 - 11 LAB CHEMISTRY METHOD 08/27/2024 10:08 AM [facility] Glucose 86 70 - 100 mg/dL LAB CHEMISTRY METHOD 08/27/2024 10:08 AM [facility] BUN 41(H) 5 - 25 mg/dL LAB CHEMISTRY METHOD 08/27/2024 10:08 AM [facility] Creatinine 1.64(H) 0.50 - 1.10 mg/dL LAB CHEMISTRY METHOD 08/27/2024 10:08 AM [facility] eGFR 32(L) >=60 mL/min/1. 73m2 LAB CHEMISTRY METHOD 08/27/2024 10:08 AM [facility] Comment:Calculation based on the Chronic Kidney Disease Epidemiology Collaboration (CKD-EPI) equation refit without adjustment for race. BUN/Creatinine Ratio 25.0 LAB CHEMISTRY METHOD 08/27/2024 10:08 AM [facility] Calcium 8.6 8.5 - 10.5 mg/dL LAB CHEMISTRY METHOD 08/27/2024 10:08 AM [facility] Blood Venous blood specimen / Unknown Venipuncture / Unknown 08/27/2024 5:31 AM EDT 08/27/2024 8:43 AM EDT us Lincoln Crespo MD LAB BLOOD ORDERABLES Final Resu lt [facility] [address] [place] [address], * (ABNORMAL) Complete blood count (08/27/2024 5:31 AM EDT) [facility] WBC 5.4 4.8 - 10.8 K/mcL LAB [facility] RBC 2.70(L) 3.80 - 4.80 M/mcL LAB HEMETOLOGY METHOD 08/27/2024 9:02 AM [facility] Hemoglobin 9.0(L) 11.5 - 16.0 g/dL LAB HEMETOLOGY METHOD 08/27/2024 9:02 AM [facility] Hematocrit 27.9(L) 35.0 - 47.0 % LAB HEMETOLOGY METHOD 08/27/2024 9:02 AM [facility] MCV 104.1(H) 79.0 - 98.0 FL LAB HEMETOLOGY METHOD 08/27/2024 9:02 AM [facility] MCH 33.6(H) 27.0 - 32.0 pcg LAB HEMETOLOGY METHOD 08/27/2024 9:02 AM [facility] MCHC 32.3 32.0 - 37.0 g/dL LAB HEMETOLOGY METHOD 08/27/2024 9:02 AM [facility] RDW 19.1(H) 11.0 - 15.0 % LAB HEMETOLOGY METHOD 08/27/2024 9:02 AM [facility] Platelets 214 130 - 400 K/mcL LAB HEMETOLOGY METHOD 08/27/2024 9:02 AM [facility] MPV 9.3 7.0 - 11.0 FL LAB HEMETOLOGY METHOD 08/27/2024 9:02 AM [facility] NRBC 0.0 <1.0 % LAB HEMETOLOGY METHOD 08/27/2024 9:[address] [facility] NRBC Absolute 0.00 <0.10 K/mcL LAB HEMETOLOGY METHOD 08/27/2024 9:[address] [facility] Blood Venous blood specimen / Unknown Venipuncture / Unknown 08/27/2024 5:31 AM EDT 08/27/2024 8:51 AM EDT us Lincoln Crespo MD LAB BLOOD ORDERABLES Final Resu lt [facility] [address] [place] [address], documented in this encounter Visit Diagnoses Diagnosis Essential (primary) hypertension Unspecified essential hypertension Atherosclerotic heart disease of [place] coronary artery without angina pectoris Anemia, unspecified Chronic kidney disease, unspecified documented in this encounter Care Teams Beverage Manager Relationship Specialty Start Date End Date John Avina DO [address] [place] [phone] PCP - General Internal Medicine 06/10/24 documented as of this encounter
--- OUTSIDE RECORDS SUMMARY | 2024-12-23 11:35 | XMS_ITS | Clinical Summary ---
Author Organization [facility] Address [address] [facility] [address] [place] [address] Phone Care Team Providers Care Control Clerk Food And Beverage Name Role Phone Aniceto Emery MD Primary Care Provider [phone] Juliann Tse MD Unavailable [phone] Henrry Espino MD Unavailable [phone] Allergies Active Allergy Reactions Criticality Noted Date [...] Smoking Tobacco: Former Cigarettes 1 23 1 [phone] Education Answer Date Recorded Are you interested [...] VACCINE (1 - 1-dose 75+ series) 2021 INFLUENZA VACCINE (#1) 2024 9, 02/05/2018 COVID-19 VACCINE (3 2024-2 6 season) 2024 08/08/2020, 07/16/2020 HEPATITIS A VACCINES Aged Out [...] EST) SODIUM 138 135 - 145 mmol/L [facility] LIC# [id number] POTASSIUM 3.8 3.5 - 5.0 mmol/L [facility] LIC# [id number] CHLORIDE 104 98 - 108 mmol/L [facility] LIC# [id number] CO2 27 23 - 32 mmol/L [facility] LIC# [id number] BUN 28(H) 9 - 25 mg/dL [facility] LIC# [id number] CREATININE 1.26 0.7 - 1.3 mg/dL [facility] LIC# [id number] GLUCOSE 143(H) 70 - 100 mg/dL [facility] LIC# [id number] ALBUMIN 4.3 3.7 - 5.4 g/dL [facility] LIC# [id number] TOTAL PROTEIN 7.4 6.0 - 8.0 g/dL [facility] LIC# [id number] CALCIUM 9.8 8.8 - 10.5 mg/dL [facility] LIC# [id number] ALKALINE PHOSPHATASE 82 36 - 118 U/L [facility] LIC# [id number] TOTAL BILIRUBIN 0.5 0.2 - 1.2 mg/dL [facility] LIC# [id number] AST 15 9 - 30 U/L [facility] LIC# [id number] ALT 16 7 - 52 U/L [facility] LIC# [id number] GLOBULIN 3.1 2.3 - 4.2 g/dL [facility] LIC# [id number] EGFR 42 mL/min/1.7 3m2 [facility] LIC# [id number] Comment:Abnormal if <60 mL/m in/1.73m2. If patient is -Indonesian, multiply the result by 1.21. ANION GAP 7 5 - 17 mmol/L [facility] LIC# [id number] 06/04/2016 4:11 PM EST 06/04/2016 4:19 PM EST Henrry Espino MD LAB BLOOD ORDERABLES Final Result [facility] LIC# [id number] [address] [place] [address] from Last 3 Months or Most Recently Relevant to Health Maintenance Insurance PPO [place] [address] [place] [address] PPO PPO PPO PPO PPO [facility] PPO Advance Directives For more information, please contact: [phone] (9AM - 5PM [facility], Saturday-Saturday) Documents on File 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 PCP - Hematology/Oncology Medical Oncology 06/06/16 Juliann Tse MD [address] [place] [id number] [email or web address] Referring Physician Hematology and Oncology 04/25/16 Additional Source Comments The information contained in this document represents components of the legal health record. It is not the complete legal health record.[facility]
--- OUTSIDE RECORDS SUMMARY | 2024-12-23 11:35 | XMS_ITS | Encounter Summary ---
Author Organization [employer] Address [address] [place] [address] Care Team Providers Care Fabric Sourcer Name Role Phone John Avina DO Primary Care Provider [phone] Encounter Details Date Type Department Care Team (Late st Contact Info) Description 08/22/2024 Lab Requisition [facility] - Main Lab 299 [facility] [place] [address] Lincoln Crespo MD [address] [place] [address] Essential (primary) hypertension; Atherosclerotic heart disease of [place] coronary artery without angina pectoris; Anemia, unspecified Social History Tobacco Use Types Packs/Day [...] Associated Diagnosis Comments COMPLETE BLOOD COUNT Routine 08/24/2024 5:46 AM EDT Essential (primary) hypertension Atherosclerotic heart disease of [place] coronary artery without angina pectoris Anemia, unspecified COMPREHENSIVE METABOLIC PANEL Routine 08/24/2024 5:46 AM EDT Essential (primary) hypertension Atherosclerotic heart disease of [place] coronary artery without angina pectoris Anemia, unspecified documented in this encounter Results * (ABNORMAL) Comprehensive metabolic panel (08/24/2024 5:46 AM EDT) Sodium 144 133 - 145 mmol/L LAB CHEMISTRY METHOD 08/24/2024 9:15 AM EDT [facility] Potassium 4.0 3.5 - 5.5 mmol/L LAB CHEMISTRY METHOD 08/24/2024 9:15 AM [facility] Chloride 112(H) 96 - 110 mmol/L LAB CHEMISTRY METHOD 08/24/2024 9:15 AM [facility] CO2 23 21 - 32 mmol/L LAB CHEMISTRY METHOD 08/24/2024 9:15 AM [facility] Anion Gap 9 3 - 11 LAB CHEMISTRY METHOD 08/24/2024 9:15 AM [facility] Glucose 82 70 - 100 mg/dL LAB CHEMISTRY METHOD 08/24/2024 9:15 AM [facility] BUN 32(H) 5 - 25 mg/dL LAB CHEMISTRY METHOD 08/24/2024 9:15 AM [facility] Creatinine 1.88(H) 0.50 - 1.10 mg/dL LAB CHEMISTRY METHOD 08/24/2024 9:15 AM [facility] eGFR 27(L) >=60 mL/min/1. 73m2 LAB CHEMISTRY METHOD 08/24/2024 9:15 AM [facility] Comment:Calculation based on the Chronic Kidney Disease Epidemiology Collaboration (CKD-EPI) equation refit without adjustment for race. BUN/Creatinine Ratio 17.0 LAB CHEMISTRY METHOD 08/24/2024 9:15 AM [facility] Calcium 8.8 8.5 - 10.5 mg/dL LAB CHEMISTRY METHOD 08/24/2024 9:15 AM [facility] AST (SGOT) 13 10 - 42 unit/L LAB CHEMISTRY METHOD 08/24/2024 9:15 AM [facility] ALT (SGPT) 17 10 - 60 unit/L LAB CHEMISTRY METHOD 08/24/2024 9:15 AM [facility] Alkaline Phosphatase 69 42 - 121 unit/L LAB CHEMISTRY METHOD 08/24/2024 9:15 AM [facility] Total Protein 5.7(L) 6.0 - 8.0 g/dL LAB CHEMISTRY METHOD 08/24/2024 9:15 AM EDT [facility] Albumin 2.8(L) 3.2 - 5.0 g/dL LAB CHEMISTRY METHOD 08/24/2024 9:15 AM EDT [facility] Total Bilirubin 0.3 0.0 - 1.4 mg/dL LAB CHEMISTRY METHOD 08/24/2024 9:15 AM EDT [facility] Blood Venous blood specimen / Unknown Venipuncture / Unknown 08/24/2024 5:46 AM EDT 08/24/2024 8:26 AM EDT us Lincoln Crespo MD LAB BLOOD ORDERABLES Final Resu lt [facility] [address] [place] [address], [place] [phone] * (ABNORMAL) Complete blood count (08/24/2024 5:46 AM EDT) WBC 6.8 4.8 - 10.8 K/mcL LAB HEMETOLOGY METHOD 08/24/2024 8:45 AM [facility] RBC 2.50(L) 3.80 - 4.80 M/mcL LAB HEMETOLOGY METHOD 08/24/2024 8:45 AM [facility] Hemoglobin 8.6(L) 11.5 - 16.0 g/dL LAB HEMETOLOGY METHOD 08/24/2024 8:45 AM T [facility] Hematocrit 26.2(L) 35.0 - 47.0 % LAB HEMETOLOGY METHOD 08/24/2024 8:45 AM [facility] MCV 103.6(H) 79.0 - 98.0 FL LAB HEMETOLOGY METHOD 08/24/2024 8:45 AM EDT [facility] MCH 34.0(H) 27.0 - 32.0 pcg LAB HEMETOLOGY METHOD 08/24/2024 8:45 AM EDT [facility] MCHC 32.8 32.0 - 37.0 g/dL LAB HEMETOLOGY METHOD 08/24/2024 8:45 AM EDT [facility] RDW 18.7(H) 11.0 - 15.0 % LAB HEMETOLOGY METHOD 08/24/2024 8:45 AM EDT [facility] Platelets 192 130 - 400 K/mcL LAB HEMETOLOGY METHOD 08/24/2024 8:45 AM EDT [facility] MPV 9.3 7.0 - 11.0 FL LAB HEMETOLOGY METHOD 08/24/2024 8:45 AM EDT [facility] NRBC 0.0 <1.0 % LAB HEMETOLOGY METHOD 08/24/2024 8:45 AM EDT [facility] NRBC Absolute 0.00 <0.10 K/mcL LAB HEMETOLOGY METHOD 08/24/2024 8:45 AM EDT [facility] Blood Venous blood specimen / Unknown Venipuncture / Unknown 08/24/2024 5:46 AM EDT 08/24/2024 8:32 AM EDT us Lincoln Crespo MD LAB BLOOD ORDERABLES Final Resu lt [facility] [address] [place] [address], [place] [phone] documented in this encounter Visit Diagnoses Diagnosis Essential (primary) hypertension Unspecified essential hypertension Atherosclerotic heart disease of [place] coronary artery without angina pectoris Anemia, unspecified documented in this encounter Care Teams Fabric Sourcer Relationship Specialty Start Date End Date John Aivna DO [address] [place] [phone] PCP - General Internal Medicine 06/10/24 documented as of this encounter
--- OUTSIDE RECORDS SUMMARY | 2024-12-23 11:35 | XMS_ITS | Encounter Summary ---
Author Organization [facility] Address [address] [place] [address] Care Team Providers Care Training And Development Head Name Role Phone John Avina DO Primary Care Provider [phone] Encounter Details Date Type Department Care Team (Late st Contact Info) Description 09/05/2024 Lab Requisition [facility] - Main Lab 299 [facility] [address] Lincoln Crespo MD [address] [place] [address] Essential (primary) hypertension; Atherosclerotic heart disease of [place] coronary artery without angina pectoris; Anemia, unspecified [...] Associated Diagnosis Comments COMPLETE BLOOD COUNT Routine 09/07/2024 5:11 AM EDT Essential (primary) hypertension Atherosclerotic heart disease of [place] coronary artery without angina pectoris Anemia, unspecified COMPREHENSIVE METABOLIC PANEL Routine 09/07/2024 5:11 AM EDT Essential (primary) hypertension Atherosclerotic heart disease of [place] coronary artery without angina pectoris Anemia, unspecified documented in this encounter Results * (ABNORMAL) Comprehensive metabolic panel (09/07/2024 5:11 AM EDT) Sodium 144 133 - 145 mmol/L LAB CHEMISTRY METHOD 09/07/2024 2:49 PM EDT [facility] Potassium 3.9 3.5 - 5.5 mmol/L LAB CHEMISTRY METHOD 09/07/2024 2:49 PM [facility] Chloride 109 96 - 110 mmol/L LAB CHEMISTRY METHOD 09/07/2024 2:49 PM [facility] CO2 23 21 - 32 mmol/L LAB CHEMISTRY METHOD 09/07/2024 2:49 PM [facility] Anion Gap 12(H) 3 - 11 LAB CHEMISTRY METHOD 09/07/2024 2:49 PM [facility] Glucose 77 70 - 100 mg/dL LAB CHEMISTRY METHOD 09/07/2024 2:49 PM [facility] BUN 48(H) 5 - 25 mg/dL LAB CHEMISTRY METHOD 09/07/2024 2:49 PM [facility] Creatinine 1.93(H) 0.50 - 1.10 mg/dL LAB CHEMISTRY METHOD 09/07/2024 2:49 PM [facility] eGFR 26(L) >=60 mL/min/1. 73m2 LAB CHEMISTRY METHOD 09/07/2024 2:49 PM [facility] Comment:Calculation based on the Chronic Kidney Disease Epidemiology Collaboration (CKD-EPI) equation refit without adjustment for race. BUN/Creatinine Ratio 24.9 LAB CHEMISTRY METHOD 09/07/2024 2:49 PM [facility] Calcium 8.9 8.5 - 10.5 mg/dL LAB CHEMISTRY METHOD 09/07/2024 2:49 PM [facility] AST (SGOT) 6(L) 10 - 42 unit/L LAB CHEMISTRY METHOD 09/07/2024 2:49 PM [facility] ALT (SGPT) 14 10 - 60 unit/L LAB CHEMISTRY METHOD 09/07/2024 2:49 PM [facility] Alkaline Phosphatase 61 42 - 121 unit/L LAB CHEMISTRY METHOD 09/07/2024 2:49 PM [facility] Total Protein 6.1 6.0 - 8.0 g/dL LAB CHEMISTRY METHOD 09/07/2024 2:49 PM EDT [facility] Albumin 3.0(L) 3.2 - 5.0 g/dL LAB CHEMISTRY METHOD 09/07/2024 2:49 PM EDT [facility] Total Bilirubin 0.5 0.0 - 1.4 mg/dL LAB CHEMISTRY METHOD 09/07/2024 2:49 PM EDT [facility] Blood Venous blood specimen / Unknown Venipuncture / Unknown 09/07/2024 5:11 AM EDT 09/07/2024 2:11 PM EDT us Lincoln Crespo MD LAB BLOOD ORDERABLES Final Resu lt [facility] [address] [place] [address], [place] [phone] * (ABNORMAL) Complete blood count (09/07/2024 5:11 AM EDT) WBC 5.1 4.8 - 10.8 K/mcL LAB HEMETOLOGY METHOD 09/07/2024 3:07 PM EDT [facility] RBC 2.40(L) 3.80 - 4.80 M/mcL LAB HEMETOLOGY METHOD 09/07/2024 3:07 PM EDT [facility] Hemoglobin 8.2(L) 11.5 - 16.0 g/dL LAB HEMETOLOGY METHOD 09/07/2024 3:07 PM EDT [facility] Hematocrit 25.9(L) 35.0 - 47.0 % LAB HEMETOLOGY METHOD 09/07/2024 3:07 PM EDT [facility] MCV 107.9(H) 79.0 - 98.0 FL LAB HEMETOLOGY METHOD 09/07/2024 3:07 PM EDT [facility] MCH 34.2(H) 27.0 - 32.0 pcg LAB HEMETOLOGY METHOD 09/07/2024 3:07 PM EDT [facility] MCHC 31.7(L) 32.0 - 37.0 g/dL LAB HEMETOLOGY METHOD 09/07/2024 3:07 PM EDT [facility] RDW 19.3(H) 11.0 - 15.0 % LAB HEMETOLOGY METHOD 09/07/2024 3:07 PM EDT [facility] Platelets 176 130 - 400 K/mcL LAB HEMETOLOGY METHOD 09/07/2024 3:07 PM EDT [facility] MPV 9.0 7.0 - 11.0 FL LAB HEMETOLOGY METHOD 09/07/2024 3:07 PM EDT [facility] NRBC 0.0 <1.0 % LAB HEMETOLOGY METHOD 09/07/2024 3:07 PM EDT [facility] NRBC Absolute 0.00 <0.10 K/mcL LAB HEMETOLOGY METHOD 09/07/2024 3:07 PM EDT [facility] Blood Venous blood specimen / Unknown Venipuncture / Unknown 09/07/2024 5:11 AM EDT 09/07/2024 12:03 PM EDT us Lincoln Crespo MD LAB BLOOD ORDERABLES Final Resu lt [facility] [address] [place] [address], [place] [phone] documented in this encounter Visit Diagnoses Diagnosis Essential (primary) hypertension Unspecified essential hypertension Atherosclerotic heart disease of [place] coronary artery without angina pectoris Anemia, unspecified documented in this encounter Care Teams Training And Development Head Relationship Specialty Start Date End Date John Avina DO [address] [place] [phone] PCP - General Internal Medicine 06/10/24 documented as of this encounter
--- OUTSIDE RECORDS SUMMARY | 2024-12-23 11:35 | XMS_ITS | Encounter Summary ---
Author Organization [employer] Address [address] [place] [address] Care Team Providers Care Meat And Poultry Inspector Name Role Phone John Avina DO Primary Care Provider [phone] Encounter Details Date Type Department Care Team (Late st Contact Info) Description 08/30/2024 Lab Requisition [facility] - Main Lab 299 [facility] [place] [address] Lincoln Crespo MD [address] [place] [address] Essential (primary) hypertension; Atherosclerotic heart disease of [place] coronary artery without angina pectoris; Anemia, unspecified [...] Associated Diagnosis Comments COMPLETE BLOOD COUNT Routine 08/31/2024 5:18 AM EDT Essential (primary) hypertension Atherosclerotic heart disease of [place] coronary artery without angina pectoris Anemia, unspecified COMPREHENSIVE METABOLIC PANEL Routine 08/31/2024 5:18 AM EDT Essential (primary) hypertension Atherosclerotic heart disease of [place] coronary artery without angina pectoris Anemia, unspecified documented in this encounter Results * (ABNORMAL) Comprehensive metabolic panel (08/31/2024 5:18 AM EDT) Sodium 141 133 - 145 mmol/L LAB CHEMISTRY METHOD 08/31/2024 1:17 PM EDT [facility] Potassium 4.7 3.5 - 5.5 mmol/L LAB CHEMISTRY METHOD 08/31/2024 1:17 PM [facility] Comment:Hemolysis present Chloride 110 96 - 110 mmol/L LAB CHEMISTRY METHOD 08/31/2024 1:17 PM [facility] CO2 15(L) 21 - 32 mmol/L LAB CHEMISTRY METHOD 08/31/2024 1:17 PM [facility] Anion Gap 16(H) 3 - 11 LAB CHEMISTRY METHOD 08/31/2024 1:17 PM [facility] Glucose 67(L) 70 - 100 mg/dL LAB CHEMISTRY METHOD 08/31/2024 1:17 PM [facility] BUN 49(H) 5 - 25 mg/dL LAB CHEMISTRY METHOD 08/31/2024 1:17 PM [facility] Creatinine 1.99(H) 0.50 - 1.10 mg/dL LAB CHEMISTRY METHOD 08/31/2024 1:17 PM [facility] eGFR 25(L) >=60 mL/min/1. 73m2 LAB CHEMISTRY METHOD 08/31/2024 1:17 PM [facility] Comment:Calculation based on the Chronic Kidney Disease Epidemiology Collaboration (CKD-EPI) equation refit without adjustment for race. BUN/Creatinine Ratio 24.6 LAB CHEMISTRY METHOD 08/31/2024 1:17 PM [facility] Calcium 9.1 8.5 - 10.5 mg/dL LAB CHEMISTRY METHOD 08/31/2024 1:17 PM [facility] AST (SGOT) 14 10 - 42 unit/L LAB CHEMISTRY METHOD 08/31/2024 1:17 PM [facility] ALT (SGPT) 18 10 - 60 unit/L LAB CHEMISTRY METHOD 08/31/2024 1:17 PM [facility] Alkaline Phosphatase 70 42 - 121 unit/L LAB CHEMISTRY METHOD 08/31/2024 1:17 PM EDT [facility] Total Protein 6.6 6.0 - 8.0 g/dL LAB CHEMISTRY METHOD 08/31/2024 1:17 PM EDT [facility] Albumin 3.1(L) 3.2 - 5.0 g/dL LAB CHEMISTRY METHOD 08/31/2024 1:17 PM EDT [facility] Total Bilirubin 0.4 0.0 - 1.4 mg/dL LAB CHEMISTRY METHOD 08/31/2024 1:17 PM EDT [facility] Blood Venous blood specimen / Unknown 08/31/2024 5:18 AM EDT 08/31/2024 11:34 AM EDT [facility] - 08/31/2024 1:17 PM EDT Short sample, interpret results with caution us Lincoln Crespo MD LAB BLOOD ORDERABLES Final Resu lt [facility] [address] [place] [address], [place] [phone] * (ABNORMAL) Complete blood count (08/31/2024 5:18 AM EDT) WBC 5.2 4.8 - 10.8 K/mcL LAB HEMETOLOGY METHOD 08/31/2024 1:43 PM EDT [facility] RBC 2.50(L) 3.80 - 4.80 M/mcL LAB HEMETOLOGY METHOD 08/31/2024 1:43 PM EDT [facility] Hemoglobin 8.6(L) 11.5 - 16.0 g/dL LAB HEMETOLOGY METHOD 08/31/2024 1:43 PM EDT [facility] Hematocrit 27.1(L) 35.0 - 47.0 % LAB HEMETOLOGY METHOD 08/31/2024 1:43 PM EDT [facility] MCV 106.7(H) 79.0 - 98.0 FL LAB HEMETOLOGY METHOD 08/31/2024 1:43 PM EDT [facility] MCH 33.9(H) 27.0 - 32.0 pcg LAB HEMETOLOGY METHOD 08/31/2024 1:43 PM EDT [facility] MCHC 31.7(L) 32.0 - 37.0 g/dL LAB HEMETOLOGY METHOD 08/31/2024 1:43 PM EDT [facility] RDW 19.2(H) 11.0 - 15.0 % LAB HEMETOLOGY METHOD 08/31/2024 1:43 PM EDT [facility] Platelets 223 130 - 400 K/mcL LAB HEMETOLOGY METHOD 08/31/2024 1:43 PM EDT [facility] MPV 9.6 7.0 - 11.0 FL LAB HEMETOLOGY METHOD 08/31/2024 1:43 PM EDT [facility] NRBC 0.0 <1.0 % LAB HEMETOLOGY METHOD 08/31/2024 1:43 PM EDT [facility] NRBC Absolute 0.00 <0.10 K/mcL LAB HEMETOLOGY METHOD 08/31/2024 1:43 PM EDT [facility] Blood Venous blood specimen / Unknown 08/31/2024 5:18 AM EDT 08/31/2024 11:31 AM EDT us Lincoln Crespo MD LAB BLOOD ORDERABLES Final Resu lt [facility] [address] [place] [address], documented in this encounter Visit Diagnoses Diagnosis Essential (primary) hypertension Unspecified essential hypertension Atherosclerotic heart disease of [place] coronary artery without angina pectoris Anemia, unspecified documented in this encounter Care Teams Meat And Poultry Inspector Relationship Specialty Start Date End Date John Avina DO [address] [place] [phone] PCP - General Internal Medicine 06/10/24 documented as of this encounter
--- OUTSIDE RECORDS SUMMARY | 2024-12-23 11:35 | XMS_ITS | Encounter Summary ---
Author Organization [email or web address] Address [id number] [place] [phone] Care Team Providers Care Frame Hand Name Role Phone John Avina DO Primary Care Provider [phone] Encounter Details Date Type Department Care Team (Late st Contact Info) Description 09/18/2024 Lab Requisition [facility] - Main Lab [address] [facility] [address] [place] [address] Lincoln Crespo MD [address] [place] [address] Essential (primary) hypertension; Atherosclerotic heart disease of [place] coronary artery without angina pectoris; Anemia, unspecified [...] documented as of this encounter Visit Diagnoses Diagnosis Essential (primary) hypertension Unspecified essential hypertension Atherosclerotic heart disease of [place] coronary artery without angina pectoris Anemia, unspecified documented in this encounter Care Teams Frame Hand Relationship Specialty Start Date End Date John Avina DO [address] [place] [phone] PCP - General Internal Medicine 06/10/24 documented as of this encounter
--- OUTSIDE RECORDS SUMMARY | 2024-12-23 11:35 | XMS_ITS | Encounter Summary ---
Author Organization [employer] Address [address] [place] [address] Care Team Providers Care Crossbar Frame Wirer Name Role Phone John Avina DO Primary Care Provider [phone] Encounter Details Date Type Department Care Team (Late st Contact Info) Description 08/14/2024 Lab Requisition [facility] - Main Lab [address] [facility] [place] [address] Lincoln Crespo MD [address] [place] [address] Essential (primary) hypertension; Atherosclerotic heart disease of [place] coronary artery without angina pectoris; Anemia, unspecified [...] Associated Diagnosis Comments COMPLETE BLOOD COUNT Routine 08/17/2024 5:41 AM EDT Essential (primary) hypertension Atherosclerotic heart disease of [place] coronary artery without angina pectoris Anemia, unspecified COMPREHENSIVE METABOLIC PANEL Routine 08/17/2024 5:41 AM EDT Essential (primary) hypertension Atherosclerotic heart disease of [place] coronary artery without angina pectoris Anemia, unspecified documented in this encounter Results * (ABNORMAL) Comprehensive metabolic panel (08/17/2024 5:41 AM EDT) Sodium 141 133 - 145 mmol/L LAB CHEMISTRY METHOD 08/17/2024 1:27 PM EDT [facility] Potassium 3.8 3.5 - 5.5 mmol/L LAB CHEMISTRY METHOD 08/17/2024 1:27 PM [facility] LAB Chloride 108 96 - 110 mmol/L LAB CHEMISTRY METHOD 08/17/2024 1:27 PM [facility] LAB CO2 23 21 - 32 mmol/L LAB CHEMISTRY METHOD 08/17/2024 1:27 PM [facility] LAB Anion Gap 10 3 - 11 LAB CHEMISTRY METHOD 08/17/2024 1:27 PM [facility] LAB Glucose 69(L) 70 - 100 mg/dL LAB CHEMISTRY METHOD 08/17/2024 1:27 PM [facility] BUN 34(H) 5 - 25 mg/dL LAB CHEMISTRY METHOD 08/17/2024 1:27 PM [facility] LAB Creatinine 1.53(H) 0.50 - 1.10 mg/dL LAB CHEMISTRY METHOD 08/17/2024 1:27 PM [facility] LAB eGFR 35(L) >=60 mL/min/1. 73m2 LAB CHEMISTRY METHOD 08/17/2024 1:27 PM [facility] LAB Comment:Calculation based on the Chronic Kidney Disease Epidemiology Collaboration (CKD-EPI) equation refit without adjustment for race. BUN/Creatinine Ratio 22.2 LAB CHEMISTRY METHOD 08/17/2024 1:27 PM [facility] LAB Calcium 8.7 8.5 - 10.5 mg/dL LAB CHEMISTRY METHOD 08/17/2024 1:27 PM [facility] LAB AST (SGOT) 9(L) 10 - 42 unit/L LAB CHEMISTRY METHOD 08/17/2024 1:27 PM [facility] LAB ALT (SGPT) 8(L) 10 - 60 unit/L LAB CHEMISTRY METHOD 08/17/2024 1:27 PM [facility] LAB Alkaline Phosphatase 67 42 - 121 unit/L LAB CHEMISTRY METHOD 08/17/2024 1:27 PM [facility] LAB Total Protein 5.5(L) 6.0 - 8.0 g/dL LAB CHEMISTRY METHOD 08/17/2024 1:27 PM EDT [facility] LAB Albumin 2.4(L) 3.2 - 5.0 g/dL LAB CHEMISTRY METHOD 08/17/2024 1:27 PM EDT [facility] LAB Total Bilirubin 0.4 0.0 - 1.4 mg/dL LAB CHEMISTRY METHOD 08/17/2024 1:27 PM EDT [facility] LAB Blood Venous blood specimen / Unknown Venipuncture / Unknown 08/17/2024 5:41 AM EDT 08/17/2024 10:15 AM EDT us Lincoln Crespo MD LAB BLOOD ORDERABLES Final Resu lt [facility] LAB [address] [place] [address], * (ABNORMAL) Complete blood count (08/17/2024 5:41 AM EDT) WBC 7.2 4.8 - 10.8 K/mcL LAB HEMETOLOGY METHOD 08/17/2024 11:28 AM [facility] LAB RBC 2.90(L) 3.80 - 4.80 M/mcL LAB HEMETOLOGY METHOD 08/17/2024 11:28 AM EDT [facility] LAB Hemoglobin 9.6(L) 11.5 - 16.0 g/dL LAB HEMETOLOGY METHOD 08/17/2024 11:28 AM EDT [facility] LAB Hematocrit 29.9(L) 35.0 - 47.0 % LAB HEMETOLOGY METHOD [facility]24 [facility] MCV 103.5(H) 79.0 - 98.0 FL LAB HEMETOLOGY METHOD 08/17/2024 11:28 AM EDT [facility] LAB MCH 33.2(H) 27.0 - 32.0 pcg LAB HEMETOLOGY METHOD 08/17/2024 11:28 AM [facility] LAB MCHC 32.1 32.0 - 37.0 g/dL LAB HEMETOLOGY METHOD 08/17/2024 11:28 AM [facility] LAB RDW 18.2(H) 11.0 - 15.0 % LAB HEMETOLOGY METHOD 08/17/2024 11:28 AM [facility] LAB Platelets 215 130 - 400 K/mcL LAB HEMETOLOGY METHOD 08/17/2024 11:28 AM [facility] LAB MPV 9.2 7.0 - 11.0 FL LAB HEMETOLOGY METHOD 08/17/2024 11:28 AM [facility] LAB NRBC 0.0 <1.0 % LAB HEMETOLOGY METHOD 08/17/2024 11:28 AM [facility] LAB NRBC Absolute 0.00 <0.10 K/mcL LAB HEMETOLOGY METHOD 08/17/2024 11:28 AM [facility] LAB Blood Venous blood specimen / Unknown Venipuncture / Unknown 08/17/2024 5:41 AM EDT 08/17/2024 10:15 AM EDT us Lincoln Crespo MD LAB BLOOD ORDERABLES Final Resu lt [facility] LAB [address] [place] [address], documented in this encounter Visit Diagnoses Diagnosis Essential (primary) hypertension Unspecified essential hypertension Atherosclerotic heart disease of [place] coronary artery without angina pectoris Anemia, unspecified documented in this encounter Care Teams Crossbar Frame Wirer Relationship Specialty Start Date End Date John Avina DO [address] [place] [phone] PCP - General Internal Medicine 06/10/24 documented as of this encounter
--- OUTSIDE RECORDS SUMMARY | 2024-12-23 11:35 | XMS_ITS | Clinical Summary ---
Author Organization [facility] Address [address] [place] [address] Phone Care Team Providers Care Instrumental Teacher Name Role Phone FabriceJohn solares Primary Care Provider [phone] Allergies Active Allergy Reactions Criticality Noted Date [...] Visit [facility] [address] [place] [address] Mejia Soler MD Chronic kidney disease, stage 4 (severe) (HCC) (Primary Dx); Anemia in chronic kidney disease; Renal osteodystrophy from Last 3 Months Social History Tobacco [...] Visit [facility] [address] [place] [address] Mejia Soler MD [address] [facility] [address] [place] [address] Health Maintenance Due Date Last [...] [facility] Medicare [facility] Care Teams Instrumental Teacher Relationship Specialty Start Date End Date John Avina DO [address] [place] [address] PCP - General Internal Medicine 10/23/23
--- OUTSIDE RECORDS SUMMARY | 2024-12-23 11:35 | XMS_ITS | Encounter Summary ---
Author Organization [employer] Address [address] [place] [phone] Care Team Providers Care Dry Cell And Battery Assembler Name Role Phone John Avina DO Primary Care Provider [phone] Encounter Details Date Type Department Care Team (Late st Contact Info) Description 08/12/2024 Lab Requisition [facility] - Main Lab [address] [facility] [place] [address] Lincoln Crespo MD [address] [place] [address] Essential (primary) hypertension; Atherosclerotic heart disease of [place] coronary artery without angina pectoris; Anemia, unspecified; Chronic kidney disease, unspecified; Hypothyroidism, unspecified; Hyperlipidemia, unspecified Social History Tobacco Use Types Packs/Day [...] Associated Diagnosis Comments COMPLETE BLOOD COUNT Routine 08/12/2024 4:49 AM EDT Essential (primary) hypertension Atherosclerotic heart disease of [place] coronary artery without angina pectoris Anemia, unspecified Chronic kidney disease, unspecified Hypothyroidism, unspecified Hyperlipidemia, unspecified COMPREHENSIVE METABOLIC PANEL Routine 08/12/2024 4:49 AM EDT Essential (primary) hypertension Atherosclerotic heart disease of [place] coronary artery without angina pectoris Anemia, unspecified Chronic kidney disease, unspecified Hypothyroidism, unspecified Hyperlipidemia, unspecified documented in this encounter Results * (ABNORMAL) Comprehensive metabolic panel (08/12/2024 4:49 AM EDT) Sodium 140 133 - 145 mmol/L LAB CHEMISTRY METHOD 08/12/2024 11:43 AM [facility] Potassium 4.4 3.5 - 5.5 mmol/L LAB CHEMISTRY METHOD 08/12/2024 11:43 AM [facility] Chloride 104 96 - 110 mmol/L LAB CHEMISTRY METHOD 08/12/2024 11:43 AM [facility] CO2 30 21 - 32 mmol/L LAB CHEMISTRY METHOD 08/12/2024 11:43 AM [facility] Anion Gap 6 3 - 11 LAB CHEMISTRY METHOD 08/12/2024 11:43 AM [facility] Glucose 81 70 - 100 mg/dL LAB CHEMISTRY METHOD 08/12/2024 11:43 AM [facility] BUN 35(H) 5 - 25 mg/dL LAB CHEMISTRY METHOD 08/12/2024 11:43 AM [facility] Creatinine 1.81(H) 0.50 - 1.10 mg/dL LAB CHEMISTRY METHOD 08/12/2024 11:43 AM [facility] LAB eGFR 29(L) >=60 mL/min/1. 73m2 LAB CHEMISTRY METHOD 08/12/2024 11:43 AM [facility] LAB Comment:Calculation based on the Chronic Kidney Disease Epidemiology Collaboration (CKD-EPI) equation refit without adjustment for race. BUN/Creatinine Ratio 19.3 LAB CHEMISTRY METHOD 08/12/2024 11:43 AM [facility] Calcium 8.3(L) 8.5 - 10.5 mg/dL LAB CHEMISTRY METHOD 08/12/2024 11:43 AM [facility] AST (SGOT) 7(L) 10 - 42 unit/L LAB CHEMISTRY METHOD 08/12/2024 11:43 AM [facility] ALT (SGPT) 7(L) 10 - 60 unit/L LAB CHEMISTRY METHOD 08/12/2024 11:43 AM EDT [facility] LAB Alkaline Phosphatase 65 42 - 121 unit/L LAB CHEMISTRY METHOD 08/12/2024 11:43 AM T [facility] LAB Total Protein 5.5(L) 6.0 - 8.0 g/dL LAB CHEMISTRY METHOD 08/12/2024 11:43 AM [facility] Albumin 2.3(L) 3.2 - 5.0 g/dL LAB CHEMISTRY METHOD 08/12/2024 11:43 AM T [facility] LAB Total Bilirubin 0.5 0.0 - 1.4 mg/dL LAB CHEMISTRY METHOD 08/12/2024 11:43 AM [facility] Blood Venous blood specimen / Unknown Venipuncture / Unknown 08/12/2024 4:49 AM EDT 08/12/2024 10:25 AM EDT Lincoln Crespo MD LAB BLOOD ORDERABLES Final Resu lt [facility] [address] [place] [address], * (ABNORMAL) Complete blood count (08/12/2024 4:49 AM EDT) WBC 6.8 4.8 - 10.8 K/mcL LAB HEMETOLOGY METHOD 08/12/2024 11:01 AM [facility] RBC 2.20(L) 3.80 - 4.80 M/mcL LAB HEMETOLOGY METHOD 08/12/2024 11:01 AM [facility] Hemoglobin 7.4(L) 11.5 - 16.0 g/dL LAB HEMETOLOGY METHOD 08/12/2024 11:01 AM [facility] Hematocrit 23.3(L) 35.0 - 47.0 % LAB HEMETOLOGY METHOD 08/12/2024 11:01 AM EDT [facility] LAB MCV 108.4(H) 79.0 - 98.0 FL LAB HEMETOLOGY METHOD 08/12/2024 11:01 AM EDT [facility] MCH 34.4(H) 27.0 - 32.0 pcg LAB [facility]EMETOLOGY [facility]24 [facility] MCHC 31.8(L) 32.0 - 37.0 g/dL LAB HEMETOLOGY METHOD 08/12/2024 11:01 AM EDT [facility] RDW 17.7(H) 11.0 - 15.0 % LAB HEMETOLOGY METHOD 08/12/2024 [facility] Platelets 203 130 - 400 K/mcL LAB HEMETOLOGY METHOD 08/12/2024 11[facility] MPV 9.8 7.0 - 11.0 FL LAB HEMETOLOGY METHOD 08/12/2024 11[facility] NRBC 0.0 <1.0 % LAB HEMETOLOGY METHOD 08/12/2024 11:[facility] NRBC Absolute 0.00 <0.10 K/mcL LAB HEMETOLOGY METHOD 08/12/2024 11:01 AM [facility] Blood Venous blood specimen / Unknown Venipuncture / Unknown 08/12/2024 4:49 AM EDT 08/12/2024 10:25 AM EDT us Lincoln Crespo MD LAB BLOOD ORDERABLES Final Resu lt [facility] [address] [place] [address], [place] [phone] documented in this encounter Visit Diagnoses Diagnosis Essential (primary) hypertension Unspecified essential hypertension Atherosclerotic heart disease of [place] coronary artery without angina pectoris Anemia, unspecified Chronic kidney disease, unspecified Hypothyroidism, unspecified Hyperlipidemia, unspecified documented in this encounter Care Teams Dry Cell And Battery Assembler Relationship Specialty Start Date End Date John Avina DO [address] [place] [phone] PCP - General Internal Medicine 06/10/24 documented as of this encounter
--- OUTSIDE RECORDS SUMMARY | 2024-12-23 11:35 | XMS_ITS | Encounter Summary ---
Author Organization [email or web address] [facility] Address [address] [place] [address] Care Team Providers Care Primer Inserting Machine Adjuster Name Role Phone John Avina DO Primary Care Provider [phone] Encounter Details Date Type Department Care Team (Late st Contact Info) Description 09/02/2024 Lab Requisition [facility] - Main Lab [address] [facility] [place] [address] Lincoln Crespo MD [address] [place] [address] Essential (primary) hypertension; Atherosclerotic heart disease of [place] coronary artery without angina pectoris; Anemia, unspecified; [...] Associated Diagnosis Comments COMPLETE BLOOD COUNT Routine 09/03/2024 7:35 AM EDT Essential (primary) hypertension Atherosclerotic heart disease of [place] coronary artery without angina pectoris Anemia, unspecified Chronic kidney disease, unspecified BASIC METABOLIC PANEL Routine 09/03/2024 7:35 AM EDT Essential (primary) hypertension Atherosclerotic heart disease of [place] coronary artery without angina pectoris Anemia, unspecified Chronic kidney disease, unspecified documented in this encounter Results * (ABNORMAL) Basic metabolic panel (09/03/2024 7:35 AM EDT) Sodium 142 133 - 145 mmol/L LAB CHEMISTRY METHOD 09/03/2024 9:[address] [facility] Potassium 4.0 3.5 - 5.5 mmol/L LAB CHEMISTRY METHOD 09/03/2024 9:[address] [facility] Chloride 112(H) 96 - 110 mmol/L LAB CHEMISTRY METHOD 09/03/2024 9:[address] [facility] CO2 22 21 - 32 mmol/L LAB CHEMISTRY METHOD 09/03/2024 9:[address] [facility] Anion Gap 8 3 - 11 LAB CHEMISTRY METHOD 09/03/2024 9:[address] [facility] Glucose 90 70 - 100 mg/dL LAB CHEMISTRY METHOD 09/03/2024 9:[address] [facility] BUN 48(H) 5 - 25 mg/dL LAB CHEMISTRY METHOD 09/03/2024 9:[address] [facility] Creatinine 1.72(H) 0.50 - 1.10 mg/dL LAB CHEMISTRY METHOD 09/03/2024 9:[address] [facility] eGFR 30(L) >=60 mL/min/1. 73m2 LAB CHEMISTRY METHOD 09/03/2024 9:[address] [facility] Comment:Calculation based on the Chronic Kidney Disease Epidemiology Collaboration (CKD-EPI) equation refit without adjustment for race. BUN/Creatinine Ratio 27.9 LAB CHEMISTRY METHOD 09/03/2024 9:[address] [facility] Calcium 9.3 8.5 - 10.5 mg/dL LAB CHEMISTRY METHOD 09/03/2024 9:[address] [facility] Blood Venous blood specimen / Unknown Venipuncture / Unknown 09/03/2024 7:35 AM EDT 09/03/2024 8:28 AM EDT us Lincoln Crespo MD LAB BLOOD ORDERABLES Final Resu lt [facility] [address] [place] [address], * (ABNORMAL) Complete blood count (09/03/2024 7:35 AM EDT) [facility] Signature WBC 4.5(L) 4.8 - 10.8 K/mcL LAB HEMETOLOGY METHOD 09/03/2024 8:46 AM EDT [facility] RBC 2.60(L) 3.80 - 4.80 M/mcL LAB HEMETOLOGY METHOD 09/03/2024 8:46 AM EDT [facility] Hemoglobin 8.8(L) 11.5 - 16.0 g/dL LAB HEMETOLOGY METHOD 09/03/2024 8:[address] [facility] Hematocrit 27.0(L) 35.0 - 47.0 % LAB HEMETOLOGY METHOD [facility] MCV 105.1(H) 79.0 - 98.0 FL LAB HEMETOLOGY METHOD 09/03[facility]2024 [facility] MCH 34.2(H) 27.0 - 32.0 pcg LAB HEMETOLOGY METHOD 09/03/2024 8:[address] [facility] MCHC 32.6 32.0 - 37.0 g/dL LAB HEMETOLOGY METHOD 09/03/2024 [facility] RDW 19.1(H) 11.0 - 15.0 % LAB HEMETOLOGY METHOD 09/03/2024 8:46 AM EDT [facility] Platelets 200 130 - 400 K/mcL LAB HEMETOLOGY METHOD 09/03/2024 8:46 AM EDT [facility] MPV 9.2 7.0 - 11.0 FL LAB HEMETOLOGY METHOD 09/03/2024 8:46 AM EDT [facility] NRBC 0.0 <1.0 % LAB HEMETOLOGY METHOD 09/03/2024 8:46 AM EDT [facility] NRBC Absolute 0.00 <0.10 K/mcL LAB HEMETOLOGY METHOD 09/03/2024 8:46 AM EDT [facility] Blood Venous blood specimen / Unknown Venipuncture / Unknown 09/03/2024 7:35 AM EDT 09/03/2024 8:28 AM EDT us Lincoln Crespo MD LAB BLOOD ORDERABLES Final Resu lt [facility] [address] [place] [address], documented in this encounter Visit Diagnoses Diagnosis Essential (primary) hypertension Unspecified essential hypertension Atherosclerotic heart disease of [place] coronary artery without angina pectoris Anemia, unspecified Chronic kidney disease, unspecified documented in this encounter Care Teams Primer Inserting Machine Adjuster Relationship Specialty Start Date End Date John Avina DO [address] [place] [phone] PCP - General Internal Medicine 06/10/24 documented as of this encounter
--- OUTSIDE RECORDS SUMMARY | 2024-12-23 11:35 | XMS_ITS | Encounter Summary ---
Author Organization [employer] [facility] Address [address] [place] [address] Care Team Providers Care Heavy Repairer Name Role Phone John Avina DO Primary Care Provider [phone] Encounter Details Date Type Department Care Team (Late st Contact Info) Description 09/14/2024 Lab Requisition [facility] - Main Lab [address] [facility] [place] [address] Lincoln Crespo MD [address] [place] [address] Essential (primary) hypertension; Atherosclerotic heart disease of [place] coronary artery without angina pectoris; Anemia, unspecified [...] Associated Diagnosis Comments COMPLETE BLOOD COUNT Routine 09/15/2024 7:07 AM EDT Essential (primary) hypertension Atherosclerotic heart disease of [place] coronary artery without angina pectoris Anemia, unspecified COMPREHENSIVE METABOLIC PANEL Routine 09/15/2024 7:05 AM EDT Essential (primary) hypertension Atherosclerotic heart disease of [place] coronary artery without angina pectoris Anemia, unspecified documented in this encounter Results * (ABNORMAL) Complete blood count (09/15/2024 7:07 AM EDT) WBC 5.1 4.8 - 10.8 K/mcL LAB HEMETOLOGY METHOD 09/15/2024 12:07 PM EDT [facility] RBC 2.30(L) 3.80 - 4.80 M/mcL LAB HEMETOLOGY METHOD 09/15/2024 12:07 PM [facility] Hemoglobin 8.0(L) 11.5 - 16.0 g/dL LAB HEMETOLOGY METHOD 09/15/2024 12:07 PM [facility] LAB Hematocrit 24.4(L) 35.0 - 47.0 % LAB HEMETOLOGY METHOD 09/15/2024 12:07 PM [facility] LAB MCV 107.0(H) 79.0 - 98.0 FL LAB HEMETOLOGY METHOD 09/15/2024 12:07 PM [facility] LAB MCH 35.1(H) 27.0 - 32.0 pcg LAB HEMETOLOGY METHOD 09/15/2024 12:07 PM [facility] LAB MCHC 32.8 32.0 - 37.0 g/dL LAB HEMETOLOGY METHOD 09/15/2024 12:07 PM [facility] RDW 19.0(H) 11.0 - 15.0 % LAB HEMETOLOGY METHOD 09/15/2024 12:07 PM [facility] Platelets 141 130 - 400 K/mcL LAB HEMETOLOGY METHOD 09/15/2024 12:07 PM [facility] LAB MPV 9.2 7.0 - 11.0 FL LAB HEMETOLOGY METHOD 09/15/2024 12:07 PM [facility] NRBC 0.0 <1.0 % LAB HEMETOLOGY METHOD 09/15/2024 12:07 PM [facility] LAB NRBC Absolute 0.00 <0.10 K/mcL LAB HEMETOLOGY METHOD 09/15/2024 12:07 PM [facility] LAB Blood Venous blood specimen / Unknown Venipuncture / Unknown 09/15/2024 7:07 AM EDT 09/15/2024 10:49 AM EDT us Lincoln Crespo MD LAB BLOOD ORDERABLES Final Resu lt [facility] [address] [place] [address], [place] [phone] * (ABNORMAL) Comprehensive metabolic panel (09/15/2024 7:05 AM EDT) Sodium 143 133 - 145 mmol/L LAB CHEMISTRY METHOD 09/15/2024 12:43 PM [facility] Potassium 3.6 3.5 - 5.5 mmol/L LAB CHEMISTRY METHOD 09/15/2024 12:43 PM [facility] Chloride 110 96 - 110 mmol/L LAB CHEMISTRY METHOD 09/15/2024 12:43 PM [facility] CO2 22 21 - 32 mmol/L LAB CHEMISTRY METHOD 09/15/2024 12:43 PM [facility] Anion Gap 11 3 - 11 LAB CHEMISTRY METHOD 09/15/2024 12:43 PM [facility] Glucose 90 70 - 100 mg/dL LAB CHEMISTRY METHOD 09/15/2024 12:43 PM [facility] BUN 49(H) 5 - 25 mg/dL LAB CHEMISTRY METHOD 09/15/2024 12:43 PM [facility] Creatinine 1.80(H) 0.50 - 1.10 mg/dL LAB CHEMISTRY METHOD 09/15/2024 12:43 PM [facility] LAB eGFR 29(L) >=60 mL/min/1. 73m2 LAB CHEMISTRY METHOD 09/15/2024 12:43 PM [facility] Comment:Calculation based on the Chronic Kidney Disease Epidemiology Collaboration (CKD-EPI) equation refit without adjustment for race. BUN/Creatinine Ratio 27.2 LAB CHEMISTRY METHOD 09/15/2024 12:43 PM EDT [facility] Calcium 8.9 8.5 - 10.5 mg/dL LAB CHEMISTRY METHOD 09/15/2024 12:43 PM T [facility] AST (SGOT) 6(L) 10 - 42 unit/L LAB CHEMISTRY METHOD 09/15/2024 12:43 PM [facility] ALT (SGPT) 15 10 - 60 unit/L LAB CHEMISTRY METHOD 09/15/2024 12:43 PM T [facility] Alkaline Phosphatase 56 42 - 121 unit/L LAB CHEMISTRY METHOD 09/15/2024 12:43 PM [facility] Total Protein 6.0 6.0 - 8.0 g/dL LAB CHEMISTRY METHOD 09/15/2024 12:43 PM [facility] Albumin 3.0(L) 3.2 - 5.0 g/dL LAB CHEMISTRY METHOD 09/15/2024 12:43 PM [facility] Total Bilirubin 0.5 0.0 - 1.4 mg/dL LAB CHEMISTRY METHOD 09/15/2024 12:43 PM [facility] Blood Venous blood specimen / Unknown Venipuncture / Unknown 09/15/2024 7:05 AM EDT 09/15/2024 10:50 AM EDT us Lincoln Crespo MD LAB BLOOD ORDERABLES Final Resu lt [facility] [address] [place] [address], documented in this encounter Visit Diagnoses Diagnosis Essential (primary) hypertension Unspecified essential hypertension Atherosclerotic heart disease of [place] coronary artery without angina pectoris Anemia, unspecified documented in this encounter Care Teams Heavy Repairer Relationship Specialty Start Date End Date John Avina DO [address] [place] [phone] PCP - General Internal Medicine 06/10/24 documented as of this encounter
--- OUTSIDE RECORDS SUMMARY | 2024-12-23 11:35 | XMS_ITS | Encounter Summary ---
Author Organization [facility] Address [address] [place] [address] Care Team Providers Care Veterinary Pathologist Name Role Phone John Avina DO Primary Care Provider [phone] Encounter Details Date Type Department Care Team (Late st Contact Info) Description 08/15/2024 Lab Requisition [facility] - Main Lab [address] [facility] [place] [address] Lincoln Crespo MD [address] [place] [address] Other ulcerative colitis with rectal [...] Date/Time Associated Diagnosis Comments COMPLETE BLOOD COUNT STAT 08/15/2024 9:21 AM EDT Other ulcerative colitis with rectal bleeding (CMS/HCC V24, CMS/HCC V28) Anemia in chronic kidney disease (CODE) documented in this encounter Results * (ABNORMAL) Complete blood count (08/15/2024 9:21 AM EDT) WBC 6.7 4.8 - 10.8 K/[facility] LAB HEMETOLOGY METHOD 08/15/2024 11:29 AM EDT [facility] RBC 3.10(L) 3.80 - 4.80 M/[facility] LAB HEMETOLOGY METHOD 08/15/2024 11:[address] [facility] LAB Hemoglobin 10.4(L) 11.5 - 16.0 g/dL LAB HEMETOLOGY METHOD 08/15/2024 11:[address] [facility] LAB Hematocrit 31.4(L) 35.0 - 47.0 % LAB HEMETOLOGY METHOD 08/15/2024 11:[address] [facility] LAB MCV 100.6(H) 79.0 - 98.0 FL LAB HEMETOLOGY METHOD 08/15/2024 11:[address] [facility] LAB MCH 33.3(H) 27.0 - 32.0 pcg LAB HEMETOLOGY METHOD 08/15/2024 11:[address] [facility] LAB MCHC 33.1 32.0 - 37.0 g/dL LAB HEMETOLOGY METHOD 08/15/2024 11:[address] [facility] LAB RDW 18.6(H) 11.0 - 15.0 % LAB HEMETOLOGY METHOD 08/15/2024 11:[address] [facility] LAB Platelets 228 130 - 400 K/mcL LAB HEMETOLOGY METHOD 08/15/2024 11:[address] [facility] LAB MPV 9.4 7.0 - 11.0 FL LAB HEMETOLOGY METHOD 08/15/2024 11:[address] [facility] LAB NRBC 0.0 <1.0 % LAB HEMETOLOGY METHOD 08/15/2024 11:[address] [facility] LAB NRBC Absolute 0.00 <0.10 K/mcL LAB HEMETOLOGY METHOD 08/15/2024 11:[address] [facility] LAB Blood Venous blood specimen / Unknown Venipuncture / Unknown 08/15/2024 9:21 AM EDT 08/15/2024 10:30 AM EDT Lincoln Crespo MD LAB BLOOD ORDERABLES Final Resu lt [facility] LAB [address] [place] [address], documented in this encounter Visit Diagnoses Diagnosis Other ulcerative colitis with rectal bleeding (CMS/HCC V24, CMS/HCC V28) Anemia in chronic kidney disease (CODE) documented in this encounter Care Teams Veterinary Pathologist Relationship Specialty Start Date End Date John Avina DO [address] [place] [phone] PCP - General Internal Medicine 06/10/24 documented as of this encounter
--- OUTSIDE RECORDS SUMMARY | 2024-12-23 11:35 | XMS_ITS | Encounter Summary ---
Author Organization [facility] Address [address] [place] [address] Care Team Providers Care Magistrate Assistant Name Role Phone John Avina DO Primary Care Provider [phone] Encounter Details Date Type Department Care Team (Late st Contact Info) Description 08/16/2024 Lab Requisition [facility] - Main Lab [address] [facility] [place] [address] Lincoln Crespo MD [address] [place] [address] Other ulcerative colitis with rectal [...] Associated Diagnosis Comments COMPLETE BLOOD COUNT Routine 08/16/2024 8:48 AM EDT Other ulcerative colitis with rectal bleeding (CMS/HCC V24, CMS/HCC V28) Anemia in chronic kidney disease (CODE) documented in this encounter Results * (ABNORMAL) Complete blood count (08/16/2024 8:48 AM EDT) WBC 7.2 4.8 - 10.8 K/[facility] LAB HEMETOLOGY METHOD 08/16/2024 10:41 AM EDT [facility] LAB RBC 2.90(L) 3.80 - 4.80 M/[facility] LAB HEMETOLOGY METHOD 08/16/2024 10:41 AM [facility] LAB Hemoglobin 9.7(L) 11.5 - 16.0 g/dL LAB HEMETOLOGY METHOD 08/16/2024 10:41 AM [facility] LAB Hematocrit 29.9(L) 35.0 - 47.0 % LAB HEMETOLOGY METHOD 08/16/2024 10:41 AM [facility] LAB MCV 101.7(H) 79.0 - 98.0 FL LAB HEMETOLOGY METHOD 08/16/2024 10:41 AM [facility] LAB MCH 33.0(H) 27.0 - 32.0 pcg LAB HEMETOLOGY METHOD 08/16/2024 10:41 AM [facility] LAB MCHC 32.4 32.0 - 37.0 g/dL LAB HEMETOLOGY METHOD 08/16/2024 10:41 AM [facility] LAB RDW 18.1(H) 11.0 - 15.0 % LAB HEMETOLOGY METHOD 08/16/2024 10:41 AM [facility] LAB Platelets 246 130 - 400 K/mcL LAB HEMETOLOGY METHOD 08/16/2024 10:41 AM [facility] LAB MPV 9.2 7.0 - 11.0 FL LAB HEMETOLOGY METHOD 08/16/2024 10:41 AM [facility] LAB NRBC 0.0 <1.0 % LAB HEMETOLOGY METHOD 08/16/2024 10:41 AM [facility] LAB NRBC Absolute 0.00 <0.10 K/mcL LAB HEMETOLOGY METHOD 08/16/2024 10:41 AM [facility] LAB Blood Venous blood specimen / Unknown Venipuncture / Unknown 08/16/2024 8:48 AM EDT 08/16/2024 10:02 AM EDT Lincoln Crespo MD LAB BLOOD ORDERABLES Final Resu lt [facility] LAB [address] [place] [address], documented in this encounter Visit Diagnoses Diagnosis Other ulcerative colitis with rectal bleeding (CMS/HCC V24, CMS/HCC V28) Anemia in chronic kidney disease (CODE) documented in this encounter Care Teams Magistrate Assistant Relationship Specialty Start Date End Date John Avina DO [address] [place] [phone] PCP - General Internal Medicine 06/10/24 documented as of this encounter
--- OUTSIDE RECORDS SUMMARY | 2024-12-23 11:35 | XMS_ITS | Encounter Summary ---
Author Organization [facility] Address [address] [place] [address] Care Team Providers Care Baling Press Operator Name Role Phone John Avina DO Primary Care Provider [phone] Encounter Details Date Type Department Care Team (Late st Contact Info) Description 09/16/2024 Lab Requisition [facility] - Main Lab [address] [facility] [place] [address] Lincoln Crespo MD [address] [place] [address] Essential (primary) hypertension; Atherosclerotic heart disease of [place] coronary artery without angina pectoris; Anemia, unspecified; [...] Associated Diagnosis Comments COMPLETE BLOOD COUNT Routine 09/17/2024 8:40 AM EDT Essential (primary) hypertension Atherosclerotic heart disease of [place] coronary artery without angina pectoris Anemia, unspecified Chronic kidney disease, unspecified BASIC METABOLIC PANEL Routine 09/17/2024 8:40 AM EDT Essential (primary) hypertension Atherosclerotic heart disease of [place] coronary artery without angina pectoris Anemia, unspecified Chronic kidney disease, unspecified documented in this encounter Results * (ABNORMAL) Basic metabolic panel (09/17/2024 8:40 AM EDT) Sodium 141 133 - 145 mmol/L LAB CHEMISTRY METHOD 09/17/2024 11:11 AM [facility] LAB Potassium 4.0 3.5 - 5.5 mmol/L LAB CHEMISTRY METHOD 09/17/2024 11:11 AM [facility] LAB Chloride 109 96 - 110 mmol/L LAB CHEMISTRY METHOD 09/17/2024 11:11 AM [facility] LAB CO2 24 21 - 32 mmol/L LAB CHEMISTRY METHOD 09/17/2024 11:11 AM [facility] LAB Anion Gap 8 3 - 11 LAB CHEMISTRY METHOD 09/17/2024 11:11 AM [facility] LAB Glucose 103(H) 70 - 100 mg/dL LAB CHEMISTRY METHOD 09/17/2024 11:11 AM [facility] LAB BUN 49(H) 5 - 25 mg/dL LAB CHEMISTRY METHOD 09/17/2024 11:11 AM [facility] LAB Creatinine 1.74(H) 0.50 - 1.10 mg/dL LAB CHEMISTRY METHOD 09/17/2024 11:11 AM [facility] LAB eGFR 30(L) >=60 mL/min/1. 73m2 LAB CHEMISTRY METHOD 09/17/2024 11:11 AM [facility] LAB Comment:Calculation based on the Chronic Kidney Disease Epidemiology Collaboration (CKD-EPI) equation refit without adjustment for race. BUN/Creatinine Ratio 28.2 LAB CHEMISTRY METHOD 09/17/2024 11:11 AM [facility] LAB Calcium 9.3 8.5 - 10.5 mg/dL LAB CHEMISTRY METHOD 09/17/2024 11:11 AM [facility] LAB Blood Venous blood specimen / Unknown Venipuncture / Unknown 09/17/2024 8:40 AM EDT 09/17/2024 10:05 AM EDT us Lincoln Crespo MD LAB BLOOD ORDERABLES Final Resu lt [facility] LAB [address] [place] [address], * (ABNORMAL) Complete blood count (09/17/2024 8:40 AM EDT) [facility] WBC 6.5 4.8 - 10.8 K/mcL LAB HEMETOLOGY METHOD 09/17/2024 10:30 AM EDT [facility] LAB RBC 2.70(L) 3.80 - 4.80 M/mcL LAB HEMETOLOGY METHOD 09/17/2024 10:30 AM EDT [facility] LAB Hemoglobin 9.4(L) 11.5 - 16.0 g/dL LAB HEMETOLOGY METHOD 09/17/2024 10:30 AM [facility] LAB Hematocrit 28.1(L) 35.0 - 47.0 % LAB HEMETOLOGY METHOD 09/17/2024 10:30 AM [facility] LAB MCV 106.0(H) 79.0 - 98.0 FL LAB HEMETOLOGY METHOD [facility] MCH 35.5(H) 27.0 - 32.0 pcg LAB HEMETOLOGY METHOD 09/17/2024 10:30 AM [facility] LAB MCHC 33.5 32.0 - 37.0 g/dL LAB HEMETOLOGY METHOD [facility]24 [facility] RDW 18.7(H) 11.0 - 15.0 % LAB HEMETOLOGY METHOD [facility]/17[facility]2024 [facility] Platelets 183 130 - 400 K/mcL LAB HEMETOLOGY METHOD 09/17/2024 10:30 AM [facility] LAB MPV 9.4 7.0 - 11.0 FL LAB HEMETOLOGY METHOD 09/17/2024 10:30 AM EDT [facility] LAB NRBC 0.0 <1.0 % LAB HEMETOLOGY METHOD 09/17/2024 10:30 AM EDT [facility] LAB NRBC Absolute 0.00 <0.10 K/mcL LAB HEMETOLOGY METHOD 09/17/2024 10:30 AM EDT [facility] LAB Blood Venous blood specimen / Unknown Venipuncture / Unknown 09/17/2024 8:40 AM EDT 09/17/2024 10:05 AM EDT us Lincoln Crespo MD LAB BLOOD ORDERABLES Final Resu lt [facility] LAB [address] [place] [address], documented in this encounter Visit Diagnoses Diagnosis Essential (primary) hypertension Unspecified essential hypertension Atherosclerotic heart disease of [place] coronary artery without angina pectoris Anemia, unspecified Chronic kidney disease, unspecified documented in this encounter Care Teams Baling Press Operator Relationship Specialty Start Date End Date John Avina DO [address] [place] [phone] PCP - General Internal Medicine 06/10/24 documented as of this encounter
--- OUTSIDE RECORDS SUMMARY | 2024-12-23 11:35 | XMS_ITS | Encounter Summary ---
Author Organization [employer] [facility] Address [address] [place] [address] Care Team Providers Care Window Installation Subcontractor Name Role Phone John Avina DO Primary Care Provider [phone] Encounter Details Date Type Department Care Team (Late st Contact Info) Description 08/19/[address] [facility] - Main Lab [address] [facility] [place] [address] Lincoln Crespo MD [address] [place] [address] Essential (primary) hypertension; Atherosclerotic heart disease of [place] coronary artery without angina pectoris; Anemia, unspecified; [...] Associated Diagnosis Comments COMPLETE BLOOD COUNT Routine 08/20/2024 6:56 AM EDT Essential (primary) hypertension Atherosclerotic heart disease of [place] coronary artery without angina pectoris Anemia, unspecified Chronic kidney disease, unspecified BASIC METABOLIC PANEL Routine 08/20/2024 6:56 AM EDT Essential (primary) hypertension Atherosclerotic heart disease of [place] coronary artery without angina pectoris Anemia, unspecified Chronic kidney disease, unspecified documented in this encounter Results * (ABNORMAL) Basic metabolic panel (08/20/2024 6:56 AM EDT) Sodium 140 133 - 145 mmol/L LAB CHEMISTRY METHOD 08/20/2024 10:17 AM [facility] LAB Potassium 4.1 3.5 - 5.5 mmol/L LAB CHEMISTRY METHOD 08/20/2024 10:17 AM [facility] LAB Chloride 107 96 - 110 mmol/L LAB CHEMISTRY METHOD 08/20/2024 10:17 AM [facility] LAB CO2 25 21 - 32 mmol/L LAB CHEMISTRY METHOD 08/20/2024 10:17 AM [facility] LAB Anion Gap 8 3 - 11 LAB CHEMISTRY METHOD 08/20/2024 10:17 AM [facility] LAB Glucose 100 70 - 100 mg/dL LAB CHEMISTRY METHOD 08/20/2024 10:17 AM [facility] LAB BUN 31(H) 5 - 25 mg/dL LAB CHEMISTRY METHOD 08/20/2024 10:17 AM [facility] LAB Creatinine 1.63(H) 0.50 - 1.10 mg/dL LAB CHEMISTRY METHOD 08/20/2024 10:17 AM [facility] LAB eGFR 32(L) >=60 mL/min/1. 73m2 LAB CHEMISTRY METHOD 08/20/2024 10:17 AM [facility] LAB Comment:Calculation based on the Chronic Kidney Disease Epidemiology Collaboration (CKD-EPI) equation refit without adjustment for race. BUN/Creatinine Ratio 19.0 LAB CHEMISTRY METHOD 08/20/2024 10:17 AM [facility] LAB Calcium 9.2 8.5 - 10.5 mg/dL LAB CHEMISTRY METHOD 08/20/2024 10:17 AM [facility] LAB Blood Venous blood specimen / Unknown Venipuncture / Unknown 08/20/2024 6:56 AM EDT 08/20/2024 9:28 AM EDT us Lincoln Crespo MD LAB BLOOD ORDERABLES Final Resu lt [facility] LAB [address] [place] [address], * (ABNORMAL) Complete blood count (08/20/2024 6:56 AM EDT) [facility] WBC 8.6 4.8 - 10.8 K/mcL LAB HEMETOLOGY METHOD 08/20/2024 9:58 AM [facility] LAB RBC 3.30(L) 3.80 - 4.80 M/mcL LAB HEMETOLOGY METHOD 08/20[facility]24 [facility] Hemoglobin 10.9(L) 11.5 - 16.0 g/dL LAB HEMETOLOGY METHOD 08/20/2024 9:58 AM [facility] LAB Hematocrit 34.1(L) 35.0 - 47.0 % LAB HEMETOLOGY METHOD 08/20/2024 9:58 AM [facility] LAB MCV 102.1(H) 79.0 - 98.0 FL LAB HEMETOLOGY METHOD 08/20/2024 9:58 AM [facility] LAB MCH 32.6(H) 27.0 - 32.0 pcg LAB HEMETOLOGY METHOD 08/20/2024 9:58 AM [facility] LAB MCHC 32.0 32.0 - 37.0 g/dL LAB HEMETOLOGY METHOD 08/20/2024 9:58 AM [facility] LAB RDW 18.5(H) 11.0 - 15.0 % LAB HEMETOLOGY METHOD 08/20/2024 9:58 AM [facility] LAB Platelets 264 130 - 400 K/mcL LAB HEMETOLOGY METHOD 08/20/2024 9:58 AM [facility] LAB MPV 9.0 7.0 - 11.0 FL LAB HEMETOLOGY METHOD 08/20/2024 9:58 AM [facility] LAB NRBC 0.0 <1.0 % LAB HEMETOLOGY METHOD 08/20/2024 9:58 AM EDT [facility] LAB NRBC Absolute 0.00 <0.10 K/mcL LAB HEMETOLOGY METHOD 08/20/2024 9:58 AM EDT [facility] LAB Blood Venous blood specimen / Unknown Venipuncture / Unknown 08/20/2024 6:56 AM EDT 08/20/2024 9:29 AM EDT us Lincoln Crespo MD LAB BLOOD ORDERABLES Final Resu lt [facility] LAB [address] [place] [address], documented in this encounter Visit Diagnoses Diagnosis Essential (primary) hypertension Unspecified essential hypertension Atherosclerotic heart disease of [place] coronary artery without angina pectoris Anemia, unspecified Chronic kidney disease, unspecified documented in this encounter Care Teams Window Installation Subcontractor Relationship Specialty Start Date End Date John Avina DO [address] [place] [phone] PCP - General Internal Medicine 06/10/24 documented as of this encounter
== END 2024-12-23 10:06 | disposition home or self-care (01) ==
LOC: HO.HOSX 10:05
PROVIDERS: Visit Provider Physician Assistant
DX: M19.012 Primary osteoarthritis, left shoulder (principal)
CPT/HCPCS: 20610; 73030; 99212; J0665; J1100; J2003

== ENCOUNTER 2024-12-23 11:58 | Outpatient (AMB) | payer MEDICARE, SELFPAY ==
--- NOTE | 2024-12-23 12:01 | MHC.OFFVIS ---
Vital Signs 12/23/24 12:02 Height 5 ft 1 in Weight 127 lb BMI 24.0 Intake Visit Reasons: OV- Left shoulder pain, last injection 04/12/20 Intake Note: Tonia is a 79 year old right hand dominant woman who presents today for a new problem visit for re-evaluation of her left shoulder pain. She was last treated in our office by Dr Sherice Hugo on 04/12/2020 where she received a left shoulder injection. Patient states that injection gave her relief for about 3-4 months. She states her pain has worsened since, primarily on the posterior aspect of the shoulder. She is taking Tylenol with minimal relief. Denies any new injuries affecrting her left shoulder. Allergies diphenhydramine (From Benadryl) Allergy (Intermediate, Verified 12/23/24 12:07) Dizziness esomeprazole (From NEXIUM) Allergy (Intermediate, Verified 12/23/24 12:07) CHEST PAIN omeprazole (From PRILOSEC) Allergy (Intermediate, Verified 12/23/24 12:07) CHEST PAIN Medication List - Last Reconciled 12/23/24 by BERT Pacheco-C [acetaminophen 1,000 mg PO DAILY PRN] allopurinol 300 mg PO DAILY ascorbic acid (vitamin C) (Vitamin C) 500 mg PO DAILY biotin 1 mg PO DAILY bumetanide 1 mg PO DAILY 90 days calcium carbonate (Calcium 600) 600 mg PO DAILY carvedilol 6.25 mg PO BID cholecalciferol (vitamin D3) (Vitamin D3) 50 mcg PO DAILY clopidogrel 75 mg PO DAILY cranberry 500 mg PO DAILY cyanocobalamin (vitamin B-12) 5,000 mcg PO DAILY d-mannose 500 mg PO DAILY exemestane 25 mg PO DAILY folic acid 1 mg PO DAILY hydralazine 25 mg See Protocol PO BID levothyroxine 100 mcg PO 4XW rosuvastatin 20 mg PO DAILY vitamin E (dl, acetate) 450 mg PO DAILY HPI HPI OV- Left shoulder pain, last injection 04/12/20: Details: 79 yo female presents to the offie today for ongoing left shoulder pain. She was last seen in 03/2020 and received a left shoulder injection. She states the injection was quite helpful and she was able to perform most activities. Since the injection wore off, she has pain with daily activities such as raising her arm, sleeping at night and carrying objects. She is a diabetic and states her sugars are well controlled. [facility] Medical History (Updated 12/23/24 @ 12:29 by Valencia Segovia PA-C) Chronic back pain Impacted cerumen of left ear Lower back pain Left hip pain CAD (coronary atherosclerotic disease) Osteoarthritis Hypothyroidism Multiple myeloma CKD stage 3 due to type 2 diabetes mellitus Impingement syndrome, shoulder Left shoulder pain CHF (congestive heart failure) Closed left hip fracture CAD (coronary artery disease) CHF (congestive heart failure) Cervix prolapsed into vagina History of blood transfusion (~02/01/23) Diabetes mellitus HFrEF (heart failure with reduced ejection fraction) Cardiomyopathy Normal colonoscopy Type 2 diabetes mellitus Diverticulosis Irritable bowel syndrome Pulmonary emboli GERD (gastroesophageal reflux disease) Nephrolithiasis Hypoparathyroidism Papillary thyroid carcinoma HTN (hypertension) Polymyalgia rheumatica Hyperglycemia Chronic anemia Anemia Surgical History Status post hip surgery (~08/04/23) History of colonoscopy (~07/30/18) Stented coronary artery Breast mass, right H/O endoscopy History of cholecystectomy H/O total thyroidectomy Family History Sister CHF (congestive heart failure) Daughter Breast cancer Son Kidney stones Social History Household Members: Other Household Members Other:: other Housing: House Do you presently have visiting nurse or other home services: Yes Alcohol intake: current Alcohol intake frequency: does not drink Patient Tobacco Use Status: Former Tobacco user Years Smoked: 30 +/- e-Cigarette/Vaping Use: Never Used Second Hand Smoke Exposure: No Advance Directives Date on File: 06/27/24 service: No Current occupational status: retired Current occupation: Right Handed Cognitive needs: Yes (cane) Hearing needs: No Vision needs: Yes (reading glasses) Review of Systems Const All systems reviewed & are unremarkable except as noted in HPI and below Physical Exam Vital Signs: BMI result Body Mass Index 24.0 Const General: cooperative and no acute distress Orientation/consciousness: patient oriented x3 Resp Effort & Inspection: normal respiratory effort and able to speak in complete sentences Cardio Peripheral pulses: Peripheral pulses 2+ throughout Neuro General: patient oriented x3 Extrem Other: Left shoulder normal to inspection she has full range of motion in all planes with tenderness over the AC joint. She has good strength with rotator cuff testing in his neurovascularly intact. Office Procedures AMB Joint Injection/Aspiration Joint Injection/Aspiration Primary Site: left shoulder Prep: site was prepped using aseptic technique, ethochloride spray was applied and injection warnings given Injected: 40 mg of, with 3 mL of, 1% plain lidocaine, 0.25% bupivacaine, in the subcromial space and decadron Approach Used: posterolateral Coding - Glenohumeral/Tronchanteric Bursa/Intraarticular Procedure code (CPT) selection complete Results Reviewed Results Reviewed: X-rays of the left shoulder obtained in the office today and reviewed by me show mild AC joint arthritis Assessment & Plan Assessment & Plan (1) Arthritis of left acromioclavicular joint: Code(s): M19.012 - Primary osteoarthritis, left shoulder Category: Medical Plan: We discussed options today which includes physical therapy to work on postural training and strengthening exercises. We also discussed the benefits of steroid injection to help with inflammation and pain which she would like to proceed with. Left shoulder was injected today with steroid which she tolerated well. The patient will monitor her sugar levels over the next few days and if there is any complication she will present to the emergency department. Patient can increase activities as tolerated if symptoms persist or worsen she will see me back otherwise follow up as needed. Orders: Orders XR shoulder LT min 2V Today M25.512 - Pain in left shoulder Coding Level of Care Code New Pt Level 3 (72460) Complex EM visit Add On G2211 Diagnoses Arthritis of left acromioclavicular joint M19.012 CPT Codes Coding - Joint 7: 26241 - Glenohumeral/Tronchanteric Bursa/Intraarticular ([id number])
[2024-12-23 12:02] VITALS: BMI 24.0
== END 2024-12-23 13:30 | disposition home or self-care (01) ==
LOC: HO.HOS 11:58
PROVIDERS: PCP Internal Medicine; Visit Provider Physician Assistant
DX: M19.012 Primary osteoarthritis, left shoulder (principal)
CPT/HCPCS: 20610; 99213

== ENCOUNTER → 2024-12-23 11:59 | Outpatient (BNV) | payer MEDICARE, SELFPAY | PROVIDERS: Visit Provider Radiology Diagnostic Radiology | DX: M19.012 Primary osteoarthritis, left shoulder (principal) | CPT/HCPCS: 73030 ==

== ENCOUNTER 2024-12-28 14:54 | Outpatient (AMB) | payer MEDICARE, SELFPAY ==
--- NOTE | 2024-12-28 14:56 | MHC.OFFVIS ---
Vital Signs 12/28/24 14:59 Height 5 ft 1 in Weight 123 lb BMI 23.2 BP 142/65 H Blood Pressure Location Lt brachial Position Sitting Respiration 18 Pulse 77 Pulse Source Pulse Oximeter Pulse Oximetry (%) 97 Oxygen Delivery Method Room Air Intake Visit Reasons: Pain in left hip Bellows Filler Required: No Allergies diphenhydramine (From Benadryl) Allergy (Intermediate, Verified 12/28/24 14:55) Dizziness esomeprazole (From NEXIUM) Allergy (Intermediate, Verified 12/28/24 14:55) CHEST PAIN omeprazole (From PRILOSEC) Allergy (Intermediate, Verified 12/28/24 14:55) CHEST PAIN HPI Comments Details: The patient is a 79-year-old female presenting with chronic low back pain and left hip pain. The chronic low back pain has been present for several years, primarily localized to the left buttock and into left leg, and is described as stabbing and sharp, exacerbated by getting out of bed and prolonged sitting. The pain occasionally affects her walking, requiring the use of a walker, and she has undergone physical therapy this year. The left hip pain is associated with a history of a left hip fracture, for which she underwent open reduction and internal fixation (ORIF) with screws in place. The hip x-ray shows no displacement or deformity, and the screws are stable. The patient reports that the hip pain is severe enough to prevent her from lying on her left side and affects her ability to get out of bed in the morning. Her complex medical history includes osteoarthritis, multiple myeloma, chronic kidney disease stage 3, diabetes mellitus, congestive heart failure, polymyalgia rheumatica, chronic anemia, and a history of pulmonary embolism. She also has osteoporosis in the left hip, which complicates potential treatment options. The patient experiences neuropathy in her feet, attributed to a past episode of shingles. - Onset and Timing: Chronic pain present for several years - Quality and Character: Stabbing and sharp pain - Primary Location: Left buttock and low back - Radiation: Pain localized, does not radiate down the leg - Exacerbating Factors: Getting out of bed, prolonged sitting, bending down - Relieving Factors: None specifically mentioned - Interference with Activities: Affects walking, requires use of a walker - Affect: Pain impacts daily functioning, particularly in the morning and when getting out of bed - Analgesia: Currently using Tylenol and occasionally oxycodone; gabapentin was discontinued - Adverse Effects: No specific adverse effects from medications mentioned - Activities of Daily Living: Pain affects walking and requires use of a walker - Aberrant Drug Related Behaviors: No aberrant behaviors reported [facility] Medical History Chronic back pain Impacted cerumen of left ear Lower back pain Left hip pain CAD (coronary atherosclerotic disease) Osteoarthritis Hypothyroidism Multiple myeloma CKD stage 3 due to type 2 diabetes mellitus Impingement syndrome, shoulder Left shoulder pain CHF (congestive heart failure) Closed left hip fracture CAD (coronary artery disease) CHF (congestive heart failure) Cervix prolapsed into vagina History of blood transfusion (~02/01/23) Diabetes mellitus HFrEF (heart failure with reduced ejection fraction) Cardiomyopathy Normal colonoscopy Type 2 diabetes mellitus Diverticulosis Irritable bowel syndrome Pulmonary emboli GERD (gastroesophageal reflux disease) Nephrolithiasis Hypoparathyroidism Papillary thyroid carcinoma HTN (hypertension) Polymyalgia rheumatica Hyperglycemia Chronic anemia Anemia Surgical History Status post hip surgery (~08/04/23) History of colonoscopy (~07/30/18) Stented coronary artery Breast mass, right H/O endoscopy History of cholecystectomy H/O total thyroidectomy Family History Sister CHF (congestive heart failure) Daughter Breast cancer Son Kidney stones Social History Household Members: Other Household Members Other:: other Housing: House Do you presently have visiting nurse or other home services: Yes Alcohol intake: current Alcohol intake frequency: does not drink Patient Tobacco Use Status: Former Tobacco user Years Smoked: 30 +/- e-Cigarette/Vaping Use: Never Used Second Hand Smoke Exposure: No Advance Directives Date on File: 06/27/24 service: No Current occupational status: retired Current occupation: Right Handed Cognitive needs: Yes (cane) Hearing needs: No Vision needs: Yes (reading glasses) Review of Systems Const Details: - Musculoskeletal: Reports chronic low back pain and left hip pain - Neurological: Reports intermittent numbness and tingling in legs and feet - General: Denies groin pain All systems reviewed & are unremarkable except as noted in HPI and below Physical Exam Vital Signs: Last Vital Signs Pulse 77 12/28/24 14:59 Resp 18 12/28/24 14:59 BP 142/65 H 12/28/24 14:59 Pulse Ox 97 12/28/24 14:59 Oxygen Delivery Method Room Air 12/28/24 14:59 BMI result Body Mass Index 23.2 General: Appears afebrile. Alert and oriented. Mood and affect appropriate. Follows and participates in conversation appropriately. Respiratory effort is unlabored. No cough. Able to transition from sit to stand unassisted. Antalgic, limping gait, difficulty rising from seated position, and use of a cane for ambulation. General: Yes no CVA tenderness Back/Spine/Pelvis Other: Limited lumbar ROM due to pain. Lumbar extension reproduces mild pain and flexion and bending reproduce moderate pain. Mild midline TTP upper and lower back, no midline TTP in thoracic or cervical spine. Demonstrates 5/5 right, 4/5 left strength of quadriceps bilaterally as well as flexion/dorsiflexion of bilateral feet against resistance. 2+ pedal pulses bilaterally. Straight leg rise with dorsiflexion positive on the left. Diminished patellar and achilles reflexes bilaterally. Facet loading test positive bilaterally. Cindi sign, Pelvic compression and Stinchfield tests are positive, left>right. No groin pain with I/E hip rotations. Valsalva maneuver negative. Back: no CVA tenderness Cervical Spine: cervical ROM normal, loss of normal cervical lordosis and No Cervical spine tenderness Thoracic/Lumbar Spine: thoracic and lumbar spine normal to inspection, No Thoracic/lumbar spine scar(s), Lasegue's sign positive on the left and diffuse, pain with thoraco-lumbar ROM, paraspinal muscle tenderness, thoraco-lumbar ROM limited, Thoracic/lumbar scoliosis, No thoracic spinal tenderness and lumbar spinal tenderness (L3-S1) Sacroiliac joints: bilaterally tender to palpation Extrem General: Yes capillary refill normal, Yes no clubbing, cyanosis or edema and Yes no calf tenderness Results Reviewed Results Reviewed: XR HIP, LEFT 12/09/24 CLINICAL INFORMATION: M25.552 - Pain in left hip COMPARISON: August 04, 2024 TECHNIQUE: AP upright, AP supine, and frog-leg lateral views of the left hip. FINDINGS: Since prior examination, 2 cannulated screws have been placed across the left femoral head and neck, lateral approach fixing a subcapital fracture. There is no interval displacement or deformity. IMPRESSION: ORIF left intracapsular hip fracture. XR LUMBOSACRAL SPINE WITH OBLIQUES 12/09/24 CLINICAL INFORMATION: M25.552 - Pain in left hip COMPARISON: Correlated to CT abdomen and pelvis dated June 26, 2024. TECHNIQUE: AP oblique and lateral views FINDINGS: Multilevel syndesmophyte formation and marginal osteophyte formation throughout the axial skeleton. Dextroconvex curvature of the upper lumbar spine apex at L1 to and levoconvex curvature apex at L4-5. Multilevel vacuum phenomenon at L1 to, L2-3, L3-4 and L4-5 levels. Multilevel decreased intervertebral disc height subchondral cyst formation and sclerosis of the endplates. Grade 1 anterolisthesis L5-S1. No lytic or blastic lesions. Vascular calcifications, aorta and iliac arteries and mesenteric arteries. Metallic screws in the left femoral head neck no fully included in the [id number]. Sclerosis and the sacroiliac joints. IMPRESSION: Multilevel moderate to severe thoracolumbar spondylosis and grade 1 anterolisthesis L5-S1. Scoliosis. Atherosclerosis disease. Assessment & Plan Assessment & Plan (1) Arthritis of lumbar spine: Code(s): M47.816 - Spondylosis without myelopathy or radiculopathy, lumbar region Category: Medical (2) Lumbar degenerative disc disease: Code(s): M51.369 - Other intervertebral disc degeneration, lumbar region without mention of lumbar back pain or lower extremity pain Category: Medical (3) Lumbar scoliosis: Code(s): M41.9 - Scoliosis, unspecified Category: Medical (4) Lumbar radiculopathy: Code(s): M54.16 - Radiculopathy, lumbar region Category: Medical (5) Chronic back pain: Code(s): M54.9 - Dorsalgia, unspecified; G89.29 - Other chronic pain Category: Medical (6) Left hip pain: Code(s): M25.552 - Pain in left hip Category: Medical Plan The plan involves obtaining the MRI results to assess for neural integrity and compression that may be contributing to the patient's pain. Discussed interventional treatments for radicular and axial low back pain. Diagnostic injections may be used to determine eligibility for radiofrequency ablation, which could provide long-term pain relief if successful. Reviewed steroidal effects on bone quality with osteoporosis. Alternative pain management options, such as Sprint stimulation were also discussed today. All questions and concerns have been answered and patient agreed with the treatment plan. Follow up for MRI results and sooner as needed. Patient was informed and verbally consented to the use of an ambient scribe for clinic note documentation during this visit. Orders: Orders MR lumbar spine wo con Today M41.9 - Scoliosis, unspecified, M47.816 - Spondylosis without myelopathy or radiculopathy, lumbar region, M51.369 - Other intervertebral disc degeneration, lumbar region without mention of lumbar back pain or lower extremity pain, M54.16 - Radiculopathy, lumbar region Coding Level of Care Code New Pt Level 4 (15070) Diagnoses Arthritis of lumbar spine M47.816 Lumbar degenerative disc disease M51.369 Lumbar scoliosis M41.9 Lumbar radiculopathy M54.16 Chronic back pain M54.9; G89.29 Left hip pain M25.552
[2024-12-28 14:59] VITALS: BP 142/65; PULSE 77; RESP 18; O2SAT 97; BMI 23.2
--- OUTSIDE RECORDS SUMMARY | 2024-12-28 18:10 | XMS_ITS | Encounter Summary ---
Author Organization [facility] Address [address] [place] [address] Care Team Providers Care Log Buyer Name Role Phone John Avina DO Primary Care Provider [phone] Encounter Details Date Type Department Care Team (Late st Contact Info) Description 08/26/2024 Lab Requisition [facility] - Main Lab [address] [facility] [place] [address] Lincoln Crespo MD [address] [place] [address] Essential (primary) hypertension; Atherosclerotic heart disease of [place] coronary artery without angina pectoris; Anemia, unspecified; [...] Essential (primary) hypertension Atherosclerotic heart disease of [place] coronary artery without angina pectoris Anemia, unspecified Chronic kidney disease, unspecified BASIC METABOLIC PANEL Routine 08/27/2024 5:31 AM EDT Essential (primary) hypertension Atherosclerotic heart disease of [place] coronary artery without angina pectoris Anemia, unspecified Chronic kidney disease, unspecified documented in this encounter Results * (ABNORMAL) Basic metabolic panel (08/27/2024 5:31 AM EDT) Sodium 144 133 - 145 mmol/L LAB CHEMISTRY METHOD 08/27/2024 10:08 AM [facility] Potassium 4.1 3.5 - 5.5 mmol/L LAB CHEMISTRY METHOD 08/27/2024 10:08 AM [facility] Chloride 111(H) 96 - 110 mmol/L LAB CHEMISTRY METHOD 08/27/2024 10:08 AM [facility] CO2 26 21 - 32 mmol/L LAB CHEMISTRY METHOD 08/27/2024 10:08 AM [facility] Anion Gap 7 3 - 11 LAB CHEMISTRY METHOD 08/27/2024 10:08 AM [facility] Glucose 86 70 - 100 mg/dL LAB CHEMISTRY METHOD 08/27/2024 10:08 AM [facility] BUN 41(H) 5 - 25 mg/dL LAB CHEMISTRY METHOD 08/27/2024 10:08 AM [facility] Creatinine 1.64(H) 0.50 - 1.10 mg/dL LAB CHEMISTRY METHOD 08/27/2024 10:08 AM [facility] eGFR 32(L) >=60 mL/min/1. 73m2 LAB CHEMISTRY METHOD 08/27/2024 10:08 AM [facility] Comment:Calculation based on the Chronic Kidney Disease Epidemiology Collaboration (CKD-EPI) equation refit without adjustment for race. BUN/Creatinine Ratio 25.0 LAB CHEMISTRY METHOD 08/27/2024 10:08 AM [facility] Calcium 8.6 8.5 - 10.5 mg/dL LAB CHEMISTRY METHOD 08/27/2024 10:08 AM [facility] Blood Venous blood specimen / Unknown Venipuncture / Unknown 08/27/2024 5:31 AM EDT 08/27/2024 8:43 AM EDT us Lincoln Crespo MD LAB BLOOD ORDERABLES Final Resu lt [facility] [address] [place] [address], * (ABNORMAL) Complete blood count (08/27/2024 5:31 AM EDT) [facility] WBC 5.4 4.8 - 10.8 K/mcL LAB HEMETOLOGY [facility] RBC 2.70(L) 3.80 - 4.80 M/mcL LAB HEMETOLOGY METHOD 08/27/2024 9:02 AM [facility] Hemoglobin 9.0(L) 11.5 - 16.0 g/dL LAB HEMETOLOGY METHOD 08/27/2024 9:02 AM [facility] Hematocrit 27.9(L) 35.0 - 47.0 % LAB HEMETOLOGY METHOD 08/27/2024 9:02 AM [facility] MCV 104.1(H) 79.0 - 98.0 FL LAB HEMETOLOGY METHOD 08/27/2024 9:02 AM [facility] MCH 33.6(H) 27.0 - 32.0 pcg LAB HEMETOLOGY METHOD 08/27/2024 9:02 AM [facility] MCHC 32.3 32.0 - 37.0 g/dL LAB HEMETOLOGY METHOD 08/27/2024 9:02 AM [facility] RDW 19.1(H) 11.0 - 15.0 % LAB HEMETOLOGY METHOD 08/27/2024 9:02 AM [facility] Platelets 214 130 - 400 K/mcL LAB HEMETOLOGY METHOD 08/27/2024 9:02 AM [facility] MPV 9.3 7.0 - 11.0 FL LAB HEMETOLOGY METHOD 08/27/2024 9:02 AM [facility] NRBC 0.0 <1.0 % LAB HEMETOLOGY METHOD 08/27/2024 9:02 AM EDT [facility] NRBC Absolute 0.00 <0.10 K/mcL LAB HEMETOLOGY METHOD 08/27/2024 9:02 AM EDT [facility] Blood Venous blood specimen / Unknown Venipuncture / Unknown 08/27/2024 5:31 AM EDT 08/27/2024 8:51 AM EDT us Lincoln Crespo MD LAB BLOOD ORDERABLES Final Resu lt [facility] [address] [place] [address], documented in this encounter Visit Diagnoses Diagnosis Essential (primary) hypertension Unspecified essential hypertension Atherosclerotic heart disease of [place] coronary artery without angina pectoris Anemia, unspecified Chronic kidney disease, unspecified documented in this encounter Care Teams Log Buyer Relationship Specialty Start Date End Date John Avina DO [address] [place] [id number] PCP - General Internal Medicine 06/10/24 documented as of this encounter
--- OUTSIDE RECORDS SUMMARY | 2024-12-28 18:10 | XMS_ITS | Encounter Summary ---
Author Organization [facility] Address [address] [place] [address] Care Team Providers Care Road Traffic Controller Name Role Phone John Avina DO Primary Care Provider [phone] Encounter Details Date Type Department Care Team (Late st Contact Info) Description 08/14/2024 Lab Requisition [facility] - Main Lab [address] [facility] [place] [address] Lincoln Crespo MD [address] [place] [address] Essential (primary) hypertension; Atherosclerotic heart disease of [place] coronary artery without angina pectoris; Anemia, unspecified [...] Essential (primary) hypertension Atherosclerotic heart disease of [place] coronary artery without angina pectoris Anemia, unspecified COMPREHENSIVE METABOLIC PANEL Routine 08/17/2024 5:41 AM EDT Essential (primary) hypertension Atherosclerotic heart disease of [place] coronary artery without angina pectoris Anemia, unspecified documented in this encounter Results * (ABNORMAL) Comprehensive metabolic panel (08/17/2024 5:41 AM EDT) Sodium 141 133 - 145 mmol/L LAB CHEMISTRY METHOD 08/17/2024 1:27 PM EDT [facility] Potassium 3.8 3.5 - 5.5 mmol/L LAB CHEMISTRY METHOD 08/17/2024 1:27 PM [facility] Chloride 108 96 - 110 mmol/L LAB CHEMISTRY METHOD 08/17/2024 1:27 PM [facility] CO2 23 21 - 32 mmol/L LAB CHEMISTRY METHOD 08/17/2024 1:27 PM [facility] Anion Gap 10 3 - 11 LAB CHEMISTRY METHOD 08/17/2024 1:27 PM [facility] Glucose 69(L) 70 - 100 mg/dL LAB CHEMISTRY METHOD 08/17/2024 1:27 PM [facility] BUN 34(H) 5 - 25 mg/dL LAB CHEMISTRY METHOD 08/17/2024 1:27 PM [facility] Creatinine 1.53(H) 0.50 - 1.10 mg/dL LAB CHEMISTRY METHOD 08/17/2024 1:27 PM [facility] eGFR 35(L) >=60 mL/min/1. 73m2 LAB CHEMISTRY METHOD 08/17/2024 1:27 PM [facility] Comment:Calculation based on the Chronic Kidney Disease Epidemiology Collaboration (CKD-EPI) equation refit without adjustment for race. BUN/Creatinine Ratio 22.2 LAB CHEMISTRY METHOD 08/17/2024 1:27 PM [facility] Calcium 8.7 8.5 - 10.5 mg/dL LAB CHEMISTRY METHOD 08/17/2024 1:27 PM [facility] AST (SGOT) 9(L) 10 - 42 unit/L LAB CHEMISTRY METHOD 08/17/2024 1:27 PM [facility] ALT (SGPT) 8(L) 10 - 60 unit/L LAB CHEMISTRY METHOD 08/17/2024 1:27 PM [facility] Alkaline Phosphatase 67 42 - 121 unit/L LAB CHEMISTRY METHOD 08/17/2024 1:27 PM [facility] Total Protein 5.5(L) 6.0 - 8.0 g/dL LAB CHEMISTRY METHOD 08/17/2024 1:27 PM EDT [facility] Albumin 2.4(L) 3.2 - 5.0 g/dL LAB CHEMISTRY METHOD 08/17/2024 1:27 PM EDT [facility] Total Bilirubin 0.4 0.0 - 1.4 mg/dL LAB CHEMISTRY METHOD 08/17/2024 1:27 PM EDT [facility] Blood Venous blood specimen / Unknown Venipuncture / Unknown 08/17/2024 5:41 AM EDT 08/17/2024 10:15 AM EDT us Lincoln Crespo MD LAB BLOOD ORDERABLES Final Resu lt [facility] [address] [place] [address], * (ABNORMAL) Complete blood count (08/17/2024 5:41 AM EDT) WBC 7.2 4.8 - 10.8 K/mcL LAB HEMETOLOGY METHOD 08/17/2024 11:28 AM [facility] RBC 2.90(L) 3.80 - 4.80 M/mcL LAB HEMETOLOGY METHOD 08/17/2024 11:28 AM EDT [facility] Hemoglobin 9.6(L) 11.5 - 16.0 g/dL LAB HEMETOLOGY METHOD 08/17/2024 11:28 AM EDT [facility] Hematocrit 29.9(L) 35.0 - 47.0 % LAB HEMETOLOGY METHOD [facility] MCV 103.5(H) 79.0 - 98.0 FL LAB HEMETOLOGY METHOD 08/17/2024 11:28 AM EDT [facility] MCH 33.2(H) 27.0 - 32.0 pcg LAB HEMETOLOGY METHOD 08/17/2024 11:28 AM [facility] MCHC 32.1 32.0 - 37.0 g/dL LAB HEMETOLOGY METHOD 08/17/2024 11:28 AM [facility] RDW 18.2(H) 11.0 - 15.0 % LAB HEMETOLOGY METHOD 08/17/2024 11:28 AM [facility] Platelets 215 130 - 400 K/mcL LAB HEMETOLOGY METHOD 08/17/2024 11:28 AM [facility] MPV 9.2 7.0 - 11.0 FL LAB HEMETOLOGY METHOD 08/17/2024 11:28 AM [facility] NRBC 0.0 <1.0 % LAB HEMETOLOGY METHOD 08/17/2024 11:28 AM [facility] NRBC Absolute 0.00 <0.10 K/mcL LAB HEMETOLOGY METHOD 08/17/2024 11:28 AM [facility] Blood Venous blood specimen / Unknown Venipuncture / Unknown 08/17/2024 5:41 AM EDT 08/17/2024 10:15 AM EDT us Lincoln Crespo MD LAB BLOOD ORDERABLES Final Resu lt [facility] [address] [place] [address], documented in this encounter Visit Diagnoses Diagnosis Essential (primary) hypertension Unspecified essential hypertension Atherosclerotic heart disease of [place] coronary artery without angina pectoris Anemia, unspecified documented in this encounter Care Teams Road Traffic Controller Relationship Specialty Start Date End Date John Avina DO [address] [place] [phone] PCP - General Internal Medicine 06/10/24 documented as of this encounter
--- OUTSIDE RECORDS SUMMARY | 2024-12-28 18:10 | XMS_ITS | Encounter Summary ---
Author Organization [employer] Address [address] [place] [address] Care Team Providers Care Switch Box Installer Name Role Phone John Avina DO Primary Care Provider [phone] Encounter Details Date Type Department Care Team (Late st Contact Info) Description 08/30/2024 Lab Requisition [facility] - Main Lab 299 [facility] [place] [address] Lincoln Crespo MD [address] [place] [address] Essential (primary) hypertension; Atherosclerotic heart disease of [place] coronary artery without angina pectoris; Anemia, unspecified [...] hypertension Atherosclerotic heart disease of [place] coronary artery without angina pectoris Anemia, unspecified COMPREHENSIVE METABOLIC PANEL Routine 08/31/2024 5:18 AM EDT Essential (primary) hypertension Atherosclerotic heart disease of [place] coronary artery without angina pectoris Anemia, unspecified documented in this encounter Results * (ABNORMAL) Comprehensive metabolic panel (08/31/2024 5:18 AM EDT) Sodium 141 133 - 145 mmol/L LAB CHEMISTRY METHOD 08/31/2024 1:17 PM EDT [facility] Potassium 4.7 3.5 - 5.5 mmol/L LAB CHEMISTRY METHOD 08/31/2024 1:17 PM [facility] LAB Comment:Hemolysis present Chloride 110 96 - 110 mmol/L LAB CHEMISTRY METHOD 08/31/2024 1:17 PM [facility] CO2 15(L) 21 - 32 mmol/L LAB CHEMISTRY METHOD 08/31/2024 1:17 PM [facility] Anion Gap 16(H) 3 - 11 LAB CHEMISTRY METHOD 08/31/2024 1:17 PM [facility] Glucose 67(L) 70 - 100 mg/dL LAB CHEMISTRY METHOD 08/31/2024 1:17 PM [facility] BUN 49(H) 5 - 25 mg/dL LAB CHEMISTRY METHOD 08/31/2024 1:17 PM [facility] Creatinine 1.99(H) 0.50 - 1.10 mg/dL LAB CHEMISTRY METHOD 08/31/2024 1:17 PM [facility] LAB eGFR 25(L) >=60 mL/min/1. 73m2 LAB CHEMISTRY METHOD 08/31/2024 1:17 PM [facility] LAB Comment:Calculation based on the Chronic Kidney Disease Epidemiology Collaboration (CKD-EPI) equation refit without adjustment for race. BUN/Creatinine Ratio 24.6 LAB CHEMISTRY METHOD 08/31/2024 1:17 PM [facility] Calcium 9.1 8.5 - 10.5 mg/dL LAB CHEMISTRY METHOD 08/31/2024 1:17 PM [facility] AST (SGOT) 14 10 - 42 unit/L LAB CHEMISTRY METHOD 08/31/2024 1:17 PM [facility] ALT (SGPT) 18 10 - 60 unit/L LAB CHEMISTRY METHOD 08/31/2024 1:17 PM [facility] Alkaline Phosphatase 70 42 - 121 unit/L LAB CHEMISTRY METHOD 08/31/2024 1:17 PM EDT [facility] Total Protein 6.6 6.0 - 8.0 g/dL LAB CHEMISTRY METHOD 08/31/2024 1:17 PM EDT [facility] Albumin 3.1(L) 3.2 - 5.0 g/dL LAB CHEMISTRY METHOD 08/31/2024 1:17 PM EDT [facility] Total Bilirubin 0.4 0.0 - 1.4 mg/dL LAB CHEMISTRY METHOD 08/31/2024 1:17 PM EDT [facility] Blood Venous blood specimen / Unknown 08/31/2024 5:18 AM EDT 08/31/2024 11:[address] [facility] LAB - 08/31/2024 1:17 PM EDT Short sample, interpret results with caution us Lincoln Crespo MD LAB BLOOD ORDERABLES Final Resu lt [facility] [address] [place] [address], [place] [phone] * (ABNORMAL) Complete blood count (08/31/2024 5:18 AM EDT) WBC 5.2 4.8 - 10.8 K/mcL LAB HEMETOLOGY METHOD 08/31/2024 1:43 PM EDT [facility] RBC 2.50(L) 3.80 - 4.80 M/mcL LAB HEMETOLOGY METHOD 08/31/2024 1:43 PM EDT [facility] Hemoglobin 8.6(L) 11.5 - 16.0 g/dL LAB HEMETOLOGY METHOD 08/31/2024 1:43 PM EDT [facility] Hematocrit 27.1(L) 35.0 - 47.0 % LAB HEMETOLOGY METHOD 08/31/2024 1:43 PM EDT [facility] MCV 106.7(H) 79.0 - 98.0 FL LAB HEMETOLOGY METHOD 08/31/2024 1:43 PM EDT [facility] MCH 33.9(H) 27.0 - 32.0 pcg LAB HEMETOLOGY METHOD 08/31/2024 1:43 PM EDT [facility] LAB MCHC 31.7(L) 32.0 - 37.0 g/dL LAB HEMETOLOGY METHOD 08/31/2024 1:43 PM EDT [facility] RDW 19.2(H) 11.0 - 15.0 % LAB HEMETOLOGY METHOD 08/31/2024 1:43 PM EDT [facility] LAB Platelets 223 130 - 400 K/mcL LAB HEMETOLOGY METHOD 08/31/2024 1:43 PM EDT [facility] LAB MPV 9.6 7.0 - 11.0 FL LAB HEMETOLOGY METHOD 08/31/2024 1:43 PM EDT [facility] NRBC 0.0 <1.0 % LAB HEMETOLOGY METHOD 08/31/2024 1:43 PM EDT [facility] LAB NRBC Absolute 0.00 <0.10 K/mcL LAB HEMETOLOGY METHOD 08/31/2024 1:43 PM EDT [facility] LAB Blood Venous blood specimen / Unknown 08/31/2024 5:18 AM EDT 08/31/2024 11:31 AM EDT us Lincoln Crespo MD LAB BLOOD ORDERABLES Final Resu lt [facility] LAB [address] [place] [address], documented in this encounter Visit Diagnoses Diagnosis Essential (primary) hypertension Unspecified essential hypertension Atherosclerotic heart disease of [place] coronary artery without angina pectoris Anemia, unspecified documented in this encounter Care Teams Switch Box Installer Relationship Specialty Start Date End Date John Avina DO [address] [place] [phone] PCP - General Internal Medicine 06/10/24 documented as of this encounter
--- OUTSIDE RECORDS SUMMARY | 2024-12-28 18:10 | XMS_ITS | Encounter Summary ---
Author Organization [employer] Address [address] [place] [address] Care Team Providers Care Textile Machine Operator Name Role Phone John Avina DO Primary Care Provider Encounter Details Date Type Department Care Team (Late st Contact Info) Description 09/02/2024 Lab Requisition [facility] - Main Lab [address] [facility] [place] [place] [address] Lincoln Crespo MD [address] [place] [address] Essential (primary) hypertension; Atherosclerotic heart disease of [place] coronary artery without angina pectoris; Anemia, unspecified; [...] Essential (primary) hypertension Atherosclerotic heart disease of [place] coronary artery without angina pectoris Anemia, unspecified Chronic kidney disease, unspecified BASIC METABOLIC PANEL Routine 09/03/2024 7:35 AM EDT Essential (primary) hypertension Atherosclerotic heart disease of [place] coronary artery without angina pectoris Anemia, unspecified Chronic kidney disease, unspecified documented in this encounter Results * (ABNORMAL) Basic metabolic panel (09/03/2024 7:35 AM EDT) Sodium 142 133 - 145 mmol/L LAB CHEMISTRY METHOD 09/03/2024 9:20 AM [facility] LAB Potassium 4.0 3.5 - 5.5 mmol/L LAB CHEMISTRY METHOD 09/03/2024 9:20 AM [facility] LAB Chloride 112(H) 96 - 110 mmol/L LAB CHEMISTRY METHOD 09/03/2024 9:20 AM [facility] LAB CO2 22 21 - 32 mmol/L LAB CHEMISTRY METHOD 09/03/2024 9:20 AM [facility] LAB Anion Gap 8 3 - 11 LAB CHEMISTRY METHOD 09/03/2024 9:20 AM [facility] LAB Glucose 90 70 - 100 mg/dL LAB CHEMISTRY METHOD 09/03/2024 9:20 AM [facility] LAB BUN 48(H) 5 - 25 mg/dL LAB CHEMISTRY METHOD 09/03/2024 9:20 AM [facility] LAB Creatinine 1.72(H) 0.50 - 1.10 mg/dL LAB CHEMISTRY METHOD 09/03/2024 9:20 AM [facility] LAB eGFR 30(L) >=60 mL/min/1. 73m2 LAB CHEMISTRY METHOD 09/03/2024 9:20 AM [facility] LAB Comment:Calculation based on the Chronic Kidney Disease Epidemiology Collaboration (CKD-EPI) equation refit without adjustment for race. BUN/Creatinine Ratio 27.9 LAB CHEMISTRY METHOD 09/03/2024 9:20 AM [facility] LAB Calcium 9.3 8.5 - 10.5 mg/dL LAB CHEMISTRY METHOD 09/03/2024 9:20 AM [facility] LAB Blood Venous blood specimen / Unknown Venipuncture / Unknown 09/03/2024 7:35 AM EDT 09/03/2024 8:28 AM EDT us Lincoln Crespo MD LAB BLOOD ORDERABLES Final Resu lt [facility] LAB [address] [place] [address], * (ABNORMAL) Complete blood count (09/03/2024 7:35 AM EDT) [facility] Signature WBC 4.5(L) 4.8 - 10.8 K/mcL LAB HEMETOLOGY METHOD 09/03/2024 8:46 AM EDT [facility] LAB RBC 2.60(L) 3.80 - 4.80 M/mcL LAB HEMETOLOGY METHOD 09/03/2024 8:46 AM EDT [facility] LAB Hemoglobin 8.8(L) 11.5 - 16.0 g/dL LAB HEMETOLOGY METHOD 09/03/2024 8:46 AM [facility] LAB Hematocrit 27.0(L) 35.0 - 47.0 % LAB HEMETOLOGY METHOD 09/03/2024 8:[facility] MCV 105.1(H) 79.0 - 98.0 FL LAB HEMETOLOGY METHOD 09/03/2024 8:46 [facility] MCH 34.2(H) 27.0 - 32.0 pcg LAB HEMETOLOGY METHOD 09/03/2024 8:46 AM [facility] LAB MCHC 32.6 32.0 - 37.0 g/dL LAB HEMETOLOGY METHOD 09/03/2024 8:46 [facility] RDW 19.1(H) 11.0 - 15.0 % LAB HEMETOLOGY METHOD 09/03/2024 8:46 AM EDT [facility] LAB Platelets 200 130 - 400 K/mcL LAB HEMETOLOGY METHOD 09/03/2024 8:46 AM EDT [facility] LAB MPV 9.2 7.0 - 11.0 FL LAB HEMETOLOGY METHOD 09/03/2024 8:46 AM EDT [facility] NRBC 0.0 <1.0 % LAB HEMETOLOGY METHOD 09/03/2024 8:46 AM EDT [facility] LAB NRBC Absolute 0.00 <0.10 K/mcL LAB HEMETOLOGY METHOD 09/03/2024 8:46 AM EDT [facility] LAB Blood Venous blood specimen / Unknown Venipuncture / Unknown 09/03/2024 7:35 AM EDT 09/03/2024 8:28 AM EDT us Lincoln Crespo MD LAB BLOOD ORDERABLES Final Resu lt [facility] ([facility]) [facility] [address] [place] [address], documented in this encounter Visit Diagnoses Diagnosis Essential (primary) hypertension Unspecified essential hypertension Atherosclerotic heart disease of [place] coronary artery without angina pectoris Anemia, unspecified Chronic kidney disease, unspecified documented in this encounter Care Teams Textile Machine Operator Relationship Specialty Start Date End Date John Avina DO [address] [place] [phone] PCP - General Internal Medicine 06/10/24 documented as of this encounter
--- OUTSIDE RECORDS SUMMARY | 2024-12-28 18:10 | XMS_ITS | Encounter Summary ---
Author Organization [employer] Address [address] [place] [address] Care Team Providers Care Telegraph Service Rater Name Role Phone John Avina DO Primary Care Provider [phone] Encounter Details Date Type Department Care Team (Late st Contact Info) Description 08/22/[address] [facility] - Main Lab 299 [facility] [place] [address] Lincoln Crespo MD [address] [place] [address] Essential (primary) hypertension; Atherosclerotic heart disease of [place] coronary artery without angina pectoris; Anemia, unspecified [...] Essential (primary) hypertension Atherosclerotic heart disease of [place] coronary artery without angina pectoris Anemia, unspecified COMPREHENSIVE METABOLIC PANEL Routine 08/24/2024 5:46 AM EDT Essential (primary) hypertension Atherosclerotic heart disease of [place] coronary artery without angina pectoris Anemia, unspecified documented in this encounter Results * (ABNORMAL) Comprehensive metabolic panel (08/24/2024 5:46 AM EDT) Sodium 144 133 - 145 mmol/L LAB CHEMISTRY METHOD 08/24/2024 9:15 AM EDT [facility] ([facility] Potassium 4.0 3.5 - 5.5 mmol/L LAB CHEMISTRY METHOD 08/24/2024 9:15 AM [facility] LAB Chloride 112(H) 96 - 110 mmol/L LAB CHEMISTRY METHOD 08/24/2024 9:15 AM [facility] LAB CO2 23 21 - 32 mmol/L LAB CHEMISTRY METHOD 08/24/2024 9:15 AM [facility] LAB Anion Gap 9 3 - 11 LAB CHEMISTRY METHOD 08/24/2024 9:15 AM [facility] LAB Glucose 82 70 - 100 mg/dL LAB CHEMISTRY METHOD 08/24/2024 9:15 AM [facility] LAB BUN 32(H) 5 - 25 mg/dL LAB CHEMISTRY METHOD 08/24/2024 9:15 AM [facility] LAB Creatinine 1.88(H) 0.50 - 1.10 mg/dL LAB CHEMISTRY METHOD 08/24/2024 9:15 AM [facility] LAB eGFR 27(L) >=60 mL/min/1. 73m2 LAB CHEMISTRY METHOD 08/24/2024 9:15 AM [facility] LAB Comment:Calculation based on the Chronic Kidney Disease Epidemiology Collaboration (CKD-EPI) equation refit without adjustment for race. BUN/Creatinine Ratio 17.0 LAB CHEMISTRY METHOD 08/24/2024 9:15 AM [facility] LAB Calcium 8.8 8.5 - 10.5 mg/dL LAB CHEMISTRY METHOD 08/24/2024 9:15 AM [facility] LAB AST (SGOT) 13 10 - 42 unit/L LAB CHEMISTRY METHOD 08/24/2024 9:15 AM [facility] LAB ALT (SGPT) 17 10 - 60 unit/L LAB CHEMISTRY METHOD 08/24/2024 9:15 AM [facility] LAB Alkaline Phosphatase 69 42 - 121 unit/L LAB CHEMISTRY METHOD 08/24/2024 9:15 AM [facility] LAB Total Protein 5.7(L) 6.0 - 8.0 g/dL LAB CHEMISTRY METHOD 08/24/2024 9:15 AM EDT [facility] LAB Albumin 2.8(L) 3.2 - 5.0 g/dL LAB CHEMISTRY METHOD 08/24/2024 9:15 AM EDT [facility] LAB Total Bilirubin 0.3 0.0 - 1.4 mg/dL LAB CHEMISTRY METHOD 08/24/2024 9:15 AM EDT [facility] LAB Blood Venous blood specimen / Unknown Venipuncture / Unknown 08/24/2024 5:46 AM EDT 08/24/2024 8:26 AM EDT us Lincoln Crespo MD LAB BLOOD ORDERABLES Final Resu lt [facility] [address] [place] [address], [place] [phone] * (ABNORMAL) Complete blood count (08/24/2024 5:46 AM EDT) WBC 6.8 4.8 - 10.8 K/mcL LAB HEMETOLOGY METHOD 08/24/2024 8:45 AM [facility] LAB RBC 2.50(L) 3.80 - 4.80 M/mcL LAB HEMETOLOGY METHOD 08/24/2024 8:45 AM [facility] LAB Hemoglobin 8.6(L) 11.5 - 16.0 g/dL LAB HEMETOLOGY METHOD 08/24/2024 8:45 AM T [facility] LAB Hematocrit 26.2(L) 35.0 - 47.0 % LAB HEMETOLOGY METHOD 08/24/2024 8:45 AM [facility] LAB MCV 103.6(H) 79.0 - 98.0 FL LAB HEMETOLOGY METHOD 08/24/2024 8:45 AM EDT [facility] LAB MCH 34.0(H) 27.0 - 32.0 pcg LAB HEMETOLOGY METHOD 08/24/2024 8:45 AM EDT [facility] LAB MCHC 32.8 32.0 - 37.0 g/dL LAB HEMETOLOGY METHOD 08/24/2024 8:45 AM EDT [facility] LAB RDW 18.7(H) 11.0 - 15.0 % LAB HEMETOLOGY METHOD 08/24/2024 8:45 AM EDT [facility] LAB Platelets 192 130 - 400 K/mcL LAB HEMETOLOGY METHOD 08/24/2024 8:45 AM EDT [facility] LAB MPV 9.3 7.0 - 11.0 FL LAB HEMETOLOGY METHOD 08/24/2024 8:45 AM EDT [facility] LAB NRBC 0.0 <1.0 % LAB HEMETOLOGY METHOD 08/24/2024 8:45 AM EDT [facility] LAB NRBC Absolute 0.00 <0.10 K/mcL LAB HEMETOLOGY METHOD 08/24/2024 8:45 AM EDT [facility] LAB Blood Venous blood specimen / Unknown Venipuncture / Unknown 08/24/2024 5:46 AM EDT 08/24/2024 8:32 AM EDT us Lincoln Crespo MD LAB BLOOD ORDERABLES Final Resu lt [facility] [address] [place] [address], [place] [phone] documented in this encounter Visit Diagnoses Diagnosis Essential (primary) hypertension Unspecified essential hypertension Atherosclerotic heart disease of [place] coronary artery without angina pectoris Anemia, unspecified documented in this encounter Care Teams Telegraph Service Rater Relationship Specialty Start Date End Date John Avina DO [address] [place] [phone] PCP - General Internal Medicine 06/10/24 documented as of this encounter
--- OUTSIDE RECORDS SUMMARY | 2024-12-28 18:10 | XMS_ITS | Encounter Summary ---
Author Organization [facility] [facility] Address [address] [place] [phone] Care Team Providers Care Backfiller Name Role Phone John Avina DO Primary Care Provider Encounter Details Date Type Department Care Team (Late st Contact Info) Description 08/17/2024 Lab Requisition [facility] - Main Lab 299 [facility] [place] [address] Lincoln Crespo MD [address] [place] [address] Other ulcerative colitis with rectal [...] AM EDT) WBC 7.1 4.8 - 10.8 K/[facility] LAB HEMETOLOGY METHOD 08/18/2024 11:09 AM EDT [facility] ([facility] LAB RBC 2.80(L) 3.80 - 4.80 M/[facility] LAB HEMETOLOGY METHOD 08/18/2024 11:09 AM [facility] LAB Hemoglobin 9.2(L) 11.5 - 16.0 g/dL LAB HEMETOLOGY METHOD 08/18/2024 11:09 AM [facility] LAB Hematocrit 28.6(L) 35.0 - 47.0 % LAB HEMETOLOGY METHOD 08/18/2024 11:09 AM [facility] LAB MCV 103.6(H) 79.0 - 98.0 FL LAB HEMETOLOGY METHOD 08/18/2024 11:09 AM [facility] LAB MCH 33.3(H) 27.0 - 32.0 pcg LAB HEMETOLOGY METHOD 08/18/2024 11:09 AM [facility] LAB MCHC 32.2 32.0 - 37.0 g/dL LAB HEMETOLOGY METHOD 08/18/2024 11:09 AM [facility] LAB RDW 18.5(H) 11.0 - 15.0 % LAB HEMETOLOGY METHOD 08/18/2024 11:09 AM [facility] LAB Platelets 216 130 - 400 K/mcL LAB HEMETOLOGY METHOD 08/18/2024 11:09 AM [facility] LAB MPV 9.2 7.0 - 11.0 FL LAB HEMETOLOGY METHOD 08/18/2024 11:09 AM [facility] LAB NRBC 0.0 <1.0 % LAB HEMETOLOGY METHOD 08/18/2024 11:09 AM [facility] LAB NRBC Absolute 0.00 <0.10 K/mcL LAB HEMETOLOGY METHOD 08/18/2024 11:09 AM [facility] LAB Blood Venous blood specimen / Unknown Venipuncture / Unknown 08/18/2024 4:57 AM EDT 08/18/2024 10:57 AM EDT Lincoln Crespo MD LAB BLOOD ORDERABLES Final Resu [facility] LAB [address] [place] [address], documented in this encounter Visit Diagnoses Diagnosis Other ulcerative colitis with rectal bleeding (CMS/HCC V24, CMS/HCC V28) Anemia in chronic kidney disease (CODE) documented in this encounter Care Teams Backfiller Relationship Specialty Start Date End Date John Avina DO [address] [place] [phone] PCP - General Internal Medicine 06/10/24 documented as of this encounter
--- OUTSIDE RECORDS SUMMARY | 2024-12-28 18:10 | XMS_ITS | Encounter Summary ---
Author Organization [employer] Address [address] [place] [address] Care Team Providers Care Financial Sales Associate Name Role Phone John Avina DO Primary Care Provider [phone] Encounter Details Date Type Department Care Team (Late st Contact Info) Description 09/16/2024 Lab Requisition [facility] - Main Lab 299 [facility] [place] [address] Lincoln Crespo MD [address] [place] [address] Essential (primary) hypertension; Atherosclerotic heart disease of [place] coronary artery without angina pectoris; Anemia, unspecified; [...] Essential (primary) hypertension Atherosclerotic heart disease of [place] coronary artery without angina pectoris Anemia, unspecified Chronic kidney disease, unspecified BASIC METABOLIC PANEL Routine 09/17/2024 8:40 AM EDT Essential (primary) hypertension Atherosclerotic heart disease of [place] coronary artery without angina pectoris Anemia, unspecified Chronic kidney disease, unspecified documented in this encounter Results * (ABNORMAL) Basic metabolic panel (09/17/2024 8:40 AM EDT) Sodium 141 133 - 145 mmol/L LAB CHEMISTRY METHOD 09/17/2024 11:[address] [facility] LAB Potassium 4.0 3.5 - 5.5 mmol/L LAB CHEMISTRY METHOD 09/17/2024 11:[address] [facility] Chloride 109 96 - 110 mmol/L LAB CHEMISTRY METHOD 09/17/2024 11:[address] [facility] CO2 24 21 - 32 mmol/L LAB CHEMISTRY METHOD 09/17/2024 11:[address] [facility] Anion Gap 8 3 - 11 LAB CHEMISTRY METHOD 09/17/2024 11:[address] [facility] Glucose 103(H) 70 - 100 mg/dL LAB CHEMISTRY METHOD 09/17/2024 11:[address] [facility] BUN 49(H) 5 - 25 mg/dL LAB CHEMISTRY METHOD 09/17/2024 11:[address] [facility] Creatinine 1.74(H) 0.50 - 1.10 mg/dL LAB CHEMISTRY METHOD 09/17/2024 11:[address] [facility] LAB eGFR 30(L) >=60 mL/min/1. 73m2 LAB CHEMISTRY METHOD 09/17/2024 11:[address] [facility] LAB Comment:Calculation based on the Chronic Kidney Disease Epidemiology Collaboration (CKD-EPI) equation refit without adjustment for race. BUN/Creatinine Ratio 28.2 LAB CHEMISTRY METHOD 09/17/2024 11:[address] [facility] Calcium 9.3 8.5 - 10.5 mg/dL LAB CHEMISTRY METHOD 09/17/2024 11:[address] [facility] LAB Blood Venous blood specimen / Unknown Venipuncture / Unknown 09/17/2024 8:40 AM EDT 09/17/2024 10:05 AM EDT us Lincoln Crespo MD LAB BLOOD ORDERABLES Final Resu lt [facility] [address] [place] [address], * (ABNORMAL) Complete blood count (09/17/2024 8:40 AM EDT) [facility] WBC 6.5 4.8 - 10.8 K/mcL LAB HEMETOLOGY METHOD 09/17/2024 10:30 AM EDT [facility] LAB RBC 2.70(L) 3.80 - 4.80 M/mcL LAB HEMETOLOGY METHOD 09/17/2024 10:30 AM EDT [facility] LAB Hemoglobin 9.4(L) 11.5 - 16.0 g/dL LAB HEMETOLOGY METHOD 09/17/2024 10:[address] [facility] Hematocrit 28.1(L) 35.0 - 47.0 % LAB HEMETOLOGY METHOD 09/17/2024 10:[address] [facility] MCV 106.0(H) 79.0 - 98.0 FL LAB HEMETOLOGY METHOD [facility]24 [facility] MCH 35.5(H) 27.0 - 32.0 pcg LAB HEMETOLOGY METHOD 09/17/2024 10:[address] [facility] MCHC 33.5 32.0 - 37.0 g/dL LAB HEMETOLOGY METHOD 09/17[facility]24 [facility] RDW 18.7(H) 11.0 - 15.0 % LAB HEMETOLOGY METHOD 09/17[facility]2024 [facility] Platelets 183 130 - 400 K/mcL LAB HEMETOLOGY METHOD 09/17/2024 10:[address] [facility] MPV 9.4 7.0 - 11.0 FL LAB HEMETOLOGY METHOD 09/17/2024 10:30 AM EDT [facility] NRBC 0.0 <1.0 % LAB HEMETOLOGY METHOD 09/17/2024 10:30 AM EDT [facility] NRBC Absolute 0.00 <0.10 K/mcL LAB HEMETOLOGY METHOD 09/17/2024 10:30 AM EDT [facility] Blood Venous blood specimen / Unknown Venipuncture / Unknown 09/17/2024 8:40 AM EDT 09/17/2024 10:05 AM EDT us Lincoln Crespo MD LAB BLOOD ORDERABLES Final Resu lt [facility] [address] [place] [address], documented in this encounter Visit Diagnoses Diagnosis Essential (primary) hypertension Unspecified essential hypertension Atherosclerotic heart disease of [place] coronary artery without angina pectoris Anemia, unspecified Chronic kidney disease, unspecified documented in this encounter Care Teams Financial Sales Associate Relationship Specialty Start Date End Date John Avina DO [address] [place] [phone] PCP - General Internal Medicine 06/10/24 documented as of this encounter
--- OUTSIDE RECORDS SUMMARY | 2024-12-28 18:10 | XMS_ITS | Clinical Summary ---
Author Organization [address] Address [address] [place] [address] Phone Care Team Providers Care Bullard Machine Operator Name Role Phone FabriceJohn solares Primary Care Provider [phone] Social History Tobacco Use Types Packs/Day Years [...] Essential (primary) hypertension Atherosclerotic heart disease of [place] coronary artery without angina pectoris Anemia, unspecified Chronic kidney disease, unspecified from Last 3 Months or Most Recently Relevant to Health Maintenance Results * (ABNORMAL) Basic metabolic panel (09/17/2024 8:40 AM EDT) Sodium 141 133 - 145 mmol/L LAB CHEMISTRY METHOD 09/17/2024 11:11 AM [facility] Potassium 4.0 3.5 - 5.5 mmol/L LAB CHEMISTRY METHOD 09/17/2024 11:11 AM [facility] Chloride 109 96 - 110 mmol/L LAB CHEMISTRY METHOD 09/17/2024 11:11 AM [facility] CO2 24 21 - 32 mmol/L LAB CHEMISTRY METHOD 09/17/2024 11:11 AM [facility] Anion Gap 8 3 - 11 LAB CHEMISTRY METHOD 09/17/2024 11:11 AM [facility] Glucose 103(H) 70 - 100 mg/dL LAB CHEMISTRY METHOD 09/17/2024 11:11 AM EDT [facility] BUN 49(H) 5 - 25 mg/dL LAB CHEMISTRY METHOD 09/17/2024 11:11 AM EDT [facility] Creatinine 1.74(H) 0.50 - 1.10 mg/dL LAB CHEMISTRY METHOD 09/17/2024 11:11 AM EDT [facility] eGFR 30(L) >=60 mL/min/1. 73m2 LAB CHEMISTRY METHOD 09/17/2024 11:11 AM EDT [facility] Comment:Calculation based on the Chronic Kidney Disease Epidemiology Collaboration (CKD-EPI) equation refit without adjustment for race. BUN/Creatinine Ratio 28.2 LAB CHEMISTRY METHOD 09/17/2024 11:11 AM EDT [facility] Calcium 9.3 8.5 - 10.5 mg/dL LAB CHEMISTRY METHOD 09/17/2024 11:11 AM EDT [facility] Blood Venous blood specimen / Unknown Venipuncture / Unknown 09/17/2024 8:40 AM EDT 09/17/2024 10:05 AM EDT Lincoln Crespo MD LAB BLOOD ORDERABLES Final Resu lt [facility] [address] [place] [address], from Last 3 Months or Most Recently Relevant to Health Maintenance Insurance MEDICARE [facility] MEDICARE Care Teams Bullard Machine Operator Relationship Specialty Start Date End Date John Avina DO [address] [place] [phone] PCP - General Internal Medicine 06/10/24
--- OUTSIDE RECORDS SUMMARY | 2024-12-28 18:10 | XMS_ITS | Encounter Summary ---
Author Organization [employer] Address [address] [place] [phone] Care Team Providers Care Natural Resources Engineer Name Role Phone John Avina DO Primary Care Provider [phone] Encounter Details Date Type Department Care Team (Late st Contact Info) Description 08/19/2024 Lab Requisition [facility] - Main Lab [address] [facility] [place] [address] Lincoln Crespo MD [address] [place] [address] Essential (primary) hypertension; Atherosclerotic heart disease of [place] coronary artery without angina pectoris; Anemia, unspecified; [...] Essential (primary) hypertension Atherosclerotic heart disease of [place] coronary artery without angina pectoris Anemia, unspecified Chronic kidney disease, unspecified BASIC METABOLIC PANEL Routine 08/20/2024 6:56 AM EDT Essential (primary) hypertension Atherosclerotic heart disease of [place] coronary artery without angina pectoris Anemia, unspecified Chronic kidney disease, unspecified documented in this encounter Results * (ABNORMAL) Basic metabolic panel (08/20/2024 6:56 AM EDT) Sodium 140 133 - 145 mmol/L LAB CHEMISTRY METHOD 08/20/2024 10:17 AM [facility] Potassium 4.1 3.5 - 5.5 mmol/L LAB CHEMISTRY METHOD 08/20/2024 10:17 AM [facility] Chloride 107 96 - 110 mmol/L LAB CHEMISTRY METHOD 08/20/2024 10:17 AM [facility] CO2 25 21 - 32 mmol/L LAB CHEMISTRY METHOD 08/20/2024 10:17 AM [facility] Anion Gap 8 3 - 11 LAB CHEMISTRY METHOD 08/20/2024 10:17 AM [facility] Glucose 100 70 - 100 mg/dL LAB CHEMISTRY METHOD 08/20/2024 10:17 AM [facility] BUN 31(H) 5 - 25 mg/dL LAB CHEMISTRY METHOD 08/20/2024 10:17 AM [facility] Creatinine 1.63(H) 0.50 - 1.10 mg/dL LAB CHEMISTRY METHOD 08/20/2024 10:17 AM [facility] eGFR 32(L) >=60 mL/min/1. 73m2 LAB CHEMISTRY METHOD 08/20/2024 10:17 AM [facility] Comment:Calculation based on the Chronic Kidney Disease Epidemiology Collaboration (CKD-EPI) equation refit without adjustment for race. BUN/Creatinine Ratio 19.0 LAB CHEMISTRY METHOD 08/20/2024 10:17 AM [facility] Calcium 9.2 8.5 - 10.5 mg/dL LAB CHEMISTRY METHOD 08/20/2024 10:17 AM [facility] Blood Venous blood specimen / Unknown Venipuncture / Unknown 08/20/2024 6:56 AM EDT 08/20/2024 9:28 AM EDT us Lincoln Crespo MD LAB BLOOD ORDERABLES Final Resu lt [facility] [address] [place] [address], * (ABNORMAL) Complete blood count (08/20/2024 6:56 AM EDT) [facility] WBC 8.6 4.8 - 10.8 K/mcL LAB HEMETOLOGY METHOD 08/20/2024 9:58 AM [facility] RBC 3.30(L) 3.80 - 4.80 M/mcL LAB HEMETOLOGY METHOD 08/[facility]24 [facility] Hemoglobin 10.9(L) 11.5 - 16.0 g/dL LAB HEMETOLOGY METHOD 08/20/2024 9:58 AM [facility] Hematocrit 34.1(L) 35.0 - 47.0 % LAB HEMETOLOGY METHOD 08/20/2024 9:58 AM [facility] MCV 102.1(H) 79.0 - 98.0 FL LAB HEMETOLOGY METHOD 08/20/2024 9:58 AM [facility] MCH 32.6(H) 27.0 - 32.0 pcg LAB HEMETOLOGY METHOD 08/20/2024 9:58 AM [facility] MCHC 32.0 32.0 - 37.0 g/dL LAB HEMETOLOGY METHOD 08/20/2024 9:58 AM [facility] RDW 18.5(H) 11.0 - 15.0 % LAB HEMETOLOGY METHOD 08/20/2024 9:58 AM [facility] Platelets 264 130 - 400 K/mcL LAB HEMETOLOGY METHOD 08/20/2024 9:58 AM [facility] MPV 9.0 7.0 - 11.0 FL LAB HEMETOLOGY METHOD 08/20/2024 9:58 AM [facility] NRBC 0.0 <1.0 % LAB HEMETOLOGY METHOD 08/20/2024 9:58 AM EDT [facility] NRBC Absolute 0.00 <0.10 K/mcL LAB HEMETOLOGY METHOD 08/20/2024 9:58 AM EDT [facility] Blood Venous blood specimen / Unknown Venipuncture / Unknown 08/20/2024 6:56 AM EDT 08/20/2024 9:29 AM EDT us Lincoln Crespo MD LAB BLOOD ORDERABLES Final Resu lt [facility] [address] [place] [address], documented in this encounter Visit Diagnoses Diagnosis Essential (primary) hypertension Unspecified essential hypertension Atherosclerotic heart disease of [place] coronary artery without angina pectoris Anemia, unspecified Chronic kidney disease, unspecified documented in this encounter Care Teams Natural Resources Engineer Relationship Specialty Start Date End Date John Avina DO [address] [place] [phone] PCP - General Internal Medicine 06/10/24 documented as of this encounter
--- OUTSIDE RECORDS SUMMARY | 2024-12-28 18:10 | XMS_ITS | Encounter Summary ---
Author Organization [facility] Address [address] [place] [address] Care Team Providers Care Recruiting Assistant Name Role Phone John Avina DO Primary Care Provider [phone] Encounter Details Date Type Department Care Team (Late st Contact Info) Description 06/10/2024 Lab Requisition [facility] - Main Lab 299 [facility] [place] [address] Arianna Iraheta PA [address] [place], [place] [id number] Dysuria Social History Tobacco Use Types Packs/Day [...] ssp pneumoniae(A) RIC 06/12/2024 11:01 AM EST [facility] Comment: This is an [...] MICROBIOLOGY - GENERAL ORD ERABLES Final Result [facility] [address] [place] [address], documented in this encounter Visit Diagnoses Diagnosis Dysuria documented in this encounter Care Teams Recruiting Assistant Relationship Specialty Start Date End Date John Avina DO [address] [place] [phone] PCP - General Internal Medicine 06/10/24 documented as of this encounter
--- OUTSIDE RECORDS SUMMARY | 2024-12-28 18:11 | XMS_ITS | Clinical Summary ---
Author Organization [facility] Address [address] [place] [address] Phone Care Team Providers Care Primary Care Pediatrician Name Role Phone FabriceJohn solares Primary Care [...] Visit [facility] [address] [place] [address] Mejia Soler [...] Visit [facility] [address] [place] [address] Mejia Soler MD [address] [facility] [address] [place] [address] Health Maintenance Due Date Last [...] [facility] Care Teams Primary Care Pediatrician Relationship Specialty Start Date End Date John Avina DO [address] [place] [address] PCP - General Internal Medicine 10/23/23
--- OUTSIDE RECORDS SUMMARY | 2024-12-28 18:11 | XMS_ITS | Encounter Summary ---
Author Organization [facility] Address [address] [place] [address] Care Team Providers Care Motorcycle Assembler Name Role Phone John Avina DO Primary Care Provider [phone] Encounter Details Date Type Department Care Team (Late st Contact Info) Description 08/15/2024 Lab Requisition [facility] - Main Lab 299 [facility] [place] [address] Lincoln Crespo MD [address] [place] [address] Other ulcerative colitis with rectal [...] AM EDT) WBC 6.7 4.8 - 10.8 K/[facility] LAB HEMETOLOGY METHOD 08/15/2024 11:29 AM EDT [facility] RBC 3.10(L) 3.80 - 4.80 M/[facility] LAB HEMETOLOGY METHOD 08/15/2024 11:29 AM [facility] Hemoglobin 10.4(L) 11.5 - 16.0 g/dL LAB HEMETOLOGY METHOD 08/15/2024 11:29 AM [facility] Hematocrit 31.4(L) 35.0 - 47.0 % LAB HEMETOLOGY METHOD 08/15/2024 11:29 AM [facility] MCV 100.6(H) 79.0 - 98.0 FL LAB HEMETOLOGY METHOD 08/15/2024 11:29 AM [facility] MCH 33.3(H) 27.0 - 32.0 pcg LAB HEMETOLOGY METHOD 08/15/2024 11:29 AM [facility] MCHC 33.1 32.0 - 37.0 g/dL LAB HEMETOLOGY METHOD 08/15/2024 11:29 AM [facility] RDW 18.6(H) 11.0 - 15.0 % LAB HEMETOLOGY METHOD 08/15/2024 11:29 AM [facility] Platelets 228 130 - 400 K/mcL LAB HEMETOLOGY METHOD 08/15/2024 11:29 AM [facility] MPV 9.4 7.0 - 11.0 FL LAB HEMETOLOGY METHOD 08/15/2024 11:29 AM [facility] NRBC 0.0 <1.0 % LAB HEMETOLOGY METHOD 08/15/2024 11:29 AM [facility] NRBC Absolute 0.00 <0.10 K/mcL LAB HEMETOLOGY METHOD 08/15/2024 11:29 AM [facility] Blood Venous blood specimen / Unknown Venipuncture / Unknown 08/15/2024 9:21 AM EDT 08/15/2024 10:30 AM EDT Lincoln Crespo MD LAB BLOOD ORDERABLES [facility] [address] [place] [address], documented in this encounter Visit Diagnoses Diagnosis Other ulcerative colitis with rectal bleeding (CMS/HCC V24, CMS/HCC V28) Anemia in chronic kidney disease (CODE) documented in this encounter Care Teams Motorcycle Assembler Relationship Specialty Start Date End Date John Avina DO [address] [place] [phone] PCP - General Internal Medicine 06/10/24 documented as of this encounter
--- OUTSIDE RECORDS SUMMARY | 2024-12-28 18:11 | XMS_ITS | Encounter Summary ---
Author Organization [employer] Address [address] [place] [phone] Care Team Providers Care Inspector And Mender Name Role Phone John Avina DO Primary Care Provider [phone] Encounter Details Date Type Department Care Team (Late st Contact Info) Description 08/12/2024 Lab Requisition [facility] - Main Lab [address] [facility] [place] [address] Lincoln Crespo MD [address] [place] [address] Essential (primary) hypertension; Atherosclerotic heart disease of [place] coronary artery without angina pectoris; Anemia, unspecified; [...] Essential (primary) hypertension Atherosclerotic heart disease of [place] coronary artery without angina pectoris Anemia, unspecified Chronic kidney disease, unspecified Hypothyroidism, unspecified Hyperlipidemia, unspecified COMPREHENSIVE METABOLIC PANEL Routine 08/12/2024 4:49 AM EDT Essential (primary) hypertension Atherosclerotic heart disease of [place] coronary artery without angina pectoris Anemia, unspecified Chronic kidney disease, unspecified Hypothyroidism, unspecified Hyperlipidemia, unspecified documented in this encounter Results * (ABNORMAL) Comprehensive metabolic panel (08/12/2024 4:49 AM EDT) Sodium 140 133 - 145 mmol/L LAB CHEMISTRY METHOD 08/12/2024 11:[address] [facility] Potassium 4.4 3.5 - 5.5 mmol/L LAB CHEMISTRY METHOD 08/12/2024 11:[address] [facility] Chloride 104 96 - 110 mmol/L LAB CHEMISTRY METHOD 08/12/2024 11:[address] [facility] CO2 30 21 - 32 mmol/L LAB CHEMISTRY METHOD 08/12/2024 11:[address] [facility] Anion Gap 6 3 - 11 LAB CHEMISTRY METHOD 08/12/2024 11:[address] [facility] Glucose 81 70 - 100 mg/dL LAB CHEMISTRY METHOD 08/12/2024 11:[address] [facility] BUN 35(H) 5 - 25 mg/dL LAB CHEMISTRY METHOD 08/12/2024 11:[address] [facility] Creatinine 1.81(H) 0.50 - 1.10 mg/dL LAB CHEMISTRY METHOD 08/12/2024 11:[address] [facility] eGFR 29(L) >=60 mL/min/1. 73m2 LAB CHEMISTRY METHOD 08/12/2024 11:[address] [facility] Comment:Calculation based on the Chronic Kidney Disease Epidemiology Collaboration (CKD-EPI) equation refit without adjustment for race. BUN/Creatinine Ratio 19.3 LAB CHEMISTRY METHOD 08/12/2024 11:[address] [facility] Calcium 8.3(L) 8.5 - 10.5 mg/dL LAB CHEMISTRY METHOD 08/12/2024 11:[address] [facility] AST (SGOT) 7(L) 10 - 42 unit/L LAB CHEMISTRY METHOD 08/12/2024 11:[address] [facility] ALT (SGPT) 7(L) 10 - 60 unit/L LAB CHEMISTRY METHOD 08/12/2024 11:43 AM EDT [facility] Alkaline Phosphatase 65 42 - 121 unit/L LAB CHEMISTRY METHOD 08/12/2024 11:43 AM T [facility] Total Protein 5.5(L) 6.0 - 8.0 g/dL LAB CHEMISTRY METHOD 08/12/2024 11:[address] [facility] Albumin 2.3(L) 3.2 - 5.0 g/dL LAB CHEMISTRY METHOD 08/12/2024 11:43 AM T [facility] Total Bilirubin 0.5 0.0 - 1.4 mg/dL LAB CHEMISTRY METHOD 08/12/2024 11:[address] [facility] Blood Venous blood specimen / Unknown Venipuncture / Unknown 08/12/2024 4:49 AM EDT 08/12/2024 10:25 AM EDT Lincoln Crespo MD LAB BLOOD ORDERABLES Final Resu lt [facility] [address] [place] [address], * (ABNORMAL) Complete blood count (08/12/2024 4:49 AM EDT) WBC 6.8 4.8 - 10.8 K/mcL LAB HEMETOLOGY METHOD 08/12/2024 11:[address] [facility] RBC 2.20(L) 3.80 - 4.80 M/mcL LAB HEMETOLOGY METHOD 08/12/2024 11:[address] [facility] Hemoglobin 7.4(L) 11.5 - 16.0 g/dL LAB HEMETOLOGY METHOD 08/12/2024 11:[address] [facility] Hematocrit 23.3(L) 35.0 - 47.0 % LAB HEMETOLOGY METHOD 08/12/2024 11:01 AM EDT [facility] MCV 108.4(H) 79.0 - 98.0 FL LAB HEMETOLOGY METHOD 08/12/2024 11:01 AM EDT [facility] MCH 34.4(H) 27.0 - 32.0 pcg LAB HEMETOLOGY METHOD [facility]24 [facility] MCHC 31.8(L) 32.0 - 37.0 g/dL LAB HEMETOLOGY METHOD 08/12/2024 11:01 AM EDT [facility] RDW 17.7(H) 11.0 - 15.0 % LAB HEMETOLOGY METHOD 08/12/2024 [facility] Platelets 203 130 - 400 K/mcL LAB HEMETOLOGY METHOD 08/12/2024 11[facility] MPV 9.8 7.0 - 11.0 FL LAB HEMETOLOGY METHOD 08/12/2024 11[facility] NRBC 0.0 <1.0 % LAB HEMETOLOGY METHOD 08/12/2024 11[facility] NRBC Absolute 0.00 <0.10 K/mcL LAB HEMETOLOGY METHOD 08/12/2024 11:[address] [facility] Blood Venous blood specimen / Unknown Venipuncture / Unknown 08/12/2024 4:49 AM EDT 08/12/2024 10:25 AM EDT us Lincoln Crespo MD LAB BLOOD ORDERABLES Final Resu lt [facility] [address] [place] [address], [place] [phone] documented in this encounter Visit Diagnoses Diagnosis Essential (primary) hypertension Unspecified essential hypertension Atherosclerotic heart disease of [place] coronary artery without angina pectoris Anemia, unspecified Chronic kidney disease, unspecified Hypothyroidism, unspecified Hyperlipidemia, unspecified documented in this encounter Care Teams Inspector And Mender Relationship Specialty Start Date End Date John Avina DO [address] [place] [phone] PCP - General Internal Medicine 06/10/24 documented as of this encounter
--- OUTSIDE RECORDS SUMMARY | 2024-12-28 18:11 | XMS_ITS | Encounter Summary ---
Author Organization [facility] Address [address] [place] [phone] Care Team Providers Care Log Sorting Supervisor Name Role Phone John Avina DO Primary Care Provider [phone] Encounter Details Date Type Department Care Team (Late st Contact Info) Description 08/16/2024 Lab Requisition [facility] - Main Lab [address] [facility] [place] [address] Lincoln Crespo MD [address] [place] [address] Other ulcerative colitis with rectal [...] AM EDT) WBC 7.2 4.8 - 10.8 K/[facility] LAB HEMETOLOGY METHOD 08/16/2024 10:41 AM EDT [facility] RBC 2.90(L) 3.80 - 4.80 M/[facility] LAB HEMETOLOGY METHOD 08/16/2024 10:41 AM [facility] Hemoglobin 9.7(L) 11.5 - 16.0 g/dL LAB HEMETOLOGY METHOD 08/16/2024 10:41 AM [facility] Hematocrit 29.9(L) 35.0 - 47.0 % LAB HEMETOLOGY METHOD 08/16/2024 10:41 AM [facility] MCV 101.7(H) 79.0 - 98.0 FL LAB HEMETOLOGY METHOD 08/16/2024 10:41 AM [facility] MCH 33.0(H) 27.0 - 32.0 pcg LAB HEMETOLOGY METHOD 08/16/2024 10:41 AM [facility] MCHC 32.4 32.0 - 37.0 g/dL LAB HEMETOLOGY METHOD 08/16/2024 10:41 AM [facility] RDW 18.1(H) 11.0 - 15.0 % LAB HEMETOLOGY METHOD 08/16/2024 10:41 AM [facility] Platelets 246 130 - 400 K/mcL LAB HEMETOLOGY METHOD 08/16/2024 10:41 AM [facility] MPV 9.2 7.0 - 11.0 FL LAB HEMETOLOGY METHOD 08/16/2024 10:41 AM [facility] NRBC 0.0 <1.0 % LAB HEMETOLOGY METHOD 08/16/2024 10:41 AM [facility] NRBC Absolute 0.00 <0.10 K/mcL LAB HEMETOLOGY METHOD 08/16/2024 10:41 AM [facility] Blood Venous blood specimen / Unknown Venipuncture / Unknown 08/16/2024 8:48 AM EDT 08/16/2024 10:02 AM EDT Lincoln Crespo MD LAB BLOOD ORDERABLES [facility] LAB [address] [place] [address], documented in this encounter Visit Diagnoses Diagnosis Other ulcerative colitis with rectal bleeding (CMS/HCC V24, CMS/HCC V28) Anemia in chronic kidney disease (CODE) documented in this encounter Care Teams Log Sorting Supervisor Relationship Specialty Start Date End Date John Avina DO [address] [place] [phone] PCP - General Internal Medicine 06/10/24 documented as of this encounter
--- OUTSIDE RECORDS SUMMARY | 2024-12-28 18:11 | XMS_ITS | Encounter Summary ---
Author Organization [employer] Address [address] [place] [address] Care Team Providers Care Formula Room Worker Name Role Phone John Avina DO Primary Care Provider [phone] Encounter Details Date Type Department Care Team (Late st Contact Info) Description 09/14/[address] [facility] - Main Lab [address] [facility] [place] [address] Lincoln Crespo MD [address] [place] [address] Essential (primary) hypertension; Atherosclerotic heart disease of [place] coronary artery without angina pectoris; Anemia, unspecified [...] Essential (primary) hypertension Atherosclerotic heart disease of [place] coronary artery without angina pectoris Anemia, unspecified COMPREHENSIVE METABOLIC PANEL Routine 09/15/2024 7:05 AM EDT Essential (primary) hypertension Atherosclerotic heart disease of [place] coronary artery without angina pectoris Anemia, unspecified documented in this encounter Results * (ABNORMAL) Complete blood count (09/15/2024 7:07 AM EDT) WBC 5.1 4.8 - 10.8 K/mcL LAB HEMETOLOGY METHOD 09/15/2024 12:07 PM EDT [facility] ([facility]) [facility] LAB RBC 2.30(L) 3.80 - 4.80 M/mcL LAB HEMETOLOGY METHOD 09/15/2024 12:07 PM [facility] LAB Hemoglobin 8.0(L) 11.5 - 16.0 g/dL LAB HEMETOLOGY METHOD 09/15/2024 12:07 PM [facility] LAB Hematocrit 24.4(L) 35.0 - 47.0 % LAB HEMETOLOGY METHOD 09/15/2024 12:07 PM [facility] LAB MCV 107.0(H) 79.0 - 98.0 FL LAB HEMETOLOGY METHOD 09/15/2024 12:07 PM [facility] LAB MCH 35.1(H) 27.0 - 32.0 pcg LAB HEMETOLOGY METHOD 09/15/2024 12:07 PM [facility] LAB MCHC 32.8 32.0 - 37.0 g/dL LAB HEMETOLOGY METHOD 09/15/2024 12:07 PM [facility] LAB RDW 19.0(H) 11.0 - 15.0 % LAB HEMETOLOGY METHOD 09/15/2024 12:07 PM [facility] LAB Platelets 141 130 - 400 K/mcL LAB HEMETOLOGY METHOD 09/15/2024 12:07 PM [facility] LAB MPV 9.2 7.0 - 11.0 FL LAB HEMETOLOGY METHOD 09/15/2024 12:07 PM [facility] LAB NRBC 0.0 <1.0 % LAB HEMETOLOGY METHOD 09/15/2024 12:07 PM [facility] LAB NRBC Absolute 0.00 <0.10 K/mcL LAB HEMETOLOGY METHOD 09/15/2024 12:07 PM [facility] LAB Blood Venous blood specimen / Unknown Venipuncture / Unknown 09/15/2024 7:07 AM EDT 09/15/2024 10:49 AM EDT us Lincoln Crespo MD LAB BLOOD ORDERABLES Final Resu lt [facility] LAB [address] [place] [address], [place] [phone] * (ABNORMAL) Comprehensive metabolic panel (09/15/2024 7:05 AM EDT) Sodium 143 133 - 145 mmol/L LAB CHEMISTRY METHOD 09/15/2024 12:43 PM [facility] LAB Potassium 3.6 3.5 - 5.5 mmol/L LAB CHEMISTRY METHOD 09/15/2024 12:43 PM [facility] LAB Chloride 110 96 - 110 mmol/L LAB CHEMISTRY METHOD 09/15/2024 12:43 PM [facility] LAB CO2 22 21 - 32 mmol/L LAB CHEMISTRY METHOD 09/15/2024 12:43 PM [facility] LAB Anion Gap 11 3 - 11 LAB CHEMISTRY METHOD 09/15/2024 12:43 PM [facility] LAB Glucose 90 70 - 100 mg/dL LAB CHEMISTRY METHOD 09/15/2024 12:43 PM [facility] LAB BUN 49(H) 5 - 25 mg/dL LAB CHEMISTRY METHOD 09/15/2024 12:43 PM [facility] LAB Creatinine 1.80(H) 0.50 - 1.10 mg/dL LAB CHEMISTRY METHOD 09/15/2024 12:43 PM [facility] LAB eGFR 29(L) >=60 mL/min/1. 73m2 LAB CHEMISTRY METHOD 09/15/2024 12:43 PM [facility] LAB Comment:Calculation based on the Chronic Kidney Disease Epidemiology Collaboration (CKD-EPI) equation refit without adjustment for race. BUN/Creatinine Ratio 27.2 LAB CHEMISTRY METHOD 09/15/2024 12:43 PM EDT [facility] LAB Calcium 8.9 8.5 - 10.5 mg/dL LAB CHEMISTRY METHOD 09/15/2024 12:43 PM T [facility] LAB AST (SGOT) 6(L) 10 - 42 unit/L LAB CHEMISTRY METHOD 09/15/2024 12:43 PM [facility] LAB ALT (SGPT) 15 10 - 60 unit/L LAB CHEMISTRY METHOD 09/15/2024 12:43 PM T [facility] LAB Alkaline Phosphatase 56 42 - 121 unit/L LAB CHEMISTRY METHOD 09/15/2024 12:43 PM [facility] LAB Total Protein 6.0 6.0 - 8.0 g/dL LAB CHEMISTRY METHOD 09/15/2024 12:43 PM [facility] LAB Albumin 3.0(L) 3.2 - 5.0 g/dL LAB CHEMISTRY METHOD 09/15/2024 12:43 PM [facility] LAB Total Bilirubin 0.5 0.0 - 1.4 mg/dL LAB CHEMISTRY METHOD 09/15/2024 12:43 PM [facility] LAB Blood Venous blood specimen / Unknown Venipuncture / Unknown 09/15/2024 7:05 AM EDT 09/15/2024 10:50 AM EDT us Lincoln Crespo MD LAB BLOOD ORDERABLES Final Resu lt [facility] [address] [place] [address], documented in this encounter Visit Diagnoses Diagnosis Essential (primary) hypertension Unspecified essential hypertension Atherosclerotic heart disease of [place] coronary artery without angina pectoris Anemia, unspecified documented in this encounter Care Teams Formula Room Worker Relationship Specialty Start Date End Date John Avina DO [address] [place] [phone] PCP - General Internal Medicine 06/10/24 documented as of this encounter
--- OUTSIDE RECORDS SUMMARY | 2024-12-28 18:11 | XMS_ITS | Encounter Summary ---
Author Organization [employer] Address [address] [place] [address] Care Team Providers Care Poultry Helper Name Role Phone John Avina DO Primary Care Provider Encounter Details Date Type Department Care Team (Late st Contact Info) Description 09/18/2024 Lab Requisition [facility] - Main Lab [address] [place] [address] Lincoln Crespo MD [address] [place] [address] Essential (primary) hypertension; Atherosclerotic heart disease of [place] coronary artery without angina pectoris; Anemia, unspecified [...] Unspecified essential hypertension Atherosclerotic heart disease of [place] coronary artery without angina pectoris Anemia, unspecified documented in this encounter Care Teams Poultry Helper Relationship Specialty Start Date End Date John Avina DO [address] [place] [phone] PCP - General Internal Medicine 06/10/24 documented as of this encounter
--- OUTSIDE RECORDS SUMMARY | 2024-12-28 18:11 | XMS_ITS | Clinical Summary ---
Author Organization [facility] Address [address] [facility] [address] [place] [address] Phone Care Team Providers Care Cloud Administrator Name Role Phone Aniceto Emery MD Primary Care Provider [phone] Juliann Tse MD Unavailable [phone] Henrry Espino MD Unavailable Allergies Active [...] Smoking Tobacco: Former Cigarettes 1 23 1 [phone] Education Answer Date Recorded Are you interested [...] EST) SODIUM 138 135 - 145 mmol/L [facility] LIC# [id number] POTASSIUM 3.8 3.5 - 5.0 mmol/L [facility] LIC# [id number] CHLORIDE 104 98 - 108 mmol/L [facility] LIC# [id number] CO2 27 23 - 32 mmol/L [facility] LIC# [id number] BUN 28(H) 9 - 25 mg/dL [facility] LIC# [id number] CREATININE 1.26 0.7 - 1.3 mg/dL [facility] LIC# [id number] GLUCOSE 143(H) 70 - 100 mg/dL [facility] LIC# [id number] ALBUMIN 4.3 3.7 - 5.4 g/dL [facility] LIC# [id number] TOTAL PROTEIN 7.4 6.0 - 8.0 g/dL [facility] LIC# [id number] CALCIUM 9.8 8.8 - 10.5 mg/dL [facility] LIC# [id number] ALKALINE PHOSPHATASE 82 36 - 118 U/L [facility] LIC# [id number] TOTAL BILIRUBIN 0.5 0.2 - 1.2 mg/dL [facility] LIC# [id number] AST 15 9 - 30 U/L [facility] LIC# [id number] ALT 16 7 - 52 U/L [facility] LIC# [id number] GLOBULIN 3.1 2.3 - 4.2 g/dL [facility] LIC# [id number] EGFR 42 mL/min/1.7 3m2 [facility] LIC# [id number] Comment:Abnormal if <60 mL/m in/1.73m2. If patient is -[place], multiply the result by 1.21. ANION GAP 7 5 - 17 mmol/L [facility] LIC# [id number] 06/04/2016 4:11 PM EST 06/04/2016 4:19 PM EST Henrry Espino MD LAB BLOOD ORDERABLES Final Result [facility] LIC# [id number] [address] [place] [address] from Last 3 Months or Most Recently Relevant to Health Maintenance Insurance PPO [place] [address] [place] [address] PPO PPO PPO PPO PPO [facility] PPO Advance Directives For more information, please contact: [phone] (9AM - 5PM [facility], Saturday-Saturday) Documents on File Type Date Recorded Patient Sod Stripper Expl anation Healthcare Proxy 06/04/2016 3:21 PM HCP Care Teams Cloud Administrator Relationship Specialty Start Date End Date Aniceto Emery MD PCP - General Internal Medicine 04/25/16 Henrry Espino MD [address] [place] [address] [email or web address] PCP - Hematology/Oncology Medical Oncology 06/06/16 Juliann Tse MD [address] [place] [phone] [email or web address] Referring Physician Hematology and Oncology 04/25/16 Additional Source Comments The information contained in this document represents components of the legal health record. It is not the complete legal health record.[facility]
--- OUTSIDE RECORDS SUMMARY | 2024-12-28 18:11 | XMS_ITS | Encounter Summary ---
Author Organization [employer] Address [address] [place] [address] Care Team Providers Care Ambulance Driver Paramedic Name Role Phone John Avina DO Primary Care Provider [phone] Encounter Details Date Type Department Care Team (Late st Contact Info) Description 09/05/2024 Lab Requisition [facility] - Main Lab [address] [facility] [place] [address] Lincoln Crespo MD [address] [place] [address] Essential (primary) hypertension; Atherosclerotic heart disease of [place] coronary artery without angina pectoris; Anemia, unspecified [...] Essential (primary) hypertension Atherosclerotic heart disease of [place] coronary artery without angina pectoris Anemia, unspecified COMPREHENSIVE METABOLIC PANEL Routine 09/07/2024 5:11 AM EDT Essential (primary) hypertension Atherosclerotic heart disease of [place] coronary artery without angina pectoris Anemia, unspecified documented in this encounter Results * (ABNORMAL) Comprehensive metabolic panel (09/07/2024 5:11 AM EDT) Sodium 144 133 - 145 mmol/L LAB CHEMISTRY METHOD 09/07/2024 2:49 PM EDT [facility] Potassium 3.9 3.5 - 5.5 mmol/L LAB CHEMISTRY METHOD 09/07/2024 2:[address] [facility] LAB Chloride 109 96 - 110 mmol/L LAB CHEMISTRY METHOD 09/07/2024 2:[address] [facility] LAB CO2 23 21 - 32 mmol/L LAB CHEMISTRY METHOD 09/07/2024 2:[address] [facility] LAB Anion Gap 12(H) 3 - 11 LAB CHEMISTRY METHOD 09/07/2024 2:[address] [facility] LAB Glucose 77 70 - 100 mg/dL LAB CHEMISTRY METHOD 09/07/2024 2:[address] [facility] LAB BUN 48(H) 5 - 25 mg/dL LAB CHEMISTRY METHOD 09/07/2024 2:[address] [facility] LAB Creatinine 1.93(H) 0.50 - 1.10 mg/dL LAB CHEMISTRY METHOD 09/07/2024 2:[address] [facility] LAB eGFR 26(L) >=60 mL/min/1. 73m2 LAB CHEMISTRY METHOD 09/07/2024 2:[address] [facility] LAB Comment:Calculation based on the Chronic Kidney Disease Epidemiology Collaboration (CKD-EPI) equation refit without adjustment for race. BUN/Creatinine Ratio 24.9 LAB CHEMISTRY METHOD 09/07/2024 2:[address] [facility] LAB Calcium 8.9 8.5 - 10.5 mg/dL LAB CHEMISTRY METHOD 09/07/2024 2:[address] [facility] LAB AST (SGOT) 6(L) 10 - 42 unit/L LAB CHEMISTRY METHOD 09/07/2024 2:[address] [facility] ALT (SGPT) 14 10 - 60 unit/L LAB CHEMISTRY METHOD 09/07/2024 2:[address] [facility] LAB Alkaline Phosphatase 61 42 - 121 unit/L LAB CHEMISTRY METHOD 09/07/2024 2:[address] [facility] LAB Total Protein 6.1 6.0 - 8.0 g/dL LAB CHEMISTRY METHOD 09/07/2024 2:49 PM EDT [facility] LAB Albumin 3.0(L) 3.2 - 5.0 g/dL LAB CHEMISTRY METHOD 09/07/2024 2:49 PM EDT [facility] LAB Total Bilirubin 0.5 0.0 - 1.4 mg/dL LAB CHEMISTRY METHOD 09/07/2024 2:49 PM EDT [facility] LAB Blood Venous blood specimen / Unknown Venipuncture / Unknown 09/07/2024 5:11 AM EDT 09/07/2024 2:11 PM EDT us Lincoln Crespo MD LAB BLOOD ORDERABLES Final Resu lt [facility] [address] [place] [address], [place] [phone] * (ABNORMAL) Complete blood count (09/07/2024 5:11 AM EDT) WBC 5.1 4.8 - 10.8 K/mcL LAB HEMETOLOGY METHOD 09/07/2024 3:07 PM EDT [facility] LAB RBC 2.40(L) 3.80 - 4.80 M/mcL LAB HEMETOLOGY METHOD 09/07/2024 3:07 PM EDT [facility] LAB Hemoglobin 8.2(L) 11.5 - 16.0 g/dL LAB HEMETOLOGY METHOD 09/07/2024 3:07 PM EDT [facility] LAB Hematocrit 25.9(L) 35.0 - 47.0 % LAB HEMETOLOGY METHOD 09/07/2024 3:07 PM EDT [facility] LAB MCV 107.9(H) 79.0 - 98.0 FL LAB HEMETOLOGY METHOD 09/07/2024 3:07 PM EDT [facility] LAB MCH 34.2(H) 27.0 - 32.0 pcg LAB HEMETOLOGY METHOD 09/07/2024 3:07 PM EDT [facility] MCHC 31.7(L) 32.0 - 37.0 g/dL LAB HEMETOLOGY METHOD 09/07/2024 3:07 PM EDT [facility] LAB RDW 19.3(H) 11.0 - 15.0 % LAB HEMETOLOGY METHOD 09/07/2024 3:07 PM EDT [facility] LAB Platelets 176 130 - 400 K/mcL LAB HEMETOLOGY METHOD 09/07/2024 3:07 PM EDT [facility] LAB MPV 9.0 7.0 - 11.0 FL LAB HEMETOLOGY METHOD 09/07/2024 3:07 PM EDT [facility] LAB NRBC 0.0 <1.0 % LAB HEMETOLOGY METHOD 09/07/2024 3:07 PM EDT [facility] LAB NRBC Absolute 0.00 <0.10 K/mcL LAB HEMETOLOGY METHOD 09/07/2024 3:07 PM EDT [facility] LAB Blood Venous blood specimen / Unknown Venipuncture / Unknown 09/07/2024 5:11 AM EDT 09/07/2024 12:03 PM EDT us Lincoln Crespo MD LAB BLOOD ORDERABLES Final Resu lt [facility] [address] [place] [address], [place] [phone] documented in this encounter Visit Diagnoses Diagnosis Essential (primary) hypertension Unspecified essential hypertension Atherosclerotic heart disease of [place] coronary artery without angina pectoris Anemia, unspecified documented in this encounter Care Teams Ambulance Driver Paramedic Relationship Specialty Start Date End Date John Avina DO [address] [place] [phone] PCP - General Internal Medicine 06/10/24 documented as of this encounter
--- OUTSIDE RECORDS SUMMARY | 2024-12-28 18:11 | XMS_ITS | Encounter Summary ---
Author Organization [employer] Address [address] [place] [address] Care Team Providers Care Asphalt Distributor Tender Name Role Phone John Avina DO Primary Care Provider [phone] Encounter Details Date Type Department Care Team (Late st Contact Info) Description 09/09/2024 Lab Requisition [facility] - Main Lab [address] [facility] [place] [address] Lincoln Crespo MD [address] [place] [address] Essential (primary) hypertension; Atherosclerotic heart disease of [place] coronary artery without angina pectoris; Anemia, unspecified; [...] Essential (primary) hypertension Atherosclerotic heart disease of [place] coronary artery without angina pectoris Anemia, unspecified Chronic kidney disease, unspecified BASIC METABOLIC PANEL Routine 09/10/2024 6:12 AM EDT Essential (primary) hypertension Atherosclerotic heart disease of [place] coronary artery without angina pectoris Anemia, unspecified Chronic kidney disease, unspecified documented in this encounter Results * (ABNORMAL) Basic metabolic panel (09/10/2024 6:12 AM EDT) Sodium 146(H) 133 - 145 mmol/L LAB CHEMISTRY METHOD 09/10/2024 10:04 AM [facility] LAB Potassium 4.0 3.5 - 5.5 mmol/L LAB CHEMISTRY METHOD 09/10/2024 10:04 AM [facility] LAB Chloride 113(H) 96 - 110 mmol/L LAB CHEMISTRY METHOD 09/10/2024 10:04 AM [facility] LAB CO2 26 21 - 32 mmol/L LAB CHEMISTRY METHOD 09/10/2024 10:04 AM [facility] LAB Anion Gap 7 3 - 11 LAB CHEMISTRY METHOD 09/10/2024 10:04 AM [facility] LAB Glucose 84 70 - 100 mg/dL LAB CHEMISTRY METHOD 09/10/2024 10:04 AM [facility] BUN 44(H) 5 - 25 mg/dL LAB CHEMISTRY METHOD 09/10/2024 10:04 AM [facility] LAB Creatinine 2.03(H) 0.50 - 1.10 mg/dL LAB CHEMISTRY METHOD 09/10/2024 10:04 AM [facility] LAB eGFR 25(L) >=60 mL/min/1. 73m2 LAB CHEMISTRY METHOD 09/10/2024 10:04 AM [facility] LAB Comment:Calculation based on the Chronic Kidney Disease Epidemiology Collaboration (CKD-EPI) equation refit without adjustment for race. BUN/Creatinine Ratio 21.7 LAB CHEMISTRY METHOD 09/10/2024 10:04 AM [facility] LAB Calcium 8.8 8.5 - 10.5 mg/dL LAB CHEMISTRY METHOD 09/10/2024 10:04 AM [facility] LAB Blood Venous blood specimen / Unknown Venipuncture / Unknown 09/10/2024 6:12 AM EDT 09/10/2024 9:16 AM EDT us Lincoln Crespo MD LAB BLOOD ORDERABLES Final Resu lt [facility] [address] [place] [address], * (ABNORMAL) Complete blood count (09/10/2024 6:12 AM EDT) [facility] WBC 5.2 4.8 - 10.8 K/mcL LAB HEMETOLOGY METHOD 09/10/2024 9:33 AM EDT [facility] LAB RBC 2.50(L) 3.80 - 4.80 M/mcL LAB HEMETOLOGY METHOD 09/10/2024 9:33 AM EDT [facility] LAB Hemoglobin 8.6(L) 11.5 - 16.0 g/dL LAB HEMETOLOGY METHOD 09/10/2024 9:33 AM EDT [facility] LAB Hematocrit 26.4(L) 35.0 - 47.0 % LAB HEMETOLOGY [facility]24 [facility] MCV 106.5(H) 79.0 - 98.0 FL LAB HEMETOLOGY METHOD 09/10/2024 9:33 AM EDT [facility] MCH 34.7(H) 27.0 - 32.0 pcg LAB HEMETOLOGY METHOD 09/10[facility]2024 9[facility] MCHC 32.6 32.0 - 37.0 g/dL LAB HEMETOLOGY METHOD 09/10/2024 9:[facility] RDW 19.2(H) 11.0 - 15.0 % LAB HEMETOLOGY METHOD 09/10/2024 9:33 AM EDT [facility] Platelets 161 130 - 400 K/mcL LAB HEMETOLOGY METHOD 09/10/2024 9:33 AM EDT [facility] MPV 9.3 7.0 - 11.0 FL LAB HEMETOLOGY METHOD 09/10/2024 9:33 AM EDT [facility] NRBC 0.0 <1.0 % LAB HEMETOLOGY METHOD 09/10/2024 9:33 AM EDT [facility] NRBC Absolute 0.00 <0.10 K/mcL LAB HEMETOLOGY METHOD 09/10/2024 9:33 AM EDT [facility] Blood Venous blood specimen / Unknown Venipuncture / Unknown 09/10/2024 6:12 AM EDT 09/10/2024 9:16 AM EDT us Lincoln Crespo MD LAB BLOOD ORDERABLES Final Resu lt [facility] ([facility] [address] [place] [address], documented in this encounter Visit Diagnoses Diagnosis Essential (primary) hypertension Unspecified essential hypertension Atherosclerotic heart disease of [place] coronary artery without angina pectoris Anemia, unspecified Chronic kidney disease, unspecified documented in this encounter Care Teams Asphalt Distributor Tender Relationship Specialty Start Date End Date John Avina DO [address] [place] [phone] PCP - General Internal Medicine 06/10/24 documented as of this encounter
== END 2024-12-28 15:27 | disposition home or self-care (01) ==
LOC: HO.PMC 14:54
PROVIDERS: PCP Internal Medicine; Visit Provider Nurse Practitioner Family
DX: M47.816 Spondylosis without myelopathy or radiculopathy, lumbar region (principal); M51.369 Other intervertebral disc degeneration, lumbar region without mention of lumbar back pain or lower extremity pain; M41.9 Scoliosis, unspecified; M54.16 Radiculopathy, lumbar region; M54.9 Dorsalgia, unspecified; G89.29 Other chronic pain; M25.552 Pain in left hip
CPT/HCPCS: 99204

== ENCOUNTER → 2024-12-28 14:54 | Outpatient (BNVA) | payer MEDICARE, SELFPAY | PROVIDERS: PCP Internal Medicine; Visit Provider Nurse Practitioner Family | DX: M25.552 Pain in left hip (principal); M54.9 Dorsalgia, unspecified; G89.29 Other chronic pain; M54.16 Radiculopathy, lumbar region; M51.369 Other intervertebral disc degeneration, lumbar region without mention of lumbar back pain or lower extremity pain; M47.816 Spondylosis without myelopathy or radiculopathy, lumbar region | CPT/HCPCS: 99202 ==

== ENCOUNTER 2025-01-12 13:22 | Outpatient (AMB) | payer MEDICARE, SELFPAY ==
--- NOTE | 2025-01-12 13:24 | MHC.PC.OV ---
Vital Signs 01/12/25 13:28 Height 4 ft 11.06 in Weight 123 lb 2 oz BMI 24.8 BP 119/57 L Blood Pressure Location Lt brachial Position Sitting Respiration 20 Pulse 66 Pulse Source Pulse Oximeter Temp 97.4 F Temp Source Temporal Artery Scan Pulse Oximetry (%) 99 Oxygen Delivery Method Room Air Intake Visit Reasons: 1 month f/u City Assessor Required: No Machine Crater: Not Required per policy Accompanied by: Self / Same As Patient Allergies diphenhydramine (From Benadryl) Allergy (Intermediate, Verified 01/12/25 16:36) Dizziness esomeprazole (From NEXIUM) Allergy (Intermediate, Verified 01/12/25 16:36) CHEST PAIN omeprazole (From PRILOSEC) Allergy (Intermediate, Verified 01/12/25 16:36) CHEST PAIN Medication List - Last Reconciled 01/12/25 by YOVANA MorenoC [acetaminophen 1,000 mg PO DAILY PRN] allopurinol 300 mg PO DAILY ascorbic acid (vitamin C) (Vitamin C) 500 mg PO DAILY biotin 1 mg PO DAILY bumetanide 1 mg PO DAILY 90 days calcium carbonate (Calcium 600) 600 mg PO DAILY carvedilol 6.25 mg PO BID cholecalciferol (vitamin D3) (Vitamin D3) 50 mcg PO DAILY clopidogrel 75 mg PO DAILY cranberry 500 mg PO DAILY cyanocobalamin (vitamin B-12) 5,000 mcg PO DAILY d-mannose 500 mg PO DAILY exemestane 25 mg PO DAILY folic acid 1 mg PO DAILY hydralazine 25 mg See Protocol PO BID levothyroxine 100 mcg PO 4XW loratadine (Claritin) 10 mg PO DAILY rosuvastatin 20 mg PO DAILY vitamin E (dl, acetate) 450 mg PO DAILY Tobacco use date assessed: 07/07/24 Fall risk assessment: 2 + Falls in past year Last assessed Fall Risk: 10/22/24 Dental Screening Dental Screen Date: 10/22/24 Did you have a dental visit in the last 12 months?: Yes Did you have a dental problem in the last 6 months where you did not have access to dental care?: No Was dental information given to patient?: Patient has dentist HPI 1 month f/u HPI Details The patient is a 79-year-old female presenting with a follow-up visit. She has a history of heart failure and is currently on medications including budesonide and carvedilol. She is currently on Plavix. Her creatinine levels are around 2, and she has chronic anemia. The patient underwent x-rays and is scheduled for a lumbar and spine MRI due to degenerative changes noted in her lumbar spine. Previous imaging showed sclerotic changes at L5 likely related to degenerative changes, with no pathological compression fracture or focal osseous lesion. She reports persistent phlegm in her throat, which may be due to postnasal drip, causing difficulty swallowing saliva. A barium swallow test has been suggested to evaluate her swallowing function. The patient recently received a flu vaccination and is otherwise feeling well, with no dizziness, chest pain, or lightheadedness reported. [facility] Medical History (Updated 01/12/25 @ 16:41 by Mimi Calderón PA-C) Post-nasal drip Trouble swallowing Chronic back pain Impacted cerumen of left ear Lower back pain Left hip pain CAD (coronary atherosclerotic disease) Osteoarthritis Hypothyroidism Multiple myeloma CKD stage 3 due to type 2 diabetes mellitus Impingement syndrome, shoulder Left shoulder pain CHF (congestive heart failure) Closed left hip fracture CAD (coronary artery disease) CHF (congestive heart failure) Cervix prolapsed into vagina History of blood transfusion (~02/01/23) Diabetes mellitus HFrEF (heart failure with reduced ejection fraction) Cardiomyopathy Normal colonoscopy Type 2 diabetes mellitus Diverticulosis Irritable bowel syndrome Pulmonary emboli GERD (gastroesophageal reflux disease) Nephrolithiasis Hypoparathyroidism Papillary thyroid carcinoma HTN (hypertension) Polymyalgia rheumatica Hyperglycemia Chronic anemia Anemia Surgical History Status post hip surgery (~08/04/23) History of colonoscopy (~07/30/18) Stented coronary artery Breast mass, right H/O endoscopy History of cholecystectomy H/O total thyroidectomy Family History Sister CHF (congestive heart failure) Daughter Breast cancer Son Kidney stones Social History Household Members: Other Household Members Other:: other Housing: House Do you presently have visiting nurse or other home services: Yes Alcohol intake: current Alcohol intake frequency: does not drink Patient Tobacco Use Status: Former Tobacco user Years Smoked: 30 +/- e-Cigarette/Vaping Use: Never Used Second Hand Smoke Exposure: No Advance Directives Date on File: 06/27/24 service: No Current occupational status: retired Current occupation: Right Handed Cognitive needs: Yes (cane) Hearing needs: No Vision needs: Yes (reading glasses) Questionnaire PHQ-9 Over the last 2 weeks, how often have you been bothered by any of the following problems? 1. Little interest or pleasure in doing things: not at all 2. Feeling down, depressed, or hopeless: not at all 3. Trouble falling or staying asleep, or sleeping too much: several days 4. Feeling tired or having little energy: nearly every day 5. Poor appetite or overeating: not at all 6. Feeling bad about yourself - or that you are a failure or have let yourself or your family down: not at all 7. Trouble concentrating on things, such as reading the newspaper or watching television: not at all 8. Moving or speaking so slowly that other people could have noticed. Or the opposite - being so fidgety or restless that you have been moving around a lot more than usual: not at all 9. Thoughts that you would be better off or of hurting yourself in some way: not at all Total score: 4 Depression Screening Interpretation: Negative Depression Screening Done: Yes 02765 - PHQ-9 Billing: Yes Source: Developed by Drs. John Torres, Park Emanuel, Tu Mccain and colleagues, with an educational ridge from [employer]. Thrive Questionnaire Date Thrive assessed: 10/28/24 I am a: Patient What is your living situation today?: I have a steady place to live Within the past 12 months, did the food you bought not last and you didn't have the money to get more?: Never true Within the past 12 months, did you worry whether your food would run out before you got money to buy more?: Never true Do you have trouble paying for medicines?: No Do you have trouble getting transportation to medical appointments?: No Do you have trouble paying your heating and electricity bill?: No Do you have trouble taking care of your child, family member or friend?: No Do you have trouble with day-to-day activities such as bathing, preparing meals, shopping, managing finances, etc.?: No Are you currently unemployed and looking for a job?: No Are you interested in more education?: No Please select the resources that you would like help with: None Currently or been in a relationship where the following occur: No concerns reported THRIVE Score: 0 AUDIT C Alcohol Use Questionnaire (AUDIT-C) 1. How often do you have a drink containing alcohol?: Never 3. How often do you have six or more drinks on one occasion?: Never Total Score: 0 Score Reviewed/Action Taken: No RASHAUN-7 AMB Questionnaire RASHAUN-7 Date RASHAUN - 7 assessed: 07/07/24 Feeling nervous, anxious, or on edge: 0 = Not at all Not being able to stop or control worryin = Not at all Worrying too much about different things: 0 = Not at all Trouble relaxin = Several days Being so restless that it is hard to sit still: 0 = Not at all Becoming easily annoyed or irritable: 0 = Not at all Feeling afraid as if something awful might happen: 0 = Not at all Total RASHAUN-7 score (0-4 normal; 5-9 mild; 10-14 moderate; 15-21 severe): 1 Source: Developed by Drs. John Torres, Park Emanuel, Tu Mccain and colleagues, with an educational ridge from [employer]. RASHAUN-7 Assessment Billing RASHAUN-7 Assessment Tool: RASHAUN-7 Assessment 56199 Review of Systems Const Details: - Cardiovascular: Denies chest pain, dizziness, or lightheadedness. - Respiratory: Reports persistent phlegm in throat, possibly due to postnasal drip. - Gastrointestinal: Reports difficulty swallowing saliva. All systems reviewed & are unremarkable except as noted in HPI and below Physical exam (Primary Care) Vital Signs: Last Vital Signs Temp 97.4 F 01/12/25 13:28 Pulse 66 01/12/25 13:28 Resp 20 01/12/25 13:28 BP 119/57 L 01/12/25 13:28 Pulse Ox 99 01/12/25 13:28 Oxygen Delivery Method Room Air 01/12/25 13:28 Care Plan Goal for BP management: <140/90 at Goal BMI result Body Mass Index 24.8 Normal BMI Tobacco/Smoking Status: Tobacco use Status Tobacco use date assessed 03/18/25 09/23/25 13:26 Patient Tobacco Use Status Former Tobacco user 01/12/25 13:26 Tobacco use type 12/08/24 16:15 e-Cigarette/Vaping Use Never Used 01/12/25 13:26 PHQ-9: PHQ-9 Score PHQ-9: Total score 4 01/12/25 13:39 Depression Screening Interpretation: Negative Thrive Assessment: Date of Thrive Assessment Date Thrive assessed 10/28/24 01/12/25 13:26 Currently or been in a relationship where the following occur: No concerns reported Const Other: Appearance: Alert. Oriented X3. No acute distress. Head: Normal external exam. Normocephalic. Atraumatic. Eyes: Pupils are equal, round, and reactive to light. Extraocular movements intact. Conjunctiva and sclera normal. Eyelids normal. Throat: Pharynx normal. Uvula midline. Moist mucous membranes. No trismus drooling or stridor is noted. Normal voice. Patient reports phlegm in throat and difficulty swallowing saliva, possibly due to postnasal drip. Neck: Normal inspection. Neck supple. Full range of motion. No adenopathy. Thyroid Normal. No meningeal signs. No neck mass noted. Cardiovascular: Normal heart rate and rhythm. Heart sound normal. No murmurs noted. Pulses normal throughout. Respiratory: No respiratory distress. Painless inspiration. Breath sounds normal. No wheezes/rales/rhonchi noted. Chest nontender. No accessory muscle usage noted or decreased air movement noted. Back: Full range of motion noted. Skin: Skin warm and dry. Normal skin color. Normal skin turgor. No rashes/lesions/lacerations noted. Extremities: No lower extremity edema. Extremities exhibit normal range of motion. Extremities nontender. Neuro: Oriented X 3. No motor deficit. No sensory deficit. Reflexes normal. Office Procedures Flu Questionnaire Does the patient have a severe egg allergy?: No Does the patient have severe life threatening allergies?: No Does the patient have a fever or illness today?: No Has the patient ever had Guillain-Delano Syndrome?: No Has the patient ever had any past reaction to a flu shot?: No Immunizations Fluarix [id number] (PF) 45 mcg (15 mcg x 3)/0.5 mL IM syringe Performing Provider: Mimi Calderón PA-C Per[facility] [place] Administered by: Dolly Butts CMA on 01/12/25 13:41 Dose Route Admin Location Dispensed Lot Number Expiration Date [facility] Mortician Helper 0.5 mL IM Left Deltoid 0.5 mL [id number] 10/19/25 [id number] [employer] VIS Given Date VIS Provided VIS Publication Date 01/12/25 Single Vaccine 24 Eligibility Eligibility Date Funding Source Not [facility] Eligible 01/12/25 Private Results Reviewed Results Reviewed: - Imaging: Previous MRI showed sclerotic changes at L5, no pathological compression fracture or focal osseous lesion. - Labs: Recent blood work indicated chronic anemia. Coding Level of Care Code Est Pt Level 4 (23434) Complex EM visit Add On G2211 Diagnoses HFrEF (heart failure with reduced ejection fraction) I50.20 Chronic anemia D64.9 Lumbar degenerative disc disease M51.369 Post-nasal drip R09.82 Additional Codes RASHAUN-7 Assessment Billing - RASHAUN-7 Assessment Tool: RASHAUN-7 Assessment 68081 ([id number]) PHQ-9 - 95951 - PHQ-9 Billing: Yes ([id number]) Assessment & Plan Assessment & Plan (1) HFrEF (heart failure with reduced ejection fraction): Code(s): I50.20 - Unspecified systolic (congestive) heart failure Category: Medical Plan: The patient is currently on budesonide and carvedilol for management of heart failure. Her blood pressure is stable at 119/57 mmHg, and she reports no dizziness or chest pain. (2) Chronic anemia: Code(s): D64.9 - Anemia, unspecified Category: Medical Plan: The patient is on clopidogrel for chronic anemia and recently had blood work done to monitor her condition. She received two units of blood previously due to low hemoglobin levels. (3) Lumbar degenerative disc disease: Code(s): M51.369 - Other intervertebral disc degeneration, lumbar region without mention of lumbar back pain or lower extremity pain Category: Medical Plan: The patient is scheduled for a lumbar and spine MRI to further evaluate degenerative changes noted in previous imaging. The MRI will help assess the extent of sclerotic changes at L5. (4) Post-nasal drip: Code(s): R09.82 - Postnasal drip Category: Medical Plan: The patient reports persistent phlegm in her throat, possibly due to postnasal drip, causing difficulty swallowing saliva. A barium swallow test has been suggested to evaluate her swallowing function, and Claritin has been prescribed to address potential postnasal drip. Plan Plan Patient was informed and verbally consented to the use of an ambient scribe for clinic note documentation during this visit. 1. Heart Failure The patient is currently on budesonide and carvedilol for management of heart failure. Her blood pressure is stable at 119/57 mmHg, and she reports no dizziness or chest pain. 2. Chronic Anemia The patient is on clopidogrel for chronic anemia and recently had blood work done to monitor her condition. She received two units of blood previously due to low hemoglobin levels. 3. Degenerative Changes In Lumbar Spine The patient is scheduled for a lumbar and spine MRI to further evaluate degenerative changes noted in previous imaging. The MRI will help assess the extent of sclerotic changes at L5. 4. Phlegm In Throat Possibly Due To Postnasal Drip The patient reports persistent phlegm in her throat, possibly due to postnasal drip, causing difficulty swallowing saliva. A barium swallow test has been suggested to evaluate her swallowing function, and Claritin has been prescribed to address potential postnasal drip. During the visit, we discussed the management of the patient's heart failure with current medications, including budesonide and carvedilol. We also reviewed her chronic anemia and the need for ongoing monitoring through blood work. The patient is scheduled for a lumbar spine MRI to assess degenerative changes, and a barium swallow test was suggested to evaluate her swallowing difficulties. We agreed on a three-month follow-up to monitor her conditions closely. Orders: Orders Complete Blood Count Auto Diff Today Z00.00 - Encounter for general adult medical examination without abnormal findings [place] barium swallow Today R13.10 - Dysphagia, unspecified Influenza 0460-8945 Immunization Today Z23 - Encounter for immunization Comprehensive Met. Panel Today Z00.00 - Encounter for general adult medical examination without abnormal findings Magnesium Today Z00.00 - Encounter for general adult medical examination without abnormal findings Medications: New loratadine (Claritin) 10 mg PO DAILY 90 tabs 3RF Patient Instructions: - Continue taking prescribed medications, including budesonide, carvedilol, and clopidogrel. - Attend scheduled MRI and barium swallow appointments. - Take Claritin daily in the morning to address potential postnasal drip. - Follow up in three months for reassessment.
[2025-01-12 13:28] VITALS: BP 119/57; PULSE 66; RESP 20; TEMP 36.3; O2SAT 99; BMI 24.8
--- OUTSIDE RECORDS SUMMARY | 2025-01-12 16:24 | XMS_ITS | Clinical Summary ---
Author Organization [facility] Address [address] [place] [id number] Phone Care Team Providers Care Video Editor Name Role Phone Aniceto Emery MD Primary Care Provider [phone] Juliann Tse MD Unavailable [phone] Henrry Espino MD Unavailable [phone] Allergies Active Allergy Reactions Criticality Noted Date [...] Smoking Tobacco: Former Cigarettes 1 23 1 059 - 0204 Education Answer Date Recorded Are you interested [...] EST) SODIUM 138 135 - 145 mmol/L [facility] LIC# [id number] POTASSIUM 3.8 3.5 - 5.0 mmol/L [facility] LIC# [id number] CHLORIDE 104 98 - 108 mmol/L [facility] LIC# [id number] CO2 27 23 - 32 mmol/L [facility] LIC# [id number] BUN 28(H) 9 - 25 mg/dL [facility] LIC# [id number] CREATININE 1.26 0.7 - 1.3 mg/dL [facility] LIC# [id number] GLUCOSE 143(H) 70 - 100 mg/dL [facility] LIC# [id number] ALBUMIN 4.3 3.7 - 5.4 g/dL [facility] LIC# [id number] TOTAL PROTEIN 7.4 6.0 - 8.0 g/dL [facility] LIC# [id number] CALCIUM 9.8 8.8 - 10.5 mg/dL [facility] LIC# [id number] ALKALINE PHOSPHATASE 82 36 - 118 U/L [facility] LIC# [id number] TOTAL BILIRUBIN 0.5 0.2 - 1.2 mg/dL [facility] LIC# [id number] AST 15 9 - 30 U/L [facility] LIC# [id number] ALT 16 7 - 52 U/L [facility] LIC# [id number] GLOBULIN 3.1 2.3 - 4.2 g/dL [facility] LIC# [id number] EGFR 42 mL/min/1.7 3m2 [facility] LIC# [id number] Comment:Abnormal if <60 mL/m in/1.73m2. If patient is -[place], multiply the result by 1.21. ANION GAP 7 5 - 17 mmol/L [facility] LIC# [id number] 06/04/2016 4:11 PM EST 06/04/2016 4:19 PM EST Henrry Espino MD LAB BLOOD ORDERABLES Final Result [facility] LIC# [id number] [address] [place] [address] from Last 3 Months or Most Recently Relevant to Health Maintenance Insurance PPO [place] [address] [place] [address] PPO PPO PPO PPO PPO [facility] PPO Advance Directives For more information, please contact: [phone] (9AM - 5PM [facility], Saturday-Saturday) Documents on File Type Date Recorded Patient Process Plant Operator Expl anation Healthcare Proxy 06/04/2016 3:21 PM HCP Care Teams Video Editor Relationship Specialty Start Date End Date Aniceto Emery MD PCP - General Internal Medicine 04/25/16 Henrry Espino MD [address] [place] [address] Multiple Myeloma [facility] [address] [email or web address] PCP - Hematology/Oncology Medical Oncology 06/06/16 Juliann Tse MD [address] [place] [id number] [email or web address] Referring Physician Hematology and Oncology 04/25/16 Additional Source Comments The information contained in this document represents components of the legal health record. It is not the complete legal health record.[facility]
--- OUTSIDE RECORDS SUMMARY | 2025-01-12 16:24 | XMS_ITS | Encounter Summary ---
Author Organization [employer] Address [address] [place] [id number] Care Team Providers Care Socially Responsible Investment Adviser Name Role Phone John Avina DO Primary Care Provider Encounter Details Date Type Department Care Team (Late st Contact Info) Description 09/18/2024 Lab Requisition [facility] - Main Lab [address] [place] [address] Lincoln Crespo MD [address] [place] [address] Essential (primary) hypertension; Atherosclerotic heart disease of [place] coronary artery without angina pectoris; Anemia, unspecified [...] Unspecified essential hypertension Atherosclerotic heart disease of [place] coronary artery without angina pectoris Anemia, unspecified documented in this encounter Care Teams Socially Responsible Investment Adviser Relationship Specialty Start Date End Date John Avina DO [address] [place] [id number] PCP - General Internal Medicine 06/10/24 documented as of this encounter
--- OUTSIDE RECORDS SUMMARY | 2025-01-12 16:24 | XMS_ITS | Encounter Summary ---
Author Organization [employer] Address [address] [place] [address] Care Team Providers Care Backhaul Driver Name Role Phone John Avina DO Primary Care Provider [phone] Encounter Details Date Type Department Care Team (Late st Contact Info) Description 08/26/2024 Lab Requisition [facility] - Main Lab [address] [facility] [place] [address] Lincoln Crespo MD [address] [place] [address] Essential (primary) hypertension; Atherosclerotic heart disease of [place] coronary artery without angina pectoris; Anemia, unspecified; [...] Essential (primary) hypertension Atherosclerotic heart disease of [place] coronary artery without angina pectoris Anemia, unspecified Chronic kidney disease, unspecified BASIC METABOLIC PANEL Routine 08/27/2024 5:31 AM EDT Essential (primary) hypertension Atherosclerotic heart disease of [place] coronary artery without angina pectoris Anemia, unspecified Chronic kidney disease, unspecified documented in this encounter Results * (ABNORMAL) Basic metabolic panel (08/27/2024 5:31 AM EDT) Sodium 144 133 - 145 mmol/L LAB CHEMISTRY METHOD 08/27/2024 10:08 AM [facility] Potassium 4.1 3.5 - 5.5 mmol/L LAB CHEMISTRY METHOD 08/27/2024 10:08 AM [facility] Chloride 111(H) 96 - 110 mmol/L LAB CHEMISTRY METHOD 08/27/2024 10:08 AM [facility] CO2 26 21 - 32 mmol/L LAB CHEMISTRY METHOD 08/27/2024 10:08 AM [facility] Anion Gap 7 3 - 11 LAB CHEMISTRY METHOD 08/27/2024 10:08 AM [facility] Glucose 86 70 - 100 mg/dL LAB CHEMISTRY METHOD 08/27/2024 10:08 AM [facility] BUN 41(H) 5 - 25 mg/dL LAB CHEMISTRY METHOD 08/27/2024 10:08 AM [facility] Creatinine 1.64(H) 0.50 - 1.10 mg/dL LAB CHEMISTRY METHOD 08/27/2024 10:08 AM [facility] eGFR 32(L) >=60 mL/min/1. 73m2 LAB CHEMISTRY METHOD 08/27/2024 10:08 AM [facility] Comment:Calculation based on the Chronic Kidney Disease Epidemiology Collaboration (CKD-EPI) equation refit without adjustment for race. BUN/Creatinine Ratio 25.0 LAB CHEMISTRY METHOD 08/27/2024 10:08 AM [facility] Calcium 8.6 8.5 - 10.5 mg/dL LAB CHEMISTRY METHOD 08/27/2024 10:08 AM [facility] Blood Venous blood specimen / Unknown Venipuncture / Unknown 08/27/2024 5:31 AM EDT 08/27/2024 8:43 AM EDT us Lincoln Crespo MD LAB BLOOD ORDERABLES Final Resu lt [facility] [address] [place] [address], * (ABNORMAL) Complete blood count (08/27/2024 5:31 AM EDT) [facility] WBC 5.4 4.8 - 10.8 K/mcL LAB HEMETOLOGY [facility] RBC 2.70(L) 3.80 - 4.80 M/mcL LAB HEMETOLOGY METHOD 08/27/2024 9:02 AM [facility] Hemoglobin 9.0(L) 11.5 - 16.0 g/dL LAB HEMETOLOGY METHOD 08/27/2024 9:02 AM [facility] Hematocrit 27.9(L) 35.0 - 47.0 % LAB HEMETOLOGY METHOD 08/27/2024 9:02 AM [facility] MCV 104.1(H) 79.0 - 98.0 FL LAB HEMETOLOGY METHOD 08/27/2024 9:02 AM [facility] MCH 33.6(H) 27.0 - 32.0 pcg LAB HEMETOLOGY METHOD 08/27/2024 9:02 AM [facility] LAB MCHC 32.3 32.0 - 37.0 g/dL LAB HEMETOLOGY METHOD 08/27/2024 9:02 AM [facility] RDW 19.1(H) 11.0 - 15.0 % LAB HEMETOLOGY METHOD 08/27/2024 9:02 AM [facility] Platelets 214 130 - 400 K/mcL LAB HEMETOLOGY METHOD 08/27/2024 9:02 AM [facility] MPV 9.3 7.0 - 11.0 FL LAB HEMETOLOGY METHOD 08/27/2024 9:02 AM [facility] NRBC 0.0 <1.0 % LAB HEMETOLOGY METHOD 08/27/2024 9:02 AM EDT [facility] NRBC Absolute 0.00 <0.10 K/mcL LAB HEMETOLOGY METHOD 08/27/2024 9:02 AM EDT [facility] Blood Venous blood specimen / Unknown Venipuncture / Unknown 08/27/2024 5:31 AM EDT 08/27/2024 8:51 AM EDT us Lincoln Crespo MD LAB BLOOD ORDERABLES Final Resu lt [facility] [address] [place] [address], documented in this encounter Visit Diagnoses Diagnosis Essential (primary) hypertension Unspecified essential hypertension Atherosclerotic heart disease of [place] coronary artery without angina pectoris Anemia, unspecified Chronic kidney disease, unspecified documented in this encounter Care Teams Backhaul Driver Relationship Specialty Start Date End Date John Avina DO [address] [place] [phone] PCP - General Internal Medicine 06/10/24 documented as of this encounter
--- OUTSIDE RECORDS SUMMARY | 2025-01-12 16:24 | XMS_ITS | Encounter Summary ---
Author Organization [facility] Address [address] [place] [address] Care Team Providers Care Hog Operator Name Role Phone John Avina DO Primary Care Provider [phone] Encounter Details Date Type Department Care Team (Late st Contact Info) Description 08/30/2024 Lab Requisition [facility] - Main Lab [address] [facility] [place] [address] Lincoln Crespo MD [address] [place] [address] Essential (primary) hypertension; Atherosclerotic heart disease of [place] coronary artery without angina pectoris; Anemia, unspecified [...] Essential (primary) hypertension Atherosclerotic heart disease of [place] coronary artery without angina pectoris Anemia, unspecified COMPREHENSIVE METABOLIC PANEL Routine 08/31/2024 5:18 AM EDT Essential (primary) hypertension Atherosclerotic heart disease of [place] coronary artery without angina pectoris Anemia, unspecified documented in this encounter Results * (ABNORMAL) Comprehensive metabolic panel (08/31/2024 5:18 AM EDT) Sodium 141 133 - 145 mmol/L LAB CHEMISTRY METHOD 08/31/2024 1:17 PM EDT [facility] Potassium 4.7 3.5 - 5.5 mmol/L LAB CHEMISTRY METHOD 08/31/2024 1:17 PM [facility] Comment:Hemolysis present Chloride 110 96 - 110 mmol/L LAB CHEMISTRY METHOD 08/31/2024 1:17 PM [facility] CO2 15(L) 21 - 32 mmol/L LAB CHEMISTRY METHOD 08/31/2024 1:17 PM [facility] Anion Gap 16(H) 3 - 11 LAB CHEMISTRY METHOD 08/31/2024 1:17 PM [facility] Glucose 67(L) 70 - 100 mg/dL LAB CHEMISTRY METHOD 08/31/2024 1:17 PM [facility] BUN 49(H) 5 - 25 mg/dL LAB CHEMISTRY METHOD 08/31/2024 1:17 PM [facility] Creatinine 1.99(H) 0.50 - 1.10 mg/dL LAB CHEMISTRY METHOD 08/31/2024 1:17 PM [facility] eGFR 25(L) >=60 mL/min/1. 73m2 LAB CHEMISTRY METHOD 08/31/2024 1:17 PM [facility] Comment:Calculation based on the Chronic Kidney Disease Epidemiology Collaboration (CKD-EPI) equation refit without adjustment for race. BUN/Creatinine Ratio 24.6 LAB CHEMISTRY METHOD 08/31/2024 1:17 PM [facility] Calcium 9.1 8.5 - 10.5 mg/dL LAB CHEMISTRY METHOD 08/31/2024 1:17 PM [facility] AST (SGOT) 14 10 - 42 unit/L LAB CHEMISTRY METHOD 08/31/2024 1:17 PM [facility] ALT (SGPT) 18 10 - 60 unit/L LAB CHEMISTRY METHOD 08/31/2024 1:17 PM [facility] Alkaline Phosphatase 70 42 - 121 unit/L LAB CHEMISTRY METHOD 08/31/2024 1:17 PM EDT [facility] Total Protein 6.6 6.0 - 8.0 g/dL LAB CHEMISTRY METHOD 08/31/2024 1:17 PM EDT [facility] Albumin 3.1(L) 3.2 - 5.0 g/dL LAB CHEMISTRY METHOD 08/31/2024 1:17 PM EDT [facility] Total Bilirubin 0.4 0.0 - 1.4 mg/dL LAB CHEMISTRY METHOD 08/31/2024 1:17 PM EDT [facility] Blood Venous blood specimen / Unknown 08/31/2024 5:18 AM EDT 08/31/2024 11:34 AM EDT [facility] LAB - 08/31/2024 1:17 PM EDT Short sample, interpret results with caution us Lincoln Crespo MD LAB BLOOD ORDERABLES Final Resu lt [facility] [address] [place] [address], [place] [phone] * (ABNORMAL) Complete blood count (08/31/2024 5:18 AM EDT) WBC 5.2 4.8 - 10.8 K/mcL LAB HEMETOLOGY METHOD 08/31/2024 1:43 PM EDT [facility] RBC 2.50(L) 3.80 - 4.80 M/mcL LAB HEMETOLOGY METHOD 08/31/2024 1:43 PM EDT [facility] Hemoglobin 8.6(L) 11.5 - 16.0 g/dL LAB HEMETOLOGY METHOD 08/31/2024 1:43 PM EDT [facility] Hematocrit 27.1(L) 35.0 - 47.0 % LAB HEMETOLOGY METHOD 08/31/2024 1:43 PM EDT [facility] MCV 106.7(H) 79.0 - 98.0 FL LAB HEMETOLOGY METHOD 08/31/2024 1:43 PM EDT [facility] MCH 33.9(H) 27.0 - 32.0 pcg LAB HEMETOLOGY METHOD 08/31/2024 1:43 PM EDT [facility] MCHC 31.7(L) 32.0 - 37.0 g/dL LAB HEMETOLOGY METHOD 08/31/2024 1:43 PM EDT [facility] RDW 19.2(H) 11.0 - 15.0 % LAB HEMETOLOGY METHOD 08/31/2024 1:43 PM EDT [facility] Platelets 223 130 - 400 K/mcL LAB HEMETOLOGY METHOD 08/31/2024 1:43 PM EDT [facility] MPV 9.6 7.0 - 11.0 FL LAB HEMETOLOGY METHOD 08/31/2024 1:43 PM EDT [facility] NRBC 0.0 <1.0 % LAB HEMETOLOGY METHOD 08/31/2024 1:43 PM EDT [facility] NRBC Absolute 0.00 <0.10 K/mcL LAB HEMETOLOGY METHOD 08/31/2024 1:43 PM EDT [facility] Blood Venous blood specimen / Unknown 08/31/2024 5:18 AM EDT 08/31/2024 11:31 AM EDT us Lincoln Crespo MD LAB BLOOD ORDERABLES Final Resu lt [facility] [address] [place] [address], documented in this encounter Visit Diagnoses Diagnosis Essential (primary) hypertension Unspecified essential hypertension Atherosclerotic heart disease of [place] coronary artery without angina pectoris Anemia, unspecified documented in this encounter Care Teams Hog Operator Relationship Specialty Start Date End Date John Avina DO [address] [place] [phone] PCP - General Internal Medicine 06/10/24 documented as of this encounter
--- OUTSIDE RECORDS SUMMARY | 2025-01-12 16:24 | XMS_ITS | Encounter Summary ---
Author Organization [employer] Address [address] [place] [address] Care Team Providers Care Rotary Shear Cutter Name Role Phone John Avina DO Primary Care Provider [phone] Encounter Details Date Type Department Care Team (Late st Contact Info) Description 08/22/2024 Lab Requisition [facility] - Main Lab [address] [facility] [place] [address] Lincoln Crespo MD [address] [place] [address] Essential (primary) hypertension; Atherosclerotic heart disease of [place] coronary artery without angina pectoris; Anemia, unspecified [...] Essential (primary) hypertension Atherosclerotic heart disease of [place] coronary artery without angina pectoris Anemia, unspecified COMPREHENSIVE METABOLIC PANEL Routine 08/24/2024 5:46 AM EDT Essential (primary) hypertension Atherosclerotic heart disease of [place] coronary artery without angina pectoris Anemia, unspecified documented in this encounter Results * (ABNORMAL) Comprehensive metabolic panel (08/24/2024 5:46 AM EDT) Sodium 144 133 - 145 mmol/L LAB CHEMISTRY METHOD 08/24/2024 9:15 AM EDT [facility] Potassium 4.0 3.5 - 5.5 mmol/L LAB CHEMISTRY METHOD 08/24/2024 9:15 AM [facility] Chloride 112(H) 96 - 110 mmol/L LAB CHEMISTRY METHOD 08/24/2024 9:15 AM [facility] CO2 23 21 - 32 mmol/L LAB CHEMISTRY METHOD 08/24/2024 9:15 AM [facility] Anion Gap 9 3 - 11 LAB CHEMISTRY METHOD 08/24/2024 9:15 AM [facility] Glucose 82 70 - 100 mg/dL LAB CHEMISTRY METHOD 08/24/2024 9:15 AM [facility] BUN 32(H) 5 - 25 mg/dL LAB CHEMISTRY METHOD 08/24/2024 9:15 AM [facility] Creatinine 1.88(H) 0.50 - 1.10 mg/dL LAB CHEMISTRY METHOD 08/24/2024 9:15 AM [facility] eGFR 27(L) >=60 mL/min/1. 73m2 LAB CHEMISTRY METHOD 08/24/2024 9:15 AM [facility] Comment:Calculation based on the Chronic Kidney Disease Epidemiology Collaboration (CKD-EPI) equation refit without adjustment for race. BUN/Creatinine Ratio 17.0 LAB CHEMISTRY METHOD 08/24/2024 9:15 AM [facility] Calcium 8.8 8.5 - 10.5 mg/dL LAB CHEMISTRY METHOD 08/24/2024 9:15 AM [facility] AST (SGOT) 13 10 - 42 unit/L LAB CHEMISTRY METHOD 08/24/2024 9:15 AM [facility] ALT (SGPT) 17 10 - 60 unit/L LAB CHEMISTRY METHOD 08/24/2024 9:15 AM [facility] Alkaline Phosphatase 69 42 - 121 unit/L LAB CHEMISTRY METHOD 08/24/2024 9:15 AM [facility] Total Protein 5.7(L) 6.0 - 8.0 g/dL LAB CHEMISTRY METHOD 08/24/2024 9:[address] [facility] Albumin 2.8(L) 3.2 - 5.0 g/dL LAB CHEMISTRY METHOD 08/24/2024 9:[address] [facility] Total Bilirubin 0.3 0.0 - 1.4 mg/dL LAB CHEMISTRY METHOD 08/24/2024 9:[address] [facility] Blood Venous blood specimen / Unknown Venipuncture / Unknown 08/24/2024 5:46 AM EDT 08/24/2024 8:26 AM EDT us Lincoln Crespo MD LAB BLOOD ORDERABLES Final Resu lt [facility] [address] [place] [address], [place] [phone] * (ABNORMAL) Complete blood count (08/24/2024 5:46 AM EDT) WBC 6.8 4.8 - 10.8 K/mcL LAB HEMETOLOGY METHOD 08/24/2024 8:45 AM [facility] RBC 2.50(L) 3.80 - 4.80 M/mcL LAB HEMETOLOGY METHOD 08/24/2024 8:45 AM [facility] Hemoglobin 8.6(L) 11.5 - 16.0 g/dL LAB HEMETOLOGY METHOD 08/24/2024 8:[address] [facility] Hematocrit 26.2(L) 35.0 - 47.0 % LAB HEMETOLOGY METHOD 08/24/2024 8:45 AM [facility] MCV 103.6(H) 79.0 - 98.0 FL LAB HEMETOLOGY METHOD 08/24/2024 8:[address] [facility] MCH 34.0(H) 27.0 - 32.0 pcg LAB HEMETOLOGY METHOD 08/24/2024 8:[address] [facility] MCHC 32.8 32.0 - 37.0 g/dL LAB HEMETOLOGY METHOD 08/24/2024 8:[address] [facility] RDW 18.7(H) 11.0 - 15.0 % LAB HEMETOLOGY METHOD 08/24/2024 8:[address] [facility] Platelets 192 130 - 400 K/mcL LAB HEMETOLOGY METHOD 08/24/2024 8:[address] [facility] MPV 9.3 7.0 - 11.0 FL LAB HEMETOLOGY METHOD 08/24/2024 8:[address] [facility] NRBC 0.0 <1.0 % LAB HEMETOLOGY METHOD 08/24/2024 8:[address] [facility] NRBC Absolute 0.00 <0.10 K/mcL LAB HEMETOLOGY METHOD 08/24/2024 8:[address] [facility] Blood Venous blood specimen / Unknown Venipuncture / Unknown 08/24/2024 5:46 AM EDT 08/24/2024 8:32 AM EDT us Lincoln Crespo MD LAB BLOOD ORDERABLES Final Resu lt [facility] [address] [place] [address], [place] [phone] documented in this encounter Visit Diagnoses Diagnosis Essential (primary) hypertension Unspecified essential hypertension Atherosclerotic heart disease of [place] coronary artery without angina pectoris Anemia, unspecified documented in this encounter Care Teams Rotary Shear Cutter Relationship Specialty Start Date End Date John Avina DO [address] [place] [phone] PCP - General Internal Medicine 06/10/24 documented as of this encounter
--- OUTSIDE RECORDS SUMMARY | 2025-01-12 16:24 | XMS_ITS | Encounter Summary ---
Author Organization [facility] Address [address] [place] [address] Care Team Providers Care Radio Dispatcher Name Role Phone John Avina DO Primary Care Provider [phone] Encounter Details Date Type Department Care Team (Late st Contact Info) Description 08/17/2024 Lab Requisition [facility] - Main Lab [address] [facility] [place] [address] Lincoln Crespo MD [address] [place] [address] Other ulcerative colitis with rectal [...] AM EDT) WBC 7.1 4.8 - 10.8 K/[facility] LAB HEMETOLOGY METHOD 08/18/2024 11:09 AM EDT [facility] RBC 2.80(L) 3.80 - 4.80 M/[facility] LAB HEMETOLOGY METHOD 08/18/2024 11:09 AM [facility] LAB Hemoglobin 9.2(L) 11.5 - 16.0 g/dL LAB HEMETOLOGY METHOD 08/18/2024 11:09 AM [facility] LAB Hematocrit 28.6(L) 35.0 - 47.0 % LAB HEMETOLOGY METHOD 08/18/2024 11:09 AM [facility] LAB MCV 103.6(H) 79.0 - 98.0 FL LAB HEMETOLOGY METHOD 08/18/2024 11:09 AM [facility] LAB MCH 33.3(H) 27.0 - 32.0 pcg LAB HEMETOLOGY METHOD 08/18/2024 11:09 AM [facility] LAB MCHC 32.2 32.0 - 37.0 g/dL LAB HEMETOLOGY METHOD 08/18/2024 11:09 AM [facility] LAB RDW 18.5(H) 11.0 - 15.0 % LAB HEMETOLOGY METHOD 08/18/2024 11:09 AM [facility] LAB Platelets 216 130 - 400 K/mcL LAB HEMETOLOGY METHOD 08/18/2024 11:09 AM [facility] LAB MPV 9.2 7.0 - 11.0 FL LAB HEMETOLOGY METHOD 08/18/2024 11:09 AM [facility] LAB NRBC 0.0 <1.0 % LAB HEMETOLOGY METHOD 08/18/2024 11:09 AM [facility] LAB NRBC Absolute 0.00 <0.10 K/mcL LAB HEMETOLOGY METHOD 08/18/2024 11:09 AM [facility] LAB Blood Venous blood specimen / Unknown Venipuncture / Unknown 08/18/2024 4:57 AM EDT 08/18/2024 10:57 AM EDT Lincoln Crespo MD LAB BLOOD ORDERABLES Final Resu lt [facility] HOSPITAL LAB [address] [place] [address], documented in this encounter Visit Diagnoses Diagnosis Other ulcerative colitis with rectal bleeding (CMS/HCC V24, CMS/HCC V28) Anemia in chronic kidney disease (CODE) documented in this encounter Care Teams Radio Dispatcher Relationship Specialty Start Date End Date John Avina DO [address] [place] [phone] PCP - General Internal Medicine 06/10/24 documented as of this encounter
--- OUTSIDE RECORDS SUMMARY | 2025-01-12 16:24 | XMS_ITS | Encounter Summary ---
Author Organization [employer] Address [id number] [place] [address] Care Team Providers Care Truck Hop Name Role Phone John Avina DO Primary Care Provider [phone] Encounter Details Date Type Department Care Team (Late st Contact Info) Description 08/12/2024 Lab Requisition [facility] - Main Lab [address] [facility] [place] [address] Lincoln Crespo MD [address] [place] [address] Essential (primary) hypertension; Atherosclerotic heart disease of [place] coronary artery without angina pectoris; Anemia, unspecified; [...] Essential (primary) hypertension Atherosclerotic heart disease of [place] coronary artery without angina pectoris Anemia, unspecified Chronic kidney disease, unspecified Hypothyroidism, unspecified Hyperlipidemia, unspecified COMPREHENSIVE METABOLIC PANEL Routine 08/12/2024 4:49 AM EDT Essential (primary) hypertension Atherosclerotic heart disease of [place] coronary artery without angina pectoris Anemia, unspecified Chronic kidney disease, unspecified Hypothyroidism, unspecified Hyperlipidemia, unspecified documented in this encounter Results * (ABNORMAL) Comprehensive metabolic panel (08/12/2024 4:49 AM EDT) Sodium 140 133 - 145 mmol/L LAB CHEMISTRY METHOD 08/12/2024 11:43 AM [facility] Potassium 4.4 3.5 - 5.5 mmol/L LAB CHEMISTRY METHOD 08/12/2024 11:43 AM [facility] Chloride 104 96 - 110 mmol/L LAB CHEMISTRY METHOD 08/12/2024 11:43 AM [facility] CO2 30 21 - 32 mmol/L LAB CHEMISTRY METHOD 08/12/2024 11:43 AM [facility] Anion Gap 6 3 - 11 LAB CHEMISTRY METHOD 08/12/2024 11:43 AM [facility] Glucose 81 70 - 100 mg/dL LAB CHEMISTRY METHOD 08/12/2024 11:43 AM [facility] BUN 35(H) 5 - 25 mg/dL LAB CHEMISTRY METHOD 08/12/2024 11:43 AM [facility] Creatinine 1.81(H) 0.50 - 1.10 mg/dL LAB CHEMISTRY METHOD 08/12/2024 11:43 AM [facility] eGFR 29(L) >=60 mL/min/1. 73m2 LAB CHEMISTRY METHOD 08/12/2024 11:43 AM [facility] LAB Comment:Calculation based on the Chronic Kidney Disease Epidemiology Collaboration (CKD-EPI) equation refit without adjustment for race. BUN/Creatinine Ratio 19.3 LAB CHEMISTRY METHOD 08/12/2024 11:43 AM [facility] Calcium 8.3(L) 8.5 - 10.5 mg/dL LAB CHEMISTRY METHOD 08/12/2024 11:43 AM [facility] AST (SGOT) 7(L) 10 - 42 unit/L LAB CHEMISTRY METHOD 08/12/2024 11:43 AM [facility] ALT (SGPT) 7(L) 10 - 60 unit/L LAB CHEMISTRY METHOD 08/12/2024 11:43 AM EDT [facility] Alkaline Phosphatase 65 42 - 121 unit/L LAB CHEMISTRY METHOD 08/12/2024 11:43 AM T [facility] Total Protein 5.5(L) 6.0 - 8.0 g/dL LAB CHEMISTRY METHOD 08/12/2024 11:43 AM [facility] Albumin 2.3(L) 3.2 - 5.0 g/dL LAB CHEMISTRY METHOD 08/12/2024 11:43 AM T [facility] Total Bilirubin 0.5 0.0 - 1.4 mg/dL LAB CHEMISTRY METHOD 08/12/2024 11:43 AM [facility] Blood Venous blood specimen / Unknown Venipuncture / Unknown 08/12/2024 4:49 AM EDT 08/12/2024 10:25 AM EDT Lincoln Crespo MD LAB BLOOD ORDERABLES Final Resu lt [facility] [address] [place] [address], * (ABNORMAL) Complete blood count (08/12/2024 4:49 AM EDT) WBC 6.8 4.8 - 10.8 K/mcL LAB HEMETOLOGY METHOD 08/12/2024 11:01 AM [facility] RBC 2.20(L) 3.80 - 4.80 M/mcL LAB HEMETOLOGY METHOD 08/12/2024 11:01 AM [facility] Hemoglobin 7.4(L) 11.5 - 16.0 g/dL LAB HEMETOLOGY METHOD 08/12/2024 11:01 AM [facility] Hematocrit 23.3(L) 35.0 - 47.0 % LAB HEMETOLOGY METHOD 08/12/2024 11:01 AM EDT [facility] MCV 108.4(H) 79.0 - 98.0 FL LAB HEMETOLOGY METHOD 08/12/2024 11:01 AM EDT [facility] MCH 34.4(H) 27.0 - 32.0 pcg LAB HEMETOLOGY [facility]24 [facility] MCHC 31.8(L) 32.0 - 37.0 g/dL LAB HEMETOLOGY METHOD 08/12/2024 11:01 AM EDT [facility] RDW 17.7(H) 11.0 - 15.0 % LAB HEMETOLOGY METHOD 08[facility]12[facility]24 [facility] Platelets 203 130 - 400 K/mcL LAB HEMETOLOGY METHOD 08/12[facility]2024 [facility] MPV 9.8 7.0 - 11.0 FL LAB HEMETOLOGY METHOD 08/12[facility]2024 [facility] NRBC 0.0 <1.0 % LAB HEMETOLOGY METHOD 08/12/2024 [facility] NRBC Absolute 0.00 <0.10 K/mcL LAB HEMETOLOGY METHOD 08/12/2024 11:01 AM [facility] Blood Venous blood specimen / Unknown Venipuncture / Unknown 08/12/2024 4:49 AM EDT 08/12/2024 10:25 AM EDT us Lincoln Crespo MD LAB BLOOD ORDERABLES Final Resu lt [facility] [address] [place] [address], [place] [phone] documented in this encounter Visit Diagnoses Diagnosis Essential (primary) hypertension Unspecified essential hypertension Atherosclerotic heart disease of [place] coronary artery without angina pectoris Anemia, unspecified Chronic kidney disease, unspecified Hypothyroidism, unspecified Hyperlipidemia, unspecified documented in this encounter Care Teams Truck Hop Relationship Specialty Start Date End Date John Avina DO [address] [place] [phone] PCP - General Internal Medicine 06/10/24 documented as of this encounter
--- OUTSIDE RECORDS SUMMARY | 2025-01-12 16:24 | XMS_ITS | Encounter Summary ---
Author Organization [employer] Address [address] [place] [address] Care Team Providers Care Manager Gaming Name Role Phone John Avina DO Primary Care Provider [phone] Encounter Details Date Type Department Care Team (Late st Contact Info) Description 08/14/2024 Lab Requisition [facility] - Main Lab 299 [facility] [place] [address] Lincoln Crespo MD [address] [place] [address] Essential (primary) hypertension; Atherosclerotic heart disease of [place] coronary artery without angina pectoris; Anemia, unspecified [...] Essential (primary) hypertension Atherosclerotic heart disease of [place] coronary artery without angina pectoris Anemia, unspecified COMPREHENSIVE METABOLIC PANEL Routine 08/17/2024 5:41 AM EDT Essential (primary) hypertension Atherosclerotic heart disease of [place] coronary artery without angina pectoris Anemia, unspecified documented in this encounter Results * (ABNORMAL) Comprehensive metabolic panel (08/17/2024 5:41 AM EDT) Sodium 141 133 - 145 mmol/L LAB CHEMISTRY METHOD 08/17/2024 1:[address] [facility] Potassium 3.8 3.5 - 5.5 mmol/L LAB CHEMISTRY METHOD 08/17/2024 1:27 PM [facility] LAB Chloride 108 96 - 110 mmol/L LAB CHEMISTRY METHOD 08/17/2024 1:27 PM [facility] LAB CO2 23 21 - 32 mmol/L LAB CHEMISTRY METHOD 08/17/2024 1:27 PM [facility] LAB Anion Gap 10 3 - 11 LAB CHEMISTRY METHOD 08/17/2024 1:27 PM [facility] LAB Glucose 69(L) 70 - 100 mg/dL LAB CHEMISTRY METHOD 08/17/2024 1:27 PM [facility] LAB BUN 34(H) 5 - 25 mg/dL LAB CHEMISTRY METHOD 08/17/2024 1:27 PM [facility] LAB Creatinine 1.53(H) 0.50 - 1.10 mg/dL LAB CHEMISTRY METHOD 08/17/2024 1:27 PM [facility] LAB eGFR 35(L) >=60 mL/min/1. 73m2 LAB CHEMISTRY METHOD 08/17/2024 1:27 PM [facility] LAB Comment:Calculation based on the Chronic Kidney Disease Epidemiology Collaboration (CKD-EPI) equation refit without adjustment for race. BUN/Creatinine Ratio 22.2 LAB CHEMISTRY METHOD 08/17/2024 1:27 PM [facility] LAB Calcium 8.7 8.5 - 10.5 mg/dL LAB CHEMISTRY METHOD 08/17/2024 1:27 PM [facility] LAB AST (SGOT) 9(L) 10 - 42 unit/L LAB CHEMISTRY METHOD 08/17/2024 1:27 PM [facility] LAB ALT (SGPT) 8(L) 10 - 60 unit/L LAB CHEMISTRY METHOD 08/17/2024 1:27 PM [facility] LAB Alkaline Phosphatase 67 42 - 121 unit/L LAB CHEMISTRY METHOD 08/17/2024 1:27 PM [facility] LAB Total Protein 5.5(L) 6.0 - 8.0 g/dL LAB CHEMISTRY METHOD 08/17/2024 1:27 PM EDT [facility] LAB Albumin 2.4(L) 3.2 - 5.0 g/dL LAB CHEMISTRY METHOD 08/17/2024 1:27 PM EDT [facility] LAB Total Bilirubin 0.4 0.0 - 1.4 mg/dL LAB CHEMISTRY METHOD 08/17/2024 1:27 PM EDT [facility] LAB Blood Venous blood specimen / Unknown Venipuncture / Unknown 08/17/2024 5:41 AM EDT 08/17/2024 10:15 AM EDT us Lincoln Crespo MD LAB BLOOD ORDERABLES Final Resu lt [facility] LAB [address] [place] [address], * (ABNORMAL) Complete blood count (08/17/2024 5:41 AM EDT) WBC 7.2 4.8 - 10.8 K/mcL LAB HEMETOLOGY METHOD 08/17/2024 11:28 AM [facility] LAB RBC 2.90(L) 3.80 - 4.80 M/mcL LAB HEMETOLOGY METHOD 08/17/2024 11:28 AM EDT [facility] LAB Hemoglobin 9.6(L) 11.5 - 16.0 g/dL LAB HEMETOLOGY METHOD 08/17/2024 11:28 AM EDT [facility] LAB Hematocrit 29.9(L) 35.0 - 47.0 % LAB HEMETOLOGY METHOD [facility] MCV 103.5(H) 79.0 - 98.0 FL LAB HEMETOLOGY METHOD 08/17/2024 11:28 AM EDT [facility] LAB MCH 33.2(H) 27.0 - 32.0 pcg LAB HEMETOLOGY METHOD 08/17/2024 11:28 AM [facility] LAB MCHC 32.1 32.0 - 37.0 g/dL LAB HEMETOLOGY METHOD 08/17/2024 11:28 AM [facility] LAB RDW 18.2(H) 11.0 - 15.0 % LAB HEMETOLOGY METHOD 08/17/2024 11:28 AM [facility] LAB Platelets 215 130 - 400 K/mcL LAB HEMETOLOGY METHOD 08/17/2024 11:28 AM [facility] LAB MPV 9.2 7.0 - 11.0 FL LAB HEMETOLOGY METHOD 08/17/2024 11:28 AM [facility] LAB NRBC 0.0 <1.0 % LAB HEMETOLOGY METHOD 08/17/2024 11:28 AM [facility] LAB NRBC Absolute 0.00 <0.10 K/mcL LAB HEMETOLOGY METHOD 08/17/2024 11:28 AM [facility] LAB Blood Venous blood specimen / Unknown Venipuncture / Unknown 08/17/2024 5:41 AM EDT 08/17/2024 10:15 AM EDT us Lincoln Crespo MD LAB BLOOD ORDERABLES Final Resu lt [facility] LAB [address] [place] [address], documented in this encounter Visit Diagnoses Diagnosis Essential (primary) hypertension Unspecified essential hypertension Atherosclerotic heart disease of [place] coronary artery without angina pectoris Anemia, unspecified documented in this encounter Care Teams Manager Gaming Relationship Specialty Start Date End Date John Avina DO [address] [place] [phone] PCP - General Internal Medicine 06/10/24 documented as of this encounter
--- OUTSIDE RECORDS SUMMARY | 2025-01-12 16:24 | XMS_ITS | Clinical Summary ---
Author Organization [address] Address [address] [place] [address] Phone Care Team Providers Care Director Of Design Name Role Phone FabriceJohn solares Primary Care Provider [phone] Social History Tobacco Use Types Packs/Day Years [...] Essential (primary) hypertension Atherosclerotic heart disease of [place] coronary artery without angina pectoris Anemia, unspecified Chronic kidney disease, unspecified from Last 3 Months or Most Recently Relevant to Health Maintenance Results * (ABNORMAL) Basic metabolic panel (09/17/2024 8:40 AM EDT) Sodium 141 133 - 145 mmol/L LAB CHEMISTRY METHOD 09/17/2024 11:[address] [facility] LAB Potassium 4.0 3.5 - 5.5 mmol/L LAB CHEMISTRY METHOD 09/17/2024 11:[address] [facility] LAB Chloride 109 96 - 110 mmol/L LAB CHEMISTRY METHOD 09/17/2024 11:[address] [facility] LAB CO2 24 21 - 32 mmol/L LAB CHEMISTRY METHOD 09/17/2024 11:[address] [facility] LAB Anion Gap 8 3 - 11 LAB CHEMISTRY METHOD 09/17/2024 11:[address] [facility] LAB Glucose 103(H) 70 - 100 mg/dL LAB CHEMISTRY METHOD 09/17/2024 11:11 AM EDT [facility] BUN 49(H) 5 - 25 mg/dL LAB CHEMISTRY METHOD 09/17/2024 11:11 AM EDT [facility] LAB Creatinine 1.74(H) 0.50 - 1.10 mg/dL LAB CHEMISTRY METHOD 09/17/2024 11:11 AM EDT [facility] LAB eGFR 30(L) >=60 mL/min/1. 73m2 LAB CHEMISTRY METHOD 09/17/2024 11:11 AM EDT [facility] LAB Comment:Calculation based on the Chronic Kidney Disease Epidemiology Collaboration (CKD-EPI) equation refit without adjustment for race. BUN/Creatinine Ratio 28.2 LAB CHEMISTRY METHOD 09/17/2024 11:11 AM EDT [facility] LAB Calcium 9.3 8.5 - 10.5 mg/dL LAB CHEMISTRY METHOD 09/17/2024 11:11 AM EDT [facility] LAB Blood Venous blood specimen / Unknown Venipuncture / Unknown 09/17/2024 8:40 AM EDT 09/17/2024 10:05 AM EDT Lincoln Crespo MD LAB BLOOD ORDERABLES Final Resu lt [facility] LAB [address] [place] [address], from Last 3 Months or Most Recently Relevant to Health Maintenance Insurance MEDICARE [facility] MEDICARE Care Teams Director Of Design Relationship Specialty Start Date End Date John Avina DO [address] [place] [phone] PCP - General Internal Medicine 06/10/24
--- OUTSIDE RECORDS SUMMARY | 2025-01-12 16:24 | XMS_ITS | Encounter Summary ---
Author Organization [employer] [facility] Address [address] [place] [address] Care Team Providers Care Gas Welder Apprentice Name Role Phone John Avina DO Primary Care Provider [phone] Encounter Details Date Type Department Care Team (Late st Contact Info) Description 09/02/2024 Lab Requisition [facility] - Main Lab 299 [facility] [place] [address] Lincoln Crespo MD [address] [place] [address] Essential (primary) hypertension; Atherosclerotic heart disease of [place] coronary artery without angina pectoris; Anemia, unspecified; [...] Essential (primary) hypertension Atherosclerotic heart disease of [place] coronary artery without angina pectoris Anemia, unspecified Chronic kidney disease, unspecified BASIC METABOLIC PANEL Routine 09/03/2024 7:35 AM EDT Essential (primary) hypertension Atherosclerotic heart disease of [place] coronary artery without angina pectoris Anemia, unspecified Chronic kidney disease, unspecified documented in this encounter Results * (ABNORMAL) Basic metabolic panel (09/03/2024 7:35 AM EDT) Sodium 142 133 - 145 mmol/L LAB CHEMISTRY METHOD 09/03/2024 9:20 AM [facility] LAB Potassium 4.0 3.5 - 5.5 mmol/L LAB CHEMISTRY METHOD 09/03/2024 9:20 AM [facility] LAB Chloride 112(H) 96 - 110 mmol/L LAB CHEMISTRY METHOD 09/03/2024 9:20 AM [facility] LAB CO2 22 21 - 32 mmol/L LAB CHEMISTRY METHOD 09/03/2024 9:20 AM [facility] LAB Anion Gap 8 3 - 11 LAB CHEMISTRY METHOD 09/03/2024 9:20 AM [facility] LAB Glucose 90 70 - 100 mg/dL LAB CHEMISTRY METHOD 09/03/2024 9:20 AM [facility] LAB BUN 48(H) 5 - 25 mg/dL LAB CHEMISTRY METHOD 09/03/2024 9:20 AM [facility] LAB Creatinine 1.72(H) 0.50 - 1.10 mg/dL LAB CHEMISTRY METHOD 09/03/2024 9:20 AM [facility] LAB eGFR 30(L) >=60 mL/min/1. 73m2 LAB CHEMISTRY METHOD 09/03/2024 9:20 AM [facility] LAB Comment:Calculation based on the Chronic Kidney Disease Epidemiology Collaboration (CKD-EPI) equation refit without adjustment for race. BUN/Creatinine Ratio 27.9 LAB CHEMISTRY METHOD 09/03/2024 9:20 AM [facility] LAB Calcium 9.3 8.5 - 10.5 mg/dL LAB CHEMISTRY METHOD 09/03/2024 9:20 AM [facility] LAB Blood Venous blood specimen / Unknown Venipuncture / Unknown 09/03/2024 7:35 AM EDT 09/03/2024 8:28 AM EDT us Lincoln Crespo MD LAB BLOOD ORDERABLES Final Resu lt [facility] LAB [address] [place] [address], * (ABNORMAL) Complete blood count (09/03/2024 7:35 AM EDT) [facility] Signature WBC 4.5(L) 4.8 - 10.8 K/mcL LAB HEMETOLOGY METHOD 09/03/2024 8:46 AM EDT [facility] LAB RBC 2.60(L) 3.80 - 4.80 M/mcL LAB HEMETOLOGY METHOD 09/03/2024 8:46 AM EDT [facility] LAB Hemoglobin 8.8(L) 11.5 - 16.0 g/dL LAB HEMETOLOGY METHOD 09/03/2024 8:46 AM [facility] LAB Hematocrit 27.0(L) 35.0 - 47.0 % LAB HEMETOLOGY METHOD [facility] MCV 105.1(H) 79.0 - 98.0 FL LAB HEMETOLOGY METHOD [facility] MCH 34.2(H) 27.0 - 32.0 pcg LAB HEMETOLOGY METHOD 09/03/2024 8:46 AM [facility] LAB MCHC 32.6 32.0 - 37.0 g/dL LAB HEMETOLOGY METHOD 09/03[facility]2024 [facility] RDW 19.1(H) 11.0 - 15.0 % LAB HEMETOLOGY METHOD 09/03/2024 8:46 AM EDT [facility] Platelets 200 130 - 400 K/mcL LAB HEMETOLOGY METHOD 09/03/2024 8:46 AM EDT [facility] LAB MPV 9.2 7.0 - 11.0 FL LAB HEMETOLOGY METHOD 09/03/2024 8:46 AM EDT [facility] NRBC 0.0 <1.0 % LAB HEMETOLOGY METHOD 09/03/2024 8:46 AM EDT [facility] LAB NRBC Absolute 0.00 <0.10 K/mcL LAB HEMETOLOGY METHOD 09/03/2024 8:46 AM EDT [facility] LAB Blood Venous blood specimen / Unknown Venipuncture / Unknown 09/03/2024 7:35 AM EDT 09/03/2024 8:28 AM EDT us Lincoln Crespo MD LAB BLOOD ORDERABLES Final Resu lt [facility] LAB [address] [place] [address], documented in this encounter Visit Diagnoses Diagnosis Essential (primary) hypertension Unspecified essential hypertension Atherosclerotic heart disease of [place] coronary artery without angina pectoris Anemia, unspecified Chronic kidney disease, unspecified documented in this encounter Care Teams Gas Welder Apprentice Relationship Specialty Start Date End Date John Avina DO [address] [place] [phone] PCP - General Internal Medicine 06/10/24 documented as of this encounter
--- OUTSIDE RECORDS SUMMARY | 2025-01-12 16:24 | XMS_ITS | Encounter Summary ---
Author Organization [employer] [facility] Address [address] [place] [address] Care Team Providers Care Principal Biostatistician Name Role Phone John Avina DO Primary Care Provider [phone] Encounter Details Date Type Department Care Team (Late st Contact Info) Description 08/19/2024 Lab Requisition [facility] - Main Lab 299 [facility] [place] [address] Lincoln Crespo MD [address] [place] [address] Essential (primary) hypertension; Atherosclerotic heart disease of [place] coronary artery without angina pectoris; Anemia, unspecified; [...] Essential (primary) hypertension Atherosclerotic heart disease of [place] coronary artery without angina pectoris Anemia, unspecified Chronic kidney disease, unspecified BASIC METABOLIC PANEL Routine 08/20/2024 6:56 AM EDT Essential (primary) hypertension Atherosclerotic heart disease of [place] coronary artery without angina pectoris Anemia, unspecified Chronic kidney disease, unspecified documented in this encounter Results * (ABNORMAL) Basic metabolic panel (08/20/2024 6:56 AM EDT) Sodium 140 133 - 145 mmol/L LAB CHEMISTRY METHOD 08/20/2024 10:17 AM [facility] LAB Potassium 4.1 3.5 - 5.5 mmol/L LAB CHEMISTRY METHOD 08/20/2024 10:17 AM [facility] LAB Chloride 107 96 - 110 mmol/L LAB CHEMISTRY METHOD 08/20/2024 10:17 AM [facility] LAB CO2 25 21 - 32 mmol/L LAB CHEMISTRY METHOD 08/20/2024 10:17 AM [facility] LAB Anion Gap 8 3 - 11 LAB CHEMISTRY METHOD 08/20/2024 10:17 AM [facility] LAB Glucose 100 70 - 100 mg/dL LAB CHEMISTRY METHOD 08/20/2024 10:17 AM [facility] LAB BUN 31(H) 5 - 25 mg/dL LAB CHEMISTRY METHOD 08/20/2024 10:17 AM [facility] LAB Creatinine 1.63(H) 0.50 - 1.10 mg/dL LAB CHEMISTRY METHOD 08/20/2024 10:17 AM [facility] LAB eGFR 32(L) >=60 mL/min/1. 73m2 LAB CHEMISTRY METHOD 08/20/2024 10:17 AM [facility] LAB Comment:Calculation based on the Chronic Kidney Disease Epidemiology Collaboration (CKD-EPI) equation refit without adjustment for race. BUN/Creatinine Ratio 19.0 LAB CHEMISTRY METHOD 08/20/2024 10:17 AM [facility] LAB Calcium 9.2 8.5 - 10.5 mg/dL LAB CHEMISTRY METHOD 08/20/2024 10:17 AM [facility] LAB Blood Venous blood specimen / Unknown Venipuncture / Unknown 08/20/2024 6:56 AM EDT 08/20/2024 9:28 AM EDT us Lincoln Crespo MD LAB BLOOD ORDERABLES Final Resu lt [facility] LAB [address] [place] [address], * (ABNORMAL) Complete blood count (08/20/2024 6:56 AM EDT) [facility] WBC 8.6 4.8 - 10.8 K/mcL LAB HEMETOLOGY METHOD 08/20/2024 9:58 AM [facility] LAB RBC 3.30(L) 3.80 - 4.80 M/mcL LAB HEMETOLOGY METHOD 08/20/2024 9[facility] Hemoglobin 10.9(L) 11.5 - 16.0 g/dL LAB HEMETOLOGY METHOD 08/20/2024 9:58 AM [facility] LAB Hematocrit 34.1(L) 35.0 - 47.0 % LAB HEMETOLOGY METHOD 08/20/2024 9:58 AM [facility] LAB MCV 102.1(H) 79.0 - 98.0 FL LAB HEMETOLOGY METHOD 08/20/2024 9:58 AM [facility] LAB MCH 32.6(H) 27.0 - 32.0 pcg LAB HEMETOLOGY METHOD 08/20/2024 9:58 AM [facility] LAB MCHC 32.0 32.0 - 37.0 g/dL LAB HEMETOLOGY METHOD 08/20/2024 9:58 AM [facility] LAB RDW 18.5(H) 11.0 - 15.0 % LAB HEMETOLOGY METHOD 08/20/2024 9:58 AM [facility] LAB Platelets 264 130 - 400 K/mcL LAB HEMETOLOGY METHOD 08/20/2024 9:58 AM [facility] LAB MPV 9.0 7.0 - 11.0 FL LAB HEMETOLOGY METHOD 08/20/2024 9:58 AM [facility] LAB NRBC 0.0 <1.0 % LAB HEMETOLOGY METHOD 08/20/2024 9:58 AM EDT [facility] LAB NRBC Absolute 0.00 <0.10 K/mcL LAB HEMETOLOGY METHOD 08/20/2024 9:58 AM EDT [facility] LAB Blood Venous blood specimen / Unknown Venipuncture / Unknown 08/20/2024 6:56 AM EDT 08/20/2024 9:29 AM EDT us Lincoln Crespo MD LAB BLOOD ORDERABLES Final Resu lt [facility] LAB [address] [place] [address], documented in this encounter Visit Diagnoses Diagnosis Essential (primary) hypertension Unspecified essential hypertension Atherosclerotic heart disease of [place] coronary artery without angina pectoris Anemia, unspecified Chronic kidney disease, unspecified documented in this encounter Care Teams Principal Biostatistician Relationship Specialty Start Date End Date John Avina DO [address] [place] [phone] PCP - General Internal Medicine 06/10/24 documented as of this encounter
--- OUTSIDE RECORDS SUMMARY | 2025-01-12 16:24 | XMS_ITS | Encounter Summary ---
Author Organization [facility] Address [address] [place] [address] Care Team Providers Care Mimeograph Operator Name Role Phone John Avina DO Primary Care Provider [phone] Encounter Details Date Type Department Care Team (Late st Contact Info) Description 08/15/2024 Lab Requisition [facility] - Main Lab 299 [facility] [place] [address] Lincoln Crespo MD [address] [place] [address] Other ulcerative colitis with rectal [...] AM EDT) WBC 6.7 4.8 - 10.8 K/[facility] LAB HEMETOLOGY METHOD 08/15/2024 11:[address] [facility] RBC 3.10(L) 3.80 - 4.80 M/[facility] LAB HEMETOLOGY METHOD 08/15/2024 11:29 AM [facility] LAB Hemoglobin 10.4(L) 11.5 - 16.0 g/dL LAB HEMETOLOGY METHOD 08/15/2024 11:29 AM [facility] LAB Hematocrit 31.4(L) 35.0 - 47.0 % LAB HEMETOLOGY METHOD 08/15/2024 11:29 AM [facility] LAB MCV 100.6(H) 79.0 - 98.0 FL LAB HEMETOLOGY METHOD 08/15/2024 11:29 AM [facility] LAB MCH 33.3(H) 27.0 - 32.0 pcg LAB HEMETOLOGY METHOD 08/15/2024 11:29 AM [facility] LAB MCHC 33.1 32.0 - 37.0 g/dL LAB HEMETOLOGY METHOD 08/15/2024 11:29 AM [facility] LAB RDW 18.6(H) 11.0 - 15.0 % LAB HEMETOLOGY METHOD 08/15/2024 11:29 AM [facility] LAB Platelets 228 130 - 400 K/mcL LAB HEMETOLOGY METHOD 08/15/2024 11:29 AM [facility] LAB MPV 9.4 7.0 - 11.0 FL LAB HEMETOLOGY METHOD 08/15/2024 11:29 AM [facility] LAB NRBC 0.0 <1.0 % LAB HEMETOLOGY METHOD 08/15/2024 11:29 AM [facility] LAB NRBC Absolute 0.00 <0.10 K/mcL LAB HEMETOLOGY METHOD 08/15/2024 11:29 AM [facility] LAB Blood Venous blood specimen / Unknown Venipuncture / Unknown 08/15/2024 9:21 AM EDT 08/15/2024 10:30 AM EDT Lincoln Crespo MD LAB BLOOD ORDERABLES Final Resu lt [facility] LAB [address] [place] [address], documented in this encounter Visit Diagnoses Diagnosis Other ulcerative colitis with rectal bleeding (CMS/HCC V24, CMS/HCC V28) Anemia in chronic kidney disease (CODE) documented in this encounter Care Teams Mimeograph Operator Relationship Specialty Start Date End Date John Avina DO [address] [place] [phone] PCP - General Internal Medicine 06/10/24 documented as of this encounter
--- OUTSIDE RECORDS SUMMARY | 2025-01-12 16:24 | XMS_ITS | Encounter Summary ---
Author Organization [facility] Address [address] [place] [address] Care Team Providers Care Working Foreman Name Role Phone John Avina DO Primary Care Provider Encounter Details Date Type Department Care Team (Late st Contact Info) Description 08/16/2024 Lab Requisition [facility] - Main Lab 299 [facility] [place] [address] Lincoln Crespo MD [address] [place] [address] Other ulcerative colitis with rectal [...] AM EDT) WBC 7.2 4.8 - 10.8 K/[facility] LAB HEMETOLOGY METHOD 08/16/2024 10:41 AM EDT [facility] ([facility] LAB RBC 2.90(L) 3.80 - 4.80 M/[facility] LAB HEMETOLOGY METHOD 08/16/2024 10:41 AM [facility] LAB Hemoglobin 9.7(L) 11.5 - 16.0 g/dL LAB HEMETOLOGY METHOD 08/16/2024 10:41 AM [facility] LAB Hematocrit 29.9(L) 35.0 - 47.0 % LAB HEMETOLOGY METHOD 08/16/2024 10:41 AM [facility] LAB MCV 101.7(H) 79.0 - 98.0 FL LAB HEMETOLOGY METHOD 08/16/2024 10:41 AM [facility] LAB MCH 33.0(H) 27.0 - 32.0 pcg LAB HEMETOLOGY METHOD 08/16/2024 10:41 AM [facility] LAB MCHC 32.4 32.0 - 37.0 g/dL LAB HEMETOLOGY METHOD 08/16/2024 10:41 AM [facility] LAB RDW 18.1(H) 11.0 - 15.0 % LAB HEMETOLOGY METHOD 08/16/2024 10:41 AM [facility] LAB Platelets 246 130 - 400 K/mcL LAB HEMETOLOGY METHOD 08/16/2024 10:41 AM [facility] LAB MPV 9.2 7.0 - 11.0 FL LAB HEMETOLOGY METHOD 08/16/2024 10:41 AM [facility] LAB NRBC 0.0 <1.0 % LAB HEMETOLOGY METHOD 08/16/2024 10:41 AM [facility] LAB NRBC Absolute 0.00 <0.10 K/mcL LAB HEMETOLOGY METHOD 08/16/2024 10:41 AM [facility] LAB Blood Venous blood specimen / Unknown Venipuncture / Unknown 08/16/2024 8:48 AM EDT 08/16/2024 10:02 AM EDT Lincoln Crespo MD LAB BLOOD ORDERABLES Final Resu lt [facility] LAB [address] [place] [address], documented in this encounter Visit Diagnoses Diagnosis Other ulcerative colitis with rectal bleeding (CMS/HCC V24, CMS/HCC V28) Anemia in chronic kidney disease (CODE) documented in this encounter Care Teams Working Foreman Relationship Specialty Start Date End Date John Avina DO [address] [place] [phone] PCP - General Internal Medicine 06/10/24 documented as of this encounter
--- OUTSIDE RECORDS SUMMARY | 2025-01-12 16:24 | XMS_ITS | Encounter Summary ---
Author Organization [facility] Address [address] [place] [address] Care Team Providers Care Finished Carpet Inspector Name Role Phone John Avina DO Primary Care Provider [phone] Encounter Details Date Type Department Care Team (Late st Contact Info) Description 06/10/2024 Lab Requisition [facility] - Main Lab [address] [facility] [place] [address] Arianna Iraheta PA [address] [place], [place] [id number] Dysuria Social History Tobacco Use Types Packs/Day [...] ssp pneumoniae(A) RIC 06/12/2024 11:[address] [facility] Comment: This is an edited [...] MICROBIOLOGY - GENERAL ORD ERABLES Final Result [facility] LAB [address] [place] [address], documented in this encounter Visit Diagnoses Diagnosis Dysuria documented in this encounter Care Teams Finished Carpet Inspector Relationship Specialty Start Date End Date John Avina DO [address] [place] [phone] PCP - General Internal Medicine 06/10/24 documented as of this encounter
--- OUTSIDE RECORDS SUMMARY | 2025-01-12 16:24 | XMS_ITS | Clinical Summary ---
Author Organization [facility] Address [address] [place] [address] Phone Care Team Providers Care Transistor Tester Name Role Phone FabriceJohn solares Primary Care [...] Visit [facility] [address] [place] [address] Mejia Soler [...] Visit [facility] [address] [place] [address] Mejia Soler MD [address] [facility] [address] [place] [address] Health Maintenance Due Date Last [...] age to complete this topic Insurance Medicare [facility] Medicare [facility] Care Teams Transistor Tester Relationship Specialty Start Date End Date John Avina DO [address] [place] [address] PCP - General Internal Medicine 10/23/23
--- OUTSIDE RECORDS SUMMARY | 2025-01-12 16:25 | XMS_ITS | Encounter Summary ---
Author Organization [facility] Address [address] [place] [address] Care Team Providers Care A Class Lineman Name Role Phone John Avina DO Primary Care Provider [phone] Encounter Details Date Type Department Care Team (Late st Contact Info) Description 09/14/2024 Lab Requisition [facility] - Main Lab [address] [facility] [place] [address] Lincoln Crespo MD [address] [place] [address] Essential (primary) hypertension; Atherosclerotic heart disease of [place] coronary artery without angina pectoris; Anemia, unspecified [...] Essential (primary) hypertension Atherosclerotic heart disease of [place] coronary artery without angina pectoris Anemia, unspecified COMPREHENSIVE METABOLIC PANEL Routine 09/15/2024 7:05 AM EDT Essential (primary) hypertension Atherosclerotic heart disease of [place] coronary artery without angina pectoris Anemia, unspecified documented in this encounter Results * (ABNORMAL) Complete blood count (09/15/2024 7:07 AM EDT) WBC 5.1 4.8 - 10.8 K/mcL LAB HEMETOLOGY METHOD 09/15/2024 12:07 PM EDT [facility] RBC 2.30(L) 3.80 - 4.80 M/mcL LAB HEMETOLOGY METHOD 09/15/2024 12:07 PM [facility] Hemoglobin 8.0(L) 11.5 - 16.0 g/dL LAB HEMETOLOGY METHOD 09/15/2024 12:07 PM [facility] Hematocrit 24.4(L) 35.0 - 47.0 % LAB HEMETOLOGY METHOD 09/15/2024 12:07 PM [facility] MCV 107.0(H) 79.0 - 98.0 FL LAB HEMETOLOGY METHOD 09/15/2024 12:07 PM [facility] MCH 35.1(H) 27.0 - 32.0 pcg LAB HEMETOLOGY METHOD 09/15/2024 12:07 PM [facility] MCHC 32.8 32.0 - 37.0 g/dL LAB HEMETOLOGY METHOD 09/15/2024 12:07 PM [facility] RDW 19.0(H) 11.0 - 15.0 % LAB HEMETOLOGY METHOD 09/15/2024 12:07 PM [facility] Platelets 141 130 - 400 K/mcL LAB HEMETOLOGY METHOD 09/15/2024 12:07 PM [facility] MPV 9.2 7.0 - 11.0 FL LAB HEMETOLOGY METHOD 09/15/2024 12:07 PM [facility] NRBC 0.0 <1.0 % LAB HEMETOLOGY METHOD 09/15/2024 12:07 PM [facility] NRBC Absolute 0.00 <0.10 K/mcL LAB HEMETOLOGY METHOD 09/15/2024 12:07 PM [facility] Blood Venous blood specimen / Unknown Venipuncture / Unknown 09/15/2024 7:07 AM EDT 09/15/2024 10:49 AM EDT us Lincoln Crespo MD LAB BLOOD ORDERABLES Final Resu lt [facility] [address] [place] [address], [place] [phone] * (ABNORMAL) Comprehensive metabolic panel (09/15/2024 7:05 AM EDT) Sodium 143 133 - 145 mmol/L LAB CHEMISTRY METHOD 09/15/2024 12:43 PM [facility] Potassium 3.6 3.5 - 5.5 mmol/L LAB CHEMISTRY METHOD 09/15/2024 12:43 PM [facility] Chloride 110 96 - 110 mmol/L LAB CHEMISTRY METHOD 09/15/2024 12:43 PM [facility] CO2 22 21 - 32 mmol/L LAB CHEMISTRY METHOD 09/15/2024 12:43 PM [facility] Anion Gap 11 3 - 11 LAB CHEMISTRY METHOD 09/15/2024 12:43 PM [facility] Glucose 90 70 - 100 mg/dL LAB CHEMISTRY METHOD 09/15/2024 12:43 PM [facility] BUN 49(H) 5 - 25 mg/dL LAB CHEMISTRY METHOD 09/15/2024 12:43 PM [facility] Creatinine 1.80(H) 0.50 - 1.10 mg/dL LAB CHEMISTRY METHOD 09/15/2024 12:43 PM [facility] eGFR 29(L) >=60 mL/min/1. 73m2 LAB CHEMISTRY METHOD 09/15/2024 12:43 PM [facility] LAB Comment:Calculation based on the Chronic Kidney Disease Epidemiology Collaboration (CKD-EPI) equation refit without adjustment for race. BUN/Creatinine Ratio 27.2 LAB CHEMISTRY METHOD 09/15/2024 12:43 PM EDT [facility] Calcium 8.9 8.5 - 10.5 mg/dL LAB CHEMISTRY METHOD 09/15/2024 12:43 PM T [facility] LAB AST (SGOT) 6(L) 10 - 42 unit/L LAB CHEMISTRY METHOD 09/15/2024 12:43 PM [facility] ALT (SGPT) 15 10 - 60 unit/L LAB CHEMISTRY METHOD 09/15/2024 12:43 PM T [facility] LAB Alkaline Phosphatase 56 42 - 121 unit/L LAB CHEMISTRY METHOD 09/15/2024 12:43 PM [facility] Total Protein 6.0 6.0 - 8.0 g/dL LAB CHEMISTRY METHOD 09/15/2024 12:43 PM [facility] Albumin 3.0(L) 3.2 - 5.0 g/dL LAB CHEMISTRY METHOD 09/15/2024 12:43 PM [facility] Total Bilirubin 0.5 0.0 - 1.4 mg/dL LAB CHEMISTRY METHOD 09/15/2024 12:43 PM [facility] Blood Venous blood specimen / Unknown Venipuncture / Unknown 09/15/2024 7:05 AM EDT 09/15/2024 10:50 AM EDT us Lincoln Crespo MD LAB BLOOD ORDERABLES Final Resu lt [facility] [address] [place] [address], documented in this encounter Visit Diagnoses Diagnosis Essential (primary) hypertension Unspecified essential hypertension Atherosclerotic heart disease of [place] coronary artery without angina pectoris Anemia, unspecified documented in this encounter Care Teams A Class Lineman Relationship Specialty Start Date End Date John Avina DO [address] [place] [phone] PCP - General Internal Medicine 06/10/24 documented as of this encounter
--- OUTSIDE RECORDS SUMMARY | 2025-01-12 16:25 | XMS_ITS | Encounter Summary ---
Author Organization [facility] Address [address] [place] [address] Care Team Providers Care Forestry Workers Name Role Phone John Avina DO Primary Care Provider [phone] Encounter Details Date Type Department Care Team (Late st Contact Info) Description 09/09/2024 Lab Requisition [facility] - Main Lab [address] [facility] [place] [address] Lincoln Crespo MD [address] [place] [address] Essential (primary) hypertension; Atherosclerotic heart disease of [place] coronary artery without angina pectoris; Anemia, [...] Essential (primary) hypertension Atherosclerotic heart disease of [place] coronary artery without angina pectoris Anemia, unspecified Chronic kidney disease, unspecified BASIC METABOLIC PANEL Routine 09/10/2024 6:12 AM EDT Essential (primary) hypertension Atherosclerotic heart disease of [place] coronary artery without angina pectoris Anemia, unspecified Chronic kidney disease, unspecified documented in this encounter Results * (ABNORMAL) Basic metabolic panel (09/10/2024 6:12 AM EDT) Sodium 146(H) 133 - 145 mmol/L LAB CHEMISTRY METHOD 09/10/2024 10:04 AM [facility] Potassium 4.0 3.5 - 5.5 mmol/L LAB CHEMISTRY METHOD 09/10/2024 10:04 AM [facility] Chloride 113(H) 96 - 110 mmol/L LAB CHEMISTRY METHOD 09/10/2024 10:04 AM [facility] CO2 26 21 - 32 mmol/L LAB CHEMISTRY METHOD 09/10/2024 10:04 AM [facility] Anion Gap 7 3 - 11 LAB CHEMISTRY METHOD 09/10/2024 10:04 AM [facility] Glucose 84 70 - 100 mg/dL LAB CHEMISTRY METHOD 09/10/2024 10:04 AM [facility] BUN 44(H) 5 - 25 mg/dL LAB CHEMISTRY METHOD 09/10/2024 10:04 AM [facility] Creatinine 2.03(H) 0.50 - 1.10 mg/dL LAB CHEMISTRY METHOD 09/10/2024 10:04 AM [facility] eGFR 25(L) >=60 mL/min/1. 73m2 LAB CHEMISTRY METHOD 09/10/2024 10:04 AM [facility] Comment:Calculation based on the Chronic Kidney Disease Epidemiology Collaboration (CKD-EPI) equation refit without adjustment for race. BUN/Creatinine Ratio 21.7 LAB CHEMISTRY METHOD 09/10/2024 10:04 AM [facility] Calcium 8.8 8.5 - 10.5 mg/dL LAB CHEMISTRY METHOD 09/10/2024 10:04 AM [facility] Blood Venous blood specimen / Unknown Venipuncture / Unknown 09/10/2024 6:12 AM EDT 09/10/2024 9:16 AM EDT us Lincoln Crespo MD LAB BLOOD ORDERABLES Final Resu lt [facility] [address] [place] [address], * (ABNORMAL) Complete blood count (09/10/2024 6:12 AM EDT) [facility] WBC 5.2 4.8 - 10.8 K/mcL LAB HEMETOLOGY METHOD 09/10/2024 9:33 AM EDT [facility] RBC 2.50(L) 3.80 - 4.80 M/mcL LAB HEMETOLOGY METHOD 09/10/2024 9:33 AM EDT [facility] Hemoglobin 8.6(L) 11.5 - 16.0 g/dL LAB HEMETOLOGY METHOD 09/10/2024 9:33 AM EDT [facility] Hematocrit 26.4(L) 35.0 - 47.0 % LAB HEMETOLOGY METHOD 09/10[facility]2024 [facility] MCV 106.5(H) 79.0 - 98.0 FL LAB HEMETOLOGY METHOD 09/10/2024 9:33 AM EDT [facility] MCH 34.7(H) 27.0 - 32.0 pcg LAB HEMETOLOGY METHOD 09/10/2024 9[facility] MCHC 32.6 32.0 - 37.0 g/dL LAB HEMETOLOGY METHOD 09/10/2024 9:33 [facility] RDW 19.2(H) 11.0 - 15.0 % LAB HEMETOLOGY METHOD 09/10/2024 9:33 AM EDT [facility] Platelets 161 130 - 400 K/mcL LAB HEMETOLOGY METHOD 09/10/2024 9:33 AM EDT [facility] MPV 9.3 7.0 - 11.0 FL LAB HEMETOLOGY METHOD 09/10/2024 9:33 AM EDT [facility] NRBC 0.0 <1.0 % LAB HEMETOLOGY METHOD 09/10/2024 9:33 AM EDT [facility] NRBC Absolute 0.00 <0.10 K/mcL LAB HEMETOLOGY METHOD 09/10/2024 9:33 AM EDT [facility] Blood Venous blood specimen / Unknown Venipuncture / Unknown 09/10/2024 6:12 AM EDT 09/10/2024 9:16 AM EDT us Lincoln Crespo MD LAB BLOOD ORDERABLES Final Resu lt [facility] [address] [place] [address], documented in this encounter Visit Diagnoses Diagnosis Essential (primary) hypertension Unspecified essential hypertension Atherosclerotic heart disease of [place] coronary artery without angina pectoris Anemia, unspecified Chronic kidney disease, unspecified documented in this encounter Care Teams Forestry Workers Relationship Specialty Start Date End Date John Avina DO [address] [place] [phone] PCP - General Internal Medicine 06/10/24 documented as of this encounter
--- OUTSIDE RECORDS SUMMARY | 2025-01-12 16:25 | XMS_ITS | Encounter Summary ---
Author Organization [facility] Address [address] [place] [address] Care Team Providers Care Manager Fine Name Role Phone John Avina DO Primary Care Provider [phone] Encounter Details Date Type Department Care Team (Late st Contact Info) Description 09/16/2024 Lab Requisition [facility] - Main Lab [address] [facility] [place] [address] Lincoln Crespo MD [address] [place] [address] Essential (primary) hypertension; Atherosclerotic heart disease of [place] coronary artery without angina pectoris; Anemia, unspecified; [...] Essential (primary) hypertension Atherosclerotic heart disease of [place] coronary artery without angina pectoris Anemia, unspecified Chronic kidney disease, unspecified BASIC METABOLIC PANEL Routine 09/17/2024 8:40 AM EDT Essential (primary) hypertension Atherosclerotic heart disease of [place] coronary artery without angina pectoris Anemia, unspecified Chronic kidney disease, unspecified documented in this encounter Results * (ABNORMAL) Basic metabolic panel (09/17/2024 8:40 AM EDT) Sodium 141 133 - 145 mmol/L LAB CHEMISTRY METHOD 09/17/2024 11:11 AM [facility] LAB Potassium 4.0 3.5 - 5.5 mmol/L LAB CHEMISTRY METHOD 09/17/2024 11:11 AM [facility] LAB Chloride 109 96 - 110 mmol/L LAB CHEMISTRY METHOD 09/17/2024 11:11 AM [facility] CO2 24 21 - 32 mmol/L LAB CHEMISTRY METHOD 09/17/2024 11:11 AM [facility] Anion Gap 8 3 - 11 LAB CHEMISTRY METHOD 09/17/2024 11:11 AM [facility] Glucose 103(H) 70 - 100 mg/dL LAB CHEMISTRY METHOD 09/17/2024 11:11 AM [facility] BUN 49(H) 5 - 25 mg/dL LAB CHEMISTRY METHOD 09/17/2024 11:11 AM [facility] Creatinine 1.74(H) 0.50 - 1.10 mg/dL LAB CHEMISTRY METHOD 09/17/2024 11:11 AM [facility] LAB eGFR 30(L) >=60 mL/min/1. 73m2 LAB CHEMISTRY METHOD 09/17/2024 11:11 AM [facility] LAB Comment:Calculation based on the Chronic Kidney Disease Epidemiology Collaboration (CKD-EPI) equation refit without adjustment for race. BUN/Creatinine Ratio 28.2 LAB CHEMISTRY METHOD 09/17/2024 11:11 AM [facility] Calcium 9.3 8.5 - 10.5 mg/dL LAB CHEMISTRY METHOD 09/17/2024 11:11 AM [facility] Blood Venous blood specimen / Unknown Venipuncture / Unknown 09/17/2024 8:40 AM EDT 09/17/2024 10:05 AM EDT us Lincoln Crespo MD LAB BLOOD ORDERABLES Final Resu lt [facility] [address] [place] [address], * (ABNORMAL) Complete blood count (09/17/2024 8:40 AM EDT) [facility] WBC 6.5 4.8 - 10.8 K/mcL LAB HEMETOLOGY METHOD 09/17/2024 10:[address] [facility] RBC 2.70(L) 3.80 - 4.80 M/mcL LAB HEMETOLOGY METHOD 09/17/2024 10:[address] [facility] Hemoglobin 9.4(L) 11.5 - 16.0 g/dL LAB HEMETOLOGY METHOD 09/17/2024 10:30 AM [facility] Hematocrit 28.1(L) 35.0 - 47.0 % LAB HEMETOLOGY METHOD 09/17/2024 10:30 AM [facility] MCV 106.0(H) 79.0 - 98.0 FL LAB HEMETOLOGY METHOD [facility] MCH 35.5(H) 27.0 - 32.0 pcg LAB HEMETOLOGY METHOD 09/17/2024 10:30 AM [facility] MCHC 33.5 32.0 - 37.0 g/dL LAB HEMETOLOGY METHOD 09/17[facility]2024 10[facility] RDW 18.7(H) 11.0 - 15.0 % LAB HEMETOLOGY METHOD 09/17/2024 10[facility] Platelets 183 130 - 400 K/mcL LAB HEMETOLOGY METHOD 09/17/2024 10:30 AM [facility] MPV 9.4 7.0 - 11.0 FL LAB HEMETOLOGY METHOD 09/17/2024 10:[address] [facility] NRBC 0.0 <1.0 % LAB HEMETOLOGY METHOD 09/17/2024 10:[address] [facility] NRBC Absolute 0.00 <0.10 K/mcL LAB HEMETOLOGY METHOD 09/17/2024 10:[address] [facility] Blood Venous blood specimen / Unknown Venipuncture / Unknown 09/17/2024 8:40 AM EDT 09/17/2024 10:05 AM EDT us Lincoln Crespo MD LAB BLOOD ORDERABLES Final Resu lt [facility] [address] [place] [address], documented in this encounter Visit Diagnoses Diagnosis Essential (primary) hypertension Unspecified essential hypertension Atherosclerotic heart disease of [place] coronary artery without angina pectoris Anemia, unspecified Chronic kidney disease, unspecified documented in this encounter Care Teams Manager Fine Relationship Specialty Start Date End Date John Avina DO [address] [place] [phone] PCP - General Internal Medicine 06/10/24 documented as of this encounter
--- OUTSIDE RECORDS SUMMARY | 2025-01-12 16:25 | XMS_ITS | Encounter Summary ---
Author Organization [employer] Address [address] [place] [address] Care Team Providers Care Multimedia Specialist Name Role Phone John Avina DO Primary Care Provider [phone] Encounter Details Date Type Department Care Team (Late st Contact Info) Description 09/05/2024 Lab Requisition [facility] - Main Lab [address] [facility] [place] [address] Lincoln Crespo MD [address] [place] [address] Essential (primary) hypertension; Atherosclerotic heart disease of [place] coronary artery without angina pectoris; Anemia, unspecified [...] Essential (primary) hypertension Atherosclerotic heart disease of [place] coronary artery without angina pectoris Anemia, unspecified COMPREHENSIVE METABOLIC PANEL Routine 09/07/2024 5:11 AM EDT Essential (primary) hypertension Atherosclerotic heart disease of [place] coronary artery without angina pectoris Anemia, unspecified documented in this encounter Results * (ABNORMAL) Comprehensive metabolic panel (09/07/2024 5:11 AM EDT) Sodium 144 133 - 145 mmol/L LAB CHEMISTRY METHOD 09/07/2024 2:49 PM EDT [facility] Potassium 3.9 3.5 - 5.5 mmol/L LAB CHEMISTRY METHOD 09/07/2024 2:49 PM [facility] Chloride 109 96 - 110 mmol/L LAB CHEMISTRY METHOD 09/07/2024 2:49 PM [facility] CO2 23 21 - 32 mmol/L LAB CHEMISTRY METHOD 09/07/2024 2:49 PM [facility] Anion Gap 12(H) 3 - 11 LAB CHEMISTRY METHOD 09/07/2024 2:49 PM [facility] Glucose 77 70 - 100 mg/dL LAB CHEMISTRY METHOD 09/07/2024 2:49 PM [facility] BUN 48(H) 5 - 25 mg/dL LAB CHEMISTRY METHOD 09/07/2024 2:49 PM [facility] Creatinine 1.93(H) 0.50 - 1.10 mg/dL LAB CHEMISTRY METHOD 09/07/2024 2:49 PM [facility] eGFR 26(L) >=60 mL/min/1. 73m2 LAB CHEMISTRY METHOD 09/07/2024 2:49 PM [facility] Comment:Calculation based on the Chronic Kidney Disease Epidemiology Collaboration (CKD-EPI) equation refit without adjustment for race. BUN/Creatinine Ratio 24.9 LAB CHEMISTRY METHOD 09/07/2024 2:49 PM [facility] Calcium 8.9 8.5 - 10.5 mg/dL LAB CHEMISTRY METHOD 09/07/2024 2:49 PM [facility] AST (SGOT) 6(L) 10 - 42 unit/L LAB CHEMISTRY METHOD 09/07/2024 2:49 PM [facility] ALT (SGPT) 14 10 - 60 unit/L LAB CHEMISTRY METHOD 09/07/2024 2:49 PM [facility] Alkaline Phosphatase 61 42 - 121 unit/L LAB CHEMISTRY METHOD 09/07/2024 2:49 PM [facility] Total Protein 6.1 6.0 - 8.0 g/dL LAB CHEMISTRY METHOD 09/07/2024 2:49 PM EDT [facility] Albumin 3.0(L) 3.2 - 5.0 g/dL LAB CHEMISTRY METHOD 09/07/2024 2:49 PM EDT [facility] Total Bilirubin 0.5 0.0 - 1.4 mg/dL LAB CHEMISTRY METHOD 09/07/2024 2:49 PM EDT [facility] Blood Venous blood specimen / Unknown Venipuncture / Unknown 09/07/2024 5:11 AM EDT 09/07/2024 2:11 PM EDT us Lincoln Crespo MD LAB BLOOD ORDERABLES Final Resu lt [facility] [address] [place] [address], [place] [phone] * (ABNORMAL) Complete blood count (09/07/2024 5:11 AM EDT) WBC 5.1 4.8 - 10.8 K/mcL LAB HEMETOLOGY METHOD 09/07/2024 3:07 PM EDT [facility] RBC 2.40(L) 3.80 - 4.80 M/mcL LAB HEMETOLOGY METHOD 09/07/2024 3:07 PM EDT [facility] Hemoglobin 8.2(L) 11.5 - 16.0 g/dL LAB HEMETOLOGY METHOD 09/07/2024 3:07 PM EDT [facility] Hematocrit 25.9(L) 35.0 - 47.0 % LAB HEMETOLOGY METHOD 09/07/2024 3:07 PM EDT [facility] MCV 107.9(H) 79.0 - 98.0 FL LAB HEMETOLOGY METHOD 09/07/2024 3:07 PM EDT [facility] MCH 34.2(H) 27.0 - 32.0 pcg LAB HEMETOLOGY METHOD 09/07/2024 3:07 PM EDT [facility] MCHC 31.7(L) 32.0 - 37.0 g/dL LAB HEMETOLOGY METHOD 09/07/2024 3:07 PM EDT [facility] RDW 19.3(H) 11.0 - 15.0 % LAB HEMETOLOGY METHOD 09/07/2024 3:07 PM EDT [facility] Platelets 176 130 - 400 K/mcL LAB HEMETOLOGY METHOD 09/07/2024 3:07 PM EDT [facility] MPV 9.0 7.0 - 11.0 FL LAB HEMETOLOGY METHOD 09/07/2024 3:07 PM EDT [facility] NRBC 0.0 <1.0 % LAB HEMETOLOGY METHOD 09/07/2024 3:07 PM EDT [facility] NRBC Absolute 0.00 <0.10 K/mcL LAB HEMETOLOGY METHOD 09/07/2024 3:07 PM EDT [facility] Blood Venous blood specimen / Unknown Venipuncture / Unknown 09/07/2024 5:11 AM EDT 09/07/2024 12:03 PM EDT us Lincoln Crespo MD LAB BLOOD ORDERABLES Final Resu lt [facility] [address] [place] [address], [place] [phone] documented in this encounter Visit Diagnoses Diagnosis Essential (primary) hypertension Unspecified essential hypertension Atherosclerotic heart disease of [place] coronary artery without angina pectoris Anemia, unspecified documented in this encounter Care Teams Multimedia Specialist Relationship Specialty Start Date End Date John Avina DO [address] [place] [phone] PCP - General Internal Medicine 06/10/24 documented as of this encounter
== END 2025-01-12 13:56 | disposition home or self-care (01) ==
LOC: HO.HMCSH 13:22
PROVIDERS: PCP Internal Medicine; Visit Provider Physician Assistant Medical
DX: I50.20 Unspecified systolic (congestive) heart failure (principal); D64.9 Anemia, unspecified; M51.369 Other intervertebral disc degeneration, lumbar region without mention of lumbar back pain or lower extremity pain; R09.82 Postnasal drip; Z23 Encounter for immunization

== ENCOUNTER → 2025-01-12 13:22 | Outpatient (BNVA) | payer MEDICARE, SELFPAY | PROVIDERS: PCP Internal Medicine; Visit Provider Physician Assistant Medical | DX: I50.20 Unspecified systolic (congestive) heart failure (principal); D64.9 Anemia, unspecified; M51.369 Other intervertebral disc degeneration, lumbar region without mention of lumbar back pain or lower extremity pain; R09.82 Postnasal drip; Z23 Encounter for immunization | CPT/HCPCS: 90471; 90656; 96127; 99212 ==

== ENCOUNTER 2025-01-13 16:27 | Outpatient (REF) | payer MEDICARE, SELFPAY ==
--- NOTE | ~2025-01-13 | MR_ITS ---
EXAM: MRI Lumbar Spine without Contrast. TECHNIQUE: Multiplanar multisequence MR imaging was performed through the lumbar spine without contrast. 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 If level specific intervention is planned, correlate with an x-ray to ensure concordant numbering. Marrow and end-plates: Extensive metastatic changes are present. T12-L1: Moderate unchanged L1-L2: Moderate unchanged L2-L3: Mixed Modic 2 and Modic 1 changes L3-L4: Modic 1 signal L4-L5: Modic 2 signal with Modic 1 signal. L5-S1: Moderately 2 signal Alignment: There is mild dextroscoliosis. L1-2 demonstrates mild grade 1 retrolisthesis. L5-S1 demonstrates grade 1 anterolisthesis. Soft tissues: Numerous simple renal cysts are present bilaterally. There is an extrarenal pelvis involving both kidneys. There is moderate fatty streaking of paraspinal musculature. Conus: The termination of conus medullaris is within normal limits at the level of L2. T12-L1: There is moderate disc space narrowing and mild circumferential broad-based disc bulge without spinal stenosis or foraminal narrowing. L1-L2: There is moderate loss of disc height and broad posterior disc extrusion extending into the left subarticular zone and medial neural foramen. There is mild ligament flavum thickening and facet arthropathy. There is mild spinal stenosis with left lateral recess narrowing displacing the left L2 nerve root posteriorly. There is mild left foraminal narrowing without right-sided narrowing. L2-L3: There is mild loss of disc height and circumferential broad-based disc bulge with moderate facet degeneration and ligamentum flavum thickening resulting in moderate spinal stenosis. There is mild right and moderate left subarticular zone narrowing with likely encroachment of the left L3 nerve root. There is mild left foraminal narrowing without right-sided narrowing. L3-L4: There is severe loss disc height and circumferential broad-based disc bulge with severe facet arthropathy and ligamentum flavum thickening resulting in severe spinal stenosis. There is mild to moderate bilateral foraminal narrowing. L4-L5: There is mild loss of disc height and circumferential broad-based disc bulge with endplate osteophytes. There is moderate severe facet degeneration with ligamentum flavum thickening resulting in moderate spinal stenosis. There is severe right subarticular zone and moderate left subarticular zone narrowing with encroachment of the right L5 nerve root. There is severe right and minimal left foraminal narrowing. L5-S1: There is severe disc space narrowing with circumferential broad-based disc bulge. Disc indents thecal sac resulting in borderline spinal stenosis. There is severe right and moderate left subarticular zone narrowing with probable encroachment of right S1 nerve root and possible encroachment of the left S1 nerve root. There is severe bilateral foraminal narrowing. MR/MR lumbar spine wo con IMPRESSION: L1-L2: There is mild spinal stenosis with left lateral recess narrowing displacing the left L2 nerve root posteriorly. L2-L3: There is moderate spinal stenosis with mild right and moderate left subarticular zone narrowing with likely encroachment of the left L3 nerve root. L3-L4: There is severe spinal stenosis with mild to moderate bilateral foraminal narrowing. L4-L5: There is moderate spinal stenosis with severe right and moderate left subarticular zone narrowing with encroachment of the right L5 nerve root. There is severe right foraminal narrowing encroaching on the right L4 nerve root. L5-S1: There is severe right and moderate left subarticular zone narrowing with probable encroachment of right S1 nerve root and possible encroachment of the left S1 nerve root. There is severe bilateral foraminal narrowing likely encroaches on the bilateral L5 nerve root. Electronically signed by: Carter Dia MD 01/13/2025 05:32 PM EDT
--- OUTSIDE RECORDS SUMMARY | 2025-01-13 18:07 | XMS_ITS | Clinical Summary ---
Author Organization [address] Address [address] [place] [address] Phone Care Team Providers Care Densitometrist Name Role Phone FabriceJohn solares Primary Care Provider [phone] Social History Tobacco Use Types Packs/Day Years [...] Essential (primary) hypertension Atherosclerotic heart disease of [place] coronary artery without angina pectoris Anemia, unspecified Chronic kidney disease, unspecified from Last 3 Months or Most Recently Relevant to Health Maintenance Results * (ABNORMAL) Basic metabolic panel (09/17/2024 8:40 AM EDT) Sodium 141 133 - 145 mmol/L LAB CHEMISTRY METHOD 09/17/2024 11:11 AM [facility] Potassium 4.0 3.5 - 5.5 mmol/L LAB CHEMISTRY METHOD 09/17/2024 11:11 AM [facility] Chloride 109 96 - 110 mmol/L LAB CHEMISTRY METHOD 09/17/2024 11:11 AM [facility] CO2 24 21 - 32 mmol/L LAB CHEMISTRY METHOD 09/17/2024 11:11 AM [facility] Anion Gap 8 3 - 11 LAB CHEMISTRY METHOD 09/17/2024 11:11 AM [facility] Glucose 103(H) 70 - 100 mg/dL LAB CHEMISTRY METHOD 09/17/2024 11:11 AM EDT [facility] BUN 49(H) 5 - 25 mg/dL LAB CHEMISTRY METHOD 09/17/2024 11:11 AM EDT [facility] Creatinine 1.74(H) 0.50 - 1.10 mg/dL LAB CHEMISTRY METHOD 09/17/2024 11:11 AM EDT [facility] eGFR 30(L) >=60 mL/min/1. 73m2 LAB CHEMISTRY METHOD 09/17/2024 11:11 AM EDT [facility] Comment:Calculation based on the Chronic Kidney Disease Epidemiology Collaboration (CKD-EPI) equation refit without adjustment for race. BUN/Creatinine Ratio 28.2 LAB CHEMISTRY METHOD 09/17/2024 11:11 AM EDT [facility] Calcium 9.3 8.5 - 10.5 mg/dL LAB CHEMISTRY METHOD 09/17/2024 11:11 AM EDT [facility] Blood Venous blood specimen / Unknown Venipuncture / Unknown 09/17/2024 8:40 AM EDT 09/17/2024 10:05 AM EDT Lincoln Crespo MD LAB BLOOD ORDERABLES Final Resu lt [facility] [address] [place] [address], from Last 3 Months or Most Recently Relevant to Health Maintenance Insurance MEDICARE [facility] MEDIC[facility] Care Teams Densitometrist Relationship Specialty Start Date End Date John Avina DO [address] [place] [phone] PCP - General Internal Medicine 06/10/24
--- OUTSIDE RECORDS SUMMARY | 2025-01-13 18:07 | XMS_ITS | Encounter Summary ---
Author Organization [facility] Address [address] [place] [address] Care Team Providers Care Client Solutions Specialist Name Role Phone John Avina DO Primary Care Provider [phone] Encounter Details Date Type Department Care Team (Late st Contact Info) Description 08/17/2024 Lab Requisition [facility] - Main Lab 299 [facility] [place] [address] Lincoln Crespo MD [address] [place] [address] Other ulcerative colitis with rectal [...] AM EDT) WBC 7.1 4.8 - 10.8 K/[facility] LAB HEMETOLOGY METHOD 08/18/2024 11:09 AM EDT [facility] LAB RBC 2.80(L) 3.80 - 4.80 M/[facility] LAB HEMETOLOGY METHOD 08/18/2024 11:09 AM [place] [...] MD LAB BLOOD ORDERABLES Final Resu lt [facility] LAB [address] [place] [address], documented in this encounter Visit Diagnoses Diagnosis Other ulcerative colitis with rectal bleeding (CMS/HCC V24, CMS/HCC V28) Anemia in chronic kidney disease (CODE) documented in this encounter Care Teams Client Solutions Specialist Relationship Specialty Start Date End Date Jhon Avina DO [address] [place] [phone] PCP - General Internal Medicine 06/10/24 documented as of this encounter
--- OUTSIDE RECORDS SUMMARY | 2025-01-13 18:07 | XMS_ITS | Clinical Summary ---
Author Organization [facility] Address [address] [place] [address] Phone Care Team Providers Care Wash House Supervisor Name Role Phone FabriceJohn solares Primary Care Provider [phone] Allergies Active Allergy Reactions Criticality Noted Date [...] Visit [facility] [address] [place] [address] Mejia Soler [...] Visit [facility] [address] [place] [address] Mejia Soler MD [address] [facility] [address] [place] [address] Health Maintenance Due Date Last [...] age to complete this topic Insurance Medicare [facility] Medicare [facility] Care Teams Wash House Supervisor Relationship Specialty Start Date End Date John Avina DO [address] [place] [address] PCP - General Internal Medicine 10/23/23
--- OUTSIDE RECORDS SUMMARY | 2025-01-13 18:07 | XMS_ITS | Clinical Summary ---
Author Organization [facility] Address [address] [facility] [address] [place] [address] Phone Care Team Providers Care Encapsulator Name Role Phone Aniceto Emery MD Primary Care Provider [phone] Juliann Tse MD Unavailable [phone] Henrry Espino MD Unavailable [phone] Allergies Active Allergy Reactions Criticality Noted Date [...] Smoking Tobacco: Former Cigarettes 1 23 [phone] Education Answer Date Recorded Are you interested [...] EST) SODIUM 138 135 - 145 mmol/L [facility] LIC# [id number] POTASSIUM 3.8 3.5 - 5.0 mmol/L [facility] LIC# [id number] CHLORIDE 104 98 - 108 mmol/L [facility] LIC# [id number] CO2 27 23 - 32 mmol/L [facility] LIC# [id number] BUN 28(H) 9 - 25 mg/dL [facility] LIC# [id number] CREATININE 1.26 0.7 - 1.3 mg/dL [facility] LIC# [id number] GLUCOSE 143(H) 70 - 100 mg/dL [facility] LIC# [id number] ALBUMIN 4.3 3.7 - 5.4 g/dL [facility] LIC# [id number] TOTAL PROTEIN 7.4 6.0 - 8.0 g/dL [facility] LIC# [id number] CALCIUM 9.8 8.8 - 10.5 mg/dL [facility] LIC# [id number] ALKALINE PHOSPHATASE 82 36 - 118 U/L [facility] LIC# [id number] TOTAL BILIRUBIN 0.5 0.2 - 1.2 mg/dL [facility] LIC# [id number] AST 15 9 - 30 U/L [facility] LIC# [id number] ALT 16 7 - 52 U/L [facility] LIC# [id number] GLOBULIN 3.1 2.3 - 4.2 g/dL [facility] LIC# [id number] EGFR 42 mL/min/1.7 3m2 [facility] LIC# [id number] Comment:Abnormal if <60 mL/m in/1.73m2. If patient is -Yemeni, multiply the result by 1.21. ANION GAP 7 5 - 17 mmol/L [facility] LIC# [id number] 06/04/2016 4:11 PM EST 06/04/2016 4:19 PM EST Henrry Espino MD LAB BLOOD ORDERABLES Final Result [facility] LIC# [id number] [address] [place] [address] from Last 3 Months or Most Recently Relevant to Health Maintenance Insurance [place] [place] [address] PPO PPO PPO PPO PPO [facility] PPO Advance Directives For more information, please contact: [phone] (9AM - 5PM [facility], Saturday-Saturday) Documents on File Type Date Recorded Patient Supervisor Hospitality House Expl anation Healthcare Proxy 06/04/2016 3:21 PM HCP Care Teams Encapsulator Relationship Specialty Start Date End Date Aniceto Emery MD PCP - General Internal Medicine 04/25/16 Henrry Espino MD [address] [place] [address] Multiple Myeloma [place] [address] [email or web address] PCP - Hematology/Oncology Medical Oncology 06/06/16 Juliann Tse MD [address] [place] [id number] [email or web address] Referring Physician Hematology and Oncology 04/25/16 Additional Source Comments The information contained in this document represents components of the legal health record. It is not the complete legal health record.[facility]
--- OUTSIDE RECORDS SUMMARY | 2025-01-13 18:07 | XMS_ITS | Encounter Summary ---
Author Organization [facility] Address [address] [place] [address] Care Team Providers Care Customer Service Advocate Name Role Phone John Avina DO Primary Care Provider [phone] Encounter Details Date Type Department Care Team (Late st Contact Info) Description 06/10/2024 Lab Requisition [facility] - Main Lab 299 [facility] [place] [address] Arianna Iraheta PA [address] [place], [place] [id number] Dysuria Social History Tobacco Use Types Packs/Day [...] pneumoniae(A) RIC 06/12/2024 11:01 AM EST [facility] LAB Comment: This is an [...] - GENERAL ORD ERABLES Final Result [facility] LAB [address] [place] [address], documented in this encounter Visit Diagnoses Diagnosis Dysuria documented in this encounter Care Teams Customer Service Advocate Relationship Specialty Start Date End Date John Avina DO [address] [place] [phone] PCP - General Internal Medicine 06/10/24 documented as of this encounter
--- OUTSIDE RECORDS SUMMARY | 2025-01-13 18:07 | XMS_ITS | Encounter Summary ---
Author Organization [facility] Address [address] [place] [phone] Care Team Providers Care Aircraft Structure Mechanic Name Role Phone John Avina DO Primary Care Provider [phone] Encounter Details Date Type Department Care Team (Late st Contact Info) Description 09/18/2024 Lab Requisition [facility] - Main Lab [address] [place] [address] Lincoln Crespo MD [address] [place] [address] Essential (primary) hypertension; Atherosclerotic heart disease of [place] coronary artery without angina pectoris; Anemia, unspecified [...] Unspecified essential hypertension Atherosclerotic heart disease of [place] coronary artery without angina pectoris Anemia, unspecified documented in this encounter Care Teams Aircraft Structure Mechanic Relationship Specialty Start Date End Date John Avina DO [address] [place] [phone] PCP - General Internal Medicine 06/10/24 documented as of this encounter
--- OUTSIDE RECORDS SUMMARY | 2025-01-13 18:08 | XMS_ITS | Encounter Summary ---
Author Organization [facility] Address [address] [place] [address] Care Team Providers Care Photographic Engineer Name Role Phone John Avina DO Primary Care Provider [phone] Encounter Details Date Type Department Care Team (Late st Contact Info) Description 08/19/2024 Lab Requisition [facility] - Main Lab 299 [facility] [place] [address] Lincoln Crespo MD [address] [place] [address] Essential (primary) hypertension; Atherosclerotic heart disease of [place] coronary artery without angina pectoris; Anemia, unspecified; [...] Essential (primary) hypertension Atherosclerotic heart disease of [place] coronary artery without angina pectoris Anemia, unspecified Chronic kidney disease, unspecified BASIC METABOLIC PANEL Routine 08/20/2024 6:56 AM EDT Essential (primary) hypertension Atherosclerotic heart disease of [place] coronary artery without angina pectoris Anemia, unspecified Chronic kidney disease, unspecified documented in this encounter Results * (ABNORMAL) Basic metabolic panel (08/20/2024 6:56 AM EDT) Sodium 140 133 - 145 mmol/L LAB CHEMISTRY METHOD 08/20/2024 10:17 AM [facility] LAB Potassium 4.1 3.5 - 5.5 mmol/L LAB CHEMISTRY METHOD 08/20/2024 10:17 AM [facility] LAB Chloride 107 96 - 110 mmol/L LAB CHEMISTRY METHOD 08/20/2024 10:17 AM [facility] LAB CO2 25 21 - 32 mmol/L LAB CHEMISTRY METHOD 08/20/2024 10:17 AM [facility] LAB Anion Gap 8 3 - 11 LAB CHEMISTRY METHOD 08/20/2024 10:17 AM [facility] LAB Glucose 100 70 - 100 mg/dL LAB CHEMISTRY METHOD 08/20/2024 10:17 AM [facility] LAB BUN 31(H) 5 - 25 mg/dL LAB CHEMISTRY METHOD 08/20/2024 10:17 AM [facility] LAB Creatinine 1.63(H) 0.50 - 1.10 mg/dL LAB CHEMISTRY METHOD 08/20/2024 10:17 AM [facility] LAB eGFR 32(L) >=60 mL/min/1. 73m2 LAB CHEMISTRY METHOD 08/20/2024 10:17 AM [facility] LAB Comment:Calculation based on the Chronic Kidney Disease Epidemiology Collaboration (CKD-EPI) equation refit without adjustment for race. BUN/Creatinine Ratio 19.0 LAB CHEMISTRY METHOD 08/20/2024 10:17 AM [facility] LAB Calcium 9.2 8.5 - 10.5 mg/dL LAB CHEMISTRY METHOD 08/20/2024 10:17 AM [facility] LAB Blood Venous blood specimen / Unknown Venipuncture / Unknown 08/20/2024 6:56 AM EDT 08/20/2024 9:28 AM EDT us Lincoln Crespo MD LAB BLOOD ORDERABLES Final Resu lt [facility] LAB [address] [place] [address], * (ABNORMAL) Complete blood count (08/20/2024 6:56 AM EDT) [facility] WBC 8.6 4.8 - 10.8 K/mcL LAB HEMETOLOGY METHOD 08/20/2024 9:58 AM [facility] LAB RBC 3.30(L) 3.80 - 4.80 M/mcL LAB HEMETOLOGY METHOD 08/20[facility]24 [facility] Hemoglobin 10.9(L) 11.5 - 16.0 g/dL LAB HEMETOLOGY METHOD 08/20/2024 9:58 AM [facility] LAB Hematocrit 34.1(L) 35.0 - 47.0 % LAB HEMETOLOGY METHOD 08/20/2024 9:58 AM [facility] LAB MCV 102.1(H) 79.0 - 98.0 FL LAB HEMETOLOGY METHOD 08/20/2024 9:58 AM [facility] LAB MCH 32.6(H) 27.0 - 32.0 pcg LAB HEMETOLOGY METHOD 08/20/2024 9:58 AM [facility] LAB MCHC 32.0 32.0 - 37.0 g/dL LAB HEMETOLOGY METHOD 08/20/2024 9:58 AM [facility] LAB RDW 18.5(H) 11.0 - 15.0 % LAB HEMETOLOGY METHOD 08/20/2024 9:58 AM [facility] LAB Platelets 264 130 - 400 K/mcL LAB HEMETOLOGY METHOD 08/20/2024 9:58 AM [facility] LAB MPV 9.0 7.0 - 11.0 FL LAB HEMETOLOGY METHOD 08/20/2024 9:58 AM [facility] LAB NRBC 0.0 <1.0 % LAB HEMETOLOGY METHOD 08/20/2024 9:58 AM EDT [facility] LAB NRBC Absolute 0.00 <0.10 K/mcL LAB HEMETOLOGY METHOD 08/20/2024 9:58 AM EDT [facility] LAB Blood Venous blood specimen / Unknown Venipuncture / Unknown 08/20/2024 6:56 AM EDT 08/20/2024 9:29 AM EDT us Lincoln Crespo MD LAB BLOOD ORDERABLES Final Resu lt [facility] LAB [address] [place] [address], documented in this encounter Visit Diagnoses Diagnosis Essential (primary) hypertension Unspecified essential hypertension Atherosclerotic heart disease of [place] coronary artery without angina pectoris Anemia, unspecified Chronic kidney disease, unspecified documented in this encounter Care Teams Photographic Engineer Relationship Specialty Start Date End Date John Avina DO [address] [place] [phone] PCP - General Internal Medicine 06/10/24 documented as of this encounter
--- OUTSIDE RECORDS SUMMARY | 2025-01-13 18:08 | XMS_ITS | Encounter Summary ---
Author Organization [facility] Address [address] [place] [address] Care Team Providers Care Store Grocery Merchandiser Name Role Phone John Avina DO Primary Care Provider Encounter Details Date Type Department Care Team (Late st Contact Info) Description 08/15/2024 Lab Requisition [facility] - Main Lab 299 [facility] [place] [address] Lincoln Crespo MD [address] [place] [address] Other ulcerative colitis with rectal [...] LAB HEMETOLOGY METHOD 08/15/2024 11:29 AM EDT [facility] LAB RBC 3.10(L) 3.80 - 4.80 M/[facility] LAB HEMETOLOGY METHOD 08/15/2024 11:[address] [facility] LAB Hemoglobin 10.4(L) 11.5 - 16.0 g/dL LAB HEMETOLOGY METHOD 08/15/2024 11:[address] [facility] LAB Hematocrit 31.4(L) 35.0 - 47.0 % LAB HEMETOLOGY METHOD 08/15/2024 11:[address] [facility] LAB MCV 100.6(H) 79.0 - 98.0 FL LAB HEMETOLOGY METHOD 08/15/2024 11:[address] [facility] LAB MCH 33.3(H) 27.0 - 32.0 pcg LAB HEMETOLOGY METHOD 08/15/2024 11:[address] [facility] LAB MCHC 33.1 32.0 - 37.0 g/dL LAB HEMETOLOGY METHOD 08/15/2024 11:[address] [facility] LAB RDW 18.6(H) 11.0 - 15.0 % LAB HEMETOLOGY METHOD 08/15/2024 11:[address] [facility] LAB Platelets 228 130 - 400 K/mcL LAB HEMETOLOGY METHOD 08/15/2024 11:[address] [facility] LAB MPV 9.4 7.0 - 11.0 FL LAB HEMETOLOGY METHOD 08/15/2024 11:[address] [facility] LAB NRBC 0.0 <1.0 % LAB HEMETOLOGY METHOD 08/15/2024 11:[address] [facility] LAB NRBC Absolute 0.00 <0.10 K/mcL LAB HEMETOLOGY METHOD 08/15/2024 11:[address] [facility] LAB Blood Venous blood specimen / Unknown Venipuncture / Unknown 08/15/2024 9:21 AM EDT 08/15/2024 10:30 AM EDT Lincoln Crespo MD LAB BLOOD ORDERABLES Final [facility]u [facility] LAB [address] [place] [address], documented in this encounter Visit Diagnoses Diagnosis Other ulcerative colitis with rectal bleeding (CMS/HCC V24, CMS/HCC V28) Anemia in chronic kidney disease (CODE) documented in this encounter Care Teams Store Grocery Merchandiser Relationship Specialty Start Date End Date John Avina DO [address] [place] [phone] PCP - General Internal Medicine 06/10/24 documented as of this encounter
--- OUTSIDE RECORDS SUMMARY | 2025-01-13 18:08 | XMS_ITS | Encounter Summary ---
Author Organization [employer] Address [address] [place] [address] Care Team Providers Care Appliance Service Representative Name Role Phone John Avina DO Primary Care Provider [phone] Encounter Details Date Type Department Care Team (Late st Contact Info) Description 09/09/2024 Lab Requisition [facility] - Main Lab [address] [facility] [place] [address] Lincoln Crespo MD [address] [place] [address] Essential (primary) hypertension; Atherosclerotic heart disease of [place] coronary artery without angina pectoris; Anemia, unspecified; [...] Essential (primary) hypertension Atherosclerotic heart disease of [place] coronary artery without angina pectoris Anemia, unspecified Chronic kidney disease, unspecified BASIC METABOLIC PANEL Routine 09/10/2024 6:12 AM EDT Essential (primary) hypertension Atherosclerotic heart disease of [place] coronary artery without angina pectoris Anemia, unspecified Chronic kidney disease, unspecified documented in this encounter Results * (ABNORMAL) Basic metabolic panel (09/10/2024 6:12 AM EDT) Sodium 146(H) 133 - 145 mmol/L LAB CHEMISTRY METHOD 09/10/2024 10:04 AM [facility] LAB Potassium 4.0 3.5 - 5.5 mmol/L LAB CHEMISTRY METHOD 09/10/2024 10:04 AM [facility] LAB Chloride 113(H) 96 - 110 mmol/L LAB CHEMISTRY METHOD 09/10/2024 10:04 AM [facility] LAB CO2 26 21 - 32 mmol/L LAB CHEMISTRY METHOD 09/10/2024 10:04 AM [facility] LAB Anion Gap 7 3 - 11 LAB CHEMISTRY METHOD 09/10/2024 10:04 AM [facility] LAB Glucose 84 70 - 100 mg/dL LAB CHEMISTRY METHOD 09/10/2024 10:04 AM [facility] LAB BUN 44(H) 5 - 25 mg/dL LAB CHEMISTRY METHOD 09/10/2024 10:04 AM [facility] LAB Creatinine 2.03(H) 0.50 - 1.10 mg/dL LAB CHEMISTRY METHOD 09/10/2024 10:04 AM [facility] LAB eGFR 25(L) >=60 mL/min/1. 73m2 LAB CHEMISTRY METHOD 09/10/2024 10:04 AM [facility] LAB Comment:Calculation based on the Chronic Kidney Disease Epidemiology Collaboration (CKD-EPI) equation refit without adjustment for race. BUN/Creatinine Ratio 21.7 LAB CHEMISTRY METHOD 09/10/2024 10:04 AM [facility] LAB Calcium 8.8 8.5 - 10.5 mg/dL LAB CHEMISTRY METHOD 09/10/2024 10:04 AM [facility] LAB Blood Venous blood specimen / Unknown Venipuncture / Unknown 09/10/2024 6:12 AM EDT 09/10/2024 9:16 AM EDT us Lincoln Crespo MD LAB BLOOD ORDERABLES Final Resu lt [facility] LAB [address] [place] [address], * (ABNORMAL) Complete blood count (09/10/2024 6:12 AM EDT) [facility] WBC 5.2 4.8 - 10.8 K/mcL LAB HEMETOLOGY METHOD 09/10/2024 9:33 AM EDT [facility] LAB RBC 2.50(L) 3.80 - 4.80 M/mcL LAB HEMETOLOGY METHOD 09/10/2024 9:33 AM EDT [facility] LAB Hemoglobin 8.6(L) 11.5 - 16.0 g/dL LAB HEMETOLOGY METHOD 09/10/2024 9:33 AM EDT [facility] LAB Hematocrit 26.4(L) 35.0 - 47.0 % LAB HEMETOLOGY METHOD 09/10/2024 9[facility] MCV 106.5(H) 79.0 - 98.0 FL LAB HEMETOLOGY METHOD 09/10/2024 9:33 AM EDT [facility] LAB MCH 34.7(H) 27.0 - 32.0 pcg LAB HEMETOLOGY METHOD 09/10/2024 9:33 [facility] MCHC 32.6 32.0 - 37.0 g/dL LAB HEMETOLOGY METHOD 09/10/2024 9:33 [facility] RDW 19.2(H) 11.0 - 15.0 % LAB HEMETOLOGY METHOD 09/10/2024 9:33 AM EDT [facility] LAB Platelets 161 130 - 400 K/mcL LAB HEMETOLOGY METHOD 09/10/2024 9:33 AM EDT [facility] LAB MPV 9.3 7.0 - 11.0 FL LAB HEMETOLOGY METHOD 09/10/2024 9:33 AM EDT [facility] NRBC 0.0 <1.0 % LAB HEMETOLOGY METHOD 09/10/2024 9:33 AM EDT [facility] LAB NRBC Absolute 0.00 <0.10 K/mcL LAB HEMETOLOGY METHOD 09/10/2024 9:33 AM EDT [facility] LAB Blood Venous blood specimen / Unknown Venipuncture / Unknown 09/10/2024 6:12 AM EDT 09/10/2024 9:16 AM EDT us Lincoln Crespo MD LAB BLOOD ORDERABLES Final Resu lt [facility] LAB [address] [place] [address], documented in this encounter Visit Diagnoses Diagnosis Essential (primary) hypertension Unspecified essential hypertension Atherosclerotic heart disease of [place] coronary artery without angina pectoris Anemia, unspecified Chronic kidney disease, unspecified documented in this encounter Care Teams Appliance Service Representative Relationship Specialty Start Date End Date John Avina DO [address] [place] [phone] PCP - General Internal Medicine 06/10/24 documented as of this encounter
--- OUTSIDE RECORDS SUMMARY | 2025-01-13 18:08 | XMS_ITS | Encounter Summary ---
Author Organization [address] [employer] Address [address] [place] [address] Care Team Providers Care Traffic Control Technician Name Role Phone John Avina DO Primary Care Provider [phone] Encounter Details Date Type Department Care Team (Late st Contact Info) Description 08/26/2024 Lab Requisition [facility] - Main Lab [address] [facility] [place] [address] Lincoln Crespo MD [address] [place] [address] Essential (primary) hypertension; Atherosclerotic heart disease of [place] coronary artery without angina pectoris; Anemia, unspecified; [...] Essential (primary) hypertension Atherosclerotic heart disease of [place] coronary artery without angina pectoris Anemia, unspecified Chronic kidney disease, unspecified BASIC METABOLIC PANEL Routine 08/27/2024 5:31 AM EDT Essential (primary) hypertension Atherosclerotic heart disease of [place] coronary artery without angina pectoris Anemia, unspecified Chronic kidney disease, unspecified documented in this encounter Results * (ABNORMAL) Basic metabolic panel (08/27/2024 5:31 AM EDT) Sodium 144 133 - 145 mmol/L LAB CHEMISTRY METHOD 08/27/2024 10:08 AM [facility] Potassium 4.1 3.5 - 5.5 mmol/L LAB CHEMISTRY METHOD 08/27/2024 10:08 AM [facility] Chloride 111(H) 96 - 110 mmol/L LAB CHEMISTRY METHOD 08/27/2024 10:08 AM [facility] CO2 26 21 - 32 mmol/L LAB CHEMISTRY METHOD 08/27/2024 10:08 AM [facility] Anion Gap 7 3 - 11 LAB CHEMISTRY METHOD 08/27/2024 10:08 AM [facility] Glucose 86 70 - 100 mg/dL LAB CHEMISTRY METHOD 08/27/2024 10:08 AM [facility] BUN 41(H) 5 - 25 mg/dL LAB CHEMISTRY METHOD 08/27/2024 10:08 AM [facility] Creatinine 1.64(H) 0.50 - 1.10 mg/dL LAB CHEMISTRY METHOD 08/27/2024 10:08 AM [facility] eGFR 32(L) >=60 mL/min/1. 73m2 LAB CHEMISTRY METHOD 08/27/2024 10:08 AM [facility] Comment:Calculation based on the Chronic Kidney Disease Epidemiology Collaboration (CKD-EPI) equation refit without adjustment for race. BUN/Creatinine Ratio 25.0 LAB CHEMISTRY METHOD 08/27/2024 10:08 AM [facility] Calcium 8.6 8.5 - 10.5 mg/dL LAB CHEMISTRY METHOD 08/27/2024 10:08 AM [facility] Blood Venous blood specimen / Unknown Venipuncture / Unknown 08/27/2024 5:31 AM EDT 08/27/2024 8:43 AM EDT us Lincoln Crespo MD LAB BLOOD ORDERABLES Final Resu lt [facility] [address] [place] [address], * (ABNORMAL) Complete blood count (08/27/2024 5:31 AM EDT) [facility] WBC 5.4 4.8 - 10.8 K/mcL LAB HEMETOLOGY METHOD [facility] RBC 2.70(L) 3.80 - 4.80 M/mcL LAB HEMETOLOGY METHOD 08/27/2024 9:02 AM [facility] Hemoglobin 9.0(L) 11.5 - 16.0 g/dL LAB HEMETOLOGY METHOD 08/27/2024 9:02 AM [facility] Hematocrit 27.9(L) 35.0 - 47.0 % LAB HEMETOLOGY METHOD 08/27/2024 9:02 AM [facility] MCV 104.1(H) 79.0 - 98.0 FL LAB HEMETOLOGY METHOD 08/27/2024 9:02 AM [facility] MCH 33.6(H) 27.0 - 32.0 pcg LAB HEMETOLOGY METHOD 08/27/2024 9:02 AM [facility] MCHC 32.3 32.0 - 37.0 g/dL LAB HEMETOLOGY METHOD 08/27/2024 9:02 AM [facility] RDW 19.1(H) 11.0 - 15.0 % LAB HEMETOLOGY METHOD 08/27/2024 9:02 AM [facility] Platelets 214 130 - 400 K/mcL LAB HEMETOLOGY METHOD 08/27/2024 9:02 AM [facility] MPV 9.3 7.0 - 11.0 FL LAB HEMETOLOGY METHOD 08/27/2024 9:02 AM [facility] NRBC 0.0 <1.0 % LAB HEMETOLOGY METHOD 08/27/2024 9:02 AM EDT [facility] NRBC Absolute 0.00 <0.10 K/mcL LAB HEMETOLOGY METHOD 08/27/2024 9:02 AM EDT [facility] Blood Venous blood specimen / Unknown Venipuncture / Unknown 08/27/2024 5:31 AM EDT 08/27/2024 8:51 AM EDT us Lincoln Crespo MD LAB BLOOD ORDERABLES Final Resu lt [facility] [address] [place] [address], documented in this encounter Visit Diagnoses Diagnosis Essential (primary) hypertension Unspecified essential hypertension Atherosclerotic heart disease of [place] coronary artery without angina pectoris Anemia, unspecified Chronic kidney disease, unspecified documented in this encounter Care Teams Traffic Control Technician Relationship Specialty Start Date End Date John Avina DO [address] [place] [phone] PCP - General Internal Medicine 06/10/24 documented as of this encounter
--- OUTSIDE RECORDS SUMMARY | 2025-01-13 18:08 | XMS_ITS | Encounter Summary ---
Author Organization [employer] [facility] Address [address] [place] [address] Care Team Providers Care Management Recruiter Name Role Phone John Avina DO Primary Care Provider [phone] Encounter Details Date Type Department Care Team (Late st Contact Info) Description 09/02/2024 Lab Requisition [facility] - Main Lab [address] [facility] [place] [address] Lincoln Crespo MD [address] [place] [address] Essential (primary) hypertension; Atherosclerotic heart disease of [place] coronary artery without angina pectoris; Anemia, unspecified; [...] Essential (primary) hypertension Atherosclerotic heart disease of [place] coronary artery without angina pectoris Anemia, unspecified Chronic kidney disease, unspecified BASIC METABOLIC PANEL Routine 09/03/2024 7:35 AM EDT Essential (primary) hypertension Atherosclerotic heart disease of [place] coronary artery without angina pectoris Anemia, unspecified Chronic kidney disease, unspecified documented in this encounter Results * (ABNORMAL) Basic metabolic panel (09/03/2024 7:35 AM EDT) Sodium 142 133 - 145 mmol/L LAB CHEMISTRY METHOD 09/03/2024 9:20 AM [facility] Potassium 4.0 3.5 - 5.5 mmol/L LAB CHEMISTRY METHOD 09/03/2024 9:20 AM [facility] Chloride 112(H) 96 - 110 mmol/L LAB CHEMISTRY METHOD 09/03/2024 9:20 AM [facility] CO2 22 21 - 32 mmol/L LAB CHEMISTRY METHOD 09/03/2024 9:20 AM [facility] Anion Gap 8 3 - 11 LAB CHEMISTRY METHOD 09/03/2024 9:20 AM [facility] Glucose 90 70 - 100 mg/dL LAB CHEMISTRY METHOD 09/03/2024 9:20 AM [facility] BUN 48(H) 5 - 25 mg/dL LAB CHEMISTRY METHOD 09/03/2024 9:20 AM [facility] Creatinine 1.72(H) 0.50 - 1.10 mg/dL LAB CHEMISTRY METHOD 09/03/2024 9:20 AM [facility] eGFR 30(L) >=60 mL/min/1. 73m2 LAB CHEMISTRY METHOD 09/03/2024 9:20 AM [facility] Comment:Calculation based on the Chronic Kidney Disease Epidemiology Collaboration (CKD-EPI) equation refit without adjustment for race. BUN/Creatinine Ratio 27.9 LAB CHEMISTRY METHOD 09/03/2024 9:20 AM [facility] Calcium 9.3 8.5 - 10.5 mg/dL LAB CHEMISTRY METHOD 09/03/2024 9:20 AM [facility] Blood Venous blood specimen / Unknown Venipuncture / Unknown 09/03/2024 7:35 AM EDT 09/03/2024 8:28 AM EDT us Lincoln Crespo MD LAB BLOOD ORDERABLES Final Resu lt [facility] [address] [place] [address], * (ABNORMAL) Complete blood count (09/03/2024 7:35 AM EDT) [facility] Signature WBC 4.5(L) 4.8 - 10.8 K/mcL LAB HEMETOLOGY METHOD 09/03/2024 8:46 AM EDT [facility] RBC 2.60(L) 3.80 - 4.80 M/mcL LAB HEMETOLOGY METHOD 09/03/2024 8:46 AM EDT [facility] Hemoglobin 8.8(L) 11.5 - 16.0 g/dL LAB HEMETOLOGY METHOD 09/03/2024 8:46 AM [facility] Hematocrit 27.0(L) 35.0 - 47.0 % LAB HEMETOLOGY METHOD 09/03/2024 [facility] MCV 105.1(H) 79.0 - 98.0 FL LAB HEMETOLOGY METHOD 09/03/2024 8[facility] MCH 34.2(H) 27.0 - 32.0 pcg LAB HEMETOLOGY METHOD 09/03/2024 8:46 AM [facility] MCHC 32.6 32.0 - 37.0 g/dL LAB HEMETOLOGY METHOD 09/03/2024 8:[facility] RDW 19.1(H) 11.0 - 15.0 % LAB HEMETOLOGY METHOD 09/03/2024 8:46 AM EDT [facility] Platelets 200 130 - 400 K/mcL LAB HEMETOLOGY METHOD 09/03/2024 8:46 AM EDT [facility] MPV 9.2 7.0 - 11.0 FL LAB HEMETOLOGY METHOD 09/03/2024 8:46 AM EDT [facility] NRBC 0.0 <1.0 % LAB HEMETOLOGY METHOD 09/03/2024 8:46 AM EDT [facility] NRBC Absolute 0.00 <0.10 K/mcL LAB HEMETOLOGY METHOD 09/03/2024 8:46 AM EDT [facility] Blood Venous blood specimen / Unknown Venipuncture / Unknown 09/03/2024 7:35 AM EDT 09/03/2024 8:28 AM EDT us Lincoln Crespo MD LAB BLOOD ORDERABLES Final Resu lt [facility] [address] [place] [address], documented in this encounter Visit Diagnoses Diagnosis Essential (primary) hypertension Unspecified essential hypertension Atherosclerotic heart disease of [place] coronary artery without angina pectoris Anemia, unspecified Chronic kidney disease, unspecified documented in this encounter Care Teams Management Recruiter Relationship Specialty Start Date End Date John Avina DO [address] [place] [phone] PCP - General Internal Medicine 06/10/24 documented as of this encounter
--- OUTSIDE RECORDS SUMMARY | 2025-01-13 18:08 | XMS_ITS | Encounter Summary ---
Author Organization [employer] Address [address] [place] [address] Care Team Providers Care Desktop Support Associate Name Role Phone John Avina DO Primary Care Provider [phone] Encounter Details Date Type Department Care Team (Late st Contact Info) Description 08/14/2024 Lab Requisition [facility] - Main Lab [address] [facility] [place] [address] Lincoln Crespo MD [address] [place] [address] Essential (primary) hypertension; Atherosclerotic heart disease of [place] coronary artery without angina pectoris; Anemia, unspecified [...] Essential (primary) hypertension Atherosclerotic heart disease of [place] coronary artery without angina pectoris Anemia, unspecified COMPREHENSIVE METABOLIC PANEL Routine 08/17/2024 5:41 AM EDT Essential (primary) hypertension Atherosclerotic heart disease of [place] coronary artery without angina pectoris Anemia, unspecified documented in this encounter Results * (ABNORMAL) Comprehensive metabolic panel (08/17/2024 5:41 AM EDT) Sodium 141 133 - 145 mmol/L LAB CHEMISTRY METHOD 08/17/2024 1:27 PM EDT [facility] Potassium 3.8 3.5 - 5.5 mmol/L LAB CHEMISTRY METHOD 08/17/2024 1:27 PM [facility] Chloride 108 96 - 110 mmol/L LAB CHEMISTRY METHOD 08/17/2024 1:27 PM [facility] CO2 23 21 - 32 mmol/L LAB CHEMISTRY METHOD 08/17/2024 1:27 PM [facility] Anion Gap 10 3 - 11 LAB CHEMISTRY METHOD 08/17/2024 1:27 PM [facility] Glucose 69(L) 70 - 100 mg/dL LAB CHEMISTRY METHOD 08/17/2024 1:27 PM [facility] BUN 34(H) 5 - 25 mg/dL LAB CHEMISTRY METHOD 08/17/2024 1:27 PM [facility] Creatinine 1.53(H) 0.50 - 1.10 mg/dL LAB CHEMISTRY METHOD 08/17/2024 1:27 PM [facility] eGFR 35(L) >=60 mL/min/1. 73m2 LAB CHEMISTRY METHOD 08/17/2024 1:27 PM [facility] LAB Comment:Calculation based on the Chronic Kidney Disease Epidemiology Collaboration (CKD-EPI) equation refit without adjustment for race. BUN/Creatinine Ratio 22.2 LAB CHEMISTRY METHOD 08/17/2024 1:27 PM [facility] Calcium 8.7 8.5 - 10.5 mg/dL LAB CHEMISTRY METHOD 08/17/2024 1:27 PM [facility] AST (SGOT) 9(L) 10 - 42 unit/L LAB CHEMISTRY METHOD 08/17/2024 1:27 PM [facility] ALT (SGPT) 8(L) 10 - 60 unit/L LAB CHEMISTRY METHOD 08/17/2024 1:27 PM [facility] Alkaline Phosphatase 67 42 - 121 unit/L LAB CHEMISTRY METHOD 08/17/2024 1:27 PM [facility] Total Protein 5.5(L) 6.0 - 8.0 g/dL LAB CHEMISTRY METHOD 08/17/2024 1:27 PM EDT [facility] Albumin 2.4(L) 3.2 - 5.0 g/dL LAB CHEMISTRY METHOD 08/17/2024 1:27 PM EDT [facility] Total Bilirubin 0.4 0.0 - 1.4 mg/dL LAB CHEMISTRY METHOD 08/17/2024 1:27 PM EDT [facility] LAB Blood Venous blood specimen / Unknown Venipuncture / Unknown 08/17/2024 5:41 AM EDT 08/17/2024 10:15 AM EDT us Lincoln Crespo MD LAB BLOOD ORDERABLES Final Resu lt [facility] [address] [place] [address], * (ABNORMAL) Complete blood count (08/17/2024 5:41 AM EDT) WBC 7.2 4.8 - 10.8 K/mcL LAB HEMETOLOGY METHOD 08/17/2024 11:28 AM [facility] RBC 2.90(L) 3.80 - 4.80 M/mcL LAB HEMETOLOGY METHOD 08/17/2024 11:28 AM EDT [facility] Hemoglobin 9.6(L) 11.5 - 16.0 g/dL LAB HEMETOLOGY METHOD 08/17/2024 11:28 AM EDT [facility] Hematocrit 29.9(L) 35.0 - 47.0 % LAB HEMETOLOGY METHOD 08/17/2024 11:[facility] MCV 103.5(H) 79.0 - 98.0 FL LAB HEMETOLOGY METHOD 08/17/2024 11:28 AM EDT [facility] MCH 33.2(H) 27.0 - 32.0 pcg LAB HEMETOLOGY METHOD 08/17/2024 11:28 AM [facility] MCHC 32.1 32.0 - 37.0 g/dL LAB HEMETOLOGY METHOD 08/17/2024 11:28 AM [facility] RDW 18.2(H) 11.0 - 15.0 % LAB HEMETOLOGY METHOD 08/17/2024 11:28 AM [facility] Platelets 215 130 - 400 K/mcL LAB HEMETOLOGY METHOD 08/17/2024 11:28 AM [facility] MPV 9.2 7.0 - 11.0 FL LAB HEMETOLOGY METHOD 08/17/2024 11:28 AM [facility] NRBC 0.0 <1.0 % LAB HEMETOLOGY METHOD 08/17/2024 11:28 AM [facility] NRBC Absolute 0.00 <0.10 K/mcL LAB HEMETOLOGY METHOD 08/17/2024 11:28 AM [facility] Blood Venous blood specimen / Unknown Venipuncture / Unknown 08/17/2024 5:41 AM EDT 08/17/2024 10:15 AM EDT us Lincoln Crespo MD LAB BLOOD ORDERABLES Final Resu lt [facility] [address] [place] [address], documented in this encounter Visit Diagnoses Diagnosis Essential (primary) hypertension Unspecified essential hypertension Atherosclerotic heart disease of [place] coronary artery without angina pectoris Anemia, unspecified documented in this encounter Care Teams Desktop Support Associate Relationship Specialty Start Date End Date John Avina DO [address] [place] [phone] PCP - General Internal Medicine 06/10/24 documented as of this encounter
--- OUTSIDE RECORDS SUMMARY | 2025-01-13 18:08 | XMS_ITS | Encounter Summary ---
Author Organization [employer] Address [address] [place] [address] Care Team Providers Care Environmental Services Aide Name Role Phone John Avina DO Primary Care Provider [phone] Encounter Details Date Type Department Care Team (Late st Contact Info) Description 08/22/2024 Lab Requisition [facility] - Main Lab [address] [facility] [address] [facility] [place] [address] Lincoln Crespo MD [address] [place] [address] Essential (primary) hypertension; Atherosclerotic heart disease of [place] coronary artery without angina pectoris; Anemia, unspecified [...] Essential (primary) hypertension Atherosclerotic heart disease of [place] coronary artery without angina pectoris Anemia, unspecified COMPREHENSIVE METABOLIC PANEL Routine 08/24/2024 5:46 AM EDT Essential (primary) hypertension Atherosclerotic heart disease of [place] coronary artery without angina pectoris Anemia, unspecified documented in this encounter Results * (ABNORMAL) Comprehensive metabolic panel (08/24/2024 5:46 AM EDT) Sodium 144 133 - 145 mmol/L LAB CHEMISTRY METHOD 08/24/2024 9:15 AM EDT [facility] Potassium 4.0 3.5 - 5.5 mmol/L LAB CHEMISTRY METHOD 08/24/2024 9:15 AM [facility] Chloride 112(H) 96 - 110 mmol/L LAB CHEMISTRY METHOD 08/24/2024 9:15 AM [facility] LAB CO2 23 21 - 32 mmol/L LAB CHEMISTRY METHOD 08/24/2024 9:15 AM [facility] Anion Gap 9 3 - 11 LAB CHEMISTRY METHOD 08/24/2024 9:15 AM [facility] Glucose 82 70 - 100 mg/dL LAB CHEMISTRY METHOD 08/24/2024 9:15 AM [facility] BUN 32(H) 5 - 25 mg/dL LAB CHEMISTRY METHOD 08/24/2024 9:15 AM [facility] Creatinine 1.88(H) 0.50 - 1.10 mg/dL LAB CHEMISTRY METHOD 08/24/2024 9:15 AM [facility] LAB eGFR 27(L) >=60 mL/min/1. 73m2 LAB CHEMISTRY METHOD 08/24/2024 9:15 AM [facility] LAB Comment:Calculation based on the Chronic Kidney Disease Epidemiology Collaboration (CKD-EPI) equation refit without adjustment for race. BUN/Creatinine Ratio 17.0 LAB CHEMISTRY METHOD 08/24/2024 9:15 AM [facility] Calcium 8.8 8.5 - 10.5 mg/dL LAB CHEMISTRY METHOD 08/24/2024 9:15 AM [facility] AST (SGOT) 13 10 - 42 unit/L LAB CHEMISTRY METHOD 08/24/2024 9:15 AM [facility] ALT (SGPT) 17 10 - 60 unit/L LAB CHEMISTRY METHOD 08/24/2024 9:15 AM [facility] Alkaline Phosphatase 69 42 - 121 unit/L LAB CHEMISTRY METHOD 08/24/2024 9:15 AM [facility] Total Protein 5.7(L) 6.0 - 8.0 g/dL LAB CHEMISTRY METHOD 08/24/2024 9:15 AM EDT [facility] LAB Albumin 2.8(L) 3.2 - 5.0 g/dL LAB CHEMISTRY METHOD 08/24/2024 9:15 AM EDT [facility] LAB Total Bilirubin 0.3 0.0 - 1.4 mg/dL LAB CHEMISTRY METHOD 08/24/2024 9:15 AM EDT [facility] LAB Blood Venous blood specimen / Unknown Venipuncture / Unknown 08/24/2024 5:46 AM EDT 08/24/2024 8:26 AM EDT us Lincoln Crespo MD LAB BLOOD ORDERABLES Final Resu lt [facility] [address] [place] [address], [place] [phone] * (ABNORMAL) Complete blood count (08/24/2024 5:46 AM EDT) WBC 6.8 4.8 - 10.8 K/mcL LAB HEMETOLOGY METHOD 08/24/2024 8:45 AM [facility] LAB RBC 2.50(L) 3.80 - 4.80 M/mcL LAB HEMETOLOGY METHOD 08/24/2024 8:45 AM [facility] Hemoglobin 8.6(L) 11.5 - 16.0 g/dL LAB HEMETOLOGY METHOD 08/24/2024 8:45 AM T [facility] LAB Hematocrit 26.2(L) 35.0 - 47.0 % LAB HEMETOLOGY METHOD 08/24/2024 8:45 AM [facility] LAB MCV 103.6(H) 79.0 - 98.0 FL LAB HEMETOLOGY METHOD 08/24/2024 8:45 AM EDT [facility] LAB MCH 34.0(H) 27.0 - 32.0 pcg LAB HEMETOLOGY METHOD 08/24/2024 8:45 AM EDT [facility] LAB MCHC 32.8 32.0 - 37.0 g/dL LAB HEMETOLOGY METHOD 08/24/2024 8:45 AM EDT [facility] LAB RDW 18.7(H) 11.0 - 15.0 % LAB HEMETOLOGY METHOD 08/24/2024 8:45 AM EDT [facility] LAB Platelets 192 130 - 400 K/mcL LAB HEMETOLOGY METHOD 08/24/2024 8:45 AM EDT [facility] MPV 9.3 7.0 - 11.0 FL LAB HEMETOLOGY METHOD 08/24/2024 8:45 AM EDT [facility] NRBC 0.0 <1.0 % LAB HEMETOLOGY METHOD 08/24/2024 8:45 AM EDT [facility] LAB NRBC Absolute 0.00 <0.10 K/mcL LAB HEMETOLOGY METHOD 08/24/2024 8:45 AM EDT [facility] LAB Blood Venous blood specimen / Unknown Venipuncture / Unknown 08/24/2024 5:46 AM EDT 08/24/2024 8:32 AM EDT us Lincoln Crespo MD LAB BLOOD ORDERABLES Final Resu lt [facility] [address] [place] [address], [place] [phone] documented in this encounter Visit Diagnoses Diagnosis Essential (primary) hypertension Unspecified essential hypertension Atherosclerotic heart disease of [place] coronary artery without angina pectoris Anemia, unspecified documented in this encounter Care Teams Environmental Services Aide Relationship Specialty Start Date End Date John Avina DO [address] [place] [phone] PCP - General Internal Medicine 06/10/24 documented as of this encounter
--- OUTSIDE RECORDS SUMMARY | 2025-01-13 18:08 | XMS_ITS | Encounter Summary ---
Author Organization [employer] Address [address] [place] [address] Care Team Providers Care Care Coordinator Name Role Phone John Avina DO Primary Care Provider [phone] Encounter Details Date Type Department Care Team (Late st Contact Info) Description 09/05/2024 Lab Requisition [facility] - Main Lab 299 [facility] [place] [address] [place] Crespo MD [address] [place] [address] Essential (primary) hypertension; Atherosclerotic heart disease of [place] coronary artery without angina pectoris; Anemia, unspecified [...] Essential (primary) hypertension Atherosclerotic heart disease of [place] coronary artery without angina pectoris Anemia, unspecified COMPREHENSIVE METABOLIC PANEL Routine 09/07/2024 5:11 AM EDT Essential (primary) hypertension Atherosclerotic heart disease of [place] coronary artery without angina pectoris Anemia, unspecified documented in this encounter Results * (ABNORMAL) Comprehensive metabolic panel (09/07/2024 5:11 AM EDT) Sodium 144 133 - 145 mmol/L LAB CHEMISTRY METHOD 09/07/2024 2:49 PM EDT [facility] Potassium 3.9 3.5 - 5.5 mmol/L LAB CHEMISTRY METHOD 09/07/2024 2:49 PM [facility] Chloride 109 96 - 110 mmol/L LAB CHEMISTRY METHOD 09/07/2024 2:49 PM [facility] CO2 23 21 - 32 mmol/L LAB CHEMISTRY METHOD 09/07/2024 2:49 PM [facility] LAB Anion Gap 12(H) 3 - 11 LAB CHEMISTRY METHOD 09/07/2024 2:49 PM [facility] LAB Glucose 77 70 - 100 mg/dL LAB CHEMISTRY METHOD 09/07/2024 2:49 PM [facility] LAB BUN 48(H) 5 - 25 mg/dL LAB CHEMISTRY METHOD 09/07/2024 2:49 PM [facility] LAB Creatinine 1.93(H) 0.50 - 1.10 mg/dL LAB CHEMISTRY METHOD 09/07/2024 2:49 PM [facility] LAB eGFR 26(L) >=60 mL/min/1. 73m2 LAB CHEMISTRY METHOD 09/07/2024 2:49 PM [facility] LAB Comment:Calculation based on the Chronic Kidney Disease Epidemiology Collaboration (CKD-EPI) equation refit without adjustment for race. BUN/Creatinine Ratio 24.9 LAB CHEMISTRY METHOD 09/07/2024 2:49 PM [facility] LAB Calcium 8.9 8.5 - 10.5 mg/dL LAB CHEMISTRY METHOD 09/07/2024 2:49 PM [facility] LAB AST (SGOT) 6(L) 10 - 42 unit/L LAB CHEMISTRY METHOD 09/07/2024 2:49 PM [facility] LAB ALT (SGPT) 14 10 - 60 unit/L LAB CHEMISTRY METHOD 09/07/2024 2:49 PM [facility] LAB Alkaline Phosphatase 61 42 - 121 unit/L LAB CHEMISTRY METHOD 09/07/2024 2:49 PM [facility] LAB Total Protein 6.1 6.0 - 8.0 g/dL LAB CHEMISTRY METHOD 09/07/2024 2:49 PM EDT [facility] LAB Albumin 3.0(L) 3.2 - 5.0 g/dL LAB CHEMISTRY METHOD 09/07/2024 2:49 PM EDT [facility] LAB Total Bilirubin 0.5 0.0 - 1.4 mg/dL LAB CHEMISTRY METHOD 09/07/2024 2:49 PM EDT [facility] LAB Blood Venous blood specimen / Unknown Venipuncture / Unknown 09/07/2024 5:11 AM EDT 09/07/2024 2:11 PM EDT us [place] Crespo MD LAB BLOOD ORDERABLES Final Resu lt [facility] [address] [place] [address], [place] [phone] * (ABNORMAL) Complete blood count (09/07/2024 5:11 AM EDT) WBC 5.1 4.8 - 10.8 K/mcL LAB HEMETOLOGY METHOD 09/07/2024 3:07 PM EDT [facility] LAB RBC 2.40(L) 3.80 - 4.80 M/mcL LAB HEMETOLOGY METHOD 09/07/2024 3:07 PM EDT [facility] LAB Hemoglobin 8.2(L) 11.5 - 16.0 g/dL LAB HEMETOLOGY METHOD 09/07/2024 3:07 PM EDT [facility] LAB Hematocrit 25.9(L) 35.0 - 47.0 % LAB HEMETOLOGY METHOD 09/07/2024 3:07 PM EDT [facility] LAB MCV 107.9(H) 79.0 - 98.0 FL LAB HEMETOLOGY METHOD 09/07/2024 3:07 PM EDT [facility] LAB MCH 34.2(H) 27.0 - 32.0 pcg LAB HEMETOLOGY METHOD 09/07/2024 3:07 PM EDT [facility] LAB MCHC 31.7(L) 32.0 - 37.0 g/dL LAB HEMETOLOGY METHOD 09/07/2024 3:07 PM EDT [facility] LAB RDW 19.3(H) 11.0 - 15.0 % LAB HEMETOLOGY METHOD 09/07/2024 3:07 PM EDT [facility] LAB Platelets 176 130 - 400 K/mcL LAB HEMETOLOGY METHOD 09/07/2024 3:07 PM EDT [facility] LAB MPV 9.0 7.0 - 11.0 FL LAB HEMETOLOGY METHOD 09/07/2024 3:07 PM EDT [facility] LAB NRBC 0.0 <1.0 % LAB HEMETOLOGY METHOD 09/07/2024 3:07 PM EDT [facility] LAB NRBC Absolute 0.00 <0.10 K/mcL LAB HEMETOLOGY METHOD 09/07/2024 3:07 PM EDT [facility] LAB Blood Venous blood specimen / Unknown Venipuncture / Unknown 09/07/2024 5:11 AM EDT 09/07/2024 12:03 PM EDT us [place] Crespo MD LAB BLOOD ORDERABLES Final Resu lt [facility] LAB [address] [place] [address], [place] [phone] documented in this encounter Visit Diagnoses Diagnosis Essential (primary) hypertension Unspecified essential hypertension Atherosclerotic heart disease of [place] coronary artery without angina pectoris Anemia, unspecified documented in this encounter Care Teams Care Coordinator Relationship Specialty Start Date End Date John Avina DO [address] [place] [phone] PCP - General Internal Medicine 06/10/24 documented as of this encounter
--- OUTSIDE RECORDS SUMMARY | 2025-01-13 18:08 | XMS_ITS | Encounter Summary ---
Author Organization [employer] Address [address] [place] [address] Care Team Providers Care Senior Oracle Applications Developer Name Role Phone John Avina DO Primary Care Provider [phone] Encounter Details Date Type Department Care Team (Late st Contact Info) Description 08/30/2024 Lab Requisition [facility] - Main Lab 299 [facility] [place] [address] [place] Crespo MD [address] [place] [address] Essential (primary) hypertension; Atherosclerotic heart disease of [place] coronary artery without angina pectoris; Anemia, unspecified [...] Essential (primary) hypertension Atherosclerotic heart disease of [place] coronary artery without angina pectoris Anemia, unspecified COMPREHENSIVE METABOLIC PANEL Routine 08/31/2024 5:18 AM EDT Essential (primary) hypertension Atherosclerotic heart disease of [place] coronary artery without angina pectoris Anemia, unspecified documented in this encounter Results * (ABNORMAL) Comprehensive metabolic panel (08/31/2024 5:18 AM EDT) Sodium 141 133 - 145 mmol/L LAB CHEMISTRY METHOD 08/31/2024 1:17 PM EDT [facility] Potassium 4.7 3.5 - 5.5 mmol/L LAB CHEMISTRY METHOD 08/31/2024 1:17 PM [facility] LAB Comment:Hemolysis present Chloride 110 96 - 110 mmol/L LAB CHEMISTRY METHOD 08/31/2024 1:17 PM [facility] LAB CO2 15(L) 21 - 32 mmol/L LAB CHEMISTRY METHOD 08/31/2024 1:17 PM [facility] LAB Anion Gap 16(H) 3 - 11 LAB CHEMISTRY METHOD 08/31/2024 1:17 PM [facility] LAB Glucose 67(L) 70 - 100 mg/dL LAB CHEMISTRY METHOD 08/31/2024 1:17 PM [facility] LAB BUN 49(H) 5 - 25 mg/dL LAB CHEMISTRY METHOD 08/31/2024 1:17 PM [facility] LAB Creatinine 1.99(H) 0.50 - 1.10 mg/dL LAB CHEMISTRY METHOD 08/31/2024 1:17 PM [facility] LAB eGFR 25(L) >=60 mL/min/1. 73m2 LAB CHEMISTRY METHOD 08/31/2024 1:17 PM [facility] LAB Comment:Calculation based on the Chronic Kidney Disease Epidemiology Collaboration (CKD-EPI) equation refit without adjustment for race. BUN/Creatinine Ratio 24.6 LAB CHEMISTRY METHOD 08/31/2024 1:17 PM [facility] LAB Calcium 9.1 8.5 - 10.5 mg/dL LAB CHEMISTRY METHOD 08/31/2024 1:17 PM [facility] LAB AST (SGOT) 14 10 - 42 unit/L LAB CHEMISTRY METHOD 08/31/2024 1:17 PM [facility] LAB ALT (SGPT) 18 10 - 60 unit/L LAB CHEMISTRY METHOD 08/31/2024 1:17 PM [facility] LAB Alkaline Phosphatase 70 42 - 121 unit/L LAB CHEMISTRY METHOD 08/31/2024 1:17 PM EDT [facility] LAB Total Protein 6.6 6.0 - 8.0 g/dL LAB CHEMISTRY METHOD 08/31/2024 1:17 PM EDT [facility] LAB Albumin 3.1(L) 3.2 - 5.0 g/dL LAB CHEMISTRY METHOD 08/31/2024 1:17 PM EDT [facility] LAB Total Bilirubin 0.4 0.0 - 1.4 mg/dL LAB CHEMISTRY METHOD 08/31/2024 1:17 PM EDT [facility] LAB Blood Venous blood specimen / Unknown 08/31/2024 5:18 AM EDT 08/31/2024 11:34 AM EDT [facility] LAB - 08/31/2024 1:17 PM EDT Short sample, interpret results with caution us [place] Crespo MD LAB BLOOD ORDERABLES Final Resu lt [facility] [address] [place] [address], [place] [phone] * (ABNORMAL) Complete blood count (08/31/2024 5:18 AM EDT) WBC 5.2 4.8 - 10.8 K/mcL LAB HEMETOLOGY METHOD 08/31/2024 1:43 PM EDT [facility] LAB RBC 2.50(L) 3.80 - 4.80 M/mcL LAB HEMETOLOGY METHOD 08/31/2024 1:43 PM EDT [facility] LAB Hemoglobin 8.6(L) 11.5 - 16.0 g/dL LAB HEMETOLOGY METHOD 08/31/2024 1:43 PM EDT [facility] LAB Hematocrit 27.1(L) 35.0 - 47.0 % LAB HEMETOLOGY METHOD 08/31/2024 1:43 PM EDT [facility] MCV 106.7(H) 79.0 - 98.0 FL LAB HEMETOLOGY METHOD 08/31/2024 1:43 PM EDT [facility] MCH 33.9(H) 27.0 - 32.0 pcg LAB HEMETOLOGY METHOD 08/31/2024 1:43 PM EDT [facility] MCHC 31.7(L) 32.0 - 37.0 g/dL LAB HEMETOLOGY METHOD 08/31/2024 1:43 PM EDT [facility] RDW 19.2(H) 11.0 - 15.0 % LAB HEMETOLOGY METHOD 08/31/2024 1:43 PM EDT [facility] Platelets 223 130 - 400 K/mcL LAB HEMETOLOGY METHOD 08/31/2024 1:43 PM EDT [facility] MPV 9.6 7.0 - 11.0 FL LAB HEMETOLOGY METHOD 08/31/2024 1:43 PM EDT [facility] NRBC 0.0 <1.0 % LAB HEMETOLOGY METHOD 08/31/2024 1:43 PM EDT [facility] NRBC Absolute 0.00 <0.10 K/mcL LAB HEMETOLOGY METHOD 08/31/2024 1:43 PM EDT [facility] LAB Blood Venous blood specimen / Unknown 08/31/2024 5:18 AM EDT 08/31/2024 11:31 AM EDT us [place] Crespo MD LAB BLOOD ORDERABLES Final Resu lt [facility] [address] [place] [address], documented in this encounter Visit Diagnoses Diagnosis Essential (primary) hypertension Unspecified essential hypertension Atherosclerotic heart disease of [place] coronary artery without angina pectoris Anemia, unspecified documented in this encounter Care Teams Senior Oracle Applications Developer Relationship Specialty Start Date End Date John Avina DO [address] [place] [phone] PCP - General Internal Medicine 06/10/24 documented as of this encounter
--- OUTSIDE RECORDS SUMMARY | 2025-01-13 18:08 | XMS_ITS | Encounter Summary ---
Author Organization [employer] Address [address] [place] [address] Care Team Providers Care [employer]cher [employer] Name Role Phone John Avina DO Primary Care Provider [phone] Encounter Details Date Type Department Care Team (Late st Contact Info) Description 09/16/2024 Lab Requisition [facility] - Main Lab 299 [facility] [place] [address] [place] Crespo MD [address] [place] [address] Essential (primary) hypertension; Atherosclerotic heart disease of [place] coronary artery without angina pectoris; Anemia, unspecified; [...] Essential (primary) hypertension Atherosclerotic heart disease of [place] coronary artery without angina pectoris Anemia, unspecified Chronic kidney disease, unspecified BASIC METABOLIC PANEL Routine 09/17/2024 8:40 AM EDT Essential (primary) hypertension Atherosclerotic heart disease of [place] coronary artery without angina pectoris Anemia, unspecified [...] mg/dL LAB CHEMISTRY METHOD 09/17/2024 11:11 AM [facility] BUN 49(H) 5 - 25 mg/dL LAB CHEMISTRY METHOD 09/17/2024 11:11 AM [facility] LAB Creatinine 1.74(H) 0.50 - 1.10 mg/dL LAB CHEMISTRY METHOD 09/17/2024 11:11 AM [facility] LAB eGFR 30(L) >=60 mL/min/1. 73m2 LAB CHEMISTRY METHOD 09/17/2024 11:11 AM [facility] LAB Comment:Calculation based on the Chronic Kidney Disease Epidemiology Collaboration (CKD-EPI) equation refit without adjustment for race. BUN/Creatinine Ratio 28.2 LAB CHEMISTRY METHOD 09/17/2024 11:11 AM [facility] LAB Calcium 9.3 8.5 - 10.5 mg/dL LAB CHEMISTRY METHOD 09/17/2024 11:11 AM [facility] LAB Blood Venous blood specimen / Unknown Venipuncture / Unknown 09/17/2024 8:40 AM EDT 09/17/2024 10:05 AM EDT us [place] Crespo MD LAB BLOOD ORDERABLES Final Resu lt [facility] [address] [place] [address], * (ABNORMAL) Complete blood count (09/17/2024 8:40 AM EDT) [facility] WBC 6.5 4.8 - 10.8 K/mcL LAB HEMETOLOGY METHOD 09/17/2024 10:30 AM EDT [facility] LAB RBC 2.70(L) 3.80 - 4.80 M/mcL LAB HEMETOLOGY METHOD 09/17/2024 10:30 AM EDT [facility] Hemoglobin 9.4(L) 11.5 - 16.0 g/dL LAB HEMETOLOGY METHOD 09/17/2024 10:30 AM [facility] Hematocrit 28.1(L) 35.0 - 47.0 % LAB HEMETOLOGY METHOD 09/17/2024 10:30 AM [facility] MCV 106.0(H) 79.0 - 98.0 FL LAB HEMETOLOGY METHOD 09/17/2024 10:[facility] MCH 35.5(H) 27.0 - 32.0 pcg LAB HEMETOLOGY METHOD 09/17/2024 10:30 AM [facility] MCHC 33.5 32.0 - 37.0 g/dL LAB HEMETOLOGY METHOD 09/17/2024 10:30 AM [facility] RDW 18.7(H) 11.0 - 15.0 % LAB HEMETOLOGY METHOD 09/17/2024 10:30 [facility] Platelets 183 130 - 400 K/mcL LAB HEMETOLOGY METHOD 09/17/2024 10:30 AM [facility] MPV 9.4 7.0 - 11.0 FL LAB HEMETOLOGY METHOD 09/17/2024 10:30 AM EDT [facility] NRBC 0.0 <1.0 % LAB HEMETOLOGY METHOD 09/17/2024 10:30 AM EDT [facility] NRBC Absolute 0.00 <0.10 K/mcL LAB HEMETOLOGY METHOD 09/17/2024 10:30 AM EDT [facility] Blood Venous blood specimen / Unknown Venipuncture / Unknown 09/17/2024 8:40 AM EDT 09/17/2024 10:05 AM EDT us [place] Crespo MD LAB BLOOD ORDERABLES Final Resu lt [facility] [address] [place] [address], documented in this encounter Visit Diagnoses Diagnosis Essential (primary) hypertension Unspecified essential hypertension Atherosclerotic heart disease of [place] coronary artery without angina pectoris Anemia, unspecified Chronic kidney disease, unspecified documented in this encounter Care Teams [employer] Relationship Specialty Start Date End Date John Avina DO [address] [place] [phone] PCP - General Internal Medicine 06/10/24 documented as of this encounter
--- OUTSIDE RECORDS SUMMARY | 2025-01-13 18:08 | XMS_ITS | Encounter Summary ---
Author Organization [facility] [facility] Address [address] [place] [address] Care Team Providers Care International Recruiter Name Role Phone John Avina DO Primary Care Provider [phone] Encounter Details Date Type Department Care Team (Late st Contact Info) Description 09/14/[address] [facility] - Main Lab 299 [facility] [place] [address] [place] Crespo MD [address] [place] [address] Essential (primary) hypertension; Atherosclerotic heart disease of [place] coronary artery without angina pectoris; Anemia, unspecified [...] Essential (primary) hypertension Atherosclerotic heart disease of [place] coronary artery without angina pectoris Anemia, unspecified COMPREHENSIVE METABOLIC PANEL Routine 09/15/2024 7:05 AM EDT Essential (primary) hypertension Atherosclerotic heart disease of [place] coronary artery without angina pectoris Anemia, unspecified documented in this encounter Results * (ABNORMAL) Complete blood count (09/15/2024 7:07 AM EDT) WBC 5.1 4.8 - 10.8 K/mcL LAB HEMETOLOGY METHOD 09/15/2024 12:07 PM EDT [facility] RBC 2.30(L) 3.80 - 4.80 M/mcL LAB HEMETOLOGY METHOD 09/15/2024 12:07 PM [facility] LAB Hemoglobin 8.0(L) 11.5 - 16.0 g/dL LAB HEMETOLOGY METHOD 09/15/2024 12:07 PM [facility] LAB Hematocrit 24.4(L) 35.0 - 47.0 % LAB HEMETOLOGY METHOD 09/15/2024 12:07 PM [facility] LAB MCV 107.0(H) 79.0 - 98.0 FL LAB HEMETOLOGY METHOD 09/15/2024 12:07 PM [facility] LAB MCH 35.1(H) 27.0 - 32.0 pcg LAB HEMETOLOGY METHOD 09/15/2024 12:07 PM [facility] LAB MCHC 32.8 32.0 - 37.0 g/dL LAB HEMETOLOGY METHOD 09/15/2024 12:07 PM [facility] LAB RDW 19.0(H) 11.0 - 15.0 % LAB HEMETOLOGY METHOD 09/15/2024 12:07 PM [facility] LAB Platelets 141 130 - 400 K/mcL LAB HEMETOLOGY METHOD 09/15/2024 12:07 PM [facility] LAB MPV 9.2 7.0 - 11.0 FL LAB HEMETOLOGY METHOD 09/15/2024 12:07 PM [facility] LAB NRBC 0.0 <1.0 % LAB HEMETOLOGY METHOD 09/15/2024 12:07 PM [facility] LAB NRBC Absolute 0.00 <0.10 K/mcL LAB HEMETOLOGY METHOD 09/15/2024 12:07 PM [facility] LAB Blood Venous blood specimen / Unknown Venipuncture / Unknown 09/15/2024 7:07 AM EDT 09/15/2024 10:49 AM EDT us [place] Crespo MD LAB BLOOD ORDERABLES Final Resu lt [facility] [address] [place] [address], [place] [phone] * (ABNORMAL) Comprehensive metabolic panel (09/15/2024 7:05 AM EDT) Sodium 143 133 - 145 mmol/L LAB CHEMISTRY METHOD 09/15/2024 12:43 PM [facility] LAB Potassium 3.6 3.5 - 5.5 mmol/L LAB CHEMISTRY METHOD 09/15/2024 12:43 PM [facility] LAB Chloride 110 96 - 110 mmol/L LAB CHEMISTRY METHOD 09/15/2024 12:43 PM [facility] LAB CO2 22 21 - 32 mmol/L LAB CHEMISTRY METHOD 09/15/2024 12:43 PM [facility] Anion Gap 11 3 - 11 LAB CHEMISTRY METHOD 09/15/2024 12:43 PM [facility] LAB Glucose 90 70 - 100 mg/dL LAB CHEMISTRY METHOD 09/15/2024 12:43 PM [facility] BUN 49(H) 5 - 25 mg/dL LAB CHEMISTRY METHOD 09/15/2024 12:43 PM [facility] LAB Creatinine 1.80(H) 0.50 - 1.10 mg/dL LAB CHEMISTRY METHOD 09/15/2024 12:43 PM [facility] LAB eGFR 29(L) >=60 mL/min/1. 73m2 LAB CHEMISTRY METHOD 09/15/2024 12:43 PM [facility] LAB Comment:Calculation based on the Chronic Kidney Disease Epidemiology Collaboration (CKD-EPI) equation refit without adjustment for race. BUN/Creatinine Ratio 27.2 LAB CHEMISTRY METHOD 09/15/2024 12:43 PM EDT [facility] Calcium 8.9 8.5 - 10.5 mg/dL LAB CHEMISTRY METHOD 09/15/2024 12:43 PM T [facility] AST (SGOT) 6(L) 10 - 42 unit/L LAB CHEMISTRY METHOD 09/15/2024 12:43 PM [facility] ALT (SGPT) 15 10 - 60 unit/L LAB CHEMISTRY METHOD 09/15/2024 12:43 PM T [facility] LAB Alkaline Phosphatase 56 42 - 121 unit/L LAB CHEMISTRY METHOD 09/15/2024 12:43 PM [facility] LAB Total Protein 6.0 6.0 - 8.0 g/dL LAB CHEMISTRY METHOD 09/15/2024 12:43 PM [facility] LAB Albumin 3.0(L) 3.2 - 5.0 g/dL LAB CHEMISTRY METHOD 09/15/2024 12:43 PM [facility] Total Bilirubin 0.5 0.0 - 1.4 mg/dL LAB CHEMISTRY METHOD 09/15/2024 12:43 PM [facility] LAB Blood Venous blood specimen / Unknown Venipuncture / Unknown 09/15/2024 7:05 AM EDT 09/15/2024 10:50 AM EDT us [place] Crespo MD LAB BLOOD ORDERABLES Final Resu lt [facility] [address] [place] [address], documented in this encounter Visit Diagnoses Diagnosis Essential (primary) hypertension Unspecified essential hypertension Atherosclerotic heart disease of [place] coronary artery without angina pectoris Anemia, unspecified documented in this encounter Care Teams International Recruiter Relationship Specialty Start Date End Date John Avina DO [address] [place] [phone] PCP - General Internal Medicine 06/10/24 documented as of this encounter
--- OUTSIDE RECORDS SUMMARY | 2025-01-13 18:08 | XMS_ITS | Encounter Summary ---
Author Organization [facility] Address [address] [place] [address] Care Team Providers Care Cut File Clerk Name Role Phone John Avina DO Primary Care Provider [phone] Encounter Details Date Type Department Care Team (Late st Contact Info) Description 08/16/2024 Lab Requisition [facility] - Main Lab 299 [facility] [place] [address] [place] Crespo MD [address] [place] [address] Other ulcerative colitis with rectal [...] AM EDT) WBC 7.2 4.8 - 10.8 [facility] LAB HEMETOLOGY METHOD 08/16/2024 10:41 AM EDT [facility] RBC 2.90(L) 3.80 - 4.80 M/[facility] LAB HEMETOLOGY METHOD 08/16/2024 10:41 AM [facility] [...] MD LAB BLOOD ORDERABLES Final Resu [facility] [address] [place] [address], documented in this encounter Visit Diagnoses Diagnosis Other ulcerative colitis with rectal bleeding (CMS/HCC V24, CMS/HCC V28) Anemia in chronic kidney disease (CODE) documented in this encounter Care Teams Cut File Clerk Relationship Specialty Start Date End Date John Avina DO [address] [place] [phone] PCP - General Internal Medicine 06/10/24 documented as of this encounter
--- OUTSIDE RECORDS SUMMARY | 2025-01-13 18:08 | XMS_ITS | Encounter Summary ---
Author Organization [facility] Address [address] [place] [phone] Care Team Providers Care Cyber Policy And Strategy Planner Name Role Phone John Avina DO Primary Care Provider [phone] Encounter Details Date Type Department Care Team (Late st Contact Info) Description 08/12/2024 Lab Requisition [facility] - Main Lab [address] [facility] [place] [address] Lincoln Crespo MD [address] [place] [address] Essential (primary) hypertension; Atherosclerotic heart disease of [place] coronary artery without angina pectoris; Anemia, unspecified; [...] Essential (primary) hypertension Atherosclerotic heart disease of [place] coronary artery without angina pectoris Anemia, unspecified Chronic kidney disease, unspecified Hypothyroidism, unspecified Hyperlipidemia, unspecified COMPREHENSIVE METABOLIC PANEL Routine 08/12/2024 4:49 AM EDT Essential (primary) hypertension Atherosclerotic heart disease of [place] coronary artery without angina pectoris Anemia, unspecified Chronic kidney disease, unspecified Hypothyroidism, unspecified Hyperlipidemia, unspecified documented in this encounter Results * (ABNORMAL) Comprehensive metabolic panel (08/12/2024 4:49 AM EDT) Sodium 140 133 - 145 mmol/L LAB CHEMISTRY METHOD 08/12/2024 11:43 AM [facility] Potassium 4.4 3.5 - 5.5 mmol/L LAB CHEMISTRY METHOD 08/12/2024 11:43 AM [facility] Chloride 104 96 - 110 mmol/L LAB CHEMISTRY METHOD 08/12/2024 11:43 AM [facility] CO2 30 21 - 32 mmol/L LAB CHEMISTRY METHOD 08/12/2024 11:43 AM [facility] Anion Gap 6 3 - 11 LAB CHEMISTRY METHOD 08/12/2024 11:43 AM [facility] Glucose 81 70 - 100 mg/dL LAB CHEMISTRY METHOD 08/12/2024 11:43 AM [facility] BUN 35(H) 5 - 25 mg/dL LAB CHEMISTRY METHOD 08/12/2024 11:43 AM [facility] Creatinine 1.81(H) 0.50 - 1.10 mg/dL LAB CHEMISTRY METHOD 08/12/2024 11:43 AM [facility] eGFR 29(L) >=60 mL/min/1. 73m2 LAB CHEMISTRY METHOD 08/12/2024 11:43 AM [facility] Comment:Calculation based on the Chronic Kidney Disease Epidemiology Collaboration (CKD-EPI) equation refit without adjustment for race. BUN/Creatinine Ratio 19.3 LAB CHEMISTRY METHOD 08/12/2024 11:43 AM [facility] Calcium 8.3(L) 8.5 - 10.5 mg/dL LAB CHEMISTRY METHOD 08/12/2024 11:43 AM [facility] AST (SGOT) 7(L) 10 - 42 unit/L LAB CHEMISTRY METHOD 08/12/2024 11:43 AM [facility] ALT (SGPT) 7(L) 10 - 60 unit/L LAB CHEMISTRY METHOD 08/12/2024 11:43 AM EDT [facility] Alkaline Phosphatase 65 42 - 121 unit/L LAB CHEMISTRY METHOD 08/12/2024 11:43 AM T [facility] Total Protein 5.5(L) 6.0 - 8.0 g/dL LAB CHEMISTRY METHOD 08/12/2024 11:43 AM [facility] Albumin 2.3(L) 3.2 - 5.0 g/dL LAB CHEMISTRY METHOD 08/12/2024 11:43 AM T [facility] Total Bilirubin 0.5 0.0 - 1.4 mg/dL LAB CHEMISTRY METHOD 08/12/2024 11:43 AM [facility] Blood Venous blood specimen / Unknown Venipuncture / Unknown 08/12/2024 4:49 AM EDT 08/12/2024 10:25 AM EDT Lincoln Crespo MD LAB BLOOD ORDERABLES Final Resu lt [facility] [address] [place] [address], * (ABNORMAL) Complete blood count (08/12/2024 4:49 AM EDT) WBC 6.8 4.8 - 10.8 K/mcL LAB HEMETOLOGY METHOD 08/12/2024 11:01 AM [facility] RBC 2.20(L) 3.80 - 4.80 M/mcL LAB HEMETOLOGY METHOD 08/12/2024 11:01 AM [facility] Hemoglobin 7.4(L) 11.5 - 16.0 g/dL LAB HEMETOLOGY METHOD 08/12/2024 11:01 AM [facility] Hematocrit 23.3(L) 35.0 - 47.0 % LAB HEMETOLOGY METHOD 08/12/2024 11:01 AM EDT [facility] MCV 108.4(H) 79.0 - 98.0 FL LAB HEMETOLOGY METHOD 08/12/2024 11:01 AM EDT [facility] MCH 34.4(H) 27.0 - 32.0 pcg LAB HEMETOLOGY METHOD 08/12/2024 [facility] MCHC 31.8(L) 32.0 - 37.0 g/dL LAB HEMETOLOGY METHOD 08/12/2024 11:01 AM EDT [facility] RDW 17.7(H) 11.0 - 15.0 % LAB HEMETOLOGY METHOD 08/12/2024 11:01 [facility] Platelets 203 130 - 400 K/mcL LAB HEMETOLOGY METHOD 08/12/2024 11:01 AM [facility] MPV 9.8 7.0 - 11.0 FL LAB HEMETOLOGY METHOD 08/12/2024 11:01 [facility] NRBC 0.0 <1.0 % LAB HEMETOLOGY METHOD 08/12/2024 11:01 [facility] NRBC Absolute 0.00 <0.10 K/mcL LAB HEMETOLOGY METHOD 08/12/2024 11:01 AM [facility] Blood Venous blood specimen / Unknown Venipuncture / Unknown 08/12/2024 4:49 AM EDT 08/12/2024 10:25 AM EDT us Lincoln Crespo MD LAB BLOOD ORDERABLES Final Resu lt [facility] [address] [place] [address], [place] [phone] documented in this encounter Visit Diagnoses Diagnosis Essential (primary) hypertension Unspecified essential hypertension Atherosclerotic heart disease of [place] coronary artery without angina pectoris Anemia, unspecified Chronic kidney disease, unspecified Hypothyroidism, unspecified Hyperlipidemia, unspecified documented in this encounter Care Teams Cyber Policy And Strategy Planner Relationship Specialty Start Date End Date John Avina DO [address] [place] [phone] PCP - General Internal Medicine 06/10/24 documented as of this encounter
== END 2025-01-13 16:28 | disposition home or self-care (01) ==
LOC: HO.MRI 16:27
PROVIDERS: PCP Internal Medicine; Visit Provider Nurse Practitioner Family
DX: M51.369 Other intervertebral disc degeneration, lumbar region without mention of lumbar back pain or lower extremity pain (principal); M41.9 Scoliosis, unspecified; M54.16 Radiculopathy, lumbar region; M47.816 Spondylosis without myelopathy or radiculopathy, lumbar region
CPT/HCPCS: 72148

== ENCOUNTER → 2025-01-13 16:37 | Outpatient (BNV) | payer MEDICARE, SELFPAY | PROVIDERS: PCP Internal Medicine; Visit Provider Radiology Diagnostic Radiology | DX: M48.061 Spinal stenosis, lumbar region without neurogenic claudication (principal) | CPT/HCPCS: 72148 ==

== ENCOUNTER 2025-01-19 12:18 | Outpatient (REF) | payer MEDICARE, SELFPAY ==
--- OUTSIDE RECORDS SUMMARY | 2025-01-19 13:24 | XMS_ITS | Encounter Summary ---
Author Organization [facility] Address [address] [place] [address] Care Team Providers Care Double Spindle Shaper Operator Name Role Phone John Avina DO Primary Care Provider [phone] Encounter Details Date Type Department Care Team (Late st Contact Info) Description 08/22/2024 Lab Requisition [facility] - Main Lab [address] [facility] [place] [address] Lincoln Crespo MD [address] [place] [address] Essential (primary) hypertension; Atherosclerotic heart disease of [place] coronary artery without angina pectoris; Anemia, unspecified [...] (primary) hypertension Atherosclerotic heart disease of [place] coronary artery without angina pectoris Anemia, unspecified COMPREHENSIVE METABOLIC PANEL Routine 08/24/2024 5:46 AM EDT Essential (primary) hypertension Atherosclerotic heart disease of [place] coronary artery without angina pectoris Anemia, unspecified documented in this encounter Results * (ABNORMAL) Comprehensive metabolic panel (08/24/2024 5:46 AM EDT) Sodium 144 133 - 145 mmol/L LAB CHEMISTRY METHOD 08/24/2024 9:15 AM EDT [facility] Potassium 4.0 3.5 - 5.5 mmol/L LAB CHEMISTRY METHOD 08/24/2024 9:15 AM [facility] Chloride 112(H) 96 - 110 mmol/L LAB CHEMISTRY METHOD 08/24/2024 9:15 AM [facility] CO2 23 21 - 32 mmol/L LAB CHEMISTRY METHOD 08/24/2024 9:15 AM [facility] Anion Gap 9 3 - 11 LAB CHEMISTRY METHOD 08/24/2024 9:15 AM [facility] Glucose 82 70 - 100 mg/dL LAB CHEMISTRY METHOD 08/24/2024 9:15 AM [facility] BUN 32(H) 5 - 25 mg/dL LAB CHEMISTRY METHOD 08/24/2024 9:15 AM [facility] Creatinine 1.88(H) 0.50 - 1.10 mg/dL LAB CHEMISTRY METHOD 08/24/2024 9:15 AM [facility] eGFR 27(L) >=60 mL/min/1. 73m2 LAB CHEMISTRY METHOD 08/24/2024 9:15 AM [facility] Comment:Calculation based on the Chronic Kidney Disease Epidemiology Collaboration (CKD-EPI) equation refit without adjustment for race. BUN/Creatinine Ratio 17.0 LAB CHEMISTRY METHOD 08/24/2024 9:15 AM [facility] Calcium 8.8 8.5 - 10.5 mg/dL LAB CHEMISTRY METHOD 08/24/2024 9:15 AM [facility] AST (SGOT) 13 10 - 42 unit/L LAB CHEMISTRY METHOD 08/24/2024 9:15 AM [facility] ALT (SGPT) 17 10 - 60 unit/L LAB CHEMISTRY METHOD 08/24/2024 9:15 AM [facility] Alkaline Phosphatase 69 42 - 121 unit/L LAB CHEMISTRY METHOD 08/24/2024 9:15 AM [facility] Total Protein 5.7(L) 6.0 - 8.0 g/dL LAB CHEMISTRY METHOD 08/24/2024 9:15 AM EDT [facility] Albumin 2.8(L) 3.2 - 5.0 g/dL LAB CHEMISTRY METHOD 08/24/2024 9:15 AM EDT [facility] Total Bilirubin 0.3 0.0 - 1.4 mg/dL LAB CHEMISTRY METHOD 08/24/2024 9:15 AM EDT [facility] Blood Venous blood specimen / Unknown Venipuncture / Unknown 08/24/2024 5:46 AM EDT 08/24/2024 8:26 AM EDT us Lincoln Crespo MD LAB BLOOD ORDERABLES Final Resu lt [facility] [address] [place] [address], [place] [phone] * (ABNORMAL) Complete blood count (08/24/2024 5:46 AM EDT) WBC 6.8 4.8 - 10.8 K/mcL LAB HEMETOLOGY METHOD 08/24/2024 8:45 AM [facility] RBC 2.50(L) 3.80 - 4.80 M/mcL LAB HEMETOLOGY METHOD 08/24/2024 8:45 AM [facility] Hemoglobin 8.6(L) 11.5 - 16.0 g/dL LAB HEMETOLOGY METHOD 08/24/2024 8:45 AM T [facility] Hematocrit 26.2(L) 35.0 - 47.0 % LAB HEMETOLOGY METHOD 08/24/2024 8:45 AM [facility] MCV 103.6(H) 79.0 - 98.0 FL LAB HEMETOLOGY METHOD 08/24/2024 8:45 AM EDT [facility] MCH 34.0(H) 27.0 - 32.0 pcg LAB HEMETOLOGY METHOD 08/24/2024 8:45 AM EDT [facility] MCHC 32.8 32.0 - 37.0 g/dL LAB HEMETOLOGY METHOD 08/24/2024 8:45 AM EDT [facility] RDW 18.7(H) 11.0 - 15.0 % LAB HEMETOLOGY METHOD 08/24/2024 8:45 AM EDT [facility] Platelets 192 130 - 400 K/mcL LAB HEMETOLOGY METHOD 08/24/2024 8:45 AM EDT [facility] MPV 9.3 7.0 - 11.0 FL LAB HEMETOLOGY METHOD 08/24/2024 8:45 AM EDT [facility] NRBC 0.0 <1.0 % LAB HEMETOLOGY METHOD 08/24/2024 8:45 AM EDT [facility] NRBC Absolute 0.00 <0.10 K/mcL LAB HEMETOLOGY METHOD 08/24/2024 8:45 AM EDT [facility] Blood Venous blood specimen / Unknown Venipuncture / Unknown 08/24/2024 5:46 AM EDT 08/24/2024 8:32 AM EDT us Lincoln Crespo MD LAB BLOOD ORDERABLES Final Resu lt [facility] [address] [place] [address], [place] [phone] documented in this encounter Visit Diagnoses Diagnosis Essential (primary) hypertension Unspecified essential hypertension Atherosclerotic heart disease of [place] coronary artery without angina pectoris Anemia, unspecified documented in this encounter Care Teams Double Spindle Shaper Operator Relationship Specialty Start Date End Date John Avina DO [address] [place] [phone] PCP - General Internal Medicine 06/10/24 documented as of this encounter
--- OUTSIDE RECORDS SUMMARY | 2025-01-19 13:24 | XMS_ITS | Encounter Summary ---
Author Organization [facility] Address [address] [place] [address] Care Team Providers Care Hide Mill Man Name Role Phone John Avina DO Primary Care Provider [phone] Encounter Details Date Type Department Care Team (Late st Contact Info) Description 08/26/2024 Lab Requisition [facility] - Main Lab [address] [facility] [place] [address] Lincoln Crespo MD [address] [place] [address] Essential (primary) hypertension; Atherosclerotic heart disease of [place] coronary artery without angina pectoris; Anemia, unspecified; [...] Essential (primary) hypertension Atherosclerotic heart disease of [place] coronary artery without angina pectoris Anemia, unspecified Chronic kidney disease, unspecified BASIC METABOLIC PANEL Routine 08/27/2024 5:31 AM EDT Essential (primary) hypertension Atherosclerotic heart disease of [place] coronary artery without angina pectoris Anemia, unspecified Chronic kidney disease, unspecified documented in this encounter Results * (ABNORMAL) Basic metabolic panel (08/27/2024 5:31 AM EDT) Sodium 144 133 - 145 mmol/L LAB CHEMISTRY METHOD 08/27/2024 10:08 AM [facility] Potassium 4.1 3.5 - 5.5 mmol/L LAB CHEMISTRY METHOD 08/27/2024 10:08 AM [facility] Chloride 111(H) 96 - 110 mmol/L LAB CHEMISTRY METHOD 08/27/2024 10:08 AM [facility] CO2 26 21 - 32 mmol/L LAB CHEMISTRY METHOD 08/27/2024 10:08 AM [facility] Anion Gap 7 3 - 11 LAB CHEMISTRY METHOD 08/27/2024 10:08 AM [facility] Glucose 86 70 - 100 mg/dL LAB CHEMISTRY METHOD 08/27/2024 10:08 AM [facility] BUN 41(H) 5 - 25 mg/dL LAB CHEMISTRY METHOD 08/27/2024 10:08 AM [facility] Creatinine 1.64(H) 0.50 - 1.10 mg/dL LAB CHEMISTRY METHOD 08/27/2024 10:08 AM [facility] eGFR 32(L) >=60 mL/min/1. 73m2 LAB CHEMISTRY METHOD 08/27/2024 10:08 AM [facility] Comment:Calculation based on the Chronic Kidney Disease Epidemiology Collaboration (CKD-EPI) equation refit without adjustment for race. BUN/Creatinine Ratio 25.0 LAB CHEMISTRY METHOD 08/27/2024 10:08 AM [facility] Calcium 8.6 8.5 - 10.5 mg/dL LAB CHEMISTRY METHOD 08/27/2024 10:08 AM [facility] Blood Venous blood specimen / Unknown Venipuncture / Unknown 08/27/2024 5:31 AM EDT 08/27/2024 8:43 AM EDT us Lincoln Crespo MD LAB BLOOD ORDERABLES Final Resu lt [facility] [address] [place] [address], * (ABNORMAL) Complete blood count (08/27/2024 5:31 AM EDT) [facility] WBC 5.4 4.8 - 10.8 K/mcL LAB HEMETOLOGY [facility] RBC 2.70(L) 3.80 - 4.80 M/mcL LAB HEMETOLOGY METHOD 08/27/2024 9:02 AM [facility] Hemoglobin 9.0(L) 11.5 - 16.0 g/dL LAB HEMETOLOGY METHOD 08/27/2024 9:02 AM [facility] Hematocrit 27.9(L) 35.0 - 47.0 % LAB HEMETOLOGY METHOD 08/27/2024 9:02 AM [facility] MCV 104.1(H) 79.0 - 98.0 FL LAB HEMETOLOGY METHOD 08/27/2024 9:02 AM [facility] MCH 33.6(H) 27.0 - 32.0 pcg LAB HEMETOLOGY METHOD 08/27/2024 9:02 AM [facility] MCHC 32.3 32.0 - 37.0 g/dL LAB HEMETOLOGY METHOD 08/27/2024 9:02 AM [facility] RDW 19.1(H) 11.0 - 15.0 % LAB HEMETOLOGY METHOD 08/27/2024 9:02 AM [facility] Platelets 214 130 - 400 K/mcL LAB HEMETOLOGY METHOD 08/27/2024 9:02 AM [facility] MPV 9.3 7.0 - 11.0 FL LAB HEMETOLOGY METHOD 08/27/2024 9:02 AM [facility] NRBC 0.0 <1.0 % LAB HEMETOLOGY METHOD 08/27/2024 9:02 AM EDT [facility] NRBC Absolute 0.00 <0.10 K/mcL LAB HEMETOLOGY METHOD 08/27/2024 9:02 AM EDT [facility] Blood Venous blood specimen / Unknown Venipuncture / Unknown 08/27/2024 5:31 AM EDT 08/27/2024 8:51 AM EDT us Lincoln Crespo MD LAB BLOOD ORDERABLES Final Resu lt [facility] [address] [place] [address], documented in this encounter Visit Diagnoses Diagnosis Essential (primary) hypertension Unspecified essential hypertension Atherosclerotic heart disease of [place] coronary artery without angina pectoris Anemia, unspecified Chronic kidney disease, unspecified documented in this encounter Care Teams Hide Mill Man Relationship Specialty Start Date End Date John Avina DO [address] [place] [phone] PCP - General Internal Medicine 06/10/24 documented as of this encounter
--- OUTSIDE RECORDS SUMMARY | 2025-01-19 13:24 | XMS_ITS | Clinical Summary ---
Author Organization [address] Address [address] [place] [address] Phone Care Team Providers Care Criminology Professor Name Role Phone FabriceJohn solares Primary Care Provider [phone] Social History Tobacco Use Types Packs/Day Years [...] (primary) hypertension Atherosclerotic heart disease of [place] coronary artery without angina pectoris Anemia, unspecified [...] LAB CHEMISTRY METHOD 09/17/2024 11:[address] [facility] BUN 49(H) 5 - 25 mg/dL LAB CHEMISTRY METHOD 09/17/2024 11:[address] [facility] Creatinine 1.74(H) 0.50 - 1.10 mg/dL LAB CHEMISTRY METHOD 09/17/2024 11:[address] [facility] eGFR 30(L) >=60 mL/min/1. 73m2 LAB CHEMISTRY METHOD 09/17/2024 11:[address] [facility] Comment:Calculation based on the Chronic Kidney Disease Epidemiology Collaboration (CKD-EPI) equation refit without adjustment for race. BUN/Creatinine Ratio 28.2 LAB CHEMISTRY METHOD 09/17/2024 11:[address] [facility] Calcium 9.3 8.5 - 10.5 mg/dL LAB CHEMISTRY METHOD 09/17/2024 11:[address] [facility] Blood Venous blood specimen / Unknown Venipuncture / Unknown 09/17/2024 8:40 AM EDT 09/17/2024 10:05 AM EDT Lincoln Crespo MD LAB BLOOD ORDERABLES Final Resu lt [facility] [address] [place] [address], from Last 3 Months or Most Recently Relevant to Health Maintenance Insurance MEDICARE [facility] MED[facility] Care Teams Criminology Professor Relationship Specialty Start Date End Date John Avina DO [address] [place] [phone] PCP - General Internal Medicine 06/10/24
--- OUTSIDE RECORDS SUMMARY | 2025-01-19 13:24 | XMS_ITS | Encounter Summary ---
Author Organization [facility] Address [address] [place] [address] Care Team Providers Care Wax Pot Tender Name Role Phone John Avina DO Primary Care Provider [phone] Encounter Details Date Type Department Care Team (Late st Contact Info) Description 08/16/2024 Lab Requisition [facility] - Main Lab 299 [facility] [place] [address] Lincoln Crespo MD [address] [place] [address] Other ulcerative colitis with rectal [...] AM EDT) WBC 7.2 4.8 - 10.8 K/[facility] LAB HEMETOLOGY METHOD 08/16/2024 10:41 AM EDT [facility] RBC 2.90(L) 3.80 - 4.80 M/[facility] LAB HEMETOLOGY METHOD 08/16/2024 10:41 AM [facility] Hemoglobin 9.7(L) 11.5 - 16.0 g/dL LAB HEMETOLOGY METHOD 08/16/2024 10:41 AM [facility] Hematocrit 29.9(L) 35.0 - 47.0 % LAB HEMETOLOGY METHOD 08/16/2024 10:41 AM [facility] MCV 101.7(H) 79.0 - 98.0 FL LAB HEMETOLOGY METHOD 08/16/2024 10:41 AM [facility] MCH 33.0(H) 27.0 - 32.0 pcg LAB HEMETOLOGY METHOD 08/16/2024 10:41 AM [facility] MCHC 32.4 32.0 - 37.0 g/dL LAB HEMETOLOGY METHOD 08/16/2024 10:41 AM [facility] RDW 18.1(H) 11.0 - 15.0 % LAB HEMETOLOGY METHOD 08/16/2024 10:41 AM [facility] Platelets 246 130 - 400 K/mcL LAB HEMETOLOGY METHOD 08/16/2024 10:41 AM [facility] MPV 9.2 7.0 - 11.0 FL LAB HEMETOLOGY METHOD 08/16/2024 10:41 AM [facility] NRBC 0.0 <1.0 % LAB HEMETOLOGY METHOD 08/16/2024 10:41 AM [facility] NRBC Absolute 0.00 <0.10 K/mcL LAB HEMETOLOGY METHOD 08/16/2024 10:41 AM [facility] Blood Venous blood specimen / Unknown Venipuncture / Unknown 08/16/2024 8:48 AM EDT 08/16/2024 10:02 AM EDT Lincoln Crespo MD LAB BLOOD ORDERABLES [facility] [address] [place] [address], documented in this encounter Visit Diagnoses Diagnosis Other ulcerative colitis with rectal bleeding (CMS/HCC V24, CMS/HCC V28) Anemia in chronic kidney disease (CODE) documented in this encounter Care Teams Wax Pot Tender Relationship Specialty Start Date End Date John Avina DO [address] [place] [phone] PCP - General Internal Medicine 06/10/24 documented as of this encounter
--- OUTSIDE RECORDS SUMMARY | 2025-01-19 13:24 | XMS_ITS | Encounter Summary ---
Author Organization [facility] Address [address] [place] [address] Care Team Providers Care Mill Representative Name Role Phone John Avina DO Primary Care Provider [phone] Encounter Details Date Type Department Care Team (Late st Contact Info) Description 09/14/2024 Lab Requisition [facility] - Main Lab 299 [facility] [place] [address] Lincoln Crespo MD [address] [place] [address] Essential (primary) hypertension; Atherosclerotic heart disease of [place] coronary artery without angina pectoris; Anemia, unspecified [...] Essential (primary) hypertension Atherosclerotic heart disease of [place] coronary artery without angina pectoris Anemia, unspecified COMPREHENSIVE METABOLIC PANEL Routine 09/15/2024 7:05 AM EDT Essential (primary) hypertension Atherosclerotic heart disease of [place] coronary artery without angina pectoris Anemia, unspecified documented in this encounter Results * (ABNORMAL) Complete blood count (09/15/2024 7:07 AM EDT) WBC 5.1 4.8 - 10.8 K/mcL LAB HEMETOLOGY METHOD 09/15/2024 12:07 PM EDT [facility] RBC 2.30(L) 3.80 - 4.80 M/mcL LAB HEMETOLOGY METHOD 09/15/2024 12:07 PM [facility] LAB Hemoglobin 8.0(L) 11.5 - 16.0 g/dL LAB HEMETOLOGY METHOD 09/15/2024 12:07 PM [facility] LAB Hematocrit 24.4(L) 35.0 - 47.0 % LAB HEMETOLOGY METHOD 09/15/2024 12:07 PM [facility] LAB MCV 107.0(H) 79.0 - 98.0 FL LAB HEMETOLOGY METHOD 09/15/2024 12:07 PM [facility] LAB MCH 35.1(H) 27.0 - 32.0 pcg LAB HEMETOLOGY METHOD 09/15/2024 12:07 PM [facility] LAB MCHC 32.8 32.0 - 37.0 g/dL LAB HEMETOLOGY METHOD 09/15/2024 12:07 PM [facility] LAB RDW 19.0(H) 11.0 - 15.0 % LAB HEMETOLOGY METHOD 09/15/2024 12:07 PM [facility] LAB Platelets 141 130 - 400 K/mcL LAB HEMETOLOGY METHOD 09/15/2024 12:07 PM [facility] LAB MPV 9.2 7.0 - 11.0 FL LAB HEMETOLOGY METHOD 09/15/2024 12:07 PM [facility] LAB NRBC 0.0 <1.0 % LAB HEMETOLOGY METHOD 09/15/2024 12:07 PM [facility] LAB NRBC Absolute 0.00 <0.10 K/mcL LAB HEMETOLOGY METHOD 09/15/2024 12:07 PM [facility] Blood Venous blood specimen / Unknown Venipuncture / Unknown 09/15/2024 7:07 AM EDT 09/15/2024 10:49 AM EDT us Lincoln Crespo MD LAB BLOOD ORDERABLES Final Resu lt [facility] [address] [place] [address], [place] [phone] * (ABNORMAL) Comprehensive metabolic panel (09/15/2024 7:05 AM EDT) Sodium 143 133 - 145 mmol/L LAB CHEMISTRY METHOD 09/15/2024 12:43 PM [facility] Potassium 3.6 3.5 - 5.5 mmol/L LAB CHEMISTRY METHOD 09/15/2024 12:43 PM [facility] Chloride 110 96 - 110 mmol/L LAB CHEMISTRY METHOD 09/15/2024 12:43 PM [facility] CO2 22 21 - 32 mmol/L LAB CHEMISTRY METHOD 09/15/2024 12:43 PM [facility] Anion Gap 11 3 - 11 LAB CHEMISTRY METHOD 09/15/2024 12:43 PM [facility] Glucose 90 70 - 100 mg/dL LAB CHEMISTRY METHOD 09/15/2024 12:43 PM [facility] BUN 49(H) 5 - 25 mg/dL LAB CHEMISTRY METHOD 09/15/2024 12:43 PM [facility] Creatinine 1.80(H) 0.50 - 1.10 mg/dL LAB CHEMISTRY METHOD 09/15/2024 12:43 PM [facility] eGFR 29(L) >=60 mL/min/1. 73m2 LAB CHEMISTRY METHOD 09/15/2024 12:43 PM [facility] Comment:Calculation based on the Chronic Kidney Disease Epidemiology Collaboration (CKD-EPI) equation refit without adjustment for race. BUN/Creatinine Ratio 27.2 LAB CHEMISTRY METHOD 09/15/2024 12:43 PM EDT [facility] Calcium 8.9 8.5 - 10.5 mg/dL LAB CHEMISTRY METHOD 09/15/2024 12:43 PM T [facility] AST (SGOT) 6(L) 10 - 42 unit/L LAB CHEMISTRY METHOD 09/15/2024 12:43 PM [facility] ALT (SGPT) 15 10 - 60 unit/L LAB CHEMISTRY METHOD 09/15/2024 12:43 PM T [facility] Alkaline Phosphatase 56 42 - 121 unit/L LAB CHEMISTRY METHOD 09/15/2024 12:43 PM [facility] Total Protein 6.0 6.0 - 8.0 g/dL LAB CHEMISTRY METHOD 09/15/2024 12:43 PM [facility] Albumin 3.0(L) 3.2 - 5.0 g/dL LAB CHEMISTRY METHOD 09/15/2024 12:43 PM [facility] Total Bilirubin 0.5 0.0 - 1.4 mg/dL LAB CHEMISTRY METHOD 09/15/2024 12:43 PM [facility] Blood Venous blood specimen / Unknown Venipuncture / Unknown 09/15/2024 7:05 AM EDT 09/15/2024 10:50 AM EDT us Lincoln Crespo MD LAB BLOOD ORDERABLES Final Resu lt [facility] [address] [place] [address], documented in this encounter Visit Diagnoses Diagnosis Essential (primary) hypertension Unspecified essential hypertension Atherosclerotic heart disease of [place] coronary artery without angina pectoris Anemia, unspecified documented in this encounter Care Teams Mill Representative Relationship Specialty Start Date End Date John Avina DO [address] [place] [phone] PCP - General Internal Medicine 06/10/24 documented as of this encounter
--- OUTSIDE RECORDS SUMMARY | 2025-01-19 13:24 | XMS_ITS | Clinical Summary ---
Author Organization [facility] Address [address] [place] [address] Phone Care Team Providers Care Dining Room Hostess Name Role Phone FabriceJohn solares Primary Care [...] [facility] [address] [place] [address] Mejia Soler [...] [facility] [address] [place] [address] Mejia Soler MD [address] [place] [address] Health Maintenance Due Date Last [...] to complete this topic Insurance Medicare [facility] Medicare [facility] Care Teams Dining Room Hostess Relationship Specialty Start Date End Date John Avina DO [address] [place] [address] PCP - General Internal Medicine 10/23/23
--- OUTSIDE RECORDS SUMMARY | 2025-01-19 13:24 | XMS_ITS | Encounter Summary ---
Author Organization [facility] Address [address] [place] [address] Care Team Providers Care Hearing Aid Mechanic Name Role Phone John Avina DO Primary Care Provider [phone] Encounter Details Date Type Department Care Team (Late st Contact Info) Description 06/10/[address] [facility] - Main Lab 299 [facility] [place] [address] Arianna Iraheta PA [address] [place], [place] [id number] Dysuria Social History Tobacco Use Types Packs/Day [...] ssp pneumoniae(A) RIC 06/12/2024 11:01 AM EST [facility] ([facility]) [facility] Comment: This is [...] MICROBIOLOGY - GENERAL ORD ERABLES Final Result [facility] LAB [address] [place] [address], documented in this encounter Visit Diagnoses Diagnosis Dysuria documented in this encounter Care Teams Hearing Aid Mechanic Relationship Specialty Start Date End Date John Avina DO [address] [place] [phone] PCP - General Internal Medicine 06/10/24 documented as of this encounter
--- OUTSIDE RECORDS SUMMARY | 2025-01-19 13:24 | XMS_ITS | Encounter Summary ---
Author Organization [employer] [facility] Address [address] [place] [address] Care Team Providers Care Pearl Glue Operator Name Role Phone John Avina DO Primary Care Provider [phone] Encounter Details Date Type Department Care Team (Late st Contact Info) Description 09/02/2024 Lab Requisition [facility] - Main Lab 299 [facility] [place] [address] Lincoln Crespo MD [address] [place] [address] Essential (primary) hypertension; Atherosclerotic heart disease of [place] coronary artery without angina pectoris; Anemia, unspecified; [...] Essential (primary) hypertension Atherosclerotic heart disease of [place] coronary artery without angina pectoris Anemia, unspecified Chronic kidney disease, unspecified BASIC METABOLIC PANEL Routine 09/03/2024 7:35 AM EDT Essential (primary) hypertension Atherosclerotic heart disease of [place] coronary artery without angina pectoris Anemia, unspecified Chronic kidney disease, unspecified documented in this encounter Results * (ABNORMAL) Basic metabolic panel (09/03/2024 7:35 AM EDT) Sodium 142 133 - 145 mmol/L LAB CHEMISTRY METHOD 09/03/2024 9:20 AM [facility] Potassium 4.0 3.5 - 5.5 mmol/L LAB CHEMISTRY METHOD 09/03/2024 9:20 AM [facility] Chloride 112(H) 96 - 110 mmol/L LAB CHEMISTRY METHOD 09/03/2024 9:20 AM [facility] CO2 22 21 - 32 mmol/L LAB CHEMISTRY METHOD 09/03/2024 9:20 AM [facility] Anion Gap 8 3 - 11 LAB CHEMISTRY METHOD 09/03/2024 9:20 AM [facility] LAB Glucose 90 70 - 100 mg/dL LAB CHEMISTRY METHOD 09/03/2024 9:20 AM [facility] BUN 48(H) 5 - 25 mg/dL LAB CHEMISTRY METHOD 09/03/2024 9:20 AM [facility] Creatinine 1.72(H) 0.50 - 1.10 mg/dL LAB CHEMISTRY METHOD 09/03/2024 9:20 AM [facility] LAB eGFR 30(L) >=60 mL/min/1. 73m2 LAB CHEMISTRY METHOD 09/03/2024 9:20 AM [facility] LAB Comment:Calculation based on the Chronic Kidney Disease Epidemiology Collaboration (CKD-EPI) equation refit without adjustment for race. BUN/Creatinine Ratio 27.9 LAB CHEMISTRY METHOD 09/03/2024 9:20 AM [facility] Calcium 9.3 8.5 - 10.5 mg/dL LAB CHEMISTRY METHOD 09/03/2024 9:20 AM [facility] Blood Venous blood specimen / Unknown Venipuncture / Unknown 09/03/2024 7:35 AM EDT 09/03/2024 8:28 AM EDT us Lincoln Crespo MD LAB BLOOD ORDERABLES Final Resu lt [facility] [address] [place] [address], * (ABNORMAL) Complete blood count (09/03/2024 7:35 AM EDT) [facility] Signature WBC 4.5(L) 4.8 - 10.8 K/mcL LAB HEMETOLOGY METHOD 09/03/2024 8:46 AM EDT [facility] RBC 2.60(L) 3.80 - 4.80 M/mcL LAB HEMETOLOGY METHOD 09/03/2024 8:46 AM EDT [facility] Hemoglobin 8.8(L) 11.5 - 16.0 g/dL LAB HEMETOLOGY METHOD 09/03/2024 8:46 AM [facility] Hematocrit 27.0(L) 35.0 - 47.0 % LAB HEMETOLOGY METHOD 09/03[facility] MCV 105.1(H) 79.0 - 98.0 FL LAB HEMETOLOGY METHOD 09/03/2024 [facility] MCH 34.2(H) 27.0 - 32.0 pcg LAB HEMETOLOGY METHOD 09/03/2024 8:46 AM [facility] MCHC 32.6 32.0 - 37.0 g/dL LAB HEMETOLOGY METHOD 09/03/2024 8[facility] RDW 19.1(H) 11.0 - 15.0 % LAB HEMETOLOGY METHOD 09/03/2024 8:46 AM EDT [facility] Platelets 200 130 - 400 K/mcL LAB HEMETOLOGY METHOD 09/03/2024 8:46 AM EDT [facility] MPV 9.2 7.0 - 11.0 FL LAB HEMETOLOGY METHOD 09/03/2024 8:46 AM EDT [facility] NRBC 0.0 <1.0 % LAB HEMETOLOGY METHOD 09/03/2024 8:46 AM EDT [facility] LAB NRBC Absolute 0.00 <0.10 K/mcL LAB HEMETOLOGY METHOD 09/03/2024 8:46 AM EDT [facility] Blood Venous blood specimen / Unknown Venipuncture / Unknown 09/03/2024 7:35 AM EDT 09/03/2024 8:28 AM EDT us Lincoln Crespo MD LAB BLOOD ORDERABLES Final Resu lt [facility] ([facility] [address] [place] [address], documented in this encounter Visit Diagnoses Diagnosis Essential (primary) hypertension Unspecified essential hypertension Atherosclerotic heart disease of [place] coronary artery without angina pectoris Anemia, unspecified Chronic kidney disease, unspecified documented in this encounter Care Teams Pearl Glue Operator Relationship Specialty Start Date End Date John Avina DO [address] [place] [phone] PCP - General Internal Medicine 06/10/24 documented as of this encounter
--- OUTSIDE RECORDS SUMMARY | 2025-01-19 13:24 | XMS_ITS | Encounter Summary ---
Author Organization [employer] Address [address] [place] [address] Care Team Providers Care Sales Engagement Manager Name Role Phone John Avina DO Primary Care Provider [phone] Encounter Details Date Type Department Care Team (Late st Contact Info) Description 08/14/2024 Lab Requisition [facility] - Main Lab 299 [facility] [place] [address] Lincoln Crespo MD [address] [place] [address] Essential (primary) hypertension; Atherosclerotic heart disease of [place] coronary artery without angina pectoris; Anemia, unspecified [...] hypertension Atherosclerotic heart disease of [place] coronary artery without angina pectoris Anemia, unspecified COMPREHENSIVE METABOLIC PANEL Routine 08/17/2024 5:41 AM EDT Essential (primary) hypertension Atherosclerotic heart disease of [place] coronary artery without angina pectoris Anemia, unspecified documented in this encounter Results * (ABNORMAL) Comprehensive metabolic panel (08/17/2024 5:41 AM EDT) Sodium 141 133 - 145 mmol/L LAB CHEMISTRY METHOD 08/17/2024 1:27 PM EDT [facility] Potassium 3.8 3.5 - 5.5 mmol/L LAB CHEMISTRY METHOD 08/17/2024 1:27 PM [facility] LAB Chloride 108 96 - 110 mmol/L LAB CHEMISTRY METHOD 08/17/2024 1:27 PM [facility] LAB CO2 23 21 - 32 mmol/L LAB CHEMISTRY METHOD 08/17/2024 1:27 PM [facility] LAB Anion Gap 10 3 - 11 LAB CHEMISTRY METHOD 08/17/2024 1:27 PM [facility] LAB Glucose 69(L) 70 - 100 mg/dL LAB CHEMISTRY METHOD 08/17/2024 1:27 PM [facility] BUN 34(H) 5 - 25 mg/dL LAB CHEMISTRY METHOD 08/17/2024 1:27 PM [facility] LAB Creatinine 1.53(H) 0.50 - 1.10 mg/dL LAB CHEMISTRY METHOD 08/17/2024 1:27 PM [facility] LAB eGFR 35(L) >=60 mL/min/1. 73m2 LAB CHEMISTRY METHOD 08/17/2024 1:27 PM [facility] LAB Comment:Calculation based on the Chronic Kidney Disease Epidemiology Collaboration (CKD-EPI) equation refit without adjustment for race. BUN/Creatinine Ratio 22.2 LAB CHEMISTRY METHOD 08/17/2024 1:27 PM [facility] LAB Calcium 8.7 8.5 - 10.5 mg/dL LAB CHEMISTRY METHOD 08/17/2024 1:27 PM [facility] LAB AST (SGOT) 9(L) 10 - 42 unit/L LAB CHEMISTRY METHOD 08/17/2024 1:27 PM [facility] ALT (SGPT) 8(L) 10 - 60 unit/L LAB CHEMISTRY METHOD 08/17/2024 1:27 PM [facility] LAB Alkaline Phosphatase 67 42 - 121 unit/L LAB CHEMISTRY METHOD 08/17/2024 1:27 PM [facility] LAB Total Protein 5.5(L) 6.0 - 8.0 g/dL LAB CHEMISTRY METHOD 08/17/2024 1:27 PM EDT [facility] LAB Albumin 2.4(L) 3.2 - 5.0 g/dL LAB CHEMISTRY METHOD 08/17/2024 1:27 PM EDT [facility] LAB Total Bilirubin 0.4 0.0 - 1.4 mg/dL LAB CHEMISTRY METHOD 08/17/2024 1:27 PM EDT [facility] LAB Blood Venous blood specimen / Unknown Venipuncture / Unknown 08/17/2024 5:41 AM EDT 08/17/2024 10:15 AM EDT us Lincoln Crespo MD LAB BLOOD ORDERABLES Final Resu lt [facility] [address] [place] [address], * (ABNORMAL) Complete blood count (08/17/2024 5:41 AM EDT) WBC 7.2 4.8 - 10.8 K/mcL LAB HEMETOLOGY METHOD 08/17/2024 11:28 AM [facility] LAB RBC 2.90(L) 3.80 - 4.80 M/mcL LAB HEMETOLOGY METHOD 08/17/2024 11:28 AM EDT [facility] LAB Hemoglobin 9.6(L) 11.5 - 16.0 g/dL LAB HEMETOLOGY METHOD 08/17/2024 11:28 AM EDT [facility] LAB Hematocrit 29.9(L) 35.0 - 47.0 % LAB HEMETOLOGY METHOD [facility] MCV 103.5(H) 79.0 - 98.0 FL LAB HEMETOLOGY METHOD 08/17/2024 11:28 AM EDT [facility] LAB MCH 33.2(H) 27.0 - 32.0 pcg LAB HEMETOLOGY METHOD 08/17/2024 11:28 AM [facility] LAB MCHC 32.1 32.0 - 37.0 g/dL LAB HEMETOLOGY METHOD 08/17/2024 11:28 AM [facility] LAB RDW 18.2(H) 11.0 - 15.0 % LAB HEMETOLOGY METHOD 08/17/2024 11:28 AM [facility] LAB Platelets 215 130 - 400 K/mcL LAB HEMETOLOGY METHOD 08/17/2024 11:28 AM [facility] LAB MPV 9.2 7.0 - 11.0 FL LAB HEMETOLOGY METHOD 08/17/2024 11:28 AM [facility] LAB NRBC 0.0 <1.0 % LAB HEMETOLOGY METHOD 08/17/2024 11:28 AM [facility] LAB NRBC Absolute 0.00 <0.10 K/mcL LAB HEMETOLOGY METHOD 08/17/2024 11:28 AM [facility] LAB Blood Venous blood specimen / Unknown Venipuncture / Unknown 08/17/2024 5:41 AM EDT 08/17/2024 10:15 AM EDT us Lincoln Crespo MD LAB BLOOD ORDERABLES Final Resu lt [facility] [address] [place] [address], documented in this encounter Visit Diagnoses Diagnosis Essential (primary) hypertension Unspecified essential hypertension Atherosclerotic heart disease of [place] coronary artery without angina pectoris Anemia, unspecified documented in this encounter Care Teams Sales Engagement Manager Relationship Specialty Start Date End Date John Avina DO [address] [place] [phone] PCP - General Internal Medicine 06/10/24 documented as of this encounter
--- OUTSIDE RECORDS SUMMARY | 2025-01-19 13:24 | XMS_ITS | Clinical Summary ---
Author Organization [facility] Address [address] [facility] [address] [place] [address] Phone Care Team Providers Care Energy Consultant Name Role Phone Aniceto Emery MD Primary Care Provider [phone] Juliann Tse MD Unavailable [phone] Henrry Espino MD Unavailable [phone] Allergies Active Allergy Reactions Criticality Noted Date [...] Smoking Tobacco: Former Cigarettes 1 23 1 [phone] - [phone] Education Answer Date Recorded Are you interested [...] EST) SODIUM 138 135 - 145 mmol/L [facility] LIC# [id number] POTASSIUM 3.8 3.5 - 5.0 mmol/L [facility] LIC# [id number] CHLORIDE 104 98 - 108 mmol/L [facility] LIC# [id number] CO2 27 23 - 32 mmol/L [facility] LIC# [id number] BUN 28(H) 9 - 25 mg/dL [facility] LIC# [id number] CREATININE 1.26 0.7 - 1.3 mg/dL [facility] LIC# [id number] GLUCOSE 143(H) 70 - 100 mg/dL [facility] LIC# [id number] ALBUMIN 4.3 3.7 - 5.4 g/dL [facility] LIC# [id number] TOTAL PROTEIN 7.4 6.0 - 8.0 g/dL [facility] LIC# [id number] CALCIUM 9.8 8.8 - 10.5 mg/dL [facility] LIC# [id number] ALKALINE PHOSPHATASE 82 36 - 118 U/L [facility] LIC# [id number] TOTAL BILIRUBIN 0.5 0.2 - 1.2 mg/dL [facility] LIC# [id number] AST 15 9 - 30 U/L [facility] LIC# [id number] ALT 16 7 - 52 U/L [facility] LIC# [id number] GLOBULIN 3.1 2.3 - 4.2 g/dL [facility] LIC# [id number] EGFR 42 mL/min/1.7 3m2 [facility] LIC# [id number] Comment:Abnormal if <60 mL/m in/1.73m2. If patient is -[place], multiply the result by 1.21. ANION GAP 7 5 - 17 mmol/L [facility] LIC# [id number] 06/04/2016 4:11 PM EST 06/04/2016 4:19 PM EST Henrry Espino MD LAB BLOOD ORDERABLES Final Result [facility] LIC# [id number] [address] [place] [address] from Last 3 Months or Most Recently Relevant to Health Maintenance Insurance PPO [place] [address] [place] [address] PPO PPO PPO PPO PPO [facility] PPO Advance Directives For more information, please contact: [phone] (9AM - 5PM [facility], Saturday-Saturday) Documents on File Type Date Recorded Patient Marketing Underwriter Expl anation Healthcare Proxy 06/04/2016 3:21 PM HCP Care Teams Energy Consultant Relationship Specialty Start Date End Date Aniceto Emery MD PCP - General Internal Medicine 04/25/16 Henrry Espino MD [address] [place] [address] Multiple Myeloma [facility] [place] [address] [email or web address] - Hematology/Oncology Medical Oncology 06/06/16 Juliann Tse MD [address] [place] [phone] [email or web address] Physician Hematology and Oncology 04/25/16 Additional Source Comments The information contained in this document represents components of the legal health record. It is not the complete legal health record.[facility]
--- OUTSIDE RECORDS SUMMARY | 2025-01-19 13:24 | XMS_ITS | Encounter Summary ---
Author Organization [employer] Address [address] [place] [address] Care Team Providers Care Rrts Name Role Phone John Avina DO Primary Care Provider [phone] Encounter Details Date Type Department Care Team (Late st Contact Info) Description 09/05/2024 Lab Requisition [facility] - Main Lab 299 [facility] [place] [address] Lincoln Crespo MD [address] [place] [address] Essential (primary) hypertension; Atherosclerotic heart disease of [place] coronary artery without angina pectoris; Anemia, unspecified [...] Essential (primary) hypertension Atherosclerotic heart disease of [place] coronary artery without angina pectoris Anemia, unspecified COMPREHENSIVE METABOLIC PANEL Routine 09/07/2024 5:11 AM EDT Essential (primary) hypertension Atherosclerotic heart disease of [place] coronary artery without angina pectoris Anemia, unspecified documented in this encounter Results * (ABNORMAL) Comprehensive metabolic panel (09/07/2024 5:11 AM EDT) Sodium 144 133 - 145 mmol/L LAB CHEMISTRY METHOD 09/07/2024 2:[address] [facility] Potassium 3.9 3.5 - 5.5 mmol/L LAB CHEMISTRY METHOD 09/07/2024 2:49 PM [facility] Chloride 109 96 - 110 mmol/L LAB CHEMISTRY METHOD 09/07/2024 2:49 PM [facility] CO2 23 21 - 32 mmol/L LAB CHEMISTRY METHOD 09/07/2024 2:49 PM [facility] Anion Gap 12(H) 3 - 11 LAB CHEMISTRY METHOD 09/07/2024 2:49 PM [facility] Glucose 77 70 - 100 mg/dL LAB CHEMISTRY METHOD 09/07/2024 2:49 PM [facility] BUN 48(H) 5 - 25 mg/dL LAB CHEMISTRY METHOD 09/07/2024 2:49 PM [facility] Creatinine 1.93(H) 0.50 - 1.10 mg/dL LAB CHEMISTRY METHOD 09/07/2024 2:49 PM [facility] eGFR 26(L) >=60 mL/min/1. 73m2 LAB CHEMISTRY METHOD 09/07/2024 2:49 PM [facility] Comment:Calculation based on the Chronic Kidney Disease Epidemiology Collaboration (CKD-EPI) equation refit without adjustment for race. BUN/Creatinine Ratio 24.9 LAB CHEMISTRY METHOD 09/07/2024 2:49 PM [facility] Calcium 8.9 8.5 - 10.5 mg/dL LAB CHEMISTRY METHOD 09/07/2024 2:49 PM [facility] AST (SGOT) 6(L) 10 - 42 unit/L LAB CHEMISTRY METHOD 09/07/2024 2:49 PM [facility] ALT (SGPT) 14 10 - 60 unit/L LAB CHEMISTRY METHOD 09/07/2024 2:49 PM [facility] Alkaline Phosphatase 61 42 - 121 unit/L LAB CHEMISTRY METHOD 09/07/2024 2:49 PM [facility] Total Protein 6.1 6.0 - 8.0 g/dL LAB CHEMISTRY METHOD 09/07/2024 2:49 PM EDT [facility] Albumin 3.0(L) 3.2 - 5.0 g/dL LAB CHEMISTRY METHOD 09/07/2024 2:49 PM EDT [facility] Total Bilirubin 0.5 0.0 - 1.4 mg/dL LAB CHEMISTRY METHOD 09/07/2024 2:49 PM EDT [facility] Blood Venous blood specimen / Unknown Venipuncture / Unknown 09/07/2024 5:11 AM EDT 09/07/2024 2:11 PM EDT us Lincoln Crespo MD LAB BLOOD ORDERABLES Final Resu lt [facility] [address] [place] [address], [place] [phone] * (ABNORMAL) Complete blood count (09/07/2024 5:11 AM EDT) WBC 5.1 4.8 - 10.8 K/mcL LAB HEMETOLOGY METHOD 09/07/2024 3:07 PM EDT [facility] RBC 2.40(L) 3.80 - 4.80 M/mcL LAB HEMETOLOGY METHOD 09/07/2024 3:07 PM EDT [facility] Hemoglobin 8.2(L) 11.5 - 16.0 g/dL LAB HEMETOLOGY METHOD 09/07/2024 3:07 PM EDT [facility] Hematocrit 25.9(L) 35.0 - 47.0 % LAB HEMETOLOGY METHOD 09/07/2024 3:07 PM EDT [facility] MCV 107.9(H) 79.0 - 98.0 FL LAB HEMETOLOGY METHOD 09/07/2024 3:07 PM EDT [facility] MCH 34.2(H) 27.0 - 32.0 pcg LAB HEMETOLOGY METHOD 09/07/2024 3:07 PM EDT [facility] MCHC 31.7(L) 32.0 - 37.0 g/dL LAB HEMETOLOGY METHOD 09/07/2024 3:07 PM EDT [facility] RDW 19.3(H) 11.0 - 15.0 % LAB HEMETOLOGY METHOD 09/07/2024 3:07 PM EDT [facility] Platelets 176 130 - 400 K/mcL LAB HEMETOLOGY METHOD 09/07/2024 3:07 PM EDT [facility] MPV 9.0 7.0 - 11.0 FL LAB HEMETOLOGY METHOD 09/07/2024 3:07 PM EDT [facility] NRBC 0.0 <1.0 % LAB HEMETOLOGY METHOD 09/07/2024 3:07 PM EDT [facility] NRBC Absolute 0.00 <0.10 K/mcL LAB HEMETOLOGY METHOD 09/07/2024 3:07 PM EDT [facility] Blood Venous blood specimen / Unknown Venipuncture / Unknown 09/07/2024 5:11 AM EDT 09/07/2024 12:03 PM EDT us Lincoln Crespo MD LAB BLOOD ORDERABLES Final Resu lt [facility] [address] [place] [address], [place] [phone] documented in this encounter Visit Diagnoses Diagnosis Essential (primary) hypertension Unspecified essential hypertension Atherosclerotic heart disease of [place] coronary artery without angina pectoris Anemia, unspecified documented in this encounter Care Teams Rrts Relationship Specialty Start Date End Date John Avina DO [address] [place] [phone] PCP - General Internal Medicine 06/10/24 documented as of this encounter
--- OUTSIDE RECORDS SUMMARY | 2025-01-19 13:24 | XMS_ITS | Encounter Summary ---
Author Organization [employer] [facility] Address [address] [place] [address] Care Team Providers Care Business Performance Analyst Name Role Phone John Avina DO Primary Care Provider [phone] Encounter Details Date Type Department Care Team (Late st Contact Info) Description 08/19/2024 Lab Requisition [facility] - Main Lab 299 [facility] [place] [address] Lincoln Crespo MD [address] [place] [address] Essential (primary) hypertension; Atherosclerotic heart disease of [place] coronary artery without angina pectoris; Anemia, unspecified; [...] Essential (primary) hypertension Atherosclerotic heart disease of [place] coronary artery without angina pectoris Anemia, unspecified Chronic kidney disease, unspecified BASIC METABOLIC PANEL Routine 08/20/2024 6:56 AM EDT Essential (primary) hypertension Atherosclerotic heart disease of [place] coronary artery without angina pectoris Anemia, unspecified Chronic kidney disease, unspecified documented in this encounter Results * (ABNORMAL) Basic metabolic panel (08/20/2024 6:56 AM EDT) Sodium 140 133 - 145 mmol/L LAB CHEMISTRY METHOD 08/20/2024 10:17 AM [facility] Potassium 4.1 3.5 - 5.5 mmol/L LAB CHEMISTRY METHOD 08/20/2024 10:17 AM [facility] Chloride 107 96 - 110 mmol/L LAB CHEMISTRY METHOD 08/20/2024 10:17 AM [facility] CO2 25 21 - 32 mmol/L LAB CHEMISTRY METHOD 08/20/2024 10:17 AM [facility] Anion Gap 8 3 - 11 LAB CHEMISTRY METHOD 08/20/2024 10:17 AM [facility] Glucose 100 70 - 100 mg/dL LAB CHEMISTRY METHOD 08/20/2024 10:17 AM [facility] BUN 31(H) 5 - 25 mg/dL LAB CHEMISTRY METHOD 08/20/2024 10:17 AM [facility] Creatinine 1.63(H) 0.50 - 1.10 mg/dL LAB CHEMISTRY METHOD 08/20/2024 10:17 AM [facility] eGFR 32(L) >=60 mL/min/1. 73m2 LAB CHEMISTRY METHOD 08/20/2024 10:17 AM [facility] Comment:Calculation based on the Chronic Kidney Disease Epidemiology Collaboration (CKD-EPI) equation refit without adjustment for race. BUN/Creatinine Ratio 19.0 LAB CHEMISTRY METHOD 08/20/2024 10:17 AM [facility] Calcium 9.2 8.5 - 10.5 mg/dL LAB CHEMISTRY METHOD 08/20/2024 10:17 AM [facility] Blood Venous blood specimen / Unknown Venipuncture / Unknown 08/20/2024 6:56 AM EDT 08/20/2024 9:28 AM EDT us Lincoln Crespo MD LAB BLOOD ORDERABLES Final Resu lt [facility] [address] [place] [address], * (ABNORMAL) Complete blood count (08/20/2024 6:56 AM EDT) [facility] WBC 8.6 4.8 - 10.8 K/mcL LAB HEMETOLOGY METHOD 08/20/2024 9:58 AM [facility] RBC 3.30(L) 3.80 - 4.80 M/mcL LAB HEMETOLOGY METHOD [facility] Hemoglobin 10.9(L) 11.5 - 16.0 g/dL LAB HEMETOLOGY METHOD 08/20/2024 9:58 AM [facility] Hematocrit 34.1(L) 35.0 - 47.0 % LAB HEMETOLOGY METHOD 08/20/2024 9:58 AM [facility] MCV 102.1(H) 79.0 - 98.0 FL LAB HEMETOLOGY METHOD 08/20/2024 9:58 AM [facility] MCH 32.6(H) 27.0 - 32.0 pcg LAB HEMETOLOGY METHOD 08/20/2024 9:58 AM [facility] MCHC 32.0 32.0 - 37.0 g/dL LAB HEMETOLOGY METHOD 08/20/2024 9:58 AM [facility] RDW 18.5(H) 11.0 - 15.0 % LAB HEMETOLOGY METHOD 08/20/2024 9:58 AM [facility] Platelets 264 130 - 400 K/mcL LAB HEMETOLOGY METHOD 08/20/2024 9:58 AM [facility] MPV 9.0 7.0 - 11.0 FL LAB HEMETOLOGY METHOD 08/20/2024 9:58 AM [facility] NRBC 0.0 <1.0 % LAB HEMETOLOGY METHOD 08/20/2024 9:[address] [facility] NRBC Absolute 0.00 <0.10 K/mcL LAB HEMETOLOGY METHOD 08/20/2024 9:[address] [facility] Blood Venous blood specimen / Unknown Venipuncture / Unknown 08/20/2024 6:56 AM EDT 08/20/2024 9:29 AM EDT us Lincoln Crespo MD LAB BLOOD ORDERABLES Final Resu lt [facility] [address] [place] [address], documented in this encounter Visit Diagnoses Diagnosis Essential (primary) hypertension Unspecified essential hypertension Atherosclerotic heart disease of [place] coronary artery without angina pectoris Anemia, unspecified Chronic kidney disease, unspecified documented in this encounter Care Teams Business Performance Analyst Relationship Specialty Start Date End Date John Avina DO [address] [place] [phone] PCP - General Internal Medicine 06/10/24 documented as of this encounter
--- OUTSIDE RECORDS SUMMARY | 2025-01-19 13:24 | XMS_ITS | Encounter Summary ---
Author Organization [employer] [facility] Address [address] [place] [address] Care Team Providers Care Ruling Machine Feeder Name Role Phone John Avina DO Primary Care Provider [phone] Encounter Details Date Type Department Care Team (Late st Contact Info) Description 08/15/2024 Lab Requisition [facility] - Main Lab 299 [facility] [place] [address] Lincoln Crespo MD [address] [place] [address] Other ulcerative colitis with rectal [...] AM EDT) WBC 6.7 4.8 - 10.8 K/[facility] LAB HEMETOLOGY METHOD 08/15/2024 11:29 AM EDT [facility] RBC 3.10(L) 3.80 - 4.80 M/[facility] LAB HEMETOLOGY METHOD 08/15/2024 11:29 AM [facility] Hemoglobin 10.4(L) 11.5 - 16.0 g/dL LAB HEMETOLOGY METHOD 08/15/2024 11:29 AM [facility] Hematocrit 31.4(L) 35.0 - 47.0 % LAB HEMETOLOGY METHOD 08/15/2024 11:29 AM [facility] MCV 100.6(H) 79.0 - 98.0 FL LAB HEMETOLOGY METHOD 08/15/2024 11:29 AM [facility] MCH 33.3(H) 27.0 - 32.0 pcg LAB HEMETOLOGY METHOD 08/15/2024 11:29 AM [facility] MCHC 33.1 32.0 - 37.0 g/dL LAB HEMETOLOGY METHOD 08/15/2024 11:29 AM [facility] RDW 18.6(H) 11.0 - 15.0 % LAB HEMETOLOGY METHOD 08/15/2024 11:29 AM [facility] Platelets 228 130 - 400 K/mcL LAB HEMETOLOGY METHOD 08/15/2024 11:29 AM [facility] MPV 9.4 7.0 - 11.0 FL LAB HEMETOLOGY METHOD 08/15/2024 11:29 AM [facility] NRBC 0.0 <1.0 % LAB HEMETOLOGY METHOD 08/15/2024 11:29 AM [facility] NRBC Absolute 0.00 <0.10 K/mcL LAB HEMETOLOGY METHOD 08/15/2024 11:29 AM [facility] Blood Venous blood specimen / Unknown Venipuncture / Unknown 08/15/2024 9:21 AM EDT 08/15/2024 10:30 AM EDT Lincoln Crespo MD LAB BLOOD ORDERABLES [facility] LAB [address] [place] [address], documented in this encounter Visit Diagnoses Diagnosis Other ulcerative colitis with rectal bleeding (CMS/HCC V24, CMS/HCC V28) Anemia in chronic kidney disease (CODE) documented in this encounter Care Teams Ruling Machine Feeder Relationship Specialty Start Date End Date John Avina DO [address] [place] [phone] PCP - General Internal Medicine 06/10/24 documented as of this encounter
--- OUTSIDE RECORDS SUMMARY | 2025-01-19 13:24 | XMS_ITS | Encounter Summary ---
Author Organization [employer] Address [address] [place] [address] Care Team Providers Care Motor Winder Name Role Phone John Avina DO Primary Care Provider [phone] Encounter Details Date Type Department Care Team (Late st Contact Info) Description 09/16/2024 Lab Requisition [facility] - Main Lab 299 [facility] [place] [address] Lincoln Crespo MD [address] [place] [address] Essential (primary) hypertension; Atherosclerotic heart disease of [place] coronary artery without angina pectoris; Anemia, unspecified; [...] Resu lt [facility] [address] [place] [address], * (ABNORMAL) Complete blood count (09/17/2024 8:40 AM EDT) [facility] WBC 6.5 4.8 - 10.8 K/mcL LAB HEMETOLOGY METHOD 09/17/2024 10:30 AM EDT [facility] RBC 2.70(L) 3.80 - 4.80 M/mcL LAB HEMETOLOGY METHOD 09/17/2024 10:30 AM EDT [facility] Hemoglobin 9.4(L) 11.5 - 16.0 g/dL LAB HEMETOLOGY METHOD 09/17/2024 10:30 AM [facility] Hematocrit 28.1(L) 35.0 - 47.0 % LAB HEMETOLOGY METHOD 09/17/2024 10:30 AM [facility] MCV 106.0(H) 79.0 - 98.0 FL LAB HEMETOLOGY METHOD 09/17/2024 10:30 [facility] MCH 35.5(H) 27.0 - 32.0 pcg LAB HEMETOLOGY METHOD 09/17/2024 10:30 AM [facility] MCHC 33.5 32.0 - 37.0 g/dL LAB HEMETOLOGY METHOD 09/17/2024 10:30 [facility] RDW 18.7(H) 11.0 - 15.0 % LAB HEMETOLOGY METHOD 09/17/2024 10:30 AM [facility] Platelets 183 130 - 400 K/mcL LAB HEMETOLOGY METHOD 09/17/2024 10:30 AM [facility] MPV 9.4 7.0 - 11.0 FL LAB HEMETOLOGY METHOD 09/17/2024 10:30 AM EDT [facility] NRBC 0.0 <1.0 % LAB HEMETOLOGY METHOD 09/17/2024 10:30 AM EDT [facility] NRBC Absolute 0.00 <0.10 K/mcL LAB HEMETOLOGY METHOD 09/17/2024 10:30 AM EDT [facility] Blood Venous blood specimen / Unknown Venipuncture / Unknown 09/17/2024 8:40 AM EDT 09/17/2024 10:05 AM EDT us Lincoln Crespo MD LAB BLOOD ORDERABLES Final Resu lt [facility] [address] [place] [address], documented in this encounter Visit Diagnoses Diagnosis Essential (primary) hypertension Unspecified essential hypertension Atherosclerotic heart disease of [place] coronary artery without angina pectoris Anemia, unspecified Chronic kidney disease, unspecified documented in this encounter Care Teams Motor Winder Relationship Specialty Start Date End Date John Avina DO [address] [place] [phone] PCP - General Internal Medicine 06/10/24 documented as of this encounter
--- OUTSIDE RECORDS SUMMARY | 2025-01-19 13:24 | XMS_ITS | Encounter Summary ---
Author Organization [employer] Address [address] [place] [address] Care Team Providers Care Operations Scheduler Name Role Phone John Avina DO Primary Care Provider [phone] Encounter Details Date Type Department Care Team (Late st Contact Info) Description 09/09/2024 Lab Requisition [facility] - Main Lab 299 [facility] [place] [address] Lincoln Crespo MD [address] [place] [address] Essential (primary) hypertension; Atherosclerotic heart disease of [place] coronary artery without angina pectoris; Anemia, unspecified; [...] Essential (primary) hypertension Atherosclerotic heart disease of [place] coronary artery without angina pectoris Anemia, unspecified Chronic kidney disease, unspecified BASIC METABOLIC PANEL Routine 09/10/2024 6:12 AM EDT Essential (primary) hypertension Atherosclerotic heart disease of [place] coronary artery without angina pectoris Anemia, unspecified Chronic kidney disease, unspecified documented in this encounter Results * (ABNORMAL) Basic metabolic panel (09/10/2024 6:12 AM EDT) Sodium 146(H) 133 - 145 mmol/L LAB CHEMISTRY METHOD 09/10/2024 10:04 AM [facility] Potassium 4.0 3.5 - 5.5 mmol/L LAB CHEMISTRY METHOD 09/10/2024 10:04 AM [facility] Chloride 113(H) 96 - 110 mmol/L LAB CHEMISTRY METHOD 09/10/2024 10:04 AM [facility] CO2 26 21 - 32 mmol/L LAB CHEMISTRY METHOD 09/10/2024 10:04 AM [facility] Anion Gap 7 3 - 11 LAB CHEMISTRY METHOD 09/10/2024 10:04 AM [facility] Glucose 84 70 - 100 mg/dL LAB CHEMISTRY METHOD 09/10/2024 10:04 AM [facility] BUN 44(H) 5 - 25 mg/dL LAB CHEMISTRY METHOD 09/10/2024 10:04 AM [facility] Creatinine 2.03(H) 0.50 - 1.10 mg/dL LAB CHEMISTRY METHOD 09/10/2024 10:04 AM [facility] eGFR 25(L) >=60 mL/min/1. 73m2 LAB CHEMISTRY METHOD 09/10/2024 10:04 AM [facility] Comment:Calculation based on the Chronic Kidney Disease Epidemiology Collaboration (CKD-EPI) equation refit without adjustment for race. BUN/Creatinine Ratio 21.7 LAB CHEMISTRY METHOD 09/10/2024 10:04 AM [facility] Calcium 8.8 8.5 - 10.5 mg/dL LAB CHEMISTRY METHOD 09/10/2024 10:04 AM [facility] Blood Venous blood specimen / Unknown Venipuncture / Unknown 09/10/2024 6:12 AM EDT 09/10/2024 9:16 AM EDT us Lincoln Crespo MD LAB BLOOD ORDERABLES Final Resu lt [facility] [address] [place] [address], * (ABNORMAL) Complete blood count (09/10/2024 6:12 AM EDT) [facility] WBC 5.2 4.8 - 10.8 K/mcL LAB HEMETOLOGY METHOD 09/10/2024 9:33 AM EDT [facility] RBC 2.50(L) 3.80 - 4.80 M/mcL LAB HEMETOLOGY METHOD 09/10/2024 9:33 AM EDT [facility] Hemoglobin 8.6(L) 11.5 - 16.0 g/dL LAB HEMETOLOGY METHOD 09/10/2024 9:33 AM EDT [facility] Hematocrit 26.4(L) 35.0 - 47.0 % LAB [facility]EMETOLOGY [facility] MCV 106.5(H) 79.0 - 98.0 FL LAB HEMETOLOGY METHOD 09/10/2024 9:33 AM EDT [facility] MCH 34.7(H) 27.0 - 32.0 pcg LAB HEMETOLOGY METHOD [facility]/10[facility]24 [facility] MCHC 32.6 32.0 - 37.0 g/dL LAB HEMETOLOGY METHOD 09/10/2024 [facility] RDW 19.2(H) 11.0 - 15.0 % LAB HEMETOLOGY METHOD 09/10/2024 9:33 AM EDT [facility] Platelets 161 130 - 400 K/mcL LAB HEMETOLOGY METHOD 09/10/2024 9:33 AM EDT [facility] MPV 9.3 7.0 - 11.0 FL LAB HEMETOLOGY METHOD 09/10/2024 9:33 AM EDT [facility] NRBC 0.0 <1.0 % LAB HEMETOLOGY METHOD 09/10/2024 9:33 AM EDT [facility] NRBC Absolute 0.00 <0.10 K/mcL LAB HEMETOLOGY METHOD 09/10/2024 9:33 AM EDT [facility] Blood Venous blood specimen / Unknown Venipuncture / Unknown 09/10/2024 6:12 AM EDT 09/10/2024 9:16 AM EDT us Lincoln Crespo MD LAB BLOOD ORDERABLES Final Resu lt [facility] [address] [place] [address], documented in this encounter Visit Diagnoses Diagnosis Essential (primary) hypertension Unspecified essential hypertension Atherosclerotic heart disease of [place] coronary artery without angina pectoris Anemia, unspecified Chronic kidney disease, unspecified documented in this encounter Care Teams Operations Scheduler Relationship Specialty Start Date End Date John Avina DO [address] [place] [phone] PCP - General Internal Medicine 06/10/24 documented as of this encounter
--- OUTSIDE RECORDS SUMMARY | 2025-01-19 13:24 | XMS_ITS | Encounter Summary ---
Author Organization [employer] Address [address] [place] [phone] Care Team Providers Care Fruit And Vegetable Parer Name Role Phone John Avina DO Primary Care Provider Encounter Details Date Type Department Care Team (Late st Contact Info) Description 09/18/2024 Lab Requisition [facility] - Main Lab [address] [facility] [address] [place] [address] Lincoln Crespo MD [address] [place] [address] Essential (primary) hypertension; Atherosclerotic heart disease of [place] coronary artery without angina pectoris; Anemia, unspecified [...] Unspecified essential hypertension Atherosclerotic heart disease of [place] coronary artery without angina pectoris Anemia, unspecified documented in this encounter Care Teams Fruit And Vegetable Parer Relationship Specialty Start Date End Date John Avina DO [address] [place] [phone] PCP - General Internal Medicine 06/10/24 documented as of this encounter
--- OUTSIDE RECORDS SUMMARY | 2025-01-19 13:24 | XMS_ITS | Encounter Summary ---
Author Organization [employer] Address [id number] [place] [phone] Care Team Providers Care Pipe Covering Molder Name Role Phone John Avina DO Primary Care Provider [phone] Encounter Details Date Type Department Care Team (Late st Contact Info) Description 08/12/2024 Lab Requisition [facility] - Main Lab [address] [facility] [place] [address] Lincoln Crespo MD [address] [place] [address] Essential (primary) hypertension; Atherosclerotic heart disease of [place] coronary artery without angina pectoris; Anemia, unspecified; [...] Essential (primary) hypertension Atherosclerotic heart disease of [place] coronary artery without angina pectoris Anemia, unspecified Chronic kidney disease, unspecified Hypothyroidism, unspecified Hyperlipidemia, unspecified COMPREHENSIVE METABOLIC PANEL Routine 08/12/2024 4:49 AM EDT Essential (primary) hypertension Atherosclerotic heart disease of [place] coronary artery without angina pectoris Anemia, unspecified Chronic kidney disease, unspecified Hypothyroidism, unspecified Hyperlipidemia, unspecified documented in this encounter Results * (ABNORMAL) Comprehensive metabolic panel (08/12/2024 4:49 AM EDT) Sodium 140 133 - 145 mmol/L LAB CHEMISTRY METHOD 08/12/2024 11:43 AM [facility] Potassium 4.4 3.5 - 5.5 mmol/L LAB CHEMISTRY METHOD 08/12/2024 11:43 AM [facility] Chloride 104 96 - 110 mmol/L LAB CHEMISTRY METHOD 08/12/2024 11:43 AM [facility] CO2 30 21 - 32 mmol/L LAB CHEMISTRY METHOD 08/12/2024 11:43 AM [facility] Anion Gap 6 3 - 11 LAB CHEMISTRY METHOD 08/12/2024 11:43 AM [facility] Glucose 81 70 - 100 mg/dL LAB CHEMISTRY METHOD 08/12/2024 11:43 AM [facility] BUN 35(H) 5 - 25 mg/dL LAB CHEMISTRY METHOD 08/12/2024 11:43 AM [facility] Creatinine 1.81(H) 0.50 - 1.10 mg/dL LAB CHEMISTRY METHOD 08/12/2024 11:43 AM [facility] eGFR 29(L) >=60 mL/min/1. 73m2 LAB CHEMISTRY METHOD 08/12/2024 11:43 AM [facility] Comment:Calculation based on the Chronic Kidney Disease Epidemiology Collaboration (CKD-EPI) equation refit without adjustment for race. BUN/Creatinine Ratio 19.3 LAB CHEMISTRY METHOD 08/12/2024 11:43 AM [facility] Calcium 8.3(L) 8.5 - 10.5 mg/dL LAB CHEMISTRY METHOD 08/12/2024 11:43 AM [facility] AST (SGOT) 7(L) 10 - 42 unit/L LAB CHEMISTRY METHOD 08/12/2024 11:43 AM [facility] ALT (SGPT) 7(L) 10 - 60 unit/L LAB CHEMISTRY METHOD 08/12/2024 11:43 AM EDT [facility] Alkaline Phosphatase 65 42 - 121 unit/L LAB CHEMISTRY METHOD 08/12/2024 11:43 AM T [facility] Total Protein 5.5(L) 6.0 - 8.0 g/dL LAB CHEMISTRY METHOD 08/12/2024 11:43 AM [facility] Albumin 2.3(L) 3.2 - 5.0 g/dL LAB CHEMISTRY METHOD 08/12/2024 11:43 AM T [facility] Total Bilirubin 0.5 0.0 - 1.4 mg/dL LAB CHEMISTRY METHOD 08/12/2024 11:43 AM [facility] Blood Venous blood specimen / Unknown Venipuncture / Unknown 08/12/2024 4:49 AM EDT 08/12/2024 10:25 AM EDT Lincoln Crespo MD LAB BLOOD ORDERABLES Final Resu lt [facility] [address] [place] [address], * (ABNORMAL) Complete blood count (08/12/2024 4:49 AM EDT) WBC 6.8 4.8 - 10.8 K/mcL LAB HEMETOLOGY METHOD 08/12/2024 11:01 AM [facility] RBC 2.20(L) 3.80 - 4.80 M/mcL LAB HEMETOLOGY METHOD 08/12/2024 11:01 AM [facility] Hemoglobin 7.4(L) 11.5 - 16.0 g/dL LAB HEMETOLOGY METHOD 08/12/2024 11:01 AM [facility] Hematocrit 23.3(L) 35.0 - 47.0 % LAB HEMETOLOGY METHOD 08/12/2024 11:01 AM EDT [facility] MCV 108.4(H) 79.0 - 98.0 FL LAB HEMETOLOGY METHOD 08/12/2024 11:01 AM EDT [facility] MCH 34.4(H) 27.0 - 32.0 pcg LAB HEMETOLOGY METHOD [facility]24 [facility] MCHC 31.8(L) 32.0 - 37.0 g/dL LAB HEMETOLOGY METHOD 08/12/2024 11:01 AM EDT [facility] RDW 17.7(H) 11.0 - 15.0 % LAB HEMETOLOGY METHOD 08/12/2024 11:[facility] Platelets 203 130 - 400 K/mcL LAB HEMETOLOGY METHOD 08/12/2024 11:01 [facility] MPV 9.8 7.0 - 11.0 FL LAB HEMETOLOGY METHOD 08/12/2024 11:01 [facility] NRBC 0.0 <1.0 % LAB HEMETOLOGY METHOD 08/12/2024 11:01 [facility] NRBC Absolute 0.00 <0.10 K/mcL LAB HEMETOLOGY METHOD 08/12/2024 11:01 AM [facility] Blood Venous blood specimen / Unknown Venipuncture / Unknown 08/12/2024 4:49 AM EDT 08/12/2024 10:25 AM EDT us Lincoln Crespo MD LAB BLOOD ORDERABLES Final Resu lt [facility] [address] [place] [address], [place] [phone] documented in this encounter Visit Diagnoses Diagnosis Essential (primary) hypertension Unspecified essential hypertension Atherosclerotic heart disease of [place] coronary artery without angina pectoris Anemia, unspecified Chronic kidney disease, unspecified Hypothyroidism, unspecified Hyperlipidemia, unspecified documented in this encounter Care Teams Pipe Covering Molder Relationship Specialty Start Date End Date John Avina DO [address] [place] [phone] PCP - General Internal Medicine 06/10/24 documented as of this encounter
--- OUTSIDE RECORDS SUMMARY | 2025-01-19 13:24 | XMS_ITS | Encounter Summary ---
Author Organization [employer] Address [address] [place] [address] Care Team Providers Care Potato Chip Cooker Machine Name Role Phone John Avina DO Primary Care Provider [phone] Encounter Details Date Type Department Care Team (Late st Contact Info) Description 08/30/2024 Lab Requisition [facility] - Main Lab 299 [facility] [place] [address] Lincoln Crespo MD [address] [place] [address] Essential (primary) hypertension; Atherosclerotic heart disease of [place] coronary artery without angina pectoris; Anemia, unspecified [...] Essential (primary) hypertension Atherosclerotic heart disease of [place] coronary artery without angina pectoris Anemia, unspecified COMPREHENSIVE METABOLIC PANEL Routine 08/31/2024 5:18 AM EDT Essential (primary) hypertension Atherosclerotic heart disease of [place] coronary artery without angina pectoris Anemia, unspecified documented in this encounter Results * (ABNORMAL) Comprehensive metabolic panel (08/31/2024 5:18 AM EDT) Sodium 141 133 - 145 mmol/L LAB CHEMISTRY METHOD 08/31/2024 1:17 PM EDT [facility] Potassium 4.7 3.5 - 5.5 mmol/L LAB CHEMISTRY METHOD 08/31/2024 1:17 PM [facility] Comment:Hemolysis present Chloride 110 96 - 110 mmol/L LAB CHEMISTRY METHOD 08/31/2024 1:17 PM [facility] CO2 15(L) 21 - 32 mmol/L LAB CHEMISTRY METHOD 08/31/2024 1:17 PM [facility] Anion Gap 16(H) 3 - 11 LAB CHEMISTRY METHOD 08/31/2024 1:17 PM [facility] Glucose 67(L) 70 - 100 mg/dL LAB CHEMISTRY METHOD 08/31/2024 1:17 PM [facility] BUN 49(H) 5 - 25 mg/dL LAB CHEMISTRY METHOD 08/31/2024 1:17 PM [facility] Creatinine 1.99(H) 0.50 - 1.10 mg/dL LAB CHEMISTRY METHOD 08/31/2024 1:17 PM [facility] eGFR 25(L) >=60 mL/min/1. 73m2 LAB CHEMISTRY METHOD 08/31/2024 1:17 PM [facility] Comment:Calculation based on the Chronic Kidney Disease Epidemiology Collaboration (CKD-EPI) equation refit without adjustment for race. BUN/Creatinine Ratio 24.6 LAB CHEMISTRY METHOD 08/31/2024 1:17 PM [facility] Calcium 9.1 8.5 - 10.5 mg/dL LAB CHEMISTRY METHOD 08/31/2024 1:17 PM [facility] AST (SGOT) 14 10 - 42 unit/L LAB CHEMISTRY METHOD 08/31/2024 1:17 PM [facility] ALT (SGPT) 18 10 - 60 unit/L LAB CHEMISTRY METHOD 08/31/2024 1:17 PM [facility] Alkaline Phosphatase 70 42 - 121 unit/L LAB CHEMISTRY METHOD 08/31/2024 1:17 PM EDT [facility] Total Protein 6.6 6.0 - 8.0 g/dL LAB CHEMISTRY METHOD 08/31/2024 1:17 PM EDT [facility] Albumin 3.1(L) 3.2 - 5.0 g/dL LAB CHEMISTRY METHOD 08/31/2024 1:17 PM EDT [facility] Total Bilirubin 0.4 0.0 - 1.4 mg/dL LAB CHEMISTRY METHOD 08/31/2024 1:17 PM EDT [facility] Blood Venous blood specimen / Unknown 08/31/2024 5:18 AM EDT 08/31/2024 11:34 AM EDT [facility] LAB - 08/31/2024 1:17 PM EDT Short sample, interpret results with caution us Lincoln Crespo MD LAB BLOOD ORDERABLES Final Resu lt [facility] [address] [place] [address], [place] [phone] * (ABNORMAL) Complete blood count (08/31/2024 5:18 AM EDT) WBC 5.2 4.8 - 10.8 K/mcL LAB HEMETOLOGY METHOD 08/31/2024 1:43 PM EDT [facility] RBC 2.50(L) 3.80 - 4.80 M/mcL LAB HEMETOLOGY METHOD 08/31/2024 1:43 PM EDT [facility] Hemoglobin 8.6(L) 11.5 - 16.0 g/dL LAB HEMETOLOGY METHOD 08/31/2024 1:43 PM EDT [facility] Hematocrit 27.1(L) 35.0 - 47.0 % LAB HEMETOLOGY METHOD 08/31/2024 1:43 PM EDT [facility] MCV 106.7(H) 79.0 - 98.0 FL LAB HEMETOLOGY METHOD 08/31/2024 1:43 PM EDT [facility] MCH 33.9(H) 27.0 - 32.0 pcg LAB HEMETOLOGY METHOD 08/31/2024 1:43 PM EDT [facility] MCHC 31.7(L) 32.0 - 37.0 g/dL LAB HEMETOLOGY METHOD 08/31/2024 1:43 PM EDT [facility] RDW 19.2(H) 11.0 - 15.0 % LAB HEMETOLOGY METHOD 08/31/2024 1:43 PM EDT [facility] Platelets 223 130 - 400 K/mcL LAB HEMETOLOGY METHOD 08/31/2024 1:43 PM EDT [facility] MPV 9.6 7.0 - 11.0 FL LAB HEMETOLOGY METHOD 08/31/2024 1:43 PM EDT [facility] NRBC 0.0 <1.0 % LAB HEMETOLOGY METHOD 08/31/2024 1:43 PM EDT [facility] NRBC Absolute 0.00 <0.10 K/mcL LAB HEMETOLOGY METHOD 08/31/2024 1:43 PM EDT [facility] Blood Venous blood specimen / Unknown 08/31/2024 5:18 AM EDT 08/31/2024 11:31 AM EDT us Lincoln Crespo MD LAB BLOOD ORDERABLES Final Resu lt [facility] [address] [place] [address], documented in this encounter Visit Diagnoses Diagnosis Essential (primary) hypertension Unspecified essential hypertension Atherosclerotic heart disease of [place] coronary artery without angina pectoris Anemia, unspecified documented in this encounter Care Teams Potato Chip Cooker Machine Relationship Specialty Start Date End Date John Avina DO [address] [place] [phone] PCP - General Internal Medicine 06/10/24 documented as of this encounter
--- OUTSIDE RECORDS SUMMARY | 2025-01-19 13:24 | XMS_ITS | Encounter Summary ---
Author Organization [facility] Address [address] [place] [address] Care Team Providers Care Experimental Plastics Fabricator Name Role Phone John Avina DO Primary Care Provider [phone] Encounter Details Date Type Department Care Team (Late st Contact Info) Description 08/17/2024 Lab Requisition [facility] - Main Lab [address] [facility] [place] [address] Lincoln Crespo MD [address] [place] [address] Other ulcerative colitis with rectal [...] AM EDT) WBC 7.1 4.8 - 10.8 K/[facility] LAB HEMETOLOGY METHOD 08/18/2024 11:[address] [facility] RBC 2.80(L) 3.80 - 4.80 M/[facility] LAB HEMETOLOGY METHOD 08/18/2024 11:09 AM [facility] Hemoglobin 9.2(L) 11.5 - 16.0 g/dL LAB HEMETOLOGY METHOD 08/18/2024 11:09 AM [facility] LAB Hematocrit 28.6(L) 35.0 - 47.0 % LAB HEMETOLOGY METHOD 08/18/2024 11:09 AM [facility] LAB MCV 103.6(H) 79.0 - 98.0 FL LAB HEMETOLOGY METHOD 08/18/2024 11:09 AM [facility] MCH 33.3(H) 27.0 - 32.0 pcg LAB HEMETOLOGY METHOD 08/18/2024 11:09 AM [facility] MCHC 32.2 32.0 - 37.0 g/dL LAB HEMETOLOGY METHOD 08/18/2024 11:09 AM [facility] RDW 18.5(H) 11.0 - 15.0 % LAB HEMETOLOGY METHOD 08/18/2024 11:09 AM [facility] LAB Platelets 216 130 - 400 K/mcL LAB HEMETOLOGY METHOD 08/18/2024 11:09 AM [facility] MPV 9.2 7.0 - 11.0 FL LAB HEMETOLOGY METHOD 08/18/2024 11:09 AM [facility] NRBC 0.0 <1.0 % LAB HEMETOLOGY METHOD 08/18/2024 11:09 AM [facility] NRBC Absolute 0.00 <0.10 K/mcL LAB HEMETOLOGY METHOD 08/18/2024 11:09 AM [facility] LAB Blood Venous blood specimen / Unknown Venipuncture / Unknown 08/18/2024 4:57 AM EDT 08/18/2024 10:57 AM EDT Lincoln Crespo MD LAB BLOOD ORDERABLES Final Resu lt [facility] HOSPITAL LAB [address] [place] [address], documented in this encounter Visit Diagnoses Diagnosis Other ulcerative colitis with rectal bleeding (CMS/HCC V24, CMS/HCC V28) Anemia in chronic kidney disease (CODE) documented in this encounter Care Teams Experimental Plastics Fabricator Relationship Specialty Start Date End Date John Avina DO [address] [place] [phone] PCP - General Internal Medicine 06/10/24 documented as of this encounter
[2025-01-19 13:36] LABS: MANUAL DIFF FLAG NO
[2025-01-19 13:39] LABS: Hematocrit 30.4 % (37.0-47.0); Hemoglobin 10.0 g/dl (12.0-16.0); Imm Gran Abs Auto 0.02 X10*3/uL (0.00-0.03); Imm Gran Pct Auto 0.3 % (0.0-0.4); Lymphocytes Absolute Auto 0.8 X10*3/uL (1.2-4.9); Mean Corpuscular HGB Conc 32.9 g/dl (31.0-35.0); Mean Corpuscular Hemoglobin 33.4 pg (27.0-33.0); Mean Corpuscular Volume 101.7 fL (80.0-98.0); NRBC Abs Auto 0.000 X10*3/uL (0.0-0.012); NRBC Pct Auto 0.0 /100WBC (0.0-0.2); Platelet Count 156 X10*3/uL (160-400); Red Blood Count 2.99 X10*6/uL (4.20-5.50); White Blood Count 6.6 X10*3/uL (4.8-10.8)
[2025-01-19 14:21] LABS: Alanine Aminotransferase 59 U/L (0-31); Albumin Level 4.4 g/dL (3.5-5.0); Alkaline Phosphatase 62 U/L (39-117); Anion Gap 13 (12-20); Aspartate Amino Transferase 30 U/L (5-31); Blood Urea Nitrogen 54 mg/dL (9-16); Calcium 9.6 mg/dL (8.4-10.2); Carbon Dioxide 32 mmol/L (22-29); Chloride 105 mmol/L (96-108); Estimated Glomerular Filt Rate 25; Magnesium 2.4 mg/dL (1.6-2.6); Potassium 3.6 mmol/L (3.3-5.1); Sodium 146 mmol/L (135-145); Total Protein 7.3 g/dL (6.5-8.0)
== END 2025-01-19 12:19 | disposition home or self-care (01) ==
LOC: HO.HMGCLDS 12:18
PROVIDERS: PCP Internal Medicine; Visit Provider Physician Assistant Medical
DX: Z00.00 Encounter for general adult medical examination without abnormal findings (principal)
CPT/HCPCS: 36415; 80053; 83735; 85025

== ENCOUNTER → 2025-02-02 12:40 | Outpatient (REF) | payer MEDICARE, SELFPAY ==
--- NOTE | 2025-02-02 12:42 | CA_ITS ---
Transthoracic Echocardiogram Patient (Last, First, Middle): Tonia Hernandez, Gender: F Date of : 1945 Age: 79 Procedure Date: 02/02/2025 Procedure Type: Transthoracic Echocardiogram Location: OP Height: 149.86 cm Weight: 55.79 kg BSA: 1.50 m2 Heart Rate: bpm BP: 140 / 62 mmHg Window And Door Installer: TO Referring MD: Lia Doshi CLAY MILLER-C Symptoms: I34.0 - Nonrheumatic mitral (valve) insufficiency Study Quality: Fair, pt declines contrast Conclusions: - The left ventricular systolic function is moderately decreased. The calculated ejection fraction is 37% by biplane method. - The inferolateral wall is akinetic. - Evidence suggests grade III (severe) diastolic dysfunction. - The left atrium is severely dilated. - The posterior mitral leaflet has restricted mobility. There is moderate to severe mitral valve regurgitation. - There is a small loculated pericardial effusion overlying the left ventricle. Findings Procedure Information The patient declines contrast. Left Ventricle Normal left ventricular cavity size. There is normal left ventricular wall thickness. The left ventricular systolic function is moderately decreased. The calculated ejection fraction is 37% by biplane method. There is evidence of regional wall motion abnormalities. Evidence suggests grade III (severe) diastolic dysfunction. Wall Motion Rest Echo Findings The inferolateral wall is akinetic. Right Ventricle Normal right ventricular cavity size. There is mildly decreased right ventricular systolic function. Atria The left atrium is severely dilated. The right atrium is normal in size. Aortic Valve There is a normal trileaflet aortic valve. There is mild calcification of the aortic valve. There is no aortic valve stenosis. There is mild aortic valve regurgitation. Mitral Valve The posterior mitral leaflet has restricted mobility. There is mild mitral annular calcification. There is moderate to severe mitral valve regurgitation. There is no mitral valve stenosis. Pulmonic Valve The pulmonic valve is likely normal. Tricuspid Valve There is trace tricuspid valve regurgitation. There is no evidence of pulmonary hypertension. Great Vessels The asc aorta is normal in size. Venous The inferior vena cava is normal in size and collapses greater than 50% with inspiration. Pericardium/Pleural There is a small loculated pericardial effusion overlying the left ventricle. Prior Study Comparison Changes noted compared to prior study dated: 04/07/2024. progression of mitral regurgitation. Recommendations, Care & Conclusions Consider a LUCI if clinically appropriate. Measurements 2D Linear Measurements IVSd: 0.88 0.6-0.9/0.6-1.0 cm LVIDd: 5.49 3.9-5.3/4.2-5.9 cm LVIDd Index: 3.66 2.4-3.2/2.2-3.1 cm/m2 LVIDs: 4.89 2.0-3.6 cm LVPWd: 0.85 0.7-1.1 cm LA Diam: 5.00 2.7-3.8/3.0-4.0 cm LAIDs Index: 3.33 1.5-2.3 cm/m2 LV Mass: 219.17 67-162/88-224 g LV Mass Index: 146.11 43-95/49-115 g/m2 LVOT Diam: 2.20 3.0+(-)1.3 cm 2D Systolic Function EF 4C: 37.60 >55% EF 2C: 37.10 >55% EF BiP: 37.00 >55% Mitral Valve MV Pk E: 1.08 MV PK A: 0.31 MV Decel Time: 166.00 E/A: 3.50 E'Lateral: 5.22 E'Medial: 3.59 E/E' Med: 30.10 E/E' Lat: 20.70 PHT: 49.00 MVA PHT: 4.49 Decel [place]: 6.49 MR Vol - PW Dopp: 41.44 MR VTI: 1.48 MR ERO: 28.00 MR Alias Dex: 0.35 MR RAD: 0.80 Aortic Valve AoV Pk Dex: 1.36 AoV Mn Dex: 0.97 AoV VTI: 0.25 AoV Pk Grad: 7.00 Aov Mn Grad: 4.00 LUCAS Cont.VTI: 2.14 AI Pk Dex: 3.83 AI [place]: 2.09 LVOT LVOT Pk Dex: 0.66 LVOT Mn Dex: 0.49 LVOT VTI: 0.14 LVOT Pk Grad: 2.00 LVOT Mn Grad: 1.00 LVOT Diam: 2.20 LVOT Area: 3.80 Diastolic Function MV Pk E: 1.08 MV Pk A: 0.31 E/A: 3.50 E'Medial: 3.59 E/E' Med: 30.10 E' Laterial: 5.22 E/E' Lat: 20.70 Right Ventricle TAPSE (mm): 13.80 TVS' Dex: 8.38 Tricuspid Valve TR Pk Dex: 2.49 TR Pk Grad: 25.00 RA Press: 3.00 RVSP: 28.00 Great Vessels Aorta Sinus of Valsalva: 3.54 2.0-3.5 cm Ao Asc: 3.30 2.1-3.4 cm Updated in Other Vendor System with Status of Final Alexander Matias MD electronically signed on 02/03/2025 12:37:45 PM with status of Final
--- OUTSIDE RECORDS SUMMARY | 2025-02-02 15:17 | XMS_ITS | Encounter Summary ---
Author Organization [employer] Address [address] [place] [address] Care Team Providers Care Core Setter Name Role Phone John Avina DO Primary Care Provider [phone] Encounter Details Date Type Department Care Team (Late st Contact Info) Description 08/30/[address] [facility] - Main Lab [address] [facility] [place] [address] Lincoln Crespo MD [address] [place] [address] Essential (primary) hypertension; Atherosclerotic heart disease of [place] coronary artery without angina pectoris; Anemia, unspecified [...] Essential (primary) hypertension Atherosclerotic heart disease of [place] coronary artery without angina pectoris Anemia, unspecified COMPREHENSIVE METABOLIC PANEL Routine 08/31/2024 5:18 AM EDT Essential (primary) hypertension Atherosclerotic heart disease of [place] coronary artery without angina pectoris Anemia, unspecified documented in this encounter Results * (ABNORMAL) Comprehensive metabolic panel (08/31/2024 5:18 AM EDT) Sodium 141 133 - 145 mmol/L LAB CHEMISTRY METHOD 08/31/2024 1:17 PM EDT [facility] Potassium 4.7 3.5 - 5.5 mmol/L LAB CHEMISTRY METHOD 08/31/2024 1:17 PM [facility] LAB Comment:Hemolysis present Chloride 110 96 - 110 mmol/L LAB CHEMISTRY METHOD 08/31/2024 1:17 PM [facility] CO2 15(L) 21 - 32 mmol/L LAB CHEMISTRY METHOD 08/31/2024 1:17 PM [facility] Anion Gap 16(H) 3 - 11 LAB CHEMISTRY METHOD 08/31/2024 1:17 PM [facility] Glucose 67(L) 70 - 100 mg/dL LAB CHEMISTRY METHOD 08/31/2024 1:17 PM [facility] BUN 49(H) 5 - 25 mg/dL LAB CHEMISTRY METHOD 08/31/2024 1:17 PM [facility] Creatinine 1.99(H) 0.50 - 1.10 mg/dL LAB CHEMISTRY METHOD 08/31/2024 1:17 PM [facility] LAB eGFR 25(L) >=60 mL/min/1. 73m2 LAB CHEMISTRY METHOD 08/31/2024 1:17 PM [facility] Comment:Calculation based on the Chronic Kidney Disease Epidemiology Collaboration (CKD-EPI) equation refit without adjustment for race. BUN/Creatinine Ratio 24.6 LAB CHEMISTRY METHOD 08/31/2024 1:17 PM [facility] Calcium 9.1 8.5 - 10.5 mg/dL LAB CHEMISTRY METHOD 08/31/2024 1:17 PM [facility] AST (SGOT) 14 10 - 42 unit/L LAB CHEMISTRY METHOD 08/31/2024 1:17 PM [facility] ALT (SGPT) 18 10 - 60 unit/L LAB CHEMISTRY METHOD 08/31/2024 1:17 PM [facility] Alkaline Phosphatase 70 42 - 121 unit/L LAB CHEMISTRY METHOD 08/31/2024 1:17 PM EDT [facility] Total Protein 6.6 6.0 - 8.0 g/dL LAB CHEMISTRY METHOD 08/31/2024 1:17 PM EDT [facility] Albumin 3.1(L) 3.2 - 5.0 g/dL LAB CHEMISTRY METHOD 08/31/2024 1:17 PM EDT [facility] Total Bilirubin 0.4 0.0 - 1.4 mg/dL LAB CHEMISTRY METHOD 08/31/2024 1:17 PM EDT [facility] Blood Venous blood specimen / Unknown 08/31/2024 5:18 AM EDT 08/31/2024 11:34 AM EDT [facility] LAB - 08/31/2024 1:17 PM EDT Short sample, interpret results with caution us Lincoln Crespo MD LAB BLOOD ORDERABLES Final Resu lt [facility] [address] [place] [address], [place] [phone] * (ABNORMAL) Complete blood count (08/31/2024 5:18 AM EDT) WBC 5.2 4.8 - 10.8 K/mcL LAB HEMETOLOGY METHOD 08/31/2024 1:43 PM EDT [facility] RBC 2.50(L) 3.80 - 4.80 M/mcL LAB HEMETOLOGY METHOD 08/31/2024 1:43 PM EDT [facility] Hemoglobin 8.6(L) 11.5 - 16.0 g/dL LAB HEMETOLOGY METHOD 08/31/2024 1:43 PM EDT [facility] Hematocrit 27.1(L) 35.0 - 47.0 % LAB HEMETOLOGY METHOD 08/31/2024 1:43 PM EDT [facility] MCV 106.7(H) 79.0 - 98.0 FL LAB HEMETOLOGY METHOD 08/31/2024 1:43 PM EDT [facility] MCH 33.9(H) 27.0 - 32.0 pcg LAB HEMETOLOGY METHOD 08/31/2024 1:43 PM EDT [facility] MCHC 31.7(L) 32.0 - 37.0 g/dL LAB HEMETOLOGY METHOD 08/31/2024 1:43 PM EDT [facility] RDW 19.2(H) 11.0 - 15.0 % LAB HEMETOLOGY METHOD 08/31/2024 1:43 PM EDT [facility] Platelets 223 130 - 400 K/mcL LAB HEMETOLOGY METHOD 08/31/2024 1:43 PM EDT [facility] MPV 9.6 7.0 - 11.0 FL LAB HEMETOLOGY METHOD 08/31/2024 1:43 PM EDT [facility] NRBC 0.0 <1.0 % LAB HEMETOLOGY METHOD 08/31/2024 1:43 PM EDT [facility] NRBC Absolute 0.00 <0.10 K/mcL LAB HEMETOLOGY METHOD 08/31/2024 1:43 PM EDT [facility] Blood Venous blood specimen / Unknown 08/31/2024 5:18 AM EDT 08/31/2024 11:31 AM EDT us Lincoln Crespo MD LAB BLOOD ORDERABLES Final Resu lt [facility] [address] [place] [address], documented in this encounter Visit Diagnoses Diagnosis Essential (primary) hypertension Unspecified essential hypertension Atherosclerotic heart disease of [place] coronary artery without angina pectoris Anemia, unspecified documented in this encounter Care Teams Core Setter Relationship Specialty Start Date End Date John Avina DO [address] [place] [phone] PCP - General Internal Medicine 06/10/24 documented as of this encounter
--- OUTSIDE RECORDS SUMMARY | 2025-02-02 15:17 | XMS_ITS | Encounter Summary ---
Author Organization [employer] Address [address] [place] [address] Care Team Providers Care Fisher Trammel Net Name Role Phone John Avina DO Primary Care Provider [phone] Encounter Details Date Type Department Care Team (Late st Contact Info) Description 08/14/2024 Lab Requisition [facility] - Main Lab [address] [facility] [place] [address] Lincoln Crespo MD [address] [place] [address] Essential (primary) hypertension; Atherosclerotic heart disease of jamul coronary artery without angina pectoris; Anemia, unspecified [...] Essential (primary) hypertension Atherosclerotic heart disease of jamul coronary artery without angina pectoris Anemia, unspecified COMPREHENSIVE METABOLIC PANEL Routine 08/17/2024 5:41 AM EDT Essential (primary) hypertension Atherosclerotic heart disease of jamul coronary artery without angina pectoris Anemia, unspecified documented in this encounter Results * (ABNORMAL) Comprehensive metabolic panel (08/17/2024 5:41 AM EDT) Sodium 141 133 - 145 mmol/L LAB CHEMISTRY METHOD 08/17/2024 1:27 PM EDT [facility] Potassium 3.8 3.5 - 5.5 mmol/L LAB CHEMISTRY METHOD 08/17/2024 1:[address] [facility] Chloride 108 96 - 110 mmol/L LAB CHEMISTRY METHOD 08/17/2024 1:[address] [facility] CO2 23 21 - 32 mmol/L LAB CHEMISTRY METHOD 08/17/2024 1:[address] [facility] Anion Gap 10 3 - 11 LAB CHEMISTRY METHOD 08/17/2024 1:[address] [facility] Glucose 69(L) 70 - 100 mg/dL LAB CHEMISTRY METHOD 08/17/2024 1:[address] [facility] BUN 34(H) 5 - 25 mg/dL LAB CHEMISTRY METHOD 08/17/2024 1:[address] [facility] Creatinine 1.53(H) 0.50 - 1.10 mg/dL LAB CHEMISTRY METHOD 08/17/2024 1:[address] [facility] eGFR 35(L) >=60 mL/min/1. 73m2 LAB CHEMISTRY METHOD 08/17/2024 1:[address] [facility] Comment:Calculation based on the Chronic Kidney Disease Epidemiology Collaboration (CKD-EPI) equation refit without adjustment for race. BUN/Creatinine Ratio 22.2 LAB CHEMISTRY METHOD 08/17/2024 1:[address] [facility] Calcium 8.7 8.5 - 10.5 mg/dL LAB CHEMISTRY METHOD 08/17/2024 1:[address] [facility] AST (SGOT) 9(L) 10 - 42 unit/L LAB CHEMISTRY METHOD 08/17/2024 1:[address] [facility] ALT (SGPT) 8(L) 10 - 60 unit/L LAB CHEMISTRY METHOD 08/17/2024 1:[address] [facility] Alkaline Phosphatase 67 42 - 121 unit/L LAB CHEMISTRY METHOD 08/17/2024 1:[address] [facility] Total Protein 5.5(L) 6.0 - 8.0 g/dL LAB CHEMISTRY METHOD 08/17/2024 1:27 PM EDT [facility] Albumin 2.4(L) 3.2 - 5.0 g/dL LAB CHEMISTRY METHOD 08/17/2024 1:27 PM EDT [facility] LAB Total Bilirubin 0.4 0.0 - 1.4 mg/dL LAB CHEMISTRY METHOD 08/17/2024 1:27 PM EDT [facility] LAB Blood Venous blood specimen / Unknown Venipuncture / Unknown 08/17/2024 5:41 AM EDT 08/17/2024 10:15 AM EDT us Lincoln Crespo MD LAB BLOOD ORDERABLES Final Resu lt [facility] LAB [address] [place] [address], * (ABNORMAL) Complete blood count (08/17/2024 5:41 AM EDT) WBC 7.2 4.8 - 10.8 K/mcL LAB HEMETOLOGY METHOD 08/17/2024 11:[address] [facility] RBC 2.90(L) 3.80 - 4.80 M/mcL LAB HEMETOLOGY METHOD 08/17/2024 11:28 AM EDT [facility] Hemoglobin 9.6(L) 11.5 - 16.0 g/dL LAB HEMETOLOGY METHOD 08/17/2024 11:28 AM EDT [facility] Hematocrit 29.9(L) 35.0 - 47.0 % LAB HEMETOLOGY [facility] MCV 103.5(H) 79.0 - 98.0 FL LAB HEMETOLOGY METHOD 08/17/2024 11:28 AM EDT [facility] MCH 33.2(H) 27.0 - 32.0 pcg LAB HEMETOLOGY METHOD 08/17/2024 11:[address] [facility] MCHC 32.1 32.0 - 37.0 g/dL LAB HEMETOLOGY METHOD 08/17/2024 11:[address] [facility] RDW 18.2(H) 11.0 - 15.0 % LAB HEMETOLOGY METHOD 08/17/2024 11:[address] [facility] Platelets 215 130 - 400 K/mcL LAB HEMETOLOGY METHOD 08/17/2024 11:[address] [facility] MPV 9.2 7.0 - 11.0 FL LAB HEMETOLOGY METHOD 08/17/2024 11:[address] [facility] NRBC 0.0 <1.0 % LAB HEMETOLOGY METHOD 08/17/2024 11:[address] [facility] NRBC Absolute 0.00 <0.10 K/mcL LAB HEMETOLOGY METHOD 08/17/2024 11:[address] [facility] Blood Venous blood specimen / Unknown Venipuncture / Unknown 08/17/2024 5:41 AM EDT 08/17/2024 10:15 AM EDT us Lincoln Crespo MD LAB BLOOD ORDERABLES Final Resu lt [facility] LAB [address] [place] [address], documented in this encounter Visit Diagnoses Diagnosis Essential (primary) hypertension Unspecified essential hypertension Atherosclerotic heart disease of jamul coronary artery without angina pectoris Anemia, unspecified documented in this encounter Care Teams Fisher Trammel Net Relationship Specialty Start Date End Date John Avina DO [address] [place] [phone] PCP - General Internal Medicine 06/10/24 documented as of this encounter
--- OUTSIDE RECORDS SUMMARY | 2025-02-02 15:17 | XMS_ITS | Encounter Summary ---
Author Organization [employer] [facility] Address [address] [place] [address] Care Team Providers Care Meter Reader Inspector Name Role Phone John Avina DO Primary Care Provider [phone] Encounter Details Date Type Department Care Team (Late st Contact Info) Description 08/17/2024 Lab Requisition [facility] - Main Lab [address] [facility] [place] [address] Lincoln Crespo MD [address] [place] [address] Other ulcerative colitis with rectal [...] WBC 7.1 4.8 - 10.8 K/[facility] LAB HEMETOLOGY METHOD 08/18/2024 11:09 AM EDT [facility] RBC 2.80(L) 3.80 - 4.80 M/[facility] LAB HEMETOLOGY METHOD 08/18/2024 11:09 AM [facility] LAB Hemoglobin 9.2(L) 11.5 - 16.0 g/dL LAB HEMETOLOGY METHOD 08/18/2024 11:09 AM [facility] LAB Hematocrit 28.6(L) 35.0 - 47.0 % LAB HEMETOLOGY METHOD 08/18/2024 11:09 AM [facility] LAB MCV 103.6(H) 79.0 - 98.0 FL LAB HEMETOLOGY METHOD 08/18/2024 11:09 AM [facility] LAB MCH 33.3(H) 27.0 - 32.0 pcg LAB HEMETOLOGY METHOD 08/18/2024 11:09 AM [facility] LAB MCHC 32.2 32.0 - 37.0 g/dL LAB HEMETOLOGY METHOD 08/18/2024 11:09 AM [facility] LAB RDW 18.5(H) 11.0 - 15.0 % LAB HEMETOLOGY METHOD 08/18/2024 11:09 AM [facility] LAB Platelets 216 130 - 400 K/mcL LAB HEMETOLOGY METHOD 08/18/2024 11:09 AM [facility] LAB MPV 9.2 7.0 - 11.0 FL LAB HEMETOLOGY METHOD 08/18/2024 11:09 AM [facility] LAB NRBC 0.0 <1.0 % LAB HEMETOLOGY METHOD 08/18/2024 11:09 AM [facility] LAB NRBC Absolute 0.00 <0.10 K/mcL LAB HEMETOLOGY METHOD 08/18/2024 11:09 AM [facility] LAB Blood Venous blood specimen / Unknown Venipuncture / Unknown 08/18/2024 4:57 AM EDT 08/18/2024 10:57 AM EDT Lincoln Crespo MD LAB BLOOD ORDERABLES [facility] LAB [address] [place] [address], documented in this encounter Visit Diagnoses Diagnosis Other ulcerative colitis with rectal bleeding (CMS/HCC V24, CMS/HCC V28) Anemia in chronic kidney disease (CODE) documented in this encounter Care Teams Meter Reader Inspector Relationship Specialty Start Date End Date John Avina DO [address] [place] [phone] PCP - General Internal Medicine 06/10/24 documented as of this encounter
--- OUTSIDE RECORDS SUMMARY | 2025-02-02 15:17 | XMS_ITS | Clinical Summary ---
Author Organization [facility] Address [address] [place] [address] Phone Care Team Providers Care Automat Watcher Name Role Phone Aniceto Emery MD Primary Care Provider [phone] Juliann Tse MD Unavailable [phone] Henrry Espino MD Unavailable [phone] Allergies Active Allergy Reactions Criticality Noted Date [...] Smoking Tobacco: Former Cigarettes 1 23 1 549 - 4700 Education Answer Date Recorded Are you interested [...] EST) SODIUM 138 135 - 145 mmol/L [facility] LIC# [id number] POTASSIUM 3.8 3.5 - 5.0 mmol/L [facility] LIC# [id number] CHLORIDE 104 98 - 108 mmol/L [facility] LIC# [id number] CO2 27 23 - 32 mmol/L [facility] LIC# [id number] BUN 28(H) 9 - 25 mg/dL [facility] LIC# [id number] CREATININE 1.26 0.7 - 1.3 mg/dL [facility] LIC# [id number] GLUCOSE 143(H) 70 - 100 mg/dL [facility] LIC# [id number] ALBUMIN 4.3 3.7 - 5.4 g/dL [facility] LIC# [id number] TOTAL PROTEIN 7.4 6.0 - 8.0 g/dL [facility] LIC# [id number] CALCIUM 9.8 8.8 - 10.5 mg/dL [facility] LIC# [id number] ALKALINE PHOSPHATASE 82 36 - 118 U/L [facility] LIC# [id number] TOTAL BILIRUBIN 0.5 0.2 - 1.2 mg/dL [facility] LIC# [id number] AST 15 9 - 30 U/L [facility] LIC# [id number] ALT 16 7 - 52 U/L [facility] LIC# [id number] GLOBULIN 3.1 2.3 - 4.2 g/dL [facility] LIC# [id number] EGFR 42 mL/min/1.7 3m2 [facility] LIC# [id number] Comment:Abnormal if <60 mL/m in/1.73m2. If patient is -Nauruan, multiply the result by 1.21. ANION GAP 7 5 - 17 mmol/L [facility] LIC# [id number] 06/04/2016 4:11 PM EST 06/04/2016 4:19 PM EST Henrry Espino MD LAB BLOOD ORDERABLES Final Result [facility] LIC# [id number] [address] [place] [address] from Last 3 Months or Most Recently Relevant to Health Maintenance Insurance PPO PPO [place] [address] [address] PPO PPO PPO PPO PPO [facility] PPO Advance Directives For more information, please contact: [phone] (9AM - 5PM [facility], Saturday-Saturday) Documents on File Type Date Recorded Patient Renal Nurse Expl anation Healthcare Proxy 06/04/2016 3:21 PM HCP Care Teams Automat Watcher Relationship Specialty Start Date End Date Aniceto Emery MD PCP - General Internal Medicine 04/25/16 Henrry Espino MD [address] [place] [address] Multiple Myeloma [facility] [place] [address] [email or web address] PCP - Hematology/Oncology Medical Oncology 06/06/16 Juliann Tse MD [address] [place] [phone] [email or web address] Referring Physician Hematology and Oncology 04/25/16 Additional Source Comments The information contained in this document represents components of the legal health record. It is not the complete legal health record.[facility]
--- OUTSIDE RECORDS SUMMARY | 2025-02-02 15:17 | XMS_ITS | Encounter Summary ---
Author Organization [employer] Address [address] [place] [address] Care Team Providers Care Sanding Supervisor Name Role Phone John Avina DO Primary Care Provider [phone] Encounter Details Date Type Department Care Team (Late st Contact Info) Description 08/19/2024 Lab Requisition [facility] - Main Lab [address] [facility] [place] [address] Lincoln Crespo MD [address] [place] [address] Essential (primary) hypertension; Atherosclerotic heart disease of [place] coronary artery without angina pectoris; Anemia, unspecified; [...] Essential (primary) hypertension Atherosclerotic heart disease of hyd[place] coronary artery without angina pectoris Anemia, unspecified Chronic kidney disease, unspecified BASIC METABOLIC PANEL Routine 08/20/2024 6:56 AM EDT Essential (primary) hypertension Atherosclerotic heart disease of [place] coronary artery without angina pectoris Anemia, unspecified Chronic kidney disease, unspecified documented in this encounter Results * (ABNORMAL) Basic metabolic panel (08/20/2024 6:56 AM EDT) Sodium 140 133 - 145 mmol/L LAB CHEMISTRY METHOD 08/20/2024 10:17 AM [facility] LAB Potassium 4.1 3.5 - 5.5 mmol/L LAB CHEMISTRY METHOD 08/20/2024 10:17 AM [facility] LAB Chloride 107 96 - 110 mmol/L LAB CHEMISTRY METHOD 08/20/2024 10:17 AM [facility] LAB CO2 25 21 - 32 mmol/L LAB CHEMISTRY METHOD 08/20/2024 10:17 AM [facility] LAB Anion Gap 8 3 - 11 LAB CHEMISTRY METHOD 08/20/2024 10:17 AM [facility] LAB Glucose 100 70 - 100 mg/dL LAB CHEMISTRY METHOD 08/20/2024 10:17 AM [facility] LAB BUN 31(H) 5 - 25 mg/dL LAB CHEMISTRY METHOD 08/20/2024 10:17 AM [facility] LAB Creatinine 1.63(H) 0.50 - 1.10 mg/dL LAB CHEMISTRY METHOD 08/20/2024 10:17 AM [facility] LAB eGFR 32(L) >=60 mL/min/1. 73m2 LAB CHEMISTRY METHOD 08/20/2024 10:17 AM [facility] LAB Comment:Calculation based on the Chronic Kidney Disease Epidemiology Collaboration (CKD-EPI) equation refit without adjustment for race. BUN/Creatinine Ratio 19.0 LAB CHEMISTRY METHOD 08/20/2024 10:17 AM [facility] LAB Calcium 9.2 8.5 - 10.5 mg/dL LAB CHEMISTRY METHOD 08/20/2024 10:17 AM [facility] LAB Blood Venous blood specimen / Unknown Venipuncture / Unknown 08/20/2024 6:56 AM EDT 08/20/2024 9:28 AM EDT us Lincoln Crespo MD LAB BLOOD ORDERABLES Final Resu lt [facility] LAB [address] [place] [address], * (ABNORMAL) Complete blood count (08/20/2024 6:56 AM EDT) [facility] WBC 8.6 4.8 - 10.8 K/mcL LAB HEMETOLOGY METHOD 08/20/2024 9:58 AM [facility] LAB RBC 3.30(L) 3.80 - 4.80 M/mcL LAB HEMETOLOGY METHOD [facility] Hemoglobin 10.9(L) 11.5 - 16.0 g/dL LAB HEMETOLOGY METHOD 08/20/2024 9:58 AM [facility] LAB Hematocrit 34.1(L) 35.0 - 47.0 % LAB HEMETOLOGY METHOD 08/20/2024 9:58 AM [facility] LAB MCV 102.1(H) 79.0 - 98.0 FL LAB HEMETOLOGY METHOD 08/20/2024 9:58 AM [facility] LAB MCH 32.6(H) 27.0 - 32.0 pcg LAB HEMETOLOGY METHOD 08/20/2024 9:58 AM [facility] LAB MCHC 32.0 32.0 - 37.0 g/dL LAB HEMETOLOGY METHOD 08/20/2024 9:58 AM [facility] LAB RDW 18.5(H) 11.0 - 15.0 % LAB HEMETOLOGY METHOD 08/20/2024 9:58 AM [facility] LAB Platelets 264 130 - 400 K/mcL LAB HEMETOLOGY METHOD 08/20/2024 9:58 AM [facility] LAB MPV 9.0 7.0 - 11.0 FL LAB HEMETOLOGY METHOD 08/20/2024 9:58 AM [facility] LAB NRBC 0.0 <1.0 % LAB HEMETOLOGY METHOD 08/20/2024 9:58 AM EDT [facility] LAB NRBC Absolute 0.00 <0.10 K/mcL LAB HEMETOLOGY METHOD 08/20/2024 9:58 AM EDT [facility] LAB Blood Venous blood specimen / Unknown Venipuncture / Unknown 08/20/2024 6:56 AM EDT 08/20/2024 9:29 AM EDT us Lincoln Crespo MD LAB BLOOD ORDERABLES Final Resu lt [facility] LAB [address] [place] [address], documented in this encounter Visit Diagnoses Diagnosis Essential (primary) hypertension Unspecified essential hypertension Atherosclerotic heart disease of hydab[place] coronary artery without angina pectoris Anemia, unspecified Chronic kidney disease, unspecified documented in this encounter Care Teams Sanding Supervisor Relationship Specialty Start Date End Date John Avina DO [address] [place] [phone] PCP - General Internal Medicine 06/10/24 documented as of this encounter
--- OUTSIDE RECORDS SUMMARY | 2025-02-02 15:17 | XMS_ITS | Encounter Summary ---
Author Organization [facility] Address [address] [place] [address] Care Team Providers Care Marker Maker Name Role Phone John Avina DO Primary Care Provider [phone] Encounter Details Date Type Department Care Team (Late st Contact Info) Description 08/15/2024 Lab Requisition [facility] - Main Lab 299 [facility] [place] [address] Lincoln Crespo MD [address] [place] [address] Other ulcerative colitis with rectal [...] AM EDT) WBC 6.7 4.8 - 10.8 K/[facility] LAB HEMETOLOGY METHOD 08/15/2024 11:29 AM EDT [facility] LAB RBC 3.10(L) 3.80 - 4.80 M/[facility] LAB HEMETOLOGY METHOD 08/15/2024 11:29 AM [facility] LAB Hemoglobin 10.4(L) 11.5 - 16.0 g/dL LAB HEMETOLOGY METHOD 08/15/2024 11:29 AM [facility] LAB Hematocrit 31.4(L) 35.0 - 47.0 % LAB HEMETOLOGY METHOD 08/15/2024 11:29 AM [facility] LAB MCV 100.6(H) 79.0 - 98.0 FL LAB HEMETOLOGY METHOD 08/15/2024 11:29 AM [facility] LAB MCH 33.3(H) 27.0 - 32.0 pcg LAB HEMETOLOGY METHOD 08/15/2024 11:29 AM [facility] LAB MCHC 33.1 32.0 - 37.0 g/dL LAB HEMETOLOGY METHOD 08/15/2024 11:29 AM [facility] LAB RDW 18.6(H) 11.0 - 15.0 % LAB HEMETOLOGY METHOD 08/15/2024 11:29 AM [facility] LAB Platelets 228 130 - 400 K/mcL LAB HEMETOLOGY METHOD 08/15/2024 11:29 AM [facility] LAB MPV 9.4 7.0 - 11.0 FL LAB HEMETOLOGY METHOD 08/15/2024 11:29 AM [facility] LAB NRBC 0.0 <1.0 % LAB HEMETOLOGY METHOD 08/15/2024 11:29 AM [facility] LAB NRBC Absolute 0.00 <0.10 K/mcL LAB HEMETOLOGY METHOD 08/15/2024 11:29 AM [facility] LAB Blood Venous blood specimen / Unknown Venipuncture / Unknown 08/15/2024 9:21 AM EDT 08/15/2024 10:30 AM EDT Lincoln Crespo MD LAB BLOOD ORDERABLES [facility] LAB [address] [place] [address], documented in this encounter Visit Diagnoses Diagnosis Other ulcerative colitis with rectal bleeding (CMS/HCC V24, CMS/HCC V28) Anemia in chronic kidney disease (CODE) documented in this encounter Care Teams Marker Maker Relationship Specialty Start Date End Date John Avina DO [address] [place] [phone] PCP - General Internal Medicine 06/10/24 documented as of this encounter
--- OUTSIDE RECORDS SUMMARY | 2025-02-02 15:17 | XMS_ITS | Encounter Summary ---
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; Anemia, unspecified; [...] Essential (primary) hypertension 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 Anemia, unspecified Chronic kidney disease, unspecified BASIC METABOLIC PANEL Routine 09/03/2024 7:35 AM EDT Essential (primary) hypertension 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 Anemia, unspecified Chronic kidney disease, unspecified documented in this encounter Results * (ABNORMAL) Basic metabolic panel (09/03/2024 7:35 AM EDT) Sodium 142 133 - 145 mmol/L LAB CHEMISTRY METHOD 09/03/2024 9:20 AM [facility] LAB Potassium 4.0 3.5 - 5.5 mmol/L LAB CHEMISTRY METHOD 09/03/2024 9:20 AM [facility] LAB Chloride 112(H) 96 - 110 mmol/L LAB CHEMISTRY METHOD 09/03/2024 9:20 AM [facility] CO2 22 21 - 32 mmol/L LAB CHEMISTRY METHOD 09/03/2024 9:20 AM [facility] LAB Anion Gap 8 3 - 11 LAB CHEMISTRY METHOD 09/03/2024 9:20 AM [facility] LAB Glucose 90 70 - 100 mg/dL LAB CHEMISTRY METHOD 09/03/2024 9:20 AM [facility] BUN 48(H) 5 - 25 mg/dL LAB CHEMISTRY METHOD 09/03/2024 9:20 AM [facility] Creatinine 1.72(H) 0.50 - 1.10 mg/dL LAB CHEMISTRY METHOD 09/03/2024 9:20 AM [facility] LAB eGFR 30(L) >=60 mL/min/1. 73m2 LAB CHEMISTRY METHOD 09/03/2024 9:20 AM [facility] LAB Comment:Calculation based on the Chronic Kidney Disease Epidemiology Collaboration (CKD-EPI) equation refit without adjustment for race. BUN/Creatinine Ratio 27.9 LAB CHEMISTRY METHOD 09/03/2024 9:20 AM [facility] Calcium 9.3 8.5 - 10.5 mg/dL LAB CHEMISTRY METHOD 09/03/2024 9:20 AM [facility] LAB Blood Venous blood specimen / Unknown Venipuncture / Unknown 09/03/2024 7:35 AM EDT 09/03/2024 8:28 AM EDT us Lincoln Crespo MD LAB BLOOD ORDERABLES Final Resu lt [facility] LAB [address] [place] [address], * (ABNORMAL) Complete blood count (09/03/2024 7:35 AM EDT) [facility] Signature WBC 4.5(L) 4.8 - 10.8 K/mcL LAB HEMETOLOGY METHOD 09/03/2024 8:46 AM EDT [facility] RBC 2.60(L) 3.80 - 4.80 M/mcL LAB HEMETOLOGY METHOD 09/03/2024 8:46 AM EDT [facility] Hemoglobin 8.8(L) 11.5 - 16.0 g/dL LAB HEMETOLOGY METHOD 09/03/2024 8:46 AM [facility] Hematocrit 27.0(L) 35.0 - 47.0 % LAB HEMETOLOGY METHOD 09/03/2024 8:[facility] MCV 105.1(H) 79.0 - 98.0 FL LAB HEMETOLOGY METHOD 09/03/2024 8:46 [facility] MCH 34.2(H) 27.0 - 32.0 pcg LAB HEMETOLOGY METHOD 09/03/2024 8:46 AM [facility] LAB MCHC 32.6 32.0 - 37.0 g/dL LAB HEMETOLOGY METHOD 09/03/2024 8:46 AM [facility] RDW 19.1(H) 11.0 - 15.0 % LAB HEMETOLOGY METHOD 09/03/2024 8:46 AM EDT [facility] Platelets 200 130 - 400 K/mcL LAB HEMETOLOGY METHOD 09/03/2024 8:46 AM EDT [facility] MPV 9.2 7.0 - 11.0 FL LAB HEMETOLOGY METHOD 09/03/2024 8:46 AM EDT [facility] NRBC 0.0 <1.0 % LAB HEMETOLOGY METHOD 09/03/2024 8:46 AM EDT [facility] NRBC Absolute 0.00 <0.10 K/mcL LAB HEMETOLOGY METHOD 09/03/2024 8:46 AM EDT [facility] Blood Venous blood specimen / Unknown Venipuncture / Unknown 09/03/2024 7:35 AM EDT 09/03/2024 8:28 AM EDT us Lincoln Crespo MD LAB BLOOD ORDERABLES Final Resu lt [facility] ([facility] LAB [address] [place] [address], documented in this encounter Visit Diagnoses Diagnosis Essential (primary) hypertension Unspecified essential hypertension 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 Anemia, unspecified Chronic kidney disease, unspecified documented in this encounter Care Teams Commercial Finance Manager Relationship Specialty Start Date End Date John Avina DO [address] [place] [phone] PCP - General Internal Medicine 06/10/24 documented as of this encounter
--- OUTSIDE RECORDS SUMMARY | 2025-02-02 15:17 | XMS_ITS | Clinical Summary ---
Author Organization [address] Address [address] [place] [address] Phone Care Team Providers Care Vehicle Trimmer Name Role Phone FabriceJohn solares Primary Care Provider [phone] Social History Tobacco Use Types Packs/Day Years [...] Essential (primary) hypertension Atherosclerotic heart disease of [place] coronary artery without angina pectoris Anemia, unspecified Chronic kidney disease, unspecified from Last 3 Months or Most Recently Relevant to Health Maintenance Results * (ABNORMAL) Basic metabolic panel (09/17/2024 8:40 AM EDT) Sodium 141 133 - 145 mmol/L LAB CHEMISTRY METHOD 09/17/2024 11:11 AM [facility] Potassium 4.0 3.5 - 5.5 mmol/L LAB CHEMISTRY METHOD 09/17/2024 11:11 AM [facility] Chloride 109 96 - 110 mmol/L LAB CHEMISTRY METHOD 09/17/2024 11:11 AM [facility] CO2 24 21 - 32 mmol/L LAB CHEMISTRY METHOD 09/17/2024 11:11 AM [facility] Anion Gap 8 3 - 11 LAB CHEMISTRY METHOD 09/17/2024 11:11 AM [facility] Glucose 103(H) 70 - 100 mg/dL LAB CHEMISTRY METHOD 09/17/2024 11:11 AM EDT [facility] BUN 49(H) 5 - 25 mg/dL LAB CHEMISTRY METHOD 09/17/2024 11:11 AM EDT [facility] Creatinine 1.74(H) 0.50 - 1.10 mg/dL LAB CHEMISTRY METHOD 09/17/2024 11:11 AM EDT [facility] eGFR 30(L) >=60 mL/min/1. 73m2 LAB CHEMISTRY METHOD 09/17/2024 11:11 AM EDT [facility] Comment:Calculation based on the Chronic Kidney Disease Epidemiology Collaboration (CKD-EPI) equation refit without adjustment for race. BUN/Creatinine Ratio 28.2 LAB CHEMISTRY METHOD 09/17/2024 11:11 AM EDT [facility] Calcium 9.3 8.5 - 10.5 mg/dL LAB CHEMISTRY METHOD 09/17/2024 11:11 AM EDT [facility] Blood Venous blood specimen / Unknown Venipuncture / Unknown 09/17/2024 8:40 AM EDT 09/17/2024 10:05 AM EDT [place] Crespo MD LAB BLOOD ORDERABLES Final Resu lt [facility] [address] [place] [address], from Last 3 Months or Most Recently Relevant to Health Maintenance Insurance MEDICARE [facility] MEDICARE Care Teams Vehicle Trimmer Relationship Specialty Start Date End Date John Avina DO [address] [place] [phone] PCP - General Internal Medicine 06/10/24
--- OUTSIDE RECORDS SUMMARY | 2025-02-02 15:17 | XMS_ITS | Encounter Summary ---
Author Organization [facility] Address [address] [place] [address] Care Team Providers Care Sprinkler Worker Name Role Phone John Avina DO Primary Care Provider [phone] Encounter Details Date Type Department Care Team (Late st Contact Info) Description 08/16/2024 Lab Requisition [facility] - Main Lab [address] [facility] [place] [address] [place] Crespo MD [address] [place] [address] Other ulcerative colitis with rectal [...] AM EDT) WBC 7.2 4.8 - 10.8 K/[facility] LAB HEMETOLOGY METHOD 08/16/2024 10:41 AM EDT [facility] RBC 2.90(L) 3.80 - 4.80 M/[facility] LAB HEMETOLOGY METHOD 08/16/2024 10:41 AM [facility] Hemoglobin 9.7(L) 11.5 - 16.0 g/dL LAB HEMETOLOGY METHOD 08/16/2024 10:41 AM [facility] Hematocrit 29.9(L) 35.0 - 47.0 % LAB HEMETOLOGY METHOD 08/16/2024 10:41 AM [facility] MCV 101.7(H) 79.0 - 98.0 FL LAB HEMETOLOGY METHOD 08/16/2024 10:41 AM [facility] MCH 33.0(H) 27.0 - 32.0 pcg LAB HEMETOLOGY METHOD 08/16/2024 10:41 AM [facility] MCHC 32.4 32.0 - 37.0 g/dL LAB HEMETOLOGY METHOD 08/16/2024 10:41 AM [facility] RDW 18.1(H) 11.0 - 15.0 % LAB HEMETOLOGY METHOD 08/16/2024 10:41 AM [facility] Platelets 246 130 - 400 K/mcL LAB HEMETOLOGY METHOD 08/16/2024 10:41 AM [facility] MPV 9.2 7.0 - 11.0 FL LAB HEMETOLOGY METHOD 08/16/2024 10:41 AM [facility] NRBC 0.0 <1.0 % LAB HEMETOLOGY METHOD 08/16/2024 10:41 AM [facility] NRBC Absolute 0.00 <0.10 K/mcL LAB HEMETOLOGY METHOD 08/16/2024 10:41 AM [facility] Blood Venous blood specimen / Unknown Venipuncture / Unknown 08/16/2024 8:48 AM EDT 08/16/2024 10:02 AM EDT [place] Crespo MD LAB BLOOD ORDERABLES Final [facility]u [facility] [address] [place] [address], documented in this encounter Visit Diagnoses Diagnosis Other ulcerative colitis with rectal bleeding (CMS/HCC V24, CMS/HCC V28) Anemia in chronic kidney disease (CODE) documented in this encounter Care Teams Sprinkler Worker Relationship Specialty Start Date End Date John Avina DO [address] [place] [phone] PCP - General Internal Medicine 06/10/24 documented as of this encounter
--- OUTSIDE RECORDS SUMMARY | 2025-02-02 15:17 | XMS_ITS | Encounter Summary ---
Author Organization [facility] Address [address] [place] [address] Care Team Providers Care Operator Vacuum Name Role Phone John Avina DO Primary Care Provider [phone] Encounter Details Date Type Department Care Team (Late st Contact Info) Description 09/16/[address] [facility] - Main Lab [address] [facility] [place] [address] [place] Crespo MD [address] [place] [address] Essential (primary) hypertension; Atherosclerotic heart disease of [place] coronary artery without angina pectoris; Anemia, unspecified; [...] Essential (primary) hypertension Atherosclerotic heart disease of [place] coronary artery without angina pectoris Anemia, unspecified Chronic kidney disease, unspecified BASIC METABOLIC PANEL Routine 09/17/2024 8:40 AM EDT Essential (primary) hypertension Atherosclerotic heart disease of [place] coronary artery without angina pectoris Anemia, unspecified [...] mg/dL LAB CHEMISTRY METHOD 09/17/2024 11:11 AM [facility] BUN 49(H) 5 - 25 mg/dL LAB CHEMISTRY METHOD 09/17/2024 11:11 AM [facility] Creatinine 1.74(H) 0.50 - 1.10 mg/dL LAB CHEMISTRY METHOD 09/17/2024 11:11 AM [facility] eGFR 30(L) >=60 mL/min/1. 73m2 LAB CHEMISTRY METHOD 09/17/2024 11:11 AM [facility] Comment:Calculation based on the Chronic Kidney Disease Epidemiology Collaboration (CKD-EPI) equation refit without adjustment for race. BUN/Creatinine Ratio 28.2 LAB CHEMISTRY METHOD 09/17/2024 11:11 AM [facility] Calcium 9.3 8.5 - 10.5 mg/dL LAB CHEMISTRY METHOD 09/17/2024 11:11 AM [facility] Blood Venous blood specimen / Unknown Venipuncture / Unknown 09/17/2024 8:40 AM EDT 09/17/2024 10:05 AM EDT us [place] Crespo MD LAB BLOOD ORDERABLES Final Resu lt [facility] [address] [place] [address], * (ABNORMAL) Complete blood count (09/17/2024 8:40 AM EDT) [facility] WBC 6.5 4.8 - 10.8 K/mcL LAB HEMETOLOGY METHOD 09/17/2024 10:30 AM EDT [facility] RBC 2.70(L) 3.80 - 4.80 M/mcL LAB HEMETOLOGY METHOD 09/17/2024 10:30 AM EDT [facility] Hemoglobin 9.4(L) 11.5 - 16.0 g/dL LAB HEMETOLOGY METHOD 09/17/2024 10:30 AM [facility] Hematocrit 28.1(L) 35.0 - 47.0 % LAB HEMETOLOGY METHOD 09/17/2024 10:30 AM [facility] MCV 106.0(H) 79.0 - 98.0 FL LAB HEMETOLOGY METHOD 09/17[facility]24 [facility] MCH 35.5(H) 27.0 - 32.0 pcg LAB HEMETOLOGY METHOD 09/17/2024 10:30 AM [facility] MCHC 33.5 32.0 - 37.0 g/dL LAB HEMETOLOGY METHOD 09/17/2024 10:[facility] RDW 18.7(H) 11.0 - 15.0 % LAB HEMETOLOGY METHOD 09/17/2024 10:[facility] Platelets 183 130 - 400 K/mcL LAB HEMETOLOGY METHOD 09/17/2024 10:30 AM [facility] MPV 9.4 7.0 - [...] Resu lt [facility] [address] [place] [address], documented in this encounter Visit Diagnoses Diagnosis Essential (primary) hypertension Unspecified essential hypertension Atherosclerotic heart disease of [place] coronary artery without angina pectoris Anemia, unspecified Chronic kidney disease, unspecified documented in this encounter Care Teams Operator Vacuum Relationship Specialty Start Date End Date John Avina DO [address] [place] [phone] PCP - General Internal Medicine 06/10/24 documented as of this encounter
--- OUTSIDE RECORDS SUMMARY | 2025-02-02 15:17 | XMS_ITS | Encounter Summary ---
Author Organization [facility] Address [address] [place] [address] Care Team Providers Care Golf Professional Name Role Phone John Avina DO Primary Care Provider [phone] Encounter Details Date Type Department Care Team (Late st Contact Info) Description 09/14/2024 Lab Requisition [facility] - Main Lab [address] [facility] [place] [address] [place] Crespo MD [address] [place] [address] Essential (primary) hypertension; Atherosclerotic heart disease of [place] coronary artery without angina pectoris; Anemia, unspecified [...] Essential (primary) hypertension Atherosclerotic heart disease of [place] coronary artery without angina pectoris Anemia, unspecified COMPREHENSIVE METABOLIC PANEL Routine 09/15/2024 7:05 AM EDT Essential (primary) hypertension Atherosclerotic heart disease of [place] coronary artery without angina pectoris Anemia, unspecified documented in this encounter Results * (ABNORMAL) Complete blood count (09/15/2024 7:07 AM EDT) WBC 5.1 4.8 - 10.8 K/mcL LAB HEMETOLOGY METHOD 09/15/2024 12:07 PM EDT [facility] RBC 2.30(L) 3.80 - 4.80 M/mcL LAB HEMETOLOGY METHOD 09/15/2024 12:07 PM [facility] Hemoglobin 8.0(L) 11.5 - 16.0 g/dL LAB HEMETOLOGY METHOD 09/15/2024 12:07 PM [facility] Hematocrit 24.4(L) 35.0 - 47.0 % LAB HEMETOLOGY METHOD 09/15/2024 12:07 PM [facility] MCV 107.0(H) 79.0 - 98.0 FL LAB HEMETOLOGY METHOD 09/15/2024 12:07 PM [facility] MCH 35.1(H) 27.0 - 32.0 pcg LAB HEMETOLOGY METHOD 09/15/2024 12:07 PM [facility] MCHC 32.8 32.0 - 37.0 g/dL LAB HEMETOLOGY METHOD 09/15/2024 12:07 PM [facility] RDW 19.0(H) 11.0 - 15.0 % LAB HEMETOLOGY METHOD 09/15/2024 12:07 PM [facility] Platelets 141 130 - 400 K/mcL LAB HEMETOLOGY METHOD 09/15/2024 12:07 PM [facility] MPV 9.2 7.0 - 11.0 FL LAB HEMETOLOGY METHOD 09/15/2024 12:07 PM [facility] NRBC 0.0 <1.0 % LAB HEMETOLOGY METHOD 09/15/2024 12:07 PM [facility] NRBC Absolute 0.00 <0.10 K/mcL LAB HEMETOLOGY METHOD 09/15/2024 12:07 PM [facility] Blood Venous blood specimen / Unknown Venipuncture / Unknown 09/15/2024 7:07 AM EDT 09/15/2024 10:49 AM EDT us [place] Crespo MD LAB BLOOD ORDERABLES Final Resu lt [facility] [address] [place] [address], [place] [phone] * (ABNORMAL) Comprehensive metabolic panel (09/15/2024 7:05 AM EDT) Sodium 143 133 - 145 mmol/L LAB CHEMISTRY METHOD 09/15/2024 12:43 PM [facility] Potassium 3.6 3.5 - 5.5 mmol/L LAB CHEMISTRY METHOD 09/15/2024 12:43 PM [facility] Chloride 110 96 - 110 mmol/L LAB CHEMISTRY METHOD 09/15/2024 12:43 PM [facility] CO2 22 21 - 32 mmol/L LAB CHEMISTRY METHOD 09/15/2024 12:43 PM [facility] Anion Gap 11 3 - 11 LAB CHEMISTRY METHOD 09/15/2024 12:43 PM [facility] Glucose 90 70 - 100 mg/dL LAB CHEMISTRY METHOD 09/15/2024 12:43 PM [facility] BUN 49(H) 5 - 25 mg/dL LAB CHEMISTRY METHOD 09/15/2024 12:43 PM [facility] Creatinine 1.80(H) 0.50 - 1.10 mg/dL LAB CHEMISTRY METHOD 09/15/2024 12:43 PM [facility] eGFR 29(L) >=60 mL/min/1. 73m2 LAB CHEMISTRY METHOD 09/15/2024 12:43 PM [facility] Comment:Calculation based on the Chronic Kidney Disease Epidemiology Collaboration (CKD-EPI) equation refit without adjustment for race. BUN/Creatinine Ratio 27.2 LAB CHEMISTRY METHOD 09/15/2024 12:43 PM EDT [facility] Calcium 8.9 8.5 - 10.5 mg/dL LAB CHEMISTRY METHOD 09/15/2024 12:43 PM T [facility] AST (SGOT) 6(L) 10 - 42 unit/L LAB CHEMISTRY METHOD 09/15/2024 12:43 PM [facility] ALT (SGPT) 15 10 - 60 unit/L LAB CHEMISTRY METHOD 09/15/2024 12:43 PM T [facility] Alkaline Phosphatase 56 42 - 121 unit/L LAB CHEMISTRY METHOD 09/15/2024 12:43 PM [facility] Total Protein 6.0 6.0 - 8.0 g/dL LAB CHEMISTRY METHOD 09/15/2024 12:43 PM [facility] Albumin 3.0(L) 3.2 - 5.0 g/dL LAB CHEMISTRY METHOD 09/15/2024 12:43 PM [facility] Total Bilirubin 0.5 0.0 - 1.4 mg/dL LAB CHEMISTRY METHOD 09/15/2024 12:43 PM [facility] Blood Venous blood specimen / Unknown Venipuncture / Unknown 09/15/2024 7:05 AM EDT 09/15/2024 10:50 AM EDT us [place] Crespo MD LAB BLOOD ORDERABLES Final Resu lt [facility] [address] [place] [address], documented in this encounter Visit Diagnoses Diagnosis Essential (primary) hypertension Unspecified essential hypertension Atherosclerotic heart disease of [place] coronary artery without angina pectoris Anemia, unspecified documented in this encounter Care Teams Golf Professional Relationship Specialty Start Date End Date John Avina DO [address] [place] [phone] PCP - General Internal Medicine 06/10/24 documented as of this encounter
--- OUTSIDE RECORDS SUMMARY | 2025-02-02 15:17 | XMS_ITS | Clinical Summary ---
Author Organization [facility] Address [address] [place] [address] Phone Care Team Providers Care Solar Business Developer Name Role Phone FabriceJohn solares Primary [...] Visit [facility] [address] [place] [address] Mejia Soler [...] Visit [facility] [address] [place] [address] Mejia Soler MD [address] [facility] [address] [place] [address] Health Maintenance Due Date Last [...] age to complete this topic Insurance Medicare [facility] Medicare [facility] Care Teams Solar Business Developer Relationship Specialty Start Date End Date John Avina DO [address] [place] [address] PCP - General Internal Medicine 10/23/23
--- OUTSIDE RECORDS SUMMARY | 2025-02-02 15:17 | XMS_ITS | Encounter Summary ---
Author Organization [employer] Address [address] [place] [phone] Care Team Providers Care Flight Surgeon Name Role Phone John Avina DO Primary Care Provider [phone] Encounter Details Date Type Department Care Team (Late st Contact Info) Description 08/12/2024 Lab Requisition [facility] - Main Lab [address] [facility] [place] [address] [place] Crespo MD [address] [place] [address] Essential (primary) hypertension; Atherosclerotic heart disease of [place] coronary artery without angina pectoris; Anemia, unspecified; [...] Essential (primary) hypertension Atherosclerotic heart disease of [place] coronary artery without angina pectoris Anemia, unspecified Chronic kidney disease, unspecified Hypothyroidism, unspecified Hyperlipidemia, unspecified COMPREHENSIVE METABOLIC PANEL Routine 08/12/2024 4:49 AM EDT Essential (primary) hypertension Atherosclerotic heart disease of [place] coronary artery without angina pectoris Anemia, unspecified Chronic kidney disease, unspecified Hypothyroidism, unspecified Hyperlipidemia, unspecified documented in this encounter Results * (ABNORMAL) Comprehensive metabolic panel (08/12/2024 4:49 AM EDT) Sodium 140 133 - 145 mmol/L LAB CHEMISTRY METHOD 08/12/2024 11:43 AM [facility] Potassium 4.4 3.5 - 5.5 mmol/L LAB CHEMISTRY METHOD 08/12/2024 11:43 AM [facility] Chloride 104 96 - 110 mmol/L LAB CHEMISTRY METHOD 08/12/2024 11:43 AM [facility] CO2 30 21 - 32 mmol/L LAB CHEMISTRY METHOD 08/12/2024 11:43 AM [facility] Anion Gap 6 3 - 11 LAB CHEMISTRY METHOD 08/12/2024 11:43 AM [facility] Glucose 81 70 - 100 mg/dL LAB CHEMISTRY METHOD 08/12/2024 11:43 AM [facility] BUN 35(H) 5 - 25 mg/dL LAB CHEMISTRY METHOD 08/12/2024 11:43 AM [facility] Creatinine 1.81(H) 0.50 - 1.10 mg/dL LAB CHEMISTRY METHOD 08/12/2024 11:43 AM [facility] eGFR 29(L) >=60 mL/min/1. 73m2 LAB CHEMISTRY METHOD 08/12/2024 11:43 AM [facility] Comment:Calculation based on the Chronic Kidney Disease Epidemiology Collaboration (CKD-EPI) equation refit without adjustment for race. BUN/Creatinine Ratio 19.3 LAB CHEMISTRY METHOD 08/12/2024 11:43 AM [facility] Calcium 8.3(L) 8.5 - 10.5 mg/dL LAB CHEMISTRY METHOD 08/12/2024 11:43 AM [facility] AST (SGOT) 7(L) 10 - 42 unit/L LAB CHEMISTRY METHOD 08/12/2024 11:43 AM [facility] ALT (SGPT) 7(L) 10 - 60 unit/L LAB CHEMISTRY METHOD 08/12/2024 11:43 AM EDT [facility] Alkaline Phosphatase 65 42 - 121 unit/L LAB CHEMISTRY METHOD 08/12/2024 11:43 AM T [facility] Total Protein 5.5(L) 6.0 - 8.0 g/dL LAB CHEMISTRY METHOD 08/12/2024 11:43 AM [facility] Albumin 2.3(L) 3.2 - 5.0 g/dL LAB CHEMISTRY METHOD 08/12/2024 11:43 AM T [facility] Total Bilirubin 0.5 0.0 - 1.4 mg/dL LAB CHEMISTRY METHOD 08/12/2024 11:43 AM [facility] Blood Venous blood specimen / Unknown Venipuncture / Unknown 08/12/2024 4:49 AM EDT 08/12/2024 10:25 AM EDT [place] Crespo MD LAB BLOOD ORDERABLES Final Resu lt [facility] [address] [place] [address], * (ABNORMAL) Complete blood count (08/12/2024 4:49 AM EDT) WBC 6.8 4.8 - 10.8 K/mcL LAB HEMETOLOGY METHOD 08/12/2024 11:01 AM [facility] RBC 2.20(L) 3.80 - 4.80 M/mcL LAB HEMETOLOGY METHOD 08/12/2024 11:01 AM [facility] Hemoglobin 7.4(L) 11.5 - 16.0 g/dL LAB HEMETOLOGY METHOD 08/12/2024 11:01 AM [facility] Hematocrit 23.3(L) 35.0 - [...] K/mcL LAB HEMETOLOGY METHOD 08/12/2024 11:01 AM [facility] Blood Venous blood specimen / Unknown Venipuncture / Unknown 08/12/2024 4:49 AM EDT 08/12/2024 10:25 AM EDT us [place] Crespo MD LAB BLOOD ORDERABLES Final Resu lt [facility] [address] [place] [address], [place] [phone] documented in this encounter Visit Diagnoses Diagnosis Essential (primary) hypertension Unspecified essential hypertension Atherosclerotic heart disease of [place] coronary artery without angina pectoris Anemia, unspecified Chronic kidney disease, unspecified Hypothyroidism, unspecified Hyperlipidemia, unspecified documented in this encounter Care Teams Flight Surgeon Relationship Specialty Start Date End Date John Avina DO [address] [place] [phone] PCP - General Internal Medicine 06/10/24 documented as of this encounter
--- OUTSIDE RECORDS SUMMARY | 2025-02-02 15:17 | XMS_ITS | Encounter Summary ---
Author Organization [employer] Address [address] [place] [address] Care Team Providers Care Lace Cutter Name Role Phone John Avina DO Primary Care Provider [phone] Encounter Details Date Type Department Care Team (Late st Contact Info) Description 09/09/2024 Lab Requisition [facility] - Main Lab [address] [facility] [place] [address] [place] Crespo MD [address] [place] [address] Essential (primary) hypertension; Atherosclerotic heart disease of [place] coronary artery without angina pectoris; Anemia, unspecified; [...] Essential (primary) hypertension Atherosclerotic heart disease of [place] coronary artery without angina pectoris Anemia, unspecified Chronic kidney disease, unspecified BASIC METABOLIC PANEL Routine 09/10/2024 6:12 AM EDT Essential (primary) hypertension Atherosclerotic heart disease of [place] coronary artery without angina pectoris Anemia, unspecified Chronic kidney disease, unspecified documented in this encounter Results * (ABNORMAL) Basic metabolic panel (09/10/2024 6:12 AM EDT) Sodium 146(H) 133 - 145 mmol/L LAB CHEMISTRY METHOD 09/10/2024 10:04 AM [facility] Potassium 4.0 3.5 - 5.5 mmol/L LAB CHEMISTRY METHOD 09/10/2024 10:04 AM [facility] Chloride 113(H) 96 - 110 mmol/L LAB CHEMISTRY METHOD 09/10/2024 10:04 AM [facility] CO2 26 21 - 32 mmol/L LAB CHEMISTRY METHOD 09/10/2024 10:04 AM [facility] Anion Gap 7 3 - 11 LAB CHEMISTRY METHOD 09/10/2024 10:04 AM [facility] Glucose 84 70 - 100 mg/dL LAB CHEMISTRY METHOD 09/10/2024 10:04 AM [facility] BUN 44(H) 5 - 25 mg/dL LAB CHEMISTRY METHOD 09/10/2024 10:04 AM [facility] Creatinine 2.03(H) 0.50 - 1.10 mg/dL LAB CHEMISTRY METHOD 09/10/2024 10:04 AM [facility] eGFR 25(L) >=60 mL/min/1. 73m2 LAB CHEMISTRY METHOD 09/10/2024 10:04 AM [facility] Comment:Calculation based on the Chronic Kidney Disease Epidemiology Collaboration (CKD-EPI) equation refit without adjustment for race. BUN/Creatinine Ratio 21.7 LAB CHEMISTRY METHOD 09/10/2024 10:04 AM [facility] Calcium 8.8 8.5 - 10.5 mg/dL LAB CHEMISTRY METHOD 09/10/2024 10:04 AM [facility] Blood Venous blood specimen / Unknown Venipuncture / Unknown 09/10/2024 6:12 AM EDT 09/10/2024 9:16 AM EDT us [place] Crespo MD LAB BLOOD ORDERABLES Final Resu lt [facility] [address] [place] [address], * (ABNORMAL) Complete blood count (09/10/2024 6:12 AM EDT) [facility] WBC 5.2 4.8 - 10.8 K/mcL LAB HEMETOLOGY METHOD 09/10/2024 9:33 AM EDT [facility] RBC 2.50(L) 3.80 - 4.80 M/mcL LAB HEMETOLOGY METHOD 09/10/2024 9:33 AM EDT [facility] Hemoglobin 8.6(L) 11.5 - 16.0 g/dL LAB HEMETOLOGY METHOD 09/10/2024 9:33 AM EDT [facility] Hematocrit 26.4(L) 35.0 - 47.0 % LAB HEMETOLOGY [facility] 106.5(H) 79.0 - 98.0 FL LAB HEMETOLOGY METHOD 09/10/2024 9:33 AM EDT [facility] MCH 34.7(H) 27.0 - 32.0 pcg LAB HEMETOLOGY METHOD [facility]/10[facility]24 [facility] MCHC 32.6 32.0 - 37.0 g/dL LAB HEMETOLOGY METHOD 09/10/2024 9[facility] RDW 19.2(H) 11.0 - 15.0 [...] LAB BLOOD ORDERABLES Final Resu lt [facility] [address] [place] [address], documented in this encounter Visit Diagnoses Diagnosis Essential (primary) hypertension Unspecified essential hypertension Atherosclerotic heart disease of [place] coronary artery without angina pectoris Anemia, unspecified Chronic kidney disease, unspecified documented in this encounter Care Teams Lace Cutter Relationship Specialty Start Date End Date John Avina DO [address] [place] [phone] PCP - General Internal Medicine 06/10/24 documented as of this encounter
--- OUTSIDE RECORDS SUMMARY | 2025-02-02 15:17 | XMS_ITS | Encounter Summary ---
Author Organization [facility] Address [address] [place] [address] Care Team Providers Care Processing Analyst Name Role Phone John Avina DO Primary Care Provider [phone] Encounter Details Date Type Department Care Team (Late st Contact Info) Description 06/10/2024 Lab Requisition [facility] - Main Lab [address] [facility] [place] [address] Arianna Iraheta PA [address] [place], [place] [id number] Dysuria Social History Tobacco Use Types Packs/Day [...] ssp pneumoniae(A) RIC 06/12/2024 11:01 AM EST [facility] ([facility]) [facility] Comment: This is [...] MICROBIOLOGY - GENERAL ORD ERABLES Final Result [facility] ([facility] HOSPITAL LAB [address] [place] [address], documented in this encounter Visit Diagnoses Diagnosis Dysuria documented in this encounter Care Teams Processing Analyst Relationship Specialty Start Date End Date John Avina DO [address] [place] [phone] PCP - General Internal Medicine 06/10/24 documented as of this encounter
--- OUTSIDE RECORDS SUMMARY | 2025-02-02 15:17 | XMS_ITS | Encounter Summary ---
Author Organization [employer] Address [id number] [place] [phone] Care Team Providers Care Knitting Machine Tender Name Role Phone John Avina DO Primary Care Provider Encounter Details Date Type Department Care Team (Late st Contact Info) Description 09/18/2024 Lab Requisition [facility] - Main Lab [address] [facility] [address] [place] [address] Licnoln Crespo MD [address] [place] [address] Essential (primary) hypertension; Atherosclerotic heart disease of [place] coronary artery without angina pectoris; Anemia, unspecified [...] Unspecified essential hypertension Atherosclerotic heart disease of [place] coronary artery without angina pectoris Anemia, unspecified documented in this encounter Care Teams Knitting Machine Tender Relationship Specialty Start Date End Date John Avina DO [address] [place] [phone] PCP - General Internal Medicine 06/10/24 documented as of this encounter
--- OUTSIDE RECORDS SUMMARY | 2025-02-02 15:17 | XMS_ITS | Encounter Summary ---
Author Organization [employer] Address [address] [place] [address] Care Team Providers Care Double End Sewer Name Role Phone John Avina DO Primary Care Provider [phone] Encounter Details Date Type Department Care Team (Late st Contact Info) Description 08/26/2024 Lab Requisition [facility] - Main Lab 299 [facility] [place] [address] Lincoln Crespo MD [address] [place] [address] Essential (primary) hypertension; Atherosclerotic heart disease of [place] coronary artery without angina pectoris; Anemia, unspecified; [...] Essential (primary) hypertension Atherosclerotic heart disease of [place] coronary artery without angina pectoris Anemia, unspecified Chronic kidney disease, unspecified BASIC METABOLIC PANEL Routine 08/27/2024 5:31 AM EDT Essential (primary) hypertension Atherosclerotic heart disease of [place] coronary artery without angina pectoris Anemia, unspecified Chronic kidney disease, unspecified documented in this encounter Results * (ABNORMAL) Basic metabolic panel (08/27/2024 5:31 AM EDT) Sodium 144 133 - 145 mmol/L LAB CHEMISTRY METHOD 08/27/2024 10:08 AM [facility] LAB Potassium 4.1 3.5 - 5.5 mmol/L LAB CHEMISTRY METHOD 08/27/2024 10:08 AM [facility] Chloride 111(H) 96 - 110 mmol/L LAB CHEMISTRY METHOD 08/27/2024 10:08 AM [facility] CO2 26 21 - 32 mmol/L LAB CHEMISTRY METHOD 08/27/2024 10:08 AM [facility] Anion Gap 7 3 - 11 LAB CHEMISTRY METHOD 08/27/2024 10:08 AM [facility] Glucose 86 70 - 100 mg/dL LAB CHEMISTRY METHOD 08/27/2024 10:08 AM [facility] BUN 41(H) 5 - 25 mg/dL LAB CHEMISTRY METHOD 08/27/2024 10:08 AM [facility] Creatinine 1.64(H) 0.50 - 1.10 mg/dL LAB CHEMISTRY METHOD 08/27/2024 10:08 AM [facility] eGFR 32(L) >=60 mL/min/1. 73m2 LAB CHEMISTRY METHOD 08/27/2024 10:08 AM [facility] Comment:Calculation based on the Chronic Kidney Disease Epidemiology Collaboration (CKD-EPI) equation refit without adjustment for race. BUN/Creatinine Ratio 25.0 LAB CHEMISTRY METHOD 08/27/2024 10:08 AM [facility] Calcium 8.6 8.5 - 10.5 mg/dL LAB CHEMISTRY METHOD 08/27/2024 10:08 AM [facility] Blood Venous blood specimen / Unknown Venipuncture / Unknown 08/27/2024 5:31 AM EDT 08/27/2024 8:43 AM EDT us Lincoln Crespo MD LAB BLOOD ORDERABLES Final Resu lt [facility] [address] [place] [address], * (ABNORMAL) Complete blood count (08/27/2024 5:31 AM EDT) [facility] WBC 5.4 4.8 - 10.8 K/mcL LAB HEMETOLOGY METHOD [facility]24 [facility] RBC 2.70(L) 3.80 - 4.80 M/mcL LAB HEMETOLOGY METHOD 08/27/2024 9:02 AM [facility] Hemoglobin 9.0(L) 11.5 - 16.0 g/dL LAB HEMETOLOGY METHOD 08/27/2024 9:02 AM [facility] Hematocrit 27.9(L) 35.0 - 47.0 % LAB HEMETOLOGY METHOD 08/27/2024 9:02 AM [facility] MCV 104.1(H) 79.0 - 98.0 FL LAB HEMETOLOGY METHOD 08/27/2024 9:02 AM [facility] MCH 33.6(H) 27.0 - 32.0 pcg LAB HEMETOLOGY METHOD 08/27/2024 9:02 AM [facility] MCHC 32.3 32.0 - 37.0 g/dL LAB HEMETOLOGY METHOD 08/27/2024 9:02 AM [facility] RDW 19.1(H) 11.0 - 15.0 % LAB HEMETOLOGY METHOD 08/27/2024 9:02 AM [facility] Platelets 214 130 - 400 K/mcL LAB HEMETOLOGY METHOD 08/27/2024 9:02 AM [facility] MPV 9.3 7.0 - 11.0 FL LAB HEMETOLOGY METHOD 08/27/2024 9:02 AM [facility] NRBC 0.0 <1.0 % LAB HEMETOLOGY METHOD 08/27/2024 9:02 AM EDT [facility] NRBC Absolute 0.00 <0.10 K/mcL LAB HEMETOLOGY METHOD 08/27/2024 9:02 AM EDT [facility] Blood Venous blood specimen / Unknown Venipuncture / Unknown 08/27/2024 5:31 AM EDT 08/27/2024 8:51 AM EDT us Lincoln Crespo MD LAB BLOOD ORDERABLES Final Resu lt [facility] [address] [place] [address], documented in this encounter Visit Diagnoses Diagnosis Essential (primary) hypertension Unspecified essential hypertension Atherosclerotic heart disease of [place] coronary artery without angina pectoris Anemia, unspecified Chronic kidney disease, unspecified documented in this encounter Care Teams Double End Sewer Relationship Specialty Start Date End Date John Avina DO [address] [place] [phone] PCP - General Internal Medicine 06/10/24 documented as of this encounter
--- OUTSIDE RECORDS SUMMARY | 2025-02-02 15:17 | XMS_ITS | Encounter Summary ---
Author Organization [employer] Address [address] [place] [address] Care Team Providers Care Short Order Fry Cook Name Role Phone John Avina DO Primary Care Provider [phone] Encounter Details Date Type Department Care Team (Late st Contact Info) Description 09/05/2024 Lab Requisition [facility] - Main Lab [address] [facility] [place] [address] Lincoln Crespo MD [address] [place] [address] Essential (primary) hypertension; Atherosclerotic heart [...] LAB CHEMISTRY METHOD 09/07/2024 2:49 PM EDT [facility] Potassium 3.9 3.5 - 5.5 mmol/L LAB CHEMISTRY METHOD 09/07/2024 2:49 PM [facility] Chloride 109 96 - 110 mmol/L LAB CHEMISTRY METHOD 09/07/2024 2:49 PM [facility] CO2 23 21 - 32 mmol/L LAB CHEMISTRY METHOD 09/07/2024 2:49 PM [facility] Anion Gap 12(H) 3 - 11 LAB CHEMISTRY METHOD 09/07/2024 2:49 PM [facility] Glucose 77 70 - 100 mg/dL LAB CHEMISTRY METHOD 09/07/2024 2:49 PM [facility] BUN 48(H) 5 - 25 mg/dL LAB CHEMISTRY METHOD 09/07/2024 2:49 PM [facility] Creatinine 1.93(H) 0.50 - 1.10 mg/dL LAB CHEMISTRY METHOD 09/07/2024 2:49 PM [facility] eGFR 26(L) >=60 mL/min/1. 73m2 LAB CHEMISTRY METHOD 09/07/2024 2:49 PM [facility] Comment:Calculation based on the Chronic Kidney Disease Epidemiology Collaboration (CKD-EPI) equation refit without adjustment for race. BUN/Creatinine Ratio 24.9 LAB CHEMISTRY METHOD 09/07/2024 2:49 PM [facility] Calcium 8.9 8.5 - 10.5 mg/dL LAB CHEMISTRY METHOD 09/07/2024 2:49 PM [facility] AST (SGOT) 6(L) 10 - 42 unit/L LAB CHEMISTRY METHOD 09/07/2024 2:49 PM [facility] ALT (SGPT) 14 10 - 60 unit/L LAB CHEMISTRY METHOD 09/07/2024 2:49 PM [facility] Alkaline Phosphatase 61 42 - 121 unit/L LAB CHEMISTRY METHOD 09/07/2024 2:49 PM [facility] Total Protein 6.1 6.0 - 8.0 g/dL LAB CHEMISTRY METHOD 09/07/2024 2:49 PM EDT [facility] Albumin 3.0(L) 3.2 - 5.0 g/dL LAB CHEMISTRY METHOD 09/07/2024 2:49 PM EDT [facility] Total Bilirubin 0.5 0.0 - 1.4 mg/dL LAB CHEMISTRY METHOD 09/07/2024 2:49 PM EDT [facility] Blood Venous blood specimen / Unknown Venipuncture / Unknown 09/07/2024 5:11 AM EDT 09/07/2024 2:11 PM EDT us Lincoln Crespo MD LAB BLOOD ORDERABLES Final Resu lt [facility] [address] [place] [address], [place] [phone] * (ABNORMAL) Complete blood count (09/07/2024 5:11 AM EDT) WBC 5.1 4.8 - 10.8 K/mcL LAB HEMETOLOGY METHOD 09/07/2024 3:07 PM EDT [facility] RBC 2.40(L) 3.80 - 4.80 M/mcL LAB HEMETOLOGY METHOD 09/07/2024 3:07 PM EDT [facility] Hemoglobin 8.2(L) 11.5 - 16.0 g/dL LAB HEMETOLOGY METHOD 09/07/2024 3:07 PM EDT [facility] Hematocrit 25.9(L) 35.0 - 47.0 % LAB HEMETOLOGY METHOD 09/07/2024 3:07 PM EDT [facility] MCV 107.9(H) 79.0 - 98.0 FL LAB HEMETOLOGY METHOD 09/07/2024 3:07 PM EDT [facility] MCH 34.2(H) 27.0 - 32.0 pcg LAB HEMETOLOGY METHOD 09/07/2024 3:07 PM EDT [facility] MCHC 31.7(L) 32.0 - 37.0 g/dL LAB HEMETOLOGY METHOD 09/07/2024 3:07 PM EDT [facility] RDW 19.3(H) 11.0 - 15.0 % LAB HEMETOLOGY METHOD 09/07/2024 3:07 PM EDT [facility] Platelets 176 130 - 400 K/mcL LAB HEMETOLOGY METHOD 09/07/2024 3:07 PM EDT [facility] MPV 9.0 7.0 - 11.0 FL LAB HEMETOLOGY METHOD 09/07/2024 3:07 PM EDT [facility] NRBC 0.0 <1.0 % LAB HEMETOLOGY METHOD 09/07/2024 3:07 PM EDT [facility] NRBC Absolute 0.00 <0.10 K/mcL LAB HEMETOLOGY METHOD 09/07/2024 3:07 PM EDT [facility] Blood Venous blood specimen / Unknown Venipuncture / Unknown 09/07/2024 5:11 AM EDT 09/07/2024 12:03 PM EDT us Lincoln Crespo MD LAB BLOOD ORDERABLES Final Resu lt [facility] [address] [place] [address], [place] [phone] documented in this encounter Visit Diagnoses Diagnosis Essential (primary) hypertension Unspecified essential hypertension Atherosclerotic heart disease of [place] coronary artery without angina pectoris Anemia, unspecified documented in this encounter Care Teams Short Order Fry Cook Relationship Specialty Start Date End Date John Avina DO [address] [place] [phone] PCP - General Internal Medicine 06/10/24 documented as of this encounter
--- OUTSIDE RECORDS SUMMARY | 2025-02-02 15:17 | XMS_ITS | Encounter Summary ---
Author Organization [employer] Address [address] [place] [address] Care Team Providers Care Vacuum Worker Name Role Phone John Avina DO Primary Care Provider [phone] Encounter Details Date Type Department Care Team (Late st Contact Info) Description 08/22/2024 Lab Requisition [facility] - Main Lab 299 [facility] [place] [address] Lincoln Crespo MD [address] [place] [address] Essential (primary) hypertension; Atherosclerotic heart [...] LAB CHEMISTRY METHOD 08/24/2024 9:15 AM EDT [facility] Potassium 4.0 3.5 - 5.5 mmol/L LAB CHEMISTRY METHOD 08/24/2024 9:15 AM [facility] LAB Chloride 112(H) 96 - 110 mmol/L LAB CHEMISTRY METHOD 08/24/2024 9:15 AM [facility] CO2 23 21 - 32 mmol/L LAB CHEMISTRY METHOD 08/24/2024 9:15 AM [facility] Anion Gap 9 3 - 11 LAB CHEMISTRY METHOD 08/24/2024 9:15 AM [facility] Glucose 82 70 - 100 mg/dL LAB CHEMISTRY METHOD 08/24/2024 9:15 AM [facility] BUN 32(H) 5 - 25 mg/dL LAB CHEMISTRY METHOD 08/24/2024 9:15 AM [facility] Creatinine 1.88(H) 0.50 - 1.10 mg/dL LAB CHEMISTRY METHOD 08/24/2024 9:15 AM [facility] LAB eGFR 27(L) >=60 mL/min/1. 73m2 LAB CHEMISTRY METHOD 08/24/2024 9:15 AM [facility] Comment:Calculation based on the Chronic Kidney Disease Epidemiology Collaboration (CKD-EPI) equation refit without adjustment for race. BUN/Creatinine Ratio 17.0 LAB CHEMISTRY METHOD 08/24/2024 9:15 AM [facility] Calcium 8.8 8.5 - 10.5 mg/dL LAB CHEMISTRY METHOD 08/24/2024 9:15 AM [facility] AST (SGOT) 13 10 - 42 unit/L LAB CHEMISTRY METHOD 08/24/2024 9:15 AM [facility] ALT (SGPT) 17 10 - 60 unit/L LAB CHEMISTRY METHOD 08/24/2024 9:15 AM [facility] Alkaline Phosphatase 69 42 - 121 unit/L LAB CHEMISTRY METHOD 08/24/2024 9:15 AM [facility] Total Protein 5.7(L) 6.0 - 8.0 g/dL LAB CHEMISTRY METHOD 08/24/2024 9:15 AM EDT [facility] Albumin 2.8(L) 3.2 - 5.0 g/dL LAB CHEMISTRY METHOD 08/24/2024 9:15 AM EDT [facility] Total Bilirubin 0.3 0.0 - 1.4 mg/dL LAB CHEMISTRY METHOD 08/24/2024 9:15 AM EDT [facility] Blood Venous blood specimen / Unknown Venipuncture / Unknown 08/24/2024 5:46 AM EDT 08/24/2024 8:26 AM EDT us Lincoln Crespo MD LAB BLOOD ORDERABLES Final Resu lt [facility] [address] [place] [address], [place] [phone] * (ABNORMAL) Complete blood count (08/24/2024 5:46 AM EDT) WBC 6.8 4.8 - 10.8 K/mcL LAB HEMETOLOGY METHOD 08/24/2024 8:45 AM [facility] RBC 2.50(L) 3.80 - 4.80 M/mcL LAB HEMETOLOGY METHOD 08/24/2024 8:45 AM [facility] Hemoglobin 8.6(L) 11.5 - 16.0 g/dL LAB HEMETOLOGY METHOD 08/24/2024 8:45 AM T [facility] Hematocrit 26.2(L) 35.0 - 47.0 % LAB HEMETOLOGY METHOD 08/24/2024 8:45 AM [facility] MCV 103.6(H) 79.0 - 98.0 FL LAB HEMETOLOGY METHOD 08/24/2024 8:45 AM EDT [facility] MCH 34.0(H) 27.0 - 32.0 pcg LAB HEMETOLOGY METHOD 08/24/2024 8:45 AM EDT [facility] MCHC 32.8 32.0 - 37.0 g/dL LAB HEMETOLOGY METHOD 08/24/2024 8:45 AM EDT [facility] RDW 18.7(H) 11.0 - 15.0 % LAB HEMETOLOGY METHOD 08/24/2024 8:45 AM EDT [facility] Platelets 192 130 - 400 K/mcL LAB HEMETOLOGY METHOD 08/24/2024 8:45 AM EDT [facility] MPV 9.3 7.0 - 11.0 FL LAB HEMETOLOGY METHOD 08/24/2024 8:45 AM EDT [facility] NRBC 0.0 <1.0 % LAB HEMETOLOGY METHOD 08/24/2024 8:45 AM EDT [facility] NRBC Absolute 0.00 <0.10 K/mcL LAB HEMETOLOGY METHOD 08/24/2024 8:45 AM EDT [facility] Blood Venous blood specimen / Unknown Venipuncture / Unknown 08/24/2024 5:46 AM EDT 08/24/2024 8:32 AM EDT us Lincoln Crespo MD LAB BLOOD ORDERABLES Final Resu lt [facility] [address] [place] [address], [place] [phone] documented in this encounter Visit Diagnoses Diagnosis Essential (primary) hypertension Unspecified essential hypertension Atherosclerotic heart disease of [place] coronary artery without angina pectoris Anemia, unspecified documented in this encounter Care Teams Vacuum Worker Relationship Specialty Start Date End Date John Avina DO [address] [place] [phone] PCP - General Internal Medicine 06/10/24 documented as of this encounter
== END ==
LOC: HO.CARD 12:40
PROVIDERS: PCP Internal Medicine; Visit Provider Nurse Practitioner Family
DX: I34.0 Nonrheumatic mitral (valve) insufficiency (principal); I50.20 Unspecified systolic (congestive) heart failure
CPT/HCPCS: 93306

== ENCOUNTER → 2025-02-02 12:42 | Outpatient (BNV) | payer MEDICARE, SELFPAY | PROVIDERS: PCP Internal Medicine; Visit Provider Internal Medicine | DX: I50.30 Unspecified diastolic (congestive) heart failure (principal); I51.7 Cardiomegaly; I34.0 Nonrheumatic mitral (valve) insufficiency; I31.39 Other pericardial effusion (noninflammatory) | CPT/HCPCS: 93306 ==

== ENCOUNTER 2025-02-09 14:36 | Outpatient (AMB) | payer MEDICARE, SELFPAY ==
--- NOTE | 2025-02-09 14:39 | A.OFFVIS_ITS ---
Vital Signs 02/09/25 14:46 Height 4 ft 11 in Weight 120 lb BMI 24.2 BP 139/63 Blood Pressure Location Lt brachial Position Sitting Pulse 74 Pulse Source Pulse Oximeter Pulse Oximetry (%) 96 Oxygen Delivery Method Room Air Intake Visit Reasons: Discuss MRI Results Intake Note: Pain today 10/29 Body Artist Required: No Accompanied by: Self / Same As Patient Allergies diphenhydramine (From Benadryl) Allergy (Intermediate, Verified 02/09/25 14:47) Dizziness esomeprazole (From NEXIUM) Allergy (Intermediate, Verified 02/09/25 14:47) CHEST PAIN omeprazole (From PRILOSEC) Allergy (Intermediate, Verified 02/09/25 14:47) CHEST PAIN HPI Comments Details: The patient is a 79-year-old female presenting with lumbar spinal stenosis and associated left leg pain. The lumbar spinal stenosis was identified through MRI, revealing multilevel stenosis with moderate to severe narrowing at L4-L5 and L5- S1, affecting the right and left sides differently. The patient reports that the pain originates in the left buttock, radiates to the side of the hip and thigh, but does not extend below the knee. She has difficulty getting up from sitting position and ambulates with slow, antalgic gait. The patient has a history of osteoporosis, confirmed by a bone scan last year, which precludes the use of steroid injections due to the risk of compression fractures. Additionally, scoliosis and multilevel moderate to severe thoracolumbar spondylosis contributes to her symptoms, limiting her ability to walk for extended periods without support. Patient is considering minimally invasive surgical options and is interested in evaluation by our colleagues at [facility]. Patient also reports mid back pain that encircles to her right chest and under rib cage. She denies pain increase with cough, denies shortness of breaths, chest pain or tightness. Her port-a-cath is located in left pectoral area, currently not accessed. - Pain onset: Chronic, worsening pain. Originates in the left buttock, radiates to the side of the hip and thigh, does not extend below the knee. - Quality: Described as significant, with some days worse than others. Shooting, throbbing, aching, heavy. - Exacerbating factors: Walking without support, prolonged standing. - Relieving factors: Sitting down, using a cart or carriage for support. - Affect: Pain significantly impacts daily activities, limiting walking and standing. - Analgesia: Currently using Tylenol for pain management. - Activities of Daily Living: Requires support for walking, such as a cart or carriage. PRIOR: The patient is a 79-year-old female presenting with chronic low back pain and left hip pain. The chronic low back pain has been present for several years, primarily localized to the left buttock and into left leg, and is described as stabbing and sharp, exacerbated by getting out of bed and prolonged sitting. The pain occasionally affects her walking, requiring the use of a walker, and she has undergone physical therapy this year. The left hip pain is associated with a history of a left hip fracture, for which she underwent open reduction and internal fixation (ORIF) with screws in place. The hip x-ray shows no displacement or deformity, and the screws are stable. The patient reports that the hip pain is severe enough to prevent her from lying on her left side and affects her ability to get out of bed in the morning. Her complex medical history includes osteoarthritis, multiple myeloma, chronic kidney disease stage 3, diabetes mellitus, congestive heart failure, polymyalgia rheumatica, chronic anemia, and a history of pulmonary embolism. She also has os teoporosis in the left hip, which complicates potential treatment options. The patient experiences neuropathy in her feet, attributed to a past episode of shingles. - Onset and Timing: Chronic pain present for several years - Quality and Character: Stabbing and sharp pain - Primary Location: Left buttock and low back - Radiation: Pain localized, does not radiate down the leg - Exacerbating Factors: Getting out of bed, prolonged sitting, bending down - Relieving Factors: None specifically mentioned - Interference with Activities: Affects walking, requires use of a walker - Affect: Pain impacts daily functioning, particularly in the morning and when getting out of bed - Analgesia: Currently using Tylenol and occasionally oxycodone; gabapentin was discontinued - Adverse Effects: No specific adverse effects from medications mentioned - Activities of Daily Living: Pain affects walking and requires use of a walker - Aberrant Drug Related Behaviors: No aberrant behaviors reported [facility] Medical History Post-nasal drip Trouble swallowing Chronic back pain Impacted cerumen of left ear Lower back pain Left hip pain CAD (coronary atherosclerotic disease) Osteoarthritis Hypothyroidism Multiple myeloma CKD stage 3 due to type 2 diabetes mellitus Impingement syndrome, shoulder Left shoulder pain CHF (congestive heart failure) Closed left hip fracture CAD (coronary artery disease) CHF (congestive heart failure) Cervix prolapsed into vagina History of blood transfusion (~02/01/23) Diabetes mellitus HFrEF (heart failure with reduced ejection fraction) Cardiomyopathy Normal colonoscopy Type 2 diabetes mellitus Diverticulosis Irritable bowel syndrome Pulmonary emboli GERD (gastroesophageal reflux disease) Nephrolithiasis Hypoparathyroidism Papillary thyroid carcinoma HTN (hypertension) Polymyalgia rheumatica Hyperglycemia Chronic anemia Anemia Surgical History Status post hip surgery (~08/04/23) History of colonoscopy (~07/30/18) Stented coronary artery Breast mass, right H/O endoscopy History of cholecystectomy H/O total thyroidectomy Family History Sister CHF (congestive heart failure) Daughter Breast cancer Son Kidney stones Social History Household Members: Other Household Members Other:: other Housing: House Do you presently have visiting nurse or other home services: Yes Alcohol intake: current Alcohol intake frequency: does not drink Patient Tobacco Use Status: Former Tobacco user Years Smoked: 30 +/- e-Cigarette/Vaping Use: Never Used Second Hand Smoke Exposure: No Advance Directives Date on File: 06/27/24 service: No Current occupational status: retired Current occupation: Right Handed Cognitive needs: Yes (cane) Hearing needs: No Vision needs: Yes (reading glasses) Review of Systems Const Details: - Musculoskeletal: Reports significant left leg pain, denies pain extending below the knee. - Respiratory: Denies dyspnea, denies chest pain. Reports mid back pain radiating to right chest and ribcage. - Cardiovascular: Denies chest pain. or tightness, dizziness, or dyspnea. All systems reviewed & are unremarkable except as noted in HPI and below Physical Exam Vital Signs: Last Vital Signs Pulse 74 02/09/25 14:46 BP 139/63 02/09/25 14:46 Pulse Ox 96 02/09/25 14:46 Oxygen Delivery Method Room Air 02/09/25 14:46 BMI result Body Mass Index 24.2 General: Appears afebrile. Alert and oriented. Mood and affect appropriate. Follows and participates in conversation appropriately. Respiratory effort is unlabored. No cough. Able to transition from sit to stand unassisted. Antalgic, limping gait, difficulty rising from seated position, and use of a cane for ambulation. Resp Effort & Inspection: normal respiratory effort, no audible wheezes, no cough, not labored, no pursed lip breathing, no respiratory distress and no stridor General: Yes no CVA tenderness Back/Spine/Pelvis Other: Limited lumbar ROM due to pain. Lumbar extension reproduces mild pain and flexion and bending reproduce moderate pain. Mild midline TTP upper and lower back, no midline TTP in thoracic or cervical spine. Demonstrates 5/5 right, 4/5 left strength of quadriceps bilaterally as well as flexion/dorsiflexion of bilateral feet against resistance. 2+ pedal pulses bilaterally. Straight leg ris e with dorsiflexion positive on the left. Diminished patellar and achilles reflexes bilaterally. Facet loading test positive bilaterally. Cindi sign, Pelvic compression and Stinchfield tests are positive, left>right. No groin pain with I/E hip rotations. Valsalva maneuver negative. Back: no CVA tenderness Cervical Spine: cervical ROM normal, loss of normal cervical lordosis and No Cervical spine tenderness Thoracic/Lumbar Spine: thoracic and lumbar spine normal to inspection, No Thoracic/lumbar spine scar(s), Lasegue's sign positive on the left and diffuse, pain with thoraco-lumbar ROM, paraspinal muscle tenderness, thoraco-lumbar ROM limited, Thoracic/lumbar scoliosis, No thoracic spinal tenderness and lumbar spinal tenderness (L3-S1) Sacroiliac joints: bilaterally tender to palpation Extrem General: Yes capillary refill normal, Yes no clubbing, cyanosis or edema and Yes no calf tenderness Results Reviewed Results Reviewed: XR HIP, LEFT 12/09/24 CLINICAL INFORMATION: M25.552 - Pain in left hip COMPARISON: August 04, 2024 TECHNIQUE: AP upright, AP supine, and frog-leg lateral views of the left hip. FINDINGS: Since prior examination, 2 cannulated screws have been placed across the left femoral head and neck, lateral approach fixing a subcapital fracture. There is no interval displacement or deformity. IMPRESSION: ORIF left intracapsular hip fracture. XR LUMBOSACRAL SPINE WITH OBLIQUES 12/09/24 CLINICAL INFORMATION: M25.552 - Pain in left hip COMPARISON: Correlated to CT abdomen and pelvis dated June 26, 2024. TECHNIQUE: AP oblique and lateral views FINDINGS: Multilevel syndesmophyte formation and marginal osteophyte formation throughout the axial skeleton. Dextroconvex curvature of the upper lumbar spine apex at L1 to and levoconvex curvature apex at L4-5. Multilevel vacuum phenomenon at L1 to, L2-3, L3-4 and L4-5 levels. Multilevel decreased intervertebral disc height subchondral cyst formation and sclerosis of the endplates. Grade 1 anterolisthesis L5-S1. No lytic or blastic lesions. Vascular calcifications, aorta and iliac arteries and mesenteric arteries. Metallic screws in the left femoral head neck no fully included in the [id number]. Sclerosis and the sacroiliac joints. IMPRESSION: Multilevel moderate to severe thoracolumbar spondylosis and grade 1 anterolisthesis L5-S1. Scoliosis. Atherosclerosis disease. MRI Lumbar Spine without Contrast 01/13/25 TECHNIQUE: Multiplanar multisequence MR imaging was performed through the lumbar spine without contrast. 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 If level specific intervention is planned, correlate with an x-ray to ensure concordant numbering. Marrow and end-plates: Extensive metastatic changes are present. T12-L1: Moderate unchanged L1-L2: Moderate unchanged L2-L3: Mixed Modic 2 and Modic 1 changes L3-L4: Modic 1 signal L4-L5: Modic 2 signal with Modic 1 signal. L5-S1: Moderately 2 signal Alignment: There is mild dextroscoliosis. L1-2 demonstrates mild grade 1 retrolisthesis. L5-S1 demonstrates grade 1 anterolisthesis. Soft tissues: Numerous simple renal cysts are present bilaterally. There is an extrarenal pelvis involving both kidneys. There is moderate fatty streaking of paraspinal musculature. Conus: The termination of conus medullaris is within normal limits at the level of L2. T12-L1: There is moderate disc space narrowing and mild circumferential broad-based disc bulge without spinal stenosis or foraminal narrowing. L1-L2: There is moderate loss of disc height and broad posterior disc extrusion extending into the left subarticular zone and medial neural foramen. There is mild ligament flavum thickening and facet arthropathy. There is mild spinal stenosis with left lateral recess narrowing displacing the left L2 nerve root posteriorly. There is mild left foraminal narrowing without right-sided narrowing. L2-L3: There is mild loss of disc height and circumferential broad-based disc bulge with moderate facet degeneration and ligamentum flavum thickening resulting in moderate spinal stenosis. There is mild right and moderate left subarticular zone narrowing with likely encroachment of the left L3 nerve root. There is mild left foraminal narrowing without right-sided narrowing. L3-L4: There is severe loss disc height and circumferential broad-based disc bulge with severe facet arthropathy and ligamentum flavum thickening resulting in severe spinal stenosis. There is mild to moderate bilateral foraminal narrowing. L4-L5: There is mild loss of disc height and circumferential broad-based disc bulge with endplate osteophytes. There is moderate severe facet degeneration with ligamentum flavum thickening resulting in moderate spinal stenosis. There is severe right subarticular zone and moderate left subarticular zone narrowing with encroachment of the right L5 nerve root. There is severe right and minimal left foraminal narrowing. L5-S1: There is severe disc space narrowing with circumferential broad-based disc bulge. Disc indents thecal sac resulting in borderline spinal stenosis. There is severe right and moderate left subarticular zone narrowing with probable encroachment of right S1 nerve root and possible encroachment of the left S1 nerve root. There is severe bilateral foraminal narrowing. IMPRESSION: L1-L2: There is mild spinal stenosis with left lateral recess narrowing displacing the left L2 nerve root posteriorly. L2-L3: There is moderate spinal stenosis with mild right and moderate left subarticular zone narrowing with likely encroachment of the left L3 nerve root. L3-L4: There is severe spinal stenosis with mild to moderate bilateral foraminal narrowing. L4-L5: There is moderate spinal stenosis with severe right and moderate left subarticular zone narrowing with encroachment of the right L5 nerve root. There is severe right foraminal narrowing encroaching on the right L4 nerve root. L5-S1: There is severe right and moderate left subarticular zone narrowing with probable encroachment of right S1 nerve root and possible encroachment of the left S1 nerve root. There is severe bilateral foraminal narrowing likely encroaches on the bilateral L5 nerve root. Assessment & Plan Assessment & Plan (1) Lumbar scoliosis: Code(s): M41.9 - Scoliosis, unspecified Category: Medical (2) Lumbar radiculopathy: Code(s): M54.16 - Radiculopathy, lumbar region Category: Medical (3) Lumbar spinal stenosis: Code(s): M48.061 - Spinal stenosis, lumbar region without neurogenic claudication Category: Medical (4) Pleural pain: Code(s): R07.81 - Pleurodynia Category: Medical (5) Upper back pain: Code(s): M54.9 - Dorsalgia, unspecified Category: Medical Plan The patient will be referred to [facility] for evaluation of potential minimally invasive surgical options to address the severe lumbar spinal stenosis. Due to osteoporosis, steroid injections are contraindicated, and alternative pain management strategies will be considered. A chest and thoracic spine x-ray will be performed to rule out any underlying conditions contributing to the recent onset of right-sided pain. All questions and concerns have been answered and patient agreed with the treatment plan. Follow up for xray results and sooner as needed. Patient was informed and verbally consented to the use of an ambient scribe for clinic note documentation during this visit. Orders: Orders XR chest 2V Today R07.81 - Pleurodynia XR thoracic spine 3V Today M54.9 - Dorsalgia, unspecified Referrals Neuro Spine Referral M41.9 - Scoliosis, unspecified, M48.061 - Spinal stenosis, lumbar region without neurogenic claudication, M54.16 - Radiculopathy, lumbar region Coding Level of Care Code Est Pt Level 4 (94616) Complex EM visit Add On G2211 Diagnoses Lumbar scoliosis M41.9 Lumbar radiculopathy M54.16 Lumbar spinal stenosis M48.061 Pleural pain R07.81 Upper back pain M54.9
[2025-02-09 14:46] VITALS: BP 139/63; PULSE 74; O2SAT 96; BMI 24.2
--- OUTSIDE RECORDS SUMMARY | 2025-02-09 19:41 | XMS_ITS | Encounter Summary ---
Author Organization [facility] Address [address] [place] [address] Care Team Providers Care Stone Polisher Name Role Phone John Avina DO Primary Care Provider [phone] Encounter Details Date Type Department Care Team (Late st Contact Info) Description 08/15/2024 Lab Requisition [facility] - Main Lab [address] [facility] [place] [address] Lincoln Crespo MD [address] [place] [address] Other ulcerative colitis with rectal [...] AM EDT) WBC 6.7 4.8 - 10.8 K/[facility] LAB HEMETOLOGY METHOD 08/15/2024 11:29 AM EDT [facility] RBC 3.10(L) 3.80 - 4.80 M/[facility] LAB HEMETOLOGY METHOD 08/15/2024 11:29 AM [facility] LAB Hemoglobin 10.4(L) 11.5 - 16.0 g/dL LAB HEMETOLOGY METHOD 08/15/2024 11:29 AM [facility] LAB Hematocrit 31.4(L) 35.0 - 47.0 % LAB HEMETOLOGY METHOD 08/15/2024 11:29 AM [facility] LAB MCV 100.6(H) 79.0 - 98.0 FL LAB HEMETOLOGY METHOD 08/15/2024 11:29 AM [facility] LAB MCH 33.3(H) 27.0 - 32.0 pcg LAB HEMETOLOGY METHOD 08/15/2024 11:29 AM [facility] LAB MCHC 33.1 32.0 - 37.0 g/dL LAB HEMETOLOGY METHOD 08/15/2024 11:29 AM [facility] LAB RDW 18.6(H) 11.0 - 15.0 % LAB HEMETOLOGY METHOD 08/15/2024 11:29 AM [facility] LAB Platelets 228 130 - 400 K/mcL LAB HEMETOLOGY METHOD 08/15/2024 11:29 AM [facility] LAB MPV 9.4 7.0 - 11.0 FL LAB HEMETOLOGY METHOD 08/15/2024 11:29 AM [facility] LAB NRBC 0.0 <1.0 % LAB HEMETOLOGY METHOD 08/15/2024 11:29 AM [facility] LAB NRBC Absolute 0.00 <0.10 K/mcL LAB HEMETOLOGY METHOD 08/15/2024 11:29 AM [facility] LAB Blood Venous blood specimen / Unknown Venipuncture / Unknown 08/15/2024 9:21 AM EDT 08/15/2024 10:30 AM EDT Lincoln Crespo MD LAB BLOOD ORDERABLES Final Resu lt [facility] LAB [address] [place] [address], documented in this encounter Visit Diagnoses Diagnosis Other ulcerative colitis with rectal bleeding (CMS/HCC V24, CMS/HCC V28) Anemia in chronic kidney disease (CODE) documented in this encounter Care Teams Stone Polisher Relationship Specialty Start Date End Date John Avina DO [address] [place] [phone] PCP - General Internal Medicine 06/10/24 documented as of this encounter
--- OUTSIDE RECORDS SUMMARY | 2025-02-09 19:41 | XMS_ITS | Encounter Summary ---
Author Organization [facility] Address [address] [place] [address] Care Team Providers Care Cook Soup Name Role Phone John Avina DO Primary Care Provider [phone] Encounter Details Date Type Department Care Team (Late st Contact Info) Description 08/17/2024 Lab Requisition [facility] - Main Lab [address] [facility] [place] [address] Lincoln Crespo MD [address] [place] [address] Other ulcerative colitis with rectal [...] AM EDT) WBC 7.1 4.8 - 10.8 K/[facility] LAB HEMETOLOGY METHOD 08/18/2024 11:09 AM EDT [facility] LAB RBC 2.80(L) 3.80 - 4.80 M/[facility] LAB HEMETOLOGY METHOD 08/18/2024 11:09 AM [facility] LAB Hemoglobin 9.2(L) 11.5 - 16.0 g/dL LAB HEMETOLOGY METHOD 08/18/2024 11:09 AM [facility] LAB Hematocrit 28.6(L) 35.0 - 47.0 % LAB HEMETOLOGY METHOD 08/18/2024 11:09 AM [facility] LAB MCV 103.6(H) 79.0 - 98.0 FL LAB HEMETOLOGY METHOD 08/18/2024 11:09 AM [facility] LAB MCH 33.3(H) 27.0 - 32.0 pcg LAB HEMETOLOGY METHOD 08/18/2024 11:09 AM [facility] LAB MCHC 32.2 32.0 - 37.0 g/dL LAB HEMETOLOGY METHOD 08/18/2024 11:09 AM [facility] LAB RDW 18.5(H) 11.0 - 15.0 % LAB HEMETOLOGY METHOD 08/18/2024 11:09 AM [facility] LAB Platelets 216 130 - 400 K/mcL LAB HEMETOLOGY METHOD 08/18/2024 11:09 AM [facility] LAB MPV 9.2 7.0 - 11.0 FL LAB HEMETOLOGY METHOD 08/18/2024 11:09 AM [facility] LAB NRBC 0.0 <1.0 % LAB HEMETOLOGY METHOD 08/18/2024 11:09 AM [facility] LAB NRBC Absolute 0.00 <0.10 K/mcL LAB HEMETOLOGY METHOD 08/18/2024 11:09 AM [facility] LAB Blood Venous blood specimen / Unknown Venipuncture / Unknown 08/18/2024 4:57 AM EDT 08/18/2024 10:57 AM EDT Lincoln Crespo MD LAB BLOOD ORDERABLES Final Resu lt [facility] LAB [address] [place] [address], documented in this encounter Visit Diagnoses Diagnosis Other ulcerative colitis with rectal bleeding (CMS/HCC V24, CMS/HCC V28) Anemia in chronic kidney disease (CODE) documented in this encounter Care Teams Cook Soup Relationship Specialty Start Date End Date John Avina DO [address] [place] [phone] PCP - General Internal Medicine 06/10/24 documented as of this encounter
--- OUTSIDE RECORDS SUMMARY | 2025-02-09 19:41 | XMS_ITS | Encounter Summary ---
Author Organization [employer] Address [id number] [place] [phone] Care Team Providers Care Candy Supervisor Name Role Phone John Avina DO Primary Care Provider Encounter Details Date Type Department Care Team (Late st Contact Info) Description 09/18/2024 Lab Requisition [facility] - Main Lab [address] [facility] [address] [place] [address] Lincoln Crespo MD [address] [place] [address] Essential (primary) hypertension; Atherosclerotic heart disease of [place] coronary artery without angina pectoris; Anemia, unspecified [...] Unspecified essential hypertension Atherosclerotic heart disease of [place] coronary artery without angina pectoris Anemia, unspecified documented in this encounter Care Teams Candy Supervisor Relationship Specialty Start Date End Date John Avina DO [address] [place] [phone] PCP - General Internal Medicine 06/10/24 documented as of this encounter
--- OUTSIDE RECORDS SUMMARY | 2025-02-09 19:41 | XMS_ITS | Clinical Summary ---
Author Organization [address] Address [address] [place] [address] Phone Care Team Providers Care Branch Sales Manager Name Role Phone FabriceJohn solares Primary Care Provider [phone] Social History Tobacco Use Types Packs/Day Years [...] Essential (primary) hypertension Atherosclerotic heart disease of [place] coronary artery without angina pectoris Anemia, unspecified [...] LAB CHEMISTRY METHOD 09/17/2024 11:11 AM EDT [facility] LAB BUN 49(H) 5 - 25 mg/dL LAB CHEMISTRY METHOD 09/17/2024 11:11 AM EDT [facility] LAB Creatinine 1.74(H) 0.50 - 1.10 mg/dL LAB CHEMISTRY METHOD 09/17/2024 11:11 AM EDT [facility] LAB eGFR 30(L) >=60 mL/min/1. 73m2 LAB CHEMISTRY METHOD 09/17/2024 11:11 AM EDT [facility] LAB Comment:Calculation based on the Chronic Kidney Disease Epidemiology Collaboration (CKD-EPI) equation refit without adjustment for race. BUN/Creatinine Ratio 28.2 LAB CHEMISTRY METHOD 09/17/2024 11:11 AM EDT [facility] LAB Calcium 9.3 8.5 - 10.5 mg/dL LAB CHEMISTRY METHOD 09/17/2024 11:11 AM EDT [facility] LAB Blood Venous blood specimen / Unknown Venipuncture / Unknown 09/17/2024 8:40 AM EDT 09/17/2024 10:05 AM EDT Lincoln Crespo MD LAB BLOOD ORDERABLES Final Resu lt [facility] LAB [address] [place] [address], from Last 3 Months or Most Recently Relevant to Health Maintenance Insurance MEDICARE [facility] MEDICARE Care Teams Branch Sales Manager Relationship Specialty Start Date End Date John Avina DO [address] [place] [phone] PCP - General Internal Medicine 06/10/24
--- OUTSIDE RECORDS SUMMARY | 2025-02-09 19:41 | XMS_ITS | Encounter Summary ---
Author Organization [facility] Address [address] [place] [address] Care Team Providers Care Tentmaker Name Role Phone John Avina DO Primary Care Provider [phone] Encounter Details Date Type Department Care Team (Late st Contact Info) Description 06/10/2024 Lab Requisition [facility] - Main Lab [address] [facility] [place] [address] Arianna Iraheta PA [address] [place], [place] [id number] Dysuria Social History Tobacco Use Types Packs/Day [...] ssp pneumoniae(A) RIC 06/12/2024 11:01 AM EST [facility] Comment: This is an edited [...] - GENERAL ORD ERABLES Final Result [facility] LAB [address] [place] [address], documented in this encounter Visit Diagnoses Diagnosis Dysuria documented in this encounter Care Teams Tentmaker Relationship Specialty Start Date End Date John Avina DO [address] [place] [phone] PCP - General Internal Medicine 06/10/24 documented as of this encounter
--- OUTSIDE RECORDS SUMMARY | 2025-02-09 19:41 | XMS_ITS | Encounter Summary ---
Author Organization [employer] Address [address] [place] [address] Care Team Providers Care Phosphatic Fertilizer Supervisor Name Role Phone John Avina DO Primary Care Provider [phone] Encounter Details Date Type Department Care Team (Late st Contact Info) Description 08/30/2024 Lab Requisition [facility] - Main Lab [address] [facility] [place] [address] Lincoln Crespo MD [address] [place] [address] Essential (primary) hypertension; Atherosclerotic heart disease of [place] coronary artery without angina pectoris; Anemia, unspecified [...] Essential (primary) hypertension Atherosclerotic heart disease of [place] coronary artery without angina pectoris Anemia, unspecified COMPREHENSIVE METABOLIC PANEL Routine 08/31/2024 5:18 AM EDT Essential (primary) hypertension Atherosclerotic heart disease of [place] coronary artery without angina pectoris Anemia, unspecified documented in this encounter Results * (ABNORMAL) Comprehensive metabolic panel (08/31/2024 5:18 AM EDT) Sodium 141 133 - 145 mmol/L LAB CHEMISTRY METHOD 08/31/2024 1:17 PM EDT [facility] Potassium 4.7 3.5 - 5.5 mmol/L LAB CHEMISTRY METHOD 08/31/2024 1:17 PM [facility] LAB Comment:Hemolysis present Chloride 110 96 - 110 mmol/L LAB CHEMISTRY METHOD 08/31/2024 1:17 PM [facility] CO2 15(L) 21 - 32 mmol/L LAB CHEMISTRY METHOD 08/31/2024 1:17 PM [facility] Anion Gap 16(H) 3 - 11 LAB CHEMISTRY METHOD 08/31/2024 1:17 PM [facility] Glucose 67(L) 70 - 100 mg/dL LAB CHEMISTRY METHOD 08/31/2024 1:17 PM [facility] BUN 49(H) 5 - 25 mg/dL LAB CHEMISTRY METHOD 08/31/2024 1:17 PM [facility] Creatinine 1.99(H) 0.50 - 1.10 mg/dL LAB CHEMISTRY METHOD 08/31/2024 1:17 PM [facility] eGFR 25(L) >=60 mL/min/1. 73m2 LAB CHEMISTRY METHOD 08/31/2024 1:17 PM [facility] Comment:Calculation based on the Chronic Kidney Disease Epidemiology Collaboration (CKD-EPI) equation refit without adjustment for race. BUN/Creatinine Ratio 24.6 LAB CHEMISTRY METHOD 08/31/2024 1:17 PM [facility] Calcium 9.1 8.5 - 10.5 mg/dL LAB CHEMISTRY METHOD 08/31/2024 1:17 PM [facility] AST (SGOT) 14 10 - 42 unit/L LAB CHEMISTRY METHOD 08/31/2024 1:17 PM [facility] ALT (SGPT) 18 10 - 60 unit/L LAB CHEMISTRY METHOD 08/31/2024 1:17 PM [facility] Alkaline Phosphatase 70 42 [...] lt [facility] [address] [place] [address], [place] [phone] * (ABNORMAL) Complete blood count (08/31/2024 5:18 [...] lt [facility] [address] [place] [address], documented in this encounter Visit Diagnoses Diagnosis Essential (primary) hypertension Unspecified essential hypertension Atherosclerotic heart disease of [place] coronary artery without angina pectoris Anemia, unspecified documented in this encounter Care Teams Phosphatic Fertilizer Supervisor Relationship Specialty Start Date End Date John Avina DO [address] [place] [phone] PCP - General Internal Medicine 06/10/24 documented as of this encounter
--- OUTSIDE RECORDS SUMMARY | 2025-02-09 19:41 | XMS_ITS | Encounter Summary ---
Author Organization [employer] Address [address] [place] [address] Care Team Providers Care Drywall Hanger Framer Name Role Phone John Avina DO Primary Care Provider [phone] Encounter Details Date Type Department Care Team (Late st Contact Info) Description 09/02/2024 Lab Requisition [facility] - Main Lab [address] [facility] [place] [address] Lincoln Crespo MD [address] [place] [address] Essential (primary) hypertension; Atherosclerotic heart disease of [place] coronary artery without angina pectoris; Anemia, unspecified; [...] hypertension Atherosclerotic heart disease of [place] coronary artery without angina pectoris Anemia, unspecified Chronic kidney disease, unspecified BASIC METABOLIC PANEL Routine 09/03/2024 7:35 AM EDT Essential (primary) hypertension Atherosclerotic heart disease of [place] coronary artery without angina pectoris Anemia, unspecified Chronic kidney disease, unspecified documented in this encounter Results * (ABNORMAL) Basic metabolic panel (09/03/2024 7:35 AM EDT) Sodium 142 133 - 145 mmol/L LAB CHEMISTRY METHOD 09/03/2024 9:20 AM [facility] Potassium 4.0 3.5 - 5.5 mmol/L LAB CHEMISTRY METHOD 09/03/2024 9:20 AM [facility] Chloride 112(H) 96 - 110 mmol/L LAB CHEMISTRY METHOD 09/03/2024 9:20 AM [facility] CO2 22 21 - 32 mmol/L LAB CHEMISTRY METHOD 09/03/2024 9:20 AM [facility] Anion Gap 8 3 - 11 LAB CHEMISTRY METHOD 09/03/2024 9:20 AM [facility] Glucose 90 70 - 100 mg/dL LAB CHEMISTRY METHOD 09/03/2024 9:20 AM [facility] BUN 48(H) 5 - 25 mg/dL LAB CHEMISTRY METHOD 09/03/2024 9:20 AM [facility] Creatinine 1.72(H) 0.50 - 1.10 mg/dL LAB CHEMISTRY METHOD 09/03/2024 9:20 AM [facility] eGFR 30(L) >=60 mL/min/1. 73m2 LAB CHEMISTRY METHOD 09/03/2024 9:20 AM [facility] Comment:Calculation based on the Chronic Kidney Disease Epidemiology Collaboration (CKD-EPI) equation refit without adjustment for race. BUN/Creatinine Ratio 27.9 LAB CHEMISTRY METHOD 09/03/2024 9:20 AM [facility] Calcium 9.3 8.5 - 10.5 mg/dL LAB CHEMISTRY METHOD 09/03/2024 9:20 AM [facility] Blood Venous blood specimen / Unknown Venipuncture / Unknown 09/03/2024 7:35 AM EDT 09/03/2024 8:28 AM EDT us Lincoln Crespo MD LAB BLOOD ORDERABLES Final Resu lt [facility] [address] [place] [address], * (ABNORMAL) Complete blood count (09/03/2024 7:35 AM EDT) [facility] Signature WBC 4.5(L) 4.8 - 10.8 K/mcL LAB HEMETOLOGY METHOD 09/03/2024 8:46 AM EDT [facility] RBC 2.60(L) 3.80 - 4.80 M/mcL LAB HEMETOLOGY METHOD 09/03/2024 8:46 AM EDT [facility] Hemoglobin 8.8(L) 11.5 - 16.0 g/dL LAB HEMETOLOGY METHOD 09/03/2024 8:46 AM [facility] Hematocrit 27.0(L) 35.0 - 47.0 % LAB HEMETOLOGY METHOD 09/03/2024 8:46 AM [facility] MCV 105.1(H) 79.0 - 98.0 FL LAB HEMETOLOGY METHOD 09/03/2024 8:46 AM [facility] MCH 34.2(H) 27.0 - 32.0 pcg LAB HEMETOLOGY METHOD 09/03/2024 8:46 AM [facility] MCHC 32.6 32.0 - 37.0 g/dL LAB HEMETOLOGY METHOD 09/03/2024 8:46 AM [facility] RDW 19.1(H) 11.0 - 15.0 % LAB HEMETOLOGY METHOD 09/03/2024 8:46 AM EDT [facility] Platelets 200 130 - 400 K/mcL LAB HEMETOLOGY METHOD 09/03/2024 8:46 AM EDT [facility] MPV 9.2 7.0 - 11.0 FL LAB HEMETOLOGY METHOD 09/03/2024 8:46 AM EDT [facility] NRBC 0.0 <1.0 % LAB HEMETOLOGY METHOD 09/03/2024 8:46 AM EDT [facility] NRBC Absolute 0.00 <0.10 K/mcL LAB HEMETOLOGY METHOD 09/03/2024 8:46 AM EDT [facility] Blood Venous blood specimen / Unknown Venipuncture / Unknown 09/03/2024 7:35 AM EDT 09/03/2024 8:28 AM EDT us Lincoln Crespo MD LAB BLOOD ORDERABLES Final Resu lt [facility] [address] [place] [address], documented in this encounter Visit Diagnoses Diagnosis Essential (primary) hypertension Unspecified essential hypertension Atherosclerotic heart disease of [place] coronary artery without angina pectoris Anemia, unspecified Chronic kidney disease, unspecified documented in this encounter Care Teams Drywall Hanger Framer Relationship Specialty Start Date End Date John Avina DO [address] [place] [phone] PCP - General Internal Medicine 06/10/24 documented as of this encounter
--- OUTSIDE RECORDS SUMMARY | 2025-02-09 19:41 | XMS_ITS | Clinical Summary ---
Author Organization [facility] Address [address] [facility] [address] [place] [address] Phone Care Team Providers Care Small Lot Operator Name Role Phone Aniceto Emery MD Primary Care Provider [phone] Juliann Tse MD Unavailable [phone] Henrry Espino MD Unavailable [phone] Allergies Active Allergy Reactions Criticality Noted Date [...] Smoking Tobacco: Former Cigarettes 1 23 1 449 - [phone] Education Answer Date Recorded Are you interested [...] EST) SODIUM 138 135 - 145 mmol/L [facility] LIC# [id number] POTASSIUM 3.8 3.5 - 5.0 mmol/L [facility] LIC# [id number] CHLORIDE 104 98 - 108 mmol/L [facility] LIC# [id number] CO2 27 23 - 32 mmol/L [facility] LIC# [id number] BUN 28(H) 9 - 25 mg/dL [facility] LIC# [id number] CREATININE 1.26 0.7 - 1.3 mg/dL [facility] LIC# [id number] GLUCOSE 143(H) 70 - 100 mg/dL [facility] LIC# [id number] ALBUMIN 4.3 3.7 - 5.4 g/dL [facility] LIC# [id number] TOTAL PROTEIN 7.4 6.0 - 8.0 g/dL [facility] LIC# [id number] CALCIUM 9.8 8.8 - 10.5 mg/dL [facility] LIC# [id number] ALKALINE PHOSPHATASE 82 36 - 118 U/L [facility] LIC# [id number] TOTAL BILIRUBIN 0.5 0.2 - 1.2 mg/dL [facility] LIC# [id number] AST 15 9 - 30 U/L [facility] LIC# [id number] ALT 16 7 - 52 U/L [facility] LIC# [id number] GLOBULIN 3.1 2.3 - 4.2 g/dL [facility] LIC# [id number] EGFR 42 mL/min/1.7 3m2 [facility] LIC# [id number] Comment:Abnormal if <60 mL/m in/1.73m2. If patient is -Maltese, multiply the result by 1.21. ANION GAP 7 5 - 17 mmol/L [facility] LIC# [id number] 06/04/2016 4:11 PM EST 06/04/2016 4:19 PM EST Henrry Espino MD LAB BLOOD ORDERABLES Final Result [facility] LIC# [id number] [address] [place] [address] from Last 3 Months or Most Recently Relevant to Health Maintenance Insurance PPO PPO [place] [address] [place] [address] PPO PPO PPO PPO PPO [facility] PPO Advance Directives For more information, please contact: [phone] (9AM - 5PM [facility], Saturday-Saturday) Documents on File Type Date Recorded Patient Concrete Carpenter Expl anation Healthcare Proxy 06/04/2016 3:21 PM HCP Care Teams Small Lot Operator Relationship Specialty Start Date End Date Aniceto Emery MD PCP - General Internal Medicine 04/25/16 Henrry Espino MD [address] [place] [address] Multiple Myeloma [facility] [place] [address] [email or web address] PCP - Hematology/Oncology Medical Oncology 06/06/16 Juliann Tse MD [address] [place] [email or web address] Physician Hematology and Oncology 04/25/16 Additional Source Comments The information contained in this document represents components of the legal health record. It is not the complete legal health record.[facility]
--- OUTSIDE RECORDS SUMMARY | 2025-02-09 19:41 | XMS_ITS | Encounter Summary ---
Author Organization [employer] Address [address] [place] [address] Care Team Providers Care Manager Radio Name Role Phone John Avina DO Primary Care Provider [phone] Encounter Details Date Type Department Care Team (Late st Contact Info) Description 08/19/2024 Lab Requisition [facility] - Main Lab [address] [facility] [place] [address] Lincoln Crespo MD [address] [place] [address] Essential (primary) hypertension; Atherosclerotic heart disease of [place] coronary artery without angina pectoris; Anemia, unspecified; [...] Essential (primary) hypertension Atherosclerotic heart disease of [place] coronary artery without angina pectoris Anemia, unspecified Chronic kidney disease, unspecified BASIC METABOLIC PANEL Routine 08/20/2024 6:56 AM EDT Essential (primary) hypertension Atherosclerotic heart disease of [place] coronary artery without angina pectoris Anemia, unspecified Chronic kidney disease, unspecified documented in this encounter Results * (ABNORMAL) Basic metabolic panel (08/20/2024 6:56 AM EDT) Sodium 140 133 - 145 mmol/L LAB CHEMISTRY METHOD 08/20/2024 10:17 AM [facility] LAB Potassium 4.1 3.5 - 5.5 mmol/L LAB CHEMISTRY METHOD 08/20/2024 10:17 AM [facility] Chloride 107 96 - 110 mmol/L LAB CHEMISTRY METHOD 08/20/2024 10:17 AM [facility] CO2 25 21 - 32 mmol/L LAB CHEMISTRY METHOD 08/20/2024 10:17 AM [facility] Anion Gap 8 3 - 11 LAB CHEMISTRY METHOD 08/20/2024 10:17 AM [facility] Glucose 100 70 - 100 mg/dL LAB CHEMISTRY METHOD 08/20/2024 10:17 AM [facility] BUN 31(H) 5 - 25 mg/dL LAB CHEMISTRY METHOD 08/20/2024 10:17 AM [facility] Creatinine 1.63(H) 0.50 - 1.10 mg/dL LAB CHEMISTRY METHOD 08/20/2024 10:17 AM [facility] LAB eGFR 32(L) >=60 mL/min/1. 73m2 LAB CHEMISTRY METHOD 08/20/2024 10:17 AM [facility] Comment:Calculation based on the Chronic Kidney Disease Epidemiology Collaboration (CKD-EPI) equation refit without adjustment for race. BUN/Creatinine Ratio 19.0 LAB CHEMISTRY METHOD 08/20/2024 10:17 AM [facility] Calcium 9.2 8.5 - 10.5 mg/dL LAB CHEMISTRY METHOD 08/20/2024 10:17 AM [facility] Blood Venous blood specimen / Unknown Venipuncture / Unknown 08/20/2024 6:56 AM EDT 08/20/2024 9:28 AM EDT us Lincoln Crespo MD LAB BLOOD ORDERABLES Final Resu lt [facility] [address] [place] [address], * (ABNORMAL) Complete blood count (08/20/2024 6:56 AM EDT) [facility] WBC 8.6 4.8 - 10.8 K/mcL LAB HEMETOLOGY METHOD 08/20/2024 9:58 AM [facility] RBC 3.30(L) 3.80 - 4.80 M/mcL LAB HEMETOLOGY METHOD 08/20/2024 9:[facility] Hemoglobin 10.9(L) 11.5 - 16.0 g/dL LAB HEMETOLOGY METHOD 08/20/2024 9:58 AM [facility] Hematocrit 34.1(L) 35.0 - 47.0 % LAB HEMETOLOGY METHOD 08/20/2024 9:58 AM [facility] MCV 102.1(H) 79.0 - 98.0 FL LAB HEMETOLOGY METHOD 08/20/2024 9:58 AM [facility] MCH 32.6(H) 27.0 - 32.0 pcg LAB HEMETOLOGY METHOD 08/20/2024 9:58 AM [facility] MCHC 32.0 32.0 - 37.0 g/dL LAB HEMETOLOGY METHOD 08/20/2024 9:58 AM [facility] RDW 18.5(H) 11.0 - 15.0 % LAB HEMETOLOGY METHOD 08/20/2024 9:58 AM [facility] Platelets 264 130 - 400 K/mcL LAB HEMETOLOGY METHOD 08/20/2024 9:58 AM [facility] MPV 9.0 7.0 - 11.0 FL LAB HEMETOLOGY METHOD 08/20/2024 9:58 AM [facility] NRBC 0.0 <1.0 % LAB HEMETOLOGY METHOD 08/20/2024 9:[address] [facility] LAB NRBC Absolute 0.00 <0.10 K/mcL LAB HEMETOLOGY METHOD 08/20/2024 9:[address] [facility] Blood Venous blood specimen / Unknown Venipuncture / Unknown 08/20/2024 6:56 AM EDT 08/20/2024 9:29 AM EDT us Lincoln Cerspo MD LAB BLOOD ORDERABLES Final Resu lt [facility] [address] [place] [address], documented in this encounter Visit Diagnoses Diagnosis Essential (primary) hypertension Unspecified essential hypertension Atherosclerotic heart disease of [place] coronary artery without angina pectoris Anemia, unspecified Chronic kidney disease, unspecified documented in this encounter Care Teams Manager Radio Relationship Specialty Start Date End Date John Avina DO [address] [place] [phone] PCP - General Internal Medicine 06/10/24 documented as of this encounter
--- OUTSIDE RECORDS SUMMARY | 2025-02-09 19:41 | XMS_ITS | Encounter Summary ---
Author Organization [employer] Address [address] [place] [phone] Care Team Providers Care Telephone Answerer Name Role Phone John Avina DO Primary Care Provider [phone] Encounter Details Date Type Department Care Team (Late st Contact Info) Description 08/12/2024 Lab Requisition [facility] - Main Lab [address] [facility] [place] [address] Lincoln Crespo MD [address] [place] [address] Essential (primary) hypertension; Atherosclerotic heart disease of [place] coronary artery without angina pectoris; Anemia, unspecified; [...] Essential (primary) hypertension Atherosclerotic heart disease of [place] coronary artery without angina pectoris Anemia, unspecified Chronic kidney disease, unspecified Hypothyroidism, unspecified Hyperlipidemia, unspecified COMPREHENSIVE METABOLIC PANEL Routine 08/12/2024 4:49 AM EDT Essential (primary) hypertension Atherosclerotic heart disease of [place] coronary artery without angina pectoris Anemia, unspecified Chronic kidney disease, unspecified Hypothyroidism, unspecified Hyperlipidemia, unspecified documented in this encounter Results * (ABNORMAL) Comprehensive metabolic panel (08/12/2024 4:49 AM EDT) Sodium 140 133 - 145 mmol/L LAB CHEMISTRY METHOD 08/12/2024 11:43 AM [facility] Potassium 4.4 3.5 - 5.5 mmol/L LAB CHEMISTRY METHOD 08/12/2024 11:43 AM [facility] Chloride 104 96 - 110 mmol/L LAB CHEMISTRY METHOD 08/12/2024 11:43 AM [facility] CO2 30 21 - 32 mmol/L LAB CHEMISTRY METHOD 08/12/2024 11:43 AM [facility] Anion Gap 6 3 - 11 LAB CHEMISTRY METHOD 08/12/2024 11:43 AM [facility] Glucose 81 70 - 100 mg/dL LAB CHEMISTRY METHOD 08/12/2024 11:43 AM [facility] BUN 35(H) 5 - 25 mg/dL LAB CHEMISTRY METHOD 08/12/2024 11:43 AM [facility] Creatinine 1.81(H) 0.50 - 1.10 mg/dL LAB CHEMISTRY METHOD 08/12/2024 11:43 AM [facility] eGFR 29(L) >=60 mL/min/1. 73m2 LAB CHEMISTRY METHOD 08/12/2024 11:43 AM [facility] Comment:Calculation based on the Chronic Kidney Disease Epidemiology Collaboration (CKD-EPI) equation refit without adjustment for race. BUN/Creatinine Ratio 19.3 LAB CHEMISTRY METHOD 08/12/2024 11:43 AM [facility] Calcium 8.3(L) 8.5 - 10.5 mg/dL LAB CHEMISTRY METHOD 08/12/2024 11:43 AM [facility] AST (SGOT) 7(L) 10 - 42 unit/L LAB CHEMISTRY METHOD 08/12/2024 11:43 AM [facility] ALT (SGPT) 7(L) 10 - 60 unit/L LAB CHEMISTRY METHOD 08/12/2024 11:43 AM EDT [facility] Alkaline Phosphatase 65 42 - 121 unit/L LAB CHEMISTRY METHOD 08/12/2024 11:43 AM T [facility] Total Protein 5.5(L) 6.0 - 8.0 g/dL LAB CHEMISTRY METHOD 08/12/2024 11:43 AM [facility] Albumin 2.3(L) 3.2 - 5.0 g/dL LAB CHEMISTRY METHOD 08/12/2024 11:43 AM T [facility] Total Bilirubin 0.5 0.0 - 1.4 mg/dL LAB CHEMISTRY METHOD 08/12/2024 11:43 AM [facility] Blood Venous blood specimen / Unknown Venipuncture / Unknown 08/12/2024 4:49 AM EDT 08/12/2024 10:25 AM EDT Lincoln Crespo MD LAB BLOOD ORDERABLES Final Resu lt [facility] [address] [place] [address], * (ABNORMAL) Complete blood count (08/12/2024 4:49 AM EDT) WBC 6.8 4.8 - 10.8 K/mcL LAB HEMETOLOGY METHOD 08/12/2024 11:01 AM [facility] RBC 2.20(L) 3.80 - 4.80 M/mcL LAB HEMETOLOGY METHOD 08/12/2024 11:01 AM [facility] Hemoglobin 7.4(L) 11.5 - 16.0 g/dL LAB HEMETOLOGY METHOD 08/12/2024 11:01 AM [facility] Hematocrit 23.3(L) 35.0 - 47.0 % LAB HEMETOLOGY METHOD 08/12/2024 11:01 AM EDT [facility] MCV 108.4(H) 79.0 - 98.0 FL LAB HEMETOLOGY METHOD 08/12/2024 11:01 AM EDT [facility] MCH 34.4(H) 27.0 - 32.0 pcg LAB HEMETOLOGY METHOD 08/12[facility]2024 [facility] MCHC 31.8(L) 32.0 - 37.0 g/dL LAB HEMETOLOGY METHOD 08/12/2024 11:01 AM EDT [facility] RDW 17.7(H) 11.0 - 15.0 % LAB HEMETOLOGY METHOD 08/12/2024 11:[facility] Platelets 203 130 - 400 K/mcL LAB HEMETOLOGY METHOD 08/12/2024 11:[facility] MPV 9.8 7.0 - 11.0 FL LAB HEMETOLOGY METHOD 08/12/2024 11:[facility] NRBC 0.0 <1.0 % LAB HEMETOLOGY METHOD 08/12/2024 11:[facility] NRBC Absolute 0.00 <0.10 K/mcL LAB HEMETOLOGY METHOD 08/12/2024 11:01 AM [facility] Blood Venous blood specimen / Unknown Venipuncture / Unknown 08/12/2024 4:49 AM EDT 08/12/2024 10:25 AM EDT us Lincoln Crespo MD LAB BLOOD ORDERABLES Final Resu lt [facility] [address] [place] [address], [place] [phone] documented in this encounter Visit Diagnoses Diagnosis Essential (primary) hypertension Unspecified essential hypertension Atherosclerotic heart disease of [place] coronary artery without angina pectoris Anemia, unspecified Chronic kidney disease, unspecified Hypothyroidism, unspecified Hyperlipidemia, unspecified documented in this encounter Care Teams Telephone Answerer Relationship Specialty Start Date End Date John Avina DO [address] [place] [phone] PCP - General Internal Medicine 06/10/24 documented as of this encounter
--- OUTSIDE RECORDS SUMMARY | 2025-02-09 19:41 | XMS_ITS | Encounter Summary ---
Author Organization [employer] Address [address] [place] [address] Care Team Providers Care Microbiology Lab Analyst Name Role Phone John Avina DO Primary Care Provider [phone] Encounter Details Date Type Department Care Team (Late st Contact Info) Description 08/26/2024 Lab Requisition [facility] - Main Lab 299 [facility] [place] [address] Lincoln Crespo MD [address] [place] [address] Essential (primary) hypertension; Atherosclerotic heart disease of [place] coronary artery without angina pectoris; Anemia, unspecified; [...] Essential (primary) hypertension Atherosclerotic heart disease of [place] coronary artery without angina pectoris Anemia, unspecified Chronic kidney disease, unspecified BASIC METABOLIC PANEL Routine 08/27/2024 5:31 AM EDT Essential (primary) hypertension Atherosclerotic heart disease of [place] coronary artery without angina pectoris Anemia, unspecified Chronic kidney disease, unspecified documented in this encounter Results * (ABNORMAL) Basic metabolic panel (08/27/2024 5:31 AM EDT) Sodium 144 133 - 145 mmol/L LAB CHEMISTRY METHOD 08/27/2024 10:08 AM [facility] Potassium 4.1 3.5 - 5.5 mmol/L LAB CHEMISTRY METHOD 08/27/2024 10:08 AM [facility] Chloride 111(H) 96 - 110 mmol/L LAB CHEMISTRY METHOD 08/27/2024 10:08 AM [facility] CO2 26 21 - 32 mmol/L LAB CHEMISTRY METHOD 08/27/2024 10:08 AM [facility] Anion Gap 7 3 - 11 LAB CHEMISTRY METHOD 08/27/2024 10:08 AM [facility] Glucose 86 70 - 100 mg/dL LAB CHEMISTRY METHOD 08/27/2024 10:08 AM [facility] BUN 41(H) 5 - 25 mg/dL LAB CHEMISTRY METHOD 08/27/2024 10:08 AM [facility] Creatinine 1.64(H) 0.50 - 1.10 mg/dL LAB CHEMISTRY METHOD 08/27/2024 10:08 AM [facility] eGFR 32(L) >=60 mL/min/1. 73m2 LAB CHEMISTRY METHOD 08/27/2024 10:08 AM [facility] Comment:Calculation based on the Chronic Kidney Disease Epidemiology Collaboration (CKD-EPI) equation refit without adjustment for race. BUN/Creatinine Ratio 25.0 LAB CHEMISTRY METHOD 08/27/2024 10:08 AM [facility] Calcium 8.6 8.5 - 10.5 mg/dL LAB CHEMISTRY METHOD 08/27/2024 10:08 AM [facility] Blood Venous blood specimen / Unknown Venipuncture / Unknown 08/27/2024 5:31 AM EDT 08/27/2024 8:43 AM EDT us Lincoln Crespo MD LAB BLOOD ORDERABLES Final Resu lt [facility] LAB [address] [place] [address], * (ABNORMAL) Complete blood count (08/27/2024 5:31 AM EDT) [facility] WBC 5.4 4.8 - 10.8 K/mcL LAB [facility] RBC 2.70(L) 3.80 - 4.80 M/mcL LAB HEMETOLOGY METHOD 08/27/2024 9:02 AM [facility] Hemoglobin 9.0(L) 11.5 - 16.0 g/dL LAB HEMETOLOGY METHOD 08/27/2024 9:02 AM [facility] Hematocrit 27.9(L) 35.0 - 47.0 % LAB HEMETOLOGY METHOD 08/27/2024 9:02 AM [facility] MCV 104.1(H) 79.0 - 98.0 FL LAB HEMETOLOGY METHOD 08/27/2024 9:02 AM [facility] MCH 33.6(H) 27.0 - 32.0 pcg LAB HEMETOLOGY METHOD 08/27/2024 9:02 AM [facility] MCHC 32.3 32.0 - 37.0 g/dL LAB HEMETOLOGY METHOD 08/27/2024 9:02 AM [facility] LAB RDW 19.1(H) 11.0 - 15.0 % LAB HEMETOLOGY METHOD 08/27/2024 9:02 AM [facility] Platelets 214 130 - 400 K/mcL LAB HEMETOLOGY METHOD 08/27/2024 9:02 AM [facility] MPV 9.3 7.0 - 11.0 FL LAB HEMETOLOGY METHOD 08/27/2024 9:02 AM [facility] NRBC 0.0 <1.0 % LAB HEMETOLOGY METHOD 08/27/2024 9:02 AM EDT [facility] LAB NRBC Absolute 0.00 <0.10 K/mcL LAB HEMETOLOGY METHOD 08/27/2024 9:02 AM EDT [facility] LAB Blood Venous blood specimen / Unknown Venipuncture / Unknown 08/27/2024 5:31 AM EDT 08/27/2024 8:51 AM EDT us Lincoln Crespo MD LAB BLOOD ORDERABLES Final Resu lt [facility] LAB [address] [place] [address], documented in this encounter Visit Diagnoses Diagnosis Essential (primary) hypertension Unspecified essential hypertension Atherosclerotic heart disease of [place] coronary artery without angina pectoris Anemia, unspecified Chronic kidney disease, unspecified documented in this encounter Care Teams Microbiology Lab Analyst Relationship Specialty Start Date End Date John Avina DO [address] [place] [phone] PCP - General Internal Medicine 06/10/24 documented as of this encounter
--- OUTSIDE RECORDS SUMMARY | 2025-02-09 19:41 | XMS_ITS | Encounter Summary ---
Author Organization [facility] Address [address] [place] [address] Care Team Providers Care Research Scientist Name Role Phone John Avina DO Primary Care Provider [phone] Encounter Details Date Type Department Care Team (Late st Contact Info) Description 08/22/2024 Lab Requisition [facility] - Main Lab 299 [facility] [place] [address] Lincoln Crespo MD [address] [place] [address] Essential (primary) hypertension; Atherosclerotic heart disease of [place] coronary artery without angina pectoris; Anemia, unspecified [...] Essential (primary) hypertension Atherosclerotic heart disease of [place] coronary artery without angina pectoris Anemia, unspecified COMPREHENSIVE METABOLIC PANEL Routine 08/24/2024 5:46 AM EDT Essential (primary) hypertension Atherosclerotic heart disease of [place] coronary artery without angina pectoris Anemia, unspecified documented in this encounter Results * (ABNORMAL) Comprehensive metabolic panel (08/24/2024 5:46 AM EDT) Sodium 144 133 - 145 mmol/L LAB CHEMISTRY METHOD 08/24/2024 9:15 AM EDT [facility] Potassium 4.0 3.5 - 5.5 mmol/L LAB CHEMISTRY METHOD 08/24/2024 9:15 AM [facility] LAB Chloride 112(H) 96 - 110 mmol/L LAB CHEMISTRY METHOD 08/24/2024 9:15 AM [facility] CO2 23 21 - 32 mmol/L LAB CHEMISTRY METHOD 08/24/2024 9:15 AM [facility] Anion Gap 9 3 - 11 LAB CHEMISTRY METHOD 08/24/2024 9:15 AM [facility] Glucose 82 70 - 100 mg/dL LAB CHEMISTRY METHOD 08/24/2024 9:15 AM [facility] BUN 32(H) 5 - 25 mg/dL LAB CHEMISTRY METHOD 08/24/2024 9:15 AM [facility] LAB Creatinine 1.88(H) 0.50 - 1.10 mg/dL LAB CHEMISTRY METHOD 08/24/2024 9:15 AM [facility] LAB eGFR 27(L) >=60 mL/min/1. 73m2 LAB CHEMISTRY METHOD 08/24/2024 9:15 AM [facility] LAB Comment:Calculation based on the Chronic Kidney Disease Epidemiology Collaboration (CKD-EPI) equation refit without adjustment for race. BUN/Creatinine Ratio 17.0 LAB CHEMISTRY METHOD 08/24/2024 9:15 AM [facility] Calcium 8.8 8.5 - 10.5 mg/dL LAB CHEMISTRY METHOD 08/24/2024 9:15 AM [facility] LAB AST (SGOT) 13 10 - 42 unit/L LAB CHEMISTRY METHOD 08/24/2024 9:15 AM [facility] ALT (SGPT) 17 10 - 60 unit/L LAB CHEMISTRY METHOD 08/24/2024 9:15 AM [facility] Alkaline Phosphatase 69 42 - 121 unit/L LAB CHEMISTRY METHOD 08/24/2024 9:15 AM [facility] Total Protein 5.7(L) 6.0 - 8.0 g/dL LAB CHEMISTRY METHOD 08/24/2024 9:15 AM EDT [facility] Albumin 2.8(L) 3.2 - 5.0 g/dL LAB CHEMISTRY METHOD 08/24/2024 9:15 AM EDT [facility] LAB Total Bilirubin 0.3 0.0 - 1.4 mg/dL LAB CHEMISTRY METHOD 08/24/2024 9:15 AM EDT [facility] LAB Blood Venous blood specimen / Unknown Venipuncture / Unknown 08/24/2024 5:46 AM EDT 08/24/2024 8:26 AM EDT us Lincoln Crespo MD LAB BLOOD ORDERABLES Final Resu lt [facility] [address] [place] [address], [place] [phone] * (ABNORMAL) Complete blood count (08/24/2024 5:46 AM EDT) WBC 6.8 4.8 - 10.8 K/mcL LAB HEMETOLOGY METHOD 08/24/2024 8:45 AM [facility] RBC 2.50(L) 3.80 - 4.80 M/mcL LAB HEMETOLOGY METHOD 08/24/2024 8:45 AM [facility] Hemoglobin 8.6(L) 11.5 - 16.0 g/dL LAB HEMETOLOGY METHOD 08/24/2024 8:45 AM T [facility] LAB Hematocrit 26.2(L) 35.0 - 47.0 % LAB HEMETOLOGY METHOD 08/24/2024 8:45 AM [facility] MCV 103.6(H) 79.0 - 98.0 FL LAB HEMETOLOGY METHOD 08/24/2024 8:45 AM EDT [facility] MCH 34.0(H) 27.0 - 32.0 pcg LAB HEMETOLOGY METHOD 08/24/2024 8:45 AM EDT [facility] MCHC 32.8 32.0 - 37.0 g/dL LAB HEMETOLOGY METHOD 08/24/2024 8:45 AM EDT [facility] RDW 18.7(H) 11.0 - 15.0 % LAB HEMETOLOGY METHOD 08/24/2024 8:45 AM EDT [facility] Platelets 192 130 - 400 K/mcL LAB HEMETOLOGY METHOD 08/24/2024 8:45 AM EDT [facility] MPV 9.3 7.0 - 11.0 FL LAB HEMETOLOGY METHOD 08/24/2024 8:45 AM EDT [facility] NRBC 0.0 <1.0 % LAB HEMETOLOGY METHOD 08/24/2024 8:45 AM EDT [facility] NRBC Absolute 0.00 <0.10 K/mcL LAB HEMETOLOGY METHOD 08/24/2024 8:45 AM EDT [facility] Blood Venous blood specimen / Unknown Venipuncture / Unknown 08/24/2024 5:46 AM EDT 08/24/2024 8:32 AM EDT us Lincoln Crespo MD LAB BLOOD ORDERABLES Final Resu lt [facility] [address] [place] [address], [place] [phone] documented in this encounter Visit Diagnoses Diagnosis Essential (primary) hypertension Unspecified essential hypertension Atherosclerotic heart disease of [place] coronary artery without angina pectoris Anemia, unspecified documented in this encounter Care Teams Research Scientist Relationship Specialty Start Date End Date John Avina DO [address] [place] [phone] PCP - General Internal Medicine 06/10/24 documented as of this encounter
--- OUTSIDE RECORDS SUMMARY | 2025-02-09 19:41 | XMS_ITS | Encounter Summary ---
Author Organization [employer] Address [address] [place] [address] Care Team Providers Care Last Repairer Name Role Phone John Avina DO Primary Care Provider [phone] Encounter Details Date Type Department Care Team (Late st Contact Info) Description 08/14/2024 Lab Requisition [facility] - Main Lab 299 [facility] [place] [address] Lincoln Crespo MD [address] [place] [address] Essential (primary) hypertension; Atherosclerotic heart disease of [place] coronary artery without angina pectoris; Anemia, unspecified [...] Essential (primary) hypertension Atherosclerotic heart disease of [place] coronary artery without angina pectoris Anemia, unspecified COMPREHENSIVE METABOLIC PANEL Routine 08/17/2024 5:41 AM EDT Essential (primary) hypertension Atherosclerotic heart disease of [place] coronary artery without angina pectoris Anemia, unspecified documented in this encounter Results * (ABNORMAL) Comprehensive metabolic panel (08/17/2024 5:41 AM EDT) Sodium 141 133 - 145 mmol/L LAB CHEMISTRY METHOD 08/17/2024 1:27 PM EDT [facility] Potassium 3.8 3.5 - 5.5 mmol/L LAB CHEMISTRY METHOD 08/17/2024 1:27 PM [facility] Chloride 108 96 - 110 mmol/L LAB CHEMISTRY METHOD 08/17/2024 1:27 PM [facility] CO2 23 21 - 32 mmol/L LAB CHEMISTRY METHOD 08/17/2024 1:27 PM [facility] Anion Gap 10 3 - 11 LAB CHEMISTRY METHOD 08/17/2024 1:27 PM [facility] Glucose 69(L) 70 - 100 mg/dL LAB CHEMISTRY METHOD 08/17/2024 1:27 PM [facility] BUN 34(H) 5 - 25 mg/dL LAB CHEMISTRY METHOD 08/17/2024 1:27 PM [facility] Creatinine 1.53(H) 0.50 - 1.10 mg/dL LAB CHEMISTRY METHOD 08/17/2024 1:27 PM [facility] LAB eGFR 35(L) >=60 mL/min/1. 73m2 LAB CHEMISTRY METHOD 08/17/2024 1:27 PM [facility] Comment:Calculation based on the Chronic Kidney Disease Epidemiology Collaboration (CKD-EPI) equation refit without adjustment for race. BUN/Creatinine Ratio 22.2 LAB CHEMISTRY METHOD 08/17/2024 1:27 PM [facility] Calcium 8.7 8.5 - 10.5 mg/dL LAB CHEMISTRY METHOD 08/17/2024 1:27 PM [facility] AST (SGOT) 9(L) 10 - 42 unit/L LAB CHEMISTRY METHOD 08/17/2024 1:27 PM [facility] ALT (SGPT) 8(L) 10 - 60 unit/L LAB CHEMISTRY METHOD 08/17/2024 1:27 PM [facility] Alkaline Phosphatase 67 42 - 121 unit/L LAB CHEMISTRY METHOD 08/17/2024 1:27 PM [facility] Total Protein 5.5(L) 6.0 - 8.0 g/dL LAB CHEMISTRY METHOD 08/17/2024 1:[address] [facility] Albumin 2.4(L) 3.2 - 5.0 g/dL LAB CHEMISTRY METHOD 08/17/2024 1:[address] [facility] Total Bilirubin 0.4 0.0 - 1.4 mg/dL LAB CHEMISTRY METHOD 08/17/2024 1:[address] [facility] Blood Venous blood specimen / Unknown Venipuncture / Unknown 08/17/2024 5:41 AM EDT 08/17/2024 10:15 AM EDT us Lincoln Crespo MD LAB BLOOD ORDERABLES Final Resu lt [facility] LAB [address] [place] [address], * (ABNORMAL) Complete blood count (08/17/2024 5:41 AM EDT) WBC 7.2 4.8 - 10.8 K/mcL LAB HEMETOLOGY METHOD 08/17/2024 11:28 AM [facility] RBC 2.90(L) 3.80 - 4.80 M/mcL LAB HEMETOLOGY METHOD 08/17/2024 11:[address] [facility] Hemoglobin 9.6(L) 11.5 - 16.0 g/dL LAB HEMETOLOGY METHOD 08/17/2024 11:[address] [facility] Hematocrit 29.9(L) 35.0 - 47.0 % LAB HEMETOLOGY METHOD [facility] MCV 103.5(H) 79.0 - 98.0 FL LAB HEMETOLOGY METHOD 08/17/2024 11:[address] [facility] MCH 33.2(H) 27.0 - 32.0 pcg LAB HEMETOLOGY METHOD 08/17/2024 11:28 AM [facility] MCHC 32.1 32.0 - 37.0 g/dL LAB HEMETOLOGY METHOD 08/17/2024 11:28 AM [facility] LAB RDW 18.2(H) 11.0 - 15.0 % LAB HEMETOLOGY METHOD 08/17/2024 11:28 AM [facility] Platelets 215 130 - 400 K/mcL LAB HEMETOLOGY METHOD 08/17/2024 11:28 AM [facility] LAB MPV 9.2 7.0 - 11.0 FL LAB HEMETOLOGY METHOD 08/17/2024 11:28 AM [facility] NRBC 0.0 <1.0 % LAB HEMETOLOGY METHOD 08/17/2024 11:28 AM [facility] LAB NRBC Absolute 0.00 <0.10 K/mcL LAB HEMETOLOGY METHOD 08/17/2024 11:28 AM [facility] LAB Blood Venous blood specimen / Unknown Venipuncture / Unknown 08/17/2024 5:41 AM EDT 08/17/2024 10:15 AM EDT us Lincoln Crespo MD LAB BLOOD ORDERABLES Final Resu lt [facility] [address] [place] [address], documented in this encounter Visit Diagnoses Diagnosis Essential (primary) hypertension Unspecified essential hypertension Atherosclerotic heart disease of [place] coronary artery without angina pectoris Anemia, unspecified documented in this encounter Care Teams Last Repairer Relationship Specialty Start Date End Date John Avina DO [address] [place] [phone] PCP - General Internal Medicine 06/10/24 documented as of this encounter
--- OUTSIDE RECORDS SUMMARY | 2025-02-09 19:42 | XMS_ITS | Encounter Summary ---
Author Organization [facility] Address [address] [place] [address] Care Team Providers Care Copy Manager Name Role Phone John Avina DO Primary Care Provider [phone] Encounter Details Date Type Department Care Team (Late st Contact Info) Description 08/16/2024 Lab Requisition [facility] - Main Lab 299 [facility] [place] [address] Lincoln Crespo MD [address] [place] [address] Other ulcerative colitis with rectal [...] AM EDT) WBC 7.2 4.8 - 10.8 K/[facility] LAB HEMETOLOGY METHOD 08/16/2024 10:41 AM EDT [facility] RBC 2.90(L) 3.80 - 4.80 M/[facility] LAB HEMETOLOGY METHOD 08/16/2024 10:[address] [facility] LAB Hemoglobin 9.7(L) 11.5 - 16.0 g/dL LAB HEMETOLOGY METHOD 08/16/2024 10:[address] [facility] LAB Hematocrit 29.9(L) 35.0 - 47.0 % LAB HEMETOLOGY METHOD 08/16/2024 10:[address] [facility] LAB MCV 101.7(H) 79.0 - 98.0 FL LAB HEMETOLOGY METHOD 08/16/2024 10:[address] [facility] LAB MCH 33.0(H) 27.0 - 32.0 pcg LAB HEMETOLOGY METHOD 08/16/2024 10:[address] [facility] LAB MCHC 32.4 32.0 - 37.0 g/dL LAB HEMETOLOGY METHOD 08/16/2024 10:[address] [facility] LAB RDW 18.1(H) 11.0 - 15.0 % LAB HEMETOLOGY METHOD 08/16/2024 10:[address] [facility] LAB Platelets 246 130 - 400 K/mcL LAB HEMETOLOGY METHOD 08/16/2024 10:[address] [facility] LAB MPV 9.2 7.0 - 11.0 FL LAB HEMETOLOGY METHOD 08/16/2024 10:[address] [facility] LAB NRBC 0.0 <1.0 % LAB HEMETOLOGY METHOD 08/16/2024 10:[address] [facility] LAB NRBC Absolute 0.00 <0.10 K/mcL LAB HEMETOLOGY METHOD 08/16/2024 10:[address] [facility] LAB Blood Venous blood specimen / Unknown Venipuncture / Unknown 08/16/2024 8:48 AM EDT 08/16/2024 10:02 AM EDT Lincoln Crespo MD LAB BLOOD ORDERABLES Final Resu lt [facility] LAB [address] [place] [address], documented in this encounter Visit Diagnoses Diagnosis Other ulcerative colitis with rectal bleeding (CMS/HCC V24, CMS/HCC V28) Anemia in chronic kidney disease (CODE) documented in this encounter Care Teams Copy Manager Relationship Specialty Start Date End Date John Avina DO [address] [place] [phone] PCP - General Internal Medicine 06/10/24 documented as of this encounter
--- OUTSIDE RECORDS SUMMARY | 2025-02-09 19:42 | XMS_ITS | Encounter Summary ---
Author Organization [facility] Address [address] [place] [address] Care Team Providers Care Director Of Corporate Strategy Name Role Phone John Avina DO Primary Care Provider [phone] Encounter Details Date Type Department Care Team (Late st Contact Info) Description 09/09/2024 Lab Requisition [facility] - Main Lab 299 [facility] [place] [address] Lincoln Crespo MD [address] [place] [address] Essential (primary) hypertension; Atherosclerotic heart disease of [place] coronary artery without angina pectoris; Anemia, unspecified; [...] Essential (primary) hypertension Atherosclerotic heart disease of [place] coronary artery without angina pectoris Anemia, unspecified Chronic kidney disease, unspecified BASIC METABOLIC PANEL Routine 09/10/2024 6:12 AM EDT Essential (primary) hypertension Atherosclerotic heart disease of [place] coronary artery without angina pectoris Anemia, unspecified Chronic kidney disease, unspecified documented in this encounter Results * (ABNORMAL) Basic metabolic panel (09/10/2024 6:12 AM EDT) Sodium 146(H) 133 - 145 mmol/L LAB CHEMISTRY METHOD 09/10/2024 10:04 AM [facility] LAB Potassium 4.0 3.5 - 5.5 mmol/L LAB CHEMISTRY METHOD 09/10/2024 10:04 AM [facility] LAB Chloride 113(H) 96 - 110 mmol/L LAB CHEMISTRY METHOD 09/10/2024 10:04 AM [facility] LAB CO2 26 21 - 32 mmol/L LAB CHEMISTRY METHOD 09/10/2024 10:04 AM [facility] LAB Anion Gap 7 3 - 11 LAB CHEMISTRY METHOD 09/10/2024 10:04 AM [facility] LAB Glucose 84 70 - 100 mg/dL LAB CHEMISTRY METHOD 09/10/2024 10:04 AM [facility] BUN 44(H) 5 - 25 mg/dL LAB CHEMISTRY METHOD 09/10/2024 10:04 AM [facility] Creatinine 2.03(H) 0.50 - 1.10 mg/dL LAB CHEMISTRY METHOD 09/10/2024 10:04 AM [facility] LAB eGFR 25(L) >=60 mL/min/1. 73m2 LAB CHEMISTRY METHOD 09/10/2024 10:04 AM [facility] LAB Comment:Calculation based on the Chronic Kidney Disease Epidemiology Collaboration (CKD-EPI) equation refit without adjustment for race. BUN/Creatinine Ratio 21.7 LAB CHEMISTRY METHOD 09/10/2024 10:04 AM [facility] Calcium 8.8 8.5 - 10.5 mg/dL LAB CHEMISTRY METHOD 09/10/2024 10:04 AM [facility] LAB Blood Venous blood specimen / Unknown Venipuncture / Unknown 09/10/2024 6:12 AM EDT 09/10/2024 9:16 AM EDT us Lincoln Crespo MD LAB BLOOD ORDERABLES Final Resu lt [facility] LAB [address] [place] [address], * (ABNORMAL) Complete blood count (09/10/2024 6:12 AM EDT) [facility] WBC 5.2 4.8 - 10.8 K/mcL LAB HEMETOLOGY METHOD 09/10/2024 9:33 AM EDT [facility] LAB RBC 2.50(L) 3.80 - 4.80 M/mcL LAB HEMETOLOGY METHOD 09/10/2024 9:33 AM EDT [facility] Hemoglobin 8.6(L) 11.5 - 16.0 g/dL LAB HEMETOLOGY METHOD 09/10/2024 9:33 AM EDT [facility] LAB Hematocrit 26.4(L) 35.0 - 47.0 % LAB HEMETOLOGY METHOD 09/10[facility]24 [facility] MCV 106.5(H) 79.0 - 98.0 FL LAB HEMETOLOGY METHOD 09/10/2024 9:33 AM EDT [facility] LAB MCH 34.7(H) 27.0 - 32.0 pcg LAB HEMETOLOGY METHOD 09/10/2024 9:33 [facility] MCHC 32.6 32.0 - 37.0 g/dL LAB HEMETOLOGY METHOD 09/10/2024 9:33 [facility] RDW 19.2(H) 11.0 - 15.0 % LAB HEMETOLOGY METHOD 09/10/2024 9:33 AM EDT [facility] LAB Platelets 161 130 - 400 K/mcL LAB HEMETOLOGY METHOD 09/10/2024 9:33 AM EDT [facility] LAB MPV 9.3 7.0 - 11.0 FL LAB HEMETOLOGY METHOD 09/10/2024 9:33 AM EDT [facility] NRBC 0.0 <1.0 % LAB HEMETOLOGY METHOD 09/10/2024 9:33 AM EDT [facility] LAB NRBC Absolute 0.00 <0.10 K/mcL LAB HEMETOLOGY METHOD 09/10/2024 9:33 AM EDT [facility] LAB Blood Venous blood specimen / Unknown Venipuncture / Unknown 09/10/2024 6:12 AM EDT 09/10/2024 9:16 AM EDT us Lincoln Crespo MD LAB BLOOD ORDERABLES Final Resu lt [facility] [address] [place] [address], documented in this encounter Visit Diagnoses Diagnosis Essential (primary) hypertension Unspecified essential hypertension Atherosclerotic heart disease of [place] coronary artery without angina pectoris Anemia, unspecified Chronic kidney disease, unspecified documented in this encounter Care Teams Director Of Corporate Strategy Relationship Specialty Start Date End Date John Avina DO [address] [place] [phone] PCP - General Internal Medicine 06/10/24 documented as of this encounter
--- OUTSIDE RECORDS SUMMARY | 2025-02-09 19:42 | XMS_ITS | Encounter Summary ---
Author Organization [employer] Address [address] [place] [address] Care Team Providers Care Math And Sciences Department Chair Name Role Phone John Avina DO Primary Care Provider [phone] Encounter Details Date Type Department Care Team (Late st Contact Info) Description 09/05/[address] [facility] - Main Lab [address] [facility] [place] [address] Lincoln Crespo MD [address] [place] [address] Essential (primary) hypertension; Atherosclerotic heart disease of [place] coronary artery without angina pectoris; Anemia, unspecified [...] Essential (primary) hypertension Atherosclerotic heart disease of [place] coronary artery without angina pectoris Anemia, unspecified COMPREHENSIVE METABOLIC PANEL Routine 09/07/2024 5:11 AM EDT Essential (primary) hypertension Atherosclerotic heart disease of [place] coronary artery without angina pectoris Anemia, unspecified documented in this encounter Results * (ABNORMAL) Comprehensive metabolic panel (09/07/2024 5:11 AM EDT) Sodium 144 133 - 145 mmol/L LAB CHEMISTRY METHOD 09/07/2024 2:49 PM EDT [facility] Potassium 3.9 3.5 - 5.5 mmol/L LAB CHEMISTRY METHOD 09/07/2024 2:49 PM [facility] Chloride 109 96 - 110 mmol/L LAB CHEMISTRY METHOD 09/07/2024 2:49 PM [facility] CO2 23 21 - 32 mmol/L LAB CHEMISTRY METHOD 09/07/2024 2:49 PM [facility] Anion Gap 12(H) 3 - 11 LAB CHEMISTRY METHOD 09/07/2024 2:49 PM [facility] Glucose 77 70 - 100 mg/dL LAB CHEMISTRY METHOD 09/07/2024 2:49 PM [facility] BUN 48(H) 5 - 25 mg/dL LAB CHEMISTRY METHOD 09/07/2024 2:49 PM [facility] Creatinine 1.93(H) 0.50 - 1.10 mg/dL LAB CHEMISTRY METHOD 09/07/2024 2:49 PM [facility] eGFR 26(L) >=60 mL/min/1. 73m2 LAB CHEMISTRY METHOD 09/07/2024 2:49 PM [facility] Comment:Calculation based on the Chronic Kidney Disease Epidemiology Collaboration (CKD-EPI) equation refit without adjustment for race. BUN/Creatinine Ratio 24.9 LAB CHEMISTRY METHOD 09/07/2024 2:49 PM [facility] Calcium 8.9 8.5 - 10.5 mg/dL LAB CHEMISTRY METHOD 09/07/2024 2:49 PM [facility] AST (SGOT) 6(L) 10 - 42 unit/L LAB CHEMISTRY METHOD 09/07/2024 2:49 PM [facility] ALT (SGPT) 14 10 - 60 unit/L LAB CHEMISTRY METHOD 09/07/2024 2:49 PM [facility] Alkaline Phosphatase 61 42 - 121 unit/L LAB CHEMISTRY METHOD 09/07/2024 2:49 PM [facility] Total Protein 6.1 6.0 - 8.0 g/dL LAB CHEMISTRY METHOD 09/07/2024 2:49 PM EDT [facility] Albumin 3.0(L) 3.2 - 5.0 g/dL LAB CHEMISTRY METHOD 09/07/2024 2:49 PM EDT [facility] Total Bilirubin 0.5 0.0 - 1.4 mg/dL LAB CHEMISTRY METHOD 09/07/2024 2:49 PM EDT [facility] Blood Venous blood specimen / Unknown Venipuncture / Unknown 09/07/2024 5:11 AM EDT 09/07/2024 2:11 PM EDT us Lincoln Crespo MD LAB BLOOD ORDERABLES Final Resu lt [facility] [address] [place] [address], [place] [phone] * (ABNORMAL) Complete blood count (09/07/2024 5:11 AM EDT) WBC 5.1 4.8 - 10.8 K/mcL LAB HEMETOLOGY METHOD 09/07/2024 3:07 PM EDT [facility] RBC 2.40(L) 3.80 - 4.80 M/mcL LAB HEMETOLOGY METHOD 09/07/2024 3:07 PM EDT [facility] Hemoglobin 8.2(L) 11.5 - 16.0 g/dL LAB HEMETOLOGY METHOD 09/07/2024 3:07 PM EDT [facility] Hematocrit 25.9(L) 35.0 - 47.0 % LAB HEMETOLOGY METHOD 09/07/2024 3:07 PM EDT [facility] MCV 107.9(H) 79.0 - 98.0 FL LAB HEMETOLOGY METHOD 09/07/2024 3:07 PM EDT [facility] MCH 34.2(H) 27.0 - 32.0 pcg LAB HEMETOLOGY METHOD 09/07/2024 3:07 PM EDT [facility] MCHC 31.7(L) 32.0 - 37.0 g/dL LAB HEMETOLOGY METHOD 09/07/2024 3:07 PM EDT [facility] RDW 19.3(H) 11.0 - 15.0 % LAB HEMETOLOGY METHOD 09/07/2024 3:07 PM EDT [facility] Platelets 176 130 - 400 K/mcL LAB HEMETOLOGY METHOD 09/07/2024 3:07 PM EDT [facility] MPV 9.0 7.0 - 11.0 FL LAB HEMETOLOGY METHOD 09/07/2024 3:07 PM EDT [facility] NRBC 0.0 <1.0 % LAB HEMETOLOGY METHOD 09/07/2024 3:07 PM EDT [facility] NRBC Absolute 0.00 <0.10 K/mcL LAB HEMETOLOGY METHOD 09/07/2024 3:07 PM EDT [facility] Blood Venous blood specimen / Unknown Venipuncture / Unknown 09/07/2024 5:11 AM EDT 09/07/2024 12:03 PM EDT us Lincoln Crespo MD LAB BLOOD ORDERABLES Final Resu lt [facility] [address] [place] [address], [place] [phone] documented in this encounter Visit Diagnoses Diagnosis Essential (primary) hypertension Unspecified essential hypertension Atherosclerotic heart disease of [place] coronary artery without angina pectoris Anemia, unspecified documented in this encounter Care Teams Math And Sciences Department Chair Relationship Specialty Start Date End Date John Avina DO [address] [place] [phone] PCP - General Internal Medicine 06/10/24 documented as of this encounter
--- OUTSIDE RECORDS SUMMARY | 2025-02-09 19:42 | XMS_ITS | Encounter Summary ---
Author Organization [employer] Address [address] [place] [address] Care Team Providers Care Rn Rehab Name Role Phone John Avina DO Primary Care Provider [phone] Encounter Details Date Type Department Care Team (Late st Contact Info) Description 09/16/2024 Lab Requisition [facility] - Main Lab [address] [facility] [place] [address] Lincoln Crespo MD [address] [place] [address] Essential (primary) hypertension; Atherosclerotic heart disease of [place] coronary artery without angina pectoris; Anemia, [...] Essential (primary) hypertension Atherosclerotic heart disease of [place] coronary artery without angina pectoris Anemia, unspecified Chronic kidney disease, unspecified BASIC METABOLIC PANEL Routine 09/17/2024 8:40 AM EDT Essential (primary) hypertension Atherosclerotic heart disease of [place] coronary artery without angina pectoris Anemia, [...] Resu lt [facility] [address] [place] [address], * (ABNORMAL) Complete blood count (09/17/2024 8:40 AM EDT) [facility] WBC 6.5 4.8 - 10.8 K/mcL [...] [place] LAB H[facility]OLOG[facility] MCH 35.5(H) 27.0 - 32.0 pcg LAB HEMETOLOGY METHOD 09/17/2024 10:30 AM [facility] MCHC 33.5 32.0 - 37.0 g/dL LAB HEMETOLOGY METHOD 09/17[facility]2024 10[facility] RDW 18.7(H) 11.0 - 15.0 % LAB HEMETOLOGY METHOD 09/17/2024 10[facility] Platelets 183 130 - 400 [...] Resu lt [facility] [address] [place] [address], documented in this encounter Visit Diagnoses Diagnosis Essential (primary) hypertension Unspecified essential hypertension Atherosclerotic heart disease of [place] coronary artery without angina pectoris Anemia, unspecified Chronic kidney disease, unspecified documented in this encounter Care Teams Rn Rehab Relationship Specialty Start Date End Date John Avina DO [address] [place] [phone] PCP - General Internal Medicine 06/10/24 documented as of this encounter
--- OUTSIDE RECORDS SUMMARY | 2025-02-09 19:42 | XMS_ITS | Encounter Summary ---
Author Organization [email or web address] [facility] Address [address] [place] [address] Care Team Providers Care Welder Assistant Name Role Phone John Avina DO Primary Care Provider [phone] Encounter Details Date Type Department Care Team (Late st Contact Info) Description 09/14/[address] [facility] - Main Lab [address] [facility] [place] [address] Lincoln Crespo MD [address] [place] [address] Essential (primary) hypertension; Atherosclerotic heart disease of [place] coronary artery without angina pectoris; Anemia, unspecified [...] Essential (primary) hypertension Atherosclerotic heart disease of [place] coronary artery without angina pectoris Anemia, unspecified COMPREHENSIVE METABOLIC PANEL Routine 09/15/2024 7:05 AM EDT Essential (primary) hypertension Atherosclerotic heart disease of [place] coronary artery without angina pectoris Anemia, unspecified documented in this encounter Results * (ABNORMAL) Complete blood count (09/15/2024 7:07 AM EDT) WBC 5.1 4.8 - 10.8 K/mcL LAB HEMETOLOGY METHOD 09/15/2024 12:07 PM EDT [facility] RBC 2.30(L) 3.80 - 4.80 [...] lt [facility] [address] [place] [address], [place] [phone] * (ABNORMAL) Comprehensive metabolic panel (09/15/2024 7:05 [...] lt [facility] [address] [place] [address], documented in this encounter Visit Diagnoses Diagnosis Essential (primary) hypertension Unspecified essential hypertension Atherosclerotic heart disease of [place] coronary artery without angina pectoris Anemia, unspecified documented in this encounter Care Teams Welder Assistant Relationship Specialty Start Date End Date John Avina DO [address] [place] [phone] PCP - General Internal Medicine 06/10/24 documented as of this encounter
== END 2025-02-09 15:06 | disposition home or self-care (01) ==
LOC: HO.PMC 14:37
PROVIDERS: PCP Internal Medicine; Visit Provider Nurse Practitioner Family
DX: M41.9 Scoliosis, unspecified (principal); M54.16 Radiculopathy, lumbar region; M48.061 Spinal stenosis, lumbar region without neurogenic claudication; R07.81 Pleurodynia; M54.9 Dorsalgia, unspecified
CPT/HCPCS: 99214; G2211

== ENCOUNTER → 2025-02-09 14:36 | Outpatient (BNVA) | payer MEDICARE, SELFPAY | PROVIDERS: PCP Internal Medicine; Visit Provider Nurse Practitioner Family | DX: M48.061 Spinal stenosis, lumbar region without neurogenic claudication (principal); M41.9 Scoliosis, unspecified; M54.16 Radiculopathy, lumbar region; M54.9 Dorsalgia, unspecified; R07.81 Pleurodynia | CPT/HCPCS: 99212 ==

== ENCOUNTER 2025-02-10 10:52 | Outpatient (REF) | payer MEDICARE, SELFPAY ==
--- NOTE | ~2025-02-10 | XR_ITS ---
EXAMINATION: XR THORACIC SPINE CLINICAL INFORMATION: M54.9 - Dorsalgia, unspecified COMPARISON: Correlated to CT chest dated October 27, 2024 TECHNIQUE: AP and lateral views FINDINGS: S-shaped curvature of the thoracolumbar spine. Multilevel marginal osteophyte formation and endplate sclerosis involving mostly the lower thoracic and upper lumbar spine with a dextroconvex rotatory component in the upper lumbar spine. Left-sided Port-A-Cath tip ends in the SVC/innominate region. Vascular calcifications, splenic artery and aorta. No lytic or blastic lesions. XR/XR thoracic spine 3V IMPRESSION: Multilevel spondylosis and scoliosis, thoracolumbar spine. Electronically signed by: Harsha Mckeon MD 02/10/2025 11:14 AM EDT
--- NOTE | ~2025-02-10 | XR_ITS ---
EXAMINATION: XR CHEST CLINICAL INFORMATION: R07.81 - Pleurodynia COMPARISON: Previous chest x-rays most recent October [address] most recent October 2024 TECHNIQUE: 2 views of the chest were obtained. FINDINGS: Left jugular port with tip projecting over the proximal SVC. The lungs are clear. No consolidation or evidence of pulmonary edema. No pleural effusion or pneumothorax. Slightly enlarged cardiac silhouette similar to prior exams. Hilar and mediastinal contours are unremarkable. Mild aortic knob calcification. Degenerative changes of the spine and mild scoliosis. Mild degenerative changes of the shoulders. No fracture or bone lesion. XR/XR chest 2V IMPRESSION: No evidence for acute disease in the chest. Slightly enlarged cardiac silhouette similar to previous exams. Electronically signed by: Della Tyler MD 02/10/2025 11:17 AM EDT
== END 2025-02-10 10:53 | disposition home or self-care (01) ==
LOC: HO.HMGCX 10:52
PROVIDERS: PCP Internal Medicine; Visit Provider Nurse Practitioner Family
DX: R07.81 Pleurodynia (principal); M54.9 Dorsalgia, unspecified
CPT/HCPCS: 71046; 72072

== ENCOUNTER → 2025-02-10 10:57 | Outpatient (BNV) | payer MEDICARE, SELFPAY | PROVIDERS: PCP Internal Medicine; Visit Provider Radiology Diagnostic Radiology | DX: R07.81 Pleurodynia (principal) | CPT/HCPCS: 71046; 72072 ==

== ENCOUNTER 2025-02-17 07:51 | Outpatient (REF) | payer MEDICARE, SELFPAY ==
--- OUTSIDE RECORDS SUMMARY | 2025-02-15 14:15 | XMS_ITS | Encounter Summary ---
Author Organization [facility] Address [address] [address] Phone Care Team Providers Care Cashier Name Role Phone Fabrice John Seema CMGREGOR Primary Care Provider Encounter Details Date Type Department Care Team (Latest Contact Info) Description 02/15/2025 2:15 PM EDT Office Visit [facility] [address] [place] [phone] Mejia Soler MD [address] [phone] Chronic kidney disease, stage 4 [...] Salted Snacks such as Crackers Potato chips [place] chips Pretzels Tortilla chips Nuts Popcorn [place] seeds Homemade or low- sodium sauces and [...] Foods such as: TV Dinners Canned raviolis [place] Macaroni & Cheese Spaghetti Frozen prepared foods [...] are 1000 milligrams (mg) in 1gram. For [id number], if your diet prescription is 2 grams [...] Basil: Use with beef, pork, most vegetables. [place]: Use with beef, pork, most vegetables. Suzi: [...] doctor or dietitian beforeusing and salt substitute. [place] and create your own seasoning containing those spices that you like. If you would like to become a volunteer and find out more about what's happening where you live, contact your local [facility] Affiliate. Blood pressure monitoring education: Monitor home [...] No results found for: EGFRAFR eGFR Non-Afr [place]ese Date Value Ref Range Status 06/30/2024 22 [...] 1. Chronic kidney disease, stage 4 (severe) ([facility]) 2. Type 2 diabetes mellitus with diabetic [...] Visit [facility] [address] [place] [address] Mejia Soler MD [address] [facility] [address] [place] [address] Scheduled Orders Name Type Priority [...] osteodystrophy documented in this encounter Care Teams Cashier Relationship Specialty Start Date End Date John Avina DO [address] [place] [address] PCP - General Internal Medicine 10/23/23 documented as of this encounter
--- NOTE | ~2025-02-17 | FL_ITS ---
EXAMINATION: XR BARIUM SWALLOW CLINICAL INFORMATION: Dysphagia. COMPARISON: None available. TECHNIQUE: Routine barium swallow upright barium swallow with thick barium and saltine crackers and thin barium in prone lying position was performed. FINDINGS: Following oral administration of thick barium there is normal propagation bolus from the oral cavity through the pharynx, esophagus into stomach without any evidence of obstruction, narrowing or stricture. No extrinsic compression seen. No laryngeal penetration and aspiration. Following oral administration of barium coated saltine crackers there is normal oral mastication and propagation of solid food from the oral cavity, pharynx, esophagus into stomach. Thin barium was administered as is a changes bolus to clear the esophagus. On placing patient prone lying and oral administration of thin barium there is good distention of the entire esophagus without obstruction, narrowing or stricture. There is no gastroesophageal reflux or hiatal hernia. FLUOROSCOPY TIME: 2 minute 35 seconds DOSE AREA PRODUCT: [id number] uGy-m2 (microgray-meter squared) FL/FL barium swallow IMPRESSION: Unremarkable barium swallow exam. Electronically signed by: Azam Hanley MD 02/17/2025 11:25 AM EDT
--- OUTSIDE RECORDS SUMMARY | 2025-02-17 07:53 | XMS_ITS | Encounter Summary ---
Author Organization [facility] Address [address] [place] [address] Care Team Providers Care Brick Yard Hand Name Role Phone John Avina DO Primary Care Provider [phone] Encounter Details Date Type Department Care Team (Late st Contact Info) Description 06/10/2024 Lab Requisition [facility] - Main Lab [address] [facility] [place] [address] Arianna Iraheta PA [address] [place], [place] [id number] Dysuria Social History Tobacco Use Types Packs/Day [...] 06/12/2024 11:01 AM EST [facility] Comment: [...] ORD ERABLES Final Result [facility] LAB [address] [place] [address], documented in this encounter Visit Diagnoses Diagnosis Dysuria documented in this encounter Care Teams Brick Yard Hand Relationship Specialty Start Date End Date John Avina DO [address] [place] [phone] PCP - General Internal Medicine 06/10/24 documented as of this encounter
--- OUTSIDE RECORDS SUMMARY | 2025-02-17 07:54 | XMS_ITS | Clinical Summary ---
Author Organization [address] Address [address] [place] [address] Phone Care Team Providers Care Knockdown Man Name Role Phone FabriceJohn solares Primary Care Provider Social History Tobacco Use Types Packs/Day Years [...] Essential (primary) hypertension Atherosclerotic heart disease of [place] coronary artery without angina pectoris Anemia, [...] LAB CHEMISTRY METHOD 09/17/2024 11:11 AM EDT [facility] BUN 49(H) 5 - 25 mg/dL LAB CHEMISTRY METHOD 09/17/2024 11:11 AM EDT [facility] Creatinine 1.74(H) 0.50 - 1.10 mg/dL LAB CHEMISTRY METHOD 09/17/2024 11:11 AM EDT [facility] eGFR 30(L) >=60 mL/min/1. 73m2 LAB CHEMISTRY METHOD 09/17/2024 11:11 AM EDT [facility] Comment:Calculation based on the Chronic Kidney Disease Epidemiology Collaboration (CKD-EPI) equation refit without adjustment for race. BUN/Creatinine Ratio 28.2 LAB CHEMISTRY METHOD 09/17/2024 11:11 AM EDT [facility] Calcium 9.3 8.5 - 10.5 mg/dL LAB CHEMISTRY METHOD 09/17/2024 11:11 AM EDT [facility] Blood Venous blood specimen / Unknown Venipuncture / Unknown 09/17/2024 8:40 AM EDT 09/17/2024 10:05 AM EDT [place] Crespo MD LAB BLOOD ORDERABLES Final Resu lt [facility] [address] [place] [address], from Last 3 Months or Most Recently Relevant to Health Maintenance Insurance MEDICARE [facility] MEDICARE Care Teams Knockdown Man Relationship Specialty Start Date End Date John Avina DO [address] [place] [phone] PCP - General Internal Medicine 06/10/24
--- OUTSIDE RECORDS SUMMARY | 2025-02-17 07:54 | XMS_ITS | Encounter Summary ---
Author Organization [facility] Address [address] [place] [phone] Care Team Providers Care Electric Motor Repairer Name Role Phone John Avina DO Primary Care Provider [phone] Encounter Details Date Type Department Care Team (Late st Contact Info) Description 08/12/2024 Lab Requisition [facility] - Main Lab 299 [facility] [place] [address] [place] Crespo MD [address] [place] [address] Essential (primary) hypertension; Atherosclerotic heart disease of [place] coronary artery without angina pectoris; Anemia, unspecified; [...] Essential (primary) hypertension Atherosclerotic heart disease of [place] coronary artery without angina pectoris Anemia, unspecified Chronic kidney disease, unspecified Hypothyroidism, unspecified Hyperlipidemia, unspecified COMPREHENSIVE METABOLIC PANEL Routine 08/12/2024 4:49 AM EDT Essential (primary) hypertension Atherosclerotic heart disease of [place] coronary artery without angina pectoris Anemia, unspecified Chronic kidney disease, unspecified Hypothyroidism, unspecified Hyperlipidemia, unspecified documented in this encounter Results * (ABNORMAL) Comprehensive metabolic panel (08/12/2024 4:49 AM EDT) Sodium 140 133 - 145 mmol/L LAB CHEMISTRY METHOD 08/12/2024 11:43 AM [facility] Potassium 4.4 3.5 - 5.5 mmol/L LAB CHEMISTRY METHOD 08/12/2024 11:43 AM [facility] Chloride 104 96 - 110 mmol/L LAB CHEMISTRY METHOD 08/12/2024 11:43 AM [facility] CO2 30 21 - 32 mmol/L LAB CHEMISTRY METHOD 08/12/2024 11:43 AM [facility] Anion Gap 6 3 - 11 LAB CHEMISTRY METHOD 08/12/2024 11:43 AM [facility] Glucose 81 70 - 100 mg/dL LAB CHEMISTRY METHOD 08/12/2024 11:43 AM [facility] BUN 35(H) 5 - 25 mg/dL LAB CHEMISTRY METHOD 08/12/2024 11:43 AM [facility] Creatinine 1.81(H) 0.50 - 1.10 mg/dL LAB CHEMISTRY METHOD 08/12/2024 11:43 AM [facility] eGFR 29(L) >=60 mL/min/1. 73m2 LAB CHEMISTRY METHOD 08/12/2024 11:43 AM [facility] Comment:Calculation based on the Chronic Kidney Disease Epidemiology Collaboration (CKD-EPI) equation refit without adjustment for race. BUN/Creatinine Ratio 19.3 LAB CHEMISTRY METHOD 08/12/2024 11:43 AM [facility] Calcium 8.3(L) 8.5 - 10.5 mg/dL LAB CHEMISTRY METHOD 08/12/2024 11:43 AM [facility] AST (SGOT) 7(L) 10 - 42 unit/L LAB CHEMISTRY METHOD 08/12/2024 11:43 AM [facility] ALT (SGPT) 7(L) 10 - 60 unit/L LAB CHEMISTRY METHOD 08/12/2024 11:43 AM EDT [facility] Alkaline Phosphatase 65 42 - 121 unit/L LAB CHEMISTRY METHOD 08/12/2024 11:43 AM T [facility] Total Protein 5.5(L) 6.0 - 8.0 g/dL LAB CHEMISTRY METHOD 08/12/2024 11:43 AM [facility] Albumin 2.3(L) 3.2 - 5.0 g/dL LAB CHEMISTRY METHOD 08/12/2024 11:43 AM T [facility] Total Bilirubin 0.5 0.0 - 1.4 mg/dL LAB CHEMISTRY METHOD 08/12/2024 11:43 AM [facility] Blood Venous blood specimen / Unknown Venipuncture / Unknown 08/12/2024 4:49 AM EDT 08/12/2024 10:25 AM EDT [place] Crespo MD LAB BLOOD ORDERABLES Final Resu lt [facility] [address] [place] [address], * (ABNORMAL) Complete blood count (08/12/2024 4:49 AM EDT) WBC 6.8 4.8 - 10.8 K/mcL LAB HEMETOLOGY METHOD 08/12/2024 11:01 AM [facility] RBC 2.20(L) 3.80 - 4.80 M/mcL LAB HEMETOLOGY METHOD 08/12/2024 11:01 AM [facility] Hemoglobin 7.4(L) 11.5 - 16.0 g/dL LAB HEMETOLOGY METHOD 08/12/2024 11:01 AM [facility] Hematocrit 23.3(L) 35.0 - 47.0 % LAB HEMETOLOGY METHOD 08/12/2024 11:01 AM EDT [facility] MCV 108.4(H) 79.0 - 98.0 FL LAB HEMETOLOGY METHOD 08/12/2024 11:01 AM EDT [facility] MCH 34.4(H) 27.0 - 32.0 pcg LAB HEMETOLOGY METHOD 08/12[facility]2024 [facility] MCHC 31.8(L) 32.0 - 37.0 g/dL LAB HEMETOLOGY METHOD 08/12/2024 11:01 AM EDT [facility] RDW 17.7(H) 11.0 - 15.0 % LAB HEMETOLOGY METHOD 08/12/2024 11:[facility] Platelets 203 130 - 400 K/mcL LAB HEMETOLOGY METHOD 08/12/2024 11:01 [facility] MPV 9.8 7.0 - 11.0 FL LAB HEMETOLOGY METHOD 08/12/2024 11:01 [facility] NRBC 0.0 <1.0 % LAB HEMETOLOGY METHOD 08/12/2024 11:01 [facility] NRBC Absolute 0.00 <0.10 K/mcL LAB HEMETOLOGY METHOD 08/12/2024 11:01 AM [facility] Blood Venous blood specimen / Unknown Venipuncture / Unknown 08/12/2024 4:49 AM EDT 08/12/2024 10:25 AM EDT us [place] Crespo MD LAB BLOOD ORDERABLES Final Resu lt [facility] [address] [place] [address], [place] [phone] documented in this encounter Visit Diagnoses Diagnosis Essential (primary) hypertension Unspecified essential hypertension Atherosclerotic heart disease of [place] coronary artery without angina pectoris Anemia, unspecified Chronic kidney disease, unspecified Hypothyroidism, unspecified Hyperlipidemia, unspecified documented in this encounter Care Teams Electric Motor Repairer Relationship Specialty Start Date End Date John Avina DO [address] [place] [phone] PCP - General Internal Medicine 06/10/24 documented as of this encounter
--- OUTSIDE RECORDS SUMMARY | 2025-02-17 07:54 | XMS_ITS | Encounter Summary ---
Author Organization [employer] Address [address] [place] [address] Care Team Providers Care Ring Packer Name Role Phone John Avina DO Primary Care Provider Encounter Details Date Type Department Care Team (Late st Contact Info) Description 09/09/[address] [facility] - Main Lab [address] [facility] [place] [address] [place] Crespo MD [address] [place] [address] Essential (primary) hypertension; Atherosclerotic heart disease of [place] coronary artery without angina pectoris; Anemia, unspecified; [...] Essential (primary) hypertension Atherosclerotic heart disease of [place] coronary artery without angina pectoris Anemia, unspecified Chronic kidney disease, unspecified BASIC METABOLIC PANEL Routine 09/10/2024 6:12 AM EDT Essential (primary) hypertension Atherosclerotic heart disease of [place] coronary artery without angina pectoris Anemia, unspecified Chronic kidney disease, unspecified documented in this encounter Results * (ABNORMAL) Basic metabolic panel (09/10/2024 6:12 AM EDT) Sodium 146(H) 133 - 145 mmol/L LAB CHEMISTRY METHOD 09/10/2024 10:04 AM [facility] Potassium 4.0 3.5 - 5.5 mmol/L LAB CHEMISTRY METHOD 09/10/2024 10:04 AM [facility] Chloride 113(H) 96 - 110 mmol/L LAB CHEMISTRY METHOD 09/10/2024 10:04 AM [facility] CO2 26 21 - 32 mmol/L LAB CHEMISTRY METHOD 09/10/2024 10:04 AM [facility] Anion Gap 7 3 - 11 LAB CHEMISTRY METHOD 09/10/2024 10:04 AM [facility] Glucose 84 70 - 100 mg/dL LAB CHEMISTRY METHOD 09/10/2024 10:04 AM [facility] BUN 44(H) 5 - 25 mg/dL LAB CHEMISTRY METHOD 09/10/2024 10:04 AM [facility] Creatinine 2.03(H) 0.50 - 1.10 mg/dL LAB CHEMISTRY METHOD 09/10/2024 10:04 AM [facility] eGFR 25(L) >=60 mL/min/1. 73m2 LAB CHEMISTRY METHOD 09/10/2024 10:04 AM [facility] Comment:Calculation based on the Chronic Kidney Disease Epidemiology Collaboration (CKD-EPI) equation refit without adjustment for race. BUN/Creatinine Ratio 21.7 LAB CHEMISTRY METHOD 09/10/2024 10:04 AM [facility] Calcium 8.8 8.5 - 10.5 mg/dL LAB CHEMISTRY METHOD 09/10/2024 10:04 AM [facility] Blood Venous blood specimen / Unknown Venipuncture / Unknown 09/10/2024 6:12 AM EDT 09/10/2024 9:16 AM EDT us [place] Crespo MD LAB BLOOD ORDERABLES Final Resu lt [facility] [address] [place] [address], * (ABNORMAL) Complete blood count (09/10/2024 6:12 AM EDT) [facility] WBC 5.2 4.8 - 10.8 K/mcL LAB HEMETOLOGY METHOD 09/10/2024 9:[address] [facility] RBC 2.50(L) 3.80 - 4.80 M/mcL LAB HEMETOLOGY METHOD 09/10/2024 9:[address] [facility] Hemoglobin 8.6(L) 11.5 - 16.0 g/dL LAB HEMETOLOGY METHOD 09/10/2024 9:[address] [facility] Hematocrit 26.4(L) 35.0 - 47.0 % LAB HEMETOLOGY METHOD 09/10/[facility]24 9[facility] MCV 106.5(H) 79.0 - 98.0 FL LAB HEMETOLOGY METHOD 09/10/2024 9:[address] [facility] MCH 34.7(H) 27.0 - 32.0 pcg LAB HEMETOLOGY METHOD 09/10/2024 9:33 [facility] MCHC 32.6 32.0 - 37.0 g/dL LAB HEMETOLOGY METHOD 09/10/2024 9:33 [facility] RDW 19.2(H) 11.0 - 15.0 % LAB HEMETOLOGY METHOD 09/10/2024 9:[address] [facility] Platelets 161 130 - 400 K/mcL LAB HEMETOLOGY METHOD 09/10/2024 9:[address] [facility] MPV 9.3 7.0 - 11.0 FL LAB HEMETOLOGY METHOD 09/10/2024 9:33 AM EDT [facility] NRBC 0.0 <1.0 % LAB HEMETOLOGY METHOD 09/10/2024 9:[address] [facility] NRBC Absolute 0.00 <0.10 K/mcL LAB HEMETOLOGY METHOD 09/10/2024 9:[address] [facility] Blood Venous blood specimen / Unknown Venipuncture / Unknown 09/10/2024 6:12 AM EDT 09/10/2024 9:16 AM EDT us [place] Crespo MD LAB BLOOD ORDERABLES Final Resu lt [facility] [address] [place] [address], documented in this encounter Visit Diagnoses Diagnosis Essential (primary) hypertension Unspecified essential hypertension Atherosclerotic heart disease of [place] coronary artery without angina pectoris Anemia, unspecified Chronic kidney disease, unspecified documented in this encounter Care Teams Ring Packer Relationship Specialty Start Date End Date John Avina DO [address] [place] [phone] PCP - General Internal Medicine 06/10/24 documented as of this encounter
--- OUTSIDE RECORDS SUMMARY | 2025-02-17 07:54 | XMS_ITS | Encounter Summary ---
Author Organization [facility] Address [address] [place] [address] Care Team Providers Care Wind Energy Technician Name Role Phone John Avina DO Primary Care Provider [phone] Encounter Details Date Type Department Care Team (Late st Contact Info) Description 08/15/2024 Lab Requisition [facility] - Main Lab [address] [facility] [place] [address] [place] Crespo MD [address] [place] [address] Other ulcerative colitis with rectal [...] AM EDT) WBC 6.7 4.8 - 10.8 K/[facility] LAB HEMETOLOGY METHOD 08/15/2024 11:29 AM EDT [facility] RBC 3.10(L) 3.80 - 4.80 M/[facility] LAB HEMETOLOGY METHOD 08/15/2024 11:29 AM [facility] Hemoglobin 10.4(L) 11.5 - 16.0 g/dL LAB HEMETOLOGY METHOD 08/15/2024 11:29 AM [facility] Hematocrit 31.4(L) 35.0 - 47.0 % LAB HEMETOLOGY METHOD 08/15/2024 11:29 AM [facility] MCV 100.6(H) 79.0 - 98.0 FL LAB HEMETOLOGY METHOD 08/15/2024 11:29 AM [facility] MCH 33.3(H) 27.0 - 32.0 pcg LAB HEMETOLOGY METHOD 08/15/2024 11:29 AM [facility] MCHC 33.1 32.0 - 37.0 g/dL LAB HEMETOLOGY METHOD 08/15/2024 11:29 AM [facility] RDW 18.6(H) 11.0 - 15.0 % LAB HEMETOLOGY METHOD 08/15/2024 11:29 AM [facility] Platelets 228 130 - 400 K/mcL LAB HEMETOLOGY METHOD 08/15/2024 11:29 AM [facility] MPV 9.4 7.0 - 11.0 FL LAB HEMETOLOGY METHOD 08/15/2024 11:29 AM [facility] NRBC 0.0 <1.0 % LAB HEMETOLOGY METHOD 08/15/2024 11:29 AM [facility] NRBC Absolute 0.00 <0.10 K/mcL LAB HEMETOLOGY METHOD 08/15/2024 11:29 AM [facility] Blood Venous blood specimen / Unknown Venipuncture / Unknown 08/15/2024 9:21 AM EDT 08/15/2024 10:30 AM EDT [place] Crespo MD LAB BLOOD ORDERABLES Final Resu lt [facility] [address] [place] [address], documented in this encounter Visit Diagnoses Diagnosis Other ulcerative colitis with rectal bleeding (CMS/HCC V24, CMS/HCC V28) Anemia in chronic kidney disease (CODE) documented in this encounter Care Teams Wind Energy Technician Relationship Specialty Start Date End Date John Avina DO [address] [place] [phone] PCP - General Internal Medicine 06/10/24 documented as of this encounter
--- OUTSIDE RECORDS SUMMARY | 2025-02-17 07:54 | XMS_ITS | Encounter Summary ---
Author Organization [employer] Address [address] [place] [address] Care Team Providers Care Structural Steel Painter Name Role Phone John Avina DO Primary Care Provider [phone] Encounter Details Date Type Department Care Team (Late st Contact Info) Description 09/02/2024 Lab Requisition [facility] - Main Lab [address] [facility] [place] [address] [place] Crespo MD [address] [place] [address] Essential (primary) hypertension; Atherosclerotic heart disease of [place] coronary artery without angina pectoris; Anemia, unspecified; [...] Essential (primary) hypertension Atherosclerotic heart disease of [place] coronary artery without angina pectoris Anemia, unspecified Chronic kidney disease, unspecified BASIC METABOLIC PANEL Routine 09/03/2024 7:35 AM EDT Essential (primary) hypertension Atherosclerotic heart disease of [place] coronary artery without angina pectoris Anemia, unspecified [...] lt [facility] [address] [place] [address], * (ABNORMAL) Complete blood count (09/03/2024 7:35 AM EDT) [facility] Signature WBC 4.5(L) 4.8 - 10.8 K/mcL LAB HEMETOLOGY METHOD 09/03/2024 8:46 AM EDT [facility] RBC 2.60(L) 3.80 - 4.80 M/mcL LAB HEMETOLOGY METHOD 09/03/2024 8:46 AM EDT [facility] Hemoglobin 8.8(L) 11.5 - 16.0 g/dL LAB HEMETOLOGY METHOD 09/03/2024 8:46 AM [facility] Hematocrit 27.0(L) 35.0 - 47.0 % LAB HEMETOLOGY METHOD 09/03/2024 8:46 AM [facility] MCV 105.1(H) 79.0 - 98.0 FL LAB HEMETOLOGY METHOD 09/03/2024 8:46 AM [facility] MCH 34.2(H) 27.0 - 32.0 pcg LAB HEMETOLOGY METHOD 09/03/2024 8:46 AM [facility] MCHC 32.6 32.0 - 37.0 g/dL LAB HEMETOLOGY METHOD 09/03/2024 8:46 AM [facility] RDW 19.1(H) 11.0 - 15.0 % LAB HEMETOLOGY METHOD 09/03/2024 8:46 AM EDT [facility] Platelets 200 130 - 400 K/mcL LAB HEMETOLOGY METHOD 09/03/2024 8:46 AM EDT [facility] MPV 9.2 7.0 - 11.0 FL LAB HEMETOLOGY METHOD 09/03/2024 8:46 AM EDT [facility] NRBC 0.0 <1.0 % LAB HEMETOLOGY METHOD 09/03/2024 8:46 AM EDT [facility] NRBC Absolute 0.00 <0.10 K/mcL LAB HEMETOLOGY METHOD 09/03/2024 8:46 AM EDT [facility] Blood Venous blood specimen / Unknown Venipuncture / Unknown 09/03/2024 7:35 AM EDT 09/03/2024 8:28 AM EDT us [place] Crespo MD LAB BLOOD ORDERABLES Final Resu lt [facility] [address] [place] [address], documented in this encounter Visit Diagnoses Diagnosis Essential (primary) hypertension Unspecified essential hypertension Atherosclerotic heart disease of [place] coronary artery without angina pectoris Anemia, unspecified Chronic kidney disease, unspecified documented in this encounter Care Teams Structural Steel Painter Relationship Specialty Start Date End Date John Avina DO [address] [place] [phone] PCP - General Internal Medicine 06/10/24 documented as of this encounter
--- OUTSIDE RECORDS SUMMARY | 2025-02-17 07:54 | XMS_ITS | Encounter Summary ---
Author Organization [employer] Address [address] [place] [address] Care Team Providers Care Fretted String Instrument Repairer Name Role Phone John Avina DO Primary Care Provider Encounter Details Date Type Department Care Team (Late st Contact Info) Description 09/18/[address] [facility] - Main Lab [address] [facility] [address] [place] [address] [place] Crespo MD [address] [place] [address] Essential (primary) hypertension; Atherosclerotic heart disease of [place] coronary artery without angina pectoris; Anemia, unspecified [...] Unspecified essential hypertension Atherosclerotic heart disease of [place] coronary artery without angina pectoris Anemia, unspecified documented in this encounter Care Teams Fretted String Instrument Repairer Relationship Specialty Start Date End Date John Avina DO [address] [place] [phone] PCP - General Internal Medicine 06/10/24 documented as of this encounter
--- OUTSIDE RECORDS SUMMARY | 2025-02-17 07:54 | XMS_ITS | Encounter Summary ---
Author Organization [employer] Address [address] [place] [address] Care Team Providers Care Oenologist Name Role Phone John Avina DO Primary Care Provider [phone] Encounter Details Date Type Department Care Team (Late st Contact Info) Description 08/22/[address] [facility] - Main Lab [address] [facility] [place] [address] Lincoln Crespo MD [address] [place] [address] Essential (primary) hypertension; Atherosclerotic heart disease of [place] coronary artery without angina pectoris; Anemia, unspecified [...] Essential (primary) hypertension Atherosclerotic heart disease of [place] coronary artery without angina pectoris Anemia, unspecified COMPREHENSIVE METABOLIC PANEL Routine 08/24/2024 5:46 AM EDT Essential (primary) hypertension Atherosclerotic heart disease of [place] coronary artery without angina pectoris Anemia, unspecified documented in this encounter Results * (ABNORMAL) Comprehensive metabolic panel (08/24/2024 5:46 AM EDT) Sodium 144 133 - 145 mmol/L LAB CHEMISTRY METHOD 08/24/2024 9:15 AM EDT [facility] Potassium 4.0 3.5 - 5.5 mmol/L LAB CHEMISTRY METHOD 08/24/2024 9:15 AM [facility] LAB Chloride 112(H) 96 - 110 mmol/L LAB CHEMISTRY METHOD 08/24/2024 9:15 AM [facility] CO2 23 21 - 32 mmol/L LAB CHEMISTRY METHOD 08/24/2024 9:15 AM [facility] Anion Gap 9 3 - 11 LAB CHEMISTRY METHOD 08/24/2024 9:15 AM [facility] Glucose 82 70 - 100 mg/dL LAB CHEMISTRY METHOD 08/24/2024 9:15 AM [facility] BUN 32(H) 5 - 25 mg/dL LAB CHEMISTRY METHOD 08/24/2024 9:15 AM [facility] Creatinine 1.88(H) 0.50 - 1.10 mg/dL LAB CHEMISTRY METHOD 08/24/2024 9:15 AM [facility] eGFR 27(L) >=60 mL/min/1. 73m2 LAB CHEMISTRY METHOD 08/24/2024 9:15 AM [facility] Comment:Calculation based on the Chronic Kidney Disease Epidemiology Collaboration (CKD-EPI) equation refit without adjustment for race. BUN/Creatinine Ratio 17.0 LAB CHEMISTRY METHOD 08/24/2024 9:15 AM [facility] Calcium 8.8 8.5 - 10.5 mg/dL LAB CHEMISTRY METHOD 08/24/2024 9:15 AM [facility] AST (SGOT) 13 10 - 42 unit/L LAB CHEMISTRY METHOD 08/24/2024 9:15 AM [facility] ALT (SGPT) 17 10 - 60 unit/L LAB CHEMISTRY METHOD 08/24/2024 9:15 AM [facility] Alkaline Phosphatase 69 42 - 121 unit/L LAB CHEMISTRY METHOD 08/24/2024 9:15 AM [facility] Total Protein 5.7(L) 6.0 - 8.0 g/dL LAB CHEMISTRY METHOD 08/24/2024 9:15 AM EDT [facility] LAB Albumin 2.8(L) 3.2 - 5.0 g/dL LAB CHEMISTRY METHOD 08/24/2024 9:15 AM EDT [facility] LAB Total Bilirubin 0.3 0.0 - 1.4 mg/dL LAB CHEMISTRY METHOD 08/24/2024 9:15 AM EDT [facility] LAB Blood Venous blood specimen / Unknown Venipuncture / Unknown 08/24/2024 5:46 AM EDT 08/24/2024 8:26 AM EDT us Lincoln Crespo MD LAB BLOOD ORDERABLES Final Resu lt [facility] LAB [address] [place] [address], [place] [phone] * (ABNORMAL) Complete blood count (08/24/2024 5:46 AM EDT) WBC 6.8 4.8 - 10.8 K/mcL LAB HEMETOLOGY METHOD 08/24/2024 8:45 AM [facility] RBC 2.50(L) 3.80 - 4.80 M/mcL LAB HEMETOLOGY METHOD 08/24/2024 8:45 AM [facility] Hemoglobin 8.6(L) 11.5 - 16.0 g/dL LAB HEMETOLOGY METHOD 08/24/2024 8:45 AM T [facility] LAB Hematocrit 26.2(L) 35.0 - 47.0 % LAB HEMETOLOGY METHOD 08/24/2024 8:45 AM [facility] MCV 103.6(H) 79.0 - 98.0 FL LAB HEMETOLOGY METHOD 08/24/2024 8:45 AM EDT [facility] LAB MCH 34.0(H) 27.0 - 32.0 pcg LAB HEMETOLOGY METHOD 08/24/2024 8:45 AM EDT [facility] LAB MCHC 32.8 32.0 - 37.0 g/dL LAB HEMETOLOGY METHOD 08/24/2024 8:45 AM EDT [facility] LAB RDW 18.7(H) 11.0 - 15.0 % LAB HEMETOLOGY METHOD 08/24/2024 8:45 AM EDT [facility] LAB Platelets 192 130 - 400 K/mcL LAB HEMETOLOGY METHOD 08/24/2024 8:45 AM EDT [facility] LAB MPV 9.3 7.0 - 11.0 FL LAB HEMETOLOGY METHOD 08/24/2024 8:45 AM EDT [facility] LAB NRBC 0.0 <1.0 % LAB HEMETOLOGY METHOD 08/24/2024 8:45 AM EDT [facility] LAB NRBC Absolute 0.00 <0.10 K/mcL LAB HEMETOLOGY METHOD 08/24/2024 8:45 AM EDT [facility] LAB Blood Venous blood specimen / Unknown Venipuncture / Unknown 08/24/2024 5:46 AM EDT 08/24/2024 8:32 AM EDT us Lincoln Crespo MD LAB BLOOD ORDERABLES Final Resu lt [facility] LAB [address] [place] [address], [place] [phone] documented in this encounter Visit Diagnoses Diagnosis Essential (primary) hypertension Unspecified essential hypertension Atherosclerotic heart disease of [place] coronary artery without angina pectoris Anemia, unspecified documented in this encounter Care Teams Oenologist Relationship Specialty Start Date End Date John Avina DO [address] [place] [phone] PCP - General Internal Medicine 06/10/24 documented as of this encounter
--- OUTSIDE RECORDS SUMMARY | 2025-02-17 07:54 | XMS_ITS | Encounter Summary ---
Author Organization [employer] Address [address] [place] [address] Care Team Providers Care Pin Machine Tender Name Role Phone John Avina DO Primary Care Provider [phone] Encounter Details Date Type Department Care Team (Late st Contact Info) Description 08/30/2024 Lab Requisition [facility] - Main Lab 299 [facility] [place] [address] Lincoln Crespo MD [address] [place] [address] Essential (primary) hypertension; Atherosclerotic heart disease of [place] coronary artery without angina pectoris; Anemia, [...] Essential (primary) hypertension Atherosclerotic heart disease of [place] coronary artery without angina pectoris Anemia, unspecified COMPREHENSIVE METABOLIC PANEL Routine 08/31/2024 5:18 AM EDT Essential (primary) hypertension Atherosclerotic heart disease of [place] coronary artery without angina pectoris Anemia, unspecified documented in this encounter Results * (ABNORMAL) Comprehensive metabolic panel (08/31/2024 5:18 AM EDT) Sodium 141 133 - 145 mmol/L LAB CHEMISTRY METHOD 08/31/2024 1:17 PM EDT [facility] Potassium 4.7 3.5 - 5.5 mmol/L [...] LAB CHEMISTRY METHOD 08/31/2024 1:17 PM EDT [facility] LAB Total Protein 6.6 6.0 - 8.0 g/dL LAB CHEMISTRY METHOD 08/31/2024 1:17 PM EDT [facility] LAB Albumin 3.1(L) 3.2 - 5.0 g/dL LAB CHEMISTRY METHOD 08/31/2024 1:17 PM EDT [facility] LAB Total Bilirubin 0.4 0.0 - 1.4 mg/dL LAB CHEMISTRY METHOD 08/31/2024 1:17 PM EDT [facility] LAB Blood Venous blood specimen / Unknown 08/31/2024 5:18 AM EDT 08/31/2024 11:34 AM EDT [facility] LAB - 08/31/2024 1:17 PM EDT Short sample, interpret results with caution us Lincoln Crespo MD LAB BLOOD ORDERABLES Final Resu lt [facility] LAB [address] [place] [address], [place] [phone] * (ABNORMAL) Complete blood count (08/31/2024 5:18 AM EDT) WBC 5.2 4.8 - 10.8 K/mcL LAB HEMETOLOGY METHOD 08/31/2024 1:43 PM EDT [facility] LAB RBC 2.50(L) 3.80 - 4.80 M/mcL LAB HEMETOLOGY METHOD 08/31/2024 1:43 PM EDT [facility] LAB Hemoglobin 8.6(L) 11.5 - 16.0 g/dL LAB HEMETOLOGY METHOD 08/31/2024 1:43 PM EDT [facility] LAB Hematocrit 27.1(L) 35.0 - 47.0 % LAB HEMETOLOGY METHOD 08/31/2024 1:43 PM EDT [facility] LAB MCV 106.7(H) 79.0 - 98.0 FL LAB HEMETOLOGY METHOD 08/31/2024 1:43 PM EDT [facility] LAB MCH 33.9(H) 27.0 - 32.0 pcg LAB HEMETOLOGY METHOD 08/31/2024 1:43 PM EDT [facility] LAB MCHC 31.7(L) 32.0 - 37.0 g/dL LAB HEMETOLOGY METHOD 08/31/2024 1:43 PM EDT [facility] LAB RDW 19.2(H) 11.0 - 15.0 % LAB HEMETOLOGY METHOD 08/31/2024 1:43 PM EDT [facility] LAB Platelets 223 130 - 400 K/mcL LAB HEMETOLOGY METHOD 08/31/2024 1:43 PM EDT [facility] LAB MPV 9.6 7.0 - 11.0 FL LAB HEMETOLOGY METHOD 08/31/2024 1:43 PM EDT [facility] LAB NRBC 0.0 <1.0 % LAB HEMETOLOGY METHOD 08/31/2024 1:43 PM EDT [facility] LAB NRBC Absolute 0.00 <0.10 K/mcL LAB HEMETOLOGY METHOD 08/31/2024 1:43 PM EDT [facility] LAB Blood Venous blood specimen / Unknown 08/31/2024 5:18 AM EDT 08/31/2024 11:31 AM EDT us Lincoln Crespo MD LAB BLOOD ORDERABLES Final Resu lt [facility] LAB [address] [place] [address], documented in this encounter Visit Diagnoses Diagnosis Essential (primary) hypertension Unspecified essential hypertension Atherosclerotic heart disease of [place] coronary artery without angina pectoris Anemia, unspecified documented in this encounter Care Teams Pin Machine Tender Relationship Specialty Start Date End Date John Avina DO [address] [place] [phone] PCP - General Internal Medicine 06/10/24 documented as of this encounter
--- OUTSIDE RECORDS SUMMARY | 2025-02-17 07:54 | XMS_ITS | Encounter Summary ---
Author Organization [employer] Address [address] [place] [address] Care Team Providers Care Supercalender Operator Name Role Phone John Avina DO Primary Care Provider [phone] Encounter Details Date Type Department Care Team (Late st Contact Info) Description 08/26/2024 Lab Requisition [facility] - Main Lab 299 [facility] [place] [address] Lincoln Crespo MD [address] [place] [address] Essential (primary) hypertension; Atherosclerotic heart disease of [place] coronary artery without angina pectoris; Anemia, unspecified; [...] Essential (primary) hypertension Atherosclerotic heart disease of [place] coronary artery without angina pectoris Anemia, unspecified Chronic kidney disease, unspecified BASIC METABOLIC PANEL Routine 08/27/2024 5:31 AM EDT Essential (primary) hypertension Atherosclerotic heart disease of [place] coronary artery without angina pectoris Anemia, unspecified [...] Resu lt [facility] [address] [place] [address], * (ABNORMAL) Complete blood count (08/27/2024 5:31 AM EDT) [facility] WBC 5.4 4.8 - 10.8 K/mcL LAB HEMETOLOGY METHOD [facility]24 [facility] RBC 2.70(L) 3.80 - [...] LAB HEMETOLOGY METHOD 08/27/2024 9:02 AM EDT [facility] LAB NRBC Absolute 0.00 <0.10 K/mcL LAB HEMETOLOGY METHOD 08/27/2024 9:02 AM EDT [facility] LAB Blood Venous blood specimen / Unknown Venipuncture / Unknown 08/27/2024 5:31 AM EDT 08/27/2024 8:51 AM EDT us Lincoln Crespo MD LAB BLOOD ORDERABLES Final Resu lt [facility] LAB [address] [place] [address], documented in this encounter Visit Diagnoses Diagnosis Essential (primary) hypertension Unspecified essential hypertension Atherosclerotic heart disease of [place] coronary artery without angina pectoris Anemia, unspecified Chronic kidney disease, unspecified documented in this encounter Care Teams Supercalender Operator Relationship Specialty Start Date End Date John Avina DO [address] [place] [phone] PCP - General Internal Medicine 06/10/24 documented as of this encounter
--- OUTSIDE RECORDS SUMMARY | 2025-02-17 07:54 | XMS_ITS | Encounter Summary ---
Author Organization [facility] Address [address] [place] [address] Care Team Providers Care Pediatric Genetic Counselor Name Role Phone John Avina DO Primary Care Provider [phone] Encounter Details Date Type Department Care Team (Late st Contact Info) Description 08/17/2024 Lab Requisition [facility] - Main Lab 299 [facility] [place] [address] Lincoln Crespo MD [address] [place] [address] Other ulcerative colitis with rectal [...] AM EDT) WBC 7.1 4.8 - 10.8 K/[facility] LAB HEMETOLOGY METHOD 08/18/2024 11:09 AM EDT [facility] RBC 2.80(L) 3.80 - 4.80 M/[facility] LAB HEMETOLOGY METHOD 08/18/2024 11:09 AM [...] BLOOD ORDERABLES Final Resu lt [facility] [address] [place] [address], documented in this encounter Visit Diagnoses Diagnosis Other ulcerative colitis with rectal bleeding (CMS/HCC V24, CMS/HCC V28) Anemia in chronic kidney disease (CODE) documented in this encounter Care Teams Pediatric Genetic Counselor Relationship Specialty Start Date End Date John Avina DO [address] [place] [phone] PCP - General Internal Medicine 06/10/24 documented as of this encounter
--- OUTSIDE RECORDS SUMMARY | 2025-02-17 07:54 | XMS_ITS | Clinical Summary ---
Author Organization [facility] Address 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 Hypertension 06/04/2016 Encounters Date Type Department Care Team Description 02/15/2025 2:15 PM EDT Office Visit [facility] [address] [place] [address] Mejia Soler MD Chronic kidney disease, stage 4 (severe) (HCC) (Primary Dx); Type 2 diabetes mellitus with diabetic chronic kidney disease, not otherwise specified (HCC); Renal osteodystrophy from Last 3 Months Family History Relation Status Comments Father Mother Social History Tobacco Use Types Packs/Day Years [...] Visit [facility] [address] [place] [address] Mejia Soler MD [address] [facility] [address] [place] [address] Health Maintenance Due Date Last [...] Diagnosis Comments ALT EXT LABS Routine 01/25/2025 from Last 3 Months Results * (ABNORMAL) ALT EXT LABS (01/25/2025) BUN 54(A) 4 - 21 mg/dL Creatinine 1.95(A) 0.50 - 1.10 mg/dL Albumin 4.4 3.5 - 5.0 g/dL Calcium 9.6 8.7 - 10.7 mg/dL Sodium 146 137 - 147 Potassium 3.6 3.4 - 5.5 Chloride 105.0 99.0 - 108.0 Magnesium 2.4 1.6 - 2.4 01/25/2025 [facility] Provider LAB BLOOD ORDERABLES Sarah l Result from Last 3 Months Insurance Medicare [facility] Medicare [facility] Care Teams Computer Operations Manager Relationship Specialty Start Date End Date John Avina DO [address] [place] [address] PCP - General Internal Medicine 10/23/23
--- OUTSIDE RECORDS SUMMARY | 2025-02-17 07:54 | XMS_ITS | Encounter Summary ---
Author Organization [employer] [facility] Address [address] [place] [address] Care Team Providers Care Telegraph Inspector Name Role Phone John Avina DO Primary Care Provider [phone] Encounter Details Date Type Department Care Team (Late st Contact Info) Description 09/14/2024 Lab Requisition [facility] - Main Lab 299 [facility] [place] [address] Lincoln Crespo MD [address] [place] [address] Essential (primary) hypertension; Atherosclerotic heart disease of [place] coronary artery without angina pectoris; Anemia, unspecified [...] Essential (primary) hypertension Atherosclerotic heart disease of [place] coronary artery without angina pectoris Anemia, unspecified COMPREHENSIVE METABOLIC PANEL Routine 09/15/2024 7:05 AM EDT Essential (primary) hypertension Atherosclerotic heart disease of [place] coronary artery without angina pectoris Anemia, unspecified documented in this encounter Results * (ABNORMAL) Complete blood count (09/15/2024 7:07 AM EDT) WBC 5.1 4.8 - 10.8 K/mcL LAB HEMETOLOGY METHOD 09/15/2024 12:07 PM EDT [facility] LAB RBC 2.30(L) 3.80 - 4.80 M/mcL LAB HEMETOLOGY METHOD 09/15/2024 12:07 PM [facility] LAB Hemoglobin 8.0(L) 11.5 - 16.0 g/dL LAB HEMETOLOGY METHOD 09/15/2024 12:07 PM [facility] LAB Hematocrit 24.4(L) 35.0 - 47.0 % LAB HEMETOLOGY METHOD 09/15/2024 12:07 PM [facility] LAB MCV 107.0(H) 79.0 - 98.0 FL LAB HEMETOLOGY METHOD 09/15/2024 12:07 PM [facility] LAB MCH 35.1(H) 27.0 - 32.0 pcg LAB HEMETOLOGY METHOD 09/15/2024 12:07 PM [facility] LAB MCHC 32.8 32.0 - 37.0 g/dL LAB HEMETOLOGY METHOD 09/15/2024 12:07 PM [facility] LAB RDW 19.0(H) 11.0 - 15.0 % LAB HEMETOLOGY METHOD 09/15/2024 12:07 PM [facility] LAB Platelets 141 130 - 400 K/mcL LAB HEMETOLOGY METHOD 09/15/2024 12:07 PM [facility] LAB MPV 9.2 7.0 - 11.0 FL LAB HEMETOLOGY METHOD 09/15/2024 12:07 PM [facility] LAB NRBC 0.0 <1.0 % LAB HEMETOLOGY METHOD 09/15/2024 12:07 PM [facility] LAB NRBC Absolute 0.00 <0.10 K/mcL LAB HEMETOLOGY METHOD 09/15/2024 12:07 PM [facility] LAB Blood Venous blood specimen / Unknown Venipuncture / Unknown 09/15/2024 7:07 AM EDT 09/15/2024 10:49 AM EDT us Lincoln Crespo MD LAB BLOOD ORDERABLES Final Resu lt [facility] LAB [address] [place] [address], [place] [phone] * (ABNORMAL) Comprehensive metabolic panel (09/15/2024 7:05 AM EDT) Sodium 143 133 - 145 mmol/L LAB CHEMISTRY METHOD 09/15/2024 12:43 PM [facility] LAB Potassium 3.6 3.5 - 5.5 mmol/L LAB CHEMISTRY METHOD 09/15/2024 12:43 PM [facility] Chloride 110 96 - 110 mmol/L LAB CHEMISTRY METHOD 09/15/2024 12:43 PM [facility] CO2 22 21 - 32 mmol/L LAB CHEMISTRY METHOD 09/15/2024 12:43 PM [facility] Anion Gap 11 3 - 11 LAB CHEMISTRY METHOD 09/15/2024 12:43 PM [facility] LAB Glucose 90 70 - 100 mg/dL LAB CHEMISTRY METHOD 09/15/2024 12:43 PM [facility] BUN 49(H) 5 - 25 mg/dL LAB CHEMISTRY METHOD 09/15/2024 12:43 PM [facility] Creatinine 1.80(H) 0.50 - 1.10 mg/dL LAB CHEMISTRY METHOD 09/15/2024 12:43 PM [facility] LAB eGFR 29(L) >=60 mL/min/1. 73m2 LAB CHEMISTRY METHOD 09/15/2024 12:43 PM [facility] LAB Comment:Calculation based on the Chronic Kidney Disease Epidemiology Collaboration (CKD-EPI) equation refit without adjustment for race. BUN/Creatinine Ratio 27.2 LAB CHEMISTRY METHOD 09/15/2024 12:43 PM EDT [facility] LAB Calcium 8.9 8.5 - 10.5 mg/dL LAB CHEMISTRY METHOD 09/15/2024 12:43 PM T [facility] LAB AST (SGOT) 6(L) 10 - 42 unit/L LAB CHEMISTRY METHOD 09/15/2024 12:43 PM [facility] ALT (SGPT) 15 10 - 60 unit/L LAB CHEMISTRY METHOD 09/15/2024 12:43 PM T [facility] LAB Alkaline Phosphatase 56 42 - 121 unit/L LAB CHEMISTRY METHOD 09/15/2024 12:43 PM [facility] Total Protein 6.0 6.0 - 8.0 g/dL LAB CHEMISTRY METHOD 09/15/2024 12:43 PM [facility] Albumin 3.0(L) 3.2 - 5.0 g/dL LAB CHEMISTRY METHOD 09/15/2024 12:43 PM [facility] Total Bilirubin 0.5 0.0 - 1.4 mg/dL LAB CHEMISTRY METHOD 09/15/2024 12:43 PM [facility] LAB Blood Venous blood specimen / Unknown Venipuncture / Unknown 09/15/2024 7:05 AM EDT 09/15/2024 10:50 AM EDT us Lincoln Crespo MD LAB BLOOD ORDERABLES Final Resu lt [facility] [address] [place] [address], documented in this encounter Visit Diagnoses Diagnosis Essential (primary) hypertension Unspecified essential hypertension Atherosclerotic heart disease of [place] coronary artery without angina pectoris Anemia, unspecified documented in this encounter Care Teams Telegraph Inspector Relationship Specialty Start Date End Date John Avina DO [address] [place] [phone] PCP - General Internal Medicine 06/10/24 documented as of this encounter
--- OUTSIDE RECORDS SUMMARY | 2025-02-17 07:54 | XMS_ITS | Clinical Summary ---
Author Organization [facility] Address [address] [facility] [address] [place] [address] Phone Care Team Providers Care Event Marketing Specialist Name Role Phone Aniceto Emery MD Primary Care Provider [phone] Juliann Tse MD Unavailable [phone] Henrry Espino MD Unavailable [phone] Allergies Active Allergy Reactions Criticality Noted Date [...] Smoking Tobacco: Former Cigarettes 1 23 1 349 - 7949 Education Answer Date Recorded Are you interested [...] EST) SODIUM 138 135 - 145 mmol/L [facility] LIC# [id number] POTASSIUM 3.8 3.5 - 5.0 mmol/L [facility] LIC# [id number] CHLORIDE 104 98 - 108 mmol/L [facility] LIC# [id number] CO2 27 23 - 32 mmol/L [facility] LIC# [id number] BUN 28(H) 9 - 25 mg/dL [facility] LIC# [id number] CREATININE 1.26 0.7 - 1.3 mg/dL [facility] LIC# [id number] GLUCOSE 143(H) 70 - 100 mg/dL [facility] LIC# [id number] ALBUMIN 4.3 3.7 - 5.4 g/dL [facility] LIC# [id number] TOTAL PROTEIN 7.4 6.0 - 8.0 g/dL [facility] LIC# [id number] CALCIUM 9.8 8.8 - 10.5 mg/dL [facility] LIC# [id number] ALKALINE PHOSPHATASE 82 36 - 118 U/L [facility] LIC# [id number] TOTAL BILIRUBIN 0.5 0.2 - 1.2 mg/dL [facility] LIC# [id number] AST 15 9 - 30 U/L [facility] LIC# [id number] ALT 16 7 - 52 U/L [facility] LIC# [id number] GLOBULIN 3.1 2.3 - 4.2 g/dL [facility] LIC# [id number] EGFR 42 mL/min/1.7 3m2 [facility] LIC# [id number] Comment:Abnormal if <60 mL/m in/1.73m2. If patient is -Wallis[place], multiply the result by 1.21. ANION GAP 7 5 - 17 mmol/L [facility] LIC# [id number] 06/04/2016 4:11 PM EST 06/04/2016 4:19 PM EST Henrry Espino MD LAB BLOOD ORDERABLES Final Result [facility] LIC# [id number] [address] [place] [address] from Last 3 Months or Most Recently Relevant to Health Maintenance Insurance PPO [place] [address] [place] [address] PPO PPO PPO PPO PPO [facility] PPO Advance Directives For more information, please contact: [phone] (9AM - 5PM [facility], Saturday-Saturday) Documents on File Type Date Recorded Patient [employer] Application Developer Expl anation Healthcare Proxy 06/04/2016 3:21 PM HCP Care Teams Event Marketing Specialist Relationship Specialty Start Date End Date Aniceto Emery MD PCP - General Internal Medicine 04/25/16 Henrry Espino MD [address] [place] [address] Multiple Myeloma [facility] [place] [address] [email or web address] PCP - Hematology/Oncology Medical Oncology 06/06/16 Juliann Tse MD [address] [place] [phone] [email or web address] Physician Hematology and Oncology 04/25/16 Additional Source Comments The information contained in this document represents components of the legal health record. It is not the complete legal health record.[facility]
--- OUTSIDE RECORDS SUMMARY | 2025-02-17 07:54 | XMS_ITS | Encounter Summary ---
Author Organization [employer] Address [address] [place] [address] Care Team Providers Care Brick Chimney Builder Name Role Phone John Avina DO Primary Care Provider [phone] Encounter Details Date Type Department Care Team (Late st Contact Info) Description 08/19/2024 Lab Requisition [facility] - Main Lab 299 [facility] [place] [address] Lincoln Crespo MD [address] [place] [address] Essential (primary) hypertension; Atherosclerotic heart [...] mmol/L LAB CHEMISTRY METHOD 08/20/2024 10:17 AM [facility] LAB Potassium 4.1 3.5 - 5.5 mmol/L LAB CHEMISTRY METHOD 08/20/2024 10:17 AM [facility] LAB Chloride 107 96 - 110 mmol/L LAB CHEMISTRY METHOD 08/20/2024 10:17 AM [facility] LAB CO2 25 21 - 32 mmol/L LAB CHEMISTRY METHOD 08/20/2024 10:17 AM [facility] LAB Anion Gap 8 3 - 11 LAB CHEMISTRY METHOD 08/20/2024 10:17 AM [facility] LAB Glucose 100 70 - 100 mg/dL LAB CHEMISTRY METHOD 08/20/2024 10:17 AM [facility] LAB BUN 31(H) 5 - 25 mg/dL LAB CHEMISTRY METHOD 08/20/2024 10:17 AM [facility] LAB Creatinine 1.63(H) 0.50 - 1.10 mg/dL LAB CHEMISTRY METHOD 08/20/2024 10:17 AM [facility] LAB eGFR 32(L) >=60 mL/min/1. 73m2 LAB CHEMISTRY METHOD 08/20/2024 10:17 AM [facility] LAB Comment:Calculation based on the Chronic Kidney Disease Epidemiology Collaboration (CKD-EPI) equation refit without adjustment for race. BUN/Creatinine Ratio 19.0 LAB CHEMISTRY METHOD 08/20/2024 10:17 AM [facility] LAB Calcium 9.2 8.5 - 10.5 mg/dL LAB CHEMISTRY METHOD 08/20/2024 10:17 AM [facility] LAB Blood Venous blood specimen / Unknown Venipuncture / Unknown 08/20/2024 6:56 AM EDT 08/20/2024 9:28 AM EDT us Lincoln Crespo MD LAB BLOOD ORDERABLES Final Resu lt [facility] LAB [address] [place] [address], * (ABNORMAL) Complete blood count (08/20/2024 6:56 AM EDT) [facility] WBC 8.6 4.8 - 10.8 K/mcL LAB HEMETOLOGY METHOD 08/20/2024 9:58 AM [facility] LAB RBC 3.30(L) 3.80 - 4.80 M/mcL LAB HEMETOLOGY METHOD 08/20[facility]24 [facility] Hemoglobin 10.9(L) 11.5 - 16.0 g/dL LAB HEMETOLOGY METHOD 08/20/2024 9:58 AM [facility] LAB Hematocrit 34.1(L) 35.0 - 47.0 % LAB HEMETOLOGY METHOD 08/20/2024 9:58 AM [facility] LAB MCV 102.1(H) 79.0 - 98.0 FL LAB HEMETOLOGY METHOD 08/20/2024 9:58 AM [facility] LAB MCH 32.6(H) 27.0 - 32.0 pcg LAB HEMETOLOGY METHOD 08/20/2024 9:58 AM [facility] LAB MCHC 32.0 32.0 - 37.0 g/dL LAB HEMETOLOGY METHOD 08/20/2024 9:58 AM [facility] LAB RDW 18.5(H) 11.0 - 15.0 % LAB HEMETOLOGY METHOD 08/20/2024 9:58 AM [facility] LAB Platelets 264 130 - 400 K/mcL LAB HEMETOLOGY METHOD 08/20/2024 9:58 AM [facility] LAB MPV 9.0 7.0 - 11.0 FL LAB HEMETOLOGY METHOD 08/20/2024 9:58 AM [facility] [...] [facility] [address] [place] [address], documented in this encounter Visit Diagnoses Diagnosis Essential (primary) hypertension Unspecified essential hypertension Atherosclerotic heart disease of [place] coronary artery without angina pectoris Anemia, unspecified Chronic kidney disease, unspecified documented in this encounter Care Teams Brick Chimney Builder Relationship Specialty Start Date End Date John Avina DO [address] [place] [phone] PCP - General Internal Medicine 06/10/24 documented as of this encounter
--- OUTSIDE RECORDS SUMMARY | 2025-02-17 07:54 | XMS_ITS | Encounter Summary ---
Author Organization [employer] Address [address] [place] [address] Care Team Providers Care Manager Of Financial Name Role Phone John Avina DO Primary Care Provider [phone] Encounter Details Date Type Department Care Team (Late st Contact Info) Description 09/16/2024 Lab Requisition [facility] - Main Lab 299 [facility] [place] [address] Lincoln Crespo MD [address] [place] [address] Essential (primary) hypertension; Atherosclerotic heart disease of [place] coronary artery without angina pectoris; Anemia, unspecified; [...] Essential (primary) hypertension Atherosclerotic heart disease of [place] coronary artery without angina pectoris Anemia, unspecified Chronic kidney disease, unspecified BASIC METABOLIC PANEL Routine 09/17/2024 8:40 AM EDT Essential (primary) hypertension Atherosclerotic heart disease of [place] coronary artery without angina pectoris Anemia, unspecified [...] Resu lt [facility] LAB [address] [place] [address], * (ABNORMAL) Complete blood count (09/17/2024 8:40 AM EDT) [facility] WBC 6.5 4.8 - 10.8 K/mcL LAB HEMETOLOGY METHOD 09/17/2024 10:30 AM EDT [facility] LAB RBC 2.70(L) 3.80 - 4.80 M/mcL LAB HEMETOLOGY METHOD 09/17/2024 10:30 AM EDT [facility] LAB Hemoglobin 9.4(L) 11.5 - 16.0 g/dL LAB HEMETOLOGY METHOD 09/17/2024 10:30 AM [facility] LAB Hematocrit 28.1(L) 35.0 - 47.0 % LAB HEMETOLOGY METHOD 09/17/2024 10:30 AM [facility] LAB MCV 106.0(H) 79.0 - 98.0 FL LAB HEMETOLOGY METHOD 09/17/[facility]24 10[facility] MCH 35.5(H) 27.0 - 32.0 pcg LAB HEMETOLOGY METHOD 09/17/2024 10:30 AM [facility] LAB MCHC 33.5 32.0 - 37.0 g/dL LAB HEMETOLOGY METHOD 09/17/2024 10:30 [facility] RDW 18.7(H) 11.0 - 15.0 % LAB HEMETOLOGY METHOD 09/17/2024 10:30 [facility] Platelets 183 130 - 400 K/mcL LAB HEMETOLOGY METHOD 09/17/2024 10:30 AM [facility] LAB MPV 9.4 7.0 - 11.0 FL LAB HEMETOLOGY METHOD 09/17/2024 10:30 AM EDT [facility] LAB NRBC 0.0 <1.0 % LAB HEMETOLOGY METHOD 09/17/2024 10:30 AM EDT [facility] LAB NRBC Absolute 0.00 <0.10 K/mcL LAB HEMETOLOGY METHOD 09/17/2024 10:30 AM EDT [facility] LAB Blood Venous blood specimen / Unknown Venipuncture / Unknown 09/17/2024 8:40 AM EDT 09/17/2024 10:05 AM EDT us Lincoln Crespo MD LAB BLOOD ORDERABLES Final Resu lt [facility] LAB [address] [place] [address], documented in this encounter Visit Diagnoses Diagnosis Essential (primary) hypertension Unspecified essential hypertension Atherosclerotic heart disease of [place] coronary artery without angina pectoris Anemia, unspecified Chronic kidney disease, unspecified documented in this encounter Care Teams Manager Of Financial Relationship Specialty Start Date End Date John Avina DO [address] [place] [phone] PCP - General Internal Medicine 06/10/24 documented as of this encounter
--- OUTSIDE RECORDS SUMMARY | 2025-02-17 07:54 | XMS_ITS | Encounter Summary ---
Author Organization [facility] Address [address] [place] [address] Care Team Providers Care Learning Support Resource Room Teacher Name Role Phone John Avina DO Primary Care Provider Encounter Details Date Type Department Care Team (Late st Contact Info) Description 08/16/2024 Lab Requisition [facility] - Main Lab 299 [facility] [place] [address] Lincoln Crespo MD [address] [place] [address] Other ulcerative colitis with rectal [...] AM EDT) WBC 7.2 4.8 - 10.8 K/[facility] LAB HEMETOLOGY METHOD 08/16/2024 10:41 AM EDT [facility] RBC 2.90(L) 3.80 - 4.80 M/[facility] LAB HEMETOLOGY METHOD 08/16/2024 10:41 AM [facility] LAB Hemoglobin 9.7(L) 11.5 - 16.0 g/dL LAB HEMETOLOGY METHOD 08/16/2024 10:41 AM [facility] LAB Hematocrit 29.9(L) 35.0 - 47.0 % LAB HEMETOLOGY METHOD 08/16/2024 10:41 AM [facility] LAB MCV 101.7(H) 79.0 - 98.0 FL LAB HEMETOLOGY METHOD 08/16/2024 10:41 AM [facility] LAB MCH 33.0(H) 27.0 - 32.0 pcg LAB HEMETOLOGY METHOD 08/16/2024 10:41 AM [facility] LAB MCHC 32.4 32.0 - 37.0 g/dL LAB HEMETOLOGY METHOD 08/16/2024 10:41 AM [facility] LAB RDW 18.1(H) 11.0 - 15.0 % LAB HEMETOLOGY METHOD 08/16/2024 10:41 AM [facility] LAB Platelets 246 130 - 400 K/mcL LAB HEMETOLOGY METHOD 08/16/2024 10:41 AM [facility] LAB MPV 9.2 7.0 - 11.0 FL LAB HEMETOLOGY METHOD 08/16/2024 10:41 AM [facility] LAB NRBC 0.0 <1.0 % LAB HEMETOLOGY METHOD 08/16/2024 10:41 AM [facility] LAB NRBC Absolute 0.00 <0.10 K/mcL LAB HEMETOLOGY METHOD 08/16/2024 10:41 AM [facility] LAB Blood Venous blood specimen / Unknown Venipuncture / Unknown 08/16/2024 8:48 AM EDT 08/16/2024 10:02 AM EDT Lincoln Crespo MD LAB BLOOD ORDERABLES Final [facility]u [facility] [address] [place] [address], documented in this encounter Visit Diagnoses Diagnosis Other ulcerative colitis with rectal bleeding (CMS/HCC V24, CMS/HCC V28) Anemia in chronic kidney disease (CODE) documented in this encounter Care Teams Learning Support Resource Room Teacher Relationship Specialty Start Date End Date John Avina DO [address] [place] [phone] PCP - General Internal Medicine 06/10/24 documented as of this encounter
--- OUTSIDE RECORDS SUMMARY | 2025-02-17 07:54 | XMS_ITS | Encounter Summary ---
Author Organization [employer] Address [address] [place] [address] Care Team Providers Care Power Reactor Operator Name Role Phone John Avina DO Primary Care Provider [phone] Encounter Details Date Type Department Care Team (Late st Contact Info) Description 09/05/2024 Lab Requisition [facility] - Main Lab [address] [facility] [place] [address] Lincoln Crespo MD [address] [place] [address] Essential (primary) hypertension; Atherosclerotic heart disease of [place] coronary artery without angina pectoris; Anemia, unspecified [...] Essential (primary) hypertension Atherosclerotic heart disease of [place] coronary artery without angina pectoris Anemia, unspecified COMPREHENSIVE METABOLIC PANEL Routine 09/07/2024 5:11 AM EDT Essential (primary) hypertension Atherosclerotic heart disease of [place] coronary artery without angina pectoris Anemia, unspecified documented in this encounter Results * (ABNORMAL) Comprehensive metabolic panel (09/07/2024 5:11 AM EDT) Sodium 144 133 - 145 mmol/L LAB CHEMISTRY METHOD 09/07/2024 2:49 PM EDT [facility] Potassium 3.9 3.5 - 5.5 mmol/L [...] LAB CHEMISTRY METHOD 09/07/2024 2:49 PM EDT [facility] LAB Albumin 3.0(L) 3.2 - 5.0 g/dL LAB CHEMISTRY METHOD 09/07/2024 2:49 PM EDT [facility] LAB Total Bilirubin 0.5 0.0 - 1.4 mg/dL LAB CHEMISTRY METHOD 09/07/2024 2:49 PM EDT [facility] LAB Blood Venous blood specimen / Unknown Venipuncture / Unknown 09/07/2024 5:11 AM EDT 09/07/2024 2:11 PM EDT us Lincoln Crespo MD LAB BLOOD ORDERABLES Final Resu lt [facility] LAB [address] [place] [address], [place] [phone] * (ABNORMAL) Complete blood count (09/07/2024 5:11 AM EDT) WBC 5.1 4.8 - 10.8 K/mcL LAB HEMETOLOGY METHOD 09/07/2024 3:07 PM EDT [facility] LAB RBC 2.40(L) 3.80 - 4.80 M/mcL LAB HEMETOLOGY METHOD 09/07/2024 3:07 PM EDT [facility] LAB Hemoglobin 8.2(L) 11.5 - 16.0 g/dL LAB HEMETOLOGY METHOD 09/07/2024 3:07 PM EDT [facility] LAB Hematocrit 25.9(L) 35.0 - 47.0 % LAB HEMETOLOGY METHOD 09/07/2024 3:07 PM EDT [facility] LAB MCV 107.9(H) 79.0 - 98.0 FL LAB HEMETOLOGY METHOD 09/07/2024 3:07 PM EDT [facility] LAB MCH 34.2(H) 27.0 - 32.0 pcg LAB HEMETOLOGY METHOD 09/07/2024 3:07 PM EDT [facility] LAB MCHC 31.7(L) 32.0 - 37.0 g/dL LAB HEMETOLOGY METHOD 09/07/2024 3:07 PM EDT [facility] LAB RDW 19.3(H) 11.0 - 15.0 % LAB HEMETOLOGY METHOD 09/07/2024 3:07 PM EDT [facility] LAB Platelets 176 130 - 400 K/mcL LAB HEMETOLOGY METHOD 09/07/2024 3:07 PM EDT [facility] LAB MPV 9.0 7.0 - 11.0 FL LAB HEMETOLOGY METHOD 09/07/2024 3:07 PM EDT [facility] LAB NRBC 0.0 <1.0 % LAB HEMETOLOGY METHOD 09/07/2024 3:07 PM EDT [facility] LAB NRBC Absolute 0.00 <0.10 K/mcL LAB HEMETOLOGY METHOD 09/07/2024 3:07 PM EDT [facility] LAB Blood Venous blood specimen / Unknown Venipuncture / Unknown 09/07/2024 5:11 AM EDT 09/07/2024 12:03 PM EDT us Lincoln Crespo MD LAB BLOOD ORDERABLES Final Resu lt [facility] [address] [place] [address], [place] [phone] documented in this encounter Visit Diagnoses Diagnosis Essential (primary) hypertension Unspecified essential hypertension Atherosclerotic heart disease of [place] coronary artery without angina pectoris Anemia, unspecified documented in this encounter Care Teams Power Reactor Operator Relationship Specialty Start Date End Date John Avina DO [address] [place] [phone] PCP - General Internal Medicine 06/10/24 documented as of this encounter
--- OUTSIDE RECORDS SUMMARY | 2025-02-17 07:54 | XMS_ITS | Encounter Summary ---
Author Organization [employer] Address [address] [place] [address] Care Team Providers Care House Calls Nurse Practitioner Name Role Phone John Avina DO Primary Care Provider [phone] Encounter Details Date Type Department Care Team (Late st Contact Info) Description 08/14/2024 Lab Requisition [facility] - Main Lab [address] [facility] [place] [address] Lincoln Crespo MD [address] [place] [address] Essential (primary) hypertension; Atherosclerotic heart disease of [place] coronary artery without angina pectoris; Anemia, unspecified [...] (primary) hypertension Atherosclerotic heart disease of [place] coronary artery without angina pectoris Anemia, unspecified COMPREHENSIVE METABOLIC PANEL Routine 08/17/2024 5:41 AM EDT Essential (primary) hypertension Atherosclerotic heart disease of [place] coronary artery without angina pectoris Anemia, unspecified documented in this encounter Results * (ABNORMAL) Comprehensive metabolic panel (08/17/2024 5:41 AM EDT) Sodium 141 133 - 145 mmol/L LAB CHEMISTRY METHOD 08/17/2024 1:27 PM EDT [facility] Potassium 3.8 3.5 - 5.5 mmol/L LAB CHEMISTRY METHOD 08/17/2024 1:27 PM [facility] LAB Chloride 108 96 - 110 mmol/L LAB CHEMISTRY METHOD 08/17/2024 1:27 PM [facility] LAB CO2 23 21 - 32 mmol/L LAB CHEMISTRY METHOD 08/17/2024 1:27 PM [facility] LAB Anion Gap 10 3 - 11 LAB CHEMISTRY METHOD 08/17/2024 1:27 PM [facility] LAB Glucose 69(L) 70 - 100 mg/dL LAB CHEMISTRY METHOD 08/17/2024 1:27 PM [facility] LAB BUN 34(H) 5 - 25 mg/dL LAB CHEMISTRY METHOD 08/17/2024 1:27 PM [facility] LAB Creatinine 1.53(H) 0.50 - 1.10 mg/dL LAB CHEMISTRY METHOD 08/17/2024 1:27 PM [facility] LAB eGFR 35(L) >=60 mL/min/1. 73m2 LAB CHEMISTRY METHOD 08/17/2024 1:27 PM [facility] LAB Comment:Calculation based on the Chronic Kidney Disease Epidemiology Collaboration (CKD-EPI) equation refit without adjustment for race. BUN/Creatinine Ratio 22.2 LAB CHEMISTRY METHOD 08/17/2024 1:27 PM [facility] LAB Calcium 8.7 8.5 - 10.5 mg/dL LAB CHEMISTRY METHOD 08/17/2024 1:27 PM [facility] LAB AST (SGOT) 9(L) 10 - 42 unit/L LAB CHEMISTRY METHOD 08/17/2024 1:27 PM [facility] LAB ALT (SGPT) 8(L) 10 - 60 unit/L LAB CHEMISTRY METHOD 08/17/2024 1:27 PM [facility] LAB Alkaline Phosphatase 67 42 - 121 unit/L LAB CHEMISTRY METHOD 08/17/2024 1:27 PM [facility] LAB Total Protein 5.5(L) 6.0 - 8.0 g/dL LAB CHEMISTRY METHOD 08/17/2024 1:27 PM EDT [facility] LAB Albumin 2.4(L) 3.2 - 5.0 g/dL LAB CHEMISTRY METHOD 08/17/2024 1:27 PM EDT [facility] LAB Total Bilirubin 0.4 0.0 - 1.4 mg/dL LAB CHEMISTRY METHOD 08/17/2024 1:27 PM EDT [facility] LAB Blood Venous blood specimen / Unknown Venipuncture / Unknown 08/17/2024 5:41 AM EDT 08/17/2024 10:15 AM EDT us Lincoln Crespo MD LAB BLOOD ORDERABLES Final Resu lt [facility] [address] [place] [address], * (ABNORMAL) Complete blood count (08/17/2024 5:41 AM EDT) WBC 7.2 4.8 - 10.8 K/mcL LAB HEMETOLOGY METHOD 08/17/2024 11:28 AM [facility] LAB RBC 2.90(L) 3.80 - 4.80 M/mcL LAB HEMETOLOGY METHOD 08/17/2024 11:28 AM EDT [facility] LAB Hemoglobin 9.6(L) 11.5 - 16.0 g/dL LAB HEMETOLOGY METHOD 08/17/2024 11:28 AM EDT [facility] LAB Hematocrit 29.9(L) 35.0 - 47.0 % LAB HEMETOLOGY METHOD 08/17[facility]2024 11:[facility] MCV 103.5(H) 79.0 - 98.0 FL LAB HEMETOLOGY METHOD 08/17/2024 11:28 AM EDT [facility] LAB MCH 33.2(H) 27.0 - 32.0 pcg LAB HEMETOLOGY METHOD 08/17/2024 11:28 AM [facility] LAB MCHC 32.1 32.0 - 37.0 g/dL LAB HEMETOLOGY METHOD 08/17/2024 11:28 AM [facility] LAB RDW 18.2(H) 11.0 - 15.0 % LAB HEMETOLOGY METHOD 08/17/2024 11:28 AM [facility] LAB Platelets 215 130 - 400 K/mcL LAB HEMETOLOGY METHOD 08/17/2024 11:28 AM [facility] LAB MPV 9.2 7.0 - 11.0 FL LAB HEMETOLOGY METHOD 08/17/2024 11:28 AM [facility] LAB NRBC 0.0 <1.0 % LAB HEMETOLOGY METHOD 08/17/2024 11:28 AM [facility] LAB NRBC Absolute 0.00 <0.10 K/mcL LAB HEMETOLOGY METHOD 08/17/2024 11:28 AM [facility] LAB Blood Venous blood specimen / Unknown Venipuncture / Unknown 08/17/2024 5:41 AM EDT 08/17/2024 10:15 AM EDT us Lincoln Crespo MD LAB BLOOD ORDERABLES Final Resu lt [facility] [address] [place] [address], documented in this encounter Visit Diagnoses Diagnosis Essential (primary) hypertension Unspecified essential hypertension Atherosclerotic heart disease of [place] coronary artery without angina pectoris Anemia, unspecified documented in this encounter Care Teams House Calls Nurse Practitioner Relationship Specialty Start Date End Date John Avina DO [address] [place] [phone] PCP - General Internal Medicine 06/10/24 documented as of this encounter
== END 2025-02-17 07:52 | disposition home or self-care (01) ==
LOC: HO.XRAY 07:51
PROVIDERS: PCP Internal Medicine; Visit Provider Physician Assistant Medical
DX: R13.10 Dysphagia, unspecified (principal)
CPT/HCPCS: 74220

== ENCOUNTER → 2025-02-17 07:53 | Outpatient (BNV) | payer MEDICARE, SELFPAY | PROVIDERS: PCP Internal Medicine; Visit Provider Radiology Diagnostic Radiology | DX: R13.10 Dysphagia, unspecified (principal) | CPT/HCPCS: 74221 ==

== ENCOUNTER 2025-02-18 13:59 | Outpatient (AMB) | payer MEDICARE, SELFPAY ==
--- OUTSIDE RECORDS SUMMARY | 2025-02-15 14:15 | XMS_ITS | Encounter Summary ---
Author Organization [facility] Address [address] [address] Phone Care Team Providers Care Industrial Green Systems Designer Name Role Phone Fabrice John Seema MCGREGOR Primary Care Provider Encounter Details Date Type Department Care Team (Latest Contact Info) Description 02/15/2025 2:15 PM EDT [facility] [address] [place] [phone] Mejia Soler MD [address] [address] Chronic kidney disease, stage 4 (severe) (HCC) (Primary Dx); Type 2 diabetes mellitus with diabetic chronic kidney disease, not otherwise specified (HCC); Renal osteodystrophy Social History Tobacco Use Types Packs/Day Years Used Date Smoking Tobacco: Never Smokeless Tobacco: Never Tobacco Cessation:Counseling Given: Not Answered Alcohol Use Standard Drinks/Week Comments Never 0 (1 standard drink = 0.6 oz pur e alcohol) Comments Unknown Sex and Gender Information Value Date Recorded Sex Assigned at Not on file Legal Sex Female 4:53 PM EST Gender Identity Not on file Sexual Orientation Not on file documented as of this encounter Last Filed Vital Signs Vital Sign Reading Time Taken Comments Blood Pressure 114/60 02/15/2025 2:23 PM EDT Pulse 59 02/15/2025 2:23 PM EDT Temperature - - Respiratory Rate - - Oxygen Saturation 98% 02/15/2025 2:23 PM EDT Inhaled Oxygen Concentration - - Weight 54.9 kg (121 lb) 02/15/2025 2:23 PM EDT Height - - Body Mass Index - - documented in this encounter Patient Instructions * Patient Instructions* Mejia Soler MD - 02/15/2025 2:15 PM EDT No NSAIDS - Do not take non-steroidal anti-inflammatory medications (NSAIDS) such as Ibuprofen (Advil, Motrin, etc), Naproxen (Aleve, etc), Celecoxib (Celebrex) or Ketoprofen. These common arthritis medications can cause permanent kidney damage or worsen your kidney damage. For mild occasional pain, Acetaminophen (Tylenol, etc) is safe for your kidneys. Sodium and Your CKD Diet: How to Spice Up Your Cooking What is sodium? Sodium is a mineral found naturally in foods and is the major part of table salt. What are the effects of eating too much sodium? When your kidneys are not healthy, extra sodium and fluid build up in your body. This can cause swollen ankles, puffiness, a rise in blood pressure, shortness of breath, and/or fluid around your heart and lungs. See the following table for suggestions on how to reduce sodium in your diet. LIMIT THE [AMOUNT OF... FOOD TO LIMIT BECAUSE OF THEIR HIGH SODIUM CONTENT ACCEPTABLE SUBSTITUTES SALT & SALT SEASONINGS Table salt Seasoning salt Garlic salt Onion salt Celery salt Lemon pepper Lite salt Meat tenderizer Bouillon cubes Flavor enhancers Fresh garlic, fresh onion, garlic powder, onion powder, black [pepper, lemon juice, low-sodium/salt-free seasoning blends, vinegar SALTY FOODS Barbecue sauce Steak sauce Soy sauce Teriaky sauce Oyster sauce Salted Snacks such as Crackers Potato chips [place] chips Pretzels Tortilla chips Nuts Popcorn [place]ountain seeds Homemade or low- sodium sauces and salad dressings; Vinegar, dry mustard, unsalted popcorn, pretzels, tortilla or corn chips Cured Foods Ham Salt pork [place] Sauerkraut Pickles, pickle relish Lox & Griffith Olives Fresh beef, veal, pork, poultry, fish, eggs [place] MEATS Hot Dogs Cold cuts, deli meats Pastrami Sausage Corned beef Spam Low-salt deli meats PROCESSED FOODS Buttermilk Cheese Canned: Soups Tomato products Vegetable juices Canned vegetables Convenience Foods such as: TV Dinners Canned raviolis [place] Macaroni & Cheese Spaghetti Frozen prepared foods Fast foods Natural cheese (1-2 oz Per week) Homemade or ashanti,1- sodium soups, canned food without added salt Homemade casseroles without added salt, made with fresh or raw vegetables, fresh meat, marnie, pasta, or unsalted canned vegetables Some salt or sodium is needed for body water balance. But when your kidneys lose the ability to control sodium and water balance, you may experience the following: thirst fluid gain high blood pressure discomfort during dialysis By using less sodium in your diet, you can control these problems. Hints to keep your sodium intake down Cook with herbs and spices instead of salt. (Refer to Spice Up Your Cooking section for further suggestions.) Read food labels and choose those foods low in sodium. Avoid salt substitutes and specialty low-sodium foods made with salt substitutes because they are high in potassium. When eating out, ask for meat or fish without salt. Ask for gravy or sauce on the side; these may contain large amounts of salt and should be used in small amounts . Limit use of canned, processed and frozen foods. Some information about reading labels Understanding the terms: Sodium Free - Only a trivial amount of sodium per serving. Very Low Sodium - 35 mg or less per serving. Low Sodium - 140 mg or less per serving. Reduced Sodium - Foods in which the level of sodium is reduced by 25%. Light or Lite in Sodium - Foods in which the sodium is reduced by at least 50% . Simple rule of thumb : If salt is listed in the first five ingredients, the item is probably too high in sodium to use. All food labels now have milligrams (mg) of sodium listed. Follow these steps when reading the sodiwn information on the label: 1. Know how much sodium you are allowed each day. Remember that there are 1000 milligrams (mg) in 1gram. For [id number], if your diet prescription is 2 grams of sodium , your limit is 2000 milligrams per day. Consider the sodium value or other food to be eaten during the day. 2. Look at the package label. Check the serving size. Nutrition values are expressed per lizbet g. How does this compare to your total daily allowance? If the sodium level is 500 mg or more per serving, the item is not a good choice. 3. Compare labels of similar products. Select the lowest sodium level for the same serving size. How to Spice Up Your Cooking Giving up salt does not mean giving up flavor. Learn to season your food with herbs and spices. Be creative and experiment for a new and exciting flavor. What kinds of spices and herbs should I use instead of salt to add flavor? Try the following spices with the foods listed. Allspice: Use with beef, fish, beets, cabbage, canots, peas, fruit. Basil: Use with beef, pork, most vegetables. [place]: Use with beef, pork, most vegetables. Suzi: Use with beef, pork, green beans, cauliflower, cabbage, beets, asparagus, and in dips and marinades. Cardamom: Use with fruit and in baked goods. Crouch: Use with beef, chicken, pork, fish, green beans, carrots and in marinades. Dill: Use with beef, chicken, green beans, cabbage, carrots, peas and in dips. Ysabel: Use with beef, chicken, pork, green beans, cauliflower and eggplant. Marjoram: Use with beef, chicken, pork, green beans, cauliflower and eggplant. Cle[place]: Use with chicken, pork, cauliflower, peas and in marinades. Thyme: Use with beef, chicken, pork, fish, green beans, beets and carrots. Mandeep: Use with chicken, pork, eggplant and in dressing. Tarragon: Use with fish, chicken, asparagus, beets, cabbage, cauliflower and in marinades. Tips for cooking with herbs and spices Purchase spices and herbs in small amounts . When they sit on the shelf for years they lose their flavor. Use no more than ?? teaspoon of dried spice (?? of fresh) per pound of meat. Add ground spices to food about 15 minutes before the end of the cooking period. Add whole spices to food at least one hour before the end of the cooking period. Combine herbs with oil or butter, set for 30 minutes to bring out their flavor, then brush on foodswhile they cook, or brush meat with oil and sprinkle herbs one hour before coolcing. Crush dried herbs before adding to foods. Can I use salt substitutes? Caution! If you are told to limit potassium in your diet, be very cautious about using salt substitutes because most of them contain some form of potassium. Check with your doctor or dietitian beforeusing and salt substitute. [place] and create your own seasoning containing those spices that you like. If you would like to become a volunteer and find out more about what's happening where you live, contact your local [facility] Affiliate. Blood pressure monitoring education: Monitor home blood pressure values after sitting for 5 minutes with back and arm support. Keep a log. Bring your log and blood pressure cuff to your next visit. documented in this encounter Progress Notes * Mejia Soler MD - 02/15/2025 2:15 PM EDT Images from the original note were not included. Patient Name: Tonia Hernandez, Floresita Date of : 1945, 79 y.o. Date: 02/15/25 [] New Patient [x] Established Patient [] New Hospital Follow Up [] Established Hospital Follow Up [] Telemed Visit [] H&P Referring MD: No primary care provider on file. PCP: John Avina DO Reason For Visit: CKD 4, Anemia, Kidney Stones, H/O Myeloma Tonia Hernandez is a 79 y.o. female seen today as in f/u re CKD with Scr 1.6 to 2.0 range on backdrop of multiple medical problems including: H/O MDS w refractory anemia xfusion dependent, Kidney Stones, HFrEF, and DM Since last seen she has again required several xfusions and has appt with Dr Atkinson ( [facility] Heme/Onc) for 2nd opinion re: refractory anemia. 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 and since then she has had a total of3 more BM Bx with the last one c/w MDS and no evid of Myeloma Card: ( Nahomi) h/o HFrEF and maintained on Bumex 2 mg qd at this time with cont adj per CARDs Recurrent Kidney Stones: ( [facility]) with multi stones over the years requiring urrol interventions--none recently PMH Anemia CAD (coronary artery disease) Cardiomyopathy Cervix prolapsed into vagina CHF (congestive heart failure) Chronic anemia Diabetes mellitus Diverticulosis GERD (gastroesophageal reflux disease) HFrEF (heart failure with reduced ejection fraction) History of blood transfusion Onset Date: ~02/01/23 HTN (hypertension) Hyperglycemia Hypoparathyroidism Irritable bowel syndrome Nephrolithiasis Normal colonoscopy Papillary thyroid carcinoma Polymyalgia rheumatica Pulmonary emboli Type 2 diabetes mellitus The following portions of the patient's chart were reviewed in this encounter and updated as appropriate: Constitutional: Negative for chills and fever. HENT: Negative for congestion, ear pain, hearing loss and sore throat. Eyes: Negative for pain and discharge. Respiratory: Positive for shortness of breath. Negative for cough and wheezing. Cardiovascular: Positive for leg swelling. Negative for chest pain and palpitations. Gastrointestinal: Negative for abdominal pain, blood in stool, constipation, diarrhea, nausea and vomiting. Genitourinary: Negative for dysuria, frequency, hematuria and urgency. Musculoskeletal: Positive for back pain, falls and joint pain. Negative for myalgias and neck pain. Skin: Negative for rash. Neurological: Negative for dizziness, tremors and headaches. Endo/Heme/Allergies: Negative for polydipsia. Does not bruise/bleed easily. Full 13 point review of systems unremarkable except as noted above. Past Medical History: Diagnosis Date Anemia Chronic kidney disease stage 4 (HCC) Hypertension Hypothyroidism Type 2 diabetes mellitus (HCC) No past surgical history on file. Social History Tobacco Use Smoking status: Never Smokeless tobacco: Never Substance Use Topics Alcohol use: Never No family history on file. Current Outpatient Medications Medication Sig Dispense Refill allopurinol (ZYLOPRIM) 300 MG tablet 1 (one) time each day bumetanide (BUMEX) 1 MG tablet carvedilol (COREG) 3.125 MG tablet Take 6.25 mg by mouth carvedilol (COREG) 6.25 MG tablet 2 (two) times a day folic acid (FOLVITE) 1 MG tablet Take 1 mg by mouth hydrALAZINE 25 MG tablet levothyroxine (SYNTHROID, LEVOTHROID) 75 MCG tablet Take 75 mcg by mouth every morning rosuvastatin (CRESTOR) 20 MG tablet Rosuvastatin Calcium gabapentin (NEURONTIN) 300 MG capsule 1 capsule 1 (one) time each day (Patient not taking: Reportedon 02/15/2025) No current facility-administered medications for this visit. Allergies Allergen Reactions Diphenhydramine IV benadryl causes significant delirium. PO tablet okay per patient Prednisone Other (see comments) Listed in past medical records as an existing allergy, but patient reported 05/28/16 she believes shewas administered Decadron recently without issue. Clarification/confirmation needed re: same. Esomeprazole Other (see comments) and Palpitations Other Reaction(s): heart palpitations Chest pain Omeprazole Other (see comments) and Palpitations Other Reaction(s): heart palpitations Chest pain Objective: Vitals: 02/15/25 1423 BP: 114/60 Pulse: 59 SpO2: 98% Weight: 121 lb (54.9 kg) 116/70 Vitals reviewed. Constitutional: She does not appear ill. No distress. Eyes: Conjunctivae are normal. Right eye exhibits no discharge. Left eye exhibits no discharge. No scleral icterus. Neck: No thyroid mass and no thyromegaly present. Cardiovascular: Normal rate and regular rhythm. Exam reveals no friction rub. No murmur heard.She exhibits no edema. Pulmonary/Chest: Effort normal and breath sounds normal. No respiratory distress. She has no wheezes. She has no rales. Abdominal: Soft. There is no abdominal tenderness. No hernia. Musculoskeletal: Normal range of motion. She exhibits no deformity. Skin: Skin is warm and dry. No rash noted. She is not diaphoretic. No erythema. Psychiatric: She has a normal mood and affect. Her behavior is normal. Judgment normal. No results found for: EGFRAFR eGFR Non-Afr [place] Date Value Ref Range Status 06/30/2024 22 Final Chemistry Lab Units 01/25/25 0000 09/17/24 0840 09/15/24 0705 09/10/24 0612 09/07/24 0511 09/03/24 0735 08/31/24 0518 08/27/24 0531 08/24/24 0546 08/20/24 0656 08/17/24 0541 08/12/24 0449 08/12/24 0449 07/15/2407/01/2406/30/2407/18/2307/18/23 0000 CREATININE mg/dL 1.95* 1.74* 1.8* 2.03* 1.93* 1.72* 1.99* < > 1.88* < > 1.53* < >1.81* 23.8 1.81* 2.19* -- 1.50* BUN mg/dL 54* 49* 49* 44* 48* 48* 49* < > 32* < > 34* < > 35* 26 28* 36* -- 23* BUN / CREAT RATIO -- 28.2 27.2 21.7 24.9 27.9 24.6 < > 17 < > 22.2 < > 19.3 -- ---- -- -- EGFRNAFR -- -- -- -- -- -- -- -- -- -- -- -- -- -- -- 22 -- 35 GLUCOSE mg/dL -- 103* 90 84 77 90 67* < > 82 < > 69* < > 81 120 -- -- -- 201* POTASSIUM 3.6 4 3.6 4 3.9 4 4.7 < > 4 < > 3.8 < > 4.4 3.8 3.4 2.9* -- 3.2* SODIUM 146 141 143 146* 144 142 141 < > 144 < > 141 < > 140 144 142 141 -- 144 CO2 mmol/L -- 24 22 26 23 22 15* < > 23 < > 23 < > 30 29 -- -- -- -- CHLORIDE 105.0 109 110 113* 109 112* 110 < > 112* < > 108 < > 104 106 111.0* 109.0* < > -- ALBUMIN g/dL 4.4 -- 3* -- 3* -- 3.1* -- 2.8* -- 2.4* < > 2.3* 3.6 -- -- -- -- BILIRUBIN TOTAL mg/dL -- -- 0.5 -- 0.5 -- 0.4 -- 0.3 -- 0.4 -- 0.5 0.40 -- -- -- -- AST unit/L -- -- 6* -- 6* -- 14 -- 13 -- 9* -- 7* 17 -- -- -- -- ALT U/L -- -- -- -- -- -- -- -- -- -- -- -- -- 9 -- -- -- -- < > = values in this interval not displayed. Bone Mineral Lab Units 01/25/25 0000 09/17/24 0840 09/15/24 0705 09/10/24 0612 09/07/24 0511 09/03/24 0735 08/31/24 0518 08/27/24 0531 08/24/24 0546 08/20/24 0656 08/17/24 0541 08/12/24 0449 07/15/24 0000 07/01/24 0000 CALCIUM mg/dL 9.6 9.3 8.9 8.8 8.9 9.3 9.1 < > 8.8 < > 8.7 8.3* < > 8.0* ALK PHOS unit/L -- -- 56 -- 61 -- 70 -- 69 -- 67 65 < > -- MAGNESIUM 2.4 -- -- -- -- -- -- -- -- -- -- -- -- -- < > = values in this interval not displayed. CBC Lab Units 07/01/24 0000 06/30/24 0000 07/18/23 0000 WBC AUTO 10*3/ML 10.3* 11.9* 6.0 HEMATOCRIT 26.6* 27.5* 22.8* HEMOGLOBIN 9.0* 9.4* 7.6* PLATELETS AUTO 10*3/UL 158 154 173 No lab exists for component: SPECGRAV , GLUCOSEUR , BILIRUBINUR , RBCUR , UPROTEIN , LEUKOCYTESUR , NITRITE PLAN: Assessment & Plan 1. Chronic kidney disease, stage 4 (severe) ([facility]) 2. Type 2 diabetes mellitus with diabetic chronic kidney disease, not otherwise specified (HCC) 3. Renal osteodystrophy 79 Y/O F CKD 4 H/O MEYLOMA MDS XFUSIION DEP ANEMIA HFrEF T2DM H/O KIDNEY STONES CKD 4: adv CKD most c/w mult factors incluidng DM/HTN Myeloma Kidney NSAIDs and H/O Kidney Stones Unfortuanltey can not add SGKT2i d/t recurrent UTIs. 2. Anemia Xfusion dep; ques Fe def playing a role; need to d/w Heme/Onc if indeed she was unresponsive to MIK 3. H/O kidney Stone: obtain rec from [facility] and imaging studies 4. Metabolic Bone Disease of CKD: cont to track CA, Phos, HCO3, PTH and vit D levels and treat accordingly PLAN; cont current meds, avoid NSAIDs; avoid metformin given risk of Lactic acidosis given her low GFR; avoid SGLT2i d/t prior infections; and poss RASi in the future if BP could tolerate Cont support w Xfusions as needed Orders Placed This Encounter PTH, Intact Renal Function Panel Urinalysis with microscopic Urine Albumin / Creatinine Ratio Protein, Total, Random Urine w/Creatinine (Protein/Creat Ratio) Vitamin D 25 Hydroxy CBC Phosphorus Magnesium Albumin Calcium Return in about 4 months (around 06/18/2025). 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 osteodystrophy Expected: 02/15/2025, Expires: 03/18/2026 Renal Function Panel Lab Routine Chronic kidney disease, stage 4 (severe) (HCC) Type 2 diabetes mellitus with diabetic chronic kidney disease, 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 osteodystrophy Expected: 02/15/2025, Expires: 03/18/2026 Urinalysis with microscopic Lab Routine Chronic kidney disease, stage 4 (severe) (HCC) Type 2 diabetes mellitus with diabetic chronic kidney disease, 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 osteodystrophy Expected: 02/15/2025, Expires: 03/18/2026 Urine Albumin / Creatinine Ratio Lab Routine Chronic kidney disease, stage 4 (severe) (HCC) Type 2 diabetes mellitus with diabetic chronic kidney disease, 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 osteodystrophy Expected: 02/15/2025, Expires: 03/18/2026 Protein, Total, Random Urine w/Creatinine (Protein/Creat Ratio) Lab Routine Chronic kidney disease, stage 4 (severe) (HCC) Type 2 diabetes mellitus with diabetic chronic kidney disease, 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 osteodystrophy Expected: 02/15/2025, Expires: 03/18/2026 Vitamin D 25 Hydroxy Lab Routine Chronic kidney disease, stage 4 (severe) (HCC) Type 2 diabetes mellitus with diabetic chronic kidney disease, 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 osteodystrophy Expected: 02/15/2025, Expires: 03/18/2026 CBC Lab Routine Chronic kidney disease, stage 4 (severe) (HCC) Type 2 diabetes mellitus with diabetic chronic kidney disease, 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 osteodystrophy Expected: 02/15/2025, Expires: 03/18/2026 Phosphorus Lab Routine Chronic kidney disease, stage 4 (severe) (HCC) Type 2 diabetes mellitus with diabetic chronic kidney disease, 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 osteodystrophy Expected: 02/15/2025, Expires: 03/18/2026 Magnesium Lab Routine Chronic kidney disease, stage 4 (severe) (HCC) Type 2 diabetes mellitus with diabetic chronic kidney disease, 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 osteodystrophy Expected: 02/15/2025, Expires: 03/18/2026 Albumin Lab Routine Chronic kidney disease, stage 4 (severe) (HCC) Type 2 diabetes mellitus with diabetic chronic kidney disease, 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 osteodystrophy Expected: 02/15/2025, Expires: 03/18/2026 Calcium Lab Routine Chronic kidney disease, stage 4 (severe) (HCC) Type 2 diabetes mellitus with diabetic chronic kidney disease, 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 osteodystrophy Expected: 02/15/2025, Expires: 03/18/2026 documented as of this encounter Procedures Procedure Name Priority Date/Time Associated Diagnosis Comments ALT EXT LABS Routine 01/25/2025 documented in this encounter Results * (ABNORMAL) ALT EXT LABS (01/25/2025) BUN 54(A) 4 - 21 mg/dL Creatinine 1.95(A) 0.50 - 1.10 mg/dL Albumin 4.4 3.5 - 5.0 g/dL Calcium 9.6 8.7 - 10.7 mg/dL Sodium 146 137 - 147 Potassium 3.6 3.4 - 5.5 Chloride 105.0 99.0 - 108.0 Magnesium 2.4 1.6 - 2.4 01/25/2025 Historical Provider LAB BLOOD ORDERABLES Sarah l Result documented in this encounter Visit Diagnoses Diagnosis Chronic kidney disease, stage 4 (severe) (HCC)- Primary Type 2 diabetes mellitus with diabetic chronic kidney disease, 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
[2025-02-18 14:41] VITALS: BP 120/74; PULSE 80; BMI 24.6
--- NOTE | 2025-02-18 14:41 | MHC.OFFVIS ---
Vital Signs 02/18/25 14:41 Height 4 ft 11 in Weight 122 lb BMI 24.6 BP 120/74 Blood Pressure Location Lt brachial Position Sitting Pulse 80 Intake Visit Reasons: 3 mth f/up Intake Note: 3 month follow-up c/o some sob at night Rough And Trueing Machine Operator Required: No Allergies diphenhydramine (From Benadryl) Allergy (Intermediate, Verified 02/09/25 14:47) Dizziness esomeprazole (From NEXIUM) Allergy (Intermediate, Verified 02/09/25 14:47) CHEST PAIN omeprazole (From PRILOSEC) Allergy (Intermediate, Verified 02/09/25 14:47) CHEST PAIN Medication List - Last Reconciled 02/18/25 by Helio Comer MD [acetaminophen 1,000 mg PO DAILY PRN] allopurinol 300 mg PO DAILY ascorbic acid (vitamin C) (Vitamin C) 500 mg PO DAILY biotin 1 mg PO DAILY bumetanide 1 mg PO DAILY 90 days calcium carbonate (Calcium 600) 600 mg PO DAILY carvedilol 6.25 mg PO BID cholecalciferol (vitamin D3) (Vitamin D3) 50 mcg PO DAILY clopidogrel 75 mg PO DAILY cranberry 500 mg PO DAILY cyanocobalamin (vitamin B-12) 5,000 mcg PO DAILY d-mannose 500 mg PO DAILY exemestane 25 mg PO DAILY folic acid 1 mg PO DAILY hydralazine 25 mg See Protocol PO BID levothyroxine 100 mcg PO 4XW loratadine (Claritin) 10 mg PO DAILY rosuvastatin 20 mg PO DAILY vitamin E (dl, acetate) 450 mg PO DAILY HPI Comments Details: Tonia comes for follow-up visit after recent echocardiogram shows worsening mitral regurgitation which Mibi related to LV pathology with underlying wall motion abnormality. She has been also getting increasing symptoms of shortness of breath for which she has to take PRN bumetanide therapy. She says she frequently about 2 to 3 times a week gets short of breath at nighttime. She also takes bumetanide additionally on other days of the week. Her renal functions have remained stable. She is not significantly anemic. She denies any chest pain. She has been taking Plavix regularly. She had also has been taking other cardiac meds including carvedilol, hydralazine for vasodilators therapy. [facility] Medical History Post-nasal drip Trouble swallowing Chronic back pain Impacted cerumen of left ear Lower back pain Left hip pain CAD (coronary atherosclerotic disease) Osteoarthritis Hypothyroidism Multiple myeloma CKD stage 3 due to type 2 diabetes mellitus Impingement syndrome, shoulder Left shoulder pain CHF (congestive heart failure) Closed left hip fracture CAD (coronary artery disease) CHF (congestive heart failure) Cervix prolapsed into vagina History of blood transfusion (~02/01/23) Diabetes mellitus HFrEF (heart failure with reduced ejection fraction) Cardiomyopathy Normal colonoscopy Type 2 diabetes mellitus Diverticulosis Irritable bowel syndrome Pulmonary emboli GERD (gastroesophageal reflux disease) Nephrolithiasis Hypoparathyroidism Papillary thyroid carcinoma HTN (hypertension) Polymyalgia rheumatica Hyperglycemia Chronic anemia Anemia Surgical History Status post hip surgery (~08/04/23) History of colonoscopy (~07/30/18) Stented coronary artery Breast mass, right H/O endoscopy History of cholecystectomy H/O total thyroidectomy Family History Sister CHF (congestive heart failure) Daughter Breast cancer Son Kidney stones Social History Household Members: Other Household Members Other:: other Housing: House Do you presently have visiting nurse or other home services: Yes Alcohol intake: current Alcohol intake frequency: does not drink Patient Tobacco Use Status: Former Tobacco user Years Smoked: 30 +/- e-Cigarette/Vaping Use: Never Used Second Hand Smoke Exposure: No Advance Directives Date on File: 06/27/24 service: No Current occupational status: retired Current occupation: Right Handed Cognitive needs: Yes (cane) Hearing needs: No Vision needs: Yes (reading glasses) Review of Systems Const Denies chills, Denies fatigue, Denies fever(s), Denies frequent falls, Denies weakness, Denies weight gain and Denies weight loss ENT Denies dizziness Card Denies chest pain, Denies leg edema, Denies lightheadedness, Denies palpitations, Denies dyspnea, Denies dyspnea on exertion, Denies orthopnea and Denies other (loss of consciousness) Resp Denies cough, Denies dyspnea and Denies dyspnea on exertion GI Denies hematochezia and Denies change in stool character Musc Denies abnormal gait, Denies muscle weakness, Denies numbness, Denies radiating pain into limb and Denies tingling Neuro Denies abnormal gait, Denies dizziness, Denies frequent falls, Denies numbness, Denies tingling and Denies weakness Endo Denies fatigue and Denies palpitations Physical Exam Vital Signs: Last Vital Signs Pulse 80 02/18/25 14:41 BP 120/74 02/18/25 14:41 BMI result Body Mass Index 24.6 Const General: cooperative, healthy appearing, comfortable, no acute distress and tired appearing Orientation/consciousness: patient oriented x3 Neck Neck: Yes normal visual inspection and Yes no JVD Resp Effort & Inspection: normal respiratory effort Auscultation: clear to auscultation bilaterally, no crackles, no rales, no rhonchi and no wheezes Cardio Rate: regular rate Rhythm: regular rhythm Heart sounds: S1 normal heart sound present, S2 normal heart sound present, no gallops, no murmurs and no rubs Neuro General: patient oriented x3 Extrem General: Yes normal to inspection, No no pedal edema and No calf tenderness Psych Appearance: grossly normal Mental Status: mental status grossly normal Speech and movement: Normal speech and movement present Assessment & Plan Assessment & Plan (1) HFrEF (heart failure with reduced ejection fraction): Code(s): I50.20 - Unspecified systolic (congestive) heart failure Category: Medical Plan: Heart failure with reduced ejection fraction with increase requiring for diuretics could be related to worsening mitral regurgitation as noted on recent echocardiogram. This could be related to worsening coronary artery disease. See below. At this point time I have advised her to increase her bumetanide to 2 mg on 3 days a week, Saturday and Saturday and take 1 mg on the other days and PRN bumetanide as needed. Will follow-up lab work next week especially given her underlying renal insufficiency. Continue hydralazine for vasodilators therapy as well as carvedilol for neurohormonal modulation. Given her advanced renal disease can not further change her neurohormonal modulation to renin angiotensin system. Advised to seek emergency care for sudden worsening of the symptoms. (2) CAD (coronary artery disease): Comment: Cardiac catheterization, August 2023 showed critical RCA stenosis 95%, status post drug-eluting stent, 70% circumflex stenosis Code(s): I25.10 - Atherosclerotic heart disease of [place] coronary artery without angina pectoris Category: Medical Plan: CAD with prior drug-eluting stent to RCA about a year ago along with 70% circumflex disease with inferolateral akinesis and worsening heart failure syndrome. Concern for progressive coronary artery disease including restenosis of RCA and progressive circumflex disease. Will need further evaluation for progressive coronary disease with cardiac catheterization including evaluation for hemodynamics. If she does not have significant progression coronary artery disease can consider MitraClip if she has significant mitral regurgitation which may need further evaluation with a LUCI. Discussed with her the need for cardiac catheterization including risk, benefits, alternatives. Risk of contrast induced nephropathy was discussed. She understands. Overall prognosis is guarded. Continue high-intensity statin therapy. Continue antiplatelet therapy. Will follow up in the clinic after cardiac catheterization. Thank you for allowing me to partake in his care. Greater than 40 minutes was spent in managing her complex care. Orders: Orders NT Pro B Type Natriuretic Pept 1 Week I50.20 - Unspecified systolic (congestive) heart failure Basic Metabolic Panel 1 Week I50.20 - Unspecified systolic (congestive) heart failure Prothrombin Time INR 1 Week I50.20 - Unspecified systolic (congestive) heart failure Cardiac Cath HANSEL Diagnostic 2 Weeks I50.20 - Unspecified systolic (congestive) heart failure Complete Blood Count no Diff 1 Week I50.20 - Unspecified systolic (congestive) heart failure Medications: Changed From bumetanide Take 1 tablet daily and take an additional tablet daily for 3 days as needed for increased shortness of breath 1 mg PO DAILY 90 days 140 tabs 1RF shortness of breath To bumetanide Take 2 tablets, Saturday, Saturday and Saturday and 1 tablets on other day. Additional 1 mg as needed 1 mg PO DAILY 180 tabs 1RF shortness of breath 90 days Coding Level of Care Code Est Pt Level 5 (27382) Complex EM visit Add On G2211 Diagnoses HFrEF (heart failure with reduced ejection fraction) I50.20 CAD (coronary artery disease) I25.10
--- OUTSIDE RECORDS SUMMARY | 2025-02-18 17:00 | XMS_ITS | Encounter Summary ---
Author Organization [employer] Address [address] [place] [address] Care Team Providers Care Long Chain Dyeing Machine Operator Name Role Phone John Avina DO Primary Care Provider Encounter Details Date Type Department Care Team (Late st Contact Info) Description 08/22/2024 Lab Requisition [facility] - Main Lab [address] [facility] [place] [address] Lincoln Crespo MD [address] [place] [address] Essential (primary) hypertension; Atherosclerotic heart [...] Essential (primary) hypertension Atherosclerotic heart disease of [place] coronary artery without angina pectoris Anemia, unspecified COMPREHENSIVE METABOLIC PANEL Routine 08/24/2024 5:46 AM EDT Essential (primary) hypertension Atherosclerotic heart disease of [place] coronary artery without angina pectoris Anemia, unspecified documented in this encounter Results * (ABNORMAL) Comprehensive metabolic panel (08/24/2024 5:46 AM EDT) Sodium 144 133 - 145 mmol/L LAB CHEMISTRY METHOD 08/24/2024 9:15 AM EDT [facility] Potassium 4.0 3.5 - [...] EDT 08/24/2024 8:26 AM EDT us Lincoln Cresop MD LAB BLOOD ORDERABLES Final Resu lt [facility] LAB [address] [place] [address], [place] [phone] * (ABNORMAL) Complete blood count (08/24/2024 5:46 [...] [facility] [address] [place] [address], [place] [phone] documented in this encounter Visit Diagnoses Diagnosis Essential (primary) hypertension Unspecified essential hypertension Atherosclerotic heart disease of [place] coronary artery without angina pectoris Anemia, unspecified documented in this encounter Care Teams Long Chain Dyeing Machine Operator Relationship Specialty Start Date End Date John Avina DO [address] [place] [phone] PCP - General Internal Medicine 06/10/24 documented as of this encounter
--- OUTSIDE RECORDS SUMMARY | 2025-02-18 17:00 | XMS_ITS | Encounter Summary ---
Author Organization [facility] Address [address] [place] [address] Care Team Providers Care Geochemical Laboratory Technician Name Role Phone John Avina DO Primary Care Provider [phone] Encounter Details Date Type Department Care Team (Late st Contact Info) Description 08/17/2024 Lab Requisition [facility] - Main Lab [address] [facility] [place] [address] Lincoln Crespo MD [address] [place] [address] Other ulcerative colitis with rectal [...] AM EDT) WBC 7.1 4.8 - 10.8 K[facility] LAB HEMETOLOGY METHOD 08/18/2024 11:09 AM EDT [facility] RBC 2.80(L) 3.80 - 4.80 M/[facility] LAB HEMETOLOGY METHOD 08/18/2024 11:09 AM [facility] LAB Hemoglobin 9.2(L) 11.5 - 16.0 g/dL LAB HEMETOLOGY METHOD 08/18/2024 11:09 AM [facility] LAB Hematocrit 28.6(L) 35.0 - 47.0 % LAB HEMETOLOGY METHOD 08/18/2024 11:09 AM [facility] LAB MCV 103.6(H) 79.0 - 98.0 FL LAB HEMETOLOGY METHOD 08/18/2024 11:09 AM [facility] LAB MCH 33.3(H) 27.0 - 32.0 pcg LAB HEMETOLOGY METHOD 08/18/2024 11:09 AM [facility] LAB MCHC 32.2 32.0 - 37.0 g/dL LAB HEMETOLOGY METHOD 08/18/2024 11:09 AM [facility] LAB RDW 18.5(H) 11.0 - 15.0 % LAB HEMETOLOGY METHOD 08/18/2024 11:09 AM [facility] LAB Platelets 216 130 - 400 K/mcL LAB HEMETOLOGY METHOD 08/18/2024 11:09 AM [facility] LAB MPV 9.2 7.0 - 11.0 FL LAB HEMETOLOGY METHOD 08/18/2024 11:09 AM [facility] LAB NRBC 0.0 <1.0 % LAB HEMETOLOGY METHOD 08/18/2024 11:09 AM [facility] LAB NRBC Absolute 0.00 <0.10 K/mcL LAB HEMETOLOGY METHOD 08/18/2024 11:09 AM [facility] LAB Blood Venous blood specimen / Unknown Venipuncture / Unknown 08/18/2024 4:57 AM EDT 08/18/2024 10:57 AM EDT Lincoln Crespo MD LAB BLOOD ORDERABLES Final Resu lt [facility] LAB [address] [place] [address], documented in this encounter Visit Diagnoses Diagnosis Other ulcerative colitis with rectal bleeding (CMS/HCC V24, CMS/HCC V28) Anemia in chronic kidney disease (CODE) documented in this encounter Care Teams Geochemical Laboratory Technician Relationship Specialty Start Date End Date John Avina DO [address] [place] [phone] PCP - General Internal Medicine 06/10/24 documented as of this encounter
--- OUTSIDE RECORDS SUMMARY | 2025-02-18 17:00 | XMS_ITS | Encounter Summary ---
Author Organization [employer] Address [address] [place] [address] Care Team Providers Care Mathematics Professor Name Role Phone John Avina DO Primary Care Provider [phone] Encounter Details Date Type Department Care Team (Late st Contact Info) Description 08/26/2024 Lab Requisition [facility] - Main Lab 299 [facility] [place] [address] Lincoln Crespo MD [address] [place] [address] Essential (primary) hypertension; Atherosclerotic heart disease of [place] coronary artery without angina pectoris; Anemia, unspecified; [...] hypertension Atherosclerotic heart disease of [place] coronary artery without angina pectoris Anemia, unspecified Chronic kidney disease, unspecified BASIC METABOLIC PANEL Routine 08/27/2024 5:31 AM EDT Essential (primary) hypertension Atherosclerotic heart disease of [place] coronary artery without angina pectoris Anemia, unspecified Chronic kidney disease, unspecified documented in this encounter Results * (ABNORMAL) Basic metabolic panel (08/27/2024 5:31 AM EDT) Sodium 144 133 - 145 mmol/L LAB CHEMISTRY METHOD 08/27/2024 10:08 AM [facility] LAB Potassium 4.1 3.5 - 5.5 mmol/L LAB CHEMISTRY METHOD 08/27/2024 10:08 AM [facility] LAB Chloride 111(H) 96 - 110 mmol/L LAB CHEMISTRY METHOD 08/27/2024 10:08 AM [facility] LAB CO2 26 21 - 32 mmol/L LAB CHEMISTRY METHOD 08/27/2024 10:08 AM [facility] LAB Anion Gap 7 3 - 11 LAB CHEMISTRY METHOD 08/27/2024 10:08 AM [facility] LAB Glucose 86 70 - 100 mg/dL LAB CHEMISTRY METHOD 08/27/2024 10:08 AM [facility] LAB BUN 41(H) 5 - 25 mg/dL LAB CHEMISTRY METHOD 08/27/2024 10:08 AM [facility] LAB Creatinine 1.64(H) 0.50 - 1.10 mg/dL LAB CHEMISTRY METHOD 08/27/2024 10:08 AM [facility] LAB eGFR 32(L) >=60 mL/min/1. 73m2 LAB CHEMISTRY METHOD 08/27/2024 10:08 AM [facility] LAB Comment:Calculation based on the Chronic Kidney Disease Epidemiology Collaboration (CKD-EPI) equation refit without adjustment for race. BUN/Creatinine Ratio 25.0 LAB CHEMISTRY METHOD 08/27/2024 10:08 AM [facility] LAB Calcium 8.6 8.5 - 10.5 mg/dL LAB CHEMISTRY METHOD 08/27/2024 10:08 AM [facility] LAB Blood Venous blood specimen / Unknown Venipuncture / Unknown 08/27/2024 5:31 AM EDT 08/27/2024 8:43 AM EDT us Lincoln Crespo MD LAB BLOOD ORDERABLES Final Resu lt [facility] LAB [address] [place] [address], * (ABNORMAL) Complete blood count (08/27/2024 5:31 AM EDT) [facility] WBC 5.4 4.8 - 10.8 K/mcL LAB HEMETOLOGY [facility] RBC 2.70(L) 3.80 - 4.80 M/mcL LAB HEMETOLOGY METHOD 08/27/2024 9:02 AM [facility] LAB Hemoglobin 9.0(L) 11.5 - 16.0 g/dL LAB HEMETOLOGY METHOD 08/27/2024 9:02 AM [facility] LAB Hematocrit 27.9(L) 35.0 - 47.0 % LAB HEMETOLOGY METHOD 08/27/2024 9:02 AM [facility] LAB MCV 104.1(H) 79.0 - 98.0 FL LAB HEMETOLOGY METHOD 08/27/2024 9:02 AM [facility] LAB MCH 33.6(H) 27.0 - 32.0 pcg LAB HEMETOLOGY METHOD 08/27/2024 9:02 AM [facility] LAB MCHC 32.3 32.0 - 37.0 g/dL LAB HEMETOLOGY METHOD 08/27/2024 9:02 AM [facility] LAB RDW 19.1(H) 11.0 - 15.0 % LAB HEMETOLOGY METHOD 08/27/2024 9:02 AM [facility] LAB Platelets 214 130 - 400 K/mcL LAB HEMETOLOGY METHOD 08/27/2024 9:02 AM [facility] LAB MPV 9.3 7.0 - 11.0 FL LAB HEMETOLOGY METHOD 08/27/2024 9:02 AM [facility] LAB NRBC 0.0 [...] Resu lt [facility] LAB [address] [place] [address], documented in this encounter Visit Diagnoses Diagnosis Essential (primary) hypertension Unspecified essential hypertension Atherosclerotic heart disease of [place] coronary artery without angina pectoris Anemia, unspecified Chronic kidney disease, unspecified documented in this encounter Care Teams Mathematics Professor Relationship Specialty Start Date End Date John Avina DO [address] [place] [phone] PCP - General Internal Medicine 06/10/24 documented as of this encounter
--- OUTSIDE RECORDS SUMMARY | 2025-02-18 17:00 | XMS_ITS | Encounter Summary ---
Author Organization [email or web address] Address [address] [place] [address] Care Team Providers Care Sales Warehouse Driver Name Role Phone John Avina DO Primary Care Provider [phone] Encounter Details Date Type Department Care Team (Late st Contact Info) Description 08/19/2024 Lab Requisition [facility] - Main Lab [address] [facility] [place] [address] Lincoln Crespo MD [address] [place] [address] Essential (primary) hypertension; Atherosclerotic heart disease of [place] coronary artery without angina pectoris; Anemia, unspecified; [...] (primary) hypertension Atherosclerotic heart disease of [place] coronary artery without angina pectoris Anemia, unspecified Chronic kidney disease, unspecified BASIC METABOLIC PANEL Routine 08/20/2024 6:56 AM EDT Essential (primary) hypertension Atherosclerotic heart disease of [place] coronary artery without angina pectoris Anemia, unspecified Chronic kidney disease, unspecified documented in this encounter Results * (ABNORMAL) Basic metabolic panel (08/20/2024 6:56 AM EDT) Sodium 140 133 - 145 mmol/L LAB CHEMISTRY METHOD 08/20/2024 10:17 AM [facility] LAB Potassium 4.1 3.5 - 5.5 mmol/L LAB CHEMISTRY METHOD 08/20/2024 10:17 AM [facility] LAB Chloride 107 96 - 110 mmol/L LAB CHEMISTRY METHOD 08/20/2024 10:17 AM [facility] LAB CO2 25 21 - 32 mmol/L LAB CHEMISTRY METHOD 08/20/2024 10:17 AM [facility] LAB Anion Gap 8 3 - 11 LAB CHEMISTRY METHOD 08/20/2024 10:17 AM [facility] LAB Glucose 100 70 - 100 mg/dL LAB CHEMISTRY METHOD 08/20/2024 10:17 AM [facility] LAB BUN 31(H) 5 - 25 mg/dL LAB CHEMISTRY METHOD 08/20/2024 10:17 AM [facility] LAB Creatinine 1.63(H) 0.50 - 1.10 mg/dL LAB CHEMISTRY METHOD 08/20/2024 10:17 AM [facility] LAB eGFR 32(L) >=60 mL/min/1. 73m2 LAB CHEMISTRY METHOD 08/20/2024 10:17 AM [facility] LAB Comment:Calculation based on the Chronic Kidney Disease Epidemiology Collaboration (CKD-EPI) equation refit without adjustment for race. BUN/Creatinine Ratio 19.0 LAB CHEMISTRY METHOD 08/20/2024 10:17 AM [facility] LAB Calcium 9.2 8.5 - 10.5 mg/dL LAB CHEMISTRY METHOD 08/20/2024 10:17 AM [facility] LAB Blood Venous blood specimen / Unknown Venipuncture / Unknown 08/20/2024 6:56 AM EDT 08/20/2024 9:28 AM EDT us Lincoln Crespo MD LAB BLOOD ORDERABLES Final Resu lt [facility] LAB [address] [place] [address], * (ABNORMAL) Complete blood count (08/20/2024 6:56 AM EDT) [facility] WBC 8.6 4.8 - 10.8 K/mcL LAB HEMETOLOGY METHOD 08/20/2024 9:58 AM [facility] RBC 3.30(L) 3.80 - 4.80 M/mcL LAB HEMETOLOGY METHOD [facility]24 [facility] Hemoglobin 10.9(L) 11.5 - 16.0 g/dL LAB HEMETOLOGY METHOD 08/20/2024 9:58 AM [facility] LAB Hematocrit 34.1(L) 35.0 - 47.0 % LAB HEMETOLOGY METHOD 08/20/2024 9:58 AM [facility] LAB MCV 102.1(H) 79.0 - 98.0 FL LAB HEMETOLOGY METHOD 08/20/2024 9:58 AM [facility] LAB MCH 32.6(H) 27.0 - 32.0 pcg LAB HEMETOLOGY METHOD 08/20/2024 9:58 AM [facility] LAB MCHC 32.0 32.0 - 37.0 g/dL LAB HEMETOLOGY METHOD 08/20/2024 9:58 AM [facility] LAB RDW 18.5(H) 11.0 - 15.0 % LAB HEMETOLOGY METHOD 08/20/2024 9:58 AM [facility] LAB Platelets 264 130 - 400 K/mcL LAB HEMETOLOGY METHOD 08/20/2024 9:58 AM [facility] LAB MPV 9.0 7.0 - 11.0 FL LAB HEMETOLOGY METHOD 08/20/2024 9:58 AM [facility] LAB NRBC [...] lt [facility] LAB [address] [place] [address], documented in this encounter Visit Diagnoses Diagnosis Essential (primary) hypertension Unspecified essential hypertension Atherosclerotic heart disease of [place] coronary artery without angina pectoris Anemia, unspecified Chronic kidney disease, unspecified documented in this encounter Care Teams Sales Warehouse Driver Relationship Specialty Start Date End Date John Avina DO [address] [place] [phone] PCP - General Internal Medicine 06/10/24 documented as of this encounter
--- OUTSIDE RECORDS SUMMARY | 2025-02-18 17:00 | XMS_ITS | Clinical Summary ---
Author Organization [address] Address [address] [place] [address] Phone Care Team Providers Care Inspector Electromechanical Name Role Phone FabriceJohn solares Primary Care Provider [phone] Social History Tobacco Use Types Packs/Day Years [...] Essential (primary) hypertension Atherosclerotic heart disease of [place] coronary artery without angina pectoris Anemia, unspecified Chronic kidney disease, unspecified from Last 3 Months or Most Recently Relevant to Health Maintenance Results * (ABNORMAL) Basic metabolic panel (09/17/2024 8:40 AM EDT) Sodium 141 133 - 145 mmol/L LAB CHEMISTRY METHOD 09/17/2024 11:11 AM [facility] LAB Potassium 4.0 3.5 - 5.5 mmol/L LAB CHEMISTRY METHOD 09/17/2024 11:11 AM [facility] LAB Chloride 109 96 - 110 mmol/L LAB CHEMISTRY METHOD 09/17/2024 11:11 AM [facility] LAB CO2 24 21 - 32 mmol/L LAB CHEMISTRY METHOD 09/17/2024 11:11 AM [facility] LAB Anion Gap 8 3 - 11 LAB CHEMISTRY METHOD 09/17/2024 11:11 AM [facility] LAB Glucose 103(H) 70 - 100 [...] Resu lt [facility] [address] [place] [address], from Last 3 Months or Most Recently Relevant to Health Maintenance Insurance MEDICARE [facility] MEDICARE Care Teams Inspector Electromechanical Relationship Specialty Start Date End Date John Avina DO [address] [place] [phone] PCP - General Internal Medicine 06/10/24
--- OUTSIDE RECORDS SUMMARY | 2025-02-18 17:00 | XMS_ITS | Encounter Summary ---
Author Organization [facility] Address [address] [place] [address] Care Team Providers Care Youtuber Name Role Phone John Avina DO Primary Care Provider [phone] Encounter Details Date Type Department Care Team (Late st Contact Info) Description 06/10/2024 Lab Requisition [facility] - Main Lab 299 [facility] [place] [address] Arianna Iraheta PA [address] [place], [place] [id number] Dysuria Social History Tobacco Use Types Packs/Day [...] ssp pneumoniae(A) RIC 06/12/2024 11:01 AM EST [facility] Comment: This is an edited result. Previous organism was Gram negative bacilli on 06/11/2024 at 1338 EST. Urine Urine specimen obtained by clean catch procedure / Unknown 06/10/2024 06/10/2024 6:22 PM EST Narrative Organism Antibiotic Method Susceptibility Klebsiella pneumoniae ssp pneumoniae Amoxicillin/Clavulanate RCI <=2 ug/ml: Susceptible Klebsiella pneumoniae ssp pneumoniae [...] MICROBIOLOGY - GENERAL ORD ERABLES Final Result [facility] LAB [address] [place] [address], documented in this encounter Visit Diagnoses Diagnosis Dysuria documented in this encounter Care Teams Youtuber Relationship Specialty Start Date End Date John Avina DO [address] [place] [phone] PCP - General Internal Medicine 06/10/24 documented as of this encounter
--- OUTSIDE RECORDS SUMMARY | 2025-02-18 17:00 | XMS_ITS | Encounter Summary ---
Author Organization [facility] Address [address] [place] [address] Care Team Providers Care Industrial Equipment Wirer Name Role Phone John Avina DO Primary Care Provider [phone] Encounter Details Date Type Department Care Team (Late st Contact Info) Description 08/14/2024 Lab Requisition [facility] - Main Lab 299 [facility] [place] [address] Lincoln Crespo MD [address] [place] [address] Essential (primary) hypertension; Atherosclerotic heart disease of [place] coronary artery without angina pectoris; Anemia, unspecified [...] Essential (primary) hypertension Atherosclerotic heart disease of [place] coronary artery without angina pectoris Anemia, unspecified COMPREHENSIVE METABOLIC PANEL Routine 08/17/2024 5:41 AM EDT Essential (primary) hypertension Atherosclerotic heart disease of [place] coronary artery without angina pectoris Anemia, unspecified documented in this encounter Results * (ABNORMAL) Comprehensive metabolic panel (08/17/2024 5:41 AM EDT) Sodium 141 133 - 145 mmol/L LAB CHEMISTRY METHOD 08/17/2024 1:[address] [facility] Potassium 3.8 3.5 - 5.5 mmol/L LAB CHEMISTRY METHOD 08/17/2024 1:27 PM [facility] LAB Chloride 108 96 - 110 mmol/L LAB CHEMISTRY METHOD 08/17/2024 1:27 PM [facility] CO2 23 21 - 32 mmol/L LAB CHEMISTRY METHOD 08/17/2024 1:27 PM [facility] Anion Gap 10 3 - 11 LAB CHEMISTRY METHOD 08/17/2024 1:27 PM [facility] LAB Glucose 69(L) 70 - 100 mg/dL LAB CHEMISTRY METHOD 08/17/2024 1:27 PM [facility] BUN 34(H) 5 - 25 mg/dL LAB CHEMISTRY METHOD 08/17/2024 1:27 PM [facility] LAB Creatinine 1.53(H) 0.50 - 1.10 mg/dL LAB CHEMISTRY METHOD 08/17/2024 1:27 PM [facility] LAB eGFR 35(L) >=60 mL/min/1. 73m2 LAB CHEMISTRY METHOD 08/17/2024 1:27 PM [facility] LAB Comment:Calculation based on the Chronic Kidney Disease Epidemiology Collaboration (CKD-EPI) equation refit without adjustment for race. BUN/Creatinine Ratio 22.2 LAB CHEMISTRY METHOD 08/17/2024 1:27 PM [facility] Calcium 8.7 8.5 - 10.5 mg/dL LAB CHEMISTRY METHOD 08/17/2024 1:27 PM [facility] LAB AST (SGOT) 9(L) 10 - 42 unit/L LAB CHEMISTRY METHOD 08/17/2024 1:27 PM [facility] ALT (SGPT) 8(L) 10 - 60 unit/L LAB CHEMISTRY METHOD 08/17/2024 1:27 PM [facility] LAB Alkaline Phosphatase 67 42 - 121 unit/L LAB CHEMISTRY METHOD 08/17/2024 1:27 PM [facility] Total Protein 5.5(L) 6.0 - 8.0 g/dL LAB CHEMISTRY METHOD 08/17/2024 1:27 PM EDT [facility] LAB Albumin 2.4(L) 3.2 - 5.0 g/dL LAB CHEMISTRY METHOD 08/17/2024 1:27 PM EDT [facility] LAB Total Bilirubin 0.4 0.0 - 1.4 mg/dL LAB CHEMISTRY METHOD 08/17/2024 1:27 PM EDT [facility] LAB Blood Venous blood specimen / Unknown Venipuncture / Unknown 08/17/2024 5:41 AM EDT 08/17/2024 10:15 AM EDT us Lincoln Crespo MD LAB BLOOD ORDERABLES Final Resu lt [facility] LAB [address] [place] [address], * (ABNORMAL) Complete blood count (08/17/2024 5:41 AM EDT) WBC 7.2 4.8 - 10.8 K/mcL LAB HEMETOLOGY METHOD 08/17/2024 11:28 AM [facility] LAB RBC 2.90(L) 3.80 - 4.80 M/mcL LAB HEMETOLOGY METHOD 08/17/2024 11:28 AM EDT [facility] LAB Hemoglobin 9.6(L) 11.5 - 16.0 g/dL LAB HEMETOLOGY METHOD 08/17/2024 11:28 AM EDT [facility] LAB Hematocrit 29.9(L) 35.0 - 47.0 % LAB HEMETOLOGY METHOD 08/17/2024 11:[facility] MCV 103.5(H) 79.0 - 98.0 FL LAB HEMETOLOGY METHOD 08/17/2024 11:28 AM EDT [facility] LAB MCH 33.2(H) 27.0 - 32.0 pcg LAB HEMETOLOGY METHOD 08/17/2024 11:28 AM [facility] LAB MCHC 32.1 32.0 - 37.0 g/dL LAB HEMETOLOGY METHOD 08/17/2024 11:28 AM [facility] RDW 18.2(H) 11.0 - 15.0 % LAB HEMETOLOGY METHOD 08/17/2024 11:28 AM [facility] Platelets 215 130 - 400 K/mcL LAB HEMETOLOGY METHOD 08/17/2024 11:28 AM [facility] LAB MPV 9.2 7.0 - 11.0 FL LAB HEMETOLOGY METHOD 08/17/2024 11:28 AM [facility] LAB NRBC 0.0 <1.0 % LAB HEMETOLOGY METHOD 08/17/2024 11:28 AM [facility] LAB NRBC Absolute 0.00 <0.10 K/mcL LAB HEMETOLOGY METHOD 08/17/2024 11:28 AM [facility] LAB Blood Venous blood specimen / Unknown Venipuncture / Unknown 08/17/2024 5:41 AM EDT 08/17/2024 10:15 AM EDT us Lincoln Crespo MD LAB BLOOD ORDERABLES Final Resu lt [facility] LAB [address] [place] [address], documented in this encounter Visit Diagnoses Diagnosis Essential (primary) hypertension Unspecified essential hypertension Atherosclerotic heart disease of [place] coronary artery without angina pectoris Anemia, unspecified documented in this encounter Care Teams Industrial Equipment Wirer Relationship Specialty Start Date End Date John Avina DO [address] [place] [phone] PCP - General Internal Medicine 06/10/24 documented as of this encounter
--- OUTSIDE RECORDS SUMMARY | 2025-02-18 17:01 | XMS_ITS | Encounter Summary ---
Author Organization [facility] Address [address] [place] [address] Care Team Providers Care Fish Boning Machine Feeder Name Role Phone John Avina DO Primary Care Provider [phone] Encounter Details Date Type Department Care Team (Late st Contact Info) Description 09/14/2024 Lab Requisition [facility] - Main Lab 299 [facility] [place] [address] Lincoln Crespo MD [address] [place] [address] Essential (primary) hypertension; Atherosclerotic heart disease of [place] coronary artery without angina pectoris; Anemia, unspecified [...] Essential (primary) hypertension Atherosclerotic heart disease of [place] coronary artery without angina pectoris Anemia, unspecified COMPREHENSIVE METABOLIC PANEL Routine 09/15/2024 7:05 AM EDT Essential (primary) hypertension Atherosclerotic heart disease of [place] coronary artery without angina pectoris Anemia, unspecified documented in this encounter Results * (ABNORMAL) Complete blood count (09/15/2024 7:07 AM EDT) WBC 5.1 4.8 - 10.8 K/mcL LAB HEMETOLOGY METHOD 09/15/2024 12:07 PM EDT [facility] ([facility] RBC 2.30(L) 3.80 [...] lt [facility] [address] [place] [address], [place] [phone] * (ABNORMAL) Comprehensive metabolic panel (09/15/2024 7:05 [...] LAB CHEMISTRY METHOD 09/15/2024 12:43 PM EDT [facility] Calcium 8.9 8.5 - 10.5 mg/dL LAB CHEMISTRY METHOD 09/15/2024 12:43 PM T [facility] AST (SGOT) 6(L) 10 - 42 unit/L LAB CHEMISTRY METHOD 09/15/2024 12:43 PM [facility] ALT (SGPT) 15 10 - 60 unit/L LAB CHEMISTRY METHOD 09/15/2024 12:43 PM T [facility] Alkaline Phosphatase 56 42 [...] lt [facility] [address] [place] [address], documented in this encounter Visit Diagnoses Diagnosis Essential (primary) hypertension Unspecified essential hypertension Atherosclerotic heart disease of [place] coronary artery without angina pectoris Anemia, unspecified documented in this encounter Care Teams Fish Boning Machine Feeder Relationship Specialty Start Date End Date John Avina DO [address] [place] [phone] PCP - General Internal Medicine 06/10/24 documented as of this encounter
--- OUTSIDE RECORDS SUMMARY | 2025-02-18 17:01 | XMS_ITS | Encounter Summary ---
Author Organization [facility] Address [address] [place] [address] Care Team Providers Care Security Operations Manager Name Role Phone John Avina DO Primary Care Provider [phone] Encounter Details Date Type Department Care Team (Late st Contact Info) Description 08/16/2024 Lab Requisition [facility] - Main Lab 299 [facility] [place] [address] Lincoln Crespo MD [address] [place] [address] Other ulcerative colitis with rectal [...] AM EDT) WBC 7.2 4.8 - 10.8 K/[facility] LAB HEMETOLOGY METHOD 08/16/2024 10:41 AM EDT [facility] ([facility] [facility] LAB RBC 2.90(L) 3.80 - 4.80 M/[facility] LAB HEMETOLOGY METHOD 08/16/2024 10:41 AM [facility] LAB Hemoglobin 9.7(L) 11.5 - 16.0 g/dL LAB HEMETOLOGY METHOD 08/16/2024 10:41 AM [facility] LAB Hematocrit 29.9(L) 35.0 - 47.0 % LAB HEMETOLOGY METHOD 08/16/2024 10:41 AM [facility] LAB MCV 101.7(H) 79.0 - 98.0 FL LAB HEMETOLOGY METHOD 08/16/2024 10:41 AM [facility] LAB MCH 33.0(H) 27.0 - 32.0 pcg LAB HEMETOLOGY METHOD 08/16/2024 10:41 AM [facility] LAB MCHC 32.4 32.0 - 37.0 g/dL LAB HEMETOLOGY METHOD 08/16/2024 10:41 AM [facility] LAB RDW 18.1(H) 11.0 - 15.0 % LAB HEMETOLOGY METHOD 08/16/2024 10:41 AM [facility] LAB Platelets 246 130 - 400 K/mcL LAB HEMETOLOGY METHOD 08/16/2024 10:41 AM [facility] LAB MPV 9.2 7.0 - 11.0 FL LAB HEMETOLOGY METHOD 08/16/2024 10:41 AM [facility] LAB NRBC 0.0 <1.0 % LAB HEMETOLOGY METHOD 08/16/2024 10:41 AM [facility] LAB NRBC Absolute 0.00 <0.10 K/mcL LAB HEMETOLOGY METHOD 08/16/2024 10:41 AM [facility] LAB Blood Venous blood specimen / Unknown Venipuncture / Unknown 08/16/2024 8:48 AM EDT 08/16/2024 10:02 AM EDT Lincoln Crespo MD LAB BLOOD ORDERABLES Final [facility]u [facility] LAB [address] [place] [address], documented in this encounter Visit Diagnoses Diagnosis Other ulcerative colitis with rectal bleeding (CMS/HCC V24, CMS/HCC V28) Anemia in chronic kidney disease (CODE) documented in this encounter Care Teams Security Operations Manager Relationship Specialty Start Date End Date John Avina DO [address] [place] [phone] PCP - General Internal Medicine 06/10/24 documented as of this encounter
--- OUTSIDE RECORDS SUMMARY | 2025-02-18 17:01 | XMS_ITS | Encounter Summary ---
Author Organization [facility] Address [address] [place] [address] Care Team Providers Care Moccasin Sewer Name Role Phone John Avina DO Primary Care Provider [phone] Encounter Details Date Type Department Care Team (Late st Contact Info) Description 08/15/2024 Lab Requisition [facility] - Main Lab 299 [facility] [place] [address] Lincoln Crespo MD [address] [place] [address] Other ulcerative colitis with rectal [...] AM EDT) WBC 6.7 4.8 - 10.8 K/[facility] LAB HEMETOLOGY METHOD 08/15/2024 11:29 AM EDT [facility] RBC 3.10(L) 3.80 - 4.80 M/[facility] LAB HEMETOLOGY METHOD 08/15/2024 11:29 AM [facility] LAB Hemoglobin 10.4(L) 11.5 - 16.0 g/dL LAB HEMETOLOGY METHOD 08/15/2024 11:29 AM [facility] LAB Hematocrit 31.4(L) 35.0 - 47.0 % LAB HEMETOLOGY METHOD 08/15/2024 11:29 AM [facility] LAB MCV 100.6(H) 79.0 - 98.0 FL LAB HEMETOLOGY METHOD 08/15/2024 11:29 AM [facility] LAB MCH 33.3(H) 27.0 - 32.0 pcg LAB HEMETOLOGY METHOD 08/15/2024 11:29 AM [facility] LAB MCHC 33.1 32.0 - 37.0 g/dL LAB HEMETOLOGY METHOD 08/15/2024 11:29 AM [facility] LAB RDW 18.6(H) 11.0 - 15.0 % LAB HEMETOLOGY METHOD 08/15/2024 11:29 AM [facility] LAB Platelets 228 130 - 400 K/mcL LAB HEMETOLOGY METHOD 08/15/2024 11:29 AM [facility] LAB MPV 9.4 7.0 - 11.0 FL LAB HEMETOLOGY METHOD 08/15/2024 11:29 AM [facility] LAB NRBC 0.0 <1.0 % LAB HEMETOLOGY METHOD 08/15/2024 11:29 AM [facility] LAB NRBC Absolute 0.00 <0.10 K/mcL LAB HEMETOLOGY METHOD 08/15/2024 11:29 AM [facility] LAB Blood Venous blood specimen / Unknown Venipuncture / Unknown 08/15/2024 9:21 AM EDT 08/15/2024 10:30 AM EDT Lincoln Crespo MD LAB BLOOD ORDERABLES [facility] LAB [address] [place] [address], documented in this encounter Visit Diagnoses Diagnosis Other ulcerative colitis with rectal bleeding (CMS/HCC V24, CMS/HCC V28) Anemia in chronic kidney disease (CODE) documented in this encounter Care Teams Moccasin Sewer Relationship Specialty Start Date End Date John Avina DO [address] [place] [phone] PCP - General Internal Medicine 06/10/24 documented as of this encounter
--- OUTSIDE RECORDS SUMMARY | 2025-02-18 17:01 | XMS_ITS | Encounter Summary ---
Author Organization [facility] Address [address] [place] [address] Care Team Providers Care Poultry Farm Worker Name Role Phone John Avina DO Primary Care Provider [phone] Encounter Details Date Type Department Care Team (Late st Contact Info) Description 09/09/2024 Lab Requisition [facility] - Main Lab 299 [facility] [place] [address] Lincoln Crespo MD [address] [place] [address] Essential (primary) hypertension; Atherosclerotic heart disease of [place] coronary artery without angina pectoris; Anemia, unspecified; [...] Essential (primary) hypertension Atherosclerotic heart disease of [place] coronary artery without angina pectoris Anemia, unspecified Chronic kidney disease, unspecified BASIC METABOLIC PANEL Routine 09/10/2024 6:12 AM EDT Essential (primary) hypertension Atherosclerotic heart disease of [place] coronary artery without angina pectoris Anemia, unspecified Chronic kidney disease, unspecified documented in this encounter Results * (ABNORMAL) Basic metabolic panel (09/10/2024 6:12 AM EDT) Sodium 146(H) 133 - 145 mmol/L LAB CHEMISTRY METHOD 09/10/2024 10:04 AM [facility] LAB Potassium 4.0 3.5 - 5.5 mmol/L LAB CHEMISTRY METHOD 09/10/2024 10:04 AM [facility] LAB Chloride 113(H) 96 - 110 mmol/L LAB CHEMISTRY METHOD 09/10/2024 10:04 AM [facility] LAB CO2 26 21 - 32 mmol/L LAB CHEMISTRY METHOD 09/10/2024 10:04 AM [facility] LAB Anion Gap 7 3 - 11 LAB CHEMISTRY METHOD 09/10/2024 10:04 AM [facility] LAB Glucose 84 70 - 100 mg/dL LAB CHEMISTRY METHOD 09/10/2024 10:04 AM [facility] LAB BUN 44(H) 5 - 25 mg/dL LAB CHEMISTRY METHOD 09/10/2024 10:04 AM [facility] LAB Creatinine 2.03(H) 0.50 - 1.10 mg/dL LAB CHEMISTRY METHOD 09/10/2024 10:04 AM [facility] LAB eGFR 25(L) >=60 mL/min/1. 73m2 LAB CHEMISTRY METHOD 09/10/2024 10:04 AM [facility] LAB Comment:Calculation based on the Chronic Kidney Disease Epidemiology Collaboration (CKD-EPI) equation refit without adjustment for race. BUN/Creatinine Ratio 21.7 LAB CHEMISTRY METHOD 09/10/2024 10:04 AM [facility] LAB Calcium 8.8 8.5 - 10.5 mg/dL LAB CHEMISTRY METHOD 09/10/2024 10:04 AM [facility] LAB Blood Venous blood specimen / Unknown Venipuncture / Unknown 09/10/2024 6:12 AM EDT 09/10/2024 9:16 AM EDT us Lincoln Crespo MD LAB BLOOD ORDERABLES Final Resu lt [facility] [address] [place] [address], * (ABNORMAL) Complete blood count (09/10/2024 6:12 AM EDT) [facility] WBC 5.2 4.8 - 10.8 K/mcL LAB HEMETOLOGY METHOD 09/10/2024 9:33 AM EDT [facility] LAB RBC 2.50(L) 3.80 - 4.80 M/mcL LAB HEMETOLOGY METHOD 09/10/2024 9:33 AM EDT [facility] LAB Hemoglobin 8.6(L) 11.5 - 16.0 g/dL LAB HEMETOLOGY METHOD 09/10/2024 9:33 AM EDT [facility] LAB Hematocrit 26.4(L) 35.0 - 47.0 % LAB HEMETOLOGY METHOD [facility]/10[facility]2024 9[facility] MCV 106.5(H) 79.0 - 98.0 FL LAB HEMETOLOGY METHOD 09/10/2024 9:33 AM EDT [facility] LAB MCH 34.7(H) 27.0 - 32.0 pcg LAB HEMETOLOGY METHOD [facility]/10[facility]2024 9[facility] MCHC 32.6 32.0 - 37.0 g/dL LAB HEMETOLOGY METHOD 09/10/2024 9:[facility] RDW 19.2(H) 11.0 - 15.0 % LAB HEMETOLOGY METHOD 09/10/2024 9:33 AM EDT [facility] Platelets 161 130 - 400 K/mcL LAB HEMETOLOGY METHOD 09/10/2024 9:33 AM EDT [facility] MPV 9.3 7.0 - 11.0 FL LAB HEMETOLOGY METHOD 09/10/2024 9:33 AM EDT [facility] NRBC 0.0 <1.0 % LAB HEMETOLOGY METHOD 09/10/2024 9:33 AM EDT [facility] NRBC Absolute 0.00 <0.10 K/mcL LAB HEMETOLOGY METHOD 09/10/2024 9:33 AM EDT [facility] Blood Venous blood specimen / Unknown Venipuncture / Unknown 09/10/2024 6:12 AM EDT 09/10/2024 9:16 AM EDT us Lincoln Crespo MD LAB BLOOD ORDERABLES Final Resu lt [facility] ([facility]) [facility] [address] [place] [address], documented in this encounter Visit Diagnoses Diagnosis Essential (primary) hypertension Unspecified essential hypertension Atherosclerotic heart disease of [place] coronary artery without angina pectoris Anemia, unspecified Chronic kidney disease, unspecified documented in this encounter Care Teams Poultry Farm Worker Relationship Specialty Start Date End Date John Avina DO [address] [place] [phone] PCP - General Internal Medicine 06/10/24 documented as of this encounter
--- OUTSIDE RECORDS SUMMARY | 2025-02-18 17:01 | XMS_ITS | Clinical Summary ---
Author Organization [facility] Address [address] [place] [address] Phone Care Team Providers Care Regional Tanker Truck Driver Name Role Phone FabriceJohn solares Primary Care [...] Visit [facility] [address] [place] [address] Mejia Soler [...] Visit [facility] [address] [place] [address] Mejia Soler MD [address] [facility] [address] [place] [address] Health Maintenance Due Date Last [...] 108.0 Magnesium 2.4 1.6 - 2.4 01/25/2025 [facility] Provider LAB BLOOD ORDERABLES Sarah l Result from Last 3 Months Insurance Medicare [facility] Medicare [facility] Care Teams Regional Tanker Truck Driver Relationship Specialty Start Date End Date John Avina DO [address] [place] [address] PCP - General Internal Medicine 10/23/23
--- OUTSIDE RECORDS SUMMARY | 2025-02-18 17:01 | XMS_ITS | Encounter Summary ---
Author Organization [facility] Address [address] [place] [phone] Care Team Providers Care Human Resources Administrator Name Role Phone John Avina DO Primary Care Provider Encounter Details Date Type Department Care Team (Late st Contact Info) Description 09/18/2024 Lab Requisition [facility] - Main Lab [address] [place] [address] Lincoln Crespo MD [address] [place] [address] Essential (primary) hypertension; Atherosclerotic heart disease of [place] coronary artery without angina pectoris; Anemia, unspecified [...] Unspecified essential hypertension Atherosclerotic heart disease of [place] coronary artery without angina pectoris Anemia, unspecified documented in this encounter Care Teams Human Resources Administrator Relationship Specialty Start Date End Date John Avina DO [address] [place] [phone] PCP - General Internal Medicine 06/10/24 documented as of this encounter
--- OUTSIDE RECORDS SUMMARY | 2025-02-18 17:01 | XMS_ITS | Encounter Summary ---
Author Organization [employer] Address [address] [place] [address] Care Team Providers Care Geospatial Technologist Name Role Phone John Avina DO Primary Care Provider [phone] Encounter Details Date Type Department Care Team (Late st Contact Info) Description 08/30/2024 Lab Requisition [facility] - Main Lab [address] [facility] [place] [address] Lincoln Crespo MD [address] [place] [address] Essential (primary) hypertension; Atherosclerotic heart [...] LAB CHEMISTRY METHOD 08/31/2024 1:17 PM EDT [facility] Potassium 4.7 3.5 - 5.5 [...] LAB CHEMISTRY METHOD 08/31/2024 1:17 PM EDT [facility] LAB Total Protein 6.6 6.0 - 8.0 g/dL LAB CHEMISTRY METHOD 08/31/2024 1:17 PM EDT [facility] LAB Albumin 3.1(L) 3.2 - 5.0 g/dL LAB CHEMISTRY METHOD 08/31/2024 1:17 PM EDT [facility] LAB Total Bilirubin 0.4 0.0 - 1.4 mg/dL LAB CHEMISTRY METHOD 08/31/2024 1:17 PM EDT [facility] LAB Blood Venous blood specimen / Unknown 08/31/2024 5:18 AM EDT 08/31/2024 11:34 AM EDT [facility] LAB - 08/31/2024 1:17 PM EDT Short sample, interpret results with caution us Lincoln Crespo MD LAB BLOOD ORDERABLES Final Resu lt [facility] LAB [address] [place] [address], [place] [phone] * (ABNORMAL) Complete blood count (08/31/2024 5:18 AM EDT) WBC 5.2 4.8 - 10.8 K/mcL LAB HEMETOLOGY METHOD 08/31/2024 1:43 PM EDT [facility] LAB RBC 2.50(L) 3.80 - 4.80 M/mcL LAB HEMETOLOGY METHOD 08/31/2024 1:43 PM EDT [facility] LAB Hemoglobin 8.6(L) 11.5 - 16.0 g/dL LAB HEMETOLOGY METHOD 08/31/2024 1:43 PM EDT [facility] LAB Hematocrit 27.1(L) 35.0 - 47.0 % LAB HEMETOLOGY METHOD 08/31/2024 1:43 PM EDT [facility] LAB MCV 106.7(H) 79.0 - 98.0 FL LAB HEMETOLOGY METHOD 08/31/2024 1:43 PM EDT [facility] LAB MCH 33.9(H) 27.0 - 32.0 pcg LAB HEMETOLOGY METHOD 08/31/2024 1:43 PM EDT [facility] LAB MCHC 31.7(L) 32.0 - 37.0 g/dL LAB HEMETOLOGY METHOD 08/31/2024 1:43 PM EDT [facility] LAB RDW 19.2(H) 11.0 - 15.0 % LAB HEMETOLOGY METHOD 08/31/2024 1:43 PM EDT [facility] LAB Platelets 223 130 - 400 K/mcL LAB HEMETOLOGY METHOD 08/31/2024 1:43 PM EDT [facility] LAB MPV 9.6 7.0 - 11.0 FL LAB HEMETOLOGY METHOD 08/31/2024 1:43 PM EDT [facility] LAB NRBC 0.0 <1.0 % LAB HEMETOLOGY METHOD 08/31/2024 1:43 PM EDT [facility] LAB NRBC Absolute 0.00 <0.10 K/mcL LAB HEMETOLOGY METHOD 08/31/2024 1:43 PM EDT [facility] LAB Blood Venous blood specimen / Unknown 08/31/2024 5:18 AM EDT 08/31/2024 11:31 AM EDT us Lincoln Crespo MD LAB BLOOD ORDERABLES Final Resu lt [facility] LAB [address] [place] [address], documented in this encounter Visit Diagnoses Diagnosis Essential (primary) hypertension Unspecified essential hypertension Atherosclerotic heart disease of [place] coronary artery without angina pectoris Anemia, unspecified documented in this encounter Care Teams Geospatial Technologist Relationship Specialty Start Date End Date John Avina DO [address] [place] [phone] PCP - General Internal Medicine 06/10/24 documented as of this encounter
--- OUTSIDE RECORDS SUMMARY | 2025-02-18 17:01 | XMS_ITS | Encounter Summary ---
Author Organization [employer] Address [address] [place] [address] Care Team Providers Care Bull Gang Worker Name Role Phone John Avina DO Primary Care Provider [phone] Encounter Details Date Type Department Care Team (Late st Contact Info) Description 09/16/2024 Lab Requisition [facility] - Main Lab 299 [facility] [place] [address] Lincoln Crespo MD [address] [place] [address] Essential (primary) hypertension; Atherosclerotic heart disease of [place] coronary artery without angina pectoris; Anemia, unspecified; [...] Essential (primary) hypertension Atherosclerotic heart disease of [place] coronary artery without angina pectoris Anemia, unspecified Chronic kidney disease, unspecified BASIC METABOLIC PANEL Routine 09/17/2024 8:40 AM EDT Essential (primary) hypertension Atherosclerotic heart disease of [place] coronary artery without angina pectoris Anemia, unspecified [...] lt [facility] LAB [address] [place] [address], * (ABNORMAL) Complete blood count (09/17/2024 8:40 AM EDT) [facility] WBC 6.5 4.8 - 10.8 K/mcL LAB HEMETOLOGY METHOD 09/17/2024 10:30 AM EDT [facility] LAB RBC 2.70(L) 3.80 - 4.80 M/mcL LAB HEMETOLOGY METHOD 09/17/2024 10:30 AM EDT [facility] LAB Hemoglobin 9.4(L) 11.5 - 16.0 g/dL LAB HEMETOLOGY METHOD 09/17/2024 10:[address] [facility] LAB Hematocrit 28.1(L) 35.0 - 47.0 % LAB HEMETOLOGY METHOD 09/17/2024 10:[address] [facility] LAB MCV 106.0(H) 79.0 - 98.0 FL LAB HEMETOLOGY METHOD 09/17[facility]2024 [facility] MCH 35.5(H) 27.0 - 32.0 pcg LAB HEMETOLOGY METHOD 09/17/2024 10:[address] [facility] LAB MCHC 33.5 32.0 - 37.0 g/dL LAB HEMETOLOGY METHOD 09/17/2024 10:[facility] RDW 18.7(H) 11.0 - 15.0 % LAB HEMETOLOGY METHOD 09/17/2024 10:[facility] Platelets 183 130 - 400 K/mcL LAB HEMETOLOGY METHOD 09/17/2024 10:[address] [facility] MPV 9.4 7.0 - 11.0 FL LAB HEMETOLOGY METHOD 09/17/2024 10:30 AM EDT [facility] LAB NRBC 0.0 <1.0 % LAB HEMETOLOGY METHOD 09/17/2024 10:30 AM EDT [facility] LAB NRBC Absolute 0.00 <0.10 K/mcL LAB HEMETOLOGY METHOD 09/17/2024 10:30 AM EDT [facility] LAB Blood Venous blood specimen / Unknown Venipuncture / Unknown 09/17/2024 8:40 AM EDT 09/17/2024 10:05 AM EDT us Lincoln Crespo MD LAB BLOOD ORDERABLES Final Resu lt [facility] LAB [address] [place] [address], documented in this encounter Visit Diagnoses Diagnosis Essential (primary) hypertension Unspecified essential hypertension Atherosclerotic heart disease of [place] coronary artery without angina pectoris Anemia, unspecified Chronic kidney disease, unspecified documented in this encounter Care Teams Bull Gang Worker Relationship Specialty Start Date End Date John Avina DO [address] [place] [phone] PCP - General Internal Medicine 06/10/24 documented as of this encounter
--- OUTSIDE RECORDS SUMMARY | 2025-02-18 17:01 | XMS_ITS | Encounter Summary ---
Author Organization [employer] Address [address] [place] [phone] Care Team Providers Care Application Support Administrator Name Role Phone John Avina DO Primary Care Provider [phone] Encounter Details Date Type Department Care Team (Late st Contact Info) Description 08/12/2024 Lab Requisition [facility] - Main Lab 299 [facility] [place] [address] Lincoln Crespo MD [address] [place] [address] Essential (primary) hypertension; Atherosclerotic heart disease of [place] coronary artery without angina pectoris; Anemia, unspecified; [...] Essential (primary) hypertension Atherosclerotic heart disease of [place] coronary artery without angina pectoris Anemia, unspecified Chronic kidney disease, unspecified Hypothyroidism, unspecified Hyperlipidemia, unspecified COMPREHENSIVE METABOLIC PANEL Routine 08/12/2024 4:49 AM EDT Essential (primary) hypertension Atherosclerotic heart disease of [place] coronary artery without angina pectoris Anemia, unspecified Chronic kidney disease, unspecified Hypothyroidism, unspecified Hyperlipidemia, unspecified documented in this encounter Results * (ABNORMAL) Comprehensive metabolic panel (08/12/2024 4:49 AM EDT) Sodium 140 133 - 145 mmol/L LAB CHEMISTRY METHOD 08/12/2024 11:43 AM [facility] LAB Potassium 4.4 3.5 - 5.5 mmol/L LAB CHEMISTRY METHOD 08/12/2024 11:43 AM [facility] LAB Chloride 104 96 - 110 mmol/L LAB CHEMISTRY METHOD 08/12/2024 11:43 AM [facility] LAB CO2 30 21 - 32 mmol/L LAB CHEMISTRY METHOD 08/12/2024 11:43 AM [facility] LAB Anion Gap 6 3 - 11 LAB CHEMISTRY METHOD 08/12/2024 11:43 AM [facility] LAB Glucose 81 70 - 100 mg/dL LAB CHEMISTRY METHOD 08/12/2024 11:43 AM [facility] LAB BUN 35(H) 5 - 25 mg/dL LAB CHEMISTRY METHOD 08/12/2024 11:43 AM [facility] LAB Creatinine 1.81(H) 0.50 - 1.10 mg/dL LAB CHEMISTRY METHOD 08/12/2024 11:43 AM [facility] LAB eGFR 29(L) >=60 mL/min/1. 73m2 LAB CHEMISTRY METHOD 08/12/2024 11:43 AM [facility] LAB Comment:Calculation based on the Chronic Kidney Disease Epidemiology Collaboration (CKD-EPI) equation refit without adjustment for race. BUN/Creatinine Ratio 19.3 LAB CHEMISTRY METHOD 08/12/2024 11:43 AM [facility] LAB Calcium 8.3(L) 8.5 - 10.5 mg/dL LAB CHEMISTRY METHOD 08/12/2024 11:43 AM [facility] LAB AST (SGOT) 7(L) 10 - 42 unit/L LAB CHEMISTRY METHOD 08/12/2024 11:43 AM [facility] LAB ALT (SGPT) 7(L) 10 - 60 unit/L LAB CHEMISTRY METHOD 08/12/2024 11:43 AM EDT [facility] LAB Alkaline Phosphatase 65 42 - 121 unit/L LAB CHEMISTRY METHOD 08/12/2024 11:43 AM T [facility] LAB Total Protein 5.5(L) 6.0 - 8.0 g/dL LAB CHEMISTRY METHOD 08/12/2024 11:43 AM [facility] LAB Albumin 2.3(L) 3.2 - 5.0 g/dL LAB CHEMISTRY METHOD 08/12/2024 11:43 AM T [facility] LAB Total Bilirubin 0.5 0.0 - 1.4 mg/dL LAB CHEMISTRY METHOD 08/12/2024 11:43 AM [facility] LAB Blood Venous blood specimen / Unknown Venipuncture / Unknown 08/12/2024 4:49 AM EDT 08/12/2024 10:25 AM EDT Lincoln Crespo MD LAB BLOOD ORDERABLES Final Resu lt [facility] LAB [address] [place] [address], * (ABNORMAL) Complete blood count (08/12/2024 4:49 AM EDT) WBC 6.8 4.8 - 10.8 K/mcL LAB HEMETOLOGY METHOD 08/12/2024 11:01 AM [facility] LAB RBC 2.20(L) 3.80 - 4.80 M/mcL LAB HEMETOLOGY METHOD 08/12/2024 11:01 AM [facility] LAB Hemoglobin 7.4(L) 11.5 - 16.0 g/dL LAB HEMETOLOGY METHOD 08/12/2024 11:01 AM [facility] LAB Hematocrit 23.3(L) 35.0 - 47.0 % LAB HEMETOLOGY METHOD 08/12/2024 11:01 AM EDT [facility] LAB MCV 108.4(H) 79.0 - 98.0 FL LAB HEMETOLOGY METHOD 08/12/2024 11:01 AM EDT [facility] LAB MCH 34.4(H) 27.0 - 32.0 pcg LAB HEMETOLOGY METHOD 08/12/2024 11:[facility] MCHC 31.8(L) 32.0 - 37.0 g/dL LAB HEMETOLOGY METHOD 08/12/2024 11:01 AM EDT [facility] LAB RDW 17.7(H) 11.0 - 15.0 % LAB HEMETOLOGY METHOD 08/12/2024 11:01 AM [facility] Platelets 203 130 - 400 K/mcL LAB HEMETOLOGY METHOD 08/12/2024 11:01 AM [facility] MPV 9.8 7.0 - 11.0 FL LAB HEMETOLOGY METHOD 08/12/2024 11:01 AM [facility] NRBC 0.0 <1.0 % LAB HEMETOLOGY METHOD 08/12/2024 11:01 AM [facility] NRBC Absolute 0.00 <0.10 K/mcL LAB HEMETOLOGY METHOD 08/12/2024 11:01 AM [facility] LAB Blood Venous blood specimen / Unknown Venipuncture / Unknown 08/12/2024 4:49 AM EDT 08/12/2024 10:25 AM EDT us Lincoln Crespo MD LAB BLOOD ORDERABLES Final Resu lt [facility] LAB [address] [place] [address], [place] [phone] documented in this encounter Visit Diagnoses Diagnosis Essential (primary) hypertension Unspecified essential hypertension Atherosclerotic heart disease of [place] coronary artery without angina pectoris Anemia, unspecified Chronic kidney disease, unspecified Hypothyroidism, unspecified Hyperlipidemia, unspecified documented in this encounter Care Teams Application Support Administrator Relationship Specialty Start Date End Date John Avina DO [address] [place] [phone] PCP - General Internal Medicine 06/10/24 documented as of this encounter
--- OUTSIDE RECORDS SUMMARY | 2025-02-18 17:01 | XMS_ITS | Clinical Summary ---
Author Organization [facility] Address [address] [place] [address] Phone Care Team Providers Care Applications Developer Name Role Phone Aniceto Emery MD Primary Care Provider [phone] Juliann Tse MD Unavailable [phone] Henrry Espino MD Unavailable Allergies Active [...] Smoking Tobacco: Former Cigarettes 1 23 [phone] Education Answer Date Recorded Are you interested [...] EST) SODIUM 138 135 - 145 mmol/L [facility] LIC# [id number] POTASSIUM 3.8 3.5 - 5.0 mmol/L [facility] LIC# [id number] CHLORIDE 104 98 - 108 mmol/L [facility] LIC# [id number] CO2 27 23 - 32 mmol/L [facility] LIC# [id number] BUN 28(H) 9 - 25 mg/dL [facility] LIC# [id number] CREATININE 1.26 0.7 - 1.3 mg/dL [facility] LIC# [id number] GLUCOSE 143(H) 70 - 100 mg/dL [facility] LIC# [id number] ALBUMIN 4.3 3.7 - 5.4 g/dL [facility] LIC# [id number] TOTAL PROTEIN 7.4 6.0 - 8.0 g/dL [facility] LIC# [id number] CALCIUM 9.8 8.8 - 10.5 mg/dL [facility] LIC# [id number] ALKALINE PHOSPHATASE 82 36 - 118 U/L [facility] LIC# [id number] TOTAL BILIRUBIN 0.5 0.2 - 1.2 mg/dL [facility] LIC# [id number] AST 15 9 - 30 U/L [facility] LIC# [id number] ALT 16 7 - 52 U/L [facility] LIC# [id number] GLOBULIN 3.1 2.3 - 4.2 g/dL [facility] LIC# [id number] EGFR 42 mL/min/1.7 3m2 [facility] LIC# [id number] Comment:Abnormal if <60 mL/m in/1.73m2. If patient is -[place]ian, multiply the result by 1.21. ANION GAP 7 5 - 17 mmol/L [facility] LIC# [id number] 06/04/2016 4:11 PM EST 06/04/2016 4:19 PM EST Henrry Espino MD LAB BLOOD ORDERABLES Final Result [facility] LIC# [id number] [address] [place] [address] from Last 3 Months or Most Recently Relevant to Health Maintenance Insurance PPO [place] [address] [place] [address] PPO PPO PPO PPO PPO [facility] PPO Advance Directives For more information, please contact: [phone] (9AM - 5PM [facility], Saturday-Saturday) Documents on File Type Date Recorded Patient Flatware Maker Expl anation Healthcare Proxy 06/04/2016 3:21 PM HCP Care Teams Applications Developer Relationship Specialty Start Date End Date Aniceto Emery MD PCP - General Internal Medicine 04/25/16 Henrry Espino MD [address] [place] [address] Multiple Myeloma [facility] [place] [address] [email or web address] PCP - Hematology/Oncology Medical Oncology 06/06/16 Juliann Tse MD [address] [place] [phone] [email or web address] Referring Physician Hematology and Oncology 04/25/16 Additional Source Comments The information contained in this document represents components of the legal health record. It is not the complete legal health record.[facility]
--- OUTSIDE RECORDS SUMMARY | 2025-02-18 17:01 | XMS_ITS | Encounter Summary ---
Author Organization [employer] Address [address] [place] [address] Care Team Providers Care Javascript Ui Developer Name Role Phone John Avina DO Primary Care Provider [phone] Encounter Details Date Type Department Care Team (Late st Contact Info) Description 09/05/2024 Lab Requisition [facility] - Main Lab [address] [place] [address] Lincoln Crespo MD [address] [place] [address] Essential (primary) hypertension; Atherosclerotic heart disease of [place] coronary artery without angina pectoris; Anemia, unspecified [...] Essential (primary) hypertension Atherosclerotic heart disease of [place] coronary artery without angina pectoris Anemia, unspecified COMPREHENSIVE METABOLIC PANEL Routine 09/07/2024 5:11 AM EDT Essential (primary) hypertension Atherosclerotic heart disease of [place] coronary artery without angina pectoris Anemia, unspecified documented in this encounter Results * (ABNORMAL) Comprehensive metabolic panel (09/07/2024 5:11 AM EDT) Sodium 144 133 - 145 mmol/L LAB CHEMISTRY METHOD 09/07/2024 2:49 PM EDT [facility] Potassium 3.9 3.5 - 5.5 mmol/L LAB CHEMISTRY METHOD 09/07/2024 2:49 PM [facility] LAB Chloride 109 96 - 110 mmol/L LAB CHEMISTRY METHOD 09/07/2024 2:49 PM [facility] CO2 23 21 - 32 mmol/L LAB CHEMISTRY METHOD 09/07/2024 2:49 PM [facility] Anion Gap 12(H) 3 - 11 LAB CHEMISTRY METHOD 09/07/2024 2:49 PM [facility] LAB Glucose 77 70 - 100 mg/dL LAB CHEMISTRY METHOD 09/07/2024 2:49 PM [facility] BUN 48(H) 5 - 25 mg/dL LAB CHEMISTRY METHOD 09/07/2024 2:49 PM [facility] Creatinine 1.93(H) 0.50 - 1.10 mg/dL LAB CHEMISTRY METHOD 09/07/2024 2:49 PM [facility] LAB eGFR 26(L) >=60 mL/min/1. 73m2 LAB CHEMISTRY METHOD 09/07/2024 2:49 PM [facility] LAB Comment:Calculation based on the Chronic Kidney Disease Epidemiology Collaboration (CKD-EPI) equation refit without adjustment for race. BUN/Creatinine Ratio 24.9 LAB CHEMISTRY METHOD 09/07/2024 2:49 PM [facility] Calcium 8.9 8.5 - 10.5 mg/dL LAB CHEMISTRY METHOD 09/07/2024 2:49 PM [facility] AST (SGOT) 6(L) 10 - 42 unit/L LAB CHEMISTRY METHOD 09/07/2024 2:49 PM [facility] ALT (SGPT) 14 10 - 60 unit/L LAB CHEMISTRY METHOD 09/07/2024 2:49 PM [facility] Alkaline Phosphatase 61 42 - 121 unit/L LAB CHEMISTRY METHOD 09/07/2024 2:49 PM [facility] Total Protein 6.1 6.0 [...] Resu lt [facility] [address] [place] [address], [place] [phone] * (ABNORMAL) Complete blood count (09/07/2024 5:11 [...] lt [facility] [address] [place] [address], [place] [phone] documented in this encounter Visit Diagnoses Diagnosis Essential (primary) hypertension Unspecified essential hypertension Atherosclerotic heart disease of [place] coronary artery without angina pectoris Anemia, unspecified documented in this encounter Care Teams Javascript Ui Developer Relationship Specialty Start Date End Date John Avina DO [address] [place] [phone] PCP - General Internal Medicine 06/10/24 documented as of this encounter
--- OUTSIDE RECORDS SUMMARY | 2025-02-18 17:01 | XMS_ITS | Encounter Summary ---
Author Organization [employer] Address [address] [place] [address] Care Team Providers Care [employer]bi Field Agent Name Role Phone John Avina DO Primary Care Provider [phone] Encounter Details Date Type Department Care Team (Late st Contact Info) Description 09/02/2024 Lab Requisition [facility] - Main Lab 299 [facility] [place] [address] Lincoln Crespo MD [address] [place] [address] Essential (primary) hypertension; Atherosclerotic heart disease of [place] coronary artery without angina pectoris; Anemia, unspecified; [...] Essential (primary) hypertension Atherosclerotic heart disease of [place] coronary artery without angina pectoris Anemia, unspecified Chronic kidney disease, unspecified BASIC METABOLIC PANEL Routine 09/03/2024 7:35 AM EDT Essential (primary) hypertension Atherosclerotic heart disease of [place] coronary artery without angina pectoris Anemia, unspecified [...] [facility] [address] [place] [address], * (ABNORMAL) Complete blood count (09/03/2024 7:35 AM EDT) [facility] Signature WBC 4.5(L) 4.8 - 10.8 K/mcL LAB HEMETOLOGY METHOD 09/03/2024 8:46 AM EDT [facility] RBC 2.60(L) 3.80 - 4.80 M/mcL LAB HEMETOLOGY METHOD 09/03/2024 8:46 AM EDT [facility] Hemoglobin 8.8(L) 11.5 - 16.0 g/dL LAB HEMETOLOGY METHOD 09/03/2024 8:46 AM [facility] LAB Hematocrit 27.0(L) 35.0 - 47.0 % LAB HEMETOLOGY [facility]/03/2024 8[facility] MCV 105.1(H) 79.0 - 98.0 FL LAB HEMETOLOGY METHOD 09/03/2024 8:46 [facility] MCH 34.2(H) 27.0 - 32.0 pcg LAB HEMETOLOGY METHOD 09/03/2024 8:46 AM [facility] MCHC 32.6 32.0 - 37.0 g/dL LAB HEMETOLOGY METHOD 09/03/2024 8:46 [facility] RDW 19.1(H) 11.0 - 15.0 % LAB HEMETOLOGY METHOD 09/03/2024 8:46 AM EDT [facility] Platelets 200 130 - 400 K/mcL LAB HEMETOLOGY METHOD 09/03/2024 8:46 AM EDT [facility] MPV 9.2 7.0 - 11.0 FL LAB HEMETOLOGY METHOD 09/03/2024 8:46 AM EDT [facility] NRBC 0.0 <1.0 % LAB HEMETOLOGY METHOD 09/03/2024 8:46 AM EDT [facility] NRBC Absolute 0.00 <0.10 K/mcL LAB HEMETOLOGY METHOD 09/03/2024 8:46 AM EDT [facility] Blood Venous blood specimen / Unknown Venipuncture / Unknown 09/03/2024 7:35 AM EDT 09/03/2024 8:28 AM EDT us Lincoln Crespo MD LAB BLOOD ORDERABLES Final Resu lt [facility] [address] [place] [address], documented in this encounter Visit Diagnoses Diagnosis Essential (primary) hypertension Unspecified essential hypertension Atherosclerotic heart disease of [place] coronary artery without angina pectoris Anemia, unspecified Chronic kidney disease, unspecified documented in this encounter Care Teams [employer]bi Field Agent Relationship Specialty Start Date End Date John Avina DO [address] [place] [phone] PCP - General Internal Medicine 06/10/24 documented as of this encounter
== END 2025-02-18 15:22 | disposition home or self-care (01) ==
LOC: HO.HCS 14:00
PROVIDERS: PCP Internal Medicine; Visit Provider Internal Medicine Cardiovascular Disease
DX: I50.20 Unspecified systolic (congestive) heart failure (principal); I25.10 Atherosclerotic heart disease of native coronary artery without angina pectoris
CPT/HCPCS: 99215; G2211

== ENCOUNTER → 2025-02-18 13:59 | Outpatient (BNVA) | payer MEDICARE, SELFPAY | PROVIDERS: PCP Internal Medicine; Visit Provider Internal Medicine Cardiovascular Disease | DX: I13.0 Hypertensive heart and chronic kidney disease with heart failure and stage 1 through stage 4 chronic kidney disease, or unspecified chronic kidney disease (principal); I50.20 Unspecified systolic (congestive) heart failure; N18.30 Chronic kidney disease, stage 3 unspecified; E11.22 Type 2 diabetes mellitus with diabetic chronic kidney disease; Z79.4 Long term (current) use of insulin; Z87.891 Personal history of nicotine dependence; I25.10 Atherosclerotic heart disease of native coronary artery without angina pectoris; Z95.5 Presence of coronary angioplasty implant and graft; Z79.01 Long term (current) use of anticoagulants; I34.0 Nonrheumatic mitral (valve) insufficiency | CPT/HCPCS: 99212 ==

== ENCOUNTER 2025-03-01 14:11 | Outpatient (REF) | payer MEDICARE, SELFPAY ==
[2025-03-01 14:58] LABS: Hematocrit 32.5 % (37.0-47.0); Hemoglobin 10.5 g/dl (12.0-16.0); Mean Corpuscular HGB Conc 32.3 g/dl (31.0-35.0); Mean Corpuscular Hemoglobin 32.6 pg (27.0-33.0); Mean Corpuscular Volume 100.9 fL (80.0-98.0); NRBC Abs Auto 0.000 X10*3/uL (0.0-0.012); NRBC Pct Auto 0.0 /100WBC (0.0-0.2); Platelet Count 137 X10*3/uL (160-400); Red Blood Count 3.22 X10*6/uL (4.20-5.50); White Blood Count 8.0 X10*3/uL (4.8-10.8)
[2025-03-01 15:00] LABS: INTERNATIONAL NORM RATIO 1.0 (0.9-1.1); Prothrombin Time 12.6 SEC (11.2-13.5)
[2025-03-01 16:19] LABS: Anion Gap 16 (12-20); Blood Urea Nitrogen 46 mg/dL (9-16); Calcium 10.2 mg/dL (8.4-10.2); Carbon Dioxide 30 mmol/L (22-29); Chloride 104 mmol/L (96-108); Estimated Glomerular Filt Rate 25; Potassium 3.7 mmol/L (3.3-5.1); Sodium 146 mmol/L (135-145)
--- OUTSIDE RECORDS SUMMARY | 2025-03-01 16:32 | XMS_ITS | Encounter Summary ---
Author Organization [employer] Address [address] [place] [address] Care Team Providers Care Landscape Crew Member Name Role Phone John Avina DO Primary Care Provider [phone] Encounter Details Date Type Department Care Team (Late st Contact Info) Description 08/19/2024 Lab Requisition [facility] - Main Lab 299 [facility] [place] [address] Lincoln Crespo MD [address] [place] [address] Essential (primary) hypertension; Atherosclerotic heart disease of ute coronary artery without angina pectoris; Anemia, [...] Essential (primary) hypertension Atherosclerotic heart disease of ute coronary artery without angina pectoris Anemia, unspecified Chronic kidney disease, unspecified BASIC METABOLIC PANEL Routine 08/20/2024 6:56 AM EDT Essential (primary) hypertension Atherosclerotic heart disease of ute coronary artery without angina pectoris Anemia, unspecified Chronic kidney disease, unspecified documented in this encounter Results * (ABNORMAL) Basic metabolic panel (08/20/2024 6:56 AM EDT) Sodium 140 133 - 145 mmol/L LAB CHEMISTRY METHOD 08/20/2024 10:[address] [facility] Potassium 4.1 3.5 - 5.5 mmol/L LAB CHEMISTRY METHOD 08/20/2024 10:[address] [facility] Chloride 107 96 - 110 mmol/L LAB CHEMISTRY METHOD 08/20/2024 10:[address] [facility] CO2 25 21 - 32 mmol/L LAB CHEMISTRY METHOD 08/20/2024 10:[address] [facility] Anion Gap 8 3 - 11 LAB CHEMISTRY METHOD 08/20/2024 10:[address] [facility] Glucose 100 70 - 100 mg/dL LAB CHEMISTRY METHOD 08/20/2024 10:[address] [facility] BUN 31(H) 5 - 25 mg/dL LAB CHEMISTRY METHOD 08/20/2024 10:[address] [facility] Creatinine 1.63(H) 0.50 - 1.10 mg/dL LAB CHEMISTRY METHOD 08/20/2024 10:[address] [facility] eGFR 32(L) >=60 mL/min/1. 73m2 LAB CHEMISTRY METHOD 08/20/2024 10:[address] [facility] Comment:Calculation based on the Chronic Kidney Disease Epidemiology Collaboration (CKD-EPI) equation refit without adjustment for race. BUN/Creatinine Ratio 19.0 LAB CHEMISTRY METHOD 08/20/2024 10:[address] [facility] Calcium 9.2 8.5 - 10.5 mg/dL LAB CHEMISTRY METHOD 08/20/2024 10:[address] [facility] Blood Venous blood specimen / Unknown Venipuncture / Unknown 08/20/2024 6:56 AM EDT 08/20/2024 9:28 AM EDT us Lincoln Crespo MD LAB BLOOD ORDERABLES Final Resu lt [facility] [address] [place] [address], * (ABNORMAL) Complete blood count (08/20/2024 6:56 AM EDT) [facility] WBC 8.6 4.8 - 10.8 K/mcL LAB HEMETOLOGY METHOD 08/20/2024 9:[address] [facility] RBC 3.30(L) 3.80 - 4.80 M/mcL LAB HEMETOLOGY METHOD 08/20[facility]24 [facility] Hemoglobin 10.9(L) 11.5 - 16.0 g/dL LAB HEMETOLOGY METHOD 08/20/2024 9:[address] [facility] Hematocrit 34.1(L) 35.0 - 47.0 % LAB HEMETOLOGY METHOD 08/20/2024 9:[address] [facility] MCV 102.1(H) 79.0 - 98.0 FL LAB HEMETOLOGY METHOD 08/20/2024 9:[address] [facility] MCH 32.6(H) 27.0 - 32.0 pcg LAB HEMETOLOGY METHOD 08/20/2024 9:[address] [facility] MCHC 32.0 32.0 - 37.0 g/dL LAB HEMETOLOGY METHOD 08/20/2024 9:[address] [facility] RDW 18.5(H) 11.0 - 15.0 % LAB HEMETOLOGY METHOD 08/20/2024 9:[address] [facility] Platelets 264 130 - 400 K/mcL LAB HEMETOLOGY METHOD 08/20/2024 9:[address] [facility] MPV 9.0 7.0 - 11.0 FL LAB HEMETOLOGY METHOD 08/20/2024 9:[address] [facility] NRBC 0.0 <1.0 % LAB HEMETOLOGY METHOD 08/20/2024 9:58 AM EDT [facility] NRBC Absolute 0.00 <0.10 K/mcL LAB HEMETOLOGY METHOD 08/20/2024 9:58 AM EDT [facility] Blood Venous blood specimen / Unknown Venipuncture / Unknown 08/20/2024 6:56 AM EDT 08/20/2024 9:29 AM EDT us Lincoln Crespo MD LAB BLOOD ORDERABLES Final Resu lt [facility] [address] [place] [address], documented in this encounter Visit Diagnoses Diagnosis Essential (primary) hypertension Unspecified essential hypertension Atherosclerotic heart disease of ute coronary artery without angina pectoris Anemia, unspecified Chronic kidney disease, unspecified documented in this encounter Care Teams Landscape Crew Member Relationship Specialty Start Date End Date John Avina DO [address] [place] [phone] PCP - General Internal Medicine 06/10/24 documented as of this encounter
--- OUTSIDE RECORDS SUMMARY | 2025-03-01 16:32 | XMS_ITS | Clinical Summary ---
Author Organization [address] Address [address] [place] [address] Phone Care Team Providers Care Cloth Sponger Name Role Phone FabriceJohn solares Primary Care [...] Essential (primary) hypertension Atherosclerotic heart disease of [place] coronary artery without angina pectoris Anemia, unspecified [...] CHEMISTRY METHOD 09/17/2024 11:11 AM EDT [facility] BUN 49(H) 5 - 25 mg/dL LAB CHEMISTRY METHOD 09/17/2024 11:11 AM EDT [facility] Creatinine 1.74(H) 0.50 - 1.10 mg/dL LAB CHEMISTRY METHOD 09/17/2024 11:11 AM EDT [facility] eGFR 30(L) >=60 mL/min/1. 73m2 LAB CHEMISTRY METHOD 09/17/2024 11:11 AM EDT [facility] Comment:Calculation based on the Chronic Kidney Disease Epidemiology Collaboration (CKD-EPI) equation refit without adjustment for race. BUN/Creatinine Ratio 28.2 LAB CHEMISTRY METHOD 09/17/2024 11:11 AM EDT [facility] Calcium 9.3 8.5 - 10.5 mg/dL LAB CHEMISTRY METHOD 09/17/2024 11:11 AM EDT [facility] Blood Venous blood specimen / Unknown Venipuncture / Unknown 09/17/2024 8:40 AM EDT 09/17/2024 10:05 AM EDT Lincoln Crespo MD LAB BLOOD ORDERABLES Final Resu lt [facility] [address] [place] [address], from Last 3 Months or Most Recently Relevant to Health Maintenance Insurance MEDICARE [facility] MEDICARE Care Teams Cloth Sponger Relationship Specialty Start Date End Date John Avina DO [address] [place] [phone] PCP - General Internal Medicine 06/10/24
--- OUTSIDE RECORDS SUMMARY | 2025-03-01 16:32 | XMS_ITS | Encounter Summary ---
Author Organization [facility] Address [address] [place] [address] Care Team Providers Care Firefighter Marine Name Role Phone John Avina DO Primary Care Provider [phone] Encounter Details Date Type Department Care Team (Late st Contact Info) Description 06/10/2024 Lab Requisition [facility] - Main Lab 299 [facility] [place] [address] Arianna Iraheta PA [address] [place], [place] [id number] Dysuria Social History Tobacco Use Types Packs/Day [...] ssp pneumoniae(A) RIC 06/12/2024 11:01 AM EST [facility] Comment: This is an edited [...] MICROBIOLOGY - GENERAL ORD ERABLES Final Result [facility] H[facility]PITAL LAB [address] [place] [address], documented in this encounter Visit Diagnoses Diagnosis Dysuria documented in this encounter Care Teams Firefighter Marine Relationship Specialty Start Date End Date John Avina DO [address] [place] [phone] PCP - General Internal Medicine 06/10/24 documented as of this encounter
--- OUTSIDE RECORDS SUMMARY | 2025-03-01 16:32 | XMS_ITS | Encounter Summary ---
Author Organization [employer] Address [address] [place] [address] Care Team Providers Care Food Mobile Driver Name Role Phone John Avina DO Primary Care Provider [phone] Encounter Details Date Type Department Care Team (Late st Contact Info) Description 08/22/2024 Lab Requisition [facility] - Main Lab 299 [facility] [place] [address] Lincoln Crespo MD [address] [place] [address] Essential (primary) hypertension; Atherosclerotic heart disease of [place] coronary artery without angina pectoris; Anemia, unspecified [...] Essential (primary) hypertension Atherosclerotic heart disease of [place]jas coronary artery without angina pectoris Anemia, unspecified COMPREHENSIVE METABOLIC PANEL Routine 08/24/2024 5:46 AM EDT Essential (primary) hypertension Atherosclerotic heart disease of [place]jas coronary artery without angina pectoris Anemia, unspecified documented in this encounter Results * (ABNORMAL) Comprehensive metabolic panel (08/24/2024 5:46 AM EDT) Sodium 144 133 - 145 mmol/L LAB CHEMISTRY METHOD 08/24/2024 9:15 AM EDT [facility] Potassium 4.0 3.5 - 5.5 mmol/L LAB CHEMISTRY METHOD 08/24/2024 9:15 AM [facility] Chloride 112(H) 96 - 110 mmol/L LAB CHEMISTRY METHOD 08/24/2024 9:15 AM [facility] CO2 23 21 - 32 mmol/L LAB CHEMISTRY METHOD 08/24/2024 9:15 AM [facility] Anion Gap 9 3 - 11 LAB CHEMISTRY METHOD 08/24/2024 9:15 AM [facility] Glucose 82 70 - 100 mg/dL LAB CHEMISTRY METHOD 08/24/2024 9:15 AM [facility] BUN 32(H) 5 - 25 mg/dL LAB CHEMISTRY METHOD 08/24/2024 9:15 AM [facility] Creatinine 1.88(H) 0.50 - 1.10 mg/dL LAB CHEMISTRY METHOD 08/24/2024 9:15 AM [facility] eGFR 27(L) >=60 mL/min/1. 73m2 LAB CHEMISTRY METHOD 08/24/2024 9:15 AM [facility] Comment:Calculation based on the Chronic Kidney Disease Epidemiology Collaboration (CKD-EPI) equation refit without adjustment for race. BUN/Creatinine Ratio 17.0 LAB CHEMISTRY METHOD 08/24/2024 9:15 AM [facility] Calcium 8.8 8.5 - 10.5 mg/dL LAB CHEMISTRY METHOD 08/24/2024 9:15 AM [facility] AST (SGOT) 13 10 - 42 unit/L LAB CHEMISTRY METHOD 08/24/2024 9:15 AM [facility] ALT (SGPT) 17 10 - 60 unit/L LAB CHEMISTRY METHOD 08/24/2024 9:15 AM [facility] Alkaline Phosphatase 69 42 - 121 unit/L LAB CHEMISTRY METHOD 08/24/2024 9:15 AM [facility] Total Protein 5.7(L) 6.0 - 8.0 g/dL LAB CHEMISTRY METHOD 08/24/2024 9:15 AM EDT [facility] Albumin 2.8(L) 3.2 - 5.0 g/dL LAB CHEMISTRY METHOD 08/24/2024 9:15 AM EDT [facility] Total Bilirubin 0.3 0.0 - 1.4 mg/dL LAB CHEMISTRY METHOD 08/24/2024 9:15 AM EDT [facility] Blood Venous blood specimen / Unknown Venipuncture / Unknown 08/24/2024 5:46 AM EDT 08/24/2024 8:26 AM EDT us Lincoln Crespo MD LAB BLOOD ORDERABLES Final Resu lt [facility] [address] [place] [address], [place] [phone] * (ABNORMAL) Complete blood count (08/24/2024 5:46 AM EDT) WBC 6.8 4.8 - 10.8 K/mcL LAB HEMETOLOGY METHOD 08/24/2024 8:45 AM [facility] RBC 2.50(L) 3.80 - 4.80 M/mcL LAB HEMETOLOGY METHOD 08/24/2024 8:45 AM [facility] Hemoglobin 8.6(L) 11.5 - 16.0 g/dL LAB HEMETOLOGY METHOD 08/24/2024 8:45 AM T [facility] Hematocrit 26.2(L) 35.0 - 47.0 % LAB HEMETOLOGY METHOD 08/24/2024 8:45 AM [facility] MCV 103.6(H) 79.0 - 98.0 FL LAB HEMETOLOGY METHOD 08/24/2024 8:45 AM EDT [facility] MCH 34.0(H) 27.0 - 32.0 pcg LAB HEMETOLOGY METHOD 08/24/2024 8:45 AM EDT [facility] MCHC 32.8 32.0 - 37.0 g/dL LAB HEMETOLOGY METHOD 08/24/2024 8:45 AM EDT [facility] RDW 18.7(H) 11.0 - 15.0 % LAB HEMETOLOGY METHOD 08/24/2024 8:45 AM EDT [facility] Platelets 192 130 - 400 K/mcL LAB HEMETOLOGY METHOD 08/24/2024 8:45 AM EDT [facility] MPV 9.3 7.0 - 11.0 FL LAB HEMETOLOGY METHOD 08/24/2024 8:45 AM EDT [facility] NRBC 0.0 <1.0 % LAB HEMETOLOGY METHOD 08/24/2024 8:45 AM EDT [facility] NRBC Absolute 0.00 <0.10 K/mcL LAB HEMETOLOGY METHOD 08/24/2024 8:45 AM EDT [facility] Blood Venous blood specimen / Unknown Venipuncture / Unknown 08/24/2024 5:46 AM EDT 08/24/2024 8:32 AM EDT us Lincoln Crespo MD LAB BLOOD ORDERABLES Final Resu lt [facility] [address] [place] [address], [place] [phone] documented in this encounter Visit Diagnoses Diagnosis Essential (primary) hypertension Unspecified essential hypertension Atherosclerotic heart disease of [place]jas coronary artery without angina pectoris Anemia, unspecified documented in this encounter Care Teams Food Mobile Driver Relationship Specialty Start Date End Date John Avina DO [address] [place] [phone] PCP - General Internal Medicine 06/10/24 documented as of this encounter
--- OUTSIDE RECORDS SUMMARY | 2025-03-01 16:32 | XMS_ITS | Encounter Summary ---
Author Organization [facility] Address [address] [place] [address] Care Team Providers Care Network And Threat Support Specialist Name Role Phone John Avina DO Primary Care Provider [phone] Encounter Details Date Type Department Care Team (Late st Contact Info) Description 08/17/2024 Lab Requisition [facility] - Main Lab 299 [facility] [place] [address] Lincoln Crespo MD [address] [place] [address] Other ulcerative colitis with rectal [...] AM EDT) WBC 7.1 4.8 - 10.8 K/[facility] LAB HEMETOLOGY METHOD 08/18/2024 11:09 AM EDT [facility] RBC 2.80(L) 3.80 - 4.80 M/[facility] LAB HEMETOLOGY METHOD 08/18/2024 11:09 AM [facility] Hemoglobin 9.2(L) 11.5 - 16.0 g/dL LAB HEMETOLOGY METHOD 08/18/2024 11:09 AM [facility] Hematocrit 28.6(L) 35.0 - 47.0 % LAB HEMETOLOGY METHOD 08/18/2024 11:09 AM [facility] MCV 103.6(H) 79.0 - 98.0 FL LAB HEMETOLOGY METHOD 08/18/2024 11:09 AM [facility] MCH 33.3(H) 27.0 - 32.0 pcg LAB HEMETOLOGY METHOD 08/18/2024 11:09 AM [facility] MCHC 32.2 32.0 - 37.0 g/dL LAB HEMETOLOGY METHOD 08/18/2024 11:09 AM [facility] RDW 18.5(H) 11.0 - 15.0 % LAB HEMETOLOGY METHOD 08/18/2024 11:09 AM [facility] Platelets 216 130 - 400 K/mcL LAB HEMETOLOGY METHOD 08/18/2024 11:09 AM [facility] MPV 9.2 7.0 - 11.0 FL LAB HEMETOLOGY METHOD 08/18/2024 11:09 AM [facility] NRBC 0.0 <1.0 % LAB HEMETOLOGY METHOD 08/18/2024 11:09 AM [facility] NRBC Absolute 0.00 <0.10 K/mcL LAB HEMETOLOGY METHOD 08/18/2024 11:09 AM [facility] Blood Venous blood specimen / Unknown Venipuncture / Unknown 08/18/2024 4:57 AM EDT 08/18/2024 10:57 AM EDT Lincoln Crespo MD LAB BLOOD ORDERABLES Final Resu lt [facility] LAB [address] [place] [address], documented in this encounter Visit Diagnoses Diagnosis Other ulcerative colitis with rectal bleeding (CMS/HCC V24, CMS/HCC V28) Anemia in chronic kidney disease (CODE) documented in this encounter Care Teams Network And Threat Support Specialist Relationship Specialty Start Date End Date John Avina DO [address] [place] [phone] PCP - General Internal Medicine 06/10/24 documented as of this encounter
--- OUTSIDE RECORDS SUMMARY | 2025-03-01 16:33 | XMS_ITS | Clinical Summary ---
Author Organization [facility] Address [address] [facility] [address] [place] [phone] Phone Care Team Providers Care Scene And Lighting Design Lecturer Name Role Phone Aniceto Emery MD Primary Care Provider [phone] Juliann Tse MD Unavailable [phone] Henrry Espino MD Unavailable [phone] Allergies Active Allergy Reactions Criticality Noted Date [...] Smoking Tobacco: Former Cigarettes 1 23 1 [phone] - [phone] Education Answer Date Recorded Are you interested [...] (#1) 2024 9, 02/05/2018 COVID-19 VACCINE (3 - 2024-2 6 season) 2024 08/08/2020, 07/16/2020 HEPATITIS [...] Associated Diagnosis Comments COMPREHENSIVE METABOLIC PANEL (CMP) Routine 06/04/2016 4:11 PM EST Multiple myeloma not having achieved remission from Last 3 Months or Most Recently Relevant to Health Maintenance Results * (ABNORMAL) Comprehensive metabolic panel (06/04/2016 4:11 PM EST) SODIUM 138 135 - 145 mmol/L [facility] LIC# [id number] POTASSIUM 3.8 3.5 - 5.0 mmol/L [facility] LIC# [id number] CHLORIDE 104 98 - 108 mmol/L [facility] LIC# [id number] CO2 27 23 - 32 mmol/L [facility] LIC# [id number] BUN 28(H) 9 - 25 mg/dL [facility] LIC# [id number] CREATININE 1.26 0.7 - 1.3 mg/dL [facility] LIC# [id number] GLUCOSE 143(H) 70 - 100 mg/dL [facility] LIC# [id number] ALBUMIN 4.3 3.7 - 5.4 g/dL [facility] LIC# [id number] TOTAL PROTEIN 7.4 6.0 - 8.0 g/dL [facility] LIC# [id number] CALCIUM 9.8 8.8 - 10.5 mg/dL [facility] LIC# [id number] ALKALINE PHOSPHATASE 82 36 - 118 U/L [facility] LIC# [id number] TOTAL BILIRUBIN 0.5 0.2 - 1.2 mg/dL [facility] LIC# [id number] AST 15 9 - 30 U/L [facility] LIC# [id number] ALT 16 7 - 52 U/L [facility] LIC# [id number] GLOBULIN 3.1 2.3 - 4.2 g/dL [facility] LIC# [id number] EGFR 42 mL/min/1.7 3m2 [facility] LIC# [id number] Comment:Abnormal if <60 mL/m in/1.73m2. If patient is -Cub[place], multiply the result by 1.21. ANION GAP 7 5 - 17 mmol/L [facility] LIC# [id number] 06/04/2016 4:11 PM EST 06/04/2016 4:19 PM EST us Henrry Espino MD LAB BLOOD BKR ORDERABLES Fi nal Result [facility] LIC# [id number] [address] [place] [address] from Last 3 Months or Most Recently Relevant to Health Maintenance Insurance [place] [address] [place] [address] [place] [address] [address] [place] [address] [address] [place] [address] [place] [place] [address] PPO [facility] PPO Advance Directives For more information, please contact: [phone] (9AM - 5PM [facility], Saturday-Saturday) Documents on File Type Date Recorded Patient Snack Stewardess Expl anation Healthcare Proxy 06/04/2016 3:21 PM HCP Care Teams Scene And Lighting Design Lecturer Relationship Specialty Start Date End Date Aniceto Emery MD PCP - General Internal Medicine 04/25/16 Henrry Espino MD [address] [place] [address] Multiple Myeloma [facility] [place] [address] [email or web address] PCP - Hematology/Oncology Medical Oncology 06/06/16 Juliann Tse MD [address] [place] [email or web address] Referring Physician Hematology and Oncology 04/25/16 Additional Source Comments The information contained in this document represents components of the legal health record. It is not the complete legal health record.[facility]
--- OUTSIDE RECORDS SUMMARY | 2025-03-01 16:33 | XMS_ITS | Clinical Summary ---
Author Organization [facility] Address [address] [place] [address] Phone Care Team Providers Care Lead Electrical Controls Engineer Name Role Phone FabriceJohn solares Primary Care [...] [facility] [address] [place] [address] Mejia Soler [...] [facility] [address] [place] [address] Mejia Soler MD [address] [facility] [address] [place] [address] Health Maintenance Due Date Last [...] 108.0 Magnesium 2.4 1.6 - 2.4 01/25/2025 [facility] Provider LAB BLOOD ORDERABLES Sarah l Result from Last 3 Months Insurance Medicare [facility] Medicare [facility] Care Teams Lead Electrical Controls Engineer Relationship Specialty Start Date End Date John Avina DO [address] [place] [address] PCP - General Internal Medicine 10/23/23
--- OUTSIDE RECORDS SUMMARY | 2025-03-01 16:33 | XMS_ITS | Encounter Summary ---
Author Organization [employer] Address [address] [place] [address] Care Team Providers Care Assistant Shift Supervisor Name Role Phone John Avina DO Primary Care Provider [phone] Encounter Details Date Type Department Care Team (Late st Contact Info) Description 09/05/2024 Lab Requisition [facility] - Main Lab 299 [facility] [place] [address] Lincoln Crespo MD [address] [place] [address] Essential (primary) hypertension; Atherosclerotic heart disease of [place] coronary artery without angina pectoris; Anemia, unspecified [...] Essential (primary) hypertension Atherosclerotic heart disease of [place] coronary artery without angina pectoris Anemia, unspecified COMPREHENSIVE METABOLIC PANEL Routine 09/07/2024 5:11 AM EDT Essential (primary) hypertension Atherosclerotic heart disease of [place] coronary artery without angina pectoris Anemia, unspecified documented in this encounter Results * (ABNORMAL) Comprehensive metabolic panel (09/07/2024 5:11 AM EDT) Sodium 144 133 - 145 mmol/L LAB CHEMISTRY METHOD 09/07/2024 2:49 PM EDT [facility] Potassium 3.9 3.5 - 5.5 [...] CHEMISTRY METHOD 09/07/2024 2:[address] [facility] Albumin 3.0(L) 3.2 - 5.0 g/dL LAB CHEMISTRY METHOD 09/07/2024 2:[address] [facility] Total Bilirubin 0.5 0.0 - 1.4 mg/dL LAB CHEMISTRY METHOD 09/07/2024 2:[address] [facility] Blood Venous blood specimen / Unknown Venipuncture / Unknown 09/07/2024 5:11 AM EDT 09/07/2024 2:11 PM EDT us Lincoln Crespo MD LAB BLOOD ORDERABLES Final Resu lt [facility] [address] [place] [address], [place] [phone] * (ABNORMAL) Complete blood count (09/07/2024 5:11 AM EDT) WBC 5.1 4.8 - 10.8 K/mcL LAB HEMETOLOGY METHOD 09/07/2024 3:[address] [facility] RBC 2.40(L) 3.80 - 4.80 M/mcL LAB HEMETOLOGY METHOD 09/07/2024 3:[address] [facility] Hemoglobin 8.2(L) 11.5 - 16.0 g/dL LAB HEMETOLOGY METHOD 09/07/2024 3:[address] [facility] Hematocrit 25.9(L) 35.0 - 47.0 % LAB HEMETOLOGY METHOD 09/07/2024 3:[address] [facility] MCV 107.9(H) 79.0 - 98.0 FL LAB HEMETOLOGY METHOD 09/07/2024 3:[address] [facility] MCH 34.2(H) 27.0 - 32.0 pcg LAB HEMETOLOGY METHOD 09/07/2024 3:[address] [facility] MCHC 31.7(L) 32.0 - 37.0 g/dL LAB HEMETOLOGY METHOD 09/07/2024 3:[address] [facility] RDW 19.3(H) 11.0 - 15.0 % LAB HEMETOLOGY METHOD 09/07/2024 3:[address] [facility] Platelets 176 130 - 400 K/mcL LAB HEMETOLOGY METHOD 09/07/2024 3:[address] [facility] MPV 9.0 7.0 - 11.0 FL LAB HEMETOLOGY METHOD 09/07/2024 3:[address] [facility] NRBC 0.0 <1.0 % LAB HEMETOLOGY METHOD 09/07/2024 3:[address] [facility] NRBC Absolute 0.00 <0.10 K/mcL LAB HEMETOLOGY METHOD 09/07/2024 3:[address] [facility] Blood Venous blood specimen / Unknown Venipuncture / Unknown 09/07/2024 5:11 AM EDT 09/07/2024 12:03 PM EDT us Lincoln Crespo MD LAB BLOOD ORDERABLES Final Resu lt [facility] [address] [place] [address], [place] [phone] documented in this encounter Visit Diagnoses Diagnosis Essential (primary) hypertension Unspecified essential hypertension Atherosclerotic heart disease of [place] coronary artery without angina pectoris Anemia, unspecified documented in this encounter Care Teams Assistant Shift Supervisor Relationship Specialty Start Date End Date John Avina DO [address] [place] [phone] PCP - General Internal Medicine 06/10/24 documented as of this encounter
--- OUTSIDE RECORDS SUMMARY | 2025-03-01 16:33 | XMS_ITS | Encounter Summary ---
Author Organization [facility] Address [address] [place] [address] Care Team Providers Care Trampoline Team Coach Name Role Phone John Avina DO Primary Care Provider [phone] Encounter Details Date Type Department Care Team (Late st Contact Info) Description 08/16/2024 Lab Requisition [facility] - Main Lab 299 [facility] [place] [address] Lincoln Crespo MD [address] [place] [address] Other ulcerative colitis with rectal [...] WBC 7.2 4.8 - 10.8 K/[facility] LAB HEMETOLOGY METHOD 08/16/2024 10:41 AM EDT [facility] LAB RBC 2.90(L) 3.80 - 4.80 M/[facility] LAB HEMETOLOGY METHOD 08/16/2024 10:41 AM [place] [...] ORDERABLES Final Resu lt [facility] HOSPITAL LAB [address] [place] [address], documented in this encounter Visit Diagnoses Diagnosis Other ulcerative colitis with rectal bleeding (CMS/HCC V24, CMS/HCC V28) Anemia in chronic kidney disease (CODE) documented in this encounter Care Teams Trampoline Team Coach Relationship Specialty Start Date End Date John Avina DO [address] [place] [phone] PCP - General Internal Medicine 06/10/24 documented as of this encounter
--- OUTSIDE RECORDS SUMMARY | 2025-03-01 16:33 | XMS_ITS | Encounter Summary ---
Author Organization [facility] Address [address] [place] [address] Care Team Providers Care Principal Engineer Name Role Phone John Avina DO Primary Care Provider Encounter Details Date Type Department Care Team (Late st Contact Info) Description 08/15/[address] [facility] - Main Lab 299 [facility] [place] [address] Lincoln Crespo MD [address] [place] [address] Other ulcerative colitis with rectal [...] AM EDT) WBC 6.7 4.8 - 10.8 K/[facility] LAB HEMETOLOGY METHOD 08/15/2024 11:29 AM EDT [facility] LAB RBC 3.10(L) 3.80 - 4.80 M/[facility] LAB HEMETOLOGY METHOD 08/15/2024 11:[address] [...] [facility] HOSPITAL LAB [address] [place] [address], documented in this encounter Visit Diagnoses Diagnosis Other ulcerative colitis with rectal bleeding (CMS/HCC V24, CMS/HCC V28) Anemia in chronic kidney disease (CODE) documented in this encounter Care Teams Principal Engineer Relationship Specialty Start Date End Date John Avina DO [address] [place] [phone] PCP - General Internal Medicine 06/10/24 documented as of this encounter
--- OUTSIDE RECORDS SUMMARY | 2025-03-01 16:33 | XMS_ITS | Encounter Summary ---
Author Organization [employer] Address [address] [place] [address] Care Team Providers Care Farm Demonstrator Name Role Phone John Avina DO Primary Care Provider [phone] Encounter Details Date Type Department Care Team (Late st Contact Info) Description 08/14/2024 Lab Requisition [facility] - Main Lab 299 [facility] [place] [address] Lincoln Crespo MD [address] [place] [address] Essential (primary) hypertension; Atherosclerotic heart [...] LAB CHEMISTRY METHOD 08/17/2024 1:27 PM EDT [facility] LAB Potassium 3.8 [...] LAB CHEMISTRY METHOD 08/17/2024 1:27 PM EDT [facility] LAB Albumin 2.4(L) 3.2 - 5.0 g/dL LAB CHEMISTRY METHOD 08/17/2024 1:27 PM EDT [facility] LAB Total Bilirubin 0.4 0.0 - 1.4 mg/dL LAB CHEMISTRY METHOD 08/17/2024 1:27 PM EDT [facility] LAB Blood Venous blood specimen / Unknown Venipuncture / Unknown 08/17/2024 5:41 AM EDT 08/17/2024 10:15 AM EDT us Lincoln Crespo MD LAB BLOOD ORDERABLES Final Resu lt [facility] LAB [address] [place] [address], * (ABNORMAL) Complete blood count (08/17/2024 5:41 AM EDT) WBC 7.2 4.8 - 10.8 K/mcL LAB HEMETOLOGY METHOD 08/17/2024 11:[address] [facility] LAB RBC 2.90(L) 3.80 - 4.80 M/mcL LAB HEMETOLOGY METHOD 08/17/2024 11:28 AM EDT [facility] LAB Hemoglobin 9.6(L) 11.5 - 16.0 g/dL LAB HEMETOLOGY METHOD 08/17/2024 11:28 AM EDT [facility] LAB Hematocrit 29.9(L) 35.0 - 47.0 % LAB [facility]OLOGY [facility] MCV 103.5(H) 79.0 - 98.0 FL LAB HEMETOLOGY METHOD 08/17/2024 11:28 AM EDT [facility] LAB MCH 33.2(H) 27.0 - 32.0 [...] Resu lt [facility] LAB [address] [place] [address], documented in this encounter Visit Diagnoses Diagnosis Essential (primary) hypertension Unspecified essential hypertension Atherosclerotic heart disease of [place] coronary artery without angina pectoris Anemia, unspecified documented in this encounter Care Teams Farm Demonstrator Relationship Specialty Start Date End Date John Avina DO [address] [place] [phone] PCP - General Internal Medicine 06/10/24 documented as of this encounter
--- OUTSIDE RECORDS SUMMARY | 2025-03-01 16:33 | XMS_ITS | Encounter Summary ---
Author Organization [employer] Address [address] [place] [phone] Care Team Providers Care Extension Edger Name Role Phone John Avina DO Primary Care Provider Encounter Details Date Type Department Care Team (Late st Contact Info) Description 09/18/2024 Lab Requisition [facility] - Main Lab [address] [facility] [place] [address] Lincoln Crespo MD [address] [place] [address] Essential (primary) hypertension; Atherosclerotic heart disease of [place] coronary artery without angina pectoris; Anemia, unspecified [...] Unspecified essential hypertension Atherosclerotic heart disease of [place] coronary artery without angina pectoris Anemia, unspecified documented in this encounter Care Teams Extension Edger Relationship Specialty Start Date End Date John Avina DO [address] [place] [phone] PCP - General Internal Medicine 06/10/24 documented as of this encounter
--- OUTSIDE RECORDS SUMMARY | 2025-03-01 16:33 | XMS_ITS | Encounter Summary ---
Author Organization [employer] [facility] Address [address] [place] [address] Care Team Providers Care Field Cane Scale Clerk Name Role Phone John Avina DO Primary Care Provider [phone] Encounter Details Date Type Department Care Team (Late st Contact Info) Description 09/02/2024 Lab Requisition [facility] - Main Lab 299 [facility] [place] [address] Lincoln Crespo MD [address] [place] [address] Essential (primary) hypertension; Atherosclerotic heart disease of [place] coronary artery without angina pectoris; Anemia, unspecified; [...] Essential (primary) hypertension Atherosclerotic heart disease of [place] coronary artery without angina pectoris Anemia, unspecified Chronic kidney disease, unspecified BASIC METABOLIC PANEL Routine 09/03/2024 7:35 AM EDT Essential (primary) hypertension Atherosclerotic heart disease of [place] coronary artery without angina pectoris Anemia, unspecified Chronic kidney disease, unspecified documented in this encounter Results * (ABNORMAL) Basic metabolic panel (09/03/2024 7:35 AM EDT) Sodium 142 133 - 145 mmol/L LAB CHEMISTRY METHOD 09/03/2024 9:20 AM [facility] LAB Potassium 4.0 3.5 - 5.5 mmol/L LAB CHEMISTRY METHOD 09/03/2024 9:20 AM [facility] LAB Chloride 112(H) 96 - 110 mmol/L LAB CHEMISTRY METHOD 09/03/2024 9:20 AM [facility] LAB CO2 22 21 - 32 mmol/L LAB CHEMISTRY METHOD 09/03/2024 9:20 AM [facility] LAB Anion Gap 8 3 - 11 LAB CHEMISTRY METHOD 09/03/2024 9:20 AM [facility] LAB Glucose 90 70 - 100 mg/dL LAB CHEMISTRY METHOD 09/03/2024 9:20 AM [facility] LAB BUN 48(H) 5 - 25 mg/dL LAB CHEMISTRY METHOD 09/03/2024 9:20 AM [facility] LAB Creatinine 1.72(H) 0.50 - 1.10 mg/dL LAB CHEMISTRY METHOD 09/03/2024 9:20 AM [facility] LAB eGFR 30(L) >=60 mL/min/1. 73m2 LAB CHEMISTRY METHOD 09/03/2024 9:20 AM [facility] LAB Comment:Calculation based on the Chronic Kidney Disease Epidemiology Collaboration (CKD-EPI) equation refit without adjustment for race. BUN/Creatinine Ratio 27.9 LAB CHEMISTRY METHOD 09/03/2024 9:20 AM [facility] LAB Calcium 9.3 8.5 - 10.5 mg/dL LAB CHEMISTRY METHOD 09/03/2024 9:20 AM [facility] LAB Blood Venous blood specimen / Unknown Venipuncture / Unknown 09/03/2024 7:35 AM EDT 09/03/2024 8:28 AM EDT us Lincoln Crespo MD LAB BLOOD ORDERABLES Final Resu lt [facility] LAB [address] [place] [address], * (ABNORMAL) Complete blood count (09/03/2024 7:35 AM EDT) [facility] Signature WBC 4.5(L) 4.8 - 10.8 K/mcL LAB HEMETOLOGY METHOD 09/03/2024 8:46 AM EDT [facility] LAB RBC 2.60(L) 3.80 - 4.80 M/mcL LAB HEMETOLOGY METHOD 09/03/2024 8:46 AM EDT [facility] LAB Hemoglobin 8.8(L) 11.5 - 16.0 g/dL LAB HEMETOLOGY METHOD 09/03/2024 8:46 AM [facility] LAB Hematocrit 27.0(L) 35.0 - 47.0 % LAB HEMETOLOGY METHOD 09/03/2024 8:[facility] MCV 105.1(H) 79.0 - 98.0 FL LAB HEMETOLOGY METHOD 09/03/2024 8:46 [facility] MCH 34.2(H) 27.0 - 32.0 pcg LAB HEMETOLOGY METHOD 09/03/2024 8:46 AM [facility] LAB MCHC 32.6 32.0 - 37.0 g/dL LAB HEMETOLOGY METHOD 09/03/2024 8:46 [facility] RDW 19.1(H) 11.0 - 15.0 % LAB HEMETOLOGY METHOD 09/03/2024 8:46 AM EDT [facility] LAB Platelets 200 130 - 400 K/mcL LAB HEMETOLOGY METHOD 09/03/2024 8:46 AM EDT [facility] LAB MPV 9.2 7.0 - 11.0 FL LAB HEMETOLOGY METHOD 09/03/2024 8:46 AM EDT [facility] NRBC 0.0 <1.0 % LAB HEMETOLOGY METHOD 09/03/2024 8:46 AM EDT [facility] LAB NRBC Absolute 0.00 <0.10 K/mcL LAB HEMETOLOGY METHOD 09/03/2024 8:46 AM EDT [facility] LAB Blood Venous blood specimen / Unknown Venipuncture / Unknown 09/03/2024 7:35 AM EDT 09/03/2024 8:28 AM EDT us Lincoln Crespo MD LAB BLOOD ORDERABLES Final Resu lt [facility] ([facility] LAB [address] [place] [address], documented in this encounter Visit Diagnoses Diagnosis Essential (primary) hypertension Unspecified essential hypertension Atherosclerotic heart disease of [place] coronary artery without angina pectoris Anemia, unspecified Chronic kidney disease, unspecified documented in this encounter Care Teams Field Cane Scale Clerk Relationship Specialty Start Date End Date John Avina DO [address] [place] [phone] PCP - General Internal Medicine 06/10/24 documented as of this encounter
--- OUTSIDE RECORDS SUMMARY | 2025-03-01 16:33 | XMS_ITS | Encounter Summary ---
Author Organization [employer] [facility] Address [address] [place] [address] Care Team Providers Care Straightedge Machine Operator Helper Name Role Phone John Avina DO Primary Care Provider Encounter Details Date Type Department Care Team (Late st Contact Info) Description 09/14/2024 Lab Requisition [facility] - Main Lab [address] [facility] [place] [address] Lincoln Crespo MD [address] [place] [address] Essential (primary) hypertension; Atherosclerotic heart disease of [place] coronary artery without angina pectoris; Anemia, unspecified [...] Essential (primary) hypertension Atherosclerotic heart disease of [place] coronary artery without angina pectoris Anemia, unspecified COMPREHENSIVE METABOLIC PANEL Routine 09/15/2024 7:05 AM EDT Essential (primary) hypertension Atherosclerotic heart disease of [place] coronary artery without angina pectoris Anemia, unspecified documented in this encounter Results * (ABNORMAL) Complete blood count (09/15/2024 7:07 AM EDT) WBC 5.1 4.8 - 10.8 K/mcL LAB HEMETOLOGY METHOD 09/15/2024 12:07 PM EDT [facility] ([facility]) [facility] LAB RBC 2.30(L) 3.80 - 4.80 M/mcL LAB HEMETOLOGY METHOD 09/15/2024 12:07 PM [facility] LAB Hemoglobin 8.0(L) 11.5 - 16.0 g/dL LAB HEMETOLOGY METHOD 09/15/2024 12:07 PM [facility] LAB Hematocrit 24.4(L) 35.0 - 47.0 % LAB HEMETOLOGY METHOD 09/15/2024 12:07 PM [facility] LAB MCV 107.0(H) 79.0 - 98.0 FL LAB HEMETOLOGY METHOD 09/15/2024 12:07 PM [facility] LAB MCH 35.1(H) 27.0 - 32.0 pcg LAB HEMETOLOGY METHOD 09/15/2024 12:07 PM [facility] LAB MCHC 32.8 32.0 - 37.0 g/dL LAB HEMETOLOGY METHOD 09/15/2024 12:07 PM [facility] LAB RDW 19.0(H) 11.0 - 15.0 % LAB HEMETOLOGY METHOD 09/15/2024 12:07 PM [facility] LAB Platelets 141 130 - 400 K/mcL LAB HEMETOLOGY METHOD 09/15/2024 12:07 PM [facility] LAB MPV 9.2 7.0 - 11.0 FL LAB HEMETOLOGY METHOD 09/15/2024 12:07 PM [facility] LAB NRBC 0.0 <1.0 % LAB HEMETOLOGY METHOD 09/15/2024 12:07 PM [facility] LAB NRBC Absolute 0.00 <0.10 K/mcL LAB HEMETOLOGY METHOD 09/15/2024 12:07 PM [facility] LAB Blood Venous blood specimen / Unknown Venipuncture / Unknown 09/15/2024 7:07 AM EDT 09/15/2024 10:49 AM EDT us Lincoln Crespo MD LAB BLOOD ORDERABLES Final Resu lt [facility] LAB [address] [place] [address], [place] [phone] * (ABNORMAL) Comprehensive metabolic panel (09/15/2024 7:05 AM EDT) Sodium 143 133 - 145 mmol/L LAB CHEMISTRY METHOD 09/15/2024 12:43 PM [facility] LAB Potassium 3.6 3.5 - 5.5 mmol/L LAB CHEMISTRY METHOD 09/15/2024 12:43 PM [facility] LAB Chloride 110 96 - 110 mmol/L LAB CHEMISTRY METHOD 09/15/2024 12:43 PM [facility] LAB CO2 22 21 - 32 mmol/L LAB CHEMISTRY METHOD 09/15/2024 12:43 PM [facility] LAB Anion Gap 11 3 - 11 LAB CHEMISTRY METHOD 09/15/2024 12:43 PM [facility] LAB Glucose 90 70 - 100 mg/dL LAB CHEMISTRY METHOD 09/15/2024 12:43 PM [facility] LAB BUN 49(H) 5 - 25 mg/dL LAB CHEMISTRY METHOD 09/15/2024 12:43 PM [facility] LAB Creatinine 1.80(H) 0.50 - 1.10 mg/dL LAB CHEMISTRY METHOD 09/15/2024 12:43 PM [facility] LAB eGFR 29(L) >=60 mL/min/1. 73m2 LAB CHEMISTRY METHOD 09/15/2024 12:43 PM [facility] LAB Comment:Calculation based on the Chronic Kidney Disease Epidemiology Collaboration (CKD-EPI) equation refit without adjustment for race. BUN/Creatinine Ratio 27.2 LAB CHEMISTRY METHOD 09/15/2024 12:43 PM EDT [facility] LAB Calcium 8.9 8.5 - 10.5 mg/dL LAB CHEMISTRY METHOD 09/15/2024 12:43 PM T [facility] LAB AST (SGOT) 6(L) 10 - 42 unit/L LAB CHEMISTRY METHOD 09/15/2024 12:43 PM [facility] LAB ALT (SGPT) 15 10 - 60 unit/L LAB CHEMISTRY METHOD 09/15/2024 12:43 PM T [facility] LAB Alkaline Phosphatase 56 42 - 121 unit/L LAB CHEMISTRY METHOD 09/15/2024 12:43 PM [facility] LAB Total Protein 6.0 6.0 - 8.0 g/dL LAB CHEMISTRY METHOD 09/15/2024 12:43 PM [facility] LAB Albumin 3.0(L) 3.2 - 5.0 g/dL LAB CHEMISTRY METHOD 09/15/2024 12:43 PM [facility] LAB Total Bilirubin 0.5 0.0 - 1.4 mg/dL LAB CHEMISTRY METHOD 09/15/2024 12:43 PM [facility] LAB Blood Venous blood specimen / Unknown Venipuncture / Unknown 09/15/2024 7:05 AM EDT 09/15/2024 10:50 AM EDT us Lincoln Crespo MD LAB BLOOD ORDERABLES Final Resu lt [facility] LAB [address] [place] [address], documented in this encounter Visit Diagnoses Diagnosis Essential (primary) hypertension Unspecified essential hypertension Atherosclerotic heart disease of [place] coronary artery without angina pectoris Anemia, unspecified documented in this encounter Care Teams Straightedge Machine Operator Helper Relationship Specialty Start Date End Date John Avina DO [address] [place] [phone] PCP - General Internal Medicine 06/10/24 documented as of this encounter
--- OUTSIDE RECORDS SUMMARY | 2025-03-01 16:33 | XMS_ITS | Encounter Summary ---
Author Organization [employer] Address [address] [place] [address] Care Team Providers Care Mailroom Clerk Name Role Phone John Avina DO Primary Care Provider [phone] Encounter Details Date Type Department Care Team (Late st Contact Info) Description 09/09/2024 Lab Requisition [facility] - Main Lab 299 [facility] [place] [address] Lincoln Crespo MD [address] [place] [address] Essential (primary) hypertension; Atherosclerotic heart disease of [place] coronary artery without angina pectoris; Anemia, unspecified; [...] Essential (primary) hypertension Atherosclerotic heart disease of [place] coronary artery without angina pectoris Anemia, unspecified Chronic kidney disease, unspecified BASIC METABOLIC PANEL Routine 09/10/2024 6:12 AM EDT Essential (primary) hypertension Atherosclerotic heart disease of [place] coronary artery without angina pectoris Anemia, unspecified Chronic kidney disease, unspecified documented in this encounter Results * (ABNORMAL) Basic metabolic panel (09/10/2024 6:12 AM EDT) Sodium 146(H) 133 - 145 mmol/L LAB CHEMISTRY METHOD 09/10/2024 10:04 AM [facility] LAB Potassium 4.0 3.5 - 5.5 mmol/L LAB CHEMISTRY METHOD 09/10/2024 10:04 AM [facility] LAB Chloride 113(H) 96 - 110 mmol/L LAB CHEMISTRY METHOD 09/10/2024 10:04 AM [facility] LAB CO2 26 21 - 32 mmol/L LAB CHEMISTRY METHOD 09/10/2024 10:04 AM [facility] LAB Anion Gap 7 3 - 11 LAB CHEMISTRY METHOD 09/10/2024 10:04 AM [facility] LAB Glucose 84 70 - 100 mg/dL LAB CHEMISTRY METHOD 09/10/2024 10:04 AM [facility] LAB BUN 44(H) 5 - 25 mg/dL LAB CHEMISTRY METHOD 09/10/2024 10:04 AM [facility] LAB Creatinine 2.03(H) 0.50 - 1.10 mg/dL LAB CHEMISTRY METHOD 09/10/2024 10:04 AM [facility] LAB eGFR 25(L) >=60 mL/min/1. 73m2 LAB CHEMISTRY METHOD 09/10/2024 10:04 AM [facility] LAB Comment:Calculation based on the Chronic Kidney Disease Epidemiology Collaboration (CKD-EPI) equation refit without adjustment for race. BUN/Creatinine Ratio 21.7 LAB CHEMISTRY METHOD 09/10/2024 10:04 AM [facility] LAB Calcium 8.8 8.5 - 10.5 mg/dL LAB CHEMISTRY METHOD 09/10/2024 10:04 AM [facility] LAB Blood Venous blood specimen / Unknown Venipuncture / Unknown 09/10/2024 6:12 AM EDT 09/10/2024 9:16 AM EDT us Lincoln Crespo MD LAB BLOOD ORDERABLES Final Resu lt [facility] LAB [address] [place] [address], * (ABNORMAL) Complete blood count (09/10/2024 6:12 AM EDT) [facility] WBC 5.2 4.8 - 10.8 K/mcL LAB HEMETOLOGY METHOD 09/10/2024 9:33 AM EDT [facility] LAB RBC 2.50(L) 3.80 - 4.80 M/mcL LAB HEMETOLOGY METHOD 09/10/2024 9:33 AM EDT [facility] LAB Hemoglobin 8.6(L) 11.5 - 16.0 g/dL LAB HEMETOLOGY METHOD 09/10/2024 9:33 AM EDT [facility] LAB Hematocrit 26.4(L) 35.0 - 47.0 % LAB HEMETOLOGY METHOD [facility]/10[facility]24 [facility] MCV 106.5(H) 79.0 - 98.0 FL LAB HEMETOLOGY METHOD 09/10/2024 9:33 AM EDT [facility] LAB MCH 34.7(H) 27.0 - 32.0 pcg LAB HEMETOLOGY METHOD 09/10/2024 9:[facility] MCHC 32.6 32.0 - 37.0 g/dL LAB HEMETOLOGY METHOD 09/10/2024 9:[facility] RDW 19.2(H) 11.0 - 15.0 % LAB HEMETOLOGY METHOD 09/10/2024 9:33 AM EDT [facility] LAB Platelets 161 130 - 400 K/mcL LAB HEMETOLOGY METHOD 09/10/2024 9:33 AM EDT [facility] LAB MPV 9.3 7.0 - 11.0 FL LAB HEMETOLOGY METHOD 09/10/2024 9:33 AM EDT [facility] NRBC 0.0 <1.0 % LAB HEMETOLOGY METHOD 09/10/2024 9:33 AM EDT [facility] LAB NRBC Absolute 0.00 <0.10 K/mcL LAB HEMETOLOGY METHOD 09/10/2024 9:33 AM EDT [facility] LAB Blood Venous blood specimen / Unknown Venipuncture / Unknown 09/10/2024 6:12 AM EDT 09/10/2024 9:16 AM EDT us Lincoln Crespo MD LAB BLOOD ORDERABLES Final Resu lt [facility] ([facility]) [facility] LAB [address] [place] [address], documented in this encounter Visit Diagnoses Diagnosis Essential (primary) hypertension Unspecified essential hypertension Atherosclerotic heart disease of [place] coronary artery without angina pectoris Anemia, unspecified Chronic kidney disease, unspecified documented in this encounter Care Teams Mailroom Clerk Relationship Specialty Start Date End Date John Avina DO [address] [place] [phone] PCP - General Internal Medicine 06/10/24 documented as of this encounter
--- OUTSIDE RECORDS SUMMARY | 2025-03-01 16:33 | XMS_ITS | Encounter Summary ---
Author Organization [employer] Address [address] [place] [address] Care Team Providers Care Director Of Institutional Giving Name Role Phone John Avina DO Primary Care Provider [phone] Encounter Details Date Type Department Care Team (Late st Contact Info) Description 08/30/2024 Lab Requisition [facility] - Main Lab [address] [facility] [place] [address] Lincoln Crespo MD [address] [place] [address] Essential (primary) hypertension; Atherosclerotic heart disease of [place] coronary artery without angina pectoris; Anemia, [...] Essential (primary) hypertension Atherosclerotic heart disease of [place] coronary artery without angina pectoris Anemia, unspecified COMPREHENSIVE METABOLIC PANEL Routine 08/31/2024 5:18 AM EDT Essential (primary) hypertension Atherosclerotic heart disease of [place] coronary artery without angina pectoris Anemia, unspecified documented in this encounter Results * (ABNORMAL) Comprehensive metabolic panel (08/31/2024 5:18 AM EDT) Sodium 141 133 - 145 mmol/L LAB CHEMISTRY METHOD 08/31/2024 1:17 PM EDT [facility] Potassium 4.7 3.5 - 5.5 mmol/L [...] LAB CHEMISTRY METHOD 08/31/2024 1:17 PM EDT [facility] LAB Total Protein 6.6 6.0 - 8.0 g/dL LAB CHEMISTRY METHOD 08/31/2024 1:17 PM EDT [facility] LAB Albumin 3.1(L) 3.2 - 5.0 g/dL LAB CHEMISTRY METHOD 08/31/2024 1:17 PM EDT [facility] LAB Total Bilirubin 0.4 0.0 - 1.4 mg/dL LAB CHEMISTRY METHOD 08/31/2024 1:17 PM EDT [facility] LAB Blood Venous blood specimen / Unknown 08/31/2024 5:18 AM EDT 08/31/2024 11:34 AM EDT [facility] LAB - 08/31/2024 1:17 PM EDT Short sample, interpret results with caution us Lincoln Crespo MD LAB BLOOD ORDERABLES Final Resu lt [facility] [address] [place] [address], [place] [phone] * (ABNORMAL) Complete blood count (08/31/2024 5:18 AM EDT) WBC 5.2 4.8 - 10.8 K/mcL LAB HEMETOLOGY METHOD 08/31/2024 1:43 PM EDT [facility] LAB RBC 2.50(L) 3.80 - 4.80 M/mcL LAB HEMETOLOGY METHOD 08/31/2024 1:43 PM EDT [facility] LAB Hemoglobin 8.6(L) 11.5 - 16.0 g/dL LAB HEMETOLOGY METHOD 08/31/2024 1:43 PM EDT [facility] LAB Hematocrit 27.1(L) 35.0 - 47.0 % LAB HEMETOLOGY METHOD 08/31/2024 1:43 PM EDT [facility] LAB MCV 106.7(H) 79.0 - 98.0 FL LAB HEMETOLOGY METHOD 08/31/2024 1:43 PM EDT [facility] LAB MCH 33.9(H) 27.0 - 32.0 pcg LAB HEMETOLOGY METHOD 08/31/2024 1:43 PM EDT [facility] LAB MCHC 31.7(L) 32.0 - 37.0 g/dL LAB HEMETOLOGY METHOD 08/31/2024 1:43 PM EDT [facility] LAB RDW 19.2(H) 11.0 - 15.0 % LAB HEMETOLOGY METHOD 08/31/2024 1:43 PM EDT [facility] LAB Platelets 223 130 - 400 K/mcL LAB HEMETOLOGY METHOD 08/31/2024 1:43 PM EDT [facility] LAB MPV 9.6 7.0 - 11.0 FL LAB HEMETOLOGY METHOD 08/31/2024 1:43 PM EDT [facility] NRBC 0.0 <1.0 % LAB HEMETOLOGY METHOD 08/31/2024 1:43 PM EDT [facility] LAB NRBC Absolute 0.00 <0.10 K/mcL LAB HEMETOLOGY METHOD 08/31/2024 1:43 PM EDT [facility] LAB Blood Venous blood specimen / Unknown 08/31/2024 5:18 AM EDT 08/31/2024 11:31 AM EDT us Lincoln Crespo MD LAB BLOOD ORDERABLES Final Resu lt [facility] LAB [address] [place] [address], documented in this encounter Visit Diagnoses Diagnosis Essential (primary) hypertension Unspecified essential hypertension Atherosclerotic heart disease of [place] coronary artery without angina pectoris Anemia, unspecified documented in this encounter Care Teams Director Of Institutional Giving Relationship Specialty Start Date End Date John Avina DO [address] [place] [phone] PCP - General Internal Medicine 06/10/24 documented as of this encounter
--- OUTSIDE RECORDS SUMMARY | 2025-03-01 16:33 | XMS_ITS | Encounter Summary ---
Author Organization [employer] Address [address] [place] [address] Care Team Providers Care Rail Car Unloader Name Role Phone oJhn Avina DO Primary Care Provider [phone] Encounter Details Date Type Department Care Team (Late st Contact Info) Description 08/26/[address] [facility] - Main Lab [address] [facility] [place] [address] Lincoln Crespo MD [address] [place] [address] Essential (primary) hypertension; Atherosclerotic heart disease of [place] coronary artery without angina pectoris; Anemia, unspecified; [...] Essential (primary) hypertension Atherosclerotic heart disease of [place] coronary artery without angina pectoris Anemia, unspecified Chronic kidney disease, unspecified BASIC METABOLIC PANEL Routine 08/27/2024 5:31 AM EDT Essential (primary) hypertension Atherosclerotic heart disease of [place] coronary artery without angina pectoris Anemia, unspecified Chronic kidney disease, unspecified documented in this encounter Results * (ABNORMAL) Basic metabolic panel (08/27/2024 5:31 AM EDT) Sodium 144 133 - 145 mmol/L LAB CHEMISTRY METHOD 08/27/2024 10:08 AM [facility] LAB Potassium 4.1 3.5 - 5.5 mmol/L LAB CHEMISTRY METHOD 08/27/2024 10:08 AM [facility] LAB Chloride 111(H) 96 - 110 mmol/L LAB CHEMISTRY METHOD 08/27/2024 10:08 AM [facility] CO2 26 21 - 32 mmol/L LAB CHEMISTRY METHOD 08/27/2024 10:08 AM [facility] LAB Anion Gap 7 3 - 11 LAB CHEMISTRY METHOD 08/27/2024 10:08 AM [facility] LAB Glucose 86 70 - 100 mg/dL LAB CHEMISTRY METHOD 08/27/2024 10:08 AM [facility] BUN 41(H) 5 - 25 mg/dL LAB CHEMISTRY METHOD 08/27/2024 10:08 AM [facility] Creatinine 1.64(H) 0.50 - 1.10 mg/dL LAB CHEMISTRY METHOD 08/27/2024 10:08 AM [facility] LAB eGFR 32(L) >=60 mL/min/1. 73m2 LAB CHEMISTRY METHOD 08/27/2024 10:08 AM [facility] LAB Comment:Calculation based on the Chronic Kidney Disease Epidemiology Collaboration (CKD-EPI) equation refit without adjustment for race. BUN/Creatinine Ratio 25.0 LAB CHEMISTRY METHOD 08/27/2024 10:08 AM [facility] LAB Calcium 8.6 8.5 - 10.5 mg/dL LAB CHEMISTRY METHOD 08/27/2024 10:08 AM [facility] LAB Blood Venous blood specimen / Unknown Venipuncture / Unknown 08/27/2024 5:31 AM EDT 08/27/2024 8:43 AM EDT us Lincoln Crespo MD LAB BLOOD ORDERABLES Final Resu lt [facility] [address] [place] [address], * (ABNORMAL) Complete blood count (08/27/2024 5:31 AM EDT) [facility] WBC 5.4 4.8 - 10.8 K/mcL LAB HEMETOLOGY [facility] RBC 2.70(L) 3.80 - 4.80 M/mcL LAB HEMETOLOGY METHOD 08/27/2024 9:02 AM [facility] Hemoglobin 9.0(L) 11.5 - 16.0 g/dL LAB HEMETOLOGY METHOD 08/27/2024 9:02 AM [facility] LAB Hematocrit 27.9(L) 35.0 - 47.0 % LAB HEMETOLOGY METHOD 08/27/2024 9:02 AM [facility] LAB MCV 104.1(H) 79.0 - 98.0 FL LAB HEMETOLOGY METHOD 08/27/2024 9:02 AM [facility] LAB MCH 33.6(H) 27.0 - 32.0 pcg LAB HEMETOLOGY METHOD 08/27/2024 9:02 AM [facility] LAB MCHC 32.3 32.0 - 37.0 g/dL LAB HEMETOLOGY METHOD 08/27/2024 9:02 AM [facility] LAB RDW 19.1(H) 11.0 - 15.0 % LAB HEMETOLOGY METHOD 08/27/2024 9:02 AM [facility] LAB Platelets 214 130 - 400 K/mcL LAB HEMETOLOGY METHOD 08/27/2024 9:02 AM [facility] LAB MPV 9.3 7.0 - 11.0 FL LAB HEMETOLOGY METHOD 08/27/2024 9:02 AM [facility] LAB NRBC 0.0 <1.0 % LAB [...] Resu lt [facility] [address] [place] [address], documented in this encounter Visit Diagnoses Diagnosis Essential (primary) hypertension Unspecified essential hypertension Atherosclerotic heart disease of [place] coronary artery without angina pectoris Anemia, unspecified Chronic kidney disease, unspecified documented in this encounter Care Teams Rail Car Unloader Relationship Specialty Start Date End Date John Avina DO [address] [place] [phone] PCP - General Internal Medicine 06/10/24 documented as of this encounter
--- OUTSIDE RECORDS SUMMARY | 2025-03-01 16:33 | XMS_ITS | Encounter Summary ---
Author Organization [employer] Address [id number] [place] [phone] Care Team Providers Care Ekg Monitor Tech Name Role Phone John Avina DO Primary Care Provider [phone] Encounter Details Date Type Department Care Team (Late st Contact Info) Description 08/12/[address] [facility] - Main Lab [address] [facility] [place] [address] Lincoln Crespo MD [address] [place] [address] Essential (primary) hypertension; Atherosclerotic heart disease of [place] coronary artery without angina pectoris; Anemia, unspecified; [...] Essential (primary) hypertension Atherosclerotic heart disease of [place] coronary artery without angina pectoris Anemia, unspecified Chronic kidney disease, unspecified Hypothyroidism, unspecified Hyperlipidemia, unspecified COMPREHENSIVE METABOLIC PANEL Routine 08/12/2024 4:49 AM EDT Essential (primary) hypertension Atherosclerotic heart disease of [place] coronary artery without angina pectoris Anemia, unspecified Chronic kidney disease, unspecified Hypothyroidism, unspecified Hyperlipidemia, unspecified documented in this encounter Results * (ABNORMAL) Comprehensive metabolic panel (08/12/2024 4:49 AM EDT) Sodium 140 133 - 145 mmol/L LAB CHEMISTRY METHOD 08/12/2024 11:43 AM [facility] LAB Potassium 4.4 3.5 - 5.5 mmol/L LAB CHEMISTRY METHOD 08/12/2024 11:43 AM [facility] LAB Chloride 104 96 - 110 mmol/L LAB CHEMISTRY METHOD 08/12/2024 11:43 AM [facility] LAB CO2 30 21 - 32 mmol/L LAB CHEMISTRY METHOD 08/12/2024 11:43 AM [facility] LAB Anion Gap 6 3 - 11 LAB CHEMISTRY METHOD 08/12/2024 11:43 AM [facility] LAB Glucose 81 70 - 100 mg/dL LAB CHEMISTRY METHOD 08/12/2024 11:43 AM [facility] LAB BUN 35(H) 5 - 25 mg/dL LAB CHEMISTRY METHOD 08/12/2024 11:43 AM [facility] LAB Creatinine 1.81(H) 0.50 - 1.10 mg/dL LAB CHEMISTRY METHOD 08/12/2024 11:43 AM [facility] LAB eGFR 29(L) >=60 mL/min/1. 73m2 LAB CHEMISTRY METHOD 08/12/2024 11:43 AM [facility] LAB Comment:Calculation based on the Chronic Kidney Disease Epidemiology Collaboration (CKD-EPI) equation refit without adjustment for race. BUN/Creatinine Ratio 19.3 LAB CHEMISTRY METHOD 08/12/2024 11:43 AM [facility] LAB Calcium 8.3(L) 8.5 - 10.5 mg/dL LAB CHEMISTRY METHOD 08/12/2024 11:43 AM [facility] LAB AST (SGOT) 7(L) 10 - 42 unit/L LAB CHEMISTRY METHOD 08/12/2024 11:43 AM [facility] LAB ALT (SGPT) 7(L) 10 - 60 unit/L LAB CHEMISTRY METHOD 08/12/2024 11:43 AM EDT [facility] LAB Alkaline Phosphatase 65 42 - 121 unit/L LAB CHEMISTRY METHOD 08/12/2024 11:43 AM T [facility] LAB Total Protein 5.5(L) 6.0 - 8.0 g/dL LAB CHEMISTRY METHOD 08/12/2024 11:43 AM [facility] LAB Albumin 2.3(L) 3.2 - 5.0 g/dL LAB CHEMISTRY METHOD 08/12/2024 11:43 AM T [facility] LAB Total Bilirubin 0.5 0.0 - 1.4 mg/dL LAB CHEMISTRY METHOD 08/12/2024 11:43 AM [facility] LAB Blood Venous blood specimen / Unknown Venipuncture / Unknown 08/12/2024 4:49 AM EDT 08/12/2024 10:25 AM EDT Lincoln Crespo MD LAB BLOOD ORDERABLES Final Resu lt [facility] [address] [place] [address], * (ABNORMAL) Complete blood count (08/12/2024 4:49 AM EDT) WBC 6.8 4.8 - 10.8 K/mcL LAB HEMETOLOGY METHOD 08/12/2024 11:01 AM [facility] LAB RBC 2.20(L) 3.80 - 4.80 M/mcL LAB HEMETOLOGY METHOD 08/12/2024 11:01 AM [facility] LAB Hemoglobin 7.4(L) 11.5 - 16.0 g/dL LAB HEMETOLOGY METHOD 08/12/2024 11:01 AM [facility] LAB Hematocrit 23.3(L) 35.0 - 47.0 % LAB HEMETOLOGY METHOD 08/12/2024 11:01 AM EDT [facility] MCV 108.4(H) 79.0 - 98.0 FL LAB HEMETOLOGY METHOD 08/12/2024 11:01 AM EDT [facility] MCH 34.4(H) 27.0 - 32.0 pcg LAB HEMETOLOGY METHOD 08/12/2024 11:[facility] MCHC 31.8(L) 32.0 - 37.0 g/dL LAB HEMETOLOGY METHOD 08/12/2024 11:01 AM EDT [facility] RDW 17.7(H) 11.0 - 15.0 % LAB HEMETOLOGY METHOD 08/12/2024 11:[facility] Platelets 203 130 - 400 K/mcL LAB HEMETOLOGY METHOD 08/12/2024 11:01 [facility] MPV 9.8 7.0 - 11.0 FL LAB HEMETOLOGY METHOD 08/12/2024 11:01 [facility] NRBC 0.0 <1.0 % LAB HEMETOLOGY METHOD 08/12/2024 11:01 [facility] NRBC Absolute 0.00 <0.10 K/mcL LAB HEMETOLOGY METHOD 08/12/2024 11:01 AM [facility] LAB Blood Venous blood specimen / Unknown Venipuncture / Unknown 08/12/2024 4:49 AM EDT 08/12/2024 10:25 AM EDT us Lincoln Crespo MD LAB BLOOD ORDERABLES Final Resu lt [facility] [address] [place] [address], [place] [phone] documented in this encounter Visit Diagnoses Diagnosis Essential (primary) hypertension Unspecified essential hypertension Atherosclerotic heart disease of [place] coronary artery without angina pectoris Anemia, unspecified Chronic kidney disease, unspecified Hypothyroidism, unspecified Hyperlipidemia, unspecified documented in this encounter Care Teams Ekg Monitor Tech Relationship Specialty Start Date End Date John Avina DO [address] [place] [phone] PCP - General Internal Medicine 06/10/24 documented as of this encounter
--- OUTSIDE RECORDS SUMMARY | 2025-03-01 16:33 | XMS_ITS | Encounter Summary ---
Author Organization [employer] Address [address] [place] [address] Care Team Providers Care Supervisor Reclamation Name Role Phone John Avina DO Primary Care Provider [phone] Encounter Details Date Type Department Care Team (Late st Contact Info) Description 09/16/2024 Lab Requisition [facility] - Main Lab [address] [facility] [place] [address] Lincoln Crespo MD [address] [place] [address] Essential (primary) hypertension; Atherosclerotic heart disease of [place] coronary artery without angina pectoris; Anemia, unspecified; [...] Essential (primary) hypertension Atherosclerotic heart disease of [place] coronary artery without angina pectoris Anemia, unspecified Chronic kidney disease, unspecified BASIC METABOLIC PANEL Routine 09/17/2024 8:40 AM EDT Essential (primary) hypertension Atherosclerotic heart disease of [place] coronary artery without angina pectoris Anemia, unspecified Chronic kidney disease, unspecified documented in this encounter Results * (ABNORMAL) Basic metabolic panel (09/17/2024 8:40 AM EDT) Sodium 141 133 - 145 mmol/L LAB CHEMISTRY METHOD 09/17/2024 11:11 AM [facility] Potassium 4.0 3.5 - 5.5 mmol/L LAB CHEMISTRY METHOD 09/17/2024 11:11 AM [facility] Chloride 109 96 - 110 mmol/L LAB CHEMISTRY METHOD 09/17/2024 11:11 AM [facility] CO2 24 21 - 32 mmol/L LAB CHEMISTRY METHOD 09/17/2024 11:11 AM [facility] LAB Anion Gap 8 3 - 11 LAB CHEMISTRY METHOD 09/17/2024 11:11 AM [facility] Glucose 103(H) 70 - 100 mg/dL LAB CHEMISTRY METHOD 09/17/2024 11:11 AM [facility] BUN 49(H) 5 - 25 mg/dL LAB CHEMISTRY METHOD 09/17/2024 11:11 AM [facility] Creatinine 1.74(H) 0.50 - 1.10 mg/dL LAB CHEMISTRY METHOD 09/17/2024 11:11 AM [facility] LAB eGFR 30(L) >=60 mL/min/1. 73m2 LAB CHEMISTRY METHOD 09/17/2024 11:11 AM [facility] LAB Comment:Calculation based on the Chronic Kidney Disease Epidemiology Collaboration (CKD-EPI) equation refit without adjustment for race. BUN/Creatinine Ratio 28.2 LAB CHEMISTRY METHOD 09/17/2024 11:11 AM [facility] Calcium 9.3 8.5 - 10.5 mg/dL LAB CHEMISTRY METHOD 09/17/2024 11:11 AM [facility] LAB Blood Venous blood specimen / Unknown Venipuncture / Unknown 09/17/2024 8:40 AM EDT 09/17/2024 10:05 AM EDT us Lincoln Crespo MD LAB BLOOD ORDERABLES Final Resu lt [facility] [address] [place] [address], * (ABNORMAL) Complete blood count (09/17/2024 8:40 AM EDT) [facility] WBC 6.5 4.8 - 10.8 K/mcL LAB HEMETOLOGY METHOD 09/17/2024 10:30 AM EDT [facility] RBC 2.70(L) 3.80 - 4.80 M/mcL LAB HEMETOLOGY METHOD 09/17/2024 10:30 AM EDT [facility] Hemoglobin 9.4(L) 11.5 - 16.0 g/dL LAB HEMETOLOGY METHOD 09/17/2024 10:30 AM [facility] LAB Hematocrit 28.1(L) 35.0 - 47.0 % LAB HEMETOLOGY METHOD 09/17/2024 10:30 AM [facility] MCV 106.0(H) 79.0 - 98.0 FL LAB HEMETOLOGY METHOD 09/17/2024 10:30 AM [facility] MCH 35.5(H) 27.0 - 32.0 pcg LAB HEMETOLOGY METHOD 09/17/2024 10:30 AM [facility] MCHC 33.5 32.0 - 37.0 g/dL LAB HEMETOLOGY METHOD 09/17/2024 10:30 AM [facility] RDW 18.7(H) 11.0 - 15.0 % LAB HEMETOLOGY METHOD 09/17/2024 10:30 AM [facility] Platelets 183 130 - 400 K/mcL LAB HEMETOLOGY METHOD 09/17/2024 10:30 AM [facility] MPV 9.4 7.0 - 11.0 FL LAB HEMETOLOGY METHOD 09/17/2024 10:30 AM EDT [facility] NRBC 0.0 <1.0 % LAB HEMETOLOGY METHOD 09/17/2024 10:30 AM EDT [facility] NRBC Absolute 0.00 <0.10 K/mcL LAB HEMETOLOGY METHOD 09/17/2024 10:30 AM EDT [facility] Blood Venous blood specimen / Unknown Venipuncture / Unknown 09/17/2024 8:40 AM EDT 09/17/2024 10:05 AM EDT us Lincoln Crespo MD LAB BLOOD ORDERABLES Final Resu lt [facility] [address] [place] [address], documented in this encounter Visit Diagnoses Diagnosis Essential (primary) hypertension Unspecified essential hypertension Atherosclerotic heart disease of [place] coronary artery without angina pectoris Anemia, unspecified Chronic kidney disease, unspecified documented in this encounter Care Teams Supervisor Reclamation Relationship Specialty Start Date End Date John Avina DO [address] [place] [phone] PCP - General Internal Medicine 06/10/24 documented as of this encounter
== END 2025-03-01 14:12 | disposition home or self-care (01) ==
LOC: HO.LAB 14:11
PROVIDERS: PCP Internal Medicine; Visit Provider Internal Medicine Cardiovascular Disease
DX: I50.20 Unspecified systolic (congestive) heart failure (principal)
CPT/HCPCS: 36415; 80048; 83880; 85027; 85610

== ENCOUNTER 2025-03-03 14:00 | Outpatient (AMB) | payer MEDICARE, SELFPAY ==
--- NOTE | 2025-03-03 14:02 | HO.SPINEOV ---
Intake Visit Reasons: scoliosis/LBP Intake Note: Ms. Hernandez is here today c/o Low back pain. [place] done [place] [facility] A R Collections Rep Required: No Allergies diphenhydramine (From Benadryl) Allergy (Intermediate, Verified 03/03/25 14:09) Dizziness esomeprazole (From NEXIUM) Allergy (Intermediate, Verified 03/03/25 14:09) CHEST PAIN omeprazole (From PRILOSEC) Allergy (Intermediate, Verified 03/03/25 14:09) CHEST PAIN Assessment & Plan Assessment & Plan (1) Left hip pain: Code(s): M25.552 - Pain in left hip Category: Medical Plan Dear Julia, Thank you for referring Tonia to our office today. She is a pleasant 79-year-old female comes in today for evaluation of left hip and low back pain. She states this has been ongoing for many years, and she has been fairly extensively treated for her left hip in the past. When asked where the worst of her pain is she points directly to the left hip. She denies any radiation of pain down either leg. She denies any known inciting incident for the onset of her pain. She does state that she had a left hip surgery back in July after a hip fracture that sounds like it was fairly extensive and included instrumentation with screws. She reports that previously she was on a regular prescription of oxycodone/Percocet that completely alleviated her pain. She states she was able to take 1 pill before bed and would be pain free (of both her hip and back pain) into the following day. She reports that about 6 months ago she completed a course of physical therapy and attempt to help treat her hip and back pain. She denies any numbness/tingling/burning/weakness associated with the pain. When asked when her pain is the worst she states that when she 1st wakes up in the morning and tries to get up out of bed her pain is by far the worst. As she increases her activity and gets up and starts walking her pain lessens in severity. She is currently utilizing vycx-wux-wyjfpfo Tylenol to help try and treat this at home, however states it does not help her very much. She reports that she is not very interested in having surgery to address this, and more so is attempting to find someone who can provider her with regular narcotic pain control. PMH: Stage 3 CKD, mitral regurgitation, hyperlipidemia, trochanteric bursitis of left hip, cardiomyopathy, left-sided rotator cuff impingement, coronary artery disease, osteoarthritis, osteoporosis, hypothyroidism, multiple myeloma, cervical prolapse into vagina, papillary thyroid carcinoma, type 2 diabetes, anemia, hypertension, heart failure with a reduced ejection fraction, congestive heart failure, irritable bowel syndrome, nephrolithiasis, diverticulosis, history of pulmonary embolus. Social hx: Patient does not smoke, reports no substance use. Medications: See [employer] list. Allergies: Prilosec, liquid benadryl. Physical exam: The patient has full 5/5 strength of her bilateral lower extremities. She ambulates well, however does so slightly hunched over. She utilizes a cane to aid with ambulation. Her gait is slightly antalgic favoring the right-hand side. She reports no significant sensational deficits to light touch during examination. Her patella reflexes are hypoactive, however her Achilles reflexes are 2+ normal. (-) bilateral straight leg raise. Imaging review: MRI of the lumbar spine completed here at [facility] shows diffuse spondylosis of the lumbar spine with severe degenerative disc disease encompassing the entirety of the lumbar spine with near complete loss of disc height from L1-S1. There notable Modic endplate changes at L4-5, L5-S1. Varying degrees of central canal and foraminal stenosis seen throughout the lumbar spine. Worse at L3-4, L4-5 where there is severe central canal stenosis. L5-S1 also has severe bilateral foraminal stenosis. In addition to this there is a notable dextroscoliosis with the apex near L2. Impression: Tonia is a pleasant, complicated, 79-year-old female comes in today for evaluation of left hip and low back pain. She reports that her left hip pain is by far worse than her low back pain. She has a pertinent past medical history of a left hip fracture in July of this year, with surgical intervention and fixation. She does not appear to be suffering from signs of neurogenic claudication, considering she states her pain actually lessons with ambulation. It sounds like the pain that is originating in her low back is primarily arthritic in nature given that it is worse first thing in the morning and improves with activity / walking. She may be symptomatic from her degenerative scoliosis, which would involve multi-level lumbar fusion to try and treat. Unfortunately the patient is at far too high risk to even consider this in her case. In addition to this she denied the want / need for surgery when I explained this to her. I recommend she continue to follow up with our colleagues in pain management, and I will also place a referral to Orthopedics with the hope that they can get some advanced imaging of her hip to ensure there is no complication with her surgery from July. Thank you for allowing us to care for your patient. The total time spent with this visit with this patient was 65 minutes reviewing history, physical exam, MRI imaging review, and implementation of treatment plan or further diagnostic testing Trent Deutsch MD,PhD [facility] Orders: Referrals Orthopedics Referral M25.552 - Pain in left hip Coding Level of Care Code New Pt Level 5 (46193) Diagnoses Left hip pain M25.552
--- OUTSIDE RECORDS SUMMARY | 2025-03-03 17:16 | XMS_ITS | Encounter Summary ---
Author Organization [facility] Address [address] [place] [address] Care Team Providers Care Media Buyer Name Role Phone John Avina DO Primary Care Provider [phone] Encounter Details Date Type Department Care Team (Late st Contact Info) Description 06/10/2024 Lab Requisition [facility] - Main Lab [address] [facility] [place] [address] Arianna Iraheta PA [address] [place], [place] [id number] Dysuria Social History Tobacco Use Types Packs/Day [...] ssp pneumoniae(A) RIC 06/12/2024 11:01 AM EST [facility] LAB [...] MICROBIOLOGY - GENERAL ORD ERABLES Final Result [facility]) HOSPITAL LAB [address] [place] [address], documented in this encounter Visit Diagnoses Diagnosis Dysuria documented in this encounter Care Teams Media Buyer Relationship Specialty Start Date End Date John Avina DO [address] [place] [phone] PCP - General Internal Medicine 06/10/24 documented as of this encounter
--- OUTSIDE RECORDS SUMMARY | 2025-03-03 17:17 | XMS_ITS | Clinical Summary ---
Author Organization [facility] Address [address] [place] [address] Phone Care Team Providers Care Elevator Starter Name Role Phone FabriceJohn solares Primary Care Provider [phone] Allergies Active Allergy Reactions Criticality Noted Date [...] Visit [facility] [address] [place] [address] Mejia Soler [...] Visit [facility] [address] [place] [address] Mejia Soler MD [address] [facility] [address] [place] [address] Health Maintenance Due Date Last [...] 108.0 Magnesium 2.4 1.6 - 2.4 01/25/2025 [facility] Provider LAB BLOOD ORDERABLES Sarah l Result from Last 3 Months Insurance Medicare [facility] Medicare [facility] Care Teams Elevator Starter Relationship Specialty Start Date End Date John Avina DO [address] [place] [address] PCP - General Internal Medicine 10/23/23
--- OUTSIDE RECORDS SUMMARY | 2025-03-03 17:17 | XMS_ITS | Encounter Summary ---
Author Organization [employer] Address [address] [place] [address] Care Team Providers Care Pilot Plant Operator Helper Name Role Phone John Avina DO Primary Care Provider [phone] Encounter Details Date Type Department Care Team (Late st Contact Info) Description 08/22/2024 Lab Requisition [facility] - Main Lab [address] [facility] [place] [address] Lincoln Crespo MD [address] [place] [address] Essential (primary) hypertension; Atherosclerotic heart disease of [place] coronary artery without angina pectoris; Anemia, unspecified [...] Essential (primary) hypertension Atherosclerotic heart disease of [place] coronary artery without angina pectoris Anemia, unspecified COMPREHENSIVE METABOLIC PANEL Routine 08/24/2024 5:46 AM EDT Essential (primary) hypertension Atherosclerotic heart disease of [place] coronary artery without angina pectoris Anemia, unspecified documented in this encounter Results * (ABNORMAL) Comprehensive metabolic panel (08/24/2024 5:46 AM EDT) Sodium 144 133 - 145 mmol/L LAB CHEMISTRY METHOD 08/24/2024 9:15 AM EDT [facility] Potassium 4.0 3.5 - 5.5 mmol/L [...] LAB CHEMISTRY METHOD 08/24/2024 9:15 AM EDT [facility] LAB Albumin 2.8(L) 3.2 - 5.0 g/dL LAB CHEMISTRY METHOD 08/24/2024 9:15 AM EDT [facility] LAB Total Bilirubin 0.3 0.0 - 1.4 mg/dL LAB CHEMISTRY METHOD 08/24/2024 9:15 AM EDT [facility] LAB Blood Venous blood specimen / Unknown Venipuncture / Unknown 08/24/2024 5:46 AM EDT 08/24/2024 8:26 AM EDT us Lincoln Crespo MD LAB BLOOD ORDERABLES Final Resu lt [facility] [address] [place] [address], [place] [phone] * (ABNORMAL) Complete blood count (08/24/2024 5:46 AM EDT) WBC 6.8 4.8 - 10.8 K/mcL LAB HEMETOLOGY METHOD 08/24/2024 8:45 AM [facility] LAB RBC 2.50(L) 3.80 - 4.80 M/mcL LAB HEMETOLOGY METHOD 08/24/2024 8:45 AM [facility] LAB Hemoglobin 8.6(L) 11.5 - 16.0 g/dL LAB HEMETOLOGY METHOD 08/24/2024 8:45 AM T [facility] Hematocrit 26.2(L) 35.0 - 47.0 % LAB HEMETOLOGY METHOD 08/24/2024 8:45 AM [facility] LAB MCV 103.6(H) 79.0 - 98.0 FL LAB HEMETOLOGY METHOD 08/24/2024 8:45 AM EDT [facility] LAB MCH 34.0(H) 27.0 - 32.0 pcg LAB HEMETOLOGY METHOD 08/24/2024 8:45 AM EDT [facility] LAB MCHC 32.8 32.0 - 37.0 g/dL LAB HEMETOLOGY METHOD 08/24/2024 8:45 AM EDT [facility] LAB RDW 18.7(H) 11.0 - 15.0 % LAB HEMETOLOGY METHOD 08/24/2024 8:45 AM EDT [facility] LAB Platelets 192 130 - 400 K/mcL LAB HEMETOLOGY METHOD 08/24/2024 8:45 AM EDT [facility] MPV 9.3 7.0 - 11.0 FL LAB HEMETOLOGY METHOD 08/24/2024 8:45 AM EDT [facility] NRBC 0.0 <1.0 % LAB HEMETOLOGY METHOD 08/24/2024 8:45 AM EDT [facility] LAB NRBC Absolute 0.00 <0.10 K/mcL LAB HEMETOLOGY METHOD 08/24/2024 8:45 AM EDT [facility] LAB Blood Venous blood specimen / Unknown Venipuncture / Unknown 08/24/2024 5:46 AM EDT 08/24/2024 8:32 AM EDT us Lincoln Crespo MD LAB BLOOD ORDERABLES Final Resu lt [facility] [address] [place] [address], [place] [phone] documented in this encounter Visit Diagnoses Diagnosis Essential (primary) hypertension Unspecified essential hypertension Atherosclerotic heart disease of [place] coronary artery without angina pectoris Anemia, unspecified documented in this encounter Care Teams Pilot Plant Operator Helper Relationship Specialty Start Date End Date John Avina DO [address] [place] [phone] PCP - General Internal Medicine 06/10/24 documented as of this encounter
--- OUTSIDE RECORDS SUMMARY | 2025-03-03 17:17 | XMS_ITS | Encounter Summary ---
Author Organization [employer] Address [address] [place] [address] Care Team Providers Care Executive Communications Manager Name Role Phone John Avina DO Primary Care Provider [phone] Encounter Details Date Type Department Care Team (Late st Contact Info) Description 08/30/[address] [facility] - Main Lab [address] [facility] [place] [address] Lincoln Crespo MD [address] [place] [address] Essential (primary) hypertension; Atherosclerotic heart disease of [place] coronary artery without angina pectoris; Anemia, unspecified [...] hypertension Atherosclerotic heart disease of [place] coronary artery without angina pectoris Anemia, unspecified COMPREHENSIVE METABOLIC PANEL Routine 08/31/2024 5:18 AM EDT Essential (primary) hypertension Atherosclerotic heart disease of [place] coronary artery without angina pectoris Anemia, unspecified documented in this encounter Results * (ABNORMAL) Comprehensive metabolic panel (08/31/2024 5:18 AM EDT) Sodium 141 133 - 145 mmol/L LAB CHEMISTRY METHOD 08/31/2024 1:17 PM EDT [facility] Potassium 4.7 3.5 - 5.5 mmol/L LAB CHEMISTRY METHOD 08/31/2024 1:17 PM [facility] LAB Comment:Hemolysis present Chloride 110 96 - 110 mmol/L LAB CHEMISTRY METHOD 08/31/2024 1:17 PM [facility] CO2 15(L) 21 - 32 mmol/L LAB CHEMISTRY METHOD 08/31/2024 1:17 PM [facility] Anion Gap 16(H) 3 - 11 LAB CHEMISTRY METHOD 08/31/2024 1:17 PM [facility] Glucose 67(L) 70 - 100 mg/dL LAB CHEMISTRY METHOD 08/31/2024 1:17 PM [facility] BUN 49(H) 5 - 25 mg/dL LAB CHEMISTRY METHOD 08/31/2024 1:17 PM [facility] Creatinine 1.99(H) 0.50 - 1.10 mg/dL LAB CHEMISTRY METHOD 08/31/2024 1:17 PM [facility] eGFR 25(L) >=60 mL/min/1. 73m2 LAB CHEMISTRY METHOD 08/31/2024 1:17 PM [facility] LAB Comment:Calculation based on the Chronic Kidney Disease Epidemiology Collaboration (CKD-EPI) equation refit without adjustment for race. BUN/Creatinine Ratio 24.6 LAB CHEMISTRY METHOD 08/31/2024 1:17 PM [facility] Calcium 9.1 8.5 - 10.5 mg/dL LAB CHEMISTRY METHOD 08/31/2024 1:17 PM [facility] AST (SGOT) 14 10 - 42 unit/L LAB CHEMISTRY METHOD 08/31/2024 1:17 PM [facility] ALT (SGPT) 18 10 - 60 unit/L LAB CHEMISTRY METHOD 08/31/2024 1:17 PM [facility] Alkaline Phosphatase 70 42 - 121 unit/L LAB CHEMISTRY METHOD 08/31/2024 1:17 PM EDT [facility] Total Protein 6.6 6.0 - 8.0 g/dL LAB CHEMISTRY METHOD 08/31/2024 1:17 PM EDT [facility] Albumin 3.1(L) 3.2 - 5.0 g/dL LAB CHEMISTRY METHOD 08/31/2024 1:17 PM EDT [facility] Total Bilirubin 0.4 0.0 - 1.4 mg/dL LAB CHEMISTRY METHOD 08/31/2024 1:17 PM EDT [facility] Blood Venous blood specimen / Unknown 08/31/2024 5:18 AM EDT 08/31/2024 11:34 AM EDT [facility] LAB - 08/31/2024 1:17 PM EDT Short sample, interpret results with caution us Lincoln Crespo MD LAB BLOOD ORDERABLES Final Resu lt [facility] [address] [place] [address], [place] [phone] * (ABNORMAL) Complete blood count (08/31/2024 5:18 AM EDT) WBC 5.2 4.8 - 10.8 K/mcL LAB HEMETOLOGY METHOD 08/31/2024 1:43 PM EDT [facility] RBC 2.50(L) 3.80 - 4.80 M/mcL LAB HEMETOLOGY METHOD 08/31/2024 1:43 PM EDT [facility] Hemoglobin 8.6(L) 11.5 - 16.0 g/dL LAB HEMETOLOGY METHOD 08/31/2024 1:43 PM EDT [facility] Hematocrit 27.1(L) 35.0 - 47.0 % LAB HEMETOLOGY METHOD 08/31/2024 1:43 PM EDT [facility] MCV 106.7(H) 79.0 - 98.0 FL LAB HEMETOLOGY METHOD 08/31/2024 1:43 PM EDT [facility] MCH 33.9(H) 27.0 - 32.0 pcg LAB HEMETOLOGY METHOD 08/31/2024 1:43 PM EDT [facility] MCHC 31.7(L) 32.0 - 37.0 g/dL LAB HEMETOLOGY METHOD 08/31/2024 1:43 PM EDT [facility] RDW 19.2(H) 11.0 - 15.0 % LAB HEMETOLOGY METHOD 08/31/2024 1:43 PM EDT [facility] Platelets 223 130 - 400 K/mcL LAB HEMETOLOGY METHOD 08/31/2024 1:43 PM EDT [facility] MPV 9.6 7.0 - 11.0 FL LAB HEMETOLOGY METHOD 08/31/2024 1:43 PM EDT [facility] NRBC 0.0 <1.0 % LAB HEMETOLOGY METHOD 08/31/2024 1:43 PM EDT [facility] NRBC Absolute 0.00 <0.10 K/mcL LAB HEMETOLOGY METHOD 08/31/2024 1:43 PM EDT [facility] Blood Venous blood specimen / Unknown 08/31/2024 5:18 AM EDT 08/31/2024 11:31 AM EDT us Lincoln Crespo MD LAB BLOOD ORDERABLES Final Resu lt [facility] [address] [place] [address], documented in this encounter Visit Diagnoses Diagnosis Essential (primary) hypertension Unspecified essential hypertension Atherosclerotic heart disease of [place] coronary artery without angina pectoris Anemia, unspecified documented in this encounter Care Teams Executive Communications Manager Relationship Specialty Start Date End Date John Avina DO [address] [place] [phone] PCP - General Internal Medicine 06/10/24 documented as of this encounter
--- OUTSIDE RECORDS SUMMARY | 2025-03-03 17:17 | XMS_ITS | Clinical Summary ---
Author Organization [address] Address [address] [place] [address] Phone Care Team Providers Care Jig Operator Name Role Phone FabriceJohn solares Primary Care Provider [phone] Social History Tobacco Use Types Packs/Day Years [...] Essential (primary) hypertension Atherosclerotic heart disease of [place] coronary artery without angina pectoris Anemia, unspecified Chronic kidney disease, unspecified from Last 3 Months or Most Recently Relevant to Health Maintenance Results * (ABNORMAL) Basic metabolic panel (09/17/2024 8:40 AM EDT) Sodium 141 133 - 145 mmol/L LAB CHEMISTRY METHOD 09/17/2024 11:11 AM [facility] Potassium 4.0 3.5 - 5.5 mmol/L LAB CHEMISTRY METHOD 09/17/2024 11:11 AM [facility] Chloride 109 96 - 110 mmol/L LAB CHEMISTRY METHOD 09/17/2024 11:11 AM [facility] CO2 24 21 - 32 mmol/L LAB CHEMISTRY METHOD 09/17/2024 11:11 AM [facility] Anion Gap 8 3 - 11 LAB CHEMISTRY METHOD 09/17/2024 11:11 AM [facility] Glucose 103(H) 70 - 100 mg/dL LAB CHEMISTRY METHOD 09/17/2024 11:11 AM EDT [facility] BUN 49(H) 5 - 25 mg/dL LAB CHEMISTRY METHOD 09/17/2024 11:11 AM EDT [facility] Creatinine 1.74(H) 0.50 - 1.10 mg/dL LAB CHEMISTRY METHOD 09/17/2024 11:11 AM EDT [facility] LAB eGFR 30(L) >=60 mL/min/1. 73m2 LAB CHEMISTRY METHOD 09/17/2024 11:11 AM EDT [facility] Comment:Calculation based on the Chronic Kidney Disease Epidemiology Collaboration (CKD-EPI) equation refit without adjustment for race. BUN/Creatinine Ratio 28.2 LAB CHEMISTRY METHOD 09/17/2024 11:11 AM EDT [facility] Calcium 9.3 8.5 - 10.5 mg/dL LAB CHEMISTRY METHOD 09/17/2024 11:11 AM EDT [facility] Blood Venous blood specimen / Unknown Venipuncture / Unknown 09/17/2024 8:40 AM EDT 09/17/2024 10:05 AM EDT Lincoln Crespo MD LAB BLOOD ORDERABLES Final Resu lt [facility] [address] [place] [address], from Last 3 Months or Most Recently Relevant to Health Maintenance Insurance [facility]ICARE [facility] MED[facility] Care Teams Jig Operator Relationship Specialty Start Date End Date John Avina DO [address] [place] [phone] PCP - General Internal Medicine 06/10/24
--- OUTSIDE RECORDS SUMMARY | 2025-03-03 17:17 | XMS_ITS | Encounter Summary ---
Author Organization [facility] Address [address] [place] [address] Care Team Providers Care Physical Therapy Instructor Name Role Phone John Avina DO Primary Care Provider [phone] Encounter Details Date Type Department Care Team (Late st Contact Info) Description 08/17/[address] [facility] - Main Lab [address] [facility] [place] [address] Lincoln Crespo MD [address] [place] [address] Other ulcerative colitis with rectal [...] AM EDT) WBC 7.1 4.8 - 10.8 K/[facility] LAB HEMETOLOGY METHOD 08/18/2024 11:09 AM EDT [facility] RBC 2.80(L) 3.80 - 4.80 M/[facility] LAB HEMETOLOGY METHOD 08/18/2024 11:[address] [facility] Hemoglobin 9.2(L) 11.5 - 16.0 g/dL LAB HEMETOLOGY METHOD 08/18/2024 11:[address] [facility] Hematocrit 28.6(L) 35.0 - 47.0 % LAB HEMETOLOGY METHOD 08/18/2024 11:[address] [facility] MCV 103.6(H) 79.0 - 98.0 FL LAB HEMETOLOGY METHOD 08/18/2024 11:[address] [facility] MCH 33.3(H) 27.0 - 32.0 pcg LAB HEMETOLOGY METHOD 08/18/2024 11:[address] [facility] MCHC 32.2 32.0 - 37.0 g/dL LAB HEMETOLOGY METHOD 08/18/2024 11:[address] [facility] RDW 18.5(H) 11.0 - 15.0 % LAB HEMETOLOGY METHOD 08/18/2024 11:[address] [facility] Platelets 216 130 - 400 K/mcL LAB HEMETOLOGY METHOD 08/18/2024 11:[address] [facility] MPV 9.2 7.0 - 11.0 FL LAB HEMETOLOGY METHOD 08/18/2024 11:[address] [facility] NRBC 0.0 <1.0 % LAB HEMETOLOGY METHOD 08/18/2024 11:[address] [facility] NRBC Absolute 0.00 <0.10 K/mcL LAB HEMETOLOGY METHOD 08/18/2024 11:[address] [facility] Blood Venous blood specimen / Unknown Venipuncture / Unknown 08/18/2024 4:57 AM EDT 08/18/2024 10:57 AM EDT Lincoln Crespo MD LAB BLOOD ORDERABLES Final Resu lt [facility] LAB [address] [place] [address], documented in this encounter Visit Diagnoses Diagnosis Other ulcerative colitis with rectal bleeding (CMS/HCC V24, CMS/HCC V28) Anemia in chronic kidney disease (CODE) documented in this encounter Care Teams Physical Therapy Instructor Relationship Specialty Start Date End Date John Avina DO [address] [place] [phone] PCP - General Internal Medicine 06/10/24 documented as of this encounter
--- OUTSIDE RECORDS SUMMARY | 2025-03-03 17:17 | XMS_ITS | Encounter Summary ---
Author Organization [employer] Address [address] [place] [address] Care Team Providers Care Roof Designer Name Role Phone John Avina DO Primary Care Provider [phone] Encounter Details Date Type Department Care Team (Late st Contact Info) Description 08/26/2024 Lab Requisition [facility] - Main Lab [address] [facility] [place] [address] Lincoln Crespo MD [address] [place] [address] Essential (primary) hypertension; Atherosclerotic heart disease of [place] coronary artery without angina pectoris; Anemia, [...] Essential (primary) hypertension Atherosclerotic heart disease of [place] coronary artery without angina pectoris Anemia, unspecified Chronic kidney disease, unspecified BASIC METABOLIC PANEL Routine 08/27/2024 5:31 AM EDT Essential (primary) hypertension Atherosclerotic heart disease of [place] coronary artery without angina pectoris Anemia, unspecified Chronic kidney disease, unspecified documented in this encounter Results * (ABNORMAL) Basic metabolic panel (08/27/2024 5:31 AM EDT) Sodium 144 133 - 145 mmol/L LAB CHEMISTRY METHOD 08/27/2024 10:08 AM [facility] Potassium 4.1 3.5 - 5.5 mmol/L LAB CHEMISTRY METHOD 08/27/2024 10:08 AM [facility] Chloride 111(H) 96 - 110 mmol/L LAB CHEMISTRY METHOD 08/27/2024 10:08 AM [facility] CO2 26 21 - 32 mmol/L LAB CHEMISTRY METHOD 08/27/2024 10:08 AM [facility] Anion Gap 7 3 - 11 LAB CHEMISTRY METHOD 08/27/2024 10:08 AM [facility] Glucose 86 70 - 100 mg/dL LAB CHEMISTRY METHOD 08/27/2024 10:08 AM [facility] BUN 41(H) 5 - 25 mg/dL LAB CHEMISTRY METHOD 08/27/2024 10:08 AM [facility] Creatinine 1.64(H) 0.50 - 1.10 mg/dL LAB CHEMISTRY METHOD 08/27/2024 10:08 AM [facility] eGFR 32(L) >=60 mL/min/1. 73m2 LAB CHEMISTRY METHOD 08/27/2024 10:08 AM [facility] Comment:Calculation based on the Chronic Kidney Disease Epidemiology Collaboration (CKD-EPI) equation refit without adjustment for race. BUN/Creatinine Ratio 25.0 LAB CHEMISTRY METHOD 08/27/2024 10:08 AM [facility] Calcium 8.6 8.5 - 10.5 mg/dL LAB CHEMISTRY METHOD 08/27/2024 10:08 AM [facility] Blood Venous blood specimen / Unknown Venipuncture / Unknown 08/27/2024 5:31 AM EDT 08/27/2024 8:43 AM EDT us Lincoln Crespo MD LAB BLOOD ORDERABLES Final Resu lt [facility] [address] [place] [address], * (ABNORMAL) Complete blood count (08/27/2024 5:31 AM EDT) [facility] WBC 5.4 4.8 - 10.8 K/mcL LAB HEMETOLOGY [facility] RBC 2.70(L) 3.80 - 4.80 M/mcL LAB HEMETOLOGY METHOD 08/27/2024 9:02 AM [facility] Hemoglobin 9.0(L) 11.5 - 16.0 g/dL LAB HEMETOLOGY METHOD 08/27/2024 9:02 AM [facility] Hematocrit 27.9(L) 35.0 - 47.0 % LAB HEMETOLOGY METHOD 08/27/2024 9:02 AM [facility] MCV 104.1(H) 79.0 - 98.0 FL LAB HEMETOLOGY METHOD 08/27/2024 9:02 AM [facility] MCH 33.6(H) 27.0 - 32.0 pcg LAB HEMETOLOGY METHOD 08/27/2024 9:02 AM [facility] MCHC 32.3 32.0 - 37.0 g/dL LAB HEMETOLOGY METHOD 08/27/2024 9:02 AM [facility] RDW 19.1(H) 11.0 - 15.0 % LAB HEMETOLOGY METHOD 08/27/2024 9:02 AM [facility] Platelets 214 130 - 400 K/mcL LAB HEMETOLOGY METHOD 08/27/2024 9:02 AM [facility] MPV 9.3 7.0 - 11.0 FL LAB HEMETOLOGY METHOD 08/27/2024 9:02 AM [facility] NRBC 0.0 [...] Resu lt [facility] [address] [place] [address], documented in this encounter Visit Diagnoses Diagnosis Essential (primary) hypertension Unspecified essential hypertension Atherosclerotic heart disease of [place] coronary artery without angina pectoris Anemia, unspecified Chronic kidney disease, unspecified documented in this encounter Care Teams Roof Designer Relationship Specialty Start Date End Date John Avina DO [address] [place] [phone] PCP - General Internal Medicine 06/10/24 documented as of this encounter
--- OUTSIDE RECORDS SUMMARY | 2025-03-03 17:17 | XMS_ITS | Encounter Summary ---
Author Organization [facility] Address [address] [place] [address] Care Team Providers Care Penology Professor Name Role Phone John Avina DO Primary Care Provider [phone] Encounter Details Date Type Department Care Team (Late st Contact Info) Description 09/14/2024 Lab Requisition [facility] - Main Lab 299 [facility] [place] [address] Lincoln Crespo MD [address] [place] [address] Essential (primary) hypertension; Atherosclerotic heart disease of [place] coronary artery without angina pectoris; Anemia, unspecified [...] Essential (primary) hypertension Atherosclerotic heart disease of [place] coronary artery without angina pectoris Anemia, unspecified COMPREHENSIVE METABOLIC PANEL Routine 09/15/2024 7:05 AM EDT Essential (primary) hypertension Atherosclerotic heart disease of [place] coronary artery without angina pectoris Anemia, unspecified documented in this encounter Results * (ABNORMAL) Complete blood count (09/15/2024 7:07 AM EDT) WBC 5.1 4.8 - 10.8 K/mcL LAB HEMETOLOGY METHOD 09/15/2024 12:[address] [facility] RBC 2.30(L) 3.80 - 4.80 M/mcL LAB HEMETOLOGY METHOD 09/15/2024 12:07 PM [facility] Hemoglobin 8.0(L) 11.5 - 16.0 g/dL LAB HEMETOLOGY METHOD 09/15/2024 12:07 PM [facility] Hematocrit 24.4(L) 35.0 - 47.0 % LAB HEMETOLOGY METHOD 09/15/2024 12:07 PM [facility] MCV 107.0(H) 79.0 - 98.0 FL LAB HEMETOLOGY METHOD 09/15/2024 12:07 PM [facility] MCH 35.1(H) 27.0 - 32.0 pcg LAB HEMETOLOGY METHOD 09/15/2024 12:07 PM [facility] MCHC 32.8 32.0 - 37.0 g/dL LAB HEMETOLOGY METHOD 09/15/2024 12:07 PM [facility] RDW 19.0(H) 11.0 - 15.0 % LAB HEMETOLOGY METHOD 09/15/2024 12:07 PM [facility] Platelets 141 130 - 400 K/mcL LAB HEMETOLOGY METHOD 09/15/2024 12:07 PM [facility] MPV 9.2 7.0 - 11.0 FL LAB HEMETOLOGY METHOD 09/15/2024 12:07 PM [facility] NRBC 0.0 <1.0 % LAB HEMETOLOGY METHOD 09/15/2024 12:07 PM [facility] NRBC Absolute 0.00 <0.10 K/mcL LAB HEMETOLOGY METHOD 09/15/2024 12:07 PM [facility] Blood Venous blood specimen / Unknown Venipuncture / Unknown 09/15/2024 7:07 AM EDT 09/15/2024 10:49 AM EDT us Lincoln Crespo MD LAB BLOOD ORDERABLES Final Resu lt [facility] [address] [place] [address], [place] [phone] * (ABNORMAL) Comprehensive metabolic panel (09/15/2024 7:05 AM EDT) Sodium 143 133 - 145 mmol/L LAB CHEMISTRY METHOD 09/15/2024 12:43 PM [facility] Potassium 3.6 3.5 - 5.5 mmol/L LAB CHEMISTRY METHOD 09/15/2024 12:43 PM [facility] Chloride 110 96 - 110 mmol/L LAB CHEMISTRY METHOD 09/15/2024 12:43 PM [facility] CO2 22 21 - 32 mmol/L LAB CHEMISTRY METHOD 09/15/2024 12:43 PM [facility] Anion Gap 11 3 - 11 LAB CHEMISTRY METHOD 09/15/2024 12:43 PM [facility] Glucose 90 70 - 100 mg/dL LAB CHEMISTRY METHOD 09/15/2024 12:43 PM [facility] BUN 49(H) 5 - 25 mg/dL LAB CHEMISTRY METHOD 09/15/2024 12:43 PM [facility] Creatinine 1.80(H) 0.50 - 1.10 mg/dL LAB CHEMISTRY METHOD 09/15/2024 12:43 PM [facility] eGFR 29(L) >=60 mL/min/1. 73m2 LAB CHEMISTRY METHOD 09/15/2024 12:43 PM [facility] Comment:Calculation based on the Chronic Kidney Disease Epidemiology Collaboration (CKD-EPI) equation refit without adjustment for race. BUN/Creatinine Ratio 27.2 LAB CHEMISTRY METHOD 09/15/2024 12:43 PM EDT [facility] Calcium 8.9 8.5 - 10.5 mg/dL LAB CHEMISTRY METHOD 09/15/2024 12:43 PM T [facility] AST (SGOT) 6(L) 10 - 42 unit/L LAB CHEMISTRY METHOD 09/15/2024 12:43 PM [facility] ALT (SGPT) 15 10 - 60 unit/L LAB CHEMISTRY METHOD 09/15/2024 12:43 PM T [facility] Alkaline Phosphatase 56 42 - 121 unit/L LAB CHEMISTRY METHOD 09/15/2024 12:43 PM [facility] Total Protein 6.0 6.0 - 8.0 g/dL LAB CHEMISTRY METHOD 09/15/2024 12:43 PM [facility] Albumin 3.0(L) 3.2 - 5.0 g/dL LAB CHEMISTRY METHOD 09/15/2024 12:43 PM [facility] Total Bilirubin 0.5 0.0 - 1.4 mg/dL LAB CHEMISTRY METHOD 09/15/2024 12:43 PM [facility] Blood Venous blood specimen / Unknown Venipuncture / Unknown 09/15/2024 7:05 AM EDT 09/15/2024 10:50 AM EDT us Lincoln Crespo MD LAB BLOOD ORDERABLES Final Resu lt [facility] [address] [place] [address], documented in this encounter Visit Diagnoses Diagnosis Essential (primary) hypertension Unspecified essential hypertension Atherosclerotic heart disease of [place] coronary artery without angina pectoris Anemia, unspecified documented in this encounter Care Teams Penology Professor Relationship Specialty Start Date End Date John Avina DO [address] [place] [phone] PCP - General Internal Medicine 06/10/24 documented as of this encounter
--- OUTSIDE RECORDS SUMMARY | 2025-03-03 17:17 | XMS_ITS | Encounter Summary ---
Author Organization [facility] Address [address] [place] [address] Care Team Providers Care Bull Chain Operator Name Role Phone John Avina DO Primary Care Provider [phone] Encounter Details Date Type Department Care Team (Late st Contact Info) Description 09/02/2024 Lab Requisition [facility] - Main Lab 299 [facility] [place] [address] Lincoln Crespo MD [address] [place] [address] Essential (primary) hypertension; Atherosclerotic heart [...] [facility] [address] [place] [address], * (ABNORMAL) Complete blood count (09/03/2024 7:35 AM EDT) [facility] Signature WBC 4.5(L) 4.8 - 10.8 K/mcL LAB HEMETOLOGY METHOD 09/03/2024 8:46 AM EDT [facility] LAB RBC 2.60(L) 3.80 - 4.80 M/mcL LAB HEMETOLOGY METHOD 09/03/2024 8:46 AM EDT [facility] Hemoglobin 8.8(L) 11.5 - 16.0 g/dL LAB HEMETOLOGY METHOD 09/03/2024 8:[address] [facility] Hematocrit 27.0(L) 35.0 - 47.0 % LAB HEMETOLOGY METHOD [facility] MCV 105.1(H) 79.0 - 98.0 FL LAB HEMETOLOGY METHOD [facility]/03[facility]24 [facility] MCH 34.2(H) 27.0 - 32.0 pcg LAB HEMETOLOGY METHOD 09/03/2024 8:[address] [facility] MCHC 32.6 32.0 - 37.0 g/dL LAB HEMETOLOGY METHOD 09/03[facility]2024 [facility] RDW 19.1(H) 11.0 - 15.0 % LAB HEMETOLOGY METHOD 09/03/2024 8:46 AM EDT [facility] Platelets 200 130 - 400 K/mcL LAB HEMETOLOGY METHOD 09/03/2024 8:46 AM EDT [facility] MPV 9.2 7.0 - 11.0 FL LAB HEMETOLOGY METHOD 09/03/2024 8:46 AM EDT [facility] NRBC 0.0 <1.0 % LAB HEMETOLOGY METHOD 09/03/2024 8:46 AM EDT [facility] LAB NRBC Absolute 0.00 <0.10 K/mcL LAB HEMETOLOGY METHOD 09/03/2024 8:46 AM EDT [facility] Blood Venous blood specimen / Unknown Venipuncture / Unknown 09/03/2024 7:35 AM EDT 09/03/2024 8:28 AM EDT us Lincoln Crespo MD LAB BLOOD ORDERABLES Final Resu lt [facility] ([facility] [address] [place] [address], documented in this encounter Visit Diagnoses Diagnosis Essential (primary) hypertension Unspecified essential hypertension Atherosclerotic heart disease of [place] coronary artery without angina pectoris Anemia, unspecified Chronic kidney disease, unspecified documented in this encounter Care Teams Bull Chain Operator Relationship Specialty Start Date End Date John Avina DO [address] [place] [phone] PCP - General Internal Medicine 06/10/24 documented as of this encounter
--- OUTSIDE RECORDS SUMMARY | 2025-03-03 17:17 | XMS_ITS | Clinical Summary ---
Author Organization [facility] Address [address] [facility] [address] [place] [address] Phone Care Team Providers Care Phonograph Cartridge Assembler Name Role Phone Aniceto Emery MD Primary Care Provider [phone] Juliann Tse MD Unavailable [phone] Henrry Espino MD Unavailable [phone] Allergies Active Allergy Reactions Criticality Noted Date [...] Smoking Tobacco: Former Cigarettes 1 23 1 599 - 1957 Education Answer Date Recorded Are you interested [...] patient's age to complete this topic IPV VACCINES Aged Out No longer eligi ble [...] EST) SODIUM 138 135 - 145 mmol/L [facility] LIC# [id number] POTASSIUM 3.8 3.5 - 5.0 mmol/L [facility] LIC# [id number] CHLORIDE 104 98 - 108 mmol/L [facility] LIC# [id number] CO2 27 23 - 32 mmol/L [facility] LIC# [id number] BUN 28(H) 9 - 25 mg/dL [facility] LIC# [id number] CREATININE 1.26 0.7 - 1.3 mg/dL [facility] LIC# [id number] GLUCOSE 143(H) 70 - 100 mg/dL [facility] LIC# [id number] ALBUMIN 4.3 3.7 - 5.4 g/dL [facility] LIC# [id number] TOTAL PROTEIN 7.4 6.0 - 8.0 g/dL [facility] LIC# [id number] CALCIUM 9.8 8.8 - 10.5 mg/dL [facility] LIC# [id number] ALKALINE PHOSPHATASE 82 36 - 118 U/L [facility] LIC# [id number] TOTAL BILIRUBIN 0.5 0.2 - 1.2 mg/dL [facility] LIC# [id number] AST 15 9 - 30 U/L [facility] LIC# [id number] ALT 16 7 - 52 U/L [facility] LIC# [id number] GLOBULIN 3.1 2.3 - 4.2 g/dL [facility] LIC# [id number] EGFR 42 mL/min/1.7 3m2 [facility] LIC# [id number] Comment:Abnormal if <60 mL/m in/1.73m2. If patient is -[place]ian, multiply the result by 1.21. ANION GAP 7 5 - 17 mmol/L [facility] LIC# [id number] 06/04/2016 4:11 PM EST 06/04/2016 4:19 PM EST us Henrry Espino MD LAB BLOOD BKR ORDERABLES Fi nal Result [facility] LIC# [id number] [address] [place] [address] from Last 3 Months or Most Recently Relevant to Health Maintenance Insurance [facility] PPO [facility] [place] [address] [place] [address] [place] [address] [place] [address] PPO PPO PPO PPO [facility] PPO Advance Directives For more information, please contact: [phone] (9AM - 5PM [facility], Saturday-Saturday) Documents on File Type Date Recorded 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 [address] [email or web address] PCP - Hematology/Oncology Medical Oncology 06/06/16 Juliann Tse MD [address] [place] [phone] [email or web address] Referring Physician Hematology and Oncology 04/25/16 Additional Source Comments The information contained in this document represents components of the legal health record. It is not the complete legal health record.[facility]
--- OUTSIDE RECORDS SUMMARY | 2025-03-03 17:17 | XMS_ITS | Encounter Summary ---
Author Organization [employer] Address [address] [place] [address] Care Team Providers Care Court Usher Name Role Phone John Avina DO Primary Care Provider [phone] Encounter Details Date Type Department Care Team (Late st Contact Info) Description 08/12/2024 Lab Requisition [facility] - Main Lab 299 [facility] [place] [address] Lincoln Crespo MD [address] [place] [address] Essential (primary) hypertension; Atherosclerotic heart disease of [place] coronary artery without angina pectoris; Anemia, unspecified; [...] Essential (primary) hypertension Atherosclerotic heart disease of [place] coronary artery without angina pectoris Anemia, unspecified Chronic kidney disease, unspecified Hypothyroidism, unspecified Hyperlipidemia, unspecified COMPREHENSIVE METABOLIC PANEL Routine 08/12/2024 4:49 AM EDT Essential (primary) hypertension Atherosclerotic heart disease of [place] coronary artery without angina pectoris Anemia, unspecified Chronic kidney disease, unspecified Hypothyroidism, unspecified Hyperlipidemia, unspecified documented in this encounter Results * (ABNORMAL) Comprehensive metabolic panel (08/12/2024 4:49 AM EDT) Sodium 140 133 - 145 mmol/L LAB CHEMISTRY METHOD 08/12/2024 11:43 AM [facility] Potassium 4.4 3.5 - 5.5 mmol/L LAB CHEMISTRY METHOD 08/12/2024 11:43 AM [facility] Chloride 104 96 - 110 mmol/L LAB CHEMISTRY METHOD 08/12/2024 11:43 AM [facility] CO2 30 21 - 32 mmol/L LAB CHEMISTRY METHOD 08/12/2024 11:43 AM [facility] Anion Gap 6 3 - 11 LAB CHEMISTRY METHOD 08/12/2024 11:43 AM [facility] Glucose 81 70 - 100 mg/dL LAB CHEMISTRY METHOD 08/12/2024 11:43 AM [facility] BUN 35(H) 5 - 25 mg/dL LAB CHEMISTRY METHOD 08/12/2024 11:43 AM [facility] Creatinine 1.81(H) 0.50 - 1.10 mg/dL LAB CHEMISTRY METHOD 08/12/2024 11:43 AM [facility] LAB eGFR 29(L) >=60 mL/min/1. 73m2 LAB CHEMISTRY METHOD 08/12/2024 11:43 AM [facility] Comment:Calculation based on the Chronic Kidney Disease Epidemiology Collaboration (CKD-EPI) equation refit without adjustment for race. BUN/Creatinine Ratio 19.3 LAB CHEMISTRY METHOD 08/12/2024 11:43 AM [facility] Calcium 8.3(L) 8.5 - 10.5 mg/dL LAB CHEMISTRY METHOD 08/12/2024 11:43 AM [facility] AST (SGOT) 7(L) 10 - 42 unit/L LAB CHEMISTRY METHOD 08/12/2024 11:43 AM [facility] ALT (SGPT) 7(L) 10 - 60 unit/L LAB CHEMISTRY METHOD 08/12/2024 11:43 AM EDT [facility] Alkaline Phosphatase 65 42 - 121 unit/L LAB CHEMISTRY METHOD 08/12/2024 11:43 AM T [facility] Total Protein 5.5(L) 6.0 - 8.0 g/dL LAB CHEMISTRY METHOD 08/12/2024 11:43 AM [facility] Albumin 2.3(L) 3.2 - 5.0 g/dL LAB CHEMISTRY METHOD 08/12/2024 11:43 AM T [facility] Total Bilirubin 0.5 0.0 - 1.4 mg/dL LAB CHEMISTRY METHOD 08/12/2024 11:43 AM [facility] Blood Venous blood specimen / Unknown Venipuncture / Unknown 08/12/2024 4:49 AM EDT 08/12/2024 10:25 AM EDT Lincoln Crespo MD LAB BLOOD ORDERABLES Final Resu lt [facility] LAB [address] [place] [address], * (ABNORMAL) Complete blood count (08/12/2024 4:49 AM EDT) WBC 6.8 4.8 - 10.8 K/mcL LAB HEMETOLOGY METHOD 08/12/2024 11:01 AM [facility] RBC 2.20(L) 3.80 - 4.80 M/mcL LAB HEMETOLOGY METHOD 08/12/2024 11:01 AM [facility] Hemoglobin 7.4(L) 11.5 - 16.0 g/dL LAB HEMETOLOGY METHOD 08/12/2024 11:01 AM [facility] Hematocrit 23.3(L) 35.0 - 47.0 % LAB HEMETOLOGY METHOD 08/12/2024 11:01 AM EDT [facility] MCV 108.4(H) 79.0 - 98.0 FL LAB HEMETOLOGY METHOD 08/12/2024 11:01 AM EDT [facility] MCH 34.4(H) 27.0 - 32.0 pcg LAB HEMETOLOGY METHOD 08/12/2024 11:[facility] MCHC 31.8(L) 32.0 - 37.0 g/dL LAB HEMETOLOGY METHOD 08/12/2024 11:01 AM EDT [facility] RDW 17.7(H) 11.0 - 15.0 % LAB HEMETOLOGY METHOD 08/12/2024 11:01 AM [facility] Platelets 203 130 - 400 K/mcL LAB HEMETOLOGY METHOD 08/12/2024 11:01 [facility] MPV 9.8 7.0 - 11.0 FL LAB HEMETOLOGY METHOD 08/12/2024 11:01 [facility] NRBC 0.0 <1.0 % LAB HEMETOLOGY METHOD 08/12/2024 11:01 AM [facility] NRBC Absolute 0.00 <0.10 K/mcL LAB HEMETOLOGY METHOD 08/12/2024 11:01 AM [facility] Blood Venous blood specimen / Unknown Venipuncture / Unknown 08/12/2024 4:49 AM EDT 08/12/2024 10:25 AM EDT us Lincoln Crespo MD LAB BLOOD ORDERABLES Final Resu lt [facility] [address] [place] [address], [place] [phone] documented in this encounter Visit Diagnoses Diagnosis Essential (primary) hypertension Unspecified essential hypertension Atherosclerotic heart disease of [place] coronary artery without angina pectoris Anemia, unspecified Chronic kidney disease, unspecified Hypothyroidism, unspecified Hyperlipidemia, unspecified documented in this encounter Care Teams Court Usher Relationship Specialty Start Date End Date John Avina DO [address] [place] [phone] PCP - General Internal Medicine 06/10/24 documented as of this encounter
--- OUTSIDE RECORDS SUMMARY | 2025-03-03 17:17 | XMS_ITS | Encounter Summary ---
Author Organization [facility] Address [address] [place] [address] Care Team Providers Care Resident Services Coordinator Name Role Phone John Avina DO Primary Care Provider [phone] Encounter Details Date Type Department Care Team (Late st Contact Info) Description 08/16/2024 Lab Requisition [facility] - Main Lab 299 [facility] [place] [address] Lincoln Crespo MD [address] [place] [address] Other ulcerative colitis with rectal [...] AM EDT) WBC 7.2 4.8 - 10.8 K/[facility] LAB HEMETOLOGY METHOD 08/16/2024 10:41 AM EDT [facility] LAB RBC 2.90(L) 3.80 - 4.80 M/[facility] LAB HEMETOLOGY METHOD 08/16/2024 10:41 [...] ORDERABLES Final Resu lt [facility] LAB [address] [place] [address], documented in this encounter Visit Diagnoses Diagnosis Other ulcerative colitis with rectal bleeding (CMS/HCC V24, CMS/HCC V28) Anemia in chronic kidney disease (CODE) documented in this encounter Care Teams Resident Services Coordinator Relationship Specialty Start Date End Date John Avina DO [address] [place] [phone] PCP - General Internal Medicine 06/10/24 documented as of this encounter
--- OUTSIDE RECORDS SUMMARY | 2025-03-03 17:17 | XMS_ITS | Encounter Summary ---
Author Organization [facility] Address [address] [place] [address] Care Team Providers Care Material Cutter Name Role Phone John Avina DO Primary Care Provider [phone] Encounter Details Date Type Department Care Team (Late st Contact Info) Description 08/19/2024 Lab Requisition [facility] - Main Lab 299 [facility] [place] [address] Lincoln Crespo MD [address] [place] [address] Essential (primary) hypertension; Atherosclerotic heart disease of [place] coronary artery without angina pectoris; Anemia, unspecified; [...] Essential (primary) hypertension Atherosclerotic heart disease of [place] coronary artery without angina pectoris Anemia, unspecified Chronic kidney disease, unspecified BASIC METABOLIC PANEL Routine 08/20/2024 6:56 AM EDT Essential (primary) hypertension Atherosclerotic heart disease of [place] coronary artery without angina pectoris Anemia, unspecified [...] Resu lt [facility] [address] [place] [address], * (ABNORMAL) Complete blood count (08/20/2024 6:56 AM EDT) [facility] WBC 8.6 4.8 - 10.8 K/mcL [...] LAB HEMETOLOGY METHOD 08/20/2024 9:58 AM EDT [facility] NRBC Absolute 0.00 <0.10 K/mcL LAB HEMETOLOGY METHOD 08/20/2024 9:58 AM EDT [facility] Blood Venous blood specimen / Unknown Venipuncture / Unknown 08/20/2024 6:56 AM EDT 08/20/2024 9:29 AM EDT us Lincoln Crespo MD LAB BLOOD ORDERABLES Final Resu lt [facility] [address] [place] [address], documented in this encounter Visit Diagnoses Diagnosis Essential (primary) hypertension Unspecified essential hypertension Atherosclerotic heart disease of [place] coronary artery without angina pectoris Anemia, unspecified Chronic kidney disease, unspecified documented in this encounter Care Teams Material Cutter Relationship Specialty Start Date End Date John Avina DO [address] [place] [phone] PCP - General Internal Medicine 06/10/24 documented as of this encounter
--- OUTSIDE RECORDS SUMMARY | 2025-03-03 17:17 | XMS_ITS | Encounter Summary ---
Author Organization [employer] Address [address] [place] [address] Care Team Providers Care Family Sociologist Name Role Phone John Avina DO Primary Care Provider [phone] Encounter Details Date Type Department Care Team (Late st Contact Info) Description 09/16/2024 Lab Requisition [facility] - Main Lab 299 [facility] [place] [address] Lincoln Crespo MD [address] [place] [address] Essential (primary) hypertension; Atherosclerotic heart disease of [place] coronary artery without angina pectoris; Anemia, unspecified; [...] Essential (primary) hypertension Atherosclerotic heart disease of [place] coronary artery without angina pectoris Anemia, unspecified Chronic kidney disease, unspecified BASIC METABOLIC PANEL Routine 09/17/2024 8:40 AM EDT Essential (primary) hypertension Atherosclerotic heart disease of [place] coronary artery without angina pectoris Anemia, [...] lt [facility] [address] [place] [address], * (ABNORMAL) Complete blood count (09/17/2024 8:40 AM EDT) [facility] WBC 6.5 4.8 - 10.8 K/mcL LAB [...] lt [facility] [address] [place] [address], documented in this encounter Visit Diagnoses Diagnosis Essential (primary) hypertension Unspecified essential hypertension Atherosclerotic heart disease of [place] coronary artery without angina pectoris Anemia, unspecified Chronic kidney disease, unspecified documented in this encounter Care Teams Family Sociologist Relationship Specialty Start Date End Date John Avina DO [address] [place] [phone] PCP - General Internal Medicine 06/10/24 documented as of this encounter
--- OUTSIDE RECORDS SUMMARY | 2025-03-03 17:17 | XMS_ITS | Encounter Summary ---
Author Organization [employer] Address [address] [place] [address] Care Team Providers Care Retail Equipment Associate Name Role Phone John Avina DO Primary Care Provider [phone] Encounter Details Date Type Department Care Team (Late st Contact Info) Description 08/14/2024 Lab Requisition [facility] - Main Lab 299 [facility] [place] [address] Lincoln Crespo MD [address] [place] [address] Essential (primary) hypertension; Atherosclerotic heart disease of [place] coronary artery without angina pectoris; Anemia, unspecified [...] Essential (primary) hypertension Atherosclerotic heart disease of [place] coronary artery without angina pectoris Anemia, unspecified COMPREHENSIVE METABOLIC PANEL Routine 08/17/2024 5:41 AM EDT Essential (primary) hypertension Atherosclerotic heart disease of [place] coronary artery without angina pectoris Anemia, unspecified documented in this encounter Results * (ABNORMAL) Comprehensive metabolic panel (08/17/2024 5:41 AM EDT) Sodium 141 133 - 145 mmol/L LAB CHEMISTRY METHOD 08/17/2024 1:27 PM EDT [facility] Potassium 3.8 3.5 - 5.5 mmol/L LAB CHEMISTRY METHOD 08/17/2024 1:27 PM [facility] Chloride 108 96 - 110 mmol/L LAB CHEMISTRY METHOD 08/17/2024 1:27 PM [facility] CO2 23 21 - 32 mmol/L LAB CHEMISTRY METHOD 08/17/2024 1:27 PM [facility] Anion Gap 10 3 - 11 LAB CHEMISTRY METHOD 08/17/2024 1:27 PM [facility] Glucose 69(L) 70 - 100 mg/dL LAB CHEMISTRY METHOD 08/17/2024 1:27 PM [facility] BUN 34(H) 5 - 25 mg/dL LAB CHEMISTRY METHOD 08/17/2024 1:27 PM [facility] Creatinine 1.53(H) 0.50 - 1.10 mg/dL LAB CHEMISTRY METHOD 08/17/2024 1:27 PM [facility] eGFR 35(L) >=60 mL/min/1. 73m2 LAB CHEMISTRY METHOD 08/17/2024 1:27 PM [facility] Comment:Calculation based on the Chronic Kidney Disease Epidemiology Collaboration (CKD-EPI) equation refit without adjustment for race. BUN/Creatinine Ratio 22.2 LAB CHEMISTRY METHOD 08/17/2024 1:27 PM [facility] Calcium 8.7 8.5 - 10.5 mg/dL LAB CHEMISTRY METHOD 08/17/2024 1:27 PM [facility] AST (SGOT) 9(L) 10 - 42 unit/L LAB CHEMISTRY METHOD 08/17/2024 1:27 PM [facility] ALT (SGPT) 8(L) 10 - 60 unit/L LAB CHEMISTRY METHOD 08/17/2024 1:27 PM [facility] Alkaline Phosphatase 67 42 - 121 unit/L LAB CHEMISTRY METHOD 08/17/2024 1:27 PM [facility] Total Protein 5.5(L) 6.0 - 8.0 g/dL LAB CHEMISTRY METHOD 08/17/2024 1:27 PM EDT [facility] Albumin 2.4(L) 3.2 - 5.0 g/dL LAB CHEMISTRY METHOD 08/17/2024 1:27 PM EDT [facility] Total Bilirubin 0.4 0.0 - 1.4 mg/dL LAB CHEMISTRY METHOD 08/17/2024 1:27 PM EDT [facility] Blood Venous blood specimen / Unknown Venipuncture / Unknown 08/17/2024 5:41 AM EDT 08/17/2024 10:15 AM EDT us Lincoln Crespo MD LAB BLOOD ORDERABLES Final Resu lt [facility] [address] [place] [address], * (ABNORMAL) Complete blood count (08/17/2024 5:41 AM EDT) WBC 7.2 4.8 - 10.8 K/mcL LAB HEMETOLOGY METHOD 08/17/2024 11:28 AM [facility] RBC 2.90(L) 3.80 - 4.80 M/mcL LAB HEMETOLOGY METHOD 08/17/2024 11:28 AM EDT [facility] Hemoglobin 9.6(L) 11.5 - 16.0 g/dL LAB HEMETOLOGY METHOD 08/17/2024 11:28 AM EDT [facility] Hematocrit 29.9(L) 35.0 - 47.0 % LAB HEMETOLOGY METHOD [facility]24 [facility] MCV 103.5(H) 79.0 - 98.0 FL LAB HEMETOLOGY METHOD 08/17/2024 11:28 AM EDT [facility] MCH 33.2(H) 27.0 - 32.0 pcg LAB HEMETOLOGY METHOD 08/17/2024 11:28 AM [facility] MCHC 32.1 32.0 - 37.0 g/dL LAB HEMETOLOGY METHOD 08/17/2024 11:28 AM [facility] RDW 18.2(H) 11.0 - 15.0 % LAB HEMETOLOGY METHOD 08/17/2024 11:28 AM [facility] Platelets 215 130 - 400 K/mcL LAB HEMETOLOGY METHOD 08/17/2024 11:28 AM [facility] MPV 9.2 7.0 - 11.0 FL LAB HEMETOLOGY METHOD 08/17/2024 11:28 AM [facility] NRBC 0.0 <1.0 % LAB HEMETOLOGY METHOD 08/17/2024 11:28 AM [facility] NRBC Absolute 0.00 <0.10 K/mcL LAB HEMETOLOGY METHOD 08/17/2024 11:28 AM [facility] Blood Venous blood specimen / Unknown Venipuncture / Unknown 08/17/2024 5:41 AM EDT 08/17/2024 10:15 AM EDT us Lincoln Crespo MD LAB BLOOD ORDERABLES Final Resu lt [facility] [address] [place] [address], documented in this encounter Visit Diagnoses Diagnosis Essential (primary) hypertension Unspecified essential hypertension Atherosclerotic heart disease of [place] coronary artery without angina pectoris Anemia, unspecified documented in this encounter Care Teams Retail Equipment Associate Relationship Specialty Start Date End Date John Avina DO [address] [place] [phone] PCP - General Internal Medicine 06/10/24 documented as of this encounter
--- OUTSIDE RECORDS SUMMARY | 2025-03-03 17:17 | XMS_ITS | Encounter Summary ---
Author Organization [employer] Address [id number] [place] [phone] Care Team Providers Care Customer Loyalty Representative Name Role Phone John Avina DO Primary Care Provider Encounter Details Date Type Department Care Team (Late st Contact Info) Description 09/18/[address] [facility] - Main Lab [address] [facility] [place] [address] Lincoln Crespo MD [address] [place] [address] Essential (primary) hypertension; Atherosclerotic heart disease of [place] coronary artery without angina pectoris; Anemia, unspecified [...] Unspecified essential hypertension Atherosclerotic heart disease of [place] coronary artery without angina pectoris Anemia, unspecified documented in this encounter Care Teams Customer Loyalty Representative Relationship Specialty Start Date End Date John Avina DO [address] [place] [phone] PCP - General Internal Medicine 06/10/24 documented as of this encounter
--- OUTSIDE RECORDS SUMMARY | 2025-03-03 17:17 | XMS_ITS | Encounter Summary ---
Author Organization [facility] [facility] Address [address] [place] [address] Care Team Providers Care Director Of Housing And Energy Services Name Role Phone John Avina DO Primary Care Provider [phone] Encounter Details Date Type Department Care Team (Late st Contact Info) Description 08/15/2024 Lab Requisition [facility] - Main Lab 299 [facility] [place] [address] Lincoln Crespo MD [address] [place] [address] Other ulcerative colitis with rectal [...] AM EDT) WBC 6.7 4.8 - 10.8 K/[facility] LAB HEMETOLOGY METHOD 08/15/2024 11:29 AM EDT [facility] RBC 3.10(L) 3.80 - 4.80 M/[facility] LAB HEMETOLOGY METHOD 08/15/2024 11:29 AM [facility] Hemoglobin 10.4(L) 11.5 - 16.0 g/dL LAB HEMETOLOGY METHOD 08/15/2024 11:29 AM [facility] Hematocrit 31.4(L) 35.0 - 47.0 % LAB HEMETOLOGY METHOD 08/15/2024 11:29 AM [facility] MCV 100.6(H) 79.0 - 98.0 FL LAB HEMETOLOGY METHOD 08/15/2024 11:29 AM [facility] MCH 33.3(H) 27.0 - 32.0 pcg LAB HEMETOLOGY METHOD 08/15/2024 11:29 AM [facility] MCHC 33.1 32.0 - 37.0 g/dL LAB HEMETOLOGY METHOD 08/15/2024 11:29 AM [facility] RDW 18.6(H) 11.0 - 15.0 % LAB HEMETOLOGY METHOD 08/15/2024 11:29 AM [facility] Platelets 228 130 - 400 K/mcL LAB HEMETOLOGY METHOD 08/15/2024 11:29 AM [facility] MPV 9.4 7.0 - 11.0 FL LAB HEMETOLOGY METHOD 08/15/2024 11:29 AM [facility] NRBC 0.0 <1.0 % LAB HEMETOLOGY METHOD 08/15/2024 11:29 AM [facility] NRBC Absolute 0.00 <0.10 K/mcL LAB HEMETOLOGY METHOD 08/15/2024 11:29 AM [facility] LAB Blood Venous blood specimen / Unknown Venipuncture / Unknown 08/15/2024 9:21 AM EDT 08/15/2024 10:30 AM EDT Lincoln Crespo MD LAB BLOOD ORDERABLES Final [facility]u [facility] LAB [address] [place] [address], documented in this encounter Visit Diagnoses Diagnosis Other ulcerative colitis with rectal bleeding (CMS/HCC V24, CMS/HCC V28) Anemia in chronic kidney disease (CODE) documented in this encounter Care Teams Director Of Housing And Energy Services Relationship Specialty Start Date End Date John Avina DO [address] [place] [phone] PCP - General Internal Medicine 06/10/24 documented as of this encounter
--- OUTSIDE RECORDS SUMMARY | 2025-03-03 17:17 | XMS_ITS | Encounter Summary ---
Author Organization [email or web address] Address [address] [place] [address] Care Team Providers Care Vp Research Name Role Phone John Avina DO Primary Care Provider [phone] Encounter Details Date Type Department Care Team (Late st Contact Info) Description 09/09/2024 Lab Requisition [facility] - Main Lab 299 [facility] [place] [address] Lincoln Crespo MD [address] [place] [address] Essential (primary) hypertension; Atherosclerotic heart disease of [place] coronary artery without angina pectoris; Anemia, unspecified; [...] Essential (primary) hypertension Atherosclerotic heart disease of [place] coronary artery without angina pectoris Anemia, unspecified Chronic kidney disease, unspecified BASIC METABOLIC PANEL Routine 09/10/2024 6:12 AM EDT Essential (primary) hypertension Atherosclerotic heart disease of [place] coronary artery without angina pectoris Anemia, unspecified [...] lt [facility] [address] [place] [address], * (ABNORMAL) Complete blood count (09/10/2024 6:12 AM EDT) [facility] WBC 5.2 4.8 - 10.8 K/mcL LAB HEMETOLOGY METHOD 09/10/2024 9:33 AM EDT [facility] RBC 2.50(L) 3.80 - 4.80 M/mcL LAB HEMETOLOGY METHOD 09/10/2024 9:33 AM EDT [facility] Hemoglobin 8.6(L) 11.5 - 16.0 g/dL LAB HEMETOLOGY METHOD 09/10/2024 9:33 AM EDT [facility] Hematocrit 26.4(L) 35.0 - 47.0 % LAB HEMETOLOGY METHOD [facility] MCV 106.5(H) 79.0 - 98.0 FL LAB HEMETOLOGY METHOD 09/10/2024 9:33 AM EDT [facility] MCH 34.7(H) 27.0 - 32.0 pcg LAB HEMETOLOGY METHOD [facility]/10/2024 [facility] MCHC 32.6 32.0 - 37.0 g/dL LAB HEMETOLOGY METHOD 09/10/2024 9[facility] RDW 19.2(H) 11.0 - 15.0 % LAB HEMETOLOGY METHOD 09/10/2024 9:33 AM EDT [facility] Platelets 161 130 - 400 K/mcL LAB HEMETOLOGY METHOD 09/10/2024 9:33 AM EDT [facility] MPV 9.3 7.0 - 11.0 FL LAB HEMETOLOGY METHOD 09/10/2024 9:33 AM EDT [facility] NRBC 0.0 <1.0 % LAB HEMETOLOGY METHOD 09/10/2024 9:33 AM EDT [facility] NRBC Absolute 0.00 <0.10 K/mcL LAB HEMETOLOGY METHOD 09/10/2024 9:33 AM EDT [facility] Blood Venous blood specimen / Unknown Venipuncture / Unknown 09/10/2024 6:12 AM EDT 09/10/2024 9:16 AM EDT us Lincoln Crespo MD LAB BLOOD ORDERABLES Final Resu lt [facility] [address] [place] [address], documented in this encounter Visit Diagnoses Diagnosis Essential (primary) hypertension Unspecified essential hypertension Atherosclerotic heart disease of [place] coronary artery without angina pectoris Anemia, unspecified Chronic kidney disease, unspecified documented in this encounter Care Teams Vp Research Relationship Specialty Start Date End Date John Avina DO [address] [place] [phone] PCP - General Internal Medicine 06/10/24 documented as of this encounter
--- OUTSIDE RECORDS SUMMARY | 2025-03-03 17:17 | XMS_ITS | Encounter Summary ---
Author Organization [employer] Address [address] [place] [address] Care Team Providers Care Time Study Engineer Name Role Phone John Avina DO Primary Care Provider [phone] Encounter Details Date Type Department Care Team (Late st Contact Info) Description 09/05/2024 Lab Requisition [facility] - Main Lab 299 [facility] [place] [address] Lincoln Crespo MD [address] [place] [address] Essential (primary) hypertension; Atherosclerotic heart disease of [place] coronary artery without angina pectoris; Anemia, unspecified [...] Essential (primary) hypertension Atherosclerotic heart disease of [place] coronary artery without angina pectoris Anemia, unspecified COMPREHENSIVE METABOLIC PANEL Routine 09/07/2024 5:11 AM EDT Essential (primary) hypertension Atherosclerotic heart disease of [place] coronary artery without angina pectoris Anemia, unspecified documented in this encounter Results * (ABNORMAL) Comprehensive metabolic panel (09/07/2024 5:11 AM EDT) Sodium 144 133 - 145 mmol/L LAB CHEMISTRY METHOD 09/07/2024 2:49 PM EDT [facility] Potassium 3.9 3.5 - 5.5 mmol/L LAB CHEMISTRY METHOD 09/07/2024 2:49 PM [facility] Chloride 109 96 - 110 mmol/L LAB CHEMISTRY METHOD 09/07/2024 2:49 PM [facility] CO2 23 21 - 32 mmol/L LAB CHEMISTRY METHOD 09/07/2024 2:49 PM [facility] Anion Gap 12(H) 3 - 11 LAB CHEMISTRY METHOD 09/07/2024 2:49 PM [facility] Glucose 77 70 - 100 mg/dL LAB CHEMISTRY METHOD 09/07/2024 2:49 PM [facility] BUN 48(H) 5 - 25 mg/dL LAB CHEMISTRY METHOD 09/07/2024 2:49 PM [facility] Creatinine 1.93(H) 0.50 - 1.10 mg/dL LAB CHEMISTRY METHOD 09/07/2024 2:49 PM [facility] LAB eGFR 26(L) >=60 mL/min/1. 73m2 LAB CHEMISTRY METHOD 09/07/2024 2:49 PM [facility] LAB Comment:Calculation based on the Chronic Kidney Disease Epidemiology Collaboration (CKD-EPI) equation refit without adjustment for race. BUN/Creatinine Ratio 24.9 LAB CHEMISTRY METHOD 09/07/2024 2:49 PM [facility] Calcium 8.9 8.5 - 10.5 mg/dL LAB CHEMISTRY METHOD 09/07/2024 2:49 PM [facility] LAB AST (SGOT) 6(L) 10 - 42 unit/L LAB CHEMISTRY METHOD 09/07/2024 2:49 PM [facility] ALT (SGPT) 14 10 - 60 unit/L LAB CHEMISTRY METHOD 09/07/2024 2:49 PM [facility] LAB Alkaline Phosphatase 61 42 - 121 unit/L LAB CHEMISTRY METHOD 09/07/2024 2:49 PM [facility] Total Protein 6.1 6.0 - 8.0 g/dL LAB CHEMISTRY METHOD 09/07/2024 2:49 PM EDT [facility] Albumin 3.0(L) 3.2 - 5.0 g/dL LAB CHEMISTRY METHOD 09/07/2024 2:49 PM EDT [facility] Total Bilirubin 0.5 0.0 - 1.4 mg/dL LAB CHEMISTRY METHOD 09/07/2024 2:49 PM EDT [facility] LAB Blood Venous blood specimen / Unknown Venipuncture / Unknown 09/07/2024 5:11 AM EDT 09/07/2024 2:11 PM EDT us Lincoln Crespo MD LAB BLOOD ORDERABLES Final Resu lt [facility] [address] [place] [address], [place] [phone] * (ABNORMAL) Complete blood count (09/07/2024 5:11 AM EDT) WBC 5.1 4.8 - 10.8 K/mcL LAB HEMETOLOGY METHOD 09/07/2024 3:07 PM EDT [facility] RBC 2.40(L) 3.80 - 4.80 M/mcL LAB HEMETOLOGY METHOD 09/07/2024 3:07 PM EDT [facility] Hemoglobin 8.2(L) 11.5 - 16.0 g/dL LAB HEMETOLOGY METHOD 09/07/2024 3:07 PM EDT [facility] Hematocrit 25.9(L) 35.0 - 47.0 % LAB HEMETOLOGY METHOD 09/07/2024 3:07 PM EDT [facility] MCV 107.9(H) 79.0 - 98.0 FL LAB HEMETOLOGY METHOD 09/07/2024 3:07 PM EDT [facility] MCH 34.2(H) 27.0 - 32.0 pcg LAB HEMETOLOGY METHOD 09/07/2024 3:07 PM EDT [facility] MCHC 31.7(L) 32.0 - 37.0 g/dL LAB HEMETOLOGY METHOD 09/07/2024 3:07 PM EDT [facility] RDW 19.3(H) 11.0 - 15.0 % LAB HEMETOLOGY METHOD 09/07/2024 3:07 PM EDT [facility] Platelets 176 130 - 400 K/mcL LAB HEMETOLOGY METHOD 09/07/2024 3:07 PM EDT [facility] MPV 9.0 7.0 - 11.0 FL LAB HEMETOLOGY METHOD 09/07/2024 3:07 PM EDT [facility] NRBC 0.0 <1.0 % LAB HEMETOLOGY METHOD 09/07/2024 3:07 PM EDT [facility] NRBC Absolute 0.00 <0.10 K/mcL LAB HEMETOLOGY METHOD 09/07/2024 3:07 PM EDT [facility] Blood Venous blood specimen / Unknown Venipuncture / Unknown 09/07/2024 5:11 AM EDT 09/07/2024 12:03 PM EDT us Lincoln Crespo MD LAB BLOOD ORDERABLES Final Resu lt [facility] [address] [place] [address], [place] [phone] documented in this encounter Visit Diagnoses Diagnosis Essential (primary) hypertension Unspecified essential hypertension Atherosclerotic heart disease of [place] coronary artery without angina pectoris Anemia, unspecified documented in this encounter Care Teams Time Study Engineer Relationship Specialty Start Date End Date John Avina DO [address] [place] [phone] PCP - General Internal Medicine 06/10/24 documented as of this encounter
== END 2025-03-03 14:30 | disposition home or self-care (01) ==
LOC: HO.HNS 14:00
PROVIDERS: PCP Internal Medicine; Referring Provider Nurse Practitioner Family; Visit Provider Physician Assistant
DX: M25.552 Pain in left hip (principal); M54.50 Low back pain, unspecified
CPT/HCPCS: 99205

== ENCOUNTER → 2025-03-03 14:00 | Outpatient (BNVA) | payer MEDICARE, SELFPAY | PROVIDERS: PCP Internal Medicine; Referring Provider Nurse Practitioner Family; Visit Provider Physician Assistant | DX: M25.552 Pain in left hip (principal); M54.50 Low back pain, unspecified | CPT/HCPCS: 99202 ==

== ENCOUNTER → 2025-03-09 23:59 | Outpatient (BNV) | payer MEDICARE, SELFPAY | PROVIDERS: PCP Internal Medicine; Visit Provider Internal Medicine Cardiovascular Disease | DX: I50.20 Unspecified systolic (congestive) heart failure (principal) | CPT/HCPCS: 93460; 99152 ==

== ENCOUNTER 2025-03-15 10:44 | Day surgery (SDC) | payer MEDICARE, SELFPAY ==
--- OUTSIDE RECORDS SUMMARY | 2025-03-09 17:00 | XMS_ITS | Continuity of Care Document ---
Author Organization [facility] ter Address [address] [place] [address]- Care Team Providers Care Railroad Conductor Name Role Phone Teena ALVAREZ, Paul Shelton Primary Care Physician [place] [facility] [place] [facility] [place]25 [place] 03/09/25 [facility] [address] [place] [address] Discharge Disposition: A-D/C Home Attending Physician: Lv Orellana MD Admitting Physician: Lv Orellana MD Referring Physician: Helio Comer MD Encounter Type: Disch Daystay Allergies, Adverse Reactions, Alerts Substance Criticality Severity [...] PM EDT Start Date: 12/17/17 Status: Ordered Medication Dispense Status: Completed Quantity: 30.0 Unit: tablet Total Allowed Fills: 1 Fills Dispensed: 0 Bumetanide = 1 mg, By Mouth, Daily, Hold for few days on discharge, before resumption, 0 Refills, Maintenance,01/31/24 11:46:00 AM EDT, Partial fill upon patient request if the prescription is for a schedule II opioid drug. Start Date: 01/31/24 Status: Ordered Medication Dispense Status: Completed Total Allowed Fills: 1 Fills Dispensed: 0 calcium carbonate 600 mg oral tablet 1 tablet = 600 mg, By Mouth, Daily, 0 Refills, Maintenance, 01/20/18 6:43:30 AM EDT Start Date: 01/20/18 Status: Ordered Medication Dispense Status: Completed Total Allowed Fills: 1 Fills Dispensed: 0 carvedilol 12.5 mg oral tablet 12.5 mg, By Mouth, 2 times a day, Refills 0, Maintenance, 08/11/24 1:48:00 PM EDT, Partial fill uponpatient request if the prescription is for a schedule II opioid drug. Start Date: 08/11/24 Status: Ordered Medication Dispense Status: Completed Total Allowed Fills: 1 Fills Dispensed: 0 cholecalciferol 1000 intl units oral tablet By Mouth, Daily, 0 Refills, Maintenance, 08/11/24 1:49:00 PM EDT, Tablet, Partial fill upon patient request if the prescription is for a schedule II opioid drug. Start Date: 08/11/24 Status: Ordered Medication Dispense Status: Completed Total Allowed Fills: 1 Fills Dispensed: 0 clopidogrel 75 mg oral tablet 75 mg, By Mouth, Daily, # 90 tablet, Refills 3, Tot. Refills 3, Maintenance, 09/19/23 4:28:00 PM EDT, Route to Pharmacy Electronically, [facility], Partial fill upon patient request if the prescription is for a schedule II opioid drug., 154, cm, 09/19/23 14:14:00 EDT, Height, 60.4, kg,09/19/23 14:14:00 EDT, Dry Weight Start Date: 09/19/23 Stop Date: 09/13/24 Status: Ordered Medication Dispense Status: Completed Quantity: 90.0 Unit: tablet Total Allowed Fills: 4 Fills Dispensed: 0 Crestor 20 mg oral tablet 1 tablet = 20 mg, By Mouth, Daily before lunch, # 30 tablet, 0 Refills, Maintenance, 08/14/18 1:09:58 PM EDT, Tablet Start Date: 08/14/18 Status: Ordered Medication Dispense Status: Completed Quantity: 30.0 Unit: tablet Total Allowed Fills: 1 Fills Dispensed: 0 D-Manouse D-Manouse, 0 Refills, Maintenance, for uti prevention, 07/09/23 11:01:00 AM EDT Start Date: 07/09/23 Status: Ordered Medication Dispense Status: Completed Total Allowed Fills: 1 Fills Dispensed: 0 folic acid 1 mg oral tablet 1 mg, 1, tablet, By Mouth, Daily, # 30 tablet, Refills 0, Maintenance, 12/17/17 2:43:56 PM EDT Start Date: 12/17/17 Status: Ordered Medication Dispense Status: Completed Quantity: 30.0 Unit: tablet Total Allowed Fills: 1 Fills Dispensed: 0 hydrALAZINE 25 mg oral tablet 25 mg, By Mouth, 2 times a day, # 60 tablet, Refills 0, Tot. Refills 0, Maintenance, 08/11/24 1:49:00 PM EDT, Do Not Route, Partial fill upon patient request if the prescription is for a schedule II opioid drug. Start Date: 08/11/24 Stop Date: 09/10/24 Status: Ordered Medication Dispense Status: Completed Quantity: 60.0 Unit: tablet Total Allowed Fills: 1 Fills Dispensed: 0 Levoxyl 0.1 mg oral tablet 0.1 mg, 1, tablet, By Mouth, Daily, # 90 each, 2 Refills, Soft Stop Start Date: 09/02/08 Stop Date: 10/02/08 Status: Ordered Medication Dispense Status: Completed Quantity: 90.0 Unit: each Total Allowed Fills: 3 Fills Dispensed: 0 ondansetron 4 mg oral tablet 1 tablet = 4 mg, By Mouth, Every 8 hours, PRN Nausea & Vomiting, # 10 tablet, 0 Refills, Maintenance, 02/08/23 1:27:00 PM EDT, Tablet, [id number], Partial fill upon patient request if theprescription is for a schedule II opioid drug., 155, cm, 01/31/23 19:46:00 EDT, Height, 60.9, kg, 01/31/23 10:53:00 EDT, Dry Weight Start Date: 02/08/23 Status: Ordered Medication Dispense Status: Completed Quantity: 10.0 Unit: tablet Total Allowed Fills: 1 Fills Dispensed: 0 vitamin E 100 iu oral capsule 1 capsule = 100 International_Units, By Mouth, Daily, # 100 capsule, 0 Refills, Maintenance, 01/31/23 10:50:00 AM EDT, Capsule, Partial fill upon patient request if the prescription is for a scheduleII opioid drug. Start Date: 01/31/23 Status: Ordered Medication Dispense Status: Completed Quantity: 100.0 Unit: capsule Total Allowed Fills: 1 Fills Dispensed: 0 Problem List Condition Confirmation Course Effective Dates Status H ealth Status Informant Chronic anemia Confirmed Active CHF (congestive heart failure) Confirmed Active HTN (hypertension) Confirmed Active Hypothyroid Confirmed Active Nephrolithiasis Confirmed Active Breast cancer, right Confirmed 2023 Active Multiple myeloma Confirmed Active Vital Signs Most recent to oldest [Reference Range]: 1 2 3 Oxygen Saturation [94-100 %] 96 % (03/09/25 4:00 PM) 95 % (03/09/25 3:46 PM) 96 % (03/09/25 3:45 PM) Pulse Rate [55-90 bpm] 71 bpm (03/09/25 1:45 PM) 70 bpm (03/09/25 1:30 PM) 71 bpm (03/09/25 1:15 PM) Blood Pressure [90-138/55-84 mm Hg] 124/75mm Hg (03/09/25 4:00 PM) 127/66mm Hg (03/09/25 3:45 PM) 128/68mm Hg (03/09/25 3:30 PM) Respiratory Rate [16-30 br/min] 22 br/min (03/09/25 4:00 PM) 20 br/min (03/09/25 3:46 PM) 34 br/min *H* (03/09/25 3:30 PM) Mode of Delivery (Oxygen) Room air (03/09/25 4:00 PM) Room air (03/09/25 3:45 PM) Room air (03/09/25 3:30 PM) Blood pressure sites Arm, right (03/09/25 4:00 PM) Arm, right (03/09/25 3:45 PM) Arm, right (03/09/25 3:30 PM) Social History Social History Type Response Sexual Sexually involved in last 6 months: No. Smoking Status Former smoker entered on: 01/10/17 Sex Sex Representation Female (finding) Procedure * Event Display: Hemodynamic Procedure Report Authored Date: History and physical note * Event Display: History and Physical Hospital Authored Date: EKG study * Event Display: ECG 12-Lead Authored Date: Please click on pdf link to open report * Event Display: ECG 12-Lead Authored Date: Ventricular Rate: 72 BPM Atrial Rate: 72 BPM P-R Interval: 192 ms QRS Duration: 106 ms Q-T Interval: 440 ms QTC Calculation(Bazett): 481 ms P [place]: 80 degrees R [place]: -25 degrees T [place]: 51 degrees Sinus rhythm with occasional Premature ventricular complexes Minimal voltage criteria for LVH, may be normal variant ( [place] product ) QTcB > 480 msec Abnormal ECG When compared with ECG of 07-Aug-2024 13:55, Premature ventricular complexes are now Present Confirmed by David Del Castillo ([id number]) on 03/09/2025 11:09:47 AM Weir: David Del Castillo Note * Alisno Montaño RN: PERFORM Event Display: Discharge/Transfer Note Hospital Authored Date: [id number] Nursing Discharge Note Entered On: 03/09/2025 17:09 EST Performed On: 03/09/2025 17:09 EST by Alison Montaño RN Nursing Discharge Note 2 Discharge Time : 03/09/2025 17:00 EST Discharge Level of Care at Discharge : Home/Long Term/Foster Care Patient Left Unit Via : Wheelchair Patient Accompanied Off Unit with : Significant other DC Instructions Provided & Signed by Pt : Yes Patient Understands D/C Instructions : Yes Patient Instructions Discharge Signed : Yes Discharge Comments : Groin sites stable after ambulation Did Pt have Specialty Bed or Wound Vac : No Alison Montaño RN - 03/09/2025 17:09 EST Electronically Signed on 03/09/25 05:09 PM Alison Montaño RN * Alison Montaño RN: PERFORM Event Display: Patient Education/Instruction Authored Date: Inpatient Adult Discharge Instructions. [address] [address] Name: SAVANNAH WASHINGTON : 1945?? Visit: 03/09/2025 10:36?? Current Date: 03/09/2025 15:50 ?? Account: [id number]?? Inpatient Adult Discharge Instructions We would like to thank you for allowing us to assist you with your healthcare needs. The following includes patient education materials and information regarding your injury/illness. Our entire staffstrives to provide an excellent experience for our patients and their families. PLEASE ENSURE YOU FOLLOW-UP PER THE INSTRUCTIONS BELOW! ?? YOUR OPINION IS IMPORTANT TO US! Please complete the survey you may receive by mail or email. Your feedback will be used to make improvements to the healthcare experiences of our patients and their families. Surveys are administered by [email or web address]. ?? If further treatment with your primary care physician or another doctor is recommended, it is important for you to keep the appointment. Call your primary care physician or return to the Emergency Department immediately if your condition worsens, fails to improve, or new symptoms develop. If you need to find a doctor, you can call [facility] for a referral at [phone] or toll free at [phone] ([phone]) or log in to [email or web address] ([employer]).. ?? [facility], in keeping with [facility] guidance, no longer requires face masks for staff, patientsor visitors in most situations. Similiar to time spent indoors at other locations, there is the chance that you were exposed to repiratory viruses during your time with us (such as flu or COVID-19). If you develop symptoms concerning for a viral respiratory infection, please seek testing (and treatment if indicated) from your medical provider or home test kit. ?? You can view and manage your care through the patient portal or by using a health care soniya of your choosing. [employer] is a website that allows you to securely view your medical information including your hospital discharge summary, office visit summaries, medications and follow-up visits. You can also request appointments, renew medications, and request access to your medical information using a health care soniya of your choosing, or just ask a question. You are entitled to know the individuals who participated in your treatment. This information is available within your medical record and will be provided upon your request. You can enroll at [email or web address] or register d uring your next office visit. You have been discharged from [facility], Patient Care Unit: CARE??. If you have any questions regarding these instructions, including results of studies pending, afteryou leave, please call us and we will be happy to assist you 12/11. [facility] Nursing Unit Direct Phone Number, for 12/11 contact and results of studies pending CARE [address] [place] [address] Your Care Team Attending Physician Lv Orellana MD?? Consulting Providers Lv Orellana MD?? Discharging Providers Lv Orellana MD Tests Performed Below is a partial list of the tests performed during your hospitalization. You may have had other tests and procedures not included in this list. Please discuss all test results with your provider. GLUCOSE POC Type and Screen Glucose POC?? Type and Screen?? Primary Care Provider Paul Dickinson MD? Advance Directive Health Care Proxy on File Yes - Health Care Proxy Discharge Vitals Pulse Rate: 71 bpm Respiratory Rate: 18 br/min Systolic Blood Pressure: 125 mm Hg Diastolic Blood Pressure: 81 mm Hg Studies Pending All studies ordered during this hospital stay have been completed unless listed below. Please discuss all pending results with your provider listed above in these instructions. ?? No incomplete studies found?? What to do next Instructions From Your Doctor ?? Orders?? Daystay Protocol, ??03/09/25 12:52:00 EST?? You Need to Schedule the Following Appointments Follow Up with??Helio Comer ?? Where:[address] [facility] [place] [address]- Business (1) Follow Up with??Paul Dickinson When:In 0 days Where:[address] [place] [address]- Business (1) Discharge Medications SAVANNAH WASHINGTON :1945 Visit Date:03/09/2025 Medications: Please continue your medications until treatment is completed or stopped by your provider. Medications not listed below should be discontinued. Discuss any questions related to medications with your provider. What How Much When Instructions Next Dose Unchanged Allopurinol (allopurinol 300 mg oral tablet) 1 tab(s) Oral Daily before lunch Unchanged Bumetanide 1 Milligram Oral Daily Special Instructions: Hold for few days on discharge, before resumption ?? Unchanged Calcium Carbonate (calcium carbonate 600 mg oral tablet) 1 tab(s) Oral Daily Unchanged Carvedilol (carvedilol 12.5 mg oral tablet) 12.5 Milligram Oral Twice a day Ordering Physician: Kelton Duval MD Unchanged Cholecalciferol (cholecalciferol 1000 intl units oral tablet) Oral Daily Ordering Physician: Kelton Duval MD Unchanged Clopidogrel (clopidogrel 75 mg oral tablet) 75 Milligram Oral Daily Duration: 90 Days Ordering Physician: London Lee MD Unchanged Folic Acid (folic acid 1 mg oral tablet) 1 tab(s) Oral Daily Unchanged hydrALAZINE (hydrALAZINE 25 mg oral tablet) 25 Milligram Oral Twice a day Duration: 30 Days Ordering Physician: Kelton Duval MD Unchanged Levothyroxine (Levoxyl 0.1 mg oral tablet) 1 tab(s) Oral Daily Ordering Physician: Noreen Perez MD Unchanged Miscellaneous Rx (D-Manouse) Special Instructions: for uti prevention ?? Unchanged Ondansetron (ondansetron 4 mg oral tablet) 1 tab(s) Oral Every 8 hours as needed for Nausea & Vomiting Ordering Physician: Felicia Huynh MD Unchanged Rosuvastatin (Crestor 20 mg oral tablet) 1 tab(s) Oral Daily before lunch Unchanged Vitamin E (vitamin E 100 iu oral capsule) 1 capsule Oral Daily Prescription Given During Visit No new medications prescribed at time of discharge.?? Laboratory Results Below is a partial list of the most recent Laboratory test results done prior to this discharge. You may have had other tests and procedures not included in this list. Please discuss all test resultswith your provider. GLUCOSE POC (03/09/2025) ???Glucose, POC - 142 mg/dL Type and Screen (03/09/2025) ???Blood Type - B Positive???Antibody Screen - Negative Allergies (NKA means No Known Allergies) Benadryl NexIUM??heart palpitations PriLOSEC??heart palpitations Problems Active Problems??(7) Breast cancer, right?? CHF (congestive heart failure)?? Chronic anemia?? HTN (hypertension)?? Hypothyroid?? Multiple myeloma?? Nephrolithiasis?? Education Materials Below is the list of Educational Leaflet Providered with your Discharge Instructions. WebMD Ignite Patient Education - Recovery After Procedural Sedation (Adult)?? WebMD Ignite Patient Education - M-Other Activity Restriction?? Web[employer] Ignite Patient Education - M-Groin I Discharge Instructions?? WebMD Ignite Patient Education - Discharge Instructions for Cardiac Catheterization?? WebMD Ignite Patient Education - Bleeding or Hematoma After Cardiac Catheterization?? Valuables and Belongings I fully understand and agree that [facility] accepts no responsibility for all my personal property including clothing, toilet articles, radios, jewelry, dentures, hearing aids, rings, money, or any other property that is in my possession or is brought to me after admission. I understand certain valuables may be placed in a hospital safe for a short period of time. I understand that the hospital is not liable for loss or damage due to accident, fire, or other natural occurrence while said property is in the safe. I accept full responsibility for any personal property that I keep with me, and will not hold the hospital responsible in case of loss or disappearance. I acknowledge that i have been encouraged to send valuables and belongings home. ? Other Discharge Information ? Pulmonary Rehab Status?? Pulmonary Rehab Discharge Status?? Respiratory Rate: 18 br/min ? Common Emergency Awareness Tips IS IT A STROKE? Act FAST and Check for these signs: FACE Does the face look uneven? ARM Does one arm drift down? SPEECH Does their speech sound strange? TIME Call at any sign of stroke ?? Heart Attack Signs Chest discomfort: Most heart attacks involve discomfort in the center of the chest and lasts more than a few minutes, or goes away and comes back. It can feel like uncomfortable pressure, squeezing, fullness or pain. Discomfort in upper body: Symptoms can include pain or discomfort in one or both arms, back, neck, jaw or stomach. Shortness of breath: With or without discomfort. Other signs: Breaking out in a cold sweat, nausea, or lightheaded. Remember, MINUTES DO MATTER. If you experience any of these heart attack warning signs, call to get immediate medical attention! ?? Smoking can increase your chances of developing chronic health problems and can cause harmful effects to other family members in your house. If you smoke, you are strongly encouraged to quit. Please call [facility] [employer] [facility] at [phone] or [phone]) or log in to [email or web address] for referrals to smoking cessation programs. ?? 638 Suicide & Crisis Lifeline is available 12/11 if you or someone you know needs to find a reason to keep living. By calling 676 you'll be connected to a skilled, trained counselor at a crisis center in your area. INPATIENT DISCHARGE INSTRUCTIONS SIGNATURE PAGE SAVANNAH WASHINGTON Location:[facility] Registration Date and Time:03/09/2025 10:36 EST Primary Care Physician: Teena ALVAREZ, Paul Shelton, Attending Physician: Esteban ALVAREZ, Lv, I FELIXSAVANNAH, have received the above patient education materials/instructions and have verbalized understanding. If ambulance or transport services are being used I further acknowledge being given a choice of service. ?? If you need to contact me, please call me at this number: . Patient/Sausage Cooker Name:SAVANNAH WASHINGTON Patient/Sausage Cooker Signature: Relationship to Patient: Witness Name/Signature: Date: * Alison Montaño RN: PERFORM, SIGN, VERIFY Event Display: Patient Education Handout Authored Date: * Alison Montaño RN: PERFORM Event Display: Patient Education Leaflets Authored Date: Recovery After Procedural Sedation (Adult) ?? [id number] Recovery After Procedural Sedation (Adult) You have been given medicine by vein to make you sleep during your procedure. This may have included both a pain medicine and sleeping medicine. You may have side effects, such as nausea, fatigue, orunsteadiness for up to 24 hours. You may also feel lightheaded. Some medical conditions, such as seizure disorders, spinal cord injuries, and some metabolic conditions, may change what your care needs are. If you have a medical condition, talk with your doctor about whether your care after the procedure might change. ?? Home care Follow these guidelines when you get home: ??? For the next 8 or more hours, ask a trusted adult to watch over you. This person should make sure your condition is not getting worse, watch for problems, and keep you safe. ??? Don't drink any alcohol??for the next 24 hours. ??? Don't drive, operate dangerous machinery, or make important business or personal decisions??during the next 24 hours. ??? Take extra care when walking and moving, You may be at a higher risk of falling. ??? Follow any instructions you were given for eating and drinking. ??? Be sure to follow all after-care directions. Note: Your doctor may tell you not to take any medicine by mouth for pain or sleep in the next 4 hours. These medicines may react with the medicines you were given in the hospital. This could cause amuch stronger response than usual. ?? Follow-up care Follow up with your doctor as advised. ?? When to contact your doctor Have someone contact your doctor or seek medical care right away if: ??? Your drowsiness gets worse. ??? Your weakness or dizziness gets worse. ??? You have repeated vomiting. ??? Your speech is slurred, and others can't understand you. ??? You have severe or ongoing pain from the procedure that's not eased by the pain medicine (if prescribed). ??? You have a fever. ??? You have a new rash. ?? Call 911 Have someone call 911 if: ??? You have trouble breathing. ??? You have trouble swallowing. ??? You have chest pain. ??? You lose consciousness or you can't be awakened. ?? Last Reviewed Date: 2023 00:00:00 ?? [id number] [employer]. All rights reserved. This information is not intended as a substitute for professional medical care. Always follow your healthcare professional's instructions. ?? * Alison Montaño RN: PERFORM Event Display: Patient Education Leaflets Authored Date: M-Other Activity Restriction ?? 187 Activity: Avoid straining your groin area for 2-3 days. Don???t squat, strain at moving your bowels, or lift anything heavier than a gallon of milk during that time. No strenuous exercise or exertionfor 2 weeks. No driving for 3 days. Try to avoid climbing stairs for 24 hours. You can take walks at a normal pace. ? * Alison Montaño RN: PERFORM Event Display: Patient Education Leaflets Authored Date: M-Groin I Discharge Instructions ?? 179 Groin Discharge Instructions No heavy lifting over 10 pounds (for example: gallon of milk) 1 week following the procedure; gradually increase normal activity over the next 5 days. Avoid straining/pushing when moving bowels You may feel like resting more after your procedure. Slowly start to do more each day. Rest when you feel it is needed. Make sure to look at your procedure site every day until it is completely healed. You may see bruising at the puncture site and that is common after the procedure. You may shower the day after your procedure. Remove the band aid before showering. Wash the area gently with soap and water. Leave open to air. Do not take tub baths, hot tubs, soaking of the puncture site or swimming for 1 week. Do not put any creams, powders or lotions on your puncture site You may resume sexual activity the day after your procedure; avoid bending the hip on ?? the side of the groin puncture excessively and any strenuous positions for 1 week. Call your doctor if your procedure site develops any of the following: ??? New onset severe pain ??? New onset lump or swelling ??? Bleeding that does not stop with lightpressure ? Patient Care team information Care Team Personnel Name: Meredith Hammond Position: [facility] Onco RN Member Role: Primary Care Nurse Name: Taya Doshi RN Position: [facility] Rad RN Member Role: Primary Care Nurse Name: Brissa Turner RN Position: S RN Member Role: Primary Care Nurse Name: Kenyatta Be RN Position: [facility] RN Member Role: Primary Care Nurse Name: Juliana Campos RN Position: [facility] Onco RN Member Role: Primary Care Nurse Name: Delores Soni RN Position: [facility] RN Member Role: Primary Care Nurse Name: Haylee Eaton RN Position: [facility] Onco RN Member Role: Primary Care Nurse Name: Rachelle Woods RN Position: [facility] RN Member Role: Primary Care Nurse Name: Mejia Soler MD Position: [facility] Renal MD Member Role: Lifetime Consulting Physician Address: [address] [place] [address] [address] [facility] [place] [address]- Telecom: Name: Deanne Mccauley RN Position: [facility] RN Member Role: Primary Care Nurse Name: Dominique Sosa RN Position: [facility] RN Member Role: Primary Care Nurse Name: Paul Dickinson MD Position: Reference Physician Member Role: PCP Address: [address] [facility] [address] [place] [address]- Telecom: Name: Rema Jeffers RN Position: [facility] Onco RN Member Role: Primary Care Nurse Care Team Related Persons Name: KOJO KAPLAN Name: KOJO DODGE Name: JW LIU Insurance Providers Guarantor name: SAVANNAH FELIX [employer] [facility] Information #: 1 Payer: MEDICARE B Payer Identifier: NA Member Number: [id number] Group Number: NA Subscriber Identifier: [id number] Relationship to Subscriber: self Coverage Type: NA Coverage Verification Date: NA Telecom: NA Address: Health Plan Information #: 2 Payer: MEDEX SECONDARY ONLY Payer Identifier: SAM Member Number: [id number] Group Number: [id number] Subscriber Identifier: [id number] Relationship to Subscriber: self Coverage Type: Medicare Other Coverage Verification Date: SAM Telecom: SAM Address:
--- OUTSIDE RECORDS SUMMARY | 2025-03-12 14:26 | XMS_ITS | Clinical Summary ---
Author Organization [address] Address [address] [place] [address] Phone Care Team Providers Care Equal Opportunity Officer Name Role Phone FabriceJohn solares Primary Care Provider [phone] Social History Tobacco Use Types Packs/Day Years [...] mmol/L LAB CHEMISTRY METHOD 09/17/2024 11:11 AM [facility] Potassium 4.0 3.5 - 5.5 mmol/L LAB CHEMISTRY METHOD 09/17/2024 11:11 AM [facility] Chloride 109 96 - 110 mmol/L LAB CHEMISTRY METHOD 09/17/2024 11:11 AM [facility] CO2 24 21 - 32 mmol/L LAB CHEMISTRY METHOD 09/17/2024 11:11 AM [facility] Anion Gap 8 3 - 11 LAB CHEMISTRY METHOD 09/17/2024 11:11 AM [facility] Glucose 103(H) 70 - 100 mg/dL LAB CHEMISTRY METHOD 09/17/2024 11:11 AM EDT [facility] BUN 49(H) 5 - 25 mg/dL LAB CHEMISTRY METHOD 09/17/2024 11:11 AM EDT [facility] Creatinine 1.74(H) 0.50 - 1.10 mg/dL LAB CHEMISTRY METHOD 09/17/2024 11:11 AM EDT [facility] eGFR 30(L) >=60 mL/min/1. 73m2 LAB CHEMISTRY METHOD 09/17/2024 11:11 AM EDT [facility] Comment:Calculation based on the Chronic Kidney Disease Epidemiology Collaboration (CKD-EPI) equation refit without adjustment for race. BUN/Creatinine Ratio 28.2 LAB CHEMISTRY METHOD 09/17/2024 11:11 AM EDT [facility] Calcium 9.3 8.5 - 10.5 mg/dL LAB CHEMISTRY METHOD 09/17/2024 11:11 AM EDT [facility] Blood Venous blood specimen / Unknown Venipuncture / Unknown 09/17/2024 8:40 AM EDT 09/17/2024 10:05 AM EDT Lincoln Crespo MD LAB BLOOD ORDERABLES Final Resu lt [facility] [address] [place] [address], from Last 3 Months or Most Recently Relevant to Health Maintenance Insurance MEDICARE [facility] MEDICARE Care Teams Equal Opportunity Officer Relationship Specialty Start Date End Date John Avina DO [address] [place] [phone] PCP - General Internal Medicine 06/10/24
--- OUTSIDE RECORDS SUMMARY | 2025-03-12 14:26 | XMS_ITS | Encounter Summary ---
Author Organization [facility] Address [address] [place] [address] Care Team Providers Care [address] Mechanical Engineer Name Role Phone John Avina DO Primary Care Provider [phone] Encounter Details Date Type Department Care Team (Late st Contact Info) Description 08/17/2024 Lab Requisition [facility] - Main Lab 299 [facility] [place] [address] Lincoln Crespo MD [address] [place] [address] Other ulcerative colitis with rectal [...] AM EDT) WBC 7.1 4.8 - 10.8 K/[facility] LAB HEMETOLOGY METHOD 08/18/2024 11:09 AM EDT [facility] RBC 2.80(L) 3.80 - 4.80 M/[facility] LAB HEMETOLOGY METHOD 08/18/2024 11:09 AM [facility] Hemoglobin 9.2(L) 11.5 - 16.0 g/dL LAB HEMETOLOGY METHOD 08/18/2024 11:09 AM [facility] Hematocrit 28.6(L) 35.0 - 47.0 % LAB HEMETOLOGY METHOD 08/18/2024 11:09 AM [facility] MCV 103.6(H) 79.0 - 98.0 FL LAB HEMETOLOGY METHOD 08/18/2024 11:09 AM [facility] MCH 33.3(H) 27.0 - 32.0 pcg LAB HEMETOLOGY METHOD 08/18/2024 11:09 AM [facility] MCHC 32.2 32.0 - 37.0 g/dL LAB HEMETOLOGY METHOD 08/18/2024 11:09 AM [facility] RDW 18.5(H) 11.0 - 15.0 % LAB HEMETOLOGY METHOD 08/18/2024 11:09 AM [facility] Platelets 216 130 - 400 K/mcL LAB HEMETOLOGY METHOD 08/18/2024 11:09 AM [facility] MPV 9.2 7.0 - 11.0 FL LAB HEMETOLOGY METHOD 08/18/2024 11:09 AM [facility] NRBC 0.0 <1.0 % LAB HEMETOLOGY METHOD 08/18/2024 11:09 AM [facility] NRBC Absolute 0.00 <0.10 K/mcL LAB HEMETOLOGY METHOD 08/18/2024 11:09 AM [facility] Blood Venous blood specimen / Unknown Venipuncture / Unknown 08/18/2024 4:57 AM EDT 08/18/2024 10:57 AM EDT Lincoln Crespo MD LAB BLOOD ORDERABLES [facility] LAB [address] [place] [address], documented in this encounter Visit Diagnoses Diagnosis Other ulcerative colitis with rectal bleeding (CMS/HCC V24, CMS/HCC V28) Anemia in chronic kidney disease (CODE) documented in this encounter Care Teams Rd Mechanical Engineer Relationship Specialty Start Date End Date John Avina DO [address] [place] [phone] PCP - General Internal Medicine 06/10/24 documented as of this encounter
--- OUTSIDE RECORDS SUMMARY | 2025-03-12 14:26 | XMS_ITS | Encounter Summary ---
Author Organization [facility] Address [address] [place] [address] Care Team Providers Care Nuclear Equipment Test Engineer Name Role Phone John Avina DO Primary Care Provider [phone] Encounter Details Date Type Department Care Team (Late st Contact Info) Description 06/10/2024 Lab Requisition [facility] - Main Lab 299 [facility] [place] [address] Arianna Iraheta PA [address] [place], [place] [id number] Dysuria Social History Tobacco Use Types Packs/Day [...] ssp pneumoniae(A) RIC 06/12/2024 11:01 AM EST [facility] ([facility] Comment: This is an [...] MICROBIOLOGY - GENERAL ORD ERABLES Final Result [facility] ([facility] HOSPITAL LAB [address] [place] [address], documented in this encounter Visit Diagnoses Diagnosis Dysuria documented in this encounter Care Teams Nuclear Equipment Test Engineer Relationship Specialty Start Date End Date John Avina DO [address] [place] [phone] PCP - General Internal Medicine 06/10/24 documented as of this encounter
--- OUTSIDE RECORDS SUMMARY | 2025-03-12 14:26 | XMS_ITS | Encounter Summary ---
Author Organization [facility] Address [address] [place] [address] Care Team Providers Care Solid Waste Engineer Name Role Phone John Avina DO Primary Care Provider [phone] Encounter Details Date Type Department Care Team (Late st Contact Info) Description 08/19/2024 Lab Requisition [facility] - Main Lab 299 [facility] [place] [address] Lincoln Crespo MD [address] [place] [address] Essential (primary) hypertension; Atherosclerotic heart disease of [place] coronary artery without angina pectoris; Anemia, unspecified; [...] Essential (primary) hypertension Atherosclerotic heart disease of [place] coronary artery without angina pectoris Anemia, unspecified Chronic kidney disease, unspecified BASIC METABOLIC PANEL Routine 08/20/2024 6:56 AM EDT Essential (primary) hypertension Atherosclerotic heart disease of [place] coronary artery without angina pectoris Anemia, unspecified [...] lt [facility] [address] [place] [address], * (ABNORMAL) Complete blood count (08/20/2024 6:56 AM EDT) [facility] WBC 8.6 4.8 - 10.8 K/mcL [...] lt [facility] [address] [place] [address], documented in this encounter Visit Diagnoses Diagnosis Essential (primary) hypertension Unspecified essential hypertension Atherosclerotic heart disease of [place] coronary artery without angina pectoris Anemia, unspecified Chronic kidney disease, unspecified documented in this encounter Care Teams Solid Waste Engineer Relationship Specialty Start Date End Date John Avina DO [address] [place] [phone] PCP - General Internal Medicine 06/10/24 documented as of this encounter
--- OUTSIDE RECORDS SUMMARY | 2025-03-12 14:27 | XMS_ITS | Encounter Summary ---
Author Organization [facility] Address [address] [place] [address] Care Team Providers Care Acoustical Tile Drill Press Operator Name Role Phone John Avina DO Primary Care Provider [phone] Encounter Details Date Type Department Care Team (Late st Contact Info) Description 08/15/2024 Lab Requisition [facility] - Main Lab [address] [facility] [place] [address] Lincoln Crespo MD [address] [place] [address] Other ulcerative colitis with rectal [...] AM EDT) WBC 6.7 4.8 - 10.8 K/[facility] LAB HEMETOLOGY METHOD 08/15/2024 11:29 AM EDT [facility] RBC 3.10(L) 3.80 - 4.80 M/[facility] LAB HEMETOLOGY METHOD 08/15/2024 11:29 AM [facility] Hemoglobin 10.4(L) 11.5 - 16.0 g/dL LAB HEMETOLOGY METHOD 08/15/2024 11:29 AM [facility] Hematocrit 31.4(L) 35.0 - 47.0 % LAB HEMETOLOGY METHOD 08/15/2024 11:29 AM [facility] MCV 100.6(H) 79.0 - 98.0 FL LAB HEMETOLOGY METHOD 08/15/2024 11:29 AM [facility] MCH 33.3(H) 27.0 - 32.0 pcg LAB HEMETOLOGY METHOD 08/15/2024 11:29 AM [facility] MCHC 33.1 32.0 - 37.0 g/dL LAB HEMETOLOGY METHOD 08/15/2024 11:29 AM [facility] RDW 18.6(H) 11.0 - 15.0 % LAB HEMETOLOGY METHOD 08/15/2024 11:29 AM [facility] Platelets 228 130 - 400 K/mcL LAB HEMETOLOGY METHOD 08/15/2024 11:29 AM [facility] MPV 9.4 7.0 - 11.0 FL LAB HEMETOLOGY METHOD 08/15/2024 11:29 AM [facility] NRBC 0.0 <1.0 % LAB HEMETOLOGY METHOD 08/15/2024 11:29 AM [facility] NRBC Absolute 0.00 <0.10 K/mcL LAB HEMETOLOGY METHOD 08/15/2024 11:29 AM [facility] Blood Venous blood specimen / Unknown Venipuncture / Unknown 08/15/2024 9:21 AM EDT 08/15/2024 10:30 AM EDT Lincoln Crespo MD LAB BLOOD ORDERABLES Final [facility] LAB [address] [place] [address], documented in this encounter Visit Diagnoses Diagnosis Other ulcerative colitis with rectal bleeding (CMS/HCC V24, CMS/HCC V28) Anemia in chronic kidney disease (CODE) documented in this encounter Care Teams Acoustical Tile Drill Press Operator Relationship Specialty Start Date End Date John Avina DO [address] [place] [phone] PCP - General Internal Medicine 06/10/24 documented as of this encounter
--- OUTSIDE RECORDS SUMMARY | 2025-03-12 14:27 | XMS_ITS | Encounter Summary ---
Author Organization [facility] Address [address] [place] [address] Care Team Providers Care Weaver Tire Cord Name Role Phone John Avina DO Primary Care Provider Encounter Details Date Type Department Care Team (Late st Contact Info) Description 09/02/2024 Lab Requisition [facility] - Main Lab 299 [facility] [place] [address] Lincoln Crespo MD [address] [place] [address] Essential (primary) hypertension; Atherosclerotic heart disease of [place] coronary artery without angina pectoris; Anemia, unspecified; [...] Essential (primary) hypertension Atherosclerotic heart disease of [place] coronary artery without angina pectoris Anemia, unspecified Chronic kidney disease, unspecified BASIC METABOLIC PANEL Routine 09/03/2024 7:35 AM EDT Essential (primary) hypertension Atherosclerotic heart disease of [place] coronary artery without angina pectoris Anemia, unspecified [...] Resu lt [facility] [address] [place] [address], * (ABNORMAL) Complete blood count (09/03/2024 7:35 AM EDT) [facility] Signature WBC 4.5(L) 4.8 - 10.8 K/mcL LAB HEMETOLOGY METHOD 09/03/2024 8:[address] [facility] RBC 2.60(L) 3.80 - 4.80 M/mcL LAB HEMETOLOGY METHOD 09/03/2024 8:[address] [facility] Hemoglobin 8.8(L) 11.5 - 16.0 [...] LAB HEMETOLOGY METHOD 09/03/2024 8:[address] [facility] Platelets 200 130 - 400 K/mcL LAB HEMETOLOGY METHOD 09/03/2024 8:[address] [facility] MPV 9.2 7.0 - 11.0 FL LAB HEMETOLOGY METHOD 09/03/2024 8:46 AM EDT [facility] NRBC 0.0 <1.0 % LAB HEMETOLOGY METHOD 09/03/2024 8:[address] [facility] NRBC Absolute 0.00 <0.10 K/mcL LAB HEMETOLOGY METHOD 09/03/2024 8:[address] [facility] Blood Venous blood specimen / Unknown Venipuncture / Unknown 09/03/2024 7:35 AM EDT 09/03/2024 8:28 AM EDT us Lincoln Crespo MD LAB BLOOD ORDERABLES Final Resu lt [facility] ([facility] [address] [place] [address], documented in this encounter Visit Diagnoses Diagnosis Essential (primary) hypertension Unspecified essential hypertension Atherosclerotic heart disease of [place] coronary artery without angina pectoris Anemia, unspecified Chronic kidney disease, unspecified documented in this encounter Care Teams Weaver Tire Cord Relationship Specialty Start Date End Date John Avina DO [address] [place] [phone] PCP - General Internal Medicine 06/10/24 documented as of this encounter
--- OUTSIDE RECORDS SUMMARY | 2025-03-12 14:27 | XMS_ITS | Encounter Summary ---
Author Organization [facility] Address [address] [place] [address] Care Team Providers Care Mobile Home Installer Name Role Phone John Avina DO Primary Care Provider [phone] Encounter Details Date Type Department Care Team (Late st Contact Info) Description 08/16/2024 Lab Requisition [facility] - Main Lab 299 [facility] [place] [address] Lincoln Crespo MD [address] [place] [address] Other ulcerative colitis with rectal [...] AM EDT) WBC 7.2 4.8 - 10.8 K/Health system LAB HEMETOLOGY METHOD 08/16/2024 10:41 AM EDT [facility] RBC 2.90(L) 3.80 - 4.80 M/Health system LAB HEMETOLOGY METHOD 08/16/2024 10:41 AM [facility] Hemoglobin 9.7(L) 11.5 - 16.0 g/dL LAB HEMETOLOGY METHOD 08/16/2024 10:41 AM [facility] LAB Hematocrit 29.9(L) 35.0 - 47.0 % LAB HEMETOLOGY METHOD 08/16/2024 10:41 AM [facility] MCV 101.7(H) 79.0 - 98.0 FL LAB HEMETOLOGY METHOD 08/16/2024 10:41 AM [facility] MCH 33.0(H) 27.0 - 32.0 pcg LAB HEMETOLOGY METHOD 08/16/2024 10:41 AM [facility] LAB MCHC 32.4 32.0 - 37.0 g/dL LAB HEMETOLOGY METHOD 08/16/2024 10:41 AM [facility] RDW 18.1(H) 11.0 - 15.0 % LAB HEMETOLOGY METHOD 08/16/2024 10:41 AM [facility] Platelets 246 130 - 400 K/mcL LAB HEMETOLOGY METHOD 08/16/2024 10:41 AM [facility] LAB MPV 9.2 7.0 - 11.0 FL LAB HEMETOLOGY METHOD 08/16/2024 10:41 AM [facility] NRBC 0.0 <1.0 % LAB HEMETOLOGY METHOD 08/16/2024 10:41 AM [facility] NRBC Absolute 0.00 <0.10 K/mcL LAB HEMETOLOGY METHOD 08/16/2024 10:41 AM [facility] Blood Venous blood specimen / Unknown Venipuncture / Unknown 08/16/2024 8:48 AM EDT 08/16/2024 10:02 AM EDT Lincoln Crespo MD LAB BLOOD ORDERABLES [facility] [address] [place] [address], documented in this encounter Visit Diagnoses Diagnosis Other ulcerative colitis with rectal bleeding (CMS/HCC V24, CMS/HCC V28) Anemia in chronic kidney disease (CODE) documented in this encounter Care Teams Mobile Home Installer Relationship Specialty Start Date End Date John Avina DO [address] [place] [phone] PCP - General Internal Medicine 06/10/24 documented as of this encounter
--- OUTSIDE RECORDS SUMMARY | 2025-03-12 14:27 | XMS_ITS | Clinical Summary ---
Author Organization [facility] Address [address] [facility] [address] [place] [address] Phone Care Team Providers Care Coconut Boiler Name Role Phone Aniceto Emery MD Primary Care Provider [phone] Juliann Tse MD Unavailable [phone] Henrry Espino MD Unavailable [phone] Allergies Active Allergy Reactions Criticality Noted Date [...] Smoking Tobacco: Former Cigarettes 1 23 1 459 - 6802 Education Answer Date Recorded Are you interested [...] EST) SODIUM 138 135 - 145 mmol/L [facility] LIC# [id number] POTASSIUM 3.8 3.5 - 5.0 mmol/L [facility] LIC# [id number] CHLORIDE 104 98 - 108 mmol/L [facility] LIC# [id number] CO2 27 23 - 32 mmol/L [facility] LIC# [id number] BUN 28(H) 9 - 25 mg/dL [facility] LIC# [id number] CREATININE 1.26 0.7 - 1.3 mg/dL [facility] LIC# [id number] GLUCOSE 143(H) 70 - 100 mg/dL [facility] LIC# [id number] ALBUMIN 4.3 3.7 - 5.4 g/dL [facility] LIC# [id number] TOTAL PROTEIN 7.4 6.0 - 8.0 g/dL [facility] LIC# [id number] CALCIUM 9.8 8.8 - 10.5 mg/dL [facility] LIC# [id number] ALKALINE PHOSPHATASE 82 36 - 118 U/L [facility] LIC# [id number] TOTAL BILIRUBIN 0.5 0.2 - 1.2 mg/dL [facility] LIC# [id number] AST 15 9 - 30 U/L [facility] LIC# [id number] ALT 16 7 - 52 U/L [facility] LIC# [id number] GLOBULIN 3.1 2.3 - 4.2 g/dL [facility] LIC# [id number] EGFR 42 mL/min/1.7 3m2 [facility] LIC# [id number] Comment:Abnormal if <60 mL/m in/1.73m2. If patient is -[place], multiply the result by 1.21. ANION GAP 7 5 - 17 mmol/L [facility] LIC# [id number] 06/04/2016 4:11 PM EST 06/04/2016 4:19 PM EST us Henrry Espino MD LAB BLOOD BKR ORDERABLES Fi nal Result [facility] LIC# [id number] [address] [place] [address] from Last 3 Months or Most Recently Relevant to Health Maintenance Insurance [place] [address] [place] [address] [place] [address] [place] [address] [place] [place] [address] [place] [address] [place] [address] [place] [address] [place] [address] PPO [facility] PPO Advance Directives For more information, please contact: [phone] (9AM - 5PM [facility], Saturday-Saturday) Documents on File Type Date Recorded Patient High School Director Expl anation Healthcare Proxy 06/04/2016 3:21 PM HCP Care Teams Coconut Boiler Relationship Specialty Start Date End Date Aniceto Emery MD PCP - General Internal Medicine 04/25/16 Henrry Espino MD [address] [place] [address] Multiple Myeloma [facility] [place] [address] [email or web address] PCP - Hematology/Oncology Medical Oncology 06/06/16 Juliann Tse MD [address] [place] [email or web address] Referring Physician Hematology and Oncology 04/25/16 Additional Source Comments The information contained in this document represents components of the legal health record. It is not the complete legal health record.[facility]
--- OUTSIDE RECORDS SUMMARY | 2025-03-12 14:27 | XMS_ITS | Encounter Summary ---
Author Organization [employer] Address [address] [place] [address] Care Team Providers Care Seafood Preparer Name Role Phone John Avina DO Primary Care Provider Encounter Details Date Type Department Care Team (Late st Contact Info) Description 08/26/[address] [facility] - Main Lab [address] [facility] [place] [address] Lincoln Crespo MD [address] [place] [address] Essential (primary) hypertension; Atherosclerotic heart disease of [place] coronary artery without angina pectoris; Anemia, unspecified; [...] Essential (primary) hypertension Atherosclerotic heart disease of [place] coronary artery without angina pectoris Anemia, unspecified Chronic kidney disease, unspecified BASIC METABOLIC PANEL Routine 08/27/2024 5:31 AM EDT Essential (primary) hypertension Atherosclerotic heart disease of [place] coronary artery without angina pectoris Anemia, unspecified [...] Resu lt [facility] [address] [place] [address], * (ABNORMAL) Complete blood count (08/27/2024 5:31 AM EDT) [facility] WBC 5.4 4.8 - 10.8 K/mcL LAB HEMETOLOGY [facility] RBC 2.70(L) 3.80 - [...] Resu lt [facility] [address] [place] [address], documented in this encounter Visit Diagnoses Diagnosis Essential (primary) hypertension Unspecified essential hypertension Atherosclerotic heart disease of [place] coronary artery without angina pectoris Anemia, unspecified Chronic kidney disease, unspecified documented in this encounter Care Teams Seafood Preparer Relationship Specialty Start Date End Date John Avina DO [address] [place] [phone] PCP - General Internal Medicine 06/10/24 documented as of this encounter
--- OUTSIDE RECORDS SUMMARY | 2025-03-12 14:27 | XMS_ITS | Encounter Summary ---
Author Organization [employer] Address [address] [place] [phone] Care Team Providers Care Potato Inspector Name Role Phone John Avina DO Primary Care Provider [phone] Encounter Details Date Type Department Care Team (Late st Contact Info) Description 09/18/[address] [facility] - Main Lab [address] [facility] [place] [address] Lincoln Crespo MD [address] [place] [address] Essential (primary) hypertension; Atherosclerotic heart disease of [place] coronary artery without angina pectoris; Anemia, unspecified [...] Unspecified essential hypertension Atherosclerotic heart disease of [place] coronary artery without angina pectoris Anemia, unspecified documented in this encounter Care Teams Potato Inspector Relationship Specialty Start Date End Date John Avina DO [address] [place] [phone] PCP - General Internal Medicine 06/10/24 documented as of this encounter
--- OUTSIDE RECORDS SUMMARY | 2025-03-12 14:27 | XMS_ITS | Encounter Summary ---
Author Organization [employer] [facility] Address [address] [place] [address] Care Team Providers Care Rug Inspector Helper Name Role Phone John Avina DO Primary Care Provider [phone] Encounter Details Date Type Department Care Team (Late st Contact Info) Description 09/14/2024 Lab Requisition [facility] - Main Lab 299 [facility] [place] [address] Lincoln Crespo MD [address] [place] [address] Essential (primary) hypertension; Atherosclerotic [...] LAB HEMETOLOGY METHOD 09/15/2024 12:07 PM EDT [facility] ([facility]) [facility] LAB RBC 2.30(L) 3.80 - 4.80 M/mcL [...] lt [facility] LAB [address] [place] [address], [place] [phone] * (ABNORMAL) Comprehensive metabolic panel (09/15/2024 7:05 [...] lt [facility] LAB [address] [place] [address], documented in this encounter Visit Diagnoses Diagnosis Essential (primary) hypertension Unspecified essential hypertension Atherosclerotic heart disease of [place] coronary artery without angina pectoris Anemia, unspecified documented in this encounter Care Teams Rug Inspector Helper Relationship Specialty Start Date End Date John Avina DO [address] [place] [phone] PCP - General Internal Medicine 06/10/24 documented as of this encounter
--- OUTSIDE RECORDS SUMMARY | 2025-03-12 14:27 | XMS_ITS | Encounter Summary ---
Author Organization [employer] Address [address] [place] [address] Care Team Providers Care Cloth Shearing Supervisor Name Role Phone John Avina DO Primary Care Provider [phone] Encounter Details Date Type Department Care Team (Late st Contact Info) Description 09/09/2024 Lab Requisition [facility] - Main Lab 299 [facility] [place] [address] Lincoln Crespo MD [address] [place] [address] Essential (primary) hypertension; Atherosclerotic heart disease of [place] coronary artery without angina pectoris; Anemia, unspecified; [...] Essential (primary) hypertension Atherosclerotic heart disease of [place] coronary artery without angina pectoris Anemia, unspecified Chronic kidney disease, unspecified BASIC METABOLIC PANEL Routine 09/10/2024 6:12 AM EDT Essential (primary) hypertension Atherosclerotic heart disease of [place] coronary artery without angina pectoris Anemia, unspecified Chronic kidney disease, unspecified documented in this encounter Results * (ABNORMAL) Basic metabolic panel (09/10/2024 6:12 AM EDT) Sodium 146(H) 133 - 145 mmol/L LAB CHEMISTRY METHOD 09/10/2024 10:04 AM [facility] LAB Potassium 4.0 3.5 - 5.5 mmol/L LAB CHEMISTRY METHOD 09/10/2024 10:04 AM [facility] LAB Chloride 113(H) 96 - 110 mmol/L LAB CHEMISTRY METHOD 09/10/2024 10:04 AM [facility] LAB CO2 26 21 - 32 mmol/L LAB CHEMISTRY METHOD 09/10/2024 10:04 AM [facility] LAB Anion Gap 7 3 - 11 LAB CHEMISTRY METHOD 09/10/2024 10:04 AM [facility] LAB Glucose 84 70 - 100 mg/dL LAB CHEMISTRY METHOD 09/10/2024 10:04 AM [facility] LAB BUN 44(H) 5 - 25 mg/dL LAB CHEMISTRY METHOD 09/10/2024 10:04 AM [facility] LAB Creatinine 2.03(H) 0.50 - 1.10 mg/dL LAB CHEMISTRY METHOD 09/10/2024 10:04 AM [facility] LAB eGFR 25(L) >=60 mL/min/1. 73m2 LAB CHEMISTRY METHOD 09/10/2024 10:04 AM [facility] LAB Comment:Calculation based on the Chronic Kidney Disease Epidemiology Collaboration (CKD-EPI) equation refit without adjustment for race. BUN/Creatinine Ratio 21.7 LAB CHEMISTRY METHOD 09/10/2024 10:04 AM [facility] LAB Calcium 8.8 8.5 - 10.5 mg/dL LAB CHEMISTRY METHOD 09/10/2024 10:04 AM [facility] LAB Blood Venous blood specimen / Unknown Venipuncture / Unknown 09/10/2024 6:12 AM EDT 09/10/2024 9:16 AM EDT us Lincoln Crespo MD LAB BLOOD ORDERABLES Final Resu lt [facility] LAB [address] [place] [address], * (ABNORMAL) Complete blood count (09/10/2024 6:12 AM EDT) [facility] WBC 5.2 4.8 - 10.8 K/mcL LAB HEMETOLOGY METHOD 09/10/2024 9:33 AM EDT [facility] LAB RBC 2.50(L) 3.80 - 4.80 M/mcL LAB HEMETOLOGY METHOD 09/10/2024 9:33 AM EDT [facility] LAB Hemoglobin 8.6(L) 11.5 - 16.0 g/dL LAB HEMETOLOGY METHOD 09/10/2024 9:33 AM EDT [facility] LAB Hematocrit 26.4(L) 35.0 - 47.0 % LAB HEMETOLOGY METHOD 09/10/2024 9:[facility] MCV 106.5(H) 79.0 - 98.0 FL LAB HEMETOLOGY METHOD 09/10/2024 9:33 AM EDT [facility] LAB MCH 34.7(H) 27.0 - 32.0 pcg LAB HEMETOLOGY METHOD 09/10/2024 9:33 [facility] MCHC 32.6 32.0 - 37.0 g/dL LAB HEMETOLOGY METHOD 09/10/2024 9:33 [facility] RDW 19.2(H) 11.0 - 15.0 % LAB HEMETOLOGY METHOD 09/10/2024 9:33 AM EDT [facility] LAB Platelets 161 130 - 400 K/mcL LAB HEMETOLOGY METHOD 09/10/2024 9:33 AM EDT [facility] LAB MPV 9.3 7.0 - 11.0 FL LAB HEMETOLOGY METHOD 09/10/2024 9:33 AM EDT [facility] LAB NRBC 0.0 <1.0 % LAB HEMETOLOGY METHOD 09/10/2024 9:33 AM EDT [facility] LAB NRBC Absolute 0.00 <0.10 K/mcL LAB HEMETOLOGY METHOD 09/10/2024 9:33 AM EDT [facility] LAB Blood Venous blood specimen / Unknown Venipuncture / Unknown 09/10/2024 6:12 AM EDT 09/10/2024 9:16 AM EDT us Lincoln Crespo MD LAB BLOOD ORDERABLES Final Resu lt [facility] ([facility]) [facility] LAB [address] [place] [address], documented in this encounter Visit Diagnoses Diagnosis Essential (primary) hypertension Unspecified essential hypertension Atherosclerotic heart disease of [place] coronary artery without angina pectoris Anemia, unspecified Chronic kidney disease, unspecified documented in this encounter Care Teams Cloth Shearing Supervisor Relationship Specialty Start Date End Date John Avina DO [address] [place] [phone] PCP - General Internal Medicine 06/10/24 documented as of this encounter
--- OUTSIDE RECORDS SUMMARY | 2025-03-12 14:27 | XMS_ITS | Encounter Summary ---
Author Organization [employer] Address [address] [place] [address] Care Team Providers Care Microsoft Architect Name Role Phone John Avina DO Primary Care Provider [phone] Encounter Details Date Type Department Care Team (Late st Contact Info) Description 09/05/2024 Lab Requisition [facility] - Main Lab 299 [facility] [place] [address] Lincoln Crespo MD [address] [place] [address] Essential (primary) hypertension; Atherosclerotic heart disease of [place] coronary artery without angina pectoris; Anemia, unspecified [...] Essential (primary) hypertension Atherosclerotic heart disease of [place] coronary artery without angina pectoris Anemia, unspecified COMPREHENSIVE METABOLIC PANEL Routine 09/07/2024 5:11 AM EDT Essential (primary) hypertension Atherosclerotic heart disease of [place] coronary artery without angina pectoris Anemia, unspecified documented in this encounter Results * (ABNORMAL) Comprehensive metabolic panel (09/07/2024 5:11 AM EDT) Sodium 144 133 - 145 mmol/L LAB CHEMISTRY METHOD 09/07/2024 2:49 PM EDT [facility] ([facility] LAB Potassium 3.9 3.5 - 5.5 mmol/L LAB CHEMISTRY METHOD 09/07/2024 2:49 PM [facility] LAB Chloride 109 96 - 110 mmol/L LAB CHEMISTRY METHOD 09/07/2024 2:49 PM [facility] LAB CO2 23 21 - 32 mmol/L LAB CHEMISTRY METHOD 09/07/2024 2:49 PM [facility] LAB Anion Gap 12(H) 3 - 11 LAB CHEMISTRY METHOD 09/07/2024 2:49 PM [facility] LAB Glucose 77 70 - 100 mg/dL LAB CHEMISTRY METHOD 09/07/2024 2:49 PM [facility] LAB BUN 48(H) 5 - 25 mg/dL LAB CHEMISTRY METHOD 09/07/2024 2:49 PM [facility] LAB Creatinine 1.93(H) 0.50 - 1.10 mg/dL LAB CHEMISTRY METHOD 09/07/2024 2:49 PM [facility] LAB eGFR 26(L) >=60 mL/min/1. 73m2 LAB CHEMISTRY METHOD 09/07/2024 2:49 PM [facility] LAB Comment:Calculation based on the Chronic Kidney Disease Epidemiology Collaboration (CKD-EPI) equation refit without adjustment for race. BUN/Creatinine Ratio 24.9 LAB CHEMISTRY METHOD 09/07/2024 2:49 PM [facility] LAB Calcium 8.9 8.5 - 10.5 mg/dL LAB CHEMISTRY METHOD 09/07/2024 2:49 PM [facility] LAB AST (SGOT) 6(L) 10 - 42 unit/L LAB CHEMISTRY METHOD 09/07/2024 2:49 PM [facility] LAB ALT (SGPT) 14 10 - 60 unit/L LAB CHEMISTRY METHOD 09/07/2024 2:49 PM [facility] LAB Alkaline Phosphatase 61 42 - 121 unit/L LAB CHEMISTRY METHOD 09/07/2024 2:49 PM [facility] LAB Total Protein 6.1 6.0 - [...] Final Resu lt [facility] LAB [address] [place] [address], [place] [phone] * (ABNORMAL) Complete blood count (09/07/2024 5:11 [...] Resu lt [facility] LAB [address] [place] [address], [place] [phone] documented in this encounter Visit Diagnoses Diagnosis Essential (primary) hypertension Unspecified essential hypertension Atherosclerotic heart disease of [place] coronary artery without angina pectoris Anemia, unspecified documented in this encounter Care Teams Microsoft Architect Relationship Specialty Start Date End Date John Avina DO [address] [place] [phone] PCP - General Internal Medicine 06/10/24 documented as of this encounter
--- OUTSIDE RECORDS SUMMARY | 2025-03-12 14:27 | XMS_ITS | Encounter Summary ---
Author Organization [employer] Address [address] [place] [address] Care Team Providers Care Maintenance Shop Manager Name Role Phone John Avina DO Primary Care Provider [phone] Encounter Details Date Type Department Care Team (Late st Contact Info) Description 08/22/[address] [facility] - Main Lab 299 [facility] [place] [address] Lincoln Crespo MD [address] [place] [address] Essential (primary) hypertension; Atherosclerotic heart disease of [place] coronary artery without angina pectoris; Anemia, unspecified [...] LAB CHEMISTRY METHOD 08/24/2024 9:15 AM EDT [facility] LAB Potassium 4.0 3.5 - 5.5 [...] Resu lt [facility] LAB [address] [place] [address], [place] [phone] * (ABNORMAL) Complete blood count (08/24/2024 5:46 [...] lt [facility] LAB [address] [place] [address], [place] [phone] documented in this encounter Visit Diagnoses Diagnosis Essential (primary) hypertension Unspecified essential hypertension Atherosclerotic heart disease of [place] coronary artery without angina pectoris Anemia, unspecified documented in this encounter Care Teams Maintenance Shop Manager Relationship Specialty Start Date End Date John Avina DO [address] [place] [phone] PCP - General Internal Medicine 06/10/24 documented as of this encounter
--- OUTSIDE RECORDS SUMMARY | 2025-03-12 14:27 | XMS_ITS | Encounter Summary ---
Author Organization [employer] Address [address] [place] [phone] Care Team Providers Care Correctional Officer Name Role Phone John Avina DO Primary Care Provider [phone] Encounter Details Date Type Department Care Team (Late st Contact Info) Description 08/12/2024 Lab Requisition [facility] - Main Lab 299 [facility] [place] [address] Lincoln Crespo MD [address] [place] [address] Essential (primary) hypertension; Atherosclerotic heart disease of [place] coronary artery without angina pectoris; Anemia, unspecified; [...] hypertension Atherosclerotic heart disease of [place] coronary artery without angina pectoris Anemia, unspecified Chronic kidney disease, unspecified Hypothyroidism, unspecified Hyperlipidemia, unspecified COMPREHENSIVE METABOLIC PANEL Routine 08/12/2024 4:49 AM EDT Essential (primary) hypertension Atherosclerotic heart disease of [place] coronary artery without angina pectoris Anemia, unspecified Chronic kidney disease, unspecified Hypothyroidism, unspecified Hyperlipidemia, unspecified documented in this encounter Results * (ABNORMAL) Comprehensive metabolic panel (08/12/2024 4:49 AM EDT) Sodium 140 133 - 145 mmol/L LAB CHEMISTRY METHOD 08/12/2024 11:43 AM [facility] LAB Potassium 4.4 3.5 - 5.5 mmol/L LAB CHEMISTRY METHOD 08/12/2024 11:43 AM [facility] LAB Chloride 104 96 - 110 mmol/L LAB CHEMISTRY METHOD 08/12/2024 11:43 AM [facility] LAB CO2 30 21 - 32 mmol/L LAB CHEMISTRY METHOD 08/12/2024 11:43 AM [facility] LAB Anion Gap 6 3 - 11 LAB CHEMISTRY METHOD 08/12/2024 11:43 AM [facility] LAB Glucose 81 70 - 100 mg/dL LAB CHEMISTRY METHOD 08/12/2024 11:43 AM [facility] LAB BUN 35(H) 5 - 25 mg/dL LAB CHEMISTRY METHOD 08/12/2024 11:43 AM [facility] LAB Creatinine 1.81(H) 0.50 - 1.10 mg/dL LAB CHEMISTRY METHOD 08/12/2024 11:43 AM [facility] LAB eGFR 29(L) >=60 mL/min/1. 73m2 LAB CHEMISTRY METHOD 08/12/2024 11:43 AM [facility] LAB Comment:Calculation based on the Chronic Kidney Disease Epidemiology Collaboration (CKD-EPI) equation refit without adjustment for race. BUN/Creatinine Ratio 19.3 LAB CHEMISTRY METHOD 08/12/2024 11:43 AM [facility] LAB Calcium 8.3(L) 8.5 - 10.5 mg/dL LAB CHEMISTRY METHOD 08/12/2024 11:43 AM [facility] LAB AST (SGOT) 7(L) 10 - 42 unit/L LAB CHEMISTRY METHOD 08/12/2024 11:43 AM [facility] LAB ALT (SGPT) 7(L) 10 - 60 unit/L LAB CHEMISTRY METHOD 08/12/2024 11:43 AM EDT [facility] LAB Alkaline Phosphatase 65 42 - 121 unit/L LAB CHEMISTRY METHOD 08/12/2024 11:43 AM T [facility] LAB Total Protein 5.5(L) 6.0 - 8.0 g/dL LAB CHEMISTRY METHOD 08/12/2024 11:43 AM [facility] LAB Albumin 2.3(L) 3.2 - 5.0 g/dL LAB CHEMISTRY METHOD 08/12/2024 11:43 AM T [facility] LAB Total Bilirubin 0.5 0.0 - 1.4 mg/dL LAB CHEMISTRY METHOD 08/12/2024 11:43 AM [facility] LAB Blood Venous blood specimen / Unknown Venipuncture / Unknown 08/12/2024 4:49 AM EDT 08/12/2024 10:25 AM EDT Lincoln Crespo MD LAB BLOOD ORDERABLES Final Resu lt [facility] LAB [address] [place] [address], * (ABNORMAL) Complete blood count (08/12/2024 4:49 AM EDT) WBC 6.8 4.8 - 10.8 K/mcL LAB HEMETOLOGY METHOD 08/12/2024 11:01 AM [facility] LAB RBC 2.20(L) 3.80 - 4.80 M/mcL LAB HEMETOLOGY METHOD 08/12/2024 11:01 AM [facility] LAB Hemoglobin 7.4(L) 11.5 - 16.0 g/dL LAB HEMETOLOGY METHOD 08/12/2024 11:01 AM [facility] LAB Hematocrit 23.3(L) 35.0 - 47.0 % LAB HEMETOLOGY METHOD 08/12/2024 11:01 AM EDT [facility] LAB MCV 108.4(H) 79.0 - 98.0 FL LAB HEMETOLOGY METHOD 08/12/2024 11:01 AM EDT [facility] LAB MCH 34.4(H) 27.0 - 32.0 pcg LAB HEMETOLOGY METHOD 08/12/2024 [facility] MCHC 31.8(L) 32.0 - 37.0 g/dL LAB HEMETOLOGY METHOD 08/12/2024 11:01 AM EDT [facility] LAB RDW 17.7(H) 11.0 - 15.0 % LAB HEMETOLOGY METHOD 08/12/2024 11:[facility] Platelets 203 130 - 400 K/mcL LAB HEMETOLOGY METHOD 08/12/2024 11:[facility] MPV 9.8 7.0 - 11.0 FL LAB HEMETOLOGY METHOD 08/12/2024 11:[facility] NRBC 0.0 <1.0 % LAB HEMETOLOGY METHOD 08/12/2024 11:[facility] NRBC Absolute 0.00 <0.10 K/mcL LAB HEMETOLOGY METHOD 08/12/2024 11:01 AM [facility] LAB Blood Venous blood specimen / Unknown Venipuncture / Unknown 08/12/2024 4:49 AM EDT 08/12/2024 10:25 AM EDT us Lincoln Crespo MD LAB BLOOD ORDERABLES Final Resu lt [facility] LAB [address] [place] [address], [place] [phone] documented in this encounter Visit Diagnoses Diagnosis Essential (primary) hypertension Unspecified essential hypertension Atherosclerotic heart disease of [place] coronary artery without angina pectoris Anemia, unspecified Chronic kidney disease, unspecified Hypothyroidism, unspecified Hyperlipidemia, unspecified documented in this encounter Care Teams Correctional Officer Relationship Specialty Start Date End Date John Avina DO [address] [place] [phone] PCP - General Internal Medicine 06/10/24 documented as of this encounter
--- OUTSIDE RECORDS SUMMARY | 2025-03-12 14:27 | XMS_ITS | Encounter Summary ---
Author Organization [employer] Address [address] [place] [address] Care Team Providers Care Wire Stitcher Operator Name Role Phone John Avina DO Primary Care Provider Encounter Details Date Type Department Care Team (Late st Contact Info) Description 08/14/2024 Lab Requisition [facility] - Main Lab 299 [facility] [place] [address] Lincoln Crespo MD [address] [place] [address] Essential (primary) hypertension; Atherosclerotic heart disease of [place] coronary artery without angina pectoris; [...] Essential (primary) hypertension Atherosclerotic heart disease of [place] coronary artery without angina pectoris Anemia, unspecified COMPREHENSIVE METABOLIC PANEL Routine 08/17/2024 5:41 AM EDT Essential (primary) hypertension Atherosclerotic heart disease of [place] coronary artery without angina pectoris Anemia, unspecified documented in this encounter Results * (ABNORMAL) Comprehensive metabolic panel (08/17/2024 5:41 AM EDT) Sodium 141 133 - 145 mmol/L LAB CHEMISTRY METHOD 08/17/2024 1:27 PM EDT [facility] LAB Potassium 3.8 [...] LAB CHEMISTRY METHOD 08/17/2024 1:27 PM EDT [facility] LAB Albumin 2.4(L) 3.2 - 5.0 g/dL LAB CHEMISTRY METHOD 08/17/2024 1:27 PM EDT [facility] LAB Total Bilirubin 0.4 0.0 - 1.4 mg/dL LAB CHEMISTRY METHOD 08/17/2024 1:27 PM EDT [facility] LAB Blood Venous blood specimen / Unknown Venipuncture / Unknown 08/17/2024 5:41 AM EDT 08/17/2024 10:15 AM EDT us Lincoln Crespo MD LAB BLOOD ORDERABLES Final Resu lt [facility] LAB [address] [place] [address], * (ABNORMAL) Complete blood count (08/17/2024 5:41 AM EDT) WBC 7.2 4.8 - 10.8 K/mcL LAB HEMETOLOGY METHOD 08/17/2024 11:28 AM [facility] LAB RBC 2.90(L) 3.80 - 4.80 M/mcL LAB HEMETOLOGY METHOD 08/17/2024 11:28 AM EDT [facility] LAB Hemoglobin 9.6(L) 11.5 - 16.0 g/dL LAB HEMETOLOGY METHOD 08/17/2024 11:28 AM EDT [facility] LAB Hematocrit 29.9(L) 35.0 - 47.0 % LAB HEMETOLOGY METHOD [facility]24 [facility] MCV 103.5(H) 79.0 - 98.0 FL LAB HEMETOLOGY METHOD 08/17/2024 11:28 AM EDT [facility] LAB MCH 33.2(H) 27.0 - [...] [facility] [address] [place] [address], documented in this encounter Visit Diagnoses Diagnosis Essential (primary) hypertension Unspecified essential hypertension Atherosclerotic heart disease of [place] coronary artery without angina pectoris Anemia, unspecified documented in this encounter Care Teams Wire Stitcher Operator Relationship Specialty Start Date End Date John Avina DO [address] [place] [phone] PCP - General Internal Medicine 06/10/24 documented as of this encounter
--- OUTSIDE RECORDS SUMMARY | 2025-03-12 14:27 | XMS_ITS | Clinical Summary ---
Author Organization [facility] Address [address] [place] [address] Phone Care Team Providers Care Operator Assistant [employer] Name Role Phone FabriceJohn solares Primary Care Provider [phone] Allergies Active Allergy Reactions Criticality Noted Date [...] Visit [facility] [address] [place] [address] Mejia Soler [...] Visit [facility] [address] [place] [address] Mejia Soler MD [address] [facility] [address] [place] [address] Health Maintenance Due Date Last [...] 108.0 Magnesium 2.4 1.6 - 2.4 01/25/2025 [facility] Provider LAB BLOOD ORDERABLES Sarah l Result from Last 3 Months Insurance Medicare [facility] Medicare [facility] Care Teams Operator Assistant I [employer]ement[employer] Relationship Specialty Start Date End Date John Avina DO [address] [place] [address] PCP - General Internal Medicine 10/23/23
--- OUTSIDE RECORDS SUMMARY | 2025-03-12 14:27 | XMS_ITS | Encounter Summary ---
Author Organization [employer] Address [address] [place] [address] Care Team Providers Care Oil Developer Name Role Phone John Avina DO Primary Care Provider [phone] Encounter Details Date Type Department Care Team (Late st Contact Info) Description 08/30/2024 Lab Requisition [facility] - Main Lab [address] [facility] [place] [address] Lincoln Crespo MD [address] [place] [address] Essential (primary) hypertension; Atherosclerotic heart [...] LAB CHEMISTRY METHOD 08/31/2024 1:17 PM EDT [facility] Potassium 4.7 3.5 - 5.5 mmol/L LAB CHEMISTRY METHOD 08/31/2024 1:[address] [facility] Comment:Hemolysis present Chloride 110 96 - 110 mmol/L LAB CHEMISTRY METHOD 08/31/2024 1:[address] [facility] CO2 15(L) 21 - 32 mmol/L LAB CHEMISTRY METHOD 08/31/2024 1:[address] [facility] Anion Gap 16(H) 3 - 11 LAB CHEMISTRY METHOD 08/31/2024 1:[address] [facility] Glucose 67(L) 70 - 100 mg/dL LAB CHEMISTRY METHOD 08/31/2024 1:[address] [facility] BUN 49(H) 5 - 25 mg/dL LAB CHEMISTRY METHOD 08/31/2024 1:[address] [facility] Creatinine 1.99(H) 0.50 - 1.10 mg/dL LAB CHEMISTRY METHOD 08/31/2024 1:[address] [facility] eGFR 25(L) >=60 mL/min/1. 73m2 LAB CHEMISTRY METHOD 08/31/2024 1:[address] [facility] Comment:Calculation based on the Chronic Kidney Disease Epidemiology Collaboration (CKD-EPI) equation refit without adjustment for race. BUN/Creatinine Ratio 24.6 LAB CHEMISTRY METHOD 08/31/2024 1:[address] [facility] Calcium 9.1 8.5 - 10.5 mg/dL LAB CHEMISTRY METHOD 08/31/2024 1:[address] [facility] AST (SGOT) 14 10 - 42 unit/L LAB CHEMISTRY METHOD 08/31/2024 1:[address] [facility] ALT (SGPT) 18 10 - 60 unit/L LAB CHEMISTRY METHOD 08/31/2024 1:[address] [facility] Alkaline Phosphatase 70 42 - 121 unit/L LAB CHEMISTRY METHOD 08/31/2024 1:17 PM EDT [facility] Total Protein 6.6 6.0 - 8.0 g/dL LAB CHEMISTRY METHOD 08/31/2024 1:17 PM EDT [facility] Albumin 3.1(L) 3.2 - 5.0 g/dL LAB CHEMISTRY METHOD 08/31/2024 1:17 PM EDT [facility] Total Bilirubin 0.4 0.0 - 1.4 mg/dL LAB CHEMISTRY METHOD 08/31/2024 1:17 PM EDT [facility] Blood Venous blood specimen / Unknown 08/31/2024 5:18 AM EDT 08/31/2024 11:34 AM EDT [facility] - 08/31/2024 1:17 PM EDT Short sample, interpret results with caution us Lincoln Crespo MD LAB BLOOD ORDERABLES Final Resu lt [facility] [address] [place] [address], [place] [phone] * (ABNORMAL) Complete blood count (08/31/2024 5:18 AM EDT) WBC 5.2 4.8 - 10.8 K/mcL LAB HEMETOLOGY METHOD 08/31/2024 1:43 PM EDT [facility] RBC 2.50(L) 3.80 - 4.80 M/mcL LAB HEMETOLOGY METHOD 08/31/2024 1:43 PM EDT [facility] Hemoglobin 8.6(L) 11.5 - 16.0 g/dL LAB HEMETOLOGY METHOD 08/31/2024 1:43 PM EDT [facility] Hematocrit 27.1(L) 35.0 - 47.0 % LAB HEMETOLOGY METHOD 08/31/2024 1:43 PM EDT [facility] MCV 106.7(H) 79.0 - 98.0 FL LAB HEMETOLOGY METHOD 08/31/2024 1:43 PM EDT [facility] MCH 33.9(H) 27.0 - 32.0 pcg LAB HEMETOLOGY METHOD 08/31/2024 1:43 PM EDT [facility] MCHC 31.7(L) 32.0 - 37.0 g/dL LAB HEMETOLOGY METHOD 08/31/2024 1:43 PM EDT [facility] RDW 19.2(H) 11.0 - 15.0 % LAB HEMETOLOGY METHOD 08/31/2024 1:43 PM EDT [facility] Platelets 223 130 - 400 K/mcL LAB HEMETOLOGY METHOD 08/31/2024 1:43 PM EDT [facility] MPV 9.6 7.0 - 11.0 FL LAB HEMETOLOGY METHOD 08/31/2024 1:43 PM EDT [facility] NRBC 0.0 <1.0 % LAB HEMETOLOGY METHOD 08/31/2024 1:43 PM EDT [facility] NRBC Absolute 0.00 <0.10 K/mcL LAB HEMETOLOGY METHOD 08/31/2024 1:43 PM EDT [facility] Blood Venous blood specimen / Unknown 08/31/2024 5:18 AM EDT 08/31/2024 11:31 AM EDT us Lincoln Crespo MD LAB BLOOD ORDERABLES Final Resu lt [facility] [address] [place] [address], documented in this encounter Visit Diagnoses Diagnosis Essential (primary) hypertension Unspecified essential hypertension Atherosclerotic heart disease of [place]aver coronary artery without angina pectoris Anemia, unspecified documented in this encounter Care Teams Oil Developer Relationship Specialty Start Date End Date John Avina DO [address] [place] [id number] PCP - General Internal Medicine 06/10/24 documented as of this encounter
--- OUTSIDE RECORDS SUMMARY | 2025-03-12 14:27 | XMS_ITS | Encounter Summary ---
Author Organization [employer] Address [address] [place] [address] Care Team Providers Care Ground Water Technician Name Role Phone John Avina DO Primary Care Provider [phone] Encounter Details Date Type Department Care Team (Late st Contact Info) Description 09/16/2024 Lab Requisition [facility] - Main Lab [address] [facility] [place] [address] Lincoln Crespo MD [address] [place] [address] Essential (primary) hypertension; Atherosclerotic heart disease of robinson coronary artery without angina pectoris; Anemia, unspecified; [...] Essential (primary) hypertension Atherosclerotic heart disease of robinson coronary artery without angina pectoris Anemia, unspecified Chronic kidney disease, unspecified BASIC METABOLIC PANEL Routine 09/17/2024 8:40 AM EDT Essential (primary) hypertension Atherosclerotic heart disease of robinson coronary artery without angina pectoris Anemia, unspecified Chronic kidney disease, unspecified documented in this encounter Results * (ABNORMAL) Basic metabolic panel (09/17/2024 8:40 AM EDT) Sodium 141 133 - 145 mmol/L LAB CHEMISTRY METHOD 09/17/2024 11:11 AM [facility] Potassium 4.0 3.5 - 5.5 mmol/L LAB CHEMISTRY METHOD 09/17/2024 11:11 AM [facility] Chloride 109 96 - 110 mmol/L LAB CHEMISTRY METHOD 09/17/2024 11:11 AM [facility] CO2 24 21 - 32 mmol/L LAB CHEMISTRY METHOD 09/17/2024 11:11 AM [facility] Anion Gap 8 3 - 11 LAB CHEMISTRY METHOD 09/17/2024 11:11 AM [facility] Glucose 103(H) 70 - 100 mg/dL LAB CHEMISTRY METHOD 09/17/2024 11:11 AM [facility] BUN 49(H) 5 - 25 mg/dL LAB CHEMISTRY METHOD 09/17/2024 11:11 AM [facility] Creatinine 1.74(H) 0.50 - 1.10 mg/dL LAB CHEMISTRY METHOD 09/17/2024 11:11 AM [facility] eGFR 30(L) >=60 mL/min/1. 73m2 LAB CHEMISTRY METHOD 09/17/2024 11:11 AM [facility] Comment:Calculation based on the Chronic Kidney Disease Epidemiology Collaboration (CKD-EPI) equation refit without adjustment for race. BUN/Creatinine Ratio 28.2 LAB CHEMISTRY METHOD 09/17/2024 11:11 AM [facility] Calcium 9.3 8.5 - 10.5 mg/dL LAB CHEMISTRY METHOD 09/17/2024 11:11 AM [facility] Blood Venous blood specimen / Unknown Venipuncture / Unknown 09/17/2024 8:40 AM EDT 09/17/2024 10:05 AM EDT us Lincoln Crespo MD LAB BLOOD ORDERABLES Final Resu lt [facility] [address] [place] [address], * (ABNORMAL) Complete blood count (09/17/2024 8:40 AM EDT) [facility] WBC 6.5 4.8 - 10.8 K/mcL LAB HEMETOLOGY METHOD 09/17/2024 10:30 AM EDT [facility] RBC 2.70(L) 3.80 - 4.80 M/mcL LAB HEMETOLOGY METHOD 09/17/2024 10:30 AM EDT [facility] Hemoglobin 9.4(L) 11.5 - 16.0 g/dL LAB HEMETOLOGY METHOD 09/17/2024 10:30 AM [facility] Hematocrit 28.1(L) 35.0 - 47.0 % LAB HEMETOLOGY METHOD 09/17/2024 10:30 AM [facility] MCV 106.0(H) 79.0 - 98.0 FL LAB [facility]ETOLOGY [facility] MCH 35.5(H) 27.0 - 32.0 pcg LAB HEMETOLOGY METHOD 09/17/2024 10:30 AM [facility] MCHC 33.5 32.0 - 37.0 g/dL LAB HEMETOLOGY METHOD [facility] RDW 18.7(H) 11.0 - 15.0 % LAB HEMETOLOGY [facility] Platelets 183 130 - 400 K/mcL LAB HEMETOLOGY METHOD 09/17/2024 10:30 AM [facility] MPV 9.4 7.0 - 11.0 [...] lt [facility] [address] [place] [address], documented in this encounter Visit Diagnoses Diagnosis Essential (primary) hypertension Unspecified essential hypertension Atherosclerotic heart disease of robinson coronary artery without angina pectoris Anemia, unspecified Chronic kidney disease, unspecified documented in this encounter Care Teams Ground Water Technician Relationship Specialty Start Date End Date John Avina DO [address] [place] [phone] PCP - General Internal Medicine 06/10/24 documented as of this encounter
--- NOTE | 2025-03-12 15:01 | HO.ANESPROP2 ---
Documented by User: Stephanie Aburto NP 03/12/25 15:12 HPI - Anesthesia Eval Consult details Narrative: 79 yr old female for Transesophageal Echocardiogram Heart Failure with reduced EF: on bumex Moderate to severe mitral valve regurgitation CAD: s/p right heart cath 02/27/25 at [facility] [place]: -patent stent in right coronary artry, 50 to 60% mid circumflex stenosis. -No signficant LAD disease. Mildly elevated systemic pressures. -Elevated LVEDP 20 mmHg. No significant gradient across aortic valve pullback. -Pulmonary capillary wedge pressure 25 mmHg, V waves up to 50 mmHg. -PA pressure 51/21, mean 33 -Coronary anatomy: Mid RCA stent is patent. Minimal disease in right coronary artery. OM 260% stenosis. No significant LAD disease. Persistent macrocytic anemia of unclear etiology: [place] [facility] [place]2016 she was diagnosed with plasma cell disorder, IgA kappa myeloma and received treatment. -She was treated with combination of Velcade/Revlimid/dexamethasone from 02/21/16 to September 2016. stopped when her anemia became worse, her kidney functions did not improve. She also had significant side effects to therapy. -had 2 more bone marrow biopsies in 2018 and 2019 which showed no evidence of myeloma, myelodysplasia or any other malignancy. -She has been receiving intermittent blood transfusions. Her EPO level is elevated at 2544. PMFSH Active Problems Active Problems: All Active Problems Upper back pain (Acute) Pleural pain (Acute) Lumbar spinal stenosis (Acute) Post-nasal drip (Acute) Trouble swallowing (Acute) Lumbar radiculopathy (Acute) Lumbar scoliosis (Acute) Lumbar degenerative disc disease (Acute) Arthritis of left acromioclavicular joint (Acute) Chronic back pain (Acute) Impacted cerumen of left ear (Acute) Chronic anemia (Acute) Lower back pain (Acute) Left hip pain (Acute) Acute on chronic combined systolic and diastolic CHF (congestive heart failure) (Acute) Chest pain (Acute) CKD (chronic kidney disease) stage 3, GFR 30-59 ml/min (Acute) Hospital discharge follow-up (Acute) Myelodysplasia (myelodysplastic syndrome) (Acute) Mitral regurgitation (Acute) Breast cancer, right (Acute) Hyperlipidemia (Acute) Trochanteric bursitis of left hip (Acute) Arthritis of lumbar spine (Acute) History of cardiomyopathy (Acute) Shortness of breath (Acute) Trochanteric bursitis, right hip (Acute) Rotator cuff impingement syndrome of left shoulder (Acute) CAD (coronary atherosclerotic disease) (Acute) Osteoarthritis (Acute) Hypothyroidism (Acute) Multiple myeloma (Acute) CKD stage 3 due to type 2 diabetes mellitus (Acute) Impingement syndrome, shoulder (Acute) Left shoulder pain (Acute) Closed left hip fracture (Acute) Anemia (Chronic) CAD (coronary artery disease) (Acute) Breast mass, right (Acute) HTN (hypertension) (Acute) HFrEF (heart failure with reduced ejection fraction) (Acute) Past Medical History Medical History Post-nasal drip Trouble swallowing Chronic back pain Impacted cerumen of left ear Lower back pain Left hip pain CAD (coronary atherosclerotic disease) Osteoarthritis Hypothyroidism Multiple myeloma CKD stage 3 due to type 2 diabetes mellitus Impingement syndrome, shoulder Left shoulder pain CHF (congestive heart failure) Closed left hip fracture CAD (coronary artery disease) CHF (congestive heart failure) Cervix prolapsed into vagina History of blood transfusion (~02/01/23) Diabetes mellitus HFrEF (heart failure with reduced ejection fraction) Cardiomyopathy Normal colonoscopy Type 2 diabetes mellitus Diverticulosis Irritable bowel syndrome Pulmonary emboli GERD (gastroesophageal reflux disease) Nephrolithiasis Hypoparathyroidism Papillary thyroid carcinoma HTN (hypertension) Polymyalgia rheumatica Hyperglycemia Chronic anemia Anemia Family History Family History Sister CHF (congestive heart failure) Daughter Breast cancer Son Kidney stones Surgical History Surgical History History of cardiac cath Status post hip surgery (~08/04/23) History of colonoscopy (~07/30/18) Stented coronary artery Breast mass, right H/O endoscopy History of cholecystectomy H/O total thyroidectomy Social History Social History Household Members: Other Household Members Other:: other Housing: House Do you presently have visiting nurse or other home services: Yes Alcohol intake: current Alcohol intake frequency: does not drink Patient Tobacco Use Status: Former Tobacco user Years Smoked: 30 +/- e-Cigarette/Vaping Use: Never Used Second Hand Smoke Exposure: No Have you been hit, kicked, punched, or otherwise hurt by someone within the past year? If so, by whom?: No Are you DNR?: No Advance Directives: No Advance Directives Information Provided: Yes Advance Directives Date on File: 06/27/24 service: No Current occupational status: retired Current occupation: Right Handed Cognitive needs: Yes (cane) Hearing needs: No Vision needs: Yes (reading glasses) Meds Allergies Allergy/AdvReac Type Severity Reaction Status Date / Time diphenhydramine (From Allergy Intermediate Dizziness Verified 03/03/25 14:09 Benadryl) esomeprazole (From NEXIUM) Allergy Intermediate CHEST PAIN Verified 03/03/25 14:09 omeprazole (From PRILOSEC) Allergy Intermediate CHEST PAIN Verified 03/03/25 14:09 Home Medications ?Medication ?Instructions ?Recorded ?Confirmed ?Last Taken ?Type cholecalciferol (vitamin D3) 50 50 mcg PO DAILY 02/29/20 03/15/25 10/11/24 History mcg (2,000 unit) tablet (Vitamin D3) cyanocobalamin (vitamin B-12) 5,000 mcg PO DAILY 02/29/20 03/15/25 10/11/24 History 5,000 mcg disintegrating tablet folic acid 1 mg tablet 1 mg PO DAILY 02/29/20 03/15/25 10/26/24 History cranberry 500 mg capsule 500 mg PO DAILY 11/20/22 03/15/25 10/11/24 History ascorbic acid (vitamin C) 500 mg 500 mg PO DAILY 09/23/23 03/15/25 10/11/24 History tablet (Vitamin C) biotin 1 mg tablet 1 mg PO DAILY 06/26/24 03/15/25 10/11/24 History calcium carbonate (Calcium 600) 600 mg PO DAILY 06/26/24 03/15/25 10/11/24 History exemestane 25 mg tablet 25 mg PO DAILY 06/26/24 03/15/25 10/11/24 History vitamin E (dl, acetate) 450 mg 450 mg PO DAILY 06/26/24 03/15/25 10/11/24 History (1,000 unit) capsule d-mannose 500 mg capsule 500 mg PO DAILY 10/22/24 03/15/25 Unknown History acetaminophen 1,000 mg PO DAILY PRN Pain 10/27/24 03/15/25 10/27/24 History potassium 03/15/25 03/15/25 03/15/25 History Exam Pertinent Lab Results Pertinent Lab Results: Laboratory Tests 03/01/25 14:34 WBC 8.0 RBC 3.22 L D Hgb 10.5 L D Hct 32.5 L D Plt Count 137 L Sodium 146 H Potassium 3.7 Chloride 104 Carbon Dioxide 30 H BUN 46 H Creatinine 1.94 H Documented by User: Bruce Vasquez MD 03/15/25 15:26 [facility] Past Medical History Medical History Post-nasal drip Trouble swallowing Chronic back pain Impacted cerumen of left ear Lower back pain Left hip pain CAD (coronary atherosclerotic disease) Osteoarthritis Hypothyroidism Multiple myeloma CKD stage 3 due to type 2 diabetes mellitus Impingement syndrome, shoulder Left shoulder pain CHF (congestive heart failure) Closed left hip fracture CAD (coronary artery disease) CHF (congestive heart failure) Cervix prolapsed into vagina History of blood transfusion (~02/01/23) Diabetes mellitus HFrEF (heart failure with reduced ejection fraction) Cardiomyopathy Normal colonoscopy Type 2 diabetes mellitus Diverticulosis Irritable bowel syndrome Pulmonary emboli GERD (gastroesophageal reflux disease) Nephrolithiasis Hypoparathyroidism Papillary thyroid carcinoma HTN (hypertension) Polymyalgia rheumatica Hyperglycemia Chronic anemia Anemia Family History Family History Sister CHF (congestive heart failure) Daughter Breast cancer Son Kidney stones Family history of problems with anesthesia: No Surgical History Surgical History History of cardiac cath Status post hip surgery (~08/04/23) History of colonoscopy (~07/30/18) Stented coronary artery Breast mass, right H/O endoscopy History of cholecystectomy H/O total thyroidectomy History of Problems with Anesthesia: No Social History Social History Household Members: Other Household Members Other:: other Housing: House Do you presently have visiting nurse or other home services: Yes Alcohol intake: current Alcohol intake frequency: does not drink Patient Tobacco Use Status: Former Tobacco user Years Smoked: 30 +/- e-Cigarette/Vaping Use: Never Used Second Hand Smoke Exposure: No Have you been hit, kicked, punched, or otherwise hurt by someone within the past year? If so, by whom?: No Are you DNR?: No Advance Directives: No Advance Directives Information Provided: Yes Advance Directives Date on File: 06/27/24 service: No Current occupational status: retired Current occupation: Right Handed Cognitive needs: Yes (cane) Hearing needs: No Vision needs: Yes (reading glasses) Meds Allergies Allergy/AdvReac Type Severity Reaction Status Date / Time diphenhydramine (From Allergy Intermediate Dizziness Verified 03/03/25 14:09 Benadryl) esomeprazole (From NEXIUM) Allergy Intermediate CHEST PAIN Verified 03/03/25 14:09 omeprazole (From PRILOSEC) Allergy Intermediate CHEST PAIN Verified 03/03/25 14:09 Home Medications ?Medication ?Instructions ?Recorded ?Confirmed ?Last Taken ?Type cholecalciferol (vitamin D3) 50 50 mcg PO DAILY 02/29/20 03/15/25 10/11/24 History mcg (2,000 unit) tablet (Vitamin D3) cyanocobalamin (vitamin B-12) 5,000 mcg PO DAILY 02/29/20 03/15/25 10/11/24 History 5,000 mcg disintegrating tablet folic acid 1 mg tablet 1 mg PO DAILY 02/29/20 03/15/25 10/26/24 History cranberry 500 mg capsule 500 mg PO DAILY 11/20/22 03/15/25 10/11/24 History ascorbic acid (vitamin C) 500 mg 500 mg PO DAILY 09/23/23 03/15/25 10/11/24 History tablet (Vitamin C) biotin 1 mg tablet 1 mg PO DAILY 06/26/24 03/15/25 10/11/24 History calcium carbonate (Calcium 600) 600 mg PO DAILY 06/26/24 03/15/25 10/11/24 History exemestane 25 mg tablet 25 mg PO DAILY 06/26/24 03/15/25 10/11/24 History vitamin E (dl, acetate) 450 mg 450 mg PO DAILY 06/26/24 03/15/25 10/11/24 History (1,000 unit) capsule d-mannose 500 mg capsule 500 mg PO DAILY 10/22/24 03/15/25 Unknown History acetaminophen 1,000 mg PO DAILY PRN Pain 10/27/24 03/15/25 10/27/24 History potassium 03/15/25 03/15/25 03/15/25 History Exam Exam Date and Time: 03/15/25 Airway Mallampati Class: II TM Dist: >3cm Neck ROM: Full Heart: rrr Lungs: ctab vesicular Assessment and Plan Assessment Anesthesia Assessment: Anesthesia Plan Discussed and Chart Reviewed Final Anesthetic Review Family History of Problems with Anesthesia: No History of Problems with Anesthesia: No NPO: Yes ASA Class: III Final Preanesthetic Review: No Changes in Pt Med Stat, Meds/Allgs Chart Reviewed, Consent Obtained/Reviewed and Anes Risks/Benef Reviewed Patient Risk: Low Anesthetic Plan Anesthetic Plan: MAC: Disposition: Standard PACU
[2025-03-14 11:05] VITALS: BMI 24.6
[2025-03-15 10:53] VITALS: BP 145/83; PULSE 78; RESP 20; TEMP 36.6; O2SAT 96; BMI 25.0
[2025-03-15] MEDS: Lactated Ringers 1,000 ML 50 ML IVCONT (11:20)
--- NOTE | 2025-03-15 12:30 | CA_ITS ---
Transesophageal Echocardiogram Patient (Last, First, Middle): Tonia Hernandez, Gender: Female Date of : 1945 Age: 79 Procedure Date: 03/15/2025 Procedure Type: Transesophageal Echocardiogram Location: OP Height: 149. cm Weight: 55.45 kg BSA: 1.49 m2 Heart Rate: 70 bpm BP: 138 / 81 mmHg Bottle Hop: SB Referring MD: Lv Orellana MD Symptoms: MR Conclusion: ??? Normal left ventricular cavity size. The left ventricular systolic function is moderately decreased. The visually estimated ejection fraction is between 25-30%. ??? Normal right ventricular cavity size and systolic function. ??? There is moderate mitral valve regurgitation. The mitral regurgitation jet is directed centrally. There is no mitral valve stenosis. MR ERO 0.26 cm2, MR volume 39 ml. Findings Left Ventricle Normal left ventricular cavity size. The left ventricular systolic function is moderately decreased. The visually estimated ejection fraction is between 25-30%. Right Ventricle Normal right ventricular cavity size and systolic function. Atria There is no evidence of a thrombus in the left atrial appendage. LA is dilated. Aortic Valve There is a normal trileaflet aortic valve. There is mild calcification of the aortic valve. There is no aortic valve stenosis. Mitral Valve There is moderate mitral valve regurgitation. The mitral regurgitation jet is directed centrally. There is no mitral valve stenosis. MR ERO 0.26 cm2, MR volume 39 ml. Pulmonic Valve The pulmonic valve was not well visualized. Tricuspid Valve Normal tricuspid valve structure. Great Vessels Moderate plaque is seen in the descending thoracic aorta. Pericardium/Pleural There is no evidence of pericardial effusion. Measurements 2D Linear Measurements LVOT Diam: 2.10 3.0+(-)1.3 cm Mitral Valve MV VTI: 0.28 MV Pk Dex: 1.03 MV Mn Dex: 0.50 MV Pk Grad: 4.00 MV Mn Grad: 1.00 MVA Continuity: 1.47 MR Vol - PW Dopp: 29.26 MR VTI: 1.54 MR ERO: 19.00 MR Alias Dex: 0.39 MR RAD: 0.60 LVOT LVOT Pk Dex: 0.65 LVOT Mn Dex: 0.44 LVOT VTI: 0.12 LVOT Pk Grad: 2.00 LVOT Mn Grad: 1.00 LVOT Diam: 2.10 LVOT Area: 3.46 Updated by Lv Orellana on 03:15 PM with Status of Final Lv Orellana MD electronically signed on 03/17/2025 3:15:02 PM with status of Final
--- NOTE | 2025-03-15 12:38 | MHC.SHP ---
Pre-Procedural Eval Section A - 24 Hr Update-Section A only Date of Service: 03/15/25 The patient is an INPATIENT: No Section B - Complete if H&P > 30 days Chief Complaint: Nonrheumatic mitral (valve) insufficiency Details of Present Illness: CHF, Severe MR, being considered for mitraclip Allergies: Allergies Allergy/AdvReac Type Severity Reaction Status Date / Time diphenhydramine (From Allergy Intermediate Dizziness Verified 03/03/25 14:09 Benadryl) esomeprazole (From NEXIUM) Allergy Intermediate CHEST PAIN Verified 03/03/25 14:09 omeprazole (From PRILOSEC) Allergy Intermediate CHEST PAIN Verified 03/03/25 14:09 Review of Systems Sugical H&P ROS: Negative: Constitution and Yes, Specify: Cardiovascular (Dyspnea) Exam Surgical H&P Exam: Normal: HEENT and Not Evaluated: Heart (apical systolic murmur, +JVD, Lung clear) Plan Diagnosis/Plan: Unchanged I have reviewed the history and physical and performed a pertinent physical examination on my patient. No changes have occurred unless specified. Time Spent With Patient Time: Total time managing care of this patient today ____ minutes.
[2025-03-15 13:27] VITALS: BP 116/56; PULSE 60; RESP 10; TEMP 36.8; O2SAT 96
[2025-03-15 13:42] VITALS: BP 117/61; PULSE 62; RESP 23; O2SAT 94
[2025-03-15 13:57] VITALS: BP 122/70; PULSE 65; RESP 21; O2SAT 96
[2025-03-15 14:12] VITALS: BP 117/57; PULSE 65; RESP 18; TEMP 37.2; O2SAT 93
== END 2025-03-15 14:51 | disposition home or self-care (01) ==
PROVIDERS: PCP Internal Medicine; Visit Provider Internal Medicine Cardiovascular Disease
PROC: (CPT 93312; principal; 2025-03-15 12:30)
DX: I34.0 Nonrheumatic mitral (valve) insufficiency (principal); I25.10 Atherosclerotic heart disease of native coronary artery without angina pectoris; Z95.5 Presence of coronary angioplasty implant and graft; I13.0 Hypertensive heart and chronic kidney disease with heart failure and stage 1 through stage 4 chronic kidney disease, or unspecified chronic kidney disease; I50.20 Unspecified systolic (congestive) heart failure; N18.30 Chronic kidney disease, stage 3 unspecified; E11.22 Type 2 diabetes mellitus with diabetic chronic kidney disease; Z79.899 Other long term (current) drug therapy; Z88.8 Allergy status to other drugs, medicaments and biological substances; Z87.891 Personal history of nicotine dependence
CPT/HCPCS: 93312; J2003; J2371; J2405; J2704

== ENCOUNTER → 2025-03-15 12:30 | Outpatient (BNV) | payer MEDICARE, SELFPAY | PROVIDERS: PCP Internal Medicine; Visit Provider Internal Medicine Cardiovascular Disease | DX: I34.0 Nonrheumatic mitral (valve) insufficiency (principal) | CPT/HCPCS: 93312 ==

== ENCOUNTER 2025-03-29 14:08 | Outpatient (AMB) | payer MEDICARE, SELFPAY ==
--- NOTE | 2025-03-29 14:13 | A.OFFPC_ITS ---
Intake Visit Reasons: 3 month follow up Survey Engineer Required: No Allergies diphenhydramine (From Benadryl) Allergy (Intermediate, Verified 03/29/25 14:42) Dizziness esomeprazole (From NEXIUM) Allergy (Intermediate, Verified 03/29/25 14:42) CHEST PAIN omeprazole (From PRILOSEC) Allergy (Intermediate, Verified 03/29/25 14:42) CHEST PAIN Medication List - Last Reconciled 03/29/25 by Mimi Calderón PA-C [acetaminophen 1,000 mg PO DAILY PRN] allopurinol 300 mg PO DAILY ascorbic acid (vitamin C) (Vitamin C) 500 mg PO DAILY biotin 1 mg PO DAILY bumetanide 1 mg PO DAILY 90 days calcium carbonate (Calcium 600) 600 mg PO DAILY carvedilol 6.25 mg PO BID cholecalciferol (vitamin D3) (Vitamin D3) 50 mcg PO DAILY clopidogrel 75 mg PO DAILY cranberry 500 mg PO DAILY cyanocobalamin (vitamin B-12) 5,000 mcg PO DAILY d-mannose 500 mg PO DAILY exemestane 25 mg PO DAILY folic acid 1 mg PO DAILY hydralazine 25 mg See Protocol PO BID levothyroxine 100 mcg PO 4XW 90 days loratadine (Claritin) 10 mg PO DAILY [potassium ] rosuvastatin 20 mg PO DAILY vitamin E (dl, acetate) 450 mg PO DAILY Tobacco use date assessed: 07/07/24 Dental Screening Dental Screen Date: 10/22/24 HPI HPI Comments History of Present Illness Details The patient is a 79-year-old female presenting for a three-month follow-up visit and medication management. She reports feeling fine overall. The patient reports a fall that occurred a week ago in her garage when she missed grabbing the car door as it swung open. She landed on her previously fractured hip but believes her heavy winter coat may have cushioned the impact. She did not hit her head or lose consciousness, has no bruising, and reports she can move the area without restriction. She has been managing the area with ice and patches and did not seek emergency care for this incident. The patient anticipates needing a refill for her thyroid medication, which she takes in the morning. She identifies the medication as levothyroxine and states she typically receives a three-month supply from [facility]. [facility] Medical History (Updated 03/29/25 @ 14:44 by Mimi Calderón PA-C) Fall Post-nasal drip Trouble swallowing Chronic back pain Impacted cerumen of left ear Lower back pain Left hip pain CAD (coronary atherosclerotic disease) Osteoarthritis Hypothyroidism Multiple myeloma CKD stage 3 due to type 2 diabetes mellitus Impingement syndrome, shoulder Left shoulder pain CHF (congestive heart failure) Closed left hip fracture CAD (coronary artery disease) CHF (congestive heart failure) Cervix prolapsed into vagina History of blood transfusion (~02/01/23) Diabetes mellitus HFrEF (heart failure with reduced ejection fraction) Cardiomyopathy Normal colonoscopy Type 2 diabetes mellitus Diverticulosis Irritable bowel syndrome Pulmonary emboli GERD (gastroesophageal reflux disease) Nephrolithiasis Hypoparathyroidism Papillary thyroid carcinoma HTN (hypertension) Polymyalgia rheumatica Hyperglycemia Chronic anemia Anemia Surgical History History of cardiac cath Status post hip surgery (~08/04/23) History of colonoscopy (~07/30/18) Stented coronary artery Breast mass, right H/O endoscopy History of cholecystectomy H/O total thyroidectomy Family History Sister CHF (congestive heart failure) Daughter Breast cancer Son Kidney stones Social History Household Members: Other Household Members Other:: other Housing: House Do you presently have visiting nurse or other home services: Yes Alcohol intake: current Alcohol intake frequency: does not drink Patient Tobacco Use Status: Former Tobacco user Years Smoked: 30 +/- e-Cigarette/Vaping Use: Never Used Second Hand Smoke Exposure: No Advance Directives Date on File: 06/27/24 service: No Current occupational status: retired Current occupation: Right Handed Cognitive needs: Yes (cane) Hearing needs: No Vision needs: Yes (reading glasses) Questionnaire PHQ-9 Over the last 2 weeks, how often have you been bothered by any of the following problems? 1. Little interest or pleasure in doing things: not at all 2. Feeling down, depressed, or hopeless: not at all 3. Trouble falling or staying asleep, or sleeping too much: several days 4. Feeling tired or having little energy: nearly every day 5. Poor appetite or overeating: not at all 6. Feeling bad about yourself - or that you are a failure or have let yourself or your family down: not at all 7. Trouble concentrating on things, such as reading the newspaper or watching television: not at all 8. Moving or speaking so slowly that other people could have noticed. Or the opposite - being so fidgety or restless that you have been moving around a lot more than usual: not at all 9. Thoughts that you would be better off or of hurting yourself in some way: not at all Total score: 4 Depression Screening Interpretation: Negative Depression Screening Done: Yes 82177 - PHQ-9 Billing: Yes Source: Developed by Drs. John Torres, Park Emanuel, Tu Mccain and colleagues, with an educational ridge from [employer]. Thrive Questionnaire Date Thrive assessed: 10/28/24 I am a: Patient What is your living situation today?: I have a steady place to live Within the past 12 months, did the food you bought not last and you didn't have the money to get more?: Never true Within the past 12 months, did you worry whether your food would run out before you got money to buy more?: Never true Do you have trouble paying for medicines?: No Do you have trouble getting transportation to medical appointments?: No Do you have trouble paying your heating and electricity bill?: No Do you have trouble taking care of your child, family member or friend?: No Do you have trouble with day-to-day activities such as bathing, preparing meals, shopping, managing finances, etc.?: No Are you currently unemployed and looking for a job?: No Are you interested in more education?: No Please select the resources that you would like help with: None Currently or been in a relationship where the following occur: No concerns reported THRIVE Score: 0 AUDIT C Alcohol Use Questionnaire (AUDIT-C) 1. How often do you have a drink containing alcohol?: Never 3. How often do you have six or more drinks on one occasion?: Never Total Score: 0 Score Reviewed/Action Taken: No RASHAUN-7 AMB Questionnaire RASHAUN-7 Date RASHAUN - 7 assessed: 07/07/24 Feeling nervous, anxious, or on edge: 0 = Not at all Not being able to stop or control worryin = Not at all Worrying too much about different things: 0 = Not at all Trouble relaxin = Several days Being so restless that it is hard to sit still: 0 = Not at all Becoming easily annoyed or irritable: 0 = Not at all Feeling afraid as if something awful might happen: 0 = Not at all Total RASHAUN-7 score (0-4 normal; 5-9 mild; 10-14 moderate; 15-21 severe): 1 Source: Developed by Drs. John Torres, Park Emanuel, Tu Mccain and colleagues, with an educational ridge from [employer]. RASHAUN-7 Assessment Billing RASHAUN-7 Assessment Tool: RASHAUN-7 Assessment 20712 Review of Systems Const Details: - Constitutional: Denies feeling unwell. - Cardiovascular: Denies chest pain and leg swelling. - Respiratory: Denies shortness of breath. - Gastrointestinal: Denies black or bloody stools. - Musculoskeletal: Reports a fall with impact to her previously fractured hip but denies new fracture and has full range of motion. - Neurological: Denies hitting her head or loss of consciousness with the recent fall. - Integumentary: Denies bruising after the fall. All systems reviewed & are unremarkable except as noted in HPI and below Physical exam (Primary Care) Tobacco/Smoking Status: Tobacco use Status Tobacco use date assessed 07/07/24 03/29/25 14:16 Patient Tobacco Use Status Former Tobacco user 03/29/25 14:16 Tobacco use type 01/12/25 13:55 e-Cigarette/Vaping Use Never Used 03/29/25 14:16 PHQ-9: PHQ-9 Score PHQ-9: Total score 4 03/29/25 14:16 Depression Screening Interpretation: Negative Thrive Assessment: Date of Thrive Assessment Date Thrive assessed 10/28/24 03/29/25 14:16 Currently or been in a relationship where the following occur: No concerns reported Telehealth Telehealth Telehealth Platform: Telephone Location of provider rendering services: practice address Location of patient: address on file Patient Identification confirmed using: Name, : Yes Telehealth method: voice only Patient verbally consented to treatment: Yes Patient verbally consented to billing insurance company: Yes Patient informed of any privacy concerns related to visit: Yes Minutes spent on Phone/Video with Pt.: 20 Coding Level of Care Code Tele Est Pt Level 4 (75409) Complex visit Add On G2211 Diagnoses Hypothyroidism E03.9 Fall W19.XXXA Additional Codes RASHAUN-7 Assessment Billing - RASHAUN-7 Assessment Tool: RASHAUN-7 Assessment 13495 ([id number]) PHQ-9 - 08647 - PHQ-9 Billing: Yes ([id number]) Assessment & Plan Assessment & Plan (1) Hypothyroidism: Code(s): E03.9 - Hypothyroidism, unspecified Category: Medical Plan: The patient anticipates needing a refill for her thyroxine. A new prescription for thyroxine will be sent, providing a three-month supply with three refills. The patient is also due for repeat, non-fasting blood work to monitor her thyroid levels. An electronic order for the lab work will be sent to [facility], and she can go in to have her blood drawn this week. (2) Fall: Code(s): W19.XXXA - Unspecified fall, initial encounter Category: Medical Plan: The patient reported a fall a week ago, landing on her previously fractured hip. She has been managing at home with ice and patches and denies fracture, bruising, or loss of motion. As she is feeling well and reports no acute distress, the plan is to continue monitoring. Plan Plan Patient was informed and verbally consented to the use of an ambient scribe for clinic note documentation during this visit. 1. Hypothyroidism The patient anticipates needing a refill for her thyroxine. A new prescription for thyroxine will be sent, providing a three-month supply with three refills. The patient is also due for repeat, non-fasting blood work to monitor her thyro id levels. An electronic order for the lab work will be sent to [facility], and she can go in to have her blood drawn this week. 2. Fall The patient reported a fall a week ago, landing on her previously fractured hip. She has been managing at home with ice and patches and denies fracture, bruising, or loss of motion. As she is feeling well and reports no acute distress, the plan is to continue monitoring. I conducted a telehealth follow-up with the patient. I discussed her recent fall and confirmed she had no head injury, loss of consciousness, bruising, or limited mobility, and that she was self-managing at home. I informed her that I would send a refill for her thyroxine medication, which would be for a three- month supply with three additional refills. We also discussed the need for repeat thyroid blood work, and I advised her that the order would be available electronically at [facility], and she could go at her convenience without fasting. Orders: Orders TSH reflex Free T4 Today Z00.00 - Encounter for general adult medical examination without abnormal findings Magnesium Today Z00.00 - Encounter for general adult medical examination without abnormal findings UA CC w/rflx Micro + Cult Today Z00.00 - Encounter for general adult medical examination without abnormal findings Hemoglobin A1c Today Z00.00 - Encounter for general adult medical examination without abnormal findings C Reactive Protein Today Z00.00 - Encounter for general adult medical examination without abnormal findings Erythrocyte Sedimentation Rate Today Z00.00 - Encounter for general adult medical examination without abnormal findings Vitamin D 25-OH Total Today Z00.00 - Encounter for general adult medical examination without abnormal findings Complete Blood Count Auto Diff Today Z00.00 - Encounter for general adult medical examination without abnormal findings Comprehensive Met. Panel Today Z00.00 - Encounter for general adult medical examination without abnormal findings IRON PROFILE Today D64.9 - Anemia, unspecified Vitamin B12 and Folate Today Z00.00 - Encounter for general adult medical examination without abnormal findings Medications: New cyclobenzaprine 10 mg PO BEDTIME 30 tabs 0RF Changed From levothyroxine 100 mcg PO 4XW 65 tabs 3RF To levothyroxine 100 mcg PO 4XW 52 tabs 3RF 90 days Refilled clopidogrel 75 mg PO DAILY 90 tabs 3RF levothyroxine 100 mcg PO 4XW 52 tabs 3RF 90 days carvedilol 6.25 mg PO BID 180 tabs 3RF clopidogrel 75 mg PO DAILY 90 tabs 3RF levothyroxine 100 mcg PO 4XW 52 tabs 3RF 90 days carvedilol 6.25 mg PO BID 180 tabs 3RF clopidogrel 75 mg PO DAILY 90 tabs 3RF Patient Instructions: - I have sent a new prescription for your thyroid medication (thyroxine) to your pharmacy. This will cover you for three months, and there will be three refills available after that. - Please go to have your blood drawn for thyroid testing. The order is already in their system. You do not need to fast for this test. - Please try to get the blood work done this week. - Continue to monitor your hip or all your symptoms after the recent fall. - If you need refills for any other medications, please let my office know.
--- OUTSIDE RECORDS SUMMARY | 2025-03-29 23:03 | XMS_ITS | Encounter Summary ---
Author Organization [facility] Address [address] [place] [address] Care Team Providers Care Knotter Name Role Phone John Avina DO Primary Care Provider [phone] Encounter Details Date Type Department Care Team (Late st Contact Info) Description 09/02/2024 Lab Requisition [facility] - Main Lab [address] [facility] [place] [address] Lincoln Crespo MD [address] [place] [address] Essential (primary) hypertension; Atherosclerotic heart disease of [place] coronary artery without angina pectoris; Anemia, unspecified; [...] Essential (primary) hypertension Atherosclerotic heart disease of [place] coronary artery without angina pectoris Anemia, unspecified Chronic kidney disease, unspecified BASIC METABOLIC PANEL Routine 09/03/2024 7:35 AM EDT Essential (primary) hypertension Atherosclerotic heart disease of [place] coronary artery without angina pectoris Anemia, unspecified [...] lt [facility] [address] [place] [address], * (ABNORMAL) Complete blood count (09/03/2024 7:35 AM EDT) [facility] Signature WBC 4.5(L) 4.8 - 10.8 K/mcL LAB HEMETOLOGY METHOD 09/03/2024 8:46 AM EDT [facility] LAB RBC 2.60(L) 3.80 - 4.80 M/mcL LAB HEMETOLOGY METHOD 09/03/2024 8:46 AM EDT [facility] LAB Hemoglobin 8.8(L) 11.5 - 16.0 g/dL LAB HEMETOLOGY METHOD 09/03/2024 8:46 AM [facility] LAB Hematocrit 27.0(L) 35.0 - 47.0 % LAB HEMETOLOGY METHOD 09/03[facility]24 8[facility] MCV 105.1(H) 79.0 - 98.0 FL LAB HEMETOLOGY METHOD 09/03/2024 8[facility] MCH 34.2(H) 27.0 - 32.0 pcg LAB HEMETOLOGY METHOD 09/03/2024 8:46 AM [facility] LAB MCHC 32.6 32.0 - 37.0 g/dL LAB HEMETOLOGY METHOD 09/03/2024 8:[facility] RDW 19.1(H) 11.0 - 15.0 % LAB HEMETOLOGY METHOD 09/03/2024 8:46 AM EDT [facility] LAB Platelets 200 130 - 400 K/mcL LAB HEMETOLOGY METHOD 09/03/2024 8:46 AM EDT [facility] LAB MPV 9.2 7.0 - 11.0 FL LAB HEMETOLOGY METHOD 09/03/2024 8:46 AM EDT [facility] NRBC 0.0 <1.0 % LAB HEMETOLOGY METHOD 09/03/2024 8:46 AM EDT [facility] LAB NRBC Absolute 0.00 <0.10 K/mcL LAB HEMETOLOGY METHOD 09/03/2024 8:46 AM EDT [facility] LAB Blood Venous blood specimen / Unknown Venipuncture / Unknown 09/03/2024 7:35 AM EDT 09/03/2024 8:28 AM EDT us Lincoln Crespo MD LAB BLOOD ORDERABLES Final Resu lt [facility] ([facility] [address] [place] [address], documented in this encounter Visit Diagnoses Diagnosis Essential (primary) hypertension Unspecified essential hypertension Atherosclerotic heart disease of [place] coronary artery without angina pectoris Anemia, unspecified Chronic kidney disease, unspecified documented in this encounter Care Teams Knotter Relationship Specialty Start Date End Date John Avina DO [address] [place] [phone] PCP - General Internal Medicine 06/10/24 documented as of this encounter
--- OUTSIDE RECORDS SUMMARY | 2025-03-29 23:03 | XMS_ITS | Encounter Summary ---
Author Organization [facility] Address [address] [place] [address] Care Team Providers Care Aws Developer Name Role Phone John Avina DO Primary Care Provider [phone] Encounter Details Date Type Department Care Team (Late st Contact Info) Description 08/17/2024 Lab Requisition [facility] - Main Lab [address] [facility] [place] [address] Lincoln Crespo MD [address] [place] [address] Other ulcerative colitis with rectal [...] AM EDT) WBC 7.1 4.8 - 10.8 K/[facility] LAB HEMETOLOGY METHOD 08/18/2024 11:09 AM EDT [facility] RBC 2.80(L) 3.80 - 4.80 M/[facility] LAB HEMETOLOGY METHOD 08/18/2024 11:09 AM [...] MD LAB BLOOD ORDERABLES [facility] [address] [place] [address], documented in this encounter Visit Diagnoses Diagnosis Other ulcerative colitis with rectal bleeding (CMS/HCC V24, CMS/HCC V28) Anemia in chronic kidney disease (CODE) documented in this encounter Care Teams Aws Developer Relationship Specialty Start Date End Date John Avina DO [address] [place] [phone] PCP - General Internal Medicine 06/10/24 documented as of this encounter
--- OUTSIDE RECORDS SUMMARY | 2025-03-29 23:03 | XMS_ITS | Encounter Summary ---
Author Organization [facility] Address [address] [place] [address] Care Team Providers Care Pharmacy Clerk Name Role Phone John Avina DO Primary Care Provider [phone] Encounter Details Date Type Department Care Team (Late st Contact Info) Description 08/19/2024 Lab Requisition [facility] - Main Lab [address] [facility] [place] [address] Lincoln Crespo MD [address] [place] [address] Essential (primary) hypertension; Atherosclerotic heart disease of [place] coronary artery without angina pectoris; Anemia, unspecified; [...] Essential (primary) hypertension Atherosclerotic heart disease of [place] coronary artery without angina pectoris Anemia, unspecified Chronic kidney disease, unspecified BASIC METABOLIC PANEL Routine 08/20/2024 6:56 AM EDT Essential (primary) hypertension Atherosclerotic heart disease of [place] coronary artery without angina pectoris Anemia, unspecified Chronic kidney disease, unspecified documented in this encounter Results * (ABNORMAL) Basic metabolic panel (08/20/2024 6:56 AM EDT) Sodium 140 133 - 145 mmol/L LAB CHEMISTRY METHOD 08/20/2024 10:17 AM [facility] LAB Potassium 4.1 3.5 - 5.5 mmol/L LAB CHEMISTRY METHOD 08/20/2024 10:17 AM [facility] LAB Chloride 107 96 - 110 mmol/L LAB CHEMISTRY METHOD 08/20/2024 10:17 AM [facility] LAB CO2 25 21 - 32 mmol/L LAB CHEMISTRY METHOD 08/20/2024 10:17 AM [facility] LAB Anion Gap 8 3 - 11 LAB CHEMISTRY METHOD 08/20/2024 10:17 AM [facility] LAB Glucose 100 70 - 100 mg/dL LAB CHEMISTRY METHOD 08/20/2024 10:17 AM [facility] LAB BUN 31(H) 5 - 25 mg/dL LAB CHEMISTRY METHOD 08/20/2024 10:17 AM [facility] LAB Creatinine 1.63(H) 0.50 - 1.10 mg/dL LAB CHEMISTRY METHOD 08/20/2024 10:17 AM [facility] LAB eGFR 32(L) >=60 mL/min/1. 73m2 LAB CHEMISTRY METHOD 08/20/2024 10:17 AM [facility] LAB Comment:Calculation based on the Chronic Kidney Disease Epidemiology Collaboration (CKD-EPI) equation refit without adjustment for race. BUN/Creatinine Ratio 19.0 LAB CHEMISTRY METHOD 08/20/2024 10:17 AM [facility] Calcium 9.2 8.5 - 10.5 mg/dL LAB CHEMISTRY METHOD 08/20/2024 10:17 AM [facility] Blood Venous blood specimen / Unknown Venipuncture / Unknown 08/20/2024 6:56 AM EDT 08/20/2024 9:28 AM EDT us Lincoln Crespo MD LAB BLOOD ORDERABLES Final Resu lt [facility] [address] [place] [address], * (ABNORMAL) Complete blood count (08/20/2024 6:56 AM EDT) [facility] WBC 8.6 4.8 - 10.8 K/mcL LAB HEMETOLOGY METHOD 08/20/2024 9:58 AM [facility] RBC 3.30(L) 3.80 - 4.80 M/mcL LAB HEMETOLOGY METHOD [facility] Hemoglobin 10.9(L) 11.5 - 16.0 g/dL LAB HEMETOLOGY METHOD 08/20/2024 9:58 AM [facility] LAB Hematocrit 34.1(L) 35.0 - 47.0 % LAB HEMETOLOGY METHOD 08/20/2024 9:58 AM [facility] LAB MCV 102.1(H) 79.0 - 98.0 FL LAB HEMETOLOGY METHOD 08/20/2024 9:58 AM [facility] LAB MCH 32.6(H) 27.0 - 32.0 pcg LAB HEMETOLOGY METHOD 08/20/2024 9:58 AM [facility] LAB MCHC 32.0 32.0 - 37.0 g/dL LAB HEMETOLOGY METHOD 08/20/2024 9:58 AM [facility] LAB RDW 18.5(H) 11.0 - 15.0 % LAB HEMETOLOGY METHOD 08/20/2024 9:58 AM [facility] LAB Platelets 264 130 - 400 K/mcL LAB HEMETOLOGY METHOD 08/20/2024 9:58 AM [facility] LAB MPV 9.0 7.0 - 11.0 FL LAB HEMETOLOGY METHOD 08/20/2024 9:58 AM [facility] LAB NRBC 0.0 <1.0 % LAB HEMETOLOGY METHOD 08/20/2024 9:58 AM EDT [facility] LAB NRBC Absolute 0.00 <0.10 K/mcL LAB HEMETOLOGY METHOD 08/20/2024 9:58 AM EDT [facility] LAB Blood Venous blood specimen / Unknown Venipuncture / Unknown 08/20/2024 6:56 AM EDT 08/20/2024 9:29 AM EDT us Lincoln Crespo MD LAB BLOOD ORDERABLES Final Resu lt [facility] [address] [place] [address], documented in this encounter Visit Diagnoses Diagnosis Essential (primary) hypertension Unspecified essential hypertension Atherosclerotic heart disease of [place] coronary artery without angina pectoris Anemia, unspecified Chronic kidney disease, unspecified documented in this encounter Care Teams Pharmacy Clerk Relationship Specialty Start Date End Date John Avina DO [address] [place] [phone] PCP - General Internal Medicine 06/10/24 documented as of this encounter
--- OUTSIDE RECORDS SUMMARY | 2025-03-29 23:03 | XMS_ITS | Encounter Summary ---
Author Organization [employer] Address [address] [place] [address] Care Team Providers Care Care Provider Name Role Phone John Avina DO Primary Care Provider [phone] Encounter Details Date Type Department Care Team (Late st Contact Info) Description 08/22/2024 Lab Requisition [facility] - Main Lab 299 [facility] [place] [address] Lincoln Crsepo MD [address] [place] [address] Essential (primary) hypertension; Atherosclerotic heart disease of [place] coronary artery without angina pectoris; Anemia, unspecified [...] hypertension Atherosclerotic heart disease of [place] coronary artery without angina pectoris Anemia, unspecified COMPREHENSIVE METABOLIC PANEL Routine 08/24/2024 5:46 AM EDT Essential (primary) hypertension Atherosclerotic heart disease of [place] coronary artery without angina pectoris Anemia, unspecified documented in this encounter Results * (ABNORMAL) Comprehensive metabolic panel (08/24/2024 5:46 AM EDT) Sodium 144 133 - 145 mmol/L LAB CHEMISTRY METHOD 08/24/2024 9:15 AM EDT [facility] Potassium 4.0 3.5 - [...] LAB CHEMISTRY METHOD 08/24/2024 9:15 AM EDT [facility] Albumin 2.8(L) 3.2 - 5.0 g/dL LAB CHEMISTRY METHOD 08/24/2024 9:15 AM EDT [facility] Total Bilirubin 0.3 0.0 - 1.4 mg/dL LAB CHEMISTRY METHOD 08/24/2024 9:15 AM EDT [facility] Blood Venous blood specimen / Unknown Venipuncture / Unknown 08/24/2024 5:46 AM EDT 08/24/2024 8:26 AM EDT us Lincoln Crespo MD LAB BLOOD ORDERABLES Final Resu lt [facility] [address] [place] [address], [place] [phone] * (ABNORMAL) Complete blood count (08/24/2024 5:46 AM EDT) WBC 6.8 4.8 - 10.8 K/mcL LAB HEMETOLOGY METHOD 08/24/2024 8:45 AM [facility] RBC 2.50(L) 3.80 - 4.80 M/mcL LAB HEMETOLOGY METHOD 08/24/2024 8:45 AM [facility] Hemoglobin 8.6(L) 11.5 - 16.0 g/dL LAB HEMETOLOGY METHOD 08/24/2024 8:45 AM T [facility] Hematocrit 26.2(L) 35.0 - 47.0 % LAB HEMETOLOGY METHOD 08/24/2024 8:45 AM [facility] MCV 103.6(H) 79.0 - 98.0 FL LAB HEMETOLOGY METHOD 08/24/2024 8:45 AM EDT [facility] MCH 34.0(H) 27.0 - 32.0 pcg LAB HEMETOLOGY METHOD 08/24/2024 8:45 AM EDT [facility] MCHC 32.8 32.0 - 37.0 g/dL LAB HEMETOLOGY METHOD 08/24/2024 8:45 AM EDT [facility] RDW 18.7(H) 11.0 - 15.0 % LAB HEMETOLOGY METHOD 08/24/2024 8:45 AM EDT [facility] Platelets 192 130 - 400 K/mcL LAB HEMETOLOGY METHOD 08/24/2024 8:45 AM EDT [facility] MPV 9.3 7.0 - 11.0 FL LAB HEMETOLOGY METHOD 08/24/2024 8:45 AM EDT [facility] NRBC 0.0 <1.0 % LAB HEMETOLOGY METHOD 08/24/2024 8:45 AM EDT [facility] NRBC Absolute 0.00 <0.10 K/mcL LAB HEMETOLOGY METHOD 08/24/2024 8:45 AM EDT [facility] Blood Venous blood specimen / Unknown Venipuncture / Unknown 08/24/2024 5:46 AM EDT 08/24/2024 8:32 AM EDT us Lincoln Crespo MD LAB BLOOD ORDERABLES Final Resu lt [facility] [address] [place] [address], [place] [phone] documented in this encounter Visit Diagnoses Diagnosis Essential (primary) hypertension Unspecified essential hypertension Atherosclerotic heart disease of [place] coronary artery without angina pectoris Anemia, unspecified documented in this encounter Care Teams Care Provider Relationship Specialty Start Date End Date John Avina DO [address] [place] [phone] PCP - General Internal Medicine 06/10/24 documented as of this encounter
--- OUTSIDE RECORDS SUMMARY | 2025-03-29 23:03 | XMS_ITS | Encounter Summary ---
Author Organization [employer] Address [address] [place] [address] Care Team Providers Care Recreational Aide Name Role Phone John Avina DO Primary Care Provider [phone] Encounter Details Date Type Department Care Team (Late st Contact Info) Description 08/12/2024 Lab Requisition [facility] - Main Lab 299 [facility] [place] [address] Lincoln Crespo MD [address] [place] [address] Essential (primary) hypertension; Atherosclerotic heart disease of [place] coronary artery without angina pectoris; Anemia, [...] Essential (primary) hypertension Atherosclerotic heart disease of [place] coronary artery without angina pectoris Anemia, unspecified Chronic kidney disease, unspecified Hypothyroidism, unspecified Hyperlipidemia, unspecified COMPREHENSIVE METABOLIC PANEL Routine 08/12/2024 4:49 AM EDT Essential (primary) hypertension Atherosclerotic heart disease of [place] coronary artery without angina pectoris Anemia, [...] LAB CHEMISTRY METHOD 08/12/2024 11:43 AM EDT [facility] Alkaline Phosphatase 65 42 - 121 unit/L LAB CHEMISTRY METHOD 08/12/2024 11:43 AM T [facility] Total Protein 5.5(L) 6.0 - 8.0 g/dL LAB CHEMISTRY METHOD 08/12/2024 11:43 AM [facility] Albumin 2.3(L) 3.2 - 5.0 g/dL LAB CHEMISTRY METHOD 08/12/2024 11:43 AM T [facility] Total Bilirubin 0.5 0.0 - 1.4 mg/dL LAB CHEMISTRY METHOD 08/12/2024 11:43 AM [facility] Blood Venous blood specimen / Unknown Venipuncture / Unknown 08/12/2024 4:49 AM EDT 08/12/2024 10:25 AM EDT Lincoln Crespo MD LAB BLOOD ORDERABLES Final Resu lt [facility] [address] [place] [address], * (ABNORMAL) Complete blood count (08/12/2024 4:49 [...] LAB HEMETOLOGY METHOD 08/12/2024 11:01 AM EDT [facility] MCV 108.4(H) 79.0 - 98.0 FL LAB HEMETOLOGY METHOD 08/12/2024 11:01 AM EDT [facility] MCH 34.4(H) 27.0 - 32.0 pcg LAB HEMETOLOGY METHOD 08/12/2024 11:[facility] MCHC 31.8(L) 32.0 - 37.0 g/dL LAB HEMETOLOGY METHOD 08/12/2024 11:01 AM EDT [facility] RDW 17.7(H) 11.0 - 15.0 [...] Final Resu lt [facility] [address] [place] [address], [place] [phone] documented in this encounter Visit Diagnoses Diagnosis Essential (primary) hypertension Unspecified essential hypertension Atherosclerotic heart disease of [place] coronary artery without angina pectoris Anemia, unspecified Chronic kidney disease, unspecified Hypothyroidism, unspecified Hyperlipidemia, unspecified documented in this encounter Care Teams Recreational Aide Relationship Specialty Start Date End Date John Avina DO [address] [place] [phone] PCP - General Internal Medicine 06/10/24 documented as of this encounter
--- OUTSIDE RECORDS SUMMARY | 2025-03-29 23:03 | XMS_ITS | Encounter Summary ---
Author Organization [employer] Address [address] [place] [address] Care Team Providers Care Refinery Operator Alkylation Name Role Phone John Avina DO Primary Care Provider [phone] Encounter Details Date Type Department Care Team (Late st Contact Info) Description 08/26/2024 Lab Requisition [facility] - Main Lab 299 [facility] [place] [address] Lincoln Crespo MD [address] [place] [address] Essential (primary) hypertension; Atherosclerotic heart disease of [place] coronary artery without angina pectoris; Anemia, unspecified; [...] Essential (primary) hypertension Atherosclerotic heart disease of [place] coronary artery without angina pectoris Anemia, unspecified Chronic kidney disease, unspecified BASIC METABOLIC PANEL Routine 08/27/2024 5:31 AM EDT Essential (primary) hypertension Atherosclerotic heart disease of [place] coronary artery without angina pectoris Anemia, unspecified Chronic kidney disease, unspecified documented in this encounter Results * (ABNORMAL) Basic metabolic panel (08/27/2024 5:31 AM EDT) Sodium 144 133 - 145 mmol/L LAB CHEMISTRY METHOD 08/27/2024 10:08 AM [facility] Potassium 4.1 3.5 - 5.5 mmol/L LAB CHEMISTRY METHOD 08/27/2024 10:08 AM [facility] Chloride 111(H) 96 - 110 mmol/L LAB CHEMISTRY METHOD 08/27/2024 10:08 AM [facility] CO2 26 21 - 32 mmol/L LAB CHEMISTRY METHOD 08/27/2024 10:08 AM [facility] Anion Gap 7 3 - 11 LAB CHEMISTRY METHOD 08/27/2024 10:08 AM [facility] Glucose 86 70 - 100 mg/dL LAB CHEMISTRY METHOD 08/27/2024 10:08 AM [facility] BUN 41(H) 5 - 25 mg/dL LAB CHEMISTRY METHOD 08/27/2024 10:08 AM [facility] Creatinine 1.64(H) 0.50 - 1.10 mg/dL LAB CHEMISTRY METHOD 08/27/2024 10:08 AM [facility] eGFR 32(L) >=60 mL/min/1. 73m2 LAB CHEMISTRY METHOD 08/27/2024 10:08 AM [facility] Comment:Calculation based on the Chronic Kidney Disease Epidemiology Collaboration (CKD-EPI) equation refit without adjustment for race. BUN/Creatinine Ratio 25.0 LAB CHEMISTRY METHOD 08/27/2024 10:08 AM [facility] Calcium 8.6 8.5 - 10.5 mg/dL LAB CHEMISTRY METHOD 08/27/2024 10:08 AM [facility] Blood Venous blood specimen / Unknown Venipuncture / Unknown 08/27/2024 5:31 AM EDT 08/27/2024 8:43 AM EDT us Lincoln Crespo MD LAB BLOOD ORDERABLES Final Resu lt [facility] [address] [place] [address], * (ABNORMAL) Complete blood count (08/27/2024 5:31 AM EDT) [facility] WBC 5.4 4.8 - 10.8 K/mcL LAB HEMETOLOGY METHOD [facility]24 [facility] RBC 2.70(L) 3.80 - 4.80 M/mcL LAB HEMETOLOGY METHOD 08/27/2024 9:02 AM [facility] Hemoglobin 9.0(L) 11.5 - 16.0 g/dL LAB HEMETOLOGY METHOD 08/27/2024 9:02 AM [facility] Hematocrit 27.9(L) 35.0 - 47.0 % LAB HEMETOLOGY METHOD 08/27/2024 9:02 AM [facility] MCV 104.1(H) 79.0 - 98.0 FL LAB HEMETOLOGY METHOD 08/27/2024 9:02 AM [facility] MCH 33.6(H) 27.0 - 32.0 pcg LAB HEMETOLOGY METHOD 08/27/2024 9:02 AM [facility] MCHC 32.3 32.0 - 37.0 g/dL LAB HEMETOLOGY METHOD 08/27/2024 9:02 AM [facility] RDW 19.1(H) 11.0 - 15.0 % LAB HEMETOLOGY METHOD 08/27/2024 9:02 AM [facility] Platelets 214 130 - 400 K/mcL LAB HEMETOLOGY METHOD 08/27/2024 9:02 AM [facility] MPV 9.3 7.0 - 11.0 FL LAB HEMETOLOGY METHOD 08/27/2024 9:02 AM [facility] NRBC 0.0 <1.0 % LAB HEMETOLOGY METHOD 08/27/2024 9:02 AM EDT [facility] NRBC Absolute 0.00 <0.10 K/mcL LAB HEMETOLOGY METHOD 08/27/2024 9:02 AM EDT [facility] Blood Venous blood specimen / Unknown Venipuncture / Unknown 08/27/2024 5:31 AM EDT 08/27/2024 8:51 AM EDT us Lincoln Crespo MD LAB BLOOD ORDERABLES Final Resu lt [facility] [address] [place] [address], documented in this encounter Visit Diagnoses Diagnosis Essential (primary) hypertension Unspecified essential hypertension Atherosclerotic heart disease of [place] coronary artery without angina pectoris Anemia, unspecified Chronic kidney disease, unspecified documented in this encounter Care Teams Refinery Operator Alkylation Relationship Specialty Start Date End Date John Avina DO [address] [place] [phone] PCP - General Internal Medicine 06/10/24 documented as of this encounter
--- OUTSIDE RECORDS SUMMARY | 2025-03-29 23:03 | XMS_ITS | Encounter Summary ---
Author Organization [employer] Address [address] [place] [address] Care Team Providers Care Kettle Operator Head Name Role Phone John Avina DO Primary Care Provider [phone] Encounter Details Date Type Department Care Team (Late st Contact Info) Description 09/16/2024 Lab Requisition [facility] - Main Lab 299 [facility] [place] [address] Lincoln Crespo MD [address] [place] [address] Essential (primary) hypertension; Atherosclerotic heart [...] mmol/L LAB CHEMISTRY METHOD 09/17/2024 11:11 AM [facility] Potassium 4.0 3.5 - 5.5 mmol/L LAB CHEMISTRY METHOD 09/17/2024 11:11 AM [facility] Chloride 109 96 - 110 mmol/L LAB CHEMISTRY METHOD 09/17/2024 11:11 AM [facility] CO2 24 21 - 32 mmol/L LAB CHEMISTRY METHOD 09/17/2024 11:11 AM [facility] Anion Gap 8 3 - 11 LAB CHEMISTRY METHOD 09/17/2024 11:11 AM [facility] Glucose 103(H) 70 - 100 mg/dL LAB CHEMISTRY METHOD 09/17/2024 11:11 AM [facility] BUN 49(H) 5 - 25 mg/dL LAB CHEMISTRY METHOD 09/17/2024 11:11 AM [facility] Creatinine 1.74(H) 0.50 - 1.10 mg/dL LAB CHEMISTRY METHOD 09/17/2024 11:11 AM [facility] eGFR 30(L) >=60 mL/min/1. 73m2 LAB CHEMISTRY METHOD 09/17/2024 11:11 AM [facility] Comment:Calculation based on the Chronic Kidney Disease Epidemiology Collaboration (CKD-EPI) equation refit without adjustment for race. BUN/Creatinine Ratio 28.2 LAB CHEMISTRY METHOD 09/17/2024 11:11 AM [facility] Calcium 9.3 8.5 - 10.5 mg/dL LAB CHEMISTRY METHOD 09/17/2024 11:11 AM [facility] Blood Venous blood specimen / Unknown Venipuncture / Unknown 09/17/2024 8:40 AM EDT 09/17/2024 10:05 AM EDT us Lincoln Crespo MD LAB BLOOD ORDERABLES Final Resu lt [facility] [address] [place] [address], * (ABNORMAL) Complete blood count (09/17/2024 8:40 AM EDT) [facility] [address] WBC 6.5 4.8 - 10.8 K/mcL LAB HEMETOLOGY METHOD 09/17/2024 10:30 AM EDT [facility] RBC 2.70(L) 3.80 - 4.80 M/mcL LAB HEMETOLOGY METHOD 09/17/2024 10:30 AM EDT [facility] Hemoglobin 9.4(L) 11.5 - 16.0 g/dL LAB HEMETOLOGY METHOD 09/17/2024 10:30 AM [facility] Hematocrit 28.1(L) 35.0 - 47.0 % LAB HEMETOLOGY METHOD 09/17/2024 10:30 AM [facility] MCV 106.0(H) 79.0 - 98.0 FL LAB HEMETOLOGY METHOD [facility] MCH 35.5(H) 27.0 - 32.0 pcg LAB HEMETOLOGY METHOD 09/17/2024 10:30 AM [facility] MCHC 33.5 32.0 - 37.0 g/dL LAB HEMETOLOGY METHOD 09/17/2024 10[facility] RDW 18.7(H) 11.0 - 15.0 % LAB HEMETOLOGY METHOD 09/17/2024 10[facility] Platelets 183 130 - 400 K/mcL LAB HEMETOLOGY METHOD 09/17/2024 10:30 AM [facility] MPV 9.4 7.0 - 11.0 FL LAB HEMETOLOGY METHOD 09/17/2024 10:30 AM EDT [facility] NRBC 0.0 <1.0 % LAB HEMETOLOGY METHOD 09/17/2024 10:30 AM EDT [facility] NRBC Absolute 0.00 <0.10 K/mcL LAB HEMETOLOGY METHOD 09/17/2024 10:30 AM EDT [facility] Blood Venous blood specimen / Unknown Venipuncture / Unknown 09/17/2024 8:40 AM EDT 09/17/2024 10:05 AM EDT us Lincoln Crespo MD LAB BLOOD ORDERABLES Final Resu lt [facility] [address] [place] [address], documented in this encounter Visit Diagnoses Diagnosis Essential (primary) hypertension Unspecified essential hypertension Atherosclerotic heart disease of [place] coronary artery without angina pectoris Anemia, unspecified Chronic kidney disease, unspecified documented in this encounter Care Teams Kettle Operator Head Relationship Specialty Start Date End Date John Avina DO [address] [place] [phone] PCP - General Internal Medicine 06/10/24 documented as of this encounter
--- OUTSIDE RECORDS SUMMARY | 2025-03-29 23:03 | XMS_ITS | Clinical Summary ---
Author Organization [facility] Address [address] [place] [phone] Phone Care Team Providers Care Body Artist Name Role Phone Aniceto Emery MD Primary Care Provider Juliann Tse MD Unavailable Henrry Espino MD Unavailable [phone] Allergies Active Allergy Reactions Criticality Noted Date [...] Smoking Tobacco: Former Cigarettes 1 23 1 [phone] - [phone] Education Answer Date Recorded Are you interested [...] EST) SODIUM 138 135 - 145 mmol/L [facility] LIC# [id number] POTASSIUM 3.8 3.5 - 5.0 mmol/L [facility] LIC# [id number] CHLORIDE 104 98 - 108 mmol/L [facility] LIC# [id number] CO2 27 23 - 32 mmol/L [facility]IC# [id number] BUN 28(H) 9 - 25 mg/dL [facility] LIC# [id number] CREATININE 1.26 0.7 - 1.3 mg/dL [facility] LIC# [id number] GLUCOSE 143(H) 70 - 100 mg/dL [facility]IC# [id number] ALBUMIN 4.3 3.7 - 5.4 g/dL [facility]IC# [id number] TOTAL PROTEIN 7.4 6.0 - 8.0 g/dL [facility]IC# [id number] CALCIUM 9.8 8.8 - 10.5 mg/dL [facility]IC# [id number] ALKALINE PHOSPHATASE 82 36 - 118 U/L [facility] LIC# [id number] TOTAL BILIRUBIN 0.5 0.2 - 1.2 mg/dL [facility] LIC# [id number] AST 15 9 - 30 U/L [facility] LIC# [id number] ALT 16 7 - 52 U/L [facility] LIC# [id number] GLOBULIN 3.1 2.3 - 4.2 g/dL [facility]IC# [id number] EGFR 42 mL/min/1.7 3m2 [facility] LIC# [id number] Comment:Abnormal if <60 mL/m in/1.73m2. If patient is -[place] African, multiply the result by 1.21. ANION GAP 7 5 - 17 mmol/L [facility] LIC# [id number] 06/04/2016 4:11 PM EST 06/04/2016 4:19 PM EST us Henrry Espino MD LAB BLOOD BKR ORDERABLES Fi nal Result [facility] LIC# [id number] [address] [place] [address] from Last 3 Months or Most Recently Relevant to Health Maintenance Insurance [place] [address] [place] [address] [place] [address] [place] [address] [place] [address] [place] [address] [place] [address] [place] [address] [place] [place] [address] PPO [facility] PPO Advance Directives For more information, please contact: [phone] (9AM - 5PM [facility], Saturday-Saturday) Documents on File Type Date Recorded Patient Fan Blade Truer Expl anation Healthcare Proxy 06/04/2016 3:21 PM HCP Care Teams Body Artist Relationship Specialty Start Date End Date Aniceto Emery MD PCP - General Internal Medicine 04/25/16 Henrry Espino MD [address] [place] [address] Multiple Myeloma [facility] [place] [address] [email or web address] PCP - Hematology/Oncology Medical Oncology 06/06/16 Juliann Tse MD [address] [place] [phone] [email or web address] Referring Physician Hematology and Oncology 04/25/16 Additional Source Comments The information contained in this document represents components of the legal health record. It is not the complete legal health record.[facility]
--- OUTSIDE RECORDS SUMMARY | 2025-03-29 23:03 | XMS_ITS | Encounter Summary ---
Author Organization [employer] Address [address] [place] [address] Care Team Providers Care Director Funds Development Name Role Phone John Avina DO Primary Care Provider [phone] Encounter Details Date Type Department Care Team (Late st Contact Info) Description 08/14/2024 Lab Requisition [facility] - Main Lab [address] [facility] [place] [address] Lincoln Crespo MD [address] [place] [address] Essential (primary) hypertension; Atherosclerotic heart disease of [place] coronary artery without angina pectoris; Anemia, unspecified [...] LAB CHEMISTRY METHOD 08/17/2024 1:27 PM EDT [facility] Potassium 3.8 3.5 - 5.5 mmol/L LAB CHEMISTRY METHOD 08/17/2024 1:27 PM [facility] Chloride 108 96 - 110 mmol/L LAB CHEMISTRY METHOD 08/17/2024 1:27 PM [facility] CO2 23 21 - 32 mmol/L LAB CHEMISTRY METHOD 08/17/2024 1:27 PM [facility] Anion Gap 10 3 - 11 LAB CHEMISTRY METHOD 08/17/2024 1:27 PM [facility] Glucose 69(L) 70 - 100 mg/dL LAB CHEMISTRY METHOD 08/17/2024 1:27 PM [facility] BUN 34(H) 5 - 25 mg/dL LAB CHEMISTRY METHOD 08/17/2024 1:27 PM [facility] Creatinine 1.53(H) 0.50 - 1.10 mg/dL LAB CHEMISTRY METHOD 08/17/2024 1:27 PM [facility] eGFR 35(L) >=60 mL/min/1. 73m2 LAB CHEMISTRY METHOD 08/17/2024 1:27 PM [facility] Comment:Calculation based on the Chronic Kidney Disease Epidemiology Collaboration (CKD-EPI) equation refit without adjustment for race. BUN/Creatinine Ratio 22.2 LAB CHEMISTRY METHOD 08/17/2024 1:27 PM [facility] Calcium 8.7 8.5 - 10.5 mg/dL LAB CHEMISTRY METHOD 08/17/2024 1:27 PM [facility] AST (SGOT) 9(L) 10 - 42 unit/L LAB CHEMISTRY METHOD 08/17/2024 1:27 PM [facility] ALT (SGPT) 8(L) 10 - 60 unit/L LAB CHEMISTRY METHOD 08/17/2024 1:27 PM [facility] Alkaline Phosphatase 67 42 - 121 unit/L LAB CHEMISTRY METHOD 08/17/2024 1:27 PM [facility] Total Protein 5.5(L) 6.0 - 8.0 g/dL LAB CHEMISTRY METHOD 08/17/2024 1:27 PM EDT [facility] Albumin 2.4(L) 3.2 - 5.0 g/dL LAB CHEMISTRY METHOD 08/17/2024 1:27 PM EDT [facility] Total Bilirubin 0.4 0.0 - 1.4 mg/dL LAB CHEMISTRY METHOD 08/17/2024 1:27 PM EDT [facility] Blood Venous blood specimen / Unknown Venipuncture / Unknown 08/17/2024 5:41 AM EDT 08/17/2024 10:15 AM EDT us Lincoln Crespo MD LAB BLOOD ORDERABLES Final Resu lt [facility] [address] [place] [address], * (ABNORMAL) Complete blood count (08/17/2024 5:41 AM EDT) WBC 7.2 4.8 - 10.8 K/mcL LAB HEMETOLOGY METHOD 08/17/2024 11:28 AM [facility] RBC 2.90(L) 3.80 - 4.80 M/mcL LAB HEMETOLOGY METHOD 08/17/2024 11:28 AM EDT [facility] Hemoglobin 9.6(L) 11.5 - 16.0 g/dL LAB HEMETOLOGY METHOD 08/17/2024 11:28 AM EDT [facility] Hematocrit 29.9(L) 35.0 - 47.0 % LAB HEMETOLOGY METHOD 08/17/2024 11:28 [facility] MCV 103.5(H) 79.0 - 98.0 FL LAB HEMETOLOGY METHOD 08/17/2024 11:28 AM EDT [facility] MCH 33.2(H) 27.0 - 32.0 pcg LAB HEMETOLOGY METHOD 08/17/2024 11:28 AM [facility] MCHC 32.1 32.0 - 37.0 g/dL LAB HEMETOLOGY METHOD 08/17/2024 11:28 AM [facility] RDW 18.2(H) 11.0 - 15.0 % LAB HEMETOLOGY METHOD 08/17/2024 11:28 AM [facility] Platelets 215 130 - 400 K/mcL LAB HEMETOLOGY METHOD 08/17/2024 11:28 AM [facility] MPV 9.2 7.0 - 11.0 FL LAB HEMETOLOGY METHOD 08/17/2024 11:28 AM [facility] NRBC 0.0 <1.0 % LAB HEMETOLOGY METHOD 08/17/2024 11:28 AM [facility] NRBC Absolute 0.00 <0.10 K/mcL LAB HEMETOLOGY METHOD 08/17/2024 11:28 AM [facility] Blood Venous blood specimen / Unknown Venipuncture / Unknown 08/17/2024 5:41 AM EDT 08/17/2024 10:15 AM EDT us Lincoln Crespo MD LAB BLOOD ORDERABLES Final Resu lt [facility] [address] [place] [address], documented in this encounter Visit Diagnoses Diagnosis Essential (primary) hypertension Unspecified essential hypertension Atherosclerotic heart disease of [place] coronary artery without angina pectoris Anemia, unspecified documented in this encounter Care Teams Director Funds Development Relationship Specialty Start Date End Date John Avina DO [address] [place] [phone] PCP - General Internal Medicine 06/10/24 documented as of this encounter
--- OUTSIDE RECORDS SUMMARY | 2025-03-29 23:03 | XMS_ITS | Encounter Summary ---
Author Organization [facility] Address [address] [place] [address] Care Team Providers Care Paleontology Teacher Name Role Phone John Avina DO Primary Care Provider Encounter Details Date Type Department Care Team (Late st Contact Info) Description 06/10/2024 Lab Requisition [facility] - Main Lab 299 [facility] [place] [address] Arianna Iraheta PA [address] [place], [place] [id number] Dysuria Social History Tobacco Use Types Packs/Day [...] ssp pneumoniae(A) RIC 06/12/2024 11:01 AM EST [facility] LAB Comment: This is an edited result. [...] MICROBIOLOGY - GENERAL ORD ERABLES Final Result [facility] HOSPITAL LAB [address] [place] [address], documented in this encounter Visit Diagnoses Diagnosis Dysuria documented in this encounter Care Teams Paleontology Teacher Relationship Specialty Start Date End Date John Avina DO [address] [place] [phone] PCP - General Internal Medicine 06/10/24 documented as of this encounter
--- OUTSIDE RECORDS SUMMARY | 2025-03-29 23:03 | XMS_ITS | Encounter Summary ---
Author Organization [facility] Address [id number] [place] [address] Care Team Providers Care Supervisory Investigative Specialist Name Role Phone John Avina DO Primary Care Provider [phone] Encounter Details Date Type Department Care Team (Late st Contact Info) Description 08/16/2024 Lab Requisition [facility] - Main Lab 299 [facility] [place] [address] Lincoln Crespo MD [address] [place] [address] Other ulcerative colitis with rectal [...] AM EDT) WBC 7.2 4.8 - 10.8 K/[facility] LAB HEMETOLOGY METHOD 08/16/2024 10:41 AM EDT [facility] RBC 2.90(L) 3.80 - 4.80 M/[facility] LAB HEMETOLOGY METHOD 08/16/2024 10:41 AM [facility] LAB Hemoglobin 9.7(L) 11.5 - 16.0 g/dL LAB HEMETOLOGY METHOD 08/16/2024 10:41 AM [facility] LAB Hematocrit 29.9(L) 35.0 - 47.0 % LAB HEMETOLOGY METHOD 08/16/2024 10:41 AM [facility] LAB MCV 101.7(H) 79.0 - 98.0 FL LAB HEMETOLOGY METHOD 08/16/2024 10:41 AM [facility] LAB MCH 33.0(H) 27.0 - 32.0 pcg LAB HEMETOLOGY METHOD 08/16/2024 10:41 AM [facility] LAB MCHC 32.4 32.0 - 37.0 g/dL LAB HEMETOLOGY METHOD 08/16/2024 10:41 AM [facility] LAB RDW 18.1(H) 11.0 - 15.0 % LAB HEMETOLOGY METHOD 08/16/2024 10:41 AM [facility] LAB Platelets 246 130 - 400 K/mcL LAB HEMETOLOGY METHOD 08/16/2024 10:41 AM [facility] LAB MPV 9.2 7.0 - 11.0 FL LAB HEMETOLOGY METHOD 08/16/2024 10:41 AM [facility] LAB NRBC 0.0 <1.0 % LAB HEMETOLOGY METHOD 08/16/2024 10:41 AM [facility] LAB NRBC Absolute 0.00 <0.10 K/mcL LAB HEMETOLOGY METHOD 08/16/2024 10:41 AM [facility] LAB Blood Venous blood specimen / Unknown Venipuncture / Unknown 08/16/2024 8:48 AM EDT 08/16/2024 10:02 AM EDT Lincoln Crespo MD LAB BLOOD ORDERABLES Final Resu lt [facility] ([facility]) HOSPITAL LAB [address] [place] [address], documented in this encounter Visit Diagnoses Diagnosis Other ulcerative colitis with rectal bleeding (CMS/HCC V24, CMS/HCC V28) Anemia in chronic kidney disease (CODE) documented in this encounter Care Teams Supervisory Investigative Specialist Relationship Specialty Start Date End Date John Avina DO [address] [place] [phone] PCP - General Internal Medicine 06/10/24 documented as of this encounter
--- OUTSIDE RECORDS SUMMARY | 2025-03-29 23:03 | XMS_ITS | Encounter Summary ---
Author Organization [email or web address] Address [address] [place] [address] Care Team Providers Care Ventilating Equipment Installer Name Role Phone John Avina DO Primary Care Provider [phone] Encounter Details Date Type Department Care Team (Late st Contact Info) Description 08/30/[address] [facility] - Main Lab 299 [facility] [place] [address] Lincoln Crespo MD [address] [place] [address] Essential (primary) hypertension; Atherosclerotic heart disease of [place] coronary artery without angina pectoris; Anemia, unspecified [...] Essential (primary) hypertension Atherosclerotic heart disease of [place] coronary artery without angina pectoris Anemia, unspecified COMPREHENSIVE METABOLIC PANEL Routine 08/31/2024 5:18 AM EDT Essential (primary) hypertension Atherosclerotic heart disease of [place] coronary artery without angina pectoris Anemia, unspecified documented in this encounter Results * (ABNORMAL) Comprehensive metabolic panel (08/31/2024 5:18 AM EDT) Sodium 141 133 - 145 mmol/L LAB CHEMISTRY METHOD 08/31/2024 1:17 PM EDT [facility] Potassium 4.7 3.5 - 5.5 mmol/L LAB CHEMISTRY METHOD 08/31/2024 1:17 PM [facility] LAB Comment:Hemolysis present Chloride 110 96 - 110 mmol/L LAB CHEMISTRY METHOD 08/31/2024 1:17 PM [facility] LAB CO2 15(L) 21 - 32 mmol/L LAB CHEMISTRY METHOD 08/31/2024 1:17 PM [facility] LAB Anion Gap 16(H) 3 - 11 LAB CHEMISTRY METHOD 08/31/2024 1:17 PM [facility] LAB Glucose 67(L) 70 - 100 mg/dL LAB CHEMISTRY METHOD 08/31/2024 1:17 PM [facility] LAB BUN 49(H) 5 - 25 mg/dL LAB CHEMISTRY METHOD 08/31/2024 1:17 PM [facility] LAB Creatinine 1.99(H) 0.50 - 1.10 mg/dL LAB CHEMISTRY METHOD 08/31/2024 1:17 PM [facility] LAB eGFR 25(L) >=60 mL/min/1. 73m2 LAB CHEMISTRY METHOD 08/31/2024 1:17 PM [facility] LAB Comment:Calculation based on the Chronic Kidney Disease Epidemiology Collaboration (CKD-EPI) equation refit without adjustment for race. BUN/Creatinine Ratio 24.6 LAB CHEMISTRY METHOD 08/31/2024 1:17 PM [facility] LAB Calcium 9.1 8.5 - 10.5 mg/dL LAB CHEMISTRY METHOD 08/31/2024 1:17 PM [facility] LAB AST (SGOT) 14 10 - 42 unit/L LAB CHEMISTRY METHOD 08/31/2024 1:17 PM [facility] LAB ALT (SGPT) 18 10 - 60 unit/L LAB CHEMISTRY METHOD 08/31/2024 1:17 PM [facility] LAB Alkaline Phosphatase 70 42 - 121 unit/L LAB CHEMISTRY METHOD 08/31/2024 1:[address] [facility] LAB Total Protein 6.6 6.0 - 8.0 g/dL LAB CHEMISTRY METHOD 08/31/2024 1:[address] [facility] Albumin 3.1(L) 3.2 - 5.0 g/dL LAB CHEMISTRY METHOD 08/31/2024 1:[address] [facility] Total Bilirubin 0.4 0.0 - 1.4 mg/dL LAB CHEMISTRY METHOD 08/31/2024 1:[address] [facility] Blood Venous blood specimen / Unknown 08/31/2024 5:18 AM EDT 08/31/2024 11:34 AM EDT [facility] LAB - 08/31/2024 1:17 PM EDT Short sample, interpret results with caution us Lincoln Crespo MD LAB BLOOD ORDERABLES Final Resu lt [facility] LAB [address] [place] [address], [place] [phone] * (ABNORMAL) Complete blood count (08/31/2024 5:18 AM EDT) WBC 5.2 4.8 - 10.8 K/mcL LAB HEMETOLOGY METHOD 08/31/2024 1:[address] [facility] RBC 2.50(L) 3.80 - 4.80 M/mcL LAB HEMETOLOGY METHOD 08/31/2024 1:[address] [facility] LAB Hemoglobin 8.6(L) 11.5 - 16.0 g/dL LAB HEMETOLOGY METHOD 08/31/2024 1:[address] [facility] LAB Hematocrit 27.1(L) 35.0 - 47.0 % LAB HEMETOLOGY METHOD 08/31/2024 1:[address] [facility] LAB MCV 106.7(H) 79.0 - 98.0 FL LAB HEMETOLOGY METHOD 08/31/2024 1:[address] [facility] LAB MCH 33.9(H) 27.0 - 32.0 pcg LAB HEMETOLOGY METHOD 08/31/2024 1:[address] [facility] LAB MCHC 31.7(L) 32.0 - 37.0 g/dL LAB HEMETOLOGY METHOD 08/31/2024 1:[address] [facility] RDW 19.2(H) 11.0 - 15.0 % LAB HEMETOLOGY METHOD 08/31/2024 1:[address] [facility] LAB Platelets 223 130 - 400 K/mcL LAB HEMETOLOGY METHOD 08/31/2024 1:[address] [facility] LAB MPV 9.6 7.0 - 11.0 FL LAB HEMETOLOGY METHOD 08/31/2024 1:[address] [facility] LAB NRBC 0.0 <1.0 % LAB HEMETOLOGY METHOD 08/31/2024 1:[address] [facility] LAB NRBC Absolute 0.00 <0.10 K/mcL LAB HEMETOLOGY METHOD 08/31/2024 1:[address] [facility] LAB Blood Venous blood specimen / Unknown 08/31/2024 5:18 AM EDT 08/31/2024 11:31 AM EDT us Lincoln Crespo MD LAB BLOOD ORDERABLES Final Resu lt [facility] LAB [address] [place] [address], documented in this encounter Visit Diagnoses Diagnosis Essential (primary) hypertension Unspecified essential hypertension Atherosclerotic heart disease of [place] coronary artery without angina pectoris Anemia, unspecified documented in this encounter Care Teams Ventilating Equipment Installer Relationship Specialty Start Date End Date John Avina DO [address] [place] [phone] PCP - General Internal Medicine 06/10/24 documented as of this encounter
--- OUTSIDE RECORDS SUMMARY | 2025-03-29 23:03 | XMS_ITS | Encounter Summary ---
Author Organization [facility] Address [address] [place] [address] Care Team Providers Care Water Purifier Operator Name Role Phone John Avina DO Primary Care Provider [phone] Encounter Details Date Type Department Care Team (Late st Contact Info) Description 08/15/2024 Lab Requisition [facility] - Main Lab 299 [facility] [place] [address] Lincoln Crespo MD [address] [place] [address] Other ulcerative colitis with rectal [...] AM EDT) WBC 6.7 4.8 - 10.8 K/[facility] LAB HEMETOLOGY METHOD 08/15/2024 11:29 AM EDT [facility] LAB RBC 3.10(L) 3.80 - 4.80 M/[facility] LAB HEMETOLOGY METHOD 08/15/2024 11:29 AM [...] BLOOD ORDERABLES Final Resu lt [facility] HOSPITAL LAB [address] [place] [address], documented in this encounter Visit Diagnoses Diagnosis Other ulcerative colitis with rectal bleeding (CMS/HCC V24, CMS/HCC V28) Anemia in chronic kidney disease (CODE) documented in this encounter Care Teams Water Purifier Operator Relationship Specialty Start Date End Date John Avina DO [address] [place] [phone] PCP - General Internal Medicine 06/10/24 documented as of this encounter
--- OUTSIDE RECORDS SUMMARY | 2025-03-29 23:03 | XMS_ITS | Clinical Summary ---
Author Organization [address] Address [address] [place] [address] Phone Care Team Providers Care Broadband Engineer Name Role Phone FabriceJohn solares Primary Care Provider [phone] Social History Tobacco Use Types Packs/Day Years [...] mmol/L LAB CHEMISTRY METHOD 09/17/2024 11:11 AM [facility] LAB Potassium 4.0 3.5 - 5.5 mmol/L LAB CHEMISTRY METHOD 09/17/2024 11:11 AM [facility] LAB Chloride 109 96 - 110 mmol/L LAB CHEMISTRY METHOD 09/17/2024 11:11 AM [facility] LAB CO2 24 21 - 32 mmol/L LAB CHEMISTRY METHOD 09/17/2024 11:11 AM [facility] LAB Anion Gap 8 3 - 11 LAB CHEMISTRY METHOD 09/17/2024 11:11 AM [facility] LAB Glucose 103(H) 70 - [...] [facility] LAB [address] [place] [address], from Last 3 Months or Most Recently Relevant to Health Maintenance Insurance MEDICARE [facility] MEDICARE Care Teams Broadband Engineer Relationship Specialty Start Date End Date John Avina DO [address] [place] [phone] PCP - General Internal Medicine 06/10/24
--- OUTSIDE RECORDS SUMMARY | 2025-03-29 23:03 | XMS_ITS | Encounter Summary ---
Author Organization [facility] Address [address] [place] [address] Care Team Providers Care Drill Foreman Name Role Phone John Avina DO Primary Care Provider [phone] Encounter Details Date Type Department Care Team (Late st Contact Info) Description 09/18/2024 Lab Requisition [facility] - Main Lab [address] [facility] [address] [place] [address] Lincoln Crespo MD [address] [place] [address] Essential (primary) hypertension; Atherosclerotic heart [...] unspecified documented in this encounter Care Teams Drill Foreman Relationship Specialty Start Date End Date John Avina DO [address] [place] [phone] PCP - General Internal Medicine 06/10/24 documented as of this encounter
--- OUTSIDE RECORDS SUMMARY | 2025-03-29 23:04 | XMS_ITS | Encounter Summary ---
Author Organization [facility] Address [address] [place] [address] Care Team Providers Care Global Account Manager Name Role Phone John Avina DO Primary Care Provider [phone] Encounter Details Date Type Department Care Team (Late st Contact Info) Description 09/05/2024 Lab Requisition [facility] - Main Lab 299 [facility] [place] [address] Lincoln Crespo MD [address] [place] [address] Essential (primary) hypertension; Atherosclerotic heart disease of [place] coronary artery without angina pectoris; Anemia, unspecified [...] Essential (primary) hypertension Atherosclerotic heart disease of [place] coronary artery without angina pectoris Anemia, unspecified COMPREHENSIVE METABOLIC PANEL Routine 09/07/2024 5:11 AM EDT Essential (primary) hypertension Atherosclerotic heart disease of [place] coronary artery without angina pectoris Anemia, unspecified documented in this encounter Results * (ABNORMAL) Comprehensive metabolic panel (09/07/2024 5:11 AM EDT) Sodium 144 133 - 145 mmol/L LAB CHEMISTRY METHOD 09/07/2024 2:49 PM EDT [facility] LAB Potassium 3.9 3.5 - 5.5 mmol/L LAB CHEMISTRY METHOD 09/07/2024 2:49 PM [facility] LAB Chloride 109 96 - 110 mmol/L LAB CHEMISTRY METHOD 09/07/2024 2:49 PM [facility] LAB CO2 23 21 - 32 mmol/L LAB CHEMISTRY METHOD 09/07/2024 2:49 PM [facility] LAB Anion Gap 12(H) 3 - 11 LAB CHEMISTRY METHOD 09/07/2024 2:49 PM [facility] LAB Glucose 77 70 - 100 mg/dL LAB CHEMISTRY METHOD 09/07/2024 2:49 PM [facility] LAB BUN 48(H) 5 - 25 mg/dL LAB CHEMISTRY METHOD 09/07/2024 2:49 PM [facility] LAB Creatinine 1.93(H) 0.50 - 1.10 mg/dL LAB CHEMISTRY METHOD 09/07/2024 2:49 PM [facility] LAB eGFR 26(L) >=60 mL/min/1. 73m2 LAB CHEMISTRY METHOD 09/07/2024 2:49 PM [facility] LAB Comment:Calculation based on the Chronic Kidney Disease Epidemiology Collaboration (CKD-EPI) equation refit without adjustment for race. BUN/Creatinine Ratio 24.9 LAB CHEMISTRY METHOD 09/07/2024 2:49 PM [facility] LAB Calcium 8.9 8.5 - 10.5 mg/dL LAB CHEMISTRY METHOD 09/07/2024 2:49 PM [facility] LAB AST (SGOT) 6(L) 10 - 42 unit/L LAB CHEMISTRY METHOD 09/07/2024 2:49 PM [facility] LAB ALT (SGPT) 14 10 - 60 unit/L LAB CHEMISTRY METHOD 09/07/2024 2:49 PM [facility] LAB Alkaline Phosphatase 61 42 - 121 unit/L LAB CHEMISTRY METHOD 09/07/2024 2:49 PM [facility] LAB Total Protein 6.1 6.0 - 8.0 g/dL LAB CHEMISTRY METHOD 09/07/2024 2:49 PM EDT [facility] LAB Albumin 3.0(L) 3.2 - 5.0 g/dL LAB CHEMISTRY METHOD 09/07/2024 2:49 PM EDT [facility] LAB Total Bilirubin 0.5 0.0 - 1.4 mg/dL LAB CHEMISTRY METHOD 09/07/2024 2:49 PM EDT [facility] LAB Blood Venous blood specimen / Unknown Venipuncture / Unknown 09/07/2024 5:11 AM EDT 09/07/2024 2:11 PM EDT us Lincoln Crespo MD LAB BLOOD ORDERABLES Final Resu lt [facility] LAB [address] [place] [address], [place] [phone] * (ABNORMAL) Complete blood count (09/07/2024 5:11 AM EDT) WBC 5.1 4.8 - 10.8 K/mcL LAB HEMETOLOGY METHOD 09/07/2024 3:07 PM EDT [facility] LAB RBC 2.40(L) 3.80 - 4.80 M/mcL LAB HEMETOLOGY METHOD 09/07/2024 3:07 PM EDT [facility] LAB Hemoglobin 8.2(L) 11.5 - 16.0 g/dL LAB HEMETOLOGY METHOD 09/07/2024 3:07 PM EDT [facility] LAB Hematocrit 25.9(L) 35.0 - 47.0 % LAB HEMETOLOGY METHOD 09/07/2024 3:07 PM EDT [facility] LAB MCV 107.9(H) 79.0 - 98.0 FL LAB HEMETOLOGY METHOD 09/07/2024 3:07 PM EDT [facility] LAB MCH 34.2(H) 27.0 - 32.0 pcg LAB HEMETOLOGY METHOD 09/07/2024 3:07 PM EDT [facility] LAB MCHC 31.7(L) 32.0 - 37.0 g/dL LAB HEMETOLOGY METHOD 09/07/2024 3:07 PM EDT [facility] LAB RDW 19.3(H) 11.0 - 15.0 % LAB HEMETOLOGY METHOD 09/07/2024 3:07 PM EDT [facility] LAB Platelets 176 130 - 400 K/mcL LAB HEMETOLOGY METHOD 09/07/2024 3:07 PM EDT [facility] LAB MPV 9.0 7.0 - 11.0 FL LAB HEMETOLOGY METHOD 09/07/2024 3:07 PM EDT [facility] LAB NRBC 0.0 <1.0 % LAB HEMETOLOGY METHOD 09/07/2024 3:07 PM EDT [facility] LAB NRBC Absolute 0.00 <0.10 K/mcL LAB HEMETOLOGY METHOD 09/07/2024 3:07 PM EDT [facility] LAB Blood Venous blood specimen / Unknown Venipuncture / Unknown 09/07/2024 5:11 AM EDT 09/07/2024 12:03 PM EDT us Lincoln Crespo MD LAB BLOOD ORDERABLES Final Resu lt [facility] LAB [address] [place] [address], [place] [phone] documented in this encounter Visit Diagnoses Diagnosis Essential (primary) hypertension Unspecified essential hypertension Atherosclerotic heart disease of [place] coronary artery without angina pectoris Anemia, unspecified documented in this encounter Care Teams Global Account Manager Relationship Specialty Start Date End Date John Avina DO [address] [place] [phone] PCP - General Internal Medicine 06/10/24 documented as of this encounter
--- OUTSIDE RECORDS SUMMARY | 2025-03-29 23:04 | XMS_ITS | Encounter Summary ---
Author Organization [address] Address [address] [place] [address] Care Team Providers Care Assistant Education Director Name Role Phone John Avina DO Primary Care Provider [phone] Encounter Details Date Type Department Care Team (Late st Contact Info) Description 09/09/2024 Lab Requisition [facility] - Main Lab 299 [facility] [place] [address] Lincoln Crespo MD [address] [place] [address] Essential (primary) hypertension; Atherosclerotic heart [...] mmol/L LAB CHEMISTRY METHOD 09/10/2024 10:04 AM [facility] LAB Potassium 4.0 3.5 - 5.5 mmol/L LAB CHEMISTRY METHOD 09/10/2024 10:04 AM [facility] LAB Chloride 113(H) 96 - 110 mmol/L LAB CHEMISTRY METHOD 09/10/2024 10:04 AM [facility] LAB CO2 26 21 - 32 mmol/L LAB CHEMISTRY METHOD 09/10/2024 10:04 AM [facility] LAB Anion Gap 7 3 - 11 LAB CHEMISTRY METHOD 09/10/2024 10:04 AM [facility] LAB Glucose 84 70 - 100 mg/dL LAB CHEMISTRY METHOD 09/10/2024 10:04 AM [facility] LAB BUN 44(H) 5 - 25 mg/dL LAB CHEMISTRY METHOD 09/10/2024 10:04 AM [facility] LAB Creatinine 2.03(H) 0.50 - 1.10 mg/dL LAB CHEMISTRY METHOD 09/10/2024 10:04 AM [facility] LAB eGFR 25(L) >=60 mL/min/1. 73m2 LAB CHEMISTRY METHOD 09/10/2024 10:04 AM [facility] LAB Comment:Calculation based on the Chronic Kidney Disease Epidemiology Collaboration (CKD-EPI) equation refit without adjustment for race. BUN/Creatinine Ratio 21.7 LAB CHEMISTRY METHOD 09/10/2024 10:04 AM [facility] LAB Calcium 8.8 8.5 - 10.5 mg/dL LAB CHEMISTRY METHOD 09/10/2024 10:04 AM [facility] LAB Blood Venous blood specimen / Unknown Venipuncture / Unknown 09/10/2024 6:12 AM EDT 09/10/2024 9:16 AM EDT us Lincoln Crespo MD LAB BLOOD ORDERABLES Final Resu lt [facility] [address] [place] [address], * (ABNORMAL) Complete blood count (09/10/2024 6:12 AM EDT) [facility] WBC 5.2 4.8 - 10.8 K/mcL LAB HEMETOLOGY METHOD 09/10/2024 9:[address] [facility] RBC 2.50(L) 3.80 - 4.80 M/mcL LAB HEMETOLOGY METHOD 09/10/2024 9:[address] [facility] Hemoglobin 8.6(L) 11.5 - 16.0 g/dL LAB HEMETOLOGY METHOD 09/10/2024 9:[address] [facility] Hematocrit 26.4(L) 35.0 - 47.0 % LAB [facility]OLOGY [facility] 106.5(H) 79.0 - 98.0 FL LAB HEMETOLOGY METHOD 09/10/2024 9:[address] [facility] MCH 34.7(H) 27.0 - 32.0 pcg LAB HEMETOLOGY METHOD [facility]/10[facility]24 [facility] MCHC 32.6 32.0 - 37.0 g/dL LAB HEMETOLOGY METHOD 09/10[facility]24 [facility] RDW 19.2(H) 11.0 - 15.0 % LAB HEMETOLOGY METHOD 09/10/2024 9:[address] [facility] Platelets 161 130 - 400 K/mcL LAB HEMETOLOGY METHOD 09/10/2024 9:[address] [facility] MPV 9.3 7.0 - 11.0 FL LAB HEMETOLOGY METHOD 09/10/2024 9:33 AM EDT [facility] NRBC 0.0 <1.0 % LAB HEMETOLOGY METHOD 09/10/2024 9:[address] [facility] NRBC Absolute 0.00 <0.10 K/mcL LAB HEMETOLOGY METHOD 09/10/2024 9:[address] [facility] Blood Venous blood specimen / Unknown Venipuncture / Unknown 09/10/2024 6:12 AM EDT 09/10/2024 9:16 AM EDT us Lincoln Crespo MD LAB BLOOD ORDERABLES Final Resu lt [facility] ([facility] [address] [place] [address], documented in this encounter Visit Diagnoses Diagnosis Essential (primary) hypertension Unspecified essential hypertension Atherosclerotic heart disease of [place] coronary artery without angina pectoris Anemia, unspecified Chronic kidney disease, unspecified documented in this encounter Care Teams Assistant Education Director Relationship Specialty Start Date End Date John Avina DO [address] [place] [phone] PCP - General Internal Medicine 06/10/24 documented as of this encounter
--- OUTSIDE RECORDS SUMMARY | 2025-03-29 23:04 | XMS_ITS | Encounter Summary ---
Author Organization [employer] Address [address] [place] [address] Care Team Providers Care Hris Coordinator Name Role Phone John Avina DO Primary Care Provider [phone] Encounter Details Date Type Department Care Team (Late st Contact Info) Description 09/14/2024 Lab Requisition [facility] - Main Lab [address] [facility] [place] [address] Lincoln Crespo MD [address] [place] [address] Essential (primary) hypertension; Atherosclerotic heart disease of [place] coronary artery without angina pectoris; Anemia, [...] Essential (primary) hypertension Atherosclerotic heart disease of [place] coronary artery without angina pectoris Anemia, unspecified COMPREHENSIVE METABOLIC PANEL Routine 09/15/2024 7:05 AM EDT Essential (primary) hypertension Atherosclerotic heart disease of [place] coronary artery without angina pectoris Anemia, unspecified documented in this encounter Results * (ABNORMAL) Complete blood count (09/15/2024 7:07 AM EDT) WBC 5.1 4.8 - 10.8 K/mcL LAB HEMETOLOGY METHOD 09/15/2024 12:07 PM EDT [facility] ([facility]) [facility] RBC 2.30(L) 3.80 - 4.80 [...] Resu lt [facility] [address] [place] [address], [place] [phone] * (ABNORMAL) Comprehensive metabolic panel (09/15/2024 7:05 [...] LAB CHEMISTRY METHOD 09/15/2024 12:43 PM EDT [facility] Calcium 8.9 8.5 - 10.5 mg/dL LAB CHEMISTRY METHOD 09/15/2024 12:43 PM T [facility] AST (SGOT) 6(L) 10 - 42 unit/L LAB CHEMISTRY METHOD 09/15/2024 12:43 PM [facility] ALT (SGPT) 15 10 - 60 unit/L LAB CHEMISTRY METHOD 09/15/2024 12:43 PM T [facility] Alkaline Phosphatase 56 42 - [...] Resu lt [facility] [address] [place] [address], documented in this encounter Visit Diagnoses Diagnosis Essential (primary) hypertension Unspecified essential hypertension Atherosclerotic heart disease of [place] coronary artery without angina pectoris Anemia, unspecified documented in this encounter Care Teams Hris Coordinator Relationship Specialty Start Date End Date John Avina DO [address] [place] [phone] PCP - General Internal Medicine 06/10/24 documented as of this encounter
== END 2025-03-29 14:32 | disposition home or self-care (01) ==
LOC: HO.HMCSH 14:08
PROVIDERS: PCP Physician Assistant Medical; Visit Provider Physician Assistant Medical
DX: E03.9 Hypothyroidism, unspecified (principal); W19.XXXA Unspecified fall, initial encounter

== ENCOUNTER 2025-04-08 13:32 | Outpatient (AMB) | payer MEDICARE, SELFPAY ==
[2025-04-08 13:34] VITALS: BP 118/70; PULSE 70; BMI 25.4
--- NOTE | 2025-04-08 13:34 | MHC.OFFVIS ---
Vital Signs 04/08/25 13:34 Height 4 ft 11 in Weight 125 lb 10.616 oz BMI 25.4 BP 118/70 Blood Pressure Location Lt brachial Position Sitting Pulse 70 Intake Visit Reasons: 6 mth f/up Intake Note: 6 month follow-up c/o of center of the chest pain when eating District Attorney Required: No Allergies diphenhydramine (From Benadryl) Allergy (Intermediate, Verified 03/31/25 10:09) Dizziness esomeprazole (From NEXIUM) Allergy (Intermediate, Verified 03/31/25 10:09) CHEST PAIN omeprazole (From PRILOSEC) Allergy (Intermediate, Verified 03/31/25 10:09) CHEST PAIN Medication List - Last Reconciled 04/08/25 by Helio Comer MD [acetaminophen 1,000 mg PO DAILY PRN] allopurinol 300 mg PO DAILY ascorbic acid (vitamin C) (Vitamin C) 500 mg PO DAILY biotin 1 mg PO DAILY bumetanide 1 mg PO DAILY 90 days calcium carbonate (Calcium 600) 600 mg PO DAILY carvedilol 6.25 mg PO BID cholecalciferol (vitamin D3) (Vitamin D3) 50 mcg PO DAILY clopidogrel 75 mg PO DAILY cranberry 500 mg PO DAILY cyanocobalamin (vitamin B-12) 5,000 mcg PO DAILY d-mannose 500 mg PO DAILY exemestane 25 mg PO DAILY folic acid 1 mg PO DAILY hydralazine 25 mg See Protocol PO BID levothyroxine 100 mcg PO 4XW 90 days loratadine (Claritin) 10 mg PO DAILY [potassium as directed.] rosuvastatin 20 mg PO DAILY vitamin E (dl, acetate) 450 mg PO DAILY HPI Comments Details: Tonia comes for follow-up after recent LUCI. She underwent a cardiac catheterization which showed no obstructive coronary artery disease, with hemodynamic suggestive of decompensated heart failure with suggestion of possibly severe mitral regurgitation as was noted on transthoracic echocardiogram although LV g was not done. Patient subsequently underwent a LUCI which only showed moderate mitral regurgitation with severely reduced LV ejection fraction. Patient continues to have significant symptoms of exertional shortness of breath. Says feels fullness in his belly after she eats. She has no significant leg edema. She denies any clear orthopnea. She has been taking all her medications although says the urine output has been only tepid. She was not able to get Jardiance because of insurance issues. Currently taking bumetanide. [facility] Medical History Fall Post-nasal drip Trouble swallowing Chronic back pain Impacted cerumen of left ear Lower back pain Left hip pain CAD (coronary atherosclerotic disease) Osteoarthritis Hypothyroidism Multiple myeloma CKD stage 3 due to type 2 diabetes mellitus Impingement syndrome, shoulder Left shoulder pain CHF (congestive heart failure) Closed left hip fracture CAD (coronary artery disease) CHF (congestive heart failure) Cervix prolapsed into vagina History of blood transfusion (~02/01/23) Diabetes mellitus HFrEF (heart failure with reduced ejection fraction) Cardiomyopathy Normal colonoscopy Type 2 diabetes mellitus Diverticulosis Irritable bowel syndrome Pulmonary emboli GERD (gastroesophageal reflux disease) Nephrolithiasis Hypoparathyroidism Papillary thyroid carcinoma HTN (hypertension) Polymyalgia rheumatica Hyperglycemia Chronic anemia Anemia Surgical History History of cardiac cath Status post hip surgery (~08/04/23) History of colonoscopy (~07/30/18) Stented coronary artery Breast mass, right H/O endoscopy History of cholecystectomy H/O total thyroidectomy Family History Sister CHF (congestive heart failure) Daughter Breast cancer Son Kidney stones Social History Household Members: Other Household Members Other:: other Housing: House Do you presently have visiting nurse or other home services: Yes Alcohol intake: current Alcohol intake frequency: does not drink Patient Tobacco Use Status: Former Tobacco user Years Smoked: 30 +/- e-Cigarette/Vaping Use: Never Used Second Hand Smoke Exposure: No Advance Directives Date on File: 06/27/24 service: No Current occupational status: retired Current occupation: Right Handed Cognitive needs: Yes (cane) Hearing needs: No Vision needs: Yes (reading glasses) Review of Systems Const Denies chills, Denies fatigue, Denies fever(s), Denies frequent falls, Denies weakness, Denies weight gain and Denies weight loss ENT Denies dizziness Card Denies chest pain, Denies leg edema, Denies lightheadedness, Denies palpitations, Denies dyspnea, Denies dyspnea on exertion, Denies orthopnea and Denies other (loss of consciousness) Resp Denies cough, Denies dyspnea and Denies dyspnea on exertion GI Denies hematochezia and Denies change in stool character Musc Denies abnormal gait, Denies muscle weakness, Denies numbness, Denies radiating pain into limb and Denies tingling Neuro Denies abnormal gait, Denies dizziness, Denies frequent falls, Denies numbness, Denies tingling and Denies weakness Endo Denies fatigue and Denies palpitations Physical Exam Vital Signs: Last Vital Signs Pulse 70 04/08/25 13:34 BP 118/70 04/08/25 13:34 BMI result Body Mass Index 25.4 Const General: cooperative, healthy appearing, comfortable, no acute distress and tired appearing Orientation/consciousness: patient oriented x3 Neck Neck: Yes normal visual inspection and Yes JVD Resp Effort & Inspection: normal respiratory effort Auscultation: clear to auscultation bilaterally, no crackles, no rales, no rhonchi and no wheezes Cardio Jugular venous distension: JVD Rate: regular rate Rhythm: regular rhythm Heart sounds: S1 normal heart sound present, S2 normal heart sound present, no gallops, no murmurs and no rubs GI Inspection: Yes distended Auscultation: normal bowel sounds Neuro General: patient oriented x3 and no focal motor deficits Extrem General: Yes normal to inspection, No no pedal edema and No calf tenderness Psych Appearance: grossly normal Mental Status: mental status grossly normal Speech and movement: Normal speech and movement present Assessment & Plan Assessment & Plan (1) HFrEF (heart failure with reduced ejection fraction): Code(s): I50.20 - Unspecified systolic (congestive) heart failure Category: Medical Plan: Heart failure with reduced ejection fraction with severe LV systolic dysfunction with only moderate mitral regurgitation, see below. Patient clinically appears to be fluid overloaded and quite symptomatic. She has not responding to bumetanide therapy with symptoms suggestive of right heart failure. I have advised her to switch to torsemide therapy 40 mg daily. Strict intake and output chart needs to be pursued. She says she has gained about 3 lb despite not eating well and this is most suggestive of heart failure. Advise that if her symptoms get worse or she has more weight gain she should come to the emergency room for IV diuresis. This was discussed with her. Meanwhile given her advanced renal phone dysfunction will continue with hydralazine therapy and add Isordil therapy for vasodilators therapy. Also add Farxiga 5 mg to her regimen to see if this will also help with overall heart failure syndrome. Discussed with her overall poor prognosis and she has multiple comorbidities including advanced age, advanced kidney disease as well as significant anemia, mitral regurgitation that makes overall heart failure management difficult. This was discussed with her. Goals of therapy were discussed. Continue carvedilol therapy. (2) Mitral regurgitation: Code(s): I34.0 - Nonrheumatic mitral (valve) insufficiency Category: Medical Plan: Mitral regurgitation which appeared by transthoracic echo and by cardiac catheterization to be more severe. Although transesophageal echocardiogram shows more moderate mitral regurgitation. This could be more hemodynamic mitral regurgitation related to decongestive therapy and change in ventricular load with sedation. At this point time not a target for intervention given his only moderate mitral regurgitation. Will continue monitor clinically. (3) CAD (coronary artery disease): Comment: Cardiac catheterization, August 2023 showed critical RCA stenosis 95%, status post drug-eluting stent, 70% circumflex stenosis Code(s): I25.10 - Atherosclerotic heart disease of [place] coronary artery without angina pectoris Category: Medical Plan: CAD with patent stents. Not likely cause for her progressive cardiomyopathy process. Not on any antiplatelet regimen due to significant anemia. Continue blood pressure control which is currently well optimized. Should be on statin therapy with target goal LDL less than 70 mg/dL. Overall prognosis is guarded. Will follow up in the clinic in 2 weeks time, sooner PRN. Thank you for allowing me to partake in his care. Medications: New torsemide 40 mg (2 x 20 mg) PO DAILY 80 tabs 0RF dapagliflozin propanediol (Farxiga) 5 mg PO DAILY 30 tabs 5RF isosorbide dinitrate (Isordil Titradose) allow nitrate-free interval of 12-14 hrs per 24-hr period 5 mg PO BID 60 tabs 2RF Discontinued bumetanide Take 2 tablets, Saturday, Saturday and Saturday and 1 tablets on other day. Additional 1 mg as needed Discontinued Reason: Doctor's Order 1 mg PO DAILY 90 days 180 tabs 1RF shortness of breath Coding Level of Care Code Est Pt Level 4 (25489) Diagnoses HFrEF (heart failure with reduced ejection fraction) I50.20 Mitral regurgitation I34.0 CAD (coronary artery disease) I25.10
--- OUTSIDE RECORDS SUMMARY | 2025-04-08 17:38 | XMS_ITS | Clinical Summary ---
Author Organization [address] Address [address] [place] [address] Phone Care Team Providers Care Contract Negotiation Manager Name Role Phone FabriceJohn solares Primary Care Provider [phone] Social History Tobacco Use Types Packs/Day Years [...] Essential (primary) hypertension Atherosclerotic heart disease of [place] coronary artery without angina pectoris Anemia, unspecified [...] Resu lt [facility] [address] [place] [address], from Last 3 Months or Most Recently Relevant to Health Maintenance Insurance MEDICARE [employer] MED[employer]ARE Care Teams Contract Negotiation Manager Relationship Specialty Start Date End Date John Avina DO [address] [place] [phone] PCP - General Internal Medicine 06/10/24
--- OUTSIDE RECORDS SUMMARY | 2025-04-08 17:38 | XMS_ITS | Encounter Summary ---
Author Organization [employer] Address [address] [place] [address] Care Team Providers Care Director Strategic Account Management Name Role Phone John Avina DO Primary Care Provider [phone] Encounter Details Date Type Department Care Team (Late st Contact Info) Description 09/02/2024 Lab Requisition [facility] - Main Lab [address] [facility] [place] [address] Lincoln Crespo MD [address] [place] [address] Essential (primary) hypertension; Atherosclerotic heart disease of [place] coronary artery without angina pectoris; Anemia, unspecified; [...] (primary) hypertension Atherosclerotic heart disease of [place] coronary artery without angina pectoris Anemia, unspecified Chronic kidney disease, unspecified BASIC METABOLIC PANEL Routine 09/03/2024 7:35 AM EDT Essential (primary) hypertension Atherosclerotic heart disease of [place] coronary artery without angina pectoris Anemia, unspecified Chronic kidney disease, unspecified documented in this encounter Results * (ABNORMAL) Basic metabolic panel (09/03/2024 7:35 AM EDT) Sodium 142 133 - 145 mmol/L LAB CHEMISTRY METHOD 09/03/2024 9:20 AM [facility] Potassium 4.0 3.5 - 5.5 mmol/L LAB CHEMISTRY METHOD 09/03/2024 9:20 AM [facility] [place] 112(H) 96 - 110 mmol/L LAB CHEMISTRY METHOD 09/03/2024 9:20 AM [facility] CO2 22 21 - 32 mmol/L LAB CHEMISTRY METHOD 09/03/2024 9:20 AM [facility] Anion Gap 8 3 - 11 LAB CHEMISTRY METHOD 09/03/2024 9:20 AM [facility] Glucose 90 70 - 100 mg/dL LAB CHEMISTRY METHOD 09/03/2024 9:20 AM [facility] BUN 48(H) 5 - 25 mg/dL LAB CHEMISTRY METHOD 09/03/2024 9:20 AM [facility] Creatinine 1.72(H) 0.50 - 1.10 mg/dL LAB CHEMISTRY METHOD 09/03/2024 9:20 AM [facility] eGFR 30(L) >=60 mL/min/1. 73m2 LAB CHEMISTRY METHOD 09/03/2024 9:20 AM [facility] Comment:Calculation based on the Chronic Kidney Disease Epidemiology Collaboration (CKD-EPI) equation refit without adjustment for race. BUN/Creatinine Ratio 27.9 LAB CHEMISTRY METHOD 09/03/2024 9:20 AM [facility] Calcium 9.3 8.5 - 10.5 mg/dL LAB CHEMISTRY METHOD 09/03/2024 9:20 AM [facility] Blood Venous blood specimen / Unknown Venipuncture / Unknown 09/03/2024 7:35 AM EDT 09/03/2024 8:28 AM EDT us Lincoln Crespo MD LAB BLOOD ORDERABLES Final Resu lt [facility] [address] [place] [address], * (ABNORMAL) Complete blood count (09/03/2024 7:35 AM EDT) [facility] Signature WBC 4.5(L) 4.8 - 10.8 K/mcL LAB HEMETOLOGY METHOD 09/03/2024 8:46 AM EDT [facility] RBC 2.60(L) 3.80 - 4.80 M/mcL LAB HEMETOLOGY METHOD 09/03/2024 8:46 AM EDT [facility] Hemoglobin 8.8(L) 11.5 - 16.0 g/dL LAB HEMETOLOGY METHOD 09/03/2024 8:46 AM [facility] Hematocrit 27.0(L) 35.0 - 47.0 % LAB HEMETOLOGY [facility]03[facility]24 [facility] MCV 105.1(H) 79.0 - 98.0 FL LAB HEMETOLOGY METHOD 09/03/2024 8[facility] MCH 34.2(H) 27.0 - 32.0 pcg LAB HEMETOLOGY METHOD 09/03/2024 8:46 AM [facility] MCHC 32.6 32.0 - 37.0 g/dL LAB HEMETOLOGY METHOD 09/03/2024 8:[facility] RDW 19.1(H) 11.0 - 15.0 % LAB HEMETOLOGY METHOD 09/03/2024 8:46 AM EDT [facility] Platelets 200 130 - 400 K/mcL LAB HEMETOLOGY METHOD 09/03/2024 8:46 AM EDT [facility] MPV 9.2 7.0 - 11.0 FL LAB HEMETOLOGY METHOD 09/03/2024 8:46 AM EDT [facility] NRBC 0.0 <1.0 % LAB HEMETOLOGY METHOD 09/03/2024 8:46 AM EDT [facility] NRBC Absolute 0.00 <0.10 K/mcL LAB HEMETOLOGY METHOD 09/03/2024 8:46 AM EDT [facility] Blood Venous blood specimen / Unknown Venipuncture / Unknown 09/03/2024 7:35 AM EDT 09/03/2024 8:28 AM EDT us Lincoln Crespo MD LAB BLOOD ORDERABLES Final Resu lt [facility] ([facility]) [facility] [address] [place] [address], documented in this encounter Visit Diagnoses Diagnosis Essential (primary) hypertension Unspecified essential hypertension Atherosclerotic heart disease of [place] coronary artery without angina pectoris Anemia, unspecified Chronic kidney disease, unspecified documented in this encounter Care Teams Director Strategic Account Management Relationship Specialty Start Date End Date John Avina DO [address] [place] [phone] PCP - General Internal Medicine 06/10/24 documented as of this encounter
--- OUTSIDE RECORDS SUMMARY | 2025-04-08 17:38 | XMS_ITS | Encounter Summary ---
Author Organization [facility] Address [address] [place] [address] Care Team Providers Care Security System Installer Name Role Phone John Avina DO Primary Care Provider [phone] Encounter Details Date Type Department Care Team (Late st Contact Info) Description 08/17/2024 Lab Requisition [facility] - Main Lab [address] [facility] [place] [address] Lincoln Crespo MD [address] [place] [address] Other ulcerative colitis with rectal [...] AM EDT) WBC 7.1 4.8 - 10.8 K/[facility] LAB HEMETOLOGY METHOD 08/18/2024 11:09 AM EDT [facility] RBC 2.80(L) 3.80 - 4.80 M/[facility] LAB HEMETOLOGY METHOD 08/18/2024 11:09 AM [facility] Hemoglobin 9.2(L) 11.5 - 16.0 g/dL LAB HEMETOLOGY METHOD 08/18/2024 11:09 AM [facility] Hematocrit 28.6(L) 35.0 - 47.0 % LAB HEMETOLOGY METHOD 08/18/2024 11:09 AM [facility] MCV 103.6(H) 79.0 - 98.0 FL LAB HEMETOLOGY METHOD 08/18/2024 11:09 AM [facility] MCH 33.3(H) 27.0 - 32.0 pcg LAB HEMETOLOGY METHOD 08/18/2024 11:09 AM [facility] MCHC 32.2 32.0 - 37.0 g/dL LAB HEMETOLOGY METHOD 08/18/2024 11:09 AM [facility] RDW 18.5(H) 11.0 - 15.0 % LAB HEMETOLOGY METHOD 08/18/2024 11:09 AM [facility] Platelets 216 130 - 400 K/mcL LAB HEMETOLOGY METHOD 08/18/2024 11:09 AM [facility] MPV 9.2 7.0 - 11.0 FL LAB HEMETOLOGY METHOD 08/18/2024 11:09 AM [facility] NRBC 0.0 <1.0 % LAB HEMETOLOGY METHOD 08/18/2024 11:09 AM [facility] NRBC Absolute 0.00 <0.10 K/mcL LAB HEMETOLOGY METHOD 08/18/2024 11:09 AM [facility] Blood Venous blood specimen / Unknown Venipuncture / Unknown 08/18/2024 4:57 AM EDT 08/18/2024 10:57 AM EDT Lincoln Crespo MD LAB BLOOD ORDERABLES [facility] LAB [address] [place] [address], documented in this encounter Visit Diagnoses Diagnosis Other ulcerative colitis with rectal bleeding (CMS/HCC V24, CMS/HCC V28) Anemia in chronic kidney disease (CODE) documented in this encounter Care Teams Security System Installer Relationship Specialty Start Date End Date John Avina DO [address] [place] [phone] PCP - General Internal Medicine 06/10/24 documented as of this encounter
--- OUTSIDE RECORDS SUMMARY | 2025-04-08 17:38 | XMS_ITS | Encounter Summary ---
Author Organization [employer] Address [address] [place] [address] Care Team Providers Care Oral Communication Instructor Name Role Phone John Avina DO Primary Care Provider [phone] Encounter Details Date Type Department Care Team (Late st Contact Info) Description 08/14/2024 Lab Requisition [facility] - Main Lab 299 [facility] [place] [address] Lincoln Crespo MD [address] [place] [address] Essential (primary) hypertension; Atherosclerotic heart disease of [place] coronary artery without angina pectoris; Anemia, unspecified [...] Essential (primary) hypertension Atherosclerotic heart disease of [place] coronary artery without angina pectoris Anemia, unspecified COMPREHENSIVE METABOLIC PANEL Routine 08/17/2024 5:41 AM EDT Essential (primary) hypertension Atherosclerotic heart disease of [place] coronary artery without angina pectoris Anemia, unspecified documented in this encounter Results * (ABNORMAL) Comprehensive metabolic panel (08/17/2024 5:41 AM EDT) Sodium 141 133 - 145 mmol/L LAB CHEMISTRY METHOD 08/17/2024 1:27 PM EDT [facility] Potassium 3.8 3.5 - 5.5 mmol/L LAB CHEMISTRY METHOD 08/17/2024 1:[address] [facility] Chloride 108 96 - 110 mmol/L LAB CHEMISTRY METHOD 08/17/2024 1:[address] [facility] CO2 23 21 - 32 mmol/L LAB CHEMISTRY METHOD 08/17/2024 1:[address] [facility] Anion Gap 10 3 - 11 LAB CHEMISTRY METHOD 08/17/2024 1:[address] [facility] Glucose 69(L) 70 - 100 mg/dL LAB CHEMISTRY METHOD 08/17/2024 1:[address] [facility] BUN 34(H) 5 - 25 mg/dL LAB CHEMISTRY METHOD 08/17/2024 1:[address] [facility] Creatinine 1.53(H) 0.50 - 1.10 mg/dL LAB CHEMISTRY METHOD 08/17/2024 1:[address] [facility] eGFR 35(L) >=60 mL/min/1. 73m2 LAB CHEMISTRY METHOD 08/17/2024 1:[address] [facility] Comment:Calculation based on the Chronic Kidney Disease Epidemiology Collaboration (CKD-EPI) equation refit without adjustment for race. BUN/Creatinine Ratio 22.2 LAB CHEMISTRY METHOD 08/17/2024 1:[address] [facility] Calcium 8.7 8.5 - 10.5 mg/dL LAB CHEMISTRY METHOD 08/17/2024 1:[address] [facility] AST (SGOT) 9(L) 10 - 42 unit/L LAB CHEMISTRY METHOD 08/17/2024 1:[address] [facility] ALT (SGPT) 8(L) 10 - 60 unit/L LAB CHEMISTRY METHOD 08/17/2024 1:[address] [facility] Alkaline Phosphatase 67 42 - 121 unit/L LAB CHEMISTRY METHOD 08/17/2024 1:[address] [facility] Total Protein 5.5(L) 6.0 - 8.0 g/dL LAB CHEMISTRY METHOD 08/17/2024 1:27 PM EDT [facility] Albumin 2.4(L) 3.2 - 5.0 g/dL LAB CHEMISTRY METHOD 08/17/2024 1:27 PM EDT [facility] Total Bilirubin 0.4 0.0 - 1.4 mg/dL LAB CHEMISTRY METHOD 08/17/2024 1:27 PM EDT [facility] Blood Venous blood specimen / Unknown Venipuncture / Unknown 08/17/2024 5:41 AM EDT 08/17/2024 10:15 AM EDT us Lincoln Crespo MD LAB BLOOD ORDERABLES Final Resu lt [facility] [address] [place] [address], * (ABNORMAL) Complete blood count (08/17/2024 5:41 AM EDT) WBC 7.2 4.8 - 10.8 K/mcL LAB HEMETOLOGY METHOD 08/17/2024 11:[address] [facility] RBC 2.90(L) 3.80 - 4.80 M/mcL LAB HEMETOLOGY METHOD 08/17/2024 11:28 AM EDT [facility] Hemoglobin 9.6(L) 11.5 - 16.0 g/dL LAB HEMETOLOGY METHOD 08/17/2024 11:28 AM EDT [facility] Hematocrit 29.9(L) 35.0 - 47.0 % [facility] MCV 103.5(H) 79.0 - 98.0 FL LAB HEMETOLOGY METHOD 08/17/2024 11:28 AM EDT [facility] MCH 33.2(H) 27.0 - 32.0 pcg LAB HEMETOLOGY METHOD 08/17/2024 11:[address] [facility] MCHC 32.1 32.0 - 37.0 g/dL LAB HEMETOLOGY METHOD 08/17/2024 11:[address] [facility] RDW 18.2(H) 11.0 - 15.0 % LAB HEMETOLOGY METHOD 08/17/2024 11:[address] [facility] Platelets 215 130 - 400 K/mcL LAB HEMETOLOGY METHOD 08/17/2024 11:[address] [facility] MPV 9.2 7.0 - 11.0 FL LAB HEMETOLOGY METHOD 08/17/2024 11:[address] [facility] NRBC 0.0 <1.0 % LAB HEMETOLOGY METHOD 08/17/2024 11:[address] [facility] NRBC Absolute 0.00 <0.10 K/mcL LAB HEMETOLOGY METHOD 08/17/2024 11:[address] [facility] Blood Venous blood specimen / Unknown Venipuncture / Unknown 08/17/2024 5:41 AM EDT 08/17/2024 10:15 AM EDT us Lincoln Crespo MD LAB BLOOD ORDERABLES Final Resu lt [facility] [address] [place] [address], documented in this encounter Visit Diagnoses Diagnosis Essential (primary) hypertension Unspecified essential hypertension Atherosclerotic heart disease of [place] coronary artery without angina pectoris Anemia, unspecified documented in this encounter Care Teams Oral Communication Instructor Relationship Specialty Start Date End Date John Avina DO [address] [place] [phone] PCP - General Internal Medicine 06/10/24 documented as of this encounter
--- OUTSIDE RECORDS SUMMARY | 2025-04-08 17:38 | XMS_ITS | Encounter Summary ---
Author Organization [facility] Address [address] [place] [address] Care Team Providers Care Health And Safety Coordinator Name Role Phone John Avina DO Primary Care Provider [phone] Encounter Details Date Type Department Care Team (Late st Contact Info) Description 08/26/2024 Lab Requisition [facility] - Main Lab 299 [facility] [place] [address] Lincoln Crespo MD [address] [place] [address] Essential (primary) hypertension; Atherosclerotic heart disease of [place] coronary artery without angina pectoris; Anemia, unspecified; [...] Essential (primary) hypertension Atherosclerotic heart disease of [place] coronary artery without angina pectoris Anemia, unspecified Chronic kidney disease, unspecified BASIC METABOLIC PANEL Routine 08/27/2024 5:31 AM EDT Essential (primary) hypertension Atherosclerotic heart disease of [place] coronary artery without angina pectoris Anemia, [...] Resu lt [facility] [address] [place] [address], * (ABNORMAL) Complete blood count (08/27/2024 5:31 AM EDT) [facility] WBC 5.4 4.8 - 10.8 K/mcL LAB HEMETOLOGY [facility] RBC 2.70(L) 3.80 - 4.80 [...] LAB HEMETOLOGY METHOD 08/27/2024 9:02 AM EDT [facility] NRBC Absolute 0.00 <0.10 K/mcL LAB HEMETOLOGY METHOD 08/27/2024 9:02 AM EDT [facility] Blood Venous blood specimen / Unknown Venipuncture / Unknown 08/27/2024 5:31 AM EDT 08/27/2024 8:51 AM EDT us Lincoln Crespo MD LAB BLOOD ORDERABLES Final Resu lt [facility] [address] [place] [address], documented in this encounter Visit Diagnoses Diagnosis Essential (primary) hypertension Unspecified essential hypertension Atherosclerotic heart disease of [place] coronary artery without angina pectoris Anemia, unspecified Chronic kidney disease, unspecified documented in this encounter Care Teams Health And Safety Coordinator Relationship Specialty Start Date End Date John Avina DO [address] [place] [phone] PCP - General Internal Medicine 06/10/24 documented as of this encounter
--- OUTSIDE RECORDS SUMMARY | 2025-04-08 17:38 | XMS_ITS | Encounter Summary ---
Author Organization [employer] Address [address] [place] [address] Care Team Providers Care Insights Analyst Name Role Phone John Avina DO Primary Care Provider [phone] Encounter Details Date Type Department Care Team (Late st Contact Info) Description 08/22/2024 Lab Requisition [facility] - Main Lab 299 [facility] [place] [address] Lincoln Crespo MD [address] [place] [address] Essential (primary) hypertension; Atherosclerotic heart disease of [place] coronary artery without angina pectoris; Anemia, unspecified [...] Essential (primary) hypertension Atherosclerotic heart disease of [place] coronary artery without angina pectoris Anemia, unspecified COMPREHENSIVE METABOLIC PANEL Routine 08/24/2024 5:46 AM EDT Essential (primary) hypertension Atherosclerotic heart disease of [place] coronary artery without angina pectoris Anemia, unspecified documented in this encounter Results * (ABNORMAL) Comprehensive metabolic panel (08/24/2024 5:46 AM EDT) Sodium 144 133 - 145 mmol/L LAB CHEMISTRY METHOD 08/24/2024 9:15 AM EDT [facility] Potassium 4.0 3.5 - 5.5 [...] LAB CHEMISTRY METHOD 08/24/2024 9:15 AM EDT [facility] Albumin 2.8(L) 3.2 - 5.0 g/dL LAB CHEMISTRY METHOD 08/24/2024 9:15 AM EDT [facility] Total Bilirubin 0.3 0.0 - 1.4 mg/dL LAB CHEMISTRY METHOD 08/24/2024 9:15 AM EDT [facility] Blood Venous blood specimen / Unknown Venipuncture / Unknown 08/24/2024 5:46 AM EDT 08/24/2024 8:26 AM EDT us Lincoln Crespo MD LAB BLOOD ORDERABLES Final Resu lt [facility] [address] [place] [address], [place] [phone] * (ABNORMAL) Complete blood count (08/24/2024 5:46 AM EDT) WBC 6.8 4.8 - 10.8 K/mcL LAB HEMETOLOGY METHOD 08/24/2024 8:45 AM [facility] RBC 2.50(L) 3.80 - 4.80 M/mcL LAB HEMETOLOGY METHOD 08/24/2024 8:45 AM [facility] Hemoglobin 8.6(L) 11.5 - 16.0 g/dL LAB HEMETOLOGY METHOD 08/24/2024 8:45 AM T [facility] Hematocrit 26.2(L) 35.0 - 47.0 % LAB HEMETOLOGY METHOD 08/24/2024 8:45 AM [facility] MCV 103.6(H) 79.0 - 98.0 FL LAB HEMETOLOGY METHOD 08/24/2024 8:45 AM EDT [facility] MCH 34.0(H) 27.0 - 32.0 pcg LAB HEMETOLOGY METHOD 08/24/2024 8:45 AM EDT [facility] MCHC 32.8 32.0 - 37.0 g/dL LAB HEMETOLOGY METHOD 08/24/2024 8:45 AM EDT [facility] RDW 18.7(H) 11.0 - 15.0 % LAB HEMETOLOGY METHOD 08/24/2024 8:45 AM EDT [facility] Platelets 192 130 - 400 K/mcL LAB HEMETOLOGY METHOD 08/24/2024 8:45 AM EDT [facility] MPV 9.3 7.0 - 11.0 FL LAB HEMETOLOGY METHOD 08/24/2024 8:45 AM EDT [facility] NRBC 0.0 <1.0 % LAB HEMETOLOGY METHOD 08/24/2024 8:45 AM EDT [facility] NRBC Absolute 0.00 <0.10 K/mcL LAB HEMETOLOGY METHOD 08/24/2024 8:45 AM EDT [facility] Blood Venous blood specimen / Unknown Venipuncture / Unknown 08/24/2024 5:46 AM EDT 08/24/2024 8:32 AM EDT us Lincoln Crespo MD LAB BLOOD ORDERABLES Final Resu lt [facility] [address] [place] [address], [place] [phone] documented in this encounter Visit Diagnoses Diagnosis Essential (primary) hypertension Unspecified essential hypertension Atherosclerotic heart disease of [place] coronary artery without angina pectoris Anemia, unspecified documented in this encounter Care Teams Insights Analyst Relationship Specialty Start Date End Date John Avina DO [address] [place] [phone] PCP - General Internal Medicine 06/10/24 documented as of this encounter
--- OUTSIDE RECORDS SUMMARY | 2025-04-08 17:38 | XMS_ITS | Encounter Summary ---
Author Organization [employer] Address [address] [place] [address] Care Team Providers Care Doctor Naturopathic Name Role Phone John Avina DO Primary Care Provider [phone] Encounter Details Date Type Department Care Team (Late st Contact Info) Description 09/05/2024 Lab Requisition [facility] - Main Lab 299 [facility] [place] [address] Lincoln Crespo MD [address] [place] [address] Essential (primary) hypertension; Atherosclerotic heart disease of [place] coronary artery without angina pectoris; Anemia, unspecified [...] Essential (primary) hypertension Atherosclerotic heart disease of [place] coronary artery without angina pectoris Anemia, unspecified COMPREHENSIVE METABOLIC PANEL Routine 09/07/2024 5:11 AM EDT Essential (primary) hypertension Atherosclerotic heart disease of [place] coronary artery without angina pectoris Anemia, unspecified documented in this encounter Results * (ABNORMAL) Comprehensive metabolic panel (09/07/2024 5:11 AM EDT) Sodium 144 133 - 145 mmol/L LAB CHEMISTRY METHOD 09/07/2024 2:49 PM EDT [facility] Potassium 3.9 3.5 - 5.5 mmol/L LAB CHEMISTRY METHOD 09/07/2024 2:49 PM [facility] Chloride 109 96 - 110 mmol/L LAB CHEMISTRY METHOD 09/07/2024 2:49 PM [facility] CO2 23 21 - 32 mmol/L LAB CHEMISTRY METHOD 09/07/2024 2:49 PM [facility] Anion Gap 12(H) 3 - 11 LAB CHEMISTRY METHOD 09/07/2024 2:49 PM [facility] Glucose 77 70 - 100 mg/dL LAB CHEMISTRY METHOD 09/07/2024 2:49 PM [facility] BUN 48(H) 5 - 25 mg/dL LAB CHEMISTRY METHOD 09/07/2024 2:49 PM [facility] Creatinine 1.93(H) 0.50 - 1.10 mg/dL LAB CHEMISTRY METHOD 09/07/2024 2:49 PM [facility] eGFR 26(L) >=60 mL/min/1. 73m2 LAB CHEMISTRY METHOD 09/07/2024 2:49 PM [facility] Comment:Calculation based on the Chronic Kidney Disease Epidemiology Collaboration (CKD-EPI) equation refit without adjustment for race. BUN/Creatinine Ratio 24.9 LAB CHEMISTRY METHOD 09/07/2024 2:49 PM [facility] Calcium 8.9 8.5 - 10.5 mg/dL LAB CHEMISTRY METHOD 09/07/2024 2:49 PM [facility] AST (SGOT) 6(L) 10 - 42 unit/L LAB CHEMISTRY METHOD 09/07/2024 2:49 PM [facility] ALT (SGPT) 14 10 - 60 unit/L LAB CHEMISTRY METHOD 09/07/2024 2:49 PM [facility] Alkaline Phosphatase 61 42 - 121 unit/L LAB CHEMISTRY METHOD 09/07/2024 2:49 PM [facility] Total Protein 6.1 6.0 - 8.0 g/dL LAB CHEMISTRY METHOD 09/07/2024 2:49 PM EDT [facility] Albumin 3.0(L) 3.2 - 5.0 g/dL LAB CHEMISTRY METHOD 09/07/2024 2:49 PM EDT [facility] Total Bilirubin 0.5 0.0 - 1.4 mg/dL LAB CHEMISTRY METHOD 09/07/2024 2:49 PM EDT [facility] Blood Venous blood specimen / Unknown Venipuncture / Unknown 09/07/2024 5:11 AM EDT 09/07/2024 2:11 PM EDT us Lincoln Crespo MD LAB BLOOD ORDERABLES Final Resu lt [facility] [address] [place] [address], [place] [phone] * (ABNORMAL) Complete blood count (09/07/2024 5:11 AM EDT) WBC 5.1 4.8 - 10.8 K/mcL LAB HEMETOLOGY METHOD 09/07/2024 3:07 PM EDT [facility] RBC 2.40(L) 3.80 - 4.80 M/mcL LAB HEMETOLOGY METHOD 09/07/2024 3:07 PM EDT [facility] Hemoglobin 8.2(L) 11.5 - 16.0 g/dL LAB HEMETOLOGY METHOD 09/07/2024 3:07 PM EDT [facility] Hematocrit 25.9(L) 35.0 - 47.0 % LAB HEMETOLOGY METHOD 09/07/2024 3:07 PM EDT [facility] MCV 107.9(H) 79.0 - 98.0 FL LAB HEMETOLOGY METHOD 09/07/2024 3:07 PM EDT [facility] MCH 34.2(H) 27.0 - 32.0 pcg LAB HEMETOLOGY METHOD 09/07/2024 3:07 PM EDT [facility] MCHC 31.7(L) 32.0 - 37.0 g/dL LAB HEMETOLOGY METHOD 09/07/2024 3:07 PM EDT [facility] RDW 19.3(H) 11.0 - 15.0 % LAB HEMETOLOGY METHOD 09/07/2024 3:07 PM EDT [facility] Platelets 176 130 - 400 K/mcL LAB HEMETOLOGY METHOD 09/07/2024 3:07 PM EDT [facility] MPV 9.0 7.0 - 11.0 FL LAB HEMETOLOGY METHOD 09/07/2024 3:07 PM EDT [facility] NRBC 0.0 <1.0 % LAB HEMETOLOGY METHOD 09/07/2024 3:07 PM EDT [facility] NRBC Absolute 0.00 <0.10 K/mcL LAB HEMETOLOGY METHOD 09/07/2024 3:07 PM EDT [facility] Blood Venous blood specimen / Unknown Venipuncture / Unknown 09/07/2024 5:11 AM EDT 09/07/2024 12:03 PM EDT us Lincoln Crespo MD LAB BLOOD ORDERABLES Final Resu lt [facility] [address] [place] [address], [place] [phone] documented in this encounter Visit Diagnoses Diagnosis Essential (primary) hypertension Unspecified essential hypertension Atherosclerotic heart disease of [place] coronary artery without angina pectoris Anemia, unspecified documented in this encounter Care Teams Doctor Naturopathic Relationship Specialty Start Date End Date John Avina DO [address] [place] [phone] PCP - General Internal Medicine 06/10/24 documented as of this encounter
--- OUTSIDE RECORDS SUMMARY | 2025-04-08 17:38 | XMS_ITS | Encounter Summary ---
Author Organization [employer] Address [address] [place] [phone] Care Team Providers Care Orthodontist Small Business Owner Name Role Phone John Avina DO Primary Care Provider Encounter Details Date Type Department Care Team (Late st Contact Info) Description 09/18/[address] [facility] - Main Lab [address] [facility] [place] [address] Lincoln Crespo MD [address] [place] [address] Essential (primary) hypertension; Atherosclerotic heart disease of [place] coronary artery without angina pectoris; Anemia, unspecified [...] unspecified documented in this encounter Care Teams Orthodontist Small Business Owner Relationship Specialty Start Date End Date John Avina DO [address] [place] [phone] PCP - General Internal Medicine 06/10/24 documented as of this encounter
--- OUTSIDE RECORDS SUMMARY | 2025-04-08 17:38 | XMS_ITS | Encounter Summary ---
Author Organization [employer] Address [address] [place] [address] Care Team Providers Care Community Cultural Development Officer Name Role Phone John Avina DO Primary Care Provider [phone] Encounter Details Date Type Department Care Team (Late st Contact Info) Description 09/16/2024 Lab Requisition [facility] - Main Lab 299 [facility] [place] [address] Lincoln Crespo MD [address] [place], [...] Resu lt [facility] [address] [place] [address], * (ABNORMAL) Complete blood count (09/17/2024 8:40 AM EDT) [facility] WBC 6.5 4.8 - 10.8 K/mcL LAB HEMETOLOGY METHOD 09/17/2024 10:[address] [facility] RBC 2.70(L) 3.80 - 4.80 M/mcL LAB HEMETOLOGY METHOD 09/17/2024 10:[address] [facility] Hemoglobin 9.4(L) 11.5 - 16.0 [...] LAB HEMETOLOGY METHOD 09/17/2024 10:[address] [facility] NRBC 0.0 <1.0 % LAB HEMETOLOGY METHOD 09/17/2024 10:[address] [facility] NRBC Absolute 0.00 <0.10 K/mcL LAB HEMETOLOGY METHOD 09/17/2024 10:[address] [facility] Blood Venous blood specimen / Unknown Venipuncture / Unknown 09/17/2024 8:40 AM EDT 09/17/2024 10:05 AM EDT us Lincoln Crespo MD LAB BLOOD ORDERABLES Final Resu lt [facility] [address] [place] [address], documented in this encounter Visit Diagnoses Diagnosis Essential (primary) hypertension Unspecified essential hypertension Atherosclerotic heart disease of [place] coronary artery without angina pectoris Anemia, unspecified Chronic kidney disease, unspecified documented in this encounter Care Teams Community Cultural Development Officer Relationship Specialty Start Date End Date John Avina DO [address] [place] [phone] PCP - General Internal Medicine 06/10/24 documented as of this encounter
--- OUTSIDE RECORDS SUMMARY | 2025-04-08 17:38 | XMS_ITS | Encounter Summary ---
Author Organization [employer] Address [address] [place] [address] Care Team Providers Care Puppet Maker Name Role Phone John Avian DO Primary Care Provider Encounter Details Date Type Department Care Team (Late st Contact Info) Description 08/30/[address] [facility] - Main Lab 299 [facility] [place] [address] Lincoln Crespo MD [address] [place] [address] Essential (primary) hypertension; Atherosclerotic heart disease of [place] coronary artery without angina pectoris; Anemia, unspecified [...] LAB CHEMISTRY METHOD 08/31/2024 1:17 PM EDT [facility] Potassium 4.7 3.5 - 5.5 mmol/L LAB CHEMISTRY METHOD 08/31/2024 1:17 PM [facility] LAB Comment:Hemolysis present Chloride 110 96 - 110 mmol/L LAB CHEMISTRY METHOD 08/31/2024 1:17 PM [facility] LAB CO2 15(L) 21 - 32 mmol/L LAB CHEMISTRY METHOD 08/31/2024 1:17 PM [facility] Anion Gap 16(H) 3 - 11 LAB CHEMISTRY METHOD 08/31/2024 1:17 PM [facility] LAB Glucose 67(L) 70 - 100 mg/dL LAB CHEMISTRY METHOD 08/31/2024 1:17 PM [facility] BUN 49(H) 5 - 25 mg/dL LAB CHEMISTRY METHOD 08/31/2024 1:17 PM [facility] LAB Creatinine 1.99(H) 0.50 - 1.10 mg/dL LAB CHEMISTRY METHOD 08/31/2024 1:17 PM [facility] LAB eGFR 25(L) >=60 mL/min/1. 73m2 LAB CHEMISTRY METHOD 08/31/2024 1:17 PM [facility] LAB Comment:Calculation based on the Chronic Kidney Disease Epidemiology Collaboration (CKD-EPI) equation refit without adjustment for race. BUN/Creatinine Ratio 24.6 LAB CHEMISTRY METHOD 08/31/2024 1:17 PM [facility] Calcium 9.1 8.5 - 10.5 mg/dL LAB CHEMISTRY METHOD 08/31/2024 1:17 PM [facility] AST (SGOT) 14 10 - 42 unit/L LAB CHEMISTRY METHOD 08/31/2024 1:17 PM [facility] ALT (SGPT) 18 10 - 60 unit/L LAB CHEMISTRY METHOD 08/31/2024 1:17 PM [facility] Alkaline Phosphatase 70 42 - 121 unit/L LAB CHEMISTRY METHOD 08/31/2024 1:[address] [facility] Total Protein 6.6 6.0 - 8.0 g/dL LAB CHEMISTRY METHOD 08/31/2024 1:[address] [facility] Albumin 3.1(L) 3.2 - 5.0 g/dL LAB CHEMISTRY METHOD 08/31/2024 1:[address] [facility] Total Bilirubin 0.4 0.0 - 1.4 mg/dL LAB CHEMISTRY METHOD 08/31/2024 1:[address] [facility] Blood Venous blood specimen / Unknown 08/31/2024 5:18 AM EDT 08/31/2024 11:34 AM EDT [facility] LAB - 08/31/2024 1:17 PM EDT Short sample, interpret results with caution us Lincoln Crespo MD LAB BLOOD ORDERABLES Final Resu lt [facility] [address] [place] [address], [place] [phone] * (ABNORMAL) Complete blood count (08/31/2024 5:18 AM EDT) WBC 5.2 4.8 - 10.8 K/mcL LAB HEMETOLOGY METHOD 08/31/2024 1:[address] [facility] RBC 2.50(L) 3.80 - 4.80 M/mcL LAB HEMETOLOGY METHOD 08/31/2024 1:[address] [facility] Hemoglobin 8.6(L) 11.5 - 16.0 g/dL LAB HEMETOLOGY METHOD 08/31/2024 1:[address] [facility] Hematocrit 27.1(L) 35.0 - 47.0 % LAB HEMETOLOGY METHOD 08/31/2024 1:[address] [facility] MCV 106.7(H) 79.0 - 98.0 FL LAB HEMETOLOGY METHOD 08/31/2024 1:[address] [facility] MCH 33.9(H) 27.0 - 32.0 pcg LAB HEMETOLOGY METHOD 08/31/2024 1:[address] [facility] MCHC 31.7(L) 32.0 - 37.0 g/dL LAB HEMETOLOGY METHOD 08/31/2024 1:[address] [facility] RDW 19.2(H) 11.0 - 15.0 % LAB HEMETOLOGY METHOD 08/31/2024 1:[address] [facility] Platelets 223 130 - 400 K/mcL LAB HEMETOLOGY METHOD 08/31/2024 1:[address] [facility] MPV 9.6 7.0 - 11.0 FL LAB HEMETOLOGY METHOD 08/31/2024 1:[address] [facility] NRBC 0.0 <1.0 % LAB HEMETOLOGY METHOD 08/31/2024 1:[address] [facility] NRBC Absolute 0.00 <0.10 K/mcL LAB HEMETOLOGY METHOD 08/31/2024 1:[address] [facility] Blood Venous blood specimen / Unknown 08/31/2024 5:18 AM EDT 08/31/2024 11:31 AM EDT us Lincoln Crespo MD LAB BLOOD ORDERABLES Final Resu lt [facility] [address] [place] [address], documented in this encounter Visit Diagnoses Diagnosis Essential (primary) hypertension Unspecified essential hypertension Atherosclerotic heart disease of [place] coronary artery without angina pectoris Anemia, unspecified documented in this encounter Care Teams Puppet Maker Relationship Specialty Start Date End Date John Avina DO [address] [place] [phone] PCP - General Internal Medicine 06/10/24 documented as of this encounter
--- OUTSIDE RECORDS SUMMARY | 2025-04-08 17:38 | XMS_ITS | Clinical Summary ---
Author Organization [facility] Address [address] [facility] [address] [place] [address] Phone Care Team Providers Care Director Of Strategic Partnerships Name Role Phone Aniceto Emery MD Primary Care Provider [phone] Juliann Tse MD Unavailable [phone] Henrry Espino MD Unavailable [phone] Allergies Active Allergy Reactions Criticality Noted Date [...] Former Cigarettes 1 23 1 [phone] Education Answer Date Recorded Are you interested [...] EST) SODIUM 138 135 - 145 mmol/L [facility] LIC# [id number] POTASSIUM 3.8 3.5 - 5.0 mmol/L [facility] LIC# [id number] CHLORIDE 104 98 - 108 mmol/L [facility] LIC# [id number] CO2 27 23 - 32 mmol/L [facility] LIC# [id number] BUN 28(H) 9 - 25 mg/dL [facility] LIC# [id number] CREATININE 1.26 0.7 - 1.3 mg/dL [facility] LIC# [id number] GLUCOSE 143(H) 70 - 100 mg/dL [facility] LIC# [id number] ALBUMIN 4.3 3.7 - 5.4 g/dL [facility] LIC# [id number] TOTAL PROTEIN 7.4 6.0 - 8.0 g/dL [facility] LIC# [id number] CALCIUM 9.8 8.8 - 10.5 mg/dL [facility] LIC# [id number] ALKALINE PHOSPHATASE 82 36 - 118 U/L [facility] LIC# [id number] TOTAL BILIRUBIN 0.5 0.2 - 1.2 mg/dL [facility] LIC# [id number] AST 15 9 - 30 U/L [facility] LIC# [id number] ALT 16 7 - 52 U/L [facility] LIC# [id number] GLOBULIN 3.1 2.3 - 4.2 g/dL [facility] LIC# [id number] EGFR 42 mL/min/1.7 3m2 [facility] LIC# [id number] Comment:Abnormal if <60 mL/m in/1.73m2. If patient is -[place], multiply the result by 1.21. ANION GAP 7 5 - 17 mmol/L [facility] LIC# [id number] 06/04/2016 4:11 PM EST 06/04/2016 4:19 PM EST us Henrry Espino MD LAB BLOOD BKR ORDERABLES Fi nal Result [facility] LIC# [id number] [address] [place] [address] from Last 3 Months or Most Recently Relevant to Health Maintenance Insurance [place] [address] [address] [place] [address] [address] [place] [address] [address] [place] [address] [place] [address] [place] [address] [place] [place] [address] PPO [facility] PPO Advance Directives For more information, please contact: [phone] (9AM - 5PM [facility], Saturday-Saturday) Documents on File Type Date Recorded Patient Parking Meter Attendant Expl anation Healthcare Proxy 06/04/2016 3:21 PM HCP Care Teams Director Of Strategic Partnerships Relationship Specialty Start Date End Date Aniceto Emery MD PCP - General Internal Medicine 04/25/16 Henrry Espino MD [address] [place] [address] Multiple Myeloma [place] [address] [email or web address] PCP - Hematology/Oncology Medical Oncology 06/06/16 Juliann Tse MD [address] [place] [phone] [email or web address] Referring Physician Hematology and Oncology 04/25/16 Additional Source Comments The information contained in this document represents components of the legal health record. It is not the complete legal health record.[facility]
--- OUTSIDE RECORDS SUMMARY | 2025-04-08 17:38 | XMS_ITS | Encounter Summary ---
Author Organization [employer] Address [address] [place] [address] Care Team Providers Care Tar Heater Name Role Phone John Avina DO Primary Care Provider [phone] Encounter Details Date Type Department Care Team (Late st Contact Info) Description 09/09/[address] [facility] - Main Lab 299 [facility] [place] [address] Lincoln Crespo MD [address] [place] [address] Essential (primary) hypertension; Atherosclerotic heart disease of [place] coronary artery without angina pectoris; Anemia, unspecified; [...] Essential (primary) hypertension Atherosclerotic heart disease of [place] coronary artery without angina pectoris Anemia, unspecified Chronic kidney disease, unspecified BASIC METABOLIC PANEL Routine 09/10/2024 6:12 AM EDT Essential (primary) hypertension Atherosclerotic heart disease of [place] coronary artery without angina pectoris Anemia, unspecified [...] lt [facility] [address] [place] [address], * (ABNORMAL) Complete blood count (09/10/2024 6:12 AM EDT) [facility] WBC 5.2 4.8 - 10.8 K/mcL [...] MD LAB BLOOD ORDERABLES Final Resu lt [facility] ([facility]) [facility] [address] [place] [address], documented in this encounter Visit Diagnoses Diagnosis Essential (primary) hypertension Unspecified essential hypertension Atherosclerotic heart disease of [place] coronary artery without angina pectoris Anemia, unspecified Chronic kidney disease, unspecified documented in this encounter Care Teams Tar Heater Relationship Specialty Start Date End Date John Avina DO [address] [place] [phone] PCP - General Internal Medicine 06/10/24 documented as of this encounter
--- OUTSIDE RECORDS SUMMARY | 2025-04-08 17:38 | XMS_ITS | Encounter Summary ---
Author Organization [employer] [facility] Address [address] [place] [address] Care Team Providers Care Take Away Worker Name Role Phone John Avina DO Primary Care Provider [phone] Encounter Details Date Type Department Care Team (Late st Contact Info) Description 08/15/2024 Lab Requisition [facility] - Main Lab 299 [facility] [place] [address] Lincoln Crespo MD [address] [place] [address] Other ulcerative colitis with rectal [...] AM EDT) WBC 6.7 4.8 - 10.8 K/[facility] LAB HEMETOLOGY METHOD 08/15/2024 11:29 AM EDT [facility] RBC 3.10(L) 3.80 - 4.80 M/[facility] LAB HEMETOLOGY METHOD 08/15/2024 11:29 AM [facility] LAB Hemoglobin 10.4(L) 11.5 - 16.0 g/dL LAB HEMETOLOGY METHOD 08/15/2024 11:29 AM [facility] LAB Hematocrit 31.4(L) 35.0 - 47.0 % LAB HEMETOLOGY METHOD 08/15/2024 11:29 AM [facility] LAB MCV 100.6(H) 79.0 - 98.0 FL LAB HEMETOLOGY METHOD 08/15/2024 11:29 AM [facility] LAB MCH 33.3(H) 27.0 - 32.0 pcg LAB HEMETOLOGY METHOD 08/15/2024 11:29 AM [facility] LAB MCHC 33.1 32.0 - 37.0 g/dL LAB HEMETOLOGY METHOD 08/15/2024 11:29 AM [facility] LAB RDW 18.6(H) 11.0 - 15.0 % LAB HEMETOLOGY METHOD 08/15/2024 11:29 AM [facility] LAB Platelets 228 130 - 400 K/mcL LAB HEMETOLOGY METHOD 08/15/2024 11:29 AM [facility] LAB MPV 9.4 7.0 - 11.0 FL LAB HEMETOLOGY METHOD 08/15/2024 11:29 AM [facility] LAB NRBC 0.0 <1.0 % LAB HEMETOLOGY METHOD 08/15/2024 11:29 AM [facility] LAB NRBC Absolute 0.00 <0.10 K/mcL LAB HEMETOLOGY METHOD 08/15/2024 11:29 AM [facility] LAB Blood Venous blood specimen / Unknown Venipuncture / Unknown 08/15/2024 9:21 AM EDT 08/15/2024 10:30 AM EDT Lincoln Crespo MD LAB BLOOD ORDERABLES Final Resu lt [facility] H[facility] LAB [address] [place] [address], documented in this encounter Visit Diagnoses Diagnosis Other ulcerative colitis with rectal bleeding (CMS/HCC V24, CMS/HCC V28) Anemia in chronic kidney disease (CODE) documented in this encounter Care Teams Take Away Worker Relationship Specialty Start Date End Date John Avina DO [address] [place] [phone] PCP - General Internal Medicine 06/10/24 documented as of this encounter
--- OUTSIDE RECORDS SUMMARY | 2025-04-08 17:38 | XMS_ITS | Encounter Summary ---
Author Organization [facility] [facility] Address [address] [place] [address] Care Team Providers Care Data Science And Iot Manager Name Role Phone John Avina DO Primary Care Provider [phone] Encounter Details Date Type Department Care Team (Late st Contact Info) Description 06/10/[address] [facility] - Main Lab 299 [facility] [place] [address] Arianna Iraheta PA [address] [place], [place] [phone] Dysuria Social History Tobacco Use Types Packs/Day [...] ssp pneumoniae(A) RIC 06/12/2024 11:01 AM EST [facility] LAB Comment: This [...] MICROBIOLOGY - GENERAL ORD ERABLES Final Result [facility] LAB [address] [place] [address], documented in this encounter Visit Diagnoses Diagnosis Dysuria documented in this encounter Care Teams Data Science And Iot Manager Relationship Specialty Start Date End Date John Avina DO [address] [place] [phone] PCP - General Internal Medicine 06/10/24 documented as of this encounter
--- OUTSIDE RECORDS SUMMARY | 2025-04-08 17:38 | XMS_ITS | Encounter Summary ---
Author Organization [employer] [facility] Address [address] [place] [address] Care Team Providers Care Plant Assigner Name Role Phone John Avina DO Primary Care Provider [phone] Encounter Details Date Type Department Care Team (Late st Contact Info) Description 08/16/2024 Lab Requisition [facility] - Main Lab 299 [facility] [place] [address] Lincoln Crespo MD [address] [place] [address] Other ulcerative colitis with rectal [...] METHOD 08/16/2024 10:41 AM EDT [facility] LAB RBC 2.90(L) 3.80 - 4.80 M/[facility] LAB HEMETOLOGY METHOD 08/16/2024 10:41 AM [facility] [...] MD LAB BLOOD ORDERABLES Final Resu lt [facility] HOSPITAL LAB [address] [place] [address], documented in this encounter Visit Diagnoses Diagnosis Other ulcerative colitis with rectal bleeding (CMS/HCC V24, CMS/HCC V28) Anemia in chronic kidney disease (CODE) documented in this encounter Care Teams Plant Assigner Relationship Specialty Start Date End Date John Avina DO [address] [place] [phone] PCP - General Internal Medicine 06/10/24 documented as of this encounter
--- OUTSIDE RECORDS SUMMARY | 2025-04-08 17:38 | XMS_ITS | Encounter Summary ---
Author Organization [employer] Address [address] [place] [phone] Care Team Providers Care Mold Press Operator Name Role Phone John Avina DO Primary Care Provider [phone] Encounter Details Date Type Department Care Team (Late st Contact Info) Description 08/12/2024 Lab Requisition [facility] - Main Lab 299 [facility] [place] [address] Lincoln Crespo MD [address] [place] [address] Essential (primary) hypertension; Atherosclerotic heart disease of [place] coronary artery without angina pectoris; Anemia, unspecified; [...] Essential (primary) hypertension Atherosclerotic heart disease of [place] coronary artery without angina pectoris Anemia, unspecified Chronic kidney disease, unspecified Hypothyroidism, unspecified Hyperlipidemia, unspecified COMPREHENSIVE METABOLIC PANEL Routine 08/12/2024 4:49 AM EDT Essential (primary) hypertension Atherosclerotic heart disease of [place] coronary artery without angina pectoris Anemia, unspecified [...] LAB CHEMISTRY METHOD 08/12/2024 11:43 AM EDT [facility] Alkaline Phosphatase 65 42 - 121 unit/L LAB CHEMISTRY METHOD 08/12/2024 11:43 AM T [facility] Total Protein 5.5(L) 6.0 - 8.0 g/dL LAB CHEMISTRY METHOD 08/12/2024 11:[address] [facility] Albumin 2.3(L) 3.2 - 5.0 g/dL LAB CHEMISTRY METHOD 08/12/2024 11:43 AM T [facility] Total Bilirubin 0.5 0.0 - 1.4 mg/dL LAB CHEMISTRY METHOD 08/12/2024 11:[address] [facility] Blood Venous blood specimen / Unknown Venipuncture / Unknown 08/12/2024 4:49 AM EDT 08/12/2024 10:25 AM EDT Lincoln Crespo MD LAB BLOOD ORDERABLES Final Resu lt [facility] [address] [place] [address], * (ABNORMAL) Complete blood count (08/12/2024 4:49 [...] LAB HEMETOLOGY METHOD 08/12/2024 11:01 AM EDT [facility] MCV 108.4(H) 79.0 - 98.0 FL LAB HEMETOLOGY METHOD 08/12/2024 11:01 AM EDT [facility] MCH 34.4(H) 27.0 - 32.0 pcg LAB HEMETOLOGY METHOD [facility] M[facility]C 31.8(L) 32.0 - 37.0 g/dL LAB HEMETOLOGY METHOD 08/12/2024 11:01 AM EDT [facility] RDW 17.7(H) 11.0 - 15.0 [...] Resu lt [facility] [address] [place] [address], [place] [phone] documented in this encounter Visit Diagnoses Diagnosis Essential (primary) hypertension Unspecified essential hypertension Atherosclerotic heart disease of [place] coronary artery without angina pectoris Anemia, unspecified Chronic kidney disease, unspecified Hypothyroidism, unspecified Hyperlipidemia, unspecified documented in this encounter Care Teams Mold Press Operator Relationship Specialty Start Date End Date John Avina DO [address] [place] [phone] PCP - General Internal Medicine 06/10/24 documented as of this encounter
--- OUTSIDE RECORDS SUMMARY | 2025-04-08 17:38 | XMS_ITS | Encounter Summary ---
Author Organization [employer] Address [address] [place] [address] Care Team Providers Care Floor Finisher Helper Name Role Phone John Avina DO Primary Care Provider [phone] Encounter Details Date Type Department Care Team (Late st Contact Info) Description 08/19/2024 Lab Requisition [facility] - Main Lab 299 [facility] [place] [address] Lincoln Crespo MD [address] [place] [address] Essential (primary) hypertension; Atherosclerotic heart disease of [place] coronary artery without angina pectoris; Anemia, [...] Essential (primary) hypertension Atherosclerotic heart disease of [place] coronary artery without angina pectoris Anemia, unspecified Chronic kidney disease, unspecified BASIC METABOLIC PANEL Routine 08/20/2024 6:56 AM EDT Essential (primary) hypertension Atherosclerotic heart disease of [place] coronary artery without angina pectoris Anemia, [...] lt [facility] LAB [address] [place] [address], * (ABNORMAL) Complete blood count (08/20/2024 6:56 AM EDT) [facility] WBC 8.6 4.8 - 10.8 K/mcL LAB HEMETOLOGY METHOD 08/20/2024 9:58 AM [facility] LAB RBC 3.30(L) 3.80 - 4.80 M/mcL LAB HEMETOLOGY METHOD 08/20/2024 9[facility] Hemoglobin 10.9(L) 11.5 - [...] lt [facility] LAB [address] [place] [address], documented in this encounter Visit Diagnoses Diagnosis Essential (primary) hypertension Unspecified essential hypertension Atherosclerotic heart disease of [place] coronary artery without angina pectoris Anemia, unspecified Chronic kidney disease, unspecified documented in this encounter Care Teams Floor Finisher Helper Relationship Specialty Start Date End Date John Avina DO [address] [place] [phone] PCP - General Internal Medicine 06/10/24 documented as of this encounter
--- OUTSIDE RECORDS SUMMARY | 2025-04-08 17:39 | XMS_ITS | Encounter Summary ---
Author Organization [facility] Address [address] [place] [address] Care Team Providers Care Lidar Analyst Name Role Phone Jonh Avina DO Primary Care Provider [phone] Encounter Details Date Type Department Care Team (Late st Contact Info) Description 09/14/[address] [facility] - Main Lab [address] [facility] [place] [address] Lincoln Crespo MD [address] [place] [address] Essential (primary) hypertension; Atherosclerotic heart disease of [place] coronary artery without angina pectoris; Anemia, unspecified [...] Essential (primary) hypertension Atherosclerotic heart disease of [place] coronary artery without angina pectoris Anemia, unspecified COMPREHENSIVE METABOLIC PANEL Routine 09/15/2024 7:05 AM EDT Essential (primary) hypertension Atherosclerotic heart disease of [place] coronary artery without angina pectoris Anemia, unspecified documented in this encounter Results * (ABNORMAL) Complete blood count (09/15/2024 7:07 AM EDT) WBC 5.1 4.8 - 10.8 K/mcL LAB HEMETOLOGY METHOD 09/15/2024 12:07 PM EDT [facility] ([facility] LAB RBC 2.30(L) 3.80 - 4.80 M/mcL LAB HEMETOLOGY METHOD 09/15/2024 12:07 PM [facility] Hemoglobin 8.0(L) 11.5 - 16.0 g/dL LAB HEMETOLOGY METHOD 09/15/2024 12:07 PM [facility] LAB Hematocrit 24.4(L) 35.0 - 47.0 % LAB HEMETOLOGY METHOD 09/15/2024 12:07 PM [facility] LAB MCV 107.0(H) 79.0 - 98.0 FL LAB HEMETOLOGY METHOD 09/15/2024 12:07 PM [facility] LAB MCH 35.1(H) 27.0 - 32.0 pcg LAB HEMETOLOGY METHOD 09/15/2024 12:07 PM [facility] LAB MCHC 32.8 32.0 - 37.0 g/dL LAB HEMETOLOGY METHOD 09/15/2024 12:07 PM [facility] LAB RDW 19.0(H) 11.0 - 15.0 % LAB HEMETOLOGY METHOD 09/15/2024 12:07 PM [facility] LAB Platelets 141 130 - 400 K/mcL LAB HEMETOLOGY METHOD 09/15/2024 12:07 PM [facility] LAB MPV 9.2 7.0 - 11.0 FL LAB HEMETOLOGY METHOD 09/15/2024 12:07 PM [facility] NRBC 0.0 <1.0 % LAB HEMETOLOGY METHOD 09/15/2024 12:07 PM [facility] LAB NRBC Absolute 0.00 <0.10 K/mcL LAB HEMETOLOGY METHOD 09/15/2024 12:07 PM [facility] Blood Venous blood specimen / Unknown Venipuncture / Unknown 09/15/2024 7:07 AM EDT 09/15/2024 10:49 AM EDT us Lincoln Crespo MD LAB BLOOD ORDERABLES Final Resu lt [facility] [address] [place] [address], [place] [phone] * (ABNORMAL) Comprehensive metabolic panel (09/15/2024 7:05 AM EDT) Sodium 143 133 - 145 mmol/L LAB CHEMISTRY METHOD 09/15/2024 12:43 PM [facility] Potassium 3.6 3.5 - 5.5 mmol/L LAB CHEMISTRY METHOD 09/15/2024 12:43 PM [facility] Chloride 110 96 - 110 mmol/L LAB CHEMISTRY METHOD 09/15/2024 12:43 PM [facility] CO2 22 21 - 32 mmol/L LAB CHEMISTRY METHOD 09/15/2024 12:43 PM [facility] Anion Gap 11 3 - 11 LAB CHEMISTRY METHOD 09/15/2024 12:43 PM [facility] Glucose 90 70 - 100 mg/dL LAB CHEMISTRY METHOD 09/15/2024 12:43 PM [facility] BUN 49(H) 5 - 25 mg/dL LAB CHEMISTRY METHOD 09/15/2024 12:43 PM [facility] Creatinine 1.80(H) 0.50 - 1.10 mg/dL LAB CHEMISTRY METHOD 09/15/2024 12:43 PM [facility] LAB eGFR 29(L) >=60 mL/min/1. 73m2 LAB CHEMISTRY METHOD 09/15/2024 12:43 PM [facility] Comment:Calculation [...] unit/L LAB CHEMISTRY METHOD 09/15/2024 12:43 PM [facility] ALT (SGPT) 15 10 - 60 unit/L LAB CHEMISTRY METHOD 09/15/2024 12:43 PM T [facility] LAB Alkaline Phosphatase 56 42 - 121 unit/L LAB CHEMISTRY METHOD 09/15/2024 12:43 PM [facility] Total Protein 6.0 6.0 - 8.0 g/dL LAB CHEMISTRY METHOD 09/15/2024 12:43 PM [facility] Albumin 3.0(L) 3.2 - 5.0 g/dL LAB CHEMISTRY METHOD 09/15/2024 12:43 PM [facility] Total Bilirubin 0.5 0.0 - 1.4 mg/dL LAB CHEMISTRY METHOD 09/15/2024 12:43 PM [facility] Blood Venous blood specimen / Unknown Venipuncture / Unknown 09/15/2024 7:05 AM EDT 09/15/2024 10:50 AM EDT us Lincoln Crespo MD LAB BLOOD ORDERABLES Final Resu lt [facility] [address] [place] [address], documented in this encounter Visit Diagnoses Diagnosis Essential (primary) hypertension Unspecified essential hypertension Atherosclerotic heart disease of [place] coronary artery without angina pectoris Anemia, unspecified documented in this encounter Care Teams Lidar Analyst Relationship Specialty Start Date End Date John Avina DO [address] [place] [phone] PCP - General Internal Medicine 06/10/24 documented as of this encounter
== END 2025-04-08 14:01 | disposition home or self-care (01) ==
LOC: HO.HCS 13:32
PROVIDERS: PCP Internal Medicine; Visit Provider Internal Medicine Cardiovascular Disease
DX: I50.20 Unspecified systolic (congestive) heart failure (principal); I34.0 Nonrheumatic mitral (valve) insufficiency; I25.10 Atherosclerotic heart disease of native coronary artery without angina pectoris
CPT/HCPCS: 99214

== ENCOUNTER → 2025-04-08 13:32 | Outpatient (BNVA) | payer MEDICARE, SELFPAY | PROVIDERS: PCP Internal Medicine; Visit Provider Internal Medicine Cardiovascular Disease | DX: I34.0 Nonrheumatic mitral (valve) insufficiency (principal); I25.10 Atherosclerotic heart disease of native coronary artery without angina pectoris; I50.20 Unspecified systolic (congestive) heart failure | CPT/HCPCS: 99212 ==